=== PATIENT | male | born 1950 | race Caucasian/White ===

== ENCOUNTER 2017-08-04 09:00 | Outpatient (RCR) | payer MEDICARE, SELFPAY ==
--- NOTE | 2017-08-09 10:22 | HP.OTEVAL_ITS ---
Patient's Visit Information ANJEL LOPEZ is a 66 year old M, referred to Occupational Therapy by Bob Serna MD,, with a diagnosis of BLE lymphedema. Date of Evaluation: 08/04/17 Occupational Therapist: Carmen Pablo, DAISHAR/Morgan, CHT - Subjective Subjective: pt states he has had swelling for several years- pt states he just got a lift recliner and that sitting in the recliner has helped decrease his swelling. pt states he has aides that assist him with wraps to his LE. - Objective Objective/Observation: Pt states he has aids to assist with bathing and dressing in the AM and PM-. pt states staff does his laundry and cleaning- pt states meals are provided 3x a day- pt states he does use his lift recliner for sleeping. - Lymphedema (Circumferential Measure) Mid-foot: Right 23cm left 25cm Ankle: Right 30cm left 32cm Lower calf: Right 32cm left 35cm Largest calf: Right 48cm left 48cm Below knee: Right 45cm left 46cm - Lower Limb Functional Index Lower Extremity Functional Score: 7 - Goals Demonstrate adequate knowledge skin care/prec by 2nd week: Yes Demonstrate adequate knowledge therapeutic exercises by d/c: Yes Select approp compression garment w/donning/care/wear by d/c: Yes Voice need to replace compression garment every 4-6mo by dc: Yes - Rehabilitation General Assessment: pt demo. need for skilled lymphedema tx. and ed.. for pt to ind. mtg his lymphedema. Tx will focus on ed. pt on lymphedema mtg and compression devices to assist with mtg BLE swelling- pt was ed on compression device as medi, farrow wraps and lymphapress to assist pt in mtg. of his lymphedema- pt states the use of the pump would make it difficult for him to go to the bathroom and he is not interested in the use of this device at this time due to this reason. Rehabilitation Potential: Questionable - Anticipated Interventions Anticipated Interventions: Education re Diagnosis, Manual Lymph Drainage, Education re Life-long lymphedema Management, Education re Skin Care and Precautions, Education re Correct Donning Tech,Care&Wearing Sched Comp Garments , Caregiver Training, Home Program - Visit Plan Frequency: 1x/Week Duration: 3 Weeks General Plan: Tx will focus on ed. pt on lymphedema mtg and compression devices to assist with mtg BLE swelling- pt was ed on compression device as medi, farrow wraps and lympha-press vaso pump to assist pt in mtg. of his lymphedema- pt states the use of the pump would make it difficult for him to go to the bathroom and he is not interested in the use of this device at this time due to this reason. TEXT: Thank you for the opportunity to evaluate your patient. For Medicare and Medicare HMO plans, please review the plan of care and approve it. It will need to be FAXED BACK to us at [phone] for Medicare purposes. Please let me know if there are questions or concerns regarding this plan of care. Physician Signature: Date:
== END 2017-08-11 09:00 | disposition home or self-care (01) ==
LOC: OT 09:16
PROVIDERS: Visit Provider Surgery Vascular Surgery
DX: I89.0 Lymphedema, not elsewhere classified (principal)
CPT/HCPCS: 97166; 97530 ×2; G8978; G8979

== ENCOUNTER 2017-12-01 14:00 | Outpatient (RCR) | payer MEDICARE, SELFPAY ==
--- NOTE | 2017-10-15 13:08 | HP.OTEVAL_ITS ---
Patient's Visit Information ANJEL LOPEZ is a 66 year old M, referred to Occupational Therapy by Becka Hines, ZACKERY,BACILIO, with a diagnosis of Generalized weakness. Date of Evaluation: 10/15/17 Occupational Therapist: Ginger Leon - Subjective Subjective: Pt., Anjel, arrived noted he has been feeling weak and shaky. He is poor report of what may be causing weakness and PMHx but as session progressed he opened up more. Notes that thing caused weakness. He notes that he sometimes falls because he gets light headed and deals with depression. He explained he has gotten weaker over the last few months. He has had epilepsy since which is controlled by medications. Heexplained he has L hand pain from arthritis and has been diagosned with gout. He is R hand dominant. - Pain Left Hand 0 Pain Intensity Range: 10 - Objective Objective/Observation: Kyphotic, increased SOB with speaking,a nd increased tremors with intended movements. - ROM Shoulder: WFL Elbow: WFL Forearm: WFL Wrist: Flex R 0-66, L 0-63; ext R 0-36, L 0-59; increased L wrist pain all mvmts MP: WFL PIP: WFL DIP: WFL - Strength Shoulder: R 4-/5 L 3+/5 Elbow: R 4/5, L 4/5 Forearm: WFL Linoleum Layer Apprentice: R 54, L 60 Lateral Pinch: R 14, L 11 Tripod Pinch: R 8 , L 7 Tip-to-Tip Pinch: R 8, L 9 - Sensation Thumb: R 3.22 L 3.84 Index: R 3.22 L 2.83 Middle: R 3.22 L 2.83 Ring: R 3.22 L 2.83 Little: R 3.22 L 3.84 - Movement Movement Comments: Increased shakiness. FInger to nose intact. Appears to potentially be realted to weakness at this time. Shakiness to be monitored. - DASH-Disabilities of Arm, Shoulder& Hand DASH Sum: 90 - Goals Goal:: Anjel to increase B client account assistant strength between 15-20 lbs through FMC and UE strengthening 2/3 trials 75% of the time to promote increase strength and endurance for ADL/IADls by time of d/c. Goal:: Anjel to related 1/10 pain in L hand with functional movement to promote increased ROM and strength 4/5 trials 80% of the time by d/c. Goal:: Anjel to be mod I to practice energy conservation and joint protection techniques 4/5 trials to promote increased participation in ADL/IADLs by time of d/c. Goal:: Anjel to be mod I to complete HEP for B UE and hands to promote increased FMC, strength, adn endurance to promote participation in fx activities 2/3 trials 75% time by d/c. Goal:: Anjel to be (i) to complete correct use and placement of w/w during ADL/ IADLs with 1-2x cues to promote balance, safety, and participation in fx acitvities 4/5 trials 80% of the time by d/c. - Rehabilitation General Assessment: Anjel arrived for OT evaluation on this date. He has PT evaulation next week. He presents with decreased endurance and increased fatigue with fx activities. He needed w/c transport to OT area after walking 50 feet and becoming increasingly SOB and fatigued. His ROM and strength are WFL but strength is decreased as exhibited through shakiness. Needed assistance completing DASH secondary to shakiness. He notes handwriting is very difficult at this time. [place] [facility] [facility] staff help with medication management, ADLs , and IADls as needed. He no longer cooks, or drives. He notes he has fallen a few times the past few months and uses w/w for ambulation. OT to work on increasing functional activity tolerance to promote increased ROM and strength for ADL/IADls. Rehabilitation Potential: Good - Anticipated Interventions Anticipated Interventions: A/AAROM/PROM, Strengthening, Edema Control, Modalities, Orthoses, Joint Protection/Energy Conservation, Fine Motor Coord/ Braden, ADL Training, Education re assistive Equipment, Home Program - Visit Plan Frequency: 1-2x /Week Duration: 4 Weeks General Plan: Anjel to recieve OT services to promote increased (I) for ADl/ IADls. Ot to work on increasing UE strengthening to promote endurance and functional activities tolerated. Modalities to be used as needed to help decrease L hand pain. TEXT: Thank you for the opportunity to evaluate your patient. For Medicare and Medicare HMO plans, please review the plan of care and approve it. It will need to be FAXED BACK to us at [phone] for Medicare purposes. Please let me know if there are questions or concerns regarding this plan of care. Physician Signature: Date:
--- NOTE | 2017-10-19 15:47 | HP.PTEVAL ---
Patient's Visit Information ANJEL LOPEZ is a 66 year old M referred to Physical Therapy by ZACKERY De Luna NP.THOWAR with a diagnosis of weakness. Date of Evaluation: 10/19/17 Physical Therapist: Lesley Dockery - Visit Plan Frequency: 2x /Week Duration: 4 Weeks Plan: Focus on LE strength, balance and functional mobility - Subjective Subjective: Patient reports that he has had home therapy but not outpatient physical therapy. Feels like he has a hard time getting around. He is tired and winded but has no pain. Lives in [facility]- lives on the 3rd floor and takes the elevator. Lives alone with his cat. Uses the cafeteria and has people that come in and help- do laundry and cleaning. Plans to use the van or his sister can take him to/from apt but he is not driving. Reports using the walker for a long time- over 10 years. Uses it in his apt as well as when he goes into the community. Does not have problems negotiating his apartment but gets winded when he goes to far. Goals for therapy is to be able to walk on his own. Fell 4-5 x in 2017. Has not fallen in 2018. Reports falling backwards mostly. Has a shower seat and has an aide who helps him shower. Had some images taken last year- had ultrasounds on bilateral LE yesterday. PMHx/Meds: in the chart - Objective Posture: POOR- FH, RS- can not correct with verbal or tactile cueing. Gait: severly antalgic- FWW very far in front of him shuffling pattern. ROM: WFL. Strength: Ankle: 4/5, Knee: 5/5, Hip: 4/5 throughout Core: poor. Balance: poor- standing and dynamic - Goals Goal 1:: Patient will be I with HEP and progression Goal Time Frame: 4-6 Weeks Goal 2:: Patient will ambulate >300 feet with FWW safely without SOB Goal Time Frame: 4-6 Weeks Goal 3:: Patient will demo 5/5 strength in LE Goal Time Frame: 4-6 Weeks Goal 4:: Patient will demo fair standing balance Goal Time Frame: 4-6 Weeks - Rehabilitation Potential Physical Therapy Diagnosis: Patient presents with hypomobility- he has decreased strength and muscular endurance leading to abnormal gait, poor balance and functional mobility deficits - Anticipated Interventions Patient/Client Instruction: Educate patient on: Benefits of Fitness Program For the Purpose of:: To improve performance and independence with ADL's Therapeutic Exercise to Include: Strength training, Endurance training, Balance training, Coordination, Postural training, Flexibilty training, Gait and locomotor training, Dynamic Lumbar Stabilization For the Purpose of:: To improve muscle performance and motor function Thank you for the opportunity to evaluate your patient. For Medicare and Medicare HMO plans, please review the plan of care and approve it. It will need to be FAXED BACK to us at [phone] for Medicare purposes. Please let me know if there are questions or concerns regarding this plan of care. Physician Signature: Date:
--- NOTE | 2017-11-17 14:46 | OTREVAL_ITS ---
Becka Hines, STUDENT FINANCE SPECIALISTVinayC, BACILIO It has been my pleasure to treat ANJEL LOPEZ over the last 8 visits for Generalized weakness. Please see the progress note below for an update on the occupational therapy plan of care! Subjective: Pt. arrived and noted he was voted Jensen[employer] Edward!. Noted he just had OT today. 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 is able to complete 150 Ft. He is progressing with strengthening tasks at this time. Plan Frequency: 1-2x /Week Duration: 4 Weeks Plan: continue POC or 2x next week, 1x folllowing week. Work on increasing compliance with theraband exercises. He will continue to promote increased ROM and strength. Goals - Goals Goal:: Anjel to increase B dry paste supervisor strength between 15-20 lbs through FMC and UE strengthening 2/3 trials 75% of the time to promote increase strength and endurance for ADL/IADls by time of d/c. Goal:: Anjel to related 1/10 pain in L hand with functional movement to promote increased ROM and strength 4/5 trials 80% of the time by d/c. Goal:: Anjel to be mod I to practice energy conservation and joint protection techniques 4/5 trials to promote increased participation in ADL/IADLs by time of d/c. Goal:: Anjel to increase B UE strength to 4+/5 to promote increased B UE strength and endurance for ADl/IADLs by time of d/c. Goal:: Anjel to be mod I to complete HEP for B UE and hands to promote increased FMC, strength, adn endurance to promote participation in fx activities 2/3 trials 75% time by d/c. Goal:: Anjel to be (i) to complete correct use and placement of w/w during ADL/ IADLs with 1-2x cues to promote balance, safety, and participation in fx acitvities 4/5 trials 80% of the time by d/c. Anticipated Interventions Anticipated Interventions: A/AAROM/PROM, Strengthening, Edema Control, Modalities, Orthoses, Joint Protection/Energy Conservation, Fine Motor Coord/ Braden, ADL Training, Education re assistive Equipment, Home Program Please do not hesitate to contact me at [phone] by phone or Fax: if you have questions or concerns regarding this new plan of care! Sincerely, Ginger Leon
--- NOTE | 2017-11-24 10:24 | HP.PTDCSUM ---
HP - PT D/C Summary It has been my pleasure to treat ANJEL LOPEZ under orders from Becka Hines, ZACKERY, BACILIO for the diagnosis of weakness for a total of 7 visit(s). Discharge Date: Please see the following information for a summary of their discharge status. - Subjective Subjective: patient reports no falls lately and he feels stronger. Is still working with OT but feels he can do PT indpendently at home. no pain today. - Objective Objective/Function: Posture: FH, RS, Increased kyphosis. Gait: antalgic- shuffling gate- wide ALEX. HR/TR: able. balance: weight shifting. Strength: Ankle: 5/5, knee: 5/5, hip: 4+/5 - Goals Goal 1:: Patient will be I with HEP and progression Goal Progress: Goal Met Goal 2:: Patient will ambulate >300 feet with FWW safely without SOB Goal Progress: Progressing Goal 3:: Patient will demo 5/5 strength in LE Goal Progress: Progressing Goal 4:: Patient will demo fair standing balance Goal Progress: Progressing - Plan Plan: Discharge to I HEP - D/C Information If there are questions or concerns regarding this patient's physical therapy, please feel free to call me at [phone]. Thank you for the referral of this patient. Sincerely, Lesley Dockery
--- NOTE | 2017-12-01 14:37 | HP.OTDCSUM ---
HP - OT D/C Summary It has been my pleasure to treat ANJEL LOPEZ under orders from Becka Hines, ZACKERY, BACILIO for the diagnosis of Generalized weakness for a total of 11 visit(s). Please see the following information for a summary of their discharge status. - Objective Objective/Function: Reassessment completed today. He has progressed with therapy from time of evaluation and meant some goals.Strength measurements are as follows: shoulder R 4/5, L 4-/5, ; biceps R 3+/5, L 3+/5; Triceps R 4+/5, L 4+/5. Strength assessment for hands as follows: boiler blower R 70, L 54; lateral R 10, L 10; three jaw R 7, L 6; tip pinch R 6, L 6. ROM is WFL. He appears to present with some CMC arthitis of L thumb and presents with decreased strength as results when it is aggrevating him. Pain is minimal at this time and consisently over past few sessions. Pt. reported feeling the following with monofilament test: R 2nd 2.83, 3rd 2.83, 4th 2.83, 5th 2.83, thumb 3.22; L 2nd 2.83, 3rd 2.83, 4th 2.83, 5th 3.22, thumb 2.83. - Goals Patient Goals: Regain Mobility, Regain Strength, Decrease Pain, Improve Fine Motor Skills, Use Hand/Wrist/Arm Normally Again, Increase ROM, Be More Independent in ADLS, Resume Former Household Responsibilities (Cooking,Cleaning,Yard, etc.), Resume Hobbies Goal:: Anjel to increase B boiler blower strength between 15-20 lbs through FMC and UE strengthening 2/3 trials 75% of the time to promote increase strength and endurance for ADL/IADls by time of d/c. Goal:: Anjel to related 1/10 pain in L hand with functional movement to promote increased ROM and strength 4/5 trials 80% of the time by d/c. Goal:: Anjel to be mod I to practice energy conservation and joint protection techniques 4/5 trials to promote increased participation in ADL/IADLs by time of d/c. Goal:: Anjel to increase B UE strength to 4+/5 to promote increased B UE strength and endurance for ADl/IADLs by time of d/c. Goal:: Anjel to be mod I to complete HEP for B UE and hands to promote increased FMC, strength, adn endurance to promote participation in fx activities 2/3 trials 75% time by d/c. Goal:: Anjel to be (i) to complete correct use and placement of w/w during ADL/IADLs with 1-2x cues to promote balance, safety, and participation in fx acitvities 4/5 trials 80% of the time by d/c. - Plan Plan: Pt. to be d/c'd today. He is to call with questions/concerns. He is to continue HEP to promote and maintain strength and endurance. He continues to have increased SOB and is to monitor and talk to doctor if he feels it is getting sereve enough. He is to continue HEP and walking to promote decreased SOB and promote increased endurance. - D/C Information If there are questions or concerns regarding this patient's occupational therapy, please fell free to call me at [phone]. Thank you for the referral of this patient. Sincerely, Ginger Leon
== END 2017-12-01 19:00 | disposition home or self-care (01) ==
LOC: OT 14:00
PROVIDERS: Visit Provider Nurse Practitioner Adult Health
DX: R41.89 Other symptoms and signs involving cognitive functions and awareness (principal); M62.81 Muscle weakness (generalized); M40.209 Unspecified kyphosis, site unspecified; R06.09 Other forms of dyspnea
CPT/HCPCS: 97110; 97162; 97166; 97530; G8978; G8979

== ENCOUNTER → 2018-03-31 10:50 | Outpatient (CLI) | payer MEDICARE, MEDICAID, SELFPAY ==
[2018-03-31 11:00] VITALS: PULSE 100; PULSE 119; PULSE 123; PULSE 140; PULSE 143; PULSE 147; PULSE 153; O2SAT 91; O2SAT 95; O2SAT 96; O2SAT 97
--- NOTE | 2018-03-31 13:50 | WT_ITS ---
PSN 6 Minute Walk Test - 6 Minute Walk Test 6 Minute Walk Test: 6 Minute Walk Test PSN:6-Minute Walk Test Start: 03/31/18 11: 19 Freq: Status: Active Protocol: RESP.6MINW Document 03/31/18 11:00 AMARIS (Rec: 03/31/18 11:23 JLA [id number]) 6 Minute Walk Test Date Performed 03/31/18 Time Performed 11:00 Height 5 ft 3 in Weight: 117.934 kg Weight in Pounds 260.[address]: Guy Harris Assistive device used: Walker Pre-test Oxygen Delivery Method Room Air Pulse Ox (%) 96 Pulse Rate (60-100 beats/min) 100 Dyspnea Spencer Scale (0-10) 3 Exertion Spencer Scale (6-20) 6 1st minute Oxygen Delivery Method Room Air Pulse Ox (%) 91 Pulse Rate (60-100 beats/min) 123 H 2nd minute Oxygen Delivery Method Room Air Pulse Ox (%) 95 Pulse Rate (60-100 beats/min) 140 H Number of Rests Taken 1 Reported Symptoms Increased Work of Breathing 3rd minute Oxygen Delivery Method Room Air Pulse Ox (%) 96 Pulse Rate (60-100 beats/min) 143 H Number of Rests Taken 1 4th minute Oxygen Delivery Method Room Air Pulse Ox (%) 96 Pulse Rate (60-100 beats/min) 147 H Number of Rests Taken 1 5th minute Oxygen Delivery Method Room Air Pulse Ox (%) 97 Pulse Rate (60-100 beats/min) 143 H 6th minute Oxygen Delivery Method Room Air Pulse Ox (%) 95 Pulse Rate (60-100 beats/min) 153 H Dyspnea Spencer Scale (0-10) 3 Exertion Spencer Scale (6-20) 15 Post-test Oxygen Delivery Method Room Air Pulse Ox (%) 96 Pulse Rate (60-100 beats/min) 119 H Full Laps Walked 4 Partial Lap, Number of Tiles Walked 0 Total Distance Walked (ft) 236 - Interpretation Interpretation: The patient was able to ambulate only 236 feet over the course of 6 minutes on room air with the assistance of a walker and for breaks. The patient experienced significant desaturation as low as 91% with persistent tachycardia throughout testing. Patient's peak heart rate was noted at 153 bpm. These findings are consistent with a cardiovascular limitation to exercise tolerance. - Recommendations Recommendations: No supplemental oxygen is indicated at this time. Patient would benefit from cardiovascular evaluation.
== END ==
PROVIDERS: Visit Provider Internal Medicine Critical Care Medicine
DX: E66.9 Obesity, unspecified (principal); R06.09 Other forms of dyspnea
CPT/HCPCS: 94618

== ENCOUNTER → 2018-08-15 12:22 | Outpatient (CLI) | payer MEDICARE, SELFPAY | PROVIDERS: Family Provider Nurse Practitioner Adult Health; PCP Nurse Practitioner Adult Health; Visit Provider Internal Medicine Critical Care Medicine | DX: G47.19 Other hypersomnia (principal) | CPT/HCPCS: 94762 ==

== ENCOUNTER → 2018-10-06 14:56 | Outpatient (CLI) | payer MEDICARE, MEDICAID, SELFPAY ==
--- NOTE | 2018-10-06 14:58 | ECHOCS_ITS ---
Reason For Study: DYSPNEA/SOB Procedure This was a 2D Doppler, Color Flow transthoracic echocardiogram. The study was technically difficult. Exam performed with patient in supine position. Contrast injection was performed. Exam performed in department. Left Ventricle Normal LV size. Left ventricular systolic function is normal. The estimated ejection fraction is 65 %. No evidence for diastolic dysfunction. No regional wall motion abnormalities noted. Right Ventricle Mildly dilated right ventricle. Normal systolic function. Atria Normal left atrium. Normal right atrium. No doppler evidence for ASD. Mitral Valve There is no mitral annular calcification. Normal mitral valve. Tricuspid Valve Normal tricuspid valve. Trivial tricuspid valve insufficiency. Unable to estimate RV systolic pressure/pulmonary artery pressure due to technically difficult study. Aortic Valve The aortic valve is not well visualized. Pulmonic Valve The pulmonic valve is not well visualized. Great Vessels Normal sized aortic root. Pericardium/Pleural No pericardial effusion. Medication 22 gauge I.V. with prn adaptor inserted into right arm. Diluted definity 4.5ml given slow IV push to enhance endocardial definition. MMode/2D Measurements & Calculations LVIDd: 4.1 cm IVSd: 0.97 cm Ao root diam: 3.2 cm LVIDs: 2.8 cm LVPWd: 0.92 cm RVDd: 4.5 cm FS: 31.2 % LAV(MOD-bp): 32.8 ml LVAd ap4: 22.6 cm2 SV(MOD-sp4): 31.9 ml LAV(MOD-bp) Indexed: 16.3 ml/m2 EDV(MOD-sp4): 58.3 ml LAV(MOD-sp2): 25.8 ml EDV(sp4-el): 59.8 ml LAV(MOD-sp4): 35.4 ml LVAs ap4: 14.1 cm2 ESV(MOD-sp4): 26.4 ml ESV(sp4-el): 27.8 ml EF(MOD-sp4): 54.7 % EF(sp4-el): 53.5 % SV(sp4-el): 32.0 ml LA A4 area: 16.3 cm2 LA dimension(2D): 3.5 cm RA A4 area: 15.4 cm2 Time Measurements MV dec time: 0.17 sec Doppler Measurements & Calculations MV E max abiel: 58.4 cm/sec Lat Peak E' Abiel: 11.6 cm/sec Med Peak E' Abiel: 8.3 cm/sec MV A max abiel: 73.0 cm/sec E/E' lat: 5.0 E/E' med: 7.1 MV E/A: 0.80 Ao V2 max: 121.2 cm/sec LV V1 max: 101.3 cm/sec PA V2 max: 112.2 cm/sec Ao max P.9 mmHg LV V1 max P.1 mmHg Interpretation Summary The study was technically difficult. Contrast injection was performed. Left ventricular systolic function is normal. The estimated ejection fraction is 65 %. Mildly dilated right ventricle. Trivial tricuspid valve insufficiency. Unable to estimate RV systolic pressure/pulmonary artery pressure due to technically difficult study. No evidence for diastolic dysfunction. Ordering Physician: Marian Tomas Referring Physician: Marian Tomas Performed By: Kristy Bloom RDCS
== END ==
PROVIDERS: Family Provider Nurse Practitioner Adult Health; PCP Nurse Practitioner Adult Health; Referring Provider Nurse Practitioner Acute Care; Visit Provider Nurse Practitioner Acute Care
DX: R06.02 Shortness of breath (principal)
CPT/HCPCS: 93306; Q9957; A4216; C8929

== ENCOUNTER 2018-11-10 12:04 | Emergency (ER) | payer MEDICARE, SELFPAY ==
[2018-11-09 12:49] VITALS: BMI 42.7
[2018-11-10 12:05] VITALS: BP 141/85; PULSE 102; RESP 16; TEMP 36.9; O2SAT 91; BMI 44.2
--- NOTE | 2018-11-10 13:00 | CT_ITS ---
STUDY: CT BRAIN WITHOUT CONTRAST REASON FOR EXAM: Male, 68 years old. Increased weakness and fatigue. Near syncopal episode. History of epilepsy. History of colon carcinoma. RADIATION DOSAGE (If Supplied By Facility): CTDIvol = ( 44.99 ) mGy, DLP = ( 829.85 ) mGycm TECHNIQUE: Transaxial CT imaging of the brain was performed without administration of intravenous contrast material. Individualized dose optimization techniques were used for this CT. COMPARISON: Comparison is made with prior study dated November 05, 2016. FINDINGS: Normal soft tissue structures. Normal calvarium. There is disproportionate enlargement of the lateral and third ventricles, as compared to the extra-axial spaces. The findings suggest normal pressure hydrocephalus (NPH). There are areas of decreased attenuation within the white matter tracts of the supratentorial brain, consistent with microvascular disease changes. Normal basal ganglia and thalami. Normal brainstem. There is mild cerebellar atrophy. There is no intracranial hemorrhage. There are no findings of an acute ischemic infarction. Normal visualized paranasal sinuses. CT/Brain/Head without Contrast IMPRESSION: Findings suggestive of normal pressure hydrocephalus. There has been essentially no change. Electronically Signed: Pieter Lynn MD at 14:18 EST , Service support ,
--- NOTE | 2018-11-10 13:00 | EKG12_ITS ---
Test Reason : GENERAL ILLNESS Blood Pressure : / mmHG Vent. Rate : 090 BPM Atrial Rate : 090 BPM P-R Int : 136 ms QRS Dur : 090 ms QT Int : 344 ms P-R-T Axes : 046 -36 027 degrees QTc Int : 420 ms Normal sinus rhythm Left axis deviation Minimal voltage criteria for LVH, may be normal variant Abnormal ECG Confirmed by CAROLINE MUNOZ, ANJU ([id number]), editorial specialist ALEXUS CANTOR ([id number]) on 11/14/2018 10:37:22 AM Referred By: PAMELLA Confirmed By:ANJU VELAZQUEZ MD
--- NOTE | 2018-11-10 13:00 | RAD_ITS ---
STUDY: X-RAY CHEST REASON FOR EXAM: Male, 68 years old. Hypoxia. TECHNIQUE: Single AP portable view of the chest. COMPARISON: Comparison is made with prior study dated April 08, 2017. FINDINGS: The lungs are clear and expanded. Scattered calcified granulomas. There is no demonstrated pleural abnormality. There is mild cardiac enlargement. Normal mediastinum and crissy. Normal visualized pulmonary arteries. There is atherosclerotic tortuosity of the aortic arch and descending thoracic aorta. There are diffuse degenerative changes of the visualized thoracic spine. Normal visualized ribs, clavicles, and shoulders. There is no demonstrated abnormality of the visualized soft tissue structures of the upper abdomen. RAD/Chest 1 View (Portable) IMPRESSION: Mild cardiomegaly. The lungs are clear. Electronically Signed: Pieter Lynn MD at 13:40 EST , Service support ,
[2018-11-10 13:28] LABS: Absolute Lymphocyte Count 2.17 X10^3/ul (0.83-4.51); Absolute Neutrophil Count 2.8 X10^3/uL (2.0-7.7); Basophil# 0.02 X10^3/uL; Basophil% 0.3 % (0-1); Eosinophil# 0.06 X10^3/uL; Hematocrit 41.4 % (40-54); Hemoglobin 13.5 g/dl (13.0-16.5); Lymphocyte # 2.17 X10^3/ul (4.0); Lymphocyte % 35.7 % (19-41); Mean Corp Hgb Conc 32.6 g/gl (32-36); Mean Corpuscular Hgb 31.4 pg (27.0-32.0); Mean Corpuscular Volume 96.3 fL (80-94); Mean Platelet Vol. 8.3 fl (6.2-12.0); Monocyte% 16.4 % (0-10); Neutrophil # 2.78 X10^3/uL (2.7-7.7); Neutrophil % 45.8 % (47-70); Platelet Count 132 K/mm3 (150-450); RBC Distribution Width CV 13.6 % (11.6-14.6); RBC Distribution Width SD 47.3 fl (35.1-43.9); White Blood Count 6.1 K/mm3 (4.4-11.0)
[2018-11-10 13:29] LABS: POSITIVE COUNT NO; POSITIVE DIFFERENTIAL NO; POSITIVE MORPHOLOGY NO
[2018-11-10 13:50] LABS: Anion Gap 9 (5-15); BUN 16 mg/dL (7-18); BUN/Creat Ratio 19.7 RATIO (10-20); Calcium,Total 9.3 mg/dL (8.5-10.1); Chloride 107 mmol/L (98-107); Creatinine, Serum 0.81 mg/dL (0.70-1.30); EST Glomerular Filtration Rate 100 mL/min (>60); Est Glom Filt Rate - Afr Amer 121 mL/min (>60); Estimated Creatinine Clearance 69.27 ml/min; Glucose 108 mg/dL (74-106); Sodium Level 147 mmol/L (136-145)
[2018-11-10 14:37] VITALS: BP 117/76; PULSE 69; RESP 15; O2SAT 96
[2018-11-10 14:39] LABS: Bacteria 0 SEEN /hpf (None Seen); Mucous, Urine 0 SEEN /hpf (<or=2+); Red Blood Cells-Urine 0 SEEN /hpf (0-5); Squamous Epithelial Cells - UA 0 SEEN /hpf (0-5); White Blood Cells 0 SEEN /hpf (0-5)
[2018-11-10 14:41] LABS: Color, Urine Yellow (Yellow); Glucose, Dipstick Normal (Normal); Ketone-Dipstick Negative (Negative); Leukocyte Esterase-Dipstick Negative /ul (Negative); Nitrite-Dipstick Negative (Negative); Occult Blood-Urine Negative /ul (Negative); Protein-Dipstick Negative (Negative); Urine Bilirubin Dipstick Negative (Negative); Urine Clarity Clear (Clear); Urine Urobilinogen Normal (Normal)
--- NOTE | 2018-11-10 15:16 | ED.VISSUMM ---
- ER Visit Summary Date of Service: 11/10/18 Chief Complaint: Weakness History of Present Illness: The patient is a 68 M who presents from [facility]. He planes of generalized weakness. He was also found to be tachycardic and he had some near syncope and nausea. His pulse ox was 90% on room air. The patient is full code. On arrival here, he has no complaints. Denies any pain. Denies cough or sputum. Denies fevers. Denies any GI or urinary symptoms. Denies any recent seizures. Denies any injuries. Physical Examination: Afebrile and vital signs unremarkable. 96% on room air. Alert and oriented. No acute distress. Head and neck atraumatic. Heart regular rate and rhythm. Lungs clear. Abdomen soft and nontender. Moves all extremities. Test Results: KG showed sinus rhythm rate of 90. Chest x-ray showed cardiomegaly but no other acute findings. CT brain showed NPH, similar to previous CT in 2017. Platelets 132 otherwise CBC normal. Sodium 147 and glucose 108. Urinalysis normal. Troponin normal. Emergency Department Course and Treatment: Patient treated with fluid bolus while awaiting results. He was monitored. No hypoxia noted. Vitals stable. Patient had no further symptoms or changes on reevaluation. He is requesting discharge. His workup here was unremarkable. Vitals are normal and stable. No new or different symptoms. No other concerning findings. I believe the safest course of action is discharge back to his facility. Monitor for new or worsening issues. Return if any issues arise. Treatment Plan: As above Disposition: Discharge Impression: 1. Generalized weakness This note was generated with [employer] dictation software. It may contain incorrect words, spelling, and punctuation that were not noted in review of the chart prior to signing ED Disposition - Plan for ED Patient: Referrals: Becka Hines, MERARY-C [Primary Care Provider] -
--- NOTE | 2018-11-10 15:20 | ED.DCSUM_ITS ---
- ER Visit Summary Date of Service: 11/10/18 Chief Complaint: Weakness History of Present Illness: The patient is a 68 M who presents from [facility]. He planes of generalized weakness. He was also found to be tachycardic and he had some near syncope and nausea. His pulse ox was 90% on room air. The patient is full code. On arrival here, he has no complaints. Denies any pain. Denies cough or sputum. Denies fevers. Denies any GI or urinary symptoms. Denies any recent seizures. Denies any injuries. Physical Examination: Afebrile and vital signs unremarkable. 96% on room air. Alert and oriented. No acute distress. Head and neck atraumatic. Heart regular rate and rhythm. Lungs clear. Abdomen soft and nontender. Moves all extremities. Test Results: KG showed sinus rhythm rate of 90. Chest x-ray showed cardiomegaly but no other acute findings. CT brain showed NPH, similar to previous CT in 2017. Platelets 132 otherwise CBC normal. Sodium 147 and glucose 108. Urinalysis normal. Troponin normal. Emergency Department Course and Treatment: Patient treated with fluid bolus while awaiting results. He was monitored. No hypoxia noted. Vitals stable. Patient had no further symptoms or changes on reevaluation. He is requesting discharge. His workup here was unremarkable. Vitals are normal and stable. No new or different symptoms. No other concerning findings. I believe the safest course of action is discharge back to his facility. Monitor for new or worsening issues. Return if any issues arise. Treatment Plan: As above Disposition: Discharge Impression: 1. Generalized weakness This note was generated with [employer] dictation software. It may contain incorrect words, spelling, and punctuation that were not noted in review of the chart prior to signing ED Disposition - Plan for ED Patient: Referrals: Becka Hines, MERARY-C [Primary Care Provider] -
--- NOTE | 2018-11-10 15:20 | ED.DEP ---
ED Disposition - Plan for ED Patient: Instructions: ED Weakness [facility] Referrals: Becka Hines, AGRICULTURAL AND FORESTRY SUPERVISOR-C [Primary Care Provider] -
--- NOTE | 2018-11-10 15:21 | DCINST.ED_ITS ---
ED Disposition - Plan for ED Patient: Instructions: ED Weakness [facility] Referrals: Becka Hines, BEFORE SCHOOL-C [Primary Care Provider] -
[2018-11-10 16:14] VITALS: RESP 18
== END 2018-11-10 16:15 | disposition home or self-care (01) ==
LOC: ED 13:42
PROVIDERS: Emergency Provider Emergency Medicine; Family Provider Nurse Practitioner Adult Health; PCP Nurse Practitioner Adult Health
DX: R53.1 Weakness (principal); R53.83 Other fatigue; R06.00 Dyspnea, unspecified; N40.0 Benign prostatic hyperplasia without lower urinary tract symptoms; E03.9 Hypothyroidism, unspecified; K21.9 Gastro-esophageal reflux disease without esophagitis; I50.9 Heart failure, unspecified; I51.7 Cardiomegaly
CPT/HCPCS: 70450; 71045; 80048; 81001; 84484; 85025; 93005; 99285; J7040; A4216

== ENCOUNTER → 2019-03-17 14:07 | Outpatient (CLI) | payer MEDICARE, SELFPAY ==
[2019-03-17 13:02] VITALS: BMI 43.0
[2019-03-17 15:03] LABS: Valproic Acid (Depakene) Level 66 ug/mL (50-100)
[2019-03-23 15:35] LABS: KEPPRA (LEVETIRACETAM) 30.4 ug/mL (10.0-40.0)
== END ==
PROVIDERS: Family Provider Nurse Practitioner Adult Health; PCP Nurse Practitioner Adult Health; Referring Provider Psychiatry & Neurology Neurology; Visit Provider Psychiatry & Neurology Neurology
DX: G40.019 Localization-related (focal) (partial) idiopathic epilepsy and epileptic syndromes with seizures of localized onset, intractable, without status epilepticus (principal)
CPT/HCPCS: 36415; 80164; 80177

== ENCOUNTER → 2019-04-12 06:35 | Outpatient (CLI) | payer MEDICARE, MEDICAID, SELFPAY ==
[2019-03-17 13:02] VITALS: BMI 43.0
--- NOTE | 2019-04-12 06:43 | ECHOCS_ITS ---
Reason For Study: Dyspnea/SOB Procedure This was a 2D Doppler, Color Flow transthoracic echocardiogram. Technically difficult due to patients body habitus. Patient had a hard time staying in position for testing. Contrast injection was used. The study was technically difficult. Contrast injection was performed. Exam performed in department. Left Ventricle Normal LV size. Left ventricular systolic function is normal. The estimated ejection fraction is 65 %. Diastolic function is indeterminate. No regional wall motion abnormalities noted. Right Ventricle Mildly dilated right ventricle. Normal systolic function. Atria Normal left atrium. Normal right atrium. No doppler evidence for ASD. Mitral Valve There is no mitral annular calcification. Normal mitral valve. Tricuspid Valve Normal tricuspid valve. Aortic Valve The aortic valve is not well visualized. Pulmonic Valve The pulmonic valve is not well visualized. Great Vessels The aortic root is not well visualized. Pericardium/Pleural No pericardial effusion. Medication Diluted definity 3ml given slow IV push to enhance endocardial definition. MMode/2D Measurements & Calculations LVIDd: 3.6 cm IVSd: 1.1 cm LAV(MOD-sp4): 37.9 ml LVIDs: 2.6 cm LVPWd: 0.98 cm FS: 29.5 % LA A4 area: 16.2 cm2 Time Measurements MV dec time: 0.24 sec Doppler Measurements & Calculations MV E max abiel: 64.0 cm/sec Lat Peak E' Abiel: 10.5 cm/sec Med Peak E' Abiel: 9.2 cm/sec MV A max abiel: 91.9 cm/sec E/E' lat: 6.1 E/E' med: 6.9 MV E/A: 0.70 MV V2 max: 101.1 cm/sec MV P1/2t max abiel: 72.2 cm/sec Ao V2 max: 123.5 cm/sec MV max P.1 mmHg MV P1/2t: 76.3 msec Ao max P.1 mmHg MV V2 mean: 52.4 cm/sec MV dec slope: 277.4 cm/sec2 MV mean P.3 mmHg MV V2 VTI: 22.0 cm MVA(P1/2t): 2.9 cm2 LV V1 max: 116.3 cm/sec PA V2 max: 94.4 cm/sec LV V1 max P.4 mmHg Interpretation Summary The study was technically difficult. Contrast injection was performed. Left ventricular systolic function is normal. The estimated ejection fraction is 65 %. Mildly dilated right ventricle. Diastolic function is indeterminate. Ordering Physician: Tate Perez Referring Physician: Tate Perez Performed By: Alfonso Cade RCS
--- NOTE | 2019-04-12 09:53 | STRESSREP_ITS ---
Stress Test Report Date: 04-12-19 Procedure: Pharmacologic stress nuclear imaging study Indications: Shortness of breath/dyspnea on exertion Consent: Per the patient Procedure: The patient underwent pharmacologic (Regadenoson) evaluation with a peak heart rate of 115 beats per minute (76 %predicted maximal heart rate) and a peak blood pressure of 138/72 mmHg. The baseline ECG demonstrated normal sinus rhythm. The peak pharmacologic ECG demonstrated with no obvious ECG changes. There were no cardiac dysrhythmias pretest, during pharmacologic infusion, or recovery. There was no complaint of chest discomfort during pharmacologic infusion or recovery. The examination was discontinued secondary to completion of protocol. Impression: 1. Pharmacologic (Regadenoson) evaluation 2. Peak pharmacologic ECG with no obvious ECG changes. 3. There were no cardiac dysrhythmias pretest, during pharmacologic infusion, or recovery. 4. Nuclear images pending Myocardial perfusion imaging study: Technique: The patient was injected with 14.7 millicuries of technetium 99m Cardiolite and subsequently rest SPECT Cardiolite nuclear imaging was obtained in the horizontal long, vertical long, and short axis views. The patient underwent pharmacologic (Regadenoson) evaluation with a peak heart rate of 115 beats per minute (76 % percent predicted maximal heart rate) and a peak blood pressure of 138/72 mmHg. The patient was injected with 44.6 millicuries of technetium 99m Cardiolite and subsequently stress SPECT Cardiolite nuclear imaging was obtained in the horizontal long, vertical long, and short axis views. A gated Cardiolite study at peak stress was obtained. Interpretation: Rest and stress SPECT Cardiolite nuclear imaging status post realignment, normalization, and attenuation correction demonstrate relative uniform tracer uptake and myocardial perfusion appearing within normal limits. There is end systolic thickening and brightening. The gated Cardiolite study demonstrates myocardial thickening and inward wall motion. The reported LVEF is 73 %. Impression: 1. Rest and stress SPECT Cardiolite nuclear imaging demonstrate relative uniform tracer uptake and myocardial perfusion appearing within normal limits. 2. The gated Cardiolite study reports an LVEF of 73 %. This note was generated with [employer] software. It may contain incorrect words, spelling, and punctuation that were not noted in checking the note before signing.
== END ==
PROVIDERS: Family Provider Nurse Practitioner Adult Health; PCP Nurse Practitioner Adult Health; Referring Provider Internal Medicine Cardiovascular Disease; Visit Provider Internal Medicine Cardiovascular Disease
DX: R07.9 Chest pain, unspecified (principal); R06.02 Shortness of breath; E78.00 Pure hypercholesterolemia, unspecified; I10 Essential (primary) hypertension
CPT/HCPCS: 78452; 93017; 93306; A9500; Q9957; A4216; C8929; J2785

== ENCOUNTER 2019-05-10 12:28 | Emergency (ER) | payer MEDICARE, MEDICAID, SELFPAY ==
[2019-03-17 13:02] VITALS: BMI 43.0
[2019-05-10 12:33] VITALS: BP 135/71; PULSE 98; RESP 16; TEMP 37; O2SAT 93; BMI 43.2
--- NOTE | 2019-05-10 12:53 | ED.DCSUM_ITS ---
- ER Visit Summary Date of Service: 05/10/19 Chief Complaint: Routine falls at the long-term and they were concerned because his ammonia level was elevated. History of Present Illness: The patient is a 68 M with normal pressure hydrocephalus and seizures. Reportedly patient with increased falls at the [facility]. He has been seen multiple times and has had multiple CAT scans in the past. He himself denies any complaints. I did speak to the nursing facility after I initially evaluated patient. Physical Examination: Older male no acute distress. Vital signs are stable and afebrile. No signs of trauma to his head. C-spine nontender. Lungs clear to auscultation. Heart regular rhythm no murmur. Abdomen is soft and nontender. Normal bowel sounds no peritoneal signs. Pelvic girdle intact. Extremities are nontender. He can move all 4 extremities. There is no deformity. The hips are not shortened or rotated. Patient has prosthetic lower extremities bilaterally. Neurologically is awake and alert and answering questions. Test Results: CBC shows a normal white count of 6. Hemoglobin 13. Electrolytes are unremarkable normal creatinine and gap. Liver enzymes are normal. Ammonia level is only 50. Emergency Department Course and Treatment: Repeat exam at 34 is unchanged and unremarkable. He will be discharged back to the nursing facility. Treatment Plan: Fall precautions at the long-term. Disposition: Discharge Impression: Acute falls This note was generated with [employer] dictation software. It may contain incorrect words, spelling, and punctuation that were not noted in review of the chart prior to signing ED Disposition - Plan for ED Patient: Referrals: Becka Hines, MERARY-C [Primary Care Provider] -
[2019-05-10 13:12] LABS: Absolute Lymphocyte Count 1.55 X10^3/uL (0.83-4.51); Absolute Neutrophil Count 3.6 X10^3/uL (2.0-7.7); Basophil# 0.05 X10^3/uL; Basophil% 0.8 % (0-1); Eosinophil# 0.09 X10^3/uL; Eosinophils% 1.4 % (0-5); Hemoglobin 13.2 g/dL (13.0-16.5); Lymphocyte # 1.55 X10^3/ul (4.0); Lymphocyte % 24.8 % (19-41); Mean Corp Hgb Conc 33.8 g/dL (32-36); Mean Corpuscular Hgb 33.2 pg (27.0-32.0); Mean Corpuscular Volume 98.2 fL (80-94); Mean Platelet Vol. 8.8 fl (6.2-12.0); Monocyte# 0.92 X10^3/uL; Monocyte% 14.7 % (0-10); NRBC Flagged by Analyzer 0 % (0-5); Neutrophil # 3.56 X10^3/uL (2.7-7.7); Neutrophil % 56.9 % (47-70); Platelet Count 151 K/mm3 (150-450); RBC Distribution Width SD 46.6 fl (35.1-43.9); Red Blood Count 3.97 M/mm3 (4.6-6.2); White Blood Count 6.3 K/mm3 (4.4-11.0)
[2019-05-10 13:30] LABS: AST(SGOT) 26 U/L (15-37); Alanine Aminotransfer ALT/SGPT 29 U/L (16-61); Albumin, Serum 3.1 g/dL (3.2-5.0); Alkaline Phosphatase 44 U/L (45-117); Anion Gap 4 (5-15); BUN 8 mg/dL (7-18); BUN/Creat Ratio 9.2 RATIO (10-20); Bilirubin, Direct 0.15 mg/dL (0.00-0.30); Calcium,Total 8.8 mg/dL (8.5-10.1); Chloride 111 mmol/L (98-107); Creatinine, Serum 0.87 mg/dL (0.70-1.30); EST Glomerular Filtration Rate 92 mL/min (>60); Est Glom Filt Rate - Afr Amer 111 mL/min (>60); Estimated Creatinine Clearance 64.49 ml/min; Globulin 3.2 g/dL (2.2-4.2); Glucose 131 mg/dL (74-106); Potassium 4.1 mmol/L (3.5-5.1); Protein, Total 6.3 g/dL (6.4-8.2); Sodium Level 145 mmol/L (136-145)
--- NOTE | 2019-05-10 15:35 | ED.DEP ---
ED Disposition - Plan for ED Patient: Disposition: Home or Assisted Living Instructions: FALL, Uncertain Cause Referrals: Becka Hines, RODENT EXTERMINATOR-C [Primary Care Provider] - As Needed Additional Instructions: Patient needs to have fall precautions. His blood count and chemistries were unremarkable. His liver enzymes were normal. His ammonia level was slightly elevated at 50 but that is not the reason why he is falling.
[2019-05-10 16:00] VITALS: BP 120/69; PULSE 88; RESP 16; O2SAT 97
[2019-05-10 16:01] VITALS: RESP 18
--- NOTE | 2019-05-10 16:14 | ED.RN ---
REPORT CALLED TO JUDE KAYE
== END 2019-05-10 16:14 | disposition home or self-care (01) ==
PROVIDERS: Emergency Provider Emergency Medicine; Family Provider Nurse Practitioner Adult Health; PCP Nurse Practitioner Adult Health
DX: R56.9 Unspecified convulsions (principal); G91.2 (Idiopathic) normal pressure hydrocephalus; Z91.81 History of falling
CPT/HCPCS: 80048; 80076; 82140; 85025; 99285; A4216

== ENCOUNTER → 2019-05-18 14:14 | Outpatient (CLI) | payer MEDICARE, MEDICAID, SELFPAY ==
[2019-05-10 12:33] VITALS: BMI 43.2
[2019-05-23 08:38] LABS: KEPPRA (LEVETIRACETAM) 30.3 ug/mL (10.0-40.0)
== END ==
PROVIDERS: Family Provider Nurse Practitioner Adult Health; PCP Nurse Practitioner Adult Health; Referring Provider Psychiatry & Neurology Neurology; Visit Provider Psychiatry & Neurology Neurology
DX: R56.9 Unspecified convulsions (principal)
CPT/HCPCS: 36415; 80177

== ENCOUNTER 2019-06-01 12:30 | Outpatient (RCR) | payer MEDICARE, SELFPAY ==
--- NOTE | 2019-02-02 10:00 | PN_ITS ---
REASON FOR REFERRAL: The Patient is a 68 year old male referred for a clinical assessment of the Patient?s cognitive communication abilities at [facility] on 02/02/2019 due to concerns for the Patients cognitive functioning (namely memory). The Patent reports a baseline poor memory, which may have deteriorated since his prior assessment (his report was less than clear as to concerns precipitating recommendations for assessment). The Patient demonstrated rather limited interactions throughout the assessment, with little emotional output; flat effect apparent. The Patient is ambulatory, though demonstrates difficulty with use of his front wheeled walker, frequently dragging his feet and becoming quickly short of breath; unable to see upcoming objects due to the significance of his kyphotic posture. 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 He currently resides at [facility]. MEDICAL HISTORY: Seizure disorder, colon cancer, depression, hyperlipidemia, benign essential hypertension, benign prostate hyperplasia, status post hip replacement. ADDITIONAL OBJECTIVE ASSESSMENT RESULTS: 11/10/2018 CT revealed findings suggestive of normal pressure hydrocephalus; essentially no change. COGNITIVE COMMUNICATION ASSESSMENT RESULTS: Abbreviated Mental Test ? 4 (AMT-4): 4 (normal) Assessment Test for Delirium & Cognitive Impairment (4AT): 0 (normal) Cognitive Log (Cog-Log): Hunt Index of [place] in Activities of Daily Livin/6 (low functioning) Bathin Dressin Toiletin Transferrin Continence: 0 Feedin Tricia ? Mariano Instrumental Activities of Daily Living Scale (IADL): 1/8 (low functioning) A. Ability to Use Telephone: 1 B. Shoppin C. Food Preparation: 0 D. Housekeepin E. Laundry: 0 F. Mode of Transportation: 0 G. Responsibility for Own Medications: 0 H. Ability to Handle Finances: 0 Cognitive-Linguistic Quick Test (CLQT): Attention: (Cognitive Domain Score: 155, Severity Rating: mild) Memory: (Cognitive Domain Score: 117, Severity Rating: moderate) Executive Functioning: (Cognitive Domain Score: 16, Severity Rating: moderate) Language: (Cognitive Domain Score: 24, Severity Rating: mild) Visuospatial Skills: (Cognitive Domain Score: 63, Severity Rating: mild) Clock Drawing: (Score: 10, Severity Rating: mild) Composite Severity Ratin.6 (mild) RESULTS OF THE EVALUATION: Cognitive communication assessment completed this date, with the Patient presenting with Cognitive communication deficit (R41.841) presumably attributed to baseline seizure disorders vs. undiagnosed progressive etiological factors that would likely require further medical workup. RECOMMENDATIONS: Will recommend continued skilled speech-language intervention targeting improved information encoding and retrieval through establishment of external compensatory strategy training; continual formal and informal assessment of the cognitive communication profile, with goal adjustment as clinically indicated. The Patient would likely benefit from further physical therapy intervention, as the Patients suboptimal use of his assistive device (his front wheeled walker would OFTEN stretch further and further in front of the Patient while ambulating), and would quickly fatigue. Complicating factors for intervention success include the lack of functional cognitive goals (the Patient was tasked to identify functional cognitive based domains to improve upon), as the Patient appears to have limited independence, and it is unclear as to if he desires a return to independent functioning (his responses were quite brief and lacked detail), though time constraints may have further complicated this lack of clarity. FUNCTIONAL OUTCOMES: OUTCOME 1: the Patient will utilize external memory devices to facilitate improved accurate independent memory encoding and retrieval during both structured and unstructured therapeutic tasks in 2 out of 3 therapeutic sessions. OUTCOME 2: the Patient will participate in further cognitive communication assessment to determine further need and appropriateness of therapeutic intervention targeting expressive / receptive communication and higher level cognitive functioning abilities. OUTCOME 3: goal adjustment as needed. Luigi Gregory M.A., CCC-KEYLINER MBSImP Certified, LSVT Certified [facility] Speech-Language Pathology Department [email or web address]
== END 2019-06-01 19:00 | disposition home or self-care (01) ==
LOC: SP 12:30
PROVIDERS: Family Provider Nurse Practitioner Adult Health; PCP Nurse Practitioner Adult Health; Referring Provider Nurse Practitioner Adult Health; Visit Provider Nurse Practitioner Adult Health
DX: R41.841 Cognitive communication deficit (principal)
CPT/HCPCS: 92507; 92523

== ENCOUNTER 2019-06-26 15:14 | Emergency (ER) | payer MEDICARE, MEDICAID, SELFPAY ==
[2019-06-26 15:16] VITALS: BP 136/78; PULSE 85; PULSE 87; RESP 15; TEMP 36.6; O2SAT 96; O2SAT 97; BMI 41.8
[2019-06-26 16:00] VITALS: BMI 41.8
--- NOTE | 2019-06-26 16:24 | CT_ITS ---
STUDY: CT BRAIN WITHOUT CONTRAST REASON FOR EXAM: Male, 68 years old. Increased tremors. RADIATION DOSAGE (If Supplied By Facility): CTDIvol = ( 20.80 ) mGy, DLP = ( 392.06 ) mGycm TECHNIQUE: Transaxial CT imaging of the brain was performed without administration of intravenous contrast material. Individualized dose optimization techniques were used for this CT. COMPARISON: Noncontrast CT brain November 10, 2018. FINDINGS: Normal soft tissue structures. Normal calvarium. There is stable moderate cerebral atrophy with widening of the extra-axial spaces and ventricular dilatation. There may be a cavum et vergae, an anatomic variant. Normal white matter tracts of the cerebral hemispheres. Normal basal ganglia and thalami. Normal brainstem. There is stable borderline to mild cerebellar atrophy. There is no intracranial hemorrhage. There are no findings of an acute ischemic infarction. Normal visualized paranasal sinuses. CT/Brain/Head without Contrast IMPRESSION: Stable chronic involutional changes of the brain. Normal pressure hydrocephalus not excluded. No acute intracranial pathology. Electronically Signed: Angel Raygoza MD at 17:25 EDT , Service support ,
[2019-06-26 17:04] LABS: Absolute Lymphocyte Count 2.23 X10^3/uL (0.83-4.51); Absolute Neutrophil Count 3.8 X10^3/uL (2.0-7.7); Basophil# 0.03 X10^3/uL; Basophil% 0.4 % (0-1); Eosinophil# 0.05 X10^3/uL; Eosinophils% 0.7 % (0-5); Hematocrit 44.7 % (40-54); Hemoglobin 14.9 g/dL (13.0-16.5); Lymphocyte # 2.23 X10^3/ul (4.0); Lymphocyte % 32.4 % (19-41); Mean Corp Hgb Conc 33.3 g/dL (32-36); Mean Corpuscular Hgb 31.8 pg (27.0-32.0); Mean Corpuscular Volume 95.5 fL (80-94); Mean Platelet Vol. 8.3 fl (6.2-12.0); Monocyte# 0.81 X10^3/uL; Monocyte% 11.8 % (0-10); NRBC Flagged by Analyzer 0 % (0-5); Neutrophil # 3.75 X10^3/uL (2.7-7.7); Neutrophil % 54.4 % (47-70); Platelet Count 186 K/mm3 (150-450); RBC Distribution Width CV 12.6 % (11.6-14.6); RBC Distribution Width SD 44.2 fl (35.1-43.9); Red Blood Count 4.68 M/mm3 (4.6-6.2); White Blood Count 6.9 K/mm3 (4.4-11.0)
[2019-06-26 17:15] LABS: Anion Gap 6 (5-15); BUN 11 mg/dL (7-18); BUN/Creat Ratio 13.3 RATIO (10-20); Calcium,Total 9.2 mg/dL (8.5-10.1); Chloride 103 mmol/L (98-107); Creatinine, Serum 0.83 mg/dL (0.70-1.30); EST Glomerular Filtration Rate 98 mL/min (>60); Est Glom Filt Rate - Afr Amer 118 mL/min (>60); Glucose 86 mg/dL (74-106); Potassium 3.9 mmol/L (3.5-5.1); Sodium Level 141 mmol/L (136-145)
[2019-06-26 17:44] VITALS: RESP 18
[2019-06-26 17:44] LABS: Bacteria 0 SEEN /hpf (None Seen); Mucous, Urine 0 SEEN /hpf (<or=2+); Red Blood Cells-Urine 0 SEEN /hpf (0-5); Squamous Epithelial Cells - UA 0 SEEN /hpf (0-5); White Blood Cells 0 SEEN /hpf (0-5)
[2019-06-26 18:07] LABS: Color, Urine Yellow (Yellow); Glucose, Dipstick Normal (Normal); Ketone-Dipstick 50 mg/dl (Negative); Leukocyte Esterase-Dipstick 25 /ul (Negative); Nitrite-Dipstick Negative (Negative); Occult Blood-Urine Negative /ul (Negative); Protein-Dipstick Negative (Negative); Specific Gravity, Urine 1.015 (1.002-1.030); Urine Bilirubin Dipstick Negative (Negative); Urine Clarity Clear (Clear); Urine Urobilinogen Normal (Normal)
--- NOTE | 2019-06-26 18:45 | ED.VISSUMM ---
- ER Visit Summary Date of Service: 06/26/19 Chief Complaint: Tremors History of Present Illness: The patient is a 68 M who presents with tremors that have been getting worse over the past several days. Patient states the tremors are mostly in his head. Patient states that he has had is been shaking more frequently. Patient was referred to the emergency department for further evaluation of this from his extended care facility. Patient denies any paresthesias or weakness. Patient denies any chest pain or shortness of breath. Patient denies any fevers or chills. Patient denies any nausea or vomiting. Physical Examination: Vital signs are stable. Patient is afebrile. Patient is in no acute distress. Oral mucosa is pink and moist. Neck is supple. Trachea is midline. There is no JVD noted. Heart was regular rate and rhythm. Lungs are clear and equal bilateral. Abdomen is soft. Bowel sounds are normal. There is no tenderness. There is no guarding noted. Skin is warm dry. Cranial nerves II through XII are intact. There are no focal motor or sensory deficits noted. There are minimal tremors noted of the head that resolve after a few seconds. Test Results: CT scan of the brain does not show any acute intracranial abnormality. There are chronic changes noted. CBC, basic metabolic profile, urinalysis were obtained and were all normal. Emergency Department Course and Treatment: Patient was advised of his CT results and his lab results. Patient was instructed to follow-up with his primary care physician and neurologist in 1 to 2 weeks. Patient understood and was agreeable with the plan. All questions were answered. Disposition: Discharge to extended care facility Impression: Tremors This note was generated with [employer] dictation software. It may contain incorrect words, spelling, and punctuation that were not noted in review of the chart prior to signing ED Disposition - Plan for ED Patient: Disposition: Non-Skill CT/Intermediate Care Diagnosis: Tremor Instructions: Essential Tremor Disorder Referrals: Becka Hines NP-C [Primary Care Provider] - 3-5 Days
[2019-06-26 19:03] VITALS: RESP 18
== END 2019-06-26 19:27 | disposition intermediate care facility (04) ==
PROVIDERS: Emergency Provider Emergency Medicine; Family Provider Nurse Practitioner Adult Health; PCP Nurse Practitioner Adult Health
DX: R25.1 Tremor, unspecified (principal); R51 Headache; R20.2 Paresthesia of skin; M10.9 Gout, unspecified
CPT/HCPCS: 70450; 80048; 81001; 85025; 99285; A4216

== ENCOUNTER 2019-06-29 07:49 | Emergency (ER) | payer MEDICARE, MEDICAID, SELFPAY ==
[2019-06-29 07:51] VITALS: BP 134/59; PULSE 72; RESP 16; TEMP 36.4; O2SAT 94; BMI 41.8
--- NOTE | 2019-06-29 08:08 | ED.VISSUMM ---
- ER Visit Summary Date of Service: 06/29/19 Chief Complaint: Dizzy History of Present Illness: The patient is a 68 M who presents from assisted living. He complains of some dizziness today but otherwise has no symptoms. He said he would not have come in to the ED, except the nurses there called EMS. They noticed a tremor today and called EMS because they were concerned for seizure. Patient has a history of grand mal seizures. Patient is denying seizure or loss of consciousness. He has been compliant with his medications. He was seen in this emergency department 3 days ago. He had a CT of his brain as well as basic labs and a urinalysis. Results were all unremarkable except for some possible NPH. He had a Keppra level done just over a month ago which was therapeutic. Patient denies any other new symptoms or complaints. Physical Examination: Afebrile and vital signs unremarkable. Patient is alert and oriented to month, place, and person. GCS 15. Cranial nerves grossly intact. Good strength and sensation, symmetric. He has an intention tremor in his bilateral upper extremities. Heart regular. Lungs clear. Abdomen soft and nontender. Skin is unremarkable. Test Results: None performed Emergency Department Course and Treatment: Patient has some mild dizziness. He said that is the only complaint he has. It does not bother him, and he would not have come to the ED for it. He was referred to the ED by nursing for possible seizure. He has a tremor. This is not a seizure. He has no generalized or focal seizure symptoms. No loss of consciousness. No tongue biting or incontinence. No injuries or trauma. He is compliant with his medications. He is therapeutic on his Keppra based on his recent labs. Furthermore, his recent laboratory studies, urinalysis, and CT showed nothing acute three days ago. I do not have any further diagnostic testing or therapies I can offer emergently. I believe he is appropriate for outpatient follow-up. Prior to discharge, we will check a PO challenge and have the patient ambulate. Pending no further complaints, issues, or concerns by him, myself, or nursing, he will be transferred back to his assisted living facility for outpatient follow-up. Treatment Plan: As above Disposition: Discharge Impression: 1. Tremor This note was generated with [employer] dictation software. It may contain incorrect words, spelling, and punctuation that were not noted in review of the chart prior to signing ED Disposition - Plan for ED Patient: Referrals: Becka Hines, COLD STORAGE WORKER-C [Primary Care Provider] -
--- NOTE | 2019-06-29 08:12 | ED.DEP ---
ED Disposition - Plan for ED Patient: Instructions: Essential Tremor Disorder Additional Instructions: Follow up with your primary care doctor for outpatient care.
== END 2019-06-29 09:02 | disposition home or self-care (01) ==
LOC: ED 08:10
PROVIDERS: Emergency Provider Emergency Medicine; Family Provider Nurse Practitioner Adult Health; PCP Nurse Practitioner Adult Health
DX: R25.1 Tremor, unspecified (principal); I10 Essential (primary) hypertension; E78.00 Pure hypercholesterolemia, unspecified; G47.33 Obstructive sleep apnea (adult) (pediatric); N40.0 Benign prostatic hyperplasia without lower urinary tract symptoms; G40.909 Epilepsy, unspecified, not intractable, without status epilepticus
CPT/HCPCS: 99284

== ENCOUNTER 2019-07-11 10:09 | Observation (INO) | payer MEDICARE, MEDICAID, SELFPAY ==
[2019-07-11] VITALS (10 sets, daily range): BP systolic 108–131; BP diastolic 53–74; PULSE 99–111; RESP 15–21; TEMP 37.1–38.3; O2SAT 92–98; BMI 43.7; BMI 43.8; BMI 41.4
--- NOTE | 2019-07-11 10:26 | ED.RN ---
PT ASKED ME TO CALL HIS SISTER LAURENT [phone]. CALL MADE TO LAURENT, SHE IS AWARE HE IS HERE.
--- NOTE | 2019-07-11 10:27 | ED.VIS.GEN ---
History of Present Illness Chief Complaint: Weakness Detail of Chief Complaint: Diarrhea, weakness, fall Informant: Patient Onset: Days Current Severity: Mild Maximum Severity: Mild Narrative: Patient presents from assisted living with generalized weakness and diarrhea for the past 3 days. He states staff reported that he had vomited once but he does not remember. He has had low-grade fevers. He states that today he stood up and his legs were very weak and he fell to the floor. He has an abrasion across the right buttock that was previously bleeding. He does complain of some mild right hip pain. - Past Medical History (1) Benign essential HTN Status: Chronic (2) Depression Status: Chronic (3) Pure hypercholesterolemia Status: Chronic (4) Sleep apnea Status: Chronic Past Medical History - Allergies and Home Meds Allergies/Adverse Reactions: Allergies aspirin Allergy (Verified 07/11/19 10:10) cant remember rxn nickel Allergy (Verified 07/11/19 10:10) Other oxcarbazepine [From Trileptal] Allergy (Verified 07/11/19 10:10) cant remember rxn Primary Care Physician: Becka Hines, HEAD OPERATOR-C [Primary Care Provider] - Prior records reviewed: Yes Past Medical History: - - Reviewed Surgical History: noncontributory Lives: - - Assisted living Smoking Status: Never smoker - Family History Maternal Family History: Family History (Last Reviewed 03/17/19 @ 13:18 by Carmen Mohan) Mother COPD (chronic obstructive pulmonary disease) CAD (coronary artery disease) Father Cancer Heart disease Myocardial infarction CAD (coronary artery disease) Aunt CAD (coronary artery disease) Myocardial infarction Family History: Reports: No pertinent history Review of Systems General: Reports: Fever. Denies: Chills Eyes: Denies: Visual changes - bilaterally ENT: Denies: Bilateral ear pain Cardiovascular: Denies: Chest pain Respiratory: Denies: Dyspnea, Cough Gastrointestinal: Reports: Diarrhea. Denies: Abdominal pain, Nausea, Vomiting Genitourinary: Denies: Dysuria Musculoskeletal: Reports: Extremity Pain Skin: Reports: Wounds Neurological: Denies: Headache Hematologic: Denies: Easy bruising Allergy: Denies: Uticaria Physical Exam Vital Signs/Narrative: Vital Signs Temp Pulse Resp BP Pulse Ox 07/11/19 10:13 99.3 F H 111 H 20 H 108/60 93 Inital Vital Signs reviewed: Yes General: Well nourished, Well developed Head: Normocephalic ENT: Moist mucous membranes Neck: Supple Cardiovascular: Regular rhythm, Tachycardia Respiratory: No distress, CTA bilaterally Abdomen: Soft, Nontender, Normal bowel sounds Back: - - Patient has a 20 cm long superficial abrasion across the right buttock. Extremities: Tenderness - Mild tenderness of the right hip, greater trochanter. Skin: - - Abrasion as above Neurological: Alert, Oriented x3 Psychological: Normal affect Diagnostic/Tx/Re-eval Impressions Hip/Pelvis X-Ray 07/11/19 10:40 IMPRESSION: Normal x-ray examination of the pelvis and hip after hemiarthroplasty. Electronically Signed: Kuldeep Louie MD at 11:06 EDT Tel , Service support , 07/11/19 10:40 HIP, UNI W/ Pelvis 2-3 Views [RAD] Stat Laboratory Results 07/11/19 07/11/19 07/11/19 10:40 10:40 10:40 WBC 6.6 RBC 4.47 L Hgb 14.3 Hct 43.7 MCV 97.8 H MCH 32.0 MCHC 32.7 RDW Std Deviation 45.6 H RDW Coeff of Ronna 12.7 Plt Count 140 L MPV 8.7 Immature Gran % (Auto) 0.300 Neut % (Auto) 67.3 Lymph % (Auto) 15.0 L [place] % (Auto) 16.2 H Eos % (Auto) 0.9 Baso % (Auto) 0.3 Absolute Neuts (auto) 4.5 Absolute Lymphs (auto) 0.99 Nucleated RBC % 0 Sodium 143 Potassium 4.0 Chloride 110 H Carbon Dioxide 29.0 Anion Gap 4 L BUN 11 Creatinine 0.81 Estim Creat Clear Calc 66.47 Est GFR (MDRD) Af Amer 121 Est GFR (MDRD) Non-Af 100 BUN/Creatinine Ratio 13.6 Glucose 115 H Calcium 8.6 Total Bilirubin 0.50 Direct Bilirubin 0.12 AST 32 ALT 27 Alkaline Phosphatase 45 Total Protein 6.7 Albumin 3.0 L Globulin 3.7 Urine Color Urine Clarity Urine pH Ur Specific [place] Urine Protein Urine Glucose (UA) Urine Ketones Urine Occult Blood Urine Nitrite Urine Bilirubin Urine Urobilinogen Ur Leukocyte Esterase Valproic Acid 44 L 07/11/19 13:06 WBC RBC Hgb Hct MCV MCH MCHC RDW Std Deviation RDW Coeff of Ronna Plt Count MPV Immature Gran % (Auto) Neut % (Auto) Lymph % (Auto) [place] % (Auto) Eos % (Auto) Baso % (Auto) Absolute Neuts (auto) Absolute Lymphs (auto) Nucleated RBC % Sodium Potassium Chloride Carbon Dioxide Anion Gap BUN Creatinine Estim Creat Clear Calc Est GFR (MDRD) Af Amer Est GFR (MDRD) Non-Af BUN/Creatinine Ratio Glucose Calcium Total Bilirubin Direct Bilirubin AST ALT Alkaline Phosphatase Total Protein Albumin Globulin Urine Color Yellow Urine Clarity Clear Urine pH 8.0 Ur Specific [place] 1.010 Urine Protein Negative Urine Glucose (UA) Normal Urine Ketones Negative Urine Occult Blood Negative Urine Nitrite Negative Urine Bilirubin Negative Urine Urobilinogen Normal Ur Leukocyte Esterase Negative Valproic Acid - Medical Decision Making Patient was given IV fluids here. Wound on the right buttock was cleansed and dressed. At this time we do not see definitive source of infection. He has had no further diarrhea here. I am concerned about his degree of weakness after 3 days of diarrhea. He is unable to support his weight today and fell. Patient remains slightly tachycardic with a heart rate of 108. I will speak with hospitalist regarding observation overnight for hydration and evaluation by physical therapy. I discussed with the patient that he may require higher level of care if he is not able to get up and ambulate to the level where he would be safe at assisted living. He voices understanding and agreement. ED Disposition - Plan for ED Patient: Disposition: Acute Care Hospital [facility] Diagnosis: Weakness, Fall, Diarrhea Referrals: Becka Hines, HEAD OPERATOR-C [Primary Care Provider] -
--- NOTE | 2019-07-11 10:40 | RAD_ITS ---
STUDY: X-RAY - PELVIS AND RIGHT HIP REASON FOR EXAM: Male, 68 years old. Fall, hip pain. TECHNIQUE: 3 views of the pelvis and hip. COMPARISON: None. FINDINGS: There is a non-specific bowel gas pattern. Normal visualized soft tissue structures. Normal bilateral iliac wings, sacroiliac joints and visualized sacrum. Normal bilateral superior and inferior pubic rami. Normal pubic symphysis. Normal bilateral ischial tuberosities. Status post right hip hemiarthroplasty. The prosthesis appears located. No ostial lysis to suggest loosening. Normal acetabulum. Normal hip joint. RAD/HIP, UNI W/ Pelvis 2-3 Views IMPRESSION: Normal x-ray examination of the pelvis and hip after hemiarthroplasty. Electronically Signed: Kuldeep Louie MD at 11:06 EDT Tel , Service support ,
[2019-07-11 10:52] LABS: Absolute Lymphocyte Count 0.99 X10^3/uL (0.83-4.51); Absolute Neutrophil Count 4.5 X10^3/uL (2.0-7.7); Basophil# 0.02 X10^3/uL; Basophil% 0.3 % (0-1); Eosinophil# 0.06 X10^3/uL; Eosinophils% 0.9 % (0-5); Hematocrit 43.7 % (40-54); Hemoglobin 14.3 g/dL (13.0-16.5); Lymphocyte # 0.99 X10^3/ul (4.0); Mean Corp Hgb Conc 32.7 g/dL (32-36); Mean Corpuscular Volume 97.8 fL (80-94); Mean Platelet Vol. 8.7 fl (6.2-12.0); Monocyte# 1.07 X10^3/uL; Monocyte% 16.2 % (0-10); NRBC Flagged by Analyzer 0 % (0-5); Neutrophil # 4.46 X10^3/uL (2.7-7.7); Neutrophil % 67.3 % (47-70); Platelet Count 140 K/mm3 (150-450); RBC Distribution Width CV 12.7 % (11.6-14.6); RBC Distribution Width SD 45.6 fl (35.1-43.9); Red Blood Count 4.47 M/mm3 (4.6-6.2); White Blood Count 6.6 K/mm3 (4.4-11.0)
[2019-07-11] MEDS: 0.9% Normal Saline 1,000 ML 150 ML IV (11:08)
[2019-07-11 11:28] LABS: AST(SGOT) 32 U/L (15-37); Alanine Aminotransfer ALT/SGPT 27 U/L (16-61); Alkaline Phosphatase 45 U/L (45-117); Anion Gap 4 (5-15); BUN 11 mg/dL (7-18); BUN/Creat Ratio 13.6 RATIO (10-20); Bilirubin, Direct 0.12 mg/dL (0.00-0.30); Calcium,Total 8.6 mg/dL (8.5-10.1); Chloride 110 mmol/L (98-107); Creatinine, Serum 0.81 mg/dL (0.70-1.30); EST Glomerular Filtration Rate 100 mL/min (>60); Est Glom Filt Rate - Afr Amer 121 mL/min (>60); Estimated Creatinine Clearance 66.47 ml/min; Globulin 3.7 g/dL (2.2-4.2); Glucose 115 mg/dL (74-106); Protein, Total 6.7 g/dL (6.4-8.2); Sodium Level 143 mmol/L (136-145)
[2019-07-11 11:38] LABS: Valproic Acid (Depakene) Level 44 ug/mL (50-100)
[2019-07-11 13:11] LABS: Mucous, Urine 0 SEEN /hpf (<or=2+); Red Blood Cells-Urine 0 SEEN /hpf (0-5); Squamous Epithelial Cells - UA 0 SEEN /hpf (0-5)
[2019-07-11 13:17] LABS: Color, Urine Yellow (Yellow); Glucose, Dipstick Normal (Normal); Ketone-Dipstick Negative (Negative); Leukocyte Esterase-Dipstick Negative /ul (Negative); Nitrite-Dipstick Negative (Negative); Occult Blood-Urine Negative /ul (Negative); Protein-Dipstick Negative (Negative); Urine Bilirubin Dipstick Negative (Negative); Urine Clarity Clear (Clear); Urine Urobilinogen Normal (Normal)
[2019-07-11 13:27] LABS: Bacteria RARE /hpf (None Seen); White Blood Cells 0-5 SEEN /hpf (0-5)
--- NOTE | 2019-07-11 13:29 | PCM.HP.STD ---
Problem List (1) Gastroenteritis Status: Acute (2) Anxiety and depression Status: Chronic (3) Seizure disorder Status: Chronic (4) Morbid obesity Status: Chronic (5) KYA (obstructive sleep apnea) Status: Chronic (6) Pure hypercholesterolemia Status: Chronic (7) Benign essential HTN Status: Chronic History of Present Illness Date of Admission: 07/11/19 Chief Complaint: Fatigue, malaise, diarrhea, fevers, fall. The patient is a 68 y/o M w/ PMHx: Seizure disorder, Anxiety and Depression, Morbid Obesity, KYA, Hx Colon CA, BPH, HTN, HLD, Hypothyroidism, GERD, RLS, Fe Deficiency Anemia who presents to the [facility] ED on 07/11/19 with history of fatigue, weakness, malaise, low grade fevers with concurrent ongoing diarrhea with 2-6 bowel movements daily with no associated nausea, emesis or anorexia x 3 days with fall out of chair at Assisted Living on day of presentation with abrasion to the R buttock, falling on the R hip without trauma otherwise prompting ED evaluation. On evaluation patient now admits to starting the day prior he had onset of mild cough, minimally productive but no specific dyspnea. He denies any recent ill contacts at the assisted living. Work-up in the ED included T 99.8, heart rate 111, BP 108/60, respiratory rate 20, 93% on room air, CBC with WBC 6.7, hemoglobin 14.3, platelet 140 with no left shift demonstrated with increased monocytes, CMP with chloride 110, BUN/creatinine 11/0.1, glucose 115, urinalysis with no evidence of dehydration and no evidence of acute UTI, plain film of the hip and pelvis status post hemiarthroplasty, no acute findings. In the ED patient ministered normal saline. Past Medical History Past Medical History (Chronic Problems): Chronic Problems (Last Reviewed 03/17/19 @ 13:18 by Carmen Mohan) Anxiety and depression (Chronic) Seizure disorder (Chronic) Morbid obesity (Chronic) KYA (obstructive sleep apnea) (Chronic) Sleep apnea (Chronic) Pure hypercholesterolemia (Chronic) Nocturnal hypoxia (Chronic) Shortness of breath (Chronic) Depression (Chronic) Benign essential HTN (Chronic) Medical History: Medical History (Last Reviewed 03/17/19 @ 13:18 by Carmen Mohan) Sleep apnea (Chronic) G47.30 Pure hypercholesterolemia (Chronic) E78.00 Depression (Chronic) F32.9 Benign essential HTN (Chronic) I10 BPH (benign prostatic hyperplasia) N40.0 History of seizure Z87.898 History of colon cancer Z85.038 BPH (benign prostatic hyperplasia) (Inactive) Hyperlipemia (Inactive) E78.5 Seizure disorder (Inactive) G40.909 Allergies aspirin Allergy (Verified 07/11/19 10:10) cant remember rxn nickel Allergy (Verified 07/11/19 10:10) Other oxcarbazepine [From Trileptal] Allergy (Verified 07/11/19 10:10) cant remember rxn Home Medications: Ambulatory Orders Medication Instructions Recorded Alendronate Sodium [Fosamax] 70 mg PO Q7D@0700 12/07/16 Allopurinol [Zyloprim] 100 mg PO DAILYCM 12/07/16 Atorvastatin Calcium [Lipitor] 40 mg PO QHS 12/07/16 Bismuth Subsalicylate [Kaopectate] 30 ml PO DAILY PRN 12/07/16 Cholecalciferol (Vitamin D3) 2,000 unit PO DAILY 12/07/16 [Vitamin D3] Clonazepam [Klonopin] 0.5 mg PO QHS 12/07/16 Clopidogrel Bisulfate [Plavix] 75 mg PO DAILY 12/07/16 Divalproex Sodium [Depakote ER] 1,000 mg PO TID 12/07/16 Finasteride [Proscar] 5 mg PO DAILY 12/07/16 Gabapentin [Neurontin] 600 mg PO 4X/DAY 12/07/16 Levothyroxine [Synthroid] 50 mcg PO DAILY 12/07/16 Multivit-Min/FA/Lycopen/Lutein 1 ea PO DAILY 12/07/16 [Men 50 Plus Multivitamin Tab] Olanzapine [Zyprexa Zydis] 5 mg PO QHS 12/07/16 [place]-3/Dha/Epa/Fish Oil [Fish Oil 1,000 mg PO BID 12/07/16 1,000 mg Softgel] Potassium Chloride 20 meq PO BID 12/07/16 Ropinirole HCl [Ropinirole ER] 1 mg PO TID 12/07/16 Spironolactone [Aldactone] 25 mg PO DAILY 12/07/16 Tiagabine HCl [Gabitril] 12 mg PO BID 12/07/16 Venlafaxine HCl [Effexor Xr] 150 mg PO DAILY 12/07/16 Acetaminophen [Tylenol Arthritis] 1,300 mg PO BID 03/23/17 Alfuzosin HCl [Alfuzosin HCl ER] 10 mg PO QHS 03/23/17 Bumetanide [Bumex] 2 mg PO DAILY 03/23/17 Docusate Sodium [Dok] 100 mg PO QHS 03/23/17 Guaifenesin [Mucinex] 600 mg PO BID PRN 03/23/17 Polyethylene Glycol 3350 [Miralax] 119 gm PO PRN PRN 03/23/17 albuterol sulfate HFA 90 2 puff INHALATION Q4H #1 inh 05/02/18 mcg/actuation aerosol inhaler albuterol sulfate 2.5 mg/3 mL 2.5 mg INHALATION Q4H PRN #180 ml 05/03/18 (0.083 %) solution for nebulization ascorbic acid (vitamin C) 500 mg 500 mg PO DAILY cap 03/17/19 capsule benzocaine-menthol 15 mg-3.6 mg 1 nam MUCOUS MEMBRANE Q2H PRN 03/17/19 lozenges bethanechol chloride 25 mg tablet 25 mg PO TID 03/17/19 calcium-vitamin D3-vitamin K 500 1 tab PO DAILY 03/17/19 mg-100 unit-40 mcg chewable tablet ferrous gluconate 240 mg (27 mg 240 mg PO DAILY tab 03/17/19 iron) tablet ibuprofen 600 mg tablet 600 mg PO Q6H PRN 03/17/19 lactase 3,000 unit chewable tablet 9,000 unit PO DAILY PRN tab 03/17/19 levetiracetam 750 mg tablet 1,500 mg PO DAILY tab 03/17/19 loperamide 2 mg capsule 2 mg PO Q1-4H PRN 03/17/19 lysine 500 mg tablet 500 mg PO DAILY PRN 03/17/19 magnesium 250 mg (as magnesium 400 mg PO QHS 03/17/19 oxide) tablet montelukast 10 mg tablet 10 mg PO QPM 03/17/19 pantoprazole 40 mg tablet,delayed 40 mg PO DAILY 03/17/19 release ranitidine 150 mg tablet 150 mg PO DAILY 03/17/19 sucralfate 1 gram tablet 1 g PO TID tab 03/17/19 vitamin A palmitate 10,000 unit 10,000 unit PO DAILY 03/17/19 tablet vitamin B complex and vit C no.3 1 cap PO DAILY 03/17/19 15 mg-10 mg-50 mg-5 mg-300 mg capsule vitamin E 200 unit capsule 200 unit PO DAILY 03/17/19 Surgical History: Surgical History (Last Reviewed 03/17/19 @ 13:18 by Carmen Mohan) History of cholecystectomy Z90.49 History of right hip replacement Z96.641 Surgical History: - - Cholecystectomy, right total hip replacement. Psychiatric History: Anxiety, Depression Lives: - - Assisted living Smoking Status: Never smoker Tobacco Use: Non-smoker Alcohol: None Drugs: None - *Family History Maternal Family History: Family History (Last Reviewed 03/17/19 @ 13:18 by Carmen Mohan) Mother COPD (chronic obstructive pulmonary disease) CAD (coronary artery disease) Father Cancer Heart disease Myocardial infarction CAD (coronary artery disease) Aunt CAD (coronary artery disease) Myocardial infarction History Items: Heart Disease, Hypertension, Pulmonary Disease Paternal Family History: Family History (Last Reviewed 03/17/19 @ 13:18 by Carmen Mohan) Mother COPD (chronic obstructive pulmonary disease) CAD (coronary artery disease) Father Cancer Heart disease Myocardial infarction CAD (coronary artery disease) Aunt CAD (coronary artery disease) Myocardial infarction History Items: Cancer, High Cholesterol, Heart Disease, Hypertension Review of Systems Constitutional: Reports: Malaise, Weakness, Fatigue. Denies: Chills, Fever, Weight Change HEENT: Denies: Head Aches, Sinus Congestion, Sinus Drainage Cardiovascular: Denies: Chest Pain, Chest Pressure, Chest Tightness, Light Headedness, Orthopnea, Palpitations, Syncope Respiratory: Reports: Cough, Sputum production. Denies: Shortness of Breath, Shortness of breath at rest Gastrointestinal: Reports: Diarrhea. Denies: Abdominal Pain, Nausea, Vomiting Genitourinary: Denies: Dysuria Musculoskeletal: Reports: Joint Pain. Denies: Joint Tenderness Skin: Reports: Skin Changes. Denies: Rash, Wounds Neurological: Denies: Numbness, Tingling, Focal weakness Psychiatric: Reports: Anxiety, Depression. Denies: Homicidal Ideations, Suicidal Ideations Hematologic/ Lymphatic: Reports: Anemia, Easy Bruising, Easy Bleeding VTE Information - Inpt Only VTE Present on Admission: No VTE Mechan Device Prophylaxis: SCD's VTE Pharm Prophylaxis ordered?: Yes Patient Problems: Active and Suspected Problems (Last Reviewed 03/17/19 @ 13:18 by Carmen Mohan) Weakness (Acute) Fall (Acute) Diarrhea (Acute) Gastroenteritis (Acute) Subjective: Seated upright in the ED bed, mild fatigued, occasional coughing during examination. Objective: Physical Examination: General: awake, alert, oriented x 3 and cooperative, seated upright in the ED bed in no apparent distress, fatigued appearance, occasional coughing. Skin: normal color, turgor, no icterus, cyanosis except recent fall w/ posterior buttock abrasion, dressed. HEENT: AT/NC, EOMI, PERRLA, mildly dry MM, no carotid bruits or JVD noted. Lungs: Diminished breath sounds bilaterally, greater bases, moderate effort, coughing elicited, no market sputum production, no rales, ronchi or wheezing. Heart: Proved, remains mildly tachycardic with regular rhythm; no gallop, rub audible. Abdomen: soft, obese, NTTP, ND, normal BS, no HSM; ever, habitus makes examination difficult. Extremities: no cyanosis, clubbing, mild bilateral ankle edema, 1+ pitting. Neurological: patient awake, alert, oriented x 3; cognitive function intact; pupils equally reactive to light and accomodation; cranial nerves II-XII grossly normal, moving all 4 extremities, no focal deficits, strength oddly to severely global decrease secondary to acute presentation. Psychiatric: affect appears fatigued, mildly flat affect, no acute evidence of depressive or anxiety feelings. - Physical Exam Vital Signs Temp Pulse Resp BP Pulse Ox 99.8 F H 107 H 15 112/60 95 07/11/19 13:10 07/11/19 13:10 07/11/19 13:10 07/11/19 13:10 07/11/19 13:10 Oxygen Delivery Method Room Air Weight: 239 lb 6.752 oz Body Mass Index (BMI) 43.7 Laboratory Tests Past 24 Hrs 07/11/19 07/11/19 07/11/19 10:40 10:40 10:40 WBC 6.6 RBC 4.47 L Hgb 14.3 Hct 43.7 MCV 97.8 H MCH 32.0 MCHC 32.7 RDW Std Deviation 45.6 H RDW Coeff of Ronna 12.7 Plt Count 140 L MPV 8.7 Immature Gran % (Auto) 0.300 Neut % (Auto) 67.3 Lymph % (Auto) 15.0 L [place] % (Auto) 16.2 H Eos % (Auto) 0.9 Baso % (Auto) 0.3 Absolute Neuts (auto) 4.5 Absolute Lymphs (auto) 0.99 Nucleated RBC % 0 Sodium 143 Potassium 4.0 Chloride 110 H Carbon Dioxide 29.0 Anion Gap 4 L BUN 11 Creatinine 0.81 Estim Creat Clear Calc 66.47 Est GFR (MDRD) Af Amer 121 Est GFR (MDRD) Non-Af 100 BUN/Creatinine Ratio 13.6 Glucose 115 H Calcium 8.6 Total Bilirubin 0.50 Direct Bilirubin 0.12 AST 32 ALT 27 Alkaline Phosphatase 45 Total Protein 6.7 Albumin 3.0 L Globulin 3.7 Urine Color Urine Clarity Urine pH Ur Specific [place] Urine Protein Urine Glucose (UA) Urine Ketones Urine Occult Blood Urine Nitrite Urine Bilirubin Urine Urobilinogen Ur Leukocyte Esterase Urine RBC Urine WBC Ur Squamous Epith Cells Urine Bacteria Urine Mucus Valproic Acid 44 L 07/11/19 13:06 WBC RBC Hgb Hct MCV MCH MCHC RDW Std Deviation RDW Coeff of Ronna Plt Count MPV Immature Gran % (Auto) Neut % (Auto) Lymph % (Auto) [place] % (Auto) Eos % (Auto) Baso % (Auto) Absolute Neuts (auto) Absolute Lymphs (auto) Nucleated RBC % Sodium Potassium Chloride Carbon Dioxide Anion Gap BUN Creatinine Estim Creat Clear Calc Est GFR (MDRD) Af Amer Est GFR (MDRD) Non-Af BUN/Creatinine Ratio Glucose Calcium Total Bilirubin Direct Bilirubin AST ALT Alkaline Phosphatase Total Protein Albumin Globulin Urine Color Yellow Urine Clarity Clear Urine pH 8.0 Ur Specific [place] 1.010 Urine Protein Negative Urine Glucose (UA) Normal Urine Ketones Negative Urine Occult Blood Negative Urine Nitrite Negative Urine Bilirubin Negative Urine Urobilinogen Normal Ur Leukocyte Esterase Negative Urine RBC 0 SEEN Urine WBC 0-5 SEEN Ur Squamous Epith Cells 0 SEEN Urine Bacteria RARE Urine Mucus 0 SEEN Valproic Acid Assessment/Plan All Active Problems (Last Reviewed 03/17/19 @ 13:18 by Carmen Mohan) Weakness (Acute) Fall (Acute) Diarrhea (Acute) Gastroenteritis (Acute) Daytime hypersomnia (Acute) The patient is a 68 y/o M w/ PMHx: Seizure disorder, Anxiety and Depression, Morbid Obesity, KYA, Hx Colon CA, BPH, HTN, HLD, Hypothyroidism, GERD, RLS, Fe Deficiency Anemia who presents to the [facility] ED on 07/11/19 with history of fatigue, weakness, malaise, low grade fevers with concurrent ongoing diarrhea with 2-6 bowel movements daily with no associated nausea, emesis or anorexia x 3 days with fall out of chair at Assisted Living on day of presentation with abrasion to the R buttock, falling on the R hip without trauma otherwise prompting ED evaluation with recent onset mild cough, nonproductive also. (1) Fever, Diarrhea, ? Acute Gastroenteritis w/ Debility, Weakness, Fall with right posterior buttock abrasion: Work-up in the ED included T 99.8, heart rate 111, BP 108/60, respiratory rate 20, 93% on room air, CBC with WBC 6.7, hemoglobin 14.3, platelet 140 with no left shift demonstrated with increased monocytes, CMP with chloride 110, BUN/creatinine 11/0.1, glucose 115, urinalysis with no evidence of dehydration and no evidence of acute UTI, plain film of the hip and pelvis status post hemiarthroplasty, no acute findings. Will admit to MS, will continue hydration, will obtain c diff, stool cx with repeat AM CBC, will obtain respiratory viral panel. Will not start antibiotics at this time given unclear source pending stool studies as may be viral gastroenteritis. Anti-emetics, pain regimen PRN. PT, OT, CM consultations for discharge planning. Given now new onset mild cough, nonproductive we will additionally obtain chest x-ray prior to transition to floor and as noted obtain respiratory viral panel. Dressing changes to posterior abrasion. (2) Hypertension: Continue home regimen including Bumex, PRN hydralazine. (3) Hyperlipidemia: Continue home statin regimen. (4) Anxiety and depression: Continue home Klonopin, Zyprexa and venlafaxine regimen. (5) Seizure disorder: We will continue home Depakote, Gabitril and Keppra regimen. (6) Hypothyroidism: Continue home synthroid regimen. (7) BPH: Continue home alfuzosin, Proscar regimen. (8) Iron deficiency anemia: We will continue iron gluconate supplementation. (9) Morbid Obesity: Weight loss and lifestyle changes encouraged, nutrition consulted. (10) RLS: We will continue home Requip regimen. (11) GERD: Continue on PPI. (12) KYA: Noted history, does not use a CPAP or BiPAP, 3 L NC q HS. (13) Gout: Continue home allopurinol regimen. (14) DVT prophylaxis: SCDs, lovenox. (15) CODE status: Patient's youngest niece is his healthcare power of assistant prosecuting attorney, living will is in place. Discussed CODE status at length including difference between FULL code, DNR-CCA and DNR-CC status. Following discussions about the differences in these status, requested DNR-CCA, no intubation status. DNR-CCA, no intubation form signed and placed on the chart. Advanced Care Planning Face to Face Time: 20 minutes. Code Visit OBSV E&M: 42018 Initial observation care L3 Procedures: 06242 Advncd Care Plan 30 Min
--- NOTE | 2019-07-11 13:43 | ED.RN ---
SISTER LAURENT CALLED PER PT REQUEST, RELAYED MESSAGE THAT PT WAS GETTING ADMITTED, NEEDS HIS CAT FED.
--- NOTE | 2019-07-11 14:00 | RAD_ITS ---
STUDY: X-RAY CHEST REASON FOR EXAM: Male, 68 years old. Shortness of breath, weakness, fever TECHNIQUE: PA and lateral views of the chest. COMPARISON: FINDINGS: The lungs are clear and expanded. There is no demonstrated pleural abnormality. There is moderate cardiac enlargement. Normal mediastinum and crissy. Normal visualized pulmonary arteries. Normal visualized aortic arch and descending thoracic aorta. There is a levoscoliosis of the thoracic spine. Normal visualized ribs, clavicles, and shoulders. There is no demonstrated abnormality of the visualized soft tissue structures of the upper abdomen. RAD/Chest PA and Lateral IMPRESSION: No active disease. Electronically Signed: Kuldeep Louie MD at 14:55 EDT Tel , Service support ,
[2019-07-11 16:03] LABS: Magnesium 1.8 mg/dL (1.6-2.6); Phosphorus 1.6 mg/dL (2.5-4.9)
[2019-07-11] MEDS: 0.9% Normal Saline 1,000 ML 125 ML IV (16:05)
[2019-07-11] MEDS: Sucralfate 1 GM Tablet PO (17:17)
[2019-07-11] MEDS: Divalproex (ER) 500 MG Tablet 1000 MG PO ×2 (17:17→22:09)
[2019-07-11] MEDS: Pramipexole Di-HCl 0.5 MG Tablet PO ×2 (17:17→22:09)
[2019-07-11] MEDS: Menthol/Lanolin/Calamine/Znox 113 GM Tube 1 APPLIC TOPICAL ×2 (18:28→22:10)
--- NOTE | 2019-07-11 20:22 | NURSING ---
pt c/o lower abd pressure and trouble urinating. Voided 100cc, Bladder scanned post void @ >999. Notified jaki Demarco to straight cath
[2019-07-11] MEDS: OLANZapine 5 MG/TAB TAB.RAPDIS PO (22:08)
[2019-07-11] MEDS: Pregabalin 50 MG Capsule 200 MG PO (22:08)
[2019-07-11] MEDS: Atorvastatin Calcium 40 MG Tablet PO (22:09)
[2019-07-11] MEDS: Enoxaparin 40 MG/0.4 ML Syringe SC (22:09)
[2019-07-11] MEDS: clonazePAM 0.5 MG Tablet PO (22:09)
[2019-07-11] MEDS: Tamsulosin HCl 0.4 MG Capsule PO (22:09)
[2019-07-11] MEDS: Montelukast 10 MG Tablet PO (22:09)
[2019-07-11] MEDS: levETIRAcetam 1,000 MG Tablet 2000 MG PO (22:10)
[2019-07-11] MEDS: Magnesium Oxide 400 MG Tablet PO (22:10)
[2019-07-11] MEDS: Nystatin Powder 15gm Bottle 1 APPLIC TOPICAL (22:19)
[2019-07-12] MEDS: 0.9% Normal Saline 1,000 ML 125 ML IV ×2 (00:11→08:01)
[2019-07-12 02:12] VITALS: BP 106/59; PULSE 87; RESP 18; TEMP 37.1; O2SAT 96
[2019-07-12] MEDS: Levothyroxine 50 MCG Tablet PO (05:58)
[2019-07-12] MEDS: Divalproex (ER) 500 MG Tablet 1000 MG PO ×3 (05:58→20:54)
[2019-07-12] MEDS: Pregabalin 50 MG Capsule 200 MG PO ×3 (05:58→20:53)
[2019-07-12] MEDS: Pramipexole Di-HCl 0.5 MG Tablet PO ×3 (05:59→20:55)
[2019-07-12] MEDS: Nystatin Powder 15gm Bottle 1 APPLIC TOPICAL ×3 (05:59→20:57)
[2019-07-12] MEDS: Sucralfate 1 GM Tablet PO ×3 (06:00→17:09)
[2019-07-12 06:05] LABS: Absolute Lymphocyte Count 2.54 X10^3/uL (0.83-4.51); Absolute Neutrophil Count 3.5 X10^3/uL (2.0-7.7); Basophil# 0.01 X10^3/uL; Basophil% 0.1 % (0-1); Eosinophil# 0.15 X10^3/uL; Eosinophils% 2.1 % (0-5); Hematocrit 38.5 % (40-54); Hemoglobin 12.1 g/dL (13.0-16.5); Lymphocyte # 2.54 X10^3/ul (4.0); Lymphocyte % 35.4 % (19-41); Mean Corp Hgb Conc 31.4 g/dL (32-36); Mean Corpuscular Hgb 31.2 pg (27.0-32.0); Mean Corpuscular Volume 99.2 fL (80-94); Mean Platelet Vol. 8.8 fl (6.2-12.0); Monocyte% 13.9 % (0-10); NRBC Flagged by Analyzer 0 % (0-5); Neutrophil # 3.45 X10^3/uL (2.7-7.7); Neutrophil % 48.1 % (47-70); Platelet Count 147 K/mm3 (150-450); RBC Distribution Width SD 46.7 fl (35.1-43.9); Red Blood Count 3.88 M/mm3 (4.6-6.2); White Blood Count 7.2 K/mm3 (4.4-11.0)
[2019-07-12 06:27] LABS: ALB/GLOB Ratio 0.7 RATIO (0.9-2.4); AST(SGOT) 25 U/L (15-37); Alanine Aminotransfer ALT/SGPT 22 U/L (16-61); Albumin, Serum 2.4 g/dL (3.2-5.0); Alkaline Phosphatase 37 U/L (45-117); Anion Gap 6 (5-15); BUN 8 mg/dL (7-18); BUN/Creat Ratio 11.6 RATIO (10-20); Calcium,Total 8.1 mg/dL (8.5-10.1); Chloride 112 mmol/L (98-107); Creatinine, Serum 0.69 mg/dL (0.70-1.30); EST Glomerular Filtration Rate 121 mL/min (>60); Est Glom Filt Rate - Afr Amer 147 mL/min (>60); Estimated Creatinine Clearance 56.11 ml/min; Globulin 3.3 g/dL (2.2-4.2); Glucose 82 mg/dL (74-106); Potassium 3.8 mmol/L (3.5-5.1); Protein, Total 5.7 g/dL (6.4-8.2); Sodium Level 146 mmol/L (136-145)
[2019-07-12 07:57] VITALS: BP 109/49; PULSE 73; RESP 18; TEMP 37.3; O2SAT 95
[2019-07-12] MEDS: Allopurinol 100 MG Tablet PO (08:00)
[2019-07-12] MEDS: HYDROcodone Bitartrate/Apap 5/325 Tablet PO ×2 (08:01→20:54)
[2019-07-12] MEDS: Ferrous Gluconate 324 MG Tablet PO (08:06)
--- NOTE | 2019-07-12 09:20 | PN_ITS ---
Patient Problems: Active and Suspected Problems (Last Reviewed 03/17/19 @ 13:18 by Carmen Mohan) Weakness (Acute) Fall (Acute) Diarrhea (Acute) Gastroenteritis (Acute) Subjective: Patient seen and examined. he was admitted with a complaint of diarrhea, fever and mechanical fall. He sustained an abrasion to the right buttock. Xray of the hip and pelvis showed no fractures. He is being managed for acute gastroenteritis and debility due to mechanical fall. Patient seen and examined. HE was comfortably eating breakfast and had no complaints. He denied any fever, chills, palpitations, dizziness, chest pain, abdominal pain or vomiting. Diarrhea has improved. Review of systems otherwise negative. labs and vitals reviewed. Vitals/I&O's: Vital Signs Temp Pulse Resp BP Pulse Ox 99.1 F 73 18 109/49 L 95 07/12/19 07:57 07/12/19 07:57 07/12/19 07:57 07/12/19 07:57 07/12/19 07:57 Oxygen Flow Rate (L/min) 2 Oxygen Delivery Method Nasal Cannula Weight: 233 lb 12.8 oz Body Mass Index (BMI) 41.4 Intake and Output for Last 24 Hours 07/10/19 07/11/19 07/12/19 23:59 23:59 23:59 Intake Total 1518.33 / 2518.33 3329.17 / 3329.17 Output Total 1200 / 1200 Balance 1518.33 / 1318.33 2129.17 / 2129.17 General: Alert, Oriented x3, Cooperative, No apparent distress HEENT: Atraumatic, PERRLA, EOMI, Normocephalic Oral: Moist Mucosa Neck: Supple, No JVD, Negative Carotid Bruits Lungs: Clear to auscultation, Normal air movement, No rhonchi, No wheeze, No rales, - - on 2L of oxygen Cardiovascular: Regular rate, Regular Rhythm, Normal S1, Normal S2, No murmurs Abdomen: Bowel Sounds Present, Soft, Non Tender, Non-Distended, No Hepato- splenomegaly Extremities: No clubbing, No cyanosis, No edema, Capillary Refill Less than 3 Seconds Skin: No rashes, No breakdown Musculoskeletal: No Tenderness to Palpation of Joints or Extremities Lymphatic: No Cervical, Supraclavicular, or Inguinal Adenopathy Neurological: Cranial nerves II-XII grossly intact, Neuro grossly intact, Motor Exam 5/5 strength throughout Psych/Mental Status: Normal Affect, Appropriate, Alert and oriented to time, place, person, mood and affect Microbiology Past 72 Hours 07/11/19 20:00 Mucosa - Nasopharyngeal Respiratory Panel (PCR) - Final Rhinovirus 07/11/19 18:40 Stool C. difficile DNA Amplification - Final Laboratory Results 07/11/19 10:40: WBC 6.6, RBC 4.47 L, Hgb 14.3, Hct 43.7, MCV 97.8 H, MCH 32.0, M CHC 32.7, RDW Std Deviation 45.6 H, RDW Coeff of Ronna 12.7, Plt Count 140 L, MPV 8.7, Immature Gran % (Auto) 0.300, Neut % (Auto) 67.3, Lymph % (Auto) 15.0 L, Ray % (Auto) 16.2 H, Eos % (Auto) 0.9, Baso % (Auto) 0.3, Absolute Neuts (auto) 4.5, Absolute Lymphs (auto) 0.99, Nucleated RBC % 0 07/11/19 10:40: Sodium 143, Potassium 4.0, Chloride 110 H, Carbon Dioxide 29.0, Anion Gap 4 L, BUN 11, Creatinine 0.81, Estim Creat Clear Calc 66.47, Est GFR (MDRD) Af Amer 121, Est GFR (MDRD) Non-Af 100, BUN/Creatinine Ratio 13.6, Glucose 115 H, Calcium 8.6, Total Bilirubin 0.50, Direct Bilirubin 0.12, AST 32, ALT 27, Alkaline Phosphatase 45, Total Protein 6.7, Albumin 3.0 L, Globulin 3.7 07/11/19 10:40: Valproic Acid 44 L 07/11/19 10:40: Phosphorus 1.6 L, Magnesium 1.8 07/11/19 13:06: Urine Color Yellow, Urine Clarity Clear, Urine pH 8.0, Ur Specific [place] 1.010, Urine Protein Negative, Urine Glucose (UA) Normal, Urine Ketones Negative, Urine Occult Blood Negative, Urine Nitrite Negative, Urine Bilirubin Negative, Urine Urobilinogen Normal, Ur Leukocyte Esterase Negative, Urine RBC 0 SEEN, Urine WBC 0-5 SEEN, Ur Squamous Epith Cells 0 SEEN, Urine Bacteria RARE, Urine Mucus 0 SEEN 07/12/19 05:20: WBC 7.2, RBC 3.88 L, Hgb 12.1 L, Hct 38.5 L, MCV 99.2 H, MCH 31.2, MCHC 31.4 L, RDW Std Deviation 46.7 H, RDW Coeff of Ronan 13.0, Plt Count 147 L, MPV 8.8, Immature Gran % (Auto) 0.400, Neut % (Auto) 48.1, Lymph % (Auto) 35.4, Ray % (Auto) 13.9 H, Eos % (Auto) 2.1, Baso % (Auto) 0.1, Absolute Neuts (auto) 3.5, Absolute Lymphs (auto) 2.54, Nucleated RBC % 0 07/12/19 05:20: Sodium 146 H, Potassium 3.8, Chloride 112 H, Carbon Dioxide 28.0, Anion Gap 6, BUN 8, Creatinine 0.69 L, Estim Creat Clear Calc 56.11, Est GFR (MDRD) Af Amer 147, Est GFR (MDRD) Non-Af 121, BUN/Creatinine Ratio 11.6, Glucose 82, Calcium 8.1 L, Total Bilirubin 0.40, AST 25, ALT 22, Alkaline Phosphatase 37 L, Total Protein 5.7 L, Albumin 2.4 L, Globulin 3.3, Albumin/Globulin Ratio 0.7 L Diagnostic Data Hip/Pelvis X-Ray 07/11/19 10:40 IMPRESSION: Normal x-ray examination of the pelvis and hip after hemiarthroplasty. Electronically Signed: Kuldeep Louie MD at 11:06 EDT Tel , Service support , Chest X-Ray 07/11/19 14:00 IMPRESSION: No active disease. Electronically Signed: Kuldeep Louie MD at 14:55 EDT Tel , Service support , Current Medications Acetaminophen (Tylenol) 650 mg PO Q6H PRN PRN PRN Reason: Non-cardiac pain (mod-severe) Hydrocodone Bitart/Acetaminophen ([place] 5mg-325mg) 1 - 2 tablet PO Q6H PRN PRN PRN Reason: Pain Score 4-10/10 Last Admin: 07/12/19 08:01 Dose: 1 tablet Documented by: Albuterol Sulfate (Ventolin Aerosols) 2.5 mg INHALATION Q2H PRN PRN PRN Reason: dyspnea, wheezing [facility] Last Admin: 07/12/19 08:00 Dose: 100 mg Documented by: Atorvastatin Calcium (Lipitor) 40 mg PO QHS [facility] Last Admin: 07/11/19 22:09 Dose: 40 mg Documented by: Bumetanide (Bumex) 2 mg PO DAILY [facility] Calamine/Phenol (Calmoseptine Ointment) 1 applic TOPICAL 4X/DAY [facility]; Protocol Last Admin: 07/11/19 22:10 Dose: 1 applicatio Documented by: Clonazepam (Klonopin) 0.5 mg PO QHS [facility] Last Admin: 07/11/19 22:09 Dose: 0.5 mg Documented by: Clopidogrel Bisulfate (Plavix) 75 mg PO DAILY [facility] Dextrose (D50w Syringe) 0 gm IV X1 PRN; Protocol PRN Reason: Hypoglycemia Divalproex Sodium (Depakote Er) 1,000 mg PO TID [facility] Last Admin: 07/12/19 05:58 Dose: 1,000 mg Documented by: Enoxaparin Sodium (Lovenox) 40 mg SC BID [facility] Last Admin: 07/11/19 22:09 Dose: 40 mg Documented by: Famotidine (Pepcid) 20 mg PO DAILY [facility] Ferrous Gluconate (Ferrous Gluconate) [facility] Last Admin: 07/12/19 08:06 Dose: 324 mg Documented by: Finasteride (Proscar) 5 mg PO DAILY [facility] Glucagon () 1 mg IM .X1 PRN PRN Reason: Hypoglycemia Hydralazine HCl (Apresoline Iv) 10 mg IV Q4H PRN PRN PRN Reason: SBP > 160 Sodium Chloride () 1,000 mls @ 125 mls/hr IV .Q8H [facility] Last Admin: 07/12/19 08:01 Dose: 125 mls/hr Documented by: Levetiracetam (Keppra Tablet) 1,500 mg PO DAILY [facility] Levetiracetam (Keppra Tablet) 2,000 mg PO QHS [facility] Last Admin: 07/11/19 22:10 Dose: 2,000 mg Documented by: Levothyroxine Sodium (Synthroid) 50 mcg PO DAILY@0600 [facility] Last Admin: 07/12/19 05:58 Dose: 50 mcg Documented by: Magnesium Oxide (Mag-Ox 400) 400 mg PO QHS [facility] Last Admin: 07/11/19 22:10 Dose: 400 mg Documented by: Melatonin (Melatonin) 3 mg PO QHS PRN PRN PRN Reason: INSOMNIA Montelukast Sodium (Singulair) 10 mg PO QPM [facility] Last Admin: 07/11/19 22:09 Dose: 10 mg Documented by: Morphine Sulfate () 1 - 2 mg IV Q4H PRN PRN PRN Reason: Pain Score 1-10/10 Nitroglycerin (Nitrostat) 0.4 mg SUBLINGUAL Q5M PRN PRN Reason: CARDIAC/CHEST PAIN Nystatin (Mycostatin Powder) 1 applic TOPICAL TID [facility]; Protocol Last Admin: 07/12/19 05:59 Dose: 1 applicatio Documented by: Olanzapine (Zyprexa Zydis) 5 mg PO QHS [facility] Last Admin: 07/11/19 22:08 Dose: 5 mg Documented by: Ondansetron HCl (Zofran) 4 mg IV Q8H PRN PRN PRN Reason: NAUSEA/VOMITING Pantoprazole Sodium (Protonix) 40 mg PO DAILY [facility] Potassium Chloride (K-Dur) 20 meq PO BIDCM [facility] Last Admin: 07/12/19 08:00 Dose: 20 meq Documented by: Pramipexole Dihydrochloride (Mirapex) 0.5 mg PO TID [facility] Last Admin: 07/12/19 05:59 Dose: 0.5 mg Documented by: Pregabalin (Lyrica) 200 mg PO TID [facility] Last Admin: 07/12/19 05:58 Dose: 200 mg Documented by: Sodium Chloride () 5 - 15 ml IV UD PRN PRN Reason: SALINE FLUSH Spironolactone (Aldactone) 37.5 mg PO DAILY [facility] Sucralfate (Carafate) 1 gm PO TID@0700,1100,1600 [facility] Last Admin: 07/12/19 06:00 Dose: 1 gm Documented by: Tamsulosin HCl (Flomax) 0.4 mg PO QHS [facility] Last Admin: 07/11/19 22:09 Dose: 0.4 mg Documented by: Tiagabine HCl (Gabitril) 12 mg PO BID [facility] Last Admin: 07/11/19 22:21 Dose: 12 mg Documented by: Venlafaxine HCl (Effexor Xr) 150 mg PO DAILY [facility] Medical Necessity - Tobacco Use Smoking Status: Never smoker Tobacco Use: Non-smoker Assessment/Plan All Active Problems (Last Reviewed 03/17/19 @ 13:18 by Carmen Mohan) Weakness (Acute) Fall (Acute) Diarrhea (Acute) Gastroenteritis (Acute) Daytime hypersomnia (Acute) 1. Acute gastroenteritis * resolving. feels much better * no leucocytosis * continue gentle hydration * C Diff was negative, and stool enteric pathogen pending * 2. Debility due to mechanical fall * fall precautions. * PT/OT consult * 3. URTI due to rhinovirus infection * feels better;' lungs are clear to auscultation * CXR showed * breathing treatments; titrate oxygen to maintain sats>90% * Mucinex 1200mg bid * 4. Hypophosphatemia: serum phosphorous was only 1.6 on admission. Will recheck and replace. Check magnesium levels too 5. Hypertension: controlled. Will monitor. 6. Hyperlipidemia: on statin 7.Seizure disorder: on depakote, Keppra and gabitril 8. Anxiety and depression; on Klonopin, Zyprexa and venlafaxine. 9. Obstructive sleep apnea: On 2 to 3 L of nasal cannula as needed at night. No t on CPAP or BIPAP. Other medical problems: -Gout: on allopurinol -Restless leg syndrome: on requip -iron deficiency anemia: on iron gluconate DVT prophylaxis: lovenox Code Visit OBSV E&M: 12737 Subsequent observation care L3
--- NOTE | 2019-07-12 09:28 | CASEMGMT ---
LW scanned into summary tab of e-chart. POA form scanned into the e-chart. SW printed the medical POA form from the on license of [facility] so it can be scanned into the summary tab. The forms in the summary tab now are general POA forms and documents regarding the pt's Trust, and the documents appear to be incomplete. Pt has Drea Block listed as his Medical POA. GASPER Green
[2019-07-12 09:54] LABS: Phosphorus 2.3 mg/dL (2.5-4.9)
[2019-07-12] MEDS: Venlafaxine XR 150 MG Capsule PO (10:07)
[2019-07-12] MEDS: Pantoprazole Sodium 40 MG Tablet PO (10:07)
[2019-07-12] MEDS: Famotidine 20 MG Tablet PO (10:07)
[2019-07-12] MEDS: levETIRAcetam 750 MG Tablet 1500 MG PO (10:07)
[2019-07-12] MEDS: Bumetanide 2 MG Tablet PO (10:07)
[2019-07-12] MEDS: Enoxaparin 40 MG/0.4 ML Syringe SC ×2 (10:07→20:58)
[2019-07-12] MEDS: Finasteride 5 MG Tablet PO (10:07)
[2019-07-12] MEDS: Clopidogrel Bisulfate 75 MG Tablet PO (10:07)
[2019-07-12] MEDS: Menthol/Lanolin/Calamine/Znox 113 GM Tube 1 APPLIC TOPICAL ×4 (10:08→21:08)
[2019-07-12] MEDS: Spironolactone 25 MG Tablet 37.5 MG PO (10:08)
--- NOTE | 2019-07-12 10:32 | NURSING ---
Neva, from [facility] called for update on patient, update provided.
--- NOTE | 2019-07-12 11:34 | CASEMGMT ---
Addendum entered by Micheline Inman 07/12/19 15:18: SW faxed updated clinicals to [facility] Addendum entered by Micheline Inman 07/12/19 12:16: SW spoke with PT/OT who state they feel pt is able to return to [facility]. Plan: Return to [facility] once medically cleared Original Note: Social Work Note Pt is listed as being from [facility]. SW met with pt and introduced self and role at [facility]. Pt is alert and orientated x3. Pt confirms that he came from [facility] and he wishes to return there at discharge. SW informed pt that PT/OT are going to work with pt and will recommend if pt is able to return to [facility] or if pt will need SNF at discharge. Pt states understanding. SW provided pt with list of area SNF that accept pt's insurance in the event SNF is needed. Plan: Return to [facility] vs SNF Micheline Inman HOUSING INSTALLER, PRODUCTION UTILITY WORKER
[2019-07-12 14:30] VITALS: BP 99/48; PULSE 68; RESP 18; TEMP 36.9; O2SAT 96
[2019-07-12] MEDS: Na Biphos/Potassium Phosphate PACKET 1 PACKET PO ×2 (14:33→20:56)
--- NOTE | 2019-07-12 14:38 | CHAPLAIN ---
Type of Pastoral Visit _x__ Initial Visit ___ Follow-up Visit ___ On-call Visit ___ General Patient Visit ___ Spiritual Assessment ___ Family Conference ___ Bereavement ___ Rapid Response ___ Code Blue ___ Other (describe below) Pastoral Care Referral From _x__ Patient ___ Family ___ Nurse ___ Physician ___ Transformation Consultant ___ Flight Attendant Ramp ___ Other (describe below) Sacrament/Intervention _x__ Active listening ___ Anointing ___ Religious ___ Bereavement ___ Communion ___ Kim exploration ___ _x__ Life review _x__ Prayer ___ Reconciliation ___ Sacrament of Sick _x__ Supportive presence ___ Wedding ___ Other (describe below) Pastoral Comments patient says he welcomes more visits from the kiln door repairer
--- NOTE | 2019-07-12 15:48 | CASEMGMT ---
BYRON MCRAE NOTE: Reviewed GARZA form with pt. He denies having any questions. Form signed by pt, copy made and placed on chart, and original given to pt. Cally MARSHALL RN CM
[2019-07-12 20:30] VITALS: BP 156/70; PULSE 68; RESP 18; TEMP 36.6; O2SAT 95
[2019-07-12] MEDS: clonazePAM 0.5 MG Tablet PO (20:53)
[2019-07-12] MEDS: Montelukast 10 MG Tablet PO (20:54)
[2019-07-12] MEDS: Tamsulosin HCl 0.4 MG Capsule PO (20:54)
[2019-07-12] MEDS: levETIRAcetam 1,000 MG Tablet 2000 MG PO (20:54)
[2019-07-12] MEDS: Magnesium Oxide 400 MG Tablet PO (20:55)
[2019-07-12] MEDS: OLANZapine 5 MG/TAB TAB.RAPDIS PO (20:55)
[2019-07-12] MEDS: Atorvastatin Calcium 40 MG Tablet PO (20:55)
[2019-07-13 02:30] VITALS: BP 122/73; PULSE 70; RESP 16; TEMP 36.8; O2SAT 95
[2019-07-13] MEDS: Pregabalin 50 MG Capsule 200 MG PO ×2 (05:59→13:00)
[2019-07-13] MEDS: Sucralfate 1 GM Tablet PO ×2 (05:59→11:36)
[2019-07-13] MEDS: Pramipexole Di-HCl 0.5 MG Tablet PO ×2 (05:59→13:00)
[2019-07-13] MEDS: Divalproex (ER) 500 MG Tablet 1000 MG PO ×2 (05:59→13:00)
[2019-07-13] MEDS: Levothyroxine 50 MCG Tablet PO (06:00)
[2019-07-13] MEDS: Nystatin Powder 15gm Bottle 1 APPLIC TOPICAL ×2 (06:00→13:00)
[2019-07-13 07:35] LABS: Absolute Lymphocyte Count 2.83 X10^3/uL (0.83-4.51); Absolute Neutrophil Count 2.6 X10^3/uL (2.0-7.7); Basophil# 0.01 X10^3/uL; Basophil% 0.2 % (0-1); Eosinophil# 0.23 X10^3/uL; Eosinophils% 3.6 % (0-5); Hematocrit 39.2 % (40-54); Hemoglobin 12.7 g/dL (13.0-16.5); Lymphocyte # 2.83 X10^3/ul (4.0); Lymphocyte % 44.1 % (19-41); Mean Corp Hgb Conc 32.4 g/dL (32-36); Mean Corpuscular Hgb 31.6 pg (27.0-32.0); Mean Corpuscular Volume 97.5 fL (80-94); Mean Platelet Vol. 8.8 fl (6.2-12.0); Monocyte# 0.68 X10^3/uL; Monocyte% 10.6 % (0-10); NRBC Flagged by Analyzer 0 % (0-5); Neutrophil # 2.62 X10^3/uL (2.7-7.7); Neutrophil % 40.9 % (47-70); Platelet Count 152 K/mm3 (150-450); RBC Distribution Width CV 12.5 % (11.6-14.6); RBC Distribution Width SD 45.1 fl (35.1-43.9); Red Blood Count 4.02 M/mm3 (4.6-6.2); White Blood Count 6.4 K/mm3 (4.4-11.0)
[2019-07-13 07:42] LABS: Anion Gap 8 (5-15); BUN 8 mg/dL (7-18); BUN/Creat Ratio 13.1 RATIO (10-20); Calcium,Total 8.6 mg/dL (8.5-10.1); Chloride 111 mmol/L (98-107); Creatinine, Serum 0.61 mg/dL (0.70-1.30); EST Glomerular Filtration Rate 139 mL/min (>60); Est Glom Filt Rate - Afr Amer 168 mL/min (>60); Estimated Creatinine Clearance 56.11 ml/min; Glucose 83 mg/dL (74-106); Potassium 3.8 mmol/L (3.5-5.1); Sodium Level 146 mmol/L (136-145)
[2019-07-13 08:13] VITALS: O2SAT 95
[2019-07-13 08:30] VITALS: BP 116/59; PULSE 82; RESP 14; TEMP 36.5; O2SAT 97
[2019-07-13] MEDS: levETIRAcetam 750 MG Tablet 1500 MG PO (08:31)
[2019-07-13] MEDS: Ferrous Gluconate 324 MG Tablet PO (08:31)
[2019-07-13] MEDS: Pantoprazole Sodium 40 MG Tablet PO (08:31)
[2019-07-13] MEDS: Na Biphos/Potassium Phosphate PACKET 1 PACKET PO (08:32)
[2019-07-13] MEDS: Finasteride 5 MG Tablet PO (08:32)
[2019-07-13] MEDS: Spironolactone 25 MG Tablet 37.5 MG PO (08:32)
[2019-07-13] MEDS: Allopurinol 100 MG Tablet PO (08:32)
[2019-07-13] MEDS: Famotidine 20 MG Tablet PO (08:32)
[2019-07-13] MEDS: Clopidogrel Bisulfate 75 MG Tablet PO (08:32)
[2019-07-13] MEDS: Bumetanide 2 MG Tablet PO (08:32)
[2019-07-13] MEDS: Venlafaxine XR 150 MG Capsule PO (08:32)
[2019-07-13] MEDS: Enoxaparin 40 MG/0.4 ML Syringe SC (08:33)
[2019-07-13] MEDS: HYDROcodone Bitartrate/Apap 5/325 Tablet PO (08:46)
[2019-07-13] MEDS: Menthol/Lanolin/Calamine/Znox 113 GM Tube 1 APPLIC TOPICAL ×2 (08:49→13:00)
--- NOTE | 2019-07-13 09:24 | PCM.DC ---
- Discharge Diagnoses Current Active Problems: Current Active and Chronic Problems (Last Reviewed 03/17/19 @ 13:18 by Carmen Mohan) Weakness (Acute) Fall (Acute) Diarrhea (Acute) Gastroenteritis (Acute) Anxiety and depression (Chronic) Seizure disorder (Chronic) Morbid obesity (Chronic) KYA (obstructive sleep apnea) (Chronic) You will use the following diet at home:: Cardiac Your food should be the consistency of: Regular Your liquids should be the consistency of: Regular/Thin Discharge Activity: Return to Normal Activity Weight Bearing Status: Weight bearing as tolerated Call your doctor if you observe: Fever of 101 or Higher, Shortness of breath, Fainting spells, Swelling in the ankles Instructions: When a Patient Falls, Preventing Falls: Are You At Risk of Falling?, Preventing Falls: Staying Active Allergies/Adverse Reactions: Allergies aspirin Allergy (Verified 07/11/19 10:10) cant remember rxn nickel Allergy (Verified 07/11/19 10:10) Other oxcarbazepine [From Trileptal] Allergy (Verified 07/11/19 10:10) cant remember rxn Medications to take at Discharge Alendronate Sodium [Fosamax] 70 mg PO LEON 12/07/16 Allopurinol [Zyloprim] 100 mg PO QHS 12/07/16 Atorvastatin Calcium [Lipitor] 40 mg PO QHS 12/07/16 Clonazepam [Klonopin] 0.5 mg PO QHS 12/07/16 Clopidogrel Bisulfate [Plavix] 75 mg PO DAILY 12/07/16 Finasteride [Proscar] 5 mg PO DAILY 12/07/16 Levothyroxine [Synthroid] 50 mcg PO DAILY 12/07/16 Olanzapine [Zyprexa Zydis] 5 mg PO QHS 12/07/16 Spironolactone [Aldactone] 37.5 mg PO DAILY 12/07/16 Tiagabine HCl [Gabitril] 12 mg PO BID 12/07/16 Acetaminophen [Tylenol Arthritis] 1,300 mg PO BID 03/23/17 Alfuzosin HCl [Alfuzosin HCl ER] 10 mg PO QHS 03/23/17 Bumetanide [Bumex] 2 mg PO DAILY 03/23/17 ascorbic acid (vitamin C) 500 mg capsule 500 mg PO DAILY@1200 cap 03/17/19 bethanechol chloride 25 mg tablet 25 mg PO TID 03/17/19 calcium-vitamin D3-vitamin K 500 mg-100 unit-40 mcg chewable tablet 1 tab PO DAILY 03/17/19 ferrous gluconate 240 mg (27 mg iron) tablet 240 mg PO DAILY@1200 tab 03/17/19 loperamide 2 mg capsule 4 mg PO Q1-4H PRN 03/17/19 montelukast 10 mg tablet 10 mg PO QHS 03/17/19 pantoprazole 40 mg tablet,delayed release 40 mg PO DAILY 03/17/19 ranitidine 150 mg tablet 150 mg PO DAILY@1700 03/17/19 sucralfate 1 gram tablet 1 g PO TIDCM tab 03/17/19 vitamin B complex and vit C no.3 15 mg-10 mg-50 mg-5 mg-300 mg capsule 1 cap PO DAILY@1200 03/17/19 vitamin E 200 unit capsule 200 unit PO DAILY@1200 03/17/19 Cholecalciferol (Vitamin D3) [D3-2000] 2,000 unit PO QHS 07/11/19 Divalproex Sodium [Depakote ER] 1,000 mg PO TID 07/11/19 Levetiracetam [Keppra] 2,000 mg PO QHS 07/11/19 Magnesium Oxide [Mag-Ox 400] 400 mg PO QHS 07/11/19 [place]-3 Fatty Acids/Fish Oil [[place] 3 1,000 mg Softgel] 2 cap PO BID 07/11/19 Potassium Chloride [Klor-Con M20] 20 meq PO BID 07/11/19 Pregabalin [Lyrica] 200 mg PO TID 07/11/19 Prosight 1 tab PO DAILY@1200 07/11/19 Ropinirole HCl [Requip] 1 mg PO TID 07/11/19 Venlafaxine HCl [Venlafaxine HCl ER] 150 mg PO DAILY 07/11/19 levETIRAcetam tablet [Keppra tablet] 1,500 mg PO DAILY 07/11/19 Primary Care Physician: Becka Hines NP-C [Primary Care Provider] - Please follow up with your Primary Care Physician in: one week Test Results: Test results from this visit will be discussed in further detail at your follow-up appointment, if applicable. Proposed Discharge Date: 07/13/19
--- NOTE | 2019-07-13 09:25 | DS.PCM_ITS ---
Discharge Date and Diagnosis Date of Admission: 07/11/19 Date of Discharge: 07/13/19 - Primary Discharge Diagnosis Active and Suspected Problems (Last Reviewed 03/17/19 @ 13:18 by Carmen Mohan) Weakness (Acute) Fall (Acute) Diarrhea (Acute) Gastroenteritis (Acute) - Secondary Discharge Diagnosis Chronic Problems (Last Reviewed 03/17/19 @ 13:18 by Carmen Mohan) Anxiety and depression (Chronic) Seizure disorder (Chronic) Morbid obesity (Chronic) KYA (obstructive sleep apnea) (Chronic) Sleep apnea (Chronic) Pure hypercholesterolemia (Chronic) Nocturnal hypoxia (Chronic) Shortness of breath (Chronic) Depression (Chronic) Benign essential HTN (Chronic) Hospital Course and Treatment Imaging Results: Diagnostic Data Hip/Pelvis X-Ray 07/11/19 10:40 IMPRESSION: Normal x-ray examination of the pelvis and hip after hemiarthroplasty. Electronically Signed: Kuldeep Louie MD at 11:06 EDT Tel , Service support , Chest X-Ray 07/11/19 14:00 IMPRESSION: No active disease. Electronically Signed: Kuldeep Louie MD at 14:55 EDT Tel , Service support , Procedures: None Summary of Care Provided: The patient is a 68 year old M with an extensive past medical history as listed. He was admitted through the ED on 07/11/2019 with a complaint of low-grade fevers, weakness and fatigue as well as malaise and ongoing diarrhea. He had also sustained a fall from his stay at his assisted living facility resulting in abrasion to the right buttock. On admission, vitals were stable. CBC and BMP were essentially unremarkable. UA showed no evidence of UTI and x-ray of the hip and pelvis showed no acute findings and was only post hemiarthroplasty. He was admitted and managed for debility due to mechanical fall, acute gastroenteritis. He had also complained of upper respiratory symptoms and was found to have an upper respiratory tract infection due to rhinovirus infection. Patient was hydrated with normal saline and CT of chest was negative. Stool enteric pathogen was also negative. His symptoms improved markedly and was evaluated by PT OT and deemed ready to go back to his assisted living facility. Diarrhea resolved and patient remained stable. He was discharged back to assisted living facility on 07/13/2019. He is follow-up with his primary care doctor within 1 week. Patient seen and examined prior to discharge. He had no complaints and felt well. Review of systems is otherwise negative. Labs and vitals reviewed. Home medications reviewed and reconciled. He was ready to go back to his assisted living facility. o/e: Vital Signs Height 5 ft 3 in Weight: 233 lb 12.803 oz Weight in Pounds 233.8 lbs Pulse Ox 92 Temperature 98.0 F Pulse Rate 77 Respiratory Rate 18 Blood Pressure 116/57 Blood Pressure Position Sitting [] General: Alert, Oriented x3, Cooperative, No apparent distress HEENT: Atraumatic, PERRLA, EOMI, Normocephalic Oral: Moist Mucosa Neck: Supple, No JVD, Negative Carotid Bruits Lungs: Clear to auscultation, Normal air movement, No rhonchi, No wheeze, No rales, - - on 2L of oxygen (is his baseline) Cardiovascular: Regular rate, Regular Rhythm, Normal S1, Normal S2, No murmurs Abdomen: Bowel Sounds Present, Soft, Non Tender, Non-Distended, No Hepato- splenomegaly Extremities: No clubbing, No cyanosis, No edema, Capillary Refill Less than 3 Seconds Skin: No rashes, No breakdown Musculoskeletal: No Tenderness to Palpation of Joints or Extremities Lymphatic: No Cervical, Supraclavicular, or Inguinal Adenopathy Neurological: Cranial nerves II-XII grossly intact, Neuro grossly intact, Motor Exam 5/5 strength throughout Psych/Mental Status: Normal Affect, Appropriate, Alert and oriented to time, place, person, mood and affect Plan as above. - Physical Exam Vital Signs Temp Pulse Resp BP Pulse Ox 98.3 F 70 16 122/73 H 95 07/13/19 02:30 07/13/19 02:30 07/13/19 02:30 07/13/19 02:30 07/13/19 08:13 Oxygen Flow Rate (L/min) 2 Oxygen Delivery Method Room Air Weight: 233 lb 12.803 oz Body Mass Index (BMI) 41.4 Intake and Output for Last 24 Hours 07/11/19 07/12/19 07/13/19 23:59 23:59 23:59 Intake Total 1518.33 / 2518.33 5387.50 / 5627.50 480 / 480 Output Total 2400 / 2550 350 / 350 Balance 1518.33 / 1318.33 2987.50 / 3077.50 130 / 130 Microbiology Past 72 Hours 07/11/19 18:40 Enteric Bacteriology - Final Stool 07/11/19 20:00 Respiratory Panel (PCR) - Final Mucosa - Nasopharyngeal Rhinovirus 07/11/19 18:40 C. difficile DNA Amplification - Final Stool Laboratory Tests Past 24 Hrs 07/12/19 07/13/19 07/13/19 05:20 06:55 06:55 WBC 6.4 RBC 4.02 L Hgb 12.7 L Hct 39.2 L MCV 97.5 H MCH 31.6 MCHC 32.4 RDW Std Deviation 45.1 H RDW Coeff of Ronna 12.5 Plt Count 152 MPV 8.8 Immature Gran % (Auto) 0.600 Neut % (Auto) 40.9 L Lymph % (Auto) 44.1 H Petroleum % (Auto) 10.6 H Eos % (Auto) 3.6 Baso % (Auto) 0.2 Absolute Neuts (auto) 2.6 Absolute Lymphs (auto) 2.83 Nucleated RBC % 0 Sodium 146 H Potassium 3.8 Chloride 111 H Carbon Dioxide 27.0 Anion Gap 8 BUN 8 Creatinine 0.61 L Estim Creat Clear Calc 56.11 Est GFR (MDRD) Af Amer 168 Est GFR (MDRD) Non-Af 139 BUN/Creatinine Ratio 13.1 Glucose 83 Calcium 8.6 Phosphorus 2.3 L Magnesium 2.0 Discharge Diet: Low fat/ Low Cholesterol Discharge Activity: Return to Normal Activity Weight Bearing Status: Weight bearing as tolerated Call your doctor if you observe: Fever of 101 or Higher, Shortness of breath, Fainting spells, Swelling in the ankles Home Medications: Medications to take at Discharge Alendronate Sodium [Fosamax] 70 mg PO LEON 12/07/16 Allopurinol [Zyloprim] 100 mg PO QHS 12/07/16 Atorvastatin Calcium [Lipitor] 40 mg PO QHS 12/07/16 Clonazepam [Klonopin] 0.5 mg PO QHS 12/07/16 Clopidogrel Bisulfate [Plavix] 75 mg PO DAILY 12/07/16 Finasteride [Proscar] 5 mg PO DAILY 12/07/16 Levothyroxine [Synthroid] 50 mcg PO DAILY 12/07/16 Olanzapine [Zyprexa Zydis] 5 mg PO QHS 12/07/16 Spironolactone [Aldactone] 37.5 mg PO DAILY 12/07/16 Tiagabine HCl [Gabitril] 12 mg PO BID 12/07/16 Acetaminophen [Tylenol Arthritis] 1,300 mg PO BID 03/23/17 Alfuzosin HCl [Alfuzosin HCl ER] 10 mg PO QHS 03/23/17 Bumetanide [Bumex] 2 mg PO DAILY 03/23/17 ascorbic acid (vitamin C) 500 mg capsule 500 mg PO DAILY@1200 cap 03/17/19 bethanechol chloride 25 mg tablet 25 mg PO TID 03/17/19 calcium-vitamin D3-vitamin K 500 mg-100 unit-40 mcg chewable tablet 1 tab PO DAILY 03/17/19 ferrous gluconate 240 mg (27 mg iron) tablet 240 mg PO DAILY@1200 tab 03/17/19 loperamide 2 mg capsule 4 mg PO Q1-4H PRN 03/17/19 montelukast 10 mg tablet 10 mg PO QHS 03/17/19 pantoprazole 40 mg tablet,delayed release 40 mg PO DAILY 03/17/19 ranitidine 150 mg tablet 150 mg PO DAILY@1700 03/17/19 sucralfate 1 gram tablet 1 g PO TIDCM tab 03/17/19 vitamin B complex and vit C no.3 15 mg-10 mg-50 mg-5 mg-300 mg capsule 1 cap PO DAILY@1200 03/17/19 vitamin E 200 unit capsule 200 unit PO DAILY@1200 03/17/19 Cholecalciferol (Vitamin D3) [D3-2000] 2,000 unit PO QHS 07/11/19 Divalproex Sodium [Depakote ER] 1,000 mg PO TID 07/11/19 Levetiracetam [Keppra] 2,000 mg PO QHS 07/11/19 Magnesium Oxide [Mag-Ox 400] 400 mg PO QHS 07/11/19 Washington-3 Fatty Acids/Fish Oil [[place] 3 1,000 mg Softgel] 2 cap PO BID 07/11/19 Potassium Chloride [Klor-Con M20] 20 meq PO BID 07/11/19 Pregabalin [Lyrica] 200 mg PO TID 07/11/19 Prosight 1 tab PO DAILY@1200 07/11/19 Ropinirole HCl [Requip] 1 mg PO TID 07/11/19 Venlafaxine HCl [Venlafaxine HCl ER] 150 mg PO DAILY 07/11/19 levETIRAcetam tablet [Keppra tablet] 1,500 mg PO DAILY 07/11/19 Primary Care Physician: Becka Hines, MERARY-C [Primary Care Provider] - Please follow up with your Primary Care Physician in: one week Patient Instructions: When a Patient Falls, Preventing Falls: Are You At Risk of Falling?, Preventing Falls: Staying Active Disposition: Asstd Living/Non-Skill NH Minutes spent on discharge:: 40 Patient Condition:: Stable Medical Necessity - Tobacco Use Smoking Status: Never smoker Tobacco Use: Non-smoker Meaningful Use Info Meaningful Use Diagnoses (Choose all that apply): None applicable Code Visit OBSV E&M: 81427 Observation care discharge
--- NOTE | 2019-07-13 10:57 | CASEMGMT ---
Social Work Note Pt is discharging back to [facility] today. SW spoke with pt regarding discharge and transportation. Pt states that he will need transportation to be arranged. SW placed a call to [facility] and arranged transportation via wheelchair van for 1:00pm. Transportation form completed and given to audio visual secretary and copy placed on pt's chart. SW faxed completed discharge instructions to [facility] and wrote on fax coversheet transportation time. RN and pt updated on transportation time. Plan: Discharge back to [facility] today with [facility] transporting via wheelchair van at 1:00pm ALYSSA Nathan
[2019-07-13 13:00] VITALS: BP 116/57; PULSE 77; RESP 18; TEMP 36.7; O2SAT 92
== END 2019-07-13 13:06 | disposition home or self-care (01) ==
LOC: ED 13:25 → MS3 13:49
PROVIDERS: Admitting Provider Family Medicine; Emergency Provider Emergency Medicine; Family Provider Nurse Practitioner Adult Health; PCP Nurse Practitioner Adult Health; Referring Provider Family Medicine; Visit Provider Student in an Organized Health Care Education/Training Program
DX: K52.9 Noninfective gastroenteritis and colitis, unspecified (principal); S30.810A Abrasion of lower back and pelvis, initial encounter; I10 Essential (primary) hypertension; F32.9 Major depressive disorder, single episode, unspecified; F41.9 Anxiety disorder, unspecified; G40.909 Epilepsy, unspecified, not intractable, without status epilepticus; G47.33 Obstructive sleep apnea (adult) (pediatric); E66.01 Morbid (severe) obesity due to excess calories; N40.0 Benign prostatic hyperplasia without lower urinary tract symptoms; G25.81 Restless legs syndrome; K21.9 Gastro-esophageal reflux disease without esophagitis; E03.9 Hypothyroidism, unspecified; M10.9 Gout, unspecified; B97.89 Other viral agents as the cause of diseases classified elsewhere; J06.9 Acute upper respiratory infection, unspecified; D50.9 Iron deficiency anemia, unspecified; W07.XXXA Fall from chair, initial encounter; Y92.099 Unspecified place in other non-institutional residence as the place of occurrence of the external cause; E78.5 Hyperlipidemia, unspecified; Z68.41 Body mass index [BMI] 40.0-44.9, adult; Z71.3 Dietary counseling and surveillance; Z79.899 Other long term (current) drug therapy; Z79.02 Long term (current) use of antithrombotics/antiplatelets; Z85.038 Personal history of other malignant neoplasm of large intestine
CPT/HCPCS: 36415; 71046; 73502; 80048; 80053; 80076; 80164; 81001; 83735; 84100; 85025; 87493; 87506; 87633; 96360; 96361; 96372; 97163; 97166; 97530; 97802; 99218; 99285; J7030; P9612; A4216; G0378

== ENCOUNTER → 2019-07-31 | Outpatient (CLI) | payer MEDICARE, SELFPAY ==
[2019-07-11 15:39] VITALS: BMI 41.4
--- NOTE | 2019-07-31 13:00 | SP.MBSS_ITS ---
PRIMARY / SECONDARY DIAGNOSIS: dysphagia (R13.10) REFERRING PHYSICIAN: ZACKERY Aldrich CURRENT DIET: regular textures, thin liquids. DENTITION: WFL MENTAL STATUS: sufficient to participate RESPIRATORY STATUS: O2 via room air REASON FOR REFERRAL: The Patient is a 68 year old male referred for a modified barium swallow (MBS) study to objectively assess the Patients oropharyngeal swallow function under fluoroscopy secondary to concerns with ingestion particularly during intake of medications. MEDICAL HISTORY: Seizure disorder, colon cancer, depression, hyperlipidemia, benign essential hypertension, benign prostate hyperplasia, status post hip replacement. PREVIOUS MODIFIED BARIUM SWALLOW STUDY: None. ADDITIONAL OBJECTIVE ASSESSMENT RESULTS: 07/11/2019 chest x-ray revealed no active disease. 11/10/2018 CT revealed findings suggestive of normal pressure hydrocephalus; essentially no change. ASSESSMENT PARAMETERS: The Patient participated in a Modified Barium Swallow (MBS) study on 07/31/2019. Dr. Lynn was the radiologist present for this evaluation. This study was recorded in the lateral view and images were sent to PACs for storage. Scoring was completed through each trial using the 8-point Penetration-Aspiration Scale (PAS) and summarized via the Modified Barium Swallow Impairment Profile (MBSImP) and the Bolus Residue Scale (BRS), with severity scoring through the Dysphagia Severity Rating Scale (DSRS) and the Swallowing Performance Scale (PSP), and recommended diet textures through the International Dysphagia Diet Standardisation Initiative (IDDSI). RESULTS OF THE EVALUATION: The Patient presents with mild oropharyngeal dysphagia (DSRS: 2; SPS: 3) without penetration or aspiration. OBJECTIVE ASSESSMENT OF SWALLOW FUNCTION (QUANTITATIVE ? PER TRIAL): PENETRATION / ASPIRATION SCALE (SKINNER): 1 = does not enter airway 2 = enters airway/above vocal folds/ejected 3 = enters airway/above vocal folds/not ejected 4 = enters airway/contacts vocal folds/ejected 5 = enters airway/contacts vocal folds/not ejected 6 = enters airway/below vocal folds/ejected 7 = enters airway/below vocal folds/not ejected despite effort 8 = enters airway/below vocal folds/no effort PENETRATION / ASPIRATION SCALE (SCORE): Thin liquid - 5 mL tsp.: 1 Thin liquids via cup (single sip): 1 Thin liquids via cup (single sip): 1 Thin liquids via straw (single sip): 1 Thin liquids via straw (sequential swallows): 1 Pudding via spoon: 1 Regular textured cookie: 1 Thin liquids via straw (single sip): 1 OBJECTIVE ASSESSMENT OF SWALLOW FUNCTION (QUANTITATIVE ? AGGREGATE): MODIFIED BARIUM SWALLOW IMPAIRMENT PROFILE (MBSImP) LABIAL SEAL: 2 (of 4) escape beyond interlabial space; no extension TONGUE CONTROL: 3 (of 3) posterior escape > 50% BOLUS PREPARATION / MASTICATION: 1 (of 3) slow prolonged; complete recollection BOLUS TRANSPORT / LINGUAL MOTION: 3 (of 4) repetitive / disorganized motion ORAL RESIDUE: 1 (of 4) trace residue lining oral structures INITIATION OF PHARYNGEAL SWALLOW: 1 (of 4) valleculae SOFT PALATE ELEVATION: 0 (of 4) no bolus between soft palate & pharyngeal wall LARYNGEAL ELEVATION: 2 (of 3) minimal superior movement / approximation ANTERIOR HYOID EXCURSION: 1 (of 2) partial movement EPIGLOTTIC MOVEMENT: 1 (of 2) partial inversion LARYNGEAL VESTIBULE CLOSURE: 0 (of 2) complete closure PHARYNGEAL STRIPPING WAVE: 0 (of 2) present / complete PE SEGMENT OPENIN (of 3) complete distension / duration; no obstruction TONGUE BASE RETRACTION: 1 (of 4) trace column of contrast PHARYNGEAL RESIDUE: 1 (of 4) trace residue ESOPHAGEAL BOLUS CLEARANCE: could not view BOLUS RESIDUE SCALE (BRS): 2 (of 6) residue in valleculae DYSPHAGIA SEVERITY RATING SCALE (DSRS): 2 (mild) SWALLOWING PERFORMANCE SCALE (SPS): 3 (mild) OBJECTIVE ASSESSMENT OF SWALLOW FUNCTION (QUALITATIVE): ORAL PREPARATORY PHASE: prolonged mastication with initial anterior munching quality; impaired anterior bolus containment during oral presentation / oral manipulation with thin liquids. ORAL TRANSITIONAL PHASE: overall sufficient bolus transportation with intermittent lingual discoordination (mild undulations); sufficient oral clearance; premature posterior bolus loss particularly with thin liquids without penetration / aspiration identified during the study, though would place the Patient at higher risk for occurrence. PHARYNGEAL PHASE: no clear signs of pharyngeal dyssynchrony; what appears to be a reduction in hyolaryngeal excursion and duration though in isolation this may lack clinically significance, and is by no means clear; no signs of pharyngeal dysmotility; no clear signs of velopharyngeal impairments. ESOPHAGEAL PHASE: no clear esophageal phase abnormalities observed, though highly likely complicated by the Patients significant kyphotic posture. 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 DYSPHAGIA ASSOCIATED MEDICAL CONSIDERATIONS / INTERVENTION CONSIDERATIONS: The Patient may require intervention to reduce the risk of malnutrition, with considerations for food enrichment, oral nutritional supplementation, and possible considerations for alternative means of nutrition. Would strongly consider a referral to a registered clinical dietitian. INTERVENTION RECOMMENDATIONS AND CONSIDERATIONS: The Patient may benefit from additional skilled speech-language intervention targeting diet texture management and training / implementation of recommended compensatory strategies. Would consider training and implementation of oropharyngeal strengthening exercises to facilitate improved oropharyngeal strength and coordination, though significant improvements are unlikely due to the attributed etiology and duration of the Patients swallow complications, and primary complaint (pills getting stuck, most likely attributed to esophageal dysmotility when considering these findings). POST ASSESSMENT EDUCATION: Results and recommendations were discussed with the Patient and Patients family immediately following MBS completion, with the Patient and Patients family verbalizing understanding and agreement with all recommendations and education provided. I provided brief overview of signs and symptoms of aspiration, with recommendations for the Patient to further discuss symptoms with the Patients primary care provider. DIET TEXTURE RECOMMENDATIONS: Will recommend a regular ? soft textured (IDDSI: 6), thin liquid diet (IDDSI: 0) diet RECOMMENDED COMPENSATORY STRATEGIES: Consider cutting tougher textures into bite sized pieces, reduced bolus volume / rate of ingestion, seated upright at 90 degrees during PO intake, remain upright for 30-60 minutes post meal (GERD precaution), would consider medications one at a time with purees at the Patients discretion. IMAGE COUNT: [id number] Luigi Gregory M.A., RAGHU-DRAFTING LAYOUT WORKER, CBIS MBSImP Certified, LSVT Certified [facility] Speech-Language Pathology Department [email or web address]
--- NOTE | 2019-07-31 13:05 | RAD_ITS ---
STUDY: SWALLOWING STUDY REASON FOR EXAM: Male, 68 years old. Dysphagia. TECHNIQUE: The examination was performed with Speech Pathology in attendance. Under fluoroscopic observation, the patient ingested thin barium, thick barium, barium pudding, and barium coated cracker. FLUOROSCOPY TIME: 2:42 minutes/seconds. 2178 fluoroscopic images were obtained. RADIOLOGIST INVOLVEMENT: Radiologist was present and providing direct supervision. COMPARISON: None. FINDINGS: The following was observed during swallowing of the various mixtures of barium: Thin Barium: There was no evidence of aspiration or laryngeal penetration. Barium Pudding: There was no evidence of aspiration or laryngeal penetration. Barium Coated Cracker: There was no evidence of aspiration or laryngeal penetration. RAD/Swallowing Function w/Video IMPRESSION: Normal tailored barium swallow study. No evidence of increased risk for aspiration. The swallow study findings were discussed with the patient by the speech pathologist at the conclusion of the examination. Please see speech pathology report for more information and recommendations. Electronically Signed: Pieter Lynn, at 14:04 EDT , Service support ,
== END | disposition home or self-care (01) ==
LOC: RAD 13:03
PROVIDERS: Family Provider Nurse Practitioner Adult Health; PCP Nurse Practitioner Adult Health; Referring Provider Nurse Practitioner Adult Health; Visit Provider Nurse Practitioner Adult Health
DX: R13.10 Dysphagia, unspecified (principal)
CPT/HCPCS: 74230; 92611

== ENCOUNTER 2019-08-30 05:42 | Inpatient (IN) | payer MEDICARE, MEDICAID, SELFPAY ==
[2019-07-11 15:39] VITALS: BMI 41.4
[2019-08-30] VITALS (8 sets, daily range): BP systolic 109–155; BP diastolic 52–74; PULSE 78–105; RESP 16–18; TEMP 36.6–37.2; O2SAT 93–97; BMI 40.9
[2019-08-30 06:11] LABS: Bedside Glucose 111 mg/dL (70-110)
--- NOTE | 2019-08-30 06:37 | CT_ITS ---
STUDY: CT BRAIN WITHOUT CONTRAST REASON FOR EXAM: Male, 68 years old. Seizure RADIATION DOSAGE (If Supplied By Facility): CTDIvol = ( 44.99 ) mGy, DLP = ( 796.11 ) mGycm TECHNIQUE: Transaxial CT imaging of the brain was performed without administration of intravenous contrast material. Individualized dose optimization techniques were used for this CT. COMPARISON: No relevant priors. FINDINGS: Normal soft tissue structures. Normal calvarium. There is mild cerebral atrophy with widening of the extra-axial spaces and ventricular dilatation. There are areas of decreased attenuation within the white matter tracts of the supratentorial brain, consistent with microvascular disease changes. Normal basal ganglia and thalami. Normal brainstem. Normal cerebellum. There is no intracranial hemorrhage. There are no findings of an acute ischemic infarction. Normal visualized paranasal sinuses. CT/Brain/Head without Contrast IMPRESSION: Chronic involutional changes of the brain. Electronically Signed: Terrie Hollis, at 7:55 EST Tel , Service support ,
--- NOTE | 2019-08-30 06:38 | CT_ITS ---
STUDY: CT CERVICAL SPINE WITHOUT CONTRAST REASON FOR EXAM: Male, 68 years old. Seizure, fall RADIATION DOSAGE (If Supplied By Facility): CTDIvol = ( 25.61 ) mGy, DLP = ( 516.37 ) mGycm TECHNIQUE: High resolution transaxial imaging was performed without contrast material. Sagittal and coronal images were reconstructed. Individualized dose optimization techniques were used for this CT. COMPARISON: November 05, 2016 FINDINGS: Craniocervical junction is intact. Degenerative changes are present involving the atlantodental articulation. Normal odontoid process. Alignment is within normal limits. Multilevel degenerative disease is present. No acute fractures or dislocations are seen. CT/Spine Cervical without Contras IMPRESSION: No acute osseous injury is evident. Comment: MRI is more sensitive than CT in detecting cord injury, ligament injury, and epidural hematoma. If there is continued clinical concern for any of these entities, MRI correlation should be considered if possible. Electronically Signed: Héctor Hugo MD at 7:41 EST Tel , Service support ,
--- NOTE | 2019-08-30 06:38 | EKG12_ITS ---
Test Reason : WEAKNESS Blood Pressure : / mmHG Vent. Rate : 088 BPM Atrial Rate : 088 BPM P-R Int : 152 ms QRS Dur : 090 ms QT Int : 360 ms P-R-T Axes : 047 -42 006 degrees QTc Int : 435 ms Normal sinus rhythm Left axis deviation /LAHB Abnormal ECG When compared with ECG of 10-NOV-2018 13:11, No significant change was found Confirmed by BRYAN MUÑIZ ([id number]), associate editor ALEXUS CANTOR ([id number]) on 09/10/2019 10:52:30 AM Referred By: [place] Confirmed By:BRYAN MUÑIZ
--- NOTE | 2019-08-30 06:39 | ED.DCSUM_ITS ---
History of Present Illness Chief Complaint: Weakness Narrative: Patient is a 68-year-old male who presents with a seizure. He does have a known history of a seizure disorder. He has been compliant with his antiepileptics. He reports he had a grand mal seizure last night and slid out of his chair. He was on the floor and was unable to get up. He does note that he has weakness at baseline. He normally ambulates with a walker. It is not unusual that he was unable to get up off the floor after falling. He complains of pain where he hit his head along the right side of his head. He does not really have an associated headache. He believes he takes a blood thinner but is uncertain what. He otherwise denies complaints. He denies recent illness such as chest pain shortness of breath cough vomiting diarrhea or rashes. No extremity injuries from the fall. Past Medical History - Allergies and Home Meds Allergies/Adverse Reactions: Allergies aspirin Allergy (Verified 07/11/19 10:10) cant remember rxn nickel Allergy (Verified 07/11/19 10:10) Other oxcarbazepine [From Trileptal] Allergy (Verified 07/11/19 10:10) cant remember rxn Primary Care Physician: Becka Hines, EQUIPMENT DETAILER-C [Primary Care Provider] - Past Medical History: - - Epilepsy hypothyroidism, hyperlipidemia Surgical History: - - Cholecystectomy, right total hip replacement. Smoking Status: Never smoker - Family History Paternal Family History: Family History (Last Reviewed 03/17/19 @ 13:18 by Carmen Mohan) Mother COPD (chronic obstructive pulmonary disease) CAD (coronary artery disease) Father Cancer Heart disease Myocardial infarction CAD (coronary artery disease) Aunt CAD (coronary artery disease) Myocardial infarction Family History: Reports: Cancer, High Cholesterol, Heart Disease, Hypertension Maternal Family History: Family History (Last Reviewed 03/17/19 @ 13:18 by Carmen Mohan) Mother COPD (chronic obstructive pulmonary disease) CAD (coronary artery disease) Father Cancer Heart disease Myocardial infarction CAD (coronary artery disease) Aunt CAD (coronary artery disease) Myocardial infarction Family History: Reports: Heart Disease, Hypertension, Pulmonary Disease Review of Systems All systems negative except as indicated General: Denies: Fever Eyes: Denies: Visual changes - bilaterally ENT: Denies: Bilateral ear pain Cardiovascular: Denies: Chest pain Respiratory: Denies: Dyspnea Gastrointestinal: Denies: Abdominal pain, Nausea, Vomiting, Diarrhea Genitourinary: Denies: Dysuria Musculoskeletal: Denies: Myalgias, Arthralgias Skin: Denies: Rash Neurological: Denies: Headache Physical Exam Vital Signs/Narrative: Vital Signs Temp Pulse Resp BP Pulse Ox 08/30/19 05:43 99.0 F 90 16 126/68 H 95 Inital Vital Signs reviewed: Yes General: Well nourished Head: Normocephalic, - - Ecchymosis to the right parietal scalp, no scalp laceration Eyes: EOMI ENT: Moist mucous membranes Neck: Supple Cardiovascular: Regular rate, Regular rhythm Respiratory: No distress, CTA bilaterally Abdomen: Soft, Nontender Extremities: Nontender, - - Active full range of motion x4 without pain Skin: Normal color Neurological: Alert, Oriented x3, - - No focal or lateralizing neurological deficits Psychological: Normal affect Diagnostic/Tx/Re-eval 08/30/19 06:37 Brain/Head without Contrast [CT] Stat 08/30/19 06:38 Spine Cervical without Contras [CT] Stat 08/30/19 07:04 Chest 1 View (Portable) [RAD] Stat Laboratory Results 08/30/19 08/30/19 08/30/19 06:05 06:48 06:48 WBC 7.4 RBC 4.49 L Hgb 14.1 Hct 41.0 MCV 91.3 MCH 31.4 MCHC 34.4 RDW Std Deviation 41.6 RDW Coeff of Ronna 12.5 Plt Count 115 L MPV 8.9 Immature Gran % (Auto) 1.100 H Neut % (Auto) 69.8 Lymph % (Auto) 12.7 L [place] % (Auto) 16.0 H Eos % (Auto) 0.0 Baso % (Auto) 0.4 Absolute Neuts (auto) 5.2 Absolute Lymphs (auto) 0.94 Nucleated RBC % 0 Sodium 138 Potassium 4.2 Chloride 105 Carbon Dioxide 25.0 Anion Gap 8 BUN 13 Creatinine 0.75 Estim Creat Clear Calc 56.11 Est GFR (MDRD) Af Amer 132 Est GFR (MDRD) Non-Af 109 BUN/Creatinine Ratio 17.3 Glucose 97 Calcium 8.7 Total Bilirubin 0.50 AST 75 H ALT 36 Alkaline Phosphatase 45 Total Creatine Kinase Total Protein 6.4 Albumin 3.0 L Globulin 3.4 Albumin/Globulin Ratio 0.9 POC Glucose 111 H 08/30/19 06:48 WBC RBC Hgb Hct MCV MCH MCHC RDW Std Deviation RDW Coeff of Ronna Plt Count MPV Immature Gran % (Auto) Neut % (Auto) Lymph % (Auto) [place] % (Auto) Eos % (Auto) Baso % (Auto) Absolute Neuts (auto) Absolute Lymphs (auto) Nucleated RBC % Sodium Potassium Chloride Carbon Dioxide Anion Gap BUN Creatinine Estim Creat Clear Calc Est GFR (MDRD) Af Amer Est GFR (MDRD) Non-Af BUN/Creatinine Ratio Glucose Calcium Total Bilirubin AST ALT Alkaline Phosphatase Total Creatine Kinase 1585 H Total Protein Albumin Globulin Albumin/Globulin Ratio POC Glucose - Medical Decision Making Laboratory studies as above notable for CPK of 1585. Patient reports that he was on the floor for between 8 and 12 hours. With attempts at ambulation here he was very weak and unsteady. Although his CPK elevation is mild I do believe this needs trended. He will be treated with IV fluids. Chest x-ray, CT head, CT cervical spine ordered and on my review show no obvious acute abnormalities. I spoke to the hospitalist who agrees to admit but did want to wait on the official radiology report for imaging prior to transfer to the floor. ED Disposition - Plan for ED Patient: Disposition: Acute Care Hospital [facility] Diagnosis: Weakness, Elevated CPK Referrals: Becka Hines, EQUIPMENT DETAILER-C [Primary Care Provider] -
--- NOTE | 2019-08-30 07:04 | RAD_ITS ---
STUDY: X-RAY CHEST REASON FOR EXAM: Male, 68 years old. Seizure TECHNIQUE: Single AP portable view of the chest. COMPARISON: None. FINDINGS: The lungs are clear and expanded. There is no demonstrated pleural abnormality. Normal size heart. Normal mediastinum and crissy. Normal visualized pulmonary arteries. There is atherosclerotic calcification of the aortic arch with tortuosity. There is a levoscoliosis of the thoracic spine. There is degenerative osteoarthritis of the bilateral shoulders. There is no demonstrated abnormality of the visualized soft tissue structures of the upper abdomen. RAD/Chest 1 View (Portable) IMPRESSION: Degenerative changes, as described above. No demonstrated acute cardiopulmonary process. Electronically Signed: Terrie Hollis, at 7:40 EST Tel , Service support ,
[2019-08-30 07:07] LABS: Absolute Lymphocyte Count 0.94 X10^3/uL (0.83-4.51); Absolute Neutrophil Count 5.2 X10^3/uL (2.0-7.7); Basophil# 0.03 X10^3/uL; Basophil% 0.4 % (0-1); Hemoglobin 14.1 g/dL (13.0-16.5); Lymphocyte # 0.94 X10^3/ul (4.0); Lymphocyte % 12.7 % (19-41); Mean Corp Hgb Conc 34.4 g/dL (32-36); Mean Corpuscular Hgb 31.4 pg (27.0-32.0); Mean Corpuscular Volume 91.3 fL (80-94); Mean Platelet Vol. 8.9 fl (6.2-12.0); Monocyte# 1.18 X10^3/uL; NRBC Flagged by Analyzer 0 % (0-5); Neutrophil # 5.15 X10^3/uL (2.7-7.7); Neutrophil % 69.8 % (47-70); Platelet Count 115 K/mm3 (150-450); RBC Distribution Width CV 12.5 % (11.6-14.6); RBC Distribution Width SD 41.6 fl (35.1-43.9); Red Blood Count 4.49 M/mm3 (4.6-6.2); White Blood Count 7.4 K/mm3 (4.4-11.0)
[2019-08-30 07:15] LABS: ALB/GLOB Ratio 0.9 RATIO (0.9-2.4); AST(SGOT) 75 U/L (15-37); Alanine Aminotransfer ALT/SGPT 36 U/L (16-61); Alkaline Phosphatase 45 U/L (45-117); Anion Gap 8 (5-15); BUN 13 mg/dL (7-18); BUN/Creat Ratio 17.3 RATIO (10-20); Calcium,Total 8.7 mg/dL (8.5-10.1); Chloride 105 mmol/L (98-107); Creatinine, Serum 0.75 mg/dL (0.70-1.30); EST Glomerular Filtration Rate 109 mL/min (>60); Est Glom Filt Rate - Afr Amer 132 mL/min (>60); Estimated Creatinine Clearance 56.11 ml/min; Globulin 3.4 g/dL (2.2-4.2); Glucose 97 mg/dL (74-106); Potassium 4.2 mmol/L (3.5-5.1); Protein, Total 6.4 g/dL (6.4-8.2); Sodium Level 138 mmol/L (136-145)
[2019-08-30 07:28] LABS: CPK Total, Creatine Kinase 1585 U/L (39-308)
[2019-08-30] MEDS: 0.9% Normal Saline 1,000 ML 999 ML IV (07:44)
--- NOTE | 2019-08-30 07:44 | HP.PCM_ITS ---
Problem List (1) Weakness Status: Acute (2) Anxiety and depression Status: Chronic (3) Seizure disorder Status: Chronic (4) Morbid obesity Status: Chronic (5) KYA (obstructive sleep apnea) Status: Chronic (6) Elevated CPK Status: Acute History of Present Illness Date of Admission: 08/30/19 Chief Complaint: Seizure The patient is a 68 year old M with past medical history of hypertension, upper lipidemia, seizure disorder, schizophrenia, morbid obesity resident in an sister living facility who was admitted with breakthrough seizure which was described as generalized tonic-clonic that happened yesterday. Patient was said to be on the floor and could not get up. He has been compliant with medications as he is in assisted living facility and he gets his medications from nurses. Patient is a poor historian. Vitals in ED showed temperature of 90 7.9F, heart rate was 90, blood pressure 117/60, his rate was 18, SPO2 was 97% on room air. WBC count 7.4, hemoglobin 14.1, platelet count is 115, CMP is unremarkable except for AST of 75. CT scan of the brain as well as cervical spine CT and chest x-ray were unremarkable Past Medical History Past Medical History (Chronic Problems): Chronic Problems (Last Reviewed 03/17/19 @ 13:18 by Carmen Mohan) Anxiety and depression (Chronic) Seizure disorder (Chronic) Morbid obesity (Chronic) KYA (obstructive sleep apnea) (Chronic) Sleep apnea (Chronic) Pure hypercholesterolemia (Chronic) Nocturnal hypoxia (Chronic) Shortness of breath (Chronic) Depression (Chronic) Benign essential HTN (Chronic) Medical History: Medical History (Last Reviewed 03/17/19 @ 13:18 by Carmen Mohan) Sleep apnea (Chronic) G47.30 Pure hypercholesterolemia (Chronic) E78.00 Depression (Chronic) F32.9 Benign essential HTN (Chronic) I10 BPH (benign prostatic hyperplasia) N40.0 History of seizure Z87.898 History of colon cancer Z85.038 BPH (benign prostatic hyperplasia) (Inactive) Hyperlipemia (Inactive) E78.5 Seizure disorder (Inactive) G40.909 Allergies aspirin Allergy (Verified 07/11/19 10:10) cant remember rxn nickel Allergy (Verified 07/11/19 10:10) Other oxcarbazepine [From Trileptal] Allergy (Verified 07/11/19 10:10) cant remember rxn Home Medications: Ambulatory Orders Medication Instructions Recorded Alendronate Sodium [Fosamax] 70 mg PO LEON 12/07/16 Allopurinol [Zyloprim] 100 mg PO QHS 12/07/16 Atorvastatin Calcium [Lipitor] 40 mg PO QHS 12/07/16 Clonazepam [Klonopin] 0.5 mg PO QHS 12/07/16 Clopidogrel Bisulfate [Plavix] 75 mg PO DAILY 12/07/16 Finasteride [Proscar] 5 mg PO DAILY 12/07/16 Levothyroxine [Synthroid] 50 mcg PO DAILY 12/07/16 Olanzapine [Zyprexa Zydis] 5 mg PO QHS 12/07/16 Spironolactone [Aldactone] 37.5 mg PO DAILY 12/07/16 Tiagabine HCl [Gabitril] 12 mg PO BID 12/07/16 Acetaminophen [Tylenol Arthritis] 1,300 mg PO BID 03/23/17 Alfuzosin HCl [Alfuzosin HCl ER] 10 mg PO QHS 03/23/17 Bumetanide [Bumex] 2 mg PO DAILY 03/23/17 ascorbic acid (vitamin C) 500 mg 500 mg PO DAILY@1200 cap 03/17/19 capsule bethanechol chloride 25 mg tablet 25 mg PO TID 03/17/19 calcium-vitamin D3-vitamin K 500 1 tab PO DAILY 03/17/19 mg-100 unit-40 mcg chewable tablet ferrous gluconate 240 mg (27 mg 240 mg PO DAILY@1200 tab 03/17/19 iron) tablet loperamide 2 mg capsule 4 mg PO Q1-4H PRN 03/17/19 montelukast 10 mg tablet 10 mg PO QHS 03/17/19 pantoprazole 40 mg tablet,delayed 40 mg PO DAILY 03/17/19 release ranitidine 150 mg tablet 150 mg PO DAILY@1700 03/17/19 sucralfate 1 gram tablet 1 g PO TIDCM tab 03/17/19 vitamin B complex and vit C no.3 1 cap PO DAILY@1200 03/17/19 15 mg-10 mg-50 mg-5 mg-300 mg capsule vitamin E 200 unit capsule 200 unit PO DAILY@1200 03/17/19 Cholecalciferol (Vitamin D3) 2,000 unit PO QHS 10/08/19 [D3-2000] Divalproex Sodium [Depakote ER] 1,000 mg PO TID 07/11/19 Levetiracetam [Keppra] 2,000 mg PO QHS 07/11/19 Magnesium Oxide [Mag-Ox 400] 400 mg PO QHS 07/11/19 [place]-3 Fatty Acids/Fish Oil 2 cap PO BID 07/11/19 [[place] 3 1,000 mg Softgel] Potassium Chloride [Klor-Con M20] 20 meq PO BID 07/11/19 Pregabalin [Lyrica] 200 mg PO TID 07/11/19 Prosight 1 tab PO DAILY@1200 07/11/19 Ropinirole HCl [Requip] 1 mg PO TID 07/11/19 Venlafaxine HCl [Venlafaxine HCl 150 mg PO DAILY 07/11/19 ER] levETIRAcetam tablet [Keppra 1,500 mg PO DAILY 07/11/19 tablet] Surgical History: Surgical History (Last Reviewed 03/17/19 @ 13:18 by Carmen Mohan) History of cholecystectomy Z90.49 History of right hip replacement Z96.641 Surgical History: - - Cholecystectomy, right total hip replacement. Psychiatric History: Anxiety, Depression Smoking Status: Never smoker Tobacco Use: Non-smoker Alcohol: None Drugs: None - *Family History Paternal Family History: Family History (Last Reviewed 03/17/19 @ 13:18 by Carmen Mohan) Mother COPD (chronic obstructive pulmonary disease) CAD (coronary artery disease) Father Cancer Heart disease Myocardial infarction CAD (coronary artery disease) Aunt CAD (coronary artery disease) Myocardial infarction History Items: Cancer, High Cholesterol, Heart Disease, Hypertension Maternal Family History: Family History (Last Reviewed 03/17/19 @ 13:18 by Carmen Mohan) Mother COPD (chronic obstructive pulmonary disease) CAD (coronary artery disease) Father Cancer Heart disease Myocardial infarction CAD (coronary artery disease) Aunt CAD (coronary artery disease) Myocardial infarction History Items: Heart Disease, Hypertension, Pulmonary Disease Review of Systems Constitutional: Reports: Malaise, Weakness, Fatigue. Denies: Anorexia, Chills, Fever, Weight Change Eyes: Denies: Blurred vision, Cataracts, Conjunctivae Inflammation, Double vision, Pain, Redness, Vision Change HEENT: Denies: Difficulty Hearing, Difficulty Swallowing, Head Aches, Hearing Changes, Sinus Congestion, Sinus Drainage Cardiovascular: Denies: Chest Pain, Chest Pressure, Palpitations, Paroxysmal Noc. Dyspnea Respiratory: Denies: Cough, Hemoptysis, Shortness of breath at rest, Shortness of breath upon exertion, Sputum production Gastrointestinal: Denies: Abdominal Pain, Constipation, Hematemesis, Hematochezia, Nausea, Vomiting Genitourinary: Denies: Dysuria, Incontinence, Nocturia Musculoskeletal: Denies: Joint Pain, Joint stiffness, Joint swelling, Joint Tenderness Skin: Denies: Pruritis, Rash, Wounds Neurological: Denies: Difficulty swallowing, Focal weakness, Numbness, Tingling Psychiatric: Denies: Anxiety, Depression, Homicidal Ideations, Suicidal Ideations Hematologic/ Lymphatic: Denies: Easy Bruising, Easy Bleeding VTE Information - Inpt Only VTE Present on Admission: No VTE Pharm Prophylaxis ordered?: Yes Patient Problems: Active and Suspected Problems (Last Reviewed 03/17/19 @ 13:18 by Carmen Mohan) Weakness (Acute) Elevated CPK (Acute) Seizure (Acute) - Physical Exam Vitals/I&O's: Vital Signs Temp Pulse Resp BP Pulse Ox 99.0 F 90 16 126/68 H 95 08/30/19 05:43 08/30/19 05:43 08/30/19 05:43 08/30/19 05:43 08/30/19 05:43 Oxygen Delivery Method Room Air Weight: 104.8 kg Body Mass Index (BMI) 40.9 General: Alert, Oriented x3, Cooperative, No apparent distress HEENT: Atraumatic, PERRLA, EOMI, Normocephalic Oral: Moist Mucosa Neck: Supple, No JVD Lungs: Clear to auscultation, Normal air movement Cardiovascular: Regular rate, Regular Rhythm, Normal S1, Normal S2, No murmurs Abdomen: Bowel Sounds Present, Soft, Non Tender, Non-Distended, No Hepato- splenomegaly, Obese Extremities: Edema - Bilateral pedal edema+1 Skin: No rashes Musculoskeletal: No Tenderness to Palpation of Joints or Extremities Lymphatic: No Cervical, Supraclavicular, or Inguinal Adenopathy Neurological: Cranial nerves II-XII grossly intact, Neuro grossly intact Psych/Mental Status: Normal Affect, Appropriate Laboratory Results 08/30/19 06:05: POC Glucose 111 H 08/30/19 06:48: Sodium 138, Potassium 4.2, Chloride 105, Carbon Dioxide 25.0, Anion Gap 8, BUN 13, Creatinine 0.75, Estim Creat Clear Calc 56.11, Est GFR (MDRD) Af Amer 132, Est GFR (MDRD) Non-Af 109, BUN/Creatinine Ratio 17.3, Glucose 97, Calcium 8.7, Total Bilirubin 0.50, AST 75 H, ALT 36, Alkaline Phosphatase 45, Total Protein 6.4, Albumin 3.0 L, Globulin 3.4, Albumin/Globulin Ratio 0.9 08/30/19 06:48: WBC 7.4, RBC 4.49 L, Hgb 14.1, Hct 41.0, MCV 91.3, MCH 31.4, MCHC 34.4, RDW Std Deviation 41.6, RDW Coeff of Ronna 12.5, Plt Count 115 L, MPV 8.9, Immature Gran % (Auto) 1.100 H, Neut % (Auto) 69.8, Lymph % (Auto) 12.7 L, [place] % (Auto) 16.0 H, Eos % (Auto) 0.0, Baso % (Auto) 0.4, Absolute Neuts (auto) 5.2, Absolute Lymphs (auto) 0.94, Nucleated RBC % 0 08/30/19 06:48: Total Creatine Kinase 1585 H Current Medications Sodium Chloride () 1,000 mls @ 999 mls/hr IV .Q1H1M ONE Stop: 08/30/19 08:30 Assessment/Plan All Active Problems (Last Reviewed 03/17/19 @ 13:18 by Carmen Mohan) Weakness (Acute) Fall (Acute) Diarrhea (Acute) Gastroenteritis (Acute) Elevated CPK (Acute) Seizure (Acute) Daytime hypersomnia (Acute) 1. Breakthrough seizure, patient with known seizure disorder Neurology consulted, recommended increasing Keppra to 175 0 mg p.o. in the morning and 2000 mg every afternoon We will continue with Depakote 1000 p.o. 3 times daily as well as take Ambien 12 mg twice daily and Klonopin 0.5 mg p.o. nightly Continue to monitor on seizure precautions 2. Polypharmacy, patient is on multiple medications and needs to be weaned off Follow-up with primary care doctor 3. Hypertension, continue on home medications -spironolactone 4. CAD, EKG shows no acute ST-T changes, continue on statins, Plavix, 5. Hypothyroidism, continue on levothyroxine 6. DVT prophylaxis - Heparin SC Code Visit Inpatient E&M: 75284 Init Hosp L2
[2019-08-30] MEDS: 0.9% Normal Saline 1,000 ML 100 ML IV (09:03)
--- NOTE | 2019-08-30 10:58 | CASEMGMT ---
Noted patient is from [facility] [place]. DARLENE spoke with patient and confirmed that his plan is to return to [facility] at d/c. He said he will need transportation back. DARLENE asked if he has family available to transport and he said he does not. DARLENE also called [facility] and spoke with Alba. She said all d/c orders would need to be faxed ahead of time so his meds can be verified before he returns. DARLENE asked if he would need to fill the scripts before returning. She said, no they would be able to get their pharmacy to drop them off. Green sheet on chart. Plan: d/c back to [facility] [place]. Nikki TILLMAN MSW
--- NOTE | 2019-08-30 11:11 | PCM.CONS.GEN ---
Problem List (1) Seizure Status: Acute Reason for Consult Date of Consultation: 08/30/19 Reason for Consultation: Breakthrough seizure History of Present Illness: The patient is a 68 year old M with PMH HTN, HLD, Epilepsy, CAD, schizophrenia, hypothyroidism, BPH, depression, H/O colon cancer, RLS, KYA, morbid obesity admitted with likely breakthrough seizure. Patient is a poor historian. History obtained from patient, medical records and documentation. Per patient he had an episode of GTCs yesterday 08/29/19, denies any tongue bite, urinary incontinence, but could not get up from the floor, patient does not remember his seizure medications but per patient he lives in an assisted living and the nurse gives him his seizure medications and he is compliant with the same. Per patient he ambulates with a walker, has flexed and stooped posture, denies any frequent falls, does not drive and does need assistance for his ADLs. Per documentation patient is on Depakote ER 1000 mg p.o. TID, Keppra 1500 mg q AM and 2000 mg q HS, tiagabine 12 mg twice daily and on Klonopin 0.5 mg PO q hs. Per patient his seizures started as a child, has been on AEDs since childhood, he gets infrequent seizures, last GTCS was in May 2019 and prior to that it was 10 years ago per patient. At present patient is back to his baseline, denies any headache, dizziness, focal motor weakness, sensory loss, facial weakness, visual disturbances or speech disturbances. CT head reported nothing acute, CT C spine reported no fracture. [] Past Medical History Past Medical History (Chronic Problems): Chronic Problems (Last Reviewed 03/17/19 @ 13:18 by Carmen Mohan) Anxiety and depression (Chronic) Seizure disorder (Chronic) Morbid obesity (Chronic) KYA (obstructive sleep apnea) (Chronic) Sleep apnea (Chronic) Pure hypercholesterolemia (Chronic) Nocturnal hypoxia (Chronic) Shortness of breath (Chronic) Depression (Chronic) Benign essential HTN (Chronic) Medical History: Medical History (Last Reviewed 03/17/19 @ 13:18 by Carmen Mohan) Sleep apnea (Chronic) G47.30 Pure hypercholesterolemia (Chronic) E78.00 Depression (Chronic) F32.9 Benign essential HTN (Chronic) I10 BPH (benign prostatic hyperplasia) N40.0 History of seizure Z87.898 History of colon cancer Z85.038 BPH (benign prostatic hyperplasia) (Inactive) Hyperlipemia (Inactive) E78.5 Seizure disorder (Inactive) G40.909 Allergies aspirin Allergy (Verified 07/11/19 10:10) cant remember rxn nickel Allergy (Verified 07/11/19 10:10) Other oxcarbazepine [From Trileptal] Allergy (Verified 07/11/19 10:10) cant remember rxn Home Medications: Ambulatory Orders Medication Instructions Recorded Alendronate Sodium [Fosamax] 70 mg PO LEON 12/07/16 Allopurinol [Zyloprim] 100 mg PO QHS 12/07/16 Atorvastatin Calcium [Lipitor] 40 mg PO QHS 12/07/16 Clonazepam [Klonopin] 0.5 mg PO QHS 12/07/16 Clopidogrel Bisulfate [Plavix] 75 mg PO DAILY 12/07/16 Finasteride [Proscar] 5 mg PO DAILY 12/07/16 Levothyroxine [Synthroid] 50 mcg PO DAILY 12/07/16 Olanzapine [Zyprexa Zydis] 5 mg PO QHS 12/07/16 Spironolactone [Aldactone] 37.5 mg PO DAILY 12/07/16 Tiagabine HCl [Gabitril] 12 mg PO BID 12/07/16 Acetaminophen [Tylenol Arthritis] 1,300 mg PO BID 03/23/17 Alfuzosin HCl [Alfuzosin HCl ER] 10 mg PO QHS 03/23/17 Bumetanide [Bumex] 2 mg PO DAILY 03/23/17 ascorbic acid (vitamin C) 500 mg 500 mg PO DAILY@1200 cap 03/17/19 capsule bethanechol chloride 25 mg tablet 25 mg PO TID 03/17/19 calcium-vitamin D3-vitamin K 500 1 tab PO DAILY 03/17/19 mg-100 unit-40 mcg chewable tablet ferrous gluconate 240 mg (27 mg 240 mg PO DAILY@1200 tab 03/17/19 iron) tablet loperamide 2 mg capsule 4 mg PO Q1-4H PRN 03/17/19 montelukast 10 mg tablet 10 mg PO QHS 03/17/19 pantoprazole 40 mg tablet,delayed 40 mg PO DAILY 03/17/19 release ranitidine 150 mg tablet 150 mg PO DAILY@1700 03/17/19 sucralfate 1 gram tablet 1 g PO TIDCM tab 03/17/19 vitamin B complex and vit C no.3 1 cap PO DAILY@1200 03/17/19 15 mg-10 mg-50 mg-5 mg-300 mg capsule vitamin E 200 unit capsule 200 unit PO DAILY@1200 03/17/19 Cholecalciferol (Vitamin D3) 2,000 unit PO QHS 07/11/19 [D3-2000] Divalproex Sodium [Depakote ER] 1,000 mg PO TID 07/11/19 Levetiracetam [Keppra] 2,000 mg PO QHS 07/11/19 Magnesium Oxide [Mag-Ox 400] 400 mg PO QHS 07/11/19 [place]-3 Fatty Acids/Fish Oil 2 cap PO BID 07/11/19 [[place] 3 1,000 mg Softgel] Potassium Chloride [Klor-Con M20] 20 meq PO BID 07/11/19 Pregabalin [Lyrica] 200 mg PO TID 07/11/19 Prosight 1 tab PO DAILY@1200 07/11/19 Ropinirole HCl [Requip] 1 mg PO TID 07/11/19 Venlafaxine HCl [Venlafaxine HCl 150 mg PO DAILY 07/11/19 ER] levETIRAcetam tablet [Keppra 1,500 mg PO DAILY 07/11/19 tablet] Surgical History: Surgical History (Last Reviewed 03/17/19 @ 13:18 by Carmen Mohan) History of cholecystectomy Z90.49 History of right hip replacement Z96.641 Surgical History: - - Cholecystectomy, right total hip replacement. Psychiatric History: Anxiety, Depression Smoking Status: Never smoker - *Family History Paternal Family History: Family History (Last Reviewed 03/17/19 @ 13:18 by Carmen Mohan) Mother COPD (chronic obstructive pulmonary disease) CAD (coronary artery disease) Father Cancer Heart disease Myocardial infarction CAD (coronary artery disease) Aunt CAD (coronary artery disease) Myocardial infarction History Items: Cancer, High Cholesterol, Heart Disease, Hypertension Maternal Family History: Family History (Last Reviewed 03/17/19 @ 13:18 by Carmen Mohan) Mother COPD (chronic obstructive pulmonary disease) CAD (coronary artery disease) Father Cancer Heart disease Myocardial infarction CAD (coronary artery disease) Aunt CAD (coronary artery disease) Myocardial infarction History Items: Heart Disease, Hypertension, Pulmonary Disease Review of Systems Constitutional: Reports: - - Complete ROS negative except as documented in HPI Patient Problems: Active and Suspected Problems (Last Reviewed 03/17/19 @ 13:18 by Carmen Mohan) Weakness (Acute) Elevated CPK (Acute) Seizure (Acute) - Physical Exam Vitals/I&O's: Vital Signs Temp Pulse Resp BP Pulse Ox 97.9 F 79 18 117/60 97 08/30/19 09:01 08/30/19 09:01 08/30/19 09:01 08/30/19 09:01 08/30/19 09:01 Oxygen Delivery Method Room Air Weight: 104.78 kg Body Mass Index (BMI) 40.9 Intake and Output for Last 24 Hours 08/28/19 08/29/19 08/30/19 23:59 23:59 23:59 Intake Total 1000 / 1000 Balance 1000 / 1000 General: Alert HEENT: Normocephalic Lungs: Normal air movement Cardiovascular: Normal S1, Normal S2 Abdomen: Bowel Sounds Present Extremities: No cyanosis Neurological: - - Conscious, alert, AOA x3, CN II to XII grossly intact, moves all 4 extremities, has flexed posture of the neck, plantars B/L flexor, no pronator drift, no sensory loss, no cerebellar signs, gait deferred, reflexes + B/L B/S/T/K/A, No NR, fundus not visualized Psych/Mental Status: Normal Affect Laboratory Results 08/30/19 06:05: POC Glucose 111 H 08/30/19 06:48: Sodium 138, Potassium 4.2, Chloride 105, Carbon Dioxide 25.0, Anion Gap 8, BUN 13, Creatinine 0.75, Estim Creat Clear Calc 56.11, Est GFR (MDRD) Af Amer 132, Est GFR (MDRD) Non-Af 109, BUN/Creatinine Ratio 17.3, Glucose 97, Calcium 8.7, Total Bilirubin 0.50, AST 75 H, ALT 36, Alkaline Phosphatase 45, Total Protein 6.4, Albumin 3.0 L, Globulin 3.4, Albumin/Globulin Ratio 0.9 08/30/19 06:48: WBC 7.4, RBC 4.49 L, Hgb 14.1, Hct 41.0, MCV 91.3, MCH 31.4, MCHC 34.4, RDW Std Deviation 41.6, RDW Coeff of Ronna 12.5, Plt Count 115 L, MPV 8.9, Immature Gran % (Auto) 1.100 H, Neut % (Auto) 69.8, Lymph % (Auto) 12.7 L, Clark % (Auto) 16.0 H, Eos % (Auto) 0.0, Baso % (Auto) 0.4, Absolute Neuts (auto) 5.2, Absolute Lymphs (auto) 0.94, Nucleated RBC % 0 08/30/19 06:48: Total Creatine Kinase 1585 H Current Medications Acetaminophen (Tylenol) 650 mg PO Q6H PRN PRN PRN Reason: Pain Score 1-3/Temp > 100.7 F Heparin Sodium (Porcine) (Heparin Na) 5,000 unit SC Q8 ANDREEA Sodium Chloride () 1,000 mls @ 100 mls/hr IV .Q10H [facility] Last Admin: 08/30/19 09:03 Dose: 100 mls/hr Documented by: Nitroglycerin (Nitrostat) 0.4 mg SUBLINGUAL Q5M PRN PRN Reason: CARDIAC/CHEST PAIN Ondansetron HCl (Zofran) 4 mg IV Q8H PRN PRN PRN Reason: NAUSEA/VOMITING Sodium Chloride () 10 - 40 ml IV UD PRN PRN Reason: SALINE FLUSH Assessment/Plan All Active Problems (Last Reviewed 03/17/19 @ 13:18 by Carmen Mohan) Weakness (Acute) Fall (Acute) Diarrhea (Acute) Gastroenteritis (Acute) Elevated CPK (Acute) Seizure (Acute) Daytime hypersomnia (Acute) The patient is a 68 year old M with PMH HTN, HLD, Epilepsy, CAD, schizophrenia, hypothyroidism, BPH, depression, H/O colon cancer, RLS, KYA, morbid obesity admitted with likely breakthrough seizure. Patient is a poor historian. History obtained from patient, medical records and documentation. Per patient he had an episode of GTCs yesterday 08/29/19, denies any tongue bite, urinary incontinence, but could not get up from the floor, patient does not remember his seizure medications but per patient he lives in an assisted living and the nurse gives him his seizure medications and he is compliant with the same. Per patient he ambulates with a walker, has flexed and stooped posture, denies any frequent falls, does not drive and does need assistance for his ADLs. Per documentation patient is on Depakote ER 1000 mg p.o. TID, Keppra 1500 mg q AM and 2000 mg q HS, tiagabine 12 mg twice daily and on Klonopin 0.5 mg PO q hs. Per patient his seizures started as a child, has been on AEDs since childhood, he gets infrequent seizures, last GTCS was in May 2019 and prior to that it was 10 years ago per patient. At present patient is back to his baseline, denies any headache, dizziness, focal motor weakness, sensory loss, facial weakness, visual disturbances or speech disturbances. CT head reported nothing acute, CT C spine reported no fracture. Impression Possible breakthrough seizure Polypharmacy Plan -Increase Keppra to 1750 mg p.o. every morning and 2000 mg p.o. every afternoon. -On Depakote ER 1000 mg p.o. TID, tiagabine 12 mg twice daily and on Klonopin 0.5 mg PO q hs -Labs reviewed. AST/ALT 75/36, mildly elevated AST, monitor LFTs, will defer management to hospitalist team. Check UA -CT Head done on admission reported nothing acute -Patient is on multiple medications and has polypharmacy, will defer further evaluation and changes to his medications to hospitalist/PCP. -Patient might benefit from further changing and decreasing his AEDs but will defer to his outpatient neurologist. -Patient counseled to be compliant with AEDs -Seizure precautions discussed in detail. Patient counseled not to climb on ladders, heights, roofs, patient counseled not to swim alone, patient counseled not to work with sharp objects at least for 6 months. -Patient counseled not to drive for 6 months after the last seizure. Patient does not drive at baseline -PT/OT -GI/DVT prophylaxis -Fall precautions -Further medical management per hospitalist team -Please call with questions if any -Follow-up with his neurologist in 6 weeks -Thank you for allowing us to participate in patient's care and management This note has been generated using [employer] dictation software. It may contain incorrect words, spellings and punctuation that were not noted in the review of the note prior to signing Code Visit Inpatient E&M: 67651 Init Hosp L3
--- NOTE | 2019-08-30 12:19 | CASEMGMT ---
LW/POA forms in summary tab of Drea saunders is listed as healthcare POA. GASPER Green
[2019-08-30] MEDS: BETHANECHOL CHLORIDE 25 MG TABLET PO ×2 (14:13→21:03)
[2019-08-30] MEDS: Vitamin B Comp W-C Capsule 1 CAP PO (14:14)
[2019-08-30] MEDS: Multivitamin (Healthy Eyes) Capsule 1 CAP PO (14:14)
[2019-08-30] MEDS: Ascorbic Acid 500 MG Tablet PO (14:14)
[2019-08-30] MEDS: Divalproex (ER) 500 MG Tablet 1000 MG PO ×2 (14:15→21:03)
[2019-08-30] MEDS: Pregabalin 50 MG Capsule 200 MG PO ×3 (14:46→21:23)
[2019-08-30] MEDS: Heparin Injection (Vial) 5,000 UNIT/ML VIAL 5000 UNIT SC ×2 (14:46→21:04)
[2019-08-30 14:50] LABS: Valproic Acid (Depakene) Level 75 ug/mL (50-100)
--- NOTE | 2019-08-30 15:50 | CASEMGMT ---
DARLENE faxed information including PT/OT evaluations to [facility]. DARLENE attempted to call [facility], but no one answered. Green sheet on chart for patient to return to [facility]. However, if patient is still here on Wednesday SW will re-evaluate his d/c plan. Plan: d/c back to [facility] [place]. Nikki TILLMAN MSW
[2019-08-30] MEDS: Sucralfate 1 GM Tablet PO (18:06)
[2019-08-30] MEDS: Atorvastatin Calcium 40 MG Tablet PO (21:02)
[2019-08-30] MEDS: Tamsulosin HCl 0.4 MG Capsule PO (21:02)
[2019-08-30] MEDS: Allopurinol 100 MG Tablet PO (21:03)
[2019-08-30] MEDS: Montelukast 10 MG Tablet PO (21:03)
[2019-08-30] MEDS: levETIRAcetam 1,000 MG Tablet 2000 MG PO (21:03)
[2019-08-30] MEDS: clonazePAM 0.5 MG Tablet PO (21:10)
[2019-08-30] MEDS: Pramipexole Di-HCl 0.5 MG Tablet PO (21:11)
[2019-08-30] MEDS: Nystatin Powder 15gm Bottle 1 APPLIC TOPICAL (21:12)
[2019-08-31 01:03] LABS: Bacteria 0 SEEN /hpf (None Seen); Mucous, Urine 0 SEEN /hpf (<or=2+); Red Blood Cells-Urine 0 SEEN /hpf (0-5)
[2019-08-31 01:09] LABS: Color, Urine Yellow (Yellow); Glucose, Dipstick Normal (Normal); Ketone-Dipstick 15 mg/dl (Negative); Leukocyte Esterase-Dipstick 25 /ul (Negative); Nitrite-Dipstick Negative (Negative); Occult Blood-Urine Negative /ul (Negative); Protein-Dipstick 15 mg/dl (Negative); Specific Gravity, Urine 1.015 (1.002-1.030); Urine Bilirubin Dipstick Negative (Negative); Urine Clarity Clear (Clear); Urine Urobilinogen Normal (Normal)
[2019-08-31 01:17] LABS: Squamous Epithelial Cells - UA 0-5 SEEN /hpf (0-5); White Blood Cells 0-5 SEEN /hpf (0-5)
[2019-08-31 03:00] VITALS: PULSE 90
[2019-08-31 03:10] VITALS: BP 118/69; PULSE 92; RESP 16; TEMP 37.1; O2SAT 93
[2019-08-31] MEDS: Levothyroxine 50 MCG Tablet PO (06:08)
[2019-08-31] MEDS: Sucralfate 1 GM Tablet PO ×2 (06:08→11:16)
[2019-08-31] MEDS: BETHANECHOL CHLORIDE 25 MG TABLET PO (06:08)
[2019-08-31] MEDS: Nystatin Powder 15gm Bottle 1 APPLIC TOPICAL (06:08)
[2019-08-31] MEDS: Pregabalin 50 MG Capsule 200 MG PO (06:08)
[2019-08-31] MEDS: Heparin Injection (Vial) 5,000 UNIT/ML VIAL 5000 UNIT SC (06:08)
[2019-08-31] MEDS: Divalproex (ER) 500 MG Tablet 1000 MG PO (06:08)
[2019-08-31 06:19] LABS: Absolute Neutrophil Count 2.6 X10^3/uL (2.0-7.7); Basophil# 0.02 X10^3/uL; Basophil% 0.3 % (0-1); Eosinophil# 0.04 X10^3/uL; Eosinophils% 0.7 % (0-5); Hematocrit 39.1 % (40-54); Hemoglobin 13.2 g/dL (13.0-16.5); Lymphocyte % 34.4 % (19-41); Mean Corp Hgb Conc 33.8 g/dL (32-36); Mean Corpuscular Hgb 31.5 pg (27.0-32.0); Mean Corpuscular Volume 93.3 fL (80-94); Mean Platelet Vol. 9.2 fl (6.2-12.0); Monocyte# 1.11 X10^3/uL; Monocyte% 19.1 % (0-10); NRBC Flagged by Analyzer 0 % (0-5); Neutrophil # 2.59 X10^3/uL (2.7-7.7); Neutrophil % 44.6 % (47-70); Platelet Count 118 K/mm3 (150-450); RBC Distribution Width CV 13.1 % (11.6-14.6); RBC Distribution Width SD 44.6 fl (35.1-43.9); Red Blood Count 4.19 M/mm3 (4.6-6.2); White Blood Count 5.8 K/mm3 (4.4-11.0)
[2019-08-31 06:46] LABS: ALB/GLOB Ratio 0.8 RATIO (0.9-2.4); AST(SGOT) 131 U/L (15-37); Alanine Aminotransfer ALT/SGPT 51 U/L (16-61); Albumin, Serum 2.7 g/dL (3.2-5.0); Alkaline Phosphatase 43 U/L (45-117); Anion Gap 8 (5-15); BUN 9 mg/dL (7-18); BUN/Creat Ratio 12.4 RATIO (10-20); Calcium,Total 8.5 mg/dL (8.5-10.1); Chloride 106 mmol/L (98-107); Creatinine, Serum 0.73 mg/dL (0.70-1.30); EST Glomerular Filtration Rate 113 mL/min (>60); Est Glom Filt Rate - Afr Amer 137 mL/min (>60); Estimated Creatinine Clearance 56.11 ml/min; Globulin 3.2 g/dL (2.2-4.2); Glucose 96 mg/dL (74-106); Potassium 3.8 mmol/L (3.5-5.1); Protein, Total 5.9 g/dL (6.4-8.2); Sodium Level 141 mmol/L (136-145)
[2019-08-31 07:04] VITALS: PULSE 86
[2019-08-31] MEDS: Calcium Carb/Vitamin D 1 TABLET Tablet PO (08:41)
[2019-08-31 09:10] VITALS: BP 99/59; PULSE 87; RESP 16; TEMP 37.2; O2SAT 94
[2019-08-31] MEDS: Venlafaxine XR 150 MG Capsule PO (09:34)
[2019-08-31] MEDS: Clopidogrel Bisulfate 75 MG Tablet PO (09:35)
[2019-08-31] MEDS: Finasteride 5 MG Tablet PO (09:36)
--- NOTE | 2019-08-31 09:57 | DCINST_ITS ---
- Discharge Diagnoses Current Active Problems: Current Active and Chronic Problems (Last Reviewed 03/17/19 @ 13:18 by Carmen Mohan) Weakness (Acute) Elevated CPK (Acute) Seizure (Acute) You will use the following diet at home:: No restrictions Discharge Activity: May Not Drive Allergies/Adverse Reactions: Allergies aspirin Allergy (Verified 07/11/19 10:10) cant remember rxn nickel Allergy (Verified 07/11/19 10:10) Other oxcarbazepine [From Trileptal] Allergy (Verified 07/11/19 10:10) cant remember rxn Medications to take at Discharge Alendronate Sodium [Fosamax] 70 mg PO LEON 12/07/16 Allopurinol [Zyloprim] 100 mg PO QHS 12/07/16 Atorvastatin Calcium [Lipitor] 40 mg PO QHS 12/07/16 Clonazepam [Klonopin] 0.5 mg PO QHS 12/07/16 Clopidogrel Bisulfate [Plavix] 75 mg PO DAILY 12/07/16 Finasteride [Proscar] 5 mg PO DAILY 12/07/16 Levothyroxine [Synthroid] 50 mcg PO DAILY 12/07/16 Olanzapine [Zyprexa Zydis] 5 mg PO QHS 12/07/16 Spironolactone [Aldactone] 37.5 mg PO DAILY 12/07/16 Tiagabine HCl [Gabitril] 12 mg PO BID 12/07/16 Acetaminophen [Tylenol Arthritis] 1,300 mg PO BID 03/23/17 Alfuzosin HCl [Alfuzosin HCl ER] 10 mg PO QHS 03/23/17 Bumetanide [Bumex] 2 mg PO DAILY 03/23/17 ascorbic acid (vitamin C) 500 mg capsule 500 mg PO DAILY@1200 cap 03/17/19 bethanechol chloride 25 mg tablet 25 mg PO TID 03/17/19 calcium-vitamin D3-vitamin K 500 mg-100 unit-40 mcg chewable tablet 1 tab PO DAILY 03/17/19 ferrous gluconate 240 mg (27 mg iron) tablet 240 mg PO DAILY@1200 tab 03/17/19 loperamide 2 mg capsule 4 mg PO Q1-4H PRN 03/17/19 montelukast 10 mg tablet 10 mg PO QHS 03/17/19 pantoprazole 40 mg tablet,delayed release 40 mg PO DAILY 03/17/19 ranitidine 150 mg tablet 150 mg PO DAILY@1700 03/17/19 sucralfate 1 gram tablet 1 g PO TIDCM tab 03/17/19 vitamin B complex and vit C no.3 15 mg-10 mg-50 mg-5 mg-300 mg capsule 1 cap PO DAILY@1200 03/17/19 vitamin E 200 unit capsule 200 unit PO DAILY@1200 03/17/19 Cholecalciferol (Vitamin D3) [D3-2000] 2,000 unit PO QHS 07/11/19 Divalproex Sodium [Depakote ER] 1,000 mg PO TID 07/11/19 Levetiracetam [Keppra] 2,000 mg PO QHS 07/11/19 Magnesium Oxide [Mag-Ox 400] 400 mg PO QHS 07/11/19 [place]-3 Fatty Acids/Fish Oil [[place] 3 1,000 mg Softgel] 2 cap PO BID 07/11/19 Potassium Chloride [Klor-Con M20] 20 meq PO BID 07/11/19 Pregabalin [Lyrica] 200 mg PO TID 07/11/19 Prosight 1 tab PO DAILY@1200 07/11/19 Ropinirole HCl [Requip] 1 mg PO TID 07/11/19 Venlafaxine HCl [Venlafaxine HCl ER] 150 mg PO DAILY 07/11/19 levETIRAcetam tablet [Keppra tablet] 1,500 mg PO DAILY 07/11/19 levETIRAcetam tablet [Keppra tablet] 250 mg PO DAILY #90 tab 08/31/19 The following prescriptions were given: levETIRAcetam tablet [Keppra tablet] 250 mg PO DAILY #90 tab Transmission Status: Pending to [facility] Primary Care Physician: Becka Hines, MERARY-C [Primary Care Provider] - Please follow up with your Primary Care Physician in: in 5-7 days Test Results: Test results from this visit will be discussed in further detail at your follow- up appointment, if applicable. Please Follow Up With: PRIMARY NEUROLOGIST When: IN 1 WEEK Proposed Discharge Date: 08/31/19
--- NOTE | 2019-08-31 10:00 | NURSING ---
Report given to Jeanna at [facility]
--- NOTE | 2019-08-31 10:00 | PCM.DC.SUM ---
Discharge Date and Diagnosis - Problem List Patient Problems: Active and Suspected Problems (Last Reviewed 03/17/19 @ 13:18 by Carmen Mohan) Elevated CPK (Acute) Seizure (Acute) Date of Admission: 08/30/19 Date of Discharge: 08/31/19 - Primary Discharge Diagnosis Active and Suspected Problems (Last Reviewed 03/17/19 @ 13:18 by Carmen Mohan) Elevated CPK (Acute) Seizure (Acute) - Secondary Discharge Diagnosis Chronic Problems (Last Reviewed 03/17/19 @ 13:18 by Carmen Mohan) Anxiety and depression (Chronic) Seizure disorder (Chronic) Morbid obesity (Chronic) KYA (obstructive sleep apnea) (Chronic) Sleep apnea (Chronic) Pure hypercholesterolemia (Chronic) Nocturnal hypoxia (Chronic) Shortness of breath (Chronic) Depression (Chronic) Benign essential HTN (Chronic) Hospital Course and Treatment Imaging Results: Clinical Impression(s) from Imaging Studies Brain CT 08/30/19 06:37 IMPRESSION: Chronic involutional changes of the brain. Electronically Signed: Terrie Hollis, at 7:55 EST Tel , Service support , Cervical Spine CT 08/30/19 06:38 IMPRESSION: No acute osseous injury is evident. Comment: MRI is more sensitive than CT in detecting cord injury, ligament injury, and epidural hematoma. If there is continued clinical concern for any of these entities, MRI correlation should be considered if possible. Electronically Signed: Héctor Hugo MD at 7:41 EST Tel , Service support , Chest X-Ray 08/30/19 07:04 IMPRESSION: Degenerative changes, as described above. No demonstrated acute cardiopulmonary process. Electronically Signed: Terrie Hollis, at 7:40 EST Tel , Service support , Operations: [email or web address] - Laparoscopic cholecystectomy and right hemicolectomy, colectomy Summary of Care Provided: The patient is a 68 year old M with history of seizure disorder admitted with breakthrough seizures 1. Breakthrough seizure ?Patient admitted to monitored bed placed under seizure precautions consult was placed to neurology patient was seen by Dr. Wellington recommended adjustment of patient medications. Patient was on Keppra 2009 did continue he was also on Keppra thousand 500 mg during the day this was increased to 1750. Prescription was written for additional 250 mg to be added to the 1500 daily. Plan is for patient to follow-up with primary neurology for subsequent adjustment of medications if needed 2. Polypharmacy plan is for patient to follow-up with PCP to be weaned off 3. Hypertension ~ blood pressure controlled, home medications continued with dose adjustment as needed 4. Hypothyroidism ~patient is on levothyroxine home dose continued 5. DVT prophylaxis ~ Heparin SC Patient Problems: Active and Suspected Problems (Last Reviewed 03/17/19 @ 13:18 by Carmen Mohan) Elevated CPK (Acute) Seizure (Acute) - Physical Exam Vitals/I&O's: Vital Signs Temp Pulse Resp BP Pulse Ox 99 F 87 16 99/59 L 94 08/31/19 09:10 08/31/19 09:10 08/31/19 09:10 08/31/19 09:10 08/31/19 09:10 Oxygen Delivery Method Room Air Weight: 103.8 kg Body Mass Index (BMI) 40.9 Intake and Output for Last 24 Hours 08/29/19 08/30/19 08/31/19 23:59 23:59 23:59 Intake Total 2515 / 3315 1100 / 1100 Output Total 800 / 800 Balance 2515 / 3315 300 / 300 General: No apparent distress HEENT: Atraumatic Oral: Moist Mucosa Lungs: Diminished Psych/Mental Status: Flat Affect Laboratory Results 08/30/19 11:16: Valproic Acid 75 08/30/19 11:16: Levetiracetam Pending 08/31/19 00:40: Urine Color Yellow, Urine Clarity Clear, Urine pH 6.0, Ur Specific [place] 1.015, Urine Protein 15 H, Urine Glucose (UA) Normal, Urine Ketones 15 H, Urine Occult Blood Negative, Urine Nitrite Negative, Urine Bilirubin Negative, Urine Urobilinogen Normal, Ur Leukocyte Esterase 25 H, Urine RBC 0 SEEN, Urine WBC 0-5 SEEN, Ur Squamous Epith Cells 0-5 SEEN, Urine Bacteria 0 SEEN, Urine Mucus 0 SEEN 08/31/19 06:00: WBC 5.8, RBC 4.19 L, Hgb 13.2, Hct 39.1 L, MCV 93.3, MCH 31.5, MCHC 33.8, RDW Std Deviation 44.6 H, RDW Coeff of Ronna 13.1, Plt Count 118 L, MPV 9.2, Immature Gran % (Auto) 0.900, Neut % (Auto) 44.6 L, Lymph % (Auto) 34.4, [place] % (Auto) 19.1 H, Eos % (Auto) 0.7, Baso % (Auto) 0.3, Absolute Neuts (auto) 2.6, Absolute Lymphs (auto) 2.00, Nucleated RBC % 0 08/31/19 06:00: Sodium 141, Potassium 3.8, Chloride 106, Carbon Dioxide 27.0, Anion Gap 8, BUN 9, Creatinine 0.73, Estim Creat Clear Calc 56.11, Est GFR (MDRD) Af Amer 137, Est GFR (MDRD) Non-Af 113, BUN/Creatinine Ratio 12.4, Glucose 96, Calcium 8.5, Total Bilirubin 0.50, AST 131 H, ALT 51, Alkaline Phosphatase 43 L, Total Protein 5.9 L, Albumin 2.7 L, Globulin 3.2, Albumin/Globulin Ratio 0.8 L Current Medications Acetaminophen (Tylenol) 650 mg PO Q6H PRN PRN PRN Reason: Pain Score 1-3/Temp > 100.7 F Allopurinol (Zyloprim) 100 mg PO QHS [facility] Last Admin: 08/30/19 21:03 Dose: 100 mg Documented by: Ascorbic Acid (Vitamin C) 500 mg PO DAILY@1200 [facility] Last Admin: 08/30/19 14:14 Dose: 500 mg Documented by: Atorvastatin Calcium (Lipitor) 40 mg PO QHS [facility] Last Admin: 08/30/19 21:02 Dose: 40 mg Documented by: Bethanechol Chloride (Bethanechol Chloride) 25 mg PO TID [facility] Last Admin: 08/31/19 06:08 Dose: 25 mg Documented by: Calcium/Vitamin D (Os-Santosh 500mg + D) 1 tablet PO DAILYCM [facility] Last Admin: 08/31/19 08:41 Dose: 1 tablet Documented by: Cholecalciferol (Vitamin D) 2,000 unit PO QHS [facility] Last Admin: 08/30/19 21:04 Dose: 2,000 unit Documented by: Clonazepam (Klonopin) 0.5 mg PO QHS [facility] Last Admin: 08/30/19 21:10 Dose: 0.5 mg Documented by: Clopidogrel Bisulfate (Plavix) 75 mg PO DAILY [facility] Last Admin: 08/31/19 09:35 Dose: 75 mg Documented by: Divalproex Sodium (Depakote Er) 1,000 mg PO TID [facility] Last Admin: 08/31/19 06:08 Dose: 1,000 mg Documented by: Ferrous Gluconate (Ferrous Gluconate) 324 mg PO DAILY@1200 [facility] Finasteride (Proscar) 5 mg PO DAILY [facility] Last Admin: 08/31/19 09:36 Dose: 5 mg Documented by: Heparin Sodium (Porcine) (Heparin Na) 5,000 unit SC Q8 [facility] Last Admin: 08/31/19 06:08 Dose: 5,000 unit Documented by: Levetiracetam (Keppra Tablet) 2,000 mg PO QHS [facility] Last Admin: 08/30/19 21:03 Dose: 2,000 mg Documented by: Levetiracetam 1,000 mg/ (Levetiracetam 750 mg) 1,750 mg PO DAILY [facility] Last Admin: 08/31/19 09:34 Dose: 1,750 mg Documented by: Levothyroxine Sodium (Synthroid) 50 mcg PO DAILY@0600 [facility] Last Admin: 08/31/19 06:08 Dose: 50 mcg Documented by: Lorazepam (Ativan) 2 mg IM X1 PRN PRN Reason: seizure Montelukast Sodium (Singulair) 10 mg PO QHS [facility] Last Admin: 08/30/19 21:03 Dose: 10 mg Documented by: Multivitamins (Allbee W/C Caplet, Thera B Comp/C) 1 capsule PO DAILY@1200 [facility] Last Admin: 08/30/19 14:14 Dose: 1 capsule Documented by: Multivitamins/Minerals (Healthy Eyes) 1 capsule PO DAILY@1200 [facility] Last Admin: 08/30/19 14:14 Dose: 1 capsule Documented by: Nitroglycerin (Nitrostat) 0.4 mg SUBLINGUAL Q5M PRN PRN Reason: CARDIAC/CHEST PAIN Nystatin (Mycostatin Powder) 1 applic TOPICAL TID [facility]; Protocol Last Admin: 08/31/19 06:08 Dose: 1 applicatio Documented by: Ondansetron HCl (Zofran) 4 mg IV Q8H PRN PRN PRN Reason: NAUSEA/VOMITING Pramipexole Dihydrochloride (Mirapex) 0.5 mg PO QHS [facility] Last Admin: 08/30/19 21:11 Dose: 0.5 mg Documented by: Pregabalin (Lyrica) 200 mg PO TID [facility] Last Admin: 08/31/19 06:08 Dose: 200 mg Documented by: Sodium Chloride () 10 - 40 ml IV UD PRN PRN Reason: SALINE FLUSH Spironolactone (Aldactone) 37.5 mg PO DAILY [facility] Last Admin: 08/31/19 09:32 Dose: Not Given Documented by: Sucralfate (Carafate) 1 gm PO TIDAC [facility] Last Admin: 08/31/19 06:08 Dose: 1 gm Documented by: Tamsulosin HCl (Flomax) 0.4 mg PO QHS [facility] Last Admin: 08/30/19 21:02 Dose: 0.4 mg Documented by: Tiagabine HCl (Gabitril) 12 mg PO BID [facility] Last Admin: 08/31/19 09:35 Dose: 12 mg Documented by: Venlafaxine HCl (Effexor Xr) 150 mg PO DAILY [facility] Last Admin: 08/31/19 09:34 Dose: 150 mg Documented by: Discharge Diet: No Restrictions Discharge Activity: May Not Drive Home Medications: Medications to take at Discharge Alendronate Sodium [Fosamax] 70 mg PO 12/07/16 Allopurinol [Zyloprim] 100 mg PO QHS 12/07/16 Atorvastatin Calcium [Lipitor] 40 mg PO QHS 12/07/16 Clonazepam [Klonopin] 0.5 mg PO QHS 12/07/16 Clopidogrel Bisulfate [Plavix] 75 mg PO DAILY 12/07/16 Finasteride [Proscar] 5 mg PO DAILY 12/07/16 Levothyroxine [Synthroid] 50 mcg PO DAILY 12/07/16 Olanzapine [Zyprexa Zydis] 5 mg PO QHS 12/07/16 Spironolactone [Aldactone] 37.5 mg PO DAILY 12/07/16 Tiagabine HCl [Gabitril] 12 mg PO BID 12/07/16 Acetaminophen [Tylenol Arthritis] 1,300 mg PO BID 03/23/17 Alfuzosin HCl [Alfuzosin HCl ER] 10 mg PO QHS 03/23/17 Bumetanide [Bumex] 2 mg PO DAILY 03/23/17 ascorbic acid (vitamin C) 500 mg capsule 500 mg PO DAILY@1200 cap 03/17/19 bethanechol chloride 25 mg tablet 25 mg PO TID 03/17/19 calcium-vitamin D3-vitamin K 500 mg-100 unit-40 mcg chewable tablet 1 tab PO DAILY 03/17/19 ferrous gluconate 240 mg (27 mg iron) tablet 240 mg PO DAILY@1200 tab 03/17/19 loperamide 2 mg capsule 4 mg PO Q1-4H PRN 03/17/19 montelukast 10 mg tablet 10 mg PO QHS 03/17/19 pantoprazole 40 mg tablet,delayed release 40 mg PO DAILY 03/17/19 ranitidine 150 mg tablet 150 mg PO DAILY@1700 03/17/19 sucralfate 1 gram tablet 1 g PO TIDCM tab 03/17/19 vitamin B complex and vit C no.3 15 mg-10 mg-50 mg-5 mg-300 mg capsule 1 cap PO DAILY@1200 03/17/19 vitamin E 200 unit capsule 200 unit PO DAILY@1200 03/17/19 Cholecalciferol (Vitamin D3) [D3-2000] 2,000 unit PO QHS 07/11/19 Divalproex Sodium [Depakote ER] 1,000 mg PO TID 07/11/19 Levetiracetam [Keppra] 2,000 mg PO QHS 07/11/19 Magnesium Oxide [Mag-Ox 400] 400 mg PO QHS 07/11/19 [place]-3 Fatty Acids/Fish Oil [[place] 3 1,000 mg Softgel] 2 cap PO BID 07/11/19 Potassium Chloride [Klor-Con M20] 20 meq PO BID 07/11/19 Pregabalin [Lyrica] 200 mg PO TID 07/11/19 Prosight 1 tab PO DAILY@1200 07/11/19 Ropinirole HCl [Requip] 1 mg PO TID 07/11/19 Venlafaxine HCl [Venlafaxine HCl ER] 150 mg PO DAILY 07/11/19 levETIRAcetam tablet [Keppra tablet] 1,500 mg PO DAILY 07/11/19 levETIRAcetam tablet [Keppra tablet] 250 mg PO DAILY #90 tab 08/31/19 Following Prescrptions Were Given to Patient: levETIRAcetam tablet [Keppra tablet] 250 mg PO DAILY #90 tab Transmission Status: Received by [facility] Primary Care Physician: Becka Hines, CHELC [Primary Care Provider] - Please follow up with your Primary Care Physician in: in 5-7 days Please Follow Up With: PRIMARY NEUROLOGIST When: IN 1 WEEK Disposition: Asstd Living/Non-Skill [facility] Minutes spent on discharge:: 35 Patient Condition:: Stable Medical Necessity - Tobacco Use Smoking Status: Never smoker Tobacco Use: Non-smoker Meaningful Use Info Meaningful Use Diagnoses (Choose all that apply): None applicable Code Visit Inpatient E&M: 70749 Disch Hosp
--- NOTE | 2019-08-31 10:48 | PCA ---
D/C papers faxed to [facility]. Attempted to set up transport with [facility] but they where closed due to the holiday. Set up transport than with [facility].
[2019-08-31] MEDS: Vitamin B Comp W-C Capsule 1 CAP PO (11:16)
[2019-08-31] MEDS: Ascorbic Acid 500 MG Tablet PO (11:16)
[2019-08-31] MEDS: Ferrous Gluconate 324 MG Tablet PO (11:17)
[2019-08-31] MEDS: Multivitamin (Healthy Eyes) Capsule 1 CAP PO (11:17)
== END 2019-08-31 12:17 | disposition intermediate care facility (04) | DRG 101 ==
LOC: ED 07:43 → PCU 07:54
PROVIDERS: Admitting Provider Internal Medicine; Emergency Provider Emergency Medicine; Family Provider Nurse Practitioner Adult Health; PCP Nurse Practitioner Adult Health; Visit Provider Internal Medicine
DX: G40.409 Other generalized epilepsy and epileptic syndromes, not intractable, without status epilepticus (principal); Z68.41 Body mass index [BMI] 40.0-44.9, adult; R74.8 Abnormal levels of other serum enzymes; F32.9 Major depressive disorder, single episode, unspecified; F41.9 Anxiety disorder, unspecified; E66.01 Morbid (severe) obesity due to excess calories; G47.33 Obstructive sleep apnea (adult) (pediatric); E78.00 Pure hypercholesterolemia, unspecified; I10 Essential (primary) hypertension; E03.9 Hypothyroidism, unspecified; Z85.038 Personal history of other malignant neoplasm of large intestine; Z79.02 Long term (current) use of antithrombotics/antiplatelets; Z79.83 Long term (current) use of bisphosphonates; Z82.49 Family history of ischemic heart disease and other diseases of the circulatory system; Z82.5 Family history of asthma and other chronic lower respiratory diseases; Z96.641 Presence of right artificial hip joint; I25.10 Atherosclerotic heart disease of native coronary artery without angina pectoris
CPT/HCPCS: 36415; 70450; 71045; 72125; 80053; 80164; 80177; 81001; 82550; 82962; 85025; 93005; 97163; 97166; 97530; 97535; 99251; 99285; J7030; A4216; G0463

== ENCOUNTER 2020-03-16 15:28 | Emergency (ER) | payer MEDICARE, MEDICAID, SELFPAY ==
[2019-08-30 08:40] VITALS: BMI 40.9
[2020-03-16 15:30] VITALS: BP 138/79; PULSE 84; RESP 18; TEMP 37.1; O2SAT 98; BMI 40.6
--- NOTE | 2020-03-16 16:00 | RAD_ITS ---
STUDY: X-RAY - PELVIS AND RIGHT HIP REASON FOR EXAM: Male, 69 years old. FALL TECHNIQUE: 3 views of the pelvis and hip. COMPARISON: 11 July 2019 FINDINGS: There is a right hip arthroplasty in expected position with normal bone interface. Proximal femur contains therapeutic cement. The bones of the pelvis are intact and located. There is gas and stool in the distal colon. BMI is severely elevated. Appearance is similar to prior. RAD/HIP, UNI W/ Pelvis 2-3 Views IMPRESSION: 1. Expected appearance of right hip arthroplasty. 2. No acute findings or change since prior. 3. No pelvic fracture. Electronically Signed: Rachael Nicolas, at 16:20 EDT Tel , Service support ,
--- NOTE | 2020-03-16 16:01 | ED.VIS.GEN ---
History of Present Illness Chief Complaint: Fall Informant: Patient Onset: Today Current Severity: Mild Maximum Severity: Mild Narrative: Patient lives in assisted living he uses a walker and a wheelchair, somehow he got tangled up with the walker in the wheelchair as he was trying to reposition himself and he fell on his right hip he hit his call light aids came, he was brought to the emergency department. He did not hit his head he has no head neck chest or abdominal pain just pain to the right hip he indicates he simply stumbled trying to position himself with these 2 walking devices he has no other complaints Past Medical History - Allergies and Home Meds Allergies/Adverse Reactions: Allergies aspirin Allergy (Verified 03/16/20 15:35) cant remember rxn nickel Allergy (Verified 03/16/20 15:35) Other oxcarbazepine [From Trileptal] Allergy (Verified 03/16/20 15:35) cant remember rxn Primary Care Physician: Becka Hines, FARM EQUIPMENT ENGINE MECHANIC-C [Primary Care Provider] - Past Medical History: - Surgical History: - - Cholecystectomy, right total hip replacement. Smoking Status: Never smoker - Family History Paternal Family History: Family History (Last Reviewed 03/17/19 @ 13:18 by Carmen Mohan) Mother COPD (chronic obstructive pulmonary disease) CAD (coronary artery disease) Father Cancer Heart disease Myocardial infarction CAD (coronary artery disease) Aunt CAD (coronary artery disease) Myocardial infarction Family History: Reports: Cancer, High Cholesterol, Heart Disease, Hypertension Maternal Family History: Family History (Last Reviewed 03/17/19 @ 13:18 by Carmen Mohan) Mother COPD (chronic obstructive pulmonary disease) CAD (coronary artery disease) Father Cancer Heart disease Myocardial infarction CAD (coronary artery disease) Aunt CAD (coronary artery disease) Myocardial infarction Family History: Reports: Heart Disease, Hypertension, Pulmonary Disease Review of Systems ROS: - Clues as above General: Denies: Chills, Fever, Sweats Eyes: Denies: Visual changes - bilaterally, Diplopia ENT: Denies: Rhinorrhea, Sore throat Cardiovascular: Denies: Chest pain, Palpitations Respiratory: Denies: Dyspnea, Cough, Dyspnea on exertion Gastrointestinal: Denies: Abdominal pain, Nausea, Vomiting, Diarrhea, Melena, Hematochezia Genitourinary: Denies: Dysuria, Hematuria, Frequency Musculoskeletal: Reports: Extremity Pain. Denies: Back pain Skin: Denies: Rash, Wounds Neurological: Denies: Headache, Weakness, Numbness Physical Exam Vital Signs/Narrative: Vital Signs Temp Pulse Resp BP Pulse Ox 03/16/20 15:30 98.7 F 84 18 138/79 H 98 General: Well nourished, Well developed, No Acute Distress Head: Normocephalic, Atraumatic Eyes: Perrl, EOMI ENT: Moist mucous membranes, No rhinorrhea Neck: Supple, Nontender Cardiovascular: Regular rate, Regular rhythm, No murmurs Respiratory: No distress, CTA bilaterally, Chest nontender Abdomen: Soft, Nontender, Nondistended, Normal bowel sounds Back: Nontender, Normal Inspection Extremities: No edema, - - Very mild pain to the right hip no instability or shortening his range of motion is very good he has no back pain palpation of the hip thigh knee tib-fib ankle or foot unremarkable left lower extremity markable he has an element of kyphosis that is not new or different from what he tells us nothing else is bothering him Skin: Normal color, No rash Neurological: Alert, Oriented x3, Cranial nerves II-XII grossly intact, Normal Strength, Normal Sensation Psychological: Normal affect, Normal Mood Diagnostic/Tx/Re-eval - Medical Decision Making Given all the above x-rays were obtained Right hip x-ray per radiology shows nothing acute please see that report patient is in no distress he is comfort discharge home he has walking aids he can use walker wheelchair aids at his center that can assist him with his daily activities he is comfortable with discharge home to follow-up with outpatient providers Home stable Final impression fall with right hip injury ED Disposition - Plan for ED Patient: Diagnosis: Injury of hip Instructions: ED Mechanical Fall, ED CONTUSION Hip Referrals: Becka Hines NP-C [Primary Care Provider] -
[2020-03-16 16:51] VITALS: BP 115/85; PULSE 84; RESP 18; O2SAT 98
== END 2020-03-16 17:37 | disposition home or self-care (01) ==
PROVIDERS: Emergency Provider Emergency Medicine; PCP Nurse Practitioner Adult Health
DX: S79.911A Unspecified injury of right hip, initial encounter (principal); W18.30XA Fall on same level, unspecified, initial encounter; Y93.89 Activity, other specified; Y92.129 Unspecified place in nursing home as the place of occurrence of the external cause; Y99.8 Other external cause status
CPT/HCPCS: 73502; 99284

== ENCOUNTER → 2020-07-29 | Outpatient (CLI) | payer MEDICARE, MEDICAID, SELFPAY ==
[2020-07-15 14:52] VITALS: BMI 40.6
--- NOTE | 2020-07-29 12:24 | MRI_ITS ---
ACR Level 3 findings have been noted. An addendum which confirms receipt of the report will follow. STUDY: MRI LUMBAR SPINE WITHOUT CONTRAST REASON FOR EXAM: Male, 69 years old. back injury, back pain, pt extremely kyphotic TECHNIQUE: Standardized fat and water weighted pulse sequences were obtained in the sagittal and axial planes. COMPARISON: X-ray dated 07/15/2020 FINDINGS: Lumbar lordosis exaggerated. Dextroscoliosis. Incompletely characterized T12 vertebral body bone lesion extending into the posterior elements measuring approximately 2.1 cm x 2.2 cm. Lesion demonstrates high T2/STIR signal end low T1 signal. L1 vertebral body lesion most compatible with hemangioma and chronic L1 vertebral body fracture. 3 mm bone retropulsion at the L1 level. No acute fracture line. No acute dislocation. No acute cortical destruction. Conus medullaris terminates normally at the T12 level. Paraspinal muscle atrophy. Sacrum intact. Normal aorta. Normal retroperitoneum. T12-L1: Endplate spondylosis. Disc bulge/retropulsed bone with minimal central canal narrowing. Facet joint arthrosis. Normal bilateral lateral recesses. Normal bilateral intervertebral neural foramina. L1-2: Endplate spondylosis. Disc bulge with mild central canal narrowing. Facet joint arthrosis. Left lateral recess narrowing without impingement. Neural foramina narrowing without impingement. L2-3: Normal endplates. Shallow disc bulge. Facet joint arthrosis. Normal central canal and bilateral lateral recesses. Normal bilateral intervertebral neural foramina. L3-4: Endplate spondylosis. Disc bulge with mild/moderate central canal narrowing. Facet joint arthrosis. Bilateral lateral recess narrowing without impingement. Neural foraminal narrowing without impingement. L4-5: Endplate spondylosis with degenerative/reactive edema. Disc bulge with moderate central canal narrowing. Facet joint arthrosis. Lateral recess narrowing without impingement. Neural foraminal narrowing without impingement. Epidural lipomatosis contributes to central canal narrowing. L5-S1: Endplate spondylosis. Disc bulge with moderate central canal narrowing. Facet joint arthrosis. Lateral recess narrowing with contact of the descending nerve roots. Right neural foraminal narrowing with impingement. Epidural lipomatosis contributes to central canal narrowing. MRI/Spine Lumbar (Routine) IMPRESSION: Multilevel intervertebral disc disease with central canal narrowing predominating at the L3-4 through L5-S1 levels Multilevel lateral recess narrowing with contact of the descending S1 nerve roots Multilevel neural foraminal narrowing with impingement of the right exiting L5 nerve root Exaggerated lordosis, dextroscoliosis and moderate osteoarthritis Chronic L1 compression fracture with 3 mm retropulsion Incompletely characterized T12 vertebral body lesion (postcontrast evaluation recommended) Electronically Signed: Eris Norton DO at 10:31 EDT Tel , Service support ,
== END | disposition home or self-care (01) ==
PROVIDERS: PCP Nurse Practitioner Adult Health; Referring Provider Orthopaedic Surgery; Visit Provider Orthopaedic Surgery
DX: S32.000A Wedge compression fracture of unspecified lumbar vertebra, initial encounter for closed fracture (principal)
CPT/HCPCS: 72148

== ENCOUNTER 2022-07-06 10:52 | Day surgery (SDC) | payer MEDICARE, MEDICAID, SELFPAY ==
[2022-07-06] VITALS (7 sets, daily range): BP systolic 118–144; BP diastolic 69–84; PULSE 71–84; RESP 16–18; TEMP 36.4–36.8; O2SAT 94–98; BMI 35.9
--- NOTE | 2022-07-06 | COLBX_PTH ---
PATIENT: ANJEL LOPEZ LOC: EN U#:[id number] AGE/SX: 71/M ROOM: RE07/06/[address]: Dr. Mateo Jaramillo MD : 1950 BED: DIS: 07/06/2022 SPEC #: [id number] RECD: 07/06/22 16:46 STATUS: ANNA BRIGID #: [id number] HERMELINDO: 07/06/22 00:[address]: Mateo Jaramillo DEPT: SURGICAL PATHOLOGY RECD BY: Jhonatan Perry ENTERED: 07/07/22 08:36 SP TYPE: COLON BX OTHR DR: Becka Hines, MARKETING CONTENT MANAGER-C Tissues: Sigmoid colon biopsy Procedures: Surgery Specimen Level IV HEADER OPERATION: Colonoscopy (MAC) PRE-OP DIAGNOSIS: Screening, history of colon cancer TISSUE SUBMITTED: Sigmoid colon polyp MICROSCOPIC DIAGNOSIS Sigmoid colon polyp, biopsy: Tubular adenoma. AM:ady 07/08/2022 MICROSCOPIC DESCRIPTION Slides are reviewed. GROSS DESCRIPTION Received in fixative is one container labeled with the patient's name and designated sigmoid colon polyp. The specimen consists of multiple irregular fragments of light vickers soft tissue that in aggregate measure 1.5 x 0.5 x 0.3 cm. The specimen is totally submitted in one cassette. / SJ:ady 07/07/2022 TC:5 CPT: 97230
[2022-07-06] MEDS: Lactated Ringers 1,000 ML 15 ML IV (11:57)
--- NOTE | 2022-07-06 16:15 | PCM.HP.BLA ---
History and Physical Date of Admission: 07/06/22 HISTORY AND PHYSICAL ? Dash Ross 1950 ? REFERRING PHYSICIAN: Maddie Bran, DO ? CHIEF COMPLAINT: Consult (colonoscopy consult) ? HPI: The patient is a 71 year old male referred for endoscopy. Dash notes a personal history of colon cancer diagnosed in 2014. He is s/p right hemicolectomy 01/21/15 which showed invasive adenocarcinoma. Most recent colonoscopy 03/26/[address] Dash Nagy at [facility]. Patient was noted to have a diminutive rectal polyp and patent ileocolonic anastomosis. Three year follow-up colonoscopy was recommended. ? Patient denies any change in bowel habits, weight changes, blood in stools, black tarry stools or abdominal pain. The patient notes no upper GI complaints. ? Patient's past medical history significant for colon cancer as noted above, coronary artery disease, hypertension, seizures. Patient follows with Dr. Maddie Bran in primary care for his chronic medical conditions. ? ? ? PAST MEDICAL HISTORY PAST MEDICAL HISTORY Diagnosis Date ? Anemia ? ? Black stools ? ? started 03/11/15 ? Coronary artery disease ? ? Hypertrophy of prostate ? ? Hypothyroid ? ? Organic brain syndrome ? ? Osteoarthritis ? ? Osteopenia ? ? Other and unspecified hyperlipidemia ? ? Personal history of colon cancer ? ? Seizures (HCC) ? ? Unspecified essential hypertension 11/06/2005 ? ? PAST SURGICAL HISTORY PAST SURGICAL HISTORY Procedure Laterality Date ? CIRCUMCISION AGE >28 DAYS ? AGE 6 ? COLONOSCOPY FLX DX W/COLLJ SPEC WHEN PFRMD ? 09/11/2005 ? Colonoscopy ? COLONOSCOPY FLX DX W/COLLJ SPEC WHEN PFRMD ? 12/06/14 ? Colonoscopy ? COLONOSCOPY FLX DX W/COLLJ SPEC WHEN PFRMD ? 03/25/16 ? Colonoscopy outpt [facility] ? COLSC FLX W/REMOVAL LESION BY HOT BX FORCEPS ? 03/26/2017 ? ESOPHAGOGASTRODUODENOSCOPY TRANSORAL DIAGNOSTIC ? 11/22/14 ? EGD ? ESOPHAGOGASTRODUODENOSCOPY TRANSORAL DIAGNOSTIC ? 12/06/14 ? EGD ? HEMIARTHROPLASTY HIP PARTIAL ? 90s ? Hip replacement, partial Rt ? LAPAROSCOPY SURG CHOLECYSTECTOMY ? 01-21-15 ? WITH COLON ? LAPS COLECTOMY PRTL W/RMVL TERMINAL ILEUM ? 01-21-15 ? PAST SURGICAL HISTORY OF ? ? ? ORTHOPEDIC ON KNEES ? ? ? CURRENT MEDICATIONS Current Outpatient Medications Medication Sig ? valproic acid (DEPAKENE) 250 mg/5 mL syrup Take 20 mL by mouth three times daily. ? levETIRAcetam (KEPPRA) 750 mg tablet 2 TABLETS (1,500MG) BY MOUTH 2 TIMES A DAY DX: / NURSE TO REORDER ? divalproex ER (DEPAKOTE ER) 500 mg 24 hr tablet Take 2 tablets by mouth three times daily. ? spironolactone (ALDACTONE) 25 mg tablet Take 1 tablet by mouth every other day. ? spironolactone (ALDACTONE) 50 mg tablet Take 50 mg by mouth every 48 hours. alternating with 25 mg tablets ? alendronate (FOSAMAX) 70 mg tablet Take 70 mg by mouth one time a week. ? magnesium oxide (MAG-OX) 400 mg (241.3 mg magnesium) tablet Take 400 mg by mouth daily at bedtime. ? sucralfate (CARAFATE) 1 gram tablet Take 1 tablet by mouth three times daily with meals. ? OLANZapine (ZYPREXA) 7.5 mg tablet Take 1 tablet by mouth daily at bedtime. ? venlafaxine ER (EFFEXOR XR) 150 mg 24 hr capsule Take 1 capsule by mouth once daily. Take Effexor XR 150 mg with Effexor XR 37.5 mg daily ? ascorbic acid, vitamin C, (VITAMIN C) 500 mg tablet Take 500 mg by mouth daily with lunch. ? Vitamin E, dl, acetate, (VITAMIN E) 400 unit capsule Take 400 Units by mouth every other day. Once capsule by mouth every other day with lunch ? montelukast (SINGULAIR) 10 mg tablet Take 10 mg by mouth daily at bedtime. ? loratadine (CLARITIN) 10 mg tablet Take 10 mg by mouth daily at bedtime. ? ferrous gluconate 270 mg (27 mg iron) tab Take 1 tablet by mouth daily with food. ? Pregabalin (LYRICA) 200 mg capsule Take 200 mg by mouth three times daily. ? pantoprazole DR (PROTONIX) 40 mg tablet Take 40 mg by mouth once daily. ? bethanechol (URECHOLINE) 25 mg tablet Take 25 mg by mouth three times daily. ? acetaminophen (TYLENOL ARTHRITIS PAIN) 650 mg CR tablet Take 1,300 mg by mouth twice daily. ? cholecalciferol (VITAMIN D-3) 2,000 unit tablet Take 2,000 Units by mouth once daily. ? alfuzosin SR (UROXATRAL) 10 mg 24 hr tablet Take 10 mg by mouth daily at bedtime. ? Vgibk-6-QQO-EPA-Fish Oil (FISH OIL) 1,000 mg (120 mg-180 mg) cap Take one capsule by mouth twice daily. ? bumetanide (BUMEX) 2 mg tablet Take 1 tablet by mouth once daily. ? finasteride (PROSCAR) 5 mg tablet Take 1 tablet by mouth once daily. ? COMPOUNDED PRESCRIPTION Home PT for upper back and neck pain. Dx:M54.2. ? Diaper,Brief, Adult,Disposable (ADULT BRIEFS - LARGE) misc 1 Box four times daily as needed. Use 3-4 times daily as needed Dx bowel incontinence due to Cancer-R32, Resection of bowel-Z92.89 ? clopidogrel (PLAVIX) 75 mg tablet Take 1 tablet by mouth once daily. ? atorvastatin (LIPITOR) 40 mg tablet Take 1 tablet by mouth once daily. ? potassium chloride (KLOR-CON) 20 mEq packet Take 20 mEq by mouth twice daily. ? COMPOUNDED PRESCRIPTION Large manual wheelchair. Dx 345.10; 277.7; 153.9 ? allopurinol (ZYLOPRIM) 100 mg tablet Take 1 tablet by mouth once daily. For gout. (Patient taking differently: Take 100 mg by mouth daily at bedtime. For gout. ) ? rOPINIRole (REQUIP) 1 mg tablet Take 1 tablet by mouth three times daily. ? COMPOUNDED PRESCRIPTION Use daily lower extremity wraps for edema. May use rita wraps in place of compression stockings. ? COMPOUNDED PRESCRIPTION KNEE HIGH COMPRESSION STOCKINGS, 20-30 MM, I DX: EDEMA ? levothyroxine (SYNTHROID) 50 mcg tablet Take 1 tablet by mouth once daily. Take on empty stomach. For Thyroid. ? THERAPEUTIC MULTIVITAMIN TAB Take one (1) tablet daily - without iron ? No current facility-administered medications for this visit. ? ? ALLERGIES: Asa [Salicylates], Nickel, and Trileptal [Oxcarbazepine] ? PERSONAL HISTORY: SOCIAL HISTORY Social History ? Tobacco Use ? Smoking status: Never Smoker ? Smokeless tobacco: Never Used Substance Use Topics ? Alcohol use: No ? Drug use: No ? FAMILY HISTORY: FAMILY HISTORY FAMILY HISTORY Problem Relation Age of Onset ? Heart Mother ? ? SJORGENS, ANGIOPLASTY, ASHD ? Cancer Father ? ? LUNG ? Heart Father ? ? MO X 3 ? Heart Maternal Aunt ? ? MO ? Diabetes Maternal Aunt ? ? other (EPILEPSY) Paternal Grandfather ? ? ? REVIEW OF SYMPTOMS: The review of systems data was entered by the nurse and reviewed by me ? Nursing Notes: Cheryl Sarah RN 04/14/2022 8:57 AM Signed REVIEW OF SYSTEMS: General: The patient denies fatigue, denies weight loss, denies weight gain, denies feeling hot, and denies feelings of cold. Eyes: The patient denies glaucoma, denies eye injury/surgery, wears glasses or contacts. Ear/Nose/Throat: The patient NOTES allergies, denies hayfever, denies ear infections, and denies bloody noses. Cardiovascular: The patient denies chest pain, NOTES heart disease, NOTES high blood pressure,denies cardiac stent, denies prior heart attack, denies irregular heart beat, NOTES high cholesterol, denies poor circulation, denies heart failure, other cardiac issues, denies claudication, denies cold feet, denies peripheral arterial stent. Respiratory: The patient denies tuberculosis, denies pneumonia, denies frequent cough, denies pulmonary embolism, denies shortness of breath, and denies coughing up blood. Gastrointestinal: The patient denies difficulty swallowing, NOTES acid reflux, denies ulcers, denies vomiting, denies jaundice/hepatitis, denies gallbladder problems, NOTES black or tarry stools, denies hemorrhoids, denies bleeding from rectum, denies diverticulitis, denies constipation, denies diarrhea, denies loss of stool control, and denies hernias. Kidney/Bladder: The patient denies kidney stones, denies urine infections, and denies bloody urine. Skin: The patient denies a history of skin cancer, denies bleeding/changing moles, and denies a history of skin rash. Neurologic: The patient NOTES a history of epilepsy/convulsions, denies headaches, denies head/spinal injuries, and denies stroke/TIA. Psychiatric: The patient NOTES psychiatric medications, denies depression, and denies voices, denies substance abuse. Endocrine: The patient NOTES thyroid disorders, denies diabetes, and denies hormonal problems. Hematologic: The patient denies a history of bruising, denies bleeding, and NOTES anemia, denies blood clots. Infections: The patient denies a history of measles and mumps, denies rheumatic fever, and denies sexually transmitted diseases. Musculoskeletal: The patient NOTES back pain/injury, NOTES back problems, denies sciatica, NOTES knee/foot trouble, NOTES arthritis, or denies gout. ? ? When was patient's last Mammogram screening? N/A ? Last Colonoscopy: 2014 ? Cheryl Sarah RN Correct to above ROS-last colonoscopy was in 2016. I have confirmed and edited as necessary, the PFSH and ROS obtained by others. Madelin Gamble PA-C ? PHYSICAL EXAMINATION: ? General: The patient is 71 year old male, well nourished, well hydrated in no acute distress. The patient is oriented to time, place, and person. ? VITALS: Blood pressure 126/76, pulse 102, temperature 36.7 ?C (98.1 ?F), height 157.5 cm (5' 2), weight 97.3 kg (214 lb 9.6 oz), SpO2 97 %. Body mass index is 39.25 kg/m?. ? HEENT: Normal cephalic, ataumatic, pupils are equally round, sclera are anicteric, mucous membranes are moist, oropharynx is clear. Neck has no masses, asymmetry or lymphadenopathy. ? Respiratory: Clear to auscultation and percussion. Normal respiratory excursion and pattern. ? Cardiac: Examination is regular rate and rhythm. Normal S1/S2 ? Abdominal exam: Soft, nontender, with no palpable masses. No hepatosplenomegaly. No palpable hernias. ? Extremities: no clubbing, cyanosis or edema. No adenopathy. ? LABORATORY VALUES: As Noted ? RADIOLOGIC STUDIES: As Noted ? ? ? Assessment IMPRESSION: history of colon cancer, encounter for surveillance colonoscopy ? PLAN: I have reviewed my findings with the surgeon. Will plan for lower endoscopy. We discussed the risks and benefits of the planned endoscopy. I have informed the patient that complications can occur including failure to complete the endoscopy and perforation. The patient had the opportunity to ask questions concerning the planned endoscopy. My staff has also explained the procedure to the patient in understandable terms and has given the patient printed material concerning the procedure. The patient freely consents to surgery. ? The patient was offered a surgery/procedure at a [facility]. I have counseled the patient regarding the risk of exposure to and/or potential harm posed by the COVID-19 virus with having a surgery/procedure at this time versus the risk of? delaying the surgery/procedure. It is not possible to know either the risk of delaying the surgery or procedure or chance of getting an infection with perfect accuracy, but a joint decision was made between the patient and myself?to proceed at this time with endoscopy. ? ? I plan to use Golytely bowel preparation ? The patient has medical comorbidities for which we will plan for the procedure to be performed under Monitored Anesthetic Care. ? ? ? Diagnoses: (Z12.11) Encounter for screening for malignant neoplasm of colon (primary encounter diagnosis) (Z85.038) Personal history of colon cancer ? Consultation requested by Dr. Bran for an opinion regarding surveillance colonoscopy. My final recommendations will be communicated back to the requesting physician by way of shared Medical record or letter to requesting physician via US mail. ? Madelin Gamble PA-C I have re-examined the patient. There are no clinical changes since date of exam.
--- NOTE | 2022-07-06 16:41 | OP.COLON_ITS ---
Patient Name: Dash Ross Procedure Date: 07/06/2022 2:51 PM Date of : 1950 Age: 71 Procedure: Colonoscopy Indications: High risk colon cancer surveillance: Personal history of colon cancer Providers: Mateo Jaramillo MD Medicines: See the Anesthesia note for documentation of the administered medications Patient Profile: This is a 71 year old male. Refer to note in patient chart for documentation of history and physical. Last Colonoscopy: 2016. Complications: No immediate complications. Estimated blood loss: None. Procedure: Pre-Anesthesia Assessment: - Prior to the procedure, a History and Physical was performed, and patient medications and allergies were reviewed. The patient's tolerance of previous anesthesia was also reviewed. The risks and benefits of the procedure and the sedation options and risks were discussed with the patient. All questions were answered, and informed consent was obtained. Prior Anticoagulants: The patient has taken Plavix (clopidogrel), last dose was 5 days prior to procedure. ASA Grade Assessment: III - A patient with severe systemic disease. After reviewing the risks and benefits, the patient was deemed in satisfactory condition to undergo the procedure. After I obtained informed consent, the scope was passed under direct vision. Throughout the procedure, the patient's blood pressure, pulse, and oxygen saturations were monitored continuously. The colonoscope was introduced through the anus and advanced to the ileocolonic anastomosis. The colonoscope was introduced through the and advanced to. The colonoscopy was performed without difficulty. The patient tolerated the procedure well. The quality of the bowel preparation was good. Scope In: 4:22:01 PM Scope Withdrawal Time 0 hours 7 minutes 24 seconds Scope Out: 4:36:22 PM Total Procedure Duration Time 0 hours 14 minutes 21 seconds Findings: The perianal and digital rectal examinations were normal. A small polyp was found in the sigmoid colon. The polyp was sessile. The polyp was removed with a hot snare. Resection and retrieval were complete. The exam was otherwise without abnormality on direct and retroflexion views. Impression: - One small polyp in the sigmoid colon, removed with a hot snare. Resected and retrieved. - The examination was otherwise normal on direct and retroflexion views. Recommendation: - Patient has a contact number available for emergencies. The signs and symptoms of potential delayed complications were discussed with the patient. Return to normal activities tomorrow. Written discharge instructions were provided to the patient. - Resume previous diet. - Continue present medications. - Await pathology results. - Repeat colonoscopy in 5 years for surveillance. - Return to physician assistant director of plant operations in 1 week. Procedure Code(s): --- Professional --- 54566, Colonoscopy, flexible; with removal of tumor(s), polyp(s), or other lesion(s) by snare technique Diagnosis Code(s): --- Professional --- Z85.038, Personal history of other malignant neoplasm of large intestine D12.5, Benign neoplasm of sigmoid colon CPT copyright 2017 [employer]. All rights reserved. The codes documented in this report are preliminary and upon pigeon fancier review may be revised to meet current compliance requirements. MD Mateo Landrum MD 07/06/2022 4:40:57 PM This report has been signed electronically. Number of Addenda: 0 Note Initiated On: 07/06/2022 2:51 PM
--- NOTE | 2022-07-06 16:41 | OP.CCLET_ITS ---
07/06/2022 Becka Hines Re : Colonoscopy procedure for Dash Ross Dear Donny This procedure was performed on Wednesday, July 06, 2022. My impressions and recommendations are as follows: Impressions : - One small polyp in the sigmoid colon, removed with a hot snare. Resected and retrieved. - The examination was otherwise normal on direct and retroflexion views. Recommendations : - Patient has a contact number available for emergencies. The signs and symptoms of potential delayed complications were discussed with the patient. Return to normal activities tomorrow. Written discharge instructions were provided to the patient. - Resume previous diet. - Continue present medications. - Await pathology results. - Repeat colonoscopy in 5 years for surveillance. - Return to physician buyer assistant in 1 week. My findings are described in the full procedure note, which is enclosed. If I can be of further assistance, please feel free to contact me at Doctor phone number(s): , Work: . Sincerely, MD Mateo Landrum MD 07/06/2022 4:40:57 PM This report has been signed electronically.
== END 2022-07-06 18:08 | disposition home or self-care (01) ==
LOC: EN 10:59 → AC 11:26
PROVIDERS: PCP Nurse Practitioner Adult Health; Referring Provider Nurse Practitioner Adult Health; Visit Provider Surgery
PROC: 0DJD8ZZ Inspection of Lower Intestinal Tract, Via Natural or Artificial Opening Endoscopic (ICD-10-PCS; CPT 45378; principal; 2022-07-06 12:25)
DX: Z12.11 Encounter for screening for malignant neoplasm of colon (principal); G40.909 Epilepsy, unspecified, not intractable, without status epilepticus; D12.5 Benign neoplasm of sigmoid colon; I25.10 Atherosclerotic heart disease of native coronary artery without angina pectoris; I10 Essential (primary) hypertension; E03.9 Hypothyroidism, unspecified; E78.5 Hyperlipidemia, unspecified; F09 Unspecified mental disorder due to known physiological condition; N40.0 Benign prostatic hyperplasia without lower urinary tract symptoms; M81.0 Age-related osteoporosis without current pathological fracture; M19.90 Unspecified osteoarthritis, unspecified site; Z79.02 Long term (current) use of antithrombotics/antiplatelets; Z79.83 Long term (current) use of bisphosphonates; Z79.899 Other long term (current) drug therapy; Z85.038 Personal history of other malignant neoplasm of large intestine; Z86.010 Personal history of colon polyps
CPT/HCPCS: 45385; 88305; J7120

== ENCOUNTER 2022-08-11 14:36 | Emergency (ER) | payer MEDICARE, MEDICAID, SELFPAY ==
[2022-08-11] VITALS (7 sets, daily range): BP systolic 140–155; BP diastolic 78–134; PULSE 107–116; RESP 16–18; TEMP 36.4; O2SAT 95–98; BMI 37.2
--- NOTE | 2022-08-11 14:43 | CM.ED ---
SW Note DARLENE received call from Marian at [facility]. She assessed patient today. He voices SI with plan and intent. Plan is to cut his wrists. Marian reports that she did a safety plan 3 weeks ago and the patient is deteriorating thus patient needs inpatient psych. Plan: Inpatient psych Sol TILLMAN
--- NOTE | 2022-08-11 15:00 | EKG12_ITS ---
Test Reason : SI Blood Pressure : / mmHG Vent. Rate : 106 BPM Atrial Rate : 106 BPM P-R Int : 130 ms QRS Dur : 086 ms QT Int : 326 ms P-R-T Axes : 042 -35 027 degrees QTc Int : 433 ms Sinus tachycardia Left axis deviation Abnormal ECG Confirmed by CAROLYN MUNOZ, GISSELL ([id number]), advertising editor ALTHEA DOUGLAS ([id number]) on 08/18/2022 9:25:50 A M Referred By: Confirmed By:RENEE LEON MD
--- NOTE | 2022-08-11 15:01 | EDS_ITS ---
HPI HPI - Psych History of Present Illness Chief Complaint: Suicidal Detail of Chief Complaint: Depressed, suicidal thoughts and intent Informant: patient, police/balance sheet analyst and mental health staff Onset/Context/Timing Onset: Weeks (Onset 6 weeks) Context: Sudden Onset Conflict: Family (His cat was taken from him by his sister) Timing: Continuous Current Severity: Unable to determine Maximum Severity: Unable to determine Worsened by: Situational factors and Alcohol intoxication Associated Symptoms Associated Symptoms - Psych: Positive for Depressed, Change in Eating, Change in sleeping, Decreased Interest, Suicidal Thoughts and Angry; Negative for Guilt, Hopelessness, Easily distracted, Grandiosity, Flight of Ideas, Increased activity, Pressured Speech, Agitated, Hostile, Threatening, Confusion, Paranoia, Visual Hallucinations or Auditory Hallucinations Specific plan (suicidal thought): Cut his wrist Narrative Narrative: Patient is a 71-year-old male who presents from [facility] by ambulance. He was pink slipped by the [employer] [facility] [employer] [facility] [employer] social worker from crisis. Patient admits he is depressed. Patient states he is depressed because his cat was taken from him. He believes he is able to care for the cat. His sister apparently believes he is not. Patient has had thoughts of harming himself for the past 6 weeks. He has not acted on these thoughts. Patient states he has never been hospitalized for psychiatric reasons. Patient states he is never attempted to harm himself. I was informed by our [employer] social worker that he could not be contract for safety. Patient denies headache, visual, ocular auditory symptoms. Patient denies respiratory or cardiac symptoms. Patient denies GI or symptoms. Prior similar symptoms: No Recent Illness/Hospitalization: No PFSH [facility] Medical History Anxiety Benign essential HTN BPH (benign prostatic hyperplasia) BPH (benign prostatic hyperplasia) Cancer Cardiology follow-up encounter Depression Easy bruising Epilepsy Gastric reflux Gout History of colon cancer History of echocardiogram History of edema History of seizure History of stress test Hyperlipemia Hypothyroid Leg cramps Loose, teeth Non-smoker Pure hypercholesterolemia Restless legs Schizophrenia Seizure disorder Shortness of breath on exertion Sleep apnea Walker as ambulation aid Wears glasses Home Medications alendronate 70 mg tablet 70 mg PO LEON OSTEOPOROSIS 12/07/16 [History Last Taken 07/09/19] allopurinol 100 mg tablet 100 mg PO QHS GOUT 12/07/16 [History Last Taken 07/10/19] atorvastatin 40 mg tablet 40 mg PO QHS CHOLESTEROL 12/07/16 [History Last Taken 07/09/19] clopidogrel 75 mg tablet 75 mg PO DAILY ANTIPLATELET 12/07/16 [History Last Taken 07/09/19] finasteride 5 mg tablet 5 mg PO DAILY PROSTATE 12/07/16 [History Last Taken 07/09/19] levothyroxine 50 mcg tablet 75 mcg PO DAILY THYROID 12/07/16 [History Last Taken 07/06/22] acetaminophen 650 mg tablet,extended release 1,300 mg PO BID PAIN 03/23/17 [History Last Taken 07/10/19] alfuzosin 10 mg tablet,extended release 24 hr 10 mg PO QHS URINARY URGENCY 03/23/17 [History Last Taken 07/10/19] bumetanide 2 mg tablet 2 mg PO DAILY DIURETIC 03/23/17 [History Last Taken 07/09/19] ascorbic acid (vitamin C) 500 mg capsule 500 mg PO DAILY@1200 SUPPLEMENT 03/17/19 [History Last Taken 07/08/19] bethanechol chloride 25 mg tablet 25 mg PO TID BLADDER 03/17/19 [History Last Taken 07/09/19] ferrous gluconate 240 mg (27 mg iron) tablet (Ferate) 27 mg PO DAILY@1200 SUPPLEMENT 03/17/19 [History Last Taken 07/08/19] montelukast 10 mg tablet 10 mg PO QHS ALLERGIES 03/17/19 [History Last Taken 07/10/19] pantoprazole 40 mg tablet,delayed release 40 mg PO DAILY ACID REFLUX 03/17/19 [History Last Taken 07/06/22] sucralfate 1 gram tablet 1 g PO TIDCM REFLUX 03/17/19 [History Last Taken 07/09/19] vitamin E 200 unit capsule 400 unit PO QODAY SUPPLEMENT 03/17/19 [History Last Taken 07/10/19] cholecalciferol (vitamin D3) 50 mcg (2,000 unit) capsule 2,000 unit PO QHS SUPPLEMENT 07/11/19 [History Last Taken 07/10/19] magnesium oxide 400 mg (241.3 mg magnesium) tablet 400 mg PO QHS SUPPLEMENT 07/11/19 [History Last Taken 07/10/19] potassium chloride 20 mEq tablet,extended release(part/cryst) 20 meq PO BID SUPPLEMENT 07/11/19 [History Last Taken 07/10/19] ropinirole 1 mg tablet 1 mg PO TID SEIZURES 07/11/19 [History Last Taken 07/09/19] bismuth subsalicylate 262 mg/15 mL oral suspension ([place] Bismuth) 524 mg PO Q30- 60M PRN N/V 07/15/20 [History Last Taken Unknown] lactase 3,000 unit tablet 3,000 unit PO ONCE 07/15/20 [History Last Taken Unknown] levetiracetam 250 mg tablet 1,500 mg PO BID 07/15/20 [History Last Taken 07/06/22] loperamide 2 mg tablet 2 mg PO Q6H PRN Diarrhea 07/15/20 [History Last Taken Unknown] loratadine 10 mg capsule 10 mg PO QHS 07/15/20 [History Last Taken Unknown] olanzapine 5 mg disintegrating tablet 10 mg PO QHS DEPRESSION 07/15/20 [History Last Taken Unknown] polyethylene glycol 3350 17 gram/dose oral powder (Miralax) 17 g PO DAILY PRN Constipation 07/15/20 [History Last Taken Unknown] sennosides 8.6 mg capsule (senna) 8.6 mg PO DAILY PRN Constipation 07/15/20 [H istory Last Taken Unknown] spironolactone 25 mg tablet 25 mg PO .25 MG QOD, 50MG QOD DIURETIC 07/15/20 [History Last Taken Unknown] venlafaxine 150 mg capsule,extended release 24 hr 150 mg PO DAILY DEPRESSION 07/15/20 [History Last Taken Unknown] albuterol sulfate 0.63 mg/3 mL solution for nebulization 0.63 mg inhalation Q4H PRN SOB 07/01/22 [History Last Taken Unknown] guaifenesin 600 mg tablet, extended release 12 hr (Mucinex) 600 mg PO BID PRN Congestion 07/01/22 [History Last Taken Unknown] ibuprofen 600 mg tablet 600 mg PO Q6H PRN Pain 07/01/22 [History Last Taken Unknown] lysine 500 mg capsule 500 mg PO DAILY PRN Cold Sores 07/01/22 [History Last Taken Unknown] valproic acid (as sodium salt) 250 mg/5 mL oral solution 1,000 mg PO TID 07/01/22 [History Last Taken 07/06/22] Allergy/AdvReac Type Severity Reaction Status Date / Time aspirin Allergy cant Verified 08/11/22 14:37 remember rxn nickel Allergy Other Verified 08/11/22 14:37 oxcarbazepine Allergy cant Verified 08/11/22 14:37 [From Trileptal] remember rxn Family History Mother COPD (chronic obstructive pulmonary disease) CAD (coronary artery disease) Father Cancer lung Heart disease Myocardial infarction CAD (coronary artery disease) Aunt CAD (coronary artery disease) Myocardial infarction Surgical History History of cataract extraction History of cholecystectomy History of right hip replacement Social History (Updated 08/11/22 @ 15:[address] Donovan Skaggs MD) household members: none housing: assisted living facility Smoking Status: Never smoker alcohol intake: never substance use type: does not use caffeine: Yes Type: carbonated beverages Number of servings: 3 ROS ROS ED Constitutional Constitutional ED: Denies chills, fever(s), subjective, sweats or weight loss Eyes Eyes: Denies blurry vision, change in vision or diplopia ENT ENT ED: Denies ear pain, rhinorrhea or sore throat Cardiovascular Cardiovascular: Denies chest pain, orthopnea, palpitations, paroxysmal nocturnal dyspnea or racing heartbeat Respiratory/Chest Respiratory/Chest: Denies cough, dyspnea, dyspnea on exertion, orthopnea or paroxysmal nocturnal dyspnea Gastrointestinal Gastrointestinal: Denies abdominal pain, constipation, diarrhea, melena, nausea or vomiting Genitourinary Genitourinary ED: Denies dysuria, hematuria or urinary frequency Musculoskeletal Musculoskeletal: Denies arthralgias, back pain, myalgias or neck pain Integumentary Denies abscess, Abrasions or rash Neurologic Neurologic: Denies headache(s), paresthesias or weakness Psychiatric Psychiatric: Reports depression and suicidal thoughts; Denies anxiety Endocrine Endocrinology: Denies polydipsia, polyphagia or polyuria Hematologic/Lymphatic Hematologic/Lymphatic: Reports easy bruising; Denies easy bleeding EXAM Physical Exam Const Vital Signs: 08/11/22 14:37 08/11/22 17:07 08/11/22 18:00 Temperature 97.6 F L Temperature Source Temporal Pulse Rate 116 H 107 H Respiratory Rate 18 16 16 Blood Pressure 149/134 H 155/78 H Blood Pressure Mean 139 103 Pulse Ox 95 95 Oxygen Delivery Method Room Air Room Air 08/11/22 19:00 08/11/22 20:00 Temperature Temperature Source Pulse Rate Respiratory Rate 16 16 Blood Pressure Blood Pressure Mean Pulse Ox 97 97 Oxygen Delivery Method Room Air Positive well nourished, well developed, obese and unkempt General Appearance ED: unkempt and well developed Nutritional Appearance: obese HEENT Reports TM's clear HEENT Narrative: Nares patent. Uvula midline. No deviation however trusion. No erythema or exudate the posterior pharynx. normocephalic Tympanic Membrane ED: Yes TM's clear Eyes PERRL and EOMs intact bilaterally General Eye ED: Negative for pale conjunctiva or scleral icterus Neck no lymphadenopathy, supple and no JVD Resp normal respiratory effort and clear to auscultation bilaterally Cardio S1 normal heart sound, S2 normal heart sound and no murmurs Rate: regular rate Rhythm: regular rhythm GI non-tender, non-distended and no masses Auscultation: hypoactive bowel sounds Back/Spine no CVA tenderness Extremity Negative for normal to inspection Extremity Narrative: Patient has lymphedema bilaterally, which is chronic. He has compressive hoses. Neuro oriented x3, CN's II-XII intact bilaterally and no sensory deficits noted Eleva Coma Scale: document GCS findings Spontaneous Obeys Commands Oriented 15 Sensorium / Orientation: Negative for alert Psych cooperative Appearance: unkempt and disheveled Attitude: calm Activity / Motor Behavior: psychomotor slowing and avoids eye contact Speech: minimal and slow Mood & Affect: depressed Thought Process: normal thought process Thought Content: suicidality Attention / Concentration: attention grossly intact Memory / Cognition: memory grossly intact Insight: questionable Judgement: fair Skin General Skin Exam: Negative for jaundice Lesions: no lesions Rashes: no rashes MDM MDM MDM Narrative Medical decision making narrative: Patient is depressed with suicidal thoughts for the past 6 weeks. Patient has been pink slipped. Will obtain appropriate work-up to evaluate for metabolic infectious causes and to rule out causes other than his depression for his present state. market garden worker has been working on. Plan is to admit to psychiatric facility since the facility will not accept him back. The night physician will not need to be involved unless patient acts out. Plan is transfer to psychiatric facility. Lab Data Attestation: I reviewed the patient's lab results. Lab results narrative: White count is elevated nonspecific. Basic metabolic panel is unremarkable. Tox and alcohol level are negative. Labs: Laboratory Results - last 24 hr 08/11/22 08/11/22 08/11/22 15:25 15:25 15:25 WBC 14.3 H RBC 4.87 Hgb 15.6 Hct 46.0 MCV 94.5 H MCH 32.0 MCHC 33.9 RDW Std Deviation 43.3 RDW Coeff of Ronna 12.5 Plt Count 205 MPV 8.8 Immature Gran % (Auto) 0.500 Neut % (Auto) 80.3 H Lymph % (Auto) 8.9 L Bonner % (Auto) 9.8 Eos % (Auto) 0.2 Baso % (Auto) 0.3 Absolute Neuts (auto) 11.5 H Absolute Lymphs (auto) 1.27 Nucleated RBC % 0 Sodium 141 Potassium 3.6 Chloride 106 Carbon Dioxide 24.0 Anion Gap 11 BUN 12 Creatinine 1.01 Estim Creat Clear Calc 53.21 Est GFR (MDRD) Af Amer 93 Est GFR (MDRD) Non-Af 77 BUN/Creatinine Ratio 11.9 Glucose 131 H Calcium 9.3 Urine Opiates Screen Urine Methadone Screen Ur Barbiturates Screen Ur Phencyclidine Scrn Ur Amphetamines Screen MDMA (Ecstasy) Screen U Benzodiazepines Scrn Urine Cocaine Screen U Cannabinoids Screen Ur Drug Screen Comment Ethyl Alcohol < 3.0 08/11/22 15:50 WBC RBC Hgb Hct MCV MCH MCHC RDW Std Deviation RDW Coeff of Ronna Plt Count MPV Immature Gran % (Auto) Neut % (Auto) Lymph % (Auto) Bonner % (Auto) Eos % (Auto) Baso % (Auto) Absolute Neuts (auto) Absolute Lymphs (auto) Nucleated RBC % Sodium Potassium Chloride Carbon Dioxide Anion Gap BUN Creatinine Estim Creat Clear Calc Est GFR (MDRD) Af Amer Est GFR (MDRD) Non-Af BUN/Creatinine Ratio Glucose Calcium Urine Opiates Screen NEGATIVE Urine Methadone Screen NEGATIVE Ur Barbiturates Screen NEGATIVE Ur Phencyclidine Scrn NEGATIVE Ur Amphetamines Screen NEGATIVE MDMA (Ecstasy) Screen NEGATIVE U Benzodiazepines Scrn NEGATIVE Urine Cocaine Screen NEGATIVE U Cannabinoids Screen NEGATIVE Ur Drug Screen Comment Ethyl Alcohol EKG Initial EKG: Attestation: I personally reviewed and interpreted this EKG as follows: Interpretation: Sinus Tachycardia (Ventricular rate is 106. [place] to left. GA interval is 130 ms. QS duration 86 ms. QT duration 326 ms) Discharge Plan Triage Chief Complaint: Suicidal ED Provider: Donovan Skaggs Dx/Rx/DC Orders Clinical Impression: Depression, major, Benign essential HTN, Pure hypercholesterolemia, Morbid obesity, KYA (obstructive sleep apnea), Suicidal thoughts Prescriptions: No Action ascorbic acid (vitamin C) 500 mg capsule 500 mg PO DAILY@1200 pantoprazole 40 mg tablet,delayed release (DR/EC) 40 mg PO DAILY vitamin E 200 unit capsule 400 unit PO QODAY ferrous gluconate [Ferate] 240 mg (27 mg iron) tablet 27 mg PO DAILY@1200 sucralfate 1 gram tablet 1 g PO TIDCM bethanechol chloride 25 mg tablet 25 mg PO TID montelukast 10 mg tablet 10 mg PO QHS levetiracetam 250 mg tablet 1,500 mg PO BID loratadine 10 mg capsule 10 mg PO QHS bismuth subsalicylate [[place] Bismuth] 262 mg/15 mL suspension 524 mg PO Q30-60M PRN (Reason: N/V) Rx Instructions: do not exceed 8 doses in a 24 hour period loperamide 2 mg tablet 2 mg PO Q6H PRN (Reason: Diarrhea) polyethylene glycol 3350 [Miralax] 17 gram/dose powder 17 g PO DAILY PRN (Reason: Constipation) lactase 3,000 unit tablet 3,000 unit PO ONCE Rx Instructions: administer with meals and/or snacks senna 8.6 mg capsule 8.6 mg PO DAILY PRN (Reason: Constipation) atorvastatin 40 MG tablet 40 mg PO QHS alendronate 70 MG tablet 70 mg PO LEON clopidogrel 75 MG tablet 75 mg PO DAILY allopurinol 100 MG tablet 100 mg PO QHS levothyroxine 50 MCG tablet 75 mcg PO DAILY finasteride 5 MG tablet 5 mg PO DAILY spironolactone 25 mg tablet 25 mg PO .25 MG QOD, 50MG QOD Rx Instructions: 25mg qod, 50mg qod olanzapine 5 mg tablet,disintegrating 10 mg PO QHS bumetanide 2 MG tablet 2 mg PO DAILY acetaminophen 650 MG tablet extended release 1,300 mg PO BID alfuzosin 10 MG tablet extended release 24 hr 10 mg PO QHS ropinirole 1 MG tablet 1 mg PO TID potassium chloride 20 MEQ tablet,ER particles/crystals 20 meq PO BID magnesium oxide 400 MG tablet 400 mg PO QHS cholecalciferol (vitamin D3) 2,000 UNIT capsule 2,000 unit PO QHS venlafaxine 150 mg capsule,extended release 24hr 150 mg PO DAILY valproic acid (as sodium salt) 250 mg/5 mL Solution 1,000 mg PO TID L-Lysine 500 mg Capsule 500 mg PO DAILY PRN (Reason: Cold Sores) albuterol sulfate 0.63 mg/3 mL Solution For Nebulization 0.63 mg INHALATION Q4H PRN (Reason: SOB) ibuprofen 600 mg Tablet 600 mg PO Q6H PRN (Reason: Pain) guaifenesin [Mucinex] 600 mg Tablet Extended Release 12hr 600 mg PO BID PRN (Reason: Congestion) Primary Care Provider: Becka Hines CUSTOMER PRICING MANAGER Referrals: Becka Hines CUSTOMER PRICING MANAGER, CUSTOMER PRICING MANAGER-C [Primary Care Provider] - Disposition Disposition: Psychiatric Hospital or Unit
[2022-08-11 15:37] LABS: Absolute Lymphocyte Count 1.27 X10^3/uL (0.83-4.51); Absolute Neutrophil Count 11.5 X10^3/uL (2.0-7.7); Basophil# 0.05 X10^3/uL; Basophil% 0.3 % (0-1); Eosinophil# 0.03 X10^3/uL; Eosinophils% 0.2 % (0-5); Hemoglobin 15.6 g/dL (13.0-16.5); Lymphocyte # 1.27 X10^3/ul (0.83-4.51); Lymphocyte % 8.9 % (19-41); Mean Corp Hgb Conc 33.9 g/dL (32-36); Mean Corpuscular Volume 94.5 fL (80-94); Mean Platelet Vol. 8.8 fl (6.2-12.0); Monocyte% 9.8 % (0-10); NRBC Flagged by Analyzer 0 % (0-5); Neutrophil # 11.49 X10^3/uL (2.7-7.7); Neutrophil % 80.3 % (47-70); Platelet Count 205 K/mm3 (150-450); RBC Distribution Width CV 12.5 % (11.6-14.6); RBC Distribution Width SD 43.3 fl (35.1-43.9); Red Blood Count 4.87 M/mm3 (4.6-6.2); White Blood Count 14.3 K/mm3 (4.4-11.0)
--- NOTE | 2022-08-11 15:59 | ED.RN ---
per dr. de oliveira, pt does NOT need a sitter.
[2022-08-11 16:05] LABS: Anion Gap 11 (5-15); BUN 12 mg/dL (7-18); BUN/Creat Ratio 11.9 RATIO (10-20); Calcium,Total 9.3 mg/dL (8.5-10.1); Chloride 106 mmol/L (98-107); Creatinine, Serum 1.01 mg/dL (0.70-1.30); EST Glomerular Filtration Rate 77 mL/min (>60); Est Glom Filt Rate - Afr Amer 93 mL/min (>60); Estimated Creatinine Clearance 53.21 ml/min; Glucose 131 mg/dL (74-106); Potassium 3.6 mmol/L (3.5-5.1); Sodium Level 141 mmol/L (136-145)
[2022-08-11 16:16] LABS: Amphetamine Urine VISTA NEGATIVE (<1000 ng/mL); Barbiturate Urine VISTA NEGATIVE (< 200 ng/mL); Benzodiazepine Urine VISTA NEGATIVE (< 200 ng/mL); Cocaine Urine VISTA NEGATIVE (< 300 ng/mL); Ecstacy Urine VISTA NEGATIVE (< 500 ng/mL); Methadone Urine VISTA NEGATIVE (< 300 ng/mL); PCP Urine VISTA NEGATIVE (< 25 ng/mL); THC Urine VISTA NEGATIVE (< 50 ng/mL); Vista UDS pH Range 4
[2022-08-11 16:19] LABS: Alcohol, Blood (Medical)-Serum < 3.0 mg/dL
--- NOTE | 2022-08-11 16:29 | CM.ED ---
Addendum entered by Sol Gomez 08/11/22 18:33: MD Skaggs and this radio script writer believe that patient does not NEED a sitter while in the hospital. Sol MAZARIEGOS Original Note: SW met with patient briefly and patient voiced that he is not suicidal and does feel safe in the hospital. He voiced if he felt suicidal he would notify staff. Sol MAZARIEGOS
--- NOTE | 2022-08-11 16:30 | CM.ED ---
DARLENE called Carmen at Crisis to see if patient could return to [facility]. Carmen stated that she will call staff at [facility]. DARLENE received call from Carmen and she had contacted [facility] and spoke to BE Gallagher who spoke to [facility]. Carmen stated that patient had expressed plan and thus they were unable to accept the return of patient due to staffing as they did not have 24/7 staffing available. Per Carmen, [facility] is recommending inpatient psych. Sol MAZARIEGOS
--- NOTE | 2022-08-11 17:11 | NURSING ---
FAXED CHART TO [facility] [phone]
--- NOTE | 2022-08-11 18:34 | CM.ED ---
Cha Shant called this real estate underwriter and inquired as to why her brother, Dash, is in the Ed and why this is the first time she has heard about it. DARLENE advised Cha, who she reports is the POA, to call crisis. DARLENE provided her with crisis phone number. Sol MAZARIEGOS
--- NOTE | 2022-08-11 20:37 | ED.RN ---
pt inc of a huge amt of liquid stool, ania care given
[2022-08-12] VITALS (12 sets, daily range): BP systolic 131–135; BP diastolic 69–85; PULSE 69–75; RESP 12–22; O2SAT 96–100
[2022-08-12] MEDS: levETIRAcetam Oral Solution 500 MG/5 ML 1500 MG PO ×2 (00:29→11:49)
[2022-08-12] MEDS: Valproic Acid 250 MG/5 ML UDC 1000 MG PO ×2 (00:30→11:49)
[2022-08-12] MEDS: Montelukast 10 MG Tablet PO (00:32)
[2022-08-12] MEDS: Pramipexole Di-HCl 0.5 MG Tablet PO ×2 (00:36→11:50)
[2022-08-12] MEDS: Loratadine 10 MG Tablet PO (00:36)
[2022-08-12] MEDS: Atorvastatin Calcium 40 MG Tablet PO (00:37)
[2022-08-12] MEDS: Tamsulosin HCl 0.4 MG Capsule PO (00:38)
[2022-08-12] MEDS: BETHANECHOL CHLORIDE 25 MG TABLET PO ×2 (00:40→11:48)
[2022-08-12] MEDS: Magnesium Chloride 64 MG Delay Rel.Tablet 128 MG PO (00:40)
[2022-08-12] MEDS: Allopurinol 100 MG Tablet PO (00:40)
[2022-08-12] MEDS: Potassium Chloride Oral Tablet 20 MEQ PO ×2 (00:43→11:50)
--- NOTE | 2022-08-12 09:42 | NURSING ---
FAXED PINK SLIP AND MEDICAL CLEARANCE TO [facility]
--- NOTE | 2022-08-12 10:37 | CM.ED ---
Social Work Voicemail obtained from Marian diaz that patient is pending as [facility] [place] [facility]. Voicemail sent at 8:12 this morning. Doroteo CUNNINGHAM, GASPER
--- NOTE | 2022-08-12 11:35 | CM.ED ---
Social Work Telephone call from Lori diaz. Lori inquired about if patient has been accepted at [facility]. This director of social media marketing confirmed with medical team to not be aware of any acceptance for patient. Lori reports plan to reach out to [facility] to check on status of case. Doroteo CUNNINGHAM, GASPER
[2022-08-12] MEDS: Bumetanide 2 MG Tablet PO (11:45)
[2022-08-12] MEDS: Levothyroxine 75 MCG Tablet PO (11:47)
[2022-08-12] MEDS: Venlafaxine XR 150 MG Capsule PO (11:47)
[2022-08-12] MEDS: Ferrous Gluconate 324 MG Tablet PO (11:47)
[2022-08-12] MEDS: Sucralfate 1 GM Tablet PO (11:48)
[2022-08-12] MEDS: Clopidogrel Bisulfate 75 MG Tablet PO (11:48)
[2022-08-12] MEDS: Finasteride 5 MG Tablet PO (11:49)
[2022-08-12] MEDS: Pantoprazole Sodium 40 MG Tablet PO (11:50)
--- NOTE | 2022-08-12 11:51 | CM.ED ---
Social Work Telephone call from Lori Davis. Patient accepted by [facility] by Dr. Maguire. Nurse to call report to [phone]. This drug abuse social worker updated medical team on above. Caro to set up transportation. Doroteo Lawrence MSW, GASPER
--- NOTE | 2022-08-12 12:01 | NURSING ---
CALLED [facility], ETA IS 60 TO 90 MIN
== END 2022-08-12 13:44 ==
PROVIDERS: Emergency Provider Emergency Medicine; PCP Nurse Practitioner Adult Health; Visit Provider Emergency Medicine
DX: R45.851 Suicidal ideations (principal); E66.01 Morbid (severe) obesity due to excess calories; F32.9 Major depressive disorder, single episode, unspecified; I10 Essential (primary) hypertension; G47.33 Obstructive sleep apnea (adult) (pediatric)
CPT/HCPCS: 80048; 80307; 82077; 85025; 87811; 93005; 99284

== ENCOUNTER 2022-11-16 18:08 | Emergency (ER) | payer MEDICARE, MEDICAID, SELFPAY ==
[2022-11-16 18:12] VITALS: BP 107/78; PULSE 91; RESP 18; TEMP 36.7; O2SAT 97; BMI 27.6
--- NOTE | 2022-11-16 18:36 | EDS_ITS ---
HPI History of Present Illness Chief Complaint: Male Pain/Injury Narrative Narrative: Patient presents with scrotal bleeding from the ECF. Patient has no complaints. Seems the bleeding had subsided upon ED presentation. [facility] Medical History Anxiety Benign essential HTN BPH (benign prostatic hyperplasia) BPH (benign prostatic hyperplasia) Cancer Cardiology follow-up encounter Depression Easy bruising Epilepsy Gastric reflux Gout History of colon cancer History of echocardiogram History of edema History of seizure History of stress test Hyperlipemia Hypothyroid Leg cramps Loose, teeth Non-smoker Pure hypercholesterolemia Restless legs Schizophrenia Seizure disorder Shortness of breath on exertion Sleep apnea Walker as ambulation aid Wears glasses Home Medications alendronate 70 mg tablet 70 mg PO LEON OSTEOPOROSIS 12/07/16 [History Last Taken 07/09/19] allopurinol 100 mg tablet 100 mg PO QHS GOUT 12/07/16 [History Last Taken 07/10/19] atorvastatin 40 mg tablet 40 mg PO QHS CHOLESTEROL 12/07/16 [History Last Taken 07/09/19] clopidogrel 75 mg tablet 75 mg PO DAILY ANTIPLATELET 12/07/16 [History Last Taken 07/09/19] finasteride 5 mg tablet 5 mg PO DAILY PROSTATE 12/07/16 [History Last Taken 07/09/19] levothyroxine 50 mcg tablet 75 mcg PO DAILY THYROID 12/07/16 [History Last Taken 07/06/22] acetaminophen 650 mg tablet,extended release 1,300 mg PO BID PAIN 03/23/17 [History Last Taken 07/10/19] alfuzosin 10 mg tablet,extended release 24 hr 10 mg PO QHS URINARY URGENCY 03/23/17 [History Last Taken 07/10/19] bumetanide 2 mg tablet 2 mg PO DAILY DIURETIC 03/23/17 [History Last Taken 07/09/19] ascorbic acid (vitamin C) 500 mg capsule 500 mg PO DAILY@1200 SUPPLEMENT 03/17/19 [History Last Taken 07/08/19] bethanechol chloride 25 mg tablet 25 mg PO TID BLADDER 03/17/19 [History Last Taken 07/09/19] ferrous gluconate 240 mg (27 mg iron) tablet (Ferate) 27 mg PO DAILY@1200 SUPPLEMENT 03/17/19 [History Last Taken 07/08/19] montelukast 10 mg tablet 10 mg PO QHS ALLERGIES 03/17/19 [History Last Taken 07/10/19] pantoprazole 40 mg tablet,delayed release 40 mg PO DAILY ACID REFLUX 03/17/19 [History Last Taken 07/06/22] sucralfate 1 gram tablet 1 g PO TIDCM REFLUX 03/17/19 [History Last Taken 07/09/19] vitamin E 200 unit capsule 400 unit PO QODAY SUPPLEMENT 03/17/19 [History Last Taken 07/10/19] cholecalciferol (vitamin D3) 50 mcg (2,000 unit) capsule 2,000 unit PO QHS SUPPLEMENT 07/11/19 [History Last Taken 07/10/19] magnesium oxide 400 mg (241.3 mg magnesium) tablet 400 mg PO QHS SUPPLEMENT 07/11/19 [History Last Taken 07/10/19] potassium chloride 20 mEq tablet,extended release(part/cryst) 20 meq PO BID SUPPLEMENT 07/11/19 [History Last Taken 07/10/19] ropinirole 1 mg tablet 1 mg PO TID SEIZURES 07/11/19 [History Last Taken 07/09/19] bismuth subsalicylate 262 mg/15 mL oral suspension ([place] Bismuth) 524 mg PO Q30- 60M PRN N/V 07/15/20 [History Last Taken Unknown] lactase 3,000 unit tablet 3,000 unit PO ONCE 07/15/20 [History Last Taken Unknown] levetiracetam 250 mg tablet 1,500 mg PO BID 07/15/20 [History Last Taken 07/06/22] loperamide 2 mg tablet 2 mg PO Q6H PRN Diarrhea 07/15/20 [History Last Taken Unknown] loratadine 10 mg capsule 10 mg PO QHS 07/15/20 [History Last Taken Unknown] olanzapine 5 mg disintegrating tablet 10 mg PO QHS DEPRESSION 07/15/20 [History Last Taken Unknown] polyethylene glycol 3350 17 gram/dose oral powder (Miralax) 17 g PO DAILY PRN Constipation 07/15/20 [History Last Taken Unknown] sennosides 8.6 mg capsule (senna) 8.6 mg PO DAILY PRN Constipation 07/15/20 [History Last Taken Unknown] spironolactone 25 mg tablet 25 mg PO .25 MG QOD, 50MG QOD DIURETIC 07/15/20 [History Last Taken Unknown] venlafaxine 150 mg capsule,extended release 24 hr 150 mg PO DAILY DEPRESSION 07/15/20 [History Last Taken Unknown] albuterol sulfate 0.63 mg/3 mL solution for nebulization 0.63 mg inhalation Q4H PRN SOB 07/01/22 [History Last Taken Unknown] guaifenesin 600 mg tablet, extended release 12 hr (Mucinex) 600 mg PO BID PRN Congestion 07/01/22 [History Last Taken Unknown] ibuprofen 600 mg tablet 600 mg PO Q6H PRN Pain 07/01/22 [History Last Taken Unknown] lysine 500 mg capsule 500 mg PO DAILY PRN Cold Sores 07/01/22 [History Last Taken Unknown] valproic acid (as sodium salt) 250 mg/5 mL oral solution 1,000 mg PO TID 07/01/22 [History Last Taken 07/06/22] Allergy/AdvReac Type Severity Reaction Status Date / Time aspirin Allergy cant Verified 11/16/22 18:08 remember rxn nickel Allergy Other Verified 11/16/22 18:08 oxcarbazepine Allergy cant Verified 11/16/22 18:08 [From Trileptal] remember rxn Family History Mother COPD (chronic obstructive pulmonary disease) CAD (coronary artery disease) Father Cancer lung Heart disease Myocardial infarction CAD (coronary artery disease) Aunt CAD (coronary artery disease) Myocardial infarction Surgical History History of cataract extraction History of cholecystectomy History of right hip replacement Social History household members: none housing: assisted living facility Smoking Status: Never smoker alcohol intake: never substance use type: does not use caffeine: Yes Type: carbonated beverages Number of servings: 3 ROS ROS ED ROS Narrative Past medical history: Reviewed Medications: Reviewed Social history: Noncontributory Review of systems: GI: No abdominal pain Genitourinary: Scrotal bleeding as in HPI Musculoskeletal: Denies myalgias no difficulty with ambulation Skin: No other rash Neurological: No memory loss, confusion or any focal weakness Hematologic: No easy bleeding or easy bruising EXAM Physical Exam Narrative Exam Narrative: Physical exam General: Patient appears chronically ill. He does not appear in any distress. Head: Normocephalic, Atraumatic Eyes: Conjunctiva not pale ENT: Moist mucous membranes, no signs of dehydration Cardiovascular: Regular rate, Regular rhythm Respiratory: No distress, CTA bilaterally Abdomen: Soft, Nontender, Nondistended :. Normal external genitalia, there is old blood over the scrotum when I cleaned it off there is a punctate area that started bleeding again. No er ythema or calor or signs of infection. Back: Nontender, Normal Inspection. Negative for: CVA tenderness Extremities: Nontender, No edema Skin normal color Const Vital Signs: 11/16/22 18:12 Temperature 98.1 F Temperature Source Oral Pulse Rate 91 Respiratory Rate 18 Blood Pressure 107/78 Blood Pressure Mean 87 Pulse Ox 97 Oxygen Delivery Method Room Air MDM MDM MDM Narrative Medical decision making narrative: ECF records were reviewed, patient has seems to have no other complaints, after cauterization the bleeding stopped patient is now back to normal. He can be discharged back to the ECF Procedures Other Procedures Procedure(s): Hemostasis of scrotal bleeding I used silver nitrate and cauterized that 1 punctate bleeding area. Patient tolerated procedure well. Bleeding stopped Discharge Plan Triage Chief Complaint: Male Pain/Injury ED Provider: Tate Sherman Dx/Rx/DC Orders Clinical Impression: Scrotal bleeding, History of hypertension Prescriptions: No Action ascorbic acid (vitamin C) 500 mg capsule 500 mg PO DAILY@1200 pantoprazole 40 mg tablet,delayed release (DR/EC) 40 mg PO DAILY vitamin E 200 unit capsule 400 unit PO QODAY ferrous gluconate [Ferate] 240 mg (27 mg iron) tablet 27 mg PO DAILY@1200 sucralfate 1 gram tablet 1 g PO TIDCM bethanechol chloride 25 mg tablet 25 mg PO TID montelukast 10 mg tablet 10 mg PO QHS levetiracetam 250 mg tablet 1,500 mg PO BID loratadine 10 mg capsule 10 mg PO QHS bismuth subsalicylate [[place] Bismuth] 262 mg/15 mL suspension 524 mg PO Q30-60M PRN (Reason: N/V) Rx Instructions: do not exceed 8 doses in a 24 hour period loperamide 2 mg tablet 2 mg PO Q6H PRN (Reason: Diarrhea) polyethylene glycol 3350 [Miralax] 17 gram/dose powder 17 g PO DAILY PRN (Reason: Constipation) lactase 3,000 unit tablet 3,000 unit PO ONCE Rx Instructions: administer with meals and/or snacks senna 8.6 mg capsule 8.6 mg PO DAILY PRN (Reason: Constipation) atorvastatin 40 MG tablet 40 mg PO QHS alendronate 70 MG tablet 70 mg PO LEON clopidogrel 75 MG tablet 75 mg PO DAILY allopurinol 100 MG tablet 100 mg PO QHS levothyroxine 50 MCG tablet 75 mcg PO DAILY finasteride 5 MG tablet 5 mg PO DAILY spironolactone 25 mg tablet 25 mg PO .25 MG QOD, 50MG QOD Rx Instructions: 25mg qod, 50mg qod olanzapine 5 mg tablet,disintegrating 10 mg PO QHS bumetanide 2 MG tablet 2 mg PO DAILY acetaminophen 650 MG tablet extended release 1,300 mg PO BID alfuzosin 10 MG tablet extended release 24 hr 10 mg PO QHS ropinirole 1 MG tablet 1 mg PO TID potassium chloride 20 MEQ tablet,ER particles/crystals 20 meq PO BID magnesium oxide 400 MG tablet 400 mg PO QHS cholecalciferol (vitamin D3) 2,000 UNIT capsule 2,000 unit PO QHS venlafaxine 150 mg capsule,extended release 24hr 150 mg PO DAILY valproic acid (as sodium salt) 250 mg/5 mL Solution 1,000 mg PO TID L-Lysine 500 mg Capsule 500 mg PO DAILY PRN (Reason: Cold Sores) albuterol sulfate 0.63 mg/3 mL Solution For Nebulization 0.63 mg INHALATION Q4H PRN (Reason: SOB) ibuprofen 600 mg Tablet 600 mg PO Q6H PRN (Reason: Pain) guaifenesin [Mucinex] 600 mg Tablet Extended Release 12hr 600 mg PO BID PRN (Reason: Congestion) Primary Care Provider: Becka Hines PARLIAMENTARY ARCHIVIST Referrals: Becka Hines PARLIAMENTARY ARCHIVIST, PARLIAMENTARY ARCHIVIST-C [Primary Care Provider] - Activity Restrictions/Additional Instructions: You have a very small area of scrotal bleeding if this happens again put pressure on the scrotum for 15 minutes. Disposition Disposition: Home, Self Care
[2022-11-16 19:04] VITALS: BP 143/69; PULSE 88; RESP 16; O2SAT 97
== END 2022-11-16 21:13 | disposition home or self-care (01) ==
PROVIDERS: Emergency Provider Emergency Medicine; Visit Provider Emergency Medicine
DX: N50.1 Vascular disorders of male genital organs (principal); I10 Essential (primary) hypertension; E78.5 Hyperlipidemia, unspecified
CPT/HCPCS: 99284

== ENCOUNTER 2022-12-31 06:01 | Emergency (ER) | payer MEDICARE, MEDICAID, SELFPAY ==
[2022-12-31 06:02] VITALS: BP 109/64; PULSE 71; RESP 15; TEMP 36.2; O2SAT 98; BMI 34.2
--- NOTE | 2022-12-31 06:05 | RAD_ITS ---
INDICATION: Fall, lower back pain EXAMINATION/TECHNIQUE: X-RAY - XR Spine Lumbar 2 or 3 Views: AP, lateral and spot views COMPARISON: Lumbar spine radiographs from 07/15/2020 FINDINGS: Chronic L1 vertebral body compression fracture again noted. No acute fracture or traumatic subluxation. Stable dextroscoliotic curvature of thoracolumbar spine. Lower lumbar degenerative facet arthropathy. Degenerative disc space narrowing and vacuum disc changes at L3-S1. Status post right hip arthroplasty. Symmetric sacroiliac joints. Nonobstructive bowel gas pattern. Vascular calcifications noted. RAD/Lumbar Spine 2 or 3 Views IMPRESSION: Lumbar spondylosis and stable scoliosis with chronic L1 vertebral compression fracture. Electronically Signed: Eddie Nam MD at 7:03 EDT ,
--- NOTE | 2022-12-31 06:05 | CT_ITS ---
INDICATION: fall/trauma, patient very kyphotic please look at all series EXAMINATION: CT Head or Brain W/O Contrast Injection TECHNIQUE: Multiple axial images were obtained of the head without intravenous contrast. A radiation dose optimization technique was used for this scan. IV Contrast dosage and agent: None. COMPARISON: Head CT from 08/30/2019 FINDINGS: Evaluation somewhat limited secondary to patient positioning and beam hardening artifact. BRAIN PARENCHYMA: No intra- or extra-axial hemorrhage. No evidence of acute major territorial infarct. No intracranial mass or mass effect. Chronic bilateral deep cerebral white matter lucencies are present. Chronic cerebral involutional changes. CSF SPACES: Prominent cerebral sulci and extraaxial spaces secondary to involutional changes. Stable mild ventriculomegaly, likely secondary to involutional changes. Basal cisterns are patent. Intracranial atherosclerotic calcifications. CALVARIUM, SKULL BASE, PARANASAL SINUSES AND MASTOID AIR CELLS: Calvarium is intact. No acute findings within imaged paranasal sinuses. Mastoid air cells are well-pneumatized. ORBITS: No acute findings, as visualized. CT/Brain/Head without Contrast IMPRESSION: Chronic involutional and white matter changes. No evidence of acute intracranial abnormality. Electronically Signed: Eddie Nam MD at 7:14 EDT ,
--- NOTE | 2022-12-31 06:06 | ED.VIS.FALL ---
HPI HPI - Fall History of Present Illness Chief Complaint: Fall Informant: patient and EMS Narrative Narrative: Patient is at assisted living and apparently slipped and fell on a tile floor, falling to the floor patient states he thinks on his stomach, at about 4 AM, presents here by EMS at around 6 AM for evaluation. States he thinks he hit his head and it hurts a little bit and he has some pain in his low back. Denies pain or injury elsewhere. Denies any weakness or numbness in any of his extremities. Denies any nausea, vision changes, other symptoms. He provides limited history of basically gives one-word answers to all questions. He is on clopidogrel. No anticoagulants. [facility] Medical History Anxiety Benign essential HTN BPH (benign prostatic hyperplasia) BPH (benign prostatic hyperplasia) Cancer Cardiology follow-up encounter Depression Easy bruising Epilepsy Gastric reflux Gout History of colon cancer History of echocardiogram History of edema History of seizure History of stress test Hyperlipemia Hypothyroid Leg cramps Loose, teeth Non-smoker Pure hypercholesterolemia Restless legs Schizophrenia Seizure disorder Shortness of breath on exertion Sleep apnea Walker as ambulation aid Wears glasses Home Medications alendronate 70 mg tablet 70 mg PO LEON OSTEOPOROSIS 12/07/16 [History Last Taken 07/09/19] allopurinol 100 mg tablet 100 mg PO QHS GOUT 12/07/16 [History Last Taken 07/10/19] atorvastatin 40 mg tablet 40 mg PO QHS CHOLESTEROL 12/07/16 [History Last Taken 07/09/19] clopidogrel 75 mg tablet 75 mg PO DAILY ANTIPLATELET 12/07/16 [History Last Taken 07/09/19] finasteride 5 mg tablet 5 mg PO DAILY PROSTATE 12/07/16 [History Last Taken 07/09/19] levothyroxine 50 mcg tablet 75 mcg PO DAILY THYROID 12/07/16 [History Last Taken 07/06/22] acetaminophen 650 mg tablet,extended release 1,300 mg PO BID PAIN 03/23/17 [History Last Taken 07/10/19] alfuzosin 10 mg tablet,extended release 24 hr 10 mg PO QHS URINARY URGENCY 03/23/17 [History Last Taken 07/10/19] bumetanide 2 mg tablet 2 mg PO DAILY DIURETIC 03/23/17 [History Last Taken 07/09/19] ascorbic acid (vitamin C) 500 mg capsule 500 mg PO DAILY@1200 SUPPLEMENT 03/17/19 [History Last Taken 07/08/19] bethanechol chloride 25 mg tablet 25 mg PO TID BLADDER 03/17/19 [History Last Taken 07/09/19] ferrous gluconate 240 mg (27 mg iron) tablet (Ferate) 27 mg PO DAILY@1200 SUPPLEMENT 03/17/19 [History Last Taken 07/08/19] montelukast 10 mg tablet 10 mg PO QHS ALLERGIES 03/17/19 [History Last Taken 07/10/19] pantoprazole 40 mg tablet,delayed release 40 mg PO DAILY ACID REFLUX 03/17/19 [History Last Taken 07/06/22] sucralfate 1 gram tablet 1 g PO TIDCM REFLUX 03/17/19 [History Last Taken 07/09/19] vitamin E 200 unit capsule 400 unit PO QODAY SUPPLEMENT 03/17/19 [History Last Taken 07/10/19] cholecalciferol (vitamin D3) 50 mcg (2,000 unit) capsule 2,000 unit PO QHS SUPPLEMENT 07/11/19 [History Last Taken 07/10/19] magnesium oxide 400 mg (241.3 mg magnesium) tablet 400 mg PO QHS SUPPLEMENT 07/11/19 [History Last Taken 07/10/19] potassium chloride 20 mEq tablet,extended release(part/cryst) 20 meq PO BID SUPPLEMENT 07/11/19 [History Last Taken 07/10/19] ropinirole 1 mg tablet 1 mg PO TID SEIZURES 07/11/19 [History Last Taken 07/09/19] bismuth subsalicylate 262 mg/15 mL oral suspension ([place] Bismuth) 524 mg PO Q30-60M PRN N/V 07/15/20 [History Last Taken Unknown] lactase 3,000 unit tablet 3,000 unit PO ONCE 07/15/20 [History Last Taken Unknown] levetiracetam 250 mg tablet 1,500 mg PO BID 07/15/20 [History Last Taken 07/06/22] loperamide 2 mg tablet 2 mg PO Q6H PRN Diarrhea 07/15/20 [History Last Taken Unknown] loratadine 10 mg capsule 10 mg PO QHS 07/15/20 [History Last Taken Unknown] olanzapine 5 mg disintegrating tablet 10 mg PO QHS DEPRESSION 07/15/20 [History Last Taken Unknown] polyethylene glycol 3350 17 gram/dose oral powder (Miralax) 17 g PO DAILY PRN Constipation 07/15/20 [History Last Taken Unknown] sennosides 8.6 mg capsule (senna) 8.6 mg PO DAILY PRN Constipation 07/15/20 [History Last Taken Unknown] spironolactone 25 mg tablet 25 mg PO .25 MG QOD, 50MG QOD DIURETIC 07/15/20 [History Last Taken Unknown] venlafaxine 150 mg capsule,extended release 24 hr 150 mg PO DAILY DEPRESSION 07/15/20 [History Last Taken Unknown] albuterol sulfate 0.63 mg/3 mL solution for nebulization 0.63 mg inhalation Q4H PRN SOB 07/01/22 [History Last Taken Unknown] guaifenesin 600 mg tablet, extended release 12 hr (Mucinex) 600 mg PO BID PRN Congestion 07/01/22 [History Last Taken Unknown] ibuprofen 600 mg tablet 600 mg PO Q6H PRN Pain 07/01/22 [History Last Taken Unknown] lysine 500 mg capsule 500 mg PO DAILY PRN Cold Sores 07/01/22 [History Last Taken Unknown] valproic acid (as sodium salt) 250 mg/5 mL oral solution 1,000 mg PO TID 07/01/22 [History Last Taken 07/06/22] Allergy/AdvReac Type Severity Reaction Status Date / Time aspirin Allergy cant Verified 12/31/22 06:17 remember rxn nickel Allergy Other Verified 12/31/22 06:17 oxcarbazepine Allergy cant Verified 12/31/22 06:17 [From Trileptal] remember rxn Family History Mother COPD (chronic obstructive pulmonary disease) CAD (coronary artery disease) Father Cancer lung Heart disease Myocardial infarction CAD (coronary artery disease) Aunt CAD (coronary artery disease) Myocardial infarction Surgical History History of cataract extraction History of cholecystectomy History of right hip replacement Social History household members: none housing: assisted living facility Smoking Status: Never smoker alcohol intake: never substance use type: does not use caffeine: Yes Type: carbonated beverages Number of servings: 3 ROS ROS ED Review of Systems ROS Unobtainable: other Details: ROS limited due to mental condition Eyes Eyes: Denies blurry vision or change in vision ENT ENT ED: Denies facial pain Cardiovascular Cardiovascular: Denies chest pain Respiratory/Chest Respiratory/Chest: Denies dyspnea Gastrointestinal Gastrointestinal: Denies abdominal pain or nausea Musculoskeletal Musculoskeletal: Reports back pain; Denies neck pain Neurologic Neurologic: Reports headache(s); Denies paresthesias or weakness EXAM Physical Exam Const Vital Signs: 12/31/22 06:02 12/31/22 06:02 Temperature 97.2 F L Temperature Source Temporal Pulse Rate 71 Respiratory Rate 15 Respiratory Effort Normal Respiratory Depth Normal Respiratory Pattern Normal Blood Pressure 109/64 Blood Pressure Mean 79 Pulse Ox 98 Oxygen Delivery Method Room Air Room Air Positive well nourished and well developed General Appearance ED: well developed and NAD HEENT Reports normocephalic and TM's normal bilaterally HEENT Narrative: No signs of HEENT trauma atraumatic Eyes PERRL and EOMs intact bilaterally Neck Neck Narrative: Very kyphotic. Nontender. No evidence of trauma or step-off. Chest Wall inspection of chest normal and palpation of chest normal Resp normal respiratory effort, no retractions and clear to auscultation bilaterally Cardio regular rate and regular rhythm Rate: Negative for tachycardic GI non-tender and non-distended Inspection: Negative for abdominal distention Auscultation: normoactive bowel sounds Back/Spine no CVA tenderness Thoracic Spine / Upper Back: Negative for ROM limited or pain with ROM Lumbar Spine / Lower Back: lumbar spinal tenderness L4 and L5 Extremity Extremity Narrative: Full passive range of motion throughout all joints without any apparent discomfort or deformity. No bony extremity tenderness. Edematous both lower extremities with compression stockings in place and symmetric. Neuro CN's II-XII intact bilaterally, moves all extremities, no focal motor deficits and no sensory deficits noted Skin Skin Narrative: No signs of trauma. MDM MDM MDM Narrative Medical decision making narrative: Head CT was obtained, the images appear unremarkable on my interpretation, the radiologist agrees that it is negative for any acute traumatic intracranial injury, and I agree with their interpretation. Three-view x-ray series of the lumbosacral spine are negative on my interpretation and radiology is in agreement that there are no acute fractures or dislocations. Radiography Diagnostic Testing: Clinical Impression(s) from Imaging Studies Lumbar Spine X-Ray 12/31/22 06:05 IMPRESSION: Lumbar spondylosis and stable scoliosis with chronic L1 vertebral compression fracture. Electronically Signed: Eddie Nam MD at 7:03 EDT , Discharge Plan Triage Chief Complaint: Fall ED Provider: Hilario Plummer Dx/Rx/DC Orders Clinical Impression: Closed head injury without loss of consciousness, Acute lumbosacral myofascial strain, Fall from slipping Instructions: ED Head Injury (Adult) Prescriptions: No Action ascorbic acid (vitamin C) 500 mg capsule 500 mg PO DAILY@1200 pantoprazole 40 mg tablet,delayed release (DR/EC) 40 mg PO DAILY vitamin E 200 unit capsule 400 unit PO QODAY ferrous gluconate [Ferate] 240 mg (27 mg iron) tablet 27 mg PO DAILY@1200 sucralfate 1 gram tablet 1 g PO TIDCM bethanechol chloride 25 mg tablet 25 mg PO TID montelukast 10 mg tablet 10 mg PO QHS levetiracetam 250 mg tablet 1,500 mg PO BID loratadine 10 mg capsule 10 mg PO QHS bismuth subsalicylate [[place] Bismuth] 262 mg/15 mL suspension 524 mg PO Q30-60M PRN (Reason: N/V) Rx Instructions: do not exceed 8 doses in a 24 hour period loperamide 2 mg tablet 2 mg PO Q6H PRN (Reason: Diarrhea) polyethylene glycol 3350 [Miralax] 17 gram/dose powder 17 g PO DAILY PRN (Reason: Constipation) lactase 3,000 unit tablet 3,000 unit PO ONCE Rx Instructions: administer with meals and/or snacks senna 8.6 mg capsule 8.6 mg PO DAILY PRN (Reason: Constipation) atorvastatin 40 MG tablet 40 mg PO QHS alendronate 70 MG tablet 70 mg PO LEON clopidogrel 75 MG tablet 75 mg PO DAILY allopurinol 100 MG tablet 100 mg PO QHS levothyroxine 50 MCG tablet 75 mcg PO DAILY finasteride 5 MG tablet 5 mg PO DAILY spironolactone 25 mg tablet 25 mg PO .25 MG QOD, 50MG QOD Rx Instructions: 25mg qod, 50mg qod olanzapine 5 mg tablet,disintegrating 10 mg PO QHS bumetanide 2 MG tablet 2 mg PO DAILY acetaminophen 650 MG tablet extended release 1,300 mg PO BID alfuzosin 10 MG tablet extended release 24 hr 10 mg PO QHS ropinirole 1 MG tablet 1 mg PO TID potassium chloride 20 MEQ tablet,ER particles/crystals 20 meq PO BID magnesium oxide 400 MG tablet 400 mg PO QHS cholecalciferol (vitamin D3) 2,000 UNIT capsule 2,000 unit PO QHS venlafaxine 150 mg capsule,extended release 24hr 150 mg PO DAILY valproic acid (as sodium salt) 250 mg/5 mL Solution 1,000 mg PO TID L-Lysine 500 mg Capsule 500 mg PO DAILY PRN (Reason: Cold Sores) albuterol sulfate 0.63 mg/3 mL Solution For Nebulization 0.63 mg INHALATION Q4H PRN (Reason: SOB) ibuprofen 600 mg Tablet 600 mg PO Q6H PRN (Reason: Pain) guaifenesin [Mucinex] 600 mg Tablet Extended Release 12hr 600 mg PO BID PRN (Reason: Congestion) Primary Care Provider: Maddie Bran Referrals: Maddie Bran, DO [Primary Care Provider] - As Needed Activity Restrictions/Additional Instructions: Imaging of brain/head and low back and negative for nothing acute, old L1 compression fracture noted and stable. Disposition Disposition: Assisted Living
[2022-12-31 07:42] VITALS: BP 139/72; PULSE 69; RESP 15; O2SAT 98
== END 2022-12-31 07:50 | disposition home or self-care (01) ==
PROVIDERS: Emergency Provider Emergency Medicine; PCP Internal Medicine; Visit Provider Emergency Medicine
DX: S09.90XA Unspecified injury of head, initial encounter (principal); E78.00 Pure hypercholesterolemia, unspecified; I10 Essential (primary) hypertension; S39.012A Strain of muscle, fascia and tendon of lower back, initial encounter; Y92.099 Unspecified place in other non-institutional residence as the place of occurrence of the external cause; W01.0XXA Fall on same level from slipping, tripping and stumbling without subsequent striking against object, initial encounter
CPT/HCPCS: 70450; 72100; 99282

== ENCOUNTER 2023-01-04 09:01 | Inpatient (IN) | payer MEDICARE, MEDICAID, SELFPAY ==
[2023-01-04] VITALS (10 sets, daily range): BP systolic 90–112; BP diastolic 54–78; PULSE 60–93; RESP 12–18; TEMP 36.3–36.7; O2SAT 95–97; BMI 34.2; BMI 37.7
--- NOTE | 2023-01-04 09:24 | CT_ITS ---
STUDY: CT HEAD STROKE PROTOCOL W/O CONTRAST INJECTION REASON FOR EXAM: Male, 72 years old. Vertigo RADIATION DOSAGE (If Supplied By Facility): CTDIvol = ( 29.71 ) mGy, DLP = ( 638.07 ) mGycm TECHNIQUE: Transaxial CT imaging of the brain was performed without administration of intravenous contrast material. Individualized dose optimization techniques were used for this CT. COMPARISON: Comparison is made with prior study dated December 31, 2022. FINDINGS: Normal soft tissue structures. Normal calvarium. There is disproportionate enlargement of the lateral and third ventricles, as compared to the extra-axial spaces. The findings suggest normal pressure hydrocephalus (NPH). There are areas of decreased attenuation within the white matter tracts of the supratentorial brain, consistent with microvascular disease changes. Normal basal ganglia and thalami. Normal brainstem. Normal cerebellum. There is no intracranial hemorrhage. There are no findings of an acute ischemic infarction. Normal visualized paranasal sinuses. 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 N.B. : The above Results were Read Back by Pieter Lynn MD to Dr Kavitha MD, and understanding confirmed on 01/04/2023 10:29:37 (ET). Electronically Signed: Pieter Lynn MD at 10:31 EDT ,
--- NOTE | 2023-01-04 09:24 | EKG12_ITS ---
Test Reason : WEAKNESS Blood Pressure : / mmHG Vent. Rate : 093 BPM Atrial Rate : 093 BPM P-R Int : 128 ms QRS Dur : 078 ms QT Int : 364 ms P-R-T Axes : 036 -42 028 degrees QTc Int : 452 ms Sinus rhythm with Premature atrial complexes with Aberrant conduction Left axis deviation Cannot rule out Anterior infarct , age undetermined Abnormal ECG Confirmed by CAROLYN MUNOZ, GISSELL ([id number]), senior technical editor ALTHEA DOUGLAS ([id number]) on 01/06/2023 9:46:18 AM Referred By: Confirmed By:RENEE LEON MD
--- NOTE | 2023-01-04 09:24 | RAD_ITS ---
STUDY: X-RAY CHEST REASON FOR EXAM: Male, 72 years old. Weakness. Unsteady gait. TECHNIQUE: Single AP portable view of the chest. COMPARISON: Comparison is made with prior chest radiograph dated August 30, 2019. FINDINGS: EKG electrodes are seen. The lungs are clear and expanded. There is no demonstrated pleural abnormality. There is mild cardiac enlargement. Normal mediastinum and crissy. Normal visualized pulmonary arteries. There is atherosclerotic calcification of the aortic arch with tortuosity. There are diffuse degenerative changes of the visualized thoracic spine. Mild levoconvex scoliosis. Normal visualized ribs, clavicles, and shoulders. There is no demonstrated abnormality of the visualized soft tissue structures of the upper abdomen. RAD/Chest 1 View IMPRESSION: No acute abnormality is seen. Electronically Signed: Pieter Lynn MD at 10:36 EDT ,
--- NOTE | 2023-01-04 09:26 | EX.ED.DYSGE1 ---
HPI History of Present Illness Chief Complaint: Weakness Informant: patient and SNF (Assisted living) Narrative Narrative: Patient sent from [facility], staff said that he has had at least several days of generalized weakness, unsteady on his feet, since he was seen here 5 days ago due to a fall. He has had no other falls since then. Patient has no complaints other than feeling a little dizzy. He denies any nausea, vomiting, headache, earache or tinnitus. He denies any lateralizing neurologic symptoms right now. He is a poor historian but he can answer ROS questions. He says his head is not hurting and his back is not hurting anymore from his prior fall. [facility] Medical History Anxiety Benign essential HTN BPH (benign prostatic hyperplasia) BPH (benign prostatic hyperplasia) Cancer Cardiology follow-up encounter Depression Easy bruising Epilepsy Gastric reflux Gout History of colon cancer History of echocardiogram History of edema History of seizure History of stress test Hyperlipemia Hypothyroid Leg cramps Loose, teeth Non-smoker Pure hypercholesterolemia Restless legs Schizophrenia Seizure disorder Shortness of breath on exertion Sleep apnea Walker as ambulation aid Wears glasses Home Medications alendronate 70 mg tablet 70 mg PO LEON OSTEOPOROSIS 12/07/16 [History Last Taken 01/03/23] allopurinol 100 mg tablet 100 mg PO QHS GOUT 12/07/16 [History Last Taken 01/03/23] atorvastatin 40 mg tablet 40 mg PO QHS CHOLESTEROL 12/07/16 [History Last Taken 01/03/23] clopidogrel 75 mg tablet 75 mg PO DAILY ANTIPLATELET 12/07/16 [History Last Taken 01/04/23] finasteride 5 mg tablet 5 mg PO DAILY PROSTATE 12/07/16 [History Last Taken 01/04/23] levothyroxine 50 mcg tablet 75 mcg PO DAILY THYROID 12/07/16 [History Last Taken 01/04/23] ascorbic acid (vitamin C) 500 mg capsule 500 mg PO DAILY@1200 SUPPLEMENT 03/17/19 [History Last Taken 01/04/23] bethanechol chloride 25 mg tablet 25 mg PO TID BLADDER 03/17/19 [History Last Taken 01/04/23] montelukast 10 mg tablet 10 mg PO QHS ALLERGIES 03/17/19 [History Last Taken 01/03/23] pantoprazole 40 mg tablet,delayed release 40 mg PO DAILY ACID REFLUX 03/17/19 [History Last Taken 01/04/23] cholecalciferol (vitamin D3) 50 mcg (2,000 unit) capsule 2,000 unit PO QHS SUPPLEMENT 07/11/19 [History Last Taken 01/03/23] magnesium oxide 400 mg (241.3 mg magnesium) tablet 400 mg PO QHS SUPPLEMENT 07/11/19 [History Last Taken 01/03/23] potassium chloride 20 mEq tablet,extended release(part/cryst) 20 meq PO BID SUPPLEMENT 07/11/19 [History Last Taken 01/04/23] ropinirole 1 mg tablet 1 mg PO TID SEIZURES 07/11/19 [History Last Taken 01/04/23] bismuth subsalicylate 262 mg/15 mL oral suspension (Donahue Bismuth) 524 mg PO Q30-60M PRN N/V 07/15/20 [History Last Taken Unknown] loratadine 10 mg capsule 10 mg PO QHS 07/15/20 [History Last Taken 01/03/23] olanzapine 5 mg disintegrating tablet 10 mg PO QHS DEPRESSION 07/15/20 [History Last Taken 01/03/23] polyethylene glycol 3350 17 gram/dose oral powder (Miralax) 17 g PO DAILY PRN Constipation 07/15/20 [History Last Taken Unknown] sennosides 8.6 mg capsule (senna) 8.6 mg PO DAILY PRN Constipation 07/15/20 [History Last Taken Unknown] spironolactone 25 mg tablet 25 mg PO .25 MG QOD, 50MG QOD DIURETIC 07/15/20 [History Last Taken 01/04/23] venlafaxine 150 mg capsule,extended release 24 hr 150 mg PO DAILY DEPRESSION 07/15/20 [History Last Taken 01/04/23] albuterol sulfate 0.63 mg/3 mL solution for nebulization 0.63 mg inhalation Q4H PRN SOB 07/01/22 [History Last Taken Unknown] guaifenesin 600 mg tablet, extended release 12 hr (Mucinex) 600 mg PO BID PRN Congestion 07/01/22 [History Last Taken Unknown] ibuprofen 600 mg tablet 600 mg PO Q6H PRN Pain 07/01/22 [History Last Taken Unknown] valproic acid (as sodium salt) 250 mg/5 mL oral solution 1,000 mg PO TID 07/01/22 [History Last Taken 01/04/23] bumetanide 1 mg tablet 2.5 mg PO DAILY DIURETIC 01/04/23 [History Last Taken 01/04/23] cephalexin 500 mg tablet 500 mg PO BID . 01/04/23 [History Last Taken 01/04/23] famotidine 20 mg tablet 20 mg PO BID GERD 01/04/23 [History Last Taken 01/04/23] ferrous sulfate 325 mg (65 mg iron) tablet 325 mg PO DAILY SUPPLEMENT 01/04/23 [History Last Taken 01/04/23] levetiracetam 750 mg tablet 1,500 mg PO BID . 01/04/23 [History Last Taken 01/04/23] tamsulosin 0.4 mg capsule 0.4 mg PO DAILY PROSTATE 01/04/23 [History Last Taken 01/04/23] vitamins A,C,O-sizh-huszfe 2,148 mcg-113 mg-45 mg-17.4 mg tablet (Eye Multivitamin) 1 tab PO DAILY SUPPLEMENT 01/04/23 [History Last Taken 01/04/23] Allergy/AdvReac Type Severity Reaction Status Date / Time aspirin Allergy cant Verified 12/31/22 06:17 remember rxn nickel Allergy Other Verified 12/31/22 06:17 oxcarbazepine Allergy cant Verified 12/31/22 06:17 [From Trileptal] remember rxn Family History Mother COPD (chronic obstructive pulmonary disease) CAD (coronary artery disease) Father Cancer lung Heart disease Myocardial infarction CAD (coronary artery disease) Aunt CAD (coronary artery disease) Myocardial infarction Surgical History History of cataract extraction History of cholecystectomy History of right hip replacement Social History household members: none housing: assisted living facility Smoking Status: Never smoker alcohol intake: never substance use type: does not use caffeine: Yes Type: carbonated beverages Number of servings: 3 ROS ROS ED Constitutional Constitutional ED: Denies chills or fever(s) Eyes Eyes: Denies change in vision or diplopia ENT ENT ED: Reports dizziness; Denies ear pain, hearing loss, rhinorrhea, sore throat or tinnitus Cardiovascular Cardiovascular: Denies chest pain or palpitations Respiratory/Chest Respiratory/Chest: Denies cough or dyspnea Gastrointestinal Gastrointestinal: Denies abdominal pain, diarrhea, nausea or vomiting Genitourinary Genitourinary ED: Denies dysuria or hematuria Musculoskeletal Musculoskeletal: Denies back pain or neck pain Integumentary Denies abscess or rash Neurologic Neurologic: Denies headache(s), paresthesias or weakness Psychiatric Psychiatric: Denies anxiety or suicidal thoughts EXAM Physical Exam Const Vital Signs: 01/04/23 09:03 01/04/23 09:07 01/04/23 09:43 Temperature 97.8 F Temperature Source Temporal Pulse Rate 93 Respiratory Rate 14 Respiratory Effort Normal Non-Labored Blood Pressure 112/66 Blood Pressure Mean 81 Pulse Ox 97 96 Oxygen Delivery Method Room Air Room Air 01/04/23 09:23 01/04/23 12:23 01/04/23 14:00 Temperature Temperature Source Pulse Rate 86 85 79 Respiratory Rate 16 17 12 Respiratory Effort Blood Pressure 106/71 111/74 90/67 Blood Pressure Mean 82 86 74 Pulse Ox 96 96 96 Oxygen Delivery Method Room Air Room Air Room Air 01/04/23 17:35 01/04/23 17:48 Temperature 97.8 F Temperature Source Temporal Pulse Rate 89 Respiratory Rate 14 Respiratory Effort Blood Pressure 108/54 L 108/54 L Blood Pressure Mean 72 72 Pulse Ox 96 Oxygen Delivery Method Room Air Positive well nourished and well developed General Appearance ED: well developed and NAD HEENT Reports TM's clear and moist mucous membranes normocephalic and atraumatic Tympanic Membrane ED: Yes TM's clear Eyes PERRL and EOMs intact bilaterally Neck full ROM, no lymphadenopathy and supple Neck Narrative: very kyphotic Chest Wall inspection of chest normal and palpation of chest normal Resp normal respiratory effort and clear to auscultation bilaterally Cardio regular rate, regular rhythm and no murmurs GI non-tender and non-distended Auscultation: normoactive bowel sounds Palpation: soft Back/Spine no CVA tenderness General Back: other FROM Extremity normal to inspection General Extremety ED: Yes edema; Negative for pulses abnormal or tenderness General Extremity: edema bilateral lower extremity Details: moderate; Negative for pulses abnormal Neuro CN's II-XII intact bilaterally and no sensory deficits noted Neuro Narrative: Initially gets the month wrong but redirectable, he was 1 month off and this is January 04, he said it was December. Otherwise oriented. Normal speech. Normal [id number] bilaterally, but limited ability to perform [id number] due to bilateral lower extremity edema and symmetric weakness. Sensorium / Orientation: awake and alert Motor Exam: general weakness Psych mental status grossly normal Skin no rashes or lesions noted and no wounds NIHSS NIHSS Initial: 1a Level of Consciousness: 0 1b LOC Questions (Score 2 if aphasic/stupor): 1 1c LOC Commands (Only score 1st attempt): 0 2 Best Gaze (If aphasic, use reflexive mvmts.): 0 3 Visual: 0 4 Facial Palsy: 0 5 Motor Arm Right (UN = amputation/fusion): 0 5 Motor Arm Left: 0 6 Motor Leg Right: 1 6 Motor Leg Left: 1 7 Limb ataxia (Only + if out of proportion): 0 8 Sensory (Aphasia/stupor=0 or 1, coma=2): 0 9 Best Language: 0 10 Dysarthria (mute, coma=2, intubated=UN): 0 11 Extinction and Inattention (only scored if +): 0 Total Score: 3 MDM MDM MDM Narrative Medical decision making narrative: I did an NIH but it is 3, for nonspecific reasons. He is not hypertensive, and he is not lateralizing, posterior circulation processes were considered, his [id number] and [id number] are normal and symmetric. I did a repeat CT scan, we did 1 5 days ago when he fell, it was read as some atrophy but nothing acute, radiologist called me, I discussed with him, he says the CT is consistent with NPH, but he does not think it looks any different than the prior CT. If the patient is truly ataxic, and this is new, is the NPH could be new, and therefore I am consulting teleneurology for recommendations regarding this. In the meantime, the only abnormality I find otherwise is hypokalemia and I will start replacing that with an IV potassium chloride rider. Neurology states that it is possible that he has developed normal pressure hydrocephalus, however he would need an in-person neurologic evaluation if further work-up is desired, possibly including a large-volume LP. He states he has chronic issues ambulating and walks with a walker, making it more complicated. He advised adding other labs on which I have done, in addition to getting an MRI which does not have to be done emergently. Since we do not have in-person neurology at this hospital, I think he will require transfer. I discussed this with the patient, and he is amenable to this. He is not in senior care, so I do think transferring him is appropriate, since he would be discharged back to assisted living where he does not have as good of supervision. Patient seems to be of sound mind right now and have the capacity to make this decision. The patient does confirm that he has been having trouble walking due to being off balance as a new issue compared to usual, and denies having any headaches with it. Adding the additional labs that neurology recommended, they are normal except his valproic acid level is 126 which is high, this may be related to his symptoms. I spoke with both of the patient's sisters that are in his list of contacts, and discussed the plan that I discussed with the patient. Both are comfortable with this and in agreement. Everyone including the patient and his family want him to try to stay closer to home. Therefore, they were in agreement with trying [facility]. I was able to get the patient on a waiting list at [place], and Dr. Rosenthal excepts the patient to [facility], however they do not have any beds today and will not have any today at [facility]. Therefore, asking the hospitalist to admit the patient temporarily until he is excepted at another facility. History & Record Review Discussion w/independent historian: Patient Additional record(s) reviewed:: Other (Assisted living paperwork and medications that were sent) Lab Data Attestation: I reviewed the patient's lab results. Labs: Laboratory Results - last 24 hr 01/04/23 01/04/23 01/04/23 09:43 09:43 09:43 WBC Cancelled Corrected WBC Cancelled RBC Cancelled Hgb Cancelled Hct Cancelled MCV Cancelled MCH Cancelled MCHC Cancelled RDW Std Deviation Cancelled RDW Coeff of Ronna Cancelled Plt Count Cancelled MPV Cancelled Immature Gran % (Auto) Cancelled Neut % (Auto) Cancelled Lymph % (Auto) Cancelled Sherman % (Auto) Cancelled Eos % (Auto) Cancelled Baso % (Auto) Cancelled Absolute Neuts (auto) Cancelled Absolute Lymphs (auto) Cancelled Total Counted Cancelled Neutrophils % (Manual) Cancelled Band Neutrophils % Cancelled Lymphocytes % (Manual) Cancelled Monocytes % (Manual) Cancelled Eosinophils % (Manual) Cancelled Basophils % (Manual) Cancelled Metamyelocytes % Cancelled Myelocytes % Cancelled Promyelocytes % Cancelled Blast Cells % Cancelled Plasma Cell % (Manual) Cancelled Other Cells % Cancelled Nucleated RBC % Cancelled Nucleated RBCs/100 WBC Cancelled Differential Comment Cancelled Diff Path Review Cancelled Hypersegmented Neuts Cancelled Atypical Lymphocytes Cancelled Reactive Lymphocytes Cancelled Smudge Cells Cancelled Toxic Granulation Cancelled Toxic Vacuolation Cancelled Dohle Bodies Cancelled Ginger Rods Cancelled Platelet Estimate Cancelled Plt Morphology Comment Cancelled RBC Morphology Cancelled Polychromasia Cancelled Hypochromasia Cancelled Poikilocytosis Cancelled Basophilic Stippling Cancelled Anisocytosis Cancelled Microcytosis Cancelled Macrocytosis Cancelled Spherocytes Cancelled Sickle Cells Cancelled Target Cells Cancelled Tear Drop Cells Cancelled Ovalocytes Cancelled Stomatocytes Cancelled [place] Bodies Cancelled [place] Cells Cancelled Bite Cells Cancelled Crenated Cell Cancelled Acanthocytes (Spur) Cancelled Rouleaux Cancelled Schistocytes Cancelled PT Cancelled INR Cancelled APTT Cancelled Sodium Cancelled Potassium Cancelled Chloride Cancelled Carbon Dioxide Cancelled Anion Gap Cancelled BUN Cancelled Creatinine Cancelled Estim Creat Clear Calc Cancelled Est GFR (MDRD) Af Amer Cancelled Est GFR (MDRD) Non-Af Cancelled BUN/Creatinine Ratio Cancelled Glucose Cancelled Calcium Cancelled Total Creatine Kinase Troponin I High Sens Cancelled Vitamin B12 Folate TSH Urine Color Urine Clarity Urine pH Ur Specific [employer] Urine Protein Urine Glucose (UA) Urine Ketones Urine Occult Blood Urine Nitrite Urine Bilirubin Urine Urobilinogen Ur Leukocyte Esterase Urine RBC Urine WBC Ur Squamous Epith Cells Urine Bacteria Urine Mucus Valproic Acid 01/04/23 01/04/23 01/04/23 10:40 10:40 10:40 WBC 5.8 Corrected WBC RBC 3.93 L Hgb 13.0 Hct 39.7 L MCV 101.0 H MCH 33.1 H MCHC 32.7 RDW Std Deviation 48.0 H RDW Coeff of Ronna 12.8 Plt Count 106 L MPV 9.2 Immature Gran % (Auto) 0.700 Neut % (Auto) 59.3 Lymph % (Auto) 24.7 Sherman % (Auto) 13.9 H Eos % (Auto) 0.7 Baso % (Auto) 0.7 Absolute Neuts (auto) 3.4 Absolute Lymphs (auto) 1.42 Total Counted Neutrophils % (Manual) Band Neutrophils % Lymphocytes % (Manual) Monocytes % (Manual) Eosinophils % (Manual) Basophils % (Manual) Metamyelocytes % Myelocytes % Promyelocytes % Blast Cells % Plasma Cell % (Manual) Other Cells % Nucleated RBC % 0 Nucleated RBCs/100 WBC Differential Comment Diff Path Review Hypersegmented Neuts Atypical Lymphocytes Reactive Lymphocytes Smudge Cells Toxic Granulation Toxic Vacuolation Dohle Bodies Ginger Rods Platelet Estimate Plt Morphology Comment RBC Morphology Polychromasia Hypochromasia Poikilocytosis Basophilic Stippling Anisocytosis Microcytosis Macrocytosis Spherocytes Sickle Cells Target Cells Tear Drop Cells Ovalocytes Stomatocytes [place] Bodies [place] Cells Bite Cells Crenated Cell Acanthocytes (Spur) Rouleaux Schistocytes PT 12.9 INR 1.0 APTT 24.4 Sodium 141 Potassium 3.3 L Chloride 104 Carbon Dioxide 30.0 Anion Gap 7 BUN 12 Creatinine 0.92 Estim Creat Clear Calc 57.55 Est GFR (MDRD) Af Amer 103 Est GFR (MDRD) Non-Af 85 BUN/Creatinine Ratio 13.0 Glucose 86 Calcium 9.2 Total Creatine Kinase Troponin I High Sens 6 Vitamin B12 Folate TSH Urine Color Urine Clarity Urine pH Ur Specific [employer] Urine Protein Urine Glucose (UA) Urine Ketones Urine Occult Blood Urine Nitrite Urine Bilirubin Urine Urobilinogen Ur Leukocyte Esterase Urine RBC Urine WBC Ur Squamous Epith Cells Urine Bacteria Urine Mucus Valproic Acid 01/04/23 01/04/23 01/04/23 10:45 12:13 13:15 WBC Corrected WBC RBC Hgb Hct MCV MCH MCHC RDW Std Deviation RDW Coeff of Ronna Plt Count MPV Immature Gran % (Auto) Neut % (Auto) Lymph % (Auto) Sherman % (Auto) Eos % (Auto) Baso % (Auto) Absolute Neuts (auto) Absolute Lymphs (auto) Total Counted Neutrophils % (Manual) Band Neutrophils % Lymphocytes % (Manual) Monocytes % (Manual) Eosinophils % (Manual) Basophils % (Manual) Metamyelocytes % Myelocytes % Promyelocytes % Blast Cells % Plasma Cell % (Manual) Other Cells % Nucleated RBC % Nucleated RBCs/100 WBC Differential Comment Diff Path Review Hypersegmented Neuts Atypical Lymphocytes Reactive Lymphocytes Smudge Cells Toxic Granulation Toxic Vacuolation Dohle Bodies Ginger Rods Platelet Estimate Plt Morphology Comment RBC Morphology Polychromasia Hypochromasia Poikilocytosis Basophilic Stippling Anisocytosis Microcytosis Macrocytosis Spherocytes Sickle Cells Target Cells Tear Drop Cells Ovalocytes Stomatocytes [employer] Bodies [place] Cells Bite Cells Crenated Cell Acanthocytes (Spur) Rouleaux Schistocytes PT INR APTT Sodium Potassium Chloride Carbon Dioxide Anion Gap BUN Creatinine Estim Creat Clear Calc Est GFR (MDRD) Af Amer Est GFR (MDRD) Non-Af BUN/Creatinine Ratio Glucose Calcium Total Creatine Kinase 50 Troponin I High Sens Vitamin B12 Folate TSH 3.10 Urine Color Yellow Urine Clarity Clear Urine pH 8.0 Ur Specific [employer] 1.010 Urine Protein Negative Urine Glucose (UA) Normal Urine Ketones 5 H Urine Occult Blood Negative Urine Nitrite Negative Urine Bilirubin Negative Urine Urobilinogen Normal Ur Leukocyte Esterase Negative Urine RBC 0 SEEN Urine WBC 0 SEEN Ur Squamous Epith Cells 0 SEEN Urine Bacteria 0 SEEN Urine Mucus 0 SEEN Valproic Acid 01/04/23 01/04/23 01/04/23 13:15 13:15 13:15 WBC Corrected WBC RBC Hgb Hct MCV MCH MCHC RDW Std Deviation RDW Coeff of Ronna Plt Count MPV Immature Gran % (Auto) Neut % (Auto) Lymph % (Auto) Sherman % (Auto) Eos % (Auto) Baso % (Auto) Absolute Neuts (auto) Absolute Lymphs (auto) Total Counted Neutrophils % (Manual) Band Neutrophils % Lymphocytes % (Manual) Monocytes % (Manual) Eosinophils % (Manual) Basophils % (Manual) Metamyelocytes % Myelocytes % Promyelocytes % Blast Cells % Plasma Cell % (Manual) Other Cells % Nucleated RBC % Nucleated RBCs/100 WBC Differential Comment Diff Path Review Hypersegmented Neuts Atypical Lymphocytes Reactive Lymphocytes Smudge Cells Toxic Granulation Toxic Vacuolation Dohle Bodies Ginger Rods Platelet Estimate Plt Morphology Comment RBC Morphology Polychromasia Hypochromasia Poikilocytosis Basophilic Stippling Anisocytosis Microcytosis Macrocytosis Spherocytes Sickle Cells Target Cells Tear Drop Cells Ovalocytes Stomatocytes [employer] Bodies Mo Cells Bite Cells Crenated Cell Acanthocytes (Spur) Rouleaux Schistocytes PT INR APTT Sodium Potassium Chloride Carbon Dioxide Anion Gap BUN Creatinine Estim Creat Clear Calc Est GFR (MDRD) Af Amer Est GFR (MDRD) Non-Af BUN/Creatinine Ratio Glucose Calcium Total Creatine Kinase Troponin I High Sens Vitamin B12 504 Folate 9.80 TSH Urine Color Urine Clarity Urine pH Ur Specific [employer] Urine Protein Urine Glucose (UA) Urine Ketones Urine Occult Blood Urine Nitrite Urine Bilirubin Urine Urobilinogen Ur Leukocyte Esterase Urine RBC Urine WBC Ur Squamous Epith Cells Urine Bacteria Urine Mucus Valproic Acid 126 H Radiography Chest X-Ray - ED: 1 View, Read by ED Physician, No Acute Disease, Chronic Changes and No Infiltrates Diagnostic Testing: Clinical Impression(s) from Imaging Studies Brain CT 01/04/23 09:24 IMPRESSION: Findings suggestive of a normal pressure hydrocephalus. N.B. : The above Results were Read Back by Pieter Lynn MD to Dr Kavitha MD, and understanding confirmed on 01/04/2023 10:29:37 (ET). Electronically Signed: Pieter Lynn MD at 10:31 EDT , ADDENDUM: 01/04/23 1038 IMPRESSION: Findings suggestive of a normal pressure hydrocephalus. N.B. : The above Results were Read Back by Pieter Lynn MD to Dr Kavitha MD, and understanding confirmed on 01/04/2023 10:29:37 (ET). Electronically Signed: Pieter Lynn MD at 10:31 EDT , Chest X-Ray 01/04/23 09:24 IMPRESSION: No acute abnormality is seen. Electronically Signed: Pieter Lynn MD at 10:36 EDT , Rhythm Strip Rhythm Strip: Sinus Rhythm Rate: 90 Ectopy: PAC(s) EKG Initial EKG: Attestation: I personally reviewed and interpreted this EKG as follows: Interpretation: Sinus Rhythm, No Acute Injury Pattern and LAFB Comments: PAC Prior EKG tracings: available for review Prior: Unchanged Management Discussion w/another healthcare provider: Hospitalist, Driving School Instructor (Teleneurologist; transfer centers at [facility]) and Radiologist Discharge Plan Dx/Rx/DC Orders Clinical Impression: Ataxia, Hypokalemia, Serum sodium valproate above therapeutic range Disposition Disposition: Acute Care Hospital [facility]
[2023-01-04 10:46] LABS: Absolute Lymphocyte Count 1.42 X10^3/uL (0.83-4.51); Absolute Neutrophil Count 3.4 X10^3/uL (2.0-7.7); Basophil# 0.04 X10^3/uL; Basophil% 0.7 % (0-1); Eosinophil# 0.04 X10^3/uL; Eosinophils% 0.7 % (0-5); Hematocrit 39.7 % (40-54); Lymphocyte # 1.42 X10^3/ul (0.83-4.51); Lymphocyte % 24.7 % (19-41); Mean Corp Hgb Conc 32.7 g/dL (32-36); Mean Corpuscular Hgb 33.1 pg (27.0-32.0); Mean Platelet Vol. 9.2 fl (6.2-12.0); Monocyte% 13.9 % (0-10); NRBC Flagged by Analyzer 0 % (0-5); Neutrophil # 3.42 X10^3/uL (2.7-7.7); Neutrophil % 59.3 % (47-70); Platelet Count 106 K/mm3 (150-450); RBC Distribution Width CV 12.8 % (11.6-14.6); Red Blood Count 3.93 M/mm3 (4.6-6.2); White Blood Count 5.8 K/mm3 (4.4-11.0)
[2023-01-04 10:54] LABS: Partial Thromboplast Time 24.4 Seconds (24.1-36.2); Prothrombin Time (Protime)PT. 12.9 SECONDS (11.7-14.9)
--- NOTE | 2023-01-04 11:07 | TELEMED_ITS ---
[facility] has confirmed receipt of a request for visit. This document confirms receipt of the order initiating the consult. To find the results of the consultation, please view the patient's reports for the scanned Telemed Consult.
[2023-01-04 11:09] LABS: Anion Gap 7 (5-15); BUN 12 mg/dL (7-18); Calcium,Total 9.2 mg/dL (8.5-10.1); Chloride 104 mmol/L (98-107); Creatinine, Serum 0.92 mg/dL (0.70-1.30); EST Glomerular Filtration Rate 85 mL/min (>60); Est Glom Filt Rate - Afr Amer 103 mL/min (>60); Estimated Creatinine Clearance 57.55 ml/min; Glucose 86 mg/dL (74-106); Potassium 3.3 mmol/L (3.5-5.1); Sodium Level 141 mmol/L (136-145); Troponin-I HS 6 pg/mL (3.0-78.0)
[2023-01-04] MEDS: Potassium Chloride 10mEq/100mL 10 MEQ/100 ML IV.SOLN. 100 MEQ IV BOLUS (11:58)
[2023-01-04 12:17] LABS: Bacteria 0 SEEN /hpf (None Seen); Mucous, Urine 0 SEEN /hpf (<or=2+); Red Blood Cells-Urine 0 SEEN /hpf (0-5); Squamous Epithelial Cells - UA 0 SEEN /hpf (0-5); White Blood Cells 0 SEEN /hpf (0-5)
[2023-01-04 12:23] LABS: Color, Urine Yellow (Yellow); Glucose, Dipstick Normal (Normal); Ketone-Dipstick 5 mg/dl (Negative); Leukocyte Esterase-Dipstick Negative /ul (Negative); Nitrite-Dipstick Negative (Negative); Occult Blood-Urine Negative /ul (Negative); Protein-Dipstick Negative (Negative); Urine Bilirubin Dipstick Negative (Negative); Urine Clarity Clear (Clear); Urine Urobilinogen Normal (Normal)
--- NOTE | 2023-01-04 13:49 | NURSING ---
CALLED [facility], TALKED TO JUNIE. NO BEDS AT THIS TIME
--- NOTE | 2023-01-04 14:04 | ED.RN ---
Concha from [facility] called. Update given. She stated that she would reach out to his family and director of casework services.
[2023-01-04 14:15] LABS: Valproic Acid (Depakene) Level 126 ug/mL (50-100)
[2023-01-04 14:19] LABS: Vitamin B12 504 pg/mL (211-911)
[2023-01-04 14:24] LABS: CPK Total, Creatine Kinase 50 U/L (39-308)
--- NOTE | 2023-01-04 17:46 | HP.PCM_ITS ---
HPI - General General Date of Admission: 01/04/23 Date of Service: 01/04/23 Chief Complaint: Worsening Gait debility, falls. HPI Narrative CareThe patient is a 72 y/o M w/ PMHx: HTN, HLD, Obesity, Anxiety and Depression/Schizophrenia, BPH, Gout, GERD, Hx Colon CA, KYA, Hypothyroidism, RLS, Chronic BL LE Lymphedema, Chronic gait imbalance/debility residing at SNF x 9 years who presents to the [facility] ED on 01/04/23 with chronic gait debility as noted with usage of a walker for prolonged period of time however over the last week patient has felt more weak and unstable with several falls with also concurrently noted chronic urinary incontinence and memory issues unchanged however given ongoing issues prompted skilled facility to transition the patient to the ED for evaluation. Work-up in the ED included T97.8, heart rate 79, BP 108/54, respiratory rate 12, 96% on room air, CBC with WC 5.8, hemoglobin 13, MCV 101, platelet 106 without marked shift, unremarkable coags, BMP with potassium 3.3, total creatinine kinase 50, troponin 6, vitamin B12 504, folate 9.80, TSH 3.10, urinalysis unremarkable, valproic acid level mildly elevated 126 with upper level 100, chest x-ray with no acute cardiopulmonary finding, CT brain with findings notable for normal pressure hydrocephalus, EKG with SR without acute evidence of ischemia. [facility] teleneurology consultation was performed with recommendation for transfer to tertiary facility for neurological assessment with recommendation of MRI brain with and without contrast, MRI cervical spine with and without contrast, medical management of bilateral lower extremity lymphedema as well as therapy assessments. ED physician has had patient accepted at tertiary facility but reports there are currently no beds with requested admission to [facility] pending bed availability. Patient was formally accepted at [facility] by Dr. Stanley. Patient also of note is on [facility] waiting list with no accepting doctor per discussion with ED physician in case bed becomes available for quickly but will have to review case with physician at that time. [facility], LAT[facility] Medical History Anxiety Benign essential HTN BPH (benign prostatic hyperplasia) BPH (benign prostatic hyperplasia) Cancer Cardiology follow-up encounter Depression Easy bruising Epilepsy Gastric reflux Gout History of colon cancer History of echocardiogram History of edema History of seizure History of stress test Hyperlipemia Hypothyroid Leg cramps Loose, teeth Non-smoker Pure hypercholesterolemia Restless legs Schizophrenia Seizure disorder Shortness of breath on exertion Sleep apnea Walker as ambulation aid Wears glasses Home Medications alendronate 70 mg tablet 70 mg PO LEON OSTEOPOROSIS 12/07/16 [History Last Taken 01/03/23] allopurinol 100 mg tablet 100 mg PO QHS GOUT 12/07/16 [History Last Taken 01/03/23] atorvastatin 40 mg tablet 40 mg PO QHS CHOLESTEROL 12/07/16 [History Last Taken 01/03/23] clopidogrel 75 mg tablet 75 mg PO DAILY ANTIPLATELET 12/07/16 [History Last Taken 01/04/23] finasteride 5 mg tablet 5 mg PO DAILY PROSTATE 12/07/16 [History Last Taken 12/24] levothyroxine 50 mcg tablet 75 mcg PO DAILY THYROID 12/07/16 [History Last Taken 01/04/23] ascorbic acid (vitamin C) 500 mg capsule 500 mg PO DAILY@1200 SUPPLEMENT 03/17/19 [History Last Taken 01/04/23] bethanechol chloride 25 mg tablet 25 mg PO TID BLADDER 03/17/19 [History Last Taken 01/04/23] montelukast 10 mg tablet 10 mg PO QHS ALLERGIES 03/17/19 [History Last Taken 01/03/23] pantoprazole 40 mg tablet,delayed release 40 mg PO DAILY ACID REFLUX 03/17/19 [History Last Taken 01/04/23] cholecalciferol (vitamin D3) 50 mcg (2,000 unit) capsule 2,000 unit PO QHS SUPPLEMENT 07/11/19 [History Last Taken 01/03/23] magnesium oxide 400 mg (241.3 mg magnesium) tablet 400 mg PO QHS SUPPLEMENT 07/11/19 [History Last Taken 01/03/23] potassium chloride 20 mEq tablet,extended release(part/cryst) 20 meq PO BID SUPPLEMENT 07/11/19 [History Last Taken 01/04/23] ropinirole 1 mg tablet 1 mg PO TID SEIZURES 07/11/19 [History Last Taken 01/04/23] bismuth subsalicylate 262 mg/15 mL oral suspension ([place] Bismuth) 524 mg PO Q30- 60M PRN N/V 07/15/20 [History Last Taken Unknown] loratadine 10 mg capsule 10 mg PO QHS 07/15/20 [History Last Taken 01/03/23] olanzapine 5 mg disintegrating tablet 10 mg PO QHS DEPRESSION 07/15/20 [History Last Taken 01/03/23] polyethylene glycol 3350 17 gram/dose oral powder (Miralax) 17 g PO DAILY PRN Constipation 07/15/20 [History Last Taken Unknown] sennosides 8.6 mg capsule (senna) 8.6 mg PO DAILY PRN Constipation 07/15/20 [History Last Taken Unknown] spironolactone 25 mg tablet 25 mg PO .25 MG QOD, 50MG QOD DIURETIC 07/15/20 [History Last Taken 01/04/23] venlafaxine 150 mg capsule,extended release 24 hr 150 mg PO DAILY DEPRESSION 07/15/20 [History Last Taken 01/04/23] albuterol sulfate 0.63 mg/3 mL solution for nebulization 0.63 mg inhalation Q4H PRN SOB 07/01/22 [History Last Taken Unknown] guaifenesin 600 mg tablet, extended release 12 hr (Mucinex) 600 mg PO BID PRN Congestion 07/01/22 [History Last Taken Unknown] ibuprofen 600 mg tablet 600 mg PO Q6H PRN Pain 07/01/22 [History Last Taken Unknown] valproic acid (as sodium salt) 250 mg/5 mL oral solution 1,000 mg PO TID 07/01/22 [History Last Taken 01/04/23] bumetanide 1 mg tablet 2.5 mg PO DAILY DIURETIC 01/04/23 [History Last Taken 01/04/23] cephalexin 500 mg tablet 500 mg PO BID . 01/04/23 [History Last Taken 01/04/23] famotidine 20 mg tablet 20 mg PO BID GERD 01/04/23 [History Last Taken 01/04/23] ferrous sulfate 325 mg (65 mg iron) tablet 325 mg PO DAILY SUPPLEMENT 01/04/23 [History Last Taken 01/04/23] levetiracetam 750 mg tablet 1,500 mg PO BID . 01/04/23 [History Last Taken 01/04/23] tamsulosin 0.4 mg capsule 0.4 mg PO DAILY PROSTATE 01/04/23 [History Last Taken 01/04/23] vitamins A,C,B-ymqv-kneqwc 2,148 mcg-113 mg-45 mg-17.4 mg tablet (Eye Multivitamin) 1 tab PO DAILY SUPPLEMENT 01/04/23 [History Last Taken 01/04/23] Allergy/AdvReac Type Severity Reaction Status Date / Time aspirin Allergy cant Verified 12/31/22 06:17 remember rxn nickel Allergy Other Verified 12/31/22 06:17 oxcarbazepine Allergy cant Verified 12/31/22 06:17 [From Trileptal] remember rxn Family History Mother COPD (chronic obstructive pulmonary disease) CAD (coronary artery disease) Father Cancer lung Heart disease Myocardial infarction CAD (coronary artery disease) Aunt CAD (coronary artery disease) Myocardial infarction Surgical History History of cataract extraction History of cholecystectomy History of right hip replacement Social History household members: none housing: assisted living facility Smoking Status: Never smoker alcohol intake: never substance use type: does not use caffeine: Yes Type: carbonated beverages Number of servings: 3 ROS ROS Narrative Admission Review of Systems: CONSTITUTIONAL: No weight loss, fever, chills, + weakness or fatigue. HEENT: Eyes: No visual loss, blurred vision, double vision or yellow sclerae. Ears, Nose, Throat: No hearing loss, sneezing, congestion, runny nose or sore throat. SKIN: No rash or itching, lesions, wounds. CARDIOVASCULAR: No chest pain, chest pressure or chest discomfort, palpitations, edema, orthopnea, syncopal events. RESPIRATORY: No shortness of breath, cough or sputum, wheezing, hemoptysis. GASTROINTESTINAL: No anorexia, nausea, vomiting or diarrhea, abdominal pain, melena, BRBPR. GENITOURINARY: No dysuria, frequency, urgency or retention. NEUROLOGICAL: + Worsening gait debility, imbalance, frequent falls, seizure disorder, No headache, dizziness, syncope, paralysis, numbness or tingling in the extremities, focal weakness, change in bowel or bladder control. MUSCULOSKELETAL: + muscle, back pain, joint pain or stiffness. HEMATOLOGIC: + anemia, bleeding or bruising. LYMPHATICS: No enlarged nodes. No history of splenectomy. PSYCHIATRIC: + history of depression or anxiety. ENDOCRINOLOGIC: No reports of sweating, cold or heat intolerance. No polyuria or polydipsia. ALLERGIES: + history of rhinitis. Vital Signs Vital Signs Vital Signs: 01/04/23 09:03 01/04/23 09:07 01/04/23 09:43 Temperature 97.8 F Temperature Source Temporal Pulse Rate 93 Respiratory Rate 14 Respiratory Effort Normal Non-Labored Blood Pressure 112/66 Blood Pressure Mean 81 Pulse Ox 97 96 Oxygen Delivery Method Room Air Room Air 01/04/23 09:23 01/04/23 12:23 01/04/23 14:00 Temperature Temperature Source Pulse Rate 86 85 79 Respiratory Rate 16 17 12 Respiratory Effort Blood Pressure 106/71 111/74 90/67 Blood Pressure Mean 82 86 74 Pulse Ox 96 96 96 Oxygen Delivery Method Room Air Room Air Room Air 01/04/23 17:35 Temperature Temperature Source Pulse Rate Respiratory Rate Respiratory Effort Blood Pressure 108/54 L Blood Pressure Mean 72 Pulse Ox Oxygen Delivery Method Weight Weight: 193 lb 5.526 oz Body Mass Index (BMI) 34.2 Physical Exam Narrative Physical Examination: General: Awake, alert, oriented to self, place, month and year, remains cooperative, seated upright in the ED bed in no apparent distress. Skin: Normal color, normal turgor, no icterus, no cyanosis except occasional staged ecchymoses as well as a small healing laceration to the left anterior ankle. HEENT: AT/NC, EOMI, PERRLA, MMM, no carotid bruits or JVD noted; however thickened neck makes evaluation difficult. Lungs: Mildly diminished, greater bases, appropriate effort, no rales, ronchi or wheezing. Heart: Currently regular rate and rhythm; no gallop, rub audible. Abdomen: Soft, obese, NTTP, ND, normal BS, no HSM. Extremities: No cyanosis, no clubbing, significant pedal to knee lymphedema, not severely pitting, see skin. Neurological: Patient awake, alert, oriented as noted, cognitive function appears likely baseline intact; pupils equally reactive to light and accommodation, cranial nerves II-XII grossly normal, moving all 4 extremities, no specific focal deficits, strength moderately to severely global decreased. Psychiatric: Affect appears mildly fatigued, soft-spoken otherwise mildly flat affect, no acute evidence of depressive or anxiety feelings but does have underlying history as well as schizophrenia. Results Lab / Micro Data Result Diagrams: 01/04/23 10:40 01/04/23 10:40 Labs: Laboratory Results - last 24 hr 01/04/23 09:43: WBC Cancelled, Corrected WBC Cancelled, RBC Cancelled, Hgb Cancelled, Hct Cancelled, MCV Cancelled, MCH Cancelled, MCHC Cancelled, RDW Std Deviation Cancelled, RDW Coeff of Ronna Cancelled, Plt Count Cancelled, MPV Cancelled, Immature Gran % (Auto) Cancelled, Neut % (Auto) Cancelled, Lymph % (Auto) Cancelled, [place] % (Auto) Cancelled, Eos % (Auto) Cancelled, Baso % (Auto) Cancelled, Absolute Neuts (auto) Cancelled, Absolute Lymphs (auto) Cancelled, Total Counted Cancelled, Neutrophils % (Manual) Cancelled, Band Neutrophils % Cancelled, Lymphocytes % (Manual) Cancelled, Monocytes % (Manual) Cancelled, Eosinophils % (Manual) Cancelled, Basophils % (Manual) Cancelled, Metamyelocytes % Cancelled, Myelocytes % Cancelled, Promyelocytes % Cancelled, Blast Cells % Cancelled, Plasma Cell % (Manual) Cancelled, Other Cells % Cancelled, Nucleated RBC % Cancelled, Nucleated RBCs/100 WBC Cancelled, Differential Comment Cancelled, Diff Path Review Cancelled, Hypersegmented Neuts Cancelled, Atypical Lymphocytes Cancelled, Reactive Lymphocytes Cancelled, Smudge Cells Cancelled, Toxic Granulation Cancelled, Toxic Vacuolation Cancelled, Dohle Bodies Cancelled, Ginger Rods Cancelled, Platelet Estimate Cancelled, Plt Morphology Comment Cancelled, RBC Morphology Cancelled, Polychromasia Cancelled, Hypochromasia Cancelled, Poikilocytosis Cancelled, Basophilic Stippling Cancelled, Anisocytosis Cancelled, Microcytosis Cancelled, Macrocytosis Cancelled, Spherocytes Cancelled, Sickle Cells Cancelled, Target Cells Cancelled, Tear Drop Cells Cancelled, Ovalocytes Cancelled, Stomatocytes Canc elled, [place] Bodies Cancelled, Mo Cells Cancelled, Bite Cells Cancelled, Crenated Cell Cancelled, Acanthocytes (Spur) Cancelled, Rouleaux Cancelled, Schistocytes Cancelled 01/04/23 09:43: PT Cancelled, INR Cancelled, APTT Cancelled 01/04/23 09:43: Sodium Cancelled, Potassium Cancelled, Chloride Cancelled, Carbon Dioxide Cancelled, Anion Gap Cancelled, BUN Cancelled, Creatinine Cancelled, Estim Creat Clear Calc Cancelled, Est GFR (MDRD) Af Amer Cancelled, Est GFR (MDRD) Non-Af Cancelled, BUN/Creatinine Ratio Cancelled, Glucose Cancelled, Calcium Cancelled, Troponin I High Sens Cancelled 01/04/23 10:40: WBC 5.8, RBC 3.93 L, Hgb 13.0, Hct 39.7 L, MCV 101.0 H, MCH 33.1 H, MCHC 32.7, RDW Std Deviation 48.0 H, RDW Coeff of Ronna 12.8, Plt Count 106 L, MPV 9.2, Immature Gran % (Auto) 0.700, Neut % (Auto) 59.3, Lymph % (Auto) 24.7, [place] % (Auto) 13.9 H, Eos % (Auto) 0.7, Baso % (Auto) 0.7, Absolute Neuts (auto) 3.4, Absolute Lymphs (auto) 1.42, Nucleated RBC % 0 01/04/23 10:40: PT 12.9, INR 1.0, APTT 24.4 01/04/23 10:40: Sodium 141, Potassium 3.3 L, Chloride 104, Carbon Dioxide 30.0, Anion Gap 7, BUN 12, Creatinine 0.92, Estim Creat Clear Calc 57.55, Est GFR (MDRD) Af Amer 103, Est GFR (MDRD) Non-Af 85, BUN/Creatinine Ratio 13.0, Glucose 86, Calcium 9.2, Troponin I High Sens 6 01/04/23 10:45: Total Creatine Kinase 50 01/04/23 12:13: Urine Color Yellow, Urine Clarity Clear, Urine pH 8.0, Ur Specific [place] 1.010, Urine Protein Negative, Urine Glucose (UA) Normal, Urine Ketones 5 H, Urine Occult Blood Negative, Urine Nitrite Negative, Urine Bilirubin Negative, Urine Urobilinogen Normal, Ur Leukocyte Esterase Negative, Urine RBC 0 SEEN, Urine WBC 0 SEEN, Ur Squamous Epith Cells 0 SEEN, Urine Bacteria 0 SEEN, Urine Mucus 0 SEEN 01/04/23 13:15: TSH 3.10 01/04/23 13:15: Valproic Acid 126 H 04/03/23 13:15: Vitamin B12 504 01/04/23 13:15: Folate 9.80 Rhythm Strip Rhythm Strip: Sinus Rhythm Rate: 90 Ectopy: PAC(s) Radiology Impression Brain CT 01/04/23 09:24 IMPRESSION: Findings suggestive of a normal pressure hydrocephalus. N.B. : The above Results were Read Back by Pieter Lynn MD to Dr Kavitha MD, and understanding confirmed on 01/04/2023 10:29:37 (ET). Electronically Signed: Pieter Lynn MD at 10:31 EDT , ADDENDUM: 01/04/23 1038 IMPRESSION: Findings suggestive of a normal pressure hydrocephalus. N.B. : The above Results were Read Back by Pieter Lynn MD to Dr Kavitha MD, and understanding confirmed on 01/04/2023 10:29:37 (ET). Electronically Signed: Pieter Lynn MD at 10:31 EDT , Chest X-Ray 01/04/23 09:24 IMPRESSION: No acute abnormality is seen. Electronically Signed: Pieter Lynn MD at 10:36 EDT , Assessment & Plan Assessment/Plan (1) NPH (normal pressure hydrocephalus): PLAN: Plan CareThe patient is a 72 y/o M w/ PMHx: HTN, HLD, Obesity, Anxiety and Depres que/Schizophrenia, BPH, Gout, GERD, Hx Colon CA, KYA, Hypothyroidism, RLS, Chronic BL LE Lymphedema, Chronic gait imbalance/debility residing at [facility] x 9 years who presents to the [facility] ED on 01/04/23 with chronic gait debility as noted with usage of a walker for prolonged period of time however over the last week patient has felt more weak and unstable with several falls with also concurrently noted chronic urinary incontinence and memory issues unchanged however given ongoing issues prompted skilled facility to transition the patient to the ED for evaluation. #1. Increased Ataxia, Falls with CT evidence NPH: We will admit to PCU, maintain on fall precautions, will hold Depakote and repeat level in a.m. as noted, neurology requested work-up initiated per ED physician with normal total creatinine kinase, normal vitamin B12, normal folate level, normal TSH, will request MRI with and without of the brain as well as cervical spine per neurology recommendation with judicious hydration ongoing, will obtain every 4 hours neurochecks to be cautious although patient with primary issues with a mbulation attempts given instability, awaiting tertiary facility bed accepted as noted at [facility] but prolonged ED stay with likely no bed 01/04/2023. PT/OT/case management consulted. Temporarily holding patient Plavix which she is on because of an ASA unclear allergy in case of any surgical intervention needs at transition given NPH finding. #2. Mildly supratherapeutic valproic acid level: Admission valproic acid level mildly elevated 126, upper level 100, will hold Depakote and repeat level in a.m. as certainly could be contributing to his presentation but still cannot rule out the fact that NPH is primary etiology. We will continue patient other antiepileptic medications. #3. Hypokalemia: Admission K+ 3.3, magnesium level requested, supplementation given, repeat level in AM. #4. Hypertension: Continue home regimen including bumetanide, PRN hydralazine. #5. Seizure disorder: As noted holding Depakote level given mildly supratherapeutic level is could be related with acute presentation #1, we will continue patient other seizure medications including Keppra and Requip regimen. #6. Hypothyroidism: We will continue patient home levothyroxine regimen, TSH level is noted normal. #7. Anxiety and depression/schizophrenia: We will continue patient home venlafaxine as well as olanzapine regimen.. #8. BPH: We will continue patient home Flomax regimen. #9. Obesity: Weight loss and lifestyle changes encouraged. #10. Chronic anemia/iron deficiency anemia: Admission hemoglobin 13, has ranged from 12-15, last noted 08/11/2020 215.6, will continue iron supplementation and CBC trending. #11. History colon cancer: Unclear specific interventions, staging or treatments, considered in remission per his report. #12. Gout: We will continue patient home allopurinol regimen. #13. Chronic bilateral lower extremity lymphedema: We will continue bumetanide with snug Aamir wraps with lower extremity elevation. #14. GERD: We will continue patient on PPI. #15. KYA: CPAP nightly. #16. SCDs with avoidance of chemoprophylaxis given NPH findings until sure no intervention necessary. #17. CODE status: Patient JEFFREY is his sister and living will is currently in place. Discussed CODE status at length including difference between FULL code, DNR-CCA and DNR-CC status. Following discussions about the differences in these status, requested DNR-CCA, no intubation status. Advanced Care Planning Face to Face Time: 16 minutes. Admission Evaluation Time spent evaluating chart, patient history, patient evaluation, care planning and discussion with specialists: 75 minutes. Charges/Coding Visit Charges Inpatient E&M: 67193 Init Hosp L3 Procedures Hospitalists Procedures: 70440 Advncd Care Plan 30 Min
--- NOTE | 2023-01-04 17:59 | NURSING ---
PCU [facility], NPH
[2023-01-04 19:35] LABS: Magnesium 2.1 mg/dL (1.6-2.6)
[2023-01-04] MEDS: 0.9% Normal Saline 1,000 ML 100 ML IV (23:22)
[2023-01-04] MEDS: Menthol/Lanolin/Calamine/Znox 113 GM Tube 1 APPLIC TOPICAL (23:22)
[2023-01-04] MEDS: levETIRAcetam 750 MG Tablet 1500 MG PO (23:23)
[2023-01-04] MEDS: Atorvastatin Calcium 40 MG Tablet PO (23:23)
[2023-01-04] MEDS: Famotidine 20 MG Tablet PO (23:23)
[2023-01-04] MEDS: Montelukast 10 MG Tablet PO (23:23)
[2023-01-04] MEDS: OLANZapine 10 MG Tablet PO (23:23)
[2023-01-04] MEDS: Magnesium Chloride 64 MG Delay Rel.Tablet 128 MG PO (23:23)
[2023-01-04] MEDS: Pramipexole Di-HCl 0.5 MG Tablet PO (23:23)
[2023-01-04] MEDS: 0.9% Saline Lock 10 ML Syringe IV (23:24)
[2023-01-04] MEDS: Allopurinol 100 MG Tablet PO (23:24)
[2023-01-05 04:12] VITALS: BP 101/70; PULSE 70; RESP 15; TEMP 37; O2SAT 94
[2023-01-05 04:48] VITALS: BMI 37.7
--- NOTE | 2023-01-05 05:15 | NURSING ---
Pt refused meds this AM for this RN.
[2023-01-05 06:18] LABS: Absolute Lymphocyte Count 2.08 X10^3/uL (0.83-4.51); Absolute Neutrophil Count 2.6 X10^3/uL (2.0-7.7); Basophil# 0.03 X10^3/uL; Basophil% 0.5 % (0-1); Eosinophil# 0.09 X10^3/uL; Eosinophils% 1.6 % (0-5); Hematocrit 38.9 % (40-54); Hemoglobin 12.7 g/dL (13.0-16.5); Lymphocyte # 2.08 X10^3/ul (0.83-4.51); Lymphocyte % 35.9 % (19-41); Mean Corp Hgb Conc 32.6 g/dL (32-36); Mean Corpuscular Hgb 32.9 pg (27.0-32.0); Mean Corpuscular Volume 100.8 fL (80-94); Mean Platelet Vol. 9.1 fl (6.2-12.0); Monocyte# 0.99 X10^3/uL; Monocyte% 17.1 % (0-10); NRBC Flagged by Analyzer 0 % (0-5); Neutrophil # 2.58 X10^3/uL (2.7-7.7); Neutrophil % 44.4 % (47-70); Platelet Count 116 K/mm3 (150-450); RBC Distribution Width CV 13.2 % (11.6-14.6); RBC Distribution Width SD 48.8 fl (35.1-43.9); Red Blood Count 3.86 M/mm3 (4.6-6.2); White Blood Count 5.8 K/mm3 (4.4-11.0)
[2023-01-05 07:12] LABS: ALB/GLOB Ratio 0.8 RATIO (0.9-2.4); AST(SGOT) 15 U/L (15-37); Alanine Aminotransfer ALT/SGPT 8 U/L (16-61); Albumin, Serum 2.5 g/dL (3.2-5.0); Alkaline Phosphatase 48 U/L (45-117); Anion Gap 6 (5-15); BUN 13 mg/dL (7-18); BUN/Creat Ratio 18.8 RATIO (10-20); Calcium,Total 8.6 mg/dL (8.5-10.1); Chloride 106 mmol/L (98-107); Creatinine, Serum 0.69 mg/dL (0.70-1.30); EST Glomerular Filtration Rate 119 mL/min (>60); Est Glom Filt Rate - Afr Amer 144 mL/min (>60); Estimated Creatinine Clearance 52.95 ml/min; Glucose 101 mg/dL (74-106); Potassium 3.2 mmol/L (3.5-5.1); Protein, Total 5.5 g/dL (6.4-8.2); Sodium Level 142 mmol/L (136-145); Valproic Acid (Depakene) Level 57 ug/mL (50-100)
--- NOTE | 2023-01-05 07:42 | NURSING ---
Pt meds to be crushed last night, pt not able to swallow medications whole. First attempt whole meds with yogurt, second attempt meds had to crushed with yogurt.
--- NOTE | 2023-01-05 07:50 | PCM.PN.HOSP ---
Reason for Visit Reason for Visit: Diagnoses (Idiopathic) normal pressure hydrocephalus (01/04/23) Subjective Subjective Patient is a 72-year-old male with multiple comorbidities resident at an extended care facility brought in with increasing ataxia and falls. Admitted to a monitored bed for subsequent e Objective Data Objective Data Vital Signs: Vital Signs Temp Pulse Resp BP Pulse Ox O2 Del Method 98.6 F 70 15 101/70 94 Room Air 01/05/23 04:12 01/05/23 04:12 01/05/23 04:12 01/05/23 04:12 01/05/23 04:12 01/05/23 07:05 Oxygen Delivery Method Room Air Weight: 96.5 kg Body Mass Index (BMI) 37.7 Intake & Output: Intake and Output for Last 24 Hours 01/03/23 01/04/23 01/05/23 23:59 23:59 23:59 Intake Total 100 / 100 Output Total 350 / 350 100 / 100 Balance -250 / -250 -100 / -100 Lab / Micro Data Result Diagrams: 01/05/23 05:07 01/05/23 05:07 Labs: Laboratory Results - last 24 hr 01/04/23 09:43: WBC Cancelled, Corrected WBC Cancelled, RBC Cancelled, Hgb Cancelled, Hct Cancelled, MCV Cancelled, MCH Cancelled, MCHC Cancelled, RDW Std Deviation Cancelled, RDW Coeff of Ronna Cancelled, Plt Count Cancelled, MPV Cancelled, Immature Gran % (Auto) Cancelled, Neut % (Auto) Cancelled, Lymph % (Auto) Cancelled, Edwards % (Auto) Cancelled, Eos % (Auto) Cancelled, Baso % (Auto) Cancelled, Absolute Neuts (auto) Cancelled, Absolute Lymphs (auto) Cancelled, Total Counted Cancelled, Neutrophils % (Manual) Cancelled, Band Neutrophils % Cancelled, Lymphocytes % (Manual) Cancelled, Monocytes % (Manual) Cancelled, Eosinophils % (Manual) Cancelled, Basophils % (Manual) Cancelled, Metamyelocytes % Cancelled, Myelocytes % Cancelled, Promyelocytes % Cancelled, Blast Cells % Cancelled, Plasma Cell % (Manual) Cancelled, Other Cells % Cancelled, Nucleated RBC % Cancelled, Nucleated RBCs/100 WBC Cancelled, Differential Comment Cancelled, Diff Path Review Cancelled, Hypersegmented Neuts Cancelled, Atypical Lymphocytes Cancelled, Reactive Lymphocytes Cancelled, Smudge Cells Cancelled, Toxic Granulation Cancelled, Toxic Vacuolation Cancelled, Dohle Bodies Cancelled, Ginger Rods Cancelled, Platelet Estimate Cancelled, Plt Morphology Comment Cancelled, RBC Morphology Cancelled, Polychromasia Cancelled, Hypochromasia Cancelled, Poikilocytosis Cancelled, Basophilic Stippling Cancelled, Anisocytosis Cancelled, Microcytosis Cancelled, Macrocytosis Cancelled, Spherocytes Cancelled, Sickle Cells Cancelled, Target Cells Cancelled, Tear Drop Cells Cancelled, Ovalocytes Cancelled, Stomatocytes Cancelled, [place] Bodies Cancelled, Mo Cells Cancelled, Bite Cells Cancelled, Crenated Cell Cancelled, Acanthocytes (Spur) Cancelled, Rouleaux Cancelled, Schistocytes Cancelled 01/04/23 09:43: PT Cancelled, INR Cancelled, APTT Cancelled 01/04/23 09:43: Sodium Cancelled, Potassium Cancelled, Chloride Cancelled, Carbon Dioxide Cancelled, Anion Gap Cancelled, BUN Cancelled, Creatinine Cancelled, Estim Creat Clear Calc Cancelled, Est GFR (MDRD) Af Amer Cancelled, Est GFR (MDRD) Non-Af Cancelled, BUN/Creatinine Ratio Cancelled, Glucose Cancelled, Calcium Cancelled, Troponin I High Sens Cancelled 01/04/23 10:40: WBC 5.8, RBC 3.93 L, Hgb 13.0, Hct 39.7 L, MCV 101.0 H, MCH 33.1 H, MCHC 32.7, RDW Std Deviation 48.0 H, RDW Coeff of Ronna 12.8, Plt Count 106 L, MPV 9.2, Immature Gran % (Auto) 0.700, Neut % (Auto) 59.3, Lymph % (Auto) 24.7, Edwards % (Auto) 13.9 H, Eos % (Auto) 0.7, Baso % (Auto) 0.7, Absolute Neuts (auto) 3.4, Absolute Lymphs (auto) 1.42, Nucleated RBC % 0 01/04/23 10:40: PT 12.9, INR 1.0, APTT 24.4 01/04/23 10:40: Sodium 141, Potassium 3.3 L, Chloride 104, Carbon Dioxide 30.0, Anion Gap 7, BUN 12, Creatinine 0.92, Estim Creat Clear Calc 57.55, Est GFR (MDRD) Af Amer 103, Est GFR (MDRD) Non-Af 85, BUN/Creatinine Ratio 13.0, Glucose 86, Calcium 9.2, Troponin I High Sens 6 01/04/23 10:45: Total Creatine Kinase 50 01/04/23 12:13: Urine Color Yellow, Urine Clarity Clear, Urine pH 8.0, Ur Specific [place] 1.010, Urine Protein Negative, Urine Glucose (UA) Normal, Urine Ketones 5 H, Urine Occult Blood Negative, Urine Nitrite Negative, Urine Bilirubin Negative, Urine Urobilinogen Normal, Ur Leukocyte Esterase Negative, Urine RBC 0 SEEN, Urine WBC 0 SEEN, Ur Squamous Epith Cells 0 SEEN, Urine Bacteria 0 SEEN, Urine Mucus 0 SEEN 01/04/23 13:15: TSH 3.10 01/04/23 13:15: Valproic Acid 126 H 01/04/23 13:15: Vitamin B12 504 01/04/23 13:15: Folate 9.80 01/04/23 13:15: Magnesium 2.1 01/05/23 05:07: WBC 5.8, RBC 3.86 L, Hgb 12.7 L, Hct 38.9 L, MCV 100.8 H, MCH 32.9 H, MCHC 32.6, RDW Std Deviation 48.8 H, RDW Coeff of Ronna 13.2, Plt Count 116 L, MPV 9.1, Immature Gran % (Auto) 0.500, Neut % (Auto) 44.4 L, Lymph % (Auto) 35.9, Edwards % (Auto) 17.1 H, Eos % (Auto) 1.6, Baso % (Auto) 0.5, Absolute Neuts (auto) 2.6, Absolute Lymphs (auto) 2.08, Nucleated RBC % 0 01/05/23 05:07: Sodium 142, Potassium 3.2 L, Chloride 106, Carbon Dioxide 30.0, Anion Gap 6, BUN 13, Creatinine 0.69 L, Estim Creat Clear Calc 52.95, Est GFR (MDRD) Af Amer 144, Est GFR (MDRD) Non-Af 119, BUN/Creatinine Ratio 18.8, Glucose 101, Calcium 8.6, Total Bilirubin 0.30, AST 15, ALT 8 L, Alkaline Phosphatase 48, Total Protein 5.5 L, Albumin 2.5 L, Globulin 3.0, Albumin/Globulin Ratio 0.8 L 01/05/23 05:07: Valproic Acid 57 Radiography Diagnostic Testing: Radiology Impression Brain CT 01/04/23 09:24 IMPRESSION: Findings suggestive of a normal pressure hydrocephalus. N.B. : The above Results were Read Back by Pieter Lynn MD to Dr Kavitha MD, and understanding confirmed on 01/04/2023 10:29:37 (ET). Electronically Signed: Pieter Lynn MD at 10:31 EDT , ADDENDUM: 01/04/23 1038 IMPRESSION: Findings suggestive of a normal pressure hydrocephalus. N.B. : The above Results were Read Back by Pieter Lynn MD to Dr Kavitha MD, and understanding confirmed on 01/04/2023 10:29:37 (ET). Electronically Signed: Pieter Lnyn MD at 10:31 EDT , Chest X-Ray 01/04/23 09:24 IMPRESSION: No acute abnormality is seen. Electronically Signed: Pieter Lynn MD at 10:36 EDT , Rhythm Strip Rhythm Strip: Sinus Rhythm Rate: 90 Ectopy: PAC(s) Physical Exam Narrative GENERAL: cooperative HEENT: Atraumatic; normocephalic EYES; Anicteric, Normal Conjunctiva NECK; supple, normal thyroid, RESPIRATORY: Diminished to auscultation CARDIOVASCULAR: Regular S1 S2, GI: soft, normoactive bowel sounds, : No Renal angle tenderness; EXTREMITIES: No edema, no clubbing, MUSCULOSKELETAL: no muscle wasting NEURO: Awake; no lateralizing signs. SKIN: No Rash PSYCH; Flat affect Assessment & Plan Assessment/Plan (1) NPH (normal pressure hydrocephalus): PLAN: Plan Patient is a 72-year-old male with multiple comorbidities resident at an extended care facility brought in with increasing ataxia and falls. Admitted to a monitored bed for subsequent eval 1. Ataxia with multiple falls ? CT did show evidence of NPH this may be the reason. As part of patient's management call was placed for patient to be transferred to [facility] for evaluation however due to likely prolonged stay decision was made to admit patient to the progressive care unit. Patient has undergone subsequent evaluation including MRI of the brain which was negative for CVA. MRI of the cervical spine ordered results pending 2. History of seizure disorder ? Did continue patient antiseizure medications 3. Hypokalemia ? Corrected per protocol repeat BMP ordered for follow-up 4. Hypothyroidism - Patient is on levothyroxine home dose continued 5. Dyslipidemia -Patient is on statin therapy, continued at home dose 6. GERD ? On PPI 7. Restless leg syndrome ? Patient is on ropinirole did continue 8. BPH ? Patient is on tamsulosin did continue 9. Class II obesity with BMI of 37.7 ? Weight loss advised 10.12 colonic polyps ? With previous polypectomies 11. Gout ? Patient is on allopurinol 12. Obstructive sleep apnea ? Patient is on CPAP at night 13. DVT prophylaxis ? Bilateral SCDs Time spent in the patient's overall evaluation,decision-making process, review of diagnostic data, adjustment of management, discussion with other providers, nursing nursing and ancillary staff involved in patient's care documentation, 55 Minutes Charges/Coding Visit Charges Inpatient E&M: 83691 [facility] [[email or web address]] Hosp L3
[2023-01-05 08:28] VITALS: O2SAT 96
--- NOTE | 2023-01-05 08:30 | MRI_ITS ---
EXAM: MR HEAD WITHOUT INTRAVENOUS CONTRAST CLINICAL INDICATION: NPH. TECHNIQUE: Multiplanar and multisequence MR images of the brain were obtained without intravenous contrast. This report was created using [employer] report generation technology. COMPARISON: CT head without contrast 01/04/2023. FINDINGS: BRAIN AND EXTRA-AXIAL SPACES: Mild posterior periventricular white matter T2 FLAIR hyperintensity foci are chronic white matter ischemic changes. Mild dilatation of the entire ventricular system is at least 2 to cerebral atrophy and cerebellar atrophy. Diminished central white matter volume/cerebral mantle of the cerebral hemispheres due to central atrophy more than cortical atrophy. No intra- or extra-axial hemorrhage. No hydrocephalus. Basal cisterns are patent. No midline shift and no mass effects. SELLA: Unremarkable. Normal sella turcica, pituitary gland, infundibular stalk, optic chiasm and hypothalamus. AUDITORY SYSTEM: Unremarkable. The internal auditory canals are patent. BONES/JOINTS: Unremarkable. No discrete lytic or blastic abnormalities. SINUSES: Unremarkable as visualized. Clear. MASTOID AIR CELLS: Unremarkable as visualized. Clear. ORBITS: Unremarkable as visualized. Both globes, extraocular muscles, optic nerves and retrobulbar fat appear unremarkable. VASCULATURE: Unremarkable as visualized. Normal flow voids in the major intracranial circulation. MRI/Brain without Contrast IMPRESSION: 1. No MRI evidence of acute or subacute ischemic infarct or remote ischemic infarcts. 2. Moderate cerebral atrophy, more central and cortical and cerebellar atrophy. These may explain dilatation of the entire ventricular system rather than NPH. If patient has clinical NPH, radionuclide cisternogram will be more helpful for further evaluation. 3. No significant interval change when compared to the CT head scan of 01/04/2023. Electronically Signed: Toni Hart MD at 9:59 EDT ,
--- NOTE | 2023-01-05 08:30 | MRI_ITS ---
STUDY: MRI CERVICAL SPINE WITHOUT CONTRAST REASON FOR EXAM: Male, 72 years old. NPH -- Pt refused contrast, VERY KYPHOTIC, best images possible TECHNIQUE: Standardized fat and water weighted pulse sequences were obtained in the sagittal and axial planes. COMPARISON: CT cervical spine without contrast 08/30/2019. FINDINGS: Normal foramen magnum and brainstem-cervical cord junction. Normal craniovertebral junction. Normal anterior atlantoaxial articulation. Normal odontoid process. Straightening of the C-spine curvature but there is pronounced thoracic kyphosis. Normal vertebral bodies and posterior osseous elements. C2-3: Normal endplates. Mild disc space height narrowing. Normal central canal and intervertebral neural foramina. C3-4: Normal endplates. Moderate disc space height narrowing with minimal intradiscal calcification, more obvious on CT. Normal central canal and intervertebral neural foramina. Partial ankylosis of the C3-C4 facet joints are unchanged. C4-5: Minimal Modic type II degenerative vertebral marrow fat infiltration underneath the C4 inferior endplate. Normal C5 superior endplate. Pronounced disc space height narrowing. Mild degenerative anterolisthesis of C4 on C5 is unchanged. Normal central canal and intervertebral neural foramina. Partial ankylosis of the right C4-C5 facet joint is more obvious on CT. C5-6: Normal endplates. Pronounced disc space height narrowing. Normal central canal and intervertebral neural foramina. C6-7: Modic type II degenerative vertebral marrow fat infiltration underneath the vertebral endplates. Pronounced disc space height narrowing. Normal central canal. Mild stenosis of the right intervertebral neural foramen due to osteophyte arising from the right uncovertebral joint. Normal central canal and left intervertebral neural foramen. C7-T1: Normal endplates. Normal disc height, signal and morphology. Normal central canal and intervertebral neural foramina. T1-T2, T2-T3, T3-T4, T4-T5 and T5-T6: (Sagittal only). Normal endplates. Normal disc height and morphology. Normal central canal and intervertebral neural foramina. Normal cervical cord. Normal included upper thoracic spinal cord. Normal brainstem. Atrophy of the superior and inferior vermis more than the cerebellar hemispheres. Normal visualized soft tissue structures. MRI/Spine Cervical (Routine) IMPRESSION: 1. Mild stenosis of the right C6-C7 intervertebral neural foramen due to osteophyte arising from the right uncovertebral joint. This is unchanged. 2. Mild degenerative anterolisthesis of C4 on C5, pronounced C4-C5 disc space height narrowing and partial ankylosis of the right C4-C5 facet joint. This level is unchanged when compared to CT cervical spine of 08/30/2019. 3. Partial ankylosis of the C3-C4 facet joints are unchanged. 4. No MRI evidence of cervical extruded disc fragment, disc protrusion or nerve root displacement. 5. No MRI evidence of recent or remote fractures of the cervical spine and included upper thoracic spine. 6. Normal cervical spinal cord and the included upper thoracic spinal cord. 7. Moderate atrophy of the superior vermis and inferior vermis more than the cerebellar hemispheres. This explains the dilatation of the fourth ventricle. If clinical NPH is a strong clinical consideration, radionuclide cisternogram will be more helpful. Electronically Signed: Toni Hart MD at 10:16 EDT ,
--- NOTE | 2023-01-05 08:49 | NURSING ---
I spoke to Ward at [facility] transfer line and she stated there are no beds as of now.
[2023-01-05 10:12] VITALS: BP 114/70; PULSE 90; RESP 16; TEMP 36.3; O2SAT 97
[2023-01-05] MEDS: Bumetanide 0.5 MG Tablet PO (10:27)
[2023-01-05] MEDS: Bumetanide 2 MG Tablet PO (10:28)
[2023-01-05] MEDS: Venlafaxine XR 150 MG Capsule PO (10:30)
[2023-01-05] MEDS: levETIRAcetam 750 MG Tablet 1500 MG PO ×2 (10:30→22:41)
[2023-01-05] MEDS: Potassium Chloride Oral Tablet 20 MEQ PO ×2 (10:30→16:48)
[2023-01-05] MEDS: Tamsulosin HCl 0.4 MG Capsule PO (10:31)
[2023-01-05] MEDS: Famotidine 20 MG Tablet PO ×2 (10:31→22:42)
[2023-01-05] MEDS: Menthol/Lanolin/Calamine/Znox 113 GM Tube 1 APPLIC TOPICAL ×4 (10:32→22:41)
[2023-01-05] MEDS: Finasteride 5 MG Tablet PO (10:32)
[2023-01-05] MEDS: Pantoprazole Sodium 40 MG Tablet PO (10:32)
[2023-01-05] MEDS: Spironolactone 25 MG Tablet 50 MG PO (10:40)
[2023-01-05] MEDS: 0.9% Normal Saline 1,000 ML 100 ML IV ×2 (11:57→22:16)
[2023-01-05] MEDS: Ferrous Sulfate 325 MG Tablet PO (11:58)
[2023-01-05] MEDS: Ascorbic Acid 500 MG Tablet PO (11:58)
[2023-01-05 12:53] VITALS: BMI 37.7
[2023-01-05] MEDS: Pramipexole Di-HCl 0.5 MG Tablet PO ×2 (13:51→22:42)
--- NOTE | 2023-01-05 13:51 | CHAPLAIN ---
Type of Pastoral Visit _x__ Initial Visit ___ Follow-up Visit ___ On-call Visit ___ General Patient Visit ___ Spiritual Assessment ___ Family Conference ___ Bereavement ___ Rapid Response ___ Code Blue ___ Other (describe below) Pastoral Care Referral From _x__ Patient ___ Family ___ Nurse ___ Physician ___ Merchandise Flow Manager ___ Shift Supervisor Melting ___ Other (describe below) Sacrament/Intervention _x__ Active listening ___ Anointing ___ Roman Catholic ___ Bereavement ___ Communion ___ Kim exploration ___ ___ Life review _x__ Prayer ___ Reconciliation ___ Sacrament of Sick _x__ Supportive presence ___ Wedding ___ Other (describe below) Pastoral Comments time given for patient to describe his concerns and to give supportive prsence; pt says he is fine but also acknowledges need for getting well and going back to his apartment; pt speaks of a brother and two sisters as his family/support; pt welcomes prayer and visits for supportive care
[2023-01-05 13:59] VITALS: BP 101/59; PULSE 82; RESP 15; TEMP 36.3; O2SAT 97
--- NOTE | 2023-01-05 14:46 | NURSING ---
[facility] transfer line phoned. No beds available.
[2023-01-05 18:39] VITALS: BP 114/71; PULSE 71; RESP 17; TEMP 36.2; O2SAT 98
[2023-01-05] MEDS: Magnesium Chloride 64 MG Delay Rel.Tablet 128 MG PO (22:41)
[2023-01-05] MEDS: OLANZapine 10 MG Tablet PO (22:43)
[2023-01-05] MEDS: Montelukast 10 MG Tablet PO (22:43)
[2023-01-05] MEDS: Allopurinol 100 MG Tablet PO (22:44)
[2023-01-05] MEDS: Atorvastatin Calcium 40 MG Tablet PO (22:44)
[2023-01-06] VITALS (7 sets, daily range): BP systolic 103–116; BP diastolic 54–70; PULSE 69–82; RESP 16; TEMP 36.3–36.9; O2SAT 94–98; BMI 37.8
[2023-01-06 05:17] LABS: Absolute Neutrophil Count 4.3 X10^3/uL (2.0-7.7); Basophil# 0.03 X10^3/uL; Basophil% 0.4 % (0-1); Eosinophil# 0.11 X10^3/uL; Eosinophils% 1.4 % (0-5); Hemoglobin 12.3 g/dL (13.0-16.5); Lymphocyte % 27.6 % (19-41); Mean Corp Hgb Conc 33.2 g/dL (32-36); Mean Corpuscular Volume 102.2 fL (80-94); Monocyte# 1.31 X10^3/uL; Monocyte% 16.4 % (0-10); NRBC Flagged by Analyzer 0 % (0-5); Neutrophil # 4.27 X10^3/uL (2.7-7.7); Neutrophil % 53.6 % (47-70); Platelet Count 111 K/mm3 (150-450); RBC Distribution Width SD 48.7 fl (35.1-43.9); Red Blood Count 3.62 M/mm3 (4.6-6.2)
[2023-01-06] MEDS: Pramipexole Di-HCl 0.5 MG Tablet PO ×3 (05:24→21:31)
[2023-01-06] MEDS: Levothyroxine 75 MCG Tablet PO (05:24)
[2023-01-06 05:46] LABS: Anion Gap 5 (5-15); BUN 14 mg/dL (7-18); BUN/Creat Ratio 23.8 RATIO (10-20); Calcium,Total 8.4 mg/dL (8.5-10.1); Chloride 107 mmol/L (98-107); Creatinine, Serum 0.59 mg/dL (0.70-1.30); EST Glomerular Filtration Rate 144 mL/min (>60); Est Glom Filt Rate - Afr Amer 174 mL/min (>60); Estimated Creatinine Clearance 52.95 ml/min; Glucose 103 mg/dL (74-106); Phosphorus 2.2 mg/dL (2.5-4.9); Potassium 3.7 mmol/L (3.5-5.1); Sodium Level 138 mmol/L (136-145)
--- NOTE | 2023-01-06 07:35 | PCM.PN.HOSP ---
Reason for Visit Reason for Visit: Diagnoses (Idiopathic) normal pressure hydrocephalus (01/04/23) Subjective Subjective Patient seen has no new complaints this AM. MRI obtained the day prior demonstrated 1.? Mild stenosis of the right C6-C7 intervertebral neural foramen due to osteophyte arising from the right uncovertebral joint. This is unchanged. Mild degenerative anterolisthesis of C4 on C5, pronounced C4-C5 disc space height narrowing and partial ankylosis of the right C4-C5 facet joint. This level is unchanged when compared to CT cervical spine of 08/30/2019. Partial ankylosis of the C3-C4 facet joints are unchanged.? Awaiting transfer to a tertiary care center for evaluation of his NPH Objective Data Objective Data Vital Signs: Vital Signs Temp Pulse Resp BP Pulse Ox O2 Del Method 97.6 F L 78 16 109/69 94 Room Air 01/06/23 06:00 01/06/23 06:00 01/06/23 06:00 01/06/23 06:00 01/06/23 06:00 01/06/23 06:00 Oxygen Delivery Method Room Air Weight: 96.7 kg Body Mass Index (BMI) 37.8 Intake & Output: Intake and Output for Last 24 Hours 01/04/23 01/05/23 01/06/23 23:59 23:59 23:59 Intake Total 100 / 100 1873.33 / 2073.33 400 / 400 Output Total 350 / 350 950 / 950 500 / 500 Balance -250 / -250 923.33 / 1123.33 -100 / -100 Lab / Micro Data Result Diagrams: 01/06/23 04:37 01/06/23 04:37 Labs: Laboratory Results - last 24 hr 01/06/23 04:37: WBC 8.0, RBC 3.62 L, Hgb 12.3 L, Hct 37.0 L, MCV 102.2 H, MCH 34.0 H, MCHC 33.2, RDW Std Deviation 48.7 H, RDW Coeff of Ronna 13.0, Plt Count 111 L, MPV 9.0, Immature Gran % (Auto) 0.600, Neut % (Auto) 53.6, Lymph % (Auto) 27.6, [place] % (Auto) 16.4 H, Eos % (Auto) 1.4, Baso % (Auto) 0.4, Absolute Neuts (auto) 4.3, Absolute Lymphs (auto) 2.20, Nucleated RBC % 0 01/06/23 04:37: Sodium 138, Potassium 3.7, Chloride 107, Carbon Dioxide 26.0, Anion Gap 5, BUN 14, Creatinine 0.59 L, Estim Creat Clear Calc 52.95, Est GFR (MDRD) Af Amer 174, Est GFR (MDRD) Non-Af 144, BUN/Creatinine Ratio 23.8 H, Glucose 103, Calcium 8.4 L, Phosphorus 2.2 L, Magnesium 2.0 Radiography Diagnostic Testing: Radiology Impression Brain MRI 01/05/23 08:30 IMPRESSION: 1. No MRI evidence of acute or subacute ischemic infarct or remote ischemic infarcts. 2. Moderate cerebral atrophy, more central and cortical and cerebellar atrophy. These may explain dilatation of the entire ventricular system rather than NPH. If patient has clinical NPH, radionuclide cisternogram will be more helpful for further evaluation. 3. No significant interval change when compared to the CT head scan of 01/04/2023. Electronically Signed: Toni Hart MD at 9:59 EDT , Cervical Spine MRI 01/05/23 08:30 IMPRESSION: 1. Mild stenosis of the right C6-C7 intervertebral neural foramen due to osteophyte arising from the right uncovertebral joint. This is unchanged. 2. Mild degenerative anterolisthesis of C4 on C5, pronounced C4-C5 disc space height narrowing and partial ankylosis of the right C4-C5 facet joint. This level is unchanged when compared to CT cervical spine of 08/30/2019. 3. Partial ankylosis of the C3-C4 facet joints are unchanged. 4. No MRI evidence of cervical extruded disc fragment, disc protrusion or nerve root displacement. 5. No MRI evidence of recent or remote fractures of the cervical spine and included upper thoracic spine. 6. Normal cervical spinal cord and the included upper thoracic spinal cord. 7. Moderate atrophy of the superior vermis and inferior vermis more than the cerebellar hemispheres. This explains the dilatation of the fourth ventricle. If clinical NPH is a strong clinical consideration, radionuclide cisternogram will be more helpful. Electronically Signed: Toni Hart MD at 10:16 EDT , Rhythm Strip Rhythm Strip: Sinus Rhythm Rate: 90 Ectopy: PAC(s) Physical Exam Narrative GENERAL: cooperative HEENT: Atraumatic; normocephalic EYES; Anicteric, Normal Conjunctiva NECK; supple, normal thyroid, RESPIRATORY: Diminished to auscultation CARDIOVASCULAR: Regular S1 S2, GI: soft, normoactive bowel sounds, : No Renal angle tenderness; EXTREMITIES: No edema, no clubbing, MUSCULOSKELETAL: no muscle wasting NEURO: Awake; no lateralizing signs. SKIN: No Rash PSYCH; Flat affect Assessment & Plan Assessment/Plan (1) NPH (normal pressure hydrocephalus): PLAN: Plan Patient is a 72-year-old male with multiple comorbidities resident at an extended care facility brought in with increasing ataxia and falls. Admitted to a monitored bed for subsequent eval 1. Ataxia with multiple falls ? CT did show evidence of NPH this may be the reason. As part of patient's management call was placed for patient to be transferred to [facility] for evaluation however due to likely prolonged stay decision was made to admit patient to the progressive care unit. Patient has undergone subsequent evaluation including MRI of the brain which was negative for CVA. MRI of the cervical spine ordered results pending -01/07/2020 2370 MRI obtained the day prior demonstrated 1.? Mild stenosis of the right C6-C7 intervertebral neural foramen due to osteophyte arising from the right uncovertebral joint. This is unchanged. Mild degenerative anterolisthesis of C4 on C5, pronounced C4-C5 disc space height narrowing and partial ankylosis of the right C4-C5 facet joint. This level is unchanged when compared to CT cervical spine of 08/30/2019. Partial ankylosis of the C3-C4 facet joints are unchanged.? Awaiting transfer to a tertiary care center for evaluation of his NPH 2. History of seizure disorder ? Did continue patient antiseizure medications 3. Hypokalemia ? Corrected per protocol repeat BMP ordered for follow-up 4. Hypothyroidism - Patient is on levothyroxine home dose continued 5. Dyslipidemia -Patient is on statin therapy, continued at home dose 6. GERD ? On PPI 7. Restless leg syndrome ? Patient is on ropinirole did continue 8. BPH ? Patient is on tamsulosin did continue 9. Class II obesity with BMI of 37.7 ? Weight loss advised 10.12 colonic polyps ? With previous polypectomies 11. Gout ? Patient is on allopurinol 12. Obstructive sleep apnea ? Patient is on CPAP at night 13. DVT prophylaxis ? Bilateral SCDs Time spent in the patient's overall evaluation,decision-making process, review of diagnostic data, adjustment of management, discussion with other providers, nursing nursing and ancillary staff involved in patient's care documentation, 35 Minutes Charges/Coding Visit Charges Inpatient E&M: 73319 Subs Hosp L2
[2023-01-06] MEDS: 0.9% Normal Saline 1,000 ML 100 ML IV ×2 (08:25→16:52)
[2023-01-06] MEDS: Potassium Chloride Oral Tablet 20 MEQ PO ×2 (10:53→16:50)
[2023-01-06] MEDS: Spironolactone 25 MG Tablet PO (10:53)
[2023-01-06] MEDS: Bumetanide 0.5 MG Tablet PO (10:54)
[2023-01-06] MEDS: Menthol/Lanolin/Calamine/Znox 113 GM Tube 1 APPLIC TOPICAL ×4 (10:54→21:32)
[2023-01-06] MEDS: Bumetanide 2 MG Tablet PO (10:54)
[2023-01-06] MEDS: Finasteride 5 MG Tablet PO (10:55)
[2023-01-06] MEDS: Tamsulosin HCl 0.4 MG Capsule PO (10:55)
[2023-01-06] MEDS: Pantoprazole Sodium 40 MG Tablet PO (10:55)
[2023-01-06] MEDS: Famotidine 20 MG Tablet PO ×2 (10:55→21:31)
[2023-01-06] MEDS: levETIRAcetam 750 MG Tablet 1500 MG PO ×2 (10:55→21:32)
[2023-01-06] MEDS: Venlafaxine XR 150 MG Capsule PO (10:55)
--- NOTE | 2023-01-06 10:59 | CASEMGMT ---
Faxed patient updates to [facility], . Kecia Lopez CORE FEEDER, [employer]ACH[employer]
[2023-01-06] MEDS: Acetaminophen 325 MG Tablet 650 MG PO (14:05)
[2023-01-06] MEDS: Ferrous Sulfate 325 MG Tablet PO (14:05)
[2023-01-06] MEDS: Ascorbic Acid 500 MG Tablet PO (14:05)
--- NOTE | 2023-01-06 18:00 | NURSING ---
Transfer line called and said they would have a bed for patient tomorrow morning most likely. RN updated
[2023-01-06] MEDS: Magnesium Chloride 64 MG Delay Rel.Tablet 128 MG PO (21:31)
[2023-01-06] MEDS: OLANZapine 10 MG Tablet PO (21:32)
[2023-01-06] MEDS: Montelukast 10 MG Tablet PO (21:32)
[2023-01-06] MEDS: Allopurinol 100 MG Tablet PO (21:32)
[2023-01-06] MEDS: Atorvastatin Calcium 40 MG Tablet PO (21:32)
[2023-01-07] MEDS: 0.9% Normal Saline 1,000 ML 100 ML IV ×2 (02:52→12:46)
[2023-01-07 05:00] VITALS: BP 131/71; PULSE 77; RESP 16; TEMP 36.6; O2SAT 94
[2023-01-07 05:53] LABS: Basophil# 0.04 X10^3/uL; Basophil% 0.6 % (0-1); Eosinophil# 0.17 X10^3/uL; Eosinophils% 2.6 % (0-5); Hemoglobin 12.1 g/dL (13.0-16.5); Lymphocyte % 33.8 % (19-41); Mean Corp Hgb Conc 32.7 g/dL (32-36); Mean Corpuscular Hgb 33.5 pg (27.0-32.0); Mean Corpuscular Volume 102.5 fL (80-94); Mean Platelet Vol. 8.9 fl (6.2-12.0); Monocyte# 0.99 X10^3/uL; Monocyte% 15.2 % (0-10); NRBC Flagged by Analyzer 0 % (0-5); Neutrophil # 3.03 X10^3/uL (2.7-7.7); Neutrophil % 46.7 % (47-70); Platelet Count 132 K/mm3 (150-450); RBC Distribution Width CV 12.8 % (11.6-14.6); RBC Distribution Width SD 47.9 fl (35.1-43.9); Red Blood Count 3.61 M/mm3 (4.6-6.2); White Blood Count 6.5 K/mm3 (4.4-11.0)
[2023-01-07 06:33] LABS: Anion Gap 6 (5-15); BUN 12 mg/dL (7-18); BUN/Creat Ratio 27.1 RATIO (10-20); Calcium,Total 8.8 mg/dL (8.5-10.1); Chloride 110 mmol/L (98-107); Creatinine, Serum 0.44 mg/dL (0.70-1.30); EST Glomerular Filtration Rate 200 mL/min (>60); Est Glom Filt Rate - Afr Amer 242 mL/min (>60); Estimated Creatinine Clearance 52.95 ml/min; Glucose 115 mg/dL (74-106); Potassium 3.9 mmol/L (3.5-5.1); Sodium Level 140 mmol/L (136-145)
[2023-01-07] MEDS: Pramipexole Di-HCl 0.5 MG Tablet PO ×2 (06:49→14:36)
[2023-01-07] MEDS: Levothyroxine 75 MCG Tablet PO (06:49)
[2023-01-07 07:56] VITALS: O2SAT 96
--- NOTE | 2023-01-07 07:58 | NURSING ---
I spoke with Alycia at [facility] transfer line she stated they still do not have a bed available but she is hopeful they may have one today.
--- NOTE | 2023-01-07 09:13 | PN.HOSP_ITS ---
Reason for Visit Reason for Visit: Diagnoses (Idiopathic) normal pressure hydrocephalus (01/04/23) Subjective Subjective Patient seen had a relatively uneventful night. Awaiting transfer to [facility] Objective Data Objective Data Vital Signs: Vital Signs Temp Pulse Resp BP Pulse Ox O2 Del Method 97.8 F 77 16 131/71 H 94 Room Air 01/07/23 05:00 01/07/23 05:00 01/07/23 05:00 01/07/23 05:00 01/07/23 05:00 01/07/23 05:00 Oxygen Delivery Method Room Air Weight: 96.7 kg Body Mass Index (BMI) 37.8 Intake & Output: Intake and Output for Last 24 Hours 01/05/23 01/06/23 01/07/23 23:59 23:59 23:59 Intake Total 1873.33 / 2073.33 2645 / 2845 1200 / 1200 Output Total 950 / 950 1600 / 1600 0 / 0 Balance 923.33 / 1123.33 1045 / 1245 1200 / 1200 Lab / Micro Data Result Diagrams: 01/07/23 04:52 01/07/23 04:52 Labs: Laboratory Results - last 24 hr 01/07/23 04:52: WBC 6.5, RBC 3.61 L, Hgb 12.1 L, Hct 37.0 L, MCV 102.5 H, MCH 33.5 H, MCHC 32.7, RDW Std Deviation 47.9 H, RDW Coeff of Ronna 12.8, Plt Count 132 L, MPV 8.9, Immature Gran % (Auto) 1.100 H, Neut % (Auto) 46.7 L, Lymph % (Auto) 33.8, [place] % (Auto) 15.2 H, Eos % (Auto) 2.6, Baso % (Auto) 0.6, Absolute Neuts (auto) 3.0, Absolute Lymphs (auto) 2.20, Nucleated RBC % 0 01/07/23 04:52: Sodium 140, Potassium 3.9, Chloride 110 H, Carbon Dioxide 24.0, Anion Gap 6, BUN 12, Creatinine 0.44 L, Estim Creat Clear Calc 52.95, Est GFR (MDRD) Af Amer 242, Est GFR (MDRD) Non-Af 200, BUN/Creatinine Ratio 27.1 H, Glucose 115 H, Calcium 8.8 Micro: Microbiology 01/05/23 14:52 Urine, Random Urine Culture - Final Culture exhibits no growth. Rhythm Strip Rhythm Strip: Sinus Rhythm Rate: 90 Ectopy: PAC(s) Physical Exam Narrative GENERAL: cooperative HEENT: Atraumatic; normocephalic EYES; Anicteric, Normal Conjunctiva NECK; supple, normal thyroid, RESPIRATORY: Diminished to auscultation CARDIOVASCULAR: Regular S1 S2, GI: soft, normoactive bowel sounds, : No Renal angle tenderness; EXTREMITIES: No edema, no clubbing, MUSCULOSKELETAL: no muscle wasting NEURO: Awake; no lateralizing signs. SKIN: No Rash PSYCH; Flat affect Assessment & Plan Assessment/Plan (1) NPH (normal pressure hydrocephalus): PLAN: Plan Patient is a 72-year-old male with multiple comorbidities resident at an extended care facility brought in with increasing ataxia and falls. Admitted to a monitored bed for subsequent eval 1. Ataxia with multiple falls ? CT did show evidence of NPH this may be the reason. As part of patient's management call was placed for patient to be transferred to [facility] for evaluation however due to likely prolonged stay decision was made to admit patient to the progressive care unit. Patient has undergone subsequent evaluation including MRI of the brain which was negative for CVA. MRI of the cervical spine ordered results pending -01/07/2020 237 MRI obtained the day prior demonstrated 1.? Mild stenosis of the right C6-C7 intervertebral neural foramen due to osteophyte arising from the right uncovertebral joint. This is unchanged. Mild degenerative anterolisthesis of C4 on C5, pronounced C4-C5 disc space height narrowing and partial ankylosis of the right C4-C5 facet joint. This level is unchanged when compared to CT cervical spine of 08/30/2019. Partial ankylosis of the C3-C4 facet joints are unchanged.? Awaiting transfer to a tertiary care center for evaluation of his NPH 2. History of seizure disorder ? Did continue patient antiseizure medications 3. Hypokalemia ? Corrected per protocol repeat BMP ordered for follow-up 4. Hypothyroidism - Patient is on levothyroxine home dose continued 5. Dyslipidemia -Patient is on statin therapy, continued at home dose 6. GERD ? On PPI 7. Restless leg syndrome ? Patient is on ropinirole did continue 8. BPH ? Patient is on tamsulosin did continue 9. Class II obesity with BMI of 37.7 ? Weight loss advised 10.12 colonic polyps ? With previous polypectomies 11. Gout ? Patient is on allopurinol 12. Obstructive sleep apnea ? Patient is on CPAP at night 13. DVT prophylaxis ? Bilateral SCDs Time spent in the patient's overall evaluation,decision-making process, review of diagnostic data, adjustment of management, discussion with other providers, nursing nursing and ancillary staff involved in patient's care documentation, 35 Minutes Charges/Coding Visit Charges Inpatient E&M: 11578 Subs Hosp L2
[2023-01-07 09:50] VITALS: BP 120/68; PULSE 89; RESP 17; TEMP 36.6; O2SAT 97
[2023-01-07] MEDS: levETIRAcetam 750 MG Tablet 1500 MG PO (09:51)
[2023-01-07] MEDS: Bumetanide 0.5 MG Tablet PO (09:51)
[2023-01-07] MEDS: Pantoprazole Sodium 40 MG Tablet PO (09:51)
[2023-01-07] MEDS: Tamsulosin HCl 0.4 MG Capsule PO (09:52)
[2023-01-07] MEDS: Venlafaxine XR 150 MG Capsule PO (09:52)
[2023-01-07] MEDS: Finasteride 5 MG Tablet PO (09:52)
[2023-01-07] MEDS: Bumetanide 2 MG Tablet PO (09:52)
[2023-01-07] MEDS: Famotidine 20 MG Tablet PO (09:52)
[2023-01-07] MEDS: Potassium Chloride Oral Tablet 20 MEQ PO ×2 (09:53→17:50)
[2023-01-07] MEDS: Spironolactone 25 MG Tablet 50 MG PO (09:53)
[2023-01-07] MEDS: Menthol/Lanolin/Calamine/Znox 113 GM Tube 1 APPLIC TOPICAL ×3 (09:54→17:50)
[2023-01-07 10:37] VITALS: O2SAT 96
--- NOTE | 2023-01-07 11:34 | NURSING ---
Teleneurology called to follow up with patient. If they are needed any further, please give them a call at [phone] option 1.
[2023-01-07] MEDS: Ferrous Sulfate 325 MG Tablet PO (12:46)
[2023-01-07] MEDS: Ascorbic Acid 500 MG Tablet PO (12:46)
[2023-01-07 12:51] VITALS: BMI 37.8
[2023-01-07 16:25] VITALS: BP 114/79; PULSE 89; RESP 16; TEMP 37.2; O2SAT 98
--- NOTE | 2023-01-07 18:30 | NURSING ---
Report called to [facility] to BYRON Green.
--- NOTE | 2023-01-07 20:30 | DS.PCM_ITS ---
Providers Date of Admission: 01/04/23 Date of Discharge: 01/07/23 Reason For Visit: GAIT DEBILITY, NPH Diagnosis Discharge Diagnosis (1) NPH (normal pressure hydrocephalus): Status: Acute Code(s): G91.2 - (Idiopathic) normal pressure hydrocephalus Plan Patient is a 72-year-old male with multiple comorbidities resident at an extended care facility brought in with increasing ataxia and falls. Admitted to a monitored bed for subsequent eval 1. Ataxia with multiple falls ? CT did show evidence of NPH this may be the reason. As part of patient's ma nagement call was placed for patient to be transferred to [facility] for evaluation however due to likely prolonged stay decision was made to admit patient to the progressive care unit. Patient has undergone subsequent evaluation including MRI of the brain which was negative for CVA. MRI of the cervical spine ordered results pending -01/07/2020 2370 MRI obtained the day prior demonstrated 1.? Mild stenosis of the right C6-C7 intervertebral neural foramen due to osteophyte arising from the right uncovertebral joint. This is unchanged. Mild degenerative anterolisthesis of C4 on C5, pronounced C4-C5 disc space height narrowing and partial ankylosis of the right C4-C5 facet joint. This level is unchanged when compared to CT cervical spine of 08/30/2019. Partial ankylosis of the C3-C4 facet joints are unchanged.? Awaiting transfer to a tertiary care center for evaluation of his NPH 2. History of seizure disorder ? Did continue patient antiseizure medications 3. Hypokalemia ? Corrected per protocol repeat BMP ordered for follow-up 4. Hypothyroidism - Patient is on levothyroxine home dose continued 5. Dyslipidemia -Patient is on statin therapy, continued at home dose 6. GERD ? On PPI 7. Restless leg syndrome ? Patient is on ropinirole did continue 8. BPH ? Patient is on tamsulosin did continue 9. Class II obesity with BMI of 37.7 ? Weight loss advised 10.12 colonic polyps ? With previous polypectomies 11. Gout ? Patient is on allopurinol 12. Obstructive sleep apnea ? Patient is on CPAP at night 13. DVT prophylaxis ? Bilateral SCDs Time spent in the patient's overall evaluation,decision-making process, review of diagnostic data, adjustment of management, discussion with other providers, nursing nursing and ancillary staff involved in patient's care documentation, 35 Minutes Medications at Discharge Home Medications alendronate 70 mg tablet 70 mg PO LEON OSTEOPOROSIS 12/07/16 allopurinol 100 mg tablet 100 mg PO QHS GOUT 12/07/16 atorvastatin 40 mg tablet 40 mg PO QHS CHOLESTEROL 12/07/16 clopidogrel 75 mg tablet 75 mg PO DAILY ANTIPLATELET 12/07/16 finasteride 5 mg tablet 5 mg PO DAILY PROSTATE 12/07/16 levothyroxine 50 mcg tablet 75 mcg PO DAILY THYROID 12/07/16 ascorbic acid (vitamin C) 500 mg capsule 500 mg PO DAILY@1200 SUPPLEMENT 03/17/19 bethanechol chloride 25 mg tablet 25 mg PO TID BLADDER 03/17/19 montelukast 10 mg tablet 10 mg PO QHS ALLERGIES 03/17/19 pantoprazole 40 mg tablet,delayed release 40 mg PO DAILY ACID REFLUX 03/17/19 cholecalciferol (vitamin D3) 50 mcg (2,000 unit) capsule 2,000 unit PO QHS SUPPLEMENT 07/11/19 magnesium oxide 400 mg (241.3 mg magnesium) tablet 400 mg PO QHS SUPPLEMENT 07/11/19 potassium chloride 20 mEq tablet,extended release(part/cryst) 20 meq PO BID SUPPLEMENT 07/11/19 ropinirole 1 mg tablet 1 mg PO TID SEIZURES 07/11/19 bismuth subsalicylate 262 mg/15 mL oral suspension ([place] Bismuth) 524 mg PO Q30-60M PRN N/V 07/15/20 loratadine 10 mg capsule 10 mg PO QHS 07/15/20 olanzapine 5 mg disintegrating tablet 10 mg PO QHS DEPRESSION 07/15/20 polyethylene glycol 3350 17 gram/dose oral powder (Miralax) 17 g PO DAILY PRN Constipation 07/15/20 sennosides 8.6 mg capsule (senna) 8.6 mg PO DAILY PRN Constipation 07/15/20 spironolactone 25 mg tablet 25 mg PO .25 MG QOD, 50MG QOD DIURETIC 07/15/20 venlafaxine 150 mg capsule,extended release 24 hr 150 mg PO DAILY DEPRESSION 07/15/20 albuterol sulfate 0.63 mg/3 mL solution for nebulization 0.63 mg inhalation Q4H PRN SOB 07/01/22 guaifenesin 600 mg tablet, extended release 12 hr (Mucinex) 600 mg PO BID PRN Congestion 07/01/22 ibuprofen 600 mg tablet 600 mg PO Q6H PRN Pain 07/01/22 valproic acid (as sodium salt) 250 mg/5 mL oral solution 1,000 mg PO TID 07/01/22 bumetanide 1 mg tablet 2.5 mg PO DAILY DIURETIC 01/04/23 cephalexin 500 mg tablet 500 mg PO BID . 01/04/23 famotidine 20 mg tablet 20 mg PO BID GERD 01/04/23 ferrous sulfate 325 mg (65 mg iron) tablet 325 mg PO DAILY SUPPLEMENT 01/04/23 levetiracetam 750 mg tablet 1,500 mg PO BID . 01/04/23 tamsulosin 0.4 mg capsule 0.4 mg PO DAILY PROSTATE 01/04/23 vitamins A,C,W-gltr-aacbei 2,148 mcg-113 mg-45 mg-17.4 mg tablet (Eye Multivitamin) 1 tab PO DAILY SUPPLEMENT 01/04/23 Hospital Course Summary of Care Provided Minutes Spent on Discharge: 35 Physical Exam Narrative GENERAL: cooperative HEENT: Atraumatic; normocephalic EYES; Anicteric, Normal Conjunctiva NECK; supple, normal thyroid, RESPIRATORY: Diminished to auscultation CARDIOVASCULAR: Regular S1 S2, GI: soft, normoactive bowel sounds, : No Renal angle tenderness; EXTREMITIES: No edema, no clubbing, MUSCULOSKELETAL: no muscle wasting NEURO: Awake; no lateralizing signs. SKIN: No Rash PSYCH; Flat affect Weight / BMI Weight Weight: 96.7 kg Body Mass Index (BMI) 37.8 ABG / Lab / Microbiology Data Result Diagrams: 01/07/23 04:52 01/07/23 04:52 Laboratory: Laboratory Results - last 24 hr 01/07/23 04:52: WBC 6.5, RBC 3.61 L, Hgb 12.1 L, Hct 37.0 L, MCV 102.5 H, MCH 33.5 H, MCHC 32.7, RDW Std Deviation 47.9 H, RDW Coeff of Ronna 12.8, Plt Count 132 L, MPV 8.9, Immature Gran % (Auto) 1.100 H, Neut % (Auto) 46.7 L, Lymph % (Auto) 33.8, [place] % (Auto) 15.2 H, Eos % (Auto) 2.6, Baso % (Auto) 0.6, Absolute Neuts (auto) 3.0, Absolute Lymphs (auto) 2.20, Nucleated RBC % 0 01/07/23 04:52: Sodium 140, Potassium 3.9, Chloride 110 H, Carbon Dioxide 24.0, Anion Gap 6, BUN 12, Creatinine 0.44 L, Estim Creat Clear Calc 52.95, Est GFR (MDRD) Af Amer 242, Est GFR (MDRD) Non-Af 200, BUN/Creatinine Ratio 27.1 H, Glucose 115 H, Calcium 8.8 Microbiology: Microbiology 01/05/23 14:52 Urine, Random Urine Culture - Final Culture exhibits no growth. D/C Instructions Discharge Diet: No restrictions Discharge Activity: Return to Normal Activity Call your doctor if you observe: Fever of 101 or Higher, Shortness of breath, Fainting spells and Chest pain Meaningful Use Info Meaningful Use Diagnoses (Choose all that apply): None applicable Discharge Plan Admission Admit Date/Time: 01/04/23 17:49 Attending Provider: Chino Cannon [employer] Providers: Carrie Hooper Discharge Orders/Prescriptions Prescriptions: No Action ascorbic acid (vitamin C) 500 mg capsule 500 mg PO DAILY@1200 pantoprazole 40 mg tablet,delayed release (DR/EC) 40 mg PO DAILY bethanechol chloride 25 mg tablet 25 mg PO TID montelukast 10 mg tablet 10 mg PO QHS loratadine 10 mg capsule 10 mg PO QHS bismuth subsalicylate [[place] Bismuth] 262 mg/15 mL suspension 524 mg PO Q30-60M PRN (Reason: N/V) Rx Instructions: do not exceed 8 doses in a 24 hour period polyethylene glycol 3350 [Miralax] 17 gram/dose powder 17 g PO DAILY PRN (Reason: Constipation) senna 8.6 mg capsule 8.6 mg PO DAILY PRN (Reason: Constipation) atorvastatin 40 MG tablet 40 mg PO QHS alendronate 70 MG tablet 70 mg PO LEON clopidogrel 75 MG tablet 75 mg PO DAILY allopurinol 100 MG tablet 100 mg PO QHS levothyroxine 50 MCG tablet 75 mcg PO DAILY finasteride 5 MG tablet 5 mg PO DAILY spironolactone 25 mg tablet 25 mg PO .25 MG QOD, 50MG QOD Rx Instructions: 25mg qod, 50mg qod olanzapine 5 mg tablet,disintegrating 10 mg PO QHS ropinirole 1 MG tablet 1 mg PO TID potassium chloride 20 MEQ tablet,ER particles/crystals 20 meq PO BID magnesium oxide 400 MG tablet 400 mg PO QHS cholecalciferol (vitamin D3) 2,000 UNIT capsule 2,000 unit PO QHS venlafaxine 150 mg capsule,extended release 24hr 150 mg PO DAILY valproic acid (as sodium salt) 250 mg/5 mL Solution 1,000 mg PO TID albuterol sulfate 0.63 mg/3 mL Solution For Nebulization 0.63 mg INHALATION Q4H PRN (Reason: SOB) ibuprofen 600 mg Tablet 600 mg PO Q6H PRN (Reason: Pain) guaifenesin [Mucinex] 600 mg Tablet Extended Release 12hr 600 mg PO BID PRN (Reason: Congestion) famotidine 20 mg Tablet 20 mg PO BID tamsulosin 0.4 mg Capsule 0.4 mg PO DAILY ferrous sulfate 325 mg (65 mg iron) Tablet 325 mg PO DAILY cephalexin 500 mg Tablet 500 mg PO BID bumetanide 1 mg Tablet 2.5 mg PO DAILY levetiracetam 750 mg Tablet 1,500 mg PO BID Eye Multivitamin 2,148 mcg-113 mg-45 mg-17.4mg Tablet 1 tab PO DAILY Rx Instructions: administer with LUNCH Referrals / Follow Up: Maddie Bran, [[facility]] - Disposition Disposition (needs filled in before D/C Order can be placed): Acute Care Hospital Charges/Coding Visit Charges Inpatient E&M: 37275 Disch Hosp >30min
--- NOTE | 2023-01-08 12:48 | CASEMGMT ---
[facility]. DARLENE let Concha know that patient was transferred to [facility] yesterday. Concha thanked DARLENE for letting them know. Nikki TILLMAN
== END 2023-01-07 20:44 | disposition short-term general hospital (02) | DRG 57 ==
LOC: ED 17:16 → PCU 18:38
PROVIDERS: Admitting Provider Family Medicine; Emergency Provider Emergency Medicine; Visit Provider Internal Medicine
DX: G91.2 (Idiopathic) normal pressure hydrocephalus (principal); D50.9 Iron deficiency anemia, unspecified; F20.9 Schizophrenia, unspecified; G40.909 Epilepsy, unspecified, not intractable, without status epilepticus; E87.6 Hypokalemia; I10 Essential (primary) hypertension; M10.9 Gout, unspecified; K21.9 Gastro-esophageal reflux disease without esophagitis; E03.9 Hypothyroidism, unspecified; E78.00 Pure hypercholesterolemia, unspecified; G47.33 Obstructive sleep apnea (adult) (pediatric); G25.81 Restless legs syndrome; M43.12 Spondylolisthesis, cervical region; F41.9 Anxiety disorder, unspecified; I89.0 Lymphedema, not elsewhere classified; M43.22 Fusion of spine, cervical region; R29.6 Repeated falls; Z68.37 Body mass index [BMI] 37.0-37.9, adult; N40.0 Benign prostatic hyperplasia without lower urinary tract symptoms; F32.A Depression, unspecified; R27.0 Ataxia, unspecified; R53.81 Other malaise; E66.9 Obesity, unspecified; Z79.02 Long term (current) use of antithrombotics/antiplatelets; Z79.890 Hormone replacement therapy; Z79.899 Other long term (current) drug therapy; Z66 Do not resuscitate
CPT/HCPCS: 36415; 70450; 70551; 71045; 72141; 80048; 80053; 80164; 81001; 82550; 82607; 82746; 83735; 84100; 84443; 84484; 85025; 85610; 85730; 87086; 92526; 92610; 93005; 97110; 97162; 97166; 97530; 97535; 99285; J7030; A4216

== ENCOUNTER 2023-01-10 01:38 | Observation (INO) | payer MEDICARE, MEDICAID, SELFPAY ==
[2023-01-10 01:40] VITALS: BP 120/75; PULSE 111; RESP 14; TEMP 36.6; O2SAT 93; BMI 35.3
--- NOTE | 2023-01-10 03:10 | ED.RN ---
attempted to contact [facility] for report on this pt with no answer.
[2023-01-10 03:14] LABS: Hematocrit 37.6 % (40-54); Hemoglobin 12.3 g/dL (13.0-16.5); Lymphocyte % 25.6 % (19-41); Mean Corp Hgb Conc 32.7 g/dL (32-36); Mean Corpuscular Hgb 33.4 pg (27.0-32.0); Mean Corpuscular Volume 102.2 fL (80-94); Mean Platelet Vol. 8.4 fl (6.2-12.0); Neutrophil % 53.9 % (47-70); POSITIVE DIFFERENTIAL YES; Platelet Count 168 K/mm3 (150-450); RBC Distribution Width CV 13.1 % (11.6-14.6); Red Blood Count 3.68 M/mm3 (4.6-6.2); White Blood Count 10.4 K/mm3 (4.4-11.0)
[2023-01-10 03:15] LABS: Absolute Lymphocyte Count 2.65 X10^3/uL (0.83-4.51); Absolute Neutrophil Count 5.6 X10^3/uL (2.0-7.7); Basophil# 0.08 X10^3/uL; Basophil% 0.8 % (0-1); Eosinophil# 0.18 X10^3/uL; Eosinophils% 1.7 % (0-5); Lymphocyte # 2.65 X10^3/ul (0.83-4.51); Monocyte# 1.72 X10^3/uL; Monocyte% 16.6 % (0-10); NRBC Flagged by Analyzer 0 % (0-5); Neutrophil # 5.58 X10^3/uL (2.7-7.7)
--- NOTE | 2023-01-10 03:23 | EX.ED.DYSGE1 ---
HPI History of Present Illness Chief Complaint: Weakness Informant: patient and EMS Narrative Narrative: Patient sent here from assisted living for weakness around 2-3 AM. No one from assisted living facility called report, EMS states they tried to get him up and were having trouble, for unknown reasoning if he had to go to the bathroom or what the deal was, limited information is available the patient does not know why he is here, but EMS said that he was too weak and so he was sent here for evaluation. He was seen here recently, there was a head CT that was concerning for possible NPH, he had a high valproic acid level, neurology recommended he be transferred to a facility that had in person neurology, he was sent to [facility] they excepted him, they did not think he had NPH but rather that his ataxia was related to his high valproate levels. They recommended he be on valproic acid 1000 mg 3 times daily, and Keppra 1500 mg twice daily for his epilepsy. Apparently [facility] this past day. There is no other information available at this time. The patient denies having any focal complaints. He initially thought he was at [facility], but he was redirectable and [facility] was his second guess. [facility] Medical History Anxiety Benign essential HTN BPH (benign prostatic hyperplasia) BPH (benign prostatic hyperplasia) Cancer Cardiology follow-up encounter Depression Easy bruising Epilepsy Gastric reflux Gout History of colon cancer History of echocardiogram History of edema History of seizure History of stress test Hyperlipemia Hypothyroid Leg cramps Loose, teeth Non-smoker Pure hypercholesterolemia Restless legs Schizophrenia Seizure disorder Shortness of breath on exertion Sleep apnea Walker as ambulation aid Wears glasses Home Medications alendronate 70 mg tablet 70 mg PO LEON OSTEOPOROSIS 12/07/16 [History Last Taken 01/03/23] allopurinol 100 mg tablet 100 mg PO QHS GOUT 12/07/16 [History Last Taken 01/03/23] atorvastatin 40 mg tablet 40 mg PO QHS CHOLESTEROL 12/07/16 [History Last Taken 01/03/23] clopidogrel 75 mg tablet 75 mg PO DAILY ANTIPLATELET 12/07/16 [History Last Taken 01/04/23] finasteride 5 mg tablet 5 mg PO DAILY PROSTATE 12/07/16 [History Last Taken 01/04/23] levothyroxine 50 mcg tablet 75 mcg PO DAILY THYROID 12/07/16 [History Last Taken 01/04/23] ascorbic acid (vitamin C) 500 mg capsule 500 mg PO DAILY@1200 SUPPLEMENT 03/17/19 [History Last Taken 01/04/23] bethanechol chloride 25 mg tablet 25 mg PO TID BLADDER 03/17/19 [History Last Taken 01/04/23] montelukast 10 mg tablet 10 mg PO QHS ALLERGIES 03/17/19 [History Last Taken 01/03/23] pantoprazole 40 mg tablet,delayed release 40 mg PO DAILY ACID REFLUX 03/17/19 [History Last Taken 01/04/23] cholecalciferol (vitamin D3) 50 mcg (2,000 unit) capsule 2,000 unit PO QHS SUPPLEMENT 07/11/19 [History Last Taken 01/03/23] magnesium oxide 400 mg (241.3 mg magnesium) tablet 400 mg PO QHS SUPPLEMENT 07/11/19 [History Last Taken 01/03/23] potassium chloride 20 mEq tablet,extended release(part/cryst) 20 meq PO BID SUPPLEMENT 07/11/19 [History Last Taken 01/04/23] ropinirole 1 mg tablet 1 mg PO TID SEIZURES 07/11/19 [History Last Taken 01/04/23] bismuth subsalicylate 262 mg/15 mL oral suspension ([place] Bismuth) 524 mg PO Q30-60M PRN N/V 07/15/20 [History Last Taken Unknown] loratadine 10 mg capsule 10 mg PO QHS 07/15/20 [History Last Taken 01/03/23] olanzapine 5 mg disintegrating tablet 10 mg PO QHS DEPRESSION 07/15/20 [History Last Taken 01/03/23] polyethylene glycol 3350 17 gram/dose oral powder (Miralax) 17 g PO DAILY PRN Constipation 07/15/20 [History Last Taken Unknown] sennosides 8.6 mg capsule (senna) 8.6 mg PO DAILY PRN Constipation 07/15/20 [History Last Taken Unknown] spironolactone 25 mg tablet 25 mg PO .25 MG QOD, 50MG QOD DIURETIC 07/15/20 [History Last Taken 01/04/23] venlafaxine 150 mg capsule,extended release 24 hr 150 mg PO DAILY DEPRESSION 07/15/20 [History Last Taken 01/04/23] albuterol sulfate 0.63 mg/3 mL solution for nebulization 0.63 mg inhalation Q4H PRN SOB 07/01/22 [History Last Taken Unknown] guaifenesin 600 mg tablet, extended release 12 hr (Mucinex) 600 mg PO BID PRN Congestion 07/01/22 [History Last Taken Unknown] ibuprofen 600 mg tablet 600 mg PO Q6H PRN Pain 07/01/22 [History Last Taken Unknown] valproic acid (as sodium salt) 250 mg/5 mL oral solution 1,000 mg PO TID 07/01/22 [History Last Taken 01/04/23] bumetanide 1 mg tablet 2 mg PO DAILY DIURETIC 01/04/23 [History Last Taken 01/04/23] cephalexin 500 mg tablet 500 mg PO BID . 01/04/23 [History Last Taken 01/04/23] famotidine 20 mg tablet 20 mg PO BID GERD 01/04/23 [History Last Taken 01/04/23] ferrous sulfate 325 mg (65 mg iron) tablet 325 mg PO DAILY SUPPLEMENT 01/04/23 [History Last Taken 01/04/23] levetiracetam 750 mg tablet 1,500 mg PO BID . 01/04/23 [History Last Taken 01/04/23] tamsulosin 0.4 mg capsule 0.4 mg PO DAILY PROSTATE 01/04/23 [History Last Taken 01/04/23] vitamins A,C,E-wqcr-dnduwx 2,148 mcg-113 mg-45 mg-17.4 mg tablet (Eye Multivitamin) 1 tab PO DAILY SUPPLEMENT 01/04/23 [History Last Taken 01/04/23] Allergy/AdvReac Type Severity Reaction Status Date / Time aspirin Allergy cant Verified 01/10/23 01:40 remember rxn nickel Allergy Other Verified 01/10/23 01:40 oxcarbazepine Allergy cant Verified 01/10/23 01:40 [From Trileptal] remember rxn Family History Mother COPD (chronic obstructive pulmonary disease) CAD (coronary artery disease) Father Cancer lung Heart disease Myocardial infarction CAD (coronary artery disease) Aunt CAD (coronary artery disease) Myocardial infarction Surgical History History of cataract extraction History of cholecystectomy History of right hip replacement Social History household members: none housing: assisted living facility Smoking Status: Never smoker alcohol intake: never substance use type: does not use caffeine: Yes Type: carbonated beverages Number of servings: 3 ROS ROS ED Constitutional Constitutional ED: Denies chills or fever(s) Eyes Eyes: Denies change in vision or diplopia ENT ENT ED: Denies rhinorrhea or sore throat Cardiovascular Cardiovascular: Denies chest pain or palpitations Respiratory/Chest Respiratory/Chest: Denies cough or dyspnea Gastrointestinal Gastrointestinal: Denies abdominal pain, diarrhea, nausea or vomiting Genitourinary Genitourinary ED: Denies dysuria or hematuria Musculoskeletal Musculoskeletal: Denies back pain or neck pain Integumentary Denies abscess or rash Neurologic Neurologic: Denies headache(s), paresthesias or weakness Psychiatric Psychiatric: Denies anxiety or suicidal thoughts EXAM Physical Exam Const Vital Signs: 01/10/23 01:40 01/10/23 01:41 01/10/23 06:59 Temperature 98 F Temperature Source Temporal Pulse Rate 111 H 64 Respiratory Rate 14 17 Respiratory Effort Normal Non-Labored Blood Pressure 120/75 133/83 H Blood Pressure Mean 90 99 Pulse Ox 93 96 Oxygen Delivery Method Room Air Room Air Positive well nourished and well developed General Appearance ED: well developed and NAD HEENT Reports moist mucous membranes normocephalic and atraumatic Eyes PERRL and EOMs intact bilaterally Neck full ROM and supple Neck Narrative: Very kyphotic, similar to previous evaluation Resp normal respiratory effort and clear to auscultation bilaterally Cardio regular rate, regular rhythm and no murmurs GI non-tender and non-distended Auscultation: normoactive bowel sounds Palpation: soft Back/Spine no CVA tenderness General Back: other FROM Extremity normal to inspection General Extremety ED: Yes edema; Negative for pulses abnormal or tenderness General Extremity: edema bilateral lower extremity Details: mild; Negative for pulses abnormal Neuro oriented x3, CN's II-XII intact bilaterally and no sensory deficits noted Sensorium / Orientation: awake and alert Motor Exam: general weakness Skin no rashes or lesions noted and no wounds MDM MDM MDM Narrative Medical decision making narrative: While performing a work-up, patient was given some gentle IV fluids while resting here overnight during overnight cashier. His urinalysis is negative for infection and the one that we did 6 days ago was negative. He has had 2 head CTs in the last week or 2 that were similar and unchanged from each other, he has had no recent fall or findings of a head injury so I feel a repeat CT is not indicated at this time. I did repeat his chest x-ray, 1 view on my interpretation shows no pneumonia. His valproic acid level right now is within normal limits. The rest of his basic labs are within normal limits except for mild chronic anemia. At this time the patient is resting comfortably and other than a very mild tachycardia his exam is unremarkable. He has no lateralizing neurologic deficits, he is able to move everything although he is generally weak, although it is 3-4 AM. I had staff call the assisted living facility, no one is answering. We did not get a report. EMS said the patient was weak but they tried to get him up in the middle of the night, and I do not know what his baseline is because the patient is a very poor historian. We observed him overnight and I reevaluated him in the morning, I had staff get him up to walk with his walker which is how he ambulates at baseline. This was around 6:30 AM. He did okay, short shuffling gait but was able to do so without any other assistance, and he said that is how he ambulates at baseline. I asked him again about the morning at assisted living prior to getting here, he states he needed to pee and he had trouble getting up with assistance because he was tired. I asked him if he feels like he is doing okay in assisted living and he states yes. He states he wants to go back there. I asked him if he wanted to be admitted to look into placement to a higher level of care like a long-term facility and he states no that he does not need that. Therefore at this time I feel it is appropriate to discharge him back to assisted living. Lab Data Attestation: I reviewed the patient's lab results. Labs: Laboratory Results - last 24 hr 01/10/23 01/10/23 01/10/23 03:05 03:05 03:21 WBC 10.4 RBC 3.68 L Hgb 12.3 L Hct 37.6 L MCV 102.2 H MCH 33.4 H MCHC 32.7 RDW Std Deviation 49.0 H RDW Coeff of Ronna 13.1 Plt Count 168 MPV 8.4 Immature Gran % (Auto) 1.400 H Neut % (Auto) 53.9 Lymph % (Auto) 25.6 Woods % (Auto) 16.6 H Eos % (Auto) 1.7 Baso % (Auto) 0.8 Absolute Neuts (auto) 5.6 Absolute Lymphs (auto) 2.65 Nucleated RBC % 0 Macrocytosis 2+ Sodium 139 Potassium 4.3 Chloride 105 Carbon Dioxide 29.0 Anion Gap 5 BUN 12 Creatinine 0.80 Estim Creat Clear Calc 66.19 Est GFR (MDRD) Af Amer 122 Est GFR (MDRD) Non-Af 101 BUN/Creatinine Ratio 15.0 Glucose 83 Calcium 9.0 Troponin I High Sens 6 Urine Color Urine Clarity Urine pH Ur Specific Stevens Urine Protein Urine Glucose (UA) Urine Ketones Urine Occult Blood Urine Nitrite Urine Bilirubin Urine Urobilinogen Ur Leukocyte Esterase Urine RBC Urine WBC Ur Squamous Epith Cells Urine Bacteria Hyaline Casts Urine Mucus Valproic Acid 80 01/10/23 03:22 WBC RBC Hgb Hct MCV MCH MCHC RDW Std Deviation RDW Coeff of Ronna Plt Count MPV Immature Gran % (Auto) Neut % (Auto) Lymph % (Auto) Woods % (Auto) Eos % (Auto) Baso % (Auto) Absolute Neuts (auto) Absolute Lymphs (auto) Nucleated RBC % Macrocytosis Sodium Potassium Chloride Carbon Dioxide Anion Gap BUN Creatinine Estim Creat Clear Calc Est GFR (MDRD) Af Amer Est GFR (MDRD) Non-Af BUN/Creatinine Ratio Glucose Calcium Troponin I High Sens Urine Color Yellow Urine Clarity Clear Urine pH 6.0 Ur Specific Stevens 1.015 Urine Protein 15 H Urine Glucose (UA) Normal Urine Ketones 5 H Urine Occult Blood 25 H Urine Nitrite Negative Urine Bilirubin Negative Urine Urobilinogen Normal Ur Leukocyte Esterase Negative Urine RBC 0 SEEN Urine WBC 0 SEEN Ur Squamous Epith Cells 0 SEEN Urine Bacteria 0 SEEN Hyaline Casts 0-5 SEEN Urine Mucus 0 SEEN Valproic Acid Radiography Chest X-Ray - ED: 1 View, Read by ED Physician and No Infiltrates Diagnostic Testing: Clinical Impression(s) from Imaging Studies Chest X-Ray 01/10/23 03:31 IMPRESSION: No acute findings in the chest. Electronically Signed: Alban Marin MD at 4:01 EDT , Rhythm Strip Rhythm Strip: Sinus Tach Rate: 105 Ectopy: None EKG Initial EKG: Attestation: I personally reviewed and interpreted this EKG as follows: Interpretation: No Acute Injury Pattern, Sinus Tachycardia and LAFB Prior EKG tracings: available for review Prior: Unchanged Discharge Plan Triage Chief Complaint: Weakness ED Provider: Hilario Plummer Dx/Rx/DC Orders Clinical Impression: Encounter for medical screening examination Instructions: ED Weakness (Uncertain Cause) Prescriptions: No Action ascorbic acid (vitamin C) 500 mg capsule 500 mg PO DAILY@1200 pantoprazole 40 mg tablet,delayed release (DR/EC) 40 mg PO DAILY bethanechol chloride 25 mg tablet 25 mg PO TID montelukast 10 mg tablet 10 mg PO QHS loratadine 10 mg capsule 10 mg PO QHS bismuth subsalicylate [[place] Bismuth] 262 mg/15 mL suspension 524 mg PO Q30-60M PRN (Reason: N/V) Rx Instructions: do not exceed 8 doses in a 24 hour period polyethylene glycol 3350 [Miralax] 17 gram/dose powder 17 g PO DAILY PRN (Reason: Constipation) senna 8.6 mg capsule 8.6 mg PO DAILY PRN (Reason: Constipation) atorvastatin 40 MG tablet 40 mg PO QHS alendronate 70 MG tablet 70 mg PO LEON clopidogrel 75 MG tablet 75 mg PO DAILY allopurinol 100 MG tablet 100 mg PO QHS levothyroxine 50 MCG tablet 75 mcg PO DAILY finasteride 5 MG tablet 5 mg PO DAILY spironolactone 25 mg tablet 25 mg PO .25 MG QOD, 50MG QOD Rx Instructions: 25mg qod, 50mg qod olanzapine 5 mg tablet,disintegrating 10 mg PO QHS ropinirole 1 MG tablet 1 mg PO TID potassium chloride 20 MEQ tablet,ER particles/crystals 20 meq PO BID magnesium oxide 400 MG tablet 400 mg PO QHS cholecalciferol (vitamin D3) 2,000 UNIT capsule 2,000 unit PO QHS venlafaxine 150 mg capsule,extended release 24hr 150 mg PO DAILY valproic acid (as sodium salt) 250 mg/5 mL Solution 1,000 mg PO TID albuterol sulfate 0.63 mg/3 mL Solution For Nebulization 0.63 mg INHALATION Q4H PRN (Reason: SOB) ibuprofen 600 mg Tablet 600 mg PO Q6H PRN (Reason: Pain) guaifenesin [Mucinex] 600 mg Tablet Extended Release 12hr 600 mg PO BID PRN (Reason: Congestion) famotidine 20 mg Tablet 20 mg PO BID tamsulosin 0.4 mg Capsule 0.4 mg PO DAILY ferrous sulfate 325 mg (65 mg iron) Tablet 325 mg PO DAILY cephalexin 500 mg Tablet 500 mg PO BID bumetanide 1 mg Tablet 2 mg PO DAILY levetiracetam 750 mg Tablet 1,500 mg PO BID Eye Multivitamin 2,148 mcg-113 mg-45 mg-17.4mg Tablet 1 tab PO DAILY Rx Instructions: administer with LUNCH Primary Care Provider: NILS CANTOR Referrals: NILS CANTOR [Other] Doctor,Your [Non-Staff] - 1 Day for another exam Activity Restrictions/Additional Instructions: Patient again has a normal work-up including a normal valproic acid level. He was offered higher level of care such as long-term, and he declined/refuses. Ambulatory in ED with a walker at baseline. Disposition Disposition: Home, Self Care
[2023-01-10 03:27] LABS: Differential Indicated SCAN CRITERIA MET
--- NOTE | 2023-01-10 03:31 | RAD_ITS ---
EXAM: XR CHEST, 1 VIEW CLINICAL INDICATION: weakness weakness TECHNIQUE: Frontal view of the chest. This report was created using [employer] report generation technology. COMPARISON: 01/04/2023. 08/30/2019. FINDINGS: LUNGS AND PLEURAL SPACES: There are minimal fibrotic changes in the right upper lung field and bilateral lung bases.. No pneumothorax. No effusion. HEART: Unremarkable. Cardiac silhouette not enlarged. MEDIASTINUM: Central airways and mediastinal contour are unremarkable. BONES/JOINTS: There is extensive scoliosis deon the thoracolumbar junction. SOFT TISSUES: Unremarkable. RAD/Chest 1 View (Portable) IMPRESSION: No acute findings in the chest. Electronically Signed: Alban Marin MD at 4:01 EDT Reading Location ID and State: [facility] / [place] , Service support ,
[2023-01-10 03:50] LABS: Bacteria 0 SEEN /hpf (None Seen); Mucous, Urine 0 SEEN /hpf (<or=2+); Red Blood Cells-Urine 0 SEEN /hpf (0-5); Squamous Epithelial Cells - UA 0 SEEN /hpf (0-5); White Blood Cells 0 SEEN /hpf (0-5)
[2023-01-10 03:50] LABS: Anion Gap 5 (5-15); BUN 12 mg/dL (7-18); Chloride 105 mmol/L (98-107); EST Glomerular Filtration Rate 101 mL/min (>60); Est Glom Filt Rate - Afr Amer 122 mL/min (>60); Estimated Creatinine Clearance 66.19 ml/min; Glucose 83 mg/dL (74-106); Potassium 4.3 mmol/L (3.5-5.1); Sodium Level 139 mmol/L (136-145); Troponin-I HS 6 pg/mL (3.0-78.0)
[2023-01-10 04:05] LABS: Color, Urine Yellow (Yellow); Glucose, Dipstick Normal (Normal); Ketone-Dipstick 5 mg/dl (Negative); Leukocyte Esterase-Dipstick Negative /ul (Negative); Nitrite-Dipstick Negative (Negative); Occult Blood-Urine 25 /ul (Negative); Protein-Dipstick 15 mg/dl (Negative); Specific Gravity, Urine 1.015 (1.002-1.030); Urine Bilirubin Dipstick Negative (Negative); Urine Clarity Clear (Clear); Urine Urobilinogen Normal (Normal)
[2023-01-10 04:11] LABS: Valproic Acid (Depakene) Level 80 ug/mL (50-100)
[2023-01-10 04:47] LABS: Hyaline Cast 0-5 SEEN /lpf (0-5)
[2023-01-10 05:02] LABS: Macrocytosis 2+
[2023-01-10 06:59] VITALS: BP 133/83; PULSE 64; RESP 17; O2SAT 96
--- NOTE | 2023-01-10 07:05 | NURSING ---
CALLED [facility], ETA IS 60 MIN
--- NOTE | 2023-01-10 08:34 | NURSING ---
CALLED [facility], ETA IS ANOTHER 15 MIN
--- NOTE | 2023-01-10 09:11 | HP.PCM.HOS_ITS ---
HPI - General General Date of Admission: 01/10/23 Date of Service: 01/10/23 Chief Complaint: weakness HPI Narrative ANJEL LOPEZ, is a 72 M with a PMH as outlined who presents via the ED on 01/10/2023 with a complaint of weakness. He was brought in from his assisted living facility for generalised weakness and debility. He had recently been seen in our ED for weakness and lethargy and imaging was concerning for NPH and found to have elevated valproic acid levels. He was transferred to [facility] where his symptoms were thought to be due to his elevated valproic acid level, and not NPH. His dose of valproic acid levels were adjusted and he was discharged back to his Assisted Living Facility, from where he presented to the ED this time. He denied any headache, blurred vision, chest pain, palpitations, dizziness, nausea or vomiting or diarrhea or any other symptoms. Review of systems was otherwise negative. He was hemodynamically stable. Vitals in the ED were blood pressure 133/83, pulse rate of 64 respiratory rate of 17 with oxygen saturation of 96% on room air. CBC showed hemoglobin of 12.3 with WBC of 10.4 and platelets of 168. Chemistry was unremarkable and urinalysis showed no evidence of UTI. Chest x-ray showed no acute cardiopulmonary process. Patient was with physical therapy in the ED and plan was to discharge him back to his facility. However the assisted living facility staff refused to take him back because they were concerned he wouldnt be safe in the facility. He is therefore been admitted to be managed for debility and generalized weakness and is for placement. [facility] Medical History Anxiety Benign essential HTN BPH (benign prostatic hyperplasia) BPH (benign prostatic hyperplasia) Cancer Cardiology follow-up encounter Depression Easy bruising Epilepsy Gastric reflux Gout History of colon cancer History of echocardiogram History of edema History of seizure History of stress test Hyperlipemia Hypothyroid Leg cramps Loose, teeth Non-smoker Pure hypercholesterolemia Restless legs Schizophrenia Seizure disorder Shortness of breath on exertion Sleep apnea Walker as ambulation aid Wears glasses Home Medications alendronate 70 mg tablet 70 mg PO LEON OSTEOPOROSIS 12/07/16 [History Last Taken 01/03/23] allopurinol 100 mg tablet 100 mg PO QHS GOUT 12/07/16 [History Last Taken 01/03/23] atorvastatin 40 mg tablet 40 mg PO QHS CHOLESTEROL 12/07/16 [History Last Taken 01/03/23] clopidogrel 75 mg tablet 75 mg PO DAILY ANTIPLATELET 12/07/16 [History Last Taken 01/04/23] finasteride 5 mg tablet 5 mg PO DAILY PROSTATE 12/07/16 [History Last Taken 01/04/23] levothyroxine 50 mcg tablet 50 mcg PO DAILY THYROID 12/07/16 [History Last Taken 01/04/23] ascorbic acid (vitamin C) 500 mg capsule 500 mg PO DAILY@1200 SUPPLEMENT 03/17/19 [History Last Taken 01/04/23] montelukast 10 mg tablet 10 mg PO QHS ALLERGIES 03/17/19 [History Last Taken 01/03/23] pantoprazole 40 mg tablet,delayed release 40 mg PO DAILY ACID REFLUX 03/17/19 [History Last Taken 01/04/23] cholecalciferol (vitamin D3) 50 mcg (2,000 unit) capsule 2,000 unit PO DAILY SUPPLEMENT 07/11/19 [History Last Taken 01/03/23] magnesium oxide 400 mg (241.3 mg magnesium) tablet 400 mg PO QHS SUPPLEMENT 07/11/19 [History Last Taken 01/03/23] potassium chloride 20 mEq tablet,extended release(part/cryst) 20 meq PO BID SUPPLEMENT 07/11/19 [History Last Taken 01/04/23] ropinirole 1 mg tablet 1 mg PO TID SEIZURES 07/11/19 [History Last Taken 01/04/23] loratadine 10 mg capsule 10 mg PO QHS 07/15/20 [History Last Taken 01/03/23] olanzapine 5 mg disintegrating tablet 10 mg PO QHS DEPRESSION 07/15/20 [History Last Taken 01/03/23] spironolactone 25 mg tablet 25 mg PO QODAY DIURETIC 07/15/20 [History Last Taken 01/09/23 09:31] venlafaxine 150 mg capsule,extended release 24 hr 150 mg PO DAILY DEPRESSION 07/15/20 [History Last Taken 01/04/23] valproic acid (as sodium salt) 250 mg/5 mL oral solution 1,000 mg PO TID 07/01/22 [History Last Taken 01/04/23] bumetanide 1 mg tablet 2 mg PO DAILY DIURETIC 01/04/23 [History Last Taken 01/04/23] levetiracetam 750 mg tablet 1,500 mg PO BID seizures 01/04/23 [History Last Taken 01/04/23] acetaminophen 325 mg tablet 1,300 mg PO BID 01/10/23 [History Last Taken Unknown] alfuzosin 10 mg tablet,extended release 24 hr 10 mg PO QHS urinary urgency 01/10/23 [History Last Taken Unknown] ferrous gluconate 270 mg (27 mg iron) tablet 270 mg PO DAILY supplement 01/10/23 [History Last Taken Unknown] omega 5-mum-vvf-fish oil 1,000 mg (120 mg-180 mg) capsule 1 cap PO BID 01/10/23 [History Last Taken Unknown] pregabalin 200 mg capsule 200 mg PO TID 01/10/23 [History Last Taken Unknown] sucralfate 1 gram tablet 1 g PO TIDCM 01/10/23 [History Last Taken Unknown] Allergy/AdvReac Type Severity Reaction Status Date / Time aspirin Allergy cant Verified 01/10/23 01:40 remember rxn nickel Allergy Other Verified 01/10/23 01:40 oxcarbazepine Allergy cant Verified 01/10/23 01:40 [From Trileptal] remember rxn Family History Mother COPD (chronic obstructive pulmonary disease) CAD (coronary artery disease) Father Cancer lung Heart disease Myocardial infarction CAD (coronary artery disease) Aunt CAD (coronary artery disease) Myocardial infarction Surgical History History of cataract extraction History of cholecystectomy History of right hip replacement Social History household members: none housing: assisted living facility Smoking Status: Never smoker alcohol intake: never substance use type: does not use caffeine: Yes Type: carbonated beverages Number of servings: 3 ROS Constitutional Constitutional: Reports fatigue, malaise and weakness; Denies anorexia, chills or fever(s) Eyes Eyes: Denies change in vision ENT HEENT: Denies dysphagia, headache(s) or sore throat Cardiovascular Cardiovascular: Denies dyspnea on exertion, edema, lightheadedness, orthopnea, palpitations, paroxysmal nocturnal dyspnea or rapid heart rate Respiratory/Chest Respiratory/Chest: Denies cough, dyspnea, shortness of breath at rest, shortness of breath with exertion or wheezing Gastrointestinal Gastrointestinal: Denies abdominal pain, constipation, diarrhea, melena, nausea or vomiting Genitourinary Genitourinary: Denies dysuria, nocturia or urinary frequency Musculoskeletal Musculoskeletal: Denies arthralgias, back pain, joint swelling, myalgias or neck pain Neurologic Neurologic: Denies confusion, dizziness, focal weakness, headache(s), numbness, seizures or syncope Psychiatric Psychiatric: Denies anxiety Endocrine Endocrinology: Denies change in body appearance Hematologic/Lymphatic Hematologic/Lymphatic: Denies anemia Vital Signs Vital Signs Vital Signs: 01/10/23 01:40 01/10/23 01:41 01/10/23 06:59 Temperature 98 F Temperature Source Temporal Pulse Rate 111 H 64 Respiratory Rate 14 17 Respiratory Effort Normal Non-Labored Blood Pressure 120/75 133/83 H Blood Pressure Mean 90 99 Pulse Ox 93 96 Oxygen Delivery Method Room Air Room Air Weight Weight: 199 lb 8.293 oz Body Mass Index (BMI) 35.3 Physical Exam Const alert, oriented x3 and no apparent distress Constitutional Narrative: frail, stooped over General Appearance: cooperative HEENT normocephalic, head/scalp atraumatic, hearing grossly normal bilaterally and moist oral mucous membranes Mouth: oral and palatal mucosa normal Eyes PERRL, EOMs intact bilaterally and conjunctivae normal Neck no lymphadenopathy and supple Resp normal respiratory effort, no retractions, no use of accessory muscles and clear to auscultation bilaterally Cardio regular rate, regular rhythm, S1 normal heart sound, S2 normal heart sound and no murmurs GI normal to inspection, nondistended, normoactive bowel sounds, soft to palpation, non-tender and non-distended Extremity normal to inspection and full ROM Neuro oriented x3, CN's II-XII intact bilaterally, moves all extremities and no focal motor deficits Sensorium / Orientation: awake and alert Motor Exam: strength 5/5 throughout Psych affect normal Results Lab / Micro Data Result Diagrams: 01/10/23 03:05 01/10/23 03:05 Labs: Laboratory Results - last 24 hr 01/10/23 03:05: WBC 10.4, RBC 3.68 L, Hgb 12.3 L, Hct 37.6 L, MCV 102.2 H, MCH 33.4 H, MCHC 32.7, RDW Std Deviation 49.0 H, RDW Coeff of Ronna 13.1, Plt Count 168, MPV 8.4, Immature Gran % (Auto) 1.400 H, Neut % (Auto) 53.9, Lymph % (Auto) 25.6, [place] % (Auto) 16.6 H, Eos % (Auto) 1.7, Baso % (Auto) 0.8, Absolute Neuts (auto) 5.6, Absolute Lymphs (auto) 2.65, Nucleated RBC % 0, Macrocytosis 2+ 01/10/23 03:05: Sodium 139, Potassium 4.3, Chloride 105, Carbon Dioxide 29.0, Anion Gap 5, BUN 12, Creatinine 0.80, Estim Creat Clear Calc 66.19, Est GFR (MDRD) Af Amer 122, Est GFR (MDRD) Non-Af 101, BUN/Creatinine Ratio 15.0, Glucose 83, Calcium 9.0, Troponin I High Sens 6 01/10/23 03:21: Valproic Acid 80 01/10/23 03:22: Urine Color Yellow, Urine Clarity Clear, Urine pH 6.0, Ur Specific [place] 1.015, Urine Protein 15 H, Urine Glucose (UA) Normal, Urine Ketones 5 H, Urine Occult Blood 25 H, Urine Nitrite Negative, Urine Bilirubin Negative, Urine Urobilinogen Normal, Ur Leukocyte Esterase Negative, Urine RBC 0 SEEN, Urine WBC 0 SEEN, Ur Squamous Epith Cells 0 SEEN, Urine Bacteria 0 SEEN, Hyaline Casts 0-5 SEEN, Urine Mucus 0 SEEN Rhythm Strip Rhythm Strip: Sinus Tach Rate: 105 Ectopy: None Radiology Impression Chest X-Ray 01/10/23 03:31 IMPRESSION: No acute findings in the chest. Electronically Signed: Alban Marin MD at 4:01 EDT Reading Location ID and State: [facility] / [place] , Service support , Assessment & Plan Assessment/Plan (1) Weakness: PLAN: Plan #Debility and weakness * admit to med surg * CBC and BMP are unremarkable * consult PT/OT * fall precautions * Assisted Living Facility refusing to take him back. * will need placement * #History of seizures: On valproic acid and Keppra #Hyperlipidemia: On statin #History of gout: On allopurinol #Hypothyroidism: On Synthroid. Check TSH #Depression: On olanzapine and venlafaxine #History of ataxia: * There was concern that he had NPH and so was transferred [facility] recently. * He was reviewed there and the symptoms were not thought to be due to NPH but rather due to elevated lipoic acid levels. * PT OT on board. For precautions. #Hypertension: On spironolactone and Bumex DVT prophylaxis: Lovenox CODE STATUS:DNRCCA no intubation * Patient counseled extensively about different types of CODE STATUS including full code, DNR CCA and DNR CCA. Patient elects to be DNRCCA . This was confirmed from documentation he brought from [facility]. * Total [id number] time 17 minutes. Total time spent on evaluation and management of patient, reviewing chart, discussing plan with patient, discussion with nursing and ancillary staff as well as documentation: 60 mins Charges/Coding Visit Charges Inpatient E&M: 47931 Init Hosp L2 Procedures Hospitalists Procedures: 71033 Advncd Care Plan 30 Min
--- NOTE | 2023-01-10 09:20 | NURSING ---
MED SURG OBS FLAVIA BOWEN, FAILURE TO THRIVE
[2023-01-10 09:36] VITALS: BP 107/54; PULSE 76; RESP 16; TEMP 36.7; O2SAT 97
[2023-01-10 10:23] VITALS: BMI 35.3
[2023-01-10 10:50] VITALS: BP 109/67; PULSE 92; RESP 18; TEMP 36.4; O2SAT 98
[2023-01-10] MEDS: 0.9% Normal Saline 1,000 ML 75 ML IV (13:31)
[2023-01-10] MEDS: Pramipexole Di-HCl 0.5 MG Tablet PO ×3 (13:40→20:01)
[2023-01-10] MEDS: Pregabalin 50 MG Capsule 200 MG PO ×2 (13:40→20:05)
[2023-01-10] MEDS: Potassium Chloride Oral Tablet 20 MEQ PO (16:10)
[2023-01-10] MEDS: Sucralfate 1 GM Tablet PO (16:11)
[2023-01-10 16:43] VITALS: BP 132/47; PULSE 92; RESP 18; TEMP 36.5; O2SAT 100
[2023-01-10] MEDS: Alendronate Sodium 70 MG Tablet PO (17:05)
[2023-01-10] MEDS: Montelukast 10 MG Tablet PO (20:01)
[2023-01-10] MEDS: levETIRAcetam 750 MG Tablet 1500 MG PO (20:01)
[2023-01-10] MEDS: Loratadine 10 MG Tablet PO (20:01)
[2023-01-10] MEDS: OLANZapine 10 MG Tablet PO (20:02)
[2023-01-10] MEDS: Valproic Acid 250 MG/5 ML UDC 1000 MG PO (20:02)
[2023-01-10] MEDS: Magnesium Chloride 64 MG Delay Rel.Tablet 128 MG PO (20:02)
[2023-01-10] MEDS: Atorvastatin Calcium 40 MG Tablet PO (20:02)
[2023-01-10] MEDS: Allopurinol 100 MG Tablet PO (20:02)
[2023-01-10] MEDS: Tamsulosin HCl 0.4 MG Capsule PO (20:02)
[2023-01-10 20:48] VITALS: BP 144/73; PULSE 96; RESP 18; TEMP 36.9; O2SAT 96
[2023-01-11] MEDS: Menthol/Lanolin/Calamine/Znox 113 GM Tube 1 APPLIC TOPICAL (02:17)
[2023-01-11 02:35] VITALS: BP 113/88; PULSE 96; RESP 18; TEMP 36.8; O2SAT 96
[2023-01-11 05:13] LABS: Absolute Lymphocyte Count 2.28 X10^3/uL (0.83-4.51); Absolute Neutrophil Count 2.9 X10^3/uL (2.0-7.7); Basophil# 0.04 X10^3/uL; Basophil% 0.6 % (0-1); Eosinophil# 0.16 X10^3/uL; Eosinophils% 2.5 % (0-5); Hematocrit 33.8 % (40-54); Hemoglobin 10.7 g/dL (13.0-16.5); Lymphocyte # 2.28 X10^3/ul (0.83-4.51); Lymphocyte % 35.5 % (19-41); Mean Corp Hgb Conc 31.7 g/dL (32-36); Mean Corpuscular Hgb 33.1 pg (27.0-32.0); Mean Corpuscular Volume 104.6 fL (80-94); Mean Platelet Vol. 8.6 fl (6.2-12.0); Monocyte# 1.03 X10^3/uL; NRBC Flagged by Analyzer 0 % (0-5); Neutrophil # 2.88 X10^3/uL (2.7-7.7); Neutrophil % 44.8 % (47-70); Platelet Count 191 K/mm3 (150-450); RBC Distribution Width CV 13.1 % (11.6-14.6); RBC Distribution Width SD 50.3 fl (35.1-43.9); Red Blood Count 3.23 M/mm3 (4.6-6.2); White Blood Count 6.4 K/mm3 (4.4-11.0)
[2023-01-11 05:32] LABS: Anion Gap 2 (5-15); BUN 18 mg/dL (7-18); BUN/Creat Ratio 35.8 RATIO (10-20); Calcium,Total 9.1 mg/dL (8.5-10.1); Chloride 108 mmol/L (98-107); EST Glomerular Filtration Rate 172 mL/min (>60); Est Glom Filt Rate - Afr Amer 208 mL/min (>60); Estimated Creatinine Clearance 52.95 ml/min; Glucose 119 mg/dL (74-106); Potassium 3.9 mmol/L (3.5-5.1); Sodium Level 141 mmol/L (136-145)
[2023-01-11] MEDS: Levothyroxine 50 MCG Tablet PO (05:48)
[2023-01-11] MEDS: Valproic Acid 250 MG/5 ML UDC 1000 MG PO ×3 (05:49→22:55)
[2023-01-11] MEDS: Sucralfate 1 GM Tablet PO ×3 (05:50→15:10)
[2023-01-11] MEDS: Pregabalin 50 MG Capsule 200 MG PO ×3 (05:51→22:52)
--- NOTE | 2023-01-11 07:21 | PCM.PN.HOSP ---
Reason for Visit Reason for Visit: Diagnoses Weakness (01/10/23) Subjective Subjective Laying in bed, no acute distress. Reports he has some chronic lower extremity pain and swelling and shakiness. Denies increased shortness of breath. Denied any acute complaints Objective Data Objective Data Vital Signs: Vital Signs Temp Pulse Resp BP Pulse Ox O2 Del Method 98.3 F 96 18 113/88 H 96 Room Air 01/11/23 02:35 01/11/23 02:35 01/11/23 02:35 01/11/23 02:35 01/11/23 02:35 01/11/23 02:35 Oxygen Delivery Method Room Air Weight: 90.5 kg Body Mass Index (BMI) 35.3 Intake & Output: Intake and Output for Last 24 Hours 01/09/23 01/10/23 01/11/23 23:59 23:59 23:59 Intake Total 1300 / 1300 Balance 1300 / 1300 Lab / Micro Data Result Diagrams: 01/11/23 04:50 01/11/23 04:50 Labs: Laboratory Results - last 24 hr 01/11/23 04:50: WBC 6.4, RBC 3.23 L, Hgb 10.7 L, Hct 33.8 L, MCV 104.6 H, MCH 33.1 H, MCHC 31.7 L, RDW Std Deviation 50.3 H, RDW Coeff of Ronna 13.1, Plt Count 191, MPV 8.6, Immature Gran % (Auto) 0.600, Neut % (Auto) 44.8 L, Lymph % (Auto) 35.5, Elliott % (Auto) 16.0 H, Eos % (Auto) 2.5, Baso % (Auto) 0.6, Absolute Neuts (auto) 2.9, Absolute Lymphs (auto) 2.28, Nucleated RBC % 0 01/11/23 04:50: Sodium 141, Potassium 3.9, Chloride 108 H, Carbon Dioxide 31.0, Anion Gap 2 L, BUN 18, Creatinine 0.50 L, Estim Creat Clear Calc 52.95, Est GFR (MDRD) Af Amer 208, Est GFR (MDRD) Non-Af 172, BUN/Creatinine Ratio 35.8 H, Glucose 119 H, Calcium 9.1 Rhythm Strip Rhythm Strip: Sinus Tach Rate: 105 Ectopy: None Physical Exam Narrative General: Alert HEENT: Atraumatic Eyes: Anicteric, normal conjunctiva, extraocular movements grossly intact Neck: Supple Respiratory: Clear to auscultation bilaterally, normal respiratory effort Cardiovascular: Regular rate and rhythm GI: Soft, nontender, nondistended Extremities: Trace to 1+ lower extremity edema Musculoskeletal: Moving all extremities Neuro: Has what appeared to be some chronic tremors Skin: No rashes appreciated Psych: Cooperative Assessment & Plan Assessment/Plan (1) Weakness: PLAN: Plan #Debility and weakness -Pt very weak and assisted living did not feel he was safe for their facility after his d/c from [facility] -PT recommends rehab/snf/tcu -Given mental health history will have to be evaluated prior to transfer to facility #History of seizures: On valproic acid and Keppra. Check Depakote level in the a.m. #Hyperlipidemia: On statin #History of gout: On allopurinol #Hypothyroidism: On Synthroid. #Hx schizophrenia: On olanzapine and venlafaxine #hx KYA per documentation -CPAP qhs ordered #History of ataxia: -there was concern that he had NPH and so was transferred [facility] recently. -He was reviewed there and the symptoms were not thought to be due to NPH but rather due to elevated VPA acid levels. -PT OT on board. Fall precautions. #Hypertension: On spironolactone and Bumex DVT prophylaxis: Lovenox sub q Total time spent on evaluation and management of patient, reviewing chart, discussing plan with patient, discussion with nursing and ancillary staff as well as documentation: 30 mins Charges/Coding Visit Charges Inpatient E&M: 19627 Subs Hosp L2
[2023-01-11] MEDS: Spironolactone 25 MG Tablet PO (08:22)
[2023-01-11] MEDS: Potassium Chloride Oral Tablet 20 MEQ PO ×2 (08:22→15:10)
[2023-01-11] MEDS: Clopidogrel Bisulfate 75 MG Tablet PO (08:22)
[2023-01-11] MEDS: Bumetanide 2 MG Tablet PO (08:23)
[2023-01-11] MEDS: Venlafaxine XR 150 MG Capsule PO (08:23)
[2023-01-11] MEDS: Enoxaparin 40 MG/0.4 ML Syringe SC (08:23)
[2023-01-11] MEDS: levETIRAcetam 750 MG Tablet 1500 MG PO ×2 (08:23→22:53)
[2023-01-11] MEDS: Pantoprazole Sodium 40 MG Tablet PO (08:23)
[2023-01-11] MEDS: Finasteride 5 MG Tablet PO (08:24)
[2023-01-11] MEDS: Cholecalciferol (VIT D3) 25 MCG TABLET (1,000 UNITS) 50 MCG PO (08:24)
[2023-01-11 08:35] VITALS: BP 100/66; PULSE 89; RESP 16; TEMP 36.8; O2SAT 98
--- NOTE | 2023-01-11 10:40 | CASEMGMT ---
Addendum entered by Luz Gilmore 01/11/23 12:02: Pt requesting sister Cha be notified of discharge plan. Phone call to Cha and update provided. Cha agreeable to discharge to [facility] when precert is obtained. Plan: [facility], pending precert ALYSSA Ivan Addendum entered by Luz Gilmore 01/11/23 10:59: [facility] is able to accept pt. SW requested precert to be started at this time. Pt updated. ALYSSA Ivan Original Note: Social Work SW received referral for SNF. Pt currently lives at [facility] who states they cannot accomodate him at current level of care. Pt admitted for placement at SNF. SW met [facility] pt and introduced self and role of SW. Pt agreeable to SNF placement. A list of SNF providers including quality and resource use data and consistent with the patient?s preferred geographic region, medical needs, and insurance network were provided from the CarePort Guide. Pt preferred provider is [facility]. Referral sent to [facility] via careport. SW will await determination of acceptance. ALYSSA Ivan
[2023-01-11] MEDS: Ferrous Sulfate 325 MG Tablet PO (11:10)
[2023-01-11] MEDS: Ascorbic Acid 500 MG Tablet PO (11:10)
--- NOTE | 2023-01-11 11:20 | CASEMGMT ---
BYRON CM in to discuss GARZA form with patient. RN CM explained GARZA form, patient voiced understanding. Pt signed form and filed in chart. Pt provided with a copy of signed GARZA form. Patient had no further questions or concerns at this time.
[2023-01-11] MEDS: Pramipexole Di-HCl 0.5 MG Tablet PO ×2 (15:10→22:53)
[2023-01-11 15:37] VITALS: BP 112/72; PULSE 88; RESP 17; TEMP 36.8; O2SAT 98
--- NOTE | 2023-01-11 16:32 | CASEMGMT ---
Addendum entered by uLz Gilmore 01/11/23 16:48: Pt, Pt's dgt and [facility] updated that pt will need evaluated by Board of DD and prior to discharge to [facility]. ALYSSA Page Original Note: Social Work Pt has been accepted to [facility]. SW completed PASRR in [facility] and noted that pt has a diagnosis of schizophrenia, depression and anxiety. DARLENE reviewed pt medical record which indicates pt was brought to the emergency department in August 2022 due to suicidal ideation. Pt was assessed by crisis team at that time and it was deemed pt would benefit from Inpatient psychiatric placement. DARLENE spoke with pt sister Cha who assisted in answering the remaining questions on PASRR in regard to mental health treatment. Pt does have a diagnosis of Seizure Disorder that will be indefinite. Pt will need evaluated by the Board of DD and the Mental Health Board prior to admission to a nursing facility based on the above information. PASRR submitted as well as supporting documentation. Pt will remain in the hospital until evaluations are complete. [facility] updated. ALYSSA Ivan
[2023-01-11 19:52] VITALS: BP 100/61; PULSE 88; RESP 16; TEMP 37.1; O2SAT 98
[2023-01-11] MEDS: Allopurinol 100 MG Tablet PO (22:53)
[2023-01-11] MEDS: Montelukast 10 MG Tablet PO (22:53)
[2023-01-11] MEDS: Atorvastatin Calcium 40 MG Tablet PO (22:53)
[2023-01-11] MEDS: Loratadine 10 MG Tablet PO (22:53)
[2023-01-11] MEDS: Tamsulosin HCl 0.4 MG Capsule PO (22:53)
[2023-01-11] MEDS: Magnesium Chloride 64 MG Delay Rel.Tablet 128 MG PO (22:53)
[2023-01-11] MEDS: OLANZapine 10 MG Tablet PO (22:57)
[2023-01-12 04:00] VITALS: BP 132/67; PULSE 108; RESP 18; TEMP 36.8; O2SAT 95
[2023-01-12] MEDS: Menthol/Lanolin/Calamine/Znox 113 GM Tube 1 APPLIC TOPICAL (04:32)
[2023-01-12] MEDS: Pregabalin 50 MG Capsule 200 MG PO ×3 (05:45→21:22)
[2023-01-12] MEDS: Pramipexole Di-HCl 0.5 MG Tablet PO ×3 (05:46→21:23)
[2023-01-12] MEDS: Levothyroxine 50 MCG Tablet PO (05:46)
[2023-01-12] MEDS: Sucralfate 1 GM Tablet PO ×3 (05:46→15:03)
[2023-01-12] MEDS: Valproic Acid 250 MG/5 ML UDC 1000 MG PO ×3 (05:46→21:22)
[2023-01-12 05:48] LABS: Absolute Lymphocyte Count 2.38 X10^3/uL (0.83-4.51); Absolute Neutrophil Count 2.2 X10^3/uL (2.0-7.7); Basophil# 0.05 X10^3/uL; Basophil% 0.9 % (0-1); Eosinophil# 0.15 X10^3/uL; Eosinophils% 2.6 % (0-5); Hematocrit 36.1 % (40-54); Hemoglobin 11.5 g/dL (13.0-16.5); Lymphocyte # 2.38 X10^3/ul (0.83-4.51); Lymphocyte % 40.6 % (19-41); Mean Corp Hgb Conc 31.9 g/dL (32-36); Mean Corpuscular Volume 103.7 fL (80-94); Mean Platelet Vol. 8.5 fl (6.2-12.0); Monocyte# 1.05 X10^3/uL; Monocyte% 17.9 % (0-10); NRBC Flagged by Analyzer 0 % (0-5); Neutrophil # 2.19 X10^3/uL (2.7-7.7); Neutrophil % 37.3 % (47-70); Platelet Count 236 K/mm3 (150-450); RBC Distribution Width CV 13.4 % (11.6-14.6); RBC Distribution Width SD 50.9 fl (35.1-43.9); Red Blood Count 3.48 M/mm3 (4.6-6.2); White Blood Count 5.9 K/mm3 (4.4-11.0)
[2023-01-12 06:37] LABS: Valproic Acid (Depakene) Level 84 ug/mL (50-100)
[2023-01-12 06:42] LABS: Anion Gap 1 (5-15); BUN 16 mg/dL (7-18); Calcium,Total 9.3 mg/dL (8.5-10.1); Chloride 107 mmol/L (98-107); Creatinine, Serum 0.53 mg/dL (0.70-1.30); EST Glomerular Filtration Rate 161 mL/min (>60); Est Glom Filt Rate - Afr Amer 194 mL/min (>60); Estimated Creatinine Clearance 52.95 ml/min; Glucose 97 mg/dL (74-106); Sodium Level 140 mmol/L (136-145)
[2023-01-12] MEDS: Potassium Chloride Oral Tablet 20 MEQ PO ×2 (08:32→15:03)
[2023-01-12] MEDS: Enoxaparin 40 MG/0.4 ML Syringe SC (08:32)
[2023-01-12] MEDS: Finasteride 5 MG Tablet PO (08:32)
[2023-01-12] MEDS: Venlafaxine XR 150 MG Capsule PO (08:33)
[2023-01-12] MEDS: levETIRAcetam 750 MG Tablet 1500 MG PO ×2 (08:33→21:23)
[2023-01-12] MEDS: Clopidogrel Bisulfate 75 MG Tablet PO (08:33)
[2023-01-12] MEDS: Bumetanide 2 MG Tablet PO (08:34)
[2023-01-12] MEDS: Pantoprazole Sodium 40 MG Tablet PO (08:34)
[2023-01-12] MEDS: Cholecalciferol (VIT D3) 25 MCG TABLET (1,000 UNITS) 50 MCG PO (08:34)
[2023-01-12 08:35] VITALS: BP 108/65; PULSE 82; RESP 16; TEMP 36.8; O2SAT 98
--- NOTE | 2023-01-12 08:53 | PCM.PN.HOSP ---
Reason for Visit Reason for Visit: Diagnoses Weakness (01/10/23) Subjective Subjective Sitting up in chair in no acute distress, did not voice any complaints today Objective Data Objective Data Vital Signs: Vital Signs Temp Pulse Resp BP Pulse Ox O2 Del Method 98.3 F 108 H 18 132/67 H 95 Room Air 01/12/23 04:00 01/12/23 04:00 01/12/23 04:00 01/12/23 04:00 01/12/23 04:00 01/12/23 04:00 Oxygen Delivery Method Room Air Weight: 90.5 kg Body Mass Index (BMI) 35.3 Intake & Output: Intake and Output for Last 24 Hours 01/10/23 01/11/23 01/12/23 23:59 23:59 23:59 Intake Total 1900 / 1900 Output Total 600 / 600 Balance 1300 / 1300 Lab / Micro Data Result Diagrams: 01/12/23 05:35 01/12/23 05:35 Labs: Laboratory Results - last 24 hr 01/12/23 05:35: WBC 5.9, RBC 3.48 L, Hgb 11.5 L, Hct 36.1 L, MCV 103.7 H, MCH 33.0 H, MCHC 31.9 L, RDW Std Deviation 50.9 H, RDW Coeff of Ronna 13.4, Plt Count 236, MPV 8.5, Immature Gran % (Auto) 0.700, Neut % (Auto) 37.3 L, Lymph % (Auto) 40.6, [place] % (Auto) 17.9 H, Eos % (Auto) 2.6, Baso % (Auto) 0.9, Absolute Neuts (auto) 2.2, Absolute Lymphs (auto) 2.38, Nucleated RBC % 0 01/12/23 05:35: Sodium 140, Potassium 4.0, Chloride 107, Carbon Dioxide 32.0, Anion Gap 1 L, BUN 16, Creatinine 0.53 L, Estim Creat Clear Calc 52.95, Est GFR (MDRD) Af Amer 194, Est GFR (MDRD) Non-Af 161, BUN/Creatinine Ratio 30.0 H, Glucose 97, Calcium 9.3 01/12/23 05:35: Valproic Acid 84 01/12/23 05:35: Ammonia 35.0 H Rhythm Strip Rhythm Strip: Sinus Tach Rate: 105 Ectopy: None Physical Exam Narrative General: Alert HEENT: Atraumatic Eyes: Anicteric, normal conjunctiva, extraocular movements grossly intact Neck: Supple Respiratory: Clear to auscultation bilaterally, normal respiratory effort Cardiovascular: Regular rate and rhythm GI: Soft, nontender, nondistended Extremities: Trace to 1+ lower extremity edema Musculoskeletal: Moving all extremities Neuro: Has what appeared to be some chronic tremors Skin: No rashes appreciated Psych: Cooperative Assessment & Plan Assessment/Plan (1) Weakness: PLAN: Plan #Debility and weakness -Pt very weak and assisted living did not feel he was safe for their facility after his d/c from [facility] -PT recommends rehab/snf/tcu -Given mental health history will have to be evaluated prior to transfer to facility -01/12: Awaiting placement #History of seizures -On valproic acid and Keppra. -01/12: Depakote level 84, would recommend checking again in 1 to 2 weeks to verify no significant abnormalities. Additionally ammonia 34, lower than it had been in the past but with his tremors will give dose of lactulose #Hyperlipidemia -On statin #History of gout -On allopurinol #Hypothyroidism -On Synthroid. #Hx schizophrenia -On olanzapine and venlafaxine #hx KYA per documentation -CPAP qhs ordered #History of ataxia: -there was concern that he had NPH and so was transferred [facility] recently. -He was reviewed there and the symptoms were not thought to be due to NPH but rather due to elevated VPA acid levels. -PT OT on board. Fall precautions. #Hypertension -On spironolactone and Bumex DVT prophylaxis: Lovenox sub q Total time spent on evaluation and management of patient, reviewing chart, discussing plan with patient, discussion with nursing and ancillary staff as well as documentation: 30 mins Charges/Coding Visit Charges Inpatient E&M: 10294 Subs Hosp L2
[2023-01-12] MEDS: Lactulose 20 GM/30 ML UDC PO (09:46)
[2023-01-12] MEDS: Ascorbic Acid 500 MG Tablet PO (11:21)
[2023-01-12] MEDS: Ferrous Sulfate 325 MG Tablet PO (11:21)
--- NOTE | 2023-01-12 13:52 | CHAPLAIN ---
Type of Pastoral Visit _x__ Initial Visit ___ Follow-up Visit ___ On-call Visit ___ General Patient Visit ___ Spiritual Assessment ___ Family Conference ___ Bereavement ___ Rapid Response ___ Code Blue ___ Other (describe below) Pastoral Care Referral From _x__ Patient ___ Family ___ Nurse ___ Physician ___ Camera Machinist ___ Environmental Planner ___ Other (describe below) Sacrament/Intervention _x__ Active listening ___ Anointing ___ Orthodoxy ___ Bereavement ___ Communion ___ Kim exploration ___ ___ Life review _x__ Prayer ___ Reconciliation ___ Sacrament of Sick _x__ Supportive presence ___ Wedding ___ Other (describe below) Pastoral Comments patient was seen recently during previous admission in this hospital; pt acknowledges this weblogic developer as he is finishing his lunch; offer of support received; pt answers questions but does not engage in a conversation; pt welcomes presence and prayer but dialog does not happen
[2023-01-12 15:18] VITALS: BP 109/71; PULSE 101; RESP 18; TEMP 36.8; O2SAT 94
[2023-01-12 21:09] VITALS: BP 105/48; PULSE 107; RESP 16; TEMP 36.8; O2SAT 95
[2023-01-12] MEDS: Atorvastatin Calcium 40 MG Tablet PO (21:23)
[2023-01-12] MEDS: Tamsulosin HCl 0.4 MG Capsule PO (21:23)
[2023-01-12] MEDS: Allopurinol 100 MG Tablet PO (21:23)
[2023-01-12] MEDS: Loratadine 10 MG Tablet PO (21:23)
[2023-01-12] MEDS: OLANZapine 10 MG Tablet PO (21:23)
[2023-01-12] MEDS: Magnesium Chloride 64 MG Delay Rel.Tablet 128 MG PO (21:23)
[2023-01-12] MEDS: Montelukast 10 MG Tablet PO (21:23)
[2023-01-13 03:09] VITALS: BP 114/61; PULSE 105; RESP 16; TEMP 36.6; O2SAT 94
[2023-01-13] MEDS: Valproic Acid 250 MG/5 ML UDC 1000 MG PO ×3 (06:50→22:08)
[2023-01-13] MEDS: Pramipexole Di-HCl 0.5 MG Tablet PO ×3 (06:50→22:09)
[2023-01-13] MEDS: Sucralfate 1 GM Tablet PO ×3 (06:50→15:03)
[2023-01-13] MEDS: Levothyroxine 50 MCG Tablet PO (06:50)
[2023-01-13] MEDS: Pregabalin 50 MG Capsule 200 MG PO ×3 (06:50→22:07)
[2023-01-13 07:49] VITALS: BP 92/46; PULSE 89; RESP 14; TEMP 36.8; O2SAT 96
[2023-01-13] MEDS: Enoxaparin 40 MG/0.4 ML Syringe SC (08:58)
[2023-01-13] MEDS: Venlafaxine XR 150 MG Capsule PO (08:58)
[2023-01-13] MEDS: Bumetanide 2 MG Tablet PO (08:58)
[2023-01-13] MEDS: levETIRAcetam 750 MG Tablet 1500 MG PO ×2 (08:58→22:08)
[2023-01-13] MEDS: Potassium Chloride Oral Tablet 20 MEQ PO ×2 (08:58→17:16)
[2023-01-13] MEDS: Pantoprazole Sodium 40 MG Tablet PO (08:59)
[2023-01-13] MEDS: Clopidogrel Bisulfate 75 MG Tablet PO (08:59)
[2023-01-13] MEDS: Finasteride 5 MG Tablet PO (08:59)
[2023-01-13] MEDS: Cholecalciferol (VIT D3) 25 MCG TABLET (1,000 UNITS) 50 MCG PO (09:02)
[2023-01-13] MEDS: Spironolactone 25 MG Tablet PO (09:02)
[2023-01-13 09:23] LABS: Valproic Acid (Depakene) Level 97 ug/mL (50-100)
--- NOTE | 2023-01-13 09:56 | PN.HOSP_ITS ---
Reason for Visit Reason for Visit: Diagnoses Weakness (01/10/23) Subjective Subjective Laying in bed, was having some back pain but after repositioning, he reported it was better Objective Data Objective Data Vital Signs: Vital Signs Temp Pulse Resp BP Pulse Ox O2 Del Method 98.2 F 89 14 92/46 L 96 Room Air 01/13/23 07:49 01/13/23 07:49 01/13/23 07:49 01/13/23 07:49 01/13/23 07:49 01/13/23 08:18 Oxygen Delivery Method Room Air Weight: 90.5 kg Body Mass Index (BMI) 35.3 Intake & Output: Intake and Output for Last 24 Hours 01/11/23 01/12/23 01/13/23 23:59 23:59 23:59 Intake Total 1900 / 1900 350 / 350 600 / 600 Output Total 600 / 600 Balance 1300 / 1300 350 / 350 600 / 600 Lab / Micro Data Result Diagrams: 01/12/23 05:35 01/12/23 05:35 Labs: Laboratory Results - last 24 hr 01/13/23 08:33: Valproic Acid 97 01/13/23 08:33: Ammonia 35.0 H Rhythm Strip Rhythm Strip: Sinus Tach Rate: 105 Ectopy: None Physical Exam Narrative General: Alert HEENT: Atraumatic Eyes: Anicteric, normal conjunctiva, extraocular movements grossly intact Neck: Supple Respiratory: Clear to auscultation bilaterally, normal respiratory effort Cardiovascular: Regular rate and rhythm GI: Soft, nontender, nondistended Extremities: Trace to 1+ lower extremity edema Musculoskeletal: Moving all extremities Neuro: Has what appeared to be some chronic tremors Skin: No rashes appreciated Psych: Cooperative Assessment & Plan Assessment/Plan (1) Weakness: PLAN: Plan #Debility and weakness -Pt very weak and assisted living did not feel he was safe for their facility after his d/c from [employer] [facility] -PT recommends rehab/snf/tcu -Given mental health history will have to be evaluated prior to transfer to facility -01/12: Awaiting placement #History of seizures -On valproic acid and Keppra. -01/12: Depakote level 84, would recommend checking again in 1 to 2 weeks to verify no significant abnormalities. Additionally ammonia 34, lower than it had been in the past but with his tremors will give dose of lactulose -01/13: Depakote level today 97, high end of therapeutic but not to toxic level, continue to monitor, may need dose adjustments. Additionally given 20 g of lactulose with ammonia 35 #Hyperlipidemia -On statin #History of gout -On allopurinol #Hypothyroidism -On Synthroid. #Hx schizophrenia -On olanzapine and venlafaxine #hx KYA per documentation -CPAP qhs ordered #History of ataxia: -there was concern that he had NPH and so was transferred [facility] recently. -He was reviewed there and the symptoms were not thought to be due to NPH but rather due to elevated VPA acid levels. -PT OT on board. Fall precautions. #Hypertension -On spironolactone and Bumex DVT prophylaxis: Lovenox sub q Total time spent on evaluation and management of patient, reviewing chart, discussing plan with patient, discussion with nursing and ancillary staff as well as documentation: 30 mins Charges/Coding Visit Charges Inpatient E&M: 54477 Subs Hosp L2
[2023-01-13 11:15] VITALS: BP 121/99; PULSE 89; RESP 16; TEMP 37.1; O2SAT 95
[2023-01-13] MEDS: Ascorbic Acid 500 MG Tablet PO (11:15)
[2023-01-13] MEDS: Ferrous Sulfate 325 MG Tablet PO (11:16)
[2023-01-13] MEDS: Lactulose 20 GM/30 ML UDC PO (11:40)
[2023-01-13 20:00] VITALS: BP 100/58; PULSE 92; RESP 18; TEMP 36.6; O2SAT 97
[2023-01-13] MEDS: OLANZapine 10 MG Tablet PO (22:08)
[2023-01-13] MEDS: Tamsulosin HCl 0.4 MG Capsule PO (22:08)
[2023-01-13] MEDS: Atorvastatin Calcium 40 MG Tablet PO (22:08)
[2023-01-13] MEDS: Allopurinol 100 MG Tablet PO (22:09)
[2023-01-13] MEDS: Montelukast 10 MG Tablet PO (22:09)
[2023-01-13] MEDS: Magnesium Chloride 64 MG Delay Rel.Tablet 128 MG PO (22:09)
[2023-01-13] MEDS: Loratadine 10 MG Tablet PO (22:09)
[2023-01-14 02:32] VITALS: BP 105/53; PULSE 76; RESP 18; TEMP 36.6; O2SAT 93
[2023-01-14] MEDS: Pramipexole Di-HCl 0.5 MG Tablet PO ×3 (06:37→21:09)
[2023-01-14] MEDS: Sucralfate 1 GM Tablet PO ×3 (06:37→16:58)
[2023-01-14] MEDS: Pregabalin 50 MG Capsule 200 MG PO ×3 (06:37→21:09)
[2023-01-14] MEDS: Valproic Acid 250 MG/5 ML UDC 1000 MG PO ×3 (06:37→21:09)
[2023-01-14] MEDS: Levothyroxine 50 MCG Tablet PO (06:37)
[2023-01-14] MEDS: Enoxaparin 40 MG/0.4 ML Syringe SC (07:48)
[2023-01-14] MEDS: levETIRAcetam 750 MG Tablet 1500 MG PO ×2 (07:49→21:09)
[2023-01-14] MEDS: Bumetanide 2 MG Tablet PO (07:49)
[2023-01-14] MEDS: Potassium Chloride Oral Tablet 20 MEQ PO ×2 (07:49→16:58)
[2023-01-14] MEDS: Clopidogrel Bisulfate 75 MG Tablet PO (07:49)
[2023-01-14] MEDS: Cholecalciferol (VIT D3) 25 MCG TABLET (1,000 UNITS) 50 MCG PO (07:49)
[2023-01-14] MEDS: Venlafaxine XR 150 MG Capsule PO (07:49)
[2023-01-14] MEDS: Finasteride 5 MG Tablet PO (07:50)
[2023-01-14] MEDS: Pantoprazole Sodium 40 MG Tablet PO (07:50)
[2023-01-14 08:01] VITALS: BP 89/52; PULSE 80; RESP 18; TEMP 36.6; O2SAT 98
--- NOTE | 2023-01-14 08:38 | PN.HOSP_ITS ---
Reason for Visit Reason for Visit: Diagnoses Weakness (01/10/23) Subjective Subjective Sitting up in the chair, doing well today Objective Data Objective Data Vital Signs: Vital Signs Temp Pulse Resp BP Pulse Ox O2 Del Method 97.9 F 80 18 89/52 L 98 Room Air 01/14/23 08:01 01/14/23 08:01 01/14/23 08:01 01/14/23 08:01 01/14/23 08:01 01/14/23 08:01 Oxygen Delivery Method Room Air Weight: 90.5 kg Body Mass Index (BMI) 35.3 Intake & Output: Intake and Output for Last 24 Hours 01/12/23 01/13/23 01/14/23 23:59 23:59 23:59 Intake Total 350 / 350 1380 / 1880 600 / 600 Balance 350 / 350 1380 / 1880 600 / 600 Lab / Micro Data Result Diagrams: 01/14/23 09:13 01/14/23 09:13 Labs: Laboratory Results - last 24 hr 01/13/23 08:33: Valproic Acid 97 01/13/23 08:33: Ammonia 35.0 H Rhythm Strip Rhythm Strip: Sinus Tach Rate: 105 Ectopy: None Physical Exam Narrative General: Alert HEENT: Atraumatic Eyes: Anicteric, normal conjunctiva, extraocular movements grossly intact Neck: Supple Respiratory: Clear to auscultation bilaterally, normal respiratory effort Cardiovascular: Regular rate and rhythm GI: Soft, nontender, nondistended Extremities: Trace to 1+ lower extremity edema Musculoskeletal: Moving all extremities Neuro: Has what appeared to be some chronic tremors Skin: No rashes appreciated Psych: Cooperative Assessment & Plan Assessment/Plan (1) Weakness: PLAN: Plan #Debility and weakness -Pt very weak and assisted living did not feel he was safe for their facility after his d/c from [employer] [facility] -PT recommends rehab/snf/tcu -Given mental health history will have to be evaluated prior to transfer to facility -01/12: Awaiting placement #History of seizures -On valproic acid and Keppra. -01/12: Depakote level 84, would recommend checking again in 1 to 2 weeks to verify no significant abnormalities. Additionally ammonia 34, lower than it had been in the past but with his tremors will give dose of lactulose -01/13: Depakote level today 97, high end of therapeutic but not to toxic level, continue to monitor, may need dose adjustments. Additionally given 20 g of lactulose with ammonia 35 #Hyperlipidemia -On statin #History of gout -On allopurinol #Hypothyroidism -On Synthroid. #Hx schizophrenia -On olanzapine and venlafaxine #hx KYA per documentation -CPAP qhs ordered #History of ataxia: -there was concern that he had NPH and so was transferred [facility] recently. -He was reviewed there and the symptoms were not thought to be due to NPH but rather due to elevated VPA acid levels. -PT OT on board. Fall precautions. #Hypertension -On spironolactone and Bumex -01/14: BP on the low end today so labs checked, white count within normal limits, kidney function roughly unchanged. Held home diuretics, suspect it may make him slightly volume down. We will check labs again in the a.m. and continue to monitor BP DVT prophylaxis: Lovenox sub q Total time spent on evaluation and management of patient, reviewing chart, discussing plan with patient, discussion with nursing and ancillary staff as well as documentation: 20 mins Charges/Coding Visit Charges Inpatient E&M: 97822 Subs Hosp L1
[2023-01-14 09:28] LABS: Absolute Lymphocyte Count 2.45 X10^3/uL (0.83-4.51); Absolute Neutrophil Count 3.8 X10^3/uL (2.0-7.7); Basophil# 0.05 X10^3/uL; Basophil% 0.7 % (0-1); Eosinophil# 0.13 X10^3/uL; Eosinophils% 1.7 % (0-5); Hematocrit 38.5 % (40-54); Hemoglobin 12.2 g/dL (13.0-16.5); Lymphocyte # 2.45 X10^3/ul (0.83-4.51); Lymphocyte % 32.8 % (19-41); Mean Corp Hgb Conc 31.7 g/dL (32-36); Mean Corpuscular Hgb 33.2 pg (27.0-32.0); Mean Corpuscular Volume 104.9 fL (80-94); Mean Platelet Vol. 8.5 fl (6.2-12.0); Monocyte% 13.4 % (0-10); NRBC Flagged by Analyzer 0 % (0-5); Neutrophil # 3.77 X10^3/uL (2.7-7.7); Neutrophil % 50.3 % (47-70); Platelet Count 229 K/mm3 (150-450); RBC Distribution Width CV 13.2 % (11.6-14.6); Red Blood Count 3.67 M/mm3 (4.6-6.2); White Blood Count 7.5 K/mm3 (4.4-11.0)
[2023-01-14 09:49] LABS: ALB/GLOB Ratio 0.8 RATIO (0.9-2.4); AST(SGOT) 13 U/L (15-37); Alanine Aminotransfer ALT/SGPT 14 U/L (16-61); Albumin, Serum 2.4 g/dL (3.2-5.0); Alkaline Phosphatase 47 U/L (45-117); Anion Gap 6 (5-15); BUN 12 mg/dL (7-18); BUN/Creat Ratio 17.9 RATIO (10-20); Calcium,Total 8.7 mg/dL (8.5-10.1); Chloride 105 mmol/L (98-107); Creatinine, Serum 0.67 mg/dL (0.70-1.30); EST Glomerular Filtration Rate 124 mL/min (>60); Est Glom Filt Rate - Afr Amer 150 mL/min (>60); Estimated Creatinine Clearance 52.95 ml/min; Globulin 3.2 g/dL (2.2-4.2); Glucose 125 mg/dL (74-106); Potassium 3.6 mmol/L (3.5-5.1); Protein, Total 5.6 g/dL (6.4-8.2); Sodium Level 141 mmol/L (136-145)
[2023-01-14] MEDS: Ascorbic Acid 500 MG Tablet PO (11:18)
[2023-01-14] MEDS: Ferrous Sulfate 325 MG Tablet PO (11:18)
[2023-01-14 14:00] VITALS: BP 155/81; PULSE 110; RESP 18; TEMP 36.7; O2SAT 95
[2023-01-14 19:56] VITALS: BP 128/70; PULSE 107; RESP 18; TEMP 36.3; O2SAT 98
[2023-01-14] MEDS: Magnesium Chloride 64 MG Delay Rel.Tablet 128 MG PO (21:09)
[2023-01-14] MEDS: Montelukast 10 MG Tablet PO (21:09)
[2023-01-14] MEDS: Atorvastatin Calcium 40 MG Tablet PO (21:09)
[2023-01-14] MEDS: OLANZapine 10 MG Tablet PO (21:09)
[2023-01-14] MEDS: Tamsulosin HCl 0.4 MG Capsule PO (21:09)
[2023-01-14] MEDS: Loratadine 10 MG Tablet PO (21:09)
[2023-01-14] MEDS: Allopurinol 100 MG Tablet PO (21:09)
[2023-01-15 02:35] VITALS: BP 99/48; PULSE 91; RESP 18; TEMP 36.5; O2SAT 97
[2023-01-15 05:01] VITALS: BMI 35.3
[2023-01-15] MEDS: Pramipexole Di-HCl 0.5 MG Tablet PO ×3 (06:32→21:02)
[2023-01-15] MEDS: Levothyroxine 50 MCG Tablet PO (06:32)
[2023-01-15] MEDS: Sucralfate 1 GM Tablet PO ×3 (06:32→16:26)
[2023-01-15] MEDS: Pregabalin 50 MG Capsule 200 MG PO ×3 (06:32→21:13)
[2023-01-15] MEDS: Valproic Acid 250 MG/5 ML UDC 1000 MG PO ×3 (06:32→21:02)
[2023-01-15 07:40] LABS: Absolute Lymphocyte Count 2.15 X10^3/uL (0.83-4.51); Absolute Neutrophil Count 3.1 X10^3/uL (2.0-7.7); Basophil# 0.03 X10^3/uL; Basophil% 0.5 % (0-1); Eosinophil# 0.09 X10^3/uL; Eosinophils% 1.4 % (0-5); Hematocrit 35.6 % (40-54); Hemoglobin 11.9 g/dL (13.0-16.5); Lymphocyte # 2.15 X10^3/ul (0.83-4.51); Lymphocyte % 34.4 % (19-41); Mean Corp Hgb Conc 33.4 g/dL (32-36); Mean Corpuscular Hgb 33.8 pg (27.0-32.0); Mean Corpuscular Volume 101.1 fL (80-94); Mean Platelet Vol. 8.4 fl (6.2-12.0); Monocyte% 12.8 % (0-10); NRBC Flagged by Analyzer 0 % (0-5); Neutrophil # 3.08 X10^3/uL (2.7-7.7); Neutrophil % 49.3 % (47-70); Platelet Count 206 K/mm3 (150-450); RBC Distribution Width CV 13.2 % (11.6-14.6); RBC Distribution Width SD 48.6 fl (35.1-43.9); Red Blood Count 3.52 M/mm3 (4.6-6.2); White Blood Count 6.3 K/mm3 (4.4-11.0)
[2023-01-15 08:06] LABS: Anion Gap 3 (5-15); BUN 14 mg/dL (7-18); BUN/Creat Ratio 23.9 RATIO (10-20); Calcium,Total 8.6 mg/dL (8.5-10.1); Chloride 104 mmol/L (98-107); Creatinine, Serum 0.59 mg/dL (0.70-1.30); EST Glomerular Filtration Rate 144 mL/min (>60); Est Glom Filt Rate - Afr Amer 174 mL/min (>60); Estimated Creatinine Clearance 52.95 ml/min; Glucose 118 mg/dL (74-106); Potassium 3.6 mmol/L (3.5-5.1); Sodium Level 140 mmol/L (136-145)
[2023-01-15 08:11] VITALS: BP 106/59; PULSE 86; RESP 16; TEMP 36.6; O2SAT 96
[2023-01-15 08:15] VITALS: PULSE 80
[2023-01-15] MEDS: Potassium Chloride Oral Tablet 20 MEQ PO ×2 (09:22→16:26)
[2023-01-15] MEDS: Cholecalciferol (VIT D3) 25 MCG TABLET (1,000 UNITS) 50 MCG PO (09:22)
[2023-01-15] MEDS: levETIRAcetam 750 MG Tablet 1500 MG PO ×2 (09:23→21:01)
[2023-01-15] MEDS: Clopidogrel Bisulfate 75 MG Tablet PO (09:23)
[2023-01-15] MEDS: Pantoprazole Sodium 40 MG Tablet PO (09:23)
[2023-01-15] MEDS: Finasteride 5 MG Tablet PO (09:24)
[2023-01-15] MEDS: Venlafaxine XR 150 MG Capsule PO (09:24)
[2023-01-15] MEDS: Enoxaparin 40 MG/0.4 ML Syringe SC (09:24)
--- NOTE | 2023-01-15 09:41 | PCM.PN.HOSP ---
Reason for Visit Reason for Visit: Diagnoses Weakness (01/10/23) Subjective Subjective Feeling roughly the same, no new complaints today Objective Data Objective Data Vital Signs: Vital Signs Temp Pulse Resp BP Pulse Ox O2 Del Method 97.9 F 80 16 106/59 L 96 Room Air 01/15/23 08:11 01/15/23 08:15 01/15/23 08:11 01/15/23 08:11 01/15/23 08:11 01/15/23 08:15 Oxygen Delivery Method Room Air Weight: 90.5 kg Body Mass Index (BMI) 35.3 Intake & Output: Intake and Output for Last 24 Hours 01/13/23 01/14/23 01/15/23 23:59 23:59 23:59 Intake Total 1380 / 1880 1200 / 1200 800 / 800 Balance 1380 / 1880 1200 / 1200 800 / 800 Lab / Micro Data Result Diagrams: 01/15/23 07:26 01/15/23 07:26 Labs: Laboratory Results - last 24 hr 01/14/23 09:13: Sodium 141, Potassium 3.6, Chloride 105, Carbon Dioxide 30.0, Anion Gap 6, BUN 12, Creatinine 0.67 L, Estim Creat Clear Calc 52.95, Est GFR (MDRD) Af Amer 150, Est GFR (MDRD) Non-Af 124, BUN/Creatinine Ratio 17.9, Glucose 125 H, Calcium 8.7, Total Bilirubin 0.20, AST 13 L, ALT 14 L, Alkaline Phosphatase 47, Total Protein 5.6 L, Albumin 2.4 L, Globulin 3.2, Albumin/Globulin Ratio 0.8 L 01/15/23 07:26: WBC 6.3, RBC 3.52 L, Hgb 11.9 L, Hct 35.6 L, MCV 101.1 H, MCH 33.8 H, MCHC 33.4 D, RDW Std Deviation 48.6 H, RDW Coeff of Ronna 13.2, Plt Count 206, MPV 8.4, Immature Gran % (Auto) 1.600 H, Neut % (Auto) 49.3, Lymph % (Auto) 34.4, [place] % (Auto) 12.8 H, Eos % (Auto) 1.4, Baso % (Auto) 0.5, Absolute Neuts (auto) 3.1, Absolute Lymphs (auto) 2.15, Nucleated RBC % 0 01/15/23 07:26: Sodium 140, Potassium 3.6, Chloride 104, Carbon Dioxide 33.0 H, Anion Gap 3 L, BUN 14, Creatinine 0.59 L, Estim Creat Clear Calc 52.95, Est GFR (MDRD) Af Amer 174, Est GFR (MDRD) Non-Af 144, BUN/Creatinine Ratio 23.9 H, Glucose 118 H, Calcium 8.6 Rhythm Strip Rhythm Strip: Sinus Tach Rate: 105 Ectopy: None Physical Exam Narrative General: Alert HEENT: Atraumatic Eyes: Anicteric, normal conjunctiva, extraocular movements grossly intact Neck: Supple Respiratory: Clear to auscultation bilaterally, normal respiratory effort Cardiovascular: Regular rate and rhythm GI: Soft, nontender, nondistended Extremities: Trace to 1+ lower extremity edema Musculoskeletal: Moving all extremities Neuro: Has what appeared to be some chronic tremors Skin: No rashes appreciated Psych: Cooperative Assessment & Plan Assessment/Plan (1) Weakness: PLAN: Plan #Debility and weakness -Pt very weak and assisted living did not feel he was safe for their facility after his d/c from [facility] -PT recommends rehab/snf/tcu -Given mental health history will have to be evaluated prior to transfer to facility -01/12: Awaiting placement -01/15: Awaiting level 2 eval for placement #History of seizures -On valproic acid and Keppra. -01/12: Depakote level 84, would recommend checking again in 1 to 2 weeks to verify no significant abnormalities. Additionally ammonia 34, lower than it had been in the past but with his tremors will give dose of lactulose -01/13: Depakote level today 97, high end of therapeutic but not to toxic level, continue to monitor, may need dose adjustments. Additionally given 20 g of lactulose with ammonia 35 #Hyperlipidemia -On statin #History of gout -On allopurinol #Hypothyroidism -On Synthroid. #Hx schizophrenia -On olanzapine and venlafaxine #hx KYA per documentation -CPAP qhs ordered #History of ataxia: -there was concern that he had NPH and so was transferred [facility] recently. -He was reviewed there and the symptoms were not thought to be due to NPH but rather due to elevated VPA acid levels. -PT OT on board. Fall precautions. #Hypertension -On spironolactone and Bumex -01/14: BP on the low end today so labs checked, white count within normal limits, kidney function roughly unchanged. Held home diuretics, suspect it may make him slightly volume down. We will check labs again in the a.m. and continue to monitor BP -01/15: Improved with holding of diuretics, will continue monitoring labs and daily weights while admitted DVT prophylaxis: Lovenox sub q Total time spent on evaluation and management of patient, reviewing chart, discussing plan with patient, discussion with nursing and ancillary staff as well as documentation: 20 mins Charges/Coding Visit Charges Inpatient E&M: 57278 Subs Hosp L1
--- NOTE | 2023-01-15 09:53 | CASEMGMT ---
Addendum entered by Luz Gilmore 01/15/23 12:10: SW spoke with Kadi at [facility] who states she has reached out to board of DD and has not yet heard back. SW updated pt that MH board would be calling and pt states they have not called yet. Pt made aware discharge is pending evaluations by MH and DD boards and agreeable to continue to wait. SW to continue to follow for SNF placement. Plan: [facility], once level II determinations completed ALYSSA Ivan Original Note: Social Work SW received call from Brittany kilpatrick [facility] who states she has started Mental Health referral and will be doing a phone call assessment. Per [employer] website, DD assessment has been started. Updates sent to [facility]. ALYSSA Ivan
[2023-01-15] MEDS: Ascorbic Acid 500 MG Tablet PO (11:00)
[2023-01-15] MEDS: Ferrous Sulfate 325 MG Tablet PO (11:00)
[2023-01-15] MEDS: Menthol/Lanolin/Calamine/Znox 113 GM Tube 1 APPLIC TOPICAL (12:35)
[2023-01-15 14:47] VITALS: BP 115/72; PULSE 93; RESP 18; TEMP 36.7; O2SAT 96
[2023-01-15 14:58] VITALS: PULSE 90
[2023-01-15 21:00] VITALS: BP 98/55; PULSE 85; RESP 16; TEMP 36.8; O2SAT 94
[2023-01-15] MEDS: Loratadine 10 MG Tablet PO (21:01)
[2023-01-15] MEDS: Allopurinol 100 MG Tablet PO (21:02)
[2023-01-15] MEDS: Atorvastatin Calcium 40 MG Tablet PO (21:02)
[2023-01-15] MEDS: Magnesium Chloride 64 MG Delay Rel.Tablet 128 MG PO (21:02)
[2023-01-15] MEDS: Nystatin Powder 15gm Bottle 1 APPLIC TOPICAL (21:02)
[2023-01-15] MEDS: OLANZapine 10 MG Tablet PO (21:02)
[2023-01-15] MEDS: Tamsulosin HCl 0.4 MG Capsule PO (21:02)
[2023-01-15] MEDS: Montelukast 10 MG Tablet PO (21:02)
[2023-01-16] VITALS (7 sets, daily range): BP systolic 104–129; BP diastolic 58–68; PULSE 66–110; RESP 18; TEMP 36.7–37.1; O2SAT 93–96; BMI 35.3
[2023-01-16] MEDS: Valproic Acid 250 MG/5 ML UDC 1000 MG PO ×3 (06:23→23:22)
[2023-01-16] MEDS: Pregabalin 50 MG Capsule 200 MG PO ×2 (06:23→23:42)
[2023-01-16] MEDS: Levothyroxine 50 MCG Tablet PO (06:23)
[2023-01-16] MEDS: Sucralfate 1 GM Tablet PO ×2 (06:24→14:22)
[2023-01-16] MEDS: Pramipexole Di-HCl 0.5 MG Tablet PO ×3 (06:24→23:20)
[2023-01-16 07:20] LABS: Absolute Lymphocyte Count 2.65 X10^3/uL (0.83-4.51); Absolute Neutrophil Count 3.5 X10^3/uL (2.0-7.7); Basophil# 0.06 X10^3/uL; Basophil% 0.8 % (0-1); Eosinophils% 1.4 % (0-5); Hematocrit 34.2 % (40-54); Hemoglobin 11.3 g/dL (13.0-16.5); Lymphocyte # 2.65 X10^3/ul (0.83-4.51); Lymphocyte % 36.4 % (19-41); Mean Corpuscular Hgb 33.8 pg (27.0-32.0); Mean Corpuscular Volume 102.4 fL (80-94); Mean Platelet Vol. 8.7 fl (6.2-12.0); Monocyte# 0.88 X10^3/uL; Monocyte% 12.1 % (0-10); NRBC Flagged by Analyzer 0 % (0-5); Neutrophil # 3.46 X10^3/uL (2.7-7.7); Neutrophil % 47.5 % (47-70); Platelet Count 203 K/mm3 (150-450); RBC Distribution Width CV 13.4 % (11.6-14.6); RBC Distribution Width SD 49.8 fl (35.1-43.9); Red Blood Count 3.34 M/mm3 (4.6-6.2); White Blood Count 7.3 K/mm3 (4.4-11.0)
[2023-01-16 08:08] LABS: ALB/GLOB Ratio 0.8 RATIO (0.9-2.4); AST(SGOT) 30 U/L (15-37); Alanine Aminotransfer ALT/SGPT 12 U/L (16-61); Albumin, Serum 2.4 g/dL (3.2-5.0); Alkaline Phosphatase 40 U/L (45-117); Anion Gap 4 (5-15); BUN 18 mg/dL (7-18); Chloride 108 mmol/L (98-107); Creatinine, Serum 0.64 mg/dL (0.70-1.30); EST Glomerular Filtration Rate 130 mL/min (>60); Est Glom Filt Rate - Afr Amer 157 mL/min (>60); Estimated Creatinine Clearance 52.95 ml/min; Globulin 3.2 g/dL (2.2-4.2); Glucose 93 mg/dL (74-106); Potassium 4.6 mmol/L (3.5-5.1); Protein, Total 5.6 g/dL (6.4-8.2); Sodium Level 140 mmol/L (136-145)
[2023-01-16] MEDS: Venlafaxine XR 150 MG Capsule PO (08:37)
[2023-01-16] MEDS: Potassium Chloride Oral Tablet 20 MEQ PO ×2 (08:37→17:57)
[2023-01-16] MEDS: Pantoprazole Sodium 40 MG Tablet PO (08:38)
[2023-01-16] MEDS: Clopidogrel Bisulfate 75 MG Tablet PO (08:38)
[2023-01-16] MEDS: Cholecalciferol (VIT D3) 25 MCG TABLET (1,000 UNITS) 50 MCG PO (08:38)
[2023-01-16] MEDS: Finasteride 5 MG Tablet PO (08:38)
[2023-01-16] MEDS: Enoxaparin 40 MG/0.4 ML Syringe SC (08:39)
[2023-01-16] MEDS: Nystatin Powder 15gm Bottle 1 APPLIC TOPICAL ×2 (08:39→23:23)
--- NOTE | 2023-01-16 10:26 | PN.HOSP_ITS ---
Reason for Visit Reason for Visit: Diagnoses Weakness (01/10/23) Subjective Subjective Originally this a.m. patient sitting up and doing well in no acute distress. Was called later in the a.m. due to patient being tired and weak. Went to bedside, patient semirecumbent with neck flexed, though it always remains flexed was slightly more so than previous, would wake up and answer questions. Was assisted back into bed. ABG, labs, chest x-ray ordered however patient already seemed to be doing better once he was laid back in bed with head and slightly more neutral position. We will monitor closely and follow-up on labs this a.m. Objective Data Objective Data Vital Signs: Vital Signs Temp Pulse Resp BP Pulse Ox O2 Del Method 98.0 F 66 18 106/58 L 96 Room Air 01/16/23 08:00 01/16/23 08:00 01/16/23 08:00 01/16/23 08:00 01/16/23 08:00 01/16/23 08:00 Oxygen Delivery Method Room Air Weight: 90.5 kg Body Mass Index (BMI) 35.3 Intake & Output: Intake and Output for Last 24 Hours 01/14/23 01/15/23 01/16/23 23:59 23:59 23:59 Intake Total 1200 / 1200 800 / 1100 420 / 420 Balance 1200 / 1200 800 / 1100 420 / 420 Lab / Micro Data Result Diagrams: 01/16/23 07:04 01/16/23 07:04 Labs: Laboratory Results - last 24 hr 01/16/23 07:04: WBC 7.3, RBC 3.34 L, Hgb 11.3 L, Hct 34.2 L, MCV 102.4 H, MCH 33.8 H, MCHC 33.0, RDW Std Deviation 49.8 H, RDW Coeff of Ronna 13.4, Plt Count 203, MPV 8.7, Immature Gran % (Auto) 1.800 H, Neut % (Auto) 47.5, Lymph % (Auto) 36.4, [place] % (Auto) 12.1 H, Eos % (Auto) 1.4, Baso % (Auto) 0.8, Absolute Neuts (auto) 3.5, Absolute Lymphs (auto) 2.65, Nucleated RBC % 0 01/16/23 07:04: Sodium 140, Potassium 4.6, Chloride 108 H, Carbon Dioxide 28.0, Anion Gap 4 L, BUN 18, Creatinine 0.64 L, Estim Creat Clear Calc 52.95, Est GFR (MDRD) Af Amer 157, Est GFR (MDRD) Non-Af 130, BUN/Creatinine Ratio 28.0 H, Glucose 93, Calcium 9.0, Total Bilirubin 0.30, AST 30, ALT 12 L, Alkaline Phosp hatase 40 L, Total Protein 5.6 L, Albumin 2.4 L, Globulin 3.2, Albumin/Globulin Ratio 0.8 L Rhythm Strip Rhythm Strip: Sinus Tach Rate: 105 Ectopy: None Physical Exam Narrative Exam when originally evaluated this a.m. general: Alert HEENT: Atraumatic Eyes: Anicteric, normal conjunctiva, extraocular movements grossly intact Neck: Supple Respiratory: Clear to auscultation bilaterally, normal respiratory effort Cardiovascular: Regular rate and rhythm GI: Soft, nontender, nondistended Extremities: Trace to 1+ lower extremity edema Musculoskeletal: Moving all extremities Neuro: Has what appeared to be some chronic tremors Skin: No rashes appreciated Psych: Cooperative Assessment & Plan Assessment/Plan (1) Weakness: PLAN: Plan #Debility and weakness -Pt very weak and assisted living did not feel he was safe for their facility after his d/c from [facility] -PT recommends rehab/snf/tcu -Given mental health history will have to be evaluated prior to transfer to facility -01/12: Awaiting placement -01/15: Awaiting level 2 eval for placement -01/16: Patient awake alert and doing well this a.m. however received message that he was more tired and weak later in the morning. Patient was laying back further than he had been earlier and neck was flexed more so than usual, may have had slight CO2 retention. ABG did show PCO2 49.8. Patient seemed to improve once laid back with neck in a more neutral position. Awaiting ammonia and Depakote level as well as chest x-ray. Though less suspicion that he aspirated he does have neck flexed forward at baseline and eats, will consult speech speech therapy for evaluation #History of seizures -On valproic acid and Keppra. -01/12: Depakote level 84, would recommend checking again in 1 to 2 weeks to verify no significant abnormalities. Additionally ammonia 34, lower than it had been in the past but with his tremors will give dose of lactulose -01/13: Depakote level today 97, high end of therapeutic but not to toxic level, continue to monitor, may need dose adjustments. Additionally given 20 g of lactulose with ammonia 35 -01/16: Repeating ammonia and Depakote level #Hyperlipidemia -On statin #History of gout -On allopurinol #Hypothyroidism -On Synthroid. #Hx schizophrenia -On olanzapine and venlafaxine #hx KYA per documentation -CPAP qhs ordered #History of ataxia: -there was concern that he had NPH and so was transferred [facility] recently. -He was reviewed there and the symptoms were not thought to be due to NPH but rather due to elevated VPA acid levels. -PT OT on board. Fall precautions. #Hypertension -On spironolactone and Bumex -01/14: BP on the low end today so labs checked, white count within normal limits, kidney function roughly unchanged. Held home diuretics, suspect it may make him slightly volume down. We will check labs again in the a.m. and continue to monitor BP -01/15: Improved with holding of diuretics, will continue monitoring labs and daily weights while admitted DVT prophylaxis: Lovenox sub q Total time spent on evaluation and management of patient, reviewing chart, discussing plan with patient, discussion with nursing and ancillary staff as well as documentation: 30 mins Charges/Coding Visit Charges Inpatient E&M: 57576 Subs Hosp L2
[2023-01-16 11:40] LABS: Allen Test Positive; Base Excess 7 mmol/L (-2 to +2); Bicarbonate 31.9 mmol/L (22-26); Blood Gas Specimen Type ART; FI02 21; O2 Delivery Device Room Air; PO2 70 mmHG (75-100); SITE R Radial; SO2 94 % (95-99); Total Carbon Dioxide 33 mmol/L; pCO2 49.8 mmHg (35-45); pH 7.42 (7.35-7.45)
[2023-01-16 12:23] LABS: Valproic Acid (Depakene) Level 91 ug/mL (50-100)
[2023-01-16 12:28] LABS: BNP,B-Type NATRIURETIC PEPTIDE 15.2 pg/mL (0-100)
--- NOTE | 2023-01-16 12:40 | RAD_ITS ---
STUDY: X-RAY CHEST REASON FOR EXAM: Male, 72 years old. LOC change TECHNIQUE: Single AP portable view of the chest. COMPARISON: January 10, 2023 FINDINGS: There are scattered and chronic appearing interstitial fibrotic changes of the lungs. No new focus of consolidation is seen. There is no demonstrated pleural abnormality. Normal size heart. Normal mediastinum and crissy. Normal visualized pulmonary arteries. There is atherosclerotic calcification of the aortic arch with tortuosity. There are diffuse degenerative changes of the visualized thoracic spine. Normal visualized ribs, clavicles, and shoulders. There is no demonstrated abnormality of the visualized soft tissue structures of the upper abdomen. RAD/Chest 1 View (Portable) IMPRESSION: Degenerative changes, as described above. No demonstrated acute cardiopulmonary process. Electronically Signed: Ben Fraire MD at 14:28 EDT ,
--- NOTE | 2023-01-16 12:40 | NURSING ---
dr waller saw pt at bedside, abg's done, labs drawn and cxr now being done pt remains in bed , on room air and bed exit is on
--- NOTE | 2023-01-16 13:53 | NURSING ---
chronulac has not arrived from Rx, not in accudose
[2023-01-16] MEDS: Lactulose 20 GM/30 ML UDC PO ×2 (14:22→23:22)
[2023-01-16] MEDS: Magnesium Chloride 64 MG Delay Rel.Tablet 128 MG PO (23:20)
[2023-01-16] MEDS: Montelukast 10 MG Tablet PO (23:20)
[2023-01-16] MEDS: OLANZapine 10 MG Tablet PO (23:20)
[2023-01-16] MEDS: Allopurinol 100 MG Tablet PO (23:20)
[2023-01-16] MEDS: Loratadine 10 MG Tablet PO (23:21)
[2023-01-16] MEDS: levETIRAcetam 750 MG Tablet 1500 MG PO (23:21)
[2023-01-16] MEDS: Atorvastatin Calcium 40 MG Tablet PO (23:21)
[2023-01-16] MEDS: Tamsulosin HCl 0.4 MG Capsule PO (23:22)
[2023-01-17 04:42] VITALS: BP 110/56; PULSE 77; RESP 16; TEMP 36.8; O2SAT 94
[2023-01-17] MEDS: Valproic Acid 250 MG/5 ML UDC 1000 MG PO (04:55)
[2023-01-17] MEDS: Alendronate Sodium 70 MG Tablet PO (04:56)
[2023-01-17] MEDS: Levothyroxine 50 MCG Tablet PO (04:56)
[2023-01-17] MEDS: Lactulose 20 GM/30 ML UDC PO ×4 (04:56→22:49)
[2023-01-17] MEDS: Sucralfate 1 GM Tablet PO ×3 (04:56→17:17)
[2023-01-17] MEDS: Pramipexole Di-HCl 0.5 MG Tablet PO ×3 (04:56→22:26)
[2023-01-17] MEDS: Pregabalin 50 MG Capsule 200 MG PO ×2 (05:05→22:24)
[2023-01-17 05:11] LABS: Absolute Lymphocyte Count 2.51 X10^3/uL (0.83-4.51); Absolute Neutrophil Count 2.5 X10^3/uL (2.0-7.7); Basophil# 0.05 X10^3/uL; Basophil% 0.8 % (0-1); Eosinophil# 0.11 X10^3/uL; Eosinophils% 1.8 % (0-5); Hematocrit 33.7 % (40-54); Hemoglobin 10.9 g/dL (13.0-16.5); Lymphocyte # 2.51 X10^3/ul (0.83-4.51); Lymphocyte % 41.7 % (19-41); Mean Corp Hgb Conc 32.3 g/dL (32-36); Mean Corpuscular Hgb 33.4 pg (27.0-32.0); Mean Corpuscular Volume 103.4 fL (80-94); Mean Platelet Vol. 8.9 fl (6.2-12.0); Monocyte# 0.78 X10^3/uL; NRBC Flagged by Analyzer 0 % (0-5); Neutrophil # 2.48 X10^3/uL (2.7-7.7); Neutrophil % 41.2 % (47-70); Platelet Count 183 K/mm3 (150-450); RBC Distribution Width CV 13.6 % (11.6-14.6); RBC Distribution Width SD 52.3 fl (35.1-43.9); Red Blood Count 3.26 M/mm3 (4.6-6.2)
[2023-01-17 05:29] LABS: Anion Gap 2 (5-15); BUN 16 mg/dL (7-18); BUN/Creat Ratio 31.7 RATIO (10-20); Calcium,Total 8.6 mg/dL (8.5-10.1); Chloride 108 mmol/L (98-107); EST Glomerular Filtration Rate 172 mL/min (>60); Est Glom Filt Rate - Afr Amer 208 mL/min (>60); Estimated Creatinine Clearance 52.95 ml/min; Glucose 86 mg/dL (74-106); Potassium 3.9 mmol/L (3.5-5.1); Sodium Level 142 mmol/L (136-145)
[2023-01-17 05:57] VITALS: BMI 35.9
--- NOTE | 2023-01-17 07:46 | PN.HOSP_ITS ---
Reason for Visit Reason for Visit: Diagnoses Weakness (01/10/23) Subjective Subjective Somewhat sleepy this morning, ammonia still elevated Objective Data Objective Data Vital Signs: Vital Signs Temp Pulse Resp BP Pulse Ox O2 Del Method 98.2 F 77 16 110/56 L 94 Room Air 01/17/23 04:42 01/17/23 04:42 01/17/23 04:42 01/17/23 04:42 01/17/23 04:42 01/17/23 04:42 Oxygen Delivery Method Room Air Weight: 92 kg Body Mass Index (BMI) 35.9 Intake & Output: Intake and Output for Last 24 Hours 01/15/23 01/16/23 01/17/23 23:59 23:59 23:59 Intake Total 800 / 1100 670 / 670 Balance 800 / 1100 670 / 670 Lab / Micro Data Result Diagrams: 01/17/23 04:28 01/17/23 04:28 Labs: Laboratory Results - last 24 hr 01/16/23 07:04: Sodium 140, Potassium 4.6, Chloride 108 H, Carbon Dioxide 28.0, Anion Gap 4 L, BUN 18, Creatinine 0.64 L, Estim Creat Clear Calc 52.95, Est GFR (MDRD) Af Amer 157, Est GFR (MDRD) Non-Af 130, BUN/Creatinine Ratio 28.0 H, Glucose 93, Calcium 9.0, Total Bilirubin 0.30, AST 30, ALT 12 L, Alkaline Phosph atase 40 L, Total Protein 5.6 L, Albumin 2.4 L, Globulin 3.2, Albumin/Globulin Ratio 0.8 L 01/16/23 11:50: Ammonia 84.0 H 01/16/23 11:50: Valproic Acid 91 01/16/23 11:50: B-Natriuretic Peptide 15.2 01/17/23 04:28: WBC 6.0, RBC 3.26 L, Hgb 10.9 L, Hct 33.7 L, MCV 103.4 H, MCH 33.4 H, MCHC 32.3, RDW Std Deviation 52.3 H, RDW Coeff of Ronna 13.6, Plt Count 183, MPV 8.9, Immature Gran % (Auto) 1.500 H, Neut % (Auto) 41.2 L, Lymph % (Auto) 41.7 H, [place] % (Auto) 13.0 H, Eos % (Auto) 1.8, Baso % (Auto) 0.8, Absolute Neuts (auto) 2.5, Absolute Lymphs (auto) 2.51, Nucleated RBC % 0 01/17/23 04:28: Sodium 142, Potassium 3.9, Chloride 108 H, Carbon Dioxide 32.0, Anion Gap 2 L, BUN 16, Creatinine 0.50 L, Estim Creat Clear Calc 52.95, Est GFR (MDRD) Af Amer 208, Est GFR (MDRD) Non-Af 172, BUN/Creatinine Ratio 31.7 H, Glucose 86, Calcium 8.6 01/17/23 04:28: Ammonia 88.0 H ABG Data ABG results: ABG 01/16/23 11:37 Specimen Type ART Sample Site R Radial pH 7.42 Bicarbonate Actual 31.9 H Total CO2 33 Base Excess 7 H O2 Saturation 94 L O2 % 21 ABG pCO2 49.8 H ABG pO2 70 L Her[place]lio Test Positive O2 Delivery Device Room Air Radiography Diagnostic Testing: Radiology Impression Chest X-Ray 01/16/23 12:40 IMPRESSION: Degenerative changes, as described above. No demonstrated acute cardiopulmonary process. Electronically Signed: Ben Fraire MD at 14:28 EDT Reading Location ID and State: [facility] / [place] , Service support , Rhythm Strip Rhythm Strip: Sinus Tach Rate: 105 Ectopy: None Physical Exam Narrative general: Sleeping in chair, does wake up and interact but falls back asleep HEENT: Atraumatic Eyes: Eyes resting comfortably Neck: Supple Respiratory: Clear to auscultation bilaterally, normal respiratory effort Cardiovascular: Regular rate and rhythm GI: Soft, nontender, nondistended Extremities: Trace to 1+ lower extremity edema Musculoskeletal: Moving all extremities Neuro: Has what appeared to be some chronic tremors Skin: No rashes appreciated Psych: Attempts to be cooperative and more sleepy today Assessment & Plan Assessment/Plan (1) Weakness: PLAN: Plan #Debility and weakness -Pt very weak and assisted living did not feel he was safe for their facility after his d/c from [facility] -PT recommends rehab/snf/tcu -Given mental health history will have to be evaluated prior to transfer to facility -01/12: Awaiting placement -01/15: Awaiting level 2 eval for placement -01/16: Patient awake alert and doing well this a.m. however received message that he was more tired and weak later in the morning. Patient was laying back further than he had been earlier and neck was flexed more so than usual, may have had slight CO2 retention. ABG did show PCO2 49.8. Patient seemed to improve once laid back with neck in a more neutral position. Awaiting ammonia and Depakote level as well as chest x-ray. Though less suspicion that he aspirated he does have neck flexed forward at baseline and eats, will consult speech speech therapy for evaluation -01/17: Awaiting level 2 evaluation for placement #Hyperammonemia -Noted 01/16 and started on lactulose, remains elevated 01/17 and lactulose increased, Depakote decreased We will need to repeat Depakote level #Hypertension -On spironolactone and Bumex -01/14: BP on the low end today so labs checked, white count within normal limits, kidney function roughly unchanged. Held home diuretics, suspect it may make him slightly volume down. We will check labs again in the a.m. and continue to monitor BP -01/15: Improved with holding of diuretics, will continue monitoring labs and daily weights while admitted -01/17: Weight is increasing given holding of diuretics, will resume Bumex but at 1 mg. Monitor potassium, may need to resume supplementation with resumption of Bumex #History of seizures -On valproic acid and Keppra. -01/12: Depakote level 84, would recommend checking again in 1 to 2 weeks to verify no significant abnormalities. Additionally ammonia 34, lower than it had been in the past but with his tremors will give dose of lactulose -01/13: Depakote level today 97, high end of therapeutic but not to toxic level, continue to monitor, may need dose adjustments. Additionally given 20 g of lactulose with ammonia 35 -01/16: Repeating ammonia and Depakote level -01/17: Hyperammonemia Noted 01/16 and started on lactulose, remains elevated 01/17 and lactulose increased, Depakote decreased We will need to repeat Depakote level in next several days #Hyperlipidemia -On statin #History of gout -On allopurinol #Hypothyroidism -On Synthroid. #Hx schizophrenia -On olanzapine and venlafaxine #hx KYA per documentation -CPAP qhs ordered #History of ataxia: -there was concern that he had NPH and so was transferred [facility] recently. -He was reviewed there and the symptoms were not thought to be due to NPH but rather due to elevated VPA acid levels. -PT OT on board. Fall precautions. DVT prophylaxis: Lovenox sub q Total time spent on evaluation and management of patient, reviewing chart, discussing plan with patient, discussion with nursing and ancillary staff as well as documentation: 30 mins Charges/Coding Visit Charges Inpatient E&M: 15623 Subs Hosp L2
[2023-01-17] MEDS: Venlafaxine XR 150 MG Capsule PO (09:55)
[2023-01-17] MEDS: Clopidogrel Bisulfate 75 MG Tablet PO (09:56)
[2023-01-17] MEDS: Finasteride 5 MG Tablet PO (09:56)
[2023-01-17] MEDS: Cholecalciferol (VIT D3) 25 MCG TABLET (1,000 UNITS) 50 MCG PO (09:56)
[2023-01-17] MEDS: levETIRAcetam 750 MG Tablet 1500 MG PO ×2 (09:57→22:24)
[2023-01-17] MEDS: Enoxaparin 40 MG/0.4 ML Syringe SC (10:02)
[2023-01-17] MEDS: Nystatin Powder 15gm Bottle 1 APPLIC TOPICAL ×2 (10:02→22:51)
[2023-01-17] MEDS: Menthol/Lanolin/Calamine/Znox 113 GM Tube 1 APPLIC TOPICAL (10:02)
[2023-01-17 10:35] VITALS: BP 121/60; PULSE 77; RESP 18; TEMP 36.7; O2SAT 95
[2023-01-17 10:39] VITALS: PULSE 70; O2SAT 95
--- NOTE | 2023-01-17 10:56 | NURSING ---
1000 dose of lansoprazole missing Rx informed
[2023-01-17] MEDS: Ferrous Sulfate 325 MG Tablet PO (13:23)
[2023-01-17] MEDS: Ascorbic Acid 500 MG Tablet PO (13:23)
[2023-01-17] MEDS: Valproic Acid 250 MG/5 ML UDC 750 MG PO ×2 (13:24→22:22)
[2023-01-17 17:00] VITALS: BP 112/58; PULSE 80; PULSE 87; RESP 18; TEMP 5391.1; TEMP 9736; O2SAT 98
[2023-01-17] MEDS: Potassium Chloride Oral Soln 20 MEQ/15 ML UDC GT (17:16)
[2023-01-17 22:17] VITALS: BP 111/51; PULSE 90; RESP 20; TEMP 37.1; O2SAT 93
[2023-01-17] MEDS: Loratadine 10 MG Tablet PO (22:22)
[2023-01-17] MEDS: Tamsulosin HCl 0.4 MG Capsule PO (22:23)
[2023-01-17] MEDS: Atorvastatin Calcium 40 MG Tablet PO (22:24)
[2023-01-17] MEDS: Allopurinol 100 MG Tablet PO (22:26)
[2023-01-17] MEDS: Montelukast 10 MG Tablet PO (22:26)
[2023-01-17] MEDS: Magnesium Chloride 64 MG Delay Rel.Tablet 128 MG PO (22:26)
[2023-01-17] MEDS: OLANZapine 10 MG Tablet PO (22:27)
[2023-01-18 02:19] VITALS: BMI 35.9
[2023-01-18 05:54] LABS: Absolute Lymphocyte Count 2.09 X10^3/uL (0.83-4.51); Absolute Neutrophil Count 2.4 X10^3/uL (2.0-7.7); Basophil# 0.04 X10^3/uL; Basophil% 0.7 % (0-1); Eosinophil# 0.09 X10^3/uL; Eosinophils% 1.7 % (0-5); Hematocrit 31.1 % (40-54); Hemoglobin 9.9 g/dL (13.0-16.5); Lymphocyte # 2.09 X10^3/ul (0.83-4.51); Lymphocyte % 38.8 % (19-41); Mean Corp Hgb Conc 31.8 g/dL (32-36); Mean Corpuscular Hgb 33.3 pg (27.0-32.0); Mean Corpuscular Volume 104.7 fL (80-94); Mean Platelet Vol. 8.7 fl (6.2-12.0); Monocyte# 0.74 X10^3/uL; Monocyte% 13.7 % (0-10); NRBC Flagged by Analyzer 0 % (0-5); Neutrophil # 2.37 X10^3/uL (2.7-7.7); Platelet Count 137 K/mm3 (150-450); RBC Distribution Width CV 13.4 % (11.6-14.6); RBC Distribution Width SD 52.2 fl (35.1-43.9); Red Blood Count 2.97 M/mm3 (4.6-6.2); White Blood Count 5.4 K/mm3 (4.4-11.0)
[2023-01-18 06:30] VITALS: BP 92/52; PULSE 71; RESP 16; TEMP 36.9; O2SAT 95
[2023-01-18 06:46] LABS: ALB/GLOB Ratio 0.9 RATIO (0.9-2.4); AST(SGOT) 14 U/L (15-37); Alanine Aminotransfer ALT/SGPT 10 U/L (16-61); Albumin, Serum 2.1 g/dL (3.2-5.0); Alkaline Phosphatase 38 U/L (45-117); Anion Gap 3 (5-15); BUN 15 mg/dL (7-18); BUN/Creat Ratio 30.9 RATIO (10-20); Calcium,Total 8.5 mg/dL (8.5-10.1); Chloride 110 mmol/L (98-107); Creatinine, Serum 0.48 mg/dL (0.70-1.30); EST Glomerular Filtration Rate 179 mL/min (>60); Est Glom Filt Rate - Afr Amer 217 mL/min (>60); Estimated Creatinine Clearance 52.95 ml/min; Globulin 2.4 g/dL (2.2-4.2); Glucose 102 mg/dL (74-106); Protein, Total 4.5 g/dL (6.4-8.2); Sodium Level 142 mmol/L (136-145)
[2023-01-18] MEDS: Levothyroxine 50 MCG Tablet PO (06:57)
[2023-01-18] MEDS: Valproic Acid 250 MG/5 ML UDC 750 MG PO ×2 (06:57→14:26)
[2023-01-18] MEDS: Sucralfate 1 GM Tablet PO ×3 (06:57→17:49)
[2023-01-18] MEDS: Lactulose 20 GM/30 ML UDC PO ×2 (06:57→11:23)
[2023-01-18] MEDS: Pramipexole Di-HCl 0.5 MG Tablet PO ×2 (06:57→14:27)
[2023-01-18] MEDS: Clopidogrel Bisulfate 75 MG Tablet PO (10:11)
[2023-01-18] MEDS: Venlafaxine XR 150 MG Capsule PO (10:11)
[2023-01-18] MEDS: Ferrous Sulfate 325 MG Tablet PO (10:11)
[2023-01-18] MEDS: levETIRAcetam 750 MG Tablet 1500 MG PO (10:11)
[2023-01-18] MEDS: Finasteride 5 MG Tablet PO (10:11)
[2023-01-18] MEDS: Ascorbic Acid 500 MG Tablet PO (10:11)
[2023-01-18] MEDS: Enoxaparin 40 MG/0.4 ML Syringe SC (10:12)
[2023-01-18] MEDS: Cholecalciferol (VIT D3) 25 MCG TABLET (1,000 UNITS) 50 MCG PO (10:12)
[2023-01-18] MEDS: Nystatin Powder 15gm Bottle 1 APPLIC TOPICAL (10:13)
[2023-01-18 10:22] VITALS: BP 103/57; PULSE 90; RESP 18; TEMP 37.1; O2SAT 97
--- NOTE | 2023-01-18 10:30 | CASEMGMT ---
Addendum entered by Cindy Shannon 01/18/23 15:05: DARLENE notified pt and pt sister, Cha, of discharge to [facility] today. DARLENE called [facility] to set up pt transportation. Spoke to Emilie who gave trip ID number: [id number]. DARLENE then called [facility] and provided trip ID number and set up wheelchair transportation for 5:00pm. DARLENE faxed all discharge orders to [facility] via [employer] and notified of discharge time. DARLENE notified pt nurse of transport time. DARLENE made copies of discharge orders and placed on pt chart. Sent original orders in envelope with pt upon discharge.?? Disposition: [facility], skilled, convalescent, level of care? ALYSSA Lemon Addendum entered by Cindy Shannon 01/18/23 14:36: DARLENE not able to reach MD Verde via Back[employer]. DARLENE called Library were MD Recio often sits. MD Recio was there and answered. Discussed pt discharging today and pt ammonia level being the deciding factor. MD Recio stated pt is on meds to reduce the level and if [facility] is alright with pt coming to them with the level high then MD will discharge. DARLENE called Desiree at [facility] and Desiree confirmed pt can come with the current ammonia level and the meds to reduce it. DARLENE updated MD Recio. Intent to discharge today. Addendum entered by Cindy Shannon 01/18/23 13:14: DARLENE sent copy of level II to [facility] via [employer]. Addendum entered by Cindy Shannon 01/18/23 13:13: DARLENE received fax from [facility] with determination on Level II review. Pt has been approved to go to SNF. DARLENE updated MD Recio via backline. Original Note: Social Work SW in to pt room to discuss discharge plans. DARLENE introduced self and role at the hospital. Pt agreeable to talking, although pt put head down and closed eyes after SW entered the room. DARLENE asked pt if the phone call for the level two evaluation had been received. Pt confirmed had received a pc a couple days ago. SW checked [facility] website and it still states started. No determination has been entered or received by DARLENE at this time. DARLENE reached out to [facility] to see if they had received an update from [facility] or [employer]. DARLENE will continue to follow. PLAN: [facility], pending level two evaluation. Pt precert is good until 01/20/23 ALYSSA Lemon
[2023-01-18] MEDS: Lansoprazole 15 MG Capsule.DR 30 MG GT (11:23)
[2023-01-18] MEDS: Potassium Chloride Oral Soln 20 MEQ/15 ML UDC GT (11:24)
[2023-01-18 13:07] VITALS: O2SAT 95
[2023-01-18] MEDS: Pregabalin 50 MG Capsule 200 MG PO (14:27)
[2023-01-18 14:37] VITALS: BP 114/65; PULSE 93; RESP 18; TEMP 36.8; O2SAT 94
--- NOTE | 2023-01-18 14:38 | TREXTCAR_ITS ---
Diet Diet Order/Speech Therapy: 01/10/23 12:23 Diet: Cardiac - Heart Healthy Food consistency:: Regular Liquid Consistency:: Regular/Thin Is pt able to select menu?: Yes Routine Orders/Code Status Enema Type: Fleetz Suppository Type: Dulcolax 10mg Suppository Frequency: Daily PRN O2 Frequency: PRN Wound(s) L ankle: Wound Type: Laceration Therapies Weight Bearing: Weight bearing as tolerated Physical Therapy: Eval and Treat Occupational Therapy: Eval and Treat Problem/Diagnosis (1) Weakness: Status: Acute Code(s): R53.1 - Weakness Plan #Debility and weakness * admit to med surg * CBC and BMP are unremarkable * consult PT/OT * fall precautions * Assisted Living Facility refusing to take him back. * will need placement * #History of seizures: On valproic acid and Keppra #Hyperlipidemia: On statin #History of gout: On allopurinol #Hypothyroidism: On Synthroid. Check TSH #Depression: On olanzapine and venlafaxine #History of ataxia: * There was concern that he had NPH and so was transferred [facility] recently. * He was reviewed there and the symptoms were not thought to be due to NPH but rather due to elevated lipoic acid levels. * PT OT on board. For precautions. #Hypertension: On spironolactone and Bumex DVT prophylaxis: Lovenox CODE STATUS:DNRCCA no intubation * Patient counseled extensively about different types of CODE STATUS including full code, DNR CCA and DNR CCA. Patient elects to be DNRCCA . This was confirmed from documentation he brought from [facility]. * Total [id number] time 17 minutes. Total time spent on evaluation and management of patient, reviewing chart, discussing plan with patient, discussion with nursing and ancillary staff as well as documentation: 60 mins Allergies/Procedures Done in Hospital Allergies aspirin Allergy (Verified 01/10/23 01:40) cant remember rxn nickel Allergy (Verified 01/10/23 01:40) Other oxcarbazepine [From Trileptal] Allergy (Verified 01/10/23 01:40) cant remember rxn Procedures: None Type of Care/Length of Stay Estimated LOS: Convalescent Care Less Than 30 days Type of Care Needed: Skilled Rehab Potential: Fair Prognosis: Fair Additional Orders/Day of Discharge Day of Discharge: 01/18/23 Dietary and Speech Recommendations Dietitian Recommendations/Changes: continue cardiac diet as tolerated; consider liberalizing to regular and/or adding Ensure w/ medpass if PO intake is poor at meals. Discharge Plan Admission Admit Date/Time: 01/10/23 09:22 Primary Reason for Your Visit: altered mental status, weakness, lethargy Attending Provider: Kary Recio Primary Care Provider: NILS CANTOR Consulting Providers: Kary Recio ; Nina Wilder Instructions Patient Instructions: ED Weakness (Uncertain Cause) Additional Instructions / Restrictions: DISCHARGE INSTRUCTIONS PLEASE READ -Continue your home medications -Your valproic acid level is on the high end of the therapeutic range, would recommend repeating level in 3 to 5 days to verify no further adjustments need to be made -Please call your primary care provider's office upon discharge to schedule a hospital follow up within 1 week. -For any concerning signs or symptoms please call 911 or proceed to the nearest emergency department Discharge Orders/Prescriptions Prescriptions: New lactulose 20 gram/30 mL solution 20 g PO TID Qty: 3000 2RF Rx Instructions: titrate until patient is having 2-3 loose stools daily Continued ascorbic acid (vitamin C) 500 mg capsule 500 mg PO DAILY@1200 pantoprazole 40 mg tablet,delayed release (DR/EC) 40 mg PO DAILY montelukast 10 mg tablet 10 mg PO QHS loratadine 10 mg capsule 10 mg PO QHS atorvastatin 40 MG tablet 40 mg PO QHS alendronate 70 MG tablet 70 mg PO LEON clopidogrel 75 MG tablet 75 mg PO DAILY allopurinol 100 MG tablet 100 mg PO QHS levothyroxine 50 MCG tablet 50 mcg PO DAILY finasteride 5 MG tablet 5 mg PO DAILY spironolactone 25 mg tablet 25 mg PO QODAY olanzapine 5 mg tablet,disintegrating 10 mg PO QHS ropinirole 1 MG tablet 1 mg PO TID potassium chloride 20 MEQ tablet,ER particles/crystals 20 meq PO BID magnesium oxide 400 MG tablet 400 mg PO QHS cholecalciferol (vitamin D3) 2,000 UNIT capsule 2,000 unit PO DAILY venlafaxine 150 mg capsule,extended release 24hr 150 mg PO DAILY valproic acid (as sodium salt) 250 mg/5 mL Solution 1,000 mg PO TID bumetanide 1 mg Tablet 2 mg PO DAILY levetiracetam 750 mg Tablet 1,500 mg PO BID sucralfate 1 gram Tablet 1 g PO TIDCM alfuzosin 10 mg tablet extended release 24 hr 10 mg PO QHS Label Comments: 1 TABLET BY MOUTH ATABEDTIME DX: URINARY URGENCYSR pregabalin 200 mg Capsule 200 mg PO TID omega [id number]-fish oil 1,000 mg (120 mg-180 mg) Capsule 1 cap PO BID ferrous gluconate 270 mg (27 mg iron) Tablet 270 mg PO DAILY Discontinued acetaminophen 325 mg tablet 1,300 mg PO BID Label Comments: 4 [facility]00[facility] / DX:E Referrals / Follow Up: NILS CANTOR [Other] NILS CANTOR [Other] Doctor,Your [Non-Staff] - 1 Day for another exam Disposition Disposition (needs filled in before D/C Order can be placed): [facility] Facility
--- NOTE | 2023-01-18 14:38 | PCM.DC.SUM ---
Providers Date of Admission: 01/10/23 Date of Discharge: 01/18/23 Primary Care Physician: NILS CANTOR Reason For Visit: WEAKNESS AND DEBILITY Diagnosis Discharge Diagnosis (1) Weakness: Status: Acute Code(s): R53.1 - Weakness Plan #Debility and weakness admit to med surg CBC and BMP are unremarkable consult PT/OT fall precautions Assisted Living Facility refusing to take him back. will need placement #History of seizures: On valproic acid and Keppra #Hyperlipidemia: On statin #History of gout: On allopurinol #Hypothyroidism: On Synthroid. Check TSH #Depression: On olanzapine and venlafaxine #History of ataxia: There was concern that he had NPH and so was transferred [facility] recently. He was reviewed there and the symptoms were not thought to be due to NPH but rather due to elevated lipoic acid levels. PT OT on board. For precautions. #Hypertension: On spironolactone and Bumex DVT prophylaxis: Lovenox CODE STATUS:DNRCCA no intubation Patient counseled extensively about different types of CODE STATUS including full code, DNR CCA and DNR CCA. Patient elects to be DNRCCA . This was confirmed from documentation he brought from [facility]. Total [id number] time 17 minutes. Total time spent on evaluation and management of patient, reviewing chart, discussing plan with patient, discussion with nursing and ancillary staff as well as documentation: 60 mins Medications at Discharge Home Medications alendronate 70 mg tablet 70 mg PO LEON OSTEOPOROSIS 12/07/16 allopurinol 100 mg tablet 100 mg PO QHS GOUT 12/07/16 atorvastatin 40 mg tablet 40 mg PO QHS CHOLESTEROL 12/07/16 clopidogrel 75 mg tablet 75 mg PO DAILY ANTIPLATELET 12/07/16 finasteride 5 mg tablet 5 mg PO DAILY PROSTATE 12/07/16 levothyroxine 50 mcg tablet 50 mcg PO DAILY THYROID 12/07/16 ascorbic acid (vitamin C) 500 mg capsule 500 mg PO DAILY@1200 SUPPLEMENT 03/17/19 montelukast 10 mg tablet 10 mg PO QHS ALLERGIES 03/17/19 pantoprazole 40 mg tablet,delayed release 40 mg PO DAILY ACID REFLUX 03/17/19 cholecalciferol (vitamin D3) 50 mcg (2,000 unit) capsule 2,000 unit PO DAILY SUPPLEMENT 07/11/19 magnesium oxide 400 mg (241.3 mg magnesium) tablet 400 mg PO QHS SUPPLEMENT 07/11/19 potassium chloride 20 mEq tablet,extended release(part/cryst) 20 meq PO BID SUPPLEMENT 07/11/19 ropinirole 1 mg tablet 1 mg PO TID SEIZURES 07/11/19 loratadine 10 mg capsule 10 mg PO QHS 07/15/20 olanzapine 5 mg disintegrating tablet 10 mg PO QHS DEPRESSION 07/15/20 spironolactone 25 mg tablet 25 mg PO QODAY DIURETIC 07/15/20 venlafaxine 150 mg capsule,extended release 24 hr 150 mg PO DAILY DEPRESSION 07/15/20 valproic acid (as sodium salt) 250 mg/5 mL oral solution 1,000 mg PO TID 07/01/22 bumetanide 1 mg tablet 2 mg PO DAILY DIURETIC 01/04/23 levetiracetam 750 mg tablet 1,500 mg PO BID seizures 01/04/23 alfuzosin 10 mg tablet,extended release 24 hr 10 mg PO QHS urinary urgency 01/10/23 ferrous gluconate 270 mg (27 mg iron) tablet 270 mg PO DAILY supplement 01/10/23 omega 9-oan-lsd-fish oil 1,000 mg (120 mg-180 mg) capsule 1 cap PO BID 01/10/23 pregabalin 200 mg capsule 200 mg PO TID 01/10/23 sucralfate 1 gram tablet 1 g PO TIDCM 01/10/23 lactulose 20 gram/30 mL oral solution 20 g (30 mL) PO TID #3,000 mL 01/18/23 Hospital Course Operations None Procedures None Summary of Care Provided Minutes Spent on Discharge: 45 Hospital Course: ANJEL LOPEZ, is a 72 M with a PMH as outlined who presents via the ED on 01/10/2023 with a complaint of weakness. He was brought in from his assisted living facility for generalised weakness and debility. He had recently been seen in our ED for weakness and lethargy and imaging was concerning for NPH and found to have elevated valproic acid levels. He was transferred to [facility] where his symptoms were thought to be due to his elevated valproic acid level, and not NPH. His dose of valproic acid levels were adjusted and he was discharged back to his Assisted Living Facility, from where he presented to the ED this time.? He denied any headache, blurred vision, chest pain, palpitations, dizziness, nausea or vomiting or diarrhea or any other symptoms.? Review of systems was otherwise negative.? He was hemodynamically stable. Vitals in the ED were blood pressure 133/83, pulse rate of 64 respiratory rate of 17 with oxygen saturation of 96% on room air.? CBC showed hemoglobin of 12.3 with WBC of 10.4 and platelets of 168.? Chemistry was unremarkable and urinalysis showed no evidence of UTI.? Chest x-ray showed no acute cardiopulmonary process.? Patient was with physical therapy in the ED and plan was to discharge him back to his facility.? However the assisted living facility staff refused to take him back because they were concerned he wouldnt be safe in the facility.? He was admitted to be managed for debility and generalized weakness and is for placement. Case management was consulted. Hospital course was complicated by elevated ammonia for which she was started on lactulose. His confusion did improve. His Depakote level was not elevated. He also did have some CO2 retention during hospital but this improved. Patient was called for [facility] and was discharged to the alf facility on 01/18/2023. He was discharged on p.o. lactulose. He is to follow-up with his primary care doctor and is to have monitoring of his ammonia level in the ch[facility]. Was referred to gastroenterology on outpatient basis on account of elevated ammonia. Patient seen and examined prior to discharge. He had no complaints and had an uneventful night. Review of systems otherwise negative. Labs and vitals reviewed. Home medication reviewed and reconciled. Physical Exam Const alert, oriented x3 and no apparent distress Constitutional Narrative: frail, stooped over General Appearance: cooperative and comfortable HEENT normocephalic, head/scalp atraumatic, hearing grossly normal bilaterally and moist oral mucous membranes Eyes PERRL, EOMs intact bilaterally and conjunctivae normal Neck no lymphadenopathy and supple Resp normal respiratory effort, no retractions, no use of accessory muscles and clear to auscultation bilaterally Cardio regular rate, regular rhythm, S1 normal heart sound, S2 normal heart sound and no murmurs GI normal to inspection, nondistended, normoactive bowel sounds, soft to palpation, non-tender and non-distended Extremity normal to inspection and full ROM Neuro oriented x3, CN's II-XII intact bilaterally, moves all extremities and no focal motor deficits Sensorium / Orientation: awake and alert Motor Exam: strength 5/5 throughout Psych affect normal Weight / BMI Weight Weight: 202 lb 9.677 oz Body Mass Index (BMI) 35.9 ABG / Lab / Microbiology Data Result Diagrams: 01/18/23 05:29 01/18/23 05:29 Laboratory: Laboratory Results - last 24 hr 01/18/23 05:29: WBC 5.4, RBC 2.97 L, Hgb 9.9 L, Hct 31.1 L, MCV 104.7 H, MCH 33.3 H, MCHC 31.8 L, RDW Std Deviation 52.2 H, RDW Coeff of Ronna 13.4, Plt Count 137 L, MPV 8.7, Immature Gran % (Auto) 1.100 H, Neut % (Auto) 44.0 L, Lymph % (Auto) 38.8, Randall % (Auto) 13.7 H, Eos % (Auto) 1.7, Baso % (Auto) 0.7, Absolute Neuts (auto) 2.4, Absolute Lymphs (auto) 2.09, Nucleated RBC % 0 01/18/23 05:29: Sodium 142, Potassium 4.0, Chloride 110 H, Carbon Dioxide 29.0, Anion Gap 3 L, BUN 15, Creatinine 0.48 L, Estim Creat Clear Calc 52.95, Est GFR (MDRD) Af Amer 217, Est GFR (MDRD) Non-Af 179, BUN/Creatinine Ratio 30.9 H, Glucose 102, Calcium 8.5, Total Bilirubin 0.20, AST 14 L, ALT 10 L, Alkaline Phosphatase 38 L, Total Protein 4.5 L, Albumin 2.1 L, Globulin 2.4, Albumin/Globulin Ratio 0.9 01/18/23 05:29: Ammonia 73.0 H D/C Instructions Discharge Diet: Low fat / Low cholesterol Discharge Activity: Return to Normal Activity Weight Bearing Status: Weight bearing as tolerated Call your doctor if you observe: Fever of 101 or Higher, Shortness of breath, Dizziness, Swelling in the ankles, Chest pain and Increased palpitations (irregular heartbeat) Meaningful Use Info Meaningful Use Diagnoses (Choose all that apply): None applicable Discharge Plan Admission Admit Date/Time: 01/10/23 09:22 Primary Reason for Your Visit: altered mental status, weakness, lethargy Attending Provider: Kary Recio Primary Care Provider: NILS CANTOR Consulting Providers: Kary Recio ; Nina Wilder Instructions Patient Instructions: ED Weakness (Uncertain Cause) Additional Instructions / Restrictions: DISCHARGE INSTRUCTIONS PLEASE READ -Continue your home medications -Your valproic acid level is on the high end of the therapeutic range, would recommend repeating level in 3 to 5 days to verify no further adjustments need to be made -Please call your primary care provider's office upon discharge to schedule a hospital follow up within 1 week. -For any concerning signs or symptoms please call 911 or proceed to the nearest emergency department Discharge Orders/Prescriptions Prescriptions: New lactulose 20 gram/30 mL solution 20 g PO TID Qty: 3000 2RF Rx Instructions: titrate until patient is having 2-3 loose stools daily Continued ascorbic acid (vitamin C) 500 mg capsule 500 mg PO DAILY@1200 pantoprazole 40 mg tablet,delayed release (DR/EC) 40 mg PO DAILY montelukast 10 mg tablet 10 mg PO QHS loratadine 10 mg capsule 10 mg PO QHS atorvastatin 40 MG tablet 40 mg PO QHS alendronate 70 MG tablet 70 mg PO LEON clopidogrel 75 MG tablet 75 mg PO DAILY allopurinol 100 MG tablet 100 mg PO QHS levothyroxine 50 MCG tablet 50 mcg PO DAILY finasteride 5 MG tablet 5 mg PO DAILY spironolactone 25 mg tablet 25 mg PO QODAY olanzapine 5 mg tablet,disintegrating 10 mg PO QHS ropinirole 1 MG tablet 1 mg PO TID potassium chloride 20 MEQ tablet,ER particles/crystals 20 meq PO BID magnesium oxide 400 MG tablet 400 mg PO QHS cholecalciferol (vitamin D3) 2,000 UNIT capsule 2,000 unit PO DAILY venlafaxine 150 mg capsule,extended release 24hr 150 mg PO DAILY valproic acid (as sodium salt) 250 mg/5 mL Solution 1,000 mg PO TID bumetanide 1 mg Tablet 2 mg PO DAILY levetiracetam 750 mg Tablet 1,500 mg PO BID sucralfate 1 gram Tablet 1 g PO TIDCM alfuzosin 10 mg tablet extended release 24 hr 10 mg PO QHS Label Comments: 1 TABLET BY MOUTH ATABEDTIME DX: URINARY URGENCYSR pregabalin 200 mg Capsule 200 mg PO TID omega 1-ljq-mxl-fish oil 1,000 mg (120 mg-180 mg) Capsule 1 cap PO BID ferrous gluconate 270 mg (27 mg iron) Tablet 270 mg PO DAILY Discontinued acetaminophen 325 mg tablet 1,300 mg PO BID Label Comments: 4 TABLETS (1300MG) [facility] TWICE DAILY / DX:E Referrals / Follow Up: NILS CANTOR [Other] NILS CANTOR [Other] Doctor,Your [Non-Staff] - 1 Day for another exam Disposition Disposition (needs filled in before D/C Order can be placed): [facility] Facility Charges/Coding Visit Charges Inpatient E&M: 95634 Disch Hosp >30min
--- NOTE | 2023-01-18 15:12 | PHA.DC.MR ---
Pharmacy Service has performed discharge medication reconciliation for this patient upon transfer to [facility]. Home Medications alendronate 70 mg tablet 70 mg PO LEON OSTEOPOROSIS 12/07/16 allopurinol 100 mg tablet 100 mg PO QHS GOUT 12/07/16 atorvastatin 40 mg tablet 40 mg PO QHS CHOLESTEROL 12/07/16 clopidogrel 75 mg tablet 75 mg PO DAILY ANTIPLATELET 12/07/16 finasteride 5 mg tablet 5 mg PO DAILY PROSTATE 12/07/16 levothyroxine 50 mcg tablet 50 mcg PO DAILY THYROID 12/07/16 ascorbic acid (vitamin C) 500 mg capsule 500 mg PO DAILY@1200 SUPPLEMENT 03/17/19 montelukast 10 mg tablet 10 mg PO QHS ALLERGIES 03/17/19 pantoprazole 40 mg tablet,delayed release 40 mg PO DAILY ACID REFLUX 03/17/19 cholecalciferol (vitamin D3) 50 mcg (2,000 unit) capsule 2,000 unit PO DAILY SUPPLEMENT 07/11/19 magnesium oxide 400 mg (241.3 mg magnesium) tablet 400 mg PO QHS SUPPLEMENT 07/11/19 potassium chloride 20 mEq tablet,extended release(part/cryst) 20 meq PO BID SUPPLEMENT 07/11/19 ropinirole 1 mg tablet 1 mg PO TID SEIZURES 07/11/19 loratadine 10 mg capsule 10 mg PO QHS 07/15/20 olanzapine 5 mg disintegrating tablet 10 mg PO QHS DEPRESSION 07/15/20 spironolactone 25 mg tablet 25 mg PO QODAY DIURETIC 07/15/20 venlafaxine 150 mg capsule,extended release 24 hr 150 mg PO DAILY DEPRESSION 07/15/20 valproic acid (as sodium salt) 250 mg/5 mL oral solution 1,000 mg PO TID 07/01/22 bumetanide 1 mg tablet 2 mg PO DAILY DIURETIC 01/04/23 levetiracetam 750 mg tablet 1,500 mg PO BID seizures 01/04/23 alfuzosin 10 mg tablet,extended release 24 hr 10 mg PO QHS urinary urgency 01/10/23 ferrous gluconate 270 mg (27 mg iron) tablet 270 mg PO DAILY supplement 01/10/23 omega 8-jcl-wlt-fish oil 1,000 mg (120 mg-180 mg) capsule 1 cap PO BID 01/10/23 pregabalin 200 mg capsule 200 mg PO TID 01/10/23 sucralfate 1 gram tablet 1 g PO TIDCM 01/10/23 lactulose 20 gram/30 mL oral solution 20 g (30 mL) PO TID #3,000 mL 01/18/23 The patient's discharge medication list was reviewed for discrepancies and discrepancies were resolved.
== END 2023-01-18 18:15 | disposition skilled nursing facility (03) ==
LOC: ED 09:32 → MS3 09:39
PROVIDERS: Internal Medicine; Admitting Provider Student in an Organized Health Care Education/Training Program; Emergency Provider Emergency Medicine; Visit Provider Student in an Organized Health Care Education/Training Program
DX: R53.1 Weakness (principal); G40.909 Epilepsy, unspecified, not intractable, without status epilepticus; E78.00 Pure hypercholesterolemia, unspecified; I10 Essential (primary) hypertension; R53.81 Other malaise; D64.9 Anemia, unspecified; Z79.899 Other long term (current) drug therapy; K21.9 Gastro-esophageal reflux disease without esophagitis; M10.9 Gout, unspecified; Z79.02 Long term (current) use of antithrombotics/antiplatelets; E03.9 Hypothyroidism, unspecified; Z79.890 Hormone replacement therapy; F32.A Depression, unspecified; R27.0 Ataxia, unspecified; G47.33 Obstructive sleep apnea (adult) (pediatric); R06.02 Shortness of breath
CPT/HCPCS: 36415; 36600; 71045; 80048; 80053; 80164; 81001; 82140; 82803; 83880; 84484; 85025; 92610; 93005; 96360; 96361; 96372; 97110; 97116; 97162; 97166; 97530; 97535; 97802; 97803; 99221; 99285; J7030; A4216; G0378

== ENCOUNTER → 2023-02-05 | Outpatient (REF) | payer MEDICARE, MEDICAID, SELFPAY ==
[2023-02-05 08:42] LABS: Valproic Acid (Depakene) Level 81 ug/mL (50-100)
[2023-02-08 20:07] LABS: KEPPRA (LEVETIRACETAM) 33.4 ug/mL (10.0-40.0)
== END ==
LOC: OLS.SW 05:00
DX: G40.219 Localization-related (focal) (partial) symptomatic epilepsy and epileptic syndromes with complex partial seizures, intractable, without status epilepticus (principal); I10 Essential (primary) hypertension; R27.8 Other lack of coordination; Z79.899 Other long term (current) drug therapy
CPT/HCPCS: 36415; 80164; 80177; 82140

== ENCOUNTER → 2023-02-09 | Outpatient (REF) | payer MEDICARE, MEDICAID, SELFPAY ==
[2023-02-09 08:28] LABS: Hemoglobin 13.1 g/dL (13.0-16.5); Mean Corpuscular Hgb 32.9 pg (27.0-32.0); Mean Platelet Vol. 9.3 fl (6.2-12.0); Platelet Count 185 K/mm3 (150-450); RBC Distribution Width CV 12.2 % (11.6-14.6); RBC Distribution Width SD 46.2 fl (35.1-43.9); Red Blood Count 3.98 M/mm3 (4.6-6.2); White Blood Count 7.2 K/mm3 (4.4-11.0)
[2023-02-09 08:35] LABS: Anion Gap 6 (5-15); BUN 14 mg/dL (7-18); BUN/Creat Ratio 21.5 RATIO (10-20); Calcium,Total 9.2 mg/dL (8.5-10.1); Chloride 106 mmol/L (98-107); Creatinine, Serum 0.65 mg/dL (0.70-1.30); EST Glomerular Filtration Rate 128 mL/min (>60); Est Glom Filt Rate - Afr Amer 155 mL/min (>60); Glucose 95 mg/dL (74-106); Magnesium 2.7 mg/dL (1.6-2.6); Potassium 3.9 mmol/L (3.5-5.1); Sodium Level 143 mmol/L (136-145)
== END ==
LOC: OLS.SW 05:00
PROVIDERS: Visit Provider Internal Medicine
DX: K21.9 Gastro-esophageal reflux disease without esophagitis (principal); I10 Essential (primary) hypertension; E78.5 Hyperlipidemia, unspecified
CPT/HCPCS: 36415; 80048; 83735; 85027

== ENCOUNTER → 2023-05-24 | Outpatient (REF) | payer MEDICARE, MEDICAID, SELFPAY ==
[2023-05-24 08:40] LABS: Cholesterol 143 mg/dL (200); High Density Lipoprotein 54 mg/dL; Triglycerides 102 mg/dL; Very Low Density Lipoprotein 20 mg/dL (5-40)
== END ==
LOC: OLS.SW 06:03
PROVIDERS: Referring Provider Internal Medicine; Visit Provider Internal Medicine
DX: N40.0 Benign prostatic hyperplasia without lower urinary tract symptoms (principal); Z79.899 Other long term (current) drug therapy
CPT/HCPCS: 36415; 80061

== ENCOUNTER → 2023-08-23 | Outpatient (REF) | payer MEDICARE, MEDICAID, SELFPAY ==
[2023-08-23 08:17] LABS: Absolute Neutrophil Count 2.5 X10^3/uL (2.0-7.7); Basophil# 0.04 X10^3/uL; Basophil% 0.7 % (0-1); Eosinophil# 0.12 X10^3/uL; Eosinophils% 2.2 % (0-5); Hematocrit 38.6 % (40-54); Hemoglobin 12.3 g/dL (13.0-16.5); Lymphocyte % 34.2 % (19-41); Mean Corp Hgb Conc 31.9 g/dL (32-36); Mean Corpuscular Hgb 29.9 pg (27.0-32.0); Mean Corpuscular Volume 93.7 fL (80-94); Mean Platelet Vol. 9.3 fl (6.2-12.0); Monocyte# 0.89 X10^3/uL; NRBC Flagged by Analyzer 0 % (0-5); Neutrophil # 2.54 X10^3/uL (2.7-7.7); Neutrophil % 45.6 % (47-70); Platelet Count 174 K/mm3 (150-450); RBC Distribution Width CV 13.4 % (11.6-14.6); RBC Distribution Width SD 46.4 fl (35.1-43.9); Red Blood Count 4.12 M/mm3 (4.6-6.2); White Blood Count 5.6 K/mm3 (4.4-11.0)
[2023-08-23 08:30] LABS: Valproic Acid (Depakene) Level 60 ug/mL (50-100)
[2023-08-23 08:47] LABS: Anion Gap 7 (5-15); BUN 18 mg/dL (7-18); Calcium,Total 8.5 mg/dL (8.5-10.1); Chloride 104 mmol/L (98-107); Creatinine, Serum 0.69 mg/dL (0.70-1.30); EST Glomerular Filtration Rate 119 mL/min (>60); Est Glom Filt Rate - Afr Amer 144 mL/min (>60); Glucose 122 mg/dL (74-106); Magnesium 2.6 mg/dL (1.6-2.6); Potassium 3.7 mmol/L (3.5-5.1); Sodium Level 142 mmol/L (136-145); Uric Acid 5.6 mg/dL (3.5-7.2)
[2023-08-25 12:09] LABS: KEPPRA (LEVETIRACETAM) 51.4 ug/mL (10.0-40.0)
== END ==
LOC: OLS.SW 04:00
PROVIDERS: Visit Provider Internal Medicine
DX: I10 Essential (primary) hypertension (principal); Z79.899 Other long term (current) drug therapy
CPT/HCPCS: 36415; 80048; 80164; 80177; 83735; 84550; 85025

== ENCOUNTER → 2023-08-30 | Outpatient (REF) | payer MEDICARE, MEDICAID, SELFPAY | LOC: OLS.SW 05:00 | PROVIDERS: Visit Provider Internal Medicine | DX: G40.909 Epilepsy, unspecified, not intractable, without status epilepticus (principal) | CPT/HCPCS: 36415; 80177 ==

== ENCOUNTER → 2023-09-13 | Outpatient (REF) | payer MEDICARE, MEDICAID, SELFPAY ==
[2023-09-13 09:22] LABS: Anion Gap 6 (5-15); BUN 14 mg/dL (7-18); BUN/Creat Ratio 21.8 RATIO (10-20); Calcium,Total 8.4 mg/dL (8.5-10.1); Chloride 105 mmol/L (98-107); Creatinine, Serum 0.64 mg/dL (0.70-1.30); EST Glomerular Filtration Rate 130 mL/min (>60); Est Glom Filt Rate - Afr Amer 157 mL/min (>60); Glucose 100 mg/dL (74-106); Potassium 4.3 mmol/L (3.5-5.1); Sodium Level 139 mmol/L (136-145)
== END ==
LOC: OLS.SW 06:55
PROVIDERS: Visit Provider Internal Medicine
DX: R53.83 Other fatigue (principal)
CPT/HCPCS: 36415; 80048

== ENCOUNTER → 2023-09-22 | Outpatient (REF) | payer MEDICARE, MEDICAID, SELFPAY ==
--- OUTSIDE RECORDS SUMMARY | 2023-09-22 04:12 | XMS RPT_ITS | CCD ---
Author Name Unknown Address [address] [place] [address] Organization [facility] Care Team Providers Care [employer] Winding Operator Name Role Phone MEG JOE Unavailable Unavailable MEG JOE Unavailable Unavailable IMCA Unavailable Unavailable Fred Cantor Primary Care Provider [phone] Fred Cantor Primary Care Provider [phone] ELIZABETH CURRAN Attending Unavailable FRED CANTOR Primary Care Unavailable ALTHEA GAMBLE Attending Unavailable FRED CANTOR Referring Unavailable FRED CANTOR Primary Care Unavailable MATEO JARAMILLO Attending Unavailable MATEO JARAMILLO Referring Unavailable FRED CANTOR Primary Care Unavailable Fred Cantor Primary Care Provider FRED CANTOR Primary Care Unavailable LORENE ORTIZ Attending Unavailable MARY KATE MALIK Referring Unavailab KERON Christensen Admitting Unavailable MARIELLA HILARIO Unavailable STANTON ANDREWS Attending Unavailable Allergies Allergy Classification Reported Allergen(s) Allergy Type Date of Onset Reaction(s) Facility (10 sources) nickel; Translations: [NICKEL] Drug Allergy 01-16-2013 Rash [facility] Repository (10 sources) OXcarbazepine; Translations: [OXCARBAZEPINE] Drug Allergy 06-13-2005 [facility] Repository (10 sources) salicylic acid; Translations: [SALICYLATES] Drug Allergy 06-13-2005 [facility] Repository Medications Current Medications Medication Drug Class(es) Dates Sig (Normalized) Sig (Original) valproic acid 50 mg/ml oral solution (13 sources) Mood Stabilizer, Anti-epileptic Agent Start: 03-13-2022 End: 03-28-2023 take 20 mL by mouth three times daily valproic acid (DEPAKENE) 250 mg/5 mL syrup Take 20 mL by mouth three times daily. 1800 mL 5 09/29/2022 03/28/2023 Active Completed/Discontinued Medications Medication Drug Class(es) Dates Sig (Normalized) Sig (Original) 8 hr acetaminophen 650 mg extended release oral tablet (7 sources) take 2 tablets by mouth twice daily acetaminophen 650 mg CR tablet Take 1,300 mg by mouth twice daily. 0 Active Problems Active Problems Problem Classification Problem Date Documented Date Episodic/Chronic Anxiety disorders (7 sources) Anxiety neurosis ; Translations: [Generalized anxiety disorder] Onset: 01-19-2014 01-19-2014 Chronic Disorders of lipid metabolism (7 sources) Mixed hyperlipidemia; Translations: [Mixed hyperlipidemia] Onset: 10-29-2005 03-22-2020 Chronic E Codes: Fall (1 source) Unspecified fall, initial encounter; Translations: [Fall, initial encounter] Onset: 01-08-2023 Episodic Epilepsy; convulsions (9 sources) Generalized convulsive epilepsy; Translations: [Generalized idiopathic epilepsy and epileptic syndromes, not intractable, without status epilepticus] Onset: 11-13-2005 03-22-2020 Chronic Essential hypertension (7 sources) Essential hypertension; Translations: [Essential (primary) hypertension] Onset: 11-06-2005 03-22-2020 Chronic Gout and other crystal arthropathies (7 sources) Articular gout; Translations: [Gout, unspecified] Onset: 08-24-2015 03-22-2020 Chronic Mood disorders (7 sources) Depressive disorder; Translations: [Depression] Onset: 01-19-2014 03-22-2020 Chronic Nutritional deficiencies (7 sources) Vitamin D deficiency; Translations: [Vitamin D deficiency, unspecified] Onset: 08-10-2014 03-22-2020 Chronic Other and unspecified benign neoplasm (1 source) History of polyp of colon; Translations: [Personal history of colonic polyps] Episodic Other nervous system disorders (1 source) Unsteadiness on feet; Translations: [Unsteady gait] Onset: 01-08-2023 Episodic Other nutritional; endocrine; and metabolic disorders (7 sources) Metabolic syndrome X; Translations: [Metabolic syndrome] Onset: 01-19-2014 01-19-2014 Chronic Other nutritional; endocrine; and metabolic disorders (7 sources) Body mass index 40+ - severely obese; Translations: [Morbid (severe) obesity due to excess calories] Onset: 02-04-2017 03-22-2020 Chronic Other nutritional; endocrine; and metabolic disorders (1 source) Obesity, unspecified; Translations: [Obesity (BMI 30.0-34.9)] Onset: 01-08-2023 Chronic Other screening for suspected conditions (not mental disorders or infectious disease) (1 source) Finding of other specified substances, not normally found in blood; Translations: [Elevated anticonvulsant drug level] Onset: 01-08-2023 Episodic Schizophrenia and other psychotic disorders (7 sources) Chronic schizoaffective schizophrenia; Translations: [Schizoaffective disorder, unspecified] Onset: 07-14-2013 03-22-2020 Chronic Thyroid disorders (7 sources) Hypothyroidism; Translations: [Hypothyroidism, unspecified] Onset: 01-19-2014 03-22-2020 Chronic Past or Other Problems Problem Classification Problem Date Documented Da te Episodic/Chronic Cancer of colon (8 sources) History of malignant neoplasm of colon; Translations: [Personal history of other malignant neoplasm of large intestine] Onset: 02-07-2015 02-07-2015 Episodic Diabetes mellitus without complication (7 sources) Hyperglycemia; Translations: [Hyperglycemia, unspecified] Onset: 01-19-2014 01-19-2014 Episodic Fluid and electrolyte disorders (7 sources) Hypervolemia; Translations: [Fluid overload, unspecified] Onset: 02-04-2017 02-04-2017 Episodic Nonspecific chest pain (7 sources) Atypical chest pain; Translations: [Other chest pain] Onset: 04-15-2017 04-15-2017 Episodic Other connective tissue disease (7 sources) Cramp in lower limb; Translations: [Cramp and spasm] Onset: 01-19-2014 01-19-2014 Episodic Other connective tissue disease (7 sources) Musculoskeletal finding; Translations: [Other symptoms and signs involving the musculoskeletal system] Onset: 03-19-2015 03-19-2015 Episodic Other diseases of veins and lymphatics (7 sources) Peripheral venous insufficiency; Translations: [Venous insufficiency (chronic) (peripheral)] Onset: 01-28-2016 01-28-2016 Episodic Other lower respiratory disease (7 sources) Dyspnea; Translations: [Shortness of breath] Onset: 02-04-2017 03-22-2020 Episodic Other nervous system disorders (7 sources) Impairment of balance; Translations: [Other abnormalities of gait and mobility] Onset: 03-19-2015 03-19-2015 Episodic Phlebitis; thrombophlebitis and thromboembolism (7 sources) H/O: Deep vein thrombosis; Translations: [Personal history of other venous thrombosis and embolism] Onset: 02-24-2011 10-02-2020 Episodic Residual codes; unclassified (7 sources) Localized edema; Translations: [Localized edema] Onset: 02-04-2017 03-22-2020 Episodic Results Test Name Value Interpretation Reference Range Facil ity Encounters Encounter Date Encounter Type Care Provider Facility Start: 09-16-2023 End: 09-16-2023 ambulatory STANTON ANDREWS Not Available Start: 01-08-2023 End: 01-09-2023 Evaluation and management of inpatient FRED PITTMAN CANTOR Facility:[facility] Start: 09-29-2022 Refill Perri telles MD Work Phone: Neurology Procedures Date Procedure Procedure Detail Performing Clinician Start: 03-26-2017 Colonoscopy Tabatha ruano [employer] Work Phone: Plan of Treatment Date Care Activity Detail Author Start: 04-14-2023 BP CONTROLLED (<130/80) BP CONTROLLED (<130/80) [facility] Start: 03-18-2023 DIABETES SCREEN DIABETES SCREEN [facility] Start: 10-04-2022 ADVANCE DIRECTIVE DISCUSSION ADVANCE DIRECTIVE DISCUSSION [facility] Start: 06-27-2022 COVID-19 VACCINE (4 - Booster for Moderna series) COVID-19 VACCINE (4 - Booster for Moderna series) [facility] Start: 06-04-2022 Influenza vaccination [facility] Start: 04-21-2022 COVID-19 VACCINE (4 - Booster for Moderna series) COVID-19 VACCINE (4 - Booster for Moderna series) [facility] Start: 03-10-2022 End: 05-10-2022 Comprehensive metabolic 2000 panel - Serum or Plasma COMP METABOLIC PANEL Lab Routine 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) Expected: 03/10/2022, Expires: 05/10/2022 [facility] Work Phone: Immunizations Immunization Date Immunization Notes Care Provider Fa alexa 07-26-2015 influenza, high dose seasonal, preservative-free Tabatha Obregon [employer] Work Phone: [facility] 06-04-2015 zoster vaccine, live Tabatha guthrie [employer] Work Phone: [facility] 11-02-2014 pneumococcal conjuga te vaccine, 13 valent Tabatha Obregon [employer] Work Phone: [facility] 08-02-2014 influenza, seasonal, injectable Tabatha Obregon [employer] Work Phone: [facility] 07-14-2013 influenza virus vacc ine, unspecified formulation Tabatha Obregon [employer] Work Phone: [facility] 06-05-2006 tetanus and diphther ia toxoids, adsorbed, preservative free, for adult use (2 Lf of tetanus toxoid and 2 Lf of diphtheria toxoid) Tabatha Obregon [employer] Work Phone: [facility] 07-30-2005 influenza virus vacc ine, unspecified formulation Tabatha Obregon [employer] Work Phone: [facility] Work Phone: 06-13-2005 tetanus and diphther ia toxoids, adsorbed, preservative free, for adult use (2 Lf of tetanus toxoid and 2 Lf of diphtheria toxoid) Tabatha Obregon [employer] Work Phone: [facility] Work Phone: 09-11-1997 pneumococcal polysaccharide vaccine, 23 valent Tabatha Obregon [employer] Work Phone: [facility] Work Phone: Payers Date Payer Category Payer Unknown [id number] 2017 Medicaid UHC MEDICAID [facility] MEDICAID [id number] 2017-Present [phone] [address] [place] [address] Medicaid [id number] 2017 Medicaid UHC MEDICAID [facility] MEDICAID [id number] 2017-Present [phone] [address] [place] [address] Medicaid [id number] 2017 Medicare [id number] 1950 Unknown [id number] Social History Date Type Detail Facility Start: 07-31-2015 Tobacco smoking stat us [facility] Never smoked tobacco [facility] Start: 11-11-2020 End: 07-31-2022 Alcohol intake Current non-drinker of alcohol (finding) [facility] Start: 1950 Sex Assigned At Not on file [facility] Start: 01-17-2022 End: 07-31-2022 Exposure to SARS-CoV-2 (event) Not sure [facility] Start: 07-31-2015 Tobacco use and exposure Smoke less tobacco non-user [facility] Clinical Notes 01-28-2016 to 01-09-2023 Telephone Encounter - Yury Gerber PA-C - 09/29/2022 3:00 PM ESTTelephone Encounter - Silvialorraine Trent - 09/29/2022 8:51 AM Emmanuel Jaramillo MD - 07/31/2022 9:23 AM EDT Note Date & Type Note Facility 01-09-2023 Note HNO ID: [id number] Author: Anitha Burnette RN Service: Nursing Author Type: Registered Nurse Type: Nursing Progress Note Filed: 01/09/2023 2:00 PM Note Text: Updated patient's sister, Cha, on status and discharge tonight. [facility] 01-08-2023 Note HNO ID: [id number] Author: Adán De MD Service: Neurology General Author Type: Physician Type: Plan of Care Filed: 01/08/2023 2:40 PM Note Text: Staff Addendum: I have seen the patient, performed a neurological examination and reviewed the records personally with the resident/midlevel above and agree with the documentation. Please see their note for details. 72 year old male with chronic gait difficulties who is presenting to [facility] as a transfer from [facility] d/t concerns of NPH. Patient had a fall 5 days ago where he reportedly slipped and fell. He had subsequent gait difficulty and reports accompanying back pain. On exam, he has severe camptocormia and has limited upgaze when ambulating. He also demonstrates bilateral tremors which are present at rest and with action. His gait is walker dependent and appears to be impaired due to multifactorial reasons. On outside lab review, he had a toxic VPA level on presentation at 126. At this time, I do not suspect his acute gait disturbance is related to NPH given 1. Gait difficulty started after his provoked fall, 2. Confounding factor of VPA toxicity also potentially contributing 3. Ventriculomegaly has been demonstrated on prior images from 2018 as well. Additionally, even if determined to be NPH, he is unlikely to be a surgical candidate. At this time, plan XR L/T spine to ensure no acute fx in setting of fall and subsequent gait worsening Recheck VPA levels, add on ammonia levels Home regimen in epic is incorrect, should not be on redundant therapy with both liquid and tab Depakote (likely 2 separate orders placed at different time frames), per epilepsy notes, he is to be on 1000 mg TID Outpatient follow up with epilepsy service post discharge Adán De MD Staff Neurologist [facility] 01-08-2023 Note HNO ID: [id number] Author: Lorene Ortiz MD Service: Hospital Medicine Author Type: Physician Type: Progress Notes Filed: 01/08/2023 12:17 PM Note Text: INPATIENT HOSPITAL MEDICINE PROGRESS NOTE Subjective Patient had a fall yesterday he said he tripped. Lives in assisted living. Alert and oriented x3. He feels back to his normal self Patient denies sob, fever, headache, N/V, diarrhea, or dysuria. Objective PHYSICAL EXAM: BP 106/64 Pulse 84 Temp (Src) 98.8 (Oral) Resp 18 Ht 5' 3 (1.60m) Wt 196 lb 10.4 oz (89.2kg) SpO2 98% BMI 34.84 kg/(m2). O2 Therapy: Room Air General: No acute distress Eyes: Sclera anicteric Pulm: CTAB CV: RRR Abd: Soft, non-tender, non-distended. BS+ Ext: +1 edema. Atraumatic Neuro: AANDO x 3. 4/5 in all limbs and has tremors. DATA: LABORATORY TESTS: CBC: Recent Labs 01/08/23315 WBC 8.90 HB 13.1 PLT 160 MCV 100.2* NEUTP 52.8 ABSNEUT 4.70 LYMPHP 31.6 CHEM: Recent Labs 01/08/23315 NA 142 K 3.8 CA 9.4 MG 1.7 ANION 10 CHLOR 104 CO2 28 GLUC 90 BUN 11 CREAT 0.65* HEPATIC: Recent Labs 01/08/23315 ALT 7* AST 15 TBILI 0.3 ALKPHOS 58 ALB 3.2* TPROT 5.6* Imaging: CT-STROKE Brain/Head without Cont IMPORT Result Date: 01/04/2023 Images were obtained outside of [facility] OT-Chest 1 View IMPORT Result Date: 01/04/2023 Images were obtained outside of [facility] Most recent EKG normal sinus rhythm Blood and Urine Culture: Positive Micro-30 Days No results found for the last 720 hours. Problem list Unsteady gait POA: Yes Mixed hyperlipidemia POA: Yes Essential hypertension POA: Yes Generalized convulsive epilepsy (HCC) POA: Yes Schizoaffective disorder, chronic condition (HCC) POA: Yes Hypothyroid POA: Yes Obesity (BMI 30.0-34.9) POA: Yes Elevated anticonvulsant drug level POA: Yes Assessment and plan: Anjel Ross is a 72 year old with PMH of CAD, hypothyroidism, HLD, H/L colon cancer stage II s/p resection, seizures on Depakote, HTN, and KYA He was admitted to [facility] 5 days prior due to weakness and unsteady gait. He had a fall on the day of admission. No focal neurologic deficits. CT indicated possible NPH. Teleneurologist advised transfer for neurology consult +/- LP. Neurology at evaluated. Found to have supratherapeutic levels of Depakote and that could explain the unsteady gait and weakness. Low concern for NPH. PT/OT evaluated patient okay to go home. Depakote dose was adjusted and level monitored. # Unsteady gait presumed secondary to supratherapeutic Depakote #Seizures -Appreciate neurology recs - Depakote level ordered by neurology dose as per neurology. Level need to return to normal nontoxic level before discharge - PT/OT. Okay for discharge to assisted living #Low back pain -X-ray lumbar spine #Hypothyroidism. Continue levothyroxine 50 mg daily #Hyperlipidemia. Continue lovastatin 40 mg daily #HTN. Continue bumetanide 2 mg p.o. OD, and doxazosin 1 mg at bedtime #BPH continue finasteride 5 mg daily Plan of care discussed with: Provider, RN, Patient. QUALITY METRICS: VTE Prophylaxis: Pneumatic Compression Device Disposition: Home Functional Status Prior to Admit: Independent Code status: Full code Disclaimer This dictation was created using voice recognition software. Phonetic and/or minor grammatical errors may exist. SIGNATURE: Lorene Ortiz MD PATIENT NAME: Anjel Ross DATE: 01/08/2023 TIME: 12:14 PM [facility] 09-29-2022 Miscellaneous Notes The following approved medication requests have been transmitted electronically. Requested Prescriptions Signed Prescriptions Disp Refills valproic acid (DEPAKENE) 250 mg/5 mL syrup 1800 mL 5 Sig: Take 20 mL by mouth three times daily. Authorizing Provider: YURY GREBER PA-C Prescription Refill: Requested by: pharmacy Please Fax Caller Contact Number: Pharmacy Name: [facility] Pharmacy Number: [phone] Generic/ brand: 30 or 90 day supply requested: 90 Last appointment: 03/06/22 Next Appointment: none Patient of Dr. Chung documented in this encounter [facility] 07-31-2022 Note HNO ID: [id number] Author: Mateo Jaramillo MD Service: ? Author Type: Physician Type: Progress Notes Filed: 07/31/2022 9:27 AM Note Text: Subjective: Patient is status post a colonoscopy completed at [facility] on 07/06/2022. Patient was noted to have a tubular adenoma of the sigmoid colon otherwise it was within normal limits. He is moving his bowels without difficulty. He is not complaining of any abdominal. Objective: There were no vitals taken for this visit. Abdomen is soft and nontender Assessment:Personal history of colon cancer (primary encounter diagnosis) History of colonic polyps Plan: Patient will need to have another colonoscopy in 5 years. [facility] 07-31-2022 History of Present illness Narrative Subjective: Patient is status post a colonoscopy completed at [facility] on 07/06/2022. Patient was noted to have a tubular adenoma of the sigmoid colon otherwise it was within normal limits. He is moving his bowels without difficulty. He is not complaining of any abdominal. Objective: There were no vitals taken for this visit. Abdomen is soft and nontender Assessment:Personal history of colon cancer (primary encounter diagnosis) History of colonic polyps Plan: Patient will need to have another colonoscopy in 5 years. documented in this encounter [facility] 07-14-2022 Miscellaneous Notes They will call back to schedule.Georgie Alatorre Pss Please call patient to schedule a virtual or office visit to view colonoscopy results. Thank you. Anjel# [phone] Patient called requesting results from colonoscopy. documented in this encounter [facility] 04-14-2022 Note HNO ID: [id number] Author: Althea Gamble PA-C Service: ? Author Type: Physician Wrist Hemmer Type: Progress Notes Filed: 04/27/2022 9:34 AM Note Text: HISTORY AND PHYSICAL Anjel Ross 1950 REFERRING PHYSICIAN: Fred Cantor DO CHIEF COMPLAINT: Consult (colonoscopy consult) HPI: The patient is a 71 year old male referred for endoscopy. Anjel notes a personal history of colon cancer diagnosed in 2014. He is s/p right hemicolectomy 01/21/15 which showed invasive adenocarcinoma. Most recent colonoscopy 03/26/[address] Anjel Nagy at [facility]. Patient was noted to have a diminutive rectal polyp and patent ileocolonic anastomosis. Three year follow-up colonoscopy was recommended. Patient denies any change in bowel habits, weight changes, blood in stools, black tarry stools or abdominal pain. The patient notes no upper GI complaints. Patient's past medical history significant for colon cancer as noted above, coronary artery disease, hypertension, seizures. Patient follows with Dr. Fred Cantor in primary care for his chronic medical conditions. PAST MEDICAL HISTORY Diagnosis Date - Anemia - Black stools started 03/11/15 - Coronary artery disease - Hypertrophy of prostate - Hypothyroid - Organic brain syndrome - Osteoarthritis - Osteopenia - Other and unspecified hyperlipidemia - Personal history of colon cancer - Seizures (HCC) - Unspecified essential hypertension 11/06/2005 PAST SURGICAL HISTORY Procedure Laterality Date - CIRCUMCISION AGE >28 DAYS AGE 6 - COLONOSCOPY FLX DX W/COLLJ SPEC WHEN PFRMD 09/11/2005 Colonoscopy - COLONOSCOPY FLX DX W/COLLJ SPEC WHEN PFRMD 12/06/14 Colonoscopy - COLONOSCOPY FLX DX W/COLLJ SPEC WHEN PFRMD 03/25/16 Colonoscopy outpt [facility] - COLSC FLX W/REMOVAL LESION BY HOT BX FORCEPS 03/26/2017 - ESOPHAGOGASTRODUODENOSCOPY TRANSORAL DIAGNOSTIC 11/22/14 EGD - ESOPHAGOGASTRODUODENOSCOPY TRANSORAL DIAGNOSTIC 12/06/14 EGD - HEMIARTHROPLASTY HIP PARTIAL 90s Hip replacement, partial Rt - LAPAROSCOPY SURG CHOLECYSTECTOMY 01-21-15 WITH COLON - LAPS COLECTOMY PRTL W/RMVL TERMINAL ILEUM 01-21-15 - PAST SURGICAL HISTORY OF ORTHOPEDIC ON KNEES Current Outpatient Medications Medication Sig - valproic acid (DEPAKENE) 250 mg/5 mL syrup Take 20 mL by mouth three times daily. - levETIRAcetam (KEPPRA) 750 mg tablet 2 TABLETS (1,500MG) BY MOUTH 2 TIMES A DAY DX: / NURSE TO REORDER - divalproex ER (DEPAKOTE ER) 500 mg 24 hr tablet Take 2 tablets by mouth three times daily. - spironolactone (ALDACTONE) 25 mg tablet Take 1 tablet by mouth every other day. - spironolactone (ALDACTONE) 50 mg tablet Take 50 mg by mouth every 48 hours. alternating with 25 mg tablets - alendronate (FOSAMAX) 70 mg tablet Take 70 mg by mouth one time a week. - magnesium oxide (MAG-OX) 400 mg (241.3 mg magnesium) tablet Take 400 mg by mouth daily at bedtime. - sucralfate (CARAFATE) 1 gram tablet Take 1 tablet by mouth three times daily with meals. - OLANZapine (ZYPREXA) 7.5 mg tablet Take 1 tablet by mouth daily at bedtime. - venlafaxine ER (EFFEXOR XR) 150 mg 24 hr capsule Take 1 capsule by mouth once daily. Take Effexor XR 150 mg with Effexor XR 37.5 mg daily - ascorbic acid, vitamin C, (VITAMIN C) 500 mg tablet Take 500 mg by mouth daily with lunch. - Vitamin E, dl, acetate, (VITAMIN E) 400 unit capsule Take 400 Units by mouth every other day. Once capsule by mouth every other day with lunch - montelukast (SINGULAIR) 10 mg tablet Take 10 mg by mouth daily at bedtime. - loratadine (CLARITIN) 10 mg tablet Take 10 mg by mouth daily at bedtime. - ferrous gluconate 270 mg (27 mg iron) tab Take 1 tablet by mouth daily with food. - Pregabalin (LYRICA) 200 mg capsule Take 200 mg by mouth three times daily. - pantoprazole DR (PROTONIX) 40 mg tablet Take 40 mg by mouth once daily. - bethanechol (URECHOLINE) 25 mg tablet Take 25 mg by mouth three times daily. - acetaminophen (TYLENOL ARTHRITIS PAIN) 650 mg CR tablet Take 1,300 mg by mouth twice daily. - cholecalciferol (VITAMIN D-3) 2,000 unit tablet Take 2,000 Units by mouth once daily. - alfuzosin SR (UROXATRAL) 10 mg 24 hr tablet Take 10 mg by mouth daily at bedtime. - Wdyxk-4-IDO-EPA-Fish Oil (FISH OIL) 1,000 mg (120 mg-180 mg) cap Take one capsule by mouth twice daily. - bumetanide (BUMEX) 2 mg tablet Take 1 tablet by mouth once daily. - finasteride (PROSCAR) 5 mg tablet Take 1 tablet by mouth once daily. - COMPOUNDED PRESCRIPTION Home PT for upper back and neck pain. Dx:M54.2. - Diaper,Brief, Adult,Disposable (ADULT BRIEFS - LARGE) misc 1 Box four times daily as needed. 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 - atorvastatin (LIPITOR) 40 mg tablet Take 1 tablet by mouth once daily. - potassium chloride (KLOR-CON) 20 mEq (more content not included)... [facility] 03-13-2022 Miscellaneous Notes Notified Silvia rx has been sent and a PA will be completed if needed. Dorothy Talley RN The following approved medication requests have been transmitted electronically. Signed Prescriptions Disp Refills valproic acid (DEPAKENE) 250 mg/5 mL syrup 1800 mL 5 Sig: Take 20 mL by mouth three times daily. Authorizing Provider: TABATHA OBREGON APRN.CNP Recent visit 03/06/22 with Elizabeth Curran CNP: ASSESSMENT: Anjel Ross is a 71 year old male with history of seizures. No seizures that patient or stff can report. Remains on current medications. Health is stable and requires assistance with all ADL's. Staff helps him with his medications. Will continue with plan. PLAN: - LABS: cmp,LEV,VPA - Medications: -continue with VPA 1000mg TID -continue with LEV 1500mg BID -continue with Lyrica 200mg TID -continue with all regular daily medications -Follow all seizure precautions and safety measures. - Consults: none - Follow up: 6-12 months Update forwarded for review. Dorothy Talley RN Medication Concern Person Calling Silvia Rehman from [facility] Name of medication Depakote XR. Concern with medication Nurse advised pt is having difficulty swallowing pill and since XR she can't crush. Nurse is asking if can get non XR or liquid so it's not difficult for pt? Patient of Dr. Chung documented in this encounter [facility] 03-06-2022 Note HNO ID: [id number] Author: Elizabeth Curran APRN.BAKER [employer]INT Service: ? Author Type: Nurse Practitioner Type: Progress Notes Filed: 03/10/2022 9:06 AM Note Text: [facility] 03-06-2022 Note HNO ID: [id number] Author: Elizabeth Curran APRN.BAKER [employer]INT Service: ? Author Type: Nurse Practitioner Type: Progress Notes Filed: 03/10/2022 9:01 AM Note Text: [facility] VIRTUAL VISIT HISTORY OF PRESENT ILLNESS: Anjel Ross is a 71 year old male who is diagnosed with seizures, and presents today for virtual visit. They are an established patient of Dr. Chung's and was last seen on 11/11/2020. Seizures: None that he can remember Last reported GTC around 08/2020. AED's: LEV 1500mg BID VPA 1000mg TID Pregabalin 200mg TID In other health,stable for what he can tell me and staff around him. Occupation: Retired. Lives in assisted living place in [place], [place] Driving: no Mood: ok Memory: poor CURRENT OUTPATIENT MEDICATIONS: Current Outpatient Medications Medication Sig - levETIRAcetam (KEPPRA) 750 mg tablet 2 TABLETS (1,500MG) BY MOUTH 2 TIMES A DAY DX: / NURSE TO REORDER - divalproex ER (DEPAKOTE ER) 500 mg 24 hr tablet Take 2 tablets by mouth three times daily. - spironolactone (ALDACTONE) 25 mg tablet Take 1 tablet by mouth every other day. - spironolactone (ALDACTONE) 50 mg tablet Take 50 mg by mouth every 48 hours. alternating with 25 mg tablets - alendronate (FOSAMAX) 70 mg tablet Take 70 mg by mouth one time a week. - magnesium oxide (MAG-OX) 400 mg (241.3 mg magnesium) tablet Take 400 mg by mouth daily at bedtime. - sucralfate (CARAFATE) 1 gram tablet Take 1 tablet by mouth three times daily with meals. - OLANZapine (ZYPREXA) 7.5 mg tablet Take 1 tablet by mouth daily at bedtime. - venlafaxine ER (EFFEXOR XR) 150 mg 24 hr capsule Take 1 capsule by mouth once daily. Take Effexor XR 150 mg with Effexor XR 37.5 mg daily - ascorbic acid, vitamin C, (VITAMIN C) 500 mg tablet Take 500 mg by mouth daily with lunch. - Vitamin E, dl, acetate, (VITAMIN E) 400 unit capsule Take 400 Units by mouth every other day. Once capsule by mouth every other day with lunch - montelukast (SINGULAIR) 10 mg tablet Take 10 mg by mouth daily at bedtime. - loratadine (CLARITIN) 10 mg tablet Take 10 mg by mouth daily at bedtime. - ferrous gluconate 270 mg (27 mg iron) tab Take 1 tablet by mouth daily with food. - Pregabalin (LYRICA) 200 mg capsule Take 200 mg by mouth three times daily. - pantoprazole DR (PROTONIX) 40 mg tablet Take 40 mg by mouth once daily. - bethanechol (URECHOLINE) 25 mg tablet Take 25 mg by mouth three times daily. - acetaminophen (TYLENOL ARTHRITIS PAIN) 650 mg CR tablet Take 1,300 mg by mouth twice daily. - cholecalciferol (VITAMIN D-3) 2,000 unit tablet Take 2,000 Units by mouth once daily. - alfuzosin SR (UROXATRAL) 10 mg 24 hr tablet Take 10 mg by mouth daily at bedtime. - Vjrlq-2-VHG-EPA-Fish Oil (FISH OIL) 1,000 mg (120 mg-180 mg) cap Take one capsule by mouth twice daily. - bumetanide (BUMEX) 2 mg tablet Take 1 tablet by mouth once daily. - finasteride (PROSCAR) 5 mg tablet Take 1 tablet by mouth once daily. - COMPOUNDED PRESCRIPTION Home PT for upper back and neck pain. Dx:M54.2. - Diaper,Brief, Adult,Disposable (ADULT BRIEFS - LARGE) misc 1 Box four times daily as needed. 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 - atorvastatin (LIPITOR) 40 mg tablet Take 1 tablet by mouth once daily. - potassium chloride (KLOR-CON) 20 mEq packet Take 20 mEq by mouth twice daily. - COMPOUNDED PRESCRIPTION Large manual wheelchair. Dx 345.10; 277.7; 153.9 - allopurinol (ZYLOPRIM) 100 mg tablet Take 1 tablet by mouth once daily. For gout. (Patient taking differently: Take 100 mg by mouth daily at bedtime. For gout. ) - rOPINIRole (REQUIP) 1 mg tablet Take 1 tablet by mouth three times daily. - COMPOUNDED PRESCRIPTION Use daily lower extremity wraps for edema. May use rita wraps in place of compression stockings. - COMPOUNDED PRESCRIPTION KNEE HIGH COMPRESSION STOCKINGS, 20-30 MM, I DX: EDEMA - levothyroxine (SYNTHROID) 50 mcg tablet Take 1 tablet by mouth once daily. Take on empty stomach. For Thyroid. - THERAPEUTIC MULTIVITAMIN TAB Take one (1) tablet daily - without iron No current facility-administered medications for this visit. PAST MEDICAL HISTORY Diagnosis Date - Anemia - Black stools started 03/11/15 - Coronary artery disease - Hypertrophy of prostate - Hypothyroid - Organic brain syndrome - Osteoarthritis - Osteopenia - Other and unspecified hyperlipidemia - Personal history of colon cancer - Seizures (HCC) - Unspecified essential hypertension 11/06/2005 PAST SURGICAL HISTORY Procedure Laterality Date - CIRCUMCISION,OTHR AGE 6 - COLONOSCOP W/ OR W/O BRSH SPEC 09/11/2005 Colonoscopy - COLONOSCOP W/ OR W/O BRS SPEC 12/06/14 Colonoscopy - COLONOSCOP W/ OR W/O BRS SPEC 03/25/16 Colonoscopy outpt [facility] - COLONS W/REM POLYP HT BX 03/26/2017 - EG (more content not included)... [facility] 03-06-2022 History of Present illness Narrative [facility] VIRTUAL VISIT HISTORY OF PRESENT ILLNESS: Anjel Ross is a 71 year old male who is diagnosed with seizures, and presents today for virtual visit. They are an established patient of Dr. Cobian and was last seen on 11/11/2020. Seizures: None that he can remember Last reported GTC around Thanksgiving 08/2020. AED's: LEV 1500mg BID VPA 1000mg TID Pregabalin 200mg TID In other health,stable for what he can tell me and staff around him. Occupation: Retired. Lives in assisted living place in [place], [place] Driving: no Mood: ok Memory: poor CURRENT OUTPATIENT MEDICATIONS: Current Outpatient Medications Medication Sig levETIRAcetam (KEPPRA) 750 mg tablet 2 TABLETS (1,500MG) BY MOUTH 2 TIMES A DAY DX: / NURSE TO REORDER divalproex ER (DEPAKOTE ER) 500 mg 24 hr tablet Take 2 tablets by mouth three times daily. spironolactone (ALDACTONE) 25 mg tablet Take 1 tablet by mouth every other day. spironolactone (ALDACTONE) 50 mg tablet Take 50 mg by mouth every 48 hours. alternating with 25 mg tablets alendronate (FOSAMAX) 70 mg tablet Take 70 mg by mouth one time a week. magnesium oxide (MAG-OX) 400 mg (241.3 mg magnesium) tablet Take 400 mg by mouth daily at bedtime. sucralfate (CARAFATE) 1 gram tablet Take 1 tablet by mouth three times daily with meals. OLANZapine (ZYPREXA) 7.5 mg tablet Take 1 tablet by mouth daily at bedtime. venlafaxine ER (EFFEXOR XR) 150 mg 24 hr capsule Take 1 capsule by mouth once daily. Take Effexor XR 150 mg with Effexor XR 37.5 mg daily ascorbic acid, vitamin C, (VITAMIN C) 500 mg tablet Take 500 mg by mouth daily with lunch. Vitamin E, dl, acetate, (VITAMIN E) 400 unit capsule Take 400 Units by mouth every other day. Once capsule by mouth every other day with lunch montelukast (SINGULAIR) 10 mg tablet Take 10 mg by mouth daily at bedtime. loratadine (CLARITIN) 10 mg tablet Take 10 mg by mouth daily at bedtime. ferrous gluconate 270 mg (27 mg iron) tab Take 1 tablet by mouth daily with food. Pregabalin (LYRICA) 200 mg capsule Take 200 mg by mouth three times daily. pantoprazole DR (PROTONIX) 40 mg tablet Take 40 mg by mouth once daily. bethanechol (URECHOLINE) 25 mg tablet Take 25 mg by mouth three times daily. acetaminophen (TYLENOL ARTHRITIS PAIN) 650 mg CR tablet Take 1,300 mg by mouth twice daily. cholecalciferol (VITAMIN D-3) 2,000 unit tablet Take 2,000 Units by mouth once daily. alfuzosin SR (UROXATRAL) 10 mg 24 hr tablet Take 10 mg by mouth daily at bedtime. Yzpcf-0-VYR-EPA-Fish Oil (FISH OIL) 1,000 mg (120 mg-180 mg) cap Take one capsule by mouth twice daily. bumetanide (BUMEX) 2 mg tablet Take 1 tablet by mouth once daily. finasteride (PROSCAR) 5 mg tablet Take 1 tablet by mouth once daily. COMPOUNDED PRESCRIPTION Home PT for upper back and neck pain. Dx:M54.2. Diaper,Brief, Adult,Disposable (ADULT BRIEFS - LARGE) misc 1 Box four times daily as needed. 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 atorvastatin (LIPITOR) 40 mg tablet Take 1 tablet by mouth once daily. potassium chloride (KLOR-CON) 20 mEq packet Take 20 mEq by mouth twice daily. COMPOUNDED PRESCRIPTION Large manual wheelchair. Dx 345.10; 277.7; 153.9 allopurinol (ZYLOPRIM) 100 mg tablet Take 1 tablet by mouth once daily. For gout. (Patient taking differently: Take 100 mg by mouth daily at bedtime. For gout. ) rOPINIRole (REQUIP) 1 mg tablet Take 1 tablet by mouth three times daily. COMPOUNDED PRESCRIPTION Use daily lower extremity wraps for edema. May use rita wraps in place of compression stockings. COMPOUNDED PRESCRIPTION KNEE HIGH COMPRESSION STOCKINGS, 20-30 MM, I DX: EDEMA levothyroxine (SYNTHROID) 50 mcg tablet Take 1 tablet by mouth once daily. Take on empty stomach. For Thyroid. THERAPEUTIC MULTIVITAMIN TAB Take one (1) tablet daily - without iron No current facility-administered medications for this visit. PAST MEDICAL HISTORY Diagnosis Date Anemia Black stools started 03/11/15 Coronary artery disease Hypertrophy of prostate Hypothyroid Organic brain syndrome Osteoarthritis Osteopenia Other and unspecified hyperlipidemia Personal history of colon cancer Seizures (HCC) Unspecified essential hypertension 11/06/2005 PAST SURGICAL HISTORY Procedure Laterality Date CIRCUMCISION,OTHR AGE 6 COLONOSCOP W/ OR W/O BRS SPEC 09/11/2005 Colonoscopy COLONOSCOP W/ OR W/O BRSH SPEC 12/06/14 Colonoscopy COLONOSCOP W/ OR W/O [facility] SPEC 03/25/16 Colonoscopy outpt [facility] COLONS W/REM POLYP HT BX 03/26/2017 EGD W/O OR W/BRUSH/WASH 11/22/14 EGD EGD W/O OR W/BRUSH/WASH 12/06/14 EGD LAP COLECTMY W/ILEUM/ILEOCOL 01-21-15 LAPAROSCOPIC CHOLEYCYSTECTOMY 01-21-15 WITH COLON PARTIAL HIP REPLACEMENT 90s Hip replacement, partial Rt PAST SURGICAL HISTORY OF ORTHOPEDIC ON KNEES FAMILY HISTORY Problem Relation Age of Onset Heart Mother SJORGENS, ANGIOPLASTY, ASHD Cancer Father LUNG Heart Father DC X 3 Heart Maternal Aunt DC Diabetes Maternal Aunt other (EPILEPSY) Paternal Grandfather ASSESSMENT: Anjel Ross is a 71 year old male with history of seizures. No seizures that patient or stff can report. Remains on current medications. Health is stable and requires assistance with all ADL's. Staff helps him with his medications. Will continue with plan. PLAN: - LABS: cmp,LEV,VPA - Medications: -continue with VPA 1000mg TID -continue with LEV 1500mg BID -continue with Lyrica 200mg TID -continue with all regular daily medications -Follow all seizure precautions and safety measures. - Consults: none - Follow up: 6-12 months I spent 10 minutes during this encounter counseling on seizures and medications. Elizabeth Curran APRN.CNP March 09, 2022 documented in this encounter [facility] 02-26-2022 Miscellaneous Notes The following approved medication requests have been transmitted electronically. Signed Prescriptions Disp Refills levETIRAcetam (KEPPRA) 750 mg tablet 120 tablet 0 Si TABLETS (1,500MG) BY MOUTH 2 TIMES A DAY DX: / NURSE TO REORDER CHERIE: No Authorizing Provider: TABATHA OBREGON APRN.CNP documented in this encounter [facility] 02-06-2022 Miscellaneous Notes The following approved medication requests have been transmitted electronically. Signed Prescriptions Disp Refills divalproex ER (DEPAKOTE ER) 500 mg 24 hr tablet 180 tablet 0 Sig: Take 2 tablets by mouth three times daily. CHERIE: No Authorizing Provider: TABATHA OBREGON documented in this encounter [facility] documented as of this encounter (statuses as of 02/06/2022) [facility] History of Past illness Narrative* Problem Noted Date Resolved Date Obesity due to excess calories 01/28/2016 0 02/04/2017 Family history of ischemic heart disease 016 10/02/2020 Colon cancer 12/31/2014 02/07/2015 Overview: Laparoscopic cholecystectomy, laparoscopic right hemicolectomy. Dr. Anjel Nagy [facility] 01/21/15 Special screening for malignant neoplasms, colon 12/06/2014 12/06/2014 Occult blood in stools 11/22/2014 5 Gout 08/10/2014 08/24/2015 Medicare annual wellness visit, initial 11/09/19 14 11/20/2019 Convulsions 11/06/2005 10/02/2020 documented as of this encounter (statuses as of 03/10/2022) [facility] History of Past illness Narrative* Problem Noted Date Resolved Date Obesity due to excess calories 01/28/2016 0 02/04/2017 Family history of ischemic heart disease 016 10/02/2020 Colon cancer 12/31/2014 02/07/2015 Overview: Laparoscopic cholecystectomy, laparoscopic right hemicolectomy. Dr. Anjel Nagy [facility] 01/21/15 Special screening for malignant neoplasms, colon 12/06/2014 12/06/2014 Occult blood in stools 11/22/2014 5 Gout 08/10/2014 08/24/2015 Medicare annual wellness visit, initial 11/09/19 14 11/20/2019 Convulsions 11/06/2005 10/02/2020 documented as of this encounter (statuses as of 03/13/2022) [facility] History of Past illness Narrative* Problem Noted Date Resolved Date Obesity due to excess calories 01/28/2016 0 02/04/2017 Family history of ischemic heart disease 016 10/02/2020 Colon cancer 12/31/2014 02/07/2015 Overview: Laparoscopic cholecystectomy, laparoscopic right hemicolectomy. Dr. Anjel Nagy [facility] 01/21/15 Special screening for malignant neoplasms, colon 12/06/2014 12/06/2014 Occult blood in stools 11/22/2014 5 Gout 08/10/2014 08/24/2015 Medicare annual wellness visit, initial 11/09/19 14 11/20/2019 Convulsions 11/06/2005 10/02/2020 documented as of this encounter (statuses as of 07/14/2022) [facility] History of Past illness Narrative* Problem Noted Date Resolved Date Obesity due to excess calories 01/28/2016 0 02/04/2017 Family history of ischemic heart disease 016 10/02/2020 Colon cancer 12/31/2014 02/07/2015 Overview: Laparoscopic cholecystectomy, laparoscopic right hemicolectomy. Dr. Anjel Nagy [facility] 01/21/15 Special screening for malignant neoplasms, colon 12/06/2014 12/06/2014 Occult blood in stools 11/22/2014 5 Gout 08/10/2014 08/24/2015 Medicare annual wellness visit, initial 11/09/19 14 11/20/2019 Convulsions 11/06/2005 10/02/2020 documented as of this encounter (statuses as of 07/31/2022) [place] [id number] History of Past illness Narrative* Problem Noted Date Resolved Date Obesity due to excess calories 01/28/2016 0 02/04/2017 Family history of ischemic heart disease 016 10/02/2020 Colon cancer 12/31/2014 02/07/2015 Overview: Laparoscopic cholecystectomy, laparoscopic right hemicolectomy. Dr. 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)- Primary [facility] [place] [facility] Diagnosis Personal history of colon cancer- Primary Personal history of malignant neoplasm of large intestine History of colonic polyps Personal history of colonic polyps documented in this encounter [facility] Summary Purpose Family History No Family History Records FoundNo Family History Records FoundNo Family History Records FoundNo Family History Records Found Advance Directives No Advanced Directives Records FoundDocuments on File Type Date Recorded Patient Director Of Career Services Expl anation Advance Directive(s) 03/18/2020 12:37 PM Advance Directive(s) 02/21/2020 1:12 PM Advance Directive(s) 12/08/2019 4:35 PM Advance Directive(s) 05/05/2016 10:27 AM Advance Directive(s) 12/27/2015 9:39 AM Advance Directive(s) 12/13/2015 10:23 AM Documents on File Type Date Recorded Patient Director Of Career Services Expl anation Advance Directive(s) 05/05/2016 10:27 AM Additional Source Comments (unrecognized sect ion and content) No Status Records FoundNo Status Records FoundNo Status Records FoundNo Status Records Found INFORMATION SOURCE (unrecogn ized section and content) DATE CREATED AUTHOR AUTHOR'S ORGANIZ ATION 08/01/2022 [facility] DATE CREATED AUTHOR AUTHOR'S ORGANIZ ATION 01/16/2023 [facility] DATE CREATED AUTHOR AUTHOR'S KATHY CROSS 09/18/[address] [facility] EPIC Source Comments (unrecognize d section and content) In the event this informatio n is protected by the Federal Confidentiality of Alcohol and Drug Abuse Patient Records regulations: The Federal rules restrict any use of the information to criminally investigate or prosecute any alcohol or drug abuse patient.[facility] the event this information is protected by the Federal Confidentiality of Alcohol and Drug Abuse Patient Records regulations: The Federal rules restrict any use of the information to criminally investigate or prosecute any alcohol or drug abuse patient.[facility] the event this information is protected by the Federal Confidentiality of Alcohol and Drug Abuse Patient Records regulations: The Federal rules restrict any use of the information to criminally investigate or prosecute any alcohol or drug abuse patient.[facility] the event this information is protected by the Federal Confidentiality of Alcohol and Drug Abuse Patient Records regulations: The Federal rules restrict any use of the information to criminally investigate or prosecute any alcohol or drug abuse patient.[facility] the event this information is protected by the Federal Confidentiality of Alcohol and Drug Abuse Patient Records regulations: The Federal rules restrict any use of the information to criminally investigate or prosecute any alcohol or drug abuse patient.[facility] the event this information is protected by the Federal Confidentiality of Alcohol and Drug Abuse Patient Records regulations: The Federal rules restrict any use of the information to criminally investigate or prosecute any alcohol or drug abuse patient.[facility] the event this information is protected by the Federal Confidentiality of Alcohol and Drug Abuse Patient Records regulations: The Federal rules restrict any use of the information to criminally investigate or prosecute any alcohol or drug abuse patient.[facility] Reason for Visit (unrecogniz ed section and content) Reason Comments Follow Up Refill Request Seizures Reason Comments Medication Question Depakote XR Reason Comments Results Reason Comments Follow Up Review colonoscopy r esults Reason Onset Date Comments Refill Request 09/29/2022 Care Teams (unrecognized sec tion and content) [employer] Relationship Specialty Start Date End Date Fred Cantor [address] [place] [address] PCP - General Internal Medicine 02/21/20 [employer] W[employer] Operator Relationship Specialty Start Date End Date Fred Cantor [address] [place] [address] PCP - General Internal Medicine 02/21/20 [employer] W[employer] Operator Relationship Specialty Start Date End Date Fred Cantor [address] [place] [address] PCP - General Internal Medicine 02/21/20 FOR RECORDS PERTAINING TO PATIENTS WHO ARE OR HAVE BEEN ENROLLED IN A CHEMICAL DEPENDENCY/SUBSTANCEABUSE PROGRAM, SOME INFORMATION MAY BE OMITTED. This clinical summary was aggregated from multiple sources. Caution should be exercised in using it in the provision of clinical care. This summary normalizes information from multiple sources, and as a consequence, information in this document may materially change the coding, format and clinical context of patient data. In addition, data may be omitted in some cases. CLINICAL DECISIONS SHOULD BE BASED ON THE PRIMARY CLINICAL RECORDS. [employer] [facility]. provides no warranty or guarantee of the accuracy or completeness of information in this document.
[2023-09-22 06:51] LABS: Absolute Lymphocyte Count 2.51 X10^3/uL (0.83-4.51); Absolute Neutrophil Count 2.3 X10^3/uL (2.0-7.7); Basophil# 0.03 X10^3/uL; Basophil% 0.5 % (0-1); Eosinophils% 1.7 % (0-5); Hematocrit 38.2 % (40-54); Hemoglobin 12.6 g/dL (13.0-16.5); Lymphocyte # 2.51 X10^3/ul (0.83-4.51); Lymphocyte % 43.1 % (19-41); Mean Corpuscular Hgb 30.9 pg (27.0-32.0); Mean Corpuscular Volume 93.6 fL (80-94); Mean Platelet Vol. 8.8 fl (6.2-12.0); Monocyte# 0.86 X10^3/uL; Monocyte% 14.8 % (0-10); NRBC Flagged by Analyzer 0 % (0-5); Neutrophil # 2.26 X10^3/uL (2.7-7.7); Neutrophil % 38.7 % (47-70); Platelet Count 170 K/mm3 (150-450); RBC Distribution Width CV 13.3 % (11.6-14.6); RBC Distribution Width SD 45.8 fl (35.1-43.9); Red Blood Count 4.08 M/mm3 (4.6-6.2); White Blood Count 5.8 K/mm3 (4.4-11.0)
[2023-09-22 07:08] LABS: Anion Gap 2 (5-15); BUN 17 mg/dL (7-18); BUN/Creat Ratio 24.9 RATIO (10-20); Calcium,Total 8.8 mg/dL (8.5-10.1); Chloride 107 mmol/L (98-107); Creatinine, Serum 0.68 mg/dL (0.70-1.30); EST Glomerular Filtration Rate 121 mL/min (>60); Est Glom Filt Rate - Afr Amer 146 mL/min (>60); Glucose 123 mg/dL (74-106); Potassium 3.7 mmol/L (3.5-5.1); Sodium Level 143 mmol/L (136-145)
[2023-09-22 08:28] LABS: BNP,B-Type NATRIURETIC PEPTIDE 7.4 pg/mL (0-100)
== END ==
LOC: OLS.SW 05:00
PROVIDERS: Visit Provider Internal Medicine
DX: G40.909 Epilepsy, unspecified, not intractable, without status epilepticus (principal); I10 Essential (primary) hypertension; R06.02 Shortness of breath
CPT/HCPCS: 36415; 80048; 83880; 85025

== ENCOUNTER → 2023-10-05 | Outpatient (REF) | payer MEDICARE, MEDICAID, SELFPAY ==
--- OUTSIDE RECORDS SUMMARY | 2023-10-05 04:30 | XMS RPT_ITS | CCD ---
Author Name Unknown Address [address] [place] [address] Organization [facility] Care Team Providers Care Database Management Specialist Name Role Phone MEG JOE Unavailable Unavailable MEG JOE Unavailable Unavailable IMCA Unavailable Unavailable Fred Cantor Primary Care Provider Fred Cantor Primary Care Provider ELIZABETH CURRAN Attending Unavailable FRED CANTOR Primary Care Unavailable ALTHEA GAMBLE Attending Unavailable FRED CANTOR Referring Unavailable FRED CANTOR Primary Care Unavailable MATEO JARAMILLO Attending Unavailable MATEO JARAMILLO Referring Unavailable FRED CANTOR Primary Care Unavailable Fred Cantor Primary Care Provider [phone] FRED CANTOR Primary Care Unavailable LORENE ORTIZ Attending Unavailable MARY KATE MALIK Referring Unavailab KERON Christensen Admitting Unavailable MARIELLA HILARIO Unavailable STANTON ANDREWS Attending Unavailable Allergies Allergy Classification Reported Allergen(s) Allergy Type Date of Onset Reaction(s) Facility (10 sources) nickel; Translations: [NICKEL] Drug Allergy 01-16-2013 Rash [facility] Repository (10 sources) OXcarbazepine; Translations: [OXCARBAZEPINE] Drug Allergy 06-13-2005 [facility] Repository (10 sources) salicylic acid; Translations: [SALICYLATES] Drug Allergy 06-13-2005 [facility] Repository Medications Current Medications Medication Drug Class(es) [...] and management of inpatient FRED PITTMAN CANTOR Facility:[facility] Start: 09-29-2022 Refill Perri telles MD Work Phone: Neurology Procedures Date Procedure Procedure Detail Performing Clinician Start: 03-26-2017 Colonoscopy Tabatha ruano CAPITAL PROJECT ENGINEER.CLINICAL DIETITIAN Work Phone: Plan of Treatment Date Care Activity Detail Author Start: 04-14-2023 BP CONTROLLED (<130/80) BP CONTROLLED (<130/80) [facility] inic Start: 03-18-2023 DIABETES SCREEN DIABETES SCREEN [facility] Start: 10-04-2022 ADVANCE DIRECTIVE DISCUSSION ADVANCE DIRECTIVE DISCUSSION [facility] Start: 06-27-2022 COVID-19 VACCINE (4 - Booster for Moderna series) COVID-19 VACCINE (4 - Booster for Moderna series) [facility] Start: 06-04-2022 Influenza vaccination [facility] Start: 04-21-2022 COVID-19 VACCINE (4 - Booster for Moderna series) COVID-19 VACCINE (4 - Booster for Moderna series) [facility] Start: 03-10-2022 End: 05-10-2022 Comprehensive metabolic 2000 panel - Serum or Plasma COMP METABOLIC PANEL Lab Routine 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) Expected: 03/10/2022, Expires: 05/10/2022 [facility] Work Phone: Immunizations Immunization Date Immunization Notes Care Provider Fa alexa 07-26-2015 influenza, high dose seasonal, preservative-free Tabatha Obregon CAPITAL PROJECT ENGINEER.CLINICAL DIETITIAN Work Phone: [facility] 06-04-2015 zoster vaccine, live Tabatha guthrie CAPITAL PROJECT ENGINEER.CLINICAL DIETITIAN Work Phone: [facility] 11-02-2014 pneumococcal conjuga te vaccine, 13 valent Tabatha Obregon CAPITAL PROJECT ENGINEER.CLINICAL DIETITIAN Work Phone: [facility] 08-02-2014 influenza, seasonal, injectable Tabatha Obregon CAPITAL PROJECT ENGINEER.CLINICAL DIETITIAN Work Phone: [facility] 07-14-2013 influenza virus vacc ine, unspecified formulation Tabatha Obregon CAPITAL PROJECT ENGINEER.CLINICAL DIETITIAN Work Phone: [facility] 06-05-2006 tetanus and diphther ia toxoids, adsorbed, preservative free, for adult use (2 Lf of tetanus toxoid and 2 Lf of diphtheria toxoid) Tabatha Obregon CAPITAL PROJECT ENGINEER.CLINICAL DIETITIAN Work Phone: [facility] 07-30-2005 influenza virus vacc ine, unspecified formulation Tabatha Obregon CAPITAL PROJECT ENGINEER.CLINICAL DIETITIAN Work Phone: [facility] Work Phone: 06-13-2005 tetanus and diphther ia toxoids, adsorbed, preservative free, for adult use (2 Lf of tetanus toxoid and 2 Lf of diphtheria toxoid) Tabatha Obregon CAPITAL PROJECT ENGINEER.CLINICAL DIETITIAN Work Phone: [facility] Work Phone: 09-11-1997 pneumococcal polysaccharide vaccine, 23 valent Tabatha Obregon CAPITAL PROJECT ENGINEER.CLINICAL DIETITIAN Work Phone: [facility] Work Phone: Payers Date Payer Category Payer Unknown [id number] 2017 Medicaid UHC MEDICAID [facility] MEDICAID [id number] 2017-Present [phone] [address] [place] [address] Medicaid [id number] 2017 Medicaid UHC MEDICAID MYC ARE [facility] MEDICAID [id number] 2017-Present [phone] [address] [place] [address] Medicaid [id number] 2017 Medicare [id number] 1950 Unknown [id number] Social History Date Type Detail Facility Start: 07-31-2015 Tobacco smoking stat us [facility] Never smoked tobacco [facility] Start: 11-11-2020 End: 07-31-2022 Alcohol intake Current non-drinker of alcohol (finding) [facility] Start: 1950 Sex Assigned At Not on file C [facility] Start: 01-17-2022 End: 07-31-2022 Exposure to SARS-CoV-2 (event) Not sure [facility] Start: 07-31-2015 Tobacco use and exposure Smoke less tobacco non-user [facility] Clinical Notes 01-28-2016 to 01-09-2023 Telephone Encounter - Yury Gerber PA-C - 09/29/2022 3:00 PM ESTTelephone Encounter - Silvialorraine Trent - 09/29/2022 8:51 AM Emmanuel Jaramillo MD - 07/31/2022 9:23 AM EDT Note Date & Type Note Facility 01-09-2023 Note HNO ID: [id number] Author: Anitha Burnette RN Service: Nursing Author Type: Registered Nurse Type: Nursing Progress Note Filed: 01/09/2023 2:00 PM Note Text: Updated patient's sister, Cha, on status and discharge tonight. [facility] 01-08-2023 Note HNO ID: [id number] Author: Adán De MD Service: Neurology General Author Type: Physician Type: Plan of Care Filed: 01/08/2023 2:40 PM Note Text: Staff Addendum: I have seen the patient, performed a neurological examination and reviewed the records personally with the resident/midlevel above and agree with the documentation. Please see their note for details. 72 year old male with chronic gait difficulties who is presenting to [facility] a transfer [facility] d/t concerns of NPH. Patient had [...] post discharge Adán De MD Staff Neurologist [facility] 01-08-2023 Note HNO ID: [id number] Author: Lorene Ortiz MD Service: Hospital Medicine [...] Date: 01/04/2023 Images were obtained outside of [facility] OT-Chest 1 View IMPORT Result Date: 01/04/2023 Images were obtained outside of [facility] Most recent EKG normal sinus rhythm [...] HTN, and KYA He was admitted to [facility] 5 days prior due to weakness and [...] Anjel Ross DATE: 01/08/2023 TIME: 12:14 PM [facility] 09-29-2022 Miscellaneous Notes The following approved medication requests have been transmitted electronically. Requested Prescriptions Signed Prescriptions Disp Refills valproic acid (DEPAKENE) 250 mg/5 mL syrup 1800 mL 5 Sig: Take 20 mL by mouth three times daily. Authorizing Provider: YURY GERBER PA-C Prescription Refill: Requested by: pharmacy Please Fax Caller Contact Number: [facility] Name: [facility] Pharmacy Number: [phone] Generic/ brand: 30 or 90 day supply requested: 90 Last appointment: 03/06/22 Next Appointment: none Patient of Dr. Chung documented in this encounter [facility] 07-31-2022 Note HNO ID: [id number] Author: Mateo Jaramillo MD Service: ? Author Type: Physician Type: Progress Notes Filed: 07/31/2022 9:27 AM Note Text: Subjective: Patient is status post a colonoscopy completed at [facility] on 07/06/2022. Patient was noted to have [...] to have another colonoscopy in 5 years. [facility] 07-31-2022 History of Present illness Narrative Subjective: Patient is status post a colonoscopy completed at [facility] on 07/06/2022. Patient was noted to have [...] in 5 years. documented in this encounter [facility] 07-14-2022 Miscellaneous Notes They will call back to schedule.Georgie Alatorre Pss Please call patient to schedule a virtual or office visit to view colonoscopy results. Thank you. Anjel# [phone] Patient called requesting results from colonoscopy. documented in this encounter [facility] 04-14-2022 Note HNO ID: [id number] Author: Althea Gamble PA-C Service: ? Author Type: Physician Magnetic Tape Typewriter Operator Type: Progress Notes Filed: 04/27/2022 9:34 AM [...] colonoscopy 03/26/[address] Anjel Nagy at [facility]. Patient was noted to have a diminutive [...] W/COLLJ SPEC WHEN PFRMD 03/25/16 Colonoscopy outpt [facility] - COLSC FLX W/REMOVAL LESION BY HOT [...] mg by mouth daily at bedtime. - Tryqc-4-QVI-EPA-Fish Oil (FISH OIL) 1,000 mg (120 mg-180 [...] (KLOR-CON) 20 mEq (more content not included)... [facility] 03-13-2022 Miscellaneous Notes Notified Silvia rx has [...] Medication Concern Person Calling Silvia Rehman from [facility] Name of medication Depakote XR. Concern with medication Nurse advised pt is having difficulty swallowing pill and since XR she can't crush. Nurse is asking if can get non XR or liquid so it's not difficult for pt? Patient of Dr. Chung documented in this encounter [facility] 03-06-2022 Note HNO ID: [id number] Author: Elizabeth Curran APRN.CLINICAL DIETITIAN Service: ? Author Type: Nurse Practitioner Type: Progress Notes Filed: 03/10/2022 9:06 AM Note Text: [facility] 03-06-2022 Note HNO ID: [id number] Author: Elizabeth Curran APRN.CLINICAL DIETITIAN Service: ? Author Type: Nurse Practitioner Type: Progress Notes Filed: 03/10/2022 9:01 AM Note Text: [facility] VIRTUAL VISIT HISTORY OF PRESENT [...] Retired. Lives in assisted living place in [place], [place] Driving: no Mood: ok Memory: poor [...] mg by mouth daily at bedtime. - Vtxrp-7-KVG-EPA-Fish Oil (FISH OIL) 1,000 mg (120 mg-180 [...] OR W/O BRS SPEC 03/25/16 Colonoscopy outpt [facility] - COLONS W/REM POLYP HT BX 03/26/2017 - EG (more content not included)... [facility] 03-06-2022 History of Present illness Narrative [facility] VIRTUAL VISIT HISTORY OF PRESENT [...] Retired. Lives in assisted living place in [place], [place] Driving: no Mood: ok Memory: poor [...] 10 mg by mouth daily at bedtime. Vjlwc-3-RFV-EPA-Fish Oil (FISH OIL) 1,000 mg (120 mg-180 [...] SPEC 12/06/14 Colonoscopy COLONOSCOP W/ OR W/O [facility] SPEC 03/25/16 Colonoscopy outpt [facility] COLONS W/REM POLYP HT BX 03/26/2017 EGD W/O OR W/BRUSH/WASH 11/22/14 EGD EGD W/O OR W/BRUSH/WASH 12/06/14 EGD LAP COLECTMY W/ILEUM/ILEOCOL 01-21-15 LAPAROSCOPIC CHOLEYCYSTECTOMY 01-21-15 WITH COLON PARTIAL HIP REPLACEMENT 90s Hip replacement, partial Rt PAST SURGICAL HISTORY OF ORTHOPEDIC ON KNEES FAMILY HISTORY Problem Relation Age of Onset Heart Mother SJORGENS, ANGIOPLASTY, ASHD Cancer Father LUNG Heart Father [place] X 3 Heart Maternal Aunt [place] Diabetes Maternal Aunt other (EPILEPSY) Paternal Grandfather [...] March 09, 2022 documented in this encounter [facility] 02-26-2022 Miscellaneous Notes The following approved medication requests have been transmitted electronically. Signed Prescriptions Disp Refills levETIRAcetam (KEPPRA) 750 mg tablet 120 tablet 0 Si TABLETS (1,500MG) BY MOUTH 2 TIMES A DAY DX: / NURSE TO REORDER CHERIE: No Authorizing Provider: TABATHA OBREGON APRN.CNP documented in this encounter [facility] 02-06-2022 Miscellaneous Notes The following approved medication requests have been transmitted electronically. Signed Prescriptions Disp Refills divalproex ER (DEPAKOTE ER) 500 mg 24 hr tablet 180 tablet 0 Sig: Take 2 tablets by mouth three times daily. CHERIE: No Authorizing Provider: TABATHA OBREGON documented in this encounter [facility] documented as of this encounter (statuses as of 02/06/2022) [facility]-26-2016 History of Past illness Narrative* Problem Noted Date Resolved Date Obesity due to excess calories 01/28/2016 0 02/04/2017 Family history of ischemic heart disease 016 10/02/2020 Colon cancer 12/31/2014 02/07/2015 Overview: Laparoscopic cholecystectomy, laparoscopic right hemicolectomy. Dr. Anjel Nagy [facility] 01/21/15 Special screening for malignant neoplasms, colon 12/06/2014 12/06/2014 Occult blood in stools 11/22/2014 5 Gout 08/10/2014 08/24/2015 Medicare annual wellness visit, initial 11/09/19 14 11/20/2019 Convulsions 11/06/2005 10/02/2020 documented as of this encounter (statuses as of 03/10/2022) [facility] History of Past illness Narrative* Problem Noted Date Resolved Date Obesity due to excess calories 01/28/2016 0 02/04/2017 Family history of ischemic heart disease 016 10/02/2020 Colon cancer 12/31/2014 02/07/2015 Overview: Laparoscopic cholecystectomy, laparoscopic right hemicolectomy. Dr. Ajnel Nagy [facility] 01/21/15 Special screening for malignant neoplasms, colon 12/06/2014 12/06/2014 Occult blood in stools 11/22/2014 5 Gout 08/10/2014 08/24/2015 Medicare annual wellness visit, initial 11/09/19 14 11/20/2019 Convulsions 11/06/2005 10/02/2020 documented as of this encounter (statuses as of 03/13/2022) [facility] History of Past illness Narrative* Problem Noted Date Resolved Date Obesity due to excess calories 01/28/2016 0 02/04/2017 Family history of ischemic heart disease 016 10/02/2020 Colon cancer 12/31/2014 02/07/2015 Overview: Laparoscopic cholecystectomy, laparoscopic right hemicolectomy. Dr. Anjel Nagy [facility] 01/21/15 Special screening for malignant neoplasms, colon 12/06/2014 12/06/2014 Occult blood in stools 11/22/2014 5 Gout 08/10/2014 08/24/2015 Medicare annual wellness visit, initial 11/09/19 14 11/20/2019 Convulsions 11/06/2005 10/02/2020 documented as of this encounter (statuses as of 07/14/2022) [facility] History of Past illness Narrative* Problem Noted Date Resolved Date Obesity due to excess calories 01/28/2016 0 02/04/2017 Family history of ischemic heart disease 016 10/02/2020 Colon cancer 12/31/2014 02/07/2015 Overview: Laparoscopic cholecystectomy, laparoscopic right hemicolectomy. Dr. Anjel Nagy [facility] 01/21/15 Special screening for malignant neoplasms, colon 12/06/2014 12/06/2014 Occult blood in stools 11/22/2014 5 Gout 08/10/2014 08/24/2015 Medicare annual wellness visit, initial 11/09/19 14 11/20/2019 Convulsions 11/06/2005 10/02/2020 documented as of this encounter (statuses as of 07/31/2022) [place] [id number] History of Past illness Narrative* Problem Noted Date Resolved Date Obesity due to excess calories 01/28/2016 0 02/04/2017 Family history of ischemic heart disease 016 10/02/2020 Colon cancer 12/31/2014 02/07/2015 Overview: Laparoscopic cholecystectomy, laparoscopic right hemicolectomy. Dr. 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)- Primary [facility]* Diagnosis Personal history of colon cancer- Primary Personal history of malignant neoplasm of large intestine History of colonic polyps Personal history of colonic polyps documented in this encounter [facility] Summary Purpose Family History No Family History Records FoundNo Family History Records FoundNo Family History Records FoundNo Family History Records Found Advance Directives No Advanced Directives Records FoundDocuments on File Type Date Recorded Patient Manager Retirement Expl anation Advance Directive(s) 03/18/2020 12:37 PM Advance Directive(s) 02/21/2020 1:12 PM Advance Directive(s) 12/08/2019 4:35 PM Advance Directive(s) 05/05/2016 10:27 AM Advance Directive(s) 12/27/2015 9:39 AM Advance Directive(s) 12/13/2015 10:23 AM Documents on File Type Date Recorded Patient Manager Retirement Expl anation Advance Directive(s) 05/05/2016 10:27 AM Additional Source Comments (unrecognized sect ion and content) No Status Records FoundNo Status Records FoundNo Status Records FoundNo Status Records Found INFORMATION SOURCE (unrecogn ized section and content) DATE CREATED AUTHOR AUTHOR'S ORGANIZ ATION 08/01/2022 [facility] DATE CREATED AUTHOR AUTHOR'S ORGANIZ ATION 01/16/2023 [facility] DATE CREATED AUTHOR AUTHOR'S KAHTY CROSS 09/18/[address] [facility] dical Specialists EPIC Source Comments (unrecognize d section and content) In the event this informatio n is protected by the Federal Confidentiality of Alcohol and Drug Abuse Patient Records regulations: The Federal rules restrict any use of the information to criminally investigate or prosecute any alcohol or drug abuse patient.[facility] the event this information is protected by the Federal Confidentiality of Alcohol and Drug Abuse Patient Records regulations: The Federal rules restrict any use of the information to criminally investigate or prosecute any alcohol or drug abuse patient.[facility] the event this information is protected by the Federal Confidentiality of Alcohol and Drug Abuse Patient Records regulations: The Federal rules restrict any use of the information to criminally investigate or prosecute any alcohol or drug abuse patient.[facility] the event this information is protected by the Federal Confidentiality of Alcohol and Drug Abuse Patient Records regulations: The Federal rules restrict any use of the information to criminally investigate or prosecute any alcohol or drug abuse patient.[facility] the event this information is protected by the Federal Confidentiality of Alcohol and Drug Abuse Patient Records regulations: The Federal rules restrict any use of the information to criminally investigate or prosecute any alcohol or drug abuse patient.[facility] the event this information is protected by the Federal Confidentiality of Alcohol and Drug Abuse Patient Records regulations: The Federal rules restrict any use of the information to criminally investigate or prosecute any alcohol or drug abuse patient.[facility] the event this information is protected by the Federal Confidentiality of Alcohol and Drug Abuse Patient Records regulations: The Federal rules restrict any use of the information to criminally investigate or prosecute any alcohol or drug abuse patient.[facility] Reason for Visit (unrecogniz ed section and content) Reason Comments Follow Up Refill Request Seizures Reason Comments Medication Question Depakote XR Reason Comments Results Reason Comments Follow Up Review colonoscopy r esults Reason Onset Date Comments Refill Request 09/29/2022 Care Teams (unrecognized sec tion and content) Database Management Specialist Relationship Specialty Start Date End Date Fred Cantor [address] [place] [address] PCP - General Internal Medicine 02/21/20 Database Management Specialist Relationship Specialty Start Date End Date Fred Cantor [address] [place] [address] PCP - General Internal Medicine 02/21/20 Database Management Specialist Relationship Specialty Start Date End Date Fred Cantor [address] [place] [address] PCP - General Internal Medicine [...] BE BASED ON THE PRIMARY CLINICAL RECORDS. [employer] [facility]. provides no warranty or guarantee of the accuracy or completeness of information in this document.
[2023-10-05 08:20] LABS: Anion Gap 4 (5-15); BUN 12 mg/dL (7-18); BUN/Creat Ratio 16.3 RATIO (10-20); Chloride 105 mmol/L (98-107); Creatinine, Serum 0.74 mg/dL (0.70-1.30); EST Glomerular Filtration Rate 111 mL/min (>60); Est Glom Filt Rate - Afr Amer 134 mL/min (>60); Glucose 95 mg/dL (74-106); Magnesium 2.5 mg/dL (1.6-2.6); Potassium 3.7 mmol/L (3.5-5.1); Sodium Level 139 mmol/L (136-145)
== END ==
LOC: OLS.SW 05:00
PROVIDERS: Visit Provider Internal Medicine
DX: I10 Essential (primary) hypertension (principal); G40.909 Epilepsy, unspecified, not intractable, without status epilepticus
CPT/HCPCS: 36415; 80048; 83735

== ENCOUNTER → 2023-10-11 | Outpatient (REF) | payer MEDICARE, MEDICAID, SELFPAY ==
[2023-10-11 10:17] LABS: T4 Total, Thyroxin 10.8 ug/dL (4.5-12.1); Thyroid Stim Hormone (TSH) 5.65 uIU/mL (0.358-3.74)
== END | disposition home or self-care (01) ==
LOC: OLS.SW 07:00
PROVIDERS: Referring Provider Internal Medicine; Visit Provider Internal Medicine
DX: R60.9 Edema, unspecified (principal)
CPT/HCPCS: 36415; 84436; 84443

== ENCOUNTER → 2023-10-20 | Outpatient (REF) | payer MEDICARE, MEDICAID, SELFPAY ==
--- OUTSIDE RECORDS SUMMARY | 2023-10-20 04:08 | XMS RPT_ITS | CCD ---
Author Name Unknown Address [address] [place] [address] Organization [facility] Care Team Providers Care Lead Application Architect Name Role Phone MEG JOE Unavailable Unavailable MEG JOE Unavailable Unavailable [facility] Unavailable Unavailable Fred Cantor Primary Care Provider [phone] Fred Cantor Primary Care Provider ELIZABETH CURRAN Attending Unavailable FRED CANTOR Primary Care Unavailable ALTHEA GAMBLE Attending Unavailable FRED CANTOR Referring Unavailable FRED CANTOR Primary Care Unavailable MATEO JARAMILLO Attending Unavailable MATEO JARAMILLO Referring Unavailable FRED CANTOR Primary Care Unavailable Fred Cantor Primary Care Provider [phone] FRED CANTOR Primary Care Unavailable LORENE ORTIZ Attending Unavailable MARY KATE MALIK Referring Unavailab KERON Christensen Admitting Unavailable MARIELLA HILARIO Unavailable STANTON ANDREWS Attending Unavailable Allergies Allergy Classification Reported Allergen(s) Allergy Type Date of Onset Reaction(s) Facility (10 sources) nickel; Translations: [NICKEL] Drug Allergy 01-16-2013 Rash [facility] Repository (10 sources) OXcarbazepine; Translations: [OXCARBAZEPINE] Drug Allergy 06-13-2005 [facility] Repository (10 sources) salicylic acid; Translations: [SALICYLATES] Drug Allergy 06-13-2005 [facility] Repository Medications Current Medications Medication Drug Class(es) [...] and management of inpatient FRED PITTMAN CANTOR Facility:[facility] Start: 09-29-2022 Refill Perri telles MD Work Phone: Neurology Procedures Date Procedure Procedure Detail Performing Clinician Start: 03-26-2017 Colonoscopy Tabatha ruano SUPERVISOR [employer].EMBEDDED SYSTEMS DESIGNER Work Phone: Plan of Treatment Date Care Activity Detail Author Start: 04-14-2023 BP CONTROLLED (<130/80) BP CONTROLLED (<130/80) [facility] Start: 03-18-2023 DIABETES SCREEN DIABETES SCREEN [facility] Start: 10-04-2022 ADVANCE DIRECTIVE DISCUSSION ADVANCE DIRECTIVE DISCUSSION [facility] Start: 06-27-2022 COVID-19 VACCINE (4 - Booster for Moderna series) COVID-19 VACCINE (4 - Booster for Moderna series) [facility] Start: 06-04-2022 Influenza vaccination [facility] Start: 04-21-2022 COVID-19 VACCINE (4 - Booster for Moderna series) COVID-19 VACCINE (4 - Booster for Moderna series) [facility] Start: 03-10-2022 End: 05-10-2022 Comprehensive metabolic 2000 panel - Serum or Plasma COMP METABOLIC PANEL Lab Routine 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) Expected: 03/10/2022, Expires: 05/10/2022 [facility] Work Phone: Immunizations Immunization Date Immunization Notes Care Provider Fa alexa 07-26-2015 influenza, high dose seasonal, preservative-free Tabatha Obregon SUPERVISOR [employer].EMBEDDED SYSTEMS DESIGNER Work Phone: [facility] 06-04-2015 zoster vaccine, live Tabatha guthrie SUPERVISOR [employer].EMBEDDED SYSTEMS DESIGNER Work Phone: [facility] 11-02-2014 pneumococcal conjuga te vaccine, 13 valent Tabatha Obregon SUPERVISOR [employer].EMBEDDED SYSTEMS DESIGNER Work Phone: [facility] 08-02-2014 influenza, seasonal, injectable Tabatha Obregon SUPERVISOR [employer].EMBEDDED SYSTEMS DESIGNER Work Phone: [facility] 07-14-2013 influenza virus vacc ine, unspecified formulation Tabatha Obregon SUPERVISOR [employer] YE[employer].EMBEDDED SYSTEMS DESIGNER Work Phone: [facility] 06-05-2006 tetanus and diphther ia toxoids, adsorbed, preservative free, for adult use (2 Lf of tetanus toxoid and 2 Lf of diphtheria toxoid) Tabatha Obregon SUPERVISOR [employer] YE[employer].EMBEDDED SYSTEMS DESIGNER Work Phone: [facility] 07-30-2005 influenza virus vacc ine, unspecified formulation Tabatha Obregon SUPERVISOR [employer]QU[employer] YE[employer].EMBEDDED SYSTEMS DESIGNER Work Phone: [facility] Work Phone: 06-13-2005 tetanus and diphther ia toxoids, adsorbed, preservative free, for adult use (2 Lf of tetanus toxoid and 2 Lf of diphtheria toxoid) Tabatha Obregon SUPERVISOR [employer] YE[employer].EMBEDDED SYSTEMS DESIGNER Work Phone: [facility] Work Phone: 09-11-1997 pneumococcal polysaccharide vaccine, 23 valent Tabatha Obregon SUPERVISOR [employer] YE[employer].EMBEDDED SYSTEMS DESIGNER Work Phone: [facility] Work Phone: Payers Date Payer Category Payer Unknown [id number] 2017 Medicaid UHC MEDICAID [facility] MEDICAID [id number] 2017-Present [phone] [address] [place] [address] Medicaid [id number] 2017 Medicaid UHC MEDICAID [facility] MEDICAID [id number] 2017-Present [phone] [address] [place] [address] Medicaid [id number] 2017 Medicare [id number] 1950 Unknown [id number] Social History Date Type Detail Facility Start: 07-31-2015 Tobacco smoking stat us [facility] Never smoked tobacco [facility] Start: 11-11-2020 End: 07-31-2022 Alcohol intake Current non-drinker of alcohol (finding) [facility] Start: 1950 Sex Assigned At Not on file [facility] Start: 01-17-2022 End: 07-31-2022 Exposure to SARS-CoV-2 (event) Not sure [facility] Start: 07-31-2015 Tobacco use and exposure Smoke less tobacco non-user [facility] Clinical Notes 01-28-2016 to 01-09-2023 Telephone Encounter - Yury Gerber PA-C - 09/29/2022 3:00 PM ESTTelephone Encounter - Silvialorraine Trent - 09/29/2022 8:51 AM Emmanuel Jaramillo MD - 07/31/2022 9:23 AM EDT Note Date & Type Note Facility 01-09-2023 Note HNO ID: [id number] Author: Anitha Burnette RN Service: Nursing Author Type: Registered Nurse Type: Nursing Progress Note Filed: 01/09/2023 2:00 PM Note Text: Updated patient's sister, Cha, on status and discharge tonight. [facility] 01-08-2023 Note HNO ID: [id number] Author: Adán De MD Service: Neurology General Author Type: Physician Type: Plan of Care Filed: 01/08/2023 2:40 PM Note Text: Staff Addendum: I have seen the patient, performed a neurological examination and reviewed the records personally with the resident/midlevel above and agree with the documentation. Please see their note for details. 72 year old male with chronic gait difficulties who is presenting to [facility] [...] post discharge Adán De MD Staff Neurologist [facility] 01-08-2023 Note HNO ID: [id number] Author: Lorene Ortiz MD Service: Hospital Medicine [...] Date: 01/04/2023 Images were obtained outside of [facility] OT-Chest 1 View IMPORT Result Date: 01/04/2023 Images were obtained outside of [facility] Most recent EKG normal sinus rhythm Blood [...] HTN, and KYA He was admitted to [facility] 5 days prior due to weakness [...] Anjel Ross DATE: 01/08/2023 TIME: 12:14 PM [facility] 09-29-2022 Miscellaneous Notes The following approved medication requests have been transmitted electronically. Requested Prescriptions Signed Prescriptions Disp Refills valproic acid (DEPAKENE) 250 mg/5 mL syrup 1800 mL 5 Sig: Take 20 mL by mouth three times daily. Authorizing Provider: YURY GERBER PA-C Prescription Refill: Requested by: pharmacy Please Fax Caller Contact Number: [facility]acy Name: [facility] Pharmacy Number: [phone] Generic/ brand: 30 or 90 day supply requested: 90 Last appointment: 03/06/22 Next Appointment: none Patient of Dr. Chung documented in this encounter [facility] 07-31-2022 Note HNO ID: [id number] Author: Mateo Jaramillo MD Service: ? Author Type: Physician Type: Progress Notes Filed: 07/31/2022 9:27 AM Note Text: Subjective: Patient is status post a colonoscopy completed at [facility] on 07/06/2022. Patient was noted to [...] to have another colonoscopy in 5 years. [facility] 07-31-2022 History of Present illness Narrative Subjective: Patient is status post a colonoscopy completed at [facility] on 07/06/2022. Patient was noted to [...] in 5 years. documented in this encounter [facility] 07-14-2022 Miscellaneous Notes They will call back to schedule.Georgie Alatorre Pss Please call patient to schedule a virtual or office visit to view colonoscopy results. Thank you. Anjel# [phone] Patient called requesting results from colonoscopy. documented in this encounter [facility] 04-14-2022 Note HNO ID: [id number] Author: Althea Gamble PA-C Service: ? Author Type: Physician Cat Hooker Type: Progress Notes Filed: 04/27/2022 9:34 AM [...] colonoscopy 03/26/[address] Anjel Nagy at [facility]. Patient was noted to have a [...] WHEN PFRMD 03/25/16 Colonoscopy outpt [facility] - COLSC FLX W/REMOVAL LESION BY HOT [...] mg by mouth daily at bedtime. - Zzeqf-9-FMR-EPA-Fish Oil (FISH OIL) 1,000 mg (120 mg-180 [...] (KLOR-CON) 20 mEq (more content not included)... [facility] 03-13-2022 Miscellaneous Notes Notified Silvia rx has [...] Medication Concern Person Calling Silvia Rehman from [facility] Name of medication Depakote XR. Concern with medication Nurse advised pt is having difficulty swallowing pill and since XR she can't crush. Nurse is asking if can get non XR or liquid so it's not difficult for pt? Patient of Dr. Chung documented in this encounter [facility] 03-06-2022 Note HNO ID: [id number] Author: Elizabeth Curran APRN.EMBEDDED SYSTEMS DESIGNER Service: ? Author Type: Nurse Practitioner Type: Progress Notes Filed: 03/10/2022 9:06 AM Note Text: [facility] 03-06-2022 Note HNO ID: [id number] Author: Elizabeth Curran APRN.EMBEDDED SYSTEMS DESIGNER Service: ? Author Type: Nurse Practitioner Type: Progress Notes Filed: 03/10/2022 9:01 AM Note Text: [facility] VIRTUAL VISIT HISTORY OF PRESENT [...] Retired. Lives in assisted living place in [place], [place] Driving: no Mood: ok Memory: poor [...] mg by mouth daily at bedtime. - Wvaoj-2-UUT-EPA-Fish Oil (FISH OIL) 1,000 mg (120 mg-180 [...] BRS SPEC 03/25/16 Colonoscopy outpt [facility] - COLONS W/REM POLYP HT BX 03/26/2017 - EG (more content not included)... [facility] 03-06-2022 History of Present illness Narrative [facility] VIRTUAL VISIT HISTORY OF PRESENT [...] Retired. Lives in assisted living place in [place], [place] Driving: no Mood: ok Memory: poor [...] 10 mg by mouth daily at bedtime. Qiamv-0-QKQ-EPA-Fish Oil (FISH OIL) 1,000 mg (120 mg-180 [...] 12/06/14 Colonoscopy COLONOSCOP W/ OR W/O [facility] SPEC 03/25/16 Colonoscopy outpt [facility] COLONS W/REM POLYP HT BX 03/26/2017 EGD W/O OR W/BRUSH/WASH 11/22/14 EGD EGD W/O OR W/BRUSH/WASH 12/06/14 EGD LAP COLECTMY W/ILEUM/ILEOCOL 01-21-15 LAPAROSCOPIC CHOLEYCYSTECTOMY 01-21-15 WITH COLON PARTIAL HIP REPLACEMENT 90s Hip replacement, partial Rt PAST SURGICAL HISTORY OF ORTHOPEDIC ON KNEES FAMILY HISTORY Problem Relation Age of Onset Heart Mother SJORGENS, ANGIOPLASTY, ASHD Cancer Father LUNG Heart Father PR X 3 Heart Maternal Aunt PR Diabetes Maternal Aunt other (EPILEPSY) Paternal Grandfather [...] March 09, 2022 documented in this encounter [facility] 02-26-2022 Miscellaneous Notes The following approved medication requests have been transmitted electronically. Signed Prescriptions Disp Refills levETIRAcetam (KEPPRA) 750 mg tablet 120 tablet 0 Si TABLETS (1,500MG) BY MOUTH 2 TIMES A DAY DX: / NURSE TO REORDER CHERIE: No Authorizing Provider: TABATHA OBREGON APRN.CNP documented in this encounter [facility] 02-06-2022 Miscellaneous Notes The following approved medication requests have been transmitted electronically. Signed Prescriptions Disp Refills divalproex ER (DEPAKOTE ER) 500 mg 24 hr tablet 180 tablet 0 Sig: Take 2 tablets by mouth three times daily. CHERIE: No Authorizing Provider: TABATHA OBREGON documented in this encounter [facility] documented as of this encounter (statuses as of 02/06/2022) [facility] History of Past illness Narrative* Problem Noted Date Resolved Date Obesity due to excess calories 01/28/2016 0 02/04/2017 Family history of ischemic heart disease 016 10/02/2020 Colon cancer 12/31/2014 02/07/2015 Overview: Laparoscopic cholecystectomy, laparoscopic right hemicolectomy. Dr. Anjel Nagy [facility] 01/21/15 Special screening for malignant neoplasms, colon 12/06/2014 12/06/2014 Occult blood in stools 11/22/2014 5 Gout 08/10/2014 08/24/2015 Medicare annual wellness visit, initial 11/09/19 14 11/20/2019 Convulsions 11/06/2005 10/02/2020 documented as of this encounter (statuses as of 03/10/2022) [facility] History of Past illness Narrative* Problem Noted Date Resolved Date Obesity due to excess calories 01/28/2016 0 02/04/2017 Family history of ischemic heart disease 016 10/02/2020 Colon cancer 12/31/2014 02/07/2015 Overview: Laparoscopic cholecystectomy, laparoscopic right hemicolectomy. Dr. Anjel Nagy [facility] 01/21/15 Special screening for malignant neoplasms, colon 12/06/2014 12/06/2014 Occult blood in stools 11/22/2014 5 Gout 08/10/2014 08/24/2015 Medicare annual wellness visit, initial 11/09/19 14 11/20/2019 Convulsions 11/06/2005 10/02/2020 documented as of this encounter (statuses as of 03/13/2022) [facility] History of Past illness Narrative* Problem Noted Date Resolved Date Obesity due to excess calories 01/28/2016 0 02/04/2017 Family history of ischemic heart disease 016 10/02/2020 Colon cancer 12/31/2014 02/07/2015 Overview: Laparoscopic cholecystectomy, laparoscopic right hemicolectomy. Dr. Anjel Nagy [facility] 01/21/15 Special screening for malignant neoplasms, colon 12/06/2014 12/06/2014 Occult blood in stools 11/22/2014 5 Gout 08/10/2014 08/24/2015 Medicare annual wellness visit, initial 11/09/19 14 11/20/2019 Convulsions 11/06/2005 10/02/2020 documented as of this encounter (statuses as of 07/14/2022) [facility] History of Past illness Narrative* Problem Noted Date Resolved Date Obesity due to excess calories 01/28/2016 0 02/04/2017 Family history of ischemic heart disease 016 10/02/2020 Colon cancer 12/31/2014 02/07/2015 Overview: Laparoscopic cholecystectomy, laparoscopic right hemicolectomy. Dr. Anjel Nagy [facility] 01/21/15 Special screening for malignant neoplasms, colon 12/06/2014 12/06/2014 Occult blood in stools 11/22/2014 5 Gout 08/10/2014 08/24/2015 Medicare annual wellness visit, initial 11/09/19 14 11/20/2019 Convulsions 11/06/2005 10/02/2020 documented as of this encounter (statuses as of 07/31/2022) [place] [address]-2016 History of Past illness Narrative* Problem Noted Date Resolved Date Obesity due to excess calories 01/28/2016 0 02/04/2017 Family history of ischemic heart disease 016 10/02/2020 Colon cancer 12/31/2014 02/07/2015 Overview: Laparoscopic cholecystectomy, laparoscopic right hemicolectomy. Dr. 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)- Primary [facility] Diagnosis Personal history of colon cancer- Primary Personal history of malignant neoplasm of large intestine History of colonic polyps Personal history of colonic polyps documented in this encounter [facility] Summary Purpose Family History No Family History Records FoundNo Family History Records FoundNo Family History Records FoundNo Family History Records Found Advance Directives No Advanced Directives Records FoundDocuments on File Type Date Recorded Patient Cabinet Professional Expl anation Advance Directive(s) 03/18/2020 12:37 PM Advance Directive(s) 02/21/2020 1:12 PM Advance Directive(s) 12/08/2019 4:35 PM Advance Directive(s) 05/05/2016 10:27 AM Advance Directive(s) 12/27/2015 9:39 AM Advance Directive(s) 12/13/2015 10:23 AM Documents on File Type Date Recorded Patient Cabinet Professional Expl anation Advance Directive(s) 05/05/2016 10:27 AM Additional Source Comments (unrecognized sect ion and content) No Status Records FoundNo Status Records FoundNo Status Records FoundNo Status Records Found INFORMATION SOURCE (unrecogn ized section and content) DATE CREATED AUTHOR AUTHOR'S ORGANIZ ATION 08/01/2022 [facility] DATE CREATED AUTHOR AUTHOR'S ORGANIZ ATION 01/16/2023 [facility] DATE CREATED AUTHOR AUTHOR'S KATHY CROSS 09/18/2023 [facility] EPIC Source Comments (unrecognize d section and content) In the event this informatio n is protected by the Federal Confidentiality of Alcohol and Drug Abuse Patient Records regulations: The Federal rules restrict any use of the information to criminally investigate or prosecute any alcohol or drug abuse patient.[facility] the event this information is protected by the Federal Confidentiality of Alcohol and Drug Abuse Patient Records regulations: The Federal rules restrict any use of the information to criminally investigate or prosecute any alcohol or drug abuse patient.[facility] the event this information is protected by the Federal Confidentiality of Alcohol and Drug Abuse Patient Records regulations: The Federal rules restrict any use of the information to criminally investigate or prosecute any alcohol or drug abuse patient.[facility] the event this information is protected by the Federal Confidentiality of Alcohol and Drug Abuse Patient Records regulations: The Federal rules restrict any use of the information to criminally investigate or prosecute any alcohol or drug abuse patient.[facility] the event this information is protected by the Federal Confidentiality of Alcohol and Drug Abuse Patient Records regulations: The Federal rules restrict any use of the information to criminally investigate or prosecute any alcohol or drug abuse patient.[facility] the event this information is protected by the Federal Confidentiality of Alcohol and Drug Abuse Patient Records regulations: The Federal rules restrict any use of the information to criminally investigate or prosecute any alcohol or drug abuse patient.[facility] the event this information is protected by the Federal Confidentiality of Alcohol and Drug Abuse Patient Records regulations: The Federal rules restrict any use of the information to criminally investigate or prosecute any alcohol or drug abuse patient.[facility] Reason for Visit (unrecogniz ed section and content) Reason Comments Follow Up Refill Request Seizures Reason Comments Medication Question Depakote XR Reason Comments Results Reason Comments Follow Up Review colonoscopy r esults Reason Onset Date Comments Refill Request 09/29/2022 Care Teams (unrecognized sec tion and content) Lead Application Architect Relationship Specialty Start Date End Date Fred Cantor [address] [place] [address] PCP - General Internal Medicine 02/21/20 Lead Application Architect Relationship Specialty Start Date End Date Fred Cantor [address] [place] [address] PCP - General Internal Medicine 02/21/20 Lead Application Architect Relationship Specialty Start Date End Date Fred Cantor [address] [place] [address] PCP - General Internal Medicine [...] BE BASED ON THE PRIMARY CLINICAL RECORDS. [employer] [facility]. provides no warranty or guarantee of the accuracy or completeness of information in this document.
[2023-10-20 09:38] LABS: Absolute Lymphocyte Count 2.41 X10^3/uL (0.83-4.51); Absolute Neutrophil Count 3.5 X10^3/uL (2.0-7.7); Basophil# 0.04 X10^3/uL; Basophil% 0.6 % (0-1); Eosinophil# 0.14 X10^3/uL; Hemoglobin 14.2 g/dL (13.0-16.5); Lymphocyte # 2.41 X10^3/ul (0.83-4.51); Lymphocyte % 34.2 % (19-41); Mean Corpuscular Hgb 30.3 pg (27.0-32.0); Mean Corpuscular Volume 91.9 fL (80-94); Mean Platelet Vol. 8.6 fl (6.2-12.0); Monocyte% 12.8 % (0-10); NRBC Flagged by Analyzer 0 % (0-5); Neutrophil # 3.49 X10^3/uL (2.7-7.7); Neutrophil % 49.5 % (47-70); Platelet Count 197 K/mm3 (150-450); RBC Distribution Width CV 13.2 % (11.6-14.6); RBC Distribution Width SD 44.6 fl (35.1-43.9); Red Blood Count 4.68 M/mm3 (4.6-6.2)
[2023-10-20 10:07] LABS: Anion Gap 5 (5-15); BUN 14 mg/dL (7-18); BUN/Creat Ratio 16.5 RATIO (10-20); Calcium,Total 9.4 mg/dL (8.5-10.1); Chloride 101 mmol/L (98-107); Creatinine, Serum 0.85 mg/dL (0.70-1.30); EST Glomerular Filtration Rate 94 mL/min (>60); Est Glom Filt Rate - Afr Amer 114 mL/min (>60); Glucose 142 mg/dL (74-106); Potassium 3.6 mmol/L (3.5-5.1); Sodium Level 139 mmol/L (136-145)
== END ==
LOC: OLS.SW 05:00
PROVIDERS: Visit Provider Internal Medicine
DX: K21.9 Gastro-esophageal reflux disease without esophagitis (principal); G40.909 Epilepsy, unspecified, not intractable, without status epilepticus; F41.9 Anxiety disorder, unspecified; I10 Essential (primary) hypertension; E78.5 Hyperlipidemia, unspecified; E03.9 Hypothyroidism, unspecified
CPT/HCPCS: 36415; 80048; 85025

== ENCOUNTER → 2023-11-04 | Outpatient (REF) | payer MEDICARE, MEDICAID, SELFPAY ==
--- OUTSIDE RECORDS SUMMARY | 2023-11-04 04:54 | XMS RPT_ITS | CCD ---
Author Name Unknown Address [address] [place] [address] Organization [facility] Care Team Providers Care Plant Technical Specialist Name Role Phone MEG JOE Unavailable [...] Care Unavailable Fred Cantor Primary Care Provider [phone] FRED CANTOR Primary Care Unavailable LORENE ORTIZ Attending Unavailable MARY KATE MALIK Referring Unavailab KERON Christensen Admitting Unavailable MARIELLA HILARIO Unavailable STANTON ANDREWS Attending Unavailable Allergies Allergy Classification Reported Allergen(s) Allergy Type Date of Onset Reaction(s) Facility (10 sources) nickel; Translations: [NICKEL] Drug Allergy 01-16-2013 Rash [facility] Repository (10 sources) OXcarbazepine; Translations: [OXCARBAZEPINE] Drug Allergy 06-13-2005 [facility] Repository (10 sources) salicylic acid; Translations: [SALICYLATES] Drug Allergy 06-13-2005 [facility] Repository Medications Current Medications Medication Drug [...] and management of inpatient FRED PITTMAN CANTOR Facility:[facility] Start: 09-29-2022 Refill Perri telles MD Work Phone: Neurology Procedures Date Procedure Procedure Detail Performing Clinician Start: 03-26-2017 Colonoscopy Tabatha ruano DYNAMIC ETCHING PROCESSOR.COST MANAGER Work Phone: Plan of Treatment Date Care Activity Detail Author Start: 04-14-2023 BP CONTROLLED (<130/80) BP CONTROLLED (<130/80) [facility]ic Start: 03-18-2023 DIABETES SCREEN DIABETES SCREEN [facility] Start: 10-04-2022 ADVANCE DIRECTIVE DISCUSSION ADVANCE DIRECTIVE DISCUSSION [facility] Start: 06-27-2022 COVID-19 VACCINE (4 - Booster for Moderna series) COVID-19 VACCINE (4 - Booster for Moderna series) [facility] Start: 06-04-2022 Influenza vaccination [facility] Start: 04-21-2022 COVID-19 VACCINE (4 - Booster for Moderna series) COVID-19 VACCINE (4 - Booster for Moderna series) [facility] Start: 03-10-2022 End: 05-10-2022 Comprehensive metabolic 2000 panel - Serum or Plasma COMP METABOLIC PANEL Lab Routine 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) Expected: 03/10/2022, Expires: 05/10/2022 [facility] Work Phone: Immunizations Immunization Date Immunization Notes Care Provider Fa alexa 07-26-2015 influenza, high dose seasonal, preservative-free Tabatha Obregon DYNAMIC ETCHING PROCESSOR.COST MANAGER Work Phone: [facility] 06-04-2015 zoster vaccine, live Tabatha guthrie DYNAMIC ETCHING PROCESSOR.COST MANAGER Work Phone: [facility] 11-02-2014 pneumococcal conjuga te vaccine, 13 valent Tabatha Obregon DYNAMIC ETCHING PROCESSOR.COST MANAGER Work Phone: [facility] 08-02-2014 influenza, seasonal, injectable Tabatha Obregon DYNAMIC ETCHING PROCESSOR.COST MANAGER Work Phone: [facility] 07-14-2013 influenza virus vacc ine, unspecified formulation Tabatha Obregon DYNAMIC ETCHING PROCESSOR.COST MANAGER Work Phone: [facility] 06-05-2006 tetanus and diphther ia toxoids, adsorbed, preservative free, for adult use (2 Lf of tetanus toxoid and 2 Lf of diphtheria toxoid) Tabatha Obregon DYNAMIC ETCHING PROCESSOR.COST MANAGER Work Phone: [facility] 07-30-2005 influenza virus vacc ine, unspecified formulation Tabatha Obregon DYNAMIC ETCHING PROCESSOR.COST MANAGER Work Phone: [facility] Work Phone: 06-13-2005 tetanus and diphther ia toxoids, adsorbed, preservative free, for adult use (2 Lf of tetanus toxoid and 2 Lf of diphtheria toxoid) Tabatha Obregon DYNAMIC ETCHING PROCESSOR.COST MANAGER Work Phone: [facility] Work Phone: 09-11-1997 pneumococcal polysaccharide vaccine, 23 valent Tabatha Obregon DYNAMIC ETCHING PROCESSOR.COST MANAGER Work Phone: [facility] Work Phone: Payers Date Payer Category Payer Unknown [id number] 2017 Medicaid UHC MEDICAID [facility] MEDICAID [id number] 2017-Present [phone] [address] [place] [address] Medicaid [id number] 2017 Medicaid UHC MEDICAID [facility] MEDICAID [id number] 2017-Present [phone] [address] [place] [address] Medicaid [id number] 2017 Medicare [id number] 1950 Unknown [id number] Social History Date Type Detail Facility Start: 07-31-2015 Tobacco smoking stat us [facility] Never smoked tobacco [facility] Start: 11-11-2020 End: 07-31-2022 Alcohol intake Current non-drinker of alcohol (finding) [facility] Start: 1950 Sex Assigned At Not on file [facility] Start: 01-17-2022 End: 07-31-2022 Exposure to SARS-CoV-2 (event) Not sure [facility] Start: 07-31-2015 Tobacco use and exposure Smoke less tobacco non-user [facility] Clinical Notes 01-28-2016 to 01-09-2023 Telephone Encounter - Yury Gerber PA-C - 09/29/2022 3:00 PM ESTTelephone Encounter - Silvialorraine Trent - 09/29/2022 8:51 AM Emmanuel Jaramillo MD - 07/31/2022 9:23 AM EDT Note Date & Type Note Facility 01-09-2023 Note HNO ID: [id number] Author: Anitha Burnette RN Service: Nursing Author Type: Registered Nurse Type: Nursing Progress Note Filed: 01/09/2023 2:00 PM Note Text: Updated patient's sister, Cha, on status and discharge tonight. [facility] 01-08-2023 Note HNO ID: [id number] Author: Adán De MD Service: Neurology General Author Type: Physician Type: Plan of Care Filed: 01/08/2023 2:40 PM Note Text: Staff Addendum: I have seen the patient, performed a neurological examination and reviewed the records personally with the resident/midlevel above and agree with the documentation. Please see their note for details. 72 year old male with chronic gait difficulties who is presenting to [facility] as a transfer from [facility] d/t concerns of NPH. Patient had a [...] post discharge Adán De MD Staff Neurologist [facility] 01-08-2023 Note HNO ID: [id number] Author: Lorene Ortiz MD Service: Hospital Medicine [...] Date: 01/04/2023 Images were obtained outside of [facility] OT-Chest 1 View IMPORT Result Date: 01/04/2023 Images were obtained outside of [facility] Most recent EKG normal sinus rhythm [...] HTN, and KYA He was admitted to [facility] 5 days prior due to weakness and [...] minor grammatical errors may exist. SIGNATURE: Lorene Otriz MD PATIENT NAME: Anjel Ross DATE: 01/08/2023 TIME: 12:14 PM [facility] 09-29-2022 Miscellaneous Notes The following approved medication requests have been transmitted electronically. Requested Prescriptions Signed Prescriptions Disp Refills valproic acid (DEPAKENE) 250 mg/5 mL syrup 1800 mL 5 Sig: Take 20 mL by mouth three times daily. Authorizing Provider: YURY GERBER PA-C Prescription Refill: Requested by: pharmacy Please Fax Caller Contact Number: Pharmacy Name: [facility] Pharmacy Number: [phone] Generic/ brand: 30 or 90 day supply requested: 90 Last appointment: 03/06/22 Next Appointment: none Patient of Dr. Chung documented in this encounter [facility] 07-31-2022 Note HNO ID: [id number] Author: Mateo Jaramillo MD Service: ? Author Type: Physician Type: Progress Notes Filed: 07/31/2022 9:27 AM Note Text: Subjective: Patient is status post a colonoscopy completed at [facility] on 07/06/2022. Patient was noted to have [...] to have another colonoscopy in 5 years. [facility] 07-31-2022 History of Present illness Narrative Subjective: Patient is status post a colonoscopy completed at [facility] on 07/06/2022. Patient was noted to have [...] in 5 years. documented in this encounter [facility] 07-14-2022 Miscellaneous Notes They will call back to schedule.Georgie Alatorre Pss Please call patient to schedule a virtual or office visit to view colonoscopy results. Thank you. Anjel# [phone] Patient called requesting results from colonoscopy. documented in this encounter [facility] 04-14-2022 Note HNO ID: [id number] Author: Althea Gamble PA-C Service: ? Author Type: Physician C Java Developer Type: Progress Notes Filed: 04/27/2022 9:34 AM [...] colonoscopy 03/26/[address] Anjel Nagy at [facility]. Patient was noted to have a diminutive [...] W/COLLJ SPEC WHEN PFRMD 03/25/16 Colonoscopy outpt [facility] - COLSC FLX W/REMOVAL LESION BY [...] mg by mouth daily at bedtime. - Qkyja-0-UWL-EPA-Fish Oil (FISH OIL) 1,000 mg (120 mg-180 [...] (KLOR-CON) 20 mEq (more content not included)... [facility] 03-13-2022 Miscellaneous Notes Notified Silvia rx has [...] Medication Concern Person Calling Silvia Rehman from [facility] Name of medication Depakote XR. Concern with medication Nurse advised pt is having difficulty swallowing pill and since XR she can't crush. Nurse is asking if can get non XR or liquid so it's not difficult for pt? Patient of Dr. Chung documented in this encounter [facility] 03-06-2022 Note HNO ID: [id number] Author: Elizabeth Curran APRN.COST MANAGER Service: ? Author Type: Nurse Practitioner Type: Progress Notes Filed: 03/10/2022 9:06 AM Note Text: [facility] 03-06-2022 Note HNO ID: [id number] Author: Elizabeth Curran APRN.COST MANAGER Service: ? Author Type: Nurse Practitioner Type: Progress Notes Filed: 03/10/2022 9:01 AM Note Text: [facility] VIRTUAL VISIT HISTORY OF [...] Retired. Lives in assisted living place in [place], [place] Driving: no Mood: ok Memory: poor [...] mg by mouth daily at bedtime. - Kgpit-9-QJZ-EPA-Fish Oil (FISH OIL) 1,000 mg (120 mg-180 [...] OR W/O BRS SPEC 03/25/16 Colonoscopy outpt [facility] - COLONS W/REM POLYP HT BX 03/26/2017 - EG (more content not included)... [facility] 03-06-2022 History of Present illness Narrative [facility] VIRTUAL VISIT HISTORY OF [...] Retired. Lives in assisted living place in [place], [place] Driving: no Mood: ok Memory: poor [...] 10 mg by mouth daily at bedtime. Gdfxi-1-FQG-EPA-Fish Oil (FISH OIL) 1,000 mg (120 mg-180 [...] SPEC 12/06/14 Colonoscopy COLONOSCOP W/ OR W/O [facility] SPEC 03/25/16 Colonoscopy outpt [facility] COLONS W/REM POLYP HT BX 03/26/2017 EGD W/O OR W/BRUSH/WASH 11/22/14 EGD EGD W/O OR W/BRUSH/WASH 12/06/14 EGD LAP COLECTMY W/ILEUM/ILEOCOL 01-21-15 LAPAROSCOPIC CHOLEYCYSTECTOMY 01-21-15 WITH COLON PARTIAL HIP REPLACEMENT 90s Hip replacement, partial Rt PAST SURGICAL HISTORY OF ORTHOPEDIC ON KNEES FAMILY HISTORY Problem Relation Age of Onset Heart Mother SJORGENS, ANGIOPLASTY, ASHD Cancer Father LUNG Heart Father [place] X 3 Heart Maternal Aunt [place] Diabetes Maternal Aunt other (EPILEPSY) Paternal Grandfather [...] March 09, 2022 documented in this encounter [facility] 02-26-2022 Miscellaneous Notes The following approved medication requests have been transmitted electronically. Signed Prescriptions Disp Refills levETIRAcetam (KEPPRA) 750 mg tablet 120 tablet 0 Si TABLETS (1,500MG) BY MOUTH 2 TIMES A DAY DX: / NURSE TO REORDER CHERIE: No Authorizing Provider: TABATHA OBREGON APRN.CNP documented in this encounter [facility] 02-06-2022 Miscellaneous Notes The following approved medication requests have been transmitted electronically. Signed Prescriptions Disp Refills divalproex ER (DEPAKOTE ER) 500 mg 24 hr tablet 180 tablet 0 Sig: Take 2 tablets by mouth three times daily. CHERIE: No Authorizing Provider: TABATHA OBREGON documented in this encounter [facility] documented as of this encounter (statuses as of 02/06/2022) [facility] History of Past illness Narrative* Problem Noted Date Resolved Date Obesity due to excess calories 01/28/2016 0 02/04/2017 Family history of ischemic heart disease 016 10/02/2020 Colon cancer 12/31/2014 02/07/2015 Overview: Laparoscopic cholecystectomy, laparoscopic right hemicolectomy. Dr. Anjel Nagy [facility] 01/21/15 Special screening for malignant neoplasms, colon 12/06/2014 12/06/2014 Occult blood in stools 11/22/2014 5 Gout 08/10/2014 08/24/2015 Medicare annual wellness visit, initial 11/09/19 14 11/20/2019 Convulsions 11/06/2005 10/02/2020 documented as of this encounter (statuses as of 03/10/2022) [facility] History of Past illness Narrative* Problem Noted Date Resolved Date Obesity due to excess calories 01/28/2016 0 02/04/2017 Family history of ischemic heart disease 016 10/02/2020 Colon cancer 12/31/2014 02/07/2015 Overview: Laparoscopic cholecystectomy, laparoscopic right hemicolectomy. Dr. Anjel Nagy [facility] 01/21/15 Special screening for malignant neoplasms, colon 12/06/2014 12/06/2014 Occult blood in stools 11/22/2014 5 Gout 08/10/2014 08/24/2015 Medicare annual wellness visit, initial 11/09/19 14 11/20/2019 Convulsions 11/06/2005 10/02/2020 documented as of this encounter (statuses as of 03/13/2022) [facility] History of Past illness Narrative* Problem Noted Date Resolved Date Obesity due to excess calories 01/28/2016 0 02/04/2017 Family history of ischemic heart disease 016 10/02/2020 Colon cancer 12/31/2014 02/07/2015 Overview: Laparoscopic cholecystectomy, laparoscopic right hemicolectomy. Dr. Anjel Nagy [facility] 01/21/15 Special screening for malignant neoplasms, colon 12/06/2014 12/06/2014 Occult blood in stools 11/22/2014 5 Gout 08/10/2014 08/24/2015 Medicare annual wellness visit, initial 11/09/19 14 11/20/2019 Convulsions 11/06/2005 10/02/2020 documented as of this encounter (statuses as of 07/14/2022) [facility] History of Past illness Narrative* Problem Noted Date Resolved Date Obesity due to excess calories 01/28/2016 0 02/04/2017 Family history of ischemic heart disease 016 10/02/2020 Colon cancer 12/31/2014 02/07/2015 Overview: Laparoscopic cholecystectomy, laparoscopic right hemicolectomy. Dr. Anjel Nagy [facility] 01/21/15 Special screening for malignant neoplasms, colon 12/06/2014 12/06/2014 Occult blood in stools 11/22/2014 5 Gout 08/10/2014 08/24/2015 Medicare annual wellness visit, initial 11/09/19 14 11/20/2019 Convulsions 11/06/2005 10/02/2020 documented as of this encounter (statuses as of 07/31/2022) [place] [id number] History of Past illness Narrative* Problem Noted Date Resolved Date Obesity due to excess calories 01/28/2016 0 02/04/2017 Family history of ischemic heart disease 016 10/02/2020 Colon cancer 12/31/2014 02/07/2015 Overview: Laparoscopic cholecystectomy, laparoscopic right hemicolectomy. Dr. 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)- Primary [facility] Diagnosis Personal history of colon cancer- Primary Personal history of malignant neoplasm of large intestine History of colonic polyps Personal history of colonic polyps documented in this encounter [facility] Summary Purpose Family History No Family History Records FoundNo Family History Records FoundNo Family History Records FoundNo Family History Records Found Advance Directives No Advanced Directives Records FoundDocuments on File Type Date Recorded Patient Pesticide Use Medical Coordinator Expl anation Advance Directive(s) 03/18/2020 12:37 PM Advance Directive(s) 02/21/2020 1:12 PM Advance Directive(s) 12/08/2019 4:35 PM Advance Directive(s) 05/05/2016 10:27 AM Advance Directive(s) 12/27/2015 9:39 AM Advance Directive(s) 12/13/2015 10:23 AM Documents on File Type Date Recorded Patient Pesticide Use Medical Coordinator Expl anation Advance Directive(s) 05/05/2016 10:27 AM Additional Source Comments (unrecognized sect ion and content) No Status Records FoundNo Status Records FoundNo Status Records FoundNo Status Records Found INFORMATION SOURCE (unrecogn ized section and content) DATE CREATED AUTHOR AUTHOR'S ORGANIZ ATION 08/01/2022 [facility] DATE CREATED AUTHOR AUTHOR'S ORGANIZ ATION 01/16/2023 [facility] DATE CREATED AUTHOR AUTHOR'S KATHY CROSS 09/18/2023 [facility] EPIC Source Comments (unrecognize d section and content) In the event this informatio n is protected by the Federal Confidentiality of Alcohol and Drug Abuse Patient Records regulations: The Federal rules restrict any use of the information to criminally investigate or prosecute any alcohol or drug abuse patient.[facility] the event this information is protected by the Federal Confidentiality of Alcohol and Drug Abuse Patient Records regulations: The Federal rules restrict any use of the information to criminally investigate or prosecute any alcohol or drug abuse patient.[facility] the event this information is protected by the Federal Confidentiality of Alcohol and Drug Abuse Patient Records regulations: The Federal rules restrict any use of the information to criminally investigate or prosecute any alcohol or drug abuse patient.[facility] the event this information is protected by the Federal Confidentiality of Alcohol and Drug Abuse Patient Records regulations: The Federal rules restrict any use of the information to criminally investigate or prosecute any alcohol or drug abuse patient.[facility] the event this information is protected by the Federal Confidentiality of Alcohol and Drug Abuse Patient Records regulations: The Federal rules restrict any use of the information to criminally investigate or prosecute any alcohol or drug abuse patient.[facility] the event this information is protected by the Federal Confidentiality of Alcohol and Drug Abuse Patient Records regulations: The Federal rules restrict any use of the information to criminally investigate or prosecute any alcohol or drug abuse patient.[facility] the event this information is protected by the Federal Confidentiality of Alcohol and Drug Abuse Patient Records regulations: The Federal rules restrict any use of the information to criminally investigate or prosecute any alcohol or drug abuse patient.[facility] Reason for Visit (unrecogniz ed section and content) Reason Comments Follow Up Refill Request Seizures Reason Comments Medication Question Depakote XR Reason Comments Results Reason Comments Follow Up Review colonoscopy r esults Reason Onset Date Comments Refill Request 09/29/2022 Care Teams (unrecognized sec tion and content) Plant Technical Specialist Relationship Specialty Start Date End Date Fred Cantor [address] [place] [address] PCP - General Internal Medicine 02/21/20 Plant Technical Specialist Relationship Specialty Start Date End Date Fred Cantor [address] [place] [address] PCP - General Internal Medicine 02/21/20 Plant Technical Specialist Relationship Specialty Start Date End Date Fred Cantor [address] [place] [address] PCP - General Internal Medicine [...] BE BASED ON THE PRIMARY CLINICAL RECORDS. [employer] [facility]. provides no warranty or guarantee of the accuracy or completeness of information in this document.
[2023-11-04 09:56] LABS: AST(SGOT) 22 U/L (15-37); Alanine Aminotransfer ALT/SGPT 28 U/L (16-61); Albumin, Serum 2.9 g/dL (3.2-5.0); Alkaline Phosphatase 66 U/L (45-117); Bilirubin, Direct 0.13 mg/dL (0.00-0.30); Protein, Total 6.9 g/dL (6.4-8.2)
== END ==
LOC: OLS.SW 05:00
PROVIDERS: Visit Provider Internal Medicine
DX: E78.5 Hyperlipidemia, unspecified (principal); E03.9 Hypothyroidism, unspecified; M10.9 Gout, unspecified; M40.00 Postural kyphosis, site unspecified
CPT/HCPCS: 36415; 80076

== ENCOUNTER → 2023-12-15 | Outpatient (REF) | payer MEDICARE, MEDICAID, SELFPAY ==
[2023-12-15 09:08] LABS: Thyroid Stim Hormone (TSH) 8.74 uIU/mL (0.358-3.74)
== END ==
LOC: OLS.SW 04:50
PROVIDERS: Referring Provider Internal Medicine; Visit Provider Internal Medicine
DX: I10 Essential (primary) hypertension (principal); E03.9 Hypothyroidism, unspecified
CPT/HCPCS: 36415; 84443

== ENCOUNTER → 2024-01-03 | Outpatient (REF) | payer MEDICARE, MEDICAID, SELFPAY ==
[2024-01-03 08:45] LABS: Hematocrit 35.8 % (40-54); Hemoglobin 12.1 g/dL (13.0-16.5); Mean Corp Hgb Conc 33.8 g/dL (32-36); Mean Corpuscular Hgb 31.1 pg (27.0-32.0); Mean Platelet Vol. 9.3 fl (6.2-12.0); Platelet Count 140 K/mm3 (150-450); RBC Distribution Width CV 13.2 % (11.6-14.6); Red Blood Count 3.89 M/mm3 (4.6-6.2); White Blood Count 5.4 K/mm3 (4.4-11.0)
[2024-01-03 09:15] LABS: ALB/GLOB Ratio 0.8 RATIO (0.9-2.4); AST(SGOT) 22 U/L (15-37); Alanine Aminotransfer ALT/SGPT 18 U/L (16-61); Albumin, Serum 2.5 g/dL (3.2-5.0); Alkaline Phosphatase 52 U/L (45-117); Anion Gap 5 (5-15); BUN 13 mg/dL (7-18); BUN/Creat Ratio 20.9 RATIO (10-20); Calcium,Total 8.7 mg/dL (8.5-10.1); Chloride 103 mmol/L (98-107); Creatinine, Serum 0.62 mg/dL (0.70-1.30); EST Glomerular Filtration Rate 134 mL/min (>60); Est Glom Filt Rate - Afr Amer 162 mL/min (>60); Globulin 3.3 g/dL (2.2-4.2); Glucose 131 mg/dL (74-106); Magnesium 2.2 mg/dL (1.6-2.6); Potassium 3.2 mmol/L (3.5-5.1); Protein, Total 5.8 g/dL (6.4-8.2); Sodium Level 139 mmol/L (136-145)
== END ==
LOC: OLS.SW 04:00
PROVIDERS: Referring Provider Internal Medicine; Visit Provider Internal Medicine
DX: I10 Essential (primary) hypertension (principal)
CPT/HCPCS: 36415; 80053; 83735; 85027

== ENCOUNTER → 2024-01-10 | Outpatient (REF) | payer MEDICARE, MEDICAID, SELFPAY ==
[2024-01-10 09:06] LABS: Hematocrit 37.7 % (40-54); Hemoglobin 12.4 g/dL (13.0-16.5); Mean Corp Hgb Conc 32.9 g/dL (32-36); Mean Corpuscular Hgb 30.3 pg (27.0-32.0); Mean Corpuscular Volume 92.2 fL (80-94); Mean Platelet Vol. 8.9 fl (6.2-12.0); Platelet Count 175 K/mm3 (150-450); RBC Distribution Width CV 13.1 % (11.6-14.6); RBC Distribution Width SD 44.1 fl (35.1-43.9); Red Blood Count 4.09 M/mm3 (4.6-6.2); White Blood Count 5.9 K/mm3 (4.4-11.0)
[2024-01-10 09:22] LABS: ALB/GLOB Ratio 0.8 RATIO (0.9-2.4); AST(SGOT) 26 U/L (15-37); Alanine Aminotransfer ALT/SGPT 20 U/L (16-61); Albumin, Serum 2.6 g/dL (3.2-5.0); Alkaline Phosphatase 55 U/L (45-117); Anion Gap 6 (5-15); BUN 13 mg/dL (7-18); BUN/Creat Ratio 20.2 RATIO (10-20); Calcium,Total 8.6 mg/dL (8.5-10.1); Chloride 101 mmol/L (98-107); Creatinine, Serum 0.64 mg/dL (0.70-1.30); EST Glomerular Filtration Rate 129 mL/min (>60); Est Glom Filt Rate - Afr Amer 156 mL/min (>60); Globulin 3.4 g/dL (2.2-4.2); Glucose 110 mg/dL (74-106); Magnesium 2.4 mg/dL (1.6-2.6); Potassium 3.1 mmol/L (3.5-5.1); Sodium Level 139 mmol/L (136-145)
== END ==
LOC: OLS.SW 05:00
PROVIDERS: Visit Provider Internal Medicine
DX: I10 Essential (primary) hypertension (principal)
CPT/HCPCS: 36415; 80053; 83735; 85027

== ENCOUNTER → 2024-01-24 | Outpatient (REF) | payer MEDICARE, MEDICAID, SELFPAY ==
[2024-01-24 10:11] LABS: Anion Gap 8 (5-15); BUN 15 mg/dL (7-18); BUN/Creat Ratio 21.4 RATIO (10-20); Calcium,Total 8.8 mg/dL (8.5-10.1); Chloride 102 mmol/L (98-107); EST Glomerular Filtration Rate 117 mL/min (>60); Est Glom Filt Rate - Afr Amer 141 mL/min (>60); Glucose 124 mg/dL (74-106); Potassium 3.3 mmol/L (3.5-5.1); Sodium Level 142 mmol/L (136-145)
== END ==
LOC: OLS.SW 05:00
PROVIDERS: Visit Provider Internal Medicine
DX: N40.0 Benign prostatic hyperplasia without lower urinary tract symptoms (principal); I10 Essential (primary) hypertension
CPT/HCPCS: 36415; 80048

== ENCOUNTER → 2024-02-18 | Outpatient (REF) | payer MEDICARE, MEDICAID, SELFPAY ==
[2024-02-18 09:13] LABS: Thyroid Stim Hormone (TSH) 5.27 uIU/mL (0.358-3.74)
== END ==
LOC: OLS.SW 05:00
PROVIDERS: Visit Provider Internal Medicine
DX: E03.9 Hypothyroidism, unspecified (principal)
CPT/HCPCS: 36415; 84443

== ENCOUNTER → 2024-02-24 05:55 | Outpatient (REF) | payer MEDICARE, MEDICAID, SELFPAY ==
[2024-02-24 08:40] LABS: Anion Gap 7 (5-15); BUN 17 mg/dL (7-18); BUN/Creat Ratio 20.9 RATIO (10-20); Calcium,Total 9.2 mg/dL (8.5-10.1); Chloride 99 mmol/L (98-107); Creatinine, Serum 0.81 mg/dL (0.70-1.30); EST Glomerular Filtration Rate 98 mL/min (>60); Est Glom Filt Rate - Afr Amer 119 mL/min (>60); Glucose 157 mg/dL (74-106); Magnesium 2.4 mg/dL (1.6-2.6); Potassium 3.5 mmol/L (3.5-5.1); Sodium Level 137 mmol/L (136-145)
== END ==
LOC: OLS.SW 05:55
PROVIDERS: Visit Provider Internal Medicine
DX: R60.9 Edema, unspecified (principal)
CPT/HCPCS: 36415; 80048; 83735

== ENCOUNTER → 2024-03-31 05:00 | Outpatient (REF) | payer MEDICARE, MEDICAID, SELFPAY ==
[2024-03-31 07:50] LABS: Hematocrit 42.5 % (40-54); Hemoglobin 14.2 g/dL (13.0-16.5); Mean Corp Hgb Conc 33.4 g/dL (32-36); Mean Corpuscular Hgb 30.5 pg (27.0-32.0); Mean Corpuscular Volume 91.2 fL (80-94); Mean Platelet Vol. 9.7 fl (6.2-12.0); Platelet Count 157 K/mm3 (150-450); RBC Distribution Width CV 12.8 % (11.6-14.6); RBC Distribution Width SD 42.2 fl (35.1-43.9); Red Blood Count 4.66 M/mm3 (4.6-6.2); White Blood Count 9.3 K/mm3 (4.4-11.0)
[2024-03-31 08:10] LABS: ALB/GLOB Ratio 0.8 RATIO (0.9-2.4); AST(SGOT) 14 U/L (15-37); Alanine Aminotransfer ALT/SGPT 23 U/L (16-61); Albumin, Serum 2.9 g/dL (3.2-5.0); Alkaline Phosphatase 76 U/L (45-117); Anion Gap 5 (5-15); BUN 23 mg/dL (7-18); BUN/Creat Ratio 20.2 RATIO (10-20); Calcium,Total 9.5 mg/dL (8.5-10.1); Chloride 103 mmol/L (98-107); Creatinine, Serum 1.14 mg/dL (0.70-1.30); EST Glomerular Filtration Rate 67 mL/min (>60); Est Glom Filt Rate - Afr Amer 81 mL/min (>60); Globulin 3.5 g/dL (2.2-4.2); Glucose 183 mg/dL (74-106); Potassium 3.2 mmol/L (3.5-5.1); Protein, Total 6.4 g/dL (6.4-8.2); Sodium Level 144 mmol/L (136-145)
[2024-03-31 09:57] LABS: Hemoglobin A1c 10.8 % (3.8-5.6)
== END ==
LOC: OLS.SW 05:00
PROVIDERS: Referring Provider Internal Medicine; Visit Provider Internal Medicine
DX: E11.9 Type 2 diabetes mellitus without complications (principal)
CPT/HCPCS: 36415; 80053; 83036; 85027

== ENCOUNTER → 2024-04-04 05:00 | Outpatient (REF) | payer MEDICARE, MEDICAID, SELFPAY ==
[2024-04-04 08:41] LABS: Absolute Lymphocyte Count 3.57 X10^3/uL (0.83-4.51); Absolute Neutrophil Count 4.6 X10^3/uL (2.0-7.7); Basophil# 0.07 X10^3/uL; Basophil% 0.7 % (0-1); Eosinophil# 0.17 X10^3/uL; Eosinophils% 1.8 % (0-5); Hemoglobin 14.7 g/dL (13.0-16.5); Lymphocyte # 3.57 X10^3/ul (0.83-4.51); Lymphocyte % 37.1 % (19-41); Mean Corp Hgb Conc 33.4 g/dL (32-36); Mean Corpuscular Hgb 30.4 pg (27.0-32.0); Mean Corpuscular Volume 91.1 fL (80-94); Mean Platelet Vol. 10.5 fl (6.2-12.0); Monocyte# 1.15 X10^3/uL; Monocyte% 11.9 % (0-10); NRBC Flagged by Analyzer 0 % (0-5); Neutrophil # 4.57 X10^3/uL (2.7-7.7); Neutrophil % 47.5 % (47-70); POSITIVE COUNT YES; RBC Distribution Width CV 12.9 % (11.6-14.6); RBC Distribution Width SD 42.8 fl (35.1-43.9); Red Blood Count 4.83 M/mm3 (4.6-6.2); White Blood Count 9.6 K/mm3 (4.4-11.0)
[2024-04-04 08:45] LABS: Anion Gap 7 (5-15); BUN 20 mg/dL (7-18); BUN/Creat Ratio 18.3 RATIO (10-20); Calcium,Total 9.3 mg/dL (8.5-10.1); Chloride 95 mmol/L (98-107); Creatinine, Serum 1.09 mg/dL (0.70-1.30); EST Glomerular Filtration Rate 70 mL/min (>60); Est Glom Filt Rate - Afr Amer 85 mL/min (>60); Glucose 197 mg/dL (74-106); Potassium 3.7 mmol/L (3.5-5.1); Sodium Level 136 mmol/L (136-145)
[2024-04-04 09:23] LABS: Differential Indicated SCAN CRITERIA MET
[2024-04-04 09:25] LABS: Platelet Estimate ADEQUATE (ADEQ)
== END ==
LOC: OLS.SW 05:00
PROVIDERS: Referring Provider Internal Medicine; Visit Provider Internal Medicine
DX: E11.9 Type 2 diabetes mellitus without complications (principal)
CPT/HCPCS: 36415; 80048; 85025

== ENCOUNTER → 2024-04-21 05:14 | Outpatient (REF) | payer MEDICARE, MEDICAID, SELFPAY ==
[2024-04-21 06:38] LABS: Thyroid Stim Hormone (TSH) 3.46 uIU/mL (0.358-3.74)
== END ==
LOC: OLS.SW 05:14
PROVIDERS: Visit Provider Internal Medicine
DX: E03.9 Hypothyroidism, unspecified (principal)
CPT/HCPCS: 36415; 82140; 84443

== ENCOUNTER → 2024-05-01 | Outpatient (REF) | payer MEDICARE, MEDICAID, SELFPAY ==
[2024-05-01 08:52] LABS: Hemoglobin A1c 10.3 % (3.8-5.6)
== END ==
LOC: OLS.SW 05:00
PROVIDERS: Visit Provider Internal Medicine
DX: E11.9 Type 2 diabetes mellitus without complications (principal)
CPT/HCPCS: 36415; 83036

== ENCOUNTER → 2024-05-02 | Outpatient (REF) | payer MEDICARE, MEDICAID, SELFPAY ==
[2024-05-02 08:28] LABS: Hemoglobin A1c 10.4 % (3.8-5.6)
== END ==
LOC: OLS.SW 05:00
PROVIDERS: Visit Provider Internal Medicine
DX: E11.9 Type 2 diabetes mellitus without complications (principal)
CPT/HCPCS: 36415; 83036

== ENCOUNTER → 2024-05-03 | Outpatient (REF) | payer MEDICARE, MEDICAID, SELFPAY ==
[2024-05-03 08:16] LABS: Color, Urine Yellow (Yellow); Glucose, Dipstick 250 mg/dl (Normal); Ketone-Dipstick 5 mg/dl (Negative); Leukocyte Esterase-Dipstick 500 /ul (Negative); Nitrite-Dipstick Negative (Negative); Occult Blood-Urine 25 /ul (Negative); Protein-Dipstick 15 mg/dl (Negative); Specific Gravity, Urine 1.015 (1.002-1.030); Urine Bilirubin Dipstick Negative (Negative); Urine Clarity Sl. Cloudy (Clear); Urine Urobilinogen Normal (Normal)
[2024-05-03 10:08] LABS: Microalbumin,Random Urine 18.5 mg/L (NO RANGE EST.)
== END ==
LOC: OLS.SW 03:00
PROVIDERS: Visit Provider Internal Medicine
DX: E11.9 Type 2 diabetes mellitus without complications (principal); R39.9 Unspecified symptoms and signs involving the genitourinary system
CPT/HCPCS: 81002; 82043

== ENCOUNTER → 2024-06-12 05:00 | Outpatient (REF) | payer MEDICARE, MEDICAID, SELFPAY ==
[2024-06-12 10:14] LABS: Valproic Acid (Depakene) Level 38 ug/mL (50-100)
== END ==
LOC: OLS.SW 05:00
PROVIDERS: Visit Provider Internal Medicine
DX: Z79.899 Other long term (current) drug therapy (principal)
CPT/HCPCS: 36415; 80164

== ENCOUNTER → 2024-06-28 | Outpatient (REF) | payer MEDICARE, MEDICAID, SELFPAY ==
[2024-06-28 09:42] LABS: Hemoglobin A1c 7.6 % (3.8-5.6)
== END ==
LOC: OLS.SW 06:40
PROVIDERS: Visit Provider Internal Medicine
DX: E11.9 Type 2 diabetes mellitus without complications (principal)
CPT/HCPCS: 36415; 83036

== ENCOUNTER → 2024-08-01 | Outpatient (REF) | payer MEDICARE, MEDICAID, SELFPAY | LOC: OLS.SW 05:00 | PROVIDERS: Visit Provider Internal Medicine | DX: Z79.899 Other long term (current) drug therapy (principal) | CPT/HCPCS: 36415; 84443 ==

== ENCOUNTER → 2024-09-29 | Outpatient (REF) | payer MEDICARE, MEDICAID, SELFPAY ==
[2024-09-29 07:53] LABS: Absolute Lymphocyte Count 2.76 X10^3/uL (0.83-4.51); Absolute Neutrophil Count 3.1 X10^3/uL (2.0-7.7); Basophil# 0.06 X10^3/uL; Basophil% 0.8 % (0-1); Eosinophil# 0.17 X10^3/uL; Eosinophils% 2.4 % (0-5); Hematocrit 39.4 % (40-54); Hemoglobin 13.1 g/dL (13.0-16.5); Lymphocyte # 2.76 X10^3/ul (0.83-4.51); Lymphocyte % 38.9 % (19-41); Mean Corp Hgb Conc 33.2 g/dL (32-36); Mean Corpuscular Volume 93.1 fL (80-94); Mean Platelet Vol. 9.4 fl (6.2-12.0); Monocyte% 14.1 % (0-10); NRBC Flagged by Analyzer 0 % (0-5); Neutrophil # 3.06 X10^3/uL (2.7-7.7); Neutrophil % 43.2 % (47-70); Platelet Count 203 K/mm3 (150-450); RBC Distribution Width CV 13.4 % (11.6-14.6); RBC Distribution Width SD 45.4 fl (35.1-43.9); Red Blood Count 4.23 M/mm3 (4.6-6.2); White Blood Count 7.1 K/mm3 (4.4-11.0)
[2024-09-29 09:50] LABS: CRP 3.29 mg/L (0.0-3.0)
== END ==
LOC: OLS.SW 05:00
PROVIDERS: Visit Provider Internal Medicine
DX: R60.9 Edema, unspecified (principal)
CPT/HCPCS: 36415; 85025; 86140

== ENCOUNTER → 2024-10-05 | Outpatient (REF) | payer MEDICARE, MEDICAID, SELFPAY ==
[2024-10-05 09:41] LABS: Anion Gap 6 (5-15); BUN 11 mg/dL (7-18); Calcium,Total 8.6 mg/dL (8.5-10.1); Chloride 102 mmol/L (98-107); Creatinine, Serum 0.61 mg/dL (0.70-1.30); EST Glomerular Filtration Rate 137 mL/min (>60); Est Glom Filt Rate - Afr Amer 166 mL/min (>60); Glucose 176 mg/dL (74-106); Magnesium 2.3 mg/dL (1.6-2.6); Potassium 3.4 mmol/L (3.5-5.1); Sodium Level 140 mmol/L (136-145)
== END ==
LOC: OLS.SW 05:00
PROVIDERS: PCP Internal Medicine; Visit Provider Internal Medicine
DX: R60.9 Edema, unspecified (principal); E03.9 Hypothyroidism, unspecified
CPT/HCPCS: 36415; 80048; 83735; 84443

== ENCOUNTER → 2024-12-06 | Outpatient (REF) | payer MEDICARE, MEDICAID, SELFPAY ==
[2024-12-06 08:18] LABS: Cholesterol 141 mg/dL (<=200); High Density Lipoprotein 32 mg/dL; Low Density Lipoprotein Calc. 61 mg/dL; Triglycerides 244 mg/dL; Very Low Density Lipoprotein 49 mg/dL (5-40); cholesterol:hdl ratio screen 4.46
== END ==
LOC: OLS.SW 05:00
PROVIDERS: PCP Internal Medicine; Visit Provider Internal Medicine
DX: E78.5 Hyperlipidemia, unspecified (principal)
CPT/HCPCS: 36415; 80061

== ENCOUNTER → 2025-01-03 | Outpatient (REF) | payer MEDICARE, MEDICAID, SELFPAY ==
[2025-01-03 13:07] LABS: Valproic Acid (Depakene) Level 56 ug/mL (50-100)
== END ==
LOC: OLS.SW 05:00
PROVIDERS: PCP Internal Medicine; Visit Provider Internal Medicine
DX: Z79.899 Other long term (current) drug therapy (principal)
CPT/HCPCS: 36415; 80164

== ENCOUNTER → 2025-01-05 | Outpatient (REF) | payer MEDICARE, MEDICAID, SELFPAY ==
[2025-01-05 08:38] LABS: Hemoglobin A1c 8.1 % (<=5.6)
== END ==
LOC: OLS.SW 06:34
PROVIDERS: PCP Internal Medicine; Visit Provider Internal Medicine
DX: E11.9 Type 2 diabetes mellitus without complications (principal); I10 Essential (primary) hypertension
CPT/HCPCS: 36415; 83036

== ENCOUNTER → 2025-02-01 | Outpatient (REF) | payer MEDICARE, MEDICAID, SELFPAY ==
[2025-02-01 08:41] LABS: Hemoglobin 12.7 g/dL (13.0-16.5); Mean Corp Hgb Conc 35.3 g/dL (32-36); Mean Corpuscular Hgb 32.6 pg (27.0-32.0); Mean Corpuscular Volume 92.3 fL (80-94); Mean Platelet Vol. 8.9 fl (6.2-12.0); Platelet Count 158 K/mm3 (150-450); RBC Distribution Width CV 13.2 % (11.6-14.6); RBC Distribution Width SD 44.3 fl (35.1-43.9); White Blood Count 6.1 K/mm3 (4.4-11.0)
[2025-02-01 09:05] LABS: Anion Gap 13 (5-15); BUN 10 mg/dL (4-19); BUN/Creat Ratio 16.2 RATIO (10-20); Calcium,Total 8.4 mg/dL (7.6-11.0); Carbon Dioxide 25.5 mmol/L (21.0-32.0); Chloride 98 mmol/L (98-108); Creatinine, Serum 0.64 mg/dL (0.70-1.20); EST Glomerular Filtration Rate 99 (>60); Glucose 203 mg/dL (70-99); Magnesium 2.2 mg/dL (1.5-2.2); Potassium 3.5 mmol/L (3.3-5.1); Sodium Level 136 mmol/L (133-145)
== END ==
LOC: OLS.SW 05:00
PROVIDERS: PCP Internal Medicine; Visit Provider Internal Medicine
DX: F20.9 Schizophrenia, unspecified (principal); E11.9 Type 2 diabetes mellitus without complications
CPT/HCPCS: 36415; 80048; 83735; 85027

== ENCOUNTER → 2025-02-13 | Outpatient (CLI) | payer MEDICARE, MEDICAID, SELFPAY ==
--- NOTE | 2025-02-13 09:10 | ART_ITS ---
Reason For Study Reason For Study: PVD Procedure A bilateral lower extremity continuous wave Doppler with analog waveform analysis,segmental pressures,and ankle brachial indexes without exercise. Performed with patient in wheelchair, unable to move to bed due to arriving with needing gaurav lift. Left Segmental Pressures Left brachial= 136mmHg. Left posterior tibial artery = 136mmHg. Left dorsalis pedis artery = 133mmHg. Left digit = 96 mmHg. The left dorsalis pedis waveforms are triphasic. The left posterior tibial artery waveforms are triphasic. Right Segmental Pressures Right brachial= 125mmHg. Right posterior tibial artery = 135mmHg. Right dorsalis pedis artery = 178mmHg. Right digit = 95 mmHg. The right dorsalis pedis waveforms are triphasic. The right posterior tibial artery waveforms are triphasic. Indices The right ankle brachial index by the dorsalis pedis is 1.31. The right ankle brachial index by the posterior tibial artery is 0.99. The right digital-brachial index is 0.70. The left ankle brachial index by the dorsalis pedis is 0.98. The left ankle brachial index by the posterior tibial artery is 1.00. The left digital-brachial index is 0.71. VL/Lower Ext Art Exam w/o Exercis Interpretation Summary Right ASHLEY 1.31, normal. Doppler/PVR waveforms of the right leg normal at rest. 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 Left ASHLEY 1.0, normal. Doppler/PVR waveforms of the left leg normal at rest. 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 Ordering Physician: Kourtney Farrar Referring Physician: Avani Eduardo Performed By: Micheline Busby RVT
== END | disposition home or self-care (01) ==
LOC: CVS 09:10
PROVIDERS: PCP Internal Medicine; Referring Provider Physician Assistant; Visit Provider Physician Assistant
DX: I73.9 Peripheral vascular disease, unspecified (principal)
CPT/HCPCS: 93923

== ENCOUNTER → 2025-02-28 05:00 | Outpatient (REF) | payer MEDICARE, MEDICAID, SELFPAY | LOC: OLS.SW 05:00 | PROVIDERS: PCP Internal Medicine; Visit Provider Internal Medicine | DX: E03.9 Hypothyroidism, unspecified (principal) | CPT/HCPCS: 36415; 84443 ==

== ENCOUNTER → 2025-04-03 | Outpatient (REF) | payer MEDICARE, MEDICAID, SELFPAY ==
[2025-04-03 11:08] LABS: Anion Gap 17 (5-15); BUN 12 mg/dL (4-19); BUN/Creat Ratio 14.2 RATIO (10-20); Calcium,Total 9.8 mg/dL (7.6-11.0); Carbon Dioxide 24.9 mmol/L (21.0-32.0); Chloride 96 mmol/L (98-108); Glucose 229 mg/dL (70-99); Magnesium 2.3 mg/dL (1.5-2.2); Potassium 4.2 mmol/L (3.3-5.1)
[2025-04-03 11:17] LABS: Hematocrit 44.7 % (40-54); Hemoglobin 15.1 g/dL (13.0-16.5); Mean Corp Hgb Conc 33.8 g/dL (32-36); Mean Corpuscular Volume 95.9 fL (80-94); Mean Platelet Vol. 9.5 fl (6.2-12.0); Platelet Count 252 K/mm3 (150-450); RBC Distribution Width CV 13.8 % (11.6-14.6); RBC Distribution Width SD 49.1 fl (35.1-43.9); Red Blood Count 4.66 M/mm3 (4.6-6.2); White Blood Count 7.2 K/mm3 (4.4-11.0)
== END ==
LOC: OLS.SW 05:00
PROVIDERS: PCP Internal Medicine; Visit Provider Internal Medicine
DX: I10 Essential (primary) hypertension (principal); E11.9 Type 2 diabetes mellitus without complications
CPT/HCPCS: 36415; 80048; 83735; 85027

== ENCOUNTER → 2025-04-24 | Outpatient (REF) | payer MEDICARE, MEDICAID, SELFPAY ==
[2025-04-24 08:08] LABS: Anion Gap 12 (5-15); BUN 15 mg/dL (4-19); BUN/Creat Ratio 20.2 RATIO (10-20); Calcium,Total 9.1 mg/dL (7.6-11.0); Carbon Dioxide 29.3 mmol/L (21.0-32.0); Chloride 96 mmol/L (98-108); Glucose 147 mg/dL (70-99); Magnesium 2.3 mg/dL (1.5-2.2); Potassium 3.8 mmol/L (3.3-5.1)
== END ==
LOC: OLS.SW 04:00
PROVIDERS: PCP Internal Medicine; Referring Provider Internal Medicine; Visit Provider Internal Medicine
DX: I10 Essential (primary) hypertension (principal); E11.9 Type 2 diabetes mellitus without complications; Z79.899 Other long term (current) drug therapy
CPT/HCPCS: 36415; 80048; 83735

== ENCOUNTER → 2025-05-01 06:05 | Outpatient (REF) | payer MEDICARE, MEDICAID, SELFPAY ==
--- OUTSIDE RECORDS SUMMARY | 2025-05-01 07:29 | XMS RPT_ITS | CCD ---
Author Organization [facility] Care Team Providers Care 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 Name Role Phone MEG JOE Unavailable Unavailable MEG JOE Unavailable Unavailable IMCA Unavailable Unavailable Maddie Cantor Primary Care Provider [phone] Maddie Cantor Primary Care Provider [phone] NILS MARIE Attending Unavailable MADDIE CANTOR Primary Care Unavailable MADELIN FERGUSON Attending Unavailable MADDIE CANTOR Referring Unavailable MADDIE CANTOR Primary Care Unavailable MATEO BENTON Attending Unavailable MATEO BENTON Referring Unavailable MADDIE CANTOR Primary Care Unavailable Maddie Cantor Primary Care Provider Dr. Maddie Scott Primary Care Provider U Dr. Hilario Conrad Emergency Provider Dr. Carrie Hooper Admit Provider Dr. Carrie Hooper Attending Provider Dr. Carrie Hooper Other Provider [phone] Chino Cannon Attending Provider Unavailable Dr. Chino Cannon Other Provider Unavailable MADDIE CANTOR Primary Care Unavailable LORENE ORTIZ Attending Unavailable HILARIO MALIK Referring Unavailab KERON Christensen Admitting Unavailable MICHELINE HUBER Consulting Unavailable NILS CANTOR Primary Care Provider Dr. Kary Recio Admit Provider Dr. Kary Recio Other Provider Dr. Nina Wilder Attending Provider Wilder, Dr. Nina Other Provider Dr. Kary Recio Attending Provider [phone] STANTON ANDREWS Attending Unavailable STANTON ANDREWS Attending Unavailable STANTON ANDREWS Attending Unavailable STNATON ANDREWS Attending Unavailable Town Doctor, Out of Primary Care Provider Papa Eduardo MD, Dr. Varma Attending Provider Unavailsherie Eduardo MD, Dr. Varma Primary Care Provider UnaKourtney Rob Attending Provider [phone] Jayce MUNOZ, Dr. Varma Referring Provider Unavailsherie Eduardo MD, Dr. Varma Primary Care Provider Surjit Eduardo MD, Dr. Varma Attending Provider UnavailKourtney Antonio Referring Provider Génesis MUNOZ, Dr. Schulte Attending Provider [phone] Gudla, Avani Primary Care Unavailable Gudla OLS Avani Attending Unavailable Gudla, Avani Primary Care Unavailable Gudla OLS, Avani Attending Unavailable Town Doctor, Out of Primary Care Unavailable Gudla OLS, Avani Attending Unavailable Town Doctor, Out of Primary Care Unavailable Gudla OLS, Avani Attending Unavailable Gudla, Avani Primary Care Unavailable Gudla OLS, Avani Attending Unavailable Town Doctor, Out of Primary Care Unavailable Gudla OLS, Avani Attending Unavailable Town Doctor, Out of Primary Care Unavailable Gudla OLS, Avani Attending Unavailable Town Doctor, Out of Primary Care Unavailable Gudla OLS, Avani Attending Unavailable Gudla, Avani Primary Care Unavailable Kourtney Farrar Referring Unavailable Kourtney Farrar Attending Unavailable Town Doctor, Out of Primary Care Unavailable Gudla OLS, Avani Attending Unavailable Town Doctor, Out of Primary Care Unavailable Gudla OLS, Avani Attending Unavailable Gudla, Avani Primary Care Unavailable Gudla, Avani Referring Unavailable Kourtney Farrar Attending Unavailable Gudla, Avani Primary Care Unavailable Gudla OLS, Avani Attending Unavailable Gudla, Avani Primary Care Unavailable Gudla OLS, Avani Attending Unavailable Gudla, Avani Primary Care Unavailable Gudla OLS, Avani Attending Unavailable Gudla, Avani Primary Care Unavailable Gudla OLS, Avani Attending Unavailable Liama, Avani Primary Care Unavailable Liama, Avani Referring Unavailable Kourtney Farrar Attending Unavailable Gudla, Avani Primary Care Unavailable Eris Capps Attending Unavailable Kourtney Farrar Referring Unavailable Gudla, Avani Primary Care Unavailable Avani Subramanian Attending Unavailable Gudla, Avani Primary Care Unavailable Avani Subramanian Attending Unavailable Allergies Allergy Classification Reported Allergen(s) Allergy Type Date of Onset Reaction(s) Facility (20 sources) nickel; Translations: [NICKEL] Drug Allergy 3 Rash [facility] Repository (20 sources) OXcarbazepine; Translations: [[facility]CARBAZEPINE] [facility] salicylic acid; Translations: [SALICYLATES] Drug Allergy 5 [facility] Repository (20 sources) [facility] Drug Allergy 5 [facility] Rep[facility] Medications Current Medications Medication Drug Class(es) Dates Sig (Normalized) Sig (Original) albuterol 0.21 mg/ml inhalation solution (20 sources) beta2-Adrenergic Agonist Start: 07-01-2022 take 0.63 mg by inhalation every four hours Albuterol Sulfate Active 0.63 MG INHALATION Q4H July 01, 2022 12:00am Start: 05-03-2018 End: 05-03-2018 take 2.5 mg by inhalation every four hours as needed for wheezing Albuterol Sulfate 2.5 mg /3 mL (0.083 %) solution for nebulization Discontinued 2.5 mg INHALATION Q4H as needed for shortness of breath or wheezing 180 May 03, 2018 12:00am May 03, 2018 11:09am alendronic acid 70 mg oral tablet (20 sources) Bisphosphonate Start: 12-07-2016 Alendronate 70 MG tablet Active 70 mg PO LEON December 07, 2016 1:00am Comment on above: Take 70 mg by mouth one time a week. allopurinol 100 mg oral tablet (20 sources) Xanthine Oxidase Inhibitor Start: 08-10-2014 take 1 tablet by mouth at bedtime Allopurinol 100 MG tablet Active 100 mg PO AT BEDTIME December 07, 2016 1:00am Comment on above: Take 1 tablet by heather once daily. For gout. ascorbic acid 113 mg / beta carotene 7160 mg / cuprous oxide 0.4 mg / dl-alpha tocopheryl acetate 100 unt / zinc oxide 17.4 mg oral tablet (1 source) Vitamin C Start: 01-04-2023 take 1 tablet by mouth once daily at lunch Vitamins A,C,A-Ampg-Jzjgni (Eye Multivitamin) 2,148 mcg-113 mg-45 mg-17.4mg Tablet Active 1 TABLET PO DAILY January 04, 2023 12:00am administer with LUNCH atorvastatin 40 mg oral tablet (20 sources) HMG-CoA Reductase Inhibitor Start: 10-29-2015 take 1 tablet by mouth at bedtime Atorvastatin 40 MG tablet Active 40 mg PO AT BEDTIME December 07, 2016 1:00am Comment on above: Take 1 tablet by [facility] once daily. bethanechol chloride 25 mg oral tablet (12 sources) Cholinergic Muscarinic Agonist Start: 03-17-2019 take 25 mg by mouth three times daily Bethanechol Chloride Active 25 MG PO THREE TIMES A DAY March 17, 2019 12:00am Comment on above: Take 25 mg by mouth three times daily. bismuth subsalicylate 17.5 mg/ml oral suspension (5 sources) Bismuth Start: 07-15-2020 Bismuth Subsalicylate ([place] Bismuth) 262 mg/15 mL suspension Active 524 MG PO every 30 to 60 minutes July 15, 2020 12:00am do not exceed 8 doses in a 24 hour period bumetanide 1 mg oral tablet (20 sources) Loop Diuretic Start: 01-04-2023 take 1 tablet by mouth once daily Bumetanide 1 mg Tablet Active 2 mg PO DAILY January 04, 2023 12:00am Start: 01-04-2023 take 2 mg by mouth once daily Bumetanide Active 2 MG PO DAILY January 04, 2023 12:00am Start: 02-04-2017 take 2 mg by mouth once daily Bumetanide Active 2 MG PO DAILY March 23, 2017 12:00am Comment on above: Take 1 tablet by heather once daily. cephalexin 500 mg oral tablet (1 source) Cephalosporin Antibacterial Start: 023 take 500 mg by mouth twice daily Cephalexin Active 500 MG PO TWICE A DAY January 04, 2023 12:00am cholecalciferol 0.05 mg oral capsule (20 sources) Vitamin D Start: 019 take 1 capsule by mouth once daily Cholecalciferol (Vitamin D3) 2,000 UNIT capsule Active 2000 U PO DAILY July 11, 2019 12:00am Start: 07-11-2019 take 2000 [IU] by mo [facility] at bedtime Cholecalciferol (Vitamin D3) Active 2000 UNIT PO AT BEDTIME July 11, 2019 12:00am take 1 tablet by heather once daily cholecalciferol (VITAMIN D3) 50 mcg (2,000 unit) tablet Take 2,000 Units by mouth once daily. 0 Active Comment on above: Take 2,000 Units by mouth once daily. clopidogrel 75 mg oral tablet (20 sources) P2Y12 Platelet Inhibitor Start: 6 take 1 tablet by mouth once daily Clopidogrel 75 MG tablet Active 75 mg PO DAILY December 07, 2016 1:00am Comment on above: Take 1 tablet by heather once daily. docusate sodium 100 mg oral capsule (2 sources) Start: 5 take 1 capsule by mouth twice daily Docusate Sodium (Colace) 100 mg capsule Active 100 mg PO TWICE A DAY November 01, 2024 1:00am Dulaglutide (2 sources) GLP-1 Receptor Agonist Start: 5 Dulaglutide (Trulicity) 3 mg/0.5 mL pen injector Active 3 mg SC EVERY WEEK November 01, 2024 1:00am Start: 11-01-2024 Dulaglutide (T rulicity) 3 mg/0.5 mL pen injector Discontinued 3 mg SC EVERY WEEK November 01, 2024 1:00am famotidine 20 mg oral tablet (20 sources) Histamine-2 Receptor Antagonist Start: 01-04-2023 take 20 mg by mouth twice daily Famotidine Active 20 MG PO TWICE A DAY January 04, 2023 12:00am Start: 12-07-2016 End: 03-17-2019 take 1 tablet by mouth at bedtime Famotidine 20 MG tablet Discontinued 20 mg PO AT BEDTIME December 07, 2016 1:00am March 17, 2019 1:16pm ferrous sulfate 325 mg oral tablet (1 source) Start: 01-04-2023 take 325 mg by mouth once daily Ferrous Sulfate Active 325 MG PO DAILY January 04, 2023 12:00am finasteride 5 mg oral tablet (20 sources) 5-alpha Reductase Inhibitor Start: 06-12-2016 take 1 tablet by mouth once daily Finasteride 5 MG tablet Active 5 mg PO DAILY December 07, 2016 1:00am Comment on above: Take 1 tablet by heather th once daily. 12 hr guaiFENesin 600 mg extended release oral tablet (5 sources) Start: 07-01-2022 take 1 tablet by mouth twice daily, then take 1 tablet by mouth every twelve hours Guaifenesin (Mucinex) 600 mg Tablet Extended Release 12hr Active 600 MG PO TWICE A DAY July 01, 2022 12:00am ibuprofen 600 mg oral tablet (5 sources) Nonsteroidal Anti-inflammatory Drug Start: 07-01-2022 take 600 mg by mouth every six hours Ibuprofen Active 600 MG PO EVERY 6 HOURS July 01, 2022 12:00am lactase 3000 unt oral tablet (4 sources) Start: 07-15-2020 take 3000 [IU] by mouth once at mealtime Lactase Active 3000 UNIT PO ONCE July 15, 2020 12:00am administer with meals and/or snacks lactulose 667 mg/ml oral solution (15 sources) Osmotic Laxative Start: 01-18-2023 Lactulose 20 gram/30 mL solution Active 20 g PO THREE TIMES A DAY 2999January 18, 2023 12:00am titrate until patient is having 2-3 loose stools daily levETIRAcetam 750 mg oral tablet (20 sources) Start: 01-04-2023 End: 11-01-2024 take 2 tablets by mouth twice daily Levetiracetam 750 mg tablet Active 1500 mg PO TWICE A DAY November 01, 2024 11:31am Start: 01-04-2023 take 1500 mg by mout h twice daily Levetiracetam Active 1500 MG PO TWICE A DAY January 04, 2023 12:00am Start: 12-01-2021 End: 03-10-2022 take 2 tablets by mouth twice daily levETIRAcetam (KEPPRA) 750 mg tablet 2 TABLETS (1,500MG) BY MOUTH 2 TIMES A DAY DX: / NURSE TO REORDER 120 tablet 5 03/10/2022 Active Start: 07-15-2020 take 1500 mg by mout h twice daily Levetiracetam Active 1500 MG PO TWICE A DAY July 15, 2020 1:54pm Start: 08-31-2019 End: 07-15-2020 Levetiracetam 250 MG tablet Discontinued 250 mg PO DAILY August 31, 2019 1:00am July 15, 2020 2:11pm Take in addition to the thousand 500 mg scheduled every day making a total of 1750 mg daily; 2000 mg at night Start: 08-31-2019 End: 07-15-2020 take 500 mg by mouth once daily, then take 1750 mg by mouth once daily Levetiracetam Discontinued 250 MG PO DAILY August 31, 2019 1:00am July 15, 2020 2:11pm Take in addition to the thousand 500 mg scheduled every day making a total of 1750 mg daily; 2000 mg at night Start: 07-11-2019 End: 07-15-2020 Levetiracetam 1,000 MG table t Discontinued 1500 mg PO DAILY July 11, 2019 12:00am July 15, 2020 1:55pm Start: 07-11-2019 End: 07-15-2020 take 2 tablets by mouth at bedtime Levetiracetam 1,000 MG tablet Discontinued 2000 mg PO AT BEDTIME July 11, 2019 12:00am July 15, 2020 1:56pm Start: 07-11-2019 End: 07-15-2020 take 1500 mg by mouth once daily Levetiracetam Discontinued 1500 MG PO DAILY July 11, 2019 12:00am July 15, 2020 1:55pm Start: 07-11-2019 End: 07-15-2020 take 2000 mg by mouth at bedtime Levetiracetam Discontinued 2000 MG PO AT BEDTIME July 11, 2019 12:00am July 15, 2020 1:56pm Start: 12-07-2016 End: 03-17-2019 take 2 tablets by mouth twice daily Levetiracetam 750 MG tablet Discontinued 1500 mg PO TWICE A DAY December 07, 2016 1:00am March 17, 2019 1:16pm Start: 12-07-2016 End: 03-17-2019 take 1500 mg by mouth twice daily Levetiracetam Discontinued 1500 MG PO TWICE A DAY December 07, 2016 1:00am March 17, 2019 1:16pm Comment on above: Take 2 tablets by mo [facility] twice daily. 2 TABLETS (1,500MG) BY MOUTH 2 TIMES A DAY DX: / NURSE TO REORDER levothyroxine sodium 0.05 mg oral tablet (20 sources) l-Thyroxine Start: take 2 tablets by mouth once daily Levothyroxine 50 mcg tablet Active 100 ug PO DAILY November 01, 2024 11:32am Start: 12-07-2016 take 75 ug by mouth once daily Levothyroxine Active 75 MCG PO DAILY December 07, 2016 1:00am Start: 12-30-2012 End: 11-01-2024 take 1 tablet by mouth once daily Levothyroxine 50 MCG tablet Discontinued 50 ug PO DAILY December 07, 2016 1:00am November 01, 2024 11:38am take 1 tablet by heather once daily before breakfast levothyroxine (SYNTHROID) 75 mcg tablet Take 75 mcg by mouth daily before breakfast. 0 Active Comment on above: Take 1 tablet by heather th once daily. Take on empty stomach. For Thyroid. Take 75 mcg by mouth daily before breakfast. Take 50 mcg by mouth once daily. Take on empty stomach. For Thyroid. loperamide hydrochloride 2 mg oral tablet (20 sources) Opioid Agonist Start: 07-15-2020 take 2 mg by mouth every six hours Loperamide Active 2 MG PO EVERY 6 HOURS July 15, 2020 12:00am Start: 03-17-2019 End: 07-15-2020 Loperamide 2 mg capsule Disc ontinued 4 mg PO every 1 to 4 hours as needed for Diarrhea March 17, 2019 12:00am July 15, 2020 2:10pm Start: 03-17-2019 End: 07-15-2020 Loperamide Discontinued 4 MG PO every 1 to 4 hours March 17, 2019 12:00am July 15, 2020 2:10pm loratadine 10 mg oral capsule (20 sources) Start: 07-15-2020 take 1 capsule by mouth at bedtime Loratadine 10 mg capsule Active 10 mg PO AT BEDTIME July 15, 2020 12:00am take 1 tablet by heather th once daily at bedtime loratadine (CLARITIN) 10 mg tablet Take 10 mg by mouth daily at bedtime. 0 Active Comment on above: Take 10 mg by mouth daily at bedtime. lysine 500 mg oral tablet (4 sources) Start: 07-01-2022 take 1 capsule by mouth once daily Lysine (L-Lysine) 500 mg Capsule Active 500 MG PO DAILY July 01, 2022 12:00am magnesium oxide 400 mg oral tablet (20 sources) Start: 07-11-2019 take 1 tablet by mouth at bedtime Magnesium Oxide 400 MG tablet Active 400 mg PO AT BEDTIME July 11, 2019 12:00am Start: 12-07-2016 End: 03-17-2019 take 1 tablet by mouth at bedtime Magnesium Oxide 250 MG tablet Discontinued 250 mg PO AT BEDTIME December 07, 2016 1:00am March 17, 2019 1:16pm Comment on above: Take 400 mg by mouth daily at bedtime. melatonin 5 mg oral capsule (2 sources) Start: 11-01-19 Melatonin 5 mg capsule Active mg PO November 01, 2024 1:00am montelukast 10 mg oral tablet (20 sources) Leukotriene Receptor Antagonist Start: 03-17-20 take 1 tablet by mouth at bedtime Montelukast 10 mg tablet Active 10 mg PO AT BEDTIME March 17, 2019 12:00am Comment on above: Take 10 mg by mouth daily at bedtime. OLANZapine 5 mg disintegrating oral tablet (20 sources) Atypical Antipsychotic Start: 11-01-19 take 7.5 mg by mouth at bedtime Olanzapine 5 mg tablet,disintegrati ng Active 7.5 mg PO AT BEDTIME November 01, 2024 11:34am Start: 10-02-2020 take 1 tablet by heather th once daily at bedtime OLANZapine (ZYPREXA) 7.5 mg tablet Take 1 tablet by mouth daily at bedtime. 90 tablet 0 10/02/2020 Active Start: 07-15-2020 End: 11-01-2024 take 2 tablets by mouth at bedtime Olanzapine 5 mg tablet,disintegrating Discontinued 10 mg PO AT BEDTIME July 15, 2020 2:01pm November 01, 2024 11:38am Start: 07-15-2020 take 10 mg by mouth at bedtime Olanzapine Active 10 MG PO AT BEDTIME July 15, 2020 2:01pm Start: 12-07-2016 End: 07-15-2020 take 1 tablet by mouth at bedtime Olanzapine 5 MG tablet,disintegrating Discontinued 5 mg PO AT BEDTIME December 07, 2016 1:00am July 15, 2020 2:11pm take 1 tablet by heather th once daily at bedtime OLANZapine (ZYPREXA) 10 mg tablet Take 10 mg by mouth daily at bedtime. 0 Active Comment on above: Take 1 tablet by heather daily at bedtime. Take 10 mg by mouth daily at bedtime. pantoprazole 40 mg delayed release oral tablet (20 sources) Proton Pump Inhibitor Start: 03-17-20 19 take 1 tablet by mouth once daily Pantoprazole 40 mg tablet,delayed release (DR/EC) Active 40 mg PO DAILY March 17, 2019 12:00am Comment on above: Take 40 mg by mouth once daily. polyethylene glycol 3350 74335 mg powder for oral solution (5 sources) Osmotic Laxative Start: 07-15-20 Polyethylene Glycol 3350 (Miralax) 17 gram/dose powder Active 17 GM PO DAILY July 15, 2020 12:00am microencapsulated potassium chloride 20 meq extended release oral tablet (20 sources) Start: 07-11-20 19 take 1 tablet by mouth twice daily Potassium Chloride 20 MEQ tablet,ER particles/crystals Active 20 meq PO TWICE A DAY July 11, 2019 12:00am Start: 10-25-2015 take 20 mEq by mouth twice daily potassium chloride (KLOR-CON) 20 mEq packet Take 20 mEq by mouth twice daily. 0 10/25/2015 Active Comment on above: Take 20 mEq by mouth twice daily. pregabalin 200 mg oral capsule (20 sources) Start: 01-10-2023 End: 01-18-2023 take 1 capsule by mouth three times daily Pregabalin 200 mg Capsule Active 200 mg PO THREE TIMES A DAY January 18, 2023 5:12pm take 1 capsule by mo [facility] three times daily Pregabalin (LYRICA) 200 mg capsule Take 200 mg by mouth three times daily. 0 Active Comment on above: Take 200 mg by mouth three times daily. rOPINIRole 1 mg oral tablet (20 sources) Nonergot Dopamine Agonist Start: 05-10-20 13 take 1 tablet by mouth three times daily Ropinirole 1 MG tablet Active 1 mg PO THREE TIMES A DAY July 11, 2019 12:00am Comment on above: Take 1 tablet by heather three times daily. sennosides, longterm 8.6 mg oral capsule (5 sources) Start: 07-15-20 20 take 1 capsule by mouth once daily Sennosides (Senna) 8.6 mg capsule Active 8.6 MG PO DAILY July 15, 2020 12:00am spironolactone 25 mg oral tablet (20 sources) Aldosterone Antagonist Start: 07-15-20 20 take 1 tablet by mouth every other day Spironolactone 25 mg tablet Active 25 mg PO EVERY OTHER DAY July 15, 2020 1:57pm Start: 07-15-2020 take 0.25 mg by mout h every other day Spironolactone Active 25 MG PO .25 MG QOD, 50MG QOD July 15, 2020 1:57pm 25mg qod, 50mg qod Start: 12-07-2016 End: 07-15-2020 Spironolactone 25 MG tablet Discontinued 37.5 mg PO DAILY December 07, 2016 1:00am July 15, 2020 2:11pm Start: 12-07-2016 End: 07-15-2020 take 37.5 mg by mouth once daily Spironolactone Discontinued 37.5 MG PO DAILY December 07, 2016 1:00am July 15, 2020 2:11pm spironolactone ( ALDACTONE) 50 mg tablet Take 50 mg by mouth every 48 hours. alternating with 25 mg tablets 0 Active Comment on above: Take 1 tablet by heather th every other day. Take 50 mg by mouth every 48 hours. alternating with 25 mg tablets tamsulosin hydrochloride 0.4 mg oral capsule (3 sources) alpha-Adrenergic Ramon Start: take 1 capsule by mouth once daily Tamsulosin 0.4 mg capsule Active 0.4 mg PO daily November 01, 2024 1:00am Start: 01-04-2023 take 0.4 mg by mouth once baltazar y Tamsulosin Active 0.4 MG PO DAILY January 04, 2023 12:00am valproic acid 50 mg/ml oral solution (20 sources) Mood Stabilizer, Anti-epileptic Agent Start: 03-13-2022 End: 03-28-2023 take 1000 mg by mouth three times daily Valproic Acid (As Sodium Salt) 250 mg/5 mL Solution Active 1000 mg PO THREE TIMES A DAY July 01, 2022 12:00am Start: 12-01-2021 End: 02-06-2022 take 2 tablets by mouth three times daily divalproex ER (DEPAKOTE ER) 500 mg 24 hr tablet Take 2 tablets by mouth three times daily. 180 tablet 0 02/06/2022 Active Comment on above: Take 2 tablets by mo [facility] three times daily. Take 20 mL by mouth three times daily. 24 hr venlafaxine 150 mg extended release oral capsule (20 sources) Serotonin and Norepinephrine Reuptake Inhibitor Start: 07-11-20 End: 07-15-20 take 1 capsule by mouth once daily Venlafaxine 150 mg capsule,extended release 24hr Active 150 mg PO DAILY July 15, 2020 2:04pm Comment on above: Take 1 capsule by mo [facility] once daily. Take Effexor XR 150 mg with Effexor XR 37.5 mg daily vitamin e 90 mg oral capsule (11 sources) Start: 03-17-20 take 400 [IU] by mouth every other day Vitamin E Active 400 UNIT PO EVERY OTHER DAY March 17, 2019 12:00am Vitamin E, dl, a cetate, (VITAMIN E) 400 unit capsule Take 400 Units by mouth every other day. Once capsule by mouth every other day with lunch 0 Active Vitamin E, dl, a cetate, (VITAMIN E) 400 unit capsule Take 400 Units by mouth every other day. Once capsule by mouth every other day with lunch 0 Active Comment on above: Take 400 Units by mo [facility] every other day. Once capsule by mouth every other day with lunch Completed/Discontinued Medications Medication Drug Class(es) Dates Sig (Normalized) Sig (Original) acetaminophen 325 mg oral tablet (20 sources) Start: 01-10-2023 End: 01-13-2023 take 4 tablets by mouth twice daily Acetaminophen 325 mg tablet Discontinued 1300 mg PO TWICE A DAY January 10, 2023 12:00am January 13, 2023 3:55pm Start: 01-10-2023 End: 01-13-2023 take 1300 mg by mouth twice daily Acetaminophen Discontinued 1300 MG PO TWICE A DAY January 10, 2023 12:00am January 13, 2023 3:55pm Start: 03-23-2017 take 1300 mg by mout twice daily Acetaminophen Active 1300 MG PO TWICE A DAY March 23, 2017 12:00am take 2 tablets by mo [facility] twice daily acetaminophen 650 mg CR tablet Take 1,300 mg by mouth twice daily. 0 Active Comment on above: [facility] acet[facility] 325 mg / HYDROcodone bitartrate 5 mg oral tablet (20 sources) Opioid Agonist Start: 12-07-2016 End: 03-17-2019 Hydrocodone-Acetaminophe n 1 EACH tablet Discontinued 1 NMA PO EVERY 6 HOURS NEEDED as needed for Pain December 07, 2016 1:00am March 17, 2019 1:16pm Start: 12-07-2016 End: 03-17-2019 Hydrocodone-Acetaminophen Di scontinued 1 EACH PO EVERY 6 HOURS NEEDED December 07, 2016 1:00am March 17, 2019 1:16pm 24 hr alfuzosin hydrochloride 10 mg extended release oral tablet (20 sources) alpha-Adrenergic Ramon Start: 01-10-2023 End: 11-01-2024 take 1 tablet by mouth every twenty-four hours at bedtime Alfuzosin 10 mg tablet extended release 24 hr Discontinued 10 mg PO AT BEDTIME January 10, 2023 12:00am November 01, 2024 11:38am Start: 03-23-2017 take 10 mg by mouth at bedtime Alfuzosin Active 10 MG PO AT BEDTIME March 23, 2017 12:00am Comment on above: Take 10 mg by mouth daily at bedtime. ascorbic acid 500 mg oral capsule (20 sources) Vitamin C Start: 03-17-2019 End: 11-01-2024 take 1 capsule by mouth once daily Ascorbic Acid (Vitamin C) 500 mg capsule Discontinued 500 mg PO DAILY@1200 March 17, 2019 12:00am November 01, 2024 11:28am take 1 tablet by heather th once daily at lunch ascorbic acid, vitamin C, (VITAMIN C) 50 0 mg tablet Take 500 mg by mouth daily with lunch. 0 Active Comment on above: Take 500 mg by mouth daily with lunch. COMPOUNDED PRESCRIPTION (20 sources) Start: 01-27-2016 COMPOUNDED PRESCRIPTION Indications: Neck pain Home PT for upper back and neck pain. Dx:M54.2. 1 Each 0 01/27/2016 Active Start: 02-05-2015 COMPOUNDED PRE SCRIPTION Large manual wheelchair. Dx 345.10; 277.7; 153.9 1 Each 0 02/05/2015 Active Start: 01-18-2013 COMPOUNDED PRE SCRIPTION Use daily lower extremity wraps for edema. May use rita wraps in place of compression stockings. 1 Each 0 01/18/2013 Active Start: 01-16-2013 COMPOUNDED PRE SCRIPTION Indications: Bilateral leg edema KNEE HIGH COMPRESSION STOCKINGS, 20-30 MM, I DX: EDEMA 1 Each 0 01/16/2013 Active Comment on above: KNEE HIGH COMPRESSIO N STOCKINGS, 20-30 MM, I DX: EDEMA Use daily lower extr emity wraps for edema. May use rita wraps in place of compression stockings. Large manual wheelch air. Dx 345.10; 277.7; 153.9 Home PT for upper ba ck and neck pain. Dx:M54.2. Diaper,Brief, Adult,Disposable (ADULT BRIEFS - LARGE) misc (7 sources) Start: 6 Diaper,Brief, Adult,Disposable (ADULT BRIEFS - LARGE) misc 1 Box four times daily as needed. Use 3-4 times daily as needed Dx bowel incontinence due to Cancer-R32, Resection of bowel-Z92.89 200 Each 12 12/23/2015 Active Comment on above: 1 Box four times mary ly as needed. Use 3-4 times daily as needed Dx bowel incontinence due to Cancer-R32, Resection of bowel-Z92.89 ferrous gluconate 240 mg oral tablet (20 sources) Start: 3 End: 5 take 1 tablet by mouth once daily Ferrous Gluconate 270 mg (27 mg iron) Tablet Discontinued 270 mg PO DAILY January 10, 2023 12:00am November 01, 2024 11:30am Start: 03-17-2019 Ferrous Glucon ate (Ferate) 240 mg (27 mg iron) tablet Active 27 MG PO DAILY@1200 March 17, 2019 12:00am Comment on above: Take 1 tablet by heather th daily with food. furosemide 80 mg oral tablet (20 sources) Loop Diuretic Start: 4 End: 4 take 1 tablet by mouth twice daily Furosemide 80 MG tablet Discontinued 80 mg PO TWICE DAILY August 21, 2014 1:00am September 20, 2014 2:19pm 12 hr guaiFENesin 1200 mg / pseudoephedrine hydrochloride 120 mg extended release oral tablet (20 sources) alpha-Adrenergic Agonist Start: 7 End: 9 Pseudoephedrine-Guai fenesin 1 EACH tablet extended release 12 hr Discontinued 0.5 NMA PO TWICE A DAY as needed for Congestion December 07, 2016 1:00am March 17, 2019 1:16pm Start: 12-07-2016 End: 03-17-2019 Pseudoephedrine-Guaifenesin Discontinued 0.5 EACH PO TWICE A DAY December 07, 2016 1:00am March 17, 2019 1:16pm omega-3 acid ethyl esters (longterm) 1000 mg oral capsule (15 sources) Start: 01-10-2023 End: 11-01-2024 Bland 5-Rsy-Ktx-Fish Oil 1,0 00 mg (120 mg-180 mg) Capsule Discontinued 1 NMA PO TWICE A DAY January 10, 2023 12:00am November 01, 2024 11:35am Start: 01-10-2023 take 1 capsule by [facility] twice daily Bland 6-Djr-Xwm-Fish Oil Active 1 CAP PO TWICE A DAY January 10, 2023 12:00am Bland-3 Fatty Acids-Fish Oil (18 sources) Start: 07-11-2019 End: 07-15-2020 take 2 capsules by mouth twice daily Bland-3 Fatty Acids-Fish Oil Discontinued 2 CAP PO TWICE A DAY July 10, 2019 11:00pm July 15, 2020 1:09pm Start: 07-11-2019 End: 07-15-2020 take 2 capsules by mouth twice daily Bland-3 Fatty Acids-Fish Oil Discontinued 2 CAP PO TWICE A DAY July 11, 2019 12:00am July 15, 2020 2:09pm Bland-3 Fatty Acids-Fish Oil 1 EACH capsule (2 sources) Start: 07-11-2019 End: 07-15-2020 Bland-3 Fatty Acids-Fish Oil 1 EACH capsule Discontinued 2 NMA PO TWICE A DAY July 11, 2019 12:00am July 15, 2020 2:09pm Fbxto-1-DHI-EPA-F yahaira Oil (FISH OIL) 1,000 mg (120 mg-180 mg) cap (5 sources) take 1 capsule by mouth twice daily Qnriw-7-WEJ-EPA-Fis h Oil (FISH OIL) 1,000 mg (120 mg-180 mg) cap Take one capsule by mouth twice daily. 0 Active Comment on above: Take one capsule by mouth twice daily. Hivca-5-JUX-EPA-F yahaira Oil 1,000 mg (120 mg-180 mg) cap (2 sources) take 1 capsule by mouth twice daily Jyqms-0-TCW-EPA-Fis h Oil 1,000 mg (120 mg-180 mg) cap Take one capsule by mouth twice daily. 0 Active Comment on above: Take one capsule by mouth twice daily. omeprazole 20 mg delayed release oral capsule (20 sources) Proton Pump Inhibitor Start: 03-23-2017 End: 03-17-2019 take 1 capsule by mouth twice daily Omeprazole 20 MG capsule Discontinued 20 mg PO TWICE A DAY March 23, 2017 12:00am March 17, 2019 1:16pm oxybutynin chloride 5 mg oral tablet (20 sources) Cholinergic Muscarinic Antagonist Start: 12-07-2016 End: 03-17-2019 take 2 tablets by mouth once daily Oxybutynin Chloride 5 MG tablet Discontinued 10 mg PO DAILY December 07, 2016 1:00am March 17, 2019 1:16pm Start: 12-07-2016 End: 03-17-2019 take 10 mg by mouth once daily Oxybutynin Chloride Dis continued 10 MG PO DAILY December 07, 2016 1:00am March 17, 2019 1:16pm Prosight (20 sources) Start: 07-11-2019 End: 07-15-2020 Prosight Discontinued 1 {tbl } PO DAILY@1200 July 11, 2019 12:00am July 15, 2020 2:06pm Start: 07-11-2019 End: 07-15-2020 take 1 tablet by mouth once daily Prosight Discontinued 1 TABLET PO DAILY@1200 July 10, 2019 11:00pm July 15, 2020 1:06pm Start: 07-11-2019 End: 07-15-2020 take 1 tablet by mouth once daily Prosight Discontinued 1 TABLET PO DAILY@1200 July 11, 2019 12:00am July 15, 2020 2:06pm raNITIdine 150 mg oral tablet (20 sources) Histamine-2 Receptor Antagonist Start: 03-17-2019 End: 07-15-2020 take 1 tablet by mouth once daily Ranitidine Hcl 150 mg tablet Discontinued 150 mg PO DAILY@1700 March 17, 2019 12:00am July 15, 2020 2:06pm sucralfate 1000 mg oral tablet (20 sources) Aluminum Complex Start: 01-10-2023 End: 11-01-2024 take 1 tablet by mouth three times daily at mealtime Sucralfate 1 gram Tablet Discontinued 1 g PO 3 TIMES DAILY WITH MEALS January 10, 2023 12:00am November 01, 2024 11:36am Start: 03-17-2019 take 1 g by mouth th ree times daily at mealtime Sucralfate Active 1 GM PO 3 TIMES DAILY WITH MEALS March 17, 2019 12:00am Comment on above: Take 1 tablet by heather th three times daily with meals. THERAPEUTIC MULTIVITAMIN TAB (7 sources) Start: 6 THERAPEUTIC MULTIVITAMIN TAB Take one (1) tablet daily - without iron 30 11 03/17/2006 Active Comment on above: Take one (1) tablet daily - without iron tiaGABine hydrochloride 12 mg oral tablet (20 sources) Anti-epileptic Agent Start: 7 End: 0 take 1 tablet by mouth twice daily Tiagabine 12 MG tablet Discontinued 12 mg PO TWICE A DAY December 07, 2016 1:00am July 15, 2020 2:09pm Problems Active Problems Problem Classification Problem Date Documented Da te Episodic/Chronic Anxiety disorders (20 sources) Anxiety neurosis ; Translations: [Generalized anxiety disorder] Onset: 01-19-2014 01-19-2014 Chronic Diabetes mellitus without complication (2 sources) Type 2 diabetes mellitus without complications; Translations: [Type 2 diabetes mellitus without complications] Onset: 01-30-2025 Chronic Disorders of lipid metabolism (20 sources) Mixed hyperlipidemia; Translations: [Mixed hyperlipidemia] Onset: 10-29-2005 03-22-2020 Chronic E Codes: Fall (20 sources) Fall; Translations: [Unspecified fall, initial encounter] Onset: 01-08-2023 08-31-2019 Episodic Epilepsy; convulsions (20 sources) Generalized convulsive epilepsy; Translations: [Generalized idiopathic epilepsy and epileptic syndromes, not intractable, without status epilepticus] Onset: 11-13-2005 03-22-2020 Chronic Epilepsy; convulsions (20 sources) Seizure; Translations: [Unspecified convulsions] 03-16-2020 Episodic Essential hypertension (20 sources) Essential hypertension; Translations: [Essential (primary) hypertension] Onset: 11-06-2005 03-22-2020 Chronic Comment on above: PER PT, CONTROLLED O N MEDS Fluid and electrolyte disorders (20 sources) Hypervolemia; Translations: [Fluid overload, unspecified] Onset: 02-04-2017 02-04-2017 Episodic Gout and other crystal arthropathies (7 sources) Articular gout; Translations: [Gout, unspecified] Onset: 08-24-2015 03-22-2020 Chronic Hyperplasia of prostate (20 sources) Benign prostatic hyperplasia; Translations: [Benign prostatic hyperplasia without lower urinary tract symptoms] 03-16-2019 Chronic Malaise and fatigue (20 sources) Asthenia; Translations: [Weakness] 08-31-2019 Episodic Mood disorders (20 sources) Depressive disorder; Translations: [Depression] Onset: 01-19-2014 03-22-2020 Chronic Noninfectious gastroenteritis (20 sources) Gastroenteritis; Translations: [Noninfective gastroenteritis and colitis, unspecified] 08-31-2019 Episodic Nutritional deficiencies (7 sources) Vitamin D deficiency; Translations: [Vitamin D deficiency, unspecified] Onset: 08-10-2014 03-22-2020 Chronic Other aftercare (2 sources) Other senior care (current) drug therapy; Translations: [Other director long term care (current) drug therapy] Onset: 07-01-2024 Episodic Other and unspecified benign neoplasm (1 source) History of polyp of colon; Translations: [Personal history of colonic polyps] Episodic Other circulatory disease (18 sources) H/O: hypertension; Translations: [Personal history of other diseases of the circulatory system] 11-16-2022 Episodic Other fractures (20 sources) Compression fracture of thoracic spine; Translations: [Wedge compression fracture of unspecified thoracic vertebra, initial encounter for closed fracture] 11-06-2016 Episodic Other gastrointestinal disorders (20 sources) Diarrhea; Translations: [Diarrhea, unspecified] 08-31-2019 Episodic Other injuries and conditions due to external causes (20 sources) Injury of hip region; Translations: [Unspecified injury of unspecified hip, initial encounter] 03-17-2020 Episodic Other injuries and conditions due to external causes (17 sources) Closed injury of head; Translations: [Unspecified injury of head, initial encounter] 12-31-2022 Episodic Other liver diseases (20 sources) Increased creatine kinase level; Translations: [Abnormal levels of other serum enzymes] 08-30-2019 Episodic Other lower respiratory disease (20 sources) Dyspnea; Translations: [Shortness of breath] Onset: 02-04-2017 03-22-2020 Episodic Other male genital disorders (18 sources) Hemorrhage of scrotum; Translations: [Vascular disorders of male genital organs] 11-16-2022 Chronic Other nervous system disorders (20 sources) Normal pressure hydrocephalus; Translations: [(Idiopathic) normal pressure hydrocephalus] 11-06-2016 Chronic Other nervous system disorders (20 sources) Tremor; Translations: [Tremor, unspecified] 06-27-2019 Episodic Other nervous system disorders (16 sources) Ataxia; Translations: [Ataxia, unspecified] 01-04-2023 Episodic Other nervous system disorders (2 sources) Ataxia, unspecified; Translations: [Lack of coordination] 01-07-2023 Episodic Other nervous system disorders (1 source) [...] Chronic Other nutritional; endocrine; and metabolic disorders (20 sources) Morbid obesity; Translations: [Morbid (severe) obesity due to excess calories] 08-11-2022 Chronic Other nutritional; endocrine; and metabolic disorders (1 source) Obesity, unspecified; Translations: [Obesity (BMI 30.0-34.9)] Onset: 01-08-2023 Chronic Other screening for suspected conditions (not mental disorders or infectious disease) (20 sources) Finding of other specified substances, not normally found in blood; Translations: [Serum sodium valproate above therapeutic range] Onset: 01-08-2023 01-04-2023 Episodic Peripheral and visceral atherosclerosis (6 sources) Peripheral vascular disease; Translations: [Peripheral vascular disease, unspecified] Onset: 02-21-2025 11-01-2024 Chronic Residual codes; unclassified (20 sources) Obstructive sleep apnea syndrome; Translations: [Obstructive sleep apnea (adult) (pediatric)] 08-11-2022 Chronic Residual codes; unclassified (20 sources) Sleep apnea; Translations: [Sleep apnea, unspecified] 07-11-2019 Chronic Residual codes; unclassified (20 sources) Daytime hypersomnia; Translations: [Hypersomnia, unspecified] 05-02-2018 Chronic Residual codes; unclassified (20 sources) Hypoxia; Translations: [Idiopathic sleep related nonobstructive alveolar hypoventilation] 09-14-2018 Chronic Residual codes; unclassified (5 sources) Bilateral lower limb edema; Translations: [Localized edema] 11-01-2024 Episodic Schizophrenia and other psychotic disorders (8 sources) Chronic schizoaffective schizophrenia; Translations: [Schizoaffective disorder, unspecified] Onset: 07-14-2013 03-22-2020 Chronic Sprains and strains (20 sources) Sprain of foot; Translations: [Unspecified sprain of left foot, initial encounter] 04-23-2014 Episodic Suicide and intentional self-inflicted injury (19 sources) Suicidal thoughts; Translations: [Suicidal ideations] 08-20-2022 Episodic Thyroid disorders (9 sources) Hypothyroidism; Translations: [Hypothyroidism, unspecified] Onset: 01-19-2014 03-22-2020 Chronic Past or Other Problems Problem Classification Problem Date Documented Da te Episodic/Chronic Cancer of colon (8 sources) History of malignant neoplasm of colon; Translations: [Personal history of other malignant neoplasm of large intestine] Onset: 02-07-2015 02-07-2015 Episodic Diabetes mellitus without complication (7 sources) Hyperglycemia; Translations: [Hyperglycemia, unspecified] Onset: 01-19-2014 01-19-2014 Episodic Nonspecific chest pain (7 sources) Atypical [...] (chronic) (peripheral)] Onset: 01-28-2016 01-28-2016 Episodic Other inflammatory condition of skin (1 source) Erythematous condition, unspecified; Translations: [Erythematous condition, unspecified] Onset: 11-03-2024 Episodic Other nervous system disorders (7 sources) Impairment of balance; Translations: [Other abnormalities of gait and mobility] Onset: 03-19-2015 03-19-2015 Episodic Phlebitis; thrombophlebitis and thromboembolism (7 sources) H/O: Deep vein thrombosis; Translations: [Personal history of other venous thrombosis and embolism] Onset: 02-24-2011 10-02-2020 Episodic Residual codes; unclassified (7 sources) Localized edema; Translations: [Localized edema] Onset: 02-04-2017 03-22-2020 Episodic Residual codes; unclassified (1 source) Edema, unspecified; Translations: [Edema, unspecified] Onset: 11-03-2024 Episodic Results Test Name Value Interpretation Reference Range Facility Basic Metabolic Profile (BMP )on 04-24-2025 BUN/CRE 20.2 RATIO High 10-20 [facility] Comment on above: Order Comment: 304.2 Performed By: #### L 501.5200, L500.2500 #### [facility] [address] [place], [address] Calcium [Mass/Vol] 9.1 mg/dL Normal 7.6-11.0 [facility] Comment on above: Order Comment: 304.2 Performed By: #### L 501.5200, L500.2500 #### [facility] [address] [place], [address] Chloride [Moles/Vol] 96 mmol/L Low 98-108 [facility] Comment on above: Order Comment: 304.2 Performed By: #### L 501.5200, L500.2500 #### [facility] [address] [place], [address] CO2 [Moles/Vol] 29.3 mmol/L Normal 21.0-32.0 [facility] Comment on above: Order Comment: 304.2 Performed By: #### L 501.5200, L500.2500 #### [facility] [address] [place], [address] Creatinine [Mass/Vol] 0.76 mg/dL Normal 0.70-1.20 [facility] Comment on above: Order Comment: 304.2 Performed By: #### L 501.5200, L500.2500 #### [facility] [address] [place], [address] GAP 12 Normal 5-15 [facility] Comment on above: Order Comment: 304.2 Performed By: #### L 501.5200, L500.2500 #### [facility] [address] [place], [address] GFR/1.73 sq M.predicted among non-blacks MDRD (S/P/Bld) [Vol rate/Area] 94 mL/min/{1.73_m2} Normal >60 [facility] Comment on above: Order Comment: 304.2 Result Comment: mL/m in/1.73m2 CKD-EPI Creatinine Equation (2020) Performed By: #### L 501.5200, L500.2500 #### [facility] [address] [place], [address] Glucose [Mass/Vol] 147 mg/dL High 70-99 [facility] Comment on above: Order Comment: 304.2 Performed By: #### L 501.5200, L500.2500 #### [facility] [address] [place], [address] Potassium [Moles/Vol] 3.8 mmol/L Normal 3.3-5.1 [facility] Comment on above: Order Comment: 304.2 Performed By: #### L 501.5200, L500.2500 #### [facility] [address] [place], [address] Sodium [Moles/Vol] 138 mmol/L Normal 133-145 [facility] Comment on above: Order Comment: 304.2 Performed By: #### L 501.5200, L500.2500 #### [facility] [address] [place], [address] Urea nitrogen [Mass/Vol] 15 mg/dL Normal 4-19 [facility] Comment on above: Order Comment: 304.2 Performed By: #### L 501.5200, L500.2500 #### [facility] [address] [place], [address] Magnesiumon 04-24-2025 Magnesium [Mass/Vol] 2.3 mg/dL High 1.5-2.2 [facility] Comment on above: Order Comment: 304.2 Performed By: #### L 501.5200, L500.2500 #### [facility] [address] [place], [address] Basic Metabolic Profile (BMP )on 04-03-2025 BUN/CRE 14.2 RATIO Normal 10-20 [facility] Comment on above: Order Comment: 304-2 Performed By: #### L 500.2500, L501.5200, L501.9520 #### [facility] [address] [place], [address] Calcium [Mass/Vol] 9.8 mg/dL Normal 7.6-11.0 [facility] Comment on above: Order Comment: 304-2 Performed By: #### L 500.2500, L501.5200, L501.9520 #### [facility] [address] [place], [address] Chloride [Moles/Vol] 96 mmol/L Low 98-108 [facility] Comment on above: Order Comment: 304-2 Performed By: #### L 500.2500, L501.5200, L501.9520 #### [facility] [address] [place], [address] CO2 [Moles/Vol] 24.9 mmol/L Normal 21.0-32.0 [facility] Comment on above: Order Comment: 304-2 Performed By: #### L 500.2500, L501.5200, L501.9520 #### [facility] [address] [place], [address] Creatinine [Mass/Vol] 0.84 mg/dL Normal 0.70-1.20 [facility] Comment on above: Order Comment: 304-2 Performed By: #### L 500.2500, L501.5200, L501.9520 #### [facility] [address] [place], [address] GAP 17 High 5-15 [facility] Comment on above: Order Comment: 304-2 Performed By: #### L 500.2500, L501.5200, L501.9520 #### [facility] [address] [place], [address] GFR/1.73 sq M.predicted among non-blacks MDRD (S/P/Bld) [Vol rate/Area] 91 mL/min/{1.73_m2} Normal >60 [facility] Comment on above: Order Comment: 304-2 Result Comment: mL/m in/1.73m2 CKD-EPI Creatinine Equation (2020) Performed By: #### L 500.2500, L501.5200, L501.9520 #### [facility] [address] [place], [address] Glucose [Mass/Vol] 229 mg/dL High 70-99 [facility] Comment on above: Order Comment: 304-2 Performed By: #### L 500.2500, L501.5200, L501.9520 #### [facility] [address] [place], [address] Potassium [Moles/Vol] 4.2 mmol/L Normal 3.3-5.1 [facility] Comment on above: Order Comment: 304-2 Result Comment: Hemo lysis present, Results??could be affected. ?? Performed By: #### L 500.2500, L501.5200, L501.9520 #### [facility] [address] [place], [address] Sodium [Moles/Vol] 137 mmol/L Normal 133-145 [facility] Comment on above: Order Comment: 304-2 Performed By: #### L 500.2500, L501.5200, L501.9520 #### [facility] [address] [place], [address] Urea nitrogen [Mass/Vol] 12 mg/dL Normal 4-19 [facility] Comment on above: Order Comment: 304-2 Performed By: #### L 500.2500, L501.5200, L501.9520 #### [facility] [address] [place], [address] CBC-Complete Blood Cnt No Di ffon 04-03-2025 Erythrocyte distribution width (RBC) [Ratio] 13.8 % Normal 11.6-14.6 [facility] Comment on above: Order Comment: 304-2 Performed By: #### L 500.2500, L501.5200, L501.9520 #### [facility] [address] [place], [address] Hematocrit (Bld) [Volume fraction] 44.7 % Normal 40-54 [facility] Comment on above: Order Comment: 304-2 Performed By: #### L 500.2500, L501.5200, L501.9520 #### [facility] [address] [place], [address] Hemoglobin (Bld) [Mass/Vol] 15.1 g/dL Normal 13.0-16.5 [facility] Comment on above: Order Comment: 304-2 Performed By: #### L 500.2500, L501.5200, L501.9520 #### [facility] [address] [place], [address] MCH (RBC) [Entitic mass] 32.4 pg High 27.0-32.0 [facility] Comment on above: Order Comment: 304-2 Performed By: #### L 500.2500, L501.5200, L501.9520 #### [facility] [address] [place], [address] MCHC (RBC) [Mass/Vol] 33.8 g/dL Normal 32-36 [facility] Comment on above: Order Comment: 304-2 Performed By: #### L 500.2500, L501.5200, L501.9520 #### [facility] [address] [place], [address] MCV (RBC) [Entitic vol] 95.9 fL High 80-94 [facility] Comment on above: Order Comment: 304-2 Performed By: #### L 500.2500, L501.5200, L501.9520 #### [facility] [address] [place], [address] Platelet mean volume (Bld) [Entitic vol] 9.5 fL Normal 6.2-12.0 [facility] Comment on above: Order Comment: 304-2 Performed By: #### L 500.2500, L501.5200, L501.9520 #### [facility] [address] [place], [address] Platelets (Bld) [#/Vol] 252 10*3/uL Normal 150-450 [facility] Comment on above: Order Comment: 304-2 Performed By: #### L 500.2500, L501.5200, L501.9520 #### [facility] [address] [place], [address] RBC (Bld) [#/Vol] 4.66 10*6/uL Normal 4.6-6.2 [facility] Comment on above: Order Comment: 304-2 Performed By: #### L 500.2500, L501.5200, L501.9520 #### [facility] [address] [place], [address] RDW SD 49.1 fl High 35.1-43.9 [facility] Comment on above: Order Comment: 304-2 Performed By: #### L 500.2500, L501.5200, L501.9520 #### [facility] [address] [place], [address] WBC (Bld) [#/Vol] 7.2 10*3/uL Normal 4.4-11.0 [facility] Comment on above: Order Comment: 304-2 Performed By: #### L 500.2500, L501.5200, L501.9520 #### [facility] [address] [place], [address] Magnesiumon 04-03-2025 Magnesium [Mass/Vol] 2.3 mg/dL High 1.5-2.2 [facility] Comment on above: Order Comment: 304-2 Performed By: #### L 500.2500, L501.5200, [id number] #### [facility] [address] [place], [address] Thyroid Stim Hormone (TSH)on 02-28-2025 TSH 4.330 uIU/mL High 0.300-4.20 0 [facility] Comment on above: Order Comment: 304-2 Performed By: #### L 500.2500, L501.5200, L501.9520 #### [facility] [address] [place], [address] Arterial study reportOrdered By: Eris Capps on 02-13-2025 Noninvasive arteriosclerosis study report [facility] [address] [place] [address] Lower Ext Art Exam w/o Exercis 02/13/25 0911 MR#: [id number] Acct: [id number] Name: ANJEL ROSS Rep #:[id number] : 1950 74 From: Eris Zepeda Attending Dr: PIO House Stat us: REG CLI Ordering Dr: Kourtney Farrar Date: Location: [facility] Sex: M C Admitted: Reason For Study Reason For Study: PVD Procedure A bilateral lower extremity continuous wave Doppler with analog waveform analysis,segmental pressures,and ankle brachial indexes without exercise. Performed with patient in wheelchair, unable to move to bed due to arriving with needing gaurav lift. Left Segmental Pressures Left brachial= 136mmHg. Left posterior tibial artery = 136mmHg. Left dorsalis pedis artery = 133mmHg. Left digit = 96 mmHg. The left dorsalis pedis waveforms are triphasic. The left posterior tibialartery waveforms are triphasic. Right Segmental Pressures Right brachial= 125mmHg. Right posterior tibial artery = 135mmHg. Right dorsalispedis artery = 178mmHg. Right digit = 95 mmHg. The right dorsalis pedis waveforms are triphasic. The right posterior tibial artery waveforms are triphasic. Indices The right ankle brachial index by the dorsalis pedis is 1.31. The right ankle brachial index by the posterior tibial artery is 0.99. The right digital-brachial index is 0.70. The left ankle brachial index by the dorsalis pedis is 0.98. The left ankle brachial index by the posterior tibial artery is 1.00. The left digital-brachial index is 0.71. VL/Lower Ext Art Exam w/o Exercis Interpretation Summary Right ASHLEY 1.31, normal. Doppler/PVR waveforms of the right leg normal at rest. 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 Left ASHLEY 1.0, normal. Doppler/PVR waveforms of the left leg normal at rest. 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 Ordering Physician: Kourtney Farrar Referring Physician: Avani Eduardo Performed By: Micheline Busby RVT 02/13/25 1057 Date _ Eris Capps MD CC: [facility]; Avani Eduardo MD ~ Date Dictated: 02/13/25910 Date Transcribed: 02/13/25 1057 [employer] Agent: Signed [facility] Work Phone: Lower Ext Art Exam w/o Exerc jerry 02-13-2025 Lower Ext Art Exam w/o Exercis [facility] [place] [address] Lower Ext Art Exam w/o Exercis 02/13/25910 MR#: [id number] Acct: [id number] Name: ANJEL ROSS Rep #: [id number] : 1950 74 From: Eris Capps MD Attending Dr: [facility] Status: REG CLI Ordering Dr: Kourtney Farrar Date: 02/13/25 Location: [facility] Sex: M C Admitted: Reason For Study Reason For Study: PVD Procedure A bilateral lower extremity continuous wave Doppler with analog waveform analysis,segmental pressures,and ankle brachial indexes without exercise. Performed with patient in wheelchair, unable to move to bed due to arriving with needing gaurav lift. Left Segmental Pressures Left brachial= 136mmHg. Left posterior tibial artery = 136mmHg. Left dorsalis pedis artery = 133mmHg. Left digit = 96 mmHg. The left dorsalis pedis waveforms are triphasic. The left posterior tibial artery waveforms are triphasic. Right Segmental Pressures Right brachial= 125mmHg. Right posterior tibial artery = 135mmHg. Right dorsalis pedis artery = 178mmHg. Right digit = 95 mmHg. The right dorsalis pedis waveforms are triphasic. The right posterior tibial artery waveforms are triphasic. Indices The right ankle brachial index by the dorsalis pedis is 1.31. The right ankle brachial index by the posterior tibial artery is 0.99. The right digital-brachial index is 0.70. The left ankle brachial index by the dorsalis pedis is 0.98. The left ankle brachial index by the posterior tibial artery is 1.00. The left digital-brachial index is 0.71. VL/Lower Ext Art Exam w/o Exercis Interpretation Summary Right ASHLEY 1.31, normal. Doppler/PVR waveforms of the right leg normal at rest. 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 Left ASHLEY 1.0, normal. Doppler/PVR waveforms of the left leg normal at rest. 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 Ordering Physician: Kourtney Farrar Referring Physician: Avani Eduardo Performed By: Micheline Busby RVT 02/13/25 105 Date Eris Capps MD CC: [facility]; Avani Eduardo MD Date Dictated: 02/13/25910 Date Transcribed: 02/13/251056 [employer] Agent: Signed Normal [facility] Anion gap in Serum or Plasma Ordered By: Avani Eduardo on 02-01-2025 Anion gap [Moles/Vol] 13 mmol/L - [facility] BUN/creatinine ratioOrdered By: Avani Eduardo on 02-01-2025 Urea nitrogen/Creatinine [Mass ratio] 16.2 mg/mg 07-23 [facility] Basic Metabolic Profile (BMP )on 02-01-2025 BUN/CRE 16.2 RATIO Normal 07-23 [facility] Comment on above: Order Comment: 304-2 Performed By: #### L 500.2500, L501.5200, L501.9520 #### [facility] [address] [place], [place], [address] Calcium [Mass/Vol] 8.4 mg/dL Normal 7.6-11.0 [facility] Comment on above: Order Comment: 304-2 Performed By: #### L 500.2500, L501.5200, L501.9520 #### [facility] [address] [place], [address] Chloride [Moles/Vol] 98 mmol/L Normal 98-108 [facility] Comment on above: Order Comment: 304-2 Performed By: #### L 500.2500, L501.5200, L501.9520 #### [facility] [address] [place], [address] CO2 [Moles/Vol] 25.5 mmol/L Normal 21.0-32.0 [facility] Comment on above: Order Comment: 304-2 Performed By: #### L 500.2500, L501.5200, L501.9520 #### [facility] [address] [place], [address] Creatinine [Mass/Vol] 0.64 mg/dL Low 0.70-1.20 [facility] Comment on above: Order Comment: 304-2 Performed By: #### L 500.2500, L501.5200, L501.9520 #### [facility] [address] [place], [address] GAP 13 Normal 5-15 [facility] Comment on above: Order Comment: 304-2 Performed By: #### L 500.2500, L501.5200, L501.9520 #### [facility] [address] [place], [address] GFR/1.73 sq M.predicted among non-blacks MDRD (S/P/Bld) [Vol rate/Area] 99 mL/min/{1.73_m2} Normal >60 [facility] Comment on above: Order Comment: 304-2 Result Comment: mL/m in/1.73m2 CKD-EPI Creatinine Equation (2020) Performed By: #### L 500.2500, L501.5200, L501.9520 #### [facility] [address] [place], [address] Glucose [Mass/Vol] 203 mg/dL High 70-99 [facility] Comment on above: Order Comment: 304-2 Performed By: #### L 500.2500, L501.5200, L501.9520 #### [facility] [address] [place], [address] Potassium [Moles/Vol] 3.5 mmol/L Normal 3.3-5.1 [facility] Comment on above: Order Comment: 304-2 Performed By: #### L 500.2500, L501.5200, L501.9520 #### [facility] [address] [place], [address] Sodium [Moles/Vol] 136 mmol/L Normal 133-145 [facility] Comment on above: Order Comment: 304-2 Performed By: #### L 500.2500, L501.5200, L501.9520 #### [facility] [address] [place], [address] Urea nitrogen [Mass/Vol] 10 mg/dL Normal 4-19 [facility] Comment on above: Order Comment: 304-2 Performed By: #### L 500.2500, L501.5200, L501.9520 #### [facility] [address] [place], [address] CBC-Complete Blood Cnt No Di ffon 02-01-2025 Erythrocyte distribution width (RBC) [Ratio] 13.2 % Normal 11.6-14.6 [facility] Comment on above: Order Comment: 304-2 Performed By: #### L 500.2500, L501.5200, L501.9520 #### [facility] [address] [place], [address] Hematocrit (Bld) [Volume fraction] 36.0 % Low 40-54 [facility] Comment on above: Order Comment: 304-2 Performed By: #### L 500.2500, L501.5200, L501.9520 #### [facility] [address] [place], [address] Hemoglobin (Bld) [Mass/Vol] 12.7 g/dL Low 13.0-16.5 [facility] Comment on above: Order Comment: 304-2 Performed By: #### L 500.2500, L501.5200, L501.9520 #### [facility] [address] [place], [address] MCH (RBC) [Entitic mass] 32.6 pg High 27.0-32.0 [facility] Comment on above: Order Comment: 304-2 Performed By: #### L 500.2500, L501.5200, L501.9520 #### [facility] [address] [place], [address] MCHC (RBC) [Mass/Vol] 35.3 g/dL Normal 32-36 [facility] Comment on above: Order Comment: 304-2 Performed By: #### L 500.2500, L501.5200, L501.9520 #### [facility] [address] [place], [address] MCV (RBC) [Entitic vol] 92.3 fL Normal 80-94 [facility] Comment on above: Order Comment: 304-2 Performed By: #### L 500.2500, L501.5200, L501.9520 #### [facility] [address] [place], [address] Platelet mean volume (Bld) [Entitic vol] 8.9 fL Normal 6.2-12.0 [facility] Comment on above: Order Comment: 304-2 Performed By: #### L 500.2500, L501.5200, L501.9520 #### [facility] [address] [place], [address] Platelets (Bld) [#/Vol] 158 10*3/uL Normal 150-450 [facility] Comment on above: Order Comment: 304-2 Performed By: #### L 500.2500, L501.5200, L501.9520 #### [facility] [address] [place], [address] RBC (Bld) [#/Vol] 3.90 10*6/uL Low 4.6-6.2 [facility] Comment on above: Order Comment: 304-2 Performed By: #### L 500.2500, L501.5200, L501.9520 #### [facility] [address] [place], [address] RDW SD 44.3 fl High 35.1-43.9 [facility] Comment on above: Order Comment: 304-2 Performed By: #### L 500.2500, L501.5200, L501.9520 #### [facility] [address] [place], [address] WBC (Bld) [#/Vol] 6.1 10*3/uL Normal 4.4-11.0 [facility] Comment on above: Order Comment: 304-2 Performed By: #### L 500.2500, L501.5200, L501.9520 #### [facility] [address] [place], [address] Carbon dioxide, total [Moles /volume] in Central venous bloodOrdered By: Avani Eduardo on 02-01-2025 CO2 [Moles/Vol] 25.5 mmol/L 21.0-32.0 [facility] Chloride assayOrdered By: Adreil Eduardo on 02-01-2025 Chloride [Moles/Vol] 98 mmol/L 98-108 [facility] Erythrocyte distribution wid th ratioOrdered By: Avani Eduardo on 02-01-2025 Erythrocyte distribution width (RBC) [Ratio] 13.2 % 11.6-14.6 [facility] Erythrocyte distribution wid th standard deviationOrdered By: Avani Eduardo on 02-01-2025 Erythrocyte distribution width (RBC) [Ratio] 44.3 fl High 35.1-43.9 [facility] Glomerular filtration rate ( GFR) estimation/1.73 sq m using serum, plasma, or whole bOrdered By: Avani Eduardo on 02-01-2025 GFR/1.73 sq M.predicted among non-blacks MDRD (S/P/Bld) [Vol rate/Area] 99 mL/min/{1.73_m2} >60 [facility] Comment on above: mL/min/1.73m2 CKD-EP I Creatinine Equation (2020) Hematocrit Auto (Bld) [Volum e fraction]Ordered By: Avani Eduardo on 02-01-2025 Hematocrit (Bld) [Volume fraction] 36.0 % Low 40-54 [facility] Hemoglobin measurementOrdere d By: Avani Eduardo on 02-01-2025 Hemoglobin (Bld) [Mass/Vol] 12.7 g/dL Low 13.0-16.5 [facility] MCV (mean corpuscular volume ) determinationOrdered By: Avani Eduardo on 02-01-2025 MCV (RBC) [Entitic vol] 92.3 fL 80-94 [facility] Magnesiumon 02-01-2025 Magnesium [Mass/Vol] 2.2 mg/dL Normal 1.5-2.2 [facility] Comment on above: Order Comment: 304-2 Performed By: #### L 500.2500, L501.5200, L501.9520 #### [facility] [address] [place] [address]. [place], [address] Magnesium measurement (mass/ volume)Ordered By: Avani Eduardo on 02-01-2025 Magnesium (Unsp spec) [Mass/Vol] 2.2 mg/dL 1.5-2.2 [facility] Mean corpuscular hemoglobin (MCH) determinationOrdered By: Avani Eduardo on 02-01-2025 MCH (RBC) [Entitic mass] 32.6 pg High 27.0-32.0 [facility] Mean corpuscular hemoglobin concentration (MCHC) determinationOrdered By: Avani Eduardo on 02-01-2025 MCHC (RBC) [Mass/Vol] 35.3 g/dL 32-36 [facility] Mean platelet volume determi nationOrdered By: Avani Eduardo on 02-01-2025 Platelet mean volume (Bld) [Entitic vol] 8.9 fL 6.2-12.0 [facility] Platelet countOrdered By: Adriel Eduardo on 02-01-2025 Platelets (Bld) [#/Vol] 158 10*3/uL 150-450 [facility] Potassium measurement (mass/ volume)Ordered By: Avani Eduardo on 02-01-2025 Potassium (Unsp spec) [Mass/Vol] 3.5 mmol/L 3.3-5.1 [facility] RBC Auto (Bld) [#/Vol]Ordere d By: Avani Eduardo on 02-01-2025 RBC (Bld) [#/Vol] 3.90 10*6/uL Low 4.6-6.2 [facility] Serum creatinine measurement (mass/volume)Ordered By: Avani Eduardo on 02-01-2025 Creatinine [Mass/Vol] 0.64 mg/dL Low 0.70-1.20 [facility] Serum glucose measurement (m ass/volume)Ordered By: Avani Eduardo on 02-01-2025 Glucose [Mass/Vol] 203 mg/dL High 70-99 [facility] Serum or plasma calcium minda urement (mass/volume)Ordered By: Avani Eduardo on 02-01-2025 Calcium [Mass/Vol] 8.4 mg/dL 7.6-11.0 [facility] Serum or plasma urea nitroge n measurement (mass/volume)Ordered By: Avani Eduardo on 02-01-2025 Urea nitrogen [Mass/Vol] 10 mg/dL 4-19 [facility] Sodium levelOrdered By: Emmanuel Eduardo on 02-01-2025 Sodium [Moles/Vol] 136 mmol/L 133-145 [facility] White blood cell (WBC) count Ordered By: Avani Eduardo on 02-01-2025 WBC (Bld) [#/Vol] 6.1 10*3/uL 4.4-11.0 [facility] MR/BMS.BVSon 01-31-2025 MR/BMS.BVS [facility] Surgery [address] [place] [address] OFFICE VISIT Date of Service: 01/31/25 MR#: [id number] Acct: [id number] Name: ANJEL ROSS Rep #: [id number] : 1950 Provider: [facility] Age/Sex: 74/M Location: [facility].BV[facility] Status: Signed Intake Vital Signs 01/15/23 11:23 01/31/25 11:23 Height 5 ft 3 in Respiration 16 Pulse 87 Pulse Source Monitor Temp 97.8 F Temp Source Temporal Pulse Oximetry (%) 96 Oxygen Delivery Method room air Intake Visit Reasons: 3-4 M FU Is patient in pain?: No Allergies aspirin Allergy (Verified 01/31/25 11:20) cant remember rxn nickel Allergy (Verified 01/31/25 11:20) Other oxcarbazepine (From Trileptal) Allergy (Verified 01/31/25 11:20) cant remember rxn Medications ???Medication ???Instructions ???Recorded ???Confirmed ???Type alendronate 70 mg tablet 70 mg PO LEON OSTEOPOROSIS 12/07/16 01/31/25 History allopurinol 100 mg tablet 100 mg PO QHS GOUT 12/07/16 History atorvastatin 40 mg tablet 40 mg PO QHS CHOLESTEROL 12/07/16 01/31/25 History clopidogrel 75 mg tablet 75 mg PO DAILY ANTIPLATELET 01/31/25 History finasteride 5 mg tablet 5 mg PO DAILY PROSTATE 12/07/16 History montelukast 10 mg tablet 10 mg PO QHS ALLERGIES 03/17/19 History pantoprazole 40 mg tablet,delayed 40 mg PO DAILY ACID REFLUX 01/31/25 History release cholecalciferol (vitamin D3) 50 2,000 unit PO DAILY SUPPLEMENT 05/2201/31/25 History mcg (2,000 unit) capsule magnesium oxide 400 mg (241.3 mg 400 mg PO QHS SUPPLEMENT 07/11/19 01/31/25 History magnesium) tablet potassium chloride 20 mEq 20 meq PO BID SUPPLEMENT 07/11/19 01/31/25 History tablet,extended release(part/cryst) ropinirole 1 mg tablet 1 mg PO TID SEIZURES 07/11/1901/04 History loratadine 10 mg capsule 10 mg PO QHS 07/15/20 01/31/25 His tory spironolactone 25 mg tablet 25 mg PO QODAY DIURETIC 07/15/20 0 01/31/25 History venlafaxine 150 mg 150 mg PO DAILY DEPRESSION 0 01/31/25 History capsule,extended release 24 hr valproic acid (as sodium salt) 250 1,000 mg PO TID 07/01/22 5 History mg/5 mL oral solution bumetanide 1 mg tablet 2 mg PO DAILY DIURETIC 01/04/23 History lactulose 20 gram/30 mL oral 20 g (30 mL) PO TID #3,000 mL 01/0201/31/25 Rx solution pregabalin 200 mg capsule 200 mg PO TID #9 caps 01/18/23 Rx docusate sodium 100 mg capsule 100 mg PO BID 11/01/24 01/31/25 Hi story (Colace) dulaglutide 3 mg/0.5 mL 3 mg subcut QWEEK 11/01/24 5 History subcutaneous pen injector (Trulicity) levetiracetam 750 mg tablet 1,500 mg PO BID seizures 11/01/24 01/31/25 History levothyroxine 50 mcg tablet 100 mcg PO DAILY THYROID 11/01/24 01/31/25 History melatonin 5 mg capsule mg PO 11/01/24 01/31/25 History olanzapine 5 mg disintegrating 7.5 mg PO QHS DEPRESSION 11/01/24 01/31/25 History tablet tamsulosin 0.4 mg capsule 0.4 mg PO QDAY 11/01/24 01/31/25 H istory Have you fallen in the past year?: No PFSH Medical History Weakness Hypothyroid Schizophrenia Wears glasses Loose, teeth Cancer Anxiety Gout Walker as ambulation aid Easy bruising Restless legs Epilepsy Gastric reflux Non-smoker Shortness of breath on exertion Leg cramps History of edema Cardiology follow-up encounter History of stress test History of echocardiogram Sleep apnea Pure hypercholesterolemia BPH (benign prostatic hyperplasia) History of seizure History of colon cancer Depression Hyperlipemia Seizure disorder BPH (benign prostatic hyperplasia) Benign essential HTN Surgical History History of cataract extraction History of right hip replacement History of cholecystectomy Family History Mother COPD (chronic obstructive pulmonary disease) CAD (coronary artery disease) Father Cancer lung Heart disease Myocardial infarction CAD (coronary artery disease) Aunt CAD (coronary artery disease) Myocardial infarction Social History household members: none housing: assisted living facility Smoking Status: Never smoker alcohol intake: never substance use type: does not use caffeine: Yes Type: carbonated beverages Number of servings: 3 HPI HPI HPI: ANJEL ROSS, is a 74 M who presents to the office today for follow-up of abnormal arterial duplex and BLE edema. Recall that in 10/2024 he'd had a bilateral lower extremity arterial duplex performed at [facility] reporting atherosclerotic (more content not included)... Normal [facility] Hemoglobin A1con 01-05-2025 HbA1c (Bld) [Mass fraction] 8.1 % Normal <=5.6 [facility] Comment on above: Order Comment: 304-2 Performed By: #### L 500.2500, L501.5200, L501.9520 #### [facility] [address] [place], [place], [id number] Hemoglobin A1c percentageOrd ered By: Avani Eduardo on 01-05-2025 HbA1c (Bld) [Mass fraction] 8.1 % >5.7 [facility] Serum or plasma valproate me asurement (mass/volume)Ordered By: Avani Eduardo on 01-03-2025 Valproate [Mass/Vol] 56 ug/mL 50-100 [facility] Comment on above: Valproic Acid concen trations >100 ug/mL are potentially toxic. Valproic Acid (Depakene) Lev chandu 01-03-2025 VALPROIC ACID 56 ug/mL Normal 50-100 [facility] Comment on above: Order Comment: 304.2 Result Comment: Valp roic Acid concentrations >100 ug/mL are potentially toxic. Performed By: #### L 501.8100 #### [facility] [address] [place], [address] Anion gap in Serum or Plasma Ordered By: Avani Eduardo on 01-02-2025 Anion gap [Moles/Vol] 17 mmol/L High 5-15 [facility] Automated blood erythrocyte countOrdered By: Avani Eduardo on 01-02-2025 RBC (Bld) [#/Vol] 4.61 10*6/uL Normal 4.6-6.2 [facility] Comment on above: Order Comment: 304-2 Performed By: #### L 500.2500, L501.5200, L501.9520 #### [facility] [address] [place], [address] Automated blood hematocrit ( percentage)Ordered By: Avani Eduardo on 01-02-2025 Hematocrit (Bld) [Volume fraction] 42.7 % Normal 40-54 [facility] Comment on above: Order Comment: 304-2 Performed By: #### L 500.2500, L501.5200, L501.9520 #### [facility] [address] [place], [address] BUN/creatinine ratioOrdered By: Avani Eduardo on 01-02-2025 Urea nitrogen/Creatinine [Mass ratio] 15.2 mg/mg 10-20 [facility] Basic Metabolic Profile (BMP )on 01-02-2025 BUN/CRE 15.2 RATIO Normal - [facility] Comment on above: Order Comment: 304-2 Performed By: #### L 500.2500, L501.5200, L501.9520 #### [facility] [address] [place], [address] GAP 17 High 5-15 [facility] Comment on above: Order Comment: 304-2 Performed By: #### L 500.2500, L501.5200, L501.9520 #### [facility] [address] [place], [address] CBC-Complete Blood Cnt No Di ffon 01-02-2025 RDW SD 46.2 fl High 35.1-43.9 [facility] Comment on above: Order Comment: 304-2 Performed By: #### L 500.2500, L501.5200, L501.9520 #### [facility] [address] [place], [address] Carbon dioxide, total [Moles /volume] in Central venous bloodOrdered By: Avani Eduardo on 01-02-2025 CO2 [Moles/Vol] 23.4 mmol/L Normal 21.0-32.0 [facility] Comment on above: Order Comment: 304-2 Performed By: #### L 500.2500, L501.5200, L501.9520 #### [facility] [address] [place], [address] Chloride assayOrdered By: Adriel Eduardo on 01-02-2025 Chloride [Moles/Vol] 97 mmol/L Low 98-108 [facility] Comment on above: Order Comment: 304-2 Performed By: #### L 500.2500, L501.5200, L501.9520 #### [facility] [address] [place], [address] Erythrocyte distribution wid th ratioOrdered By: Avani Eduardo on 01-02-2025 Erythrocyte distribution width (RBC) [Ratio] 13.6 % Normal 11.6-14.6 [facility] Comment on above: Order Comment: 304-2 Performed By: #### L 500.2500, L501.5200, L501.9520 #### [facility] [address] [place], [address] Erythrocyte distribution wid th standard deviationOrdered By: Avani Eduardo on 01-02-2025 Erythrocyte distribution width (RBC) [Entitic vol] 46.2 fL High 35.1-43.9 [facility] Erythrocyte distribution width (RBC) [Ratio] 46.2 fl High 35.1-43.9 [facility] GFR/1.73 sq M.predicted maria elena g non-blacks MDRD (S/P/Bld) [Vol rate/Area]Ordered By: Avani Eduardo on 01-02-2025 Estimated GFR (MDRD) Non-Af Amer 90 >60 [facility] Comment on above: mL/min/1.73m2 CKD-EP I Creatinine Equation (2020) Glomerular filtration rate ( GFR) estimation/1.73 sq m using serum, plasma, or whole bOrdered By: Avani Eduardo on 01-02-2025 GFR/1.73 sq M.predicted among non-blacks MDRD (S/P/Bld) [Vol rate/Area] 90 mL/min/{1.73_m2} Normal >60 [facility] Comment on above: mL/min/1.73m2 CKD-EP I Creatinine Equation (2020) Order Comment: 304-2 Result Comment: mL/m in/1.73m2 CKD-EPI Creatinine Equation (2020) Performed By: #### L 500.2500, L501.5200, L501.9520 #### [facility] [address] [place], [place], [id number] Hemoglobin measurementOrdere d By: Avani Eduardo on 01-02-2025 Hemoglobin (Bld) [Mass/Vol] 14.8 g/dL Normal 13.0-16.5 [facility] Comment on above: Order Comment: 304-2 Performed By: #### L 500.2500, L501.5200, L501.9520 #### [facility] [address] [place], [place], [id number] MCV (mean corpuscular volume ) determinationOrdered By: Avani Eduardo on 01-02-2025 MCV (RBC) [Entitic vol] 92.6 fL Normal 80-94 [facility] Comment on above: Order Comment: 304-2 Performed By: #### L 500.2500, L501.5200, L501.9520 #### [facility] [address] [place], [address] Magnesium measurement (mass/ volume)Ordered By: Avani Eduardo on 01-02-2025 Magnesium [Mass/Vol] 2.3 mg/dL High 1.5-2.2 [facility] Comment on above: Order Comment: 304-2 Performed By: #### L 500.2500, L501.5200, L501.9520 #### [facility] [address] [place], [address] Magnesium (Unsp spec) [Mass/Vol] 2.3 mg/dL High 1.5-2.2 [facility] Mean corpuscular hemoglobin (MCH) determinationOrdered By: Avani Eduardo on 01-02-2025 MCH (RBC) [Entitic mass] 32.1 pg High 27.0-32.0 [facility] Comment on above: Order Comment: 304-2 Performed By: #### L 500.2500, L501.5200, L501.9520 #### [facility] [address] [place], [address] Mean corpuscular hemoglobin concentration (MCHC) determinationOrdered By: Avani Eduardo on 01-02-2025 MCHC (RBC) [Mass/Vol] 34.7 g/dL Normal 32-36 [facility] Comment on above: Order Comment: 304-2 Performed By: #### L 500.2500, L501.5200, L501.9520 #### [facility] [address] [place], [address] Mean platelet volume determi nationOrdered By: Avani Eduardo on 01-02-2025 Platelet mean volume (Bld) [Entitic vol] 9.1 fL Normal 6.2-12.0 [facility] Comment on above: Order Comment: 304-2 Performed By: #### L 500.2500, L501.5200, L501.9520 #### [facility] [address] [place], [address] Platelet countOrdered By: Adriel Eduardo on 01-02-2025 Platelets (Bld) [#/Vol] 193 10*3/uL Normal 150-450 [facility] Comment on above: Order Comment: 304-2 Performed By: #### L 500.2500, L501.5200, L501.9520 #### [facility] [address] [place], [address] Potassium measurement (mass/ volume)Ordered By: Avani Eduardo on 01-02-2025 Potassium [Moles/Vol] 4.1 mmol/L Normal 3.3-5.1 [facility] Comment on above: Hemolysis present, R esults could be affected. Order Comment: 304-2 Result Comment: Hemo lysis present, Results??could be affected. ?? Performed By: #### L 500.2500, L501.5200, L501.9520 #### [facility] [address] [place], [address] Potassium (Unsp spec) [Mass/Vol] 4.1 mmol/L 3.3-5.1 [facility] Comment on above: Hemolysis present, R esults could be affected. Serum creatinine measurement (mass/volume)Ordered By: Avani Eduardo on 01-02-2025 Creatinine [Mass/Vol] 0.87 mg/dL Normal 0.70-1.20 [facility] Comment on above: Order Comment: 304-2 Performed By: #### L 500.2500, L501.5200, L501.9520 #### [facility] [address] [place], [address] Serum glucose measurement (m ass/volume)Ordered By: Avani Eduardo on 01-02-2025 Glucose [Mass/Vol] 223 mg/dL High 70-99 [facility] Comment on above: Order Comment: 304-2 Performed By: #### L 500.2500, L501.5200, L501.9520 #### [facility] [address] [place], [address] Serum or plasma calcium minda urement (mass/volume)Ordered By: Avani Eduardo on 01-02-2025 Calcium [Mass/Vol] 9.7 mg/dL Normal 7.6-11.0 [facility] Comment on above: Order Comment: 304-2 Performed By: #### L 500.2500, L501.5200, L501.9520 #### [facility] [address] [place], [address] Serum or plasma urea nitroge n measurement (mass/volume)Ordered By: Avani Eduardo on 01-02-2025 Urea nitrogen [Mass/Vol] 13 mg/dL Normal 4-19 [facility] Comment on above: Order Comment: 304-2 Performed By: #### L 500.2500, L501.5200, L501.9520 #### [facility] [address] [place], [address] Sodium levelOrdered By: Emmanuel Eduardo on 01-02-2025 Sodium [Moles/Vol] 138 mmol/L Normal 133-145 [facility] Comment on above: Order Comment: 304-2 Performed By: #### L 500.2500, L501.5200, L501.9520 #### [facility] [address] [place], [address] White blood cell (WBC) count Ordered By: Avani Eduardo on 01-02-2025 WBC (Bld) [#/Vol] 9.9 10*3/uL Normal 4.4-11.0 [facility] Comment on above: Order Comment: 304-2 Performed By: #### L 500.2500, L501.5200, L501.9520 #### [facility] [address] [place], [place], [address] Calculated very low density lipoprotein (VLDL) cholesterol measurementOrdered By: Avani Eduardo on 12-06-2024 Calculated very low density lipoprotein (VLDL) cholesterol measurement 49 mg/dL High 5-40 [facility] VLDL Cholesterol 49 mg/dL High 5-40 [facility] LDL calc ser/plasOrdered By: Avani Eduardo on 12-06-2024 Cholesterol in LDL [Mass/Vol] 61 mg/dL [facility] Comment on above: Kxsyteykkp=821-104 m g/dL & Higher Dpol=910 mg/dL or greater LDL Cholesterol, Calculated 61 mg/dL [facility] Comment on above: Kymvirjbbb=732-089 m g/dL & Higher Hanf=028 mg/dL or greater Lipid Profileon 12-06-2024 CHOL:HDL 4.46 Normal [facility] Comment on above: Order Comment: 304-2 Performed By: #### L 500.2500, L501.5200, L501.9520 #### [facility] [address] [place], [place], [id number] Cholesterol [Mass/Vol] 141 mg/dL Normal <=200 [facility] Comment on above: Order Comment: 304-2 Result Comment: Chol esterol level, Desirable <200 mg/dL Borderline high cholesterol 200-239 mg/dL High cholesterol >=240 mg/dL Recommendations of the NCEP Adult Treatment Panel for the following risk-cutoff thresholds for the [place] population. Performed By: #### L 500.2500, L501.5200, L501.9520 #### [facility] [address] [place], [place], [id number] Cholesterol in HDL [Mass/Vol] 32 mg/dL Low [facility] Comment on above: Order Comment: 304-2 Result Comment: Luzmaria onal Cholesterol Education Program (NCEP) guidelines: <40 mg/dL: Low HDL-cholesterol (major risk factor for CHD) >= 60 mg/dL: High HDL-cholesterol (negative risk factor for CHD) HDL-cholesterol is affected by a number of factors, e.g. smoking, exercise, hormones, sex and age. Performed By: #### L 500.2500, L501.5200, L501.9520 #### [facility] [address] [place], [address] Cholesterol in LDL [Mass/Vol] 61 mg/dL Normal [facility] Comment on above: Order Comment: 304-2 Result Comment: Bord uaqrhd=632-159 mg/dL Higher Qafa=580 mg/dL or greater Performed By: #### L 500.2500, L501.5200, L501.9520 #### [facility] [address] [place], [address] Cholesterol in VLDL [Mass/Vol] 49 mg/dL High 5-40 [facility] Comment on above: Order Comment: 304-2 Performed By: #### L 500.2500, L501.5200, L501.9520 #### [facility] [address] [place], [address] Triglyceride [Mass/Vol] 244 mg/dL High [facility] Comment on above: Order Comment: 304-2 Result Comment: The drugs N-Acetylcysteine and Metamizole may falsely depress this assay. Normal range: <150 mg/dL Borderline High: 150-199 mg/dL High: 200-499 mg/dL Very High: >500 mg/dL Performed By: #### L 500.2500, L501.5200, L501.9520 #### [facility] [address] [place], [address] Screening total cholesterol/ high density lipoprotein (HDL) cholesterol ratioOrdered By: Avani Eduardo on 12-06-2024 Cholesterol.total/Chol esterol in HDL [Mass ratio] 4.46 {ratio} [facility] Serum or plasma cholesterol in HDL measurement (mass/volume)Ordered By: Avani Eduardo on 12-06-2024 Cholesterol in HDL [Mass/Vol] 32 mg/dL Low >40 [facility] Comment on above: National Cholesterol Education Program (NCEP) guidelines:<40 mg/dL: Low HDL-cholesterol (major risk factor for CHD)>= 60 mg/dL: High HDL-cholesterol (negative risk factor for CHD)HDL-cholesterol is affected by a number of factors, e.g. smoking, exercise, hormones, sex and age. Serum or plasma cholesterol measurement (mass/volume)Ordered By: Avani Eduardo on 12-06-2024 Cholesterol [Mass/Vol] 141 mg/dL <201 [facility] Comment on above: Cholesterol level, D esirable <200 mg/dLBorderline high cholesterol 200-239 mg/dLHigh cholesterol >=240 mg/dLRecommendations of the NCEP Adult Treatment Panel for the following risk-cutoff thresholds for the [place] population. Triglycerides measurementOrd ered By: Avani Eduardo on 12-06-2024 Triglyceride [Mass/Vol] 244 mg/dL High <199 [facility] Comment on above: The drugs N-Acetylcy steine and Metamizole may falsely depress this assay. Normal range: <150 mg/dLBorderline High: 150-199 mg/dLHigh: 200-499 mg/dLVery High: >500 mg/dL MR/BMSDontae 11-01-2024 MR/BMS.DENIA [facility] [address] [place] [address] OFFICE VISIT Date of Service: 11/01/24 MR#: [id number] Acct: [id number] Name: ANJEL ROSS Rep #: [id number] 2 : 1950 Provider: [facility] Age/Sex: 74/M Location: [facility] Status: Signed Intake Vital Signs 01/15/23 11:23 11/01/24 10:46 Height 5 ft 3 in BP 134/73 H Blood Pressure Location Rt brachial Position Sitting Respiration 16 Pulse 74 Pulse Source Monitor Temp 97.7 F L Temp Source Temporal Pulse Oximetry (%) 95 Oxygen Delivery Method room air Intake Visit Reasons: Doppler results Is patient in pain?: No Allergies aspirin Allergy (Verified 11/01/24 10:47) cant remember rxn nickel Allergy (Verified 11/01/24 10:47) Other oxcarbazepine (From Trileptal) Allergy (Verified 11/01/24 10:47) cant remember rxn Medications ???Medication ???Instructions ???Recorded ???Confirmed ???Type alendronate 70 mg tablet 70 mg PO LEON OSTEOPOROSIS 12/07/16 11/01/24 History allopurinol 100 mg tablet 100 mg PO QHS GOUT 12/07/16 11/01/24 History atorvastatin 40 mg tablet 40 mg PO QHS CHOLESTEROL 12/07/16 11/01/24 History clopidogrel 75 mg tablet 75 mg PO DAILY ANTIPLATELET 12/07/16 11/01/24 History finasteride 5 mg tablet 5 mg PO DAILY PROSTATE 12/07/16 11/01/24 History montelukast 10 mg tablet 10 mg PO QHS ALLERGIES 03/17/19 11/01/24 History pantoprazole 40 mg tablet,delayed 40 mg PO DAILY ACID REFLUX 03/17/19 11/01/24 History release cholecalciferol (vitamin D3) 50 2,000 unit PO DAILY SUPPLEMENT 07/11/19 11/01/24 History mcg (2,000 unit) capsule magnesium oxide 400 mg (241.3 mg 400 mg PO QHS SUPPLEMENT 07/11/19 11/01/24 History magnesium) tablet potassium chloride 20 mEq 20 meq PO BID SUPPLEMENT 07/11/19 11/01/24 History tablet,extended release(part/cryst) ropinirole 1 mg tablet 1 mg PO TID SEIZURES 07/11/19 11/01/24 History loratadine 10 mg capsule 10 mg PO QHS 07/15/20 11/01/24 History spironolactone 25 mg tablet 25 mg PO QODAY DIURETIC 07/15/20 11/01/24 History venlafaxine 150 mg 150 mg PO DAILY DEPRESSION 07/15/20 11/01/24 History capsule,extended release 24 hr valproic acid (as sodium salt) 250 1,000 mg PO TID 07/01/22 11/01/24 History mg/5 mL oral solution bumetanide 1 mg tablet 2 mg PO DAILY DIURETIC 01/04/23 11/01/24 History lactulose 20 gram/30 mL oral 20 g (30 mL) PO TID #3,000 mL 01/18/23 11/01/24 Rx solution pregabalin 200 mg capsule 200 mg PO TID #9 caps 01/18/23 11/01/24 Rx docusate sodium 100 mg capsule 100 mg PO BID 11/01/24 11/01/24 History (Colace) dulaglutide 3 mg/0.5 mL 3 mg subcut QWEEK 11/01/24 11/01/24 History subcutaneous pen injector (Trulicity) levetiracetam 750 mg tablet 1,500 mg PO BID seizures 11/01/24 11/01/24 History levothyroxine 50 mcg tablet 100 mcg PO DAILY THYROID 11/01/24 11/01/24 History melatonin 5 mg capsule mg PO 11/01/24 11/01/24 History olanzapine 5 mg disintegrating 7.5 mg PO QHS DEPRESSION 11/01/24 11/01/24 History tablet tamsulosin 0.4 mg capsule 0.4 mg PO QDAY 11/01/24 11/01/24 History Have you fallen in the past year?: Yes [facility] Medical History Weakness Hypothyroid Schizophrenia Wears glasses Loose, teeth Cancer Anxiety Gout Walker as ambulation aid Easy bruising Restless legs Epilepsy Gastric reflux Non-smoker Shortness of breath on exertion Leg cramps History of edema Cardiology follow-up encounter History of stress test History of echocardiogram Sleep apnea Pure hypercholesterolemia BPH (benign prostatic hyperplasia) History of seizure History of colon cancer Depression Hyperlipemia Seizure disorder BPH (benign prostatic hyperplasia) Benign essential HTN Surgical History History of cataract extraction History of right hip replacement History of cholecystectomy Family History Mother COPD (chronic obstructive pulmonary disease) CAD (coronary artery disease) Father Cancer lung Heart disease Myocardial infarction CAD (coronary artery disease) Aunt CAD (coronary artery disease) Myocardial infarction Social History household members: none housing: assisted living facility Smoking Status: Never smoker alcohol intake: never substance use type: does not use caffeine: Yes Type: carbonated beverages Number of servings: 3 HPI HPI HPI: ANJEL ROSS, is a 74 M who presents to the office today as referred from [facility]. The only records received from [facility] were a bilateral lower extremity arterial duplex performed [facility] (more content not included)... Normal [facility] Basic Metabolic Profile (BMP )on 10-05-2024 BUN/CRE 18.0 RATIO Normal 10-20 [facility] Comment on above: Order Comment: 304-2 Performed By: #### L 500.2500, L501.5200, L501.9520 #### [facility] [address] [place], [address] CA,Total 8.6 mg/dL Normal 8.5-10.1 [facility] Comment on above: Order Comment: 304-2 Performed By: #### L 500.2500, L501.5200, L501.9520 #### [facility] [address] [place], [address] Chloride [Moles/Vol] 102 mmol/L Normal 98-107 [facility] Comment on above: Order Comment: 304-2 Performed By: #### L 500.2500, L501.5200, L501.9520 #### [facility] [address] [place], [address] CO2 [Moles/Vol] 32.0 mmol/L Normal 21.0-32.0 [facility] Comment on above: Order Comment: 304-2 Performed By: #### L 500.2500, L501.5200, L501.9520 #### [facility] [address] [place], [address] Creatinine [Mass/Vol] 0.61 mg/dL Low 0.70-1.30 [facility] Comment on above: Order Comment: 304-2 Result Comment: The validity of the calculated GFR GFRAA in patients over 70 years has not been determined. Clinical correlation is essential. Performed By: #### L 500.2500, L501.5200, L501.9520 #### [facility] [address] [place], [address] EST GFR - AA 166 mL/min Normal >60 [facility] Comment on above: Order Comment: 304-2 Result Comment: Afri can Mongolian GFR Calc Performed By: #### L 500.2500, L501.5200, L501.9520 #### [facility] [address] [place], [address] GAP 6 Normal 5-15 [facility] Comment on above: Order Comment: 304-2 Performed By: #### L 500.2500, L501.5200, L501.9520 #### [facility] [address] [place], [address] GFR/1.73 sq M.predicted among non-blacks MDRD (S/P/Bld) [Vol rate/Area] 137 mL/min/{1.73_m2} Normal >60 [facility] Comment on above: Order Comment: 304-2 Result Comment: Non- GFR Calc Performed By: #### L 500.2500, L501.5200, L501.9520 #### [facility] [address] [place], [address] Glucose [Mass/Vol] 176 mg/dL High 74-106 [facility] Comment on above: Order Comment: 304-2 Result Comment: Fast ing Glucose result greater than or equal to 126 mg/dL suggests DIABETES MELLITUS per A.D.A. criteria. Performed By: #### L 500.2500, L501.5200, L501.9520 #### [facility] [address] [place], [address] Potassium [Moles/Vol] 3.4 mmol/L Low 3.5-5.1 [facility] Comment on above: Order Comment: 304-2 Performed By: #### L 500.2500, L501.5200, L501.9520 #### [facility] [address] [place], [address] Sodium [Moles/Vol] 140 mmol/L Normal 136-145 [facility] Comment on above: Order Comment: 304-2 Performed By: #### L 500.2500, L501.5200, L501.9520 #### [facility] [address] [place], [place], [address] Urea nitrogen [Mass/Vol] 11 mg/dL Normal 7-18 [facility] Comment on above: Order Comment: 304-2 Performed By: #### L 500.2500, L501.5200, L501.9520 #### [facility] [address] [place], [address] Blood urea nitrogen (BUN)/cr eatinine ratioOrdered By: Avani Eduardo on 10-05-2024 Urea nitrogen/Creatinine [Mass ratio] 18.0 mg/mg 10-20 [facility] Carbon dioxide measurementOr dered By: Avani Eduardo on 10-05-2024 CO2 [Moles/Vol] 32.0 mmol/L 21.0-32.0 [facility] Chloride measurementOrdered By: Avani Eduardo on 10-05-2024 Chloride [Moles/Vol] 102 mmol/L 98-107 [facility] Estimated glomerular filtrat ion rate (GFR) AmericanOrdered By: Avani Eduardo on 10-05-2024 Estimated GFR (MDRD) Amer 166 mL/min >60 [facility] Comment on above: GFR Calc Glomerular filtration rate ( GFR) estimationOrdered By: Avani Eduardo on 10-05-2024 Estimated GFR (MDRD) Non-Af Amer 137 mL/min >60 [facility] Comment on above: Non- GFR Calc Glucose measurementOrdered B y: Avani Eduardo on 10-05-2024 Glucose [Mass/Vol] 176 mg/dL High 74-106 [facility] Comment on above: Fasting Glucose resu lt greater than or equal to 126 mg/dL suggests DIABETES MELLITUS per A.D.A. criteria. Magnesiumon 10-05-2024 Magnesium [Mass/Vol] 2.3 mg/dL Normal 1.6-2.6 [facility] Comment on above: Order Comment: 304-2 Performed By: #### L 500.2500, L501.5200, L501.9520 #### [facility] [address] [place], [address] Magnesium measurementOrdered By: Avani Eduardo on 10-05-2024 Magnesium [Mass/Vol] 2.3 mg/dL 1.6-2.6 [facility] Potassium measurementOrdered By: Avani Eduardo on 10-05-2024 Potassium [Moles/Vol] 3.4 mmol/L Low 3.5-5.1 [facility] Serum anion gap measurementO rdered By: Avani Eduardo on 10-05-2024 Anion gap [Moles/Vol] 6 mmol/L 5-15 [facility] Serum or plasma calcium minda urement (mass/volume)Ordered By: Avani Eduardo on 10-05-2024 Calcium [Mass/Vol] 8.6 mg/dL 8.5-10.1 [facility] Serum or plasma creatinine m easurement (mass/volume)Ordered By: Avani Eduardo on 10-05-2024 Creatinine [Mass/Vol] 0.61 mg/dL Low 0.70-1.30 [facility] Comment on above: The validity of the calculated GFR & GFRAA in patients over 70 years has not been determined. Clinical correlation is essential. Serum or plasma urea nitroge n measurement (mass/volume)Ordered By: Avani Eduardo on 10-05-2024 Urea nitrogen [Mass/Vol] 11 mg/dL 7-18 [facility] Sodium levelOrdered By: Emmanuel Eduardo on 10-05-2024 Sodium [Moles/Vol] 140 mmol/L 136-145 [facility] TSH QnOrdered By: Avani smith on 10-05-2024 Thyroid Stimulating Hormone (TSH) 1.740 uIU/mL 0.358-3.74 0 [facility] Thyroid Stim Hormone (TSH)on 10-05-2024 TSH 1.740 uIU/mL Normal 0.358-3.74 0 [facility] Comment on above: Order Comment: 304-2 Performed By: #### L 500.2500, L501.5200, L501.9568 #### [facility] [address] [place], [address] Absolute neutrophil countOrd ered By: Avani Eduardo on 09-29-2024 Neutrophils (Bld) [#/Vol] 3.1 10*3/uL 2.0-7.7 [facility] Automated blood erythrocyte countOrdered By: Avani Eduardo on 09-29-2024 RBC (Bld) [#/Vol] 4.23 10*6/uL Low 4.6-6.2 [facility] Comment on above: Performed By: #### L 100.0100, L501.6710 #### [facility] [address] [place], [address] Automated blood hematocrit ( percentage)Ordered By: Avani Eduardo on 09-29-2024 Hematocrit (Bld) [Volume fraction] 39.4 % Low 40-54 [facility] Comment on above: Performed By: #### L 100.0100, L501.6710 #### [facility] [address] [place], [address] Automated lymphocyte count a s percentage of total leukocytesOrdered By: Avani Eduardo on 09-29-2024 Lymphocytes/100 WBC (Bld) 38.9 % Normal 19-41 [facility] Comment on above: Performed By: #### L 100.0100, L501.6710 #### [facility] [address] [place], [address] Basophil percentageOrdered B y: Avani Eduardo on 09-29-2024 Basophils/100 WBC (Bld) 0.8 % Normal 0-1 [facility] Comment on above: Performed By: #### L 100.0100, L501.6710 #### [facility] [address] [place], [address] C-reactive protein measureme nt by high sensitivity methodOrdered By: Avani Eduardo on 09-29-2024 C-Reactive Protein Extended Range 3.29 mg/L High 0.0-3.0 [facility] Comment on above: C-Reactive Protein ( CRP) provides useful information for thediagnosis, therapy and monitoring of inflammatory processesand associated diseases. For the evaluation of Relative Riskfor Cardiovascular Disease, a High Sensitivity CRP (HSCRP)should be ordered. CBC W/Diff, Automatedon 12- Absolute Lymph 2.76 X10 3/uL Normal 0.83-4.51 [facility] Comment on above: Performed By: #### L 100.0100, L501.6710 #### [facility] [address] [place], [address] Absolute Neut 3.1 X10 3/uL Normal 2.0-7.7 [facility] Comment on above: Performed By: #### L 100.0100, L501.6710 #### [facility] [address] [place], [address] IG% 0.600 Normal 0.0-0.9 [facility] Comment on above: Result Comment: IG% - Immature Granulocytes (promyelocytes, myelocytes and metamyelocytes) > 1% indicates that a LEFT SHIFT is Present. Performed By: #### L 100.0100, L501.6710 #### [facility] [address] [place], [address] Nucleated RBC (Bld) [#/Vol] 0 10*3/uL Normal 0-5 [facility] Comment on above: Performed By: #### L 100.0100, L501.6710 #### [facility] [address] [place], [address] RDW SD 45.4 fl High 35.1-43.9 [facility] Comment on above: Performed By: #### L 100.0100, L501.6710 #### [facility] [address] [place], [address] CRPon 09-29-2024 C-REACTIVE PROT 3.29 mg/L High 0.0-3.0 [facility] Comment on above: Result Comment: C-Re active Protein (CRP) provides useful information for the diagnosis, therapy and monitoring of inflammatory processes and associated diseases. For the evaluation of Relative Risk for Cardiovascular Disease, a High Sensitivity CRP (HSCRP) should be ordered. Performed By: #### L 100.0100, L501.6710 #### [facility] [address] [place], [address] Eosinophil percentageOrdered By: Avani Eduardo on 09-29-2024 Eosinophils/100 WBC (Bld) 2.4 % Normal 0-5 [facility] Comment on above: Performed By: #### L 100.0100, L501.6710 #### [facility] [address] [place], [address] Erythrocyte distribution wid th ratioOrdered By: Avani Eduardo on 09-29-2024 Erythrocyte distribution width (RBC) [Ratio] 13.4 % Normal 11.6-14.6 [facility] Comment on above: Performed By: #### L 100.0100, L501.6710 #### [facility] [address] [place], [address] Erythrocyte distribution wid th standard deviationOrdered By: Avani Eduardo on 09-29-2024 Erythrocyte distribution width (RBC) [Entitic vol] 45.4 fL High 35.1-43.9 [facility] Hemoglobin measurementOrdere d By: Avani Eduardo on 09-29-2024 Hemoglobin (Bld) [Mass/Vol] 13.1 g/dL Normal 13.0-16.5 [facility] Comment on above: Performed By: #### L 100.0100, L501.6710 #### [facility] [address] [place], [address] Immature granulocytes/100 WB C Auto (Bld)Ordered By: Avani Eduardo on 09-29-2024 Immature granulocytes/100 WBC (Bld) 0.600 % 0.0-0.9 [facility] Comment on above: IG% - Immature Granu locytes (promyelocytes, myelocytes and metamyelocytes) > 1% indicates that a LEFT SHIFT is Present. Lymphocytes Auto (Unsp spec) [#/Vol]Ordered By: Avani Eduardo on 09-29-2024 Lymphocytes (Bld) [#/Vol] 2.76 10*3/uL 0.83-4.51 [facility] MCV (mean corpuscular volume ) determinationOrdered By: Avani Eduardo on 09-29-2024 MCV (RBC) [Entitic vol] 93.1 fL Normal 80-94 [facility] Comment on above: Performed By: #### L 100.0100, L501.6710 #### [facility] [address] [place], [address] Mean corpuscular hemoglobin (MCH) determinationOrdered By: Avani Eduardo on 09-29-2024 MCH (RBC) [Entitic mass] 31.0 pg Normal 27.0-32.0 [facility] Comment on above: Performed By: #### L 100.0100, L501.6710 #### [facility] [address] [place], [address] Mean corpuscular hemoglobin concentration (MCHC) determinationOrdered By: Avani Eduardo on 09-29-2024 MCHC (RBC) [Mass/Vol] 33.2 g/dL Normal 32-36 [facility] Comment on above: Performed By: #### L 100.0100, L501.6710 #### [facility] [address] [place], [address] Mean platelet volume determi nationOrdered By: Avani Eduardo on 09-29-2024 Platelet mean volume (Bld) [Entitic vol] 9.4 fL Normal 6.2-12.0 [facility] Comment on above: Performed By: #### L 100.0100, L501.6710 #### [facility] [address] [place], [address] Monocyte percentageOrdered B y: Avani Eduardo on 09-29-2024 Monocytes/100 WBC (Bld) 14.1 % High 0-10 [facility] Comment on above: Performed By: #### L 100.0100, L501.6710 #### [facility] [address] [place], [address] Neutrophil percentageOrdered By: Avani Eduardo on 09-29-2024 Neutrophils/100 WBC (Bld) 43.2 % Low 47-70 [facility] Comment on above: Performed By: #### L 100.0100, L501.6710 #### [facility] [facility] [address] [place], [address] Nucleated red blood cell per centageOrdered By: Avani Eduardo on 09-29-2024 Nucleated RBC/100 WBC (Bld) [Ratio] 0 % 0-5 [facility] Platelet countOrdered By: Adriel Eduardo on 09-29-2024 Platelets (Bld) [#/Vol] 203 10*3/uL Normal 150-450 [facility] Comment on above: Performed By: #### L 100.0100, L501.6710 #### [facility] [address] [place], [address] White blood cell (WBC) count Ordered By: Avani Eduardo on 09-29-2024 WBC (Bld) [#/Vol] 7.1 10*3/uL Normal 4.4-11.0 [facility] Comment on above: Performed By: #### L 100.0100, [id number] #### [facility] [address] [place], [address] Thyroid Stim Hormone (TSH)on 08-01-2024 TSH 6.050 uIU/mL High 0.358-3.74 0 [facility] Comment on above: Order Comment: 304-2 Performed By: #### L 500.2500, L501.5200, [id number] #### [facility] [address] [place], [address] Hemoglobin A1con 06-28-2024 HbA1c (Bld) [Mass fraction] 7.6 % High 3.8-5.6 [facility] Comment on above: Order Comment: 304-2 Result Comment: Norm al < 5.7 % Prediabetic 5.7 - 6.4 % Diabetic >or= 6.5 % Please note range changes. Performed By: #### L 500.2500, L501.5200, [id number] #### [facility] [address] [place], [address] Valproic Acid (Depakene) Lev chandu 06-12-2024 VALPROIC ACID 38 ug/mL Low 50-100 [facility] Comment on above: Order Comment: 304-2 Performed By: #### L 500.2500, L501.5200, [id number] #### [facility] [address] [place], [address] Microalbumin,Random Urineon 05-03-2024 MICROALBUMIN,UR 18.5 mg/L Normal NO RANGE EST. [facility] Comment on above: Performed By: #### L 500.2500, L501.5200, [id number] #### [facility] [address] [place], [address] Urinalysis, Routine (Dipstic k)on 05-03-2024 BILIRUBIN URINE Negative Normal Negative [facility] Comment on above: Order Comment: 304-2 Performed By: #### L 500.2500, L501.5200, [id number] #### [facility] [address] [place], [address] Clarity (U) Sl. Cloudy Normal Clear [facility] Comment on above: Order Comment: 304-2 Performed By: #### L 500.2500, L501.5200, [id number] #### [facility] [address] [place], [address] Color (U) Yellow Normal Yellow [facility] Comment on above: Order Comment: 304-2 Performed By: #### L 500.2500, L501.5200, [id number] #### [facility] [address] [place], [address] GLUCOSE, UR 250 mg/dl Abnormal Normal [facility] Comment on above: Order Comment: 304-2 Performed By: #### L 500.2500, L501.5200, [id number] #### [facility] [address] [place], [address] KETONE UR 5 mg/dl Abnormal Negative [facility] Comment on above: Order Comment: 304-2 Performed By: #### L 500.2500, [id number], [id number] #### [facility] [address] [place], [address] LEUK ESTERASE 500 /ul Abnormal Negative [facility] Comment on above: Order Comment: 304-2 Performed By: #### L 500.2500, L501.5200, [id number] #### [facility] [address] [place], [address] Nitrite Ql (U) Negative Normal Negative [facility] Comment on above: Order Comment: 304-2 Performed By: #### L 500.2500, L501.5200, [id number] #### [facility] [address] [place], [address] OCCULT BLOOD-UR 25 /ul Abnormal Negative [facility] Comment on above: Order Comment: 304-2 Performed By: #### L 500.2500, L501.5200, [id number] #### [facility] [address] [place], [address] pH UR 8.0 Normal 5.0 - 8.0 [facility] Comment on above: Order Comment: 304-2 Performed By: #### L 500.2500, [id number], [id number] #### [facility] [address] [place], [address] PROT DIPSTX 15 mg/dl Abnormal Negative [facility] Comment on above: Order Comment: 304-2 Performed By: #### L 500.2500, [id number], [id number] #### [facility] [address] [place], [address] SP.GR. DIPSTX 1.015 Normal 1.002-1.03 0 [facility] Comment on above: Order Comment: 304-2 Performed By: #### L 500.2500, [id number], [id number] #### [facility] [address] [place], [address] UROBILI Normal Normal Normal [facility] Comment on above: Order Comment: 304-2 Performed By: #### L 500.2500, [id number], [id number] #### [facility] [address] [place], [address] Hemoglobin A1con 05-02-2024 HbA1c (Bld) [Mass fraction] 10.4 % High 3.8-5.6 [facility] Comment on above: Result Comment: Norm al < 5.7 % Prediabetic 5.7 - 6.4 % Diabetic >or= 6.5 % Please note range changes. Performed By: #### L 501.9985 #### [facility] [address] [place], [address] Hemoglobin A1con 05-01-2024 HbA1c (Bld) [Mass fraction] 10.3 % High 3.8-5.6 [facility] Comment on above: Order Comment: 304-2 Result Comment: Norm al < 5.7 % Prediabetic 5.7 - 6.4 % Diabetic >or= 6.5 % Please note range changes. Performed By: #### L 501.9985 #### [facility] [address] [place], [place], [address] Basophil percentageOrdered B y: Avani Eduardo on 01-10-2024 Bilirubin [Mass/Vol] 0.50 mg/dL 0.20-1.00 [facility] Comment on above: For patients on eltr ombopag therapy, use of Dimension Lytle TBIL is not recommended. Chloride [Moles/Vol] 101 mmol/L 98-107 [facility] Glucose [Mass/Vol] 110 mg/dL 74-106 [facility] Comment on above: Fasting Glucose resu lt from 100 to 125 mg/dL suggests IMPAIRED HOMEOSTASIS per A.D.A. criteria. Hemoglobin (Bld) [Mass/Vol] 12.4 g/dL 13.0-16.5 [facility] Potassium [Moles/Vol] 3.1 mmol/L 3.5-5.1 [facility] Protein [Mass/Vol] 6.0 g/dL 6.4-8.2 [facility] Sodium [Moles/Vol] 139 mmol/L 136-145 [facility] WBC (Bld) [#/Vol] 5.9 10*3/uL 4.4-11.0 [facility] Determination of erythrocyte mean corpuscular volume (MCV)Ordered By: Avani Eduardo on 01-10-2024 MCV (RBC) [Entitic vol] 92.2 fL 80-94 [facility] Erythrocyte distribution wid th ratioOrdered By: Avani Eduardo on 01-10-2024 Erythrocyte distribution width (RBC) [Ratio] 13.1 % 11.6-14.6 [facility] Erythrocyte distribution wid th standard deviationOrdered By: Avani Jayce on 01-10-2024 Erythrocyte distribution width (RBC) [Entitic vol] 44.1 fL 35.1-43.9 [facility] Hematocrit Auto (Bld) [Volum e fraction]Ordered By: Avanigómez Eduardo on 01-10-2024 Hematocrit (Bld) [Volume fraction] 37.7 % 40-54 [facility] - Chemistry and C hemistry - challengeOrdered By: Avani Eduardo on 01-10-2024 Albumin/Globulin [Mass ratio] 0.8 {ratio} 0.9-2.4 [facility] ALP [Catalytic activity/Vol] 55 U/L 45-117 [facility] ALT [Catalytic activity/Vol] 20 U/L 16-61 [facility] CO2 [Moles/Vol] 32.0 mmol/L 21.0-32.0 [facility] Globulin (S) [Mass/Vol] 3.4 g/dL 2.2-4.2 [facility] Magnesium [Mass/Vol] 2.4 mg/dL 1.6-2.6 [facility] Urea nitrogen/Creatinine [Mass ratio] 20.2 mg/mg 10-20 [facility] - Hematology and Cell countsOrdered By: Avani Eduardo on 01-10-2024 MCH (RBC) [Entitic mass] 30.3 pg 27.0-32.0 [facility] MCHC (RBC) [Mass/Vol] 32.9 g/dL 32-36 [facility] Platelet mean volume (Bld) [Entitic vol] 8.9 fL 6.2-12.0 [facility] Platelets (Bld) [#/Vol] 175 10*3/uL 150-450 [facility] No Panel InformationOrdered By: Avani Eduardo on 01-10-2024 Estimated GFR (MDRD) Amer 156 mL/min >60 [facility] Comment on above: GFR Calc Estimated GFR (MDRD) Non-Af Amer 129 mL/min >60 [facility] Comment on above: Non- GFR Calc RBC Auto (Bld) [#/Vol]Ordere d By: Avani Eduardo on 01-10-2024 RBC (Bld) [#/Vol] 4.09 10*6/uL 4.6-6.2 [facility] Serum or plasma calcium minda urement (mass/volume)Ordered By: Avani Eduardo on 01-10-2024 Calcium [Mass/Vol] 8.6 mg/dL 8.5-10.1 [facility] Serum or plasma creatinine m easurement (mass/volume)Ordered By: Avani Eduardo on 01-10-2024 Creatinine [Mass/Vol] 0.64 mg/dL 0.70-1.30 [facility] Comment on above: The validity of the calculated GFR & GFRAA in patients over 70 years has not been determined. Clinical correlation is essential. Serum or plasma urea nitroge n measurement (mass/volume)Ordered By: Avani Eduardo on 01-10-2024 Urea nitrogen [Mass/Vol] 13 mg/dL 7-18 [facility] Thin prep Papanicolaou smear with manual screeningOrdered By: Avani Eduardo on 01-10-2024 Thin prep Papanicolaou smear with manual screening 2.6 g/dL 3.2-5.0 [facility] Thin prep Papanicolaou smear with manual screening 26 U/L 15-37 [facility] Thin prep Papanicolaou smear with manual screening 6 5-15 [facility] Basophil percentageOrdered B y: Avani Eduardo on 01-03-2024 Bilirubin [Mass/Vol] 0.50 mg/dL 0.20-1.00 [facility] Comment on above: For patients on eltr ombopag therapy, use of Dimension Lytle TBIL is not recommended. Chloride [Moles/Vol] 103 mmol/L 98-107 [facility] Glucose [Mass/Vol] 131 mg/dL 74-106 [facility] Comment on above: Fasting Glucose resu lt greater than or equal to 126 mg/dL suggests DIABETES MELLITUS per A.D.A. criteria. Hemoglobin (Bld) [Mass/Vol] 12.1 g/dL 13.0-16.5 [facility] Potassium [Moles/Vol] 3.2 mmol/L 3.5-5.1 [facility] Protein [Mass/Vol] 5.8 g/dL 6.4-8.2 [facility] Sodium [Moles/Vol] 139 mmol/L 136-145 [facility] WBC (Bld) [#/Vol] 5.4 10*3/uL 4.4-11.0 [facility] Determination of erythrocyte mean corpuscular volume (MCV)Ordered By: Avani Eduardo on 01-03-2024 MCV (RBC) [Entitic vol] 92.0 fL 80-94 [facility] Erythrocyte distribution wid th ratioOrdered By: Avani Eduardo on 01-03-2024 Erythrocyte distribution width (RBC) [Ratio] 13.2 % 11.6-14.6 [facility] Erythrocyte distribution wid th standard deviationOrdered By: Avani Eduardo on 01-03-2024 Erythrocyte distribution width (RBC) [Entitic vol] 45.0 fL 35.1-43.9 [facility] Hematocrit Auto (Bld) [Volum e fraction]Ordered By: Avani Eduardo on 01-03-2024 Hematocrit (Bld) [Volume fraction] 35.8 % 40-54 [facility] - Chemistry and C hemistry - challengeOrdered By: Avanigómez Eduardo on 01-03-2024 Albumin/Globulin [Mass ratio] 0.8 {ratio} 0.9-2.4 [facility] ALP [Catalytic activity/Vol] 52 U/L 45-117 [facility] ALT [Catalytic activity/Vol] 18 U/L 16-61 [facility] CO2 [Moles/Vol] 31.0 mmol/L 21.0-32.0 [facility] Globulin (S) [Mass/Vol] 3.3 g/dL 2.2-4.2 [facility] Magnesium [Mass/Vol] 2.2 mg/dL 1.6-2.6 [facility] Urea nitrogen/Creatinine [Mass ratio] 20.9 mg/mg 10-20 [facility] - Hematology and Cell countsOrdered By: Avani Eduardo on 01-03-2024 MCH (RBC) [Entitic mass] 31.1 pg 27.0-32.0 [facility] MCHC (RBC) [Mass/Vol] 33.8 g/dL 32-36 [facility] Platelet mean volume (Bld) [Entitic vol] 9.3 fL 6.2-12.0 [facility] Platelets (Bld) [#/Vol] 140 10*3/uL 150-450 [facility] No Panel InformationOrdered By: Avani Eduardo on 01-03-2024 Estimated GFR (MDRD) Amer 162 mL/min >60 [facility] Comment on above: GFR Calc Estimated GFR (MDRD) Non-Af Amer 134 mL/min >60 [facility] Comment on above: Non- GFR Calc RBC Auto (Bld) [#/Vol]Ordere d By: Avani Eduardo on 01-03-2024 RBC (Bld) [#/Vol] 3.89 10*6/uL 4.6-6.2 [facility] Serum or plasma calcium minda urement (mass/volume)Ordered By: Avani Eduardo on 01-03-2024 Calcium [Mass/Vol] 8.7 mg/dL 8.5-10.1 [facility] Serum or plasma creatinine m easurement (mass/volume)Ordered By: Avani Eduardo on 01-03-2024 Creatinine [Mass/Vol] 0.62 mg/dL 0.70-1.30 [facility] Comment on above: The validity of the calculated GFR & GFRAA in patients over 70 years has not been determined. Clinical correlation is essential. Serum or plasma urea nitroge n measurement (mass/volume)Ordered By: Avani Eduardo on 01-03-2024 Urea nitrogen [Mass/Vol] 13 mg/dL 7-18 [facility] Thin prep Papanicolaou smear with manual screeningOrdered By: Avani Eduardo on 01-03-2024 Thin prep Papanicolaou smear with manual screening 2.5 g/dL 3.2-5.0 [facility] Thin prep Papanicolaou smear with manual screening 22 U/L 15-37 [facility] Thin prep Papanicolaou smear with manual screening 5 5-15 [facility] Serum or plasma thyroid stim ulating hormone (TSH) measurement (units/volume)Ordered By: Avani Eduardo on 12-15-2023 TSH Qn 8.74 uIU/mL 0.358-3.74 [facility] Basophil percentageOrdered B y: Avani Eduardo on 11-04-2023 Bilirubin [Mass/Vol] 0.40 mg/dL 0.20-1.00 [facility] Comment on above: For patients on eltr ombopag therapy, use of Dimension Lytle TBIL is not recommended. Protein [Mass/Vol] 6.9 g/dL 6.4-8.2 [facility] Direct bilirubinOrdered By: Avani Eduardo on 11-04-2023 Bilirubin.direct [Mass/Vol] 0.13 mg/dL 0.00-0.30 [facility] - Chemistry and C hemistry - challengeOrdered By: Avani Eduardo on 11-04-2023 ALP [Catalytic activity/Vol] 66 U/L 45-117 [facility] ALT [Catalytic activity/Vol] 28 U/L 16-61 [facility] Globulin (S) [Mass/Vol] 4.0 g/dL 2.2-4.2 [facility] Thin prep Papanicolaou smear with manual screeningOrdered By: Avani Eduardo on 11-04-2023 Thin prep Papanicolaou smear with manual screening 2.9 g/dL 3.2-5.0 [facility] Thin prep Papanicolaou smear with manual screening 22 U/L 15-37 [facility] Absolute lymphocyte countOrd ered By: Avani Eduardo on 10-20-2023 Lymphocytes Auto (Unsp spec) [#/Vol] 2.41 10*3/uL 0.83-4.51 [facility] Automated lymphocyte count a s percentage of total leukocytesOrdered By: Avani Eduardo on 10-20-2023 Lymphocytes/100 WBC Auto (Unsp spec) 34.2 % 19-41 [facility] Basophil percentageOrdered B y: Avani Eduardo on 10-20-2023 Basophils/100 WBC (Bld) 0.6 % 0-1 [facility] Chloride [Moles/Vol] 101 mmol/L 98-107 [facility] Eosinophils/100 WBC (Bld) 2.0 % 0-5 [facility] Glucose [Mass/Vol] 142 mg/dL 74-106 [facility] Comment on above: Fasting Glucose resu lt greater than or equal to 126 mg/dL suggests DIABETES MELLITUS per A.D.A. criteria. Hemoglobin (Bld) [Mass/Vol] 14.2 g/dL 13.0-16.5 [facility] Monocytes/100 WBC (Bld) 12.8 % 0-10 [facility] Neutrophils (Bld) [#/Vol] 3.5 10*3/uL 2.0-7.7 [facility] Neutrophils/100 WBC (Bld) 49.5 % 47-70 [facility] Potassium [Moles/Vol] 3.6 mmol/L 3.5-5.1 [facility] Sodium [Moles/Vol] 139 mmol/L 136-145 [facility] WBC (Bld) [#/Vol] 7.0 10*3/uL 4.4-11.0 [facility] Determination of erythrocyte mean corpuscular volume (MCV)Ordered By: Avani Eduardo on 10-20-2023 MCV (RBC) [Entitic vol] 91.9 fL 80-94 [facility] Erythrocyte distribution wid th ratioOrdered By: Avani Eduardo on 10-20-2023 Erythrocyte distribution width (RBC) [Ratio] 13.2 % 11.6-14.6 [facility] Erythrocyte distribution wid th standard deviationOrdered By: Avani Eduardo on 10-20-2023 Erythrocyte distribution width (RBC) [Entitic vol] 44.6 fL 35.1-43.9 [facility] Hematocrit Auto (Bld) [Volum e fraction]Ordered By: Avani Eduardo on 10-20-2023 Hematocrit (Bld) [Volume fraction] 43.0 % 40-54 [facility] Immature granulocytes/100 WB C Auto (Bld)Ordered By: Avani Eduardo on 10-20-2023 Immature granulocytes/100 WBC (Bld) 0.900 % 0.0-0.9 [facility] Comment on above: IG% - Immature Granu locytes (promyelocytes, myelocytes and metamyelocytes) > 1% indicates that a LEFT SHIFT is Present. Laboratory - Chemistry and C hemistry - challengeOrdered By: Avani Eduardo on 10-20-2023 CO2 [Moles/Vol] 33.0 mmol/L 21.0-32.0 [facility] Urea nitrogen/Creatinine [Mass ratio] 16.5 mg/mg 10-20 [facility] - Hematology and Cell countsOrdered By: Avani Eduardo on 10-20-2023 MCH (RBC) [Entitic mass] 30.3 pg 27.0-32.0 [facility] MCHC (RBC) [Mass/Vol] 33.0 g/dL 32-36 [facility] Nucleated RBC/100 WBC (Bld) [Ratio] 0 % 0-5 [facility] Platelets (Bld) [#/Vol] 197 10*3/uL 150-450 [facility] No Panel InformationOrdered By: Avani Eduardo on 10-20-2023 Estimated GFR (MDRD) Amer 114 mL/min >60 [facility] Comment on above: GFR Calc Estimated GFR (MDRD) Non-Af Amer 94 mL/min >60 [facility] Comment on above: Non- GFR Calc Platelet mean volume Riaz-Ec ker (Bld) [Entitic vol]Ordered By: Avani Eduardo on 10-20-2023 Platelet mean volume (Bld) [Entitic vol] 8.6 fL 6.2-12.0 [facility] RBC Auto (Bld) [#/Vol]Ordere d By: Avani Eduardo on 10-20-2023 RBC (Bld) [#/Vol] 4.68 10*6/uL 4.6-6.2 [facility] Serum or plasma calcium minda urement (mass/volume)Ordered By: Avani Eudardo on 10-20-2023 Calcium [Mass/Vol] 9.4 mg/dL 8.5-10.1 [facility] Serum or plasma creatinine m easurement (mass/volume)Ordered By: Avani Eduardo on 10-20-2023 Creatinine [Mass/Vol] 0.85 mg/dL 0.70-1.30 [facility] Comment on above: The validity of the calculated GFR & GFRAA in patients over 70 years has not been determined. Clinical correlation is essential. Serum or plasma urea nitroge n measurement (mass/volume)Ordered By: Avani Eduardo on 10-20-2023 Urea nitrogen [Mass/Vol] 14 mg/dL 7-18 [facility] Thin prep Papanicolaou smear with manual screeningOrdered By: Avani Eduardo on 10-20-2023 Thin prep Papanicolaou smear with manual screening 5 5-15 [facility] - Chemistry and C hemistry - challengeOrdered By: Avani Eduardo on 10-11-2023 T4 [Mass/Vol] 10.8 ug/dL 4.5-12.1 [facility] No Panel InformationOrdered By: Avani Eduardo on 10-11-2023 Thyroid Stimulating Hormone (TSH) 5.65 uIU/mL 0.358-3.74 [facility] Basophil percentageOrdered B y: Avani Eduardo on 10-05-2023 Chloride [Moles/Vol] 105 mmol/L 98-107 [facility] Glucose [Mass/Vol] 95 mg/dL 74-106 [facility] Potassium [Moles/Vol] 3.7 mmol/L 3.5-5.1 [facility] Comment on above: Slight Hemolysis, Re sult may be falsely increased. Sodium [Moles/Vol] 139 mmol/L 136-145 [facility] - Chemistry and C hemistry - challengeOrdered By: Avani Eduardo on 10-05-2023 CO2 [Moles/Vol] 30.0 mmol/L 21.0-32.0 [facility] Magnesium [Mass/Vol] 2.5 mg/dL 1.6-2.6 [facility] Comment on above: Slight Hemolysis, Re sult may be falsely increased. Urea nitrogen/Creatinine [Mass ratio] 16.3 mg/mg 10-20 [facility] No Panel InformationOrdered By: Avani Eduardo on 10-05-2023 Estimated GFR (MDRD) Amer 134 mL/min >60 [facility] Comment on above: GFR Calc Estimated GFR (MDRD) Non-Af Amer 111 mL/min >60 [facility] Comment on above: Non- GFR Calc Serum or plasma calcium minda urement (mass/volume)Ordered By: Avani Eduardo on 10-05-2023 Calcium [Mass/Vol] 8.0 mg/dL 8.5-10.1 [facility] Serum or plasma creatinine m easurement (mass/volume)Ordered By: Avani Eduardo on 10-05-2023 Creatinine [Mass/Vol] 0.74 mg/dL 0.70-1.30 [facility] Comment on above: The validity of the calculated GFR & GFRAA in patients over 70 years has not been determined. Clinical correlation is essential. Serum or plasma urea nitroge n measurement (mass/volume)Ordered By: Avani Eduardo on 10-05-2023 Urea nitrogen [Mass/Vol] 12 mg/dL 7-18 [facility] Thin prep Papanicolaou smear with manual screeningOrdered By: Avani Eduardo on 10-05-2023 Thin prep Papanicolaou smear with manual screening 4 5-15 [facility] Absolute lymphocyte countOrd ered By: Avani Eduardo on 09-22-2023 Lymphocytes Auto (Unsp spec) [#/Vol] 2.51 10*3/uL 0.83-4.51 [facility] Basophil percentageOrdered B y: Avani Eduardo on 09-22-2023 Basophils/100 WBC (Bld) 0.5 % 0-1 [facility] Chloride [Moles/Vol] 107 mmol/L 98-107 [facility] Eosinophils/100 WBC (Bld) 1.7 % 0-5 [facility] Glucose [Mass/Vol] 123 mg/dL 74-106 [facility] Comment on above: Fasting Glucose resu lt from 100 to 125 mg/dL suggests IMPAIRED HOMEOSTASIS per A.D.A. criteria. Neutrophils (Bld) [#/Vol] 2.3 10*3/uL 2.0-7.7 [facility] Neutrophils/100 WBC (Bld) 38.7 % 47-70 [facility] Potassium [Moles/Vol] 3.7 mmol/L 3.5-5.1 [facility] Sodium [Moles/Vol] 143 mmol/L 136-145 [facility] WBC (Bld) [#/Vol] 5.8 10*3/uL 4.4-11.0 [facility] Blood erythrocytes count (nu mber/volume)Ordered By: Avani Eduardo on 09-22-2023 RBC (Bld) [#/Vol] 4.08 10*6/uL 4.6-6.2 [facility] Blood hemoglobin measurement (mass/volume)Ordered By: Avani Eduardo on 09-22-2023 Hemoglobin (Bld) [Mass/Vol] 12.6 g/dL 13.0-16.5 [facility] Blood lymphocytes/100 leukoc ytesOrdered By: Avani Eduardo on 09-22-2023 Lymphocytes/100 WBC (Bld) 43.1 % 19-41 [facility] Blood monocytes/100 leukocyt esOrdered By: Avani Eduardo on 09-22-2023 Monocytes/100 WBC (Bld) 14.8 % 0-10 [facility] Blood platelet mean volumeOr dered By: Avani Eduardo on 09-22-2023 Platelet mean volume (Bld) [Entitic vol] 8.8 fL 6.2-12.0 [facility] Determination of erythrocyte mean corpuscular volume (MCV)Ordered By: Avani Eduardo on 09-22-2023 MCV (RBC) [Entitic vol] 93.6 fL 80-94 [facility] Hematocrit Auto (Bld) [Volum e fraction]Ordered By: Avani Eduardo on 09-22-2023 Hematocrit (Bld) [Volume fraction] 38.2 % 40-54 [facility] - Chemistry and C hemistry - challengeOrdered By: Avani Eduardo on 09-22-2023 CO2 [Moles/Vol] 34.0 mmol/L 21.0-32.0 [facility] Natriuretic peptide B (Bld) [Mass/Vol] 7.4 pg/mL 0-100 [facility] Urea nitrogen/Creatinine [Mass ratio] 24.9 mg/mg 10-20 [facility] - Hematology and Cell countsOrdered By: Avani Eduardo on 09-22-2023 Erythrocyte distribution width (RBC) [Entitic vol] 45.8 fL 35.1-43.9 [facility] Erythrocyte distribution width (RBC) [Ratio] 13.3 % 11.6-14.6 [facility] Immature granulocytes/100 WBC (Bld) 1.200 % 0.0-0.9 [facility] Comment on above: IG% - Immature Granu locytes (promyelocytes, myelocytes and metamyelocytes) > 1% indicates that a LEFT SHIFT is Present. MCH (RBC) [Entitic mass] 30.9 pg 27.0-32.0 [facility] Nucleated RBC/100 [facility]Bld) [[facility] [Mass/Vol]Or dered By: Avani Eduardo on 09-22-2023 MCHC (RBC) [Mass/Vol] 33.0 g/dL 32-36 [facility] No Panel InformationOrdered By: Avani Eduardo on 09-22-2023 Estimated GFR (MDRD) Amer 146 mL/min >60 [facility] Comment on above: GFR Calc Estimated GFR (MDRD) Non-Af Amer 121 mL/min >60 [facility] Comment on above: Non- GFR Calc Platelets bldOrdered By: Ethan Eduardo on 09-22-2023 Platelets (Bld) [#/Vol] 170 10*3/uL 150-450 [facility] Serum or plasma calcium minda urement (mass/volume)Ordered By: Avani Eduardo on 09-22-2023 Calcium [Mass/Vol] 8.8 mg/dL 8.5-10.1 [facility] Serum or plasma creatinine m easurement (mass/volume)Ordered By: Avani Eduardo on 09-22-2023 Creatinine [Mass/Vol] 0.68 mg/dL 0.70-1.30 [facility] Comment on above: The validity of the calculated GFR & GFRAA in patients over 70 years has not been determined. Clinical correlation is essential. Serum or plasma urea nitroge n measurement (mass/volume)Ordered By: Avani Eduardo on 09-22-2023 Urea nitrogen [Mass/Vol] 17 mg/dL 7-18 [facility] Thin prep Papanicolaou smear with manual screeningOrdered By: Avani Eduardo on 09-22-2023 Thin prep Papanicolaou smear with manual screening 2 5-15 [facility] Basophil percentageOrdered B y: Avani Eduardo on 09-13-2023 Chloride [Moles/Vol] 105 mmol/L 98-107 [facility] Glucose [Mass/Vol] 100 mg/dL 74-106 [facility] Comment on above: Fasting Glucose resu lt from 100 to 125 mg/dL suggests IMPAIRED HOMEOSTASIS per A.D.A. criteria. Potassium [Moles/Vol] 4.3 mmol/L 3.5-5.1 [facility] Sodium [Moles/Vol] 139 mmol/L 136-145 [facility] Laboratory - Chemistry and C hemistry - challengeOrdered By: Avani Eduardo on 09-13-2023 CO2 [Moles/Vol] 28.0 mmol/L 21.0-32.0 [facility] Urea nitrogen/Creatinine [Mass ratio] 21.8 mg/mg 10-20 [facility] No Panel InformationOrdered By: Avani Eduardo on 09-13-2023 Estimated GFR (MDRD) Amer 157 mL/min >60 [facility] Comment on above: GFR Calc Estimated GFR (MDRD) Non-Af Amer 130 mL/min >60 [facility] Comment on above: Non- GFR Calc Serum or plasma calcium minda urement (mass/volume)Ordered By: Avani Eduardo on 09-13-2023 Calcium [Mass/Vol] 8.4 mg/dL 8.5-10.1 [facility] Serum or plasma creatinine m easurement (mass/volume)Ordered By: Avani Eduardo on 09-13-2023 Creatinine [Mass/Vol] 0.64 mg/dL 0.70-1.30 [facility] Comment on above: The validity of the calculated GFR & GFRAA in patients over 70 years has not been determined. Clinical correlation is essential. Serum or plasma urea nitroge n measurement (mass/volume)Ordered By: Avani Eduardo on 09-13-2023 Urea nitrogen [Mass/Vol] 14 mg/dL 7-18 [facility] Thin prep Papanicolaou smear with manual screeningOrdered By: Avani Eduardo on 09-13-2023 Thin prep Papanicolaou smear with manual screening 6 5-15 [facility] No Panel InformationOrdered By: Avani Eduardo on 08-30-2023 Levetiracetam (Keppra) Level 25.0 ug/mL 10.0-40.0 [facility] Comment on above: Performed at: [address], [place], [place] [id number] Director: Jess Bess MD, Phone: [phone] Absolute lymphocyte countOrd ered By: Avani Eduardo on 08-23-2023 Lymphocytes Auto (Unsp spec) [#/Vol] 1.90 10*3/uL 0.83-4.51 [facility] Basophil percentageOrdered B y: Avani Eduardo on 08-23-2023 Basophils/100 WBC (Bld) 0.7 % 0-1 [facility] Chloride [Moles/Vol] 104 mmol/L 98-107 [facility] Eosinophils/100 WBC (Bld) 2.2 % 0-5 [facility] Glucose [Mass/Vol] 122 mg/dL 74-106 [facility] Comment on above: Fasting Glucose resu lt from 100 to 125 mg/dL suggests IMPAIRED HOMEOSTASIS per A.D.A. criteria. Neutrophils (Bld) [#/Vol] 2.5 10*3/uL 2.0-7.7 [facility] Neutrophils/100 WBC (Bld) 45.6 % 47-70 [facility] Potassium [Moles/Vol] 3.7 mmol/L 3.5-5.1 [facility] Sodium [Moles/Vol] 142 mmol/L 136-145 [facility] WBC (Bld) [#/Vol] 5.6 10*3/uL 4.4-11.0 [facility] Blood erythrocytes count (nu mber/volume)Ordered By: Avani Eduardo on 08-23-2023 RBC (Bld) [#/Vol] 4.12 10*6/uL 4.6-6.2 [facility] Blood hemoglobin measurement (mass/volume)Ordered By: Avani Eduardo on 08-23-2023 Hemoglobin (Bld) [Mass/Vol] 12.3 g/dL 13.0-16.5 [facility] Blood lymphocytes/100 leukoc ytesOrdered By: Avani Eduardo on 08-23-2023 Lymphocytes/100 WBC (Bld) 34.2 % 19-41 [facility] Blood monocytes/100 leukocyt esOrdered By: Avani Eduardo on 08-23-2023 Monocytes/100 WBC (Bld) 16.0 % 0-10 [facility] Blood platelet mean volumeOr dered By: Avani Eduardo on 08-23-2023 Platelet mean volume (Bld) [Entitic vol] 9.3 fL 6.2-12.0 [facility] Determination of erythrocyte mean corpuscular volume (MCV)Ordered By: Avani Eduardo on 08-23-2023 MCV (RBC) [Entitic vol] 93.7 fL 80-94 [facility] Hematocrit Auto (Bld) [Volum e fraction]Ordered By: Avani Eduardo on 08-23-2023 Hematocrit (Bld) [Volume fraction] 38.6 % 40-54 [facility] Laboratory - Chemistry and C hemistry - challengeOrdered By: Avani Eduardo on 08-23-2023 CO2 [Moles/Vol] 31.0 mmol/L 21.0-32.0 [facility] Magnesium [Mass/Vol] 2.6 mg/dL 1.6-2.6 [facility] Urea nitrogen/Creatinine [Mass ratio] 26.0 mg/mg 10-20 [facility] Laboratory - Hematology and Cell countsOrdered By: Avani Eduardo on 08-23-2023 Erythrocyte distribution width (RBC) [Entitic vol] 46.4 fL 35.1-43.9 [facility] Erythrocyte distribution width (RBC) [Ratio] 13.4 % 11.6-14.6 [facility] Immature granulocytes/100 WBC (Bld) 1.300 % 0.0-0.9 [facility] Comment on above: IG% - Immature Granu locytes (promyelocytes, myelocytes and metamyelocytes) > 1% indicates that a LEFT SHIFT is Present. MCH (RBC) [Entitic mass] 29.9 pg 27.0-32.0 [facility] Nucleated RBC/100 WBC (Bld) [Ratio] 0 % 0-5 [facility] MCHC Auto (RBC) [Mass/Vol]Or dered By: Avani Eduardo on 08-23-2023 MCHC (RBC) [Mass/Vol] 31.9 g/dL 32-36 [facility] No Panel InformationOrdered By: Avani Eduardo on 08-23-2023 Estimated GFR (MDRD) Amer 144 mL/min >60 [facility] Comment on above: GFR Calc Estimated GFR (MDRD) Non-Af Amer 119 mL/min >60 [facility] Comment on above: Non- GFR Calc Levetiracetam (Keppra) Level 51.4 ug/mL 10.0-40.0 [facility] Comment on above: Performed at: - [address] [id number] Director: Jess Bess MD, Phone: [phone] Valproic Acid (Depakene) Level 60 ug/mL 50-100 [facility] Platelets bldOrdered By: Ethan Eduardo on 08-23-2023 Platelets (Bld) [#/Vol] 174 10*3/uL 150-450 [facility] Serum or plasma calcium minda urement (mass/volume)Ordered By: Avani Eduardo on 08-23-2023 Calcium [Mass/Vol] 8.5 mg/dL 8.5-10.1 [facility] Serum or plasma creatinine m easurement (mass/volume)Ordered By: Avani Eduardo on 08-23-2023 Creatinine [Mass/Vol] 0.69 mg/dL 0.70-1.30 [facility] Comment on above: The validity of the calculated GFR & GFRAA in patients over 70 years has not been determined. Clinical correlation is essential. Serum or plasma urea nitroge n measurement (mass/volume)Ordered By: Avani Eduardo on 08-23-2023 Urea nitrogen [Mass/Vol] 18 mg/dL 7-18 [facility] Serum or plasma uric acid me asurement (mass/volume)Ordered By: Avani Eduardo on 08-23-2023 Urate [Mass/Vol] 5.6 mg/dL 3.5-7.2 [facility] Comment on above: The drugs N-Acetylcy steine and Metamizole may falsely depress this assay. Thin prep Papanicolaou smear with manual screeningOrdered By: Avani Eduardo on 08-23-2023 Thin prep Papanicolaou smear with manual screening 7 5-15 [facility] Basophil percentageOrdered B y: Avani Eduardo on 05-24-2023 Cholesterol [Mass/Vol] 143 mg/dL <200 [facility] Comment on above: <200 mg/dL Desirable 200-240 mg/dL Borderline >240 mg/dL High Risk Triglyceride [Mass/Vol] 102 mg/dL <199 [facility] Comment on above: The drugs N-Acetylcy steine and Metamizole may falsely depress this assay.Serum Triglycerides Reference Interval Normal <150 mg/dL Borderline high 150 - 199 mg/dL High 200 - 499 mg/dL Very High > or = 500 mg/dL Serum or plasma cholesterol in HDL measurement (mass/volume)Ordered By: Avani Eduardo on 05-24-2023 Cholesterol in HDL [Mass/Vol] 54 mg/dL >40 [facility] Comment on above: The drugs N-Acetylcy steine and Metamizole may falsely depress this assay. Reference Range HDL <40 mg/dL Low HDL Cholesterol HDL >or= 60 mg/dL High HDL Cholesterol Serum or plasma cholesterol in VLDL measurement (mass/volume)Ordered By: Avani Eduardo on 05-24-2023 Cholesterol in VLDL [Mass/Vol] 20 mg/dL 5-40 [facility] Serum or plasma low density lipoprotein (LDL) cholesterol measurement (mass/volume)Ordered By: Avani Eduardo on 05-24-2023 Cholesterol in LDL [Mass/Vol] 69 mg/dL 0-130 [facility] Basophil percentageOrdered B y: Avani Eduardo on 02-16-2023 Chloride [Moles/Vol] 106 mmol/L 98-107 [facility] Glucose [Mass/Vol] 61 mg/dL 74-106 [facility] Potassium [Moles/Vol] 4.1 mmol/L 3.5-5.1 [facility] Sodium [Moles/Vol] 142 mmol/L 136-145 [facility] WBC (Bld) [#/Vol] 5.5 10*3/uL 4.4-11.0 [facility] Blood erythrocytes count (nu mber/volume)Ordered By: Avani Eduardo on 02-16-2023 RBC (Bld) [#/Vol] 3.87 10*6/uL 4.6-6.2 [facility] Blood hemoglobin measurement (mass/volume)Ordered By: Avani Eduardo on 02-16-2023 Hemoglobin (Bld) [Mass/Vol] 12.7 g/dL 13.0-16.5 [facility] Blood platelet mean volumeOr dered By: Avani Eduardo on 02-16-2023 Platelet mean volume (Bld) [Entitic vol] 9.0 fL 6.2-12.0 [facility] Determination of erythrocyte mean corpuscular volume (MCV)Ordered By: Avani Eduardo on 02-16-2023 MCV (RBC) [Entitic vol] 104.4 fL 80-94 [facility] Hematocrit Auto (Bld) [Volum e fraction]Ordered By: Avani Eduardo on 02-16-2023 Hematocrit (Bld) [Volume fraction] 40.4 % 40-54 [facility] Laboratory - Chemistry and C hemistry - challengeOrdered By: Avani Eduardo on 02-16-2023 CO2 [Moles/Vol] 27.0 mmol/L 21.0-32.0 [facility] Magnesium [Mass/Vol] 2.6 mg/dL 1.6-2.6 [facility] Urea nitrogen/Creatinine [Mass ratio] 26.0 mg/mg 10-20 [facility] - Hematology and Cell countsOrdered By: Avanigómez Eduardo on 02-16-2023 Erythrocyte distribution width (RBC) [Entitic vol] 46.1 fL 35.1-43.9 [facility] Erythrocyte distribution width (RBC) [Ratio] 11.9 % 11.6-14.6 [facility] MCH (RBC) [Entitic mass] 32.8 pg 27.0-32.0 [facility] MCHC Auto (RBC) [Mass/Vol]Or dered By: Avani Eduardo on 02-16-2023 MCHC (RBC) [Mass/Vol] 31.4 g/dL 32-36 [facility] No Panel InformationOrdered By: Avani Eduardo on 02-16-2023 Estimated GFR (MDRD) Amer 178 mL/min >60 [facility] Comment on above: GFR Calc Estimated GFR (MDRD) Non-Af Amer 147 mL/min >60 [facility] Comment on above: Non- GFR Calc Platelets bldOrdered By: Ethan Eduardo on 02-16-2023 Platelets (Bld) [#/Vol] 141 10*3/uL 150-450 [facility] Serum or plasma calcium minda urement (mass/volume)Ordered By: Avani Eduardo on 02-16-2023 Calcium [Mass/Vol] 8.7 mg/dL 8.5-10.1 [facility] Serum or plasma creatinine m easurement (mass/volume)Ordered By: Avani Eduardo on 02-16-2023 Creatinine [Mass/Vol] 0.58 mg/dL 0.70-1.30 [facility] Comment on above: The validity of the calculated GFR & GFRAA in patients over 70 years has not been determined. Clinical correlation is essential. Serum or plasma urea nitroge n measurement (mass/volume)Ordered By: Avani Eduardo on 02-16-2023 Urea nitrogen [Mass/Vol] 15 mg/dL 7-18 [facility] Thin prep Papanicolaou smear with manual screeningOrdered By: Avani Eduardo on 02-16-2023 Thin prep Papanicolaou smear with manual screening 9 5-15 [facility] Basophil percentageOrdered B y: Avani Eduardo on 02-09-2023 Chloride [Moles/Vol] 106 mmol/L 98-107 [facility] Glucose [Mass/Vol] 95 mg/dL 74-106 [facility] Potassium [Moles/Vol] 3.9 mmol/L 3.5-5.1 [facility] Sodium [Moles/Vol] 143 mmol/L 136-145 [facility] WBC (Bld) [#/Vol] 7.2 10*3/uL 4.4-11.0 [facility] Blood erythrocytes count (nu mber/volume)Ordered By: Avani Eduardo on 02-09-2023 RBC (Bld) [#/Vol] 3.98 10*6/uL 4.6-6.2 [facility] Blood hemoglobin measurement (mass/volume)Ordered By: Avani Eduardo on 02-09-2023 Hemoglobin (Bld) [Mass/Vol] 13.1 g/dL 13.0-16.5 [facility] Blood platelet mean volumeOr dered By: Avani Eduardo on 02-09-2023 Platelet mean volume (Bld) [Entitic vol] 9.3 fL 6.2-12.0 [facility] Determination of erythrocyte mean corpuscular volume (MCV)Ordered By: Avani Eduardo on 02-09-2023 MCV (RBC) [Entitic vol] 103.0 fL 80-94 [facility] Hematocrit Auto (Bld) [Volum e fraction]Ordered By: Avani Eduardo on 02-09-2023 Hematocrit (Bld) [Volume fraction] 41.0 % 40-54 [facility] Laboratory - Chemistry and C hemistry - challengeOrdered By: Avanigómez Eduardo on 02-09-2023 CO2 [Moles/Vol] 31.0 mmol/L 21.0-32.0 [facility] Magnesium [Mass/Vol] 2.7 mg/dL 1.6-2.6 [facility] Urea nitrogen/Creatinine [Mass ratio] 21.5 mg/mg 10-20 [facility] Laboratory - Hematology and Cell countsOrdered By: Avani Eduardo on 02-09-2023 Erythrocyte distribution width (RBC) [Entitic vol] 46.2 fL 35.1-43.9 [facility] Erythrocyte distribution width (RBC) [Ratio] 12.2 % 11.6-14.6 [facility] MCH (RBC) [Entitic mass] 32.9 pg 27.0-32.0 [facility] MCHC Auto (RBC) [Mass/Vol]Or dered By: Avani Eduardo on 02-09-2023 MCHC (RBC) [Mass/Vol] 32.0 g/dL 32-36 [facility] No Panel InformationOrdered By: Avani Eduardo on 02-09-2023 Estimated GFR (MDRD) Amer 155 mL/min >60 [facility] Comment on above: GFR Calc Estimated GFR (MDRD) Non-Af Amer 128 mL/min >60 [facility] Comment on above: Non- GFR Calc Platelets bldOrdered By: Ethan Eduardo on 02-09-2023 Platelets (Bld) [#/Vol] 185 10*3/uL 150-450 [facility] Serum or plasma calcium minda urement (mass/volume)Ordered By: Avani Eduardo on 02-09-2023 Calcium [Mass/Vol] 9.2 mg/dL 8.5-10.1 [facility] Serum or plasma creatinine m easurement (mass/volume)Ordered By: Avani Eduardo on 02-09-2023 Creatinine [Mass/Vol] 0.65 mg/dL 0.70-1.30 [facility] Comment on above: The validity of the calculated GFR & GFRAA in patients over 70 years has not been determined. Clinical correlation is essential. Serum or plasma urea nitroge n measurement (mass/volume)Ordered By: Avani Eduardo on 02-09-2023 Urea nitrogen [Mass/Vol] 14 mg/dL 7-18 [facility] Thin prep Papanicolaou smear with manual screeningOrdered By: Avanigómez Eduardo on 02-09-2023 Thin prep Papanicolaou smear with manual screening 6 5-15 [facility] Basophil percentageOrdered B y: [facility] on 02-05-2023 Ammonia (P) [Moles/Vol] 31.0 umol/L -32 [facility] No Panel InformationOrdered By: [facility] on 02-05-2023 Levetiracetam (Keppra) Level 33.4 ug/mL 10.0-40.0 [facility] Comment on above: Performed at: - [address] [id number] Director: Jess Bess MD, Phone: [phone] Valproic Acid (Depakene) Level 81 ug/mL 50-100 [facility] Absolute lymphocyte countOrd ered By: Dr. Wilder on 01-18-2023 Lymphocytes Auto (Unsp spec) [#/Vol] 2.09 10*3/uL 0.83-4.51 [facility] Basophil percentageOrdered B y: Dr. Wilder on 01-18-2023 Ammonia (P) [Moles/Vol] 73.0 umol/L 11-32 [facility] Basophils/100 WBC (Bld) 0.7 % 0-1 [facility] Bilirubin [Mass/Vol] 0.20 mg/dL 0.20-1.00 [facility] Comment on above: For patients on eltr ombopag therapy, use of Dimension Lytle TBIL is not recommended. Chloride [Moles/Vol] 110 mmol/L 98-107 [facility] Eosinophils/100 WBC (Bld) 1.7 % 0-5 [facility] Glucose [Mass/Vol] 102 mg/dL 74-106 [facility] Comment on above: Fasting Glucose resu lt from 100 to 125 mg/dL suggests IMPAIRED HOMEOSTASIS per A.D.A. criteria. Neutrophils (Bld) [#/Vol] 2.4 10*3/uL 2.0-7.7 [facility] Neutrophils/100 WBC (Bld) 44.0 % 47-70 [facility] Potassium [Moles/Vol] 4.0 mmol/L 3.5-5.1 [facility] Protein [Mass/Vol] 4.5 g/dL 6.4-8.2 [facility] Sodium [Moles/Vol] 142 mmol/L 136-145 [facility] WBC (Bld) [#/Vol] 5.4 10*3/uL 4.4-11.0 [facility] Blood erythrocytes count (nu mber/volume)Ordered By: Dr. Wilder on 01-18-2023 RBC (Bld) [#/Vol] 2.97 10*6/uL 4.6-6.2 [facility] Blood hemoglobin measurement (mass/volume)Ordered By: Dr. Wilder on 01-18-2023 Hemoglobin (Bld) [Mass/Vol] 9.9 g/dL 13.0-16.5 [facility] Blood lymphocytes/100 leukoc ytesOrdered By: Dr. iWlder on 01-18-2023 Lymphocytes/100 WBC (Bld) 38.8 % 19-41 [facility] Blood monocytes/100 leukocyt esOrdered By: Dr. Wilder on 01-18-2023 Monocytes/100 WBC (Bld) 13.7 % 0-10 [facility] Blood platelet mean volumeOr dered By: Dr. Wilder on 01-18-2023 Platelet mean volume (Bld) [Entitic vol] 8.7 fL 6.2-12.0 [facility] Determination of erythrocyte mean corpuscular volume (MCV)Ordered By: Dr. Wilder on 01-18-2023 MCV (RBC) [Entitic vol] 104.7 fL 80-94 [facility] Hematocrit Auto (Bld) [Volum e fraction]Ordered By: Dr. Wilder on 01-18-2023 Hematocrit (Bld) [Volume fraction] 31.1 % 40-54 [facility] Laboratory - Chemistry and C hemistry - challengeOrdered By: Dr. Wilder on 01-18-2023 ALP [Catalytic activity/Vol] 38 U/L 45-117 [facility] ALT [Catalytic activity/Vol] 10 U/L 16-61 [facility] CO2 [Moles/Vol] 29.0 mmol/L 21.0-32.0 [facility] Globulin (S) [Mass/Vol] 2.4 g/dL 2.2-4.2 [facility] Urea nitrogen/Creatinine [Mass ratio] 30.9 mg/mg 10-20 [facility] Laboratory - Hematology and Cell countsOrdered By: Dr. Wilder on 01-18-2023 Erythrocyte distribution width (RBC) [Entitic vol] 52.2 fL 35.1-43.9 [facility] Erythrocyte distribution width (RBC) [Ratio] 13.4 % 11.6-14.6 [facility] Immature granulocytes/100 WBC (Bld) 1.100 % 0.0-0.9 [facility] Comment on above: IG% - Immature Granu locytes (promyelocytes, myelocytes and metamyelocytes) > 1% indicates that a LEFT SHIFT is Present. MCH (RBC) [Entitic mass] 33.3 pg 27.0-32.0 [facility] Nucleated RBC/100 WBC (Bld) [Ratio] 0 % 0-5 [facility] MCHC Auto (RBC) [Mass/Vol]Or dered By: Dr. Wilder on 01-18-2023 MCHC (RBC) [Mass/Vol] 31.8 g/dL 32-36 [facility] No Panel InformationOrdered By: Dr. Wilder on 01-18-2023 Estimated Creatinine Clearance Calc 52.95 ml/min [facility] Estimated GFR (MDRD) Amer 217 mL/min >60 [facility] Comment on above: GFR Calc Estimated GFR (MDRD) Non-Af Amer 179 mL/min >60 [facility] Comment on above: Non- GFR Calc Platelets bldOrdered By: Dr. Wilder on 01-18-2023 Platelets (Bld) [#/Vol] 137 10*3/uL 150-450 [facility] Serum or plasma albumin minda urement (mass/volume)Ordered By: Dr. Wilder on 01-18-2023 Albumin [Mass/Vol] 2.1 g/dL 3.2-5.0 [facility] Serum or plasma albumin/glob ulin mass ratioOrdered By: Dr. Wilder on 01-18-2023 Albumin/Globulin [Mass ratio] 0.9 {ratio} 0.9-2.4 [facility] Serum or plasma calcium minda urement (mass/volume)Ordered By: Dr. Wilder on 01-18-2023 Calcium [Mass/Vol] 8.5 mg/dL 8.5-10.1 [facility] Serum or plasma creatinine m easurement (mass/volume)Ordered By: Dr. Wilder on 01-18-2023 Creatinine [Mass/Vol] 0.48 mg/dL 0.70-1.30 [facility] Comment on above: The validity of the calculated GFR & GFRAA in patients over 70 years has not been determined. Clinical correlation is essential. Serum or plasma urea nitroge n measurement (mass/volume)Ordered By: Dr. Wilder on 01-18-2023 Urea nitrogen [Mass/Vol] 15 mg/dL 7-18 [facility] Thin prep Papanicolaou smear with manual screeningOrdered By: Dr. Wilder on 01-18-2023 Thin prep Papanicolaou smear with manual screening 14 U/L 15-37 [facility] Thin prep Papanicolaou smear with manual screening 3 5-15 [facility] Assessment of wrist artery p atency prior to arterial punctureOrdered By: Dr. Wilder on 01-16-2023 Arterial patency Wrist artery --pre arterial puncture Positive [facility] Base excessOrdered By: Dr. Brodie arce on 01-16-2023 Base excess Calc (BldV) [Moles/Vol] 7 mmol/L -2-2 [facility] Basophil percentageOrdered B y: Dr. Wilder on 01-16-2023 Basophil percentage 31.9 mmol/L 22-26 [facility] Basophils/100 WBC (Bld) 94 % 95-99 [facility] CO2 (BldA) [Partial pressure ]Ordered By: Dr. Wilder on 01-16-2023 CO2 (Bld) [Partial pressure] 49.8 mm[Hg] 35-45 [facility] Laboratory - Chemistry and C hemistry - challengeOrdered By: Dr. Wilder on 01-16-2023 Natriuretic peptide B (Bld) [Mass/Vol] 15.2 pg/mL 0-100 [facility] No Panel InformationOrdered By: Dr. Wilder on 01-16-2023 Valproic Acid (Depakene) Level 91 ug/mL 50-100 [facility] Blood Gas Oxygen Percent 21 [facility] Blood Gas Sample Site R Radial [facility] Blood Gas Specimen Type ART [facility] Blood Gas Total CO2 33 mmol/L [facility] Oxygen Delivery Device Room Air [facility] Oxygen (BldA) [Partial press ure]Ordered By: Dr. Wilder on 01-16-2023 Oxygen (Bld) [Partial pressure] 70 mmHG 75-100 [facility] pH measurementOrdered By: Dr Shanthi Wilder on 01-16-2023 pH (Unsp spec) 7.42 [pH] 7.35-7.45 [facility] Absolute lymphocyte countOrd ered By: Dr. Malik on 01-10-2023 Lymphocytes Auto (Unsp spec) [#/Vol] 2.65 10*3/uL 0.83-4.51 [facility] Basophil percentageOrdered B y: Dr. Malik on 01-10-2023 Basophil percentage 0 SEEN /hpf 0-5 [facility] Basophils/100 WBC (Bld) 0.8 % 0-1 [facility] Chloride [Moles/Vol] 105 mmol/L 98-107 [facility] Eosinophils/100 WBC (Bld) 1.7 % 0-5 [facility] Glucose [Mass/Vol] 83 mg/dL 74-106 [facility] Neutrophils (Bld) [#/Vol] 5.6 10*3/uL 2.0-7.7 [facility] Neutrophils/100 WBC (Bld) 53.9 % 47-70 [facility] Potassium [Moles/Vol] 4.3 mmol/L 3.5-5.1 [facility] Sodium [Moles/Vol] 139 mmol/L 136-145 [facility] WBC (Bld) [#/Vol] 10.4 10*3/uL 4.4-11.0 [facility] Bilirubin Test strip Ql (U)O rdered By: Dr. Malik on 01-10-2023 Bilirubin Ql (U) Negative Negative [facility] Blood erythrocytes count (nu mber/volume)Ordered By: Dr. Malik on 01-10-2023 RBC (Bld) [#/Vol] 3.68 10*6/uL 4.6-6.2 [facility] Blood hemoglobin measurement (mass/volume)Ordered By: Dr. Malik on 01-10-2023 Hemoglobin (Bld) [Mass/Vol] 12.3 g/dL 13.0-16.5 [facility] Blood lymphocytes/100 leukoc ytesOrdered By: Dr. Malik on 01-10-2023 Lymphocytes/100 WBC (Bld) 25.6 % 19-41 [facility] Blood monocytes/100 leukocyt esOrdered By: Dr. Malik on 01-10-2023 Monocytes/100 WBC (Bld) 16.6 % 0-10 [facility] Blood platelet mean volumeOr dered By: Dr. Malik on 01-10-2023 Platelet mean volume (Bld) [Entitic vol] 8.4 fL 6.2-12.0 [facility] Determination of erythrocyte mean corpuscular volume (MCV)Ordered By: Dr. Malik on 01-10-2023 MCV (RBC) [Entitic vol] 102.2 fL 80-94 [facility] Hematocrit Auto (Bld) [Volum e fraction]Ordered By: Dr. Malik on 01-10-2023 Hematocrit (Bld) [Volume fraction] 37.6 % 40-54 [facility] Hyaline casts LM.LPF (Urine sed) [#/Area]Ordered By: Dr. Malik on 01-10-2023 Hyaline casts (Urine sed) [#/Area] 0 /[LPF] 0-5 [facility] Ketones Test strip Ql (U)Ord ered By: Dr. Malik on 01-10-2023 Ketones Ql (U) 5 mg/dl Negative [facility] Laboratory - Chemistry and C hemistry - challengeOrdered By: Dr. Malik on 01-10-2023 CO2 [Moles/Vol] 29.0 mmol/L 21.0-32.0 [facility] Urea nitrogen/Creatinine [Mass ratio] 15.0 mg/mg 10-20 [facility] Laboratory - Hematology and Cell countsOrdered By: Dr. Malik on 01-10-2023 Erythrocyte distribution width (RBC) [Entitic vol] 49.0 fL 35.1-43.9 [facility] Erythrocyte distribution width (RBC) [Ratio] 13.1 % 11.6-14.6 [facility] Immature granulocytes/100 WBC (Bld) 1.400 % 0.0-0.9 [facility] Comment on above: IG% - Immature Granu locytes (promyelocytes, myelocytes and metamyelocytes) > 1% indicates that a LEFT SHIFT is Present. MCH (RBC) [Entitic mass] 33.4 pg 27.0-32.0 [facility] Nucleated RBC/100 WBC (Bld) [Ratio] 0 % 0-5 [facility] MCHC Auto (RBC) [Mass/Vol]Or dered By: Dr. Malik on 01-10-2023 MCHC (RBC) [Mass/Vol] 32.7 g/dL 32-36 [facility] Macrocytes detectionOrdered By: Dr. Malik on 01-10-2023 Macrocytes Ql (Bld) 2+ [facility] Mucus LM Ql (Urine sed)Order ed By: Dr. Malik on 01-10-2023 Mucus Ql (Urine sed) 0 SEEN /hpf [facility] Nitrite Test strip Ql (U)Ord ered By: Dr. Malik on 01-10-2023 Nitrite Ql (U) Negative Negative [facility] No Panel InformationOrdered By: Dr. Malik on 01-10-2023 Valproic Acid (Depakene) Level 80 ug/mL 50-100 [facility] Estimated Creatinine Clearance Calc 66.19 ml/min [facility] Estimated GFR (MDRD) Amer 122 mL/min >60 [facility] Comment on above: GFR Calc Estimated GFR (MDRD) Non-Af Amer 101 mL/min >60 [facility] Comment on above: Non- GFR Calc Troponin I High Sensitivity 6 pg/mL 3.0-78.0 [facility] Comment on above: Please Note: New Janice t Units and Gender Specific Reference Ranges. For more information see Policy Stat Procedure [place] High Sensitivity Troponin (TNIH) and attachments. Platelets bldOrdered By: Dr. Malik on 01-10-2023 Platelets (Bld) [#/Vol] 168 10*3/uL 150-450 [facility] Protein Test strip Ql (U)Ord ered By: Dr. Malik on 01-10-2023 Protein Ql (U) 15 mg/dl Negative [facility] Serum or plasma calcium minda urement (mass/volume)Ordered By: Dr. Malik on 01-10-2023 Calcium [Mass/Vol] 9.0 mg/dL 8.5-10.1 [facility] Serum or plasma creatinine m easurement (mass/volume)Ordered By: Dr. Malik on 01-10-2023 Creatinine [Mass/Vol] 0.80 mg/dL 0.70-1.30 [facility] Comment on above: The validity of the calculated GFR & GFRAA in patients over 70 years has not been determined. Clinical correlation is essential. Serum or plasma urea nitroge n measurement (mass/volume)Ordered By: Dr. Malik on 01-10-2023 Urea nitrogen [Mass/Vol] 12 mg/dL 7-18 [facility] Squamous epithelial cells de tection in urine sediment by light microscopyOrdered By: Dr. Malik on 01-10-2023 Epithelial cells.squamous LM Ql (Urine sed) 0 SEEN /hpf 0-5 [facility] Thin prep Papanicolaou smear with manual screeningOrdered By: Dr. Malik on 01-10-2023 Thin prep Papanicolaou smear with manual screening 5 5-15 [facility] Urine blood detectionOrdered By: Dr. Malik on 01-10-2023 RBC Ql (U) 25 /ul Negative [facility] RBC Ql (U) 0 SEEN /hpf 0-5 [facility] Urine clarityOrdered By: Dr. Malik on 01-10-2023 Clarity (U) Clear Clear [facility] Urine color determinationOrd ered By: Dr. Malik on 01-10-2023 Color (U) Yellow Yellow [facility] Urine glucose detectionOrder ed By: Dr. Malik on 01-10-2023 Glucose Ql (U) Normal mg/dl Normal [facility] Urine leukocyte esterase det ection by dipstickOrdered By: Dr. Malik on 01-10-2023 Leukocyte esterase Test strip Ql (U) Negative Negative [facility] Urine pHOrdered By: Dr. Binta smith on 01-10-2023 pH (U) 6.0 [pH] 5.0 - 8.0 [facility] Urine sediment bacteria coun t by microscopy (number/high power field)Ordered By: Dr. Malik on 01-10-2023 Bacteria LM.HPF (Urine sed) [#/Area] 0 /[HPF] None Seen [facility] Urine specific gravity measu rementOrdered By: Dr. Malik on 01-10-2023 Specific gravity (U) [Rel density] 1.015 1.002-1.03 0 [facility] Urobilinogen Auto test strip Ql (U)Ordered By: Dr. Malik on 01-10-2023 Urobilinogen Ql (U) Normal mg/dl Normal [facility] Ammonia Plas-sCncon 01-10-20 Ammonia (P) [Moles/Vol] 35 umol/L Normal 16-60 [facility] Comment on above: Order Comment: Speci men Type: BLOOD SPECIMEN Ordering Facility: [facility] Address: [address] [place] [id number] Performed By: #### 1 6362-6 #### [facility] CLIA [id number] [address] [place] [id number] [facility] CASE MANAGEMon 01-09-2023 CASE MANAGEM HNO ID: [id number] Author: ALYSSA Humphreys Service: ? Author Type: Ui Developer Designer Type: Care Mgt Progress Note Filed: 01/09/2023 2:41 PM Note Text: CARE MANAGEMENT DISCHARGE NOTE SERVICE DATE: 01/09/2023 SERVICE TIME: 2:31 PM LOS: 1 day Patient discharging back to [facility] in [place]. Patient to be picked up at 9pm. Packet completed and updated nurse. Faxed information to facility. Sw left message for family. Sw made phone call to home care [facility] and they will continue services with patient. Requested a home care order to physician. Will fax discharge orders and f2f once received. . Summary of care completed. SIGNATURE: ALYSSA Humphreys PATIENT NAME: Anjel Ross DATE: January 09, 2023 TIME: 2:31 PM PAGER/CONTACT #: [phone] [facility] 01-09-2023 [facility] HNO ID: [id number] Author: Lorene Ortiz MD Service: Hospital Medicine Author Type: Physician Type: Discharge Summary Filed: 01/09/2023 11:55 AM Note Text: DISCHARGE SUMMARY PATIENT NAME: Anjel Ross ADMISSION DATE: 01/07/2023 DISCHARGE DATE: 01/09/2023 ATTENDING PHYSICIAN: Lorene Ortiz MD Code Status: Not on file Highest Readmission Risk Score: 20 The 30 day readmissions risk score is derived from an internally validated risk model which evaluates patient level characteristics, utilization history, medication orders and lab results up until the day of discharge. Patients with a score of 40 or above are considered highest risk for readmission. Specific patient level drivers will be listed at the bottom of the summary. CONSULTING TEAMS DURING HOSPITALIZATION: Neurology: Neurosurgery Treatment Team: Attending Provider: Lorene Ortiz MD Primary Service: [facility] Attending: Keron Dewey MD Consulting: Micheline Huber I, MD REASON FOR HOSPITALIZATION: Fall DIAGNOSIS: Principal Problem: Unsteady gait POA: Yes Active Problems: Mixed hyperlipidemia POA: Yes Essential hypertension POA: Yes Generalized convulsive epilepsy (HCC) POA: Yes Schizoaffective disorder, chronic condition (HCC) POA: Yes Hypothyroid POA: Yes Obesity (BMI 30.0-34.9) POA: Yes Elevated anticonvulsant drug level POA: Yes Resolved Problems: * No resolved hospital problems. * OPERATIONS DURING HOSPITALIZATION: None PROCEDURES DURING HOSPITALIZATION: EKG and CT lumbar HOSPITAL COURSE: Anjel Ross is a 72 year old with PMH of CAD, hypothyroidism, HLD, H/L colon cancer stage II s/p resection, seizures on Depakote, HTN, and KYA He was admitted to [facility] 5 days prior due to weakness and unsteady gait. He had a fall on the day of admission. No focal neurologic deficits. CT indicated possible NPH. Teleneurologist advised transfer for neurology consult +/- LP. Neurology at evaluated. Found to have supratherapeutic levels of Depakote and that could explain the unsteady gait and weakness. No concern for NPH. Patient should be on Keppra 1500 mg twice daily and valproic acid 1000 mg 3 times daily. Patient had low back pain and lumbar x-ray, showed an compression L1 fracture that was evaluated and CT lumbar confirmed it was a remote L1 fracture with minimal retropulsion. Pain was tolerable Tylenol. PT/OT evaluated patient okay to go home with home PT/OT. To follow-up with PCP and epilepsy clinic. No changes to home medications were made at this admission. Transitions of Care Critical Issues: Follow-up with PCP for management of osteoporosis and neurology for management of epilepsy LABS AND PROCEDURES PENDING AT DISCHARGE: No pending results. PATIENT CONDITION AT DISCHARGE: Stable DISCHARGE DISPOSITION: Home with Home Health Discharge Physical Exam: VITAL SIGNS: BP 127/62 Pulse 97 Temp 36.5 ?C (97.7 ?F) (Oral) Resp 18 Ht 160 cm (5' 3") Wt 89.2 kg (196 lb 10.4 oz) SpO2 97% BMI 34.84 kg/m? GENERAL: Alert, no distress, cooperative DIET: Resume pre-hospital diet ACTIVITY: Resume pre-hospital activity ALLERGIES Allergen Reactions Asa [Salicylates] Nickel Rash Trileptal [Oxcarbaz* DISCHARGE MEDICATION: Current Discharge Medication List CONTINUE these medications which have NOT CHANGED valproic acid (DEPAKENE) 1,000 mg Take 1,000 mg by mouth three times daily. Qty: 1800 mL Refills: 5 OLANZapine (ZYPREXA) 10 mg Take 10 mg by mouth daily at bedtime. levETIRAcetam (KEPPRA) 750 mg tablet 2 TABLETS (1,500MG) BY MOUTH 2 TIMES A DAY DX: / NURSE TO REORDER Qty: 120 tablet Refills: 5 spironolactone (ALDACTONE) 25 mg Take 25 mg by mouth every other day. alendronate (FOSAMAX) 70 mg Take 70 mg by mouth one time a week. magnesium oxide (MAG-OX) 400 mg Take 400 mg by mouth daily at bedtime. venlafaxine ER (EFFEXOR XR) 150 mg Take 150 mg by mouth once daily. Take Effexor XR 150 mg with Effexor XR 37.5 mg daily Qty: 90 capsule Refills: 0 ascorbic acid (vitamin C) (VITAMIN C) 500 mg Take 500 mg by mouth daily with lunch. montelukast (SINGULAIR) 10 mg Take 10 mg by mouth daily at bedtime. loratadine (CLARITIN) 10 mg Take 10 mg by mouth daily at bedtime. pantoprazole DR (PROTONIX) 40 mg Take 40 mg by mouth once daily. cholecalciferol (VITAMIN D3) 2,000 Units Take 2,000 Units by mouth once daily. bumetanide (BUMEX) 2 mg Take 2 mg by mouth once daily. Qty: 30 tablet Refills: 6 finasteride (PROSCAR) 5 mg Take 5 mg by mouth once daily. Refills: 0 clopidogrel (PLAVIX) 75 mg Take 75 mg by mouth once daily. Qty: 90 tablet Refills: 3 atorvastatin (LIPITOR) 40 mg Take 40 mg by mouth once daily. Qty: 90 tablet Refills: 3 potassium chloride (KLOR-CON) 20 mEq Take 20 mEq by mouth twice daily. allopurinol (ZYLOPRIM) 100 mg Take 100 mg by mouth once daily. For gout. Qty: 30 tablet (more content not included)... Normal [facility] NURSING PROGon 01-09-2023 NURSING PROG HNO ID: [id number] Author: Anitha Burnette RN Service: Nursing Author Type: Registered Nurse Type: Nursing Progress Note Filed: 01/09/2023 12:24 PM Note Text: Patient being discharged back to [facility]. Patient agreeable. Updated and informed facility of patient's return. Normal [facility] Valproate SerPl-mCncon 01-09 Valproate [Mass/Vol] 80.8 ug/mL Normal 50.0-100.0 [facility] Comment on above: Order Comment: Speci men Type: BLOOD SPECIMEN Ordering Facility: [facility] Address: [place] [address] Result Comment: Refe rence ranges and high/low indicator flags are provided as general guidelines only. The treating physician must determine appropriate target levels/dosing based on the specific clinical situation. Performed By: #### 4 086-5 #### [facility] CLIA [id number] [address] ALLIED HEALTHon 01-08-2023 ALLIED HEALTH HNO ID: [id number] Author: RT Vivian(R) Service: Radiology Author Type: Technologist Type: Allied Health Filed: 01/08/2023 1:17 PM Note Text: Radiology Service Progress Note PATIENT NAME: Anjel Ross DATE OF SERVICE: January 08, 2023 TIME: 1:16 PM PATIENT IDENTITY VERIFICATION COMPLETED USING TWO (2) IDENTIFIERS: Name and Date of confirmed by patient verbally and Name and Date of confirmed by identification band. FALL SCREENING: Has the patient had 2 falls in the last year or 1 fall with injury or currently using an Ambulatory Assistive Device (Walker, Cane, Wheelchair, Crutches, etc.)? Inpatient: Screened on floor PATIENT GENDER DATA: Male PATIENT RELEVANT IMPLANT DATA REVIEWED: Not Applicable RADIOLOGY DEPARTMENT: General X-ray: Exam(s) Completed: Spine X-Ray(s): Thoracic and Lumbar AP / LAT / L5-S1 PERIPHERAL IV DATA: Not applicable SIGNED BY: RT Vivian(R) January 08, 2023 1:16 PM Normal [facility] CASE MGT INIT ASSESon 2022 CASE MGT INIT ASS HNO ID: [id number] Author: LAYNE Lozano Service: Social Work Author Type: Ui Developer Designer Type: Care Mgt Initial Assessment Filed: 01/08/2023 4:14 PM Note Text: CARE MANAGEMENT: ASSESSMENT AND DISCHARGE PLAN SERVICE DATE: January 08, 2023 SERVICE TIME: 3:39 PM PCP: Maddie Cantor DO Primary Contact: Extended Emergency Contact Information Primary Emergency Contact: Cha Cantor Mobile Relation: Sister Secondary Emergency Contact: Pj conti Mobile Relation: Relative Admission Status: Inpatient Insurance Provider: [facility] DUAL COMPLETE HMO POS SNP Discharge Planning requested by: Per Department Practice Potential Transition Plans Advance Directives Current Advance Directive: Health Care Power of Finishing Pan Operator In Chart: Yes Up To Date and Valid: Yes Current Living Arrangements and Support Lives with: ([facility] Type of Residence: Assisted Living Facility Does the patient have to climb stairs at home?: No Support: Other: See Comment COLLETTE jay, Drea Conti How do you manage to accomplish the following: Needs Assistance: Ambulation;Bathe/Shower;Dres s;Meals/Meal Prep;Going to the bathroom;Medication Management;Transportation to appointments/community Current Services/Equipment Current Post-Acute Service(s): Skilled Home Care Discharge Planning Patient Goal(s): Other: See Comment Patient's Other Post-Acute Care Goal(s): to return to Assisted living [place] [facility] Explained: [place] [facility] Given: Yes Level of Care Discussed: Home Care Are you interested in bedside delivery of your medications? No Discharge Planning Participant(s): Patient Patient/Family Comments: Caregiver Assessment: Caregiver is ready, willing and able to meet the patient's needs as recommended by the inter-professional team: Yes Name of Caregiver: in from [facility] Transport at Discharge: Transportation Arrangements: Ambulette Type of Service: BLS Non-emergency Is Patient Medicaid Pending?: No Was transportation financial coverage discussed with family?: No Hand Cultivator Location: [facility] Care Management Responsibility: None Needs Prior to Discharge: Needs Prior to Discharge: Discharge Transportation;Home Care Order Post-Acute Discharge Plan: Met with pt who presents as lethargic. Is in from [facility] in [place]. Plan is to return. HORSES OR MULES TEAMSTER ambulated with walker. PT and OT recommend home PT. Pt with no preference for home health agency. With pt's consent, contacted [facility] for agency they use. Referral sent to [facility]. Will need transport back to [facility] w/c ambulette. Per , pt now with lumbar fx. Await return call from pt's [facility] - niDrea roberto [phone] to update. SIGNATURE: LAYNE Lozano PATIENT NAME: Anjel Ross DATE: January 08, 2023 TIME: 3:39 PM CONTACT #: [phone] Normal [facility] CBC W Auto Differential pane l (Bld)on 01-08-2023 Basophils (Bld) [#/Vol] 0.05 10*3/uL Normal <0.11 [facility] Comment on above: Order Comment: Speci men Type: BLOOD SPECIMEN Ordering Facility: [facility] Address: [address] [place] [address] Performed By: #### 5 7021-8 #### [facility] CLIA [id number] 1 [place] [address] [place] Basophils/100 WBC (Bld) 0.6 % Normal [facility] Comment on above: Order Comment: Speci men Type: BLOOD SPECIMEN Ordering Facility: [facility] Address: [address] [address] Performed By: #### 5 7021-8 #### [facility] CLIA [id number] 1 [place] [address] [place] Differential cell count method Nom (Bld) Auto Normal [facility] Comment on above: Order Comment: Speci men Type: BLOOD SPECIMEN Ordering Facility: [facility] Address: [address] [address] Performed By: #### 5 7021-8 #### [facility] CLIA [id number] [address] [place] [address] [place] Eosinophils (Bld) [#/Vol] 0.18 10*3/uL Normal <0.46 [facility] Comment on above: Order Comment: Speci men Type: BLOOD SPECIMEN Ordering Facility: [facility] Address: [address] [address] Performed By: #### 5 7021-8 #### [facility] CLIA [id number] [address] Eosinophils/100 WBC (Bld) 2.0 % Normal [facility] Comment on above: Order Comment: Speci men Type: BLOOD SPECIMEN Ordering Facility: [facility] Address: [address] [place] [address] Performed By: #### 5 7021-8 #### [facility] CLIA [id number] [address] [place] Erythrocyte distribution width (RBC) [Ratio] 12.9 % Normal 11.5-15.0 [facility] Comment on above: Order Comment: Speci men Type: BLOOD SPECIMEN Ordering Facility: [facility] Address: [address] [place] [address] Performed By: #### 5 7021-8 #### [facility] CLIA [id number] [address] Hematocrit (Bld) [Volume fraction] 40.2 % Normal 39.0-51.0 [facility] Comment on above: Order Comment: Speci men Type: BLOOD SPECIMEN Ordering Facility: [facility] Address: [address] [place] [address] Performed By: #### 5 7021-8 #### [facility] CLIA [id number] [address] [place] Hemoglobin (Bld) [Mass/Vol] 13.1 g/dL Normal 13.0-17.0 [facility] Comment on above: Order Comment: Speci men Type: BLOOD SPECIMEN Ordering Facility: [facility] Address: [address] [place] [address] Performed By: #### 5 7021-8 #### [facility] CLIA [id number] [address] [place] Immature granulocytes (Bld) [#/Vol] 0.10 10*3/uL High <0.10 [facility] Comment on above: Order Comment: Speci men Type: BLOOD SPECIMEN Ordering Facility: [facility] Address: [address] [place] [address] Performed By: #### 5 7021-8 #### [facility] CLIA [id number] [address] Immature granulocytes/100 WBC (Bld) 1.1 % Normal [facility] Comment on above: Order Comment: Speci men Type: BLOOD SPECIMEN Ordering Facility: [facility] Address: [address] [place] [address] Performed By: #### 5 7021-8 #### [facility] CLIA [id number] [address] Lymphocytes (Bld) [#/Vol] 2.81 10*3/uL Normal 1.00-4.00 [facility] Comment on above: Order Comment: Speci men Type: BLOOD SPECIMEN Ordering Facility: [facility] Address: [address] [place] [address] Performed By: #### 5 7021-8 #### [facility] CLIA [id number] [address] Lymphocytes/100 WBC (Bld) 31.6 % Normal [facility] Comment on above: Order Comment: Speci men Type: BLOOD SPECIMEN Ordering Facility: [facility] Address: [address] [place] [address] Performed By: #### 5 7021-8 #### [facility] CLIA [id number] [address] MCH (RBC) [Entitic mass] 32.7 pg Normal 26.0-34.0 [facility] Comment on above: Order Comment: Speci men Type: BLOOD SPECIMEN Ordering Facility: [facility] Address: [address] [place] [address] Performed By: #### 5 7021-8 #### [facility] CLIA [id number] [address] MCHC (RBC) [Mass/Vol] 32.6 g/dL Normal 30.5-36.0 [facility] Comment on above: Order Comment: Speci men Type: BLOOD SPECIMEN Ordering Facility: [facility] Address: [address] [address] Performed By: #### 5 7021-8 #### [facility] CLIA [id number] [address] MCV (RBC) [Entitic vol] 100.2 fL High 80.0-100.0 [facility] Comment on above: Order Comment: Speci men Type: BLOOD SPECIMEN Ordering Facility: [facility] Address: [address] [place] [address] Performed By: #### 5 7021-8 #### [facility] CLIA [id number] [address] [place] Monocytes (Bld) [#/Vol] 1.06 10*3/uL High <0.87 [facility] Comment on above: Order Comment: Speci men Type: BLOOD SPECIMEN Ordering Facility: [facility] Address: [address] [place] [address] Performed By: #### 5 7021-8 #### [facility] CLIA [id number] [address] Monocytes/100 WBC (Bld) 11.9 % Normal [facility] Comment on above: Order Comment: Speci men Type: BLOOD SPECIMEN Ordering Facility: [facility] Address: [address] [place] [address] Performed By: #### 5 7021-8 #### [facility] CLIA [id number] [address] [place] Neutrophils (Bld) [#/Vol] 4.70 10*3/uL Normal 1.45-7.50 [facility] Comment on above: Order Comment: Speci men Type: BLOOD SPECIMEN Ordering Facility: [facility] Address: [address] [place] [address] Performed By: #### 5 7021-8 #### [facility] CLIA [id number] [address] [place] Neutrophils/100 WBC (Bld) 52.8 % Normal [facility] Comment on above: Order Comment: Speci men Type: BLOOD SPECIMEN Ordering Facility: [facility] Address: [address] [address] Performed By: #### 5 7021-8 #### [facility] CLIA [id number] [address] Nucleated RBC (Bld) [#/Vol] 10*3/uL Normal <0.01 [facility] Comment on above: Order Comment: Speci men Type: BLOOD SPECIMEN Ordering Facility: [facility] Address: [address] [address] Performed By: #### 5 7021-8 #### [facility] CLIA [id number] [address] Nucleated RBC/100 WBC (Bld) [Ratio] 0.0 /100 WBC Normal [facility] Comment on above: Order Comment: Speci men Type: BLOOD SPECIMEN Ordering Facility: [facility] Address: [address] [address] Performed By: #### 5 7021-8 #### [facility] CLIA [id number] [address] Platelet mean volume (Bld) [Entitic vol] 8.5 fL Low 9.0-12.7 [facility] Comment on above: Order Comment: Speci men Type: BLOOD SPECIMEN Ordering Facility: [facility] Address: [address] [address] Performed By: #### 5 7021-8 #### [facility] CLIA [id number] [address] [place] Platelets (Bld) [#/Vol] 160 10*3/uL Normal 150-400 [facility] Comment on above: Order Comment: Speci men Type: BLOOD SPECIMEN Ordering Facility: [facility] Address: [address] [address] Performed By: #### 5 7021-8 #### [facility] CLIA [id number] [address] [place] [address] RBC (Bld) [#/Vol] 4.01 10*6/uL Low 4.20-6.00 [facility] Comment on above: Order Comment: Devendra krishnamurthy Type: BLOOD SPECIMEN Ordering Facility: [facility] Address: [address] [place] [address] Performed By: #### 5 7021-8 #### [facility] CLIA [id number] [address] WBC (Bld) [#/Vol] 8.90 10*3/uL Normal 3.70-11.00 [facility] Comment on above: Order Comment: Devendra krishnamurthy Type: BLOOD SPECIMEN Ordering Facility: [facility] Address: [address] [place] [address] Performed By: #### 5 7021-8 #### [facility] CLIA [id number] [address] CONSULTon 01-08-2023 CONSULT HNO ID: [id number] Author: Mann Waggoner APRN.COSMETIC CONSULTANT Service: Neurosurgery Author Type: Nurse Practitioner Type: Consults Filed: 01/08/2023 5:45 PM Note Text: Attestation signed by Lourdes Quiroz MD, PhD at 01/09/2023 12:48 PM Attending Note I have personally performed a face to face assessment of the patient on 01/09/23 and have reviewed the ABIGAIL note. I performed a substantive portion of the visit including all aspects of the following. The patient denies any back pain. He has mild right hip pain. He moves all extremities with symmetric strength. CT L-spine demonstrated a chronic compression fracture of L1. No neurosurgical intervention necessary. No brace necessary. No follow up necessary. Signature: Lourdes Quiroz MD, PhD Date: 01/09/2023 Time: 12:47 PM CONSULT: NEUROSURGERY SERVICE Patient Name: Anjel Ross Date of : 1950 SERVICE DATE: 01/08/2023 SERVICE TIME: 4:05 PM REASON FOR CONSULT: L1 compression fracture REQUESTING PHYSICIAN: Diana PRIMARY CARE PHYSICIAN: Maddie Cantor, DO Consultation requested by Dr. Ortiz for an opinion regarding L1 compression fracture. My final recommendations will be communicated back to the requesting physician by way of shared Medical record or letter to requesting physician via US mail. CHIEF COMPLAINT: progressive weakness HISTORY OF PRESENT ILLNESS : The patient is a 72 year old male transferred from [facility] with concerns for NPH.The patient currently lives in an assisted living facility with a PMH of CAD, hypothyroidism, HLD, H/L colon cancer stage II, seizures HTN and KYA. He reports that he has had difficulty with his gait and recently had a fall. After his fall he reports some back pain but nothing worse than his normal chronic back pain. He denies any significant urinary incontinence or new numbness or tingling. He has a significant history of seizures and takes VPA and had abnormal levels on admission. Currently denies chest pain, shortness of breath or dizziness. PAST MEDICAL HISTORY Diagnosis Date Anemia Black stools started 03/11/15 Coronary artery disease Hypertrophy of prostate Hypothyroid Organic brain syndrome Osteoarthritis Osteopenia Other and unspecified hyperlipidemia Personal history of colon cancer Seizures (HCC) Unspecified essential hypertension 11/06/2005 PAST SURGICAL HISTORY Procedure Laterality Date CIRCUMCISION AGE >28 DAYS AGE 6 COLONOSCOPY 07/06/2022 COLONOSCOPY FLX DX W/COLLJ SPEC WHEN PFRMD 09/11/2005 Colonoscopy COLONOSCOPY FLX DX W/COLLJ SPEC WHEN PFRMD 12/06/2014 Colonoscopy COLONOSCOPY FLX DX W/COLLJ SPEC WHEN PFRMD 03/25/2016 Colonoscopy outpt [facility] COLSC FLX W/REMOVAL LESION BY HOT BX FORCEPS 03/26/2017 ESOPHAGOGASTRODUODENOSCOPY TRANSORAL DIAGNOSTIC 11/22/2014 EGD ESOPHAGOGASTRODUODENOSCOPY TRANSORAL DIAGNOSTIC 12/06/2014 EGD HEMIARTHROPLASTY HIP PARTIAL 90s Hip replacement, partial Rt LAPAROSCOPY SURG CHOLECYSTECTOMY 01/21/2015 WITH COLON LAPS COLECTOMY PRTL W/RMVL TERMINAL ILEUM 01/21/2015 PAST SURGICAL HISTORY OF ORTHOPEDIC ON KNEES FAMILY HISTORY Problem Relation Age of Onset Heart Mother SJORGENS, ANGIOPLASTY, ASHD Cancer Father LUNG Heart Father OR X 3 Heart Maternal Aunt OR Diabetes Maternal Aunt other (EPILEPSY) Paternal Grandfather ALLERGIES Allergen Reactions Asa [Salicylates] Nickel Rash Trileptal [Oxcarbaz* Current Facility-Administered Medications Medication Dose Route Frequency Provider Last Rate Last Admin sucralfate 1 g tab(s) (CARAFATE) 1 g ORAL TID w MEALS Keron Dewey MD 1 g at 01/08/23 1247 levETIRAcetam (KEPPRA) tab(s) 1,500 mg 1,500 mg ORAL BID Keron Dewey MD 1,500 mg at 01/08/23 0857 pregabalin 200 mg cap(s) (LYRICA) 200 mg ORAL TID Keron Dewey MD 200 mg at 01/08/23 1247 valproic acid 1,000 mg CUP (DEPAKENE) 1,000 mg ORAL TID Keron Dewey MD 1,000 mg at 01/08/23 1247 atorvastatin 40 mg tab(s) (LIPITOR) 40 mg ORAL DAILY Keron Dewey MD 40 mg at 01/08/23 0857 OLANZapine 7.5 mg tab(s) (ZYPREXA) 7.5 mg ORAL AT BEDTIME Keron Dewey MD finasteride 5 mg tab(s) (PROSCAR) 5 mg ORAL DAILY Keron Dewey MD 5 mg at 01/08/23 0858 allopurinol 100 mg tab(s) (ZYLOPRIM) 100 mg ORAL AT BEDTIME Keron Dewey MD montelukast 10 mg tab(s) (SINGULAIR) 10 mg ORAL AT BEDTIME Keron Dewey MD bumetanide 2 mg tab(s) (BUMEX) 2 mg ORAL DAILY Keron Dewey MD 2 mg at 01/08/23 0858 bethanechol 25 mg tab(s) (URECHOLINE) 25 mg ORAL TID Keron Dewey MD 25 mg at 01/08/23 1247 spironolactone 25 mg tab(s) (ALDACTONE) 25 mg ORAL DAILY Keron Dewey MD 25 mg at 01/08/[address] 40 mg tab(s) (PROTONIX) 40 mg ORAL DAILY Keron Dewey MD 40 mg (more content not included)... Normal [facility] CONSULT HNO ID: [id number] Author: Chino Gerber DO Service: Neurology General Author Type: Resident Type: Consults Filed: 01/08/2023 3:17 PM Note Text: Attestation signed by Adán De MD at 01/11/2023 11:39 AM Staff Addendum: I have seen the patient, performed a neurological examination and reviewed the records personally with the resident/midlevel above and agree with the documentation. Please see my separate note under 'plan of care'. Adán De MD Staff Neurologist Neurology INITIAL CONSULT NOTE SERVICE DATE: 01/08/2023 SERVICE TIME: 8:59 AM REASON FOR CONSULT: Ataxia (concerning for NPH) REQUESTING PHYSICIAN: Dr. Dewey PRIMARY CARE PHYSICIAN: Maddie Cantor DO Subjective Mr. oRss is a 72 year old male with a past medical history significant for anemia, CAD, hypothyroidism, HLD, colon cancer, seizures, hypertension, KYA, who was initially admitted to [facility] 5 days ago with generalized weakness, unsteady gait and fall without focal deficits. During that hospital stay CT brain was concerning for possible NPH. Subsequently, telemetry neurologist recommended patient to be transferred for neurology consult and LP and MRI brain/spine with and without contrast. Patient admitted to [facility] on 01/08 with differential diagnosis of unsteady gait secondary to NPH, and chronic diagnosis of seizures, hypothyroidism hyperlipidemia. Home medications continued including antiepileptic, spironolactone, venlafaxine, and Bumex. On further review of documents patient appears to be on additional amount on Valproic acid from previously documented by neurology. On my evaluation, the patient is resting in the recliner in no apparent distress. He verifies the history above and in addition, states that he fell forward and since then has had difficulty ambulating. PAST MEDICAL HISTORY Diagnosis Date Anemia Black stools started 03/11/15 Coronary artery disease Hypertrophy of prostate Hypothyroid Organic brain syndrome Osteoarthritis Osteopenia Other and unspecified hyperlipidemia Personal history of colon cancer Seizures (HCC) Unspecified essential hypertension 11/06/2005 PAST SURGICAL HISTORY Procedure Laterality Date CIRCUMCISION AGE >28 DAYS AGE 6 COLONOSCOPY 07/06/2022 COLONOSCOPY FLX DX W/COLLJ SPEC WHEN PFRMD 09/11/2005 Colonoscopy COLONOSCOPY FLX DX W/COLLJ SPEC WHEN PFRMD 12/06/2014 Colonoscopy COLONOSCOPY FLX DX W/COLLJ SPEC WHEN PFRMD 03/25/2016 Colonoscopy outpt [facility] COLSC FLX W/REMOVAL LESION BY HOT BX FORCEPS 03/26/2017 ESOPHAGOGASTRODUODENOSCOPY TRANSORAL DIAGNOSTIC 11/22/2014 EGD ESOPHAGOGASTRODUODENOSCOPY TRANSORAL DIAGNOSTIC 12/06/2014 EGD HEMIARTHROPLASTY HIP PARTIAL 90s Hip replacement, partial Rt LAPAROSCOPY SURG CHOLECYSTECTOMY 01/21/2015 WITH COLON LAPS COLECTOMY PRTL W/RMVL TERMINAL ILEUM 01/21/2015 PAST SURGICAL HISTORY OF ORTHOPEDIC ON KNEES FAMILY HISTORY Problem Relation Age of Onset Heart Mother SJORGENS, ANGIOPLASTY, ASHD Cancer Father LUNG Heart Father OR X 3 Heart Maternal Aunt OR Diabetes Maternal Aunt other (EPILEPSY) Paternal Grandfather Social History Tobacco Use Smoking status: Never Smokeless tobacco: Never Vaping Use Vaping Use: Never used Substance Use Topics Alcohol use: No Drug use: No valproic acid (DEPAKENE) 250 mg/5 mL syrup, Take 20 mL by mouth three times daily., Disp: 1800 mL, Rfl: 5 levothyroxine (SYNTHROID) 75 mcg tablet, Take 75 mcg by mouth daily before breakfast., Disp: , Rfl: OLANZapine (ZYPREXA) 10 mg tablet, Take 10 mg by mouth daily at bedtime., Disp: , Rfl: levETIRAcetam (KEPPRA) 750 mg tablet, 2 TABLETS (1,500MG) BY MOUTH 2 TIMES A DAY DX: / NURSE TO REORDER, Disp: 120 tablet, Rfl: 5 spironolactone (ALDACTONE) 25 mg tablet, Take 1 tablet by mouth every other day., Disp: , Rfl: spironolactone (ALDACTONE) 50 mg tablet, Take 50 mg by mouth every 48 hours. alternating with 25 mg tablets, Disp: , Rfl: alendronate (FOSAMAX) 70 mg tablet, Take 70 mg by mouth one time a week., Disp: , Rfl: magnesium oxide (MAG-OX) 400 mg (241.3 mg magnesium) tablet, Take 400 mg by mouth daily at bedtime., Disp: , Rfl: venlafaxine ER (EFFEXOR XR) 150 mg 24 hr capsule, Take 1 capsule by mouth once daily. Take Effexor XR 150 mg with Effexor XR 37.5 mg daily, Disp: 90 capsule, Rfl: 0 ascorbic acid, vitamin C, (VITAMIN C) 500 mg tablet, Take 500 mg by mouth daily with lunch., Disp: , Rfl: montelukast (SINGULAIR) 10 mg tablet, Take 10 mg by mouth daily at bedtime., Disp: , Rfl: loratadine (CLARITIN) 10 mg tablet, Take 10 mg by mouth daily at bedtime., Disp: , Rfl: pantoprazole DR (PROTONIX) 40 mg tablet, Take 40 mg by mouth once daily., Disp: , Rfl: bethanechol (URECHOLINE) 25 mg tablet (more content not included)... Normal [facility] CT LUMBAR SPINE WO IVCONon 0 01-08-2023 CT LUMBAR SPINE WO IVCON * * *Final Report* * * DATE OF EXAM: Jan 08 2023 4:50PM [facility] 0508 - CT LUMBAR SPINE WO IVCON / PROCEDURE REASON: Spine fracture, lumbar, traumatic * * * * Physician Interpretation * * * * EXAMINATION: CT LUMBAR SPINE WO IVCON CLINICAL HISTORY: Spine fracture, lumbar, traumatic TECHNIQUE: Spiral, high resolution axial unenhanced images were obtained from the thoracolumbar junction to the sacrum with sagittal and coronal planar reconstructions. MQ: [id number] CT Radiation dose: Integrated Dose-Length Product (DLP) for this visit = 877 mGy*cm. CT Dose Reduction Employed: Automated exposure control (AEC) COMPARISON: Lumbar radiographs 01/08/2023 RESULT: Counting reference: Lumbosacral junction. For the purposes of this report, L4-5 is considered the level of the iliac crest and assume there are 5 lumbar-type vertebrae. Anatomic variant: None. Bull Wheel Worker (topogram) images: Right hip arthroplasty. Alignment: S-shaped scoliosis with apex dextrocurvature at L1 and compensatory levocurvature at L5. Bone marrow /fracture: No evidence of a lytic or blastic process in the visualized spine. Remote appearing severe L1 compression fracture with 70% central height loss. Minimal retropulsion. Multilevel endplate degenerative changes with severe disc space narrowing at L5-S1 and moderate at L4-L5. Multilevel disc vacuum phenomenon. Paraspinal soft tissues: Mild right psoas atrophy secondary to scoliosis. Mild fatty atrophy of the lower posterior paraspinal musculature. Lower thoracic spine: The visualized lower thoracic bony canal and foramina are patent. L1-L2: Mild spinal canal stenosis secondary to minimal retropulsion and dorsal endplate osteophytic spurring. Mild degenerative facet arthrosis. Moderate left and no significant right foraminal stenosis. L2-L3: Spinal canal is patent. Shallow left eccentric annular disc bulging. Mild degenerative facet arthrosis. Mild left subarticular zone effacement. Mild left and no significant right foraminal stenosis. L3-L4: Moderate spinal canal stenosis secondary to disc bulging and hypertrophic degenerative facet arthrosis and rotatory changes. Moderate effacement of the subarticular zones. Moderate right and no significant left foraminal stenosis. L4-L5: Mild to moderate spinal canal stenosis secondary to disc bulging and suggestive of a superimposed left central extrusion. Mild degenerative facet arthrosis. Moderate right and no significant left foraminal stenosis. L5-S1: Spinal canal is patent. Shallow annular disc bulging. Moderate degenerative facet arthrosis. Severe right and mild to moderate left foraminal stenosis. Sacrum and iliac wings: The visualized sacrum and iliac wings are within normal limits. Mild degenerative changes of the sacroiliac joints with joint vacuum phenomenon. IMPRESSION: Remote severe L1 compression fracture with only minimal retropulsion and no significant spinal canal stenosis at this level. Lumbar spondylosis and scoliosis with up to moderate spinal canal stenosis at L3-L4 and L4-L5. Foraminal stenosis is most notable on the right at L5-S1 where it is severe in degree. Anatomic Lumbar Variant: None. L4-5 is considered the level of the iliac crest and assume there are 5 lumbar-type vertebrae. Lotteries Agent: PSCB Transcribe Date/Time: Jan 09 2023 9:56A Dictated by : NGUYỄN GILBERT DO This examination was interpreted and the report reviewed and electronically signed by: NGUYỄN GILBERT DO on Jan 09 2023 10:03AM EST [id number] Normal [facility] Comprehensive metabolic 2000 panelon 01-08-2023 Albumin [Mass/Vol] 3.2 g/dL Low 3.9-4.9 [facility] Comment on above: Order Comment: Devendra krishnamurthy Type: BLOOD SPECIMEN Ordering Facility: [facility] Address: [address] [place] [address] Performed By: #### 2 4323-8, , 3015-3 #### [facility] CLIA [id number] 1 [place] [address] [place] ALP [Catalytic activity/Vol] 58 U/L Normal 38-113 [facility] Comment on above: Order Comment: Devendra krishnamurthy Type: BLOOD SPECIMEN Ordering Facility: [facility] Address: [address] [place] [address] Performed By: #### 2 4323-8, , 3015-3 #### [facility] CLIA [id number] 1 [place] [address] [place] ALT With P-5'-P [Catalytic activity/Vol] 7 U/L Low 10-54 [facility] Comment on above: Order Comment: Devendra krishnamurthy Type: BLOOD SPECIMEN Ordering Facility: [facility] Address: [address] [address] Performed By: #### 2 4323-8, , 3015-3 #### [facility] CLIA [id number] [address] [place] Anion gap [Moles/Vol] 10 mmol/L Normal 9-18 [facility] Comment on above: Order Comment: Speci men Type: BLOOD SPECIMEN Ordering Facility: [facility] Address: [address] [place] [address] Performed By: #### 2 4323-8, 44015-9, 6-3 #### [facility] CLIA [id number] [address] [place] With P-5'-P [Catalytic activity/Vol] 15 U/L Normal 14-40 [facility] Comment on above: Order Comment: Speci men Type: BLOOD SPECIMEN Ordering Facility: [facility] Address: [address] [place] [address] Performed By: #### 2 4323-8, , 3015-3 #### [facility] CLIA [id number] [address] STATES OF [facility] Bilirubin [Mass/Vol] 0.3 mg/dL Normal 0.2-1.3 [facility] Comment on above: Order Comment: Speci men Type: BLOOD SPECIMEN Ordering Facility: [facility] Address: [address] [place] [address] Performed By: #### 2 4323-8, , 6-3 #### [facility] CLIA [id number] [address] [place] Calcium [Mass/Vol] 9.4 mg/dL Normal 8.5-10.2 [facility] Comment on above: Order Comment: Speci men Type: BLOOD SPECIMEN Ordering Facility: [facility] Address: [address] [place] [address] Performed By: #### 2 4323-8, , 6-3 #### [facility] CLIA [id number] [address] [place] Chloride [Moles/Vol] 104 mmol/L Normal 97-105 [facility] Comment on above: Order Comment: Speci men Type: BLOOD SPECIMEN Ordering Facility: [facility] Address: [address] [address] Performed By: #### 2 4323-8, , 3 #### [facility] CLIA [id number] [address] OF [facility] CO2 [Moles/Vol] 28 mmol/L Normal 22-30 [facility] Comment on above: Order Comment: Speci men Type: BLOOD SPECIMEN Ordering Facility: [facility] Address: [address] [address] Performed By: #### 2 4323-8, , 3015-12 #### [facility] CLIA [id number] [address] Creatinine [Mass/Vol] 0.65 mg/dL Low 0.73-1.22 [facility] Comment on above: Order Comment: Speci men Type: BLOOD SPECIMEN Ordering Facility: [facility] Address: [address] [place] [address] Performed By: #### 2 4323-8, , 3015-12 #### [facility] CLIA [id number] [address] [place] [address] ESTIMATED GLOMERULAR FILTRATION RATE 99 mL/min/1.73m??? Normal >=60 [facility] Comment on above: Order Comment: Speci men Type: BLOOD SPECIMEN Ordering Facility: [facility] Address: [address] [place] [address] Result Comment: Narda mated Glomerular Filtration Rate (eGFR) is calculated using the 2020 CKD-EPI creatinine equation. This equation utilizes serum creatinine, sex, and age as parameters. The creatinine assay has traceable calibration to isotope dilution-mass spectrometry. Refer to KDIGO guidelines for clinical interpretation. In patients with unstable renal function, e.g. those with acute kidney injury, the eGFR may not accurately reflect actual GFR. Performed By: #### 2 4323-8, , 3015-12 #### [facility] CLIA [id number] 1 [place] [address] [place] Glucose [Mass/Vol] 90 mg/dL Normal 74-99 [facility] Comment on above: Order Comment: Devendra krishnamurthy Type: BLOOD SPECIMEN Ordering Facility: [facility] Address: [address] [place] [address] Result Comment: The [place] Diabetes Association (ADA) provides guidance for cutoff values for fasting glucose and random glucose. The ADA defines fasting as no caloric intake for at least 8 hours. Fasting plasma glucose results between 100 to 125 mg/dL indicate increased risk for diabetes (prediabetes). Fasting plasma glucose results greater than or equal to 126 mg/dL meet the criteria for diagnosis of diabetes. In the absence of unequivocal hyperglycemia, results should be confirmed by repeat testing. In a patient with classic symptoms of hyperglycemia or hyperglycemic crisis, random plasma glucose results greater than or equal to 200 mg/dL meet the criteria for diagnosis of diabetes. Reference: Standards of Medical Care in Diabetes 2016, [place] [employer]. Diabetes Care. 2016.39(Suppl 1). Performed By: #### 2 4323-8, , 3015-3 #### [facility] CLIA [id number] 1 [place] [address] [place] Potassium [Moles/Vol] 3.8 mmol/L Normal 3.7-5.1 [facility] Comment on above: Order Comment: Devendra krishnamurthy Type: BLOOD SPECIMEN Ordering Facility: [facility] Address: [address] [place], [place] [id number] Performed By: #### 2 4323-8, , 3015-3 #### [facility] CLIA [id number] 1 [place] [address] [place] Protein [Mass/Vol] 5.6 g/dL Low 6.3-8.0 [facility] Comment on above: Order Comment: Devendra krishnamurthy Type: BLOOD SPECIMEN Ordering Facility: [facility] Address: [address] [place], [place] [id number] Performed By: #### 2 4323-8, , 6-3 #### [facility] CLIA [id number] [address] STATES OF [facility] Sodium [Moles/Vol] 142 mmol/L Normal 136-144 [facility] Comment on above: Order Comment: Speci men Type: BLOOD SPECIMEN Ordering Facility: [facility] Address: [address] [id number] Performed By: #### 2 4323-8, 29392-7, 3016-3 #### [facility] CLIA [id number] [address] [place] Urea nitrogen [Mass/Vol] 11 mg/dL Normal 9-24 [facility] Comment on above: Order Comment: Speci men Type: BLOOD SPECIMEN Ordering Facility: [facility] Address: [address] [address] Performed By: #### 2 4323-8, 15344-4, 6-3 #### [facility] CLIA [id number] [address] OF [facility] ECG COMPLETEon 01-08-2023 ECG COMPLETE Ventricular Rate : 8 7 BPM Atrial Rate : 87 BPM P-R Interval : 144 ms QRS Duration : 84 ms Q-T Interval : 352 ms QTC Calculation(Bazett) : 423 ms Calculated P [place] : 58 degrees Calculated R [place] : -45 degrees Calculated T [place] : 17 degrees NORMAL SINUS RHYTHM LEFT ANTERIOR FASCICULAR BLOCK MINIMAL VOLTAGE CRITERIA FOR LVH, MAY BE NORMAL VARIANT ( R in aVL ) POSSIBLE ANTEROLATERAL INFARCT , AGE UNDETERMINED ABNORMAL ECG WHEN COMPARED WITH ECG OF 08-SEP-2006 21:29, BORDERLINE CRITERIA FOR ANTEROLATERAL INFARCT ARE NOW PRESENT NONSPECIFIC T WAVE ABNORMALITY HAS REPLACED INVERTED T WAVES IN INFERIOR LEADS Confirmed by MD EMANI, ADRIAN ([id number]) on 01/08/2023 3:41:29 PM NAME : ANJEL ROSS PID : [id number] : 1950 Gender : Male Race : ORD : [id number] Procedure Date : Jan 08 2023 03:21:39 Edit Date : Jan 08 2023 15:41:32 Diagnosis: NORMAL SINUS RHYTHM LEFT ANTERIOR FASCICULAR BLOCK MINIMAL VOLTAGE CRITERIA FOR LVH, MAY BE NORMAL VARIANT ( R in aVL ) POSSIBLE ANTEROLATERAL INFARCT , AGE UNDETERMINED ABNORMAL ECG WHEN COMPARED WITH ECG OF 08-SEP-2006 21:29, BORDERLINE CRITERIA FOR ANTEROLATERAL INFARCT ARE NOW PRESENT NONSPECIFIC T WAVE ABNORMALITY HAS REPLACED INVERTED T WAVES IN INFERIOR LEADS Confirmed by MD JOAQUIN VINAY ([id number]) on 01/08/2023 3:41:29 PM Test Reason : Arrhythmia Location : 91 : 9100 9101 Overread By : MD JOAQUIN VINAY Edited By : MD JOAQUIN VINAY Referred By : HILARIO MALIK Acquired by : LAKSHMI MOREAU [facility] HISTORY PHYSICALon HISTORY PHYSICAL HNO ID: [id number] Author: Keron Dewey MD Service: General Internal Medicine Author Type: Physician Type: HANDP Filed: 01/08/2023 6:34 AM Note Text: DEPARTMENT OF HOSPITAL MEDICINE HISTORY AND PHYSICAL EXAM SERVICE DATE: 01/08/2023 SERVICE TIME: 1:26 AM Primary Care Physician: Maddie Cantor, DO NIGHT AND WEEKEND COVERAGE: From 7am - 7pm, please call Sound After 7pm, please call cross cover pager #[phone] Subjective CHIEF COMPLAINT: Unsteady gait HPI: This is a 72 year old male [facility] resident with hx of anemia, CAD, hypothyroidism, HL, colon cancer, seizures, HTN, and KYA, who was admitted to [facility] 5 days ago with generalized weakness and an unsteady gait. He had a fall the day of admission. He had no focal neurological deficits. CT brain indicated possible NPH. Tele neurologist advised that pt needed transfer for Neurology consult and may need an LP. Pt denies headache, fever, chills, vision changes, swallowing problems, neck pain, chest pain, shortness of breath, cough, abdominal pain, flank pain, nausea, vomiting, diarrhea, constipation, bleeding, urinary problems, muscle pain, numbness, tingling, or joint pain/swelling. No other associated symptoms. No other known aggravating or relieving factors. He is afebrile and HD stable, 95% on RA. Admission labs are pending. PAST MEDICAL HISTORY Diagnosis Date Anemia Black stools started 03/11/15 Coronary artery disease Hypertrophy of prostate Hypothyroid Organic brain syndrome Osteoarthritis Osteopenia Other and unspecified hyperlipidemia Personal history of colon cancer Seizures (HCC) Unspecified essential hypertension 11/06/2005 PAST SURGICAL HISTORY Procedure Laterality Date CIRCUMCISION AGE >28 DAYS AGE 6 COLONOSCOPY 07/06/2022 COLONOSCOPY FLX DX W/COLLJ SPEC WHEN PFRMD 09/11/2005 Colonoscopy COLONOSCOPY FLX DX W/COLLJ SPEC WHEN PFRMD 12/06/2014 Colonoscopy COLONOSCOPY FLX DX W/COLLJ SPEC WHEN PFRMD 03/25/2016 Colonoscopy outpt [facility] COLSC FLX W/REMOVAL LESION BY HOT BX FORCEPS 03/26/2017 ESOPHAGOGASTRODUODENOSCOPY TRANSORAL DIAGNOSTIC 11/22/2014 EGD ESOPHAGOGASTRODUODENOSCOPY TRANSORAL DIAGNOSTIC 12/06/2014 EGD HEMIARTHROPLASTY HIP PARTIAL 90s Hip replacement, partial Rt LAPAROSCOPY SURG CHOLECYSTECTOMY 01/21/2015 WITH COLON LAPS COLECTOMY PRTL W/RMVL TERMINAL ILEUM 01/21/2015 PAST SURGICAL HISTORY OF ORTHOPEDIC ON KNEES FAMILY HISTORY Problem Relation Age of Onset Heart Mother SJORGENS, ANGIOPLASTY, ASHD Cancer Father LUNG Heart Father OR X 3 Heart Maternal Aunt OR Diabetes Maternal Aunt other (EPILEPSY) Paternal Grandfather Social History Tobacco Use Smoking status: Never Smokeless tobacco: Never Vaping Use Vaping Use: Never used Substance Use Topics Alcohol use: No Drug use: No HOME MEDICATIONS: Prior to Admission Medications Prescriptions Last Dose Informant Patient Reported? Taking? COMPOUNDED PRESCRIPTION No No Sig: KNEE HIGH COMPRESSION STOCKINGS, 20-30 MM, I DX: EDEMA COMPOUNDED PRESCRIPTION No No Sig: Use daily lower extremity wraps for edema. May use rita wraps in place of compression stockings. COMPOUNDED PRESCRIPTION No No Sig: Large manual wheelchair. Dx 345.10; 277.7; 153.9 COMPOUNDED PRESCRIPTION No No Sig: Home PT for upper back and neck pain. Dx:M54.2. Diaper,Brief, Adult,Disposable (ADULT BRIEFS - LARGE) misc No No Si Box four times daily as needed. Use 3-4 times daily as needed Dx bowel incontinence due to Cancer-R32, Resection of bowel-Z92.89 OLANZapine (ZYPREXA) 10 mg tablet Yes Yes Sig: Take 10 mg by mouth daily at bedtime. OLANZapine (ZYPREXA) 7.5 mg tablet No No Sig: Take 1 tablet by mouth daily at bedtime. Enbsk-8-SND-EPA-Fish Oil 1,000 mg (120 mg-180 mg) cap Yes No Sig: Take one capsule by mouth twice daily. Pregabalin (LYRICA) 200 mg capsule Yes No Sig: Take 200 mg by mouth three times daily. THERAPEUTIC MULTIVITAMIN TAB No No Sig: Take one (1) tablet daily - without iron Vitamin E, dl, acetate, (VITAMIN E) 400 unit capsule Yes No Sig: Take 400 Units by mouth every other day. Once capsule by mouth every other day with lunch acetaminophen 650 mg CR tablet Yes No Sig: Take 1,300 mg by mouth twice daily. alendronate (FOSAMAX) 70 mg tablet Yes Yes Sig: Take 70 mg by mouth one time a week. alfuzosin SR (UROXATRAL) 10 mg 24 hr tablet Yes No Sig: Take 10 mg by mouth daily at bedtime. allopurinol (ZYLOPRIM) 100 mg tablet No Yes Sig: Take 1 tablet by mouth once daily. For gout. Patient taking differently: Take 100 mg by mouth daily at bedtime. For gout. ascorbic acid, vitamin C, (VITAMIN C) 500 mg tablet Yes Yes Sig: Take 500 mg by mouth daily with lunch. atorvastatin (LIPITOR) 40 mg tablet No Yes Sig: Take 1 tablet by mouth once daily. bethanechol (URECHOLINE) 25 mg tablet Yes Yes Sig: Take 25 mg by mouth three times daily. bumetanide (BUMEX) 2 mg tablet No Y (more content not included)... Normal [facility] Magnesium SerPl-mCncon 01-08 Magnesium [Mass/Vol] 1.7 mg/dL Normal 1.7-2.3 [facility] Comment on above: Order Comment: Speci men Type: BLOOD SPECIMEN Ordering Facility: [facility] Address: [address] [place], [place] [id number] Performed By: #### 2 4323-8, 12202-8, 3016-3 #### [facility] CLIA [id number] [address] [place] [address] [place] NURSING PROGon 01-08-2023 NURSING PROG HNO ID: [id number] Author: Doug Suárez RN Service: Nursing Author Type: Registered Nurse Type: Nursing Progress Note Filed: 01/08/2023 5:29 PM Note Text: 01/08/2023 Nursing note: Notified Neurology AND attending of multiple attempts of obtaining blood (ammonia level) Multiple RN attempted This note was completed by: Doug Suárez RN Normal [facility] THERAPY NTon 01-08-2023 THERAPY NT HNO ID: [id number] Author: Almaz Falcon PT Service: Physical Therapy Author Type: Physical Therapist Type: Therapy (PT/OT/Speech/Resp) Filed: 01/08/2023 4:10 PM Note Text: Physical Therapy Evaluation SERVICE DATE: 01/08/2023 SERVICE TIME: 1445 to 1502 ROOM: [place] [id number] Recommended Discharge Disposition: Home PT Recommended Discharge Disposition Comments: Pt is functioning at near baseline as of this encounter. Did not require increased physical assist with mobility, but did ambulate with a decreased gait speed and narrow base of support that increases his risk for falls at community level distances. Home PT would be beneficial to improve his activity tolerance for longer distances. Anticipated Discharge Needs: Physical Assist at Home Physical Assist at Home for: Cleaning, Laundry, Meals, Safety, Self Care, Shopping, Transportation Recommended Discharge Equipment: No equipment needs anticipated, Other: See Comment (Pt already has appropriate ambulation equipment and the assisted living facility has proper accomodations made) PT 6 Clicks Score: 16 Pt functioning near baseline with all mobility as of this encounter. However, requires increased cueing for being close to AD with ambulation and demonstrates a diminished tolerance to community level ambulation. Home PT would be beneficial to improve his activity tolerance and ability to navigate his setting with increased safety given his recent falls. Precautions/Activity Restrictions: Bed/Chair Alarm, Fall Risk Current Hospital Course: Originally admitted at [facility] with general weakness and unsteady gait after a fall at his assisted living facility; Currently being monitored and followed on RNF Reason for Hospital Admission: Unsteady gait Relevant Past Medical History: CAD, anemia, colon cancer, seizures, HTN, KYA Response to Therapy Interventions: Good Participation in Activities, Requires Additional Time to Complete Activities, Slow Progression with Functional Activities/Skills Continued Skilled Needs Due to: Functional Mobility/Skill Impairments, Safety Concerns Physical Therapy Problem List: Safety Deficits, Decreased Activity Tolerance, Impaired Self Care, Decreased Strength, Functional Mobility Impairment Treatment Interventions: Education, Functional Mobility Training Home Environment Patient Lives With: Facility Care Assistance Available: 24-Hour Tub/Shower Type: walk in shower Laundry: staff completes the laundry Equipment Owned: Walker- Wheeled, Shower Chair Prior Functional Level: Required Assistance Assistance Required With: Transportation, Shopping, Self Care, Medication Management, Ambulation, Cleaning, Laundry, Meals Prior Functional Level Comments: Per patient he receives assist with all ADLs and functional mobility. Staff also completes IADLS Baseline Cognition: Oriented to self, Oriented to place, Oriented to time, Oriented to situation Patient Report: Pleasant and agreeable to treatment CURRENT FUNCTIONAL STATUS: Most recent performance Current Functional Mobility Assist Level Additional Information Rolling Supine to Sit Sit to Supine Scooting Sit to Stand Contact Guard Assistance, Additional Information VCs provided for hand placement -- pt preferred to push off with both hands on chair arm rests, and then place one at a time on walker handles Stand to Sit Contact Guard Assistance, Additional Information Good eccentric control Bed to Chair Toilet/Commode Gait Contact Guard Assistance, Additional Information Gait Device: Wheeled Walker Gait Distance (feet): 20'x2 Pt demonstrated good mobility -- VCs provided to remain within FWW base when walking Stairs Curb Step Car Transfer Range of Motion: WFL Strength: WFL General Deviations/Observations: Pily decreased, Flexed trunk posture, Narrow Base of Support, Step length decreased -M: 7: Walk 25 feet or more Learning/Educational Needs: Discharge Plan, Functional Activities/Mobility, Plan of Care, Rehabilitation Techniques and Procedures, Safety Goals for Plan of Care: Patient/Caregiver Goals: Go Home Transfer Supine to/from Sit with: Stand By Assistance Transfer Sit to/from Stand with: Stand By Assistance Ambulate with: Stand By Assistance Distance: 50'x2 Device: Wheeled Walker Goal: Pt will complete x5 repeated [id number] transfers with SBA Rehab Potential: Good Patient will be discontinued from Physical Therapy when no further skilled needs are identified in this setting. PLAN: PT Frequency: 4 times per week (1-4) Plan of Care developed with: Patient TREATMENT INTERVENTIONS: Therapy Diagnosis: Reduced mobility-other, Decreased activities of daily living (ADL), Unsteadiness on feet, General symptoms and signs-other Interventions Provided: Evaluation Educated on safety, benefits of mobility, and d/c plan as of this encounter Tolerance to activity as (more content not included)... Normal [facility] THERAPY NT HNO ID: [id number] Author: Miquel Ellis OTR/L Service: Occupational Therapy Author Type: Occupational Therapist Type: Therapy (PT/OT/Speech/Resp) Filed: 01/08/2023 11:27 AM Note Text: Occupational Therapy Evaluation SERVICE DATE: 01/08/2023 SERVICE TIME: 839 to 907 ROOM: [id number] Recommended Discharge Disposition: Home OT Recommended Discharge Disposition Comments: Return to Assisted Living Patient appears to be near his baseline with ADLs/functional transfers. OT 6 Clicks Score: 15 Precautions/Activity Restrictions: Bed/Chair Alarm, Fall Risk Current Hospital Course: workup in progress Reason for Hospital Admission: Unsteady gait Relevant Past Medical History: CAD, anemia, colon cancer, seizures, HTN, KYA Response to Therapy Interventions: Good Participation in Activities Continued Skilled Needs Due to: Functional Impairment Occupational Therapy Problem List: Impaired Self Care Cognition/Communication Deficits Responsiveness: Awake Follows Commands: 2-step Commands, Cueing Needed Cueing to Follow Commands: Minimum Executive Function Deficits: Judgement, Safety Awareness Judgement Deficit: Minimal impairment Safety Awareness Deficit: Minimal impairment Treatment Interventions: Self Care/Home Management Plan for Next Visit: Bathing Training, Bed Mobility, Dressing Training, Fall Prevention, Grooming Training, Standing Tolerance Home Environment Patient Lives With: Facility Care Assistance Available: 24-Hour Tub/Shower Type: walk in shower Laundry: staff completes the laundry Equipment Owned: Walker- Wheeled, Shower Chair Prior Functional Level: Required Assistance Assistance Required With: Transportation, Shopping, Self Care, Medication Management, Ambulation, Cleaning, Laundry, Meals Prior Functional Level Comments: Per patient he receives assist with all ADLs and functional mobility. Staff also completes IADLS Baseline Cognition: Oriented to self, Oriented to place, Oriented to time, Oriented to situation Occupational Factors Life Roles: Family Member, Friend Identified Strengths: Good Support System, Effective Communication Skills, Access to Healthcare, Follows Multi-Step Commands Identified Barriers: Difficulty with ADLs/IADLs Patient Report: Pt seen bedside, agreeable to OT, no complaints this a.m. CURRENT FUNCTIONAL STATUS: Most recent performance Current Activities of Daily Living Assist Level Additional Information Feeding Set Up Grooming Set Up, Additional Information Provided patient with opportunity to complete grooming task while seated in chair Bathing Upper Body Moderate Assistance Bathing Lower Body Maximal Assistance Dressing Upper Body Minimal Assistance Dressing Lower Body Moderate Assistance, Additional Information Provided patient with cues for proper sequencing to complete LB dressing task Toileting Maximal Assistance Instrumental Activities of Daily Living Assist Level Additional Information Meal/Beverage Prep Cleaning Laundry Medication Management with Strategies Functional Mobility Assist Level Additional Information Rolling Supine to Sit Contact Guard Assistance, Additional Information Provided patient with cues for proper hand placement to complete supine to sit at edge of the bed Sit to Supine Scooting Contact Guard Assistance Sit to Stand Minimal Assistance, Additional Information Provided patient with cues for proper hand placement to complete sit to stand from edge of the bed Stand to Sit Contact Guard Assistance Bed to Chair Toilet/Commode Shower Functional Mobility Minimal Assistance, Additional Information Wheeled Walker Provided patient with cues for walker safety during functional mobility from bed to bedside chair Blank morales indicate activity not attempted Range of Motion: WFL Strength: Upper Extremity Comments Right Upper Extremity Strength Comments: 4/5 Left Upper Extremity Strength Comments: 4/5 Activity Tolerance: Sitting Activity, Standing Activity Sitting Activity: static sitting at edge of the bed Sitting Activity Tolerance (in minutes): 6 Standing Activity: functional mobility from bed to chair Standing Activity Tolerance (in minutes): 3 Learning/Educational Needs: Discharge Plan, Self Care, Safety Goals for Plan of Care: Patient/Caregiver Goals: Reduce ADL/IADL barriers Grooming with: Independent Upper Body Bathing with: Set Up Upper Body Dressing with: Set Up Lower Body Bathing with: Minimal Assistance Lower Body Dressing with: Minimal Assistance Toilet Hygiene with: Minimal Assistance Toilet Transfer with: Contact Guard Assistance Tolerate (minutes of functional activity): 25 Functional Activity with: Minimal Assistance Rehab Potential: Good Patient will be discontinued from Occupational Therapy when no further skilled needs are identified in this setting. PLAN: OT Frequency: 1 time per week Plan of Care developed with: Patient (more content not included)... Normal [facility] TSH SerPl-aCncon 01-08-2023 TSH Qn 9.720 m[IU]/L High 0.270-4.20 0 [facility] Comment on above: Order Comment: Speci men Type: BLOOD SPECIMEN Ordering Facility: [facility] Address: [address] [place] [id number] Performed By: #### 2 4323-8, 14921-5, 3016-3 #### [facility] CLIA [id number] [address] [place] [address] [place] Valproate SerPl-mCncon 01-08 Valproate [Mass/Vol] 72.9 ug/mL Normal 50.0-100.0 [facility] Comment on above: Order Comment: Speci men Type: BLOOD SPECIMEN Ordering Facility: [facility] Address: [facility], [place] [address] Result Comment: Refe rence ranges and high/low indicator flags are provided as general guidelines only. The treating physician must determine appropriate target levels/dosing based on the specific clinical situation. Performed By: #### 4 086-5 #### [facility] CLIA [id number] [address] [place] [address] [place] XR LUMBAR 3V AP/LAT/L5-S1on 01-08-2023 XR LUMBAR 3V AP/LAT/L5-S1 * * *Final Report* * * DATE OF EXAM: Jan 08 2023 1:27PM [id number] - XR LUMBAR 3V AP/LAT/L5-S1 / PROCEDURE REASON: Low back pain, increased fracture risk * * * * Physician Interpretation * * * * EXAM TITLE: XR LUMBAR 3V AP/LAT/L5-S1 DATE: 01/08/2023 INDICATION: Recent fall. Back pain. COMPARISON: No recent studies. AP, lateral, cone-down L5-S1 lateral view of the lumbar spine show severe compression deformity of L1. It is lost approximately 60% of its vertebral body height anteriorly. There is question of slight posterior displacement of superior cortex. There is mild kyphoscoliosis centered at T12-L1. Convexity is noted to the right. Remainder vertebral body heights are maintained. Degenerative disc space narrowing noted at L3-4, L4-5, and L5-S1. Facet arthropathy noted at similar levels. Counting lumbar levels on this exam is based on L4-5 disc level as a reference level located at the top of the iliac crests. Assume 5 lumbar type vertebral bodies. Patient has had right hip prosthesis placed IMPRESSION: Compression deformity of L1 which is lost approximately 60% of its vertebral body height and may demonstrate slight posterior displacement of superior cortex. Further evaluation with CT scan or MRI may be helpful to further demonstrate details. Multilevel degenerative disc disease and facet arthropathy. [employer] Agent: ELVIS Transcribe Date/Time: Jan 08 2023 2:00P Dictated by : REJI ARENTT MD This examination was interpreted and the report reviewed and electronically signed by: REJI ARNETT MD on Jan 08 2023 2:05PM EST [id number] Normal [facility] XR THORACIC 2V AP/LATon 04- XR THORACIC 2V AP/LAT * * *Final Report* * * DATE OF EXAM: Jan 08 2023 1:27PM [id number] - XR THORACIC 2V AP/LAT / PROCEDURE REASON: Spine fracture, thoracic, traumatic * * * * Physician Interpretation * * * * EXAM TITLE: XR THORACIC 2V AP/LAT DATE: 01/08/2023 INDICATION: Fall with back pain. COMPARISON: None. AP and lateral views of the thoracic spine show compression deformity of L1 as noted On accompanying films of lumbar spine. It has lost approximately 60% of vertebral body height. Remaining vertebral bodies within the thoracic spine are preserved. Intervertebral disc spaces within the thoracic spine are fairly well-preserved. IMPRESSION: Compression deformity of L1 as described in the report of the accompanying lumbar spine films. [employer] Agent: ELVIS Transcribe Date/Time: Jan 08 2023 2:05P Dictated by : REJI ARNETT MD This examination was interpreted and the report reviewed and electronically signed by: REJI ARNETT MD on Jan 08 2023 2:07PM EST [id number] Normal [facility] Absolute lymphocyte countOrd ered By: Dr. Cannon on 01-07-2023 Lymphocytes Auto (Unsp spec) [#/Vol] 2.20 10*3/uL 0.83-4.51 [facility] Basophil percentageOrdered B y: Dr. Cannon on 01-07-2023 Basophils/100 WBC (Bld) 0.6 % 0-1 [facility] Chloride [Moles/Vol] 110 mmol/L 98-107 [facility] Eosinophils/100 WBC (Bld) 2.6 % 0-5 [facility] Glucose [Mass/Vol] 115 mg/dL 74-106 [facility] Comment on above: Fasting Glucose resu lt from 100 to 125 mg/dL suggests IMPAIRED HOMEOSTASIS per A.D.A. criteria. Neutrophils (Bld) [#/Vol] 3.0 10*3/uL 2.0-7.7 [facility] Neutrophils/100 WBC (Bld) 46.7 % 47-70 [facility] Potassium [Moles/Vol] 3.9 mmol/L 3.5-5.1 [facility] Sodium [Moles/Vol] 140 mmol/L 136-145 [facility] WBC (Bld) [#/Vol] 6.5 10*3/uL 4.4-11.0 [facility] Blood erythrocytes count (nu mber/volume)Ordered By: Dr. Cannon on 01-07-2023 RBC (Bld) [#/Vol] 3.61 10*6/uL 4.6-6.2 [facility] Blood hemoglobin measurement (mass/volume)Ordered By: Dr. Cannon on 01-07-2023 Hemoglobin (Bld) [Mass/Vol] 12.1 g/dL 13.0-16.5 [facility] Blood lymphocytes/100 leukoc ytesOrdered By: Dr. Cannon on 01-07-2023 Lymphocytes/100 WBC (Bld) 33.8 % 19-41 [facility] Blood monocytes/100 leukocyt esOrdered By: Dr. Cannon on 01-07-2023 Monocytes/100 WBC (Bld) 15.2 % 0-10 [facility] Blood platelet mean volumeOr dered By: Dr. Cannon on 01-07-2023 Platelet mean volume (Bld) [Entitic vol] 8.9 fL 6.2-12.0 [facility] Culture, urineOrdered By: Dr Shanthi Malik on 01-07-2023 Bacteria identified Cx Nom (U) Culture exhibits no growth. [facility] Determination of erythrocyte mean corpuscular volume (MCV)Ordered By: Dr. Cannon on 01-07-2023 MCV (RBC) [Entitic vol] 102.5 fL 80-94 [facility] Hematocrit Auto (Bld) [Volum e fraction]Ordered By: Dr. Cannon on 01-07-2023 Hematocrit (Bld) [Volume fraction] 37.0 % 40-54 [facility] Laboratory - Chemistry and C hemistry - challengeOrdered By: Dr. Cannon on 01-07-2023 CO2 [Moles/Vol] 24.0 mmol/L 21.0-32.0 [facility] Urea nitrogen/Creatinine [Mass ratio] 27.1 mg/mg 10-20 [facility] - Hematology and Cell countsOrdered By: Dr. Cannon on 01-07-2023 Erythrocyte distribution width (RBC) [Entitic vol] 47.9 fL 35.1-43.9 [facility] Erythrocyte distribution width (RBC) [Ratio] 12.8 % 11.6-14.6 [facility] Immature granulocytes/100 WBC (Bld) 1.100 % 0.0-0.9 [facility] Comment on above: IG% - Immature Granu locytes (promyelocytes, myelocytes and metamyelocytes) > 1% indicates that a LEFT SHIFT is Present. MCH (RBC) [Entitic mass] 33.5 pg 27.0-32.0 [facility] Nucleated RBC/100 WBC (Bld) [Ratio] 0 % 0-5 [facility] MCHC Auto (RBC) [Mass/Vol]Or dered By: Dr. Cannon on 01-07-2023 MCHC (RBC) [Mass/Vol] 32.7 g/dL 32-36 [facility] No Panel InformationOrdered By: Dr. Cannon on 01-07-2023 Estimated Creatinine Clearance Calc 52.95 ml/min [facility] Estimated GFR (MDRD) Amer 242 mL/min >60 [facility] Comment on above: GFR Calc Estimated GFR (MDRD) Non-Af Amer 200 mL/min >60 [facility] Comment on above: Non- GFR Calc Platelets bldOrdered By: Dr. Cannon on 01-07-2023 Platelets (Bld) [#/Vol] 132 10*3/uL 150-450 [facility] Serum or plasma calcium minda urement (mass/volume)Ordered By: Dr. Cannon on 01-07-2023 Calcium [Mass/Vol] 8.8 mg/dL 8.5-10.1 [facility] Serum or plasma creatinine m easurement (mass/volume)Ordered By: Dr. Cannon on 01-07-2023 Creatinine [Mass/Vol] 0.44 mg/dL 0.70-1.30 [facility] Comment on above: The validity of the calculated GFR & GFRAA in patients over 70 years has not been determined. Clinical correlation is essential. Serum or plasma urea nitroge n measurement (mass/volume)Ordered By: Dr. Cannon on 01-07-2023 Urea nitrogen [Mass/Vol] 12 mg/dL 7-18 [facility] Thin prep Papanicolaou smear with manual screeningOrdered By: Dr. Cannon on 01-07-2023 Thin prep Papanicolaou smear with manual screening 6 5-15 [facility] Basophil percentageOrdered B y: Dr. Cannon on 01-06-2023 Basophil percentage 2.2 mg/dL 2.5-4.9 [facility] Laboratory - Chemistry and C hemistry - challengeOrdered By: Dr. Cannon on 01-06-2023 Magnesium [Mass/Vol] 2.0 mg/dL 1.6-2.6 [facility] Basophil percentageOrdered B y: Dr. Hooper on 01-05-2023 Bilirubin [Mass/Vol] 0.30 mg/dL 0.20-1.00 [facility] Comment on above: For patients on eltr ombopag therapy, use of Dimension [place] TBIL is not recommended. Protein [Mass/Vol] 5.5 g/dL 6.4-8.2 [facility] Laboratory - Chemistry and C hemistry - challengeOrdered By: Dr. Hooper on 01-05-2023 ALP [Catalytic activity/Vol] 48 U/L 45-117 [facility] ALT [Catalytic activity/Vol] 8 U/L 16-61 [facility] Globulin (S) [Mass/Vol] 3.0 g/dL 2.2-4.2 [facility] No Panel InformationOrdered By: Dr. Hooper on 01-05-2023 Valproic Acid (Depakene) Level 57 ug/mL 50-100 [facility] Serum or plasma albumin minda urement (mass/volume)Ordered By: Dr. Hooper on 01-05-2023 Albumin [Mass/Vol] 2.5 g/dL 3.2-5.0 [facility] Serum or plasma albumin/glob ulin mass ratioOrdered By: Dr. Hooper on 01-05-2023 Albumin/Globulin [Mass ratio] 0.8 {ratio} 0.9-2.4 [facility] Thin prep Papanicolaou smear with manual screeningOrdered By: Dr. Hooper on 01-05-2023 Thin prep Papanicolaou smear with manual screening 15 U/L 15-37 [facility] Basophil percentageOrdered B y: Dr. Malik on 01-04-2023 Basophil percentage 0 SEEN /hpf 0-5 [facility] Bilirubin Test strip Ql (U)O rdered By: Dr. Malik on 01-04-2023 Bilirubin Ql (U) Negative Negative [facility] INR in Blood by Coagulation assayOrdered By: Dr. Malik on 01-04-2023 INR Coag (Bld) [Relative time] 1.0 {INR} [facility] Ketones Test strip Ql (U)Ord ered By: Dr. Malik on 01-04-2023 Ketones Ql (U) 5 mg/dl Negative [facility] Laboratory - Chemistry and C hemistry - challengeOrdered By: Dr. Malik on 01-04-2023 Cobalamin (Vitamin B12) [Mass/Vol] 504 pg/mL 211-911 [facility] CK [Catalytic activity/Vol] 50 U/L 39-308 [facility] Laboratory - CoagulationOrde red By: Dr. Malik on 01-04-2023 aPTT Coag (Bld) [Time] 24.4 s 24.1-36.2 [facility] PT Coag (PPP) [Time] 12.9 s 11.7-14.9 [facility] Mucus LM Ql (Urine sed)Order ed By: Dr. Malik on 01-04-2023 Mucus Ql (Urine sed) 0 SEEN /hpf [facility] Nitrite Test strip Ql (U)Ord ered By: Dr. Malik on 01-04-2023 Nitrite Ql (U) Negative Negative [facility] No Panel InformationOrdered By: Dr. Malik on 01-04-2023 Thyroid Stimulating Hormone (TSH) 3.10 uIU/mL 0.358-3.74 [facility] Troponin I High Sensitivity 6 pg/mL 3.0-78.0 [facility] Comment on above: Please Note: New Janice t Units and Gender Specific Reference Ranges. For more information see Policy Stat Procedure [place] High Sensitivity Troponin (TNIH) and attachments. Protein Test strip Ql (U)Ord ered By: Dr. Malik on 01-04-2023 Protein Ql (U) Negative Negative [facility] Serum or plasma folate measu rement (mass/volume)Ordered By: Dr. Malik on 01-04-2023 Folate [Mass/Vol] 9.80 ng/mL 3.1-55.4 [facility] Squamous epithelial cells de tection in urine sediment by light microscopyOrdered By: Dr. Malik on 01-04-2023 Epithelial cells.squamous LM Ql (Urine sed) 0 SEEN /hpf 0-5 [facility] Urine blood detectionOrdered By: Dr. Malik on 01-04-2023 RBC Ql (U) Negative Negative [facility] RBC Ql (U) 0 SEEN /hpf 0-5 [facility] Urine clarityOrdered By: Dr. Malik on 01-04-2023 Clarity (U) Clear Clear [facility] Urine color determinationOrd ered By: Dr. Malik on 01-04-2023 Color (U) Yellow Yellow [facility] Urine glucose detectionOrder ed By: Dr. Malik on 01-04-2023 Glucose Ql (U) Normal mg/dl Normal [facility] Urine leukocyte esterase det ection by dipstickOrdered By: Dr. Malik on 01-04-2023 Leukocyte esterase Test strip Ql (U) Negative Negative [facility] Urine pHOrdered By: Dr. Binta smith on 01-04-2023 pH (U) 8.0 [pH] 5.0 - 8.0 [facility] Urine sediment bacteria coun t by microscopy (number/high power field)Ordered By: Dr. Malik on 01-04-2023 Bacteria LM.HPF (Urine sed) [#/Area] 0 /[HPF] None Seen [facility] Urine specific gravity measu rementOrdered By: Dr. Malik on 01-04-2023 Specific gravity (U) [Rel density] 1.010 1.002-1.03 0 [facility] Urobilinogen Auto test strip Ql (U)Ordered By: Dr. Malik on 01-04-2023 Urobilinogen Ql (U) Normal mg/dl Normal [facility] Absolute lymphocyte countOrd ered By: Dr. Skaggs on 08-11-2022 Lymphocytes Auto (Unsp spec) [#/Vol] 1.27 10*3/uL 0.83-4.51 [facility] Basophil percentageOrdered B y: Dr. Skaggs on 08-11-2022 Basophils/100 WBC (Bld) 0.3 % 0-1 [facility] Chloride [Moles/Vol] 106 mmol/L 98-107 [facility] Eosinophils/100 WBC (Bld) 0.2 % 0-5 [facility] Glucose [Mass/Vol] 131 mg/dL 74-106 [facility] Comment on above: Fasting Glucose resu lt greater than or equal to 126 mg/dL suggests DIABETES MELLITUS per A.D.A. criteria. Neutrophils (Bld) [#/Vol] 11.5 10*3/uL 2.0-7.7 [facility] Neutrophils/100 WBC (Bld) 80.3 % 47-70 [facility] Potassium [Moles/Vol] 3.6 mmol/L 3.5-5.1 [facility] Sodium [Moles/Vol] 141 mmol/L 136-145 [facility] WBC (Bld) [#/Vol] 14.3 10*3/uL 4.4-11.0 [facility] Blood erythrocytes count (nu mber/volume)Ordered By: Dr. Skaggs on 08-11-2022 RBC (Bld) [#/Vol] 4.87 10*6/uL 4.6-6.2 [facility] Blood hemoglobin measurement (mass/volume)Ordered By: Dr. Skaggs on 08-11-2022 Hemoglobin (Bld) [Mass/Vol] 15.6 g/dL 13.0-16.5 [facility] Blood lymphocytes/100 leukoc ytesOrdered By: Dr. Skaggs on 08-11-2022 Lymphocytes/100 WBC (Bld) 8.9 % 19-41 [facility] Blood monocytes/100 leukocyt esOrdered By: Dr. Skaggs on 08-11-2022 Monocytes/100 WBC (Bld) 9.8 % 0-10 [facility] Blood platelet mean volumeOr dered By: Dr. Skaggs on 08-11-2022 Platelet mean volume (Bld) [Entitic vol] 8.8 fL 6.2-12.0 [facility] COVID-19 virus antigen assay Ordered By: Dr. Skaggs on 08-11-2022 SARS-CoV-2 (COVID-19) Ag IA.rapid Ql (Resp) [facility] Determination of erythrocyte mean corpuscular volume (MCV)Ordered By: Dr. Skaggs on 08-11-2022 MCV (RBC) [Entitic vol] 94.5 fL 80-94 [facility] Hematocrit Auto (Bld) [Volum e fraction]Ordered By: Dr. Skaggs on 08-11-2022 Hematocrit (Bld) [Volume fraction] 46.0 % 40-54 [facility] Laboratory - Chemistry and C hemistry - challengeOrdered By: Dr. Skaggs on 08-11-2022 CO2 [Moles/Vol] 24.0 mmol/L 21.0-32.0 [facility] Urea nitrogen/Creatinine [Mass ratio] 11.9 mg/mg 10-20 [facility] Laboratory - Drug toxicology Ordered By: Dr. Skaggs on 08-11-2022 Amphetamines Ql (U) Negative <1000 ng/mL [facility] Benzodiazepines Ql (U) Negative < 200 ng/mL [facility] Cannabinoids Screen Ql (U) Negative < 50 ng/mL [facility] Cocaine Ql (U) Negative < 300 ng/mL [facility] Opiates Ql (U) Negative < 300 ng/mL [facility] Laboratory - Hematology and Cell countsOrdered By: Dr. Skaggs on 08-11-2022 Erythrocyte distribution width (RBC) [Entitic vol] 43.3 fL 35.1-43.9 [facility] Erythrocyte distribution width (RBC) [Ratio] 12.5 % 11.6-14.6 [facility] Immature granulocytes/100 WBC (Bld) 0.500 % 0.0-0.9 [facility] Comment on above: IG% - Immature Granu locytes (promyelocytes, myelocytes and metamyelocytes) > 1% indicates that a LEFT SHIFT is Present. MCH (RBC) [Entitic mass] 32.0 pg 27.0-32.0 [facility] Nucleated RBC/100 WBC (Bld) [Ratio] 0 % 0-5 [facility] MCHC Auto (RBC) [Mass/Vol]Or dered By: Dr. Skaggs on 08-11-2022 MCHC (RBC) [Mass/Vol] 33.9 g/dL 32-36 [facility] No Panel InformationOrdered By: Dr. Skaggs on 08-11-2022 MDMA (Ecstasy) Screen Negative < 500 ng/mL [facility] Urine Barbiturates Screen Negative < 200 ng/mL [facility] Urine Drug Screen Comment [facility] Comment on above: CONFIRMATORY TESTING FOR ALL POSITIVE URINE DRUG SCREENRESULTS WILL ONLY BE SENT OUT UPON PHYSICIAN ORDER. VISTA Urine Drug Screen methods provide only preliminaryanalytical test results. A more specific alternate chemicalmethod must be used in order to obtain a confirmedanalytical result. Gas chromatography/mass spectrometery(GC/MS) is the preferred confirmatory method. Clinicalconsideration and professional judgement should be appliedto any drug of abuse test result, particularly whenpreliminary positive results are used. URINE TCA TESTING MUST BE ORDERED SEPARATELY. USE TESTMNEMONIC: [facility] Urine Methadone Screen Negative < 300 ng/mL [facility] Estimated Creatinine Clearance Calc 53.21 ml/min [facility] Estimated GFR (MDRD) Amer 93 mL/min >60 [facility] Comment on above: GFR Calc Estimated GFR (MDRD) Non-Af Amer 77 mL/min >60 [facility] Comment on above: Non- GFR Calc Ethyl Alcohol Level < 3.0 mg/dL [facility] Comment on above: The serum:whole bloo d ethanol ratio is approximately 1.14and varies slightly with hematocrit. Medical Alcohol reference interval and critical value innon-tolerant individuals; 50 - 100 Impairment 100 Intoxication 100 - 250 Severe Poisoning 250 - 400 Deep/possible fatal coma Platelets bldOrdered By: Dr. Skaggs on 08-11-2022 Platelets (Bld) [#/Vol] 205 10*3/uL 150-450 [facility] Serum or plasma calcium minda urement (mass/volume)Ordered By: Dr. Skaggs on 08-11-2022 Calcium [Mass/Vol] 9.3 mg/dL 8.5-10.1 [facility] Serum or plasma creatinine m easurement (mass/volume)Ordered By: Dr. Skaggs on 08-11-2022 Creatinine [Mass/Vol] 1.01 mg/dL 0.70-1.30 [facility] Comment on above: The validity of the calculated GFR & GFRAA in patients over 70 years has not been determined. Clinical correlation is essential. Serum or plasma urea nitroge n measurement (mass/volume)Ordered By: Dr. Skaggs on 08-11-2022 Urea nitrogen [Mass/Vol] 12 mg/dL 7-18 [facility] Thin prep Papanicolaou smear with manual screeningOrdered By: Dr. Skaggs on 08-11-2022 Thin prep Papanicolaou smear with manual screening 11 5-15 [facility] Urine phencyclidine (PCP) de tectionOrdered By: Dr. Skaggs on 08-11-2022 Phencyclidine Ql (U) Negative < 25 ng/mL [facility] CNOVon 07-31-2022 CNOV Office Visit (GENSWS ) ANJEL ROSS ([id number]) 1950 M NFR Date Time Provider Department 07/31/22 9:15 AM MATEO BENTON During your visit today, we recorded the following information about you: Mateo Benton III, MD 07/31/2022 9:27 AM Signed Subjective: Patient is status post a colonoscopy completed at [facility] on 07/06/2022. Patient was noted to [...] to have another colonoscopy in 5 years. Referring Provider: MATEO BENTON [[id number]] Allergies As of Date: 07/31/2022 Noted Allergy Reaction ASA (SALICYLATES) 06/13/2005 NICKEL 01/16/2013 2 - Rash TRILEPTAL (OXCARBAZEPINE) 06/13/2005 Date Reviewed: 07/31/2022 Reviewed by: Cheryl Sarah RN - Fully Assessed Reason for Visit: Follow Up [171] Cmt: Review colonoscopy results Primary Visit Diagnosis:Personal history of colon cancer [Z85.038] Other Visit Diagnosis:History of colonic polyps [Z86.010] Prescriptions as of 07/31/2022 - levothyroxine (SYNTHROID) 75 mcg tablet Take 75 mcg by mouth daily before breakfast. - OLANZapine (ZYPREXA) 10 mg tablet Take 10 mg by mouth daily at bedtime. - valproic acid (DEPAKENE) 250 mg/5 mL [...] by mouth three times daily. - acetaminophen 650 mg CR tablet Take 1,300 mg by mouth twice daily. - cholecalciferol (VITAMIN D3) 50 mcg (2,000 unit) tablet Take 2,000 Units by mouth once daily. - alfuzosin SR (UROXATRAL) 10 mg 24 hr tablet Take 10 mg by mouth daily at bedtime. - Mpsih-1-EGU-EPA-Fish Oil 1,000 mg (120 mg-180 mg) cap Take [...] tablet by mouth once daily. For gout. - rOPINIRole (REQUIP) 1 mg tablet Take 1 tablet by mouth three times daily. - COMPOUNDED PRESCRIPTION Use daily lower extremity wraps for edema. May use rita wraps in place of compression stockings. - COMPOUNDED PRESCRIPTION KNEE HIGH COMPRESSION STOCKINGS, 20-30 MM, I DX: EDEMA - levothyroxine (SYNTHROID) 50 mcg tablet Take 50 mcg by mouth once daily. Take on empty stomach. For Thyroid. - THERAPEUTIC MULTIVITAMIN TAB Take one (1) tablet daily - wit (more content not included)... Normal [facility] JESSICAANJEL ([id number]) 1950 M NFR Date Time Provider Department 07/14/22 MATEO BENTON During your visit today, we recorded the following information about you: Silvia Bustamante [facility] 07/14/2022 1:06 PM Signed Patient called requesting results from colonoscopy. Elizabeth Ruth LPN 07/14/2022 1:27 PM Signed Please call patient to schedule a virtual or office visit to view colonoscopy results. Thank you. Anjel# [phone] [facility] 07/14/2022 2:36 PM Addendum They will call back to schedule.Georgie Alatorre [facility] Allergies As of Date: 07/14/2022 Noted Allergy Reaction ASA (SALICYLATES) 06/13/2005 NICKEL 01/16/2013 2 - Rash TRILEPTAL (OXCARBAZEPINE) 06/13/2005 Date Reviewed: 04/27/2022 Reviewed by: Madelin Ferguson PA-C - Fully Assessed Reason for Visit: Results [95] Prescriptions as of 07/14/2022 - levothyroxine (SYNTHROID) 75 mcg tablet Take 75 mcg by mouth daily before breakfast. - OLANZapine (ZYPREXA) 10 mg tablet Take 10 mg by mouth daily at bedtime. - valproic acid (DEPAKENE) 250 mg/5 mL [...] mg by mouth daily at bedtime. - Pkpcr-2-LSO-EPA-Fish Oil (FISH OIL) 1,000 mg (120 mg-180 [...] tablet by mouth once daily. For gout. - rOPINIRole (REQUIP) 1 mg tablet Take [...] one (1) tablet daily - without iron Problem List As Of Date 07/14/2022 Noted Resolved Mixed hyperlipidemia [E78.2] 10/29/2005 Convulsions (HCC) [R56.9] 11/06/2005 10/02/2020 Essential hypertension [I10] 11/06/2005 Generalized convulsive epilepsy (HCC) [G40.309] 11/13/2005 History of DVT (deep vein thrombosis) [Z86.718] 02/24/2011 Schizoaffective disorder, chronic condition (HC*07/14/2013 Medicare annual wellness visit, initial [Z00.0 (more content not included)... Normal [facility] JARRODOVon 04-14-2022 CNOV Office Visit (GENSWS ) JESSICAANJEL CHAVEZ ([id number]) 1950 M NFR Date Time Provider Department 04/14/22 8:30 AM MADELIN FERGUSON During your visit today, we recorded the following information about you: Temperature Pulse Blood pressure Weight 98.1 degrees 102/minute 126/76 97.3 kg Height 1.575 m Madelin Ferguson PA-C 04/27/2022 9:34 AM Signed HISTORY AND PHYSICAL Anjel Ross 1950 REFERRING PHYSICIAN: Maddie Cantor DO CHIEF COMPLAINT: Consult (colonoscopy consult) HPI: The patient is a 71 year old male referred for endoscopy. Anjel notes a personal history of colon cancer diagnosed in 2014. He is s/p right hemicolectomy 01/21/15 which showed invasive adenocarcinoma. Most recent colonoscopy 03/26/[address] Anjel Nagy at [facility]. Patient was noted to have a [...] disease, hypertension, seizures. Patient follows with Dr. Maddie Cantor in primary care for his chronic [...] W/COLLJ SPEC WHEN PFRMD 03/25/16 Colonoscopy outpt [facility] - COLSC FLX W/REMOVAL LESION BY [...] mg by mouth daily at bedtime. - Godds-9-ZBU-EPA-Fish Oil (FISH OIL) 1,000 mg (120 mg-180 [...] four times daily as needed. Use 3-4 ti (more content not included)... Normal [facility] 03-13-2022 [facility] Telephone (NE50MN) ANJEL ROSS ([id number]) 1950 M NFR Date Time Provider Department 03/13/22 ANNIA CHUNG NE50MN During your visit today, we recorded the following information about you: Imani Mejia 03/13/2022 11:11 AM Signed Medication Concern Person Calling Silvia Sherie from [facility] Name of medication Depakote XR. Concern with medication Nurse advised pt is having difficulty swallowing pill and since XR she can't crush. Nurse is asking if can get non XR or liquid so it's not difficult for pt? Patient of Dr. Sheldon Talley, [place] 03/13/2022 11:20 AM Signed Recent visit 03/06/22 with Nils Marie CNP: ASSESSMENT: Anjel Ross is a 71 year old male with history of seizures. No seizures that patient or stff can report. Remains on current medications. Health is stable and requires assistance with all ADL's. Staff helps him with his medications. Will continue with plan. ? PLAN: - LABS: cmp,LEV,VPA - Medications: -continue with VPA 1000mg TID -continue with LEV 1500mg BID -continue with Lyrica 200mg TID -continue with all regular daily medications -Follow all seizure precautions and safety measures. - Consults: none - Follow up: 6-12 months Update forwarded for review. BYRON Saunders APRN.KRISTEN 03/13/2022 1:37 PM Signed The following approved medication requests have been transmitted electronically. Signed Prescriptions Disp Refills valproic acid (DEPAKENE) 250 mg/5 mL syrup 1800 mL 5 Sig: Take 20 mL by mouth three times daily. Authorizing Provider: MIQUEL OBREGON APRN.CNP Soroka Joyce, RN 03/13/2022 1:59 PM Signed Notified Silvia rx has been sent and a PA will be completed if needed. Dorothy Talley RN Allergies As of Date: 03/13/2022 Noted Allergy Reaction ASA (SALICYLATES) 06/13/2005 NICKEL 01/16/2013 2 - Rash TRILEPTAL (OXCARBAZEPINE) 06/13/2005 Date Reviewed: 11/11/2020 Reviewed by: Nancy Cervantes Ma - Fully Assessed Reason for Visit: Medication Question [6358] Cmt: Depakote XR Order(s):valproic acid (DEPAKENE) 250 mg/5 mL syrupTake 20 mL by mouth three times daily.Disp: 1800 mLRfl: 5 Prescriptions as of 03/13/2022 - valproic acid (DEPAKENE) 250 mg/5 mL [...] mg by mouth daily at bedtime. - Btwwv-7-VLZ-EPA-Fish Oil (FISH OIL) 1,000 mg (120 mg-180 [...] (PLAVIX) 75 mg tablet Take 1 tablet (more content not included)... Normal [facility] 02-26-2022 DASHA Telephone (NE50MN) ANJEL ROSS ([id number]) 1950 M NFR Date Time Provider Department 02/26/22 MIQUEL OBREGON NE50MN During your visit today, we recorded the following information about you: Miquel Obregon APRN.CNP 02/26/2022 1:33 PM Signed The following approved medication requests have been transmitted electronically. Signed Prescriptions Disp Refills levETIRAcetam (KEPPRA) 750 mg tablet 120 tablet 0 Si TABLETS (1,500MG) BY MOUTH 2 TIMES A DAY DX: / NURSE TO REORDER CHERIE: No Authorizing Provider: MIQUEL OBREGON APRN.CNP Allergies As of Date: 02/26/2022 Noted Allergy Reaction ASA (SALICYLATES) 06/13/2005 NICKEL 01/16/2013 2 - Rash TRILEPTAL (OXCARBAZEPINE) 06/13/2005 Date Reviewed: 11/11/2020 Reviewed by: Nancy Cervantes Ma - Fully Assessed Reason for Visit: Refill Request [94] Prescriptions as of 03/13/2022 - valproic acid (DEPAKENE) 250 mg/5 mL [...] mg by mouth daily at bedtime. - Btmzg-0-TUG-EPA-Fish Oil (FISH OIL) 1,000 mg (120 mg-180 [...] tablet by mouth once daily. For gout. - rOPINIRole (REQUIP) 1 mg tablet Take [...] one (1) tablet daily - without iron Problem List As Of Date 02/26/2022 Noted Resolved Mixed hyperlipidemia [E78.2] 10/29/2005 Convulsions (HCC) [R56.9] 11/06/2005 10/02/2020 Essential hypertension [I10] 11/06/2005 Generalized convulsive epilepsy (HCC) [G40.309] 11/13/2005 History of DVT (deep vein thrombosis) [Z86.718] 02/24/2011 Schizoaffective disorder, chronic condition (HC*07/14/2013 Medicare annual wellness visit, initial [Z00.00]11/09/2013 11/20/2019 Hypothyroid [E03.9] 01/19/2014 Leg cramps [R25.2] 01/19/2014 Hyperglycemia [R73.9] 01/19/2014 Metabolic syndrome [E88.81] 01/19/2014 (more content not included)... Normal [facility] Vital Signs Date Time Vital Sign Value Performing Clinician Faci lity 01-31-2025 11:23-0400 Body temperature 97.8 [degF] Dr. Avani Eduardo MD [facility] 01-31-2025 11:23-0400 Heart rate 87 /min Dr. Avani Eduardo MD [facility] 01-31-2025 11:23-0400 Respiratory rate 16 /min Dr. Avani Eduardo MD [facility] 01-31-2025 11:23-0400 SaO2% (BldA) [Mass fraction] 96 % Dr. Avani Eduardo MD [facility] 11-01-2024 10:46-0500 Body temperature 97.7 [degF] Out [facility] 11-01-2024 10:46-0500 Diastolic blood pressure 73 mm[Hg] Out [facility] 11-01-2024 10:46-0500 Heart rate 74 /min Out [facility] 11-01-2024 10:46-0500 Respiratory rate 16 /min Out [facility] 11-01-2024 10:46-0500 SaO2% (BldA) [Mass fraction] 95 % Out [facility] 11-01-2024 10:46-0500 Systolic blood pressure 134 mm[Hg] Out [facility] 01-18-2023 14:37-0400 Body temperature 98.2 [degF] Dr. Maddie Cantor [facility] 01-18-2023 14:37-0400 Diastolic blood pressure 65 mm[Hg] Dr. Maddie Cantor [facility] 01-18-2023 14:37-0400 Heart rate 93 /min Dr. Maddie Cantor [facility] 01-18-2023 14:37-0400 Respiratory rate 18 /min Dr. Maddie Cantor [facility] 01-18-2023 14:37-0400 SaO2% (BldA) [Mass fraction] 94 % Dr. Maddie Cantor [facility] 01-18-2023 14:37-0400 Systolic blood pressure 114 mm[Hg] Dr. Maddie Cantor [facility] 01-18-2023 02:19-0400 Body mass index (BMI) [Ratio] 35.9 kg/m2 Dr. Maddie Cantor [facility] 01-18-2023 02:19-0400 Body weight 91.[address] Maddie Cantor [facility] 01-15-2023 11:23-0400 Body height 160.[address] Maddie Cantor [facility] 01-10-2023 09:36-0400 Body temperature 98 [degF] Dr. Maddie Cantor [facility] 01-10-2023 09:36-0400 Diastolic blood pressure 54 mm[Hg] Dr. Maddie Cantor [facility] 01-10-2023 09:36-0400 Heart rate 76 /min Dr. Maddie Cantor [facility] 01-10-2023 09:36-0400 Respiratory rate 16 /min Dr. Maddie Cantor [facility] 01-10-2023 09:36-0400 SaO2% (BldA) [Mass fraction] 97 % Dr. Maddie Cantor [facility] 01-10-2023 09:36-0400 Systolic blood pressure 107 mm[Hg] Dr. Maddie Cantor [facility] 01-10-2023 01:40-0400 Body height 160.[address] Maddie Cantor [facility] 01-10-2023 01:40-0400 Body mass index (BMI) [Ratio] 35.3 kg/m2 Dr. Maddie Cantor [facility] 01-10-2023 01:40-0400 Body weight 90.[address] Maddie Cantor [facility] 01-07-2023 16:25-0400 Body temperature 99 [degF] Dr. Maddie MACIEL [facility] 01-07-2023 16:25-0400 Diastolic blood pressure 79 mm[Hg] Dr. Maddie Cantor [facility] 01-07-2023 16:25-0400 Heart rate 89 /min Dr. Maddie MACIEL [facility] 01-07-2023 16:25-0400 Respiratory rate 16 /min Dr. Maddie Cantor [facility] 01-07-2023 16:25-0400 SaO2% (BldA) [Mass fraction] 98 % Dr. Maddie Cantor [facility] 01-07-2023 16:25-0400 Systolic blood pressure 114 mm[Hg] Dr. Maddie Cantor [facility] 01-07-2023 12:51-0400 Body mass index (BMI) [Ratio] 37.8 kg/m2 Dr. Maddie Cantor [facility] 01-06-2023 06:00-0400 Body weight 96.[address] Maddie Cantor [facility] 12-31-2022 07:42-0400 Diastolic blood pressure 72 mm[Hg] [facility] 12-31-2022 07:42-0400 Heart rate 69 /min [facility] 12-31-2022 07:42-0400 Respiratory rate 15 /min [facility] 12-31-2022 07:42-0400 SaO2% (BldA) [Mass fraction] 98 % [facility] 12-31-2022 07:42-0400 Systolic blood pressure 139 mm[Hg] [facility] 12-31-2022 06:02-0400 Body height 160.02 cm [facility] 12-31-2022 06:02-0400 Body mass index (BMI) [Ratio] 34.2 kg/m2 [facility] 12-31-2022 06:02-0400 Body temperature 97.2 [degF] [facility] 12-31-2022 06:02-0400 Body weight 87.7 kg [facility] 11-16-2022 19:04-0500 Diastolic blood pressure 69 mm[Hg] [facility] 11-16-2022 19:04-0500 Heart rate 88 /min [facility] 11-16-2022 19:04-0500 Respiratory rate 16 /min [facility] 11-16-2022 19:04-0500 SaO2% (BldA) [Mass fraction] 97 % [facility] 11-16-2022 19:04-0500 Systolic blood pressure 143 mm[Hg] [facility] 11-16-2022 18:12-0500 Body height 175.26 cm [facility] 11-16-2022 18:12-0500 Body mass index (BMI) [Ratio] 27.6 kg/m2 [facility] 11-16-2022 18:12-0500 Body temperature 98.1 [degF] [facility] 11-16-2022 18:12-0500 Body weight 84.9 kg [facility] 08-12-2022 13:43-0500 Diastolic blood pressure 85 mm[Hg] [facility] 08-12-2022 13:43-0500 Heart rate 75 /min [facility] 08-12-2022 13:43-0500 Respiratory rate 15 /min [facility] 08-12-2022 13:43-0500 SaO2% (BldA) [Mass fraction] 98 % [facility] 08-12-2022 13:43-0500 Systolic blood pressure 132 mm[Hg] [facility] 08-11-2022 14:37-0500 Body height 160.02 cm [facility] Work Phone: 08-11-2022 14:37-0500 Body mass index (BMI) [Ratio] 37.2 kg/m2 [facility] 08-11-2022 14:37-0500 Body temperature 97.6 [degF] [facility] 08-11-2022 14:37-0500 Body weight 95.25 kg [facility] 07-06-2022 17:01-0400 Body temperature 97.6 [degF] [facility] Work Phone: 07-06-2022 17:01-0400 Diastolic blood pressure 69 mm[Hg] [facility] Work Phone: 07-06-2022 17:01-0400 Heart rate 71 /min [facility] Work Phone: 07-06-2022 17:01-0400 Respiratory rate 18 /min [facility] Work Phone: 07-06-2022 17:01-0400 SaO2% (BldA) [Mass fraction] 97 % [facility] Work Phone: 07-06-2022 17:01-0400 Systolic blood pressure 126 mm[Hg] [facility] Work Phone: 07-06-2022 11:41-0400 Body height 160.02 cm [facility] Work Phone: 07-06-2022 11:41-0400 Body mass index (BMI) [Ratio] 35.9 kg/m2 [facility] Work Phone: 07-06-2022 11:41-0400 Body weight 92.07 kg [facility] Work Phone: Encounters Encounter Date Encounter Type Care Provider Facility Start: 04-24-2025 ambulatory [facility] Facility:[facility] Start: 04-03-2025 ambulatory [facility] Facility:[facility] Start: 02-28-2025 ambulatory [facility] Facility:[facility] Start: 02-13-2025 Non-patient / Non-visit Dr. Eris gracia MD -[facility] Start: 02-13-2025 End: 02-13-[address] Avani Eduardo MD [facility] Work Phone: Start: 02-13-2025 End: 02-13-2025 Patient encounter procedure Kourtney SUERO -[facility] Work Phone: Start: 02-13-2025 End: 02-13-2025 ambulatory [facility] Facility:[facility] Start: 02-01-[address] Avani Eduardo MD -[facility] Start: 01-31-2025 End: 01-31-2025 Patient encounter procedure Kourtney SUERO -[facility] Work Phone: Start: 01-31-2025 End: 02-01-2025 ambulatory Avani Eduardo Facility:[facility] Start: 01-05-2025 End: 01-05-[address] Avani Eduardo MD [facility] Start: 01-05-2025 End: 01-05-2025 ambulatory Avani Eduardo Facility:[facility] Start: 01-03-2025 End: 01-03-[address] Avani Eduardo MD [facility] Start: 01-02-2025 End: 01-03-2025 ambulatory Avani Eduardo Facility:[facility] Start: 01-02-[address] Avani Eduardo MD [facility] Start: 12-06-2024 End: 12-06-2024 ambulatory Out of Town Doctor [facility] Work Phone: Start: 12-06-2024 End: 12-06-[address] Avani Eduardo MD [facility] Start: 12-06-2024 End: 12-06-2024 ambulatory Avanigómez Eduardo Facility:[facility] Start: 11-01-2024 End: 11-01-2024 Patient encounter procedure Kourtney SUERO -[facility] Work Phone: Start: 11-01-2024 End: 11-01-2024 ambulatory Avani Eduardo Facility:[facility] Start: 10-05-2024 End: 10-05-[address] Avani Eduardo MD [facility] Start: 10-05-2024 End: 10-05-2024 ambulatory Avanigómez Eduardo Facility:[facility] Start: 09-29-2024 End: 09-29-[address] Avani Eduardo MD [facility] Start: 09-29-2024 End: 09-29-2024 ambulatory Out of Town Doctor Facility:[facility] Start: 08-01-2024 End: 08-01-2024 ambulatory Out of Town Doctor Facility:[facility] Start: 06-28-2024 End: 06-28-2024 ambulatory Out of Town Doctor Facility:[facility] Start: 06-12-2024 ambulatory Out of Town Doctor Faci lity:[facility] Start: 05-03-2024 End: 05-03-2024 ambulatory Out of Town Doctor Facility:[facility] Start: 05-02-2024 End: 05-02-2024 ambulatory Out of Town Doctor Facility:[facility] Start: 05-01-2024 End: 05-01-2024 ambulatory Out of Town Doctor Facility:[facility] Start: 04-24-2024 End: 04-24-2024 ambulatory STANTON ANDREWS Not Available Start: 03-27-2024 End: 03-27-2024 ambulatory STANTON ANDREWS Not Available Start: 03-14-2024 End: 03-14-2024 ambulatory STANTON ANDREWS Not Available Start: 01-10-2024 End: 01-10-2024 ambulatory [facility] Work Phone: Start: 01-10-2024 End: 01-10-2024 Departed Referred [facility] Start: 01-10-2024 Registered Referred [facility] Start: 01-03-2024 End: 01-03-2024 ambulatory [facility] Work Phone: Start: 01-03-2024 End: 01-03-2024 Departed Referred [facility] Start: 12-15-2023 End: 12-15-2023 ambulatory [facility] Work Phone: Start: 12-15-2023 End: 12-15-2023 Departed Referred [facility] Start: 11-04-2023 End: 11-04-2023 ambulatory [facility] Work Phone: Start: 11-04-2023 End: 11-04-2023 Departed Referred [facility] Start: 11-04-2023 Registered Referred [facility] Start: 10-20-2023 End: 10-20-2023 ambulatory [facility] Work Phone: Start: 10-20-2023 End: 10-20-2023 Departed Referred [facility] Start: 10-11-2023 End: 10-11-2023 ambulatory [facility] Work Phone: Start: 10-11-2023 End: 10-11-2023 Departed Referred [facility] Start: 10-11-2023 Registered Referred [facility] Start: 10-05-2023 End: 10-05-2023 ambulatory [facility] Work Phone: Start: 10-05-2023 End: 10-05-2023 Departed Referred [facility] Start: 10-05-2023 Registered Referred [facility] Start: 09-22-2023 End: 09-22-2023 ambulatory [facility] Work Phone: Start: 09-22-2023 End: 09-22-2023 Departed Referred [facility] Start: 09-22-2023 Registered Referred [facility] Start: 09-16-2023 End: 09-16-2023 ambulatory STANTON ANDREWS Not Available Start: 09-13-2023 End: 09-13-2023 ambulatory [facility] Work Phone: Start: 09-13-2023 End: 09-13-2023 Departed Referred [facility] Start: 08-30-2023 End: 08-30-2023 ambulatory [facility] Work Phone: Start: 08-30-2023 End: 08-30-2023 Departed Referred [facility] Start: 08-23-2023 End: 08-23-2023 ambulatory [facility] Work Phone: Start: 08-23-2023 End: 08-23-2023 Departed Referred [facility] Start: 08-23-2023 Registered Referred [facility] Start: 05-24-2023 End: 05-24-2023 ambulatory [facility] Work Phone: Start: 05-24-2023 End: 05-24-2023 Departed Referred [facility] Start: 02-16-2023 Registered Referred [facility] Start: 02-09-2023 End: 02-09-2023 Departed Referred [facility] Start: 02-05-2023 End: 02-05-2023 Departed Referred [facility] Start: 01-18-2023 Non-patient / Non-visit Dr. Nelson MACIEL [facility] Start: 01-17-2023 Non-patient / Non-visit Dr. Nelson Cantor [facility] Start: 01-16-2023 Non-patient / Non-visit Dr. Nelson Cantor [facility] Start: 01-15-2023 Non-patient / Non-visit Dr. Nelson Cantor [facility] Start: 01-14-2023 Non-patient / Non-visit Dr. Nelson Cantor [facility] Start: 01-13-2023 Non-patient / Non-visit Dr. Nelson Cantor [facility] Start: 01-12-2023 Non-patient / Non-visit Dr. Nelson Cantor [facility] Start: 01-11-2023 Non-patient / Non-visit Dr. Nelson Cantor [facility] Start: 01-10-2023 End: 01-18-2023 Evaluation and management of inpatient Dr. Maddie MACIEL [facility]-Medical Surgical 3 Start: 01-10-2023 End: 01-18-[address] Mdadie Cantor [facility] Work Phone: Start: 01-08-2023 End: 01-09-2023 Evaluation and management of inpatient MADDIE CANTOR Facility:[facility] Start: 01-07-2023 Non-patient / Non-visit Dr. Nelson MACIEL [facility] Start: 01-06-2023 Non-patient / Non-visit Dr. Nelson MACIEL [facility] Start: 01-05-2023 Non-patient / Non-visit Dr. Nelson Cantor [facility] Start: 01-04-2023 Non-patient / Non-visit Dr. Nelson Cantor [facility] Start: 01-04-2023 End: 01-07-2023 Evaluation and management of inpatient Dr. Maddie Cantor [facility] Start: 12-31-2022 End: 12-31-2022 Emergency department patient visit [facility] Start: 11-16-2022 End: 11-16-2022 Emergency department patient visit [facility] Start: 09-29-2022 Refill Annia telles MD Work Phone: Neurology Comment on above: Refill Request Start: 08-11-2022 End: 08-12-2022 Emergency department patient visit [facility] Start: 07-31-2022 End: 07-31-2022 ambulatory MATEO BENTON Facility:[facility] Start: 07-31-2022 End: 07-31-2022 Patient encounter procedure Mateo Benton MD Work Phone: General Surgery Comment on above: Personal history of colon cancer (Primary Dx); History of colonic polyps Start: 07-14-2022 Telephone encounter Mateo crowder MD Work Phone: General Surgery Comment on above: Results Start: 07-06-2022 End: 07-06-2022 Admission to same day surgery center [facility]End[facility] Start: 07-06-2022 End: 07-06-2022 ambulatory [facility] Work Phone: Start: 04-14-2022 End: 04-14-2022 ambulatory MADELIN FERGUSON Facility:[facility] Start: 03-13-2022 Telephone encounter Annia joe MD Work Phone: Neurology Comment on above: Medication Question (Depakote XR) Start: 03-06-2022 End: 03-10-2022 Telemedicine consultation with patient Nils Marie RESIDENT CARE AIDE.COSMETIC CONSULTANT Work Phone: [facility] Start: 03-06-2022 End: 03-10-2022 ambulatory Nils Roy Maddykang RESIDENT CARE AIDE.COSMETIC CONSULTANT Work Phone: Neurology Comment on above: 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 Ruiz MACIEL Start: 01-10-2023 Plain chest X-ray Dr. Ruiz MACIEL Start: 01-05-2023 MRI of brain without contrast Dr. Maddie Cantor OLS Start: 01-05-2023 MRI of cervical spine Duane MACIEL Start: 01-04-2023 CT of head without contrast Dr. Maddie Cantor OLS Start: 01-04-2023 Plain chest X-ray Dr. Ruiz Cantor O[facility] Start: 12-31-2022 CT of head without contrast Start: 12-31-2022 X-ray of lumbar spin e, two or three views Start: 07-06-2022 Colonoscopy Start: 03-26-2017 Colonoscopy Miquel ruano RESIDENT CARE AIDE.COSMETIC CONSULTANT Work Phone: Bacteria identified in Urine by Culture Dr. Maddie Cantor OLS Urine culture Dr. Maddie MACIEL Viral antigen assay Viral antigen assay Plan of Treatment Date Care Activity Detail Author Start: 04-14-2023 BP CONTROLLED (<130/80) BP CONTROLLE D (<130/80) [facility] Start: 03-18-2023 DIABETES SCREEN DIABETES SCREEN [facility] Start: 01-18-2023 Patient discharge [facility] Start: 01-17-2023 [facility] Start: 01-16-2023 Speech therapy assessment [facility] Start: 01-15-2023 [facility] Start: 01-12-2023 Following clinical pathway protocol [facility] Start: 01-10-2023 Fall prevention [facility] Start: 01-10-2023 Provision of activit y privileges [facility] Start: 01-10-2023 Assessment of risk o f venous thromboembolism [facility] Start: 01-10-2023 Insertion of cathete r into peripheral vein [facility] Start: 01-10-2023 Providing care accor ding to standard [facility] Start: 01-10-2023 Referral to service [facility] Start: 01-10-2023 [facility] Start: 01-10-2023 Following clinical pathway protocol [facility] Start: 01-10-2023 Referral to occupati onal therapist [facility] Start: 01-10-2023 Referral to service [facility] Start: 01-10-2023 Admission procedure [facility] Start: 01-10-2023 Patient referral to dietitian [facility] Start: 01-07-2023 Patient discharge [facility] Start: 01-05-2023 Speech therapy assessment [facility] Start: 01-04-2023 Following clinical pathway protocol [facility] Start: 01-04-2023 Provision of activit y privileges [facility] Start: 01-04-2023 Aspiration precautions [facility] Start: 01-04-2023 Assessment of risk o f venous thromboembolism [facility] Start: 01-04-2023 Fall prevention [facility] Start: 01-04-2023 Insertion of cathete r into peripheral vein [facility] Start: 01-04-2023 Introduction of urin dinora catheter [facility] Start: 01-04-2023 Measuring intake and output [facility] Start: 01-04-2023 Providing care accor ding to standard [facility] Start: 01-04-2023 Referral to occupati onal therapist [facility] Start: 01-04-2023 Referral to service [facility] Start: 01-04-2023 Application of elast ic bandage [facility] Start: 01-04-2023 Continuous positive airway pressure ventilation treatment [facility] Start: 01-04-2023 Elevation of affecte d extremity [facility] Start: 01-04-2023 Neurological assessment [facility] Start: 01-04-2023 Wound care [facility] Start: 01-04-2023 End: 01-04-2023 [facility] Start: 01-04-2023 Admission procedure [facility] Start: 10-04-2022 ADVANCE DIRECTIVE DISCUSSION ADVANCE DIRECTIVE DISCUSSION [facility] Start: 08-11-2022 Referral to service [facility] Start: 08-11-2022 End: 08-11-2022 Suicide precautions [facility] Start: 07-06-2022 Colsc flx w/rmvl of tumor polyp lesion snare tq COLONOSCOPY W/LESION REMOVAL [facility] Work Phone: Start: 07-06-2022 Patient discharge [facility] Work Phone: Start: 06-27-2022 COVID-19 VACCINE (4 - Booster for Moderna series) COVID-19 VACCINE (4 - Booster for Moderna series) [facility] Start: 06-04-2022 Influenza vaccination [facility] Start: 04-21-2022 COVID-19 VACCINE (4 - Booster for Moderna series) COVID-19 VACCINE (4 - Booster for Moderna series) [facility] Start: 03-10-2022 End: 05-10-2022 Comprehensive metabolic 2000 panel - Serum or Plasma COMP METABOLIC PANEL Lab Routine 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) Expected: 03/10/2022, Expires: 05/10/2022 [facility] Work Phone: Comment on above: Expected: 03/10/2022 , Expires: 05/10/2022 Start: 03-10-2022 End: 05-10-2022 levETIRAcetam [Mass/volume] in Serum or Plasma LEVETIRACETAM Lab Routine 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) Expected: 03/10/2022, Expires: 05/10/2022 [facility] Work Phone: Comment on above: Expected: 03/10/2022 , Expires: 05/10/2022 Start: 03-10-2022 End: 05-10-2022 VALPROIC A/DEPAKENE VALPROIC A/DEPAKENE Lab Routine 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) Expected: 03/10/2022, Expires: 05/10/2022 [facility] Work Phone: Comment on above: Expected: 03/10/2022 , Expires: 05/10/2022 Start: 10-04-2021 ADVANCE DIRECTIVE DISCUSSION ADVANCE DIRECTIVE DISCUSSION [facility] Start: 11-20-2020 COVID-19 VACCINE (2 - Moderna 3-dose series) COVID-19 VACCINE (2 - Moderna 3-dose series) [facility] Start: 10-22-2020 LIPID SCREEN LIPID SCREEN [facility] Start: 03-26-2018 Colonoscopy COLONOSCOPY [facility] Start: 03-26-2018 COLORECTAL CANCER SCREENING COLORECTAL CANCER SCREENING [facility] Start: 09-19-2016 FECAL OCCULT BLOOD FECAL OCCULT BLOO D [facility] Start: 11-02-2015 PNEUMOCOCCAL: 65+ (#3) PNEUMOCOCCAL: 65+ (#3) [facility] Start: 11-02-2015 PNEUMOCOCCAL: 65+ (2 - PPSV23 or PCV20) PNEUMOCOCCAL: 65+ (2 - PPSV23 or PCV20) [facility] Start: 07-30-2015 SHINGRIX VACCINE (2 of 3) PALMA GRIX VACCINE (2 of 3) [facility] Start: 2014 PNEUMOVAX AGE 65 AND OVER WITH 5YR LOOKBACK (#1) PNEUMOVAX AGE 65 AND OVER WITH 5YR LOOKBACK (#1) [facility] Start: 06-06-2006 Urine microalbumin profile DTAP,TDAP,TD (1 - Tdap) [facility] Start: 1994 COLOGUARD (FIT-DNA) COLOGUARD (FIT-D NA) [facility] Start: [address] [facility] Start: 1994 SIGMOIDOSCOPY SIGMOIDOSCOPY Rachel zepeda [facility] Start: 1967 ANNUAL PCP TEAM CHANGE ROOM ATTENDANT RODNEY DISEASE VISIT ANNUAL PCP TEAM CHRONIC DISEASE VISIT [facility] Start: 1967 BP CONTROLLED (<130/80) BP CONTROLLE D (<130/80) [facility] Start: 1967 HEPATITIS C SCREENING HEPATITIS C SC BARRETT [facility] Patient Education [facility] Work Phone: Patient referral [facility] Work Phone: [facility] Immunizations Immunization Date Immunization Notes Care Provider Fa cility 07-21-2022 influenza, injectabl e, quadrivalent, preservative free [facility] 07-21-2022 influenza, seasonal, injectable Dr. Maddie Cantor [facility] 02-24-2022 Covid (Moderna) Dr. Maddie Cantor [facility] 11-18-2020 Covid (Moderna) Dr. Maddie Cantor [facility] 10-23-2020 Covid (Moderna) Dr. Maddie Cantor [facility] 07-26-2015 influenza, high dose seasonal, preservative-free Miquel Obregon RESIDENT CARE AIDE.COSMETIC CONSULTANT Work Phone: [facility] 06-04-2015 zoster vaccine, live Miquel guthrie RESIDENT CARE AIDE.COSMETIC CONSULTANT Work Phone: [facility] 11-02-2014 pneumococcal conjuga te vaccine, 13 valent Miquel Obregon RESIDENT CARE AIDE.COSMETIC CONSULTANT Work Phone: [facility] 08-04-2014 Influenza virus vaccine [facility] 08-02-2014 influenza, seasonal, injectable Miquel Obregon RESIDENT CARE AIDE.COSMETIC CONSULTANT Work Phone: [facility] 07-14-2013 influenza virus vacc ine, unspecified formulation Miquel Obregon RESIDENT CARE AIDE.COSMETIC CONSULTANT Work Phone: [facility] 06-05-2006 tetanus and diphther ia toxoids, adsorbed, preservative free, for adult use (2 Lf of tetanus toxoid and 2 Lf of diphtheria toxoid) Miquel Obregon RESIDENT CARE AIDE.COSMETIC CONSULTANT Work Phone: [facility] 07-30-2005 influenza virus vacc ine, unspecified formulation Miquel Obregon RESIDENT CARE AIDE.COSMETIC CONSULTANT Work Phone: [facility] Work Phone: 06-13-2005 tetanus and diphther ia toxoids, adsorbed, preservative free, for adult use (2 Lf of tetanus toxoid and 2 Lf of diphtheria toxoid) Miquel Obregon RESIDENT CARE AIDE.COSMETIC CONSULTANT Work Phone: [facility] Work Phone: 09-11-1997 pneumococcal polysaccharide vaccine, 23 valent Miquel Obregon RESIDENT CARE AIDE.COSMETIC CONSULTANT Work Phone: [facility] Work Phone: Payers Date Payer Category Payer Unknown [id number] 2024 Self-pay [id number] 2024 Unknown [id number] 2023 Medicare [id number] 2017 Medicaid UHC MEDICAID [facility] MEDICAID [id number] 2017-Present [phone] [address] [place] [address] Medicaid [id number] 2017 Medicaid [facility] MEDICAID [facility] MEDICAID [id number] 2017-Present [phone] [address] [place] [address] Medicaid [id number] 2017 Medicare [id number] 2017 Unknown [id number] 1950 Unknown [id number] 1949 Unknown [id number] 2.16.840.1.263950.3.579.2.1259 1949 Unknown [id number] 2.16.840.1.483628.3.579.2.1259 1949 Unknown [id number] 2.16.840.1.858965.3.579.2.1259 Medicare [id number] Medicare MEDICARE PART A B [id number] Unknown [id number] [id number] Unknown [id number] 2.16.840.1.931862.3.579.2.462 Unknown [id number] 2.16.840.1.156131.3.579.2.462 Unknown [id number] 2.16.840.1.223776.3.579.2.462 Unknown [id number] 2.16.840.1.681646.3.579.2.462 Unknown [id number] 2.16.840.1.475344.3.579.2.462 Unknown [id number] 2.16.840.1.422108.3.579.2.462 Unknown [id number] 2.16.840.1.096676.3.579.2.462 Unknown [id number] 2.16.840.1.702259.3.579.2.462 Unknown [id number] 2.16.840.1.083641.3.579.2.462 Unknown [id number] 2.16.840.1.814100.3.579.2.462 Unknown [id number] 2.16840.1.953564.3.579.2.462 Unknown [id number] 2.16840.1.659763.3.579.2.462 Unknown [id number] 2.16840.1.885053.3.579.2.462 Unknown [id number] 2.16.840.1.312933.3.579.2.462 Unknown [id number] 2.16840.1.184332.3.579.2.462 Unknown [id number] 2.16840.1.615419.3.579.2.462 Unknown [id number] 2.16840.1.074406.3.579.2.462 Unknown [id number] 2.16840.1.863549.3.579.2.462 Unknown [id number] [id number] Social History Date Type Detail Facility Start: 07-31-2015 End: 01-10-2023 Tobacco smoking status NHIS Never smoked tobacco [facility] Start: 11-11-2020 End: 07-31-2022 Alcohol intake Current non-drinker of alcohol (finding) [facility] Start: 1950 Sex Assigned At Not on file [facility] Start: 01-17-2022 End: 07-31-2022 Exposure to SARS-CoV-2 (event) Not sure [facility] Start: 07-01-2022 End: 01-10-2023 Tobacco smoking status NJIS Unknown if ever smoked [facility] Start: 04-14-2022 None [facility] Start: 07-11-2019 - [facility] Start: 04-14-2022 Non-smoker [facility] Start: 1950 Sex Assigned At Male [facility] Start: 07-31-2015 Tobacco use and exposure Smokeless tobacco non-user [facility] Start: 01-02-2025 Sex Male (finding) [facility] Goals Date Patient Goal Desired Activity /State Functional Status Date Assessment Result Facility 01-18-2023 Functional status Chair [facility] Work Phone: 01-07-2023 Functional status Activity Abili ty With Assist of 1 [facility] Work Phone: 01-06-2023 Functional status Ambulates [facility] Work Phone: Mental Status Date Assessment Result Facility 01-18-2023 Cognitive function Voice/Name [facility] [facility] Work Phone: 01-10-2023 Cognitive function Level Of Cons ciousness Awake;Alert;Appropriate;Follow s Commands [facility] Work Phone: 01-07-2023 Cognitive function Voice/Name [facility] Work Phone: 07-06-2022 Cognitive function Drowsy [facility] Work Phone: 07-06-2022 Cognitive function Arousable To Voice/Nam e [facility] Work Phone: Clinical Notes 01-28-2016 to 11-01-2024 Note Date & Type Note Facility 11-01-2024 Evaluation note Diagnosis Onset Date Resolution Bilateral lower extremity edema acute November 01 10:09am PVD (peripheral vascular disease) acute November 01, 2024 10:09am [facility] Work Phone: 1(112) 891-543001-29-2025 Evaluation note* Diagnosis Onset Date Resolution Status Admit Date Bilateral lower extremity edema acute November 01 10:09am PVD (peripheral vascular disease) acute November 01 10:09am Bilateral lower extremity edema acute January 31, 2025 11:04am PVD (peripheral vascular disease) acute January 31, 2025 11:04am [facility] Work Phone: 1(433) 147-115204-17-[address] Recio [facility] January 18, 2023 2:44pm Note Date/Time January 18, 2023 2:4 4pm [facility] Medical Records Department [facility] [place] [address] Discharge Summary 01/18/23 1438 MR#: [id number] Acct: [id number] Name: ANJEL ROSS Rep #:[id number] : 1950 72 From: Kary Recio MD PCP: NILS CANTOR Status:ADM PAIGE Location: [place] [id number] Providers Date of Admission: 01/10/23 Date of Discharge: 01/18/23 Primary Care Physician: NILS CANTOR Reason For Visit: WEAKNESS AND DEBILITY Diagnosis Discharge Diagnosis (1) Weakness: Status: Acute Code(s): R53.1 - Weakness Plan #Debility and weakness * admit to med surg * CBC and BMP are unremarkable * consult PT/OT * fall precautions * Assisted Living Facility refusing to take him back. * will need placement * #History of seizures: On valproic acid and Keppra #Hyperlipidemia: On statin #History of gout: On allopurinol #Hypothyroidism: On Synthroid. Check TSH #Depression: On olanzapine and venlafaxine #History of ataxia: * There was concern that he had NPH and so was transferred [facility] recently. * He was reviewed there and the symptoms were not thought to be due to NPH but rather due to elevated lipoic acid levels. * PT OT on board. For precautions. #Hypertension: On spironolactone and Bumex DVT prophylaxis: Lovenox CODE STATUS:DNRCCA no intubation * Patient counseled extensively about different types of CODE STATUS including full code, DNR CCA and DNR CCA. Patient elects to be DNRCCA . This was confirmed from documentation he brought from [facility]. * Total qruw-ds-voqw time 17 minutes. Total time spent on evaluation and management of patient, reviewing chart, discussing plan with patient, discussion with nursing and ancillary staff as well as documentation: 60 mins Medications at Discharge Home Medications alendronate 70 mg tablet 70 mg PO LEON OSTEOPOROSIS 12/07/16 allopurinol 100 mg tablet 100 mg PO QHS GOUT 12/07/16 atorvastatin 40 mg tablet 40 mg PO QHS CHOLESTEROL 12/07/16 clopidogrel 75 mg tablet 75 mg PO DAILY ANTIPLATELET 12/07/16 finasteride 5 mg tablet 5 mg PO DAILY PROSTATE 12/07/16 levothyroxine 50 mcg tablet 50 mcg PO DAILY THYROID 12/07/16 ascorbic acid (vitamin C) 500 mg capsule 500 mg PO DAILY@1200 SUPPLEMENT 03/17/19 montelukast 10 mg tablet 10 mg PO QHS ALLERGIES 03/17/19 pantoprazole 40 mg tablet,delayed release 40 mg PO DAILY ACID REFLUX 03/17/19 cholecalciferol (vitamin D3) 50 mcg (2,000 unit) capsule 2,000 unit PO DAILY SUPPLEMENT 07/11/19 magnesium oxide 400 mg (241.3 mg magnesium) tablet 400 mg PO QHS SUPPLEMENT 07/11/19 potassium chloride 20 mEq tablet,extended release(part/cryst) 20 meq PO BID SUPPLEMENT 07/11/19 ropinirole 1 mg tablet 1 mg PO TID SEIZURES 07/11/19 loratadine 10 mg capsule 10 mg PO QHS 07/15/20 olanzapine 5 mg disintegrating tablet 10 mg PO QHS DEPRESSION 07/15/20 spironolactone 25 mg tablet 25 mg PO QODAY DIURETIC 07/15/20 venlafaxine 150 mg capsule,extended release 24 hr 150 mg PO DAILY DEPRESSION 07/15/20 valproic acid (as sodium salt) 250 mg/5 mL oral solution 1,000 mg PO TID 07/01/22 bumetanide 1 mg tablet 2 mg PO DAILY DIURETIC 01/04/23 levetiracetam 750 mg tablet 1,500 mg PO BID seizures 01/04/23 alfuzosin 10 mg tablet,extended release 24 hr 10 mg PO QHS urinary urgency 01/10/23 ferrous gluconate 270 mg (27 mg iron) tablet 270 mg PO DAILY supplement 01/10/23 omega 3-yhq-vad-fish oil 1,000 mg (120 mg-180 mg) capsule 1 cap PO BID 01/10/23 pregabalin 200 mg capsule 200 mg PO TID 01/10/23 sucralfate 1 gram tablet 1 g PO TIDCM 01/10/23 lactulose 20 gram/30 mL oral solution 20 g (30 mL) PO TID #3,000 mL 01/18/23 Hospital Course Operations None Procedures None Summary of Care Provided Minutes Spent on Discharge: 45 Hospital Course: ANJEL ROSS, is a 72 M with a PMH as outlined who presents via the ED on 01/10/2023 with a complaint of weakness. He was brought in from his assisted living facility for generalised weakness and debility. He had recently been seenin our ED for weakness and lethargy and imaging was concerning for NPH and foundto have elevated valproic acid levels. He was transferred to [facility] where his symptoms were thought to be due to his elevated valproic acidlevel, and not NPH. His dose of valproic acid levels were adjusted and he was discharged back to his Assisted Living Facility, from where he presented to the ED this time.? He denied any headache, blurred vision, chest pain, palpitations,dizziness, nausea or vomiting or diarrhea or any other symptoms.? Review of systems was otherwise negative.? He was hemodynamically stable. Vitals in the ED were blood pressure 133/83, pulse rate of 64 respiratory rate of 17 with oxygen saturation of 96% on room air.? CBC showed hemoglobin of 12.3 with WBC of 10.4 and platelets of 168.? Chemistry was unremarkable and urinalysis showed no evidence of UTI.? Chest x-ray showed no acute cardiopulmonary process.? Patient was with physical therapy in the ED and plan was to discharge him back to his facility.? However the assisted living facility staff refused totake him back because they were concerned he wouldnt be safe in the facility.? He was admitted to be managed for debility and generalized weakness and is for placement. Case management was consulted. Hospital course was complicated by elevated ammonia for which she was started on lactulose. His confusion did improve. His Depakote level was not elevated. He also did have some CO2 retention during hospital but this improved. Patient was called for alf and was discharged to the residential facility on 01/18/2023. He was discharged on p.o. lactulose. He is to follow-up with his primary care doctor and is to have monitoring of his ammonia level in the alf. Was referred to gastroenterology on outpatient basis on account of elevated ammonia. Patient seen and examined prior to discharge. He had no complaints and had an uneventful night. Review of systems otherwise negative. Labs and vitals reviewed. Home medication reviewed and reconciled. Physical Exam Const alert, oriented x3 and no apparent distress Constitutional Narrative: frail, stooped over General Appearance: cooperative and comfortable HEENT normocephalic, head/scalp atraumatic, hearing grossly normal bilaterally and moist oral mucous membranes Eyes PERRL, EOMs intact bilaterally and conjunctivae normal Neck no lymphadenopathy and supple Resp normal respiratory effort, no retractions, no use of accessory muscles and clearto auscultation bilaterally Cardio regular rate, regular rhythm, S1 normal heart sound, S2 normal heart sound and no murmurs GI normal to inspection, nondistended, normoactive bowel sounds, soft to palpation,non-tender and non-distended Extremity normal to inspection and full ROM Neuro oriented x3, CN's II-XII intact bilaterally, moves all extremities and no focal motor deficits Sensorium / Orientation: awake and alert Motor Exam: strength 5/5 throughout Psych affect normal Weight / BMI Weight Weight: 202 lb 9.677 oz Body Mass Index (BMI) 35.9 ABG / Lab / Microbiology Data Result Diagrams: 01/18/23 05:29 01/18/23 05:29 Laboratory: Laboratory Results - last 24 hr 01/18/23 05:29: WBC 5.4, RBC 2.97 L, Hgb 9.9 L, Hct 31.1 L, MCV 104.7 H, MCH 33.3 H, MCHC 31.8 L, RDW Std Deviation 52.2 H, RDW Coeff of Ronna 13.4, Plt Count 137 L, MPV 8.7, Immature Gran % (Auto) 1.100 H, Neut % (Auto) 44.0 L, Lymph % (Auto) 38.8, [place] % (Auto) 13.7 H, Eos % (Auto) 1.7, Baso % (Auto) 0.7, AbsoluteNeuts (auto) 2.4, Absolute Lymphs (auto) 2.09, Nucleated RBC % 0 01/18/23 05:29: Sodium 142, Potassium 4.0, Chloride 110 H, Carbon Dioxide 29.0, Anion Gap 3 L, BUN 15, Creatinine 0.48 L, Estim Creat Clear Calc 52.95, Est GFR (MDRD) Af Amer 217, Est GFR (MDRD) Non-Af 179, BUN/Creatinine Ratio 30.9 H, Glucose 102, Calcium 8.5, Total Bilirubin 0.20, AST 14 L, ALT 10 L, Alkaline Phosphatase 38 L, Total Protein 4.5 L, Albumin 2.1 L, Globulin 2.4, Albumin/Globulin Ratio 0.9 01/18/23 05:29: Ammonia 73.0 H D/C Instructions Discharge Diet: Low fat / Low cholesterol Discharge Activity: Return to Normal Activity Weight Bearing Status: Weight bearing as tolerated Call your doctor if you observe: Fever of 101 or Higher, Shortness of breath, Dizziness, Swelling in the ankles, Chest pain and Increased palpitations (irregular heartbeat) Meaningful Use Info Meaningful Use Diagnoses (Choose all that apply): None applicable Discharge Plan Admission Admit Date/Time: 01/10/23 09:22 Primary Reason for Your Visit: altered mental status, weakness, lethargy Attending Provider: Kary Recio Primary Care Provider: NILS CANTOR Consulting Providers: Kary Recio ; Nina Wilder Instructions Patient Instructions: ED Weakness (Uncertain Cause) Additional Instructions / Restrictions: DISCHARGE INSTRUCTIONS PLEASE READ -Continue your home medications -Your valproic acid level is on the high end of the therapeutic range, would recommend repeating level in 3 to 5 days to verify no further adjustments need to be made -Please call your primary care provider's office upon discharge to schedule a hospital follow up within 1 week. -For any concerning signs or symptoms please call 911 or proceed to the nearest emergency department Discharge Orders/Prescriptions Prescriptions: New lactulose 20 gram/30 mL solution 20 g PO TID Qty: 3000 2RF Rx Instructions: titrate until patient is having 2-3 loose stools daily Continued ascorbic acid (vitamin C) 500 mg capsule 500 mg PO DAILY@1200 pantoprazole 40 mg tablet,delayed release (DR/EC) 40 mg PO DAILY montelukast 10 mg tablet 10 mg PO QHS loratadine 10 mg capsule 10 mg PO QHS atorvastatin 40 MG tablet 40 mg PO QHS alendronate 70 MG tablet 70 mg PO LEON clopidogrel 75 MG tablet 75 mg PO DAILY allopurinol 100 MG tablet 100 mg PO QHS levothyroxine 50 MCG tablet 50 mcg PO DAILY finasteride 5 MG tablet 5 mg PO DAILY spironolactone 25 mg tablet 25 mg PO QODAY olanzapine 5 mg tablet,disintegrating 10 mg PO QHS ropinirole 1 MG tablet 1 mg PO TID potassium chloride 20 MEQ tablet,ER particles/crystals 20 meq PO BID magnesium oxide 400 MG tablet 400 mg PO QHS cholecalciferol (vitamin D3) 2,000 UNIT capsule 2,000 unit PO DAILY venlafaxine 150 mg capsule,extended release 24hr 150 mg PO DAILY valproic acid (as sodium salt) 250 mg/5 mL Solution 1,000 mg PO TID bumetanide 1 mg Tablet 2 mg PO DAILY levetiracetam 750 mg Tablet 1,500 mg PO BID sucralfate 1 gram Tablet 1 g PO TIDCM alfuzosin 10 mg tablet extended release 24 hr 10 mg PO QHS Label Comments: 1 TABLET BY MOUTH ATABEDTIME DX: URINARY URGENCYSR pregabalin 200 mg Capsule 200 mg PO TID omega 6-fng-yvc-fish oil 1,000 mg (120 mg-180 mg) Capsule 1 cap PO BID ferrous gluconate 270 mg (27 mg iron) Tablet 270 mg PO DAILY Discontinued acetaminophen 325 mg tablet 1,300 mg PO BID Label Comments: [facility]1300[facility] / DX:E Referrals / Follow Up: NILS CANTOR [Other] NILS CANTOR [Other] Doctor,Your [Non-Staff] - 1 Day for another exam Disposition Disposition (needs filled in before D/C Order can be placed): [facility] Facility Charges/Coding Visit Charges Inpatient E&M: 10553 Disch Hosp >30min 01/18/23 1444 <Electronically signed by Kary Recio MD> Cosigner Signature (if applicable): CC: Dr. Kary Recio MD; NILS CANTOR~ Signed [facility] Work Phone: 1(276) 273-899504-17-[address] Recio [facility] January 18, 2023 2:38pm Note Date/Time January 18, 2023 2:3 8pm [facility] Medical Records Department [address] [place] [address] Transfer to [facility] MR#: [id number] Acct: [id number] Name: ANJEL ROSS Rep #:[id number] : 1950 72 From: Kary Recio MD PCP: NILS CANTOR Status:ADM PAIGE Certification of patient admission REQUIRED AT TIME OF ADMISSION. I CERTIFY THAT POST-HOSPITAL ECF SERVICES ARE REQUIRED TO BE GIVEN ON AN IN-PATIENT BASIS BECAUSE OF THE ABOVE NAMED PATIENT'S NEED FOR USP CARE ON A CONTINUING BASIS FOR THE CONDITION(S) FOR WHICH HE/SHE WAS RECEIVING IN-PATIENT HOSPITAL SERVICES PRIOR TO HIS/HER TRANSFER TO THE F. 01/18/23 1438<Electronically signed by Kary Recio MD> Diet Diet Order/Speech Therapy: 01/10/23 12:23 Diet: Cardiac - Heart Healthy Food consistency:: Regular Liquid Consistency:: Regular/Thin Is pt able to select menu?: Yes Routine Orders/Code Status Enema Type: Fleetz Suppository Type: Dulcolax 10mg Suppository Frequency: Daily PRN O2 Frequency: PRN Wound(s) L ankle: Wound Type: Laceration Therapies Weight Bearing: Weight bearing as tolerated Physical Therapy: Eval and Treat Occupational Therapy: Eval and Treat Problem/Diagnosis (1) Weakness: Status: Acute Code(s): R53.1 - Weakness Plan #Debility and weakness * admit to med surg * CBC and BMP are unremarkable * consult PT/OT * fall precautions * Assisted Living Facility refusing to take him back. * will need placement * #History of seizures: On valproic acid and Keppra #Hyperlipidemia: On statin #History of gout: On allopurinol #Hypothyroidism: On Synthroid. Check TSH #Depression: On olanzapine and venlafaxine #History of ataxia: * There was concern that he had NPH and so was transferred [facility] recently. * He was reviewed there and the symptoms were not thought to be due to NPH but rather due to elevated lipoic acid levels. * PT OT on board. For precautions. #Hypertension: On spironolactone and Bumex DVT prophylaxis: Lovenox CODE STATUS:DNRCCA no intubation * Patient counseled extensively about different types of CODE STATUS including full code, DNR CCA and DNR CCA. Patient elects to be DNRCCA . This was confirmed from documentation he brought from [facility]. * Total eryv-at-rzrh time 17 minutes. Total time spent on evaluation and management of patient, reviewing chart, discussing plan with patient, discussion with nursing and ancillary staff as well as documentation: 60 mins Allergies/Procedures Done in Hospital Allergies aspirin Allergy (Verified 01/10/23 01:40) cant remember rxn nickel Allergy (Verified 01/10/23 01:40) Other oxcarbazepine [From Trileptal] Allergy (Verified 01/10/23 01:40) cant remember rxn Procedures: None Type of Care/Length of Stay Estimated LOS: Convalescent Care Less Than 30 days Type of Care Needed: Skilled Rehab Potential: Fair Prognosis: Fair Additional Orders/Day of Discharge Day of Discharge: 01/18/23 Dietary and Speech Recommendations Dietitian Recommendations/Changes: continue cardiac diet as tolerated; consider liberalizing to regular and/or adding Ensure w/ medpass if PO intake is poor at meals. Discharge Plan Admission Admit Date/Time: 01/10/23 09:22 Primary Reason for Your Visit: altered mental status, weakness, lethargy Attending Provider: Kary Recio Primary Care Provider: NILS CANTOR Consulting Providers: Kary Recio ; Nina Wilder Instructions Patient Instructions: ED Weakness (Uncertain Cause) Additional Instructions / Restrictions: DISCHARGE INSTRUCTIONS PLEASE READ -Continue your home medications -Your valproic acid level is on the high end of the therapeutic range, would recommend repeating level in 3 to 5 days to verify no further adjustments need to be made -Please call your primary care provider's office upon discharge to schedule a hospital follow up within 1 week. -For any concerning signs or symptoms please call 911 or proceed to the nearest emergency department Discharge Orders/Prescriptions Prescriptions: New lactulose 20 gram/30 mL solution 20 g PO TID Qty: 3000 2RF Rx Instructions: titrate until patient is having 2-3 loose stools daily Continued ascorbic acid (vitamin C) 500 mg capsule 500 mg PO DAILY@1200 pantoprazole 40 mg tablet,delayed release (DR/EC) 40 mg PO DAILY montelukast 10 mg tablet 10 mg PO QHS loratadine 10 mg capsule 10 mg PO QHS atorvastatin 40 MG tablet 40 mg PO QHS alendronate 70 MG tablet 70 mg PO LEON clopidogrel 75 MG tablet 75 mg PO DAILY allopurinol 100 MG tablet 100 mg PO QHS levothyroxine 50 MCG tablet 50 mcg PO DAILY finasteride 5 MG tablet 5 mg PO DAILY spironolactone 25 mg tablet 25 mg PO QODAY olanzapine 5 mg tablet,disintegrating 10 mg PO QHS ropinirole 1 MG tablet 1 mg PO TID potassium chloride 20 MEQ tablet,ER particles/crystals 20 meq PO BID magnesium oxide 400 MG tablet 400 mg PO QHS cholecalciferol (vitamin D3) 2,000 UNIT capsule 2,000 unit PO DAILY venlafaxine 150 mg capsule,extended release 24hr 150 mg PO DAILY valproic acid (as sodium salt) 250 mg/5 mL Solution 1,000 mg PO TID bumetanide 1 mg Tablet 2 mg PO DAILY levetiracetam 750 mg Tablet 1,500 mg PO BID sucralfate 1 gram Tablet 1 g PO TIDCM alfuzosin 10 mg tablet extended release 24 hr 10 mg PO QHS Label Comments: 1 TABLET BY MOUTH ATABEDTIME DX: URINARY URGENCYSR pregabalin 200 mg Capsule 200 mg PO TID omega 0-uny-gdm-fish oil 1,000 mg (120 mg-180 mg) Capsule 1 cap PO BID ferrous gluconate 270 mg (27 mg iron) Tablet 270 mg PO DAILY Discontinued acetaminophen 325 mg tablet 1,300 mg PO BID Label Comments: 4 TABLETS (1300MG) [facility] DA[facility] / DX:E Referrals / Follow Up: NILS CANTOR [Other] NILS CANTOR [Other] Doctor,Your [Non-Staff] - 1 Day for another exam Disposition Disposition (needs filled in before D/C Order can be placed): [facility] Facility 01/18/23 1438 <Electronically signed by Kary Recio MD> Cosigner Signature (if applicable): CC: Dr. Kary Recio MD; Dr. Nina Wilder MD; NILS CANTOR ~ [facility] Work Phone: 1(708) 820-179204-16-[address] Wilder [facility] January 17, 2023 3:08pm Note Date/Time January 17, 2023 7:4 6am [facility] Medical Records Department [address] [place] [id number] Progress Note - Hospitalist 01/17/23 0746 MR#: [id number] Acct: [id number] Name: ANJEL ROSS Rep #:[id number] : 1950 72 From: Nina Wilder MD PCP: NILS CANTOR Status:ADM PAIGE [id number] Reason for Visit Reason for Visit: Diagnoses Weakness (01/10/23) Subjective Subjective Somewhat sleepy this morning, ammonia still elevated Objective Data Objective Data Vital Signs: Vital Signs Temp Pulse Resp BP Pulse Ox O2 Del Method 98.2 F 77 16 110/56 L 94 Room Air 01/17/23 04:42 01/17/23 04:42 01/17/23 04:42 01/17/23 04:42 01/17/23 04:42 01/17/23 04:42 Oxygen Delivery Method Room Air Weight: 92 kg Body Mass Index (BMI) 35.9 Intake & Output: Intake and Output for Last 24 Hours 01/15/23 01/16/23 01/17/23 23:59 23:59 23:59 Intake Total 800 / 1100 670 / 670 Balance 800 / 1100 670 / 670 Lab / Micro Data Result Diagrams: 01/17/23 04:28 01/17/23 04:28 Labs: Laboratory Results - last 24 hr 01/16/23 07:04: Sodium 140, Potassium 4.6, Chloride 108 H, Carbon Dioxide 28.0, Anion Gap 4 L, BUN 18, Creatinine 0.64 L, Estim Creat Clear Calc 52.95, Est GFR (MDRD) Af Amer 157, Est GFR (MDRD) Non-Af 130, BUN/Creatinine Ratio 28.0 H, Glucose 93, Calcium 9.0, Total Bilirubin 0.30, AST 30, ALT 12 L, Alkaline Phosphatase 40 L, Total Protein 5.6 L, Albumin 2.4 L, Globulin 3.2, Albumin/Globulin Ratio 0.8 L 01/16/23 11:50: Ammonia 84.0 H 01/16/23 11:50: Valproic Acid 91 01/16/23 11:50: B-Natriuretic Peptide 15.2 01/17/23 04:28: WBC 6.0, RBC 3.26 L, Hgb 10.9 L, Hct 33.7 L, MCV 103.4 H, MCH 33.4 H, MCHC 32.3, RDW Std Deviation 52.3 H, RDW Coeff of Ronna 13.6, Plt Count 183, MPV 8.9, Immature Gran % (Auto) 1.500 H, Neut % (Auto) 41.2 L, Lymph % (Auto) 41.7 H, [place] % (Auto) 13.0 H, Eos % (Auto) 1.8, Baso % (Auto) 0.8, Absolute Neuts (auto) 2.5, Absolute Lymphs (auto) 2.51, Nucleated RBC % 0 01/17/23 04:28: Sodium 142, Potassium 3.9, Chloride 108 H, Carbon Dioxide 32.0, Anion Gap 2 L, BUN 16, Creatinine 0.50 L, Estim Creat Clear Calc 52.95, Est GFR (MDRD) Af Amer 208, Est GFR (MDRD) Non-Af 172, BUN/Creatinine Ratio 31.7 H, Glucose 86, Calcium 8.6 01/17/23 04:28: Ammonia 88.0 H ABG Data ABG results: ABG 01/16/23 11:37 Specimen Type ART Sample Site R Radial pH 7.42 Bicarbonate Actual 31.9 H Total CO2 33 Base Excess 7 H O2 Saturation 94 L O2 % 21 ABG pCO2 49.8 H ABG pO2 70 L Heraclio Test Positive O2 Delivery Device Room Air Radiography Diagnostic Testing: Radiology Impression Chest X-Ray 01/16/23 12:40 IMPRESSION: Degenerative changes, as described above. No demonstrated acute cardiopulmonary process. Electronically Signed: Ben Fraire MD at 14:28 EDT , Rhythm Strip Rhythm Strip: Sinus Tach Rate: 105 Ectopy: None Physical Exam Narrative general: Sleeping in chair, does wake up and interact but falls back asleep HEENT: Atraumatic Eyes: Eyes resting comfortably Neck: Supple Respiratory: Clear to auscultation bilaterally, normal respiratory effort Cardiovascular: Regular rate and rhythm GI: Soft, nontender, nondistended Extremities: Trace to 1+ lower extremity edema Musculoskeletal: Moving all extremities Neuro: Has what appeared to be some chronic tremors Skin: No rashes appreciated Psych: Attempts to be cooperative and more sleepy today Assessment & Plan Assessment/Plan (1) Weakness: PLAN: Plan #Debility and weakness -Pt very weak and assisted living did not feel he was safe for their facility after his d/c from [facility] -PT recommends rehab/snf/tcu -Given mental health history will have to be evaluated prior to transfer to facility -01/12: Awaiting placement -01/15: Awaiting level 2 eval for placement -01/16: Patient awake alert and doing well this a.m. however received message that he was more tired and weak later in the morning. Patient was laying back further than he had been earlier and neck was flexed more so than usual, may have had slight CO2 retention. ABG did show PCO2 49.8. Patient seemed to improve once laid back with neck in a more neutral position. Awaiting ammonia and Depakote level as well as chest x-ray. Though less suspicion that he aspirated he does have neck flexed forward at baseline and eats, will consult speech speech therapy for evaluation -01/17: Awaiting level 2 evaluation for placement #Hyperammonemia -Noted 01/16 and started on lactulose, remains elevated 01/17 and lactulose increased, Depakote decreased We will need to repeat Depakote level #Hypertension -On spironolactone and Bumex -01/14: BP on the low end today so labs checked, white count within normal limits, kidney function roughly unchanged. Held home diuretics, suspect it may make him slightly volume down. We will check labs again in the a.m. and continue to monitor BP -01/15: Improved with holding of diuretics, will continue monitoring labs and daily weights while admitted -01/17: Weight is increasing given holding of diuretics, will resume Bumex but at1 mg. Monitor potassium, may need to resume supplementation with resumption of Bumex #History of seizures -On valproic acid and Keppra. -01/12: Depakote level 84, would recommend checking again in 1 to 2 weeks to verify no significant abnormalities. Additionally ammonia 34, lower than it hadbeen in the past but with his tremors will give dose of lactulose -01/13: Depakote level today 97, high end of therapeutic but not to toxic level, continue to monitor, may need dose adjustments. Additionally given 20 g of lactulose with ammonia 35 -01/16: Repeating ammonia and Depakote level -01/17: Hyperammonemia Noted 01/16 and started on lactulose, remains elevated 01/17and lactulose increased, Depakote decreased We will need to repeat Depakote level in next several days #Hyperlipidemia -On statin #History of gout -On allopurinol #Hypothyroidism -On Synthroid. #Hx schizophrenia -On olanzapine and venlafaxine #hx KYA per documentation -CPAP qhs ordered #History of ataxia: -[facility] that [facility]He was reviewed there and the symptoms were not thought to be due to NPH but rather due to elevated VPA acid levels. -PT OT on board. Fall precautions. DVT prophylaxis: Lovenox sub q Total time spent on evaluation and management of patient, reviewing chart, discussing plan with patient, discussion with nursing and ancillary staff as well as documentation: 30 mins Charges/Coding Visit Charges Inpatient E&M: 63574 Subs Hosp L2 01/17/23 1508 <Electronically signed by Nina Wilder MD> Cosigner Signature (if applicable): CC: ~ Signed [facility] Work Phone: [phone]) 859-653804-15-[address] Wilder [facility] January 16, 2023 11:52am Note Date/Time January 16, 2023 10: 27am [facility] Medical Records Department [address] [place] [address] Progress Note - Hospitalist 01/16/23 1026 MR#: [id number] Acct: [id number] Name: ANJEL ROSS Rep #:[id number] : 1950 72 From: Nina Wilder MD PCP: NILS CANTOR Status:ADM PAIGE Location: [place] [address] Reason for Visit Reason for Visit: Diagnoses Weakness (01/10/23) Subjective Subjective Originally this a.m. patient sitting up and doing well in no acute distress. Was called later in the a.m. due to patient being tired and weak. Went to bedside, patient semirecumbent with neck flexed, though it always remains flexedwas slightly more so than previous, would wake up and answer questions. Was assisted back into bed. ABG, labs, chest x-ray ordered however patient already seemed to be doing better once he was laid back in bed with head and slightly more neutral position. We will monitor closely and follow-up on labs this a.m. Objective Data Objective Data Vital Signs: Vital Signs Temp Pulse Resp BP Pulse Ox O2 Del Method 98.0 F 66 18 106/58 L 96 Room Air 01/16/23 08:00 01/16/23 08:00 01/16/23 08:00 01/16/23 08:00 01/16/23 08:00 01/16/23 08:00 Oxygen Delivery Method Room Air Weight: 90.5 kg Body Mass Index (BMI) 35.3 Intake & Output: Intake and Output for Last 24 Hours 01/14/23 01/15/23 01/16/23 23:59 23:59 23:59 Intake Total 1200 / 1200 800 / 1100 420 / 420 Balance 1200 / 1200 800 / 1100 420 / 420 Lab / Micro Data Result Diagrams: 01/16/23 07:04 01/16/23 07:04 Labs: Laboratory Results - last 24 hr 01/16/23 07:04: WBC 7.3, RBC 3.34 L, Hgb 11.3 L, Hct 34.2 L, MCV 102.4 H, MCH 33.8 H, MCHC 33.0, RDW Std Deviation 49.8 H, RDW Coeff of Ronna 13.4, Plt Count 203, MPV 8.7, Immature Gran % (Auto) 1.800 H, Neut % (Auto) 47.5, Lymph % (Auto)36.4, [place] % (Auto) 12.1 H, Eos % (Auto) 1.4, Baso % (Auto) 0.8, Absolute Neuts (auto) 3.5, Absolute Lymphs (auto) 2.65, Nucleated RBC % 0 01/16/23 07:04: Sodium 140, Potassium 4.6, Chloride 108 H, Carbon Dioxide 28.0, Anion Gap 4 L, BUN 18, Creatinine 0.64 L, Estim Creat Clear Calc 52.95, Est GFR (MDRD) Af Amer 157, Est GFR (MDRD) Non-Af 130, BUN/Creatinine Ratio 28.0 H, Glucose 93, Calcium 9.0, Total Bilirubin 0.30, AST 30, ALT 12 L, Alkaline Phosphatase 40 L, Total Protein 5.6 L, Albumin 2.4 L, Globulin 3.2, Albumin/Globulin Ratio 0.8 L Rhythm Strip Rhythm Strip: Sinus Tach Rate: 105 Ectopy: None Physical Exam Narrative Exam when originally evaluated this a.m. general: Alert HEENT: Atraumatic Eyes: Anicteric, normal conjunctiva, extraocular movements grossly intact Neck: Supple Respiratory: Clear to auscultation bilaterally, normal respiratory effort Cardiovascular: Regular rate and rhythm GI: Soft, nontender, nondistended Extremities: Trace to 1+ lower extremity edema Musculoskeletal: Moving all extremities Neuro: Has what appeared to be some chronic tremors Skin: No rashes appreciated Psych: Cooperative Assessment & Plan Assessment/Plan (1) Weakness: PLAN: Plan #Debility and weakness -Pt very weak and assisted living did not feel he was safe for their facility after his d/c from [facility] -PT recommends rehab/snf/tcu -Given mental health history will have to be evaluated prior to transfer to facility -01/12: Awaiting placement -01/15: Awaiting level 2 eval for placement -01/16: Patient awake alert and doing well this a.m. however received message that he was more tired and weak later in the morning. Patient was laying back further than he had been earlier and neck was flexed more so than usual, may have had slight CO2 retention. ABG did show PCO2 49.8. Patient seemed to improve once laid back with neck in a more neutral position. Awaiting ammonia and Depakote level as well as chest x-ray. Though less suspicion that he aspirated he does have neck flexed forward at baseline and eats, will consult speech speech therapy for evaluation #History of seizures -On valproic acid and Keppra. -01/12: Depakote level 84, would recommend checking again in 1 to 2 weeks to verify no significant abnormalities. Additionally ammonia 34, lower than it had been in the past but with his tremors will give dose of lactulose -01/13: Depakote level today 97, high end of therapeutic but not to toxic level, continue to monitor, may need dose adjustments. Additionally given 20 g of lactulose with ammonia 35 -01/16: Repeating ammonia and Depakote level #Hyperlipidemia -On statin #History of gout -On allopurinol #Hypothyroidism -On Synthroid. #Hx schizophrenia -On olanzapine and venlafaxine #hx KYA per documentation -CPAP qhs ordered #History of ataxia: -there was [facility] that [facility] had [facility] -He was reviewed there and the symptoms were not thought to be due to NPH but rather due to elevated VPA acid levels. -PT OT on board. Fall precautions. #Hypertension -On spironolactone and Bumex -01/14: BP on the low end today so labs checked, white count within normal limits, kidney function roughly unchanged. Held home diuretics, suspect it may make him slightly volume down. We will check labs again in the a.m. and continue to monitor BP -01/15: Improved with holding of diuretics, will continue monitoring labs and daily weights while admitted DVT prophylaxis: Lovenox sub q Total time spent on evaluation and management of patient, reviewing chart, discussing plan with patient, discussion with nursing and ancillary staff as well as documentation: 30 mins Charges/Coding Visit Charges Inpatient E&M: 98651 Subs Hosp L2 01/16/23 1152 <Electronically signed by Nina Wilder MD> Cosigner Signature (if applicable): CC: ~ Signed [facility] Work Phone: [phone]) 133-791204-14-[address] Wilder [facility] January 15, 2023 9:43am Note Date/Time January 15, 2023 9:4 3am [facility] Medical Records Department [address] [place] [address] Progress Note - Hospitalist 01/15/23 0941 MR#: [id number] Acct: [id number] Name: ANJEL ROSS Rep #:[id number] : 1950 72 From: Nina Wilder MD PCP: NILS CANTOR Status:ADM PAIGE Location: [place] [address] Reason for Visit Reason for Visit: Diagnoses Weakness (01/10/23) Subjective Subjective Feeling roughly the same, no new complaints today Objective Data Objective Data Vital Signs: Vital Signs Temp Pulse Resp BP Pulse Ox O2 Del Method 97.9 F 80 16 106/59 L 96 Room Air 01/15/23 08:11 01/15/23 08:15 01/15/23 08:11 01/15/23 08:11 01/15/23 08:11 01/15/23 08:15 Oxygen Delivery Method Room Air Weight: 90.5 kg Body Mass Index (BMI) 35.3 Intake & Output: Intake and Output for Last 24 Hours 01/13/23 01/14/23 01/15/23 23:59 23:59 23:59 Intake Total 1380 / 1880 1200 / 1200 800 / 800 Balance 1380 / 1880 1200 / 1200 800 / 800 Lab / Micro Data Result Diagrams: 01/15/23 07:26 01/15/23 07:26 Labs: Laboratory Results - last 24 hr 01/14/23 09:13: Sodium 141, Potassium 3.6, Chloride 105, Carbon Dioxide 30.0, Anion Gap 6, BUN 12, Creatinine 0.67 L, Estim Creat Clear Calc 52.95, Est GFR (MDRD) Af Amer 150, Est GFR (MDRD) Non-Af 124, BUN/Creatinine Ratio 17.9, Glucose 125 H, Calcium 8.7, Total Bilirubin 0.20, AST 13 L, ALT 14 L, Alkaline Phosphatase 47, Total Protein 5.6 L, Albumin 2.4 L, Globulin 3.2, Albumin/Globulin Ratio 0.8 L 01/15/23 07:26: WBC 6.3, RBC 3.52 L, Hgb 11.9 L, Hct 35.6 L, MCV 101.1 H, MCH 33.8 H, MCHC 33.4 D, RDW Std Deviation 48.6 H, RDW Coeff of Ronna 13.2, Plt [id number], MPV 8.4, Immature Gran % (Auto) 1.600 H, Neut % (Auto) 49.3, Lymph % (Auto)34.4, [place] % (Auto) 12.8 H, Eos % (Auto) 1.4, Baso % (Auto) 0.5, Absolute Neuts (auto) 3.1, Absolute Lymphs (auto) 2.15, Nucleated RBC % 0 01/15/23 07:26: Sodium 140, Potassium 3.6, Chloride 104, Carbon Dioxide 33.0 H, Anion Gap 3 L, BUN 14, Creatinine 0.59 L, Estim Creat Clear Calc 52.95, Est GFR (MDRD) Af Amer 174, Est GFR (MDRD) Non-Af 144, BUN/Creatinine Ratio 23.9 H, Glucose 118 H, Calcium 8.6 Rhythm Strip Rhythm Strip: Sinus Tach Rate: 105 Ectopy: None Physical Exam Narrative General: Alert HEENT: Atraumatic Eyes: Anicteric, normal conjunctiva, extraocular movements grossly intact Neck: Supple Respiratory: Clear to auscultation bilaterally, normal respiratory effort Cardiovascular: Regular rate and rhythm GI: Soft, nontender, nondistended Extremities: Trace to 1+ lower extremity edema Musculoskeletal: Moving all extremities Neuro: Has what appeared to be some chronic tremors Skin: No rashes appreciated Psych: Cooperative Assessment & Plan Assessment/Plan (1) Weakness: PLAN: Plan #Debility and weakness -Pt very weak and assisted living did not feel he was safe for their facility after his d/c from [facility] -PT recommends rehab/snf/tcu -Given mental health history will have to be evaluated prior to transfer to facility -01/12: Awaiting placement -01/15: Awaiting level 2 eval for placement #History of seizures -On valproic acid and Keppra. -01/12: Depakote level 84, would recommend checking again in 1 to 2 weeks to verify no significant abnormalities. Additionally ammonia 34, lower than it hadbeen in the past but with his tremors will give dose of lactulose -01/13: Depakote level today 97, high end of therapeutic but not to toxic level, continue to monitor, may need dose adjustments. Additionally given 20 g of lactulose with ammonia 35 #Hyperlipidemia -On statin #History of gout -On allopurinol #Hypothyroidism -On Synthroid. #Hx schizophrenia -On olanzapine and venlafaxine #hx KYA per documentation -CPAP qhs ordered #History of ataxia: -there was [facility] that [facility] had [facility] -He was reviewed there and the symptoms were not thought to be due to NPH but rather due to elevated VPA acid levels. -PT OT on board. Fall precautions. #Hypertension -On spironolactone and Bumex -01/14: BP on the low end today so labs checked, white count within normal limits, kidney function roughly unchanged. Held home diuretics, suspect it may make him slightly volume down. We will check labs again in the a.m. and continue to monitor BP -01/15: Improved with holding of diuretics, will continue monitoring labs and daily weights while admitted DVT prophylaxis: Lovenox sub q Total time spent on evaluation and management of patient, reviewing chart, discussing plan with patient, discussion with nursing and ancillary staff as well as documentation: 20 mins Charges/Coding Visit Charges Inpatient E&M: 14063 Subs Hosp L1 01/15/23 0943 <Electronically signed by Nina Wilder MD> Cosigner Signature (if applicable): CC: ~ Signed [facility] Work Phone: 1(665) 920-425704-13-[address] Wilder [facility] January 14, 2023 1:37pm Note Date/Time January 14, 2023 8:3 9am [facility] Medical Records Department [address] [place] [address] Progress Note - Hospitalist 01/14/23 0838 MR#: [id number] Acct: [id number] Name: ANJEL ROSS Rep #:[id number] : 1950 72 From: Nina Wilder MD PCP: NILS CANTOR Status:ADM PAIGE Location: [facility] [id number] Reason for Visit Reason for Visit: Diagnoses Weakness (01/10/23) Subjective Subjective Sitting up in the chair, doing well today Objective Data Objective Data Vital Signs: Vital Signs Temp Pulse Resp BP Pulse Ox O2 Del Method 97.9 F 80 18 89/52 L 98 Room Air 01/14/23 08:01 01/14/23 08:01 01/14/23 08:01 01/14/23 08:01 01/14/23 08:01 01/14/23 08:01 Oxygen Delivery Method Room Air Weight: 90.5 kg Body Mass Index (BMI) 35.3 Intake & Output: Intake and Output for Last 24 Hours 01/12/23 01/13/23 01/14/23 23:59 23:59 23:59 Intake Total 350 / 350 1380 / 1880 600 / 600 Balance 350 / 350 1380 / 1880 600 / 600 Lab / Micro Data Result Diagrams: 01/14/23 09:13 01/14/23 09:13 Labs: Laboratory Results - last 24 hr 01/13/23 08:33: Valproic Acid 97 01/13/23 08:33: Ammonia 35.0 H Rhythm Strip Rhythm Strip: Sinus Tach Rate: 105 Ectopy: None Physical Exam Narrative General: Alert HEENT: Atraumatic Eyes: Anicteric, normal conjunctiva, extraocular movements grossly intact Neck: Supple Respiratory: Clear to auscultation bilaterally, normal respiratory effort Cardiovascular: Regular rate and rhythm GI: Soft, nontender, nondistended Extremities: Trace to 1+ lower extremity edema Musculoskeletal: Moving all extremities Neuro: Has what appeared to be some chronic tremors Skin: No rashes appreciated Psych: Cooperative Assessment & Plan Assessment/Plan (1) Weakness: PLAN: Plan #Debility and weakness -Pt very weak and assisted living did not feel he was safe for their facility after his d/c from [facility] -PT recommends rehab/snf/tcu -Given mental health history will have to be evaluated prior to transfer to facility -01/12: Awaiting placement #History of seizures -On valproic acid and Keppra. -01/12: Depakote level 84, would recommend checking again in 1 to 2 weeks to verify no significant abnormalities. Additionally ammonia 34, lower than it hadbeen in the past but with his tremors will give dose of lactulose -01/13: Depakote level today 97, high end of therapeutic but not to toxic level, continue to monitor, may need dose adjustments. Additionally given 20 g of lactulose with ammonia 35 #Hyperlipidemia -On statin #History of gout -On allopurinol #Hypothyroidism -On Synthroid. #Hx schizophrenia -On olanzapine and venlafaxine #hx KYA per documentation -CPAP qhs ordered #History of ataxia: -there was [facility] that [facility] had [facility] -He was reviewed there and the symptoms were not thought to be due to NPH but rather due to elevated VPA acid levels. -PT OT on board. Fall precautions. #Hypertension -On spironolactone and Bumex -01/14: BP on the low end today so labs checked, white count within normal limits, kidney function roughly unchanged. Held home diuretics, suspect it may make him slightly volume down. We will check labs again in the a.m. and continue to monitor BP DVT prophylaxis: Lovenox sub q Total time spent on evaluation and management of patient, reviewing chart, discussing plan with patient, discussion with nursing and ancillary staff as well as documentation: 20 mins Charges/Coding Visit Charges Inpatient E&M: 18093 Subs Hosp L1 01/14/23 1337 <Electronically signed by Nina Wilder MD> Cosigner Signature (if applicable): CC: ~ Signed [facility] Work Phone: 1([phone]) 176-366004-12-[address] Wilder [facility] January 13, 2023 9:59am Note Date/Time January 13, 2023 9:5 9am [facility] Medical Records Department [address] [place] [address] Progress Note - Hospitalist 01/13/23 0956 MR#: [id number] Acct: [id number] Name: ANJEL ROSS Rep #:[id number] : 1950 72 From: Nina Wilder MD PCP: NILS CANTOR Status:ADM PAIGE Location: [place] US435-9 Reason for Visit Reason for Visit: Diagnoses Weakness (01/10/23) Subjective Subjective Laying in bed, was having some back pain but after repositioning, he reported itwas better Objective Data Objective Data Vital Signs: Vital Signs Temp Pulse Resp BP Pulse Ox O2 Del Method 98.2 F 89 14 92/46 L 96 Room Air 01/13/23 07:49 01/13/23 07:49 01/13/23 07:49 01/13/23 07:49 01/13/23 07:49 01/13/23 08:18 Oxygen Delivery Method Room Air Weight: 90.5 kg Body Mass Index (BMI) 35.3 Intake & Output: Intake and Output for Last 24 Hours 01/11/23 01/12/23 01/13/23 23:59 23:59 23:59 Intake Total 1900 / 1900 350 / 350 600 / 600 Output Total 600 / 600 Balance 1300 / 1300 350 / 350 600 / 600 Lab / Micro Data Result Diagrams: 01/12/23 05:35 01/12/23 05:35 Labs: Laboratory Results - last 24 hr 01/13/23 08:33: Valproic Acid 97 01/13/23 08:33: Ammonia 35.0 H Rhythm Strip Rhythm Strip: Sinus Tach Rate: 105 Ectopy: None Physical Exam Narrative General: Alert HEENT: Atraumatic Eyes: Anicteric, normal conjunctiva, extraocular movements grossly intact Neck: Supple Respiratory: Clear to auscultation bilaterally, normal respiratory effort Cardiovascular: Regular rate and rhythm GI: Soft, nontender, nondistended Extremities: Trace to 1+ lower extremity edema Musculoskeletal: Moving all extremities Neuro: Has what appeared to be some chronic tremors Skin: No rashes appreciated Psych: Cooperative Assessment & Plan Assessment/Plan (1) Weakness: PLAN: Plan #Debility and weakness -Pt very weak and assisted living did not feel he was safe for their facility after his d/c from [facility] -PT recommends rehab/snf/tcu -Given mental health history will have to be evaluated prior to transfer to facility -01/12: Awaiting placement #History of seizures -On valproic acid and Keppra. -01/12: Depakote level 84, would recommend checking again in 1 to 2 weeks to verify no significant abnormalities. Additionally ammonia 34, lower than it hadbeen in the past but with his tremors will give dose of lactulose -01/13: Depakote level today 97, high end of therapeutic but not to toxic level, continue to monitor, may need dose adjustments. Additionally given 20 g of lactulose with ammonia 35 #Hyperlipidemia -On statin #History of gout -On allopurinol #Hypothyroidism -On Synthroid. #Hx schizophrenia -On olanzapine and venlafaxine #hx KYA per documentation -CPAP qhs ordered #History of ataxia: -there was [facility] that [facility] had [facility] -He was reviewed there and the symptoms were not thought to be due to NPH but rather due to elevated VPA acid levels. -PT OT on board. Fall precautions. #Hypertension -On spironolactone and Bumex DVT prophylaxis: Lovenox sub q Total time spent on evaluation and management of patient, reviewing chart, discussing plan with patient, discussion with nursing and ancillary staff as well as documentation: 30 mins Charges/Coding Visit Charges Inpatient E&M: 41095 [facility] Hosp L2 01/13/23 0959 <Electronically signed by Nina Wilder MD> Cosigner Signature (if applicable): CC: ~ Signed [facility] Work Phone: [phone]) 726-164704-11-[address] Wilder [facility] January 12, 2023 8:57am Note Date/Time January 12, 2023 8:5 7am [facility] Medical Records Department [address] [place] [id number] Progress Note - Hospitalist 01/12/23 0853 MR#: [id number] Acct: [id number] Name: ANJEL ROSS Rep #:[id number] : 1950 72 From: Nina Wilder MD PCP: NILS CANTOR Status:ADM PAIGE [id number] Reason [facility] Visit Reason for Visit: Diagnoses Weakness (01/10/23) Subjective Subjective Sitting up in chair in no acute distress, did not voice any complaints today Objective Data Objective Data Vital Signs: Vital Signs Temp Pulse Resp BP Pulse Ox O2 Del Method 98.3 F 108 H 18 132/67 H 95 Room Air 01/12/23 04:00 01/12/23 04:00 01/12/23 04:00 01/12/23 04:00 01/12/23 04:00 01/12/23 04:00 Oxygen Delivery Method Room Air Weight: 90.5 kg Body Mass Index (BMI) 35.3 Intake & Output: Intake and Output for Last 24 Hours 01/10/23 01/11/23 01/12/23 23:59 23:59 23:59 Intake Total 1900 / 1900 Output Total 600 / 600 Balance 1300 / 1300 Lab / Micro Data Result Diagrams: 01/12/23 05:35 01/12/23 05:35 Labs: Laboratory Results - last 24 hr 01/12/23 05:35: WBC 5.9, RBC 3.48 L, Hgb 11.5 L, Hct 36.1 L, MCV 103.7 H, MCH 33.0 H, MCHC 31.9 L, RDW Std Deviation 50.9 H, RDW Coeff of Ronna 13.4, Plt Count 236, MPV 8.5, Immature Gran % (Auto) 0.700, Neut % (Auto) 37.3 L, Lymph % (Auto)40.6, [place] % (Auto) 17.9 H, Eos % (Auto) 2.6, Baso % (Auto) 0.9, Absolute Neuts (auto) 2.2, Absolute Lymphs (auto) 2.38, Nucleated RBC % 0 01/12/23 05:35: Sodium 140, Potassium 4.0, Chloride 107, Carbon Dioxide 32.0, Anion Gap 1 L, BUN 16, Creatinine 0.53 L, Estim Creat Clear Calc 52.95, Est GFR (MDRD) Af Amer 194, Est GFR (MDRD) Non-Af 161, BUN/Creatinine Ratio 30.0 H, Glucose 97, Calcium 9.3 01/12/23 05:35: Valproic Acid 84 01/12/23 05:35: Ammonia 35.0 H Rhythm Strip Rhythm Strip: Sinus Tach Rate: 105 Ectopy: None Physical Exam Narrative General: Alert HEENT: Atraumatic Eyes: Anicteric, normal conjunctiva, extraocular movements grossly intact Neck: Supple Respiratory: Clear to auscultation bilaterally, normal respiratory effort Cardiovascular: Regular rate and rhythm GI: Soft, nontender, nondistended Extremities: Trace to 1+ lower extremity edema Musculoskeletal: Moving all extremities Neuro: Has what appeared to be some chronic tremors Skin: No rashes appreciated Psych: Cooperative Assessment & Plan Assessment/Plan (1) Weakness: PLAN: Plan #Debility and weakness -Pt very weak and assisted living did not feel he was safe for their facility after his d/c from [facility] -PT recommends rehab/snf/tcu -Given mental health history will have to be evaluated prior to transfer to facility -01/12: Awaiting placement #History of seizures -On valproic acid and Keppra. -01/12: Depakote level 84, would recommend checking again in 1 to 2 weeks to verify no significant abnormalities. Additionally ammonia 34, lower than it hadbeen in the past but with his tremors will give dose of lactulose #Hyperlipidemia -On statin #History of gout -On allopurinol #Hypothyroidism -On Synthroid. #Hx schizophrenia -On olanzapine and venlafaxine #hx KYA per documentation -CPAP qhs ordered #History of ataxia: -there was concern that [facility] had [facility] -He was reviewed there and the symptoms were not thought to be due to NPH but rather due to elevated VPA acid levels. -PT OT on board. Fall precautions. #Hypertension -On spironolactone and Bumex DVT prophylaxis: Lovenox sub q Total time spent on evaluation and management of patient, reviewing chart, discussing plan with patient, discussion with nursing and ancillary staff as well as documentation: 30 mins Charges/Coding Visit Charges Inpatient E&M: 10886 Subs Hosp L2 01/12/23 0857 <Electronically signed by Nina Wilder MD> Cosigner Signature (if applicable): CC: ~ Signed [facility] Work Phone: 1(391) 930-628304-10-[address] Wilder [facility] January 11, 2023 5:37pm Note Date/Time January 11, 2023 7:2 1am [facility] Medical Records Department [address] [place] [address] Progress Note - Hospitalist 01/11/23 0721 MR#: [id number] Acct: [id number] Name: ANJEL ROSS Rep #:[id number] : 1950 72 From: Nina Wilder MD PCP: NILS CANTOR Status:ADM PAIGE Location: [place] [address] Reason for Visit Reason for Visit: Diagnoses Weakness (01/10/23) Subjective Subjective Laying in bed, no acute distress. Reports he has some chronic lower extremity pain and swelling and shakiness. Denies increased shortness of breath. Denied any acute complaints Objective Data Objective Data Vital Signs: Vital Signs Temp Pulse Resp BP Pulse Ox O2 Del Method 98.3 F 96 18 113/88 H 96 Room Air 01/11/23 02:35 01/11/23 02:35 01/11/23 02:35 01/11/23 02:35 01/11/23 02:35 01/11/23 02:35 Oxygen Delivery Method Room Air Weight: 90.5 kg Body Mass Index (BMI) 35.3 Intake & Output: Intake and Output for Last 24 Hours 01/09/23 01/10/23 01/11/23 23:59 23:59 23:59 Intake Total 1300 / 1300 Balance 1300 / 1300 Lab / Micro Data Result Diagrams: 01/11/23 04:50 01/11/23 04:50 Labs: Laboratory Results - last 24 hr 01/11/23 04:50: WBC 6.4, RBC 3.23 L, Hgb 10.7 L, Hct 33.8 L, MCV 104.6 H, MCH 33.1 H, MCHC 31.7 L, RDW Std Deviation 50.3 H, RDW Coeff of Ronna 13.1, Plt Count 191, MPV 8.6, Immature Gran % (Auto) 0.600, Neut % (Auto) 44.8 L, Lymph % (Auto)35.5, [place] % (Auto) 16.0 H, Eos % (Auto) 2.5, Baso % (Auto) 0.6, Absolute Neuts (auto) 2.9, Absolute Lymphs (auto) 2.28, Nucleated RBC % 0 01/11/23 04:50: Sodium 141, Potassium 3.9, Chloride 108 H, Carbon Dioxide 31.0, Anion Gap 2 L, BUN 18, Creatinine 0.50 L, Estim Creat Clear Calc 52.95, Est GFR (MDRD) Af Amer 208, Est GFR (MDRD) Non-Af 172, BUN/Creatinine Ratio 35.8 H, Glucose 119 H, Calcium 9.1 Rhythm Strip Rhythm Strip: Sinus Tach Rate: 105 Ectopy: None Physical Exam Narrative General: Alert HEENT: Atraumatic Eyes: Anicteric, normal conjunctiva, extraocular movements grossly intact Neck: Supple Respiratory: Clear to auscultation bilaterally, normal respiratory effort Cardiovascular: Regular rate and rhythm GI: Soft, nontender, nondistended Extremities: Trace to 1+ lower extremity edema Musculoskeletal: Moving all extremities Neuro: Has what appeared to be some chronic tremors Skin: No rashes appreciated Psych: Cooperative Assessment & Plan Assessment/Plan (1) Weakness: PLAN: Plan #Debility and weakness -Pt very weak and assisted living did not feel he was safe for their facility after his d/c from [facility] -PT recommends rehab/snf/tcu -Given mental health history will have to be evaluated prior to transfer to facility #History of seizures: On valproic acid and Keppra. Check Depakote level in the a.m. #Hyperlipidemia: On statin #History of gout: On allopurinol #Hypothyroidism: On Synthroid. #Hx schizophrenia: On olanzapine and venlafaxine #hx KYA per documentation -CPAP qhs ordered #History of ataxia: -there was [facility] that [facility] had [facility] there and the symptoms were not thought to be due to NPH but rather due to elevated VPA acid levels. -PT OT on board. Fall precautions. #Hypertension: On spironolactone and Bumex DVT prophylaxis: Lovenox sub q Total time spent on evaluation and management of patient, reviewing chart, discussing plan with patient, discussion with nursing and ancillary staff as well as documentation: 30 mins Charges/Coding Visit Charges Inpatient E&M: 34987 Subs Hosp L2 01/11/23 1737 <Electronically signed by Nina Wilder MD> Cosigner Signature (if applicable): CC: ~ Signed [facility] Work Phone: [phone]) 803-274304-09-2023 History and physical note Author Dr. Recio [facility] January 10, 2023 3:34pm Note Date/Time January 10, 2023 9:22 am [facility] Medical Records Department [address] [place] [address] [place] [address] H&P Exam - Hospitalist 01/10/23 0911 MR#: [id number] Acct: [id number] Name: ANJEL ROSS Rep #:[id number] : 1950 72 From: Kary Recio MD PCP: NILS CANTOR Status:ADM PAIGE Location: PR3 [id number] HPI - General General Date of Admission: 01/10/23 Date of Service: 01/10/23 Chief Complaint: weakness HPI Narrative ANJEL ROSS, is a 72 M with a PMH as outlined who presents via the ED on 01/10/2023 with a complaint of weakness. He was brought in from his assisted living facility for generalised weakness and debility. He had recently been seenin our ED for weakness and lethargy and imaging was concerning for NPH and foundto have elevated valproic acid levels. He was transferred to [facility] where his symptoms were thought to be due to his elevated valproic acidlevel, and not NPH. His dose of valproic acid levels were adjusted and he was discharged back to his Assisted Living Facility, from where he presented to the ED this time. He denied any headache, blurred vision, chest pain, palpitations,dizziness, nausea or vomiting or diarrhea or any other symptoms. Review of systems was otherwise negative. He was hemodynamically stable. Vitals in the ED were blood pressure 133/83, pulse rate of 64 respiratory rate of 17 with oxygen saturation of 96% on room air. CBC showed hemoglobin of 12.3 with WBC of 10.4 and platelets of 168. Chemistry was unremarkable and urinalysis showed no evidence of UTI. Chest x-ray showed no acute cardiopulmonary process. Patient was with physical therapy in the ED and plan was to discharge him back to his facility. However the assisted living facilitystaff refused to take him back because they were concerned he wouldnt be safe inthe facility. He is therefore been admitted to be managed for debility and generalized weakness and is for placement. [facility] Medical History Anxiety Benign essential HTN BPH (benign prostatic hyperplasia) BPH (benign prostatic hyperplasia) Cancer Cardiology follow-up encounter Depression Easy bruising Epilepsy Gastric reflux Gout History of colon cancer History of echocardiogram History of edema History of seizure History of stress test Hyperlipemia Hypothyroid Leg cramps Loose, teeth Non-smoker Pure hypercholesterolemia Restless legs Schizophrenia Seizure disorder Shortness of breath on exertion Sleep apnea Walker as ambulation aid Wears glasses Home Medications alendronate 70 mg tablet 70 mg PO LEON OSTEOPOROSIS 12/07/16 [History Last Taken 01/03/23] allopurinol 100 mg tablet 100 mg PO QHS GOUT 12/07/16 [History Last Taken 01/03/23] atorvastatin 40 mg tablet 40 mg PO QHS CHOLESTEROL 12/07/16 [History Last Taken 01/03/23] clopidogrel 75 mg tablet 75 mg PO DAILY ANTIPLATELET 12/07/16 [History Last Taken 01/04/23] finasteride 5 mg tablet 5 mg PO DAILY PROSTATE 12/07/16 [History Last Taken 01/04/23] levothyroxine 50 mcg tablet 50 mcg PO DAILY THYROID 12/07/16 [History Last Taken 01/04/23] ascorbic acid (vitamin C) 500 mg capsule 500 mg PO DAILY@1200 SUPPLEMENT 03/17/19 [History Last Taken 01/04/23] montelukast 10 mg tablet 10 mg PO QHS ALLERGIES 03/17/19 [History Last Taken 01/03/23] pantoprazole 40 mg tablet,delayed release 40 mg PO DAILY ACID REFLUX 03/17/19 [History Last Taken 01/04/23] cholecalciferol (vitamin D3) 50 mcg (2,000 unit) capsule 2,000 unit PO DAILY SUPPLEMENT 07/11/19 [History Last Taken 01/03/23] magnesium oxide 400 mg (241.3 mg magnesium) tablet 400 mg PO QHS SUPPLEMENT 07/11/19 [History Last Taken 01/03/23] potassium chloride 20 mEq tablet,extended release(part/cryst) 20 meq PO BID SUPPLEMENT 07/11/19 [History Last Taken 01/04/23] ropinirole 1 mg tablet 1 mg PO TID SEIZURES 07/11/19 [History Last Taken 01/04/23] loratadine 10 mg capsule 10 mg PO QHS 07/15/20 [History Last Taken 01/03/23] olanzapine 5 mg disintegrating tablet 10 mg PO QHS DEPRESSION 07/15/20 [History Last Taken 01/03/23] spironolactone 25 mg tablet 25 mg PO QODAY DIURETIC 07/15/20 [History Last Taken 01/09/23 09:31] venlafaxine 150 mg capsule,extended release 24 hr 150 mg PO DAILY DEPRESSION 07/15/20 [History Last Taken 01/04/23] valproic acid (as sodium salt) 250 mg/5 mL oral solution 1,000 mg PO TID 07/01/22 [History Last Taken 01/04/23] bumetanide 1 mg tablet 2 mg PO DAILY DIURETIC 01/04/23 [History Last Taken 01/04/23] levetiracetam 750 mg tablet 1,500 mg PO BID seizures 01/04/23 [History Last Taken 01/04/23] acetaminophen 325 mg tablet 1,300 mg PO BID 01/10/23 [History Last Taken Unknown] alfuzosin 10 mg tablet,extended release 24 hr 10 mg PO QHS urinary urgency 01/10/23 [History Last Taken Unknown] ferrous gluconate 270 mg (27 mg iron) tablet 270 mg PO DAILY supplement 01/10/23[History Last Taken Unknown] omega 9-ksu-xvs-fish oil 1,000 mg (120 mg-180 mg) capsule 1 cap PO BID 01/10/23 [History Last Taken Unknown] pregabalin 200 mg capsule 200 mg PO TID 01/10/23 [History Last Taken Unknown] sucralfate 1 gram tablet 1 g PO TIDCM 01/10/23 [History Last Taken Unknown] Allergy/AdvReac Type Severity Reaction Status Date / Time aspirin Allergy cant Verified 01/10/23 01:40 remember rxn nickel Allergy Other Verified 01/10/23 01:40 oxcarbazepine Allergy cant Verified 01/10/23 01:40 [From Trileptal] remember rxn Family History Mother COPD (chronic obstructive pulmonary disease) CAD (coronary artery disease) Father Cancer lung Heart disease Myocardial infarction CAD (coronary artery disease) Aunt CAD (coronary artery disease) Myocardial infarction Surgical History History of cataract extraction History of cholecystectomy History of right hip replacement Social History household members: none housing: assisted living facility Smoking Status: Never smoker alcohol intake: never substance use type: does not use caffeine: Yes Type: carbonated beverages Number of servings: 3 ROS Constitutional Constitutional: Reports fatigue, malaise and weakness; Denies anorexia, chills or fever(s) Eyes Eyes: Denies change in vision ENT HEENT: Denies dysphagia, headache(s) or sore throat Cardiovascular Cardiovascular: Denies dyspnea on exertion, edema, lightheadedness, orthopnea, palpitations, paroxysmal nocturnal dyspnea or rapid heart rate Respiratory/Chest Respiratory/Chest: Denies cough, dyspnea, shortness of breath at rest, shortnessof breath with exertion or wheezing Gastrointestinal Gastrointestinal: Denies abdominal pain, constipation, diarrhea, melena, nausea or vomiting Genitourinary Genitourinary: Denies dysuria, nocturia or urinary frequency Musculoskeletal Musculoskeletal: Denies arthralgias, back pain, joint swelling, myalgias or neckpain Neurologic Neurologic: Denies confusion, dizziness, focal weakness, headache(s), numbness, seizures or syncope Psychiatric Psychiatric: Denies anxiety Endocrine Endocrinology: Denies change in body appearance Hematologic/Lymphatic Hematologic/Lymphatic: Denies anemia Vital Signs Vital Signs Vital Signs: 01/10/23 01:40 01/10/23 01:41 01/10/23 06:59 Temperature 98 F Temperature Source Temporal Pulse Rate 111 H 64 Respiratory Rate 14 17 Respiratory Effort Normal Non-Labored Blood Pressure 120/75 133/83 H Blood Pressure Mean 90 99 Pulse Ox 93 96 Oxygen Delivery Method Room Air Room Air Weight Weight: 199 lb 8.293 oz Body Mass Index (BMI) 35.3 Physical Exam Const alert, oriented x3 and no apparent distress Constitutional Narrative: frail, stooped over General Appearance: cooperative HEENT normocephalic, head/scalp atraumatic, hearing grossly normal bilaterally and moist oral mucous membranes Mouth: oral and palatal mucosa normal Eyes PERRL, EOMs intact bilaterally and conjunctivae normal Neck no lymphadenopathy and supple Resp normal respiratory effort, no retractions, no use of accessory muscles and clearto auscultation bilaterally Cardio regular rate, regular rhythm, S1 normal heart sound, S2 normal heart sound and no murmurs GI normal to inspection, nondistended, normoactive bowel sounds, soft to palpation,non-tender and non-distended Extremity normal to inspection and full ROM Neuro oriented x3, CN's II-XII intact bilaterally, moves all extremities and no focal motor deficits Sensorium / Orientation: awake and alert Motor Exam: strength 5/5 throughout Psych affect normal Results Lab / Micro Data Result Diagrams: 01/10/23 03:05 01/10/23 03:05 Labs: Laboratory Results - last 24 hr 01/10/23 03:05: WBC 10.4, RBC 3.68 L, Hgb 12.3 L, Hct 37.6 L, MCV 102.2 H, MCH 33.4 H, MCHC 32.7, RDW Std Deviation 49.0 H, RDW Coeff of Ronna 13.1, Plt Count 168, MPV 8.4, Immature Gran % (Auto) 1.400 H, Neut % (Auto) 53.9, Lymph % (Auto)25.6, [place] % (Auto) 16.6 H, Eos % (Auto) 1.7, Baso % (Auto) 0.8, Absolute Neuts (auto) 5.6, Absolute Lymphs (auto) 2.65, Nucleated RBC % 0, Macrocytosis 2+ 01/10/23 03:05: Sodium 139, Potassium 4.3, Chloride 105, Carbon Dioxide 29.0, Anion Gap 5, BUN 12, Creatinine 0.80, Estim Creat Clear Calc 66.19, Est GFR (MDRD)Af Amer 122, Est GFR (MDRD) Non-Af 101, BUN/Creatinine Ratio 15.0, Glucose 83, Calcium 9.0, Troponin I High Sens 6 01/10/23 03:21: Valproic Acid 80 01/10/23 03:22: Urine Color Yellow, Urine Clarity Clear, Urine pH 6.0, Ur Specific Jeannette 1.015, Urine Protein 15 H, Urine Glucose (UA) Normal, Urine Ketones 5 H, Urine Occult Blood 25 H, Urine Nitrite Negative, Urine Bilirubin Negative, Urine Urobilinogen Normal, Ur Leukocyte Esterase Negative, Urine RBC 0SEEN, Urine WBC 0 SEEN, Ur Squamous Epith Cells 0 SEEN, Urine Bacteria 0 SEEN, Hyaline Casts 0-5 SEEN, Urine Mucus 0 SEEN Rhythm Strip Rhythm Strip: Sinus Tach Rate: 105 Ectopy: None Radiology Impression Chest X-Ray 01/10/23 03:31 IMPRESSION: No acute findings in the chest. Electronically Signed: Alban Marin MD at 4:01 EDT Reading Location ID and State: [facility] / [place] , Service support , Assessment & Plan Assessment/Plan (1) Weakness: PLAN: Plan #Debility and weakness * admit to med surg * CBC and BMP are unremarkable * consult PT/OT * fall precautions * Assisted Living Facility refusing to take him back. * will need placement * #History of seizures: On valproic acid and Keppra #Hyperlipidemia: On statin #History of gout: On allopurinol #Hypothyroidism: On Synthroid. Check TSH #Depression: On olanzapine and venlafaxine #History of ataxia: * There was concern that he had NPH and so was transferred [facility] recently. * He was reviewed there and the symptoms were not thought to be due to NPH but rather due to elevated lipoic acid levels. * PT OT on board. For precautions. #Hypertension: On spironolactone and Bumex DVT prophylaxis: Lovenox CODE STATUS:DNRCCA no intubation * Patient counseled extensively about different types of CODE STATUS including full code, DNR CCA and DNR CCA. Patient elects to be DNRCCA . This was confirmed from documentation he brought from [facility]. * Total yyex-rp-mrpx time 17 minutes. Total time spent on evaluation and management of patient, reviewing chart, discussing plan with patient, discussion with nursing and ancillary staff as well as documentation: 60 mins Charges/Coding Visit Charges Inpatient E&M: 50880 Init Hosp L2 Procedures Hospitalists Procedures: 08852 Advncd Care Plan 30 Min 01/10/23 1534 <Electronically signed by Kary Recio MD> Cosigner Signature (if applicable): CC: Dr. Kary Recio MD; NILS CANTOR~ Signed [facility] Work Phone: [phone]) [phone] Discharge summary Author Breana Avila [facility] January 10, 2023 9:31am Note Date/Time January 10, 2023 3:30 am [facility] Medical Records Department [address] [place] [address] Emergency Department Summary 01/10/23 MR#: [id number] Acct: [id number] Name: ANJEL ROSS Rep #:[id number] : 1950 72 From: Hilario Malik MD PCP: NILS CANTOR Status:REG ER Location: ED ADDENDUM by Dr. Breana Avila DO on 01/10/23 at 0931 [facility] staff called into the ER to say that they cannot accept patient back to their facility as he is high risk for falls and too weak to go back to their facility it was felt he needed admitted and evaluated for residential facility placement. Case discussed with hospitalist to evaluate patientfor admission. 01/10/23 0931<Electronically signed by Breana Avila DO> Cosigner Signature (if applicable): cc: NILS CANTOR ~* Signed HPI History of Present Illness Chief Complaint: Weakness Informant: patient and EMS Narrative Narrative: Patient sent here from assisted living for weakness around 2-3 AM. No one from assisted living facility called report, EMS states they tried to get him up and were having trouble, for unknown reasoning if he had to go to the bathroom or what the deal was, limited information is available the patient does not know why he is here, but EMS said that he was too weak and so he was sent here for evaluation. He was seen here recently, there was a head CT that was concerning for possible NPH, he had a high valproic acid level, neurology recommended he betransferred to a facility that had in person neurology, he was sent to [facility] they excepted him, they did not think he had NPH but rather that his ataxia was related to his high valproate levels. They recommended he be on valproic acid 1000 mg 3 times daily, and Keppra 1500 mg twice daily for his epilepsy. Apparently he just arrived back to assisted [facility] from [facility] past day. There is no other information available at this time. The patient denies having any focal complaints. He initially thought he was at [facility], but he was redirectable and [facility] was his second guess. [facility] Medical History Anxiety Benign essential HTN BPH (benign prostatic hyperplasia) BPH (benign prostatic hyperplasia) Cancer Cardiology follow-up encounter Depression Easy bruising Epilepsy Gastric reflux Gout History of colon cancer History of echocardiogram History of edema History of seizure History of stress test Hyperlipemia Hypothyroid Leg cramps Loose, teeth Non-smoker Pure hypercholesterolemia Restless legs Schizophrenia Seizure disorder Shortness of breath on exertion Sleep apnea Walker as ambulation aid Wears glasses Home Medications alendronate 70 mg tablet 70 mg PO LEON OSTEOPOROSIS 12/07/16 [History Last Taken 01/03/23] allopurinol 100 mg tablet 100 mg PO QHS GOUT 12/07/16 [History Last Taken 01/03/23] atorvastatin 40 mg tablet 40 mg PO QHS CHOLESTEROL 12/07/16 [History Last Taken 01/03/23] clopidogrel 75 mg tablet 75 mg PO DAILY ANTIPLATELET 12/07/16 [History Last Taken 01/04/23] finasteride 5 mg tablet 5 mg PO DAILY PROSTATE 12/07/16 [History Last Taken 01/04/23] levothyroxine 50 mcg tablet 75 mcg PO DAILY THYROID 12/07/16 [History Last Taken 01/04/23] ascorbic acid (vitamin C) 500 mg capsule 500 mg PO DAILY@1200 SUPPLEMENT 03/17/19 [History Last Taken 01/04/23] bethanechol chloride 25 mg tablet 25 mg PO TID BLADDER 03/17/19 [History Last Taken 01/04/23] montelukast 10 mg tablet 10 mg PO QHS ALLERGIES 03/17/19 [History Last Taken 01/03/23] pantoprazole 40 mg tablet,delayed release 40 mg PO DAILY ACID REFLUX 03/17/19 [History Last Taken 01/04/23] cholecalciferol (vitamin D3) 50 mcg (2,000 unit) capsule 2,000 unit PO QHS SUPPLEMENT 07/11/19 [History Last Taken 01/03/23] magnesium oxide 400 mg (241.3 mg magnesium) tablet 400 mg PO QHS SUPPLEMENT 07/11/19 [History Last Taken 01/03/23] potassium chloride 20 mEq tablet,extended release(part/cryst) 20 meq PO BID SUPPLEMENT 07/11/19 [History Last Taken 01/04/23] ropinirole 1 mg tablet 1 mg PO TID SEIZURES 07/11/19 [History Last Taken 01/04/23] bismuth subsalicylate 262 mg/15 mL oral suspension ([place] Bismuth) 524 mg PO Q30- 60M PRN N/V 07/15/20 [History Last Taken Unknown] loratadine 10 mg capsule 10 mg PO QHS 07/15/20 [History Last Taken 01/03/23] olanzapine 5 mg disintegrating tablet 10 mg PO QHS DEPRESSION 07/15/20 [History Last Taken 01/03/23] polyethylene glycol 3350 17 gram/dose oral powder (Miralax) 17 g PO DAILY PRN Constipation 07/15/20 [History Last Taken Unknown] sennosides 8.6 mg capsule (senna) 8.6 mg PO DAILY PRN Constipation 07/15/20 [History Last Taken Unknown] spironolactone 25 mg tablet 25 mg PO .25 MG QOD, 50MG QOD DIURETIC 07/15/20 [History Last Taken 01/04/23] venlafaxine 150 mg capsule,extended release 24 hr 150 mg PO DAILY DEPRESSION 07/15/20 [History Last Taken 01/04/23] albuterol sulfate 0.63 mg/3 mL solution for nebulization 0.63 mg inhalation Q4H PRN SOB 07/01/22 [History Last Taken Unknown] guaifenesin 600 mg tablet, extended release 12 hr (Mucinex) 600 mg PO BID PRN Congestion 07/01/22 [History Last Taken Unknown] ibuprofen 600 mg tablet 600 mg PO Q6H PRN Pain 07/01/22 [History Last Taken Unknown] valproic acid (as sodium salt) 250 mg/5 mL oral solution 1,000 mg PO TID 07/01/22 [History Last Taken 01/04/23] bumetanide 1 mg tablet 2 mg PO DAILY DIURETIC 01/04/23 [History Last Taken 01/04/23] cephalexin 500 mg tablet 500 mg PO BID . 01/04/23 [History Last Taken 01/04/23] famotidine 20 mg tablet 20 mg PO BID GERD 01/04/23 [History Last Taken 01/04/23] ferrous sulfate 325 mg (65 mg iron) tablet 325 mg PO DAILY SUPPLEMENT 01/04/23 [History Last Taken 01/04/23] levetiracetam 750 mg tablet 1,500 mg PO BID . 01/04/23 [History Last Taken 01/04/23] tamsulosin 0.4 mg capsule 0.4 mg PO DAILY PROSTATE 01/04/23 [History Last Taken 01/04/23] vitamins A,C,L-yvby-menwun 2,148 mcg-113 mg-45 mg-17.4 mg tablet (Eye Multivitamin) 1 tab PO DAILY SUPPLEMENT 01/04/23 [History Last Taken 01/04/23] Allergy/AdvReac Type Severity Reaction Status Date / Time aspirin Allergy cant Verified 01/10/23 01:40 remember rxn nickel Allergy Other Verified 01/10/23 01:40 oxcarbazepine Allergy cant Verified 01/10/23 01:40 [From Trileptal] remember rxn Family History Mother COPD (chronic obstructive pulmonary disease) CAD (coronary artery disease) Father Cancer lung Heart disease Myocardial infarction CAD (coronary artery disease) Aunt CAD (coronary artery disease) Myocardial infarction Surgical History History of cataract extraction History of cholecystectomy History of right hip replacement Social History household members: none housing: assisted living facility Smoking Status: Never smoker alcohol intake: never substance use type: does not use caffeine: Yes Type: carbonated beverages Number of servings: 3 ROS ROS ED Constitutional Constitutional ED: Denies chills or fever(s) Eyes Eyes: Denies change in vision or diplopia ENT ENT ED: Denies rhinorrhea or sore throat Cardiovascular Cardiovascular: Denies chest pain or palpitations Respiratory/Chest Respiratory/Chest: Denies cough or dyspnea Gastrointestinal Gastrointestinal: Denies abdominal pain, diarrhea, nausea or vomiting Genitourinary Genitourinary ED: Denies dysuria or hematuria Musculoskeletal Musculoskeletal: Denies back pain or neck pain Integumentary Denies abscess or rash Neurologic Neurologic: Denies headache(s), paresthesias or weakness Psychiatric Psychiatric: Denies anxiety or suicidal thoughts EXAM Physical Exam Const Vital Signs: 01/10/23 01:40 01/10/23 01:41 01/10/23 06:59 Temperature 98 F Temperature Source Temporal Pulse Rate 111 H 64 Respiratory Rate 14 17 Respiratory Effort Normal Non-Labored Blood Pressure 120/75 133/83 H Blood Pressure Mean 90 99 Pulse Ox 93 96 Oxygen Delivery Method Room Air Room Air Positive well nourished and well developed General Appearance ED: well developed and NAD HEENT Reports moist mucous membranes normocephalic and atraumatic Eyes PERRL and EOMs intact bilaterally Neck full ROM and supple Neck Narrative: Very kyphotic, similar to previous evaluation Resp normal respiratory effort and clear to auscultation bilaterally Cardio regular rate, regular rhythm and no murmurs GI non-tender and non-distended Auscultation: normoactive bowel sounds Palpation: soft Back/Spine no CVA tenderness General Back: other FROM Extremity normal to inspection General Extremety ED: Yes edema; Negative for pulses abnormal or tenderness General Extremity: edema bilateral lower extremity Details: mild; Negative for pulses abnormal Neuro oriented x3, CN's II-XII intact bilaterally and no sensory deficits noted Sensorium / Orientation: awake and alert Motor Exam: general weakness Skin no rashes or lesions noted and no wounds MDM MDM MDM Narrative Medical decision making narrative: While performing a work-up, patient was given some gentle IV fluids while resting here overnight during development spec. His urinalysis is negative for infection and the one that we did 6 days ago was negative. He has had 2 head CTs in the last week or 2 that were similar and unchanged from each other, he has had no recent fall or findings of a head injury so I feel a repeat CT is notindicated at this time. I did repeat his chest x-ray, 1 view on my interpretation shows no pneumonia. His valproic acid level right now is within normal limits. The rest of his basic labs are within normal limits except for mild chronic anemia. At this time the patient is resting comfortably and other than a very mild tachycardia his exam is unremarkable. He has no lateralizing neurologic deficits, he is able to move everything although he is generally weak, although it is 3-4 AM. I had staff call the assisted living facility, no one is answering. We did not get a report. EMS said the patient was weak but they tried to get him up in the middle of the night, and I do not know what his baseline is because the patient is a very poor historian. We observed him overnight and I reevaluated him in the morning, I had staff get him up to walk with his walker which is how he ambulates at baseline. This was around 6:30 AM. He did okay, short shuffling gait but was able to do so withoutany other assistance, and he said that is how he ambulates at baseline. I askedhim again about the morning at assisted living prior to getting here, he states he needed to pee and he had trouble getting up with assistance because he was tired. I asked him if he feels like he is doing okay in assisted living and he states yes. He states he wants to go back there. I asked him if he wanted to be admitted to look into placement to a higher level of care like a residential facility and he states no that he does not need that. Therefore at thistime I feel it is appropriate to discharge him back to assisted living. Lab Data Attestation: I reviewed the patient's lab results. Labs: Laboratory Results - last 24 hr 01/10/23 01/10/23 01/10/23 03:05 03:05 03:21 WBC 10.4 RBC 3.68 L Hgb 12.3 L Hct 37.6 L MCV 102.2 H MCH 33.4 H MCHC 32.7 RDW Std Deviation 49.0 H RDW Coeff of Ronna 13.1 Plt Count 168 MPV 8.4 Immature Gran % (Auto) 1.400 H Neut % (Auto) 53.9 Lymph % (Auto) 25.6 [place] % (Auto) 16.6 H Eos % (Auto) 1.7 Baso % (Auto) 0.8 Absolute Neuts (auto) 5.6 Absolute Lymphs (auto) 2.65 Nucleated RBC % 0 Macrocytosis 2+ Sodium 139 Potassium 4.3 Chloride 105 Carbon Dioxide 29.0 Anion Gap 5 BUN 12 Creatinine 0.80 Estim Creat Clear Calc 66.19 Est GFR (MDRD) Af Amer 122 Est GFR (MDRD) Non-Af 101 BUN/Creatinine Ratio 15.0 Glucose 83 Calcium 9.0 Troponin I High Sens 6 Urine Color Urine Clarity Urine pH Ur Specific Jeannette Urine Protein Urine Glucose (UA) Urine Ketones Urine Occult Blood Urine Nitrite Urine Bilirubin Urine Urobilinogen Ur Leukocyte Esterase Urine RBC Urine WBC Ur Squamous Epith Cells Urine Bacteria Hyaline Casts Urine Mucus Valproic Acid 80 01/10/23 03:22 WBC RBC Hgb Hct MCV MCH MCHC RDW Std Deviation RDW Coeff of Ronna Plt Count MPV Immature Gran % (Auto) Neut % (Auto) Lymph % (Auto) [place] % (Auto) Eos % (Auto) Baso % (Auto) Absolute Neuts (auto) Absolute Lymphs (auto) Nucleated RBC % Macrocytosis Sodium Potassium Chloride Carbon Dioxide Anion Gap BUN Creatinine Estim Creat Clear Calc Est GFR (MDRD) Af Amer Est GFR (MDRD) Non-Af BUN/Creatinine Ratio Glucose Calcium Troponin I High Sens Urine Color Yellow Urine Clarity Clear Urine pH 6.0 Ur Specific Jeannette 1.015 Urine Protein 15 H Urine Glucose (UA) Normal Urine Ketones 5 H Urine Occult Blood 25 H Urine Nitrite Negative Urine Bilirubin Negative Urine Urobilinogen Normal Ur Leukocyte Esterase Negative Urine RBC 0 SEEN Urine WBC 0 SEEN Ur Squamous Epith Cells 0 SEEN Urine Bacteria 0 SEEN Hyaline Casts 0-5 SEEN Urine Mucus 0 SEEN Valproic Acid Radiography Chest X-Ray - ED: 1 View, Read by ED Physician and No Infiltrates Diagnostic Testing: Clinical Impression(s) from Imaging Studies Chest X-Ray 01/10/23 03:31 IMPRESSION: No acute findings in the chest. Electronically Signed: Alban Marin MD at 4:01 EDT Reading Location ID and State: [facility] / [place] , Service support , Rhythm Strip Rhythm Strip: Sinus Tach Rate: 105 Ectopy: None EKG Initial EKG: Attestation: I personally reviewed and interpreted this EKG as follows: Interpretation: No Acute Injury Pattern, Sinus Tachycardia and LAFB Prior EKG tracings: available for review Prior: Unchanged Discharge Plan Triage Chief Complaint: Weakness ED Provider: Hilario Malik Dx/Rx/DC Orders Clinical Impression: Encounter for medical screening examination Instructions: ED Weakness (Uncertain Cause) Prescriptions: No Action ascorbic acid (vitamin C) 500 mg capsule 500 mg PO DAILY@1200 pantoprazole 40 mg tablet,delayed release (DR/EC) 40 mg PO DAILY bethanechol chloride 25 mg tablet 25 mg PO TID montelukast 10 mg tablet 10 mg PO QHS loratadine 10 mg capsule 10 mg PO QHS bismuth subsalicylate [[place] Bismuth] 262 mg/15 mL suspension 524 mg PO Q30-60M PRN (Reason: N/V) Rx Instructions: do not exceed 8 doses in a 24 hour period polyethylene glycol 3350 [Miralax] 17 gram/dose powder 17 g PO DAILY PRN (Reason: Constipation) senna 8.6 mg capsule 8.6 mg PO DAILY PRN (Reason: Constipation) atorvastatin 40 MG tablet 40 mg PO QHS alendronate 70 MG tablet 70 mg PO LEON clopidogrel 75 MG tablet 75 mg PO DAILY allopurinol 100 MG tablet 100 mg PO QHS levothyroxine 50 MCG tablet 75 mcg PO DAILY finasteride 5 MG tablet 5 mg PO DAILY spironolactone 25 mg tablet 25 mg PO .25 MG QOD, 50MG QOD Rx Instructions: 25mg qod, 50mg qod olanzapine 5 mg tablet,disintegrating 10 mg PO QHS ropinirole 1 MG tablet 1 mg PO TID potassium chloride 20 MEQ tablet,ER particles/crystals 20 meq PO BID magnesium oxide 400 MG tablet 400 mg PO QHS cholecalciferol (vitamin D3) 2,000 UNIT capsule 2,000 unit PO QHS venlafaxine 150 mg capsule,extended release 24hr 150 mg PO DAILY valproic acid (as sodium salt) 250 mg/5 mL Solution 1,000 mg PO TID albuterol sulfate 0.63 mg/3 mL Solution For Nebulization 0.63 mg INHALATION Q4H PRN (Reason: SOB) ibuprofen 600 mg Tablet 600 mg PO Q6H PRN (Reason: Pain) guaifenesin [Mucinex] 600 mg Tablet Extended Release 12hr 600 mg PO BID PRN (Reason: Congestion) famotidine 20 mg Tablet 20 mg PO BID tamsulosin 0.4 mg Capsule 0.4 mg PO DAILY ferrous sulfate 325 mg (65 mg iron) Tablet 325 mg PO DAILY cephalexin 500 mg Tablet 500 mg PO BID bumetanide 1 mg Tablet 2 mg PO DAILY levetiracetam 750 mg Tablet 1,500 mg PO BID Eye Multivitamin 2,148 mcg-113 mg-45 mg-17.4mg Tablet 1 tab PO DAILY Rx Instructions: administer with LUNCH Primary Care Provider: NILS CANTOR Referrals: NILS CANTOR [Other] Doctor,Your [Non-Staff] - 1 Day for another exam Activity Restrictions/Additional Instructions: Patient again has a normal work-up including a normal valproic acid level. He was offered higher level of care such as residential, and he declined/refuses. Ambulatory in ED with a walker at baseline. Disposition Disposition: Home, Self Care What to do if you have Problems For any increased pain, shortness of breath, bleeding, nausea or vomiting, chestpain, or any unexpected problems, contact your Primary Care Provider. Call [facility] ([phone]) or report to the closest Emergency Room. Call 911 if necessary. 01/10/23 0711 <Electronically signed by Hilario Malik MD> Cosigner Signature (if applicable): CC: NILS CANTOR ~ Signed [facility] Work Phone: [phone] Discharge summary Author Breana Avila [facility] January 10, 2023 9:31am Note Date/Time January 10, 2023 3:30 am [facility] Medical Records Department [address] [place] [address] Emergency Department Summary 01/10/23 MR#: [id number] Acct: [id number] Name: ANJEL ROSS Rep #:[id number] : 1950 72 From: Hilario Malik MD PCP: NILS CANTOR Status:REG ER Location: ED ADDENDUM by Dr. Breana Avila DO on 01/10/23 at 0931 [facility] staff called into the ER to say that they cannot accept patient back to their facility as he is high risk for falls and too weak to go back to their facility it was felt he needed admitted and evaluated for residential facility placement. Case discussed with hospitalist to evaluate patientfor admission. 01/10/23930<Electronically signed by Breana Avila DO> Cosigner Signature (if applicable): cc: NILS CANTOR ~* Signed HPI History of Present Illness Chief Complaint: Weakness Informant: patient and EMS Narrative Narrative: Patient sent here from assisted living for weakness around 2-3 AM. No one from assisted living facility called report, EMS states they tried to get him up and were having trouble, for unknown reasoning if he had to go to the bathroom or what the deal was, limited information is available the patient does not know why he is here, but EMS said that he was too weak and so he was sent here for evaluation. He was seen here recently, there was a head CT that was concerning for possible NPH, he had a high valproic acid level, neurology recommended he betransferred to a facility that had in person neurology, he was sent to [facility] they excepted him, they did not think he had NPH but rather that his ataxia was related to his high valproate levels. They recommended he be on valproic acid 1000 mg 3 times daily, and Keppra 1500 mg twice daily for his epilepsy. Apparently [facility] There is no other information available at this time. The patient denies having any focal complaints. He initially thought he was at [facility], but he was redirectable and [facility] was his second guess. [facility] Medical History Anxiety Benign essential HTN BPH (benign prostatic hyperplasia) BPH (benign prostatic hyperplasia) Cancer Cardiology follow-up encounter Depression Easy bruising Epilepsy Gastric reflux Gout History of colon cancer History of echocardiogram History of edema History of seizure History of stress test Hyperlipemia Hypothyroid Leg cramps Loose, teeth Non-smoker Pure hypercholesterolemia Restless legs Schizophrenia Seizure disorder Shortness of breath on exertion Sleep apnea Walker as ambulation aid Wears glasses Home Medications alendronate 70 mg tablet 70 mg PO LEON OSTEOPOROSIS 12/07/16 [History Last Taken 01/03/23] allopurinol 100 mg tablet 100 mg PO QHS GOUT 12/07/16 [History Last Taken 01/03/23] atorvastatin 40 mg tablet 40 mg PO QHS CHOLESTEROL 12/07/16 [History Last Taken 01/03/23] clopidogrel 75 mg tablet 75 mg PO DAILY ANTIPLATELET 12/07/16 [History Last Taken 01/04/23] finasteride 5 mg tablet 5 mg PO DAILY PROSTATE 12/07/16 [History Last Taken 01/04/23] levothyroxine 50 mcg tablet 75 mcg PO DAILY THYROID 12/07/16 [History Last Taken 01/04/23] ascorbic acid (vitamin C) 500 mg capsule 500 mg PO DAILY@1200 SUPPLEMENT 03/17/19 [History Last Taken 01/04/23] bethanechol chloride 25 mg tablet 25 mg PO TID BLADDER 03/17/19 [History Last Taken 01/04/23] montelukast 10 mg tablet 10 mg PO QHS ALLERGIES 03/17/19 [History Last Taken 01/03/23] pantoprazole 40 mg tablet,delayed release 40 mg PO DAILY ACID REFLUX 03/17/19 [History Last Taken 01/04/23] cholecalciferol (vitamin D3) 50 mcg (2,000 unit) capsule 2,000 unit PO QHS SUPPLEMENT 07/11/19 [History Last Taken 01/03/23] magnesium oxide 400 mg (241.3 mg magnesium) tablet 400 mg PO QHS SUPPLEMENT 07/11/19 [History Last Taken 01/03/23] potassium chloride 20 mEq tablet,extended release(part/cryst) 20 meq PO BID SUPPLEMENT 07/11/19 [History Last Taken 01/04/23] ropinirole 1 mg tablet 1 mg PO TID SEIZURES 10/08/19 [History Last Taken 01/04/23] bismuth subsalicylate 262 mg/15 mL oral suspension ([place] Bismuth) 524 mg PO Q30- 60M PRN N/V 07/15/20 [History Last Taken Unknown] loratadine 10 mg capsule 10 mg PO QHS 07/15/20 [History Last Taken 01/03/23] olanzapine 5 mg disintegrating tablet 10 mg PO QHS DEPRESSION 07/15/20 [History Last Taken 01/03/23] polyethylene glycol 3350 17 gram/dose oral powder (Miralax) 17 g PO DAILY PRN Constipation 07/15/20 [History Last Taken Unknown] sennosides 8.6 mg capsule (senna) 8.6 mg PO DAILY PRN Constipation 07/15/20 [History Last Taken Unknown] spironolactone 25 mg tablet 25 mg PO .25 MG QOD, 50MG QOD DIURETIC 07/15/20 [History Last Taken 01/04/23] venlafaxine 150 mg capsule,extended release 24 hr 150 mg PO DAILY DEPRESSION 07/15/20 [History Last Taken 01/04/23] albuterol sulfate 0.63 mg/3 mL solution for nebulization 0.63 mg inhalation Q4H PRN SOB 07/01/22 [History Last Taken Unknown] guaifenesin 600 mg tablet, extended release 12 hr (Mucinex) 600 mg PO BID PRN Congestion 07/01/22 [History Last Taken Unknown] ibuprofen 600 mg tablet 600 mg PO Q6H PRN Pain 07/01/22 [History Last Taken Unknown] valproic acid (as sodium salt) 250 mg/5 mL oral solution 1,000 mg PO TID 07/01/22 [History Last Taken 01/04/23] bumetanide 1 mg tablet 2 mg PO DAILY DIURETIC 01/04/23 [History Last Taken 01/04/23] cephalexin 500 mg tablet 500 mg PO BID . 01/04/23 [History Last Taken 01/04/23] famotidine 20 mg tablet 20 mg PO BID GERD 01/04/23 [History Last Taken 01/04/23] ferrous sulfate 325 mg (65 mg iron) tablet 325 mg PO DAILY SUPPLEMENT 01/04/23 [History Last Taken 01/04/23] levetiracetam 750 mg tablet 1,500 mg PO BID . 01/04/23 [History Last Taken 01/04/23] tamsulosin 0.4 mg capsule 0.4 mg PO DAILY PROSTATE 01/04/23 [History Last Taken 01/04/23] vitamins A,C,F-dasy-gvjfpb 2,148 mcg-113 mg-45 mg-17.4 mg tablet (Eye Multivitamin) 1 tab PO DAILY SUPPLEMENT 01/04/23 [History Last Taken 01/04/23] Allergy/AdvReac Type Severity Reaction Status Date / Time aspirin Allergy cant Verified 01/10/23 01:40 remember rxn nickel Allergy Other Verified 01/10/23 01:40 oxcarbazepine Allergy cant Verified 01/10/23 01:40 [From Trileptal] remember rxn Family History Mother COPD (chronic obstructive pulmonary disease) CAD (coronary artery disease) Father Cancer lung Heart disease Myocardial infarction CAD (coronary artery disease) Aunt CAD (coronary artery disease) Myocardial infarction Surgical History History of cataract extraction History of cholecystectomy History of right hip replacement Social History household members: none housing: assisted living facility Smoking Status: Never smoker alcohol intake: never substance use type: does not use caffeine: Yes Type: carbonated beverages Number of servings: 3 ROS ROS ED Constitutional Constitutional ED: Denies chills or fever(s) Eyes Eyes: Denies change in vision or diplopia ENT ENT ED: Denies rhinorrhea or sore throat Cardiovascular Cardiovascular: Denies chest pain or palpitations Respiratory/Chest Respiratory/Chest: Denies cough or dyspnea Gastrointestinal Gastrointestinal: Denies abdominal pain, diarrhea, nausea or vomiting Genitourinary Genitourinary ED: Denies dysuria or hematuria Musculoskeletal Musculoskeletal: Denies back pain or neck pain Integumentary Denies abscess or rash Neurologic Neurologic: Denies headache(s), paresthesias or weakness Psychiatric Psychiatric: Denies anxiety or suicidal thoughts EXAM Physical Exam Const Vital Signs: 01/10/23 01:40 01/10/23 01:41 01/10/23 06:59 Temperature 98 F Temperature Source Temporal Pulse Rate 111 H 64 Respiratory Rate 14 17 Respiratory Effort Normal Non-Labored Blood Pressure 120/75 133/83 H Blood Pressure Mean 90 99 Pulse Ox 93 96 Oxygen Delivery Method Room Air Room Air Positive well nourished and well developed General Appearance ED: well developed and NAD HEENT Reports moist mucous membranes normocephalic and atraumatic Eyes PERRL and EOMs intact bilaterally Neck full ROM and supple Neck Narrative: Very kyphotic, similar to previous evaluation Resp normal respiratory effort and clear to auscultation bilaterally Cardio regular rate, regular rhythm and no murmurs GI non-tender and non-distended Auscultation: normoactive bowel sounds Palpation: soft Back/Spine no CVA tenderness General Back: other FROM Extremity normal to inspection General Extremety ED: Yes edema; Negative for pulses abnormal or tenderness General Extremity: edema bilateral lower extremity Details: mild; Negative for pulses abnormal Neuro oriented x3, CN's II-XII intact bilaterally and no sensory deficits noted Sensorium / Orientation: awake and alert Motor Exam: general weakness Skin no rashes or lesions noted and no wounds MDM MDM MDM Narrative Medical decision making narrative: While performing a work-up, patient was given some gentle IV fluids while resting here overnight during development spec. His urinalysis is negative for infection and the one that we did 6 days ago was negative. He has had 2 head CTs in the last week or 2 that were similar and unchanged from each other, he has had no recent fall or findings of a head injury so I feel a repeat CT is notindicated at this time. I did repeat his chest x-ray, 1 view on my interpretation shows no pneumonia. His valproic acid level right now is within normal limits. The rest of his basic labs are within normal limits except for mild chronic anemia. At this time the patient is resting comfortably and other than a very mild tachycardia his exam is unremarkable. He has no lateralizing neurologic deficits, he is able to move everything although he is generally weak, although it is 3-4 AM. I had staff call the assisted living facility, no one is answering. We did not get a report. EMS said the patient was weak but they tried to get him up in the middle of the night, and I do not know what his baseline is because the patient is a very poor historian. We observed him overnight and I reevaluated him in the morning, I had staff get him up to walk with his walker which is how he ambulates at baseline. This was around 6:30 AM. He did okay, short shuffling gait but was able to do so withoutany other assistance, and he said that is how he ambulates at baseline. I askedhim again about the morning at assisted living prior to getting here, he states he needed to pee and he had trouble getting up with assistance because he was tired. I asked him if he feels like he is doing okay in assisted living and he states yes. He states he wants to go back there. I asked him if he wanted to be admitted to look into placement to a higher level of care like a residential facility and he states no that he does not need that. Therefore at thistime I feel it is appropriate to discharge him back to assisted living. Lab Data Attestation: I reviewed the patient's lab results. Labs: Laboratory Results - last 24 hr 01/10/23 01/10/23 01/10/23 03:05 03:05 03:21 WBC 10.4 RBC 3.68 L Hgb 12.3 L Hct 37.6 L MCV 102.2 H MCH 33.4 H MCHC 32.7 RDW Std Deviation 49.0 H RDW Coeff of Ronna 13.1 Plt Count 168 MPV 8.4 Immature Gran % (Auto) 1.400 H Neut % (Auto) 53.9 Lymph % (Auto) 25.6 [place] % (Auto) 16.6 H Eos % (Auto) 1.7 Baso % (Auto) 0.8 Absolute Neuts (auto) 5.6 Absolute Lymphs (auto) 2.65 Nucleated RBC % 0 Macrocytosis 2+ Sodium 139 Potassium 4.3 Chloride 105 Carbon Dioxide 29.0 Anion Gap 5 BUN 12 Creatinine 0.80 Estim Creat Clear Calc 66.19 Est GFR (MDRD) Af Amer 122 Est GFR (MDRD) Non-Af 101 BUN/Creatinine Ratio 15.0 Glucose 83 Calcium 9.0 Troponin I High Sens 6 Urine Color Urine Clarity Urine pH Ur Specific Jeannette Urine Protein Urine Glucose (UA) Urine Ketones Urine Occult Blood Urine Nitrite Urine Bilirubin Urine Urobilinogen Ur Leukocyte Esterase Urine RBC Urine WBC Ur Squamous Epith Cells Urine Bacteria Hyaline Casts Urine Mucus Valproic Acid 80 01/10/23 03:22 WBC RBC Hgb Hct MCV MCH MCHC RDW Std Deviation RDW Coeff of Ronna Plt Count MPV Immature Gran % (Auto) Neut % (Auto) Lymph % (Auto) [place] % (Auto) Eos % (Auto) Baso % (Auto) Absolute Neuts (auto) Absolute Lymphs (auto) Nucleated RBC % Macrocytosis Sodium Potassium Chloride Carbon Dioxide Anion Gap BUN Creatinine Estim Creat Clear Calc Est GFR (MDRD) Af Amer Est GFR (MDRD) Non-Af BUN/Creatinine Ratio Glucose Calcium Troponin I High Sens Urine Color Yellow Urine Clarity Clear Urine pH 6.0 Ur Specific Jeannette 1.015 Urine Protein 15 H Urine Glucose (UA) Normal Urine Ketones 5 H Urine Occult Blood 25 H Urine Nitrite Negative Urine Bilirubin Negative Urine Urobilinogen Normal Ur Leukocyte Esterase Negative Urine RBC 0 SEEN Urine WBC 0 SEEN Ur Squamous Epith Cells 0 SEEN Urine Bacteria 0 SEEN Hyaline Casts 0-5 SEEN Urine Mucus 0 SEEN Valproic Acid Radiography Chest X-Ray - ED: 1 View, Read by ED Physician and No Infiltrates Diagnostic Testing: Clinical Impression(s) from Imaging Studies Chest X-Ray 01/10/23 03:31 IMPRESSION: No acute findings in the chest. Electronically Signed: Alban Marin MD at 4:01 EDT Reading Location ID and State: [facility] / [place] , Service support , Rhythm Strip Rhythm Strip: Sinus Tach Rate: 105 Ectopy: None EKG Initial EKG: Attestation: I personally reviewed and interpreted this EKG as follows: Interpretation: No Acute Injury Pattern, Sinus Tachycardia and LAFB Prior EKG tracings: available for review Prior: Unchanged Discharge Plan Triage Chief Complaint: Weakness ED Provider: Hilario Malik Dx/Rx/DC Orders Clinical Impression: Encounter for medical screening examination Instructions: ED Weakness (Uncertain Cause) Prescriptions: No Action ascorbic acid (vitamin C) 500 mg capsule 500 mg PO DAILY@1200 pantoprazole 40 mg tablet,delayed release (DR/EC) 40 mg PO DAILY bethanechol chloride 25 mg tablet 25 mg PO TID montelukast 10 mg tablet 10 mg PO QHS loratadine 10 mg capsule 10 mg PO QHS bismuth subsalicylate [[place] Bismuth] 262 mg/15 mL suspension 524 mg PO Q30-60M PRN (Reason: N/V) Rx Instructions: do not exceed 8 doses in a 24 hour period polyethylene glycol 3350 [Miralax] 17 gram/dose powder 17 g PO DAILY PRN (Reason: Constipation) senna 8.6 mg capsule 8.6 mg PO DAILY PRN (Reason: Constipation) atorvastatin 40 MG tablet 40 mg PO QHS alendronate 70 MG tablet 70 mg PO LEON clopidogrel 75 MG tablet 75 mg PO DAILY allopurinol 100 MG tablet 100 mg PO QHS levothyroxine 50 MCG tablet 75 mcg PO DAILY finasteride 5 MG tablet 5 mg PO DAILY spironolactone 25 mg tablet 25 mg PO .25 MG QOD, 50MG QOD Rx Instructions: 25mg qod, 50mg qod olanzapine 5 mg tablet,disintegrating 10 mg PO QHS ropinirole 1 MG tablet 1 mg PO TID potassium chloride 20 MEQ tablet,ER particles/crystals 20 meq PO BID magnesium oxide 400 MG tablet 400 mg PO QHS cholecalciferol (vitamin D3) 2,000 UNIT capsule 2,000 unit PO QHS venlafaxine 150 mg capsule,extended release 24hr 150 mg PO DAILY valproic acid (as sodium salt) 250 mg/5 mL Solution 1,000 mg PO TID albuterol sulfate 0.63 mg/3 mL Solution For Nebulization 0.63 mg INHALATION Q4H PRN (Reason: SOB) ibuprofen 600 mg Tablet 600 mg PO Q6H PRN (Reason: Pain) guaifenesin [Mucinex] 600 mg Tablet Extended Release 12hr 600 mg PO BID PRN (Reason: Congestion) famotidine 20 mg Tablet 20 mg PO BID tamsulosin 0.4 mg Capsule 0.4 mg PO DAILY ferrous sulfate 325 mg (65 mg iron) Tablet 325 mg PO DAILY cephalexin 500 mg Tablet 500 mg PO BID bumetanide 1 mg Tablet 2 mg PO DAILY levetiracetam 750 mg Tablet 1,500 mg PO BID Eye Multivitamin 2,148 mcg-113 mg-45 mg-17.4mg Tablet 1 tab PO DAILY Rx Instructions: administer with LUNCH Primary Care Provider: NILS CANTOR Referrals: NILS CANTOR [Other] Doctor,Your [Non-Staff] - 1 Day for another exam Activity Restrictions/Additional Instructions: Patient again has a normal work-up including a normal valproic acid level. He was offered higher level of care such as residential, and he declined/refuses. Ambulatory in ED with a walker at baseline. Disposition Disposition: Home, Self Care What to do if you have Problems For any increased pain, shortness of breath, bleeding, nausea or vomiting, chestpain, or any unexpected problems, contact your Primary Care Provider. Call [facility] ([phone]) or report to the closest Emergency Room. Call 911 if necessary. 01/10/23 0711 <Electronically signed by Hilario Malik MD> Cosigner Signature (if applicable): CC: NILS CANTOR ~ Signed [facility] Work Phone: [phone] 896-214604-08-2023 NoteHNO ID: [id number] Author: Anitha Burnette RN Service: Nursing Author Type: Registered Nurse Type: Nursing Progress Note Filed: 01/09/2023 2:00 PM Note Text: Updated patient's sister, Cha, on status and discharge tonight.[facility]04-07-2023 NoteHNO ID: [id number] Author: Adán De MD Service: Neurology General Author Type: Physician Type: Plan of Care Filed: 01/08/2023 2:40 PM Note Text: Staff Addendum: I have seen the patient, performed a neurological examination and reviewed the records personally with the resident/midlevel above and agree with the documentation. Please see their note for details. 72 year old male with chronic gait difficulties who is presenting to [facility] as a transfer from [facility] d/t concerns of NPH. Patient [...] service post discharge Adán De MD [facility]23 NoteHNO ID: [id number] Author: Lorene Ortiz MD Service: Hospital Medicine [...] (Src) 98.8 (Oral) Resp 18 Ht 5' 3" (1.60m) Wt 196 lb 10.4 oz (89.2kg) [...] Date: 01/04/2023 Images were obtained outside of [facility] OT-Chest 1 View IMPORT Result Date: 01/04/2023 Images were obtained outside of [facility] Most recent EKG normal sinus rhythm Blood [...] HTN, and KYA He was admitted to [facility] 5 days prior due to weakness [...] NAME: Anjel Ross DATE: 01/08/2023 TIME: 12:14 [place] [id number] Sherman [facility] November 16, 2022 6:41pm Note Date/Time November 16, 2022 6:41pm [facility] Medical Records Department [address] [place] [address] Emergency Department Summary 11/16/22 MR#: [id number] Acct: [id number] Name: ANJEL ROSS Rep #:[id number] : 1950 72 From: Tate Sherman MD PCP: ZACKERY De Luna Status: PRE ER Location: ED HPI History of Present Illness Chief Complaint: Male Pain/Injury Narrative Narrative: Patient presents with scrotal bleeding from the ECF. Patient has no complaints. Seems the bleeding had subsided upon ED presentation. [facility] Medical History Anxiety Benign essential HTN BPH (benign prostatic hyperplasia) BPH (benign prostatic hyperplasia) Cancer Cardiology follow-up encounter Depression Easy bruising Epilepsy Gastric reflux Gout History of colon cancer History of echocardiogram History of edema History of seizure History of stress test Hyperlipemia Hypothyroid Leg cramps Loose, teeth Non-smoker Pure hypercholesterolemia Restless legs Schizophrenia Seizure disorder Shortness of breath on exertion Sleep apnea Walker as ambulation aid Wears glasses Home Medications alendronate 70 mg tablet 70 mg PO LEON OSTEOPOROSIS 12/07/16 [History Last Taken 07/09/19] allopurinol 100 mg tablet 100 mg PO QHS GOUT 12/07/16 [History Last Taken 07/10/19] atorvastatin 40 mg tablet 40 mg PO QHS CHOLESTEROL 12/07/16 [History Last Taken 07/09/19] clopidogrel 75 mg tablet 75 mg PO DAILY ANTIPLATELET 12/07/16 [History Last Taken 07/09/19] finasteride 5 mg tablet 5 mg PO DAILY PROSTATE 12/07/16 [History Last Taken 07/09/19] levothyroxine 50 mcg tablet 75 mcg PO DAILY THYROID 12/07/16 [History Last Taken 07/06/22] acetaminophen 650 mg tablet,extended release 1,300 mg PO BID PAIN 03/23/17 [History Last Taken 07/10/19] alfuzosin 10 mg tablet,extended release 24 hr 10 mg PO QHS URINARY URGENCY 03/23/17 [History Last Taken 07/10/19] bumetanide 2 mg tablet 2 mg PO DAILY DIURETIC 03/23/17 [History Last Taken 07/09/19] ascorbic acid (vitamin C) 500 mg capsule 500 mg PO DAILY@1200 SUPPLEMENT 03/17/19 [History Last Taken 07/08/19] bethanechol chloride 25 mg tablet 25 mg PO TID BLADDER 03/17/19 [History Last Taken 07/09/19] ferrous gluconate 240 mg (27 mg iron) tablet (Ferate) 27 mg PO DAILY@1200 SUPPLEMENT 03/17/19 [History Last Taken 07/08/19] montelukast 10 mg tablet 10 mg PO QHS ALLERGIES 03/17/19 [History Last Taken 07/10/19] pantoprazole 40 mg tablet,delayed release 40 mg PO DAILY ACID REFLUX 03/17/19 [History Last Taken 07/06/22] sucralfate 1 gram tablet 1 g PO TIDCM REFLUX 03/17/19 [History Last Taken 07/09/19] vitamin E 200 unit capsule 400 unit PO QODAY SUPPLEMENT 03/17/19 [History Last Taken 07/10/19] cholecalciferol (vitamin D3) 50 mcg (2,000 unit) capsule 2,000 unit PO QHS SUPPLEMENT 07/11/19 [History Last Taken 07/10/19] magnesium oxide 400 mg (241.3 mg magnesium) tablet 400 mg PO QHS SUPPLEMENT 07/11/19 [History Last Taken 07/10/19] potassium chloride 20 mEq tablet,extended release(part/cryst) 20 meq PO BID SUPPLEMENT 07/11/19 [History Last Taken 07/10/19] ropinirole 1 mg tablet 1 mg PO TID SEIZURES 07/11/19 [History Last Taken 07/09/19] bismuth subsalicylate 262 mg/15 mL oral suspension ([place] Bismuth) 524 mg PO Q30- 60M PRN N/V 07/15/20 [History Last Taken Unknown] lactase 3,000 unit tablet 3,000 unit PO ONCE 07/15/20 [History Last Taken Unknown] levetiracetam 250 mg tablet 1,500 mg PO BID 07/15/20 [History Last Taken 07/06/22] loperamide 2 mg tablet 2 mg PO Q6H PRN Diarrhea 07/15/20 [History Last Taken Unknown] loratadine 10 mg capsule 10 mg PO QHS 07/15/20 [History Last Taken Unknown] olanzapine 5 mg disintegrating tablet 10 mg PO QHS DEPRESSION 07/15/20 [History Last Taken Unknown] polyethylene glycol 3350 17 gram/dose oral powder (Miralax) 17 g PO DAILY PRN Constipation 07/15/20 [History Last Taken Unknown] sennosides 8.6 mg capsule (senna) 8.6 mg PO DAILY PRN Constipation 07/15/20 [History Last Taken Unknown] spironolactone 25 mg tablet 25 mg PO .25 MG QOD, 50MG QOD DIURETIC 07/15/20 [History Last Taken Unknown] venlafaxine 150 mg capsule,extended release 24 hr 150 mg PO DAILY DEPRESSION 07/15/20 [History Last Taken Unknown] albuterol sulfate 0.63 mg/3 mL solution for nebulization 0.63 mg inhalation Q4H PRN SOB 07/01/22 [History Last Taken Unknown] guaifenesin 600 mg tablet, extended release 12 hr (Mucinex) 600 mg PO BID PRN Congestion 07/01/22 [History Last Taken Unknown] ibuprofen 600 mg tablet 600 mg PO Q6H PRN Pain 07/01/22 [History Last Taken Unknown] lysine 500 mg capsule 500 mg PO DAILY PRN Cold Sores 07/01/22 [History Last Taken Unknown] valproic acid (as sodium salt) 250 mg/5 mL oral solution 1,000 mg PO TID 07/01/22 [History Last Taken 07/06/22] Allergy/AdvReac Type Severity Reaction Status Date / Time aspirin Allergy cant Verified 11/16/22 18:08 remember rxn nickel Allergy Other Verified 11/16/22 18:08 oxcarbazepine Allergy cant Verified 11/16/22 18:08 [From Trileptal] remember rxn Family History Mother COPD (chronic obstructive pulmonary disease) CAD (coronary artery disease) Father Cancer lung Heart disease Myocardial infarction CAD (coronary artery disease) Aunt CAD (coronary artery disease) Myocardial infarction Surgical History History of cataract extraction History of cholecystectomy History of right hip replacement Social History household members: none housing: assisted living facility Smoking Status: Never smoker alcohol intake: never substance use type: does not use caffeine: Yes Type: carbonated beverages Number of servings: 3 ROS ROS ED ROS Narrative Past medical history: Reviewed Medications: Reviewed Social history: Noncontributory Review of systems: GI: No abdominal pain Genitourinary: Scrotal bleeding as in HPI Musculoskeletal: Denies myalgias no difficulty with ambulation Skin: No other rash Neurological: No memory loss, confusion or any focal weakness Hematologic: No easy bleeding or easy bruising EXAM Physical Exam Narrative Exam Narrative: Physical exam General: Patient appears chronically ill. He does not appear in any distress. Head: Normocephalic, Atraumatic Eyes: Conjunctiva not pale ENT: Moist mucous membranes, no signs of dehydration Cardiovascular: Regular rate, Regular rhythm Respiratory: No distress, CTA bilaterally Abdomen: Soft, Nontender, Nondistended :. Normal external genitalia, there is old blood over the scrotum when I cleaned it off there is a punctate area that started bleeding again. No erythema or calor or signs of infection. Back: Nontender, Normal Inspection. Negative for: CVA tenderness Extremities: Nontender, No edema Skin normal color Const Vital Signs: 11/16/22 18:12 Temperature 98.1 F Temperature Source Oral Pulse Rate 91 Respiratory Rate 18 Blood Pressure 107/78 Blood Pressure Mean 87 Pulse Ox 97 Oxygen Delivery Method Room Air MDM MDM MDM Narrative Medical decision making narrative: ECF records were reviewed, patient has seems to have no other complaints, after cauterization the bleeding stopped patient is now back to normal. He can be discharged back to the ECF Procedures Other Procedures Procedure(s): Hemostasis of scrotal bleeding I used silver nitrate and cauterized that 1 punctate bleeding area. Patient tolerated procedure well. Bleeding stopped Discharge Plan Triage Chief Complaint: Male Pain/Injury ED Provider: Tate Sherman Dx/Rx/DC Orders Clinical Impression: Scrotal bleeding, History of hypertension Prescriptions: No Action ascorbic acid (vitamin C) 500 mg capsule 500 mg PO DAILY@1200 pantoprazole 40 mg tablet,delayed release (DR/EC) 40 mg PO DAILY vitamin E 200 unit capsule 400 unit PO QODAY ferrous gluconate [Ferate] 240 mg (27 mg iron) tablet 27 mg PO DAILY@1200 sucralfate 1 gram tablet 1 g PO TIDCM bethanechol chloride 25 mg tablet 25 mg PO TID montelukast 10 mg tablet 10 mg PO QHS levetiracetam 250 mg tablet 1,500 mg PO BID loratadine 10 mg capsule 10 mg PO QHS bismuth subsalicylate [[place] Bismuth] 262 mg/15 mL suspension 524 mg PO Q30-60M PRN (Reason: N/V) Rx Instructions: do not exceed 8 doses in a 24 hour period loperamide 2 mg tablet 2 mg PO Q6H PRN (Reason: Diarrhea) polyethylene glycol 3350 [Miralax] 17 gram/dose powder 17 g PO DAILY PRN (Reason: Constipation) lactase 3,000 unit tablet 3,000 unit PO ONCE Rx Instructions: administer with meals and/or snacks senna 8.6 mg capsule 8.6 mg PO DAILY PRN (Reason: Constipation) atorvastatin 40 MG tablet 40 mg PO QHS alendronate 70 MG tablet 70 mg PO LEON clopidogrel 75 MG tablet 75 mg PO DAILY allopurinol 100 MG tablet 100 mg PO QHS levothyroxine 50 MCG tablet 75 mcg PO DAILY finasteride 5 MG tablet 5 mg PO DAILY spironolactone 25 mg tablet 25 mg PO .25 MG QOD, 50MG QOD Rx Instructions: 25mg qod, 50mg qod olanzapine 5 mg tablet,disintegrating 10 mg PO QHS bumetanide 2 MG tablet 2 mg PO DAILY acetaminophen 650 MG tablet extended release 1,300 mg PO BID alfuzosin 10 MG tablet extended release 24 hr 10 mg PO QHS ropinirole 1 MG tablet 1 mg PO TID potassium chloride 20 MEQ tablet,ER particles/crystals 20 meq PO BID magnesium oxide 400 MG tablet 400 mg PO QHS cholecalciferol (vitamin D3) 2,000 UNIT capsule 2,000 unit PO QHS venlafaxine 150 mg capsule,extended release 24hr 150 mg PO DAILY valproic acid (as sodium salt) 250 mg/5 mL Solution 1,000 mg PO TID L-Lysine 500 mg Capsule 500 mg PO DAILY PRN (Reason: Cold Sores) albuterol sulfate 0.63 mg/3 mL Solution For Nebulization 0.63 mg INHALATION Q4H PRN (Reason: SOB) ibuprofen 600 mg Tablet 600 mg PO Q6H PRN (Reason: Pain) guaifenesin [Mucinex] 600 mg Tablet Extended Release 12hr 600 mg PO BID PRN (Reason: Congestion) Primary Care Provider: Becka Hines EPIC PRELUDE ANALYST Referrals: Becka Hines EPIC PRELUDE ANALYST, EPIC PRELUDE ANALYST-C [Primary Care Provider] - Activity Restrictions/Additional Instructions: You have a very small area of scrotal bleeding if this happens again put pressure on the scrotum for 15 minutes. Disposition Disposition: Home, Self Care What to do if you have Problems For any increased pain, shortness of breath, bleeding, nausea or vomiting, chestpain, or any unexpected problems, contact your Primary Care Provider. Call [facility] ([phone]) or report to the closest Emergency Room. Call 911 if necessary. 11/16/221840 <Electronically signed by Tate Sherman MD> Cosigner Signature (if applicable): CC: EPIC PRELUDE ANALYSTWojciech Hines ~ Signed [facility] Work Phone: [phone] 597-246412-27-2022 Miscellaneous Notes* Telephone Encounter - Yury Gerber PA-C - 09/29/2022 3:00 PM EST The following approved medication requests have been transmitted electronically. Requested Prescriptions Signed Prescriptions Disp Refills valproic acid (DEPAKENE) 250 mg/5 mL syrup 1800 mL 5 Sig: Take 20 mL by mouth three times daily. Authorizing Provider: YURY GERBER PA-C * Telephone Encounter - Silvia Trent - 09/29/2022 8:51 AM EST Prescription Refill: Requested by: pharmacy Please Fax Caller Contact Number: [facility] Name: [facility] Pharmacy Number: [id number] Generic/ brand: 30 or 90 day supply requested: 90 Last appointment: 03/06/22 Next Appointment: none Patient of Dr. Chung documented in this encounterUniversity [facility]als [facility]10-28-2022 NoteHNO ID: [id number] Author: Mateo Benton MD Service: ? Author Type: Physician Type: Progress Notes Filed: 07/31/2022 9:27 AM Note Text: Subjective: Patient is status post a colonoscopy completed at [facility] on 07/06/2022. Patient was noted to [...] need to have another colonoscopy in 5 years.[facility]10-28-2022 History of Present illness Narrative* Mateo Benton MD - 07/31/2022 9:23 AM EDT Subjective: Patient is status post a colonoscopy completed at [facility] on 07/06/2022. Patient was noted to [...] colonoscopy in 5 years. documented in this encounterUniversity Hospitals [facility]10-11-2022 Miscellaneous Notes* Telephone Encounter - Georgie Huitron - 07/14/2022 2:35 PM EDT They will call back to schedule.Georgie Huitron * Telephone Encounter - Elizabeth Ruth LPN - 07/14/2022 1:26 PM EDT Please call patient to schedule a virtual or office visit to view colonoscopy results. Thank you. Anjel# [phone] * Telephone Encounter - Silvia Huitron - 07/14/2022 1:05 PM EDT Patient called requesting results from colonoscopy. documented in this encounterUniversity Hospitals [facility]07-12-2022 NoteHNO ID: [id number] Author: Madelin Ferguson PA-C Service: ? Author Type: Physician Advanced Practice Rn Type: Progress Notes Filed: 04/27/2022 9:34 AM Note Text: HISTORY AND PHYSICAL Anjel Ross 1950 REFERRING PHYSICIAN: Maddie Cantor DO CHIEF COMPLAINT: Consult (colonoscopy consult) HPI: The patient is a 71 year old male referred for endoscopy. Anjel notes a personal history of colon cancer diagnosed in 2014. He is s/p right hemicolectomy 01/21/15 which showed invasive adenocarcinoma. Most recent colonoscopy 03/26/[address] Anjel Nagy at [facility]. Patient was noted to have a [...] disease, hypertension, seizures. Patient follows with Dr. Maddie Cantor in primary care for his chronic [...] W/COLLJ SPEC WHEN PFRMD 03/25/16 Colonoscopy outpt [facility] - COLSC FLX W/REMOVAL LESION BY [...] mg by mouth daily at bedtime. - Wdfgr-1-RLC-EPA-Fish Oil (FISH OIL) 1,000 mg (120 mg-180 [...] chloride (KLOR-CON) 20 mEq (more content not included)...[facility]06-10-2022 Miscellaneous Notes* Telephone Encounter - Gerri De La Cruz RN - 03/13/2022 1:58 PM EDT Notified Silvia rx has been sent and a PA will be completed if needed. Dorothy Talley RN * Telephone Encounter - Miquel Obregon APRN.CNP - 03/13/2022 1:36 PM EDT The following approved medication requests have been transmitted electronically. Signed Prescriptions Disp Refills valproic acid (DEPAKENE) 250 mg/5 mL syrup 1800 mL 5 Sig: Take 20 mL by mouth three times daily. Authorizing Provider: MIQUEL OBREGON APRN.CNP * Telephone Encounter - Gerri De La Cruz RN - 03/13/2022 11:18 AM EDT Recent visit 03/06/22 with Nils Marie CNP: ASSESSMENT: Anjel Ross is a 71 year old male with history of seizures. No seizures that patient or stffcan report. Remains on current medications. Health is [...] Update forwarded for review. Dorothy Talley RN * Telephone Encounter - Imani Mejia - 03/13/2022 11:09 AM EDT Medication Concern Person Calling Silvia Rehman from [facility] Name of medication Depakote XR. Concern with medication Nurse advised pt is having difficulty swallowing pill and since XR she can't crush. Nurse is asking if can get non XR or liquid so it's not difficult for pt? Patient of Dr. Chung documented in this encounterUniversity Hospitals [facility]06-03-2022 NoteHNO ID: [id number] Author: Nils Marie APRN.KRISTEN Service: ? Author Type: Nurse Practitioner Type: Progress Notes Filed: 03/10/2022 9:06 AM Note Text:[facility]06-03-2022 NoteHNO ID: [id number] Author: Nils Marie APRN.COSMETIC CONSULTANT Service: ? Author Type: Nurse Practitioner Type: Progress Notes Filed: 03/10/2022 9:01 AM Note Text: [facility] VIRTUAL VISIT HISTORY OF PRESENT ILLNESS: Anjel Ross is a 71 year old male who is diagnosed with seizures, and presents today for virtual visit. They are an established patient of Dr. Cobian and was last seen on 11/11/2020. Seizures: None that he can remember Last reported GTC around Thanksgi08/2020. AED's: LEV 1500mg BID VPA 1000mg TID Pregabalin 200mg TID In other health,stable for what he can tell me and staff around him. Occupation: Retired. Lives in assisted living place in [place], [place] Driving: no Mood: ok Memory: poor [...] mg by mouth daily at bedtime. - Bbdpq-3-OHF-EPA-Fish Oil (FISH OIL) 1,000 mg (120 mg-180 [...] 09/11/2005 Colonoscopy - COLONOSCOP W/ OR W/O BRSH SPEC 12/06/14 Colonoscopy - COLONOSCOP W/ OR W/O BRSH SPEC 03/25/16 Colonoscopy outpt [facility] - COLONS W/REM POLYP HT BX 03/26/2017 - EG (more content not included)...[facility]06-03-2022 History of Present illness Narrative* Nils Marie, RESIDENT CARE AIDE.COSMETIC CONSULTANT - 03/06/2022 2:10 PM EDT [facility] VIRTUAL VISIT HISTORY OF PRESENT ILLNESS: Anjel Ross is a 71 year old male who is diagnosed with seizures, and presents today for virtual visit. They are an established patient of Dr. Chung'kristine and was last seen on 11/11/2020. Seizures: None that he can remember Last reported GTC around 08/2020. AED's: LEV 1500mg BID VPA 1000mg TID Pregabalin 200mg TID In other health,stable for what he can tell me and staff around him. Occupation: Retired. Lives in assisted living place in [place], [place] Driving: no Mood: ok Memory: poor [...] 10 mg by mouth daily at bedtime. Xqnpt-7-VDY-EPA-Fish Oil (FISH OIL) 1,000 mg (120 mg-180 [...] CIRCUMCISION,OTHR AGE 6 COLONOSCOP W/ OR W/O [facility] SPEC 09/11/2005 Colonoscopy COLONOSCOP W/ OR W/O [facility] SPEC 12/06/14 Colonoscopy COLONOSCOP W/ OR W/O [facility] SPEC 03/25/16 Colonoscopy outpt [facility] COLONS W/REM POLYP HT BX 03/26/2017 EGD W/O OR W/BRUSH/WASH 11/22/14 EGD EGD W/O OR W/BRUSH/WASH 12/06/14 EGD LAP COLECTMY W/ILEUM/ILEOCOL 01-21-15 LAPAROSCOPIC CHOLEYCYSTECTOMY 01-21-15 WITH COLON PARTIAL HIP REPLACEMENT 90s Hip replacement, partial Rt PAST SURGICAL HISTORY OF ORTHOPEDIC ON KNEES FAMILY HISTORY Problem Relation Age of Onset Heart Mother SJORGENS, ANGIOPLASTY, ASHD Cancer Father LUNG Heart Father OR X 3 Heart Maternal Aunt OR Diabetes Maternal Aunt other (EPILEPSY) Paternal Grandfather ASSESSMENT: Anjel Ross is a 71 year old male with history of seizures. No seizures that patient or stffcan report. Remains on current medications. Health is [...] this encounter counseling on seizures and medications. Nils Marie APRN.CNP March 09, 2022 * Nils Marie APRN.CNP - 03/06/2022 2:10 PM EDT documented in this encounterUniversity Hospitals [facility]05-26-2022 Miscellaneous Notes* Telephone Encounter - Miquel Obregon APRN.CNP - 02/26/2022 1:33 PM EDT The following approved medication requests have been transmitted electronically. Signed Prescriptions Disp Refills levETIRAcetam (KEPPRA) 750 mg tablet 120 tablet 0 Si TABLETS (1,500MG) BY MOUTH 2 TIMES A DAY DX: / NURSE TO REORDER CHERIE: No Authorizing Provider: MIQUEL OBREGON APRN.CNP documented in this encounterUniversity Hospitals [facility] Center05-06-2022 Miscellaneous Notes* Telephone Encounter - Miquel Obregon APRN.CNP - 02/06/2022 10:12 AM EDT The following approved medication requests have been transmitted electronically. Signed Prescriptions Disp Refills divalproex ER (DEPAKOTE ER) 500 mg 24 hr tablet 180 tablet 0 Sig: Take 2 tablets by mouth three times daily. CHERIE: No Authorizing Provider: MIQUEL OBREGON documented in this encounterUniversity Hospitals [facility] Center04-26-2016 History of Past illness Narrative* Problem Noted Date Resolved Date Obesity due to excess calories 01/28/2016 0 02/04/2017 Family history of ischemic heart disease 016 10/02/2020 Colon cancer 12/31/2014 02/07/2015 Overview: Laparoscopic cholecystectomy, laparoscopic right hemicolectomy. Dr. Anjel Nagy [facility] 01/21/15 Special screening for malignant neoplasms, colon 12/06/2014 12/06/2014 Occult blood in stools 11/22/2014 5 Gout 08/10/2014 08/24/2015 Medicare annual wellness visit, initial 11/09/19 14 11/20/2019 Convulsions 11/06/2005 10/02/2020 documented as of this encounter (statuses as of 02/06/2022) [facility]04-26-2016 History of Past illness Narrative* Problem Noted Date Resolved Date Obesity due to excess calories 01/28/2016 0 02/04/2017 Family history of ischemic heart disease 016 10/02/2020 Colon cancer 12/31/2014 02/07/2015 Overview: Laparoscopic cholecystectomy, laparoscopic right hemicolectomy. Dr. Anjel Nagy [facility] 01/21/15 Special screening for malignant neoplasms, colon 12/06/2014 12/06/2014 Occult blood in stools 11/22/2014 5 Gout 08/10/2014 08/24/2015 Medicare annual wellness visit, initial 11/09/19 14 11/20/2019 Convulsions 11/06/2005 10/02/2020 documented as of this encounter (statuses as of 03/10/2022) [facility] History of Past illness Narrative* Problem Noted Date Resolved Date Obesity due to excess calories 01/28/2016 0 02/04/2017 Family history of ischemic heart disease 016 10/02/2020 Colon cancer 12/31/2014 02/07/2015 Overview: Laparoscopic cholecystectomy, laparoscopic right hemicolectomy. Dr. Anjel Nagy [facility] 01/21/15 Special screening for malignant neoplasms, colon 12/06/2014 12/06/2014 Occult blood in stools 11/22/2014 5 Gout 08/10/2014 08/24/2015 Medicare annual wellness visit, initial 11/09/19 14 11/20/2019 Convulsions 11/06/2005 10/02/2020 documented as of this encounter (statuses as of 03/13/2022) [facility] History of Past illness Narrative* Problem Noted Date Resolved Date Obesity due to excess calories 01/28/2016 0 02/04/2017 Family history of ischemic heart disease 016 10/02/2020 Colon cancer 12/31/2014 02/07/2015 Overview: Laparoscopic cholecystectomy, laparoscopic right hemicolectomy. Dr. Anjel Nagy [facility] 01/21/15 Special screening for malignant neoplasms, colon 12/06/2014 12/06/2014 Occult blood in stools 11/22/2014 5 Gout 08/10/2014 08/24/2015 Medicare annual wellness visit, initial 11/09/19 14 11/20/2019 Convulsions 11/06/2005 10/02/2020 documented as of this encounter (statuses as of 07/14/2022) [facility] History of Past illness Narrative* Problem Noted Date Resolved Date Obesity due to excess calories 01/28/2016 0 02/04/2017 Family history of ischemic heart disease 016 10/02/2020 Colon cancer 12/31/2014 02/07/2015 Overview: Laparoscopic cholecystectomy, laparoscopic right hemicolectomy. Dr. Anjel Nagy [facility] 01/21/15 Special screening for malignant neoplasms, colon 12/06/2014 12/06/2014 Occult blood in stools 11/22/2014 5 Gout 08/10/2014 08/24/2015 Medicare annual wellness visit, initial 11/09/19 14 11/20/2019 Convulsions 11/06/2005 10/02/2020 documented as of this encounter (statuses as of 07/31/2022) [facility] History of Past illness Narrative* Problem Noted Date Resolved Date Obesity due to excess calories 01/28/2016 0 02/04/2017 Family history of ischemic heart disease 016 10/02/2020 Colon cancer 12/31/2014 02/07/2015 Overview: Laparoscopic cholecystectomy, laparoscopic right hemicolectomy. Dr. 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)- Primary [facility]No assessment information availableWooNorwalk [facility] Work Phone: Evaluation note* Diagnosis Personal history of colon cancer- Primary Personal history of malignant neoplasm of large intestine History of colonic polyps Personal history of colonic polyps documented in this encounter [facility] Diagnosis Onset Date Resolution Status Ataxia acute Hypokalemia acute Serum sodium valproate above therapeutic range acute Encounter for medical screening examination acute Weakness acute [facility] Work Phone: Evaluation note* Diagnosis Onset Date Resolution Status Ataxia acute Hypokalemia resolved Serum sodium valproate above therapeutic range resolved Encounter for medical screening examination acute Weakness acute [facility] Work Phone: Hospital Discharge instructions Additional Instructions You have a very small area of scrotal bleeding if this happens again put pressure on the scrotum for 15 minutes.[facility] Work Phone: Hospital Discharge instructions Additional Instructions Imaging of brain/head and low back and negative for nothing acute, old L1 compression fracture noted and stable.[facility] Work Phone: Hospital Discharge instructions Additional Instructions Patient again has a normal work-up including a normal valproic acid level. He was offered higher level of care such as residential, and he declined/refuses. Ambulatory in ED with a walker at baseline.[facility] Work Phone: Reason for referral (narrative)No reason for referral information availableWMagruder Hospital Work Phone: Summary Purpose Family History No Family History Records Found Relationship Condition Age at Onset Recorded Date/T anh mother Chronic obstructive pulmonary disease Unk nown Coronary artery disease Unknown father Malignant neoplasm Unknown Cardiac disease Unknown Myocardial infarction Unknown aunt Coronary artery disease Unknown Advance Directives No Advanced Directives Records FoundDocuments on File Type Date Recorded 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 Advance Directive(s) 03/18/2020 12:37 PM Advance Directive(s) 02/21/2020 1:12 PM Advance Directive(s) 12/08/2019 4:35 PM Advance Directive(s) 05/05/2016 10:27 AM Advance Directive(s) 12/27/2015 9:39 AM Advance Directive(s) 12/13/2015 10:23 AM Advance Directive Response Recorded Date/ Time Advance Directives Yes May 27, 2018 9:42am Living Will Yes July 01, 2022 1:39pm Power of Finishing Pan Operator Yes June 1:39pm Name of Medical Power of Finishing Pan Operator MARLY CONTI July 01, 2022 1:39pm Documents on File Type Date Recorded 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 Advance Directive(s) 05/05/2016 10:27 AM Advance Directive Response Recorded Date/ Time Name of Medical Power of Finishing Pan Operator MARLY CONTI July 01, 2022 12:39pm Advance Directives Yes May 27, 2018 8:42am Living Will No August 11 3:00pm Power of Finishing Pan Operator No August 11, 2022 3:00pm Advance Directive Response Recorded Date/ Time Name of Medical Power of Finishing Pan Operator SUSHMA MORALES November 16, 2022 6:13pm Advance Directives Yes May 27, 2018 8:42am Living Will Yes November 16 6:13pm Power of Finishing Pan Operator Yes November 16, 2022 6:13pm Advance Directive Response Recorded Date/ Time Name of Medical Power of Finishing Pan Operator SUSHMA MORALES November 16, 2022 7:13pm Name of Medical Power of Finishing Pan Operator unknown December 31, 2022 6:02am Advance Directives Yes May 27, 2018 9:42am Living Will Yes December 31, 2022 6:02am Power of Finishing Pan Operator Yes December 31 6:02am Advance Directive Response Recorded Date/ Time Name of Medical Power of Finishing Pan Operator SUSHMA MORALES November 16, 2022 7:13pm Name of Medical Power of Finishing Pan Operator unknown December 31, 2022 6:02am Name of Medical Power of Finishing Pan Operator DREA CONTI January 04, 2023 8:30pm Name of Medical Power of Finishing Pan Operator ? January 10, 2023 1:42am Advance Directives Yes May 27, 2018 9:42am Living Will Yes January 10, 2023 1:42am Power of Finishing Pan Operator Yes January 10 1:42am Advance Directive Response Recorded Date/ Time Name of Medical Power of Finishing Pan Operator SUSHMA MORALES November 16, 2022 7:13pm Name of Medical Power of Finishing Pan Operator unknown December 31, 2022 6:02am Name of Medical Power of Finishing Pan Operator DREA CONTI January 04, 2023 8:30pm Name of Medical Power of Finishing Pan Operator Drea Conti (sushma) January 10, 2023 10:23am Advance Directives Yes May 27, 2018 9:42am Living Will Yes January 10, 2023 10:23am Power of Finishing Pan Operator Yes January 10 10:23am Advance Directive Response Recorded Date/ Time Advance Directives Yes July 12, 2020 10:01am Living Will Yes January 10, 2023 10:23am Power of Finishing Pan Operator Yes January 10 10:23am Advance Directive Response Recorded Date/ Time Advance Directives Yes July 12, 2020 9:01am Living Will Yes January 10, 2023 9:23am Power of Finishing Pan Operator Yes January 10 9:23am Advance Directive Response Recorded Date/ Time Advance Directives Yes July 12, 2020 10:01am Chief Complaint and Reason for Visit Chief Complaint si Chief Complaint si Chief Complaint Fall Chief Complaint Fall GAIT DEBILITY, NPH GAIT DEBILITY, NPH GAIT DEBILITY, NPH GAIT DEBILITY, NPH GAIT DEBILITY, NPH WEAKNESS AND DEBILITY Reason for Visit Ataxia Hypokalemia Serum sodium valproate above therapeutic range Encounter for medical screening examination Weakness Chief Complaint Fall GAIT DEBILITY, NPH GAIT DEBILITY, NPH GAIT DEBILITY, NPH GAIT DEBILITY, NPH GAIT DEBILITY, NPH WEAKNESS AND DEBILITY WEAKNESS AND DEBILITY WEAKNESS AND DEBILITY WEAKNESS AND DEBILITY WEAKNESS AND DEBILITY WEAKNESS AND DEBILITY WEAKNESS AND DEBILITY WEAKNESS AND DEBILITY WEAKNESS AND DEBILITY Reason for Visit Ataxia Hypokalemia Serum sodium valproate above therapeutic range Encounter for medical screening examination Weakness Chief Complaint USP LABWORK USP LABWORK LAB WORK USP LAB WORK Chief Complaint USP LAB WOR K LABWORK Chief Complaint USP LAB WOR K USP LAB WORK LABWORK Chief Complaint USP LAB WOR K LABWORK USP LAB WORK Chief Complaint USP LAB WOR K LABWORK USP LAB WORK LABWORK Chief Complaint USP LAB WOR K LABWORK USP LAB WORK LABWORK USP LAB WORK Chief Complaint USP LAB WOR K LABWORK USP LAB WORK LABWORK USP LAB WORK LABWORK Chief Complaint USP LAB WOR K LABWORK USP LAB WORK LABWORK USP LAB WORK USP LAB WORK LABWORK Chief Complaint USP LAB WOR K LABWORK USP LAB WORK LABWORK USP LAB WORK USP LAB WORK LABWORK USP LAB WORK Chief Complaint USP LAB WOR K LABWORK USP LAB WORK USP LAB WORK LABWORK USP LAB WORK USP LAB WORK Chief Complaint LABWORK USP LAB WORK USP LAB WORK LABWORK USP LAB WORK USP LAB WORK USP LAB WORK LABWORK Chief Complaint Admit Date LABWORK September 29, 2024 5:00am LABWORK October 05, 2024 5: 00am Doppler results November 01, 2024 1 0:09am LABWORK December 06, 2024 5:00 am Reason for Visit Admit Date Bilateral lower extremity edema November 01, 2024 10:09am PVD (peripheral vascular disease) [place] 2024 10:09am Chief Complaint Admit Date Doppler results November 01, 2024 1 0:09am LABWORK December 06, 2024 5:00 am LAB WORK January 02, 2025 5:00 am USP LAB WORK January 03, 2025 5: 00am LABWORK January 05, 2025 6:34 am 3-4 M FU January 31, 2025 11: 04am LABWORK February 01, 2025 5:00am PVD February 13, 2025 9:06a m Reason for Visit Admit Date Bilateral lower extremity edema November 01, 2024 10:09am PVD (peripheral vascular disease) [place] 2024 10:09am Bilateral lower extremity edema January 312024 11:04am PVD (peripheral vascular disease) January 31, 2025 11:04am Additional Source Comments (unrecognized sect ion and content) No Status Records FoundNo Status Records FoundNo Status Records FoundNo Status Records FoundNo Status Records Found INFORMATION SOURCE (unrecogn ized section and content) DATE CREATED AUTHOR 03/23/2018 [facility] DATE CREATED AUTHOR AUTHOR'S ORGANIZ ATION 08/01/2022 [facility] DATE CREATED AUTHOR AUTHOR'S ORGANIZ ATION 01/16/2023 [facility] DATE CREATED AUTHOR AUTHOR'S ORGANIZ ATION 04/27/2024 [facility] EPIC DATE CREATED AUTHOR AUTHOR'S ORGANIZ ATION 04/25/2025 [facility] Source Comments (unrecognize d section and content) In the event this informatio n is protected by the Federal Confidentiality of Alcohol and Drug Abuse Patient Records regulations: The Federal rules restrict any use of the information to criminally investigate or prosecute any alcohol or drug abuse patient.[facility] the event this information is protected by the Federal Confidentiality of Alcohol and Drug Abuse Patient Records regulations: The Federal rules restrict any use of the information to criminally investigate or prosecute any alcohol or drug abuse patient.[facility] Center[facility] the event this information is protected by the Federal Confidentiality of Alcohol and Drug Abuse Patient Records regulations: The Federal rules restrict any use of the information to criminally investigate or prosecute any alcohol or drug abuse patient.[facility] Center[facility] the event this information is protected by the Federal Confidentiality of Alcohol and Drug Abuse Patient Records regulations: The Federal rules restrict any use of the information to criminally investigate or prosecute any alcohol or drug abuse patient.[facility] CenterIn the event this information is protected by the Federal Confidentiality of Alcohol and Drug Abuse Patient Records regulations: The Federal rules restrict any use of the information to criminally investigate or prosecute any alcohol or drug abuse patient.[facility] CenterIn the event this information is protected by the Federal Confidentiality of Alcohol and Drug Abuse Patient Records regulations: The Federal rules restrict any use of the information to criminally investigate or prosecute any alcohol or drug abuse patient.[facility] CenterIn the event this information is protected by the Federal Confidentiality of Alcohol and Drug Abuse Patient Records regulations: The Federal rules restrict any use of the information to criminally investigate or prosecute any alcohol or drug abuse patient.[facility] Reason for Visit (unrecogniz ed section and content) Reason Comments Refill Request Reason Comments Follow Up Refill Request Seizures Reason Comments Medication Question Depakote XR Reason Comments Results Reason Comments Follow Up Review colonoscopy r esults Reason Onset Date Comments Refill Request 09/29/2022 Care Teams (unrecognized sec tion and content) 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 Relationship Specialty Start Date End Date Maddie Cantor [address] [place] [address] PCP - General Internal Medicine 02/21/20 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 Relationship Specialty Start Date End Date Maddie Cantor [address] [place] [address] PCP - General Internal Medicine 02/21/20 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 Relationship Specialty Start Date End Date Maddie Cantor [address] [place] [address] PCP - General Internal Medicine 02/21/20 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 Relationship Specialty Start Date End Date Maddie Cantor [address] [place] [address] PCP - General Internal Medicine 02/21/20 Team Status: Active Member Role Status Dates Becka Hines EPIC PRELUDE ANALYST, EPIC PRELUDE ANALYST-C Family Provider Active No Primary Care Physician Primary Care Provider Active Team Status: Inactive Member Role Status Dates Becka Hines EPIC PRELUDE ANALYST, EPIC PRELUDE ANALYST-C Primary Care Provider Act ashish Dr. Donovan Skaggs MD Attending Provider, Emergency Provi tsering Active Team Status: Inactive Member Role Status Dates Dr. Tate Sherman MD Emergency Provider Active No Primary Care Physician Primary Care Provider Active Team Status: Active Member Role Status Dates Becka Hines EPIC PRELUDE ANALYST, EPIC PRELUDE ANALYST-C Family Provider Active Dr. Maddie MACIEL, DO Primary Care Provider Acti ve Team Status: Inactive Member Role Status Dates Dr. Tate Sherman MD Attending Provider, Emergency Pr ovider Active No Primary Care Physician Primary Care Provider Active Team Status: Inactive Member Role Status Dates Dr. Maddie MACIEL, DO Primary Care Provider Acti ve Dr. Hilario Malik MD Emergency Provider Active Team Status: Active Member Role Status Dates Becka Hines EPIC PRELUDE ANALYST, EPIC PRELUDE ANALYST-C Family Provider Active NILS CANTOR Primary Care Provider Active Team Status: Active Member Role Status Dates Dr. Maddie MACIEL, DO Primary Care Provider Acti ve Dr. Hilario Malik MD Emergency Provider Active Dr. Carrie Hooper MD Admit Provider, Attending Provider, Other Provider Active Team Status: Active Member Role Status Dates Dr. Maddie MACIEL, DO Primary Care Provider Acti ve Dr. Hilario Malik MD Emergency Provider Active Dr. Carrie Hooper MD Admit Provider, Other Provider Active Dr. Chino Cannon MD Attending Provider, Other Provid er Active Team Status: Active Member Role Status Dates Dr. Hilario Malik MD Emergency Provider Active Dr. Carrie Hooper MD Admit Provider, Other Provider Active Dr. Chino Cannon MD Attending Provider, Other Provid er Active Team Status: Inactive Member Role Status Dates Dr. Maddie MACIEL, DO Primary Care Provider Acti ve Dr. Hilario Malik MD Attending Provider, Emergency Provider Active Team Status: Inactive Member Role Status Dates Dr. Hilario Malik MD Emergency Provider Active Dr. Carrie Hooper MD Admit Provider, Other Provider Active Dr. Chino Cannon MD Attending Provider Active Team Status: Active Member Role Status Dates Dr. Hilario Malik MD Emergency Provider Active SAKSHI WRAY Primary Care Provider Active Dr. Kary Recio MD Admit Provider, Attending Prov ider Active Team Status: Active Member Role Status Dates Dr. Hilario Malik MD Emergency Provider Active SAKSHI WRAY Primary Care Provider Active Dr. Kary Recio MD Admit Provider, Other Provider Active Dr. Nina Wilder MD Attending Provider, Other Provid er Active Team Status: Active Member Role Status Dates Dr. Hilario Malik MD Emergency Provider Active SAKSHI WRAY Primary Care Provider Active Dr. Kary Recio MD Admit Provider, Attending Provider, Other Provider Active Dr. Nina Wilder MD Other Provider Active Team Status: Inactive Member Role Status Dates Dr. Hilario Malik MD Emergency Provider Active SAKSHI WRAY Primary Care Provider Active Dr. Kary Recio MD Admit Provider, Attending Provider, Other Provider Active Dr. Nina Wilder MD Other Provider Active Team Status: Active Member Role Status Dates Becka Hines EPIC PRELUDE ANALYST, EPIC PRELUDE ANALYST-C Family Provider Active [facility] Doctor Primary Care Provider Active Team Status: Inactive Member Role Status Dates [facility] Doctor Primary Care Provider Active [facility] Attending Provider Acti ve Team Status: Inactive Member Role Status Dates [facility] Doctor Primary Care Provider Active Dr. Avani MACIEL MD Attending Provider Active Team Status: Active Member Role Status Dates [facility] Doctor Primary Care Provider Active Dr. Avani MACIEL MD Attending Provider Active Team Status: Inactive Member Role Status Dates [facility] Doctor Primary Care Provider Active Dr. Avani MACIEL MD Attending Provider, Referring Provider Active Team Status: Active Member Role Status Dates Becka Hines EPIC PRELUDE ANALYST, EPIC PRELUDE ANALYST-C Family Provider Active Dr. Avani Eduardo MD Primary Care Provider Active Team Status: Inactive Member Role Status Dates [facility] Doctor Primary Care Provider Active Start: September 29, 2024 End: September 29, 2024 Dr. Avani MACIEL MD Attending Provider Active Start: September 29, 2024 End: September 29, 2024 Team Status: Inactive Member Role Status Dates Dr. Avani Eduardo MD Primary Care Provider Active Start: October 05, 2024 End: October 05, 2024 Dr. Avani MACIEL MD Attending Provider Active Start: October 05, 2024 End: October 05, 2024 Team Status: Inactive Member Role Status Dates [facility] Attending Provider Active Star t: November 01, 2024 End: November 01, 2024 Dr. Avani Eduardo MD Primary Care Provider Active Start: November 01, 2024 End: November 01, 2024 Dr. Avani Eduardo MD Referring Provider Active Start: November 01, 2024 End: November 01, 2024 Team Status: Inactive Member Role Status Dates Dr. Avani Eduardo MD Primary Care Provider Active Start: December 06, 2024 End: December 06, 2024 Dr. Avani MACIEL MD Attending Provider Active Start: December 06, 2024 End: December 06, 2024 Team Status: Active Member Role Status Dates Dr. Avani Eduardo MD Primary Care Provider Active Start: January 02, 2025 Dr. Avani MACIEL MD Attending Provider Active Start: January 02, 2025 Team Status: Active Member Role Status Dates Dr. Avani Eduardo MD Primary Care Provider Active Team Status: Inactive Member Role Status Dates Dr. Avani Eduardo MD Primary Care Provider Active Start: January 03, 2025 End: January 03, 2025 Dr. Avani MACIEL MD Attending Provider Active Start: January 03, 2025 End: January 03, 2025 Team Status: Inactive Member Role Status Dates Dr. Avani Eduardo MD Primary Care Provider Active Start: January 05, 2025 End: January 05, 2025 Dr. Avani MACIEL MD Attending Provider Active Start: January 05, 2025 End: January 05, 2025 Team Status: Inactive Member Role Status Dates Dr. Avani Eduardo MD Primary Care Provider Active Start: January 31, 2025 End: January 31, 2025 Dr. Avani Eduardo MD Referring Provider Active Start: January 31, 2025 End: January 31, 2025 [facility] Attending Provider Active Star t: January 31, 2025 End: January 31, 2025 Team Status: Active Member Role Status Dates Dr. Avani Eduardo MD Primary Care Provider Active Start: February 01, 2025 Dr. Avani MACIEL MD Attending Provider Active Start: February 01, 2025 Team Status: Inactive Member Role Status Dates Dr. Avani Eduardo MD Primary Care Provider Active Start: February 13, 2025 End: February 13, 2025 [facility] Attending Provider Active Star t: February 13, 2025 End: February 13, 2025 [facility] Referring Provider Active Star t: February 13, 2025 End: February 13, 2025 Team Status: Active Member Role Status Dates Dr. Avani Eduardo MD Primary Care Provider Active Start: February 13, 2025 Dr. Eris Capps MD Attending Provider Active S tart: February 13, 2025 Goals (unrecognized section and content) Goals may be documented in a n alternate sectionGoals may be documented in an alternate sectionGoals may be documented in an alternate sectionGoals may be documented in an alternate sectionGoals may be documented in an alternate sectionGoals may be documented in an alternate sectionGoals may be documented in an alternate sectionGoals may be documented in an alternate sectionGoals may be documented in an alternate sectionGoals may be documented in an alternate sectionGoals may be documented in an alternate sectionGoals may be documented in an alternate sectionGoals may be documented in an alternate sectionGoals may be documented in an alternate sectionGoals may be documented in an alternate sectionGoals may be documented in an alternate section FOR RECORDS PERTAINING TO PATIENTS WHO ARE [...] BE BASED ON THE PRIMARY CLINICAL RECORDS. [employer] [facility]. provides no warranty or guarantee of the accuracy or completeness of information in this document.
== END ==
LOC: OLS.SW 06:05
PROVIDERS: PCP Internal Medicine; Visit Provider Internal Medicine
DX: E03.9 Hypothyroidism, unspecified (principal); Z79.899 Other long term (current) drug therapy
CPT/HCPCS: 36415; 84443

== ENCOUNTER → 2025-05-08 | Outpatient (REF) | payer MEDICARE, MEDICAID, SELFPAY ==
--- OUTSIDE RECORDS SUMMARY | 2025-05-08 03:36 | XMS RPT_ITS | CCD ---
Author Organization [facility] Care Team Providers Care Manager Plan Name Role Phone MEG JOE Unavailable Unavailable MEG JOE Unavailable Unavailable [facility] Unavailable Unavailable Maddie Cantor Primary Care Provider Maddie Cantor Primary Care Provider NILS MARIE Attending Unavailable MADDIE CANTOR Primary Care Unavailable MADELIN FERGUSON Attending Unavailable MADDIE CANTOR Referring Unavailable MADDIE CANTOR Primary Care Unavailable MATEO BENTON Attending Unavailable MATEO BENTON Referring Unavailable MADDIE CANTOR Primary Care Unavailable Maddie Cantor Primary Care Provider Dr. Maddie Scott Primary Care Provider U Dr. Hilario Conrad Emergency Provider Dr. Carrie Hooper Admit Provider Dr. Carrie Hooper Attending Provider [phone] Dr. Carrie Hooper Other Provider Dr. Chino Cannon Attending Provider Unavailable Dr. Chino Cannon Other Provider Unavailable MADDIE CANTOR Primary Care Unavailable LORENE ORTIZ Attending Unavailable HILARIO MALIK Referring Unavailab KERON Christensen Admitting Unavailable MICHELINE HUBER Consulting Unavailable NILS CANTOR Primary Care Provider [phone] Dr. Kary Recio Admit Provider Dr. Kary Recio Other Provider Dr. Nina Wilder Attending Provider [phone] Wilder, Dr. Nina Other Provider Dr. Kary Recio Attending Provider STANTON ANDREWS Attending Unavailable STANTON ANDREWS Attending Unavailable STANTON ANDREWS Attending Unavailable STANTON ANDREWS Attending Unavailable Town Doctor, Out of Primary Care Provider Papa Eduardo MD, Dr. Varma Attending Provider Unavailsherie Eduardo MD, Dr. Varma Primary Care Provider Unava Kourtney Kang Attending Provider Jayce MUNOZ, Dr. Varma Referring Provider Unavailsherie Eduardo MD, Dr. Varma Primary Care Provider Surjit Eduardo MD, Dr. Varma Attending Provider UnavailKourtney Antonio Referring Provider Génesis MUNOZ, Dr. Schulte Attending Provider Gudla, Avani Referring Unavailable Gudla, Avani Primary Care Unavailable Kourtney Farrar Attending Unavailable Gudla, Avani Primary Care Unavailable Gudla, Avani Referring Unavailable FarrarKourtney calvo Attending Unavailable Gudla, Avani Primary Care Unavailable Eris Capps Attending Unavailable Farrar, Kourtney Referring Unavailable Gudla, Avani Primary Care Unavailable Gudla Noemi MACIELyothi Attending Unavailable Town Doctor, Out of Primary Care Unavailable Gudla OLSNoemiAvani Attending Unavailable Gudla, Avani Primary Care Unavailable Gudla Noemi MACIELyothi Attending Unavailable Gudla, Avani Primary Care Unavailable Gudla Noemi MACIELyothi Attending Unavailable Gudla, Avani Primary Care Unavailable Gudla OLS Avani Attending Unavailable Gudla, Avani Primary Care Unavailable Gudla OLS Avani Attending Unavailable Gudla, Avani Primary Care Unavailable Gudla OLS Avani Attending Unavailable Gudla, Avani Primary Care Unavailable Gudla OLS, Avani Attending Unavailable Gudla, Avani Primary Care Unavailable Gudla OLS, Avani Attending Unavailable Town Doctor, Out of Primary Care Unavailable Gudla OLSNoemiAvani Attending Unavailable Gudla, Avani Primary Care Unavailable Gudla Noemi MACIELyothi Attending Unavailable Gudla OLS Avani Attending Unavailable Gudla, Avani Primary Care Unavailable Avani Eduardo Primary Care Unavailable Kourtney Farrar Referring Unavailable Kourtney Farrar Attending Unavailable [facility] Doctor, Out of Primary Care Unavailable Avani Subramanian Attending Unavailable [facility] Doctor, Out of Primary Care Unavailable Avani Subramanian Attending Unavailable [facility] Doctor, Out of Primary Care Unavailable Avani Subramanian Attending Unavailable Allergies Allergy Classification Reported Allergen(s) Allergy Type Date of Onset Reaction(s) Facility (20 sources) nickel; Translations: [NICKEL] Drug Allergy 3 Rash [facility] Repository (20 sources) OXcarbazepine; Translations: [OXCARBAZEPINE] Drug Allergy 5 cant remember rxn [facility] Repository (10 sources) salicylic acid; Translations: [SALICYLATES] Drug Allergy 5 [facility] (20 sources) Aspirin Drug Allergy 2 cant remember rx[facility] (1 source) Aspirin Drug Allergy 5 [facility] Medications Current Medications Medication Drug [...] by mouth once daily at lunch Vitamins A,C,V-Vsvg-Tenysl (Eye Multivitamin) 2,148 mcg-113 mg-45 mg-17.4mg Tablet Active 1 TABLET PO DAILY January 04, 2023 12:00am administer with LUNCH atorvastatin 40 mg oral tablet (20 sources) HMG-CoA Reductase Inhibitor Start: 10-29-2015 take 1 tablet by mouth at bedtime Atorvastatin 40 MG tablet Active 40 mg PO AT BEDTIME December 07, 2016 1:00am Comment on above: Take 1 tablet by [facility] once daily. bethanechol chloride 25 mg oral tablet (12 sources) Cholinergic Muscarinic Agonist Start: 03-17-2019 take 25 mg by mouth three times daily Bethanechol Chloride Active 25 MG PO THREE TIMES A DAY March 17, 2019 12:00am Comment on above: Take 25 mg by mouth three times daily. bismuth subsalicylate 17.5 mg/ml oral suspension (5 sources) Bismuth Start: 07-15-2020 Bismuth Subsalicylate (Cushman Bismuth) 262 mg/15 mL suspension Active 524 [...] Comment on above: Take 1 tablet by [facility] once daily. cephalexin 500 mg oral tablet (1 source) Cephalosporin Antibacterial Start: take 500 mg by mouth twice daily Cephalexin Active 500 MG PO TWICE A DAY January 04, 2023 12:00am cholecalciferol 0.05 mg oral capsule (20 sources) Vitamin D Start: 019 take 1 capsule by mouth once daily Cholecalciferol (Vitamin D3) 2,000 UNIT capsule Active 2000 U PO DAILY July 11, 2019 12:00am Start: 07-11-2019 take 2000 [IU] by mo uth at bedtime Cholecalciferol (Vitamin D3) Active 2000 [...] 20 g PO THREE TIMES A DAY 3000 January 18, 2023 12:00am titrate until patient is [...] on above: Take 2 tablets by mo [facility] twice daily. 2 TABLETS (1,500MG) BY MOUTH [...] 2024 11:38am take 1 tablet by heather th once daily before breakfast levothyroxine (SYNTHROID) 75 [...] by mouth once daily. polyethylene glycol 3350 17334 mg powder for oral solution (5 sources) [...] 2023 5:12pm take 1 capsule by mo [facility] three times daily Pregabalin (LYRICA) 200 mg [...] tablet by heather three times daily. sennosides, long term 8.6 mg oral capsule (5 sources) Start: 07-15-20 take 1 capsule by mouth once daily Sennosides (Senna) 8.6 mg capsule Active 8.6 MG PO DAILY July 15, 2020 12:00am spironolactone 25 mg oral tablet (20 sources) Aldosterone Antagonist Start: 07-15-20 take 1 tablet by mouth every other [...] on above: Take 2 tablets by mo [facility] three times daily. Take 20 mL by mouth three times daily. 24 hr venlafaxine 150 mg extended release oral capsule (20 sources) Serotonin and Norepinephrine Reuptake Inhibitor Start: 07-11-20 End: 07-15-20 take 1 capsule by mouth once daily Venlafaxine 150 mg capsule,extended release 24hr Active 150 mg PO DAILY July 15, 2020 2:04pm Comment on above: Take 1 capsule by mo [facility] once daily. Take Effexor XR 150 mg [...] on above: Take 400 Units by mo [facility] every other day. Once capsule by mouth [...] 2017 12:00am take 2 tablets by mo [facility] twice daily acetaminophen 650 mg CR tablet Take 1,300 mg by mouth twice daily. 0 Active Comment on above: Take 1,300 mg by [facility] twice daily. acetaminophen 325 mg / HYDROcodone [...] 17, 2019 1:16pm omega-3 acid ethyl esters (long term) 1000 mg oral capsule (15 sources) Start: 01-10-2023 End: 11-01-2024 Brandon 8-Bqw-Zrj-Fish Oil 1,0 00 mg (120 mg-180 mg) Capsule Discontinued 1 NMA PO TWICE A DAY January 10, 2023 12:00am November 01, 2024 11:35am Start: 01-10-2023 take 1 capsule by [facility] twice daily Brandon 8-Ioh-Vkz-Fish Oil Active 1 CAP PO TWICE A DAY January 10, 2023 12:00am Brandon-3 Fatty Acids-Fish Oil (18 sources) Start: 07-11-2019 End: 07-15-2020 take 2 capsules by mouth twice daily Brandon-3 Fatty Acids-Fish Oil Discontinued 2 CAP PO TWICE A DAY July 10, 2019 11:00pm July 15, 2020 1:09pm Start: 07-11-2019 End: 07-15-2020 take 2 capsules by mouth twice daily Brandon-3 Fatty Acids-Fish Oil Discontinued 2 CAP PO TWICE A DAY July 11, 2019 12:00am July 15, 2020 2:09pm Brandon-3 Fatty Acids-Fish Oil 1 EACH capsule (2 sources) Start: 07-11-2019 End: 07-15-2020 Brandon-3 Fatty Acids-Fish Oil 1 EACH capsule Discontinued 2 NMA PO TWICE A DAY July 11, 2019 12:00am July 15, 2020 2:09pm Vapre-1-MYQ-EPA-F yahaira Oil (FISH OIL) 1,000 mg (120 mg-180 mg) cap (5 sources) take 1 capsule by mouth twice daily Rfacl-3-JZU-EPA-Fis h Oil (FISH OIL) 1,000 mg (120 mg-180 mg) cap Take one capsule by mouth twice daily. 0 Active Comment on above: Take one capsule by mouth twice daily. 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, [address] Basic Metabolic Profile (BMP )on 04-24-2025 BUN/CRE 20.2 RATIO High 10-20 [facility] Comment on above: Order Comment: 304.2 Performed By: #### L 501.5200, L500.2500 #### [facility] [address] [place], [address] Calcium [Mass/Vol] 9.1 mg/dL Normal 7.6-11.0 [facility] Comment on above: Order Comment: 304.2 Performed By: #### L 501.5200, L500.2500 #### [facility] [address] [place], [address] Chloride [Moles/Vol] 96 mmol/L Low 98-108 [facility] Comment on above: Order Comment: 304.2 Performed By: #### L 501.5200, L500.2500 #### [facility] [address] [place], [address] CO2 [Moles/Vol] 29.3 mmol/L Normal 21.0-32.0 [facility] Comment on above: Order Comment: 304.2 Performed By: #### L 501.5200, L500.2500 #### [facility] [address] [place], [address] Creatinine [Mass/Vol] 0.76 mg/dL Normal 0.70-1.20 [facility] Comment on above: Order Comment: 304.2 Performed By: #### L 501.5200, L500.2500 #### [facility] [address] [place], [address] GAP 12 Normal 5-15 [facility] Comment on above: Order Comment: 304.2 Performed By: #### L 501.5200, L500.2500 #### [facility] [address] [place], [address] GFR/1.73 sq M.predicted among non-blacks MDRD (S/P/Bld) [Vol rate/Area] 94 mL/min/{1.73_m2} Normal >60 [facility] Comment on above: Order Comment: 304.2 Result Comment: mL/m in/1.73m2 CKD-EPI Creatinine Equation (2020) Performed By: #### L 501.5200, L500.2500 #### [facility] [address] [place], [address] Glucose [Mass/Vol] 147 mg/dL High 70-99 [facility] Comment on above: Order Comment: 304.2 Performed By: #### L 501.5200, L500.2500 #### [facility] [address] [place], [address] Potassium [Moles/Vol] 3.8 mmol/L Normal 3.3-5.1 [facility] Comment on above: Order Comment: 304.2 Performed By: #### L 501.5200, L500.2500 #### [facility] [address] [place], [address] Sodium [Moles/Vol] 138 mmol/L Normal 133-145 [facility] Comment on above: Order Comment: 304.2 Performed By: #### L 501.5200, L500.2500 #### [facility] [address] [place], [address] Urea nitrogen [Mass/Vol] 15 mg/dL Normal 4-19 [facility] Comment on above: Order Comment: 304.2 Performed By: #### L 501.5200, L500.2500 #### [facility] [address] [place], [address] Magnesiumon 04-24-2025 Magnesium [Mass/Vol] 2.3 mg/dL High 1.5-2.2 [facility] Comment on above: Order Comment: 304.2 Performed By: #### L 501.5200, L500.2500 #### [facility] [address] [place], [address] Basic Metabolic Profile (BMP )on 04-03-2025 BUN/CRE 14.2 RATIO Normal 10-20 [facility] Comment on above: Order Comment: 304.2 Performed By: #### L 501.8100 #### [facility] [address] [place], [address] Calcium [Mass/Vol] 9.8 mg/dL Normal 7.6-11.0 [facility] Comment on above: Order Comment: 304.2 Performed By: #### L 501.8100 #### [facility] [address] [place], [address] Chloride [Moles/Vol] 96 mmol/L Low 98-108 [facility] Comment on above: Order Comment: 304.2 Performed By: #### L 501.8100 #### [facility] [address] [place], [address] CO2 [Moles/Vol] 24.9 mmol/L Normal 21.0-32.0 [facility] Comment on above: Order Comment: 304.2 Performed By: #### L 501.8100 #### [facility] [address] [place], [address] Creatinine [Mass/Vol] 0.84 mg/dL Normal 0.70-1.20 [facility] Comment on above: Order Comment: 304.2 Performed By: #### L 501.8100 #### [facility] [address] [place], [address] GAP 17 High 5-15 [facility] Comment on above: Order Comment: 304.2 Performed By: #### L 501.8100 #### [facility] [address] [place], [address] GFR/1.73 sq M.predicted among non-blacks MDRD (S/P/Bld) [Vol rate/Area] 91 mL/min/{1.73_m2} Normal >60 [facility] Comment on above: Order Comment: 304.2 Result Comment: mL/m in/1.73m2 CKD-EPI Creatinine Equation (2020) Performed By: #### L 501.8100 #### [facility] [address] [place], [address] Glucose [Mass/Vol] 229 mg/dL High 70-99 [facility] Comment on above: Order Comment: 304.2 Performed By: #### L 501.8100 #### [facility] [address] [place], [address] Potassium [Moles/Vol] 4.2 mmol/L Normal 3.3-5.1 [facility] Comment on above: Order Comment: 304.2 Result Comment: Hemo lysis present, Results??could be affected. ?? Performed By: #### L 501.8100 #### [facility] [address] [place], [address] Sodium [Moles/Vol] 137 mmol/L Normal 133-145 [facility] Comment on above: Order Comment: 304.2 Performed By: #### L 501.8100 #### [facility] [address] [place], [address] Urea nitrogen [Mass/Vol] 12 mg/dL Normal 4-19 [facility] Comment on above: Order Comment: 304.2 Performed By: #### L 501.8100 #### [facility] [address] [place], [address] CBC-Complete Blood Cnt No Lynnette ffon 04-03-2025 Erythrocyte distribution width (RBC) [Ratio] 13.8 % Normal 11.6-14.6 [facility] Comment on above: Order Comment: 304.2 Performed By: #### L 501.8100 #### [facility] [address] [place], [address] Hematocrit (Bld) [Volume fraction] 44.7 % Normal 40-54 [facility] Comment on above: Order Comment: 304.2 Performed By: #### L 501.8100 #### [facility] [address] [place], [address] Hemoglobin (Bld) [Mass/Vol] 15.1 g/dL Normal 13.0-16.5 [facility] Comment on above: Order Comment: 304.2 Performed By: #### L 501.8100 #### [facility] [address] [place], [address] MCH (RBC) [Entitic mass] 32.4 pg High 27.0-32.0 [facility] Comment on above: Order Comment: 304.2 Performed By: #### L 501.8100 #### [facility] [address] [place], [address] MCHC (RBC) [Mass/Vol] 33.8 g/dL Normal 32-36 [facility] Comment on above: Order Comment: 304.2 Performed By: #### L 501.8100 #### [facility] [address] [place], [address] MCV (RBC) [Entitic vol] 95.9 fL High 80-94 [facility] Comment on above: Order Comment: 304.2 Performed By: #### L 501.8100 #### [facility] [address] [place], [address] Platelet mean volume (Bld) [Entitic vol] 9.5 fL Normal 6.2-12.0 [facility] Comment on above: Order Comment: 304.2 Performed By: #### L 501.8100 #### [facility] [address] [place], [address] Platelets (Bld) [#/Vol] 252 10*3/uL Normal 150-450 [facility] Comment on above: Order Comment: 304.2 Performed By: #### L 501.8100 #### [facility] [address] [place], [address] RBC (Bld) [#/Vol] 4.66 10*6/uL Normal 4.6-6.2 [facility] Comment on above: Order Comment: 304.2 Performed By: #### L 501.8100 #### [facility] [address] [place], [address] RDW SD 49.1 fl High 35.1-43.9 [facility] Comment on above: Order Comment: 304.2 Performed By: #### L 501.8100 #### [facility] [address] [place], [address] WBC (Bld) [#/Vol] 7.2 10*3/uL Normal 4.4-11.0 [facility] Comment on above: Order Comment: 304.2 Performed By: #### L 501.8100 #### [facility] [address] [place], [address] Magnesiumon 04-03-2025 Magnesium [Mass/Vol] 2.3 mg/dL High 1.5-2.2 [facility] Comment on above: Order Comment: 304.2 Performed By: #### L 501.8100 #### [facility] [address] [place], [address] Thyroid Stim Hormone (TSH)on 02-28-2025 TSH 4.330 uIU/mL High 0.300-4.20 0 [facility] Comment on above: Order Comment: 304.2 Performed By: #### L 501.8100 #### [facility] [address] [place], [address] Arterial study reportOrdered By: Eris Capps on 02-13-2025 Noninvasive arteriosclerosis study report [facility] [address] [place] [address] Lower Ext Art Exam w/o Exercis 02/13/25 0911 MR#: [id number] Acct: [id number] Name: ANJEL ROSS Rep #:[id number] : 1950 74 From: Eris Zepeda Attending Dr: PIO House Stat us: REG CLI Ordering Dr: Kourtney Farrar Date: Location: [facility] Sex: M C Admitted: Reason For Study [...] Physician: Avani Eduardo Performed By: Micheline Busby Sonja 02/13/251056 Date _ Eris Capps MD CC: PIO House; Avani Eduardo MD ~ Date Dictated: 02/13/25910 Date Transcribed: 02/13/251056 Transitional Nurse: Signed [facility] Work Phone: Lower Ext Art Exam w/o Exerc jerry 02-13-2025 Lower Ext Art Exam w/o Exercis [facility] [address] [place] [address] Lower Ext Art Exam w/o Exercis 02/13/25910 MR#: [id number] Acct: [id number] Name: ANJEL ROSS Rep #: [id number] : 1950 74 From: Eris Capps MD Attending Dr: PIO House Status: REG CLI Ordering Dr: Kourtney Farrar Date: 02/13/25 Location: [facility] Sex: M C Admitted: Reason For Study [...] By: Micheline Busby RVT 02/13/25 1057 Date Eris Capps MD CC: [facility]; Avani Eduardo MD Date Dictated: 02/13/25910 Date Transcribed: 02/13/251056 Transitional Nurse: Signed Normal [facility] Anion gap in Serum or Plasma Ordered By: Avani Eduardo on 02-01-2025 Anion gap [Moles/Vol] 13 mmol/L - [facility] BUN/creatinine ratioOrdered By: Avani Eduardo on 02-01-2025 Urea nitrogen/Creatinine [Mass ratio] 16.2 mg/mg - [facility] Basic Metabolic Profile (BMP )on 02-01-2025 BUN/CRE 16.2 RATIO Normal 07-23 [facility] Comment on above: Order Comment: 304-2 Performed By: #### L 500.2500, L501.5200, L501.9520 #### [facility] [address] [place], [address] Calcium [Mass/Vol] 8.4 mg/dL Normal 7.6-11.0 [facility] Comment on above: Order Comment: 304-2 Performed By: #### L 500.2500, L501.5200, L501.9520 #### [facility] [address] [place], [address] Chloride [Moles/Vol] 98 mmol/L Normal 98-108 [facility] Comment on above: Order Comment: 304-2 Performed By: #### L 500.2500, L501.5200, L501.9520 #### [facility] [address] [place], [address] CO2 [Moles/Vol] 25.5 mmol/L Normal 21.0-32.0 [facility] Comment on above: Order Comment: 304-2 Performed By: #### L 500.2500, L501.5200, L501.9520 #### [facility] [address] [place], [address] Creatinine [Mass/Vol] 0.64 mg/dL Low 0.70-1.20 [facility] Comment on above: Order Comment: 304-2 Performed By: #### L 500.2500, L501.5200, L501.9520 #### [facility] [address] [place], [address] GAP 13 Normal 5-15 [facility] Comment on above: Order Comment: 304-2 Performed By: #### L 500.2500, L501.5200, L501.9520 #### [facility] [address] [place], [address] GFR/1.73 sq M.predicted among non-blacks MDRD (S/P/Bld) [Vol rate/Area] 99 mL/min/{1.73_m2} Normal >60 [facility] Comment on above: Order Comment: 304-2 Result Comment: mL/m in/1.73m2 CKD-EPI Creatinine Equation (2020) Performed By: #### L 500.2500, L501.5200, L501.9520 #### [facility] [address] [place], [address] Glucose [Mass/Vol] 203 mg/dL High 70-99 [facility] Comment on above: Order Comment: 304-2 Performed By: #### L 500.2500, L501.5200, L501.9520 #### [facility] [address] [place], [address] Potassium [Moles/Vol] 3.5 mmol/L Normal 3.3-5.1 [facility] Comment on above: Order Comment: 304-2 Performed By: #### L 500.2500, L501.5200, L501.9520 #### [facility] [address] [place], [address] Sodium [Moles/Vol] 136 mmol/L Normal 133-145 [facility] Comment on above: Order Comment: 304-2 Performed By: #### L 500.2500, L501.5200, L501.9520 #### [facility] [address] [place], [address] Urea nitrogen [Mass/Vol] 10 mg/dL Normal 4-19 [facility] Comment on above: Order Comment: 304-2 Performed By: #### L 500.2500, L501.5200, L501.9520 #### [facility] [address] [place], [address] CBC-Complete Blood Cnt No Di ffon 02-01-2025 Erythrocyte distribution width (RBC) [Ratio] 13.2 % Normal 11.6-14.6 [facility] Comment on above: Order Comment: 304-2 Performed By: #### L 500.2500, L501.5200, L501.9520 #### [facility] [address] [place], [address] Hematocrit (Bld) [Volume fraction] 36.0 % Low 40-54 [facility] Comment on above: Order Comment: 304-2 Performed By: #### L 500.2500, L501.5200, L501.9520 #### [facility] [address] [place], [address] Hemoglobin (Bld) [Mass/Vol] 12.7 g/dL Low 13.0-16.5 [facility] Comment on above: Order Comment: 304-2 Performed By: #### L 500.2500, L501.5200, L501.9520 #### [facility] [address] [place], [address] MCH (RBC) [Entitic mass] 32.6 pg High 27.0-32.0 [facility] Comment on above: Order Comment: 304-2 Performed By: #### L 500.2500, L501.5200, L501.9520 #### [facility] [address] [place], [address] MCHC (RBC) [Mass/Vol] 35.3 g/dL Normal 32-36 [facility] Comment on above: Order Comment: 304-2 Performed By: #### L 500.2500, L501.5200, L501.9520 #### [facility] [address] [place], [address] MCV (RBC) [Entitic vol] 92.3 fL Normal 80-94 [facility] Comment on above: Order Comment: 304-2 Performed By: #### L 500.2500, L501.5200, L501.9520 #### [facility] [address] [place], [address] Platelet mean volume (Bld) [Entitic vol] 8.9 fL Normal 6.2-12.0 [facility] Comment on above: Order Comment: 304-2 Performed By: #### L 500.2500, L501.5200, L501.9520 #### [facility] [address] [place], [address] Platelets (Bld) [#/Vol] 158 10*3/uL Normal 150-450 [facility] Comment on above: Order Comment: 304-2 Performed By: #### L 500.2500, L501.5200, L501.9520 #### [facility] [address] [place], [address] RBC (Bld) [#/Vol] 3.90 10*6/uL Low 4.6-6.2 [facility] Comment on above: Order Comment: 304-2 Performed By: #### L 500.2500, L501.5200, L501.9520 #### [facility] Laboratory [address] [place], [address] RDW SD 44.3 fl High 35.1-43.9 [facility] Comment on above: Order Comment: 304-2 Performed By: #### L 500.2500, L501.5200, L501.9520 #### [facility] [address] [place], [address] WBC (Bld) [#/Vol] 6.1 10*3/uL Normal 4.4-11.0 [facility] Comment on above: Order Comment: 304-2 Performed By: #### L 500.2500, L501.5200, L501.9520 #### [facility] [address] [place], [address] Carbon dioxide, total [Moles /volume] in Central venous bloodOrdered By: Avani Eduardo on 02-01-2025 CO2 [Moles/Vol] 25.5 mmol/L 21.0-32.0 [facility] Chloride assayOrdered By: Adriel Eduardo on 02-01-2025 Chloride [Moles/Vol] 98 mmol/L 98-108 [facility] Erythrocyte distribution wid th ratioOrdered By: Avani Eduardo on 02-01-2025 Erythrocyte distribution width (RBC) [Ratio] 13.2 % 11.6-14.6 [facility] Erythrocyte distribution wid th standard deviationOrdered By: Avani Eduardo on 02-01-2025 Erythrocyte distribution width (RBC) [Ratio] 44.3 fl High 35.1-43.9 [facility] Glomerular filtration rate ( GFR) estimation/1.73 sq m using serum, plasma, or whole bOrdered By: Avani Eduardo on 02-01-2025 GFR/1.73 sq M.predicted among non-blacks MDRD (S/P/Bld) [Vol rate/Area] 99 mL/min/{1.73_m2} >60 [facility] Comment on above: mL/min/1.73m2 CKD-EP I Creatinine Equation (2020) Hematocrit Auto (Bld) [Volum e fraction]Ordered By: Avani Eduardo on 02-01-2025 Hematocrit (Bld) [Volume fraction] 36.0 % Low 40-54 [facility] Hemoglobin measurementOrdere d By: Avani Eduardo on 02-01-2025 Hemoglobin (Bld) [Mass/Vol] 12.7 g/dL Low 13.0-16.5 [facility] MCV (mean corpuscular volume ) determinationOrdered By: Avani Eduardo on 02-01-2025 MCV (RBC) [Entitic vol] 92.3 fL 80-94 [facility] Magnesiumon 02-01-2025 Magnesium [Mass/Vol] 2.2 mg/dL Normal 1.5-2.2 [facility] Comment on above: Order Comment: 304-2 Performed By: #### L 500.2500, L501.5200, L501.9520 #### [facility] [address] [place], [address] Magnesium measurement (mass/ volume)Ordered By: Avani Eduardo on 02-01-2025 Magnesium (Unsp spec) [Mass/Vol] 2.2 mg/dL 1.5-2.2 [facility] Mean corpuscular hemoglobin (MCH) determinationOrdered By: Avani Eduardo on 02-01-2025 MCH (RBC) [Entitic mass] 32.6 pg High 27.0-32.0 [facility] Mean corpuscular hemoglobin concentration (MCHC) determinationOrdered By: Avani Eduardo on 02-01-2025 MCHC (RBC) [Mass/Vol] 35.3 g/dL 32-36 [facility] Mean platelet volume determi nationOrdered By: Avani Eduardo on 02-01-2025 Platelet mean volume (Bld) [Entitic vol] 8.9 fL 6.2-12.0 [facility] Platelet countOrdered By: Adriel Eduardo on 02-01-2025 Platelets (Bld) [#/Vol] 158 10*3/uL 150-450 [facility] Potassium measurement (mass/ volume)Ordered By: Avani Eduardo on 02-01-2025 Potassium (Unsp spec) [Mass/Vol] 3.5 mmol/L 3.3-5.1 [facility] RBC Auto (Bld) [#/Vol]Ordere d By: Avani Eduardo on 02-01-2025 RBC (Bld) [#/Vol] 3.90 10*6/uL Low 4.6-6.2 [facility] Serum creatinine measurement (mass/volume)Ordered By: Avani Eduardo on 02-01-2025 Creatinine [Mass/Vol] 0.64 mg/dL Low 0.70-1.20 [facility] Serum glucose measurement (m ass/volume)Ordered By: Avani Eduardo on 02-01-2025 Glucose [Mass/Vol] 203 mg/dL High 70-99 [facility] Serum or plasma calcium minda urement (mass/volume)Ordered By: Avani Eduardo on 02-01-2025 Calcium [Mass/Vol] 8.4 mg/dL 7.6-11.0 [facility] Serum or plasma urea nitroge n measurement (mass/volume)Ordered By: Avani Eduardo on 02-01-2025 Urea nitrogen [Mass/Vol] 10 mg/dL 4-19 [facility] Sodium levelOrdered By: Emmanuel Eduardo on 02-01-2025 Sodium [Moles/Vol] 136 mmol/L 133-145 [facility] White blood cell (WBC) count Ordered By: Avani Eduardo on 02-01-2025 WBC (Bld) [#/Vol] 6.1 10*3/uL 4.4-11.0 [facility] MR/BMSDontae 01-31-2025 MR/BMS.DENIA [facility] Vascular Surgery [address] [place] [address] OFFICE VISIT Date of Service: 01/31/25 MR#: [id number] Acct: [id number] Name: JESSICAANJEL Rae Rep #: [id number] 2 : 1950 Provider: [facility] Age/Sex: 74/M Location: [facility] Status: Signed Intake Vital Signs 01/15/23 11:23 [...] bilateral lower extremity arterial duplex performed at [facility] reporting atherosclerotic (more content not included)... Normal [facility] Hemoglobin A1con 01-05-2025 HbA1c (Bld) [Mass fraction] 8.1 % Normal <=5.6 [facility] Comment on above: Order Comment: 304-2 Performed By: #### L 501.9985 #### [facility] [address] [place], [place], [id number] Hemoglobin A1c percentageOrd ered By: Avani Eduardo on 01-05-2025 HbA1c (Bld) [Mass fraction] 8.1 % >5.7 [facility] Serum or plasma valproate me asurement (mass/volume)Ordered By: Avani Eduardo on 01-03-2025 Valproate [Mass/Vol] 56 ug/mL 50-100 [facility] Comment on above: Valproic Acid concen trations >100 ug/mL are potentially toxic. Valproic Acid (Depakene) Lev chandu 01-03-2025 VALPROIC ACID 56 ug/mL Normal 50-100 [facility] Comment on above: Order Comment: 304.2 Result Comment: Valp roic Acid concentrations >100 ug/mL are potentially toxic. Performed By: #### L 501.8100 #### [facility] [address] [place], [place], [address] Anion gap in Serum or Plasma Ordered By: Avani Eduardo on 01-02-2025 Anion gap [Moles/Vol] 17 mmol/L High 5-15 [facility] Automated blood erythrocyte countOrdered By: Avani Eduardo on 01-02-2025 RBC (Bld) [#/Vol] 4.61 10*6/uL Normal 4.6-6.2 [facility] Comment on above: Order Comment: 304.2 Performed By: #### L 501.8100 #### [facility] [address] [place], [address] Automated blood hematocrit ( percentage)Ordered By: Avani Eduardo on 01-02-2025 Hematocrit (Bld) [Volume fraction] 42.7 % Normal 40-54 [facility] Comment on above: Order Comment: 304.2 Performed By: #### L 501.8100 #### [facility] [address] [place], [address] BUN/creatinine ratioOrdered By: Avani Eduardo on 01-02-2025 Urea nitrogen/Creatinine [Mass ratio] 15.2 mg/mg 10-20 [facility] Basic Metabolic Profile (BMP )on 01-02-2025 BUN/CRE 15.2 RATIO Normal 10-20 [facility] Comment on above: Order Comment: 304-2 Performed By: #### L 500.2500, L501.5200, L501.9520 #### [facility] [address] [place], [address] GAP 17 High 5-15 [facility] Comment on above: Order Comment: 304-2 Performed By: #### L 500.2500, L501.5200, L501.9520 #### [facility] [address] [place], [address] CBC-Complete Blood Cnt No Di ffon 01-02-2025 RDW SD 46.2 fl High 35.1-43.9 [facility] Comment on above: Order Comment: 304.2 Performed By: #### L 501.8100 #### [facility] [address] [place], [address] Carbon dioxide, total [Moles /volume] in Central venous bloodOrdered By: Avani Eduardo on 01-02-2025 CO2 [Moles/Vol] 23.4 mmol/L Normal 21.0-32.0 [facility] Comment on above: Order Comment: 304-2 Performed By: #### L 500.2500, L501.5200, L501.9520 #### [facility] [address] [place], [address] Chloride assayOrdered By: Adriel Eduardo on 01-02-2025 Chloride [Moles/Vol] 97 mmol/L Low 98-108 [facility] Comment on above: Order Comment: 304-2 Performed By: #### L 500.2500, L501.5200, L501.9520 #### [facility] [address] [place], [address] Erythrocyte distribution wid th ratioOrdered By: Avani Eduardo on 01-02-2025 Erythrocyte distribution width (RBC) [Ratio] 13.6 % Normal 11.6-14.6 [facility] Comment on above: Order Comment: 304.2 Performed By: #### L 501.8100 #### [facility] [address] [place], [address] Erythrocyte distribution wid th standard deviationOrdered By: Avani Eduardo on 01-02-2025 Erythrocyte distribution width (RBC) [Entitic vol] 46.2 fL High 35.1-43.9 [facility] Erythrocyte distribution width (RBC) [Ratio] 46.2 fl High 35.1-43.9 [facility] GFR/1.73 sq M.predicted maria elena g non-blacks MDRD (S/P/Bld) [Vol rate/Area]Ordered By: Avani Eduardo on 01-02-2025 Estimated GFR (MDRD) Non-Af Amer 90 >60 [facility] Comment on above: mL/min/1.73m2 CKD-EP I Creatinine Equation (2020) Glomerular filtration rate ( GFR) estimation/1.73 sq m using serum, plasma, or whole bOrdered By: Avani Eduardo on 01-02-2025 GFR/1.73 sq M.predicted among non-blacks MDRD (S/P/Bld) [Vol rate/Area] 90 mL/min/{1.73_m2} Normal >60 [facility] Comment on above: mL/min/1.73m2 CKD-EP I Creatinine Equation (2020) Order Comment: 304-2 Result Comment: mL/m in/1.73m2 CKD-EPI Creatinine Equation (2020) Performed By: #### L 500.2500, L501.5200, L501.9520 #### [facility] [address] [place], [address] Hemoglobin measurementOrdere d By: Avani Eduardo on 01-02-2025 Hemoglobin (Bld) [Mass/Vol] 14.8 g/dL Normal 13.0-16.5 [facility] Comment on above: Order Comment: 304.2 Performed By: #### L 501.8100 #### [facility] [address] [place], [address] MCV (mean corpuscular volume ) determinationOrdered By: Avani Eduardo on 01-02-2025 MCV (RBC) [Entitic vol] 92.6 fL Normal 80-94 [facility] Comment on above: Order Comment: 304.2 Performed By: #### L 501.8100 #### [facility] [address] [place], [address] Magnesium measurement (mass/ volume)Ordered By: Avani Eduardo on 01-02-2025 Magnesium [Mass/Vol] 2.3 mg/dL High 1.5-2.2 [facility] Comment on above: Order Comment: 304.2 Performed By: #### L 501.8100 #### [facility] [address] [place], [address] Magnesium (Unsp spec) [Mass/Vol] 2.3 mg/dL High 1.5-2.2 [facility] Mean corpuscular hemoglobin (MCH) determinationOrdered By: Avani Eduardo on 01-02-2025 MCH (RBC) [Entitic mass] 32.1 pg High 27.0-32.0 [facility] Comment on above: Order Comment: 304.2 Performed By: #### L 501.8100 #### [facility] [address] [place], [address] Mean corpuscular hemoglobin concentration (MCHC) determinationOrdered By: Avani Eduardo on 01-02-2025 MCHC (RBC) [Mass/Vol] 34.7 g/dL Normal 32-36 [facility] Comment on above: Order Comment: 304.2 Performed By: #### L 501.8100 #### [facility] [address] [place], [address] Mean platelet volume determi nationOrdered By: Avani Eduardo on 01-02-2025 Platelet mean volume (Bld) [Entitic vol] 9.1 fL Normal 6.2-12.0 [facility] Comment on above: Order Comment: 304.2 Performed By: #### L 501.8100 #### [facility] [address] [place], [address] Platelet countOrdered By: Adriel Eduardo on 01-02-2025 Platelets (Bld) [#/Vol] 193 10*3/uL Normal 150-450 [facility] Comment on above: Order Comment: 304.2 Performed By: #### L 501.8100 #### [facility] [address] [place], [address] Potassium measurement (mass/ volume)Ordered By: Avani Eduardo on 01-02-2025 Potassium [Moles/Vol] 4.1 mmol/L Normal 3.3-5.1 [facility] Comment on above: Hemolysis present, R esults could be affected. Order Comment: 304-2 Result Comment: Hemo lysis present, Results??could be affected. ?? Performed By: #### L 500.2500, L501.5200, L501.9520 #### [facility] [address] [place], [address] Potassium (Unsp spec) [Mass/Vol] 4.1 mmol/L 3.3-5.1 [facility] Comment on above: Hemolysis present, R esults could be affected. Serum creatinine measurement (mass/volume)Ordered By: Avani Eduardo on 01-02-2025 Creatinine [Mass/Vol] 0.87 mg/dL Normal 0.70-1.20 [facility] Comment on above: Order Comment: 304-2 Performed By: #### L 500.2500, L501.5200, L501.9520 #### [facility] [address] [place], [address] Serum glucose measurement (m ass/volume)Ordered By: Avani Eduardo on 01-02-2025 Glucose [Mass/Vol] 223 mg/dL High 70-99 [facility] Comment on above: Order Comment: 304-2 Performed By: #### L 500.2500, L501.5200, L501.9520 #### [facility] [address] [place], [address] Serum or plasma calcium minda urement (mass/volume)Ordered By: Avani Eduardo on 01-02-2025 Calcium [Mass/Vol] 9.7 mg/dL Normal 7.6-11.0 [facility] Comment on above: Order Comment: 304-2 Performed By: #### L 500.2500, L501.5200, L501.9520 #### [facility] [address] [place], [address] Serum or plasma urea nitroge n measurement (mass/volume)Ordered By: Avani Eduardo on 01-02-2025 Urea nitrogen [Mass/Vol] 13 mg/dL Normal 4-19 [facility] Comment on above: Order Comment: 304-2 Performed By: #### L 500.2500, L501.5200, L501.9520 #### [facility] [address] [place], [address] Sodium levelOrdered By: Emmanuel Eduardo on 04-01-2025 Sodium [Moles/Vol] 138 mmol/L Normal 133-145 [facility] Comment on above: Order Comment: 304-2 Performed By: #### L 500.2500, L501.5200, L501.9520 #### [facility] [address] [place], [place], [id number] White blood cell (WBC) count Ordered By: Avani Eduardo on 01-02-2025 WBC (Bld) [#/Vol] 9.9 10*3/uL Normal 4.4-11.0 [facility] Comment on above: Order Comment: 304.2 Performed By: #### L 501.8100 #### [facility] [address] [place], [place], [address] Calculated very low density lipoprotein (VLDL) cholesterol measurementOrdered By: Avani Eduardo on 12-06-2024 Calculated very low density lipoprotein (VLDL) cholesterol measurement 49 mg/dL High 5-40 [facility] VLDL Cholesterol 49 mg/dL High 5-40 [facility] LDL calc ser/plasOrdered By: Avani Eduardo on 12-06-2024 Cholesterol in LDL [Mass/Vol] 61 mg/dL [facility] Comment on above: Xkzubmjths=460-705 m g/dL & Higher Kddk=286 mg/dL or greater LDL Cholesterol, Calculated 61 mg/dL [facility] Comment on above: Pabqslnlpb=731-573 m g/dL & Higher Gftk=315 mg/dL or greater Lipid Profileon 12-06-2024 CHOL:HDL 4.46 Normal [facility] Comment on above: Order Comment: 304.2 Performed By: #### L 501.8100 #### [facility] [address] [place], [place], [id number] Cholesterol [Mass/Vol] 141 mg/dL Normal <=200 [facility] Comment on above: Order Comment: 304.2 Result Comment: Chol esterol level, Desirable <200 mg/dL Borderline high cholesterol 200-239 mg/dL High cholesterol >=240 mg/dL Recommendations of the NCEP Adult Treatment Panel for the following risk-cutoff thresholds for the [place] population. Performed By: #### L 501.8100 #### [facility] [address] [place], [address] Cholesterol in HDL [Mass/Vol] 32 mg/dL Low [facility] Comment on above: Order Comment: 304.2 Result Comment: Luzmaria onal Cholesterol Education Program (NCEP) guidelines: <40 mg/dL: Low HDL-cholesterol (major risk factor for CHD) >= 60 mg/dL: High HDL-cholesterol (negative risk factor for CHD) HDL-cholesterol is affected by a number of factors, e.g. smoking, exercise, hormones, sex and age. Performed By: #### L 501.8100 #### [facility] [address] [place], [address] Cholesterol in LDL [Mass/Vol] 61 mg/dL Normal [facility] Comment on above: Order Comment: 304.2 Result Comment: Bord cfknpa=230-250 mg/dL Higher Fycr=836 mg/dL or greater Performed By: #### L 501.8100 #### [facility] [address] [place], [address] Cholesterol in VLDL [Mass/Vol] 49 mg/dL High 5-40 [facility] Comment on above: Order Comment: 304.2 Performed By: #### L 501.8100 #### [facility] [address] [place], [address] Triglyceride [Mass/Vol] 244 mg/dL High [facility] Comment on above: Order Comment: 304.2 Result Comment: The drugs N-Acetylcysteine and Metamizole may falsely depress this assay. Normal range: <150 mg/dL Borderline High: 150-199 mg/dL High: 200-499 mg/dL Very High: >500 mg/dL Performed By: #### L 501.8100 #### [facility] [address] [place], [address] Screening total cholesterol/ high density lipoprotein (HDL) cholesterol ratioOrdered By: Avani Eduardo on 12-06-2024 Cholesterol.total/Chol esterol in HDL [Mass ratio] 4.46 {ratio} [facility] Serum or plasma cholesterol in HDL measurement (mass/volume)Ordered By: Avani Eduardo on 12-06-2024 Cholesterol in HDL [Mass/Vol] 32 mg/dL Low >40 [facility] Comment on above: National Cholesterol Education Program (NCEP) guidelines:<40 mg/dL: Low HDL-cholesterol (major risk factor for CHD)>= 60 mg/dL: High HDL-cholesterol (negative risk factor for CHD)HDL-cholesterol is affected by a number of factors, e.g. smoking, exercise, hormones, sex and age. Serum or plasma cholesterol measurement (mass/volume)Ordered By: Avani Eduardo on 12-06-2024 Cholesterol [Mass/Vol] 141 mg/dL <201 [facility] Comment on above: Cholesterol level, D esirable <200 mg/dLBorderline high cholesterol 200-239 mg/dLHigh cholesterol >=240 mg/dLRecommendations of the NCEP Adult Treatment Panel for the following risk-cutoff thresholds for the [place] population. Triglycerides measurementOrd ered By: Avani Eduardo on 12-06-2024 Triglyceride [Mass/Vol] 244 mg/dL High <199 [facility] Comment on above: The drugs N-Acetylcy steine and Metamizole may falsely depress this assay. Normal range: <150 mg/dLBorderline High: 150-199 mg/dLHigh: 200-499 mg/dLVery High: >500 mg/dL MR/Bety 11-01-2024 MR/BMSELMER [facility] Vascular Surgery [address] [place] [address] OFFICE VISIT Date of Service: 11/01/24 MR#: [id number] Acct: [id number] Name: ANJEL ROSS Rep #: [id number] 2 : 1950 Provider: [facility] Age/Sex: 74/M Location: [facility] Status: Signed Intake Vital Signs 01/15/23 11:23 [...] you fallen in the past year?: Yes PFSH Medical History Weakness Hypothyroid Schizophrenia Wears [...] to the office today as referred from [facility]. The only records received from [facility] were a bilateral lower extremity arterial duplex performed at the [facility] (more content not included)... Normal [facility] Basic Metabolic Profile (BMP )on 10-05-2024 BUN/CRE 18.0 RATIO Normal 10-20 [facility] Comment on above: Order Comment: 304-2 Performed By: #### L 500.2500, L501.5200, L501.9520 #### [facility] [address] [place], [address] CA,Total 8.6 mg/dL Normal 8.5-10.1 [facility] Comment on above: Order Comment: 304-2 Performed By: #### L 500.2500, L501.5200, L501.9520 #### [facility] [address] [place], [address] Chloride [Moles/Vol] 102 mmol/L Normal 98-107 [facility] Comment on above: Order Comment: 304-2 Performed By: #### L 500.2500, L501.5200, L501.9520 #### [facility] [address] [place], [address] CO2 [Moles/Vol] 32.0 mmol/L Normal 21.0-32.0 [facility] Comment on above: Order Comment: 304-2 Performed By: #### L 500.2500, L501.5200, L501.9520 #### [facility] [address] [place], [address] Creatinine [Mass/Vol] 0.61 mg/dL Low 0.70-1.30 [facility] Comment on above: Order Comment: 304-2 Result Comment: The validity of the calculated GFR GFRAA in patients over 70 years has not been determined. Clinical correlation is essential. Performed By: #### L 500.2500, L501.5200, L501.9520 #### [facility] [address] [place], [address] EST GFR - AA 166 mL/min Normal >60 [facility] Comment on above: Order Comment: 304-2 Result Comment: Afri can [place]ian GFR Calc Performed By: #### L 500.2500, L501.5200, L501.9520 #### [facility] [address] [place], [address] GAP 6 Normal 5-15 [facility] Comment on above: Order Comment: 304-2 Performed By: #### L 500.2500, L501.5200, L501.9520 #### [facility] [address] [place], [address] GFR/1.73 sq M.predicted among non-blacks MDRD (S/P/Bld) [Vol rate/Area] 137 mL/min/{1.73_m2} Normal >60 [facility] Comment on above: Order Comment: 304-2 Result Comment: Non- GFR Calc Performed By: #### L 500.2500, L501.5200, L501.9520 #### [facility] [address] [place], [address] Glucose [Mass/Vol] 176 mg/dL High 74-106 [facility] Comment on above: Order Comment: 304-2 Result Comment: Fast ing Glucose result greater than or equal to 126 mg/dL suggests DIABETES MELLITUS per A.D.A. criteria. Performed By: #### L 500.2500, L501.5200, L501.9520 #### [facility] [address] [place], [address] Potassium [Moles/Vol] 3.4 mmol/L Low 3.5-5.1 [facility] Comment on above: Order Comment: 304-2 Performed By: #### L 500.2500, L501.5200, L501.9520 #### [facility] [address] [place], [address] Sodium [Moles/Vol] 140 mmol/L Normal 136-145 [facility] Comment on above: Order Comment: 304-2 Performed By: #### L 500.2500, L501.5200, L501.9520 #### [facility] [address] [place], [address] Urea nitrogen [Mass/Vol] 11 mg/dL Normal 7-18 [facility] Comment on above: Order Comment: 304-2 Performed By: #### L 500.2500, L501.5200, L501.9520 #### [facility] [address] [place], [address] Blood urea nitrogen (BUN)/cr eatinine ratioOrdered By: Avani Eduardo on 10-05-2024 Urea nitrogen/Creatinine [Mass ratio] 18.0 mg/mg 10-20 [facility] Carbon dioxide measurementOr dered By: Avani Eduardo on 10-05-2024 CO2 [Moles/Vol] 32.0 mmol/L 21.0-32.0 [facility] Chloride measurementOrdered By: Avani Eduardo on 10-05-2024 Chloride [Moles/Vol] 102 mmol/L 98-107 [facility] Estimated glomerular filtrat ion rate (GFR) AmericanOrdered By: Avani Eduardo on 10-05-2024 Estimated GFR (MDRD) Amer 166 mL/min >60 [facility] Comment on above: GFR Calc Glomerular filtration rate ( GFR) estimationOrdered By: Avani Eduardo on 10-05-2024 Estimated GFR (MDRD) Non-Af Amer 137 mL/min >60 [facility] Comment on above: Non- GFR Calc Glucose measurementOrdered B y: Avani Eduardo on 10-05-2024 Glucose [Mass/Vol] 176 mg/dL High 74-106 [facility] Comment on above: Fasting Glucose resu lt greater than or equal to 126 mg/dL suggests DIABETES MELLITUS per A.D.A. criteria. Magnesiumon 10-05-2024 Magnesium [Mass/Vol] 2.3 mg/dL Normal 1.6-2.6 [facility] Comment on above: Order Comment: 304-2 Performed By: #### L 500.2500, L501.5200, L501.9520 #### [facility] [address] [place], [address] Magnesium measurementOrdered By: Avani Eduardo on 10-05-2024 Magnesium [Mass/Vol] 2.3 mg/dL 1.6-2.6 [facility] Potassium measurementOrdered By: Avani Eduardo on 10-05-2024 Potassium [Moles/Vol] 3.4 mmol/L Low 3.5-5.1 [facility] Serum anion gap measurementO rdered By: Avani Eduardo on 10-05-2024 Anion gap [Moles/Vol] 6 mmol/L 5-15 [facility] Serum or plasma calcium minda urement (mass/volume)Ordered By: Avani Eduardo on 10-05-2024 Calcium [Mass/Vol] 8.6 mg/dL 8.5-10.1 [facility] Serum or plasma creatinine m easurement (mass/volume)Ordered By: Avani Eduardo on 10-05-2024 Creatinine [Mass/Vol] 0.61 mg/dL Low 0.70-1.30 [facility] Comment on above: The validity of the calculated GFR & GFRAA in patients over 70 years has not been determined. Clinical correlation is essential. Serum or plasma urea nitroge n measurement (mass/volume)Ordered By: Avani Eduardo on 10-05-2024 Urea nitrogen [Mass/Vol] 11 mg/dL 7-18 [facility] Sodium levelOrdered By: Emmanuel Eduardo on 10-05-2024 Sodium [Moles/Vol] 140 mmol/L 136-145 [facility] TSH QnOrdered By: Avani smith on 10-05-2024 Thyroid Stimulating Hormone (TSH) 1.740 uIU/mL 0.358-3.74 0 [facility] Thyroid Stim Hormone (TSH)on 10-05-2024 TSH 1.740 uIU/mL Normal 0.358-3.74 0 [facility] Comment on above: Order Comment: 304-2 Performed By: #### L 500.2500, L501.5200, L501.9520 #### [facility] [address] [place], [address] Absolute neutrophil countOrd ered By: Avani Eduardo on 09-29-2024 Neutrophils (Bld) [#/Vol] 3.1 10*3/uL 2.0-7.7 [facility] Automated blood erythrocyte countOrdered By: Avani Eduardo on 09-29-2024 RBC (Bld) [#/Vol] 4.23 10*6/uL Low 4.6-6.2 [facility] Comment on above: Performed By: #### L 100.0100, L501.6710 #### [facility] [address] [place], [address] Automated blood hematocrit ( percentage)Ordered By: Avani Eduardo on 09-29-2024 Hematocrit (Bld) [Volume fraction] 39.4 % Low 40-54 [facility] Comment on above: Performed By: #### L 100.0100, L501.6710 #### [facility] [address] [place], [address] Automated lymphocyte count a s percentage of total leukocytesOrdered By: Avani Eduardo on 09-29-2024 Lymphocytes/100 WBC (Bld) 38.9 % Normal 19-41 [facility] Comment on above: Performed By: #### L 100.0100, L501.6710 #### [facility] [address] [place], [address] Basophil percentageOrdered B y: Avani Eduardo on 12-27-2024 Basophils/100 WBC (Bld) 0.8 % Normal 0-1 [facility] Comment on above: Performed By: #### L 100.0100, L501.6710 #### [facility] [address] [place], [address] C-reactive protein measureme nt by high sensitivity methodOrdered By: Avani Eduardo on 09-29-2024 C-Reactive Protein Extended Range 3.29 mg/L High 0.0-3.0 [facility] Comment on above: C-Reactive Protein ( CRP) provides useful information for thediagnosis, therapy and monitoring of inflammatory processesand associated diseases. For the evaluation of Relative Riskfor Cardiovascular Disease, a High Sensitivity CRP (HSCRP)should be ordered. CBC W/Diff, Automatedon 09-04 Absolute Lymph 2.76 X10 3/uL Normal 0.83-4.51 [facility] Comment on above: Performed By: #### L 100.0100, L5.6710 #### [facility] [address] [place], [address] Absolute Neut 3.1 X10 3/uL Normal 2.0-7.7 [facility] Comment on above: Performed By: #### L 100.0100, L501.6710 #### [facility] [address] [place], [address] IG% 0.600 Normal 0.0-0.9 [facility] Comment on above: Result Comment: IG% - Immature Granulocytes (promyelocytes, myelocytes and metamyelocytes) > 1% indicates that a LEFT SHIFT is Present. Performed By: #### L 100.0100, L501.6710 #### [facility] [address] [place], [address] Nucleated RBC (Bld) [#/Vol] 0 10*3/uL Normal 0-5 [facility] Comment on above: Performed By: #### L 100.0100, L501.6710 #### [facility] [address] [place], [address] RDW SD 45.4 fl High 35.1-43.9 [facility] Comment on above: Performed By: #### L 100.0100, L501.6710 #### [facility] [address] [place], [address] CRPon 09-29-2024 C-REACTIVE PROT 3.29 mg/L High 0.0-3.0 [facility] Comment on above: Result Comment: C-Re active Protein (CRP) provides useful information for the diagnosis, therapy and monitoring of inflammatory processes and associated diseases. For the evaluation of Relative Risk for Cardiovascular Disease, a High Sensitivity CRP (HSCRP) should be ordered. Performed By: #### L 100.0100, L501.6710 #### [facility] [address] [place], [address] Eosinophil percentageOrdered By: Avani Eduardo on 09-29-2024 Eosinophils/100 WBC (Bld) 2.4 % Normal 0-5 [facility] Comment on above: Performed By: #### L 100.0100, L501.6710 #### [facility] [address] [place], [address] Erythrocyte distribution wid th ratioOrdered By: Avani Eduardo on 09-29-2024 Erythrocyte distribution width (RBC) [Ratio] 13.4 % Normal 11.6-14.6 [facility] Comment on above: Performed By: #### L 100.0100, L501.6710 #### [facility] [address] [place], [address] Erythrocyte distribution wid th standard deviationOrdered By: Avani Eduardo on 09-29-2024 Erythrocyte distribution width (RBC) [Entitic vol] 45.4 fL High 35.1-43.9 [facility] Hemoglobin measurementOrdere d By: Avani Eduardo on 09-29-2024 Hemoglobin (Bld) [Mass/Vol] 13.1 g/dL Normal 13.0-16.5 [facility] Comment on above: Performed By: #### L 100.0100, L501.6710 #### [facility] [address] [place], [address] Immature granulocytes/100 WB C Auto (Bld)Ordered By: Avani Eduardo on 09-29-2024 Immature granulocytes/100 WBC (Bld) 0.600 % 0.0-0.9 [facility] Comment on above: IG% - Immature Granu locytes (promyelocytes, myelocytes and metamyelocytes) > 1% indicates that a LEFT SHIFT is Present. Lymphocytes Auto (Unsp spec) [#/Vol]Ordered By: Avani Eduardo on 09-29-2024 Lymphocytes (Bld) [#/Vol] 2.76 10*3/uL 0.83-4.51 [facility] MCV (mean corpuscular volume ) determinationOrdered By: Avani Eduardo on 09-29-2024 MCV (RBC) [Entitic vol] 93.1 fL Normal 80-94 [facility] Comment on above: Performed By: #### L 100.0100, L501.6710 #### [facility] [address] [place], [address] Mean corpuscular hemoglobin (MCH) determinationOrdered By: Avani Eduardo on 09-29-2024 MCH (RBC) [Entitic mass] 31.0 pg Normal 27.0-32.0 [facility] Comment on above: Performed By: #### L 100.0100, L501.6710 #### [facility] [address] [place], [address] Mean corpuscular hemoglobin concentration (MCHC) determinationOrdered By: Avani Eduardo on 09-29-2024 MCHC (RBC) [Mass/Vol] 33.2 g/dL Normal 32-36 [facility] Comment on above: Performed By: #### L 100.0100, L501.6710 #### [facility] [address] [place], [address] Mean platelet volume determi nationOrdered By: Avani Eduardo on 09-29-2024 Platelet mean volume (Bld) [Entitic vol] 9.4 fL Normal 6.2-12.0 [facility] Comment on above: Performed By: #### L 100.0100, L501.6710 #### [facility] [address] [place], [address] Monocyte percentageOrdered B y: Avani Eduardo on 09-29-2024 Monocytes/100 WBC (Bld) 14.1 % High 0-10 [facility] Comment on above: Performed By: #### L 100.0100, L501.6710 #### [facility] [address] [place], [address] Neutrophil percentageOrdered By: Avani Eduardo on 09-29-2024 Neutrophils/100 WBC (Bld) 43.2 % Low 47-70 [facility] Comment on above: Performed By: #### L 100.0100, L501.6710 #### [facility] [address] [place], [address] Nucleated red blood cell per centageOrdered By: Avani Eduardo on 09-29-2024 Nucleated RBC/100 WBC (Bld) [Ratio] 0 % 0-5 [facility] Platelet countOrdered By: Adriel Eduardo on 09-29-2024 Platelets (Bld) [#/Vol] 203 10*3/uL Normal 150-450 [facility] Comment on above: Performed By: #### L 100.0100, L501.6710 #### [facility] [address] [place], [address] White blood cell (WBC) count Ordered By: Avani Eduardo on 09-29-2024 WBC (Bld) [#/Vol] 7.1 10*3/uL Normal 4.4-11.0 [facility] Comment on above: Performed By: #### L 100.0100, L501.6710 #### [facility] [address] [place], [address] Thyroid Stim Hormone (TSH)on 08-01-2024 TSH 6.050 uIU/mL High 0.358-3.74 0 [facility] Comment on above: Order Comment: 304.2 Performed By: #### L 501.9520 #### [facility] [address] [place], [address] Hemoglobin A1con 06-28-2024 HbA1c (Bld) [Mass fraction] 7.6 % High 3.8-5.6 [facility] Comment on above: Order Comment: 304-2 Result Comment: Norm al < 5.7 % Prediabetic 5.7 - 6.4 % Diabetic >or= 6.5 % Please note range changes. Performed By: #### L 500.2500, L501.5200, L501.9520 #### [facility] [address] [place], [address] Valproic Acid (Depakene) Lev chandu 06-12-2024 VALPROIC ACID 38 ug/mL Low 50-100 [facility] Comment on above: Order Comment: 304.2 Performed By: #### L 501.8100 #### [facility] [address] [place], [address] Microalbumin,Random Urineon 05-03-2024 MICROALBUMIN,UR 18.5 mg/L Normal NO RANGE EST. [facility] Comment on above: Performed By: #### L 501.8100 #### [facility] [address] [place], [address] Urinalysis, Routine (Dipstic k)on 05-03-2024 BILIRUBIN URINE Negative Normal Negative [facility] Comment on above: Order Comment: 304.2 Performed By: #### L 501.8100 #### [facility] [address] [place], [address] Clarity (U) Sl. Cloudy Normal Clear [facility] Comment on above: Order Comment: 304.2 Performed By: #### L 501.8100 #### [facility] [address] [place], [address] Color (U) Yellow Normal Yellow [facility] Comment on above: Order Comment: 304.2 Performed By: #### L [id number] #### [facility] [address] [place], [address] GLUCOSE, UR 250 mg/dl Abnormal Normal [facility] Comment on above: Order Comment: 304.2 Performed By: #### L 501.8100 #### [facility] [address] [place], [address] KETONE UR 5 mg/dl Abnormal Negative [facility] Comment on above: Order Comment: 304.2 Performed By: #### L 501.8100 #### [facility] [address] [place], [address] LEUK ESTERASE 500 /ul Abnormal Negative [facility] Comment on above: Order Comment: 304.2 Performed By: #### L 501.8100 #### [facility] [address] [place], [address] Nitrite Ql (U) Negative Normal Negative [facility] Comment on above: Order Comment: 304.2 Performed By: #### L 501.8100 #### [facility] [address] [place], [address] OCCULT BLOOD-UR 25 /ul Abnormal Negative [facility] Comment on above: Order Comment: 304.2 Performed By: #### L 501.8100 #### [facility] [address] [place], [address] pH UR 8.0 Normal 5.0 - 8.0 [facility] Comment on above: Order Comment: 304.2 Performed By: #### L [id number] #### [facility] [address] [place], [address] PROT DIPSTX 15 mg/dl Abnormal Negative [facility] Comment on above: Order Comment: 304.2 Performed By: #### L 501.8100 #### [facility] [address] [place], [address] SP.GR. DIPSTX 1.015 Normal 1.002-1.03 0 [facility] Comment on above: Order Comment: 304.2 Performed By: #### L 501.8100 #### [facility] [address] [place], [address] UROBILI Normal Normal Normal [facility] Comment on above: Order Comment: 304.2 Performed By: #### L [id number] #### [facility] [address] [place], [address] Basophil percentageOrdered B y: Avani Eduardo on 01-10-2024 Bilirubin [Mass/Vol] 0.50 mg/dL 0.20-1.00 [facility] Comment on above: For patients on eltr ombopag therapy, use of Dimension [place] TBIL is not recommended. Chloride [Moles/Vol] 101 mmol/L 98-107 [facility] Glucose [Mass/Vol] 110 mg/dL 74-106 [facility] Comment on above: Fasting Glucose resu lt from 100 to 125 mg/dL suggests IMPAIRED HOMEOSTASIS per A.D.A. criteria. Hemoglobin (Bld) [Mass/Vol] 12.4 g/dL 13.0-16.5 [facility] Potassium [Moles/Vol] 3.1 mmol/L 3.5-5.1 [facility] Protein [Mass/Vol] 6.0 g/dL 6.4-8.2 [facility] Sodium [Moles/Vol] 139 mmol/L 136-145 [facility] WBC (Bld) [#/Vol] 5.9 10*3/uL 4.4-11.0 [facility] Determination of erythrocyte mean corpuscular volume (MCV)Ordered By: Avani Eduardo on 01-10-2024 MCV (RBC) [Entitic vol] 92.2 fL 80-94 [facility] Erythrocyte distribution wid th ratioOrdered By: [facility] Jayce on 01-10-2024 Erythrocyte distribution width (RBC) [Ratio] 13.1 % 11.6-14.6 [facility] Erythrocyte distribution wid th standard deviationOrdered By: [facility] Jayce on 01-10-2024 Erythrocyte distribution width (RBC) [Entitic vol] 44.1 fL 35.1-43.9 [facility] Hematocrit Auto (Bld) [Volum e fraction]Ordered By: Avani Jayce on 01-10-2024 Hematocrit (Bld) [Volume fraction] 37.7 % 40-54 [facility] - Chemistry and C hemistry - [facility]Or[facility] Albumin/Globulin [Mass ratio] 0.8 {ratio} 0.9-2.4 [facility] ALP [Catalytic activity/Vol] 55 U/L 45-117 [facility] ALT [Catalytic activity/Vol] 20 U/L 16-61 [facility] CO2 [Moles/Vol] 32.0 mmol/L 21.0-32.0 [facility] Globulin (S) [Mass/Vol] 3.4 g/dL 2.2-4.2 [facility] Magnesium [Mass/Vol] 2.4 mg/dL 1.6-2.6 [facility] Urea nitrogen/Creatinine [Mass ratio] 20.2 mg/mg 10-20 [facility] - Hematology and Cell countsOrdered By: Avanigómez Eduardo on 01-10-2024 MCH (RBC) [Entitic mass] 30.3 pg 27.0-32.0 [facility] MCHC (RBC) [Mass/Vol] 32.9 g/dL 32-36 [facility] Platelet mean volume (Bld) [Entitic vol] 8.9 fL 6.2-12.0 [facility] Platelets (Bld) [#/Vol] 175 10*3/uL 150-450 [facility] No Panel InformationOrdered By: Avani Eduardo on 01-10-2024 Estimated GFR (MDRD) Amer 156 mL/min >60 [facility] Comment on above: GFR Calc Estimated GFR (MDRD) Non-Af Amer 129 mL/min >60 [facility] Comment on above: Non- GFR Calc RBC Auto (Bld) [#/Vol]Ordere d By: Avani Eduardo on 01-10-2024 RBC (Bld) [#/Vol] 4.09 10*6/uL 4.6-6.2 [facility] Serum or plasma calcium minda urement (mass/volume)Ordered By: Avani Eduardo on 01-10-2024 Calcium [Mass/Vol] 8.6 mg/dL 8.5-10.1 [facility] Serum or plasma creatinine m easurement (mass/volume)Ordered By: Avani Eduardo on 01-10-2024 Creatinine [Mass/Vol] 0.64 mg/dL 0.70-1.30 [facility] Comment on above: The validity of the calculated GFR & GFRAA in patients over 70 years has not been determined. Clinical correlation is essential. Serum or plasma urea nitroge n measurement (mass/volume)Ordered By: Avani Eduardo on 01-10-2024 Urea nitrogen [Mass/Vol] 13 mg/dL 7-18 [facility] Thin prep Papanicolaou smear with manual screeningOrdered By: Avani Eduardo on 01-10-2024 Thin prep Papanicolaou smear with manual screening 2.6 g/dL 3.2-5.0 [facility] Thin prep Papanicolaou smear with manual screening 26 U/L 15-37 [facility] Thin prep Papanicolaou smear with manual screening 6 5-15 [facility] Basophil percentageOrdered B y: Avani Eduardo on 01-03-2024 Bilirubin [Mass/Vol] 0.50 mg/dL 0.20-1.00 [facility] Comment on above: For patients on eltr ombopag therapy, use of Dimension [place] TBIL is not recommended. Chloride [Moles/Vol] 103 mmol/L 98-107 [facility] Glucose [Mass/Vol] 131 mg/dL 74-106 [facility] Comment on above: Fasting Glucose resu lt greater than or equal to 126 mg/dL suggests DIABETES MELLITUS per A.D.A. criteria. Hemoglobin (Bld) [Mass/Vol] 12.1 g/dL 13.0-16.5 [facility] Potassium [Moles/Vol] 3.2 mmol/L 3.5-5.1 [facility] Protein [Mass/Vol] 5.8 g/dL 6.4-8.2 [facility] Sodium [Moles/Vol] 139 mmol/L 136-145 [facility] WBC (Bld) [#/Vol] 5.4 10*3/uL 4.4-11.0 [facility] Determination of erythrocyte mean corpuscular volume (MCV)Ordered By: Avani Eduardo on 01-03-2024 MCV (RBC) [Entitic vol] 92.0 fL 80-94 [facility] Erythrocyte distribution wid th ratioOrdered By: Avanigómez Eduardo on 01-03-2024 Erythrocyte distribution width (RBC) [Ratio] 13.2 % 11.6-14.6 [facility] Erythrocyte distribution wid th standard deviationOrdered By: Avanigómez Eduardo on 01-03-2024 Erythrocyte distribution width (RBC) [Entitic vol] 45.0 fL 35.1-43.9 [facility] Hematocrit Auto (Bld) [Volum e fraction]Ordered By: Avani Eduardo on 01-03-2024 Hematocrit (Bld) [Volume fraction] 35.8 % 40-54 [facility] - Chemistry and C hemistry - challengeOrdered By: Avanigómez Eduardo on 01-03-2024 Albumin/Globulin [Mass ratio] 0.8 {ratio} 0.9-2.4 [facility] ALP [Catalytic activity/Vol] 52 U/L 45-117 [facility] ALT [Catalytic activity/Vol] 18 U/L 16-61 [facility] CO2 [Moles/Vol] 31.0 mmol/L 21.0-32.0 [facility] Globulin (S) [Mass/Vol] 3.3 g/dL 2.2-4.2 [facility] Magnesium [Mass/Vol] 2.2 mg/dL 1.6-2.6 [facility] Urea nitrogen/Creatinine [Mass ratio] 20.9 mg/mg 10-20 [facility] - Hematology and Cell countsOrdered By: Avani Eduardo on 01-03-2024 MCH (RBC) [Entitic mass] 31.1 pg 27.0-32.0 [facility] MCHC (RBC) [Mass/Vol] 33.8 g/dL 32-36 [facility] Platelet mean volume (Bld) [Entitic vol] 9.3 fL 6.2-12.0 [facility] Platelets (Bld) [#/Vol] 140 10*3/uL 150-450 [facility] No Panel InformationOrdered By: Avani Eduardo on 01-03-2024 Estimated GFR (MDRD) Amer 162 mL/min >60 [facility] Comment on above: GFR Calc Estimated GFR (MDRD) Non-Af Amer 134 mL/min >60 [facility] Comment on above: Non- GFR Calc RBC Auto (Bld) [#/Vol]Ordere d By: Avani Eduardo on 01-03-2024 RBC (Bld) [#/Vol] 3.89 10*6/uL 4.6-6.2 [facility] Serum or plasma calcium minda urement (mass/volume)Ordered By: Avani Eduardo on 01-03-2024 Calcium [Mass/Vol] 8.7 mg/dL 8.5-10.1 [facility] Serum or plasma creatinine m easurement (mass/volume)Ordered By: Avani Eduardo on 01-03-2024 Creatinine [Mass/Vol] 0.62 mg/dL 0.70-1.30 [facility] Comment on above: The validity of the calculated GFR & GFRAA in patients over 70 years has not been determined. Clinical correlation is essential. Serum or plasma urea nitroge n measurement (mass/volume)Ordered By: Avani Eduardo on 01-03-2024 Urea nitrogen [Mass/Vol] 13 mg/dL 7-18 [facility] Thin prep Papanicolaou smear with manual screeningOrdered By: Avani Eduardo on 01-03-2024 Thin prep Papanicolaou smear with manual screening 2.5 g/dL 3.2-5.0 [facility] Thin prep Papanicolaou smear with manual screening 22 U/L 15-37 [facility] Thin prep Papanicolaou smear with manual screening 5 5-15 [facility] Serum or plasma thyroid stim ulating hormone (TSH) measurement (units/volume)Ordered By: Avani Eduardo on 12-15-2023 TSH Qn 8.74 uIU/mL 0.358-3.74 [facility] Basophil percentageOrdered B y: Avani Eduardo on 11-04-2023 Bilirubin [Mass/Vol] 0.40 mg/dL 0.20-1.00 [facility] Comment on above: For patients on eltr ombopag therapy, use of Dimension [place] TBIL is not recommended. Protein [Mass/Vol] 6.9 g/dL 6.4-8.2 [facility] Direct bilirubinOrdered By: Avani Eduardo on 11-04-2023 Bilirubin.direct [Mass/Vol] 0.13 mg/dL 0.00-0.30 [facility] - Chemistry and C hemistry - challengeOrdered By: Avani Eduardo on 11-04-2023 ALP [Catalytic activity/Vol] 66 U/L 45-117 [facility] ALT [Catalytic activity/Vol] 28 U/L 16-61 [facility] Globulin (S) [Mass/Vol] 4.0 g/dL 2.2-4.2 [facility] Thin prep Papanicolaou smear with manual screeningOrdered By: Avani Eduardo on 11-04-2023 Thin prep Papanicolaou smear with manual screening 2.9 g/dL 3.2-5.0 [facility] Thin prep Papanicolaou smear with manual screening 22 U/L 15-37 [facility] Absolute lymphocyte countOrd ered By: Avani Eduardo on 10-20-2023 Lymphocytes Auto (Unsp spec) [#/Vol] 2.41 10*3/uL 0.83-4.51 [facility] Automated lymphocyte count a s percentage of total leukocytesOrdered By: Avani Eduardo on 10-20-2023 Lymphocytes/100 WBC Auto (Unsp spec) 34.2 % 19-41 [facility] Basophil percentageOrdered B y: Avani Eduardo on 10-20-2023 Basophils/100 WBC (Bld) 0.6 % 0-1 [facility] Chloride [Moles/Vol] 101 mmol/L 98-107 [facility] Eosinophils/100 WBC (Bld) 2.0 % 0-5 [facility] Glucose [Mass/Vol] 142 mg/dL 74-106 [facility] Comment on above: Fasting Glucose resu lt greater than or equal to 126 mg/dL suggests DIABETES MELLITUS per A.D.A. criteria. Hemoglobin (Bld) [Mass/Vol] 14.2 g/dL 13.0-16.5 [facility] Monocytes/100 WBC (Bld) 12.8 % 0-10 [facility] Neutrophils (Bld) [#/Vol] 3.5 10*3/uL 2.0-7.7 [facility] Neutrophils/100 WBC (Bld) 49.5 % 47-70 [facility] Potassium [Moles/Vol] 3.6 mmol/L 3.5-5.1 [facility] Sodium [Moles/Vol] 139 mmol/L 136-145 [facility] WBC (Bld) [#/Vol] 7.0 10*3/uL 4.4-11.0 [facility] Determination of erythrocyte mean corpuscular volume (MCV)Ordered By: Avani Eduardo on 10-20-2023 MCV (RBC) [Entitic vol] 91.9 fL 80-94 [facility] Erythrocyte distribution wid th ratioOrdered By: Avanigómez Eduardo on 10-20-2023 Erythrocyte distribution width (RBC) [Ratio] 13.2 % 11.6-14.6 [facility] Erythrocyte distribution wid th standard deviationOrdered By: Avani Eduardo on 10-20-2023 Erythrocyte distribution width (RBC) [Entitic vol] 44.6 fL 35.1-43.9 [facility] Hematocrit Auto (Bld) [Volum e fraction]Ordered By: Avani Eduardo on 10-20-2023 Hematocrit (Bld) [Volume fraction] 43.0 % 40-54 [facility] Immature granulocytes/100 WB C Auto (Bld)Ordered By: Avani Eduardo on 10-20-2023 Immature granulocytes/100 WBC (Bld) 0.900 % 0.0-0.9 [facility] Comment on above: IG% - Immature Granu locytes (promyelocytes, myelocytes and metamyelocytes) > 1% indicates that a LEFT SHIFT is Present. Laboratory - Chemistry and C hemistry - challengeOrdered By: Avani Eduardo on 10-20-2023 CO2 [Moles/Vol] 33.0 mmol/L 21.0-32.0 [facility] Urea nitrogen/Creatinine [Mass ratio] 16.5 mg/mg 10-20 [facility] - Hematology and Cell countsOrdered By: Avani Eduardo on 10-20-2023 MCH (RBC) [Entitic mass] 30.3 pg 27.0-32.0 [facility] MCHC (RBC) [Mass/Vol] 33.0 g/dL 32-36 [facility] Nucleated RBC/100 WBC (Bld) [Ratio] 0 % 0-5 [facility] Platelets (Bld) [#/Vol] 197 10*3/uL 150-450 [facility] No Panel InformationOrdered By: Avani Eduardo on 10-20-2023 Estimated GFR (MDRD) Amer 114 mL/min >60 [facility] Comment on above: GFR Calc Estimated GFR (MDRD) Non-Af Amer 94 mL/min >60 [facility] Comment on above: Non- GFR Calc Platelet mean volume Riaz-Ec ker (Bld) [Entitic vol]Ordered By: Avani Eduardo on 10-20-2023 Platelet mean volume (Bld) [Entitic vol] 8.6 fL 6.2-12.0 [facility] RBC Auto (Bld) [#/Vol]Ordere d By: Avani Eduardo on 10-20-2023 RBC (Bld) [#/Vol] 4.68 10*6/uL 4.6-6.2 [facility] Serum or plasma calcium minda urement (mass/volume)Ordered By: Avani Eduardo on 10-20-2023 Calcium [Mass/Vol] 9.4 mg/dL 8.5-10.1 [facility] Serum or plasma creatinine m easurement (mass/volume)Ordered By: Avani Eduardo on 10-20-2023 Creatinine [Mass/Vol] 0.85 mg/dL 0.70-1.30 [facility] Comment on above: The validity of the calculated GFR & GFRAA in patients over 70 years has not been determined. Clinical correlation is essential. Serum or plasma urea nitroge n measurement (mass/volume)Ordered By: Avani Eduardo on 10-20-2023 Urea nitrogen [Mass/Vol] 14 mg/dL 7-18 [facility] Thin prep Papanicolaou smear with manual screeningOrdered By: Avani Eduardo on 10-20-2023 Thin prep Papanicolaou smear with manual screening 5 5-15 [facility] - Chemistry and C hemistry - challengeOrdered By: Avani Eduardo on 10-11-2023 T4 [Mass/Vol] 10.8 ug/dL 4.5-12.1 [facility] No Panel InformationOrdered By: Avani Eduardo on 10-11-2023 Thyroid Stimulating Hormone (TSH) 5.65 uIU/mL 0.358-3.74 [facility] Basophil percentageOrdered B y: Avani Eduardo on 10-05-2023 Chloride [Moles/Vol] 105 mmol/L 98-107 [facility] Glucose [Mass/Vol] 95 mg/dL 74-106 [facility] Potassium [Moles/Vol] 3.7 mmol/L 3.5-5.1 [facility] Comment on above: Slight Hemolysis, Re sult may be falsely increased. Sodium [Moles/Vol] 139 mmol/L 136-145 [facility] - Chemistry and C hemistry - challengeOrdered By: Avani Eduardo on 10-05-2023 CO2 [Moles/Vol] 30.0 mmol/L 21.0-32.0 [facility] Magnesium [Mass/Vol] 2.5 mg/dL 1.6-2.6 [facility] Comment on above: Slight Hemolysis, Re sult may be falsely increased. Urea nitrogen/Creatinine [Mass ratio] 16.3 mg/mg 10-20 [facility] No Panel InformationOrdered By: Avani Eduardo on 10-05-2023 Estimated GFR (MDRD) Amer 134 mL/min >60 [facility] Comment on above: GFR Calc Estimated GFR (MDRD) Non-Af Amer 111 mL/min >60 [facility] Comment on above: Non- GFR Calc Serum or plasma calcium minda urement (mass/volume)Ordered By: Avani Eduardo on 10-05-2023 Calcium [Mass/Vol] 8.0 mg/dL 8.5-10.1 [facility] Serum or plasma creatinine m easurement (mass/volume)Ordered By: Avani Eduardo on 10-05-2023 Creatinine [Mass/Vol] 0.74 mg/dL 0.70-1.30 [facility] Comment on above: The validity of the calculated GFR & GFRAA in patients over 70 years has not been determined. Clinical correlation is essential. Serum or plasma urea nitroge n measurement (mass/volume)Ordered By: Avani Eduardo on 10-05-2023 Urea nitrogen [Mass/Vol] 12 mg/dL 7-18 [facility] Thin prep Papanicolaou smear with manual screeningOrdered By: Avani Eduardo on 10-05-2023 Thin prep Papanicolaou smear with manual screening 4 5-15 [facility] Absolute lymphocyte countOrd ered By: Avani Eduardo on 09-22-2023 Lymphocytes Auto (Unsp spec) [#/Vol] 2.51 10*3/uL 0.83-4.51 [facility] Basophil percentageOrdered B y: Avani Eduardo on 09-22-2023 Basophils/100 WBC (Bld) 0.5 % 0-1 [facility] Chloride [Moles/Vol] 107 mmol/L 98-107 [facility] Eosinophils/100 WBC (Bld) 1.7 % 0-5 [facility] Glucose [Mass/Vol] 123 mg/dL 74-106 [facility] Comment on above: Fasting Glucose resu lt from 100 to 125 mg/dL suggests IMPAIRED HOMEOSTASIS per A.D.A. criteria. Neutrophils (Bld) [#/Vol] 2.3 10*3/uL 2.0-7.7 [facility] Neutrophils/100 WBC (Bld) 38.7 % 47-70 [facility] Potassium [Moles/Vol] 3.7 mmol/L 3.5-5.1 [facility] Sodium [Moles/Vol] 143 mmol/L 136-145 [facility] WBC (Bld) [#/Vol] 5.8 10*3/uL 4.4-11.0 [facility] Blood erythrocytes count (nu mber/volume)Ordered By: Avani Eduardo on 09-22-2023 RBC (Bld) [#/Vol] 4.08 10*6/uL 4.6-6.2 [facility] Blood hemoglobin measurement (mass/volume)Ordered By: Avani Eduardo on 09-22-2023 Hemoglobin (Bld) [Mass/Vol] 12.6 g/dL 13.0-16.5 [facility] Blood lymphocytes/100 leukoc ytesOrdered By: Avani Eduardo on 09-22-2023 Lymphocytes/100 WBC (Bld) 43.1 % 19-41 [facility] Blood monocytes/100 leukocyt esOrdered By: Avani Eduardo on 09-22-2023 Monocytes/100 WBC (Bld) 14.8 % 0-10 [facility] Blood platelet mean volumeOr dered By: Avani Eduardo on 09-22-2023 Platelet mean volume (Bld) [Entitic vol] 8.8 fL 6.2-12.0 [facility] Determination of erythrocyte mean corpuscular volume (MCV)Ordered By: Avani Eduardo on 09-22-2023 MCV (RBC) [Entitic vol] 93.6 fL 80-94 [facility] Hematocrit Auto (Bld) [Volum e fraction]Ordered By: Avani Eduardo on 09-22-2023 Hematocrit (Bld) [Volume fraction] 38.2 % 40-54 [facility] Laboratory - Chemistry and C hemistry - challengeOrdered By: Avani Eduardo on 09-22-2023 CO2 [Moles/Vol] 34.0 mmol/L 21.0-32.0 [facility] Natriuretic peptide B (Bld) [Mass/Vol] 7.4 pg/mL 0-100 [facility] Urea nitrogen/Creatinine [Mass ratio] 24.9 mg/mg 10-20 [facility] Laboratory - Hematology and Cell countsOrdered By: Avani Eduardo on 09-22-2023 Erythrocyte distribution width (RBC) [Entitic vol] 45.8 fL 35.1-43.9 [facility] Erythrocyte distribution width (RBC) [Ratio] 13.3 % 11.6-14.6 [facility] Immature granulocytes/100 WBC (Bld) 1.200 % 0.0-0.9 [facility] Comment on above: IG% - Immature Granu locytes (promyelocytes, myelocytes and metamyelocytes) > 1% indicates that a LEFT SHIFT is Present. MCH (RBC) [Entitic mass] 30.9 pg 27.0-32.0 [facility] Nucleated RBC/100 WBC (Bld) [Ratio] 0 % 0-5 [facility] MCHC Auto (RBC) [Mass/Vol]Or dered By: Avani Eduardo on 09-22-2023 MCHC (RBC) [Mass/Vol] 33.0 g/dL 32-36 [facility] No Panel InformationOrdered By: Avani Eduardo on 09-22-2023 Estimated GFR (MDRD) Amer 146 mL/min >60 [facility] Comment on above: GFR Calc Estimated GFR (MDRD) Non-Af Amer 121 mL/min >60 [facility] Comment on above: Non- GFR Calc Platelets bldOrdered By: Ethan Eduardo on 09-22-2023 Platelets (Bld) [#/Vol] 170 10*3/uL 150-450 [facility] Serum or plasma calcium minda urement (mass/volume)Ordered By: Avani Eduardo on 09-22-2023 Calcium [Mass/Vol] 8.8 mg/dL 8.5-10.1 [facility] Serum or plasma creatinine m easurement (mass/volume)Ordered By: Avani Eduardo on 09-22-2023 Creatinine [Mass/Vol] 0.68 mg/dL 0.70-1.30 [facility] Comment on above: The validity of the calculated GFR & GFRAA in patients over 70 years has not been determined. Clinical correlation is essential. Serum or plasma urea nitroge n measurement (mass/volume)Ordered By: Avani Eduardo on 09-22-2023 Urea nitrogen [Mass/Vol] 17 mg/dL 7-18 [facility] Thin prep Papanicolaou smear with manual screeningOrdered By: Avani Eduardo on 09-22-2023 Thin prep Papanicolaou smear with manual screening 2 5-15 [facility] Basophil percentageOrdered B y: Avani Eduardo on 09-13-2023 Chloride [Moles/Vol] 105 mmol/L 98-107 [facility] Glucose [Mass/Vol] 100 mg/dL 74-106 [facility] Comment on above: Fasting Glucose resu lt from 100 to 125 mg/dL suggests IMPAIRED HOMEOSTASIS per A.D.A. criteria. Potassium [Moles/Vol] 4.3 mmol/L 3.5-5.1 [facility] Sodium [Moles/Vol] 139 mmol/L 136-145 [facility] Laboratory - Chemistry and C hemistry - challengeOrdered By: Avani Eduardo on 09-13-2023 CO2 [Moles/Vol] 28.0 mmol/L 21.0-32.0 [facility] Urea nitrogen/Creatinine [Mass ratio] 21.8 mg/mg 10-20 [facility] No Panel InformationOrdered By: Avani Eduardo on 09-13-2023 Estimated GFR (MDRD) Amer 157 mL/min >60 [facility] Comment on above: GFR Calc Estimated GFR (MDRD) Non-Af Amer 130 mL/min >60 [facility] Comment on above: Non- GFR Calc Serum or plasma calcium minda urement (mass/volume)Ordered By: Avani Eduardo on 09-13-2023 Calcium [Mass/Vol] 8.4 mg/dL 8.5-10.1 [facility] Serum or plasma creatinine m easurement (mass/volume)Ordered By: Avani Eduardo on 09-13-2023 Creatinine [Mass/Vol] 0.64 mg/dL 0.70-1.30 [facility] Comment on above: The validity of the calculated GFR & GFRAA in patients over 70 years has not been determined. Clinical correlation is essential. Serum or plasma urea nitroge n measurement (mass/volume)Ordered By: Avani Eduardo on 09-13-2023 Urea nitrogen [Mass/Vol] 14 mg/dL 7-18 [facility] Thin prep Papanicolaou smear with manual screeningOrdered By: Avani Eduardo on 09-13-2023 Thin prep Papanicolaou smear with manual screening 6 5-15 [facility] No Panel InformationOrdered By: Avani Eduardo on 08-30-2023 Levetiracetam (Keppra) Level 25.0 ug/mL 10.0-40.0 [facility] Comment on above: Performed at: [facility] [address] [id number] Director: Jess Bess MD, Phone: [phone] Absolute lymphocyte countOrd ered By: Avani Eduardo on 08-23-2023 Lymphocytes Auto (Unsp spec) [#/Vol] 1.90 10*3/uL 0.83-4.51 [facility] Basophil percentageOrdered B y: Avani Eduardo on 08-23-2023 Basophils/100 WBC (Bld) 0.7 % 0-1 [facility] Chloride [Moles/Vol] 104 mmol/L 98-107 [facility] Eosinophils/100 WBC (Bld) 2.2 % 0-5 [facility] Glucose [Mass/Vol] 122 mg/dL 74-106 [facility] Comment on above: Fasting Glucose resu lt from 100 to 125 mg/dL suggests IMPAIRED HOMEOSTASIS per A.D.A. criteria. Neutrophils (Bld) [#/Vol] 2.5 10*3/uL 2.0-7.7 [facility] Neutrophils/100 WBC (Bld) 45.6 % 47-70 [facility] Potassium [Moles/Vol] 3.7 mmol/L 3.5-5.1 [facility] Sodium [Moles/Vol] 142 mmol/L 136-145 [facility] WBC (Bld) [#/Vol] 5.6 10*3/uL 4.4-11.0 [facility] Blood erythrocytes count (nu mber/volume)Ordered By: Avani Eduardo on 08-23-2023 RBC (Bld) [#/Vol] 4.12 10*6/uL 4.6-6.2 [facility] Blood hemoglobin measurement (mass/volume)Ordered By: Avani Eduardo on 08-23-2023 Hemoglobin (Bld) [Mass/Vol] 12.3 g/dL 13.0-16.5 [facility] Blood lymphocytes/100 leukoc ytesOrdered By: Avani Eduardo on 08-23-2023 Lymphocytes/100 WBC (Bld) 34.2 % 19-41 [facility] Blood monocytes/100 leukocyt esOrdered By: Avani Eduardo on 08-23-2023 Monocytes/100 WBC (Bld) 16.0 % 0-10 [facility] Blood platelet mean volumeOr dered By: Avani Eduardo on 08-23-2023 Platelet mean volume (Bld) [Entitic vol] 9.3 fL 6.2-12.0 [facility] Determination of erythrocyte mean corpuscular volume (MCV)Ordered By: Avani Eduardo on 08-23-2023 MCV (RBC) [Entitic vol] 93.7 fL 80-94 [facility] Hematocrit Auto (Bld) [Volum e fraction]Ordered By: Avani Eduardo on 08-23-2023 Hematocrit (Bld) [Volume fraction] 38.6 % 40-54 [facility] Laboratory - Chemistry and C hemistry - challengeOrdered By: Avani Eduardo on 08-23-2023 CO2 [Moles/Vol] 31.0 mmol/L 21.0-32.0 [facility] Magnesium [Mass/Vol] 2.6 mg/dL 1.6-2.6 [facility] Urea nitrogen/Creatinine [Mass ratio] 26.0 mg/mg 10-20 [facility] - Hematology and Cell countsOrdered By: Avani Eduardo on 08-23-2023 Erythrocyte distribution width (RBC) [Entitic vol] 46.4 fL 35.1-43.9 [facility] Erythrocyte distribution width (RBC) [Ratio] 13.4 % 11.6-14.6 [facility] Immature granulocytes/100 WBC (Bld) 1.300 % 0.0-0.9 [facility] Comment on above: IG% - Immature Granu locytes (promyelocytes, myelocytes and metamyelocytes) > 1% indicates that a LEFT SHIFT is Present. MCH (RBC) [Entitic mass] 29.9 pg 27.0-32.0 [facility] Nucleated RBC/100 WBC (Bld) [Ratio] 0 % 0-5 [facility] MCHC Auto (RBC) [Mass/Vol]Or dered By: Avani Eduardo on 08-23-2023 MCHC (RBC) [Mass/Vol] 31.9 g/dL 32-36 [facility] No Panel InformationOrdered By: Avani Eduardo on 08-23-2023 Estimated GFR (MDRD) Amer 144 mL/min >60 [facility] Comment on above: GFR Calc Estimated GFR (MDRD) Non-Af Amer 119 mL/min >60 [facility] Comment on above: Non- GFR Calc Levetiracetam (Keppra) Level 51.4 ug/mL 10.0-40.0 [facility] Comment on above: Performed at: - [address] [id number] Director: Jess Bess MD, Phone: [phone] Valproic Acid (Depakene) Level 60 ug/mL 50-100 [facility] Platelets bldOrdered By: Ethan Eduardo on 08-23-2023 Platelets (Bld) [#/Vol] 174 10*3/uL 150-450 [facility] Serum or plasma calcium minda urement (mass/volume)Ordered By: Avani Eduardo on 08-23-2023 Calcium [Mass/Vol] 8.5 mg/dL 8.5-10.1 [facility] Serum or plasma creatinine m easurement (mass/volume)Ordered By: Avani Eduardo on 08-23-2023 Creatinine [Mass/Vol] 0.69 mg/dL 0.70-1.30 [facility] Comment on above: The validity of the calculated GFR & GFRAA in patients over 70 years has not been determined. Clinical correlation is essential. Serum or plasma urea nitroge n measurement (mass/volume)Ordered By: Avani Eduardo on 08-23-2023 Urea nitrogen [Mass/Vol] 18 mg/dL 7-18 [facility] Serum or plasma uric acid me asurement (mass/volume)Ordered By: Avani Eduardo on 08-23-2023 Urate [Mass/Vol] 5.6 mg/dL 3.5-7.2 [facility] Comment on above: The drugs N-Acetylcy steine and Metamizole may falsely depress this assay. Thin prep Papanicolaou smear with manual screeningOrdered By: Avani Eduardo on 08-23-2023 Thin prep Papanicolaou smear with manual screening 7 5-15 [facility] Basophil percentageOrdered B y: Avani Eduardo on 05-24-2023 Cholesterol [Mass/Vol] 143 mg/dL <200 [facility] Comment on above: <200 mg/dL Desirable 200-240 mg/dL Borderline >240 mg/dL High Risk Triglyceride [Mass/Vol] 102 mg/dL <199 [facility] Comment on above: The drugs N-Acetylcy steine and Metamizole may falsely depress this assay.Serum Triglycerides Reference Interval Normal <150 mg/dL Borderline high 150 - 199 mg/dL High 200 - 499 mg/dL Very High > or = 500 mg/dL Serum or plasma cholesterol in HDL measurement (mass/volume)Ordered By: Avani Eduardo on 05-24-2023 Cholesterol in HDL [Mass/Vol] 54 mg/dL >40 [facility] Comment on above: The drugs N-Acetylcy steine and Metamizole may falsely depress this assay. Reference Range HDL <40 mg/dL Low HDL Cholesterol HDL >or= 60 mg/dL High HDL Cholesterol Serum or plasma cholesterol in VLDL measurement (mass/volume)Ordered By: Avani Eduardo on 05-24-2023 Cholesterol in VLDL [Mass/Vol] 20 mg/dL 5-40 [facility] Serum or plasma low density lipoprotein (LDL) cholesterol measurement (mass/volume)Ordered By: Avani Eduardo on 05-24-2023 Cholesterol in LDL [Mass/Vol] 69 mg/dL 0-130 [facility] Basophil percentageOrdered B y: Avani Eduardo on 02-16-2023 Chloride [Moles/Vol] 106 mmol/L 98-107 [facility] Glucose [Mass/Vol] 61 mg/dL 74-106 [facility] Potassium [Moles/Vol] 4.1 mmol/L 3.5-5.1 [facility] Sodium [Moles/Vol] 142 mmol/L 136-145 [facility] WBC (Bld) [#/Vol] 5.5 10*3/uL 4.4-11.0 [facility] Blood erythrocytes count (nu mber/volume)Ordered By: Avani Eduardo on 02-16-2023 RBC (Bld) [#/Vol] 3.87 10*6/uL 4.6-6.2 [facility] Blood hemoglobin measurement (mass/volume)Ordered By: Avani Eduardo on 02-16-2023 Hemoglobin (Bld) [Mass/Vol] 12.7 g/dL 13.0-16.5 [facility] Blood platelet mean volumeOr dered By: Avani Eduardo on 02-16-2023 Platelet mean volume (Bld) [Entitic vol] 9.0 fL 6.2-12.0 [facility] Determination of erythrocyte mean corpuscular volume (MCV)Ordered By: Avani Eduardo on 02-16-2023 MCV (RBC) [Entitic vol] 104.4 fL 80-94 [facility] Hematocrit Auto (Bld) [Volum e fraction]Ordered By: Avani Eduardo on 02-16-2023 Hematocrit (Bld) [Volume fraction] 40.4 % 40-54 [facility] - Chemistry and C hemistry - challengeOrdered By: Avani Eduardo on 02-16-2023 CO2 [Moles/Vol] 27.0 mmol/L 21.0-32.0 [facility] Magnesium [Mass/Vol] 2.6 mg/dL 1.6-2.6 [facility] Urea nitrogen/Creatinine [Mass ratio] 26.0 mg/mg 10-20 [facility] - Hematology and Cell countsOrdered By: Avani Eduardo on 02-16-2023 Erythrocyte distribution width (RBC) [Entitic vol] 46.1 fL 35.1-43.9 [facility] Erythrocyte distribution width (RBC) [Ratio] 11.9 % 11.6-14.6 [facility] MCH (RBC) [Entitic mass] 32.8 pg 27.0-32.0 [facility] MCHC Auto (RBC) [Mass/Vol]Or dered By: Avani Eduardo on 02-16-2023 MCHC (RBC) [Mass/Vol] 31.4 g/dL 32-36 [facility] No Panel InformationOrdered By: Avani Eduardo on 02-16-2023 Estimated GFR (MDRD) Amer 178 mL/min >60 [facility] Comment on above: GFR Calc Estimated GFR (MDRD) Non-Af Amer 147 mL/min >60 [facility] Comment on above: Non- GFR Calc Platelets bldOrdered By: Ethan Eduardo on 02-16-2023 Platelets (Bld) [#/Vol] 141 10*3/uL 150-450 [facility] Serum or plasma calcium minda urement (mass/volume)Ordered By: Avani Eduardo on 02-16-2023 Calcium [Mass/Vol] 8.7 mg/dL 8.5-10.1 [facility] Serum or plasma creatinine m easurement (mass/volume)Ordered By: Avani Eduardo on 02-16-2023 Creatinine [Mass/Vol] 0.58 mg/dL 0.70-1.30 [facility] Comment on above: The validity of the calculated GFR & GFRAA in patients over 70 years has not been determined. Clinical correlation is essential. Serum or plasma urea nitroge n measurement (mass/volume)Ordered By: Avani Eduardo on 02-16-2023 Urea nitrogen [Mass/Vol] 15 mg/dL 7-18 [facility] Thin prep Papanicolaou smear with manual screeningOrdered By: Avani Eduardo on 02-16-2023 Thin prep Papanicolaou smear with manual screening 9 5-15 [facility] Basophil percentageOrdered B y: Avani Eduardo on 02-09-2023 Chloride [Moles/Vol] 106 mmol/L 98-107 [facility] Glucose [Mass/Vol] 95 mg/dL 74-106 [facility] Potassium [Moles/Vol] 3.9 mmol/L 3.5-5.1 [facility] Sodium [Moles/Vol] 143 mmol/L 136-145 [facility] WBC (Bld) [#/Vol] 7.2 10*3/uL 4.4-11.0 [facility] Blood erythrocytes count (nu mber/volume)Ordered By: Avani Eduardo on 02-09-2023 RBC (Bld) [#/Vol] 3.98 10*6/uL 4.6-6.2 [facility] Blood hemoglobin measurement (mass/volume)Ordered By: Avani Eduardo on 02-09-2023 Hemoglobin (Bld) [Mass/Vol] 13.1 g/dL 13.0-16.5 [facility] Blood platelet mean volumeOr dered By: Avani Eduardo on 02-09-2023 Platelet mean volume (Bld) [Entitic vol] 9.3 fL 6.2-12.0 [facility] Determination of erythrocyte mean corpuscular volume (MCV)Ordered By: Avani Eduardo on 02-09-2023 MCV (RBC) [Entitic vol] 103.0 fL 80-94 [facility] Hematocrit Auto (Bld) [Volum e fraction]Ordered By: Avani Eduardo on 02-09-2023 Hematocrit (Bld) [Volume fraction] 41.0 % 40-54 [facility] - Chemistry and C hemistry - challengeOrdered By: Avani Eduardo on 02-09-2023 CO2 [Moles/Vol] 31.0 mmol/L 21.0-32.0 [facility] Magnesium [Mass/Vol] 2.7 mg/dL 1.6-2.6 [facility] Urea nitrogen/Creatinine [Mass ratio] 21.5 mg/mg 10-20 [facility] - Hematology and Cell countsOrdered By: Avani Eduardo on 02-09-2023 Erythrocyte distribution width (RBC) [Entitic vol] 46.2 fL 35.1-43.9 [facility] Erythrocyte distribution width (RBC) [Ratio] 12.2 % 11.6-14.6 [facility] MCH (RBC) [Entitic mass] 32.9 pg 27.0-32.0 [facility] MCHC Auto (RBC) [Mass/Vol]Or dered By: Avani Eduardo on 02-09-2023 MCHC (RBC) [Mass/Vol] 32.0 g/dL 32-36 [facility] No Panel InformationOrdered By: Avani Eduardo on 02-09-2023 Estimated GFR (MDRD) Amer 155 mL/min >60 [facility] Comment on above: GFR Calc Estimated GFR (MDRD) Non-Af Amer 128 mL/min >60 [facility] Comment on above: Non- GFR Calc Platelets bldOrdered By: Ethan Eduardo on 02-09-2023 Platelets (Bld) [#/Vol] 185 10*3/uL 150-450 [facility] Serum or plasma calcium minda urement (mass/volume)Ordered By: Avani Eduardo on 02-09-2023 Calcium [Mass/Vol] 9.2 mg/dL 8.5-10.1 [facility] Serum or plasma creatinine m easurement (mass/volume)Ordered By: Avani Eduardo on 02-09-2023 Creatinine [Mass/Vol] 0.65 mg/dL 0.70-1.30 [facility] Comment on above: The validity of the calculated GFR & GFRAA in patients over 70 years has not been determined. Clinical correlation is essential. Serum or plasma urea nitroge n measurement (mass/volume)Ordered By: Avani Eduardo on 02-09-2023 Urea nitrogen [Mass/Vol] 14 mg/dL 7-18 [facility] Thin prep Papanicolaou smear with manual screeningOrdered By: Avani Eduardo on 02-09-2023 Thin prep Papanicolaou smear with manual screening 6 5-15 [facility] Basophil percentageOrdered B y: [facility] on 05-05-2023 Ammonia (P) [Moles/Vol] 31.0 umol/L - [facility] No Panel InformationOrdered By: [facility] on 02-05-2023 Levetiracetam (Keppra) Level 33.4 ug/mL 10.0-40.0 [facility] Comment on above: Performed at: [address] [id number] Director: Jess Bess MD, Phone: [phone] Valproic Acid (Depakene) Level 81 ug/mL 50-100 [facility] Absolute lymphocyte countOrd ered By: Dr. Wilder on 01-18-2023 Lymphocytes Auto (Unsp spec) [#/Vol] 2.09 10*3/uL 0.83-4.51 [facility] Basophil percentageOrdered B y: Dr. Wilder on 01-18-2023 Ammonia (P) [Moles/Vol] 73.0 umol/L [facility] Basophils/100 WBC (Bld) 0.7 % 0-1 [facility] Bilirubin [Mass/Vol] 0.20 mg/dL 0.20-1.00 [facility] Comment on above: For patients on eltr ombopag therapy, use of Dimension [place] TBIL is not recommended. Chloride [Moles/Vol] 110 mmol/L 98-107 [facility] Eosinophils/100 WBC (Bld) 1.7 % 0-5 [facility] Glucose [Mass/Vol] 102 mg/dL 74-106 [facility] Comment on above: Fasting Glucose resu lt from 100 to 125 mg/dL suggests IMPAIRED HOMEOSTASIS per A.D.A. criteria. Neutrophils (Bld) [#/Vol] 2.4 10*3/uL 2.0-7.7 [facility] Neutrophils/100 WBC (Bld) 44.0 % 47-70 [facility] Potassium [Moles/Vol] 4.0 mmol/L 3.5-5.1 [facility] Protein [Mass/Vol] 4.5 g/dL 6.4-8.2 [facility] Sodium [Moles/Vol] 142 mmol/L 136-145 [facility] WBC (Bld) [#/Vol] 5.4 10*3/uL 4.4-11.0 [facility] Blood erythrocytes count (nu mber/volume)Ordered By: Dr. Wilder on 01-18-2023 RBC (Bld) [#/Vol] 2.97 10*6/uL 4.6-6.2 [facility] Blood hemoglobin measurement (mass/volume)Ordered By: Dr. Wilder on 01-18-2023 Hemoglobin (Bld) [Mass/Vol] 9.9 g/dL 13.0-16.5 [facility] Blood lymphocytes/100 leukoc ytesOrdered By: Dr. Wilder on 01-18-2023 Lymphocytes/100 WBC (Bld) 38.8 % 19-41 [facility] Blood monocytes/100 leukocyt esOrdered By: Dr. Wilder on 01-18-2023 Monocytes/100 WBC (Bld) 13.7 % 0-10 [facility] Blood platelet mean volumeOr dered By: Dr. Wilder on 01-18-2023 Platelet mean volume (Bld) [Entitic vol] 8.7 fL 6.2-12.0 [facility] Determination of erythrocyte mean corpuscular volume (MCV)Ordered By: Dr. Wilder on 01-18-2023 MCV (RBC) [Entitic vol] 104.7 fL 80-94 [facility] Hematocrit Auto (Bld) [Volum e fraction]Ordered By: Dr. Wilder on 01-18-2023 Hematocrit (Bld) [Volume fraction] 31.1 % 40-54 [facility] - Chemistry and C hemistry - challengeOrdered By: Dr. Wilder on 01-18-2023 ALP [Catalytic activity/Vol] 38 U/L 45-117 [facility] ALT [Catalytic activity/Vol] 10 U/L 16-61 [facility] CO2 [Moles/Vol] 29.0 mmol/L 21.0-32.0 [facility] Globulin (S) [Mass/Vol] 2.4 g/dL 2.2-4.2 [facility] Urea nitrogen/Creatinine [Mass ratio] 30.9 mg/mg 10-20 [facility] - Hematology and Cell countsOrdered By: Dr. Wilder on 01-18-2023 Erythrocyte distribution width (RBC) [Entitic vol] 52.2 fL 35.1-43.9 [facility] Erythrocyte distribution width (RBC) [Ratio] 13.4 % 11.6-14.6 [facility] Immature granulocytes/100 WBC (Bld) 1.100 % 0.0-0.9 [facility] Comment on above: IG% - Immature Granu locytes (promyelocytes, myelocytes and metamyelocytes) > 1% indicates that a LEFT SHIFT is Present. MCH (RBC) [Entitic mass] 33.3 pg 27.0-32.0 [facility] Nucleated RBC/100 WBC (Bld) [Ratio] 0 % 0-5 [facility] MCHC Auto (RBC) [Mass/Vol]Or dered By: Dr. Wilder on 01-18-2023 MCHC (RBC) [Mass/Vol] 31.8 g/dL 32-36 [facility] No Panel InformationOrdered By: Dr. Wilder on 01-18-2023 Estimated Creatinine Clearance Calc 52.95 ml/min [facility] Estimated GFR (MDRD) Amer 217 mL/min >60 [facility] Comment on above: GFR Calc Estimated GFR (MDRD) Non-Af Amer 179 mL/min >60 [facility] Comment on above: Non- GFR Calc Platelets bldOrdered By: Dr. Wilder on 01-18-2023 Platelets (Bld) [#/Vol] 137 10*3/uL 150-450 [facility] Serum or plasma albumin minda urement (mass/volume)Ordered By: Dr. Wilder on 01-18-2023 Albumin [Mass/Vol] 2.1 g/dL 3.2-5.0 [facility] Serum or plasma albumin/glob ulin mass ratioOrdered By: Dr. Wilder on 01-18-2023 Albumin/Globulin [Mass ratio] 0.9 {ratio} 0.9-2.4 [facility] Serum or plasma calcium minda urement (mass/volume)Ordered By: Dr. Wilder on 01-18-2023 Calcium [Mass/Vol] 8.5 mg/dL 8.5-10.1 [facility] Serum or plasma creatinine m easurement (mass/volume)Ordered By: Dr. Wilder on 01-18-2023 Creatinine [Mass/Vol] 0.48 mg/dL 0.70-1.30 [facility] Comment on above: The validity of the calculated GFR & GFRAA in patients over 70 years has not been determined. Clinical correlation is essential. Serum or plasma urea nitroge n measurement (mass/volume)Ordered By: Dr. Wilder on 01-18-2023 Urea nitrogen [Mass/Vol] 15 mg/dL 7-18 [facility] Thin prep Papanicolaou smear with manual screeningOrdered By: Dr. Wilder on 01-18-2023 Thin prep Papanicolaou smear with manual screening 14 U/L 15-37 [facility] Thin prep Papanicolaou smear with manual screening 3 5-15 [facility] Assessment of wrist artery p atency prior to arterial punctureOrdered By: Dr. Wilder on 01-16-2023 Arterial patency Wrist artery --pre arterial puncture Positive [facility] Base excessOrdered By: Dr. Brodie arce on 01-16-2023 Base excess Calc (BldV) [Moles/Vol] 7 mmol/L -2-2 [facility] Basophil percentageOrdered B y: Dr. Wilder on 01-16-2023 Basophil percentage 31.9 mmol/L 22-26 [facility] Basophils/100 WBC (Bld) 94 % 95-99 [facility] CO2 (BldA) [Partial pressure ]Ordered By: Dr. Wilder on 01-16-2023 CO2 (Bld) [Partial pressure] 49.8 mm[Hg] 35-45 [facility] Laboratory - Chemistry and C hemistry - challengeOrdered By: Dr. Wilder on 01-16-2023 Natriuretic peptide B (Bld) [Mass/Vol] 15.2 pg/mL 0-100 [facility] No Panel InformationOrdered By: Dr. Wilder on 01-16-2023 Valproic Acid (Depakene) Level 91 ug/mL 50-100 [facility] Blood Gas Oxygen Percent 21 [facility] Blood Gas Sample Site R Radial [facility] Blood Gas Specimen Type ART [facility] Blood Gas Total CO2 33 mmol/L [facility] Oxygen Delivery Device Room Air [facility] Oxygen (BldA) [Partial press ure]Ordered By: Dr. Wilder on 01-16-2023 Oxygen (Bld) [Partial pressure] 70 mmHG 75-100 [facility] pH measurementOrdered By: Dr Shanthi Wilder on 01-16-2023 pH (Unsp spec) 7.42 [pH] 7.35-7.45 [facility] Absolute lymphocyte countOrd ered By: Dr. Malik on 01-10-2023 Lymphocytes Auto (Unsp spec) [#/Vol] 2.65 10*3/uL 0.83-4.51 [facility] Basophil percentageOrdered B y: Dr. Malik on 01-10-2023 Basophil percentage 0 SEEN /hpf 0-5 [facility] Basophils/100 WBC (Bld) 0.8 % 0-1 [facility] Chloride [Moles/Vol] 105 mmol/L 98-107 [facility] Eosinophils/100 WBC (Bld) 1.7 % 0-5 [facility] Glucose [Mass/Vol] 83 mg/dL 74-106 [facility] Neutrophils (Bld) [#/Vol] 5.6 10*3/uL 2.0-7.7 [facility] Neutrophils/100 WBC (Bld) 53.9 % 47-70 [facility] Potassium [Moles/Vol] 4.3 mmol/L 3.5-5.1 [facility] Sodium [Moles/Vol] 139 mmol/L 136-145 [facility] WBC (Bld) [#/Vol] 10.4 10*3/uL 4.4-11.0 [facility] Bilirubin Test strip Ql (U)O rdered By: Dr. Malik on 01-10-2023 Bilirubin Ql (U) Negative Negative [facility] Blood erythrocytes count (nu mber/volume)Ordered By: Dr. Malik on 01-10-2023 RBC (Bld) [#/Vol] 3.68 10*6/uL 4.6-6.2 [facility] Blood hemoglobin measurement (mass/volume)Ordered By: Dr. Malik on 01-10-2023 Hemoglobin (Bld) [Mass/Vol] 12.3 g/dL 13.0-16.5 [facility] Blood lymphocytes/100 leukoc ytesOrdered By: Dr. Malik on 01-10-2023 Lymphocytes/100 WBC (Bld) 25.6 % 19-41 [facility] Blood monocytes/100 leukocyt esOrdered By: Dr. Malik on 01-10-2023 Monocytes/100 WBC (Bld) 16.6 % 0-10 [facility] Blood platelet mean volumeOr dered By: Dr. Malik on 01-10-2023 Platelet mean volume (Bld) [Entitic vol] 8.4 fL 6.2-12.0 [facility] Determination of erythrocyte mean corpuscular volume (MCV)Ordered By: Dr. Malik on 01-10-2023 MCV (RBC) [Entitic vol] 102.2 fL 80-94 [facility] Hematocrit Auto (Bld) [Volum e fraction]Ordered By: Dr. Malik on 01-10-2023 Hematocrit (Bld) [Volume fraction] 37.6 % 40-54 [facility] Hyaline casts LM.LPF (Urine sed) [#/Area]Ordered By: Dr. Malik on 01-10-2023 Hyaline casts (Urine sed) [#/Area] 0 /[LPF] 0-5 [facility] Ketones Test strip Ql (U)Ord ered By: Dr. Malik on 01-10-2023 Ketones Ql (U) 5 mg/dl Negative [facility] Laboratory - Chemistry and C hemistry - challengeOrdered By: Dr. Malik on 01-10-2023 CO2 [Moles/Vol] 29.0 mmol/L 21.0-32.0 [facility] Urea nitrogen/Creatinine [Mass ratio] 15.0 mg/mg 10-20 [facility] Laboratory - Hematology and Cell countsOrdered By: Dr. Malik on 01-10-2023 Erythrocyte distribution width (RBC) [Entitic vol] 49.0 fL 35.1-43.9 [facility] Erythrocyte distribution width (RBC) [Ratio] 13.1 % 11.6-14.6 [facility] Immature granulocytes/100 WBC (Bld) 1.400 % 0.0-0.9 [facility] Comment on above: IG% - Immature Granu locytes (promyelocytes, myelocytes and metamyelocytes) > 1% indicates that a LEFT SHIFT is Present. MCH (RBC) [Entitic mass] 33.4 pg 27.0-32.0 [facility] Nucleated RBC/100 WBC (Bld) [Ratio] 0 % 0-5 [facility] MCHC Auto (RBC) [Mass/Vol]Or dered By: Dr. Malik on 01-10-2023 MCHC (RBC) [Mass/Vol] 32.7 g/dL 32-36 [facility] Macrocytes detectionOrdered By: Dr. Malik on 01-10-2023 Macrocytes Ql (Bld) 2+ [facility] Mucus LM Ql (Urine sed)Order ed By: Dr. Malik on 01-10-2023 Mucus Ql (Urine sed) 0 SEEN /hpf [facility] Nitrite Test strip Ql (U)Ord ered By: Dr. Malik on 01-10-2023 Nitrite Ql (U) Negative Negative [facility] No Panel InformationOrdered By: Dr. Malik on 01-10-2023 Valproic Acid (Depakene) Level 80 ug/mL 50-100 [facility] Estimated Creatinine Clearance Calc 66.19 ml/min [facility] Estimated GFR (MDRD) Amer 122 mL/min >60 [facility] Comment on above: GFR Calc Estimated GFR (MDRD) Non-Af Amer 101 mL/min >60 [facility] Comment on above: Non- GFR Calc Troponin I High Sensitivity 6 pg/mL 3.0-78.0 [facility] Comment on above: Please Note: New Janice t Units and Gender Specific Reference Ranges. For more information see Policy Stat Procedure [place] High Sensitivity Troponin (TNIH) and attachments. Platelets bldOrdered By: Dr. Malik on 01-10-2023 Platelets (Bld) [#/Vol] 168 10*3/uL 150-450 [facility] Protein Test strip Ql (U)Ord ered By: Dr. Malik on 01-10-2023 Protein Ql (U) 15 mg/dl Negative [facility] Serum or plasma calcium minda urement (mass/volume)Ordered By: Dr. Malik on 01-10-2023 Calcium [Mass/Vol] 9.0 mg/dL 8.5-10.1 [facility] Serum or plasma creatinine m easurement (mass/volume)Ordered By: Dr. Malik on 01-10-2023 Creatinine [Mass/Vol] 0.80 mg/dL 0.70-1.30 [facility] Comment on above: The validity of the calculated GFR & GFRAA in patients over 70 years has not been determined. Clinical correlation is essential. Serum or plasma urea nitroge n measurement (mass/volume)Ordered By: Dr. Malik on 01-10-2023 Urea nitrogen [Mass/Vol] 12 mg/dL 7-18 [facility] Squamous epithelial cells de tection in urine sediment by light microscopyOrdered By: Dr. Malik on 01-10-2023 Epithelial cells.squamous LM Ql (Urine sed) 0 SEEN /hpf 0-5 [facility] Thin prep Papanicolaou smear with manual screeningOrdered By: Dr. Malik on 01-10-2023 Thin prep Papanicolaou smear with manual screening 5 5-15 [facility] Urine blood detectionOrdered By: Dr. Malik on 01-10-2023 RBC Ql (U) 25 /ul Negative [facility] RBC Ql (U) 0 SEEN /hpf 0-5 [facility] Urine clarityOrdered By: Dr. Malik on 01-10-2023 Clarity (U) Clear Clear [facility] Urine color determinationOrd ered By: Dr. Malik on 01-10-2023 Color (U) Yellow Yellow [facility] Urine glucose detectionOrder ed By: Dr. Malik on 01-10-2023 Glucose Ql (U) Normal mg/dl Normal [facility] Urine leukocyte esterase det ection by dipstickOrdered By: Dr. Malik on 01-10-2023 Leukocyte esterase Test strip Ql (U) Negative Negative [facility] Urine pHOrdered By: Dr. Binta smith on 01-10-2023 pH (U) 6.0 [pH] 5.0 - 8.0 [facility] Urine sediment bacteria coun t by microscopy (number/high power field)Ordered By: Dr. Malik on 01-10-2023 Bacteria LM.HPF (Urine sed) [#/Area] 0 /[HPF] None Seen [facility] Urine specific gravity measu rementOrdered By: Dr. Malik on 01-10-2023 Specific gravity (U) [Rel density] 1.015 1.002-1.03 0 [facility] Urobilinogen Auto test strip Ql (U)Ordered By: Dr. Malik on 01-10-2023 Urobilinogen Ql (U) Normal mg/dl Normal [facility] Ammonia Plas-sCncon 01-10-20 23 Ammonia (P) [Moles/Vol] 35 umol/L Normal 16-60 [facility] Comment on above: Order Comment: Speci men Type: BLOOD SPECIMEN Ordering Facility: [facility] Address: [address] [place], [place] [id number] Performed By: #### 1 6362-6 #### [facility] CLIA [id number] [address] CASE MANAGEMon 01-09-2023 CASE MANAGEM HNO ID: [id number] Author: ALYSSA Humphreys Service: ? Author Type: Director Of Environmental Services Type: Care Mgt Progress Note Filed: 01/09/2023 2:41 PM Note Text: CARE MANAGEMENT DISCHARGE NOTE SERVICE DATE: 01/09/2023 SERVICE TIME: 2:31 PM LOS: 1 day Patient discharging back to [facility] in [place]. Patient to be picked up at 9pm. [...] 09, 2023 TIME: 2:31 PM PAGER/CONTACT #: [phone] [facility] CNDSon 01-09-2023 CNDS HNO ID: [id number] Author: Lorene Ortiz MD Service: Hospital Medicine [...] Attending Provider: Lorene Ortiz MD Primary Service: DAVID LINDSAY Attending: Keron Dewey MD Consulting: Micheline Huber [...] HTN, and KYA He was admitted to [facility] 5 days prior due to weakness [...] 30 tablet (more content not included)... Normal [facility] NURSING PROGon 01-09-2023 NURSING PROG HNO ID: [id number] Author: Anitha Burnette RN Service: Nursing Author Type: Registered Nurse Type: Nursing Progress Note Filed: 01/09/2023 12:24 PM Note Text: Patient being discharged back to [facility]. Patient agreeable. Updated and informed facility of patient's return. Normal [facility] Valproate SerPl-mCncon 01-09 Valproate [Mass/Vol] 80.8 ug/mL Normal 50.0-100.0 [facility] Comment on above: Order Comment: Speci men Type: BLOOD SPECIMEN Ordering Facility: [facility] Address: [address] [place], [place] [id number] Result Comment: Refe rence ranges and high/low indicator flags are provided as general guidelines only. The treating physician must determine appropriate target levels/dosing based on the specific clinical situation. Performed By: #### 4 086-5 #### [facility] CLIA [id number] [address] ALLIED HEALTHon 01-08-2023 ALLIED HEALTH HNO ID: [id number] Author: RT Vivian(R) Service: Radiology Author Type: [...] Vivian(R) January 08, 2023 1:[address] [facility] CASE MGT INIT Kelsi 2022 CASE MGT INIT BUZZ HNO ID: [id number] Author: LAYNE Lozano Service: Social Work Author Type: Director Of Environmental Services Type: Care Mgt Initial Assessment Filed: 01/08/2023 4:14 PM Note Text: CARE MANAGEMENT: ASSESSMENT AND DISCHARGE PLAN SERVICE DATE: January 08, 2023 SERVICE TIME: 3:39 PM PCP: Maddie Cantor DO Primary Contact: Extended Emergency Contact Information Primary Emergency Contact: Cha Cantor Mobile Relation: Sister Secondary Emergency Contact: Pj conti Mobile Relation: Relative Admission Status: Inpatient Insurance Provider[facility] DUAL COMPLETE H[facility] POS SNP Discharge Planning requested by: Per Department Practice Potential Transition Plans Advance Directives Current Advance Directive: Health Care Power of Paddle Dyeing Machine Operator In Chart: Yes Up To Date and Valid: Yes Current Living Arrangements and Support Lives with: ([facility] Type of Residence: Assisted Living Facility Does [...] Care Goal(s): to return to Assisted living Jerome of Choice Explained: Jerome of Choice Given: Yes Level of Care Discussed: Home Care Are you interested in bedside delivery of your medications? No Discharge Planning Participant(s): Patient Patient/Family Comments: Caregiver Assessment: Caregiver is ready, willing and able to meet the patient's needs as recommended by the inter-professional team: Yes Name of Caregiver: in from Asssited Living Transport at Discharge: Transportation Arrangements: Ambulette Type of Service: BLS Non-emergency Is Patient Medicaid Pending?: No Was transportation financial coverage discussed with family?: No Gas Transfer Operator Location: [facility] Management Responsibility: None Needs Prior to Discharge: Needs Prior to Discharge: Discharge Transportation;Home Care Order Post-Acute Discharge Plan: Met with pt who presents as lethargic. Is in from [facility] living in [place]. Plan is to return. 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 PT and OT recommend home PT. Pt with no preference for home health agency. With pt's consent, contacted [facility] for agency they use. Referral sent to [facility]. Will need transport back to [facility] w/c ambulette. Per MD, pt now with lumbar fx. Await return call from pt's [facility] - Drea jay [phone] to update. SIGNATURE: LAYNE Lozano PATIENT NAME: Anjel Ross DATE: January 08, 2023 TIME: 3:39 PM CONTACT #: [phone] [facility] CBC W Auto Differential pane l (Bld)on 01-08-2023 Basophils (Bld) [#/Vol] 0.05 10*3/uL Normal <0.11 [facility] Comment on above: Order Comment: Devendra krishnamurthy Type: BLOOD SPECIMEN Ordering Facility: [facility] Address: [address] [place] [address] Performed By: #### 5 7021-8 #### [facility] CLIA [id number] 1 [place] [address] [place] Basophils/100 WBC (Bld) 0.6 % Normal [facility] Comment on above: Order Comment: Devendra krishnamurthy Type: BLOOD SPECIMEN Ordering Facility: [facility] Address: [address] [place] [address] Performed By: #### 5 7021-8 #### [facility] CLIA [id number] [address] Differential cell count method Nom (Bld) Auto Normal [facility] Comment on above: Order Comment: Speci men Type: BLOOD SPECIMEN Ordering Facility: [facility] Address: [address] [address] Performed By: #### 5 7021-8 #### [facility] CLIA [id number] [address] Eosinophils (Bld) [#/Vol] 0.18 10*3/uL Normal <0.46 [facility] Comment on above: Order Comment: Speci men Type: BLOOD SPECIMEN Ordering Facility: [facility] Address: [address] [address] Performed By: #### 5 7021-8 #### [facility] CLIA [id number] [address] Eosinophils/100 WBC (Bld) 2.0 % Normal [facility] Comment on above: Order Comment: Speci men Type: BLOOD SPECIMEN Ordering Facility: [facility] Address: [address] [address] Performed By: #### 5 7021-8 #### [facility] CLIA [id number] [address] Erythrocyte distribution width (RBC) [Ratio] 12.9 % Normal 11.5-15.0 [facility] Comment on above: Order Comment: Speci men Type: BLOOD SPECIMEN Ordering Facility: [facility] Address: [address] [address] Performed By: #### 5 7021-8 #### [facility] CLIA [id number] [address] Hematocrit (Bld) [Volume fraction] 40.2 % Normal 39.0-51.0 [facility] Comment on above: Order Comment: Speci men Type: BLOOD SPECIMEN Ordering Facility: [facility] Address: [address] [address] Performed By: #### 5 7021-8 #### [facility] CLIA [id number] [address] [place] Hemoglobin (Bld) [Mass/Vol] 13.1 g/dL Normal 13.0-17.0 [facility] Comment on above: Order Comment: Speci men Type: BLOOD SPECIMEN Ordering Facility: [facility] Address: [address] [place] [address] Performed By: #### 5 7021-8 #### [facility] CLIA [id number] [address] [place] Immature granulocytes (Bld) [#/Vol] 0.10 10*3/uL High <0.10 [facility] Comment on above: Order Comment: Speci men Type: BLOOD SPECIMEN Ordering Facility: [facility] Address: [address] [place] [address] Performed By: #### 5 7021-8 #### [facility] CLIA [id number] [address] [place] Immature granulocytes/100 WBC (Bld) 1.1 % Normal [facility] Comment on above: Order Comment: Speci men Type: BLOOD SPECIMEN Ordering Facility: [facility] Address: [address] [place] [address] Performed By: #### 5 7021-8 #### [facility] CLIA [id number] [address] [place] Lymphocytes (Bld) [#/Vol] 2.81 10*3/uL Normal 1.00-4.00 [facility] Comment on above: Order Comment: Speci men Type: BLOOD SPECIMEN Ordering Facility: [facility] Address: [address] [place] [address] Performed By: #### 5 7021-8 #### [facility] CLIA [id number] [address] [place] Lymphocytes/100 WBC (Bld) 31.6 % Normal [facility] Comment on above: Order Comment: Speci men Type: BLOOD SPECIMEN Ordering Facility: [facility] Address: [address] [place], [place] [phone] Performed By: #### 5 7021-8 #### [facility] CLIA [id number] [address] MCH (RBC) [Entitic mass] 32.7 pg Normal 26.0-34.0 [facility] Comment on above: Order Comment: Speci men Type: BLOOD SPECIMEN Ordering Facility: [facility] Address: [address] [place] [address] Performed By: #### 5 7021-8 #### [facility] CLIA [id number] [address] MCHC (RBC) [Mass/Vol] 32.6 g/dL Normal 30.5-36.0 [facility] Comment on above: Order Comment: Speci men Type: BLOOD SPECIMEN Ordering Facility: [facility] Address: [address] [place] [address] Performed By: #### 5 7021-8 #### [facility] CLIA [id number] [address] MCV (RBC) [Entitic vol] 100.2 fL High 80.0-100.0 [facility] Comment on above: Order Comment: Speci men Type: BLOOD SPECIMEN Ordering Facility: [facility] Address: [address] [place] [address] Performed By: #### 5 7021-8 #### [facility] CLIA [id number] [address] Monocytes (Bld) [#/Vol] 1.06 10*3/uL High <0.87 [facility] Comment on above: Order Comment: Speci men Type: BLOOD SPECIMEN Ordering Facility: [facility] Address: [address] [place] [address] Performed By: #### 5 7021-8 #### [facility] CLIA [id number] [address] Monocytes/100 WBC (Bld) 11.9 % Normal [facility] Comment on above: Order Comment: Speci men Type: BLOOD SPECIMEN Ordering Facility: [facility] Address: [address] [address] Performed By: #### 5 7021-8 #### [facility] CLIA [id number] [address] [place] Neutrophils (Bld) [#/Vol] 4.70 10*3/uL Normal 1.45-7.50 [facility] Comment on above: Order Comment: Speci men Type: BLOOD SPECIMEN Ordering Facility: [facility] Address: [address] [address] Performed By: #### 5 7021-8 #### [facility] CLIA [id number] [address] Neutrophils/100 WBC (Bld) 52.8 % Normal [facility] Comment on above: Order Comment: Speci men Type: BLOOD SPECIMEN Ordering Facility: [facility] Address: [address] [address] Performed By: #### 5 7021-8 #### [facility] CLIA [id number] [address] Nucleated RBC (Bld) [#/Vol] 10*3/uL Normal <0.01 [facility] Comment on above: Order Comment: Speci men Type: BLOOD SPECIMEN Ordering Facility: [facility] Address: [address] [address] Performed By: #### 5 7021-8 #### [facility] CLIA [id number] [address] Nucleated RBC/100 WBC (Bld) [Ratio] 0.0 /[address] [facility] Comment on above: Order Comment: Speci men Type: BLOOD SPECIMEN Ordering Facility: [facility] Address: [address] [address] Performed By: #### 5 7021-8 #### [facility] CLIA [id number] [address] [place] [address] [place] Platelet mean volume (Bld) [Entitic vol] 8.5 fL Low 9.0-12.7 [facility] Comment on above: Order Comment: Symonei yessy Type: BLOOD SPECIMEN Ordering Facility: [facility] Address: [address] [place] [address] Performed By: #### 5 7021-8 #### [facility] CLIA [id number] [address] OF [facility] Platelets (Bld) [#/Vol] 160 10*3/uL Normal 150-400 [facility] Comment on above: Order Comment: Symonei men Type: BLOOD SPECIMEN Ordering Facility: [facility] Address: [address] [place] [address] Performed By: #### 5 7021-8 #### [facility] CLIA [id number] [address] RBC (Bld) [#/Vol] 4.01 10*6/uL Low 4.20-6.00 [facility] Comment on above: Order Comment: Symonei men Type: BLOOD SPECIMEN Ordering Facility: [facility] Address: [address] [place] [address] Performed By: #### 5 7021-8 #### [facility] CLIA [id number] [address] WBC (Bld) [#/Vol] 8.90 10*3/uL Normal 3.70-11.00 [facility] Comment on above: Order Comment: Speci men Type: BLOOD SPECIMEN Ordering Facility: [facility] Address: [address] [place] [address] Performed By: #### 5 7021-8 #### [facility] CLIA [id number] [address] CONSULTon 01-08-2023 CONSULT HNO ID: [id number] Author: Mann Waggoner APRN.GUI DEVELOPER Service: Neurosurgery Author Type: Nurse Practitioner Type: [...] FOR CONSULT: L1 compression fracture REQUESTING PHYSICIAN: iDana PRIMARY CARE PHYSICIAN: Maddie Cantor DO Consultation requested by Dr. Ortiz for an opinion regarding L1 compression fracture. My final recommendations will be communicated back to the requesting physician by way of shared Medical record or letter to requesting physician via US mail. CHIEF COMPLAINT: progressive weakness HISTORY OF PRESENT ILLNESS : The patient is a 72 year old male transferred from [facility] with concerns for NPH.The patient currently [...] W/COLLJ SPEC WHEN PFRMD 03/25/2016 Colonoscopy outpt [facility] COLSC FLX W/REMOVAL LESION BY HOT BX [...] ANGIOPLASTY, ASHD Cancer Father LUNG Heart Father MO X 3 Heart Maternal Aunt MO Diabetes Maternal Aunt other (EPILEPSY) Paternal Grandfather [...] CUP (DEPAKENE) 1,000 mg ORAL TID Keron eDwey MD 1,000 mg at 01/08/23 1247 atorvastatin [...] 40 mg (more content not included)... Normal [facility] CONSULT HNO ID: [id number] Author: Chino Gerber DO Service: Neurology General [...] CARE PHYSICIAN: Maddie Cantor DO Subjective Mr. Ross is a 72 year old male with a past medical history significant for anemia, CAD, hypothyroidism, HLD, colon cancer, seizures, hypertension, KYA, who was [facility] admitted [facility] ago with generalized weakness, unsteady gait and fall without focal deficits. During that hospital stay CT brain was concerning for possible NPH. Subsequently, telemetry neurologist recommended patient to be transferred for neurology consult and LP and MRI brain/spine with and without contrast. Patient admitted to [facility] on 01/08 with differential diagnosis of unsteady [...] W/COLLJ SPEC WHEN PFRMD 03/25/2016 Colonoscopy outpt [facility] COLSC FLX W/REMOVAL LESION BY HOT BX [...] ANGIOPLASTY, ASHD Cancer Father LUNG Heart Father MO X 3 Heart Maternal Aunt [place] Diabetes Maternal Aunt other (EPILEPSY) Paternal Grandfather [...] mg tablet (more content not included)... Normal [facility] CT LUMBAR SPINE WO IVCONon 0 01-08-2023 CT LUMBAR SPINE WO IVCON * * *Final Report* * * DATE OF EXAM: Jan 08 2023 4:50PM [facility] 0508 - CT LUMBAR SPINE WO IVCON [...] are 5 lumbar-type vertebrae. Anatomic variant: None. Supreme Court Judge (topogram) images: Right hip arthroplasty. Alignment: S-shaped [...] and assume there are 5 lumbar-type vertebrae. Transitional Nurse: ELVIS Transcribe Date/Time: Jan 09 2023 9:56A Dictated by : NGUYỄN GILBERT DO This examination was interpreted and the report reviewed and electronically signed by: NGUYỄN GILBERT DO on Jan 09 2023 10:03AM EST [id number] Normal [facility] Comprehensive metabolic 2000 panelon 01-08-2023 Albumin [Mass/Vol] 3.2 g/dL Low 3.9-4.9 [facility] Comment on above: Order Comment: Speci men Type: BLOOD SPECIMEN Ordering Facility: [facility] Address: [place] [address] Performed By: #### 2 4323-8, 96025-1, 3016-3 #### [facility] CLIA [id number] [address] [place] [address] [place] ALP [Catalytic activity/Vol] 58 U/L Normal 38-113 [facility] Comment on above: Order Comment: Speci men Type: BLOOD SPECIMEN Ordering Facility: [facility] Address: [address] [place] [address] Performed By: #### 2 4323-8, , 3 #### [facility] CLIA [id number] [address] [place] [facility] ALT With P-5'-P [Catalytic activity/Vol] 7 U/L Low 10-54 [facility] [facility] Comment on above: Order Comment: Speci men Type: BLOOD SPECIMEN Ordering Facility: [facility] Address: [address] [place] [address] Performed By: #### 2 4323-8, , 3 #### [facility] CLIA [id number] [address] Anion gap [Moles/Vol] 10 mmol/L Normal 9-18 [facility] Comment on above: Order Comment: Speci men Type: BLOOD SPECIMEN Ordering Facility: [facility] Address: [address] [place] [address] Performed By: #### 2 4323-8, , 3 #### [facility] CLIA [id number] [address] AST With P-5'-P [Catalytic activity/Vol] 15 U/L Normal 14-40 [facility] Comment on above: Order Comment: Speci men Type: BLOOD SPECIMEN Ordering Facility: [facility] Address: [address] [address] Performed By: #### 2 4323-8, , 3 #### [facility] CLIA [id number] [address] [place] Bilirubin [Mass/Vol] 0.3 mg/dL Normal 0.2-1.3 [facility] Comment on above: Order Comment: Speci men Type: BLOOD SPECIMEN Ordering Facility: [facility] Address: [address] [address] Performed By: #### 2 4323-8, 31114-2, 6-3 #### [facility] CLIA [id number] [address] [place] Calcium [Mass/Vol] 9.4 mg/dL Normal 8.5-10.2 [facility] Comment on above: Order Comment: Speci men Type: BLOOD SPECIMEN Ordering Facility: [facility] Address: [address] [address] Performed By: #### 2 4323-8, , 3015-3 #### [facility] CLIA [id number] 1 [place] [address] [place] Chloride [Moles/Vol] 104 mmol/L Normal 97-105 [facility] Comment on above: Order Comment: Speci men Type: BLOOD SPECIMEN Ordering Facility: [facility] Address: [address] [address] Performed By: #### 2 432-8, , 3015-3 #### [facility] CLIA [id number] 1 [place] [address] [place] CO2 [Moles/Vol] 28 mmol/L Normal 22-30 [facility] Comment on above: Order Comment: Speci men Type: BLOOD SPECIMEN Ordering Facility: [facility] Address: [address] [place] [address] Performed By: #### 2 4323-8, , 3015-3 #### [facility] CLIA [id number] 1 [place] [address] [place] Creatinine [Mass/Vol] 0.65 mg/dL Low 0.73-1.22 [facility] Comment on above: Order Comment: Speci men Type: BLOOD SPECIMEN Ordering Facility: [facility] Address: [address] [address] Performed By: #### 2 4323-8, , 3015-3 #### [facility] CLIA [id number] 1 [place] [address] [place] ESTIMATED GLOMERULAR FILTRATION RATE 99 mL/min/1.73m??? Normal >=60 [facility] Comment on above: Order Comment: Devendra krishnamurthy Type: BLOOD SPECIMEN Ordering Facility: [facility] Address: [address] [place] [address] Result Comment: Narda mated Glomerular Filtration Rate [...] actual GFR. Performed By: #### 2 4323-8, 41428-8, 6-3 #### [facility] CLIA [id number] 1 [place] [address] [place] Glucose [Mass/Vol] 90 mg/dL Normal 74-99 [facility] Comment on above: Order Comment: Devendra krishnamurthy Type: BLOOD SPECIMEN Ordering Facility: [facility] Address: [address] [place] [address] Result Comment: The [place] Diabetes Association (ADA) provides guidance for cutoff [...] Standards of Medical Care in Diabetes 2016, [place] [employer]. Diabetes Care. 2016.39(Suppl 1). Performed By: #### 2 4323-8, 37008-4, 6-3 #### [facility] CLIA [id number] 1 [place] [address] [place] Potassium [Moles/Vol] 3.8 mmol/L Normal 3.7-5.1 [facility] Comment on above: Order Comment: Speci men Type: BLOOD SPECIMEN Ordering Facility: [facility] Address: [address] [place] [address] Performed By: #### 2 4323-8, , 3 #### [facility] CLIA [id number] [address] STATES OF [facility] Protein [Mass/Vol] 5.6 g/dL Low 6.3-8.0 [facility] Comment on above: Order Comment: Speci men Type: BLOOD SPECIMEN Ordering Facility: [facility] Address: [address] [place] [address] Performed By: #### 2 4323-8, , 3 #### [facility] CLIA [id number] [address] [place] [address] STATES [facility] Sodium [Moles/Vol] 142 mmol/L Normal 136-144 [facility] Comment on above: Order Comment: Speci men Type: BLOOD SPECIMEN Ordering Facility: [facility] Address: [address] [place] [address] Performed By: #### 2 4323-8, , 3 #### [facility] CLIA [id number] [address] STATES OF [facility] Urea nitrogen [Mass/Vol] 11 mg/dL Normal 9-24 [facility] Comment on above: Order Comment: Speci men Type: BLOOD SPECIMEN Ordering Facility: [facility] Address: [address] [place] [address] Performed By: #### 2 4323-8, , 3 #### [facility] CLIA [id number] [address] [place] ECG COMPLETEon 01-08-2023 ECG COMPLETE Ventricular Rate : 8 7 BPM Atrial Rate : 87 BPM P-R Interval : 144 ms QRS Duration : 84 ms Q-T Interval : 352 ms QTC Calculation(Bazett) : 423 ms Calculated P Bluebell : 58 degrees Calculated R Bluebell : -45 degrees Calculated T Bluebell : 17 degrees NORMAL SINUS RHYTHM LEFT [...] INFERIOR LEADS Confirmed by MD JOAQUIN VINAY ([id number]) on 01/08/2023 3:41:29 PM NAME : ANJEL ROSS PID : [id number] : 1950 Gender : Male Race : ORD : [id number] Procedure Date : Jan 08 2023 03:21:39 [...] INFERIOR LEADS Confirmed by MD JOAQUIN VINAY ([id number]) on 01/08/2023 3:41:29 PM Test Reason : Arrhythmia Location : 91 : 9100 9101 Overread By : MD JOAQUIN VINAY Edited By : MD JOAQUIN VINAY Referred By : HILARIO MALIK Acquired by : LAKSHMI MOREAU [facility] HISTORY PHYSICALon 3 HISTORY PHYSICAL HNO ID: [id number] Author: Keron Dewey MD Service: General Internal Medicine Author Type: Physician Type: HANDP Filed: 01/08/2023 6:34 AM Note Text: DEPARTMENT OF HOSPITAL MEDICINE HISTORY AND PHYSICAL EXAM SERVICE DATE: 01/08/2023 SERVICE TIME: 1:26 AM Primary Care Physician: Maddie Cantor DO NIGHT AND WEEKEND COVERAGE: From 7am - 7pm, please call Sound After 7pm, please call cross cover pager #[phone] Subjective CHIEF COMPLAINT: Unsteady gait HPI: This is a 72 year old male [facility] resident with hx of anemia, CAD, hypothyroidism, HL, colon cancer, seizures, HTN, and KYA, who was admitted [facility] ago with generalized weakness [...] W/COLLJ SPEC WHEN PFRMD 03/25/2016 Colonoscopy outpt [facility] COLSC FLX W/REMOVAL LESION BY HOT BX [...] ANGIOPLASTY, ASHD Cancer Father LUNG Heart Father MO X 3 Heart Maternal Aunt MO Diabetes Maternal Aunt other (EPILEPSY) Paternal Grandfather [...] 1 tablet by mouth daily at bedtime. Hqvsg-5-FWN-EPA-Fish Oil 1,000 mg (120 mg-180 mg) cap [...] No Y (more content not included)... Normal [facility] Magnesium [Mass/Vol] 1.7 mg/dL Normal 1.7-2.3 [facility] Comment on above: Order Comment: Speci men Type: BLOOD SPECIMEN Ordering Facility: [facility] Address: [place] [address] Performed By: #### 2 4323-8, 31113-5, 3016-3 #### [facility] CLIA [id number] [address] OF [facility] NURSING PROGon 01-08-2023 NURSING PROG HNO ID: [id number] Author: Doug Suárez RN Service: Nursing Author Type: Registered Nurse Type: Nursing Progress Note Filed: 01/08/2023 5:29 PM Note Text: 01/08/2023 Nursing note: Notified Neurology AND attending of multiple attempts of obtaining blood (ammonia level) Multiple RN attempted This note was completed by: Doug Suárez RN Normal [facility] THERAPY NTon 01-08-2023 THERAPY NT HNO ID: [id number] Author: Almaz Falcon, SHIVA Service: Physical Therapy Author Type: Physical Therapist Type: Therapy (PT/OT/Speech/Resp) Filed: 01/08/2023 4:10 PM Note Text: Physical Therapy Evaluation SERVICE DATE: 01/08/2023 SERVICE TIME: 1445 to 1502 ROOM: [id number] Recommended Discharge Disposition: Home PT Recommended Discharge [...] Risk Current Hospital Course: Originally admitted at [facility] with general weakness and unsteady gait [...] Narrow Base of Support, Step length decreased JH-HLM: 7: Walk 25 feet or more Learning/Educational Needs: Discharge Plan, Functional Activities/Mobility, Plan of Care, Rehabilitation Techniques and Procedures, Safety Goals for Plan of Care: Patient/Caregiver Goals: Go Home Transfer Supine to/from Sit with: Stand By Assistance Transfer Sit to/from Stand with: Stand By Assistance Ambulate with: Stand By Assistance Distance: 50'x2 Device: Wheeled Walker Goal: Pt will complete x5 repeated ite-ne-ofvou transfers with SBA Rehab Potential: Good Patient [...] activity as (more content not included)... Normal [facility] THERAPY NT HNO ID: [id number] Author: Miquel Ellis OTR/L Service: Occupational Therapy Author Type: Occupational Therapist Type: Therapy (PT/OT/Speech/Resp) Filed: 01/08/2023 11:27 AM Note Text: Occupational Therapy Evaluation SERVICE DATE: 01/08/2023 SERVICE TIME: 839 to 907 ROOM: [id number] Recommended Discharge Disposition: Home OT Recommended Discharge [...] with: Patient (more content not included)... Normal [facility] TSH SerPl-aCncon 01-08-2023 TSH Qn 9.720 m[IU]/L High 0.270-4.[address] [facility] Comment on above: Order Comment: Devendra krishnamurthy Type: BLOOD SPECIMEN Ordering Facility: [facility] Address: [address] [place] [address] Performed By: #### 2 4323-8, 58964-8, 3016-3 #### [facility] CLIA [id number] [address] [place] [address] Valproate SerPl-mCncon 01-08 Valproate [Mass/Vol] 72.9 ug/mL Normal 50.0-100.0 [facility] Comment on above: Order Comment: Devendra krishnamurthy Type: BLOOD SPECIMEN Ordering Facility: [facility] Address: [address] [place] [address] Result Comment: Refe rence ranges and high/low indicator flags are provided as general guidelines only. The treating physician must determine appropriate target levels/dosing based on the specific clinical situation. Performed By: #### 4 086-5 #### [facility] CLIA [id number] [address] XR LUMBAR 3V AP/LAT/L5-S1on 01-08-2023 XR LUMBAR [...] Multilevel degenerative disc disease and facet arthropathy. Transitional Nurse: ELVIS Transcribe Date/Time: Jan 08 2023 2:00P Dictated by : REJI ARNETT MD This examination was interpreted and the report reviewed and electronically signed by: REJI ARNETT MD on Jan 08 2023 2:05PM EST [id number] Normal [facility] XR THORACIC 2V AP/LATon - XR THORACIC 2V AP/LAT * * *Final [...] report of the accompanying lumbar spine films. Transitional Nurse: ELVIS Transcribe Date/Time: Jan 08 2023 2:05P Dictated by : REJI ARNETT MD This examination was interpreted and the report reviewed and electronically signed by: REJI ARNETT MD on Jan 08 2023 2:07PM EST [id number] Normal [facility] Absolute lymphocyte countOrd ered By: Dr. Cannon on 01-07-2023 Lymphocytes Auto (Unsp spec) [#/Vol] 2.20 10*3/uL 0.83-4.51 [facility] Basophil percentageOrdered B y: Dr. Cannon on 01-07-2023 Basophils/100 WBC (Bld) 0.6 % 0-1 [facility] Chloride [Moles/Vol] 110 mmol/L 98-107 [facility] Eosinophils/100 WBC (Bld) 2.6 % 0-5 [facility] Glucose [Mass/Vol] 115 mg/dL 74-106 [facility] Comment on above: Fasting Glucose resu lt from 100 to 125 mg/dL suggests IMPAIRED HOMEOSTASIS per A.D.A. criteria. Neutrophils (Bld) [#/Vol] 3.0 10*3/uL 2.0-7.7 [facility] Neutrophils/100 WBC (Bld) 46.7 % 47-70 [facility] Potassium [Moles/Vol] 3.9 mmol/L 3.5-5.1 [facility] Sodium [Moles/Vol] 140 mmol/L 136-145 [facility] WBC (Bld) [#/Vol] 6.5 10*3/uL 4.4-11.0 [facility] Blood erythrocytes count (nu mber/volume)Ordered By: Dr. Cannon on 01-07-2023 RBC (Bld) [#/Vol] 3.61 10*6/uL 4.6-6.2 [facility] Blood hemoglobin measurement (mass/volume)Ordered By: Dr. Cannon on 01-07-2023 Hemoglobin (Bld) [Mass/Vol] 12.1 g/dL 13.0-16.5 [facility] Blood lymphocytes/100 leukoc ytesOrdered By: Dr. Cannon on 01-07-2023 Lymphocytes/100 WBC (Bld) 33.8 % 19-41 [facility] Blood monocytes/100 leukocyt esOrdered By: Dr. Cannon on 01-07-2023 Monocytes/100 WBC (Bld) 15.2 % 0-10 [facility] Blood platelet mean volumeOr dered By: Dr. Cannon on 01-07-2023 Platelet mean volume (Bld) [Entitic vol] 8.9 fL 6.2-12.0 [facility] Culture, urineOrdered By: Dr Shanthi Malik on 01-07-2023 Bacteria identified Cx Nom (U) Culture exhibits no growth. [facility] Determination of erythrocyte mean corpuscular volume (MCV)Ordered By: Dr. Cannon on 01-07-2023 MCV (RBC) [Entitic vol] 102.5 fL 80-94 [facility] Hematocrit Auto (Bld) [Volum e fraction]Ordered By: Dr. Cannon on 01-07-2023 Hematocrit (Bld) [Volume fraction] 37.0 % 40-54 [facility] - Chemistry and C hemistry - challengeOrdered By: Dr. Cannon on 01-07-2023 CO2 [Moles/Vol] 24.0 mmol/L 21.0-32.0 [facility] Urea nitrogen/Creatinine [Mass ratio] 27.1 mg/mg 10-20 [facility] - Hematology and Cell countsOrdered By: Dr. Cannon on 01-07-2023 Erythrocyte distribution width (RBC) [Entitic vol] 47.9 fL 35.1-43.9 [facility] Erythrocyte distribution width (RBC) [Ratio] 12.8 % 11.6-14.6 [facility] Immature granulocytes/100 WBC (Bld) 1.100 % 0.0-0.9 [facility] Comment on above: IG% - Immature Granu locytes (promyelocytes, myelocytes and metamyelocytes) > 1% indicates that a LEFT SHIFT is Present. MCH (RBC) [Entitic mass] 33.5 pg 27.0-32.0 [facility] Nucleated RBC/100 WBC (Bld) [Ratio] 0 % 0-5 [facility] MCHC Auto (RBC) [Mass/Vol]Or dered By: Dr. Cannon on 01-07-2023 MCHC (RBC) [Mass/Vol] 32.7 g/dL 32-36 [facility] No Panel InformationOrdered By: Dr. Cannon on 01-07-2023 Estimated Creatinine Clearance Calc 52.95 ml/min [facility] Estimated GFR (MDRD) Amer 242 mL/min >60 [facility] Comment on above: GFR Calc Estimated GFR (MDRD) Non-Af Amer 200 mL/min >60 [facility] Comment on above: Non- GFR Calc Platelets bldOrdered By: Dr. Cannon on 01-07-2023 Platelets (Bld) [#/Vol] 132 10*3/uL 150-450 [facility] Serum or plasma calcium minda urement (mass/volume)Ordered By: Dr. Cannno on 01-07-2023 Calcium [Mass/Vol] 8.8 mg/dL 8.5-10.1 [facility] Serum or plasma creatinine m easurement (mass/volume)Ordered By: Dr. Cannon on 01-07-2023 Creatinine [Mass/Vol] 0.44 mg/dL 0.70-1.30 [facility] Comment on above: The validity of the calculated GFR & GFRAA in patients over 70 years has not been determined. Clinical correlation is essential. Serum or plasma urea nitroge n measurement (mass/volume)Ordered By: Dr. Cannon on 01-07-2023 Urea nitrogen [Mass/Vol] 12 mg/dL 7-18 [facility] Thin prep Papanicolaou smear with manual screeningOrdered By: Dr. Cannon on 01-07-2023 Thin prep Papanicolaou smear with manual screening 6 5-15 [facility] Basophil percentageOrdered B y: Dr. Cannon on 01-06-2023 Basophil percentage 2.2 mg/dL 2.5-4.9 [facility] Laboratory - Chemistry and C hemistry - challengeOrdered By: Dr. Cannon on 01-06-2023 Magnesium [Mass/Vol] 2.0 mg/dL 1.6-2.6 [facility] Basophil percentageOrdered B y: Dr. Hooper on 01-05-2023 Bilirubin [Mass/Vol] 0.30 mg/dL 0.20-1.00 [facility] Comment on above: For patients on eltr ombopag therapy, use of Dimension [place] TBIL is not recommended. Protein [Mass/Vol] 5.5 g/dL 6.4-8.2 [facility] - Chemistry and C hemistry - challengeOrdered By: Dr. Hooper on 01-05-2023 ALP [Catalytic activity/Vol] 48 U/L 45-117 [facility] ALT [Catalytic activity/Vol] 8 U/L 16-61 [facility] Globulin (S) [Mass/Vol] 3.0 g/dL 2.2-4.2 [facility] No Panel InformationOrdered By: Dr. Hooper on 01-05-2023 Valproic Acid (Depakene) Level 57 ug/mL 50-100 [facility] Serum or plasma albumin minda urement (mass/volume)Ordered By: Dr. Hooper on 01-05-2023 Albumin [Mass/Vol] 2.5 g/dL 3.2-5.0 [facility] Serum or plasma albumin/glob ulin mass ratioOrdered By: Dr. Hooper on 01-05-2023 Albumin/Globulin [Mass ratio] 0.8 {ratio} 0.9-2.4 [facility] Thin prep Papanicolaou smear with manual screeningOrdered By: Dr. Hooper on 01-05-2023 Thin prep Papanicolaou smear with manual screening 15 U/L 15-37 [facility] Basophil percentageOrdered B y: Dr. Malik on 01-04-2023 Basophil percentage 0 SEEN /hpf 0-5 [facility] Bilirubin Test strip Ql (U)O rdered By: Dr. Malik on 01-04-2023 Bilirubin Ql (U) Negative Negative [facility] INR in Blood by Coagulation assayOrdered By: Dr. Malik on 01-04-2023 INR Coag (Bld) [Relative time] 1.0 {INR} [facility] Ketones Test strip Ql (U)Ord ered By: Dr. Malik on 01-04-2023 Ketones Ql (U) 5 mg/dl Negative [facility] - Chemistry and C hemistry - challengeOrdered By: Dr. Malik on 01-04-2023 Cobalamin (Vitamin B12) [Mass/Vol] 504 pg/mL 211-911 [facility] CK [Catalytic activity/Vol] 50 U/L 39-308 [facility] - CoagulationOrde red By: Dr. Malik on 01-04-2023 aPTT Coag (Bld) [Time] 24.4 s 24.1-36.2 [facility] PT Coag (PPP) [Time] 12.9 s 11.7-14.9 [facility] Mucus LM Ql (Urine sed)Order ed By: Dr. Malik on 01-04-2023 Mucus Ql (Urine sed) 0 SEEN /hpf [facility] Nitrite Test strip Ql (U)Ord ered By: Dr. Malik on 01-04-2023 Nitrite Ql (U) Negative Negative [facility] No Panel InformationOrdered By: Dr. Malik on 01-04-2023 Thyroid Stimulating Hormone (TSH) 3.10 uIU/mL 0.358-3.74 [facility] Troponin I High Sensitivity 6 pg/mL 3.0-78.0 [facility] Comment on above: Please Note: New Janice t Units and Gender Specific Reference Ranges. For more information see Policy Stat Procedure [place] High Sensitivity Troponin (TNIH) and attachments. Protein Test strip Ql (U)Ord ered By: Dr. Malik on 01-04-2023 Protein Ql (U) Negative Negative [facility] Serum or plasma folate measu rement (mass/volume)Ordered By: Dr. Malik on 01-04-2023 Folate [Mass/Vol] 9.80 ng/mL 3.1-55.4 [facility] Squamous epithelial cells de tection in urine sediment by light microscopyOrdered By: Dr. Malik on 01-04-2023 Epithelial cells.squamous LM Ql (Urine sed) 0 SEEN /hpf 0-5 [facility] Urine blood detectionOrdered By: Dr. Malik on 01-04-2023 RBC Ql (U) Negative Negative [facility] RBC Ql (U) 0 SEEN /hpf 0-5 [facility] Urine clarityOrdered By: Dr. Malik on 01-04-2023 Clarity (U) Clear Clear [facility] Urine color determinationOrd ered By: Dr. Malik on 01-04-2023 Color (U) Yellow Yellow [facility] Urine glucose detectionOrder ed By: Dr. Malik on 01-04-2023 Glucose Ql (U) Normal mg/dl Normal [facility] Urine leukocyte esterase det ection by dipstickOrdered By: Dr. Malik on 01-04-2023 Leukocyte esterase Test strip Ql (U) Negative Negative [facility] Urine pHOrdered By: Dr. Judd ne on 01-04-2023 pH (U) 8.0 [pH] 5.0 - 8.0 [facility] Urine sediment bacteria coun t by microscopy (number/high power field)Ordered By: Dr. Malik on 01-04-2023 Bacteria LM.HPF (Urine sed) [#/Area] 0 /[HPF] None Seen [facility] Urine specific gravity measu rementOrdered By: Dr. Malik on 01-04-2023 Specific gravity (U) [Rel density] 1.010 1.002-1.03 0 [facility] Urobilinogen Auto test strip Ql (U)Ordered By: Dr. Malik on 01-04-2023 Urobilinogen Ql (U) Normal mg/dl Normal [facility] Absolute lymphocyte countOrd ered By: Dr. Skaggs on 08-11-2022 Lymphocytes Auto (Unsp spec) [#/Vol] 1.27 10*3/uL 0.83-4.51 [facility] Basophil percentageOrdered B y: Dr. Skaggs on 08-11-2022 Basophils/100 WBC (Bld) 0.3 % 0-1 [facility] Chloride [Moles/Vol] 106 mmol/L 98-107 [facility] Eosinophils/100 WBC (Bld) 0.2 % 0-5 [facility] Glucose [Mass/Vol] 131 mg/dL 74-106 [facility] Comment on above: Fasting Glucose resu lt greater than or equal to 126 mg/dL suggests DIABETES MELLITUS per A.D.A. criteria. Neutrophils (Bld) [#/Vol] 11.5 10*3/uL 2.0-7.7 [facility] Neutrophils/100 WBC (Bld) 80.3 % 47-70 [facility] Potassium [Moles/Vol] 3.6 mmol/L 3.5-5.1 [facility] Sodium [Moles/Vol] 141 mmol/L 136-145 [facility] WBC (Bld) [#/Vol] 14.3 10*3/uL 4.4-11.0 [facility] Blood erythrocytes count (nu mber/volume)Ordered By: Dr. Skaggs on 08-11-2022 RBC (Bld) [#/Vol] 4.87 10*6/uL 4.6-6.2 [facility] Blood hemoglobin measurement (mass/volume)Ordered By: Dr. Skaggs on 08-11-2022 Hemoglobin (Bld) [Mass/Vol] 15.6 g/dL 13.0-16.5 [facility] Blood lymphocytes/100 leukoc ytesOrdered By: Dr. Skaggs on 08-11-2022 Lymphocytes/100 WBC (Bld) 8.9 % 19-41 [facility] Blood monocytes/100 leukocyt esOrdered By: Dr. Skaggs on 08-11-2022 Monocytes/100 WBC (Bld) 9.8 % 0-10 [facility] Blood platelet mean volumeOr dered By: Dr. Skaggs on 08-11-2022 Platelet mean volume (Bld) [Entitic vol] 8.8 fL 6.2-12.0 [facility] COVID-19 virus antigen assay Ordered By: Dr. Skaggs on 08-11-2022 SARS-CoV-2 (COVID-19) Ag IA.rapid Ql (Resp) [facility] Determination of erythrocyte mean corpuscular volume (MCV)Ordered By: Dr. Skaggs on 08-11-2022 MCV (RBC) [Entitic vol] 94.5 fL 80-94 [facility] Hematocrit Auto (Bld) [Volum e fraction]Ordered By: Dr. Skaggs on 08-11-2022 Hematocrit (Bld) [Volume fraction] 46.0 % 40-54 [facility] - Chemistry and C hemistry - challengeOrdered By: Dr. Skaggs on 08-11-2022 CO2 [Moles/Vol] 24.0 mmol/L 21.0-32.0 [facility] Urea nitrogen/Creatinine [Mass ratio] 11.9 mg/mg 10-20 [facility] - Drug toxicology Ordered By: Dr. Skaggs on 08-11-2022 Amphetamines Ql (U) Negative <1000 ng/mL [facility] Benzodiazepines Ql (U) Negative < 200 ng/mL [facility] Cannabinoids Screen Ql (U) Negative < 50 ng/mL [facility] Cocaine Ql (U) Negative < 300 ng/mL [facility] Opiates Ql (U) Negative < 300 ng/mL [facility] - Hematology and Cell countsOrdered By: Dr. Skaggs on 08-11-2022 Erythrocyte distribution width (RBC) [Entitic vol] 43.3 fL 35.1-43.9 [facility] Erythrocyte distribution width (RBC) [Ratio] 12.5 % 11.6-14.6 [facility] Immature granulocytes/100 WBC (Bld) 0.500 % 0.0-0.9 [facility] Comment on above: IG% - Immature Granu locytes (promyelocytes, myelocytes and metamyelocytes) > 1% indicates that a LEFT SHIFT is Present. MCH (RBC) [Entitic mass] 32.0 pg 27.0-32.0 [facility] Nucleated RBC/100 WBC (Bld) [Ratio] 0 % 0-5 [facility] MCHC Auto (RBC) [Mass/Vol]Or dered By: Dr. Skaggs on 08-11-2022 MCHC (RBC) [Mass/Vol] 33.9 g/dL 32-36 [facility] No Panel InformationOrdered By: Dr. Skaggs on 08-11-2022 MDMA (Ecstasy) Screen Negative < 500 ng/mL [facility] Urine Barbiturates Screen Negative < 200 ng/mL [facility] Urine Drug Screen Comment [facility] Comment on above: CONFIRMATORY TESTING FOR [...] Urine Methadone Screen Negative < 300 ng/mL [facility] Estimated Creatinine Clearance Calc 53.21 ml/min [facility] Estimated GFR (MDRD) Amer 93 mL/min >60 [facility] Comment on above: GFR Calc Estimated GFR (MDRD) Non-Af Amer 77 mL/min >60 [facility] Comment on above: Non- GFR Calc Ethyl Alcohol Level < 3.0 mg/dL [facility] Comment on above: The serum:whole bloo d ethanol ratio is approximately 1.14and varies slightly with hematocrit. Medical Alcohol reference interval and critical value innon-tolerant individuals; 50 - 100 Impairment 100 Intoxication 100 - 250 Severe Poisoning 250 - 400 Deep/possible fatal coma Platelets bldOrdered By: Dr. Skaggs on 08-11-2022 Platelets (Bld) [#/Vol] 205 10*3/uL 150-450 [facility] Serum or plasma calcium minda urement (mass/volume)Ordered By: Dr. Skaggs on 08-11-2022 Calcium [Mass/Vol] 9.3 mg/dL 8.5-10.1 [facility] Serum or plasma creatinine m easurement (mass/volume)Ordered By: Dr. Skaggs on 08-11-2022 Creatinine [Mass/Vol] 1.01 mg/dL 0.70-1.30 [facility] Comment on above: The validity of the calculated GFR & GFRAA in patients over 70 years has not been determined. Clinical correlation is essential. Serum or plasma urea nitroge n measurement (mass/volume)Ordered By: Dr. Skaggs on 08-11-2022 Urea nitrogen [Mass/Vol] 12 mg/dL 7-18 [facility] Thin prep Papanicolaou smear with manual screeningOrdered By: Dr. Skaggs on 08-11-2022 Thin prep Papanicolaou smear with manual screening 11 5-15 [facility] Urine phencyclidine (PCP) de tectionOrdered By: Dr. Skaggs on 08-11-2022 Phencyclidine Ql (U) Negative < 25 ng/mL [facility] CNOVon 07-31-2022 CNOV Office Visit (GENSWS ) ANJEL ROSS ([id number]) 1950 M NFR Date Time Provider Department 07/31/22 9:15 AM MATEO BENTON During your visit today, we recorded the following information about you: Mateo Benton III, MD 07/31/2022 9:27 AM Signed Subjective: Patient is status post a colonoscopy completed at [facility] on 07/06/2022. Patient was noted to [...] in 5 years. Referring Provider: MATEO BENTON [[id number]] Allergies As of Date: 07/31/2022 Noted Allergy [...] mg by mouth daily at bedtime. - Dvolw-5-CLK-EPA-Fish Oil 1,000 mg (120 mg-180 mg) cap [...] TAB Take one (1) tablet daily - tim (more content not included)... Normal [facility] 07-14-2022 [facility] Telephone ([employer]) ANJEL ROSS ([id number]) 1950 M [facility] Date Time Provider Department 07/14/22 MATEO BENTONS During your visit today, we recorded the following information about you: Silvia Bustamante Pss 07/14/2022 1:06 PM Signed Patient called requesting results from colonoscopy. Elizabeth Ruth LPN 07/14/2022 1:27 PM Signed Please call patient to schedule a virtual or office visit to view colonoscopy results. Thank you. Anjel# [phone] Georgie Alatorre Pss 07/14/2022 2:36 PM Addendum They will call back to schedule.Georgie Alatorre Pss Allergies As of Date: 07/14/2022 Noted Allergy [...] mg by mouth daily at bedtime. - Llwhn-6-YPF-EPA-Fish Oil (FISH OIL) 1,000 mg (120 mg-180 [...] initial [Z00.0 (more content not included)... Normal [facility] CNOVon 04-14-2022 CNOV Office Visit (GENSWS ) ANJEL ROSS ([id number]) 1950 [facility] Date Time Provider Department 04/14/22 8:30 AM [...] colonoscopy 03/26/[address] Anjel Nagy at [facility]. Patient was noted to have a [...] W/COLLJ SPEC WHEN PFRMD 03/25/16 Colonoscopy outpt [facility] - COLSC FLX W/REMOVAL LESION BY HOT [...] mg by mouth daily at bedtime. - Dqzgx-4-RTN-EPA-Fish Oil (FISH OIL) 1,000 mg (120 mg-180 [...] 3-4 ti (more content not included)... Normal [facility] Sophie 03-13-2022 [facility] Telephone (NE50MN) ANJEL ROSS ([id number]) 1950 M NFR Date Time Provider Department 03/13/22 ANNIA CHUNG NE50MN During your visit today, we recorded the following information about you: Imani Mejia 03/13/2022 11:11 AM Signed Medication Concern Person Calling Silvia Rehman from [facility] Name of medication Depakote XR. Concern with medication Nurse advised pt is having difficulty swallowing pill and since XR she can't crush. Nurse is asking if can get non XR or liquid so it's not difficult for pt? Patient of Dr. Sheldon Talley RN 03/13/2022 11:20 AM Signed Recent visit 03/06/22 [...] months Update forwarded for review. BYRON Saunders APRN.GUI DEVELOPER 03/13/2022 1:37 PM Signed The following approved medication requests have been transmitted electronically. Signed Prescriptions Disp Refills valproic acid (DEPAKENE) 250 mg/5 mL syrup 1800 mL 5 Sig: Take 20 mL by mouth three times daily. Authorizing Provider: MIQUEL OBREGON APRN.GUI DEVELOPER Dorothy Talley RN 03/13/2022 1:59 PM Signed Notified Silvia rx has been sent and a PA will be completed if needed. Dorothy Talley RN Allergies As of Date: 03/13/2022 Noted Allergy Reaction ASA (SALICYLATES) 06/13/2005 NICKEL 01/16/2013 2 - Rash TRILEPTAL (OXCARBAZEPINE) 06/13/2005 Date Reviewed: 11/11/2020 Reviewed by: Nancy Cervantes Ma - Fully Assessed Reason for Visit: Medication Question [1478] Cmt: Depakote XR Order(s):valproic acid (DEPAKENE) 250 [...] mg by mouth daily at bedtime. - Sejlp-6-DTF-EPA-Fish Oil (FISH OIL) 1,000 mg (120 mg-180 [...] 1 tablet (more content not included)... Normal [facility] 02-26-2022 [facility] Telephone (NE50MN) ANJEL ROSS ([id number]) 1950 M NFR Date Time Provider Department [...] REORDER CHERIE: No Authorizing Provider: MIQUEL OBREGON APRN.GUI DEVELOPER Allergies As of Date: 02/26/2022 Noted Allergy [...] mg by mouth daily at bedtime. - Ciuom-1-LMF-EPA-Fish Oil (FISH OIL) 1,000 mg (120 mg-180 [...] [E88.81] 01/19/2014 (more content not included)... Normal [facility] Vital Signs Date Time Vital Sign Value Performing Clinician Axel herrera 01-31-2025 11:23-0400 Body temperature 97.8 [degF] Dr. Avani Eduardo MD [facility] 01-31-2025 11:23-0400 Heart rate 87 /min Dr. Avani Eduardo MD [facility] 01-31-2025 11:23-0400 Respiratory rate 16 /min Dr. Avani Eduardo MD [facility] 01-31-2025 11:23-0400 SaO2% (BldA) [Mass fraction] 96 % Dr. Avani Eduardo [facility] 11-01-2024 10:46-0500 Body temperature 97.7 [degF] [place] [facility] 11-01-2024 10:46-0500 Diastolic blood pressure 73 mm[Hg] [facility] 11-01-2024 10:46-0500 Heart rate 74 /min [facility] 11-01-2024 10:46-0500 Respiratory rate 16 /min [facility] 11-01-2024 10:46-0500 SaO2% (BldA) [Mass fraction] 95 % [facility] 11-01-2024 10:46-0500 Systolic blood pressure 134 mm[Hg] [facility] 01-18-2023 14:37-0400 Body temperature 98.2 [degF] Dr. Maddie Cantor [facility] 01-18-2023 14:37-0400 Diastolic blood pressure 65 mm[Hg] Dr. Maddie Cantor [facility] 01-18-2023 14:37-0400 Heart rate 93 /min Dr. Maddie Cantor [facility] 01-18-2023 14:37-0400 Respiratory rate 18 /min Dr. Maddie Cantor [facility] 01-18-2023 14:37-0400 SaO2% (BldA) [Mass fraction] 94 % Dr. Maddie Cantor [facility] 01-18-2023 14:37-0400 Systolic blood pressure 114 mm[Hg] Dr. Maddie Cantor [facility] 01-18-2023 02:19-0400 Body mass index (BMI) [Ratio] 35.9 kg/m2 Dr. Maddie Cantor [facility] 01-18-2023 02:19-0400 Body weight 91.[address] Maddie Cantor [facility] 01-15-2023 11:23-0400 Body height 160.[address] Maddie Cantor [facility] 01-10-2023 09:36-0400 Body temperature 98 [degF] Dr. Maddie Cantor [facility] 01-10-2023 09:36-0400 Diastolic blood pressure 54 mm[Hg] Dr. Maddie Cantor [facility] 01-10-2023 09:36-0400 Heart rate 76 /min Dr. Maddie Cantor [facility] 01-10-2023 09:36-0400 Respiratory rate 16 /min Dr. Maddie Cantor [facility] 01-10-2023 09:36-0400 SaO2% (BldA) [Mass fraction] 97 % Dr. Maddie Cantor [facility] 01-10-2023 09:36-0400 Systolic blood pressure 107 mm[Hg] Dr. Maddie Cantor [facility] 01-10-2023 01:40-0400 Body height 160.[address] Maddie Cantor [facility] 01-10-2023 01:40-0400 Body mass index (BMI) [Ratio] 35.3 kg/m2 Dr. Maddie Cantor [facility] 01-10-2023 01:40-0400 Body weight 90.[address] Maddie Cantor [facility] 01-07-2023 16:25-0400 Body temperature 99 [degF] Dr. Maddie Cantor [facility] 01-07-2023 16:25-0400 Diastolic blood pressure 79 mm[Hg] Dr. Maddie Cantor [facility] 01-07-2023 16:25-0400 Heart rate 89 /min Dr. Maddie Cantor [facility] 01-07-2023 16:25-0400 Respiratory rate 16 /min Dr. Maddie Cantor [facility] 01-07-2023 16:25-0400 SaO2% (BldA) [Mass fraction] 98 % Dr. Maddie Cantor [facility] 01-07-2023 16:25-0400 Systolic blood pressure 114 mm[Hg] Dr. Maddie Cantor [facility] 01-07-2023 12:51-0400 Body mass index (BMI) [Ratio] 37.8 kg/m2 Dr. Maddie Cantor [facility] 01-06-2023 06:00-0400 Body weight 96.[address] Maddie Cantor [facility] 12-31-2022 07:42-0400 Diastolic blood pressure 72 mm[Hg] [facility] 12-31-2022 07:42-0400 Heart rate 69 /min [facility] 12-31-2022 07:42-0400 Respiratory rate 15 /min [facility] 12-31-2022 07:42-0400 SaO2% (BldA) [Mass fraction] 98 % [facility] 12-31-2022 07:42-0400 Systolic blood pressure 139 mm[Hg] [facility] 12-31-2022 06:02-0400 Body height 160.02 cm [facility] 12-31-2022 06:02-0400 Body mass index (BMI) [Ratio] 34.2 kg/m2 [facility] 12-31-2022 06:02-0400 Body temperature 97.2 [degF] [facility] 12-31-2022 06:02-0400 Body weight 87.7 kg [facility] 11-16-2022 19:04-0500 Diastolic blood pressure 69 mm[Hg] [facility] 11-16-2022 19:04-0500 Heart rate 88 /min [facility] 11-16-2022 19:04-0500 Respiratory rate 16 /min [facility] 11-16-2022 19:04-0500 SaO2% (BldA) [Mass fraction] 97 % [facility] 11-16-2022 19:04-0500 Systolic blood pressure 143 mm[Hg] [facility] 11-16-2022 18:12-0500 Body height 175.26 cm [facility] 11-16-2022 18:12-0500 Body mass index (BMI) [Ratio] 27.6 kg/m2 [facility] 11-16-2022 18:12-0500 Body temperature 98.1 [degF] [facility] 11-16-2022 18:12-0500 Body weight 84.9 kg [facility] 08-12-2022 13:43-0500 Diastolic blood pressure 85 mm[Hg] [facility] 08-12-2022 13:43-0500 Heart rate 75 /min [facility] 08-12-2022 13:43-0500 Respiratory rate 15 /min [facility] 08-12-2022 13:43-0500 SaO2% (BldA) [Mass fraction] 98 % [facility] 08-12-2022 13:43-0500 Systolic blood pressure 132 mm[Hg] [facility] 08-11-2022 14:37-0500 Body height 160.02 cm [facility] Work Phone: 08-11-2022 14:37-0500 Body mass index (BMI) [Ratio] 37.2 kg/m2 [facility] 08-11-2022 14:37-0500 Body temperature 97.6 [degF] [facility] 08-11-2022 14:37-0500 Body weight 95.25 kg [facility] 07-06-2022 17:01-0400 Body temperature 97.6 [degF] [facility] Work Phone: 07-06-2022 17:01-0400 Diastolic blood pressure 69 mm[Hg] [facility] Work Phone: 07-06-2022 17:01-0400 Heart rate 71 /min [facility] Work Phone: 07-06-2022 17:01-0400 Respiratory rate 18 /min [facility] Work Phone: 07-06-2022 17:01-0400 SaO2% (BldA) [Mass fraction] 97 % [facility] Work Phone: 07-06-2022 17:01-0400 Systolic blood pressure 126 mm[Hg] [facility] Work Phone: 07-06-2022 11:41-0400 Body height 160.02 cm [facility] Work Phone: 07-06-2022 11:41-0400 Body mass index (BMI) [Ratio] 35.9 kg/m2 [facility] Work Phone: 07-06-2022 11:41-0400 Body weight 92.07 kg [facility] Work Phone: Encounters Encounter Date Encounter Type Care Provider Facility Start: 05-01-2025 ambulatory Avani Eduardo Facility:[facility] Start: 04-24-2025 ambulatory [facility] Facility:[facility] Start: 04-03-2025 ambulatory [facility] Facility:[facility] Start: 02-28-2025 ambulatory [facility] Facility:[facility] Start: 02-13-2025 Non-patient / Non-visit Dr. Eris gracia MD -[facility] Start: 02-13-2025 End: 02-13-[address] Avani [facility] Work Phone: Start: 02-13-2025 End: 02-13-2025 Patient encounter procedure Kourtney SUERO -[facility] Work Phone: Start: 02-13-2025 End: 02-13-2025 ambulatory [facility] Facility[facility] Start: 02-01-[address] Avani Eduardo MD -[facility] Start: 01-31-2025 End: 01-31-2025 Patient encounter procedure Kourtney SUERO -[facility] Work Phone: Start: 01-31-2025 End: 02-01-2025 ambulatory [facility] Start: 01-05-2025 End: 01-05-[address] Avani Eduardo MD -[facility] Start: 01-05-2025 End: 01-05-2025 ambulatory [facility] Start: 01-03-2025 End: 01-03-[address] Avani Eduardo MD -[facility] Start: 01-02-2025 End: 01-03-2025 ambulatory [facility] Start: 01-02-[address] Avani Eduardo MD -[facility] Start: 12-06-2024 End: 12-06-2024 ambulatory [place] [facility] Work Phone: Start: 12-06-2024 End: 12-06-[address] Avani Eduardo MD -[facility] Start: 12-06-2024 End: 12-06-2024 ambulatory Avani MACIEL Facility[facility] Start: 11-01-2024 End: 11-01-2024 Patient encounter procedure Kourtney SUERO -[facility] Work Phone: Start: 11-01-2024 End: 11-01-2024 ambulatory Avani Eduardo Facility:[facility] Start: 10-05-2024 End: 10-05-[address] Avani Eduardo MD -[facility] Start: 10-05-2024 End: 10-05-2024 ambulatory Avani Eduardo Facility[facility] Start: 09-29-2024 End: 09-29-[address] Avani Eduardo MD -[facility] Start: 09-29-2024 End: 09-29-2024 ambulatory [facility] Facility[facility] Start: 08-01-2024 End: 08-01-2024 ambulatory [facility] Start: 06-28-2024 End: 06-28-2024 ambulatory [facility] Facility[facility] Start: 06-12-2024 ambulatory [place] [facility] Doctor Faci lity:[facility] Start: 05-03-2024 End: 05-03-2024 ambulatory [facility] Doctor Facility[facility] Start: 04-24-2024 End: 04-24-2024 ambulatory STANTON ANDREWS Not Available Start: 03-27-2024 End: 03-27-2024 ambulatory STANTON ANDREWS Not Available Start: 03-14-2024 End: 03-14-2024 ambulatory STANTON ANDREWS Not Available Start: 01-10-2024 End: 01-10-2024 ambulatory [facility] Work Phone: Start: 01-10-2024 End: 01-10-2024 Departed Referred [facility] Start: 01-10-2024 Registered Referred [facility] Start: 01-03-2024 End: 01-03-2024 ambulatory [facility] Work Phone: Start: 01-03-2024 End: 01-03-2024 Departed [facility]erred [facility] Start: 12-15-2023 End: 12-15-2023 ambulatory [facility] Work Phone: Start: 12-15-2023 End: 12-15-2023 Departed [facility]erred [facility] Start: 11-04-2023 End: 11-04-2023 ambulatory [facility] Work Phone: Start: 11-04-2023 End: 11-04-2023 Departed [facility] Start: 11-04-2023 Registered Referred [facility] Start: 10-20-2023 End: 10-20-2023 ambulatory [facility] Work Phone: Start: 10-20-2023 End: 10-20-2023 Departed [facility]erred [facility] Start: 10-11-2023 End: 10-11-2023 ambulatory [facility] Work Phone: Start: 10-11-2023 End: 10-11-2023 Departed [facility] Start: 10-11-2023 Registered Referred [facility] Start: 10-05-2023 End: 10-05-2023 ambulatory [facility] Work Phone: Start: 10-05-2023 End: 10-05-2023 Departed [facility] Start: 10-05-2023 Registered Referred [facility] Start: 09-22-2023 End: 09-22-2023 ambulatory [facility] Work Phone: Start: 09-22-2023 End: 09-22-2023 Departed [facility] Start: 09-22-2023 Registered Referred [facility] Start: 09-16-2023 End: 09-16-2023 ambulatory STANTON ANDREWS Not Available Start: 09-13-2023 End: 09-13-2023 ambulatory [facility] Work Phone: Start: 09-13-2023 End: 09-13-2023 Departed [facility] Start: 08-30-2023 End: 08-30-2023 ambulatory [facility] Work Phone: Start: 08-30-2023 End: 08-30-2023 Departed [facility] Start: 08-23-2023 End: 08-23-2023 ambulatory [facility] Work Phone: Start: 08-23-2023 End: 08-23-2023 Departed [facility] Start: 08-23-2023 Registered Referred [facility] Start: 05-24-2023 End: 05-24-2023 ambulatory [facility] Work Phone: Start: 05-24-2023 End: 05-24-2023 Departed [facility]erred [facility] Start: 02-16-2023 Registered Referred [facility] Start: 02-09-2023 End: 02-09-2023 Departed [facility] Start: 02-05-2023 End: 02-05-2023 Departed [facility] Start: 01-18-2023 Non-patient / Non-visit Dr. Nelson Cantor [facility] Start: 01-17-2023 Non-patient / Non-visit Dr. Nelson Cantor [facility] Start: 01-16-2023 Non-patient / Non-visit Dr. Nelson Cantor [facility] Start: 01-15-2023 Non-patient / Non-visit Dr. Nelson Cantor [facility] Start: 01-14-2023 Non-patient / Non-visit Dr. Nelson MACIEL [facility] Start: 01-13-2023 Non-patient / Non-visit Dr. Nelson Cantor [facility] Start: 01-12-2023 Non-patient / Non-visit Dr. Nelson Cantor [facility] Start: 01-11-2023 Non-patient / Non-visit Dr. Nelson MACIEL [facility] Start: 01-10-2023 End: 01-18-2023 Evaluation and management of inpatient Dr. Maddie MACIEL [facility] 3 Start: 01-10-2023 End: 01-18-[address] Maddie Cantor [facility] Work Phone: Start: 01-08-2023 End: 01-09-2023 Evaluation and management of inpatient MADDIE CANTOR Facility:[facility] Start: 01-07-2023 Non-patient / Non-visit Dr. Nelson MACIEL [facility] Start: 01-06-2023 Non-patient / Non-visit Dr. Nelson MACIEL [facility] Start: 01-05-2023 Non-patient / Non-visit Dr. Nelson Cantor [facility] Start: 01-04-2023 Non-patient / Non-visit Dr. Nelson Cantor [facility] Start: 01-04-2023 End: 01-07-2023 Evaluation and management of inpatient Dr. Maddie Cantor [facility]Progressive Care Unit Start: 12-31-2022 End: 12-31-2022 Emergency department [facility] visit [facility] Start: 11-16-2022 End: 11-16-2022 Emergency department patient visit [facility] Start: 09-29-2022 Refill Annia telles MD Work Phone: Neurology Comment on above: Refill Request Start: 08-11-2022 End: 08-12-2022 Emergency department patient visit [facility] Start: 07-31-2022 End: 07-31-2022 ambulatory MATEO BENTON Facility:[facility] Start: 07-31-2022 End: 07-31-2022 Patient encounter procedure Mateo Benton MD Work Phone: General Surgery Comment on above: Personal history of colon cancer (Primary Dx); History of colonic polyps Start: 07-14-2022 Telephone encounter Mateo crowder MD Work Phone: General Surgery Comment on above: Results Start: 07-06-2022 End: 07-06-2022 Admission to [facility] day [facility] Start: 07-06-2022 End: 07-06-2022 ambulatory [facility] Work Phone: Start: 04-14-2022 End: 04-14-2022 ambulatory [facility] SHARKEY [facility] Facility:[facility] Start: 03-13-2022 Telephone encounter Annia joe MD Work Phone: Neurology Comment on above: Medication Question (Depakote XR) Start: 03-06-2022 End: 03-10-2022 Telemedicine consultation with patient Nils Castañedakang [employer].GUI DEVELOPER Work Phone: [facility] Start: 03-06-2022 End: 03-10-2022 ambulatory Nils Roy Bina [employer].GUI DEVELOPER Work Phone: Neurology Comment on above: 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 Procedures Date Procedure Procedure Detail Performing Clinician Start: 01-16-2023 Plain chest X-ray Dr. Ruiz MACIEL Start: 01-10-2023 Plain chest X-ray Dr. Ruiz MACIEL Start: 01-05-2023 MRI of brain without contrast Dr. Maddie MACIEL Start: 01-05-2023 MRI of cervical spine Duane MACIEL Start: 01-04-2023 CT of head without contrast Dr. Maddie MACIEL Start: 01-04-2023 Plain chest X-ray Dr. Ruiz MACIEL Start: 12-31-2022 CT of head without contrast Start: 12-31-2022 X-ray of lumbar spin e, two or three views Start: 07-06-2022 Colonoscopy Start: 03-26-2017 Colonoscopy Miquel ruano [employer] UN[employer]ER.GUI DEVELOPER Work Phone: Bacteria identified in Urine by Culture Dr. Maddie MACIEL Urine culture Dr. Maddie MACIEL Viral antigen assay Viral antigen assay Plan of Treatment Date Care Activity Detail Author Start: 04-14-2023 BP CONTROLLED (<130/80) BP CONTROLLE D (<130/80) [facility] Start: 03-18-2023 DIABETES SCREEN DIABETES SCREEN [facility] Start: 01-18-2023 Patient discharge [facility] Start: 01-17-2023 [facility] Start: 01-16-2023 Speech therapy assessment [facility] Start: 01-15-2023 [facility] Start: 01-12-2023 Following clinical pathway protocol [facility] Start: 01-10-2023 Fall prevention [facility] Start: 01-10-2023 Provision of activit y privileges [facility] Start: 01-10-2023 Assessment of risk o f venous thromboembolism [facility] Start: 01-10-2023 Insertion of cathete r into peripheral vein [facility] Start: 01-10-2023 Providing care accor ding to standard [facility] Start: 01-10-2023 Referral to service [facility] Start: 01-10-2023 [facility] Start: 01-10-2023 Following clinical pathway protocol [facility] Start: 01-10-2023 Referral to occupati onal therapist [facility] Start: 01-10-2023 Referral to service [facility] Start: 01-10-2023 Admission procedure [facility] Start: 01-10-2023 Patient referral to dietitian [facility] Start: 01-07-2023 Patient discharge [facility] Start: 01-05-2023 Speech therapy assessment [facility] Start: 01-04-2023 Following clinical pathway protocol [facility] Start: 01-04-2023 Provision of activit y privileges [facility] Start: 01-04-2023 Aspiration precautions [facility] Start: 01-04-2023 Assessment of risk o f venous thromboembolism [facility] Start: 01-04-2023 Fall prevention [facility] Start: 01-04-2023 Insertion of cathete r into peripheral vein [facility] Start: 01-04-2023 Introduction of urin dinora catheter [facility] Start: 01-04-2023 Measuring intake and output [facility] Start: 01-04-2023 Providing care accor ding to standard [facility] Start: 01-04-2023 Referral to occupati onal therapist [facility] Start: 01-04-2023 Referral to service [facility] Start: 01-04-2023 Application of elast ic bandage [facility] Start: 01-04-2023 Continuous positive airway pressure ventilation treatment [facility] Start: 01-04-2023 Elevation of affecte d extremity [facility] Start: 01-04-2023 Neurological assessment [facility] Start: 01-04-2023 Wound care [facility] Start: 01-04-2023 End: 01-04-2023 [facility] Start: 01-04-2023 Admission procedure [facility] Start: 10-04-2022 ADVANCE DIRECTIVE DISCUSSION ADVANCE DIRECTIVE DISCUSSION [facility] Start: 08-11-2022 Referral to service [facility] Start: 08-11-2022 End: 08-11-2022 Suicide precautions [facility] Start: 07-06-2022 Colsc flx w/rmvl of tumor polyp lesion snare tq COLONOSCOPY W/LESION REMOVAL [facility] Work Phone: Start: 07-06-2022 Patient discharge [facility] Work Phone: Start: 06-27-2022 COVID-19 VACCINE (4 - Booster for Moderna series) COVID-19 VACCINE (4 - Booster for Moderna series) [facility] Start: 06-04-2022 Influenza vaccination C [facility] Start: 04-21-2022 COVID-19 VACCINE (4 - Booster for Moderna series) COVID-19 VACCINE (4 - Booster for Moderna series) [facility] Start: 03-10-2022 End: 05-10-2022 Comprehensive metabolic 2000 panel - Serum or Plasma COMP METABOLIC PANEL Lab Routine 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) Expected: 03/10/2022, Expires: 05/10/2022 [facility] Work Phone: Comment on above: Expected: 03/10/2022 , Expires: 05/10/2022 Start: 03-10-2022 End: 05-10-2022 levETIRAcetam [Mass/volume] in Serum or Plasma LEVETIRACETAM Lab Routine 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) Expected: 03/10/2022, Expires: 05/10/2022 [facility] Work Phone: Comment on above: Expected: 03/10/2022 , Expires: 05/10/2022 Start: 03-10-2022 End: 05-10-2022 VALPROIC A/DEPAKENE VALPROIC A/DEPAKENE Lab Routine 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) Expected: 03/10/2022, Expires: 05/10/2022 [facility] Work Phone: Comment on above: Expected: 03/10/2022 , Expires: 05/10/2022 Start: 10-04-2021 ADVANCE DIRECTIVE DISCUSSION ADVANCE DIRECTIVE DISCUSSION [facility] Start: 11-20-2020 COVID-19 VACCINE (2 - Moderna 3-dose series) COVID-19 VACCINE (2 - Moderna 3-dose series) [facility] Start: 10-22-2020 LIPID SCREEN LIPID SCREEN [facility] Start: 03-26-2018 Colonoscopy COLONOSCOPY [facility] Start: 03-26-2018 COLORECTAL CANCER SCREENING COLORECTAL CANCER SCREENING [facility] Start: 09-19-2016 FECAL OCCULT BLOOD FECAL OCCULT BLOO D [facility] Start: 11-02-2015 PNEUMOCOCCAL: 65+ (#3) PNEUMOCOCCAL: 65+ (#3) [facility] Start: 11-02-2015 PNEUMOCOCCAL: 65+ (2 - PPSV23 or PCV20) PNEUMOCOCCAL: 65+ (2 - PPSV23 or PCV20) [facility] Start: 07-30-2015 SHINGRIX VACCINE (2 of 3) PALMA GRIX VACCINE (2 of 3) [facility] Start: 2014 PNEUMOVAX AGE 65 AND OVER WITH 5YR LOOKBACK (#1) PNEUMOVAX AGE 65 AND OVER WITH 5YR LOOKBACK (#1) [facility] Start: 06-06-2006 Urine microalbumin profile DTAP,TDAP,TD (1 - Tdap) [facility] Start: 1994 COLOGUARD (FIT-DNA) COLOGUARD (FIT-D NA) [facility] Start: [address] COLONOGRAPHY [facility] Start: 1994 SIGMOIDOSCOPY SIGMOIDOSCOPY [facility] Start: 1967 ANNUAL PCP TEAM [employer] MANAGER RODNEY DISEASE VISIT ANNUAL PCP TEAM CHRONIC DISEASE VISIT [facility] Start: 1967 BP CONTROLLED (<130/80) BP CONTROLLE D (<130/80) [facility] Start: 1967 HEPATITIS C SCREENING HEPATITIS C [facility] Patient Education [facility] Work Phone: Patient referral [facility] Work Phone: [facility] Immunizations Immunization Date Immunization Notes Care Provider Sharron liu 07-21-2022 influenza, injectabl e, quadrivalent, preservative free [facility] 07-21-2022 influenza, seasonal, injectable Dr. Maddie Cantor [facility] 02-24-2022 Covid (Moderna) Dr. Maddie Cantor [facility] 11-18-2020 Covid (Moderna) Dr. Maddie Cantor [facility] 10-23-2020 Covid (Moderna) Dr. Maddie Cantor [facility] 07-26-2015 influenza, high dose seasonal, preservative-free Miquel Obregon CONCRETE BUCKET UNLOADER.GUI DEVELOPER Work Phone: [facility] 06-04-2015 zoster vaccine, live Miquel guthrie CONCRETE BUCKET UNLOADER.GUI DEVELOPER Work Phone: [facility] 11-02-2014 pneumococcal conjuga te vaccine, 13 valent Miquel Obregon CONCRETE BUCKET UNLOADER.GUI DEVELOPER Work Phone: [facility] 08-04-2014 Influenza virus vaccine [facility] 08-02-2014 influenza, seasonal, injectable Miquel Obregon CONCRETE BUCKET UNLOADER.GUI DEVELOPER Work Phone: [facility] 07-14-2013 influenza virus vacc ine, unspecified formulation Miquel Obregon CONCRETE BUCKET UNLOADER.GUI DEVELOPER Work Phone: [facility] 06-05-2006 tetanus and diphther ia toxoids, adsorbed, preservative free, for adult use (2 Lf of tetanus toxoid and 2 Lf of diphtheria toxoid) Miquel Obregon CONCRETE BUCKET UNLOADER.GUI DEVELOPER Work Phone: [facility] 07-30-2005 influenza virus vacc ine, unspecified formulation Miquel Obregon CONCRETE BUCKET UNLOADER.GUI DEVELOPER Work Phone: [facility] Work Phone: 06-13-2005 tetanus and diphther ia toxoids, adsorbed, preservative free, for adult use (2 Lf of tetanus toxoid and 2 Lf of diphtheria toxoid) Miquel Obregon CONCRETE BUCKET UNLOADER.GUI DEVELOPER Work Phone: [facility] Work Phone: 09-11-1997 pneumococcal polysaccharide vaccine, 23 valent Miquel Obregon CONCRETE BUCKET UNLOADER.GUI DEVELOPER Work Phone: [facility] Work Phone: Payers Date Payer Category Payer Unknown [id number] 2024 Self-pay [id number] 2024 Unknown [id number] 2023 Medicare [id number] 2017 Medicaid [facility] MEDICA[facility] MEDICA[facility] [id number] 2017-Present [phone] [address] [place] [address] Medicaid [id number] 2017 Medicaid UHC MEDICAID [facility] MEDICAID [id number] 2017-Present [phone] [address] [place] [address] Medicaid [id number] 2017 Medicare [id number] 2017 Unknown [id number] 1950 Unknown [id number] [id number] 1950 Unknown [id number] 2.0.1.682807.3.579.2.1259 1949 Unknown [id number] 2.840.1.643453.3.579.2.1259 1949 Unknown [id number] 2.16.840.1.221336.3.579.2.1259 Medicare [id number] Medicare MEDICARE PART A B [id number] Unknown [id number] 2.16840.1.544003.3.579.2.462 Unknown [id number] 2.16.840.1.963776.3.579.2.462 Unknown [id number] 2.16.840.1.783849.3.579.2.462 Unknown [id number] 2.16840.1.271115.3.579.2.462 Unknown [id number] 2.16840.1.325989.3.579.2.462 Unknown [id number] 2.16.840.1.567104.3.579.2.462 Unknown [id number] 2.16.840.1.544657.3.579.2.462 Unknown [id number] 2.16.840.1.688636.3.579.2.462 Unknown [id number] 2.16.840.1.649704.3.579.2.462 Unknown [id number] 2.16.840.1.354565.3.579.2.462 Unknown [id number] 2.16.840.1.307658.3.579.2.462 Unknown [id number] 2.16.840.1.553473.3.579.2.462 Unknown [id number] 2.16.840.1.235736.3.579.2.462 Unknown [id number] 2.16.840.1.456993.3.579.2.462 Unknown [id number] 2.16.840.1.952570.3.579.2.462 Unknown [id number] 2.16.840.1.974646.3.579.2.462 Unknown [id number] 2.16.840.1.350508.3.579.2.462 Unknown [id number] 2.16840.1.765373.3.579.2.462 Unknown [id number] 2.16840.1.813941.3.579.2.462 Social History Date Type Detail Facility Start: 07-31-2015 End: 01-10-2023 Tobacco smoking status NHIS Never smoked tobacco [facility] Start: 11-11-2020 End: 07-31-2022 Alcohol intake Current non-drinker of alcohol (finding) [facility] Start: 1950 Sex Assigned At Not on file C [facility] Start: 01-17-2022 End: 07-31-2022 Exposure to SARS-CoV-2 (event) Not sure [facility] Start: 07-01-2022 End: 01-10-2023 Tobacco smoking status NHIS Unknown if ever smoked [facility] Start: 04-14-2022 None [facility] Start: 07-11-2019 - [facility] Start: 04-14-2022 Non-smoker [facility] Start: 1950 Sex Assigned At Male [facility] Start: 07-31-2015 Tobacco use and exposure Smokeless tobacco non-user [facility] Start: 01-02-2025 Sex Male (finding) [facility] Goals Date Patient Goal Desired Activity /State Functional Status Date Assessment Result Facility 01-18-2023 Functional status Chair [facility] Work Phone: 01-07-2023 Functional status Activity Abili ty With Assist of 1 [facility] Work Phone: 01-06-2023 Functional status Ambulates [facility] Work Phone: Mental Status Date Assessment Result Facility 01-18-2023 Cognitive function Voice/Name [facility] Work Phone: 01-10-2023 Cognitive function Level Of Cons ciousness Awake;Alert;Appropriate;Follow s Commands [facility] Work Phone: 01-07-2023 Cognitive function Voice/Name [facility] Work Phone: 07-06-2022 Cognitive function Drowsy [facility] Work Phone: 07-06-2022 Cognitive function Arousable To Voice/Nam e [facility] Work Phone: Clinical Notes 01-28-2016 to 11-01-2024 Note Date & Type Note Facility 11-01-2024 Evaluation note Diagnosis Onset Date Resolution Bilateral lower extremity edema acute November 01 10:09am PVD (peripheral vascular disease) acute November 01, 2024 10:09am [facility] Work Phone: 1(387) 549-870301-29-2025 Evaluation note* Diagnosis Onset Date Resolution Status Admit Date Bilateral lower extremity edema acute November 01 10:09am PVD (peripheral vascular disease) acute November 01 10:09am Bilateral lower extremity edema acute January 31, 2025 11:04am PVD (peripheral vascular disease) acute January 31, 2025 11:04am [facility] Work Phone: 1(803) 742-294804-17-[address] Recio [facility] January 18, 2023 2:44pm Note Date/Time January 18, 2023 2:4 4pm [facility] Medical Records Department [address] [place] [address] Discharge Summary 01/18/23 1438 MR#: [id number] Acct: [id number] Name: ANJEL ROSS Rep #:[id number] : 1950 72 From: Kary Recio MD PCP: NILS CANTOR Status:ADM PAIGE Location: [place] [address] Providers Date of Admission: 01/10/23 Date of [...] he had NPH and so was transferred [facility] recently. * He was reviewed there and [...] was confirmed from documentation he brought from [facility]. * Total iemx-dc-effo time 17 minutes. Total time spent on [...] 270 mg PO DAILY supplement 01/10/23 omega 7-qhl-eko-fish oil 1,000 mg (120 mg-180 mg) capsule [...] valproic acid levels. He was transferred to [facility] where his symptoms were thought to be [...] but this improved. Patient was called for senior care and was discharged to the custodial facility on 01/18/2023. He was discharged on p.o. lactulose. He is to follow-up with his primary care doctor and is to have monitoring of his ammonia level in the senior care. Was referred to gastroenterology on outpatient basis [...] (Auto) 44.0 L, Lymph % (Auto) 38.8, Bucks % (Auto) 13.7 H, Eos % (Auto) [...] mg Capsule 200 mg PO TID omega 9-per-aob-fish oil 1,000 mg (120 mg-180 mg) Capsule 1 cap PO BID ferrous gluconate 270 mg (27 mg iron) Tablet 270 mg PO DAILY Discontinued acetaminophen 325 mg tablet 1,300 mg PO BID Label Comments: 4 TABLETS (1300MG) [facility] / DX:E Referrals / Follow Up: NILS CANTOR [Other] NILS CANTOR [Other] Doctor,Your [Non-Staff] - 1 Day for another exam Disposition Disposition (needs filled in before D/C Order can be placed): [facility] Charges/Coding Visit Charges Inpatient E&M: 65460 Disch Hosp >30min 01/18/23 1444 <Electronically signed by Kary Recio MD> Cosigner Signature (if applicable): CC: Dr. Kary Recio MD; NILS CANTOR~ Signed [facility] Work Phone: 1(404) 467-743204-17-[address] [facility] January 18, 2023 2:38pm Note Date/Time January 18, 2023 2:3 8pm [facility] Medical Records Department [address] [place] [address] [facility] MR#: [id number] Acct: [id number] Name: ANJEL ROSS Rep #:[id number] : 1950 72 From: Kary Recio MD PCP: NILS CANTOR Status:ADM PAIGE Certification of patient admission REQUIRED AT TIME OF ADMISSION. I CERTIFY THAT POST-HOSPITAL ECF SERVICES ARE REQUIRED TO BE GIVEN ON AN IN-PATIENT BASIS BECAUSE OF THE ABOVE NAMED PATIENT'S NEED FOR SNF CARE ON A CONTINUING BASIS FOR THE [...] he had NPH and so was transferred [facility] recently. * He was reviewed there and [...] was confirmed from documentation he brought from [facility]. * Total ufqa-fq-vtte time 17 minutes. Total time spent on [...] mg Capsule 200 mg PO TID omega 4-aky-meh-fish oil 1,000 mg (120 mg-180 mg) Capsule 1 cap PO BID ferrous gluconate 270 mg (27 mg iron) Tablet 270 mg PO DAILY Discontinued acetaminophen 325 mg tablet 1,300 mg PO BID Label Comments: 4 [facility]1300[facility] / DX:E Referrals / Follow Up: NILS CANTOR [Other] NILS CANTOR [Other] Doctor,Your [Non-Staff] - 1 Day for another exam Disposition Disposition (needs filled in before D/C Order can be placed): [facility] 01/18/23 1438 <Electronically signed by Kary Recio MD> Cosigner Signature (if applicable): CC: Dr. Kary Recio MD; Dr. Nina Wilder MD; NILS CANTOR ~ [facility] Work Phone: 1(118) 540-919404-16-[address] Wilder [facility] January 17, 2023 3:08pm Note Date/Time January 17, 2023 7:4 6am [facility] Medical Records Department [facility] [place] [address] Progress Note - Hospitalist 01/17/23 0746 MR#: [id number] Acct: [id number] Name: ANJEL ROSS Rep #:[id number] : 1950 72 From: Nina Wilder MD PCP: NILS CANTOR Status:ADM PAIGE Location: [place] [id number] Reason for Visit Reason for Visit: Diagnoses [...] 41.2 L, Lymph % (Auto) 41.7 H, Bucks % (Auto) 13.0 H, Eos % (Auto) [...] Signed: Ben Fraire MD at 14:28 EDT Reading Location ID and State: [address] [place] [address] , Service support , Rhythm Strip Rhythm [...] [facility]. -He was reviewed there and the symptoms [...] 30 mins Charges/Coding Visit Charges Inpatient E&M: 90535 Subs Hosp L2 01/17/23 1508 <Electronically signed by Nina Wilder MD> Cosigner Signature (if applicable): CC: ~ Signed [facility] Work Phone: [phone]) 867-536704-15-[address] Wilder [facility] January 16, 2023 11:52am Note Date/Time January 16, 2023 10: 27am [facility] Medical Records Department [address] [place] [address] Progress Note - Hospitalist 01/16/23 1026 MR#: [id number] Acct: [id number] Name: ANJEL ROSS Rep #:[id number] : 1950 72 From: Nina Wilder MD PCP: NILS CANTOR Status:ADM PAIGE Location: [place] [address] Reason for Visit Reason for Visit: Diagnoses [...] Neut % (Auto) 47.5, Lymph % (Auto)36.4, Bucks % (Auto) 12.1 H, Eos % (Auto) [...] for their facility after his [facility] -PT recommends rehab/snf/tcu -Given mental health [...] he had [facility] and [facility]. -He was reviewed there and the symptoms [...] 30 mins Charges/Coding Visit Charges Inpatient E&M: 08618 Subs Hosp L2 01/16/23 1152 <Electronically signed by Nina Wilder MD> Cosigner Signature (if applicable): CC: ~ Signed [facility] Work Phone: 1(232) 250-595604-14-[address] Wilder [facility] January 15, 2023 9:43am Note Date/Time January 15, 2023 9:4 3am [facility] Medical Records Department [address] [place] [address] Progress Note - Hospitalist 01/15/23 0941 MR#: [id number] Acct: [id number] Name: ANJEL ROSS Rep #:[id number] : 1950 72 From: Nina Wilder MD PCP: NILS CANTOR Status:ADM PAIGE Location: [place] [address] Reason for Visit Reason for Visit: Diagnoses [...] Intake and Output for Last 24 Hours 04/12/23 04/13/23 04/14/23 23:59 23:59 23:59 Intake Total 1380 / [...] H, RDW Coeff of Ronna 13.2, Plt Ibokp159, MPV 8.4, Immature Gran % (Auto) 1.600 H, Neut % (Auto) 49.3, Lymph % (Auto)34.4, Bucks % (Auto) 12.8 H, Eos % (Auto) [...] for their facility after his [facility]/c [facility] -PT recommends rehab/snf/tcu -Given mental health [...] he had [facility] and [facility]. -He was reviewed there and the symptoms [...] 20 mins Charges/Coding Visit Charges Inpatient E&M: 43473 Subs Hosp L1 01/15/23 0943 <Electronically signed by Nina Wilder MD> Cosigner Signature (if applicable): CC: ~ Signed [facility] Work Phone: 1(537) 994-668604-13-[address] Wilder [facility] January 14, 2023 1:37pm Note Date/Time January 14, 2023 8:3 9am [facility] Medical Records Department [address] [place] [address] Progress Note - Hospitalist 01/14/23 0838 MR#: [id number] Acct: [id number] Name: ANJEL ROSS Rep #:[id number] : 1950 72 From: Nina Wilder MD PCP: NILS CANTOR Status:ADM PAIGE Location: [address] Reason for Visit Reason for Visit: Diagnoses [...] for their facility after his d/[facility] -PT recommends rehab/snf/tcu -Given mental health [...] he had [facility] and [facility]. -He was reviewed there and the symptoms [...] 20 mins Charges/Coding Visit Charges Inpatient E&M: 25992 Subs Hosp L1 01/14/23 2553 <Electronically signed by Nina Wilder MD> Cosigner Signature (if applicable): CC: ~ Signed [facility] Work Phone: 1(745) 222-620004-12-[address] Wilder [facility] January 13, 2023 9:59am Note Date/Time January 13, 2023 9:5 9am [facility] Medical Records Department [address] [place] [address] Progress Note - Hospitalist 01/13/23 0956 MR#: [id number] Acct: [id number] Name: ANJEL ROSS Rep #:[id number] : 1950 72 From: Nina Wilder MD PCP: NILS CANTOR Status:[facility]M PAIGE [facility] Reason for Visit Reason for Visit: Diagnoses [...] for their facility after his d[facility] -PT recommends rehab/snf/tcu -Given mental health [...] he had [facility] and [facility]. -He was reviewed there and the symptoms [...] 30 mins Charges/Coding Visit Charges Inpatient E&M: 86546 Subs Hosp L2 01/13/23 0959 <Electronically signed by Nina Wilder MD> Cosigner Signature (if applicable): CC: ~ Signed [facility] Work Phone: 1(979) 991-600304-11-[address] Wilder [facility] January 12, 2023 8:57am Note Date/Time January 12, 2023 8:5 7am [facility] Medical Records Department [address] [place] [address] Progress Note - Hospitalist 01/12/23 0853 MR#: [id number] Acct: [id number] Name: JESSICAANJEL Rae Rep #:[id number] : 1950 72 From: Nina Wilder MD PCP: NILS CANTOR Status:ADM PAIGE Location: [place] FJ031-4 Reason for Visit Reason for Visit: Diagnoses [...] % (Auto) 37.3 L, Lymph % (Auto)40.6, Bucks % (Auto) 17.9 H, Eos % (Auto) [...] for their facility after his [facility] -PT recommends rehab/snf/tcu -Given mental health [...] he had [facility] and [facility]. -He was reviewed there and the symptoms [...] 30 mins Charges/Coding Visit Charges Inpatient E&M: 49730 Subs Hosp L2 01/12/23 0857 <Electronically signed by Nina Wilder MD> Cosigner Signature (if applicable): CC: ~ Signed [facility] Work Phone: 1(591) 364-227804-10-[address] [facility] January 11, 2023 5:37pm Note Date/Time January 11, 2023 7:2 1am [facility] Medical Records Department [address] [place] [address] Progress Note - Hospitalist 01/11/23720 MR#: [id number] Acct: [id number] Name: ANJEL ROSS Rep #:[id number] : 1950 72 From: Nina Wilder MD PCP: NILS CANTOR Status:ADM PAIGE Location: [place] [id number] Reason for Visit Reason for Visit: Diagnoses [...] % (Auto) 44.8 L, Lymph % (Auto)35.5, Bucks % (Auto) 16.0 H, Eos % (Auto) [...] for their facility after his [facility] -PT recommends rehab/snf/tcu -Given mental health [...] he had [facility] and [facility]. -He was reviewed there and the symptoms [...] 30 mins Charges/Coding Visit Charges Inpatient E&M: 26502 Subs Hosp L2 01/11/23 9749 <Electronically signed by Nina Wilder MD> Cosigner Signature (if applicable): CC: ~ Signed [facility] Work Phone: 1(737) 960-916504-09-2023 History and physical note Author Dr. Recio [facility] January 10, 2023 3:34pm Note Date/Time January 10, 2023 9:22 am [facility] Medical Records Department [address] [place] [address] H&P Exam - Hospitalist 01/10/23 0911 MR#: [id number] Acct: [id number] Name: ANJEL ROSS Rep #:[id number] : 1950 72 From: Kary Recio MD PCP: NILS CANTOR Status:ADM PAIGE Location: [facility] TN180-9 HPI - General General Date of Admission: [...] valproic acid levels. He was transferred to [facility] where his symptoms were thought to be [...] and generalized weakness and is for placement. [facility] Medical History Anxiety Benign essential HTN BPH [...] DAILY supplement 01/10/23[History Last Taken Unknown] omega 6-xcl-pcb-fish oil 1,000 mg (120 mg-180 mg) capsule [...] Neut % (Auto) 53.9, Lymph % (Auto)25.6, Bucks % (Auto) 16.6 H, Eos % (Auto) [...] Clarity Clear, Urine pH 6.0, Ur Specific [place] 1.015, Urine Protein 15 H, Urine Glucose [...] 4:01 EDT Reading Location ID and State: [facility] / [place] , Service support , Assessment & Plan [...] he had NPH and so was transferred [facility] recently. * He was reviewed there and [...] confirmed from documentation he brought from [facility]. * Total uwdm-ag-oiys time 17 minutes. Total time spent on evaluation and management of patient, reviewing chart, discussing plan with patient, discussion with nursing and ancillary staff as well as documentation: 60 mins Charges/Coding Visit Charges Inpatient E&M: 90279 Init Hosp L2 Procedures Hospitalists Procedures: 45131 Advncd Care Plan 30 Min 01/10/23 1534 <Electronically signed by Kary Recio MD> Cosigner Signature (if applicable): CC: Dr. Kary Recio MD; NILS CANTOR~ Signed [facility] Work Phone: 1(466) 913-791104-09-2023 Discharge summary Author Sueus Avila [facility] January 10, 2023 9:31am Note Date/Time January 10, 2023 3:30 am [facility] Medical Records Department [address] [place] [address] Emergency Department Summary 01/10/23 MR#: [id number] Acct: [id number] Name: ANJEL ROSS Rep #:[id number] : 1950 72 From: Hilario Malik MD PCP: NILS CANTOR Status:REG ER Location: ED ADDENDUM by Dr. Breana Avila DO on 01/10/23 at 0931 [facility] staff called into the ER to say that they cannot accept patient back to their facility as he is high risk for falls and too weak to go back to their facility it was felt he needed admitted and evaluated for custodial facility placement. Case discussed with hospitalist to evaluate patientfor admission. 01/10/23 0931<Electronically signed by Breana Avila DO> Cosigner Signature (if applicable): cc: NILS CANTOR ~* Signed HPI History of Present Illness Chief Complaint: Weakness Informant: patient and EMS Narrative Narrative: Patient sent here from assisted [facility] for weakness around 2-3 AM. No one [...] in person neurology, he was sent to [facility] they excepted him, they did not think he had NPH but rather that his ataxia was related to his high valproate levels. They recommended he be on valproic acid 1000 mg 3 times daily, and Keppra 1500 mg twice daily for his epilepsy. Apparently he just arrived back to [facility] from [facility] past day. There is no other information available at this time. The patient denies having any focal complaints. He initially thought he was at [facility], but he was redirectable and Tram was his second guess. 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 His urinalysis is negative for infection and [...] a higher level of care like a custodial facility and he states no that he [...] % (Auto) 53.9 Lymph % (Auto) 25.6 Bucks % (Auto) 16.6 H Eos % (Auto) [...] Color Urine Clarity Urine pH Ur Specific [place] Urine Protein Urine Glucose (UA) Urine Ketones [...] (Auto) Neut % (Auto) Lymph % (Auto) Bucks % (Auto) Eos % (Auto) Baso % (Auto) Absolute Neuts (auto) Absolute Lymphs (auto) Nucleated RBC % Macrocytosis Sodium Potassium Chloride Carbon Dioxide Anion Gap BUN Creatinine Estim Creat Clear Calc Est GFR (MDRD) Af Amer Est GFR (MDRD) Non-Af BUN/Creatinine Ratio Glucose Calcium Troponin I High Sens Urine Color Yellow Urine Clarity Clear Urine pH 6.0 Ur Specific [place] 1.015 Urine Protein 15 H Urine Glucose [...] 4:01 EDT Reading Location ID and State: [facility] / [place] , Service support , Rhythm Strip Rhythm [...] capsule 10 mg PO QHS bismuth subsalicylate [Cushman Bismuth] 262 mg/15 mL suspension 524 mg [...] offered higher level of care such as custodial, and he declined/refuses. Ambulatory in ED with a walker at baseline. Disposition Disposition: Home, Self Care What to do if you have Problems For any increased pain, shortness of breath, bleeding, nausea or vomiting, chestpain, or any unexpected problems, contact your Primary Care Provider. Call [facility] ([phone]) or report to the closest Emergency Room. Call 911 if necessary. 01/10/23 0711 <Electronically signed by Hilario Malik MD> Cosigner Signature (if applicable): CC: NILS CANTOR ~ Signed [facility] Work Phone: 1(975) 952-855104-09-2023 Discharge summary Author Breana Avila [facility] January 10, 2023 9:31am Note Date/Time January 10, 2023 3:30 am [facility] Medical Records Department [address] [place] [address] Emergency Department Summary 01/10/23 MR#: [id number] Acct: [id number] Name: ANJEL ROSS Rep #:[id number] : 1950 72 From: Hilario Malik MD PCP: NILS CANTOR Status:REG ER Location: ED ADDENDUM by Dr. Breana Avila DO on 01/10/23 at 0931 [facility] staff called into the ER to say that they cannot accept patient back to their facility as he is high risk for falls and too weak to go back to their facility it was felt he needed admitted and evaluated for custodial facility placement. Case discussed with hospitalist to [...] in person neurology, he was sent to [facility] they excepted him, they did not think he had NPH but rather that his ataxia was related to his high valproate levels. They recommended he be on valproic acid 1000 mg 3 times daily, and Keppra 1500 mg twice daily for his epilepsy. Apparently he just arrived back to assisted living from [facility] past day. There is no other information available at this time. The patient denies having any focal complaints. He initially thought he was at [facility], but he was redirectable and [facility] was his second guess. 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 His urinalysis is negative for infection and [...] a higher level of care like a custodial facility and he states no that he [...] % (Auto) 53.9 Lymph % (Auto) 25.6 Bucks % (Auto) 16.6 H Eos % (Auto) [...] Color Urine Clarity Urine pH Ur Specific [place] Urine Protein Urine Glucose (UA) Urine Ketones [...] (Auto) Neut % (Auto) Lymph % (Auto) Bucks % (Auto) Eos % (Auto) Baso % (Auto) Absolute Neuts (auto) Absolute Lymphs (auto) Nucleated RBC % Macrocytosis Sodium Potassium Chloride Carbon Dioxide Anion Gap BUN Creatinine Estim Creat Clear Calc Est GFR (MDRD) Af Amer Est GFR (MDRD) Non-Af BUN/Creatinine Ratio Glucose Calcium Troponin I High Sens Urine Color Yellow Urine Clarity Clear Urine pH 6.0 Ur Specific [place] 1.015 Urine Protein 15 H Urine Glucose [...] Signed: Alban Marin MD at 4:01 EDT , Rhythm Strip Rhythm Strip: Sinus [...] capsule 10 mg PO QHS bismuth subsalicylate [Cushman Bismuth] 262 mg/15 mL suspension 524 mg [...] offered higher level of care such as custodial, and he declined/refuses. Ambulatory in ED with a walker at baseline. Disposition Disposition: Home, Self Care What to do if you have Problems For any increased pain, shortness of breath, bleeding, nausea or vomiting, chestpain, or any unexpected problems, contact your Primary Care Provider. Call [facility] ([phone]) or report to the closest Emergency Room. Call 911 if necessary. 01/10/23710 <Electronically signed by Hilario Malik MD> Cosigner Signature (if applicable): CC: NILS CANTOR ~ Signed [facility] Work Phone: [phone]) 389-959904-08-2023 NoteHNO ID: [id number] Author: Anitha Burnette RN Service: Nursing Author Type: Registered Nurse Type: Nursing Progress Note Filed: 01/09/2023 2:00 PM Note Text: Updated patient's sister, Cha, on status and discharge tonight.[facility]04-07-2023 NoteHNO ID: [id number] Author: Adán De MD Service: Neurology General Author Type: Physician Type: Plan of Care Filed: 01/08/2023 2:40 PM Note Text: Staff Addendum: I have seen the patient, performed a neurological examination and reviewed the records personally with the resident/midlevel above and agree with the documentation. Please see their note for details. 72 year old male with chronic gait difficulties who is presenting to [facility] as a transfer from [facility] d/t concerns of NPH. Patient [...] service post discharge Adán De MD [facility]2023 NoteHNO ID: [id number] Author: Lorene Ortiz MD Service: Hospital Medicine [...] tremors. DATA: LABORATORY TESTS: CBC: Recent Labs 01/08/23 0316 WBC 8.90 HB 13.1 PLT 160 MCV 100.2* NEUTP 52.8 ABSNEUT 4.70 LYMPHP 31.6 CHEM: Recent Labs 01/08/23 031 NA 142 K 3.8 CA 9.4 MG 1.7 ANION 10 CHLOR 104 CO2 28 GLUC 90 BUN 11 CREAT 0.65* HEPATIC: Recent Labs 01/08/23315 ALT 7* AST 15 TBILI 0.3 ALKPHOS 58 ALB 3.2* TPROT 5.6* Imaging: CT-STROKE Brain/Head without Cont IMPORT Result Date: 01/04/2023 Images were obtained outside of [facility] OT-Chest 1 View IMPORT Result Date: 01/04/2023 Images were obtained outside of [facility] Most recent EKG normal sinus rhythm [...] HTN, and KYA He was [facility] 5 days prior due to weakness [...] NAME: Anjel Ross DATE: 01/08/2023 TIME: 12:14 [facility]02-13-[address] Sherman [facility] November 16, 2022 6:41pm Note Date/Time November 16, 2022 6:41pm [facility] Medical Records Department [address] [place] [address] Emergency Department Summary 11/16/22 MR#: [id number] Acct: [id number] Name: ANJEL ROSS Rep #:[id number] : 1950 72 From: Tate Sherman MD PCP: ZACKERY De Luna Status: PRE ER Location: ED HPI History of Present Illness Chief Complaint: Male Pain/Injury Narrative Narrative: Patient presents with scrotal bleeding from the ECF. Patient has no complaints. Seems the bleeding had subsided upon ED presentation. [facility] Medical History Anxiety Benign essential HTN [...] bismuth subsalicylate 262 mg/15 mL oral suspension (Cushman Bismuth) 524 mg PO Q30- 60M PRN [...] He can be discharged back to the [facility] Procedures Other Procedures Procedure(s): Hemostasis of scrotal [...] capsule 10 mg PO QHS bismuth subsalicylate [Cushman Bismuth] 262 mg/15 mL suspension 524 mg [...] (Reason: Congestion) Primary Care Provider: Becka Hines THERAPY TEACHER Referrals: Becka Hines THERAPY TEACHER, THERAPY TEACHER-C [Primary Care Provider] - Activity Restrictions/Additional Instructions: [...] your Primary Care Provider. Call [facility] ([phone]) or report to the closest Emergency Room. Call 911 if necessary. 11/16/221840 <Electronically signed by Tate Sherman MD> Cosigner Signature (if applicable): CC: THERAPY TEACHER-C Becka Hines ~ Signed [facility] Work Phone: 1(850) 569-720412-27-2022 Miscellaneous Notes* Telephone Encounter - Yury Gerber [...] Pharmacy Name: [facility] Number: [id number] Generic/ brand: 30 or 90 day supply requested: 90 Last appointment: 03/06/22 Next Appointment: none Patient of Dr. Chung documented in this encounterOhio[facility]10-28-2022 NoteHNO ID: [id number] Author: Mateo Benton MD Service: ? Author Type: Physician Type: Progress Notes Filed: 07/31/2022 9:27 AM Note Text: Subjective: Patient is status post a colonoscopy completed at [facility] on 07/06/2022. Patient was noted to [...] need to have another colonoscopy in 5 years.[facility]10-28-2022 History of Present illness Narrative* Mateo Benton MD - 07/31/2022 9:23 AM EDT Subjective: Patient is status post a colonoscopy completed at [facility] on 07/06/2022. Patient was noted to [...] colonoscopy in 5 years. documented in this encounterOhiohealth Nelsonville [facility] Center10-11-2022 Miscellaneous Notes* Telephone Encounter - Georgie Huitron - 07/14/2022 2:35 PM EDT They will call back to schedule.Georgie Alatorre Pss * Telephone Encounter - Elizabeth Ruth LPN - 07/14/2022 1:26 PM EDT Please call patient to schedule a virtual or office visit to view colonoscopy results. Thank you. Anjel# [phone] * Telephone Encounter - Silvia Bustamante Pss - 07/14/2022 1:05 PM EDT Patient called requesting results from colonoscopy. documented in this encounterOhiohealth Nelsonville [facility] Center07-12-2022 NoteHNO ID: [id number] Author: Madelin Ferguson PA-C Service: ? Author Type: Physician [employer] Superintendent Type: Progress Notes Filed: 04/27/2022 9:34 AM [...] colonoscopy 03/26/[address] Anjel Nagy at [facility]. Patient was noted to have a [...] W/COLLJ SPEC WHEN PFRMD 03/25/16 Colonoscopy outpt [facility] - COLSC FLX W/REMOVAL LESION BY HOT [...] mg by mouth daily at bedtime. - Feodf-2-SOX-EPA-Fish Oil (FISH OIL) 1,000 mg (120 mg-180 [...] chloride (KLOR-CON) 20 mEq (more content not included)...[facility]06-10-2022 Miscellaneous Notes* Telephone Encounter - Gerri De [...] AM EDT Medication Concern Person Calling Silvia Sherie from [facility] Name of medication Depakote XR. Concern with medication Nurse advised pt is having difficulty swallowing pill and since XR she can't crush. Nurse is asking if can get non XR or liquid so it's not difficult for pt? Patient of Dr. Chung documented in this encounterOhiohealth Nelsonville [facility] Center06-03-2022 NoteHNO ID: [id number] Author: Nils Marie APRN.GUI DEVELOPER Service: ? Author Type: Nurse Practitioner Type: Progress Notes Filed: 03/10/2022 9:06 AM Note Text:[facility]06-03-2022 NoteHNO ID: [id number] Author: Nils Marie APRN.GUI DEVELOPER Service: ? Author Type: Nurse Practitioner Type: Progress Notes Filed: 03/10/2022 9:01 AM Note Text: [facility] VIRTUAL VISIT HISTORY OF PRESENT ILLNESS: Anjel Ross is a 71 year old male who is diagnosed with seizures, and presents today for virtual visit. They are an established patient of Dr. Chung's and was last seen on 11/11/2020. Seizures: None that he can remember Last reported GTC around [facility] 08/2020. AED's: LEV 1500mg BID VPA 1000mg TID Pregabalin 200mg TID In other health,stable for what he can tell me and staff around him. Occupation: Retired. Lives in assisted living place in [place], [place] Driving: no Mood: ok Memory: poor [...] mg by mouth daily at bedtime. - Hiatt-6-PMO-EPA-Fish Oil (FISH OIL) 1,000 mg (120 mg-180 [...] AGE 6 - COLONOSCOP W/ OR W/O [facility] SPEC 09/11/2005 Colonoscopy - COLONOSCOP W/ OR W/O [facility] SPEC 12/06/14 Colonoscopy - COLONOSCOP W/ OR W/O [facility] SPEC 03/25/16 Colonoscopy outpt [facility] - COLONS W/REM POLYP HT BX 03/26/2017 - EG (more content not included)...[facility]06-03-2022 History of Present illness Narrative* Nils Marie, CONCRETE BUCKET UNLOADER.GUI DEVELOPER - 03/06/2022 2:10 PM EDT [facility] VIRTUAL VISIT HISTORY OF [...] Retired. Lives in assisted living place in [place], [place] Driving: no Mood: ok Memory: poor [...] 10 mg by mouth daily at bedtime. Eydfe-2-DME-EPA-Fish Oil (FISH OIL) 1,000 mg (120 mg-180 [...] CIRCUMCISION,OTHR AGE 6 COLONOSCOP W/ OR W/O [facility] SPEC 09/11/2005 Colonoscopy COLONOSCOP W/ OR W/O [facility] SPEC 12/06/14 Colonoscopy COLONOSCOP W/ OR W/O [facility] SPEC 03/25/16 Colonoscopy outpt [facility] COLONS W/REM POLYP HT BX 03/26/2017 EGD W/O OR W/BRUSH/WASH 11/22/14 EGD EGD W/O OR W/BRUSH/WASH 12/06/14 EGD LAP COLECTMY W/ILEUM/ILEOCOL 01-21-15 LAPAROSCOPIC CHOLEYCYSTECTOMY 01-21-15 WITH COLON PARTIAL HIP REPLACEMENT 90s Hip replacement, partial Rt PAST SURGICAL HISTORY OF ORTHOPEDIC ON KNEES FAMILY HISTORY Problem Relation Age of Onset Heart Mother SJORGENS, ANGIOPLASTY, ASHD Cancer Father LUNG Heart Father MO X 3 Heart Maternal Aunt MO Diabetes Maternal Aunt other (EPILEPSY) Paternal Grandfather [...] 03/06/2022 2:10 PM EDT documented in this encounterOhiohealth Nelsonville [facility] Center05-26-2022 Miscellaneous Notes* Telephone Encounter - Miquel Obregon APRN.CNP - 02/26/2022 1:33 PM EDT The following approved medication requests have been transmitted electronically. Signed Prescriptions Disp Refills levETIRAcetam (KEPPRA) 750 mg tablet 120 tablet 0 Si TABLETS (1,500MG) BY MOUTH 2 TIMES A DAY DX: / NURSE TO REORDER CHERIE: No Authorizing Provider: MIQUEL OBREGON APRN.CNP documented in this encounterOhiohealth Nelsonville Health Center05-06-2022 Miscellaneous Notes* Telephone Encounter - Miquel Obregon APRN.CNP - 02/06/2022 10:12 AM EDT The following approved medication requests have been transmitted electronically. Signed Prescriptions Disp Refills divalproex ER (DEPAKOTE ER) 500 mg 24 hr tablet 180 tablet 0 Sig: Take 2 tablets by mouth three times daily. CHERIE: No Authorizing Provider: MIQUEL OBREGON documented in this encounterOhiohealth Nelsonville Health Center04-26-2016 History of Past illness Narrative* Problem Noted Date Resolved Date Obesity due to excess calories 01/28/2016 0 02/04/2017 Family history of ischemic heart disease 016 10/02/2020 Colon cancer 12/31/2014 02/07/2015 Overview: Laparoscopic cholecystectomy, laparoscopic right hemicolectomy. Dr. Anjel Nagy [facility] 01/21/15 Special screening for malignant neoplasms, colon 12/06/2014 12/06/2014 Occult blood in stools 11/22/201411/22/ 5 Gout 08/10/2014 08/24/2015 Medicare annual wellness visit, initial 11/09/19 14 11/20/2019 Convulsions 11/06/2005 10/02/2020 documented as of this encounter (statuses as of 02/06/2022) [facility]04-26-[facility] History of Past illness Narrative* Problem Noted Date Resolved Date Obesity due to excess calories 01/28/2016 0 02/04/2017 Family history of ischemic heart disease 016 10/02/2020 Colon cancer 12/31/2014 02/07/2015 Overview: Laparoscopic cholecystectomy, laparoscopic right hemicolectomy. Dr. Anjel Nagy [facility] 01/21/15 Special screening for malignant neoplasms, colon 12/06/2014 12/06/2014 Occult blood in stools 11/22/2014 5 Gout 08/10/2014 08/24/2015 Medicare annual wellness visit, initial 11/09/19 14 11/20/2019 Convulsions 11/06/2005 10/02/2020 documented as of this encounter (statuses as of 03/10/2022) [facility] History of Past illness Narrative* Problem Noted Date Resolved Date Obesity due to excess calories 01/28/2016 0 02/04/2017 Family history of ischemic heart disease 016 10/02/2020 Colon cancer 12/31/2014 02/07/2015 Overview: Laparoscopic cholecystectomy, laparoscopic right hemicolectomy. Dr. Anjel Nagy [facility] 01/21/15 Special screening for malignant neoplasms, colon 12/06/2014 12/06/2014 Occult blood in stools 11/22/2014 5 Gout 08/10/2014 08/24/2015 Medicare annual wellness visit, initial 11/09/19 14 11/20/2019 Convulsions 11/06/2005 10/02/2020 documented as of this encounter (statuses as of 03/13/2022) [facility] of Past illness Narrative* Problem Noted Date Resolved Date Obesity due to excess calories 01/28/2016 0 02/04/2017 Family history of ischemic heart disease 016 10/02/2020 Colon cancer 12/31/2014 02/07/2015 Overview: Laparoscopic cholecystectomy, laparoscopic right hemicolectomy. Dr. Anjel Nagy [facility] 01/21/15 Special screening for malignant neoplasms, colon 12/06/2014 12/06/2014 Occult blood in stools 11/22/2014 5 Gout 08/10/2014 08/24/2015 Medicare annual wellness visit, initial 11/09/19 14 11/20/2019 Convulsions 11/06/2005 10/02/2020 documented as of this encounter (statuses as of 07/14/2022) [facility] of Past illness Narrative* Problem Noted Date Resolved Date Obesity due to excess calories 01/28/2016 0 02/04/2017 Family history of ischemic heart disease 016 10/02/2020 Colon cancer 12/31/2014 02/07/2015 Overview: Laparoscopic cholecystectomy, laparoscopic right hemicolectomy. Dr. Anjel Nagy [facility] 01/21/15 Special screening for malignant neoplasms, colon 12/06/2014 12/06/2014 Occult blood in stools 11/22/2014 5 Gout 08/10/2014 08/24/2015 Medicare annual wellness visit, initial 11/09/19 14 11/20/2019 Convulsions 11/06/2005 10/02/2020 documented as of this encounter (statuses as of 07/31/2022) [facility] of Past illness Narrative* Problem Noted Date Resolved Date Obesity due to excess calories 01/28/2016 0 02/04/2017 Family history of ischemic heart disease 016 10/02/2020 Colon cancer 12/31/2014 02/07/2015 Overview: Laparoscopic cholecystectomy, laparoscopic right hemicolectomy. Dr. 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)- Primary documented in this encounter [facility] CenterEvalubay[facility] noteNo assessment information availableWUC [facility] Work Phone: Evaluation note* Diagnosis Personal history of colon cancer- Primary Personal history of malignant neoplasm of large intestine History of colonic polyps Personal history of colonic polyps documented in this encounter [facility]Eval[facility] note* Diagnosis Onset Date Resolution Status Ataxia acute Hypokalemia acute Serum sodium valproate above therapeutic range acute Encounter for medical screening examination acute Weakness acute [facility] Work Phone: Evaluation note* Diagnosis Onset Date Resolution Status Ataxia acute Hypokalemia resolved Serum sodium valproate above therapeutic range resolved Encounter for medical screening examination acute Weakness acute [facility] Work Phone: Hospital Discharge instructions Additional Instructions You have a very small area of scrotal bleeding if this happens again put pressure on the scrotum for 15 minutes.[facility] Work Phone: Hospital Discharge instructions Additional Instructions Imaging of brain/head and low back and negative for nothing acute, old L1 compression fracture noted and stable.[facility] Work Phone: Hospital Discharge instructions Additional Instructions Patient again has a normal work-up including a normal valproic acid level. He was offered higher level of care such as custodial, and he declined/refuses. Ambulatory in ED with a walker at baseline.[facility] Work Phone: Reason for referral (narrative)No reason for referral information availableWooCrystal Clinic [facility]opedic Center Work Phone: Summary Purpose Family History No Family History Records Found Relationship Condition Age at Onset Recorded Date/T anh mother Chronic obstructive pulmonary disease Unk nown Coronary artery disease Unknown father Malignant neoplasm Unknown Cardiac disease Unknown Myocardial infarction Unknown aunt Coronary artery disease Unknown Advance Directives No Advanced Directives Records FoundDocuments on File Type Date Recorded Patient Guest Advisor Expl anation Advance Directive(s) 03/18/2020 12:37 PM Advance Directive(s) 02/21/2020 1:12 PM Advance Directive(s) 12/08/2019 4:35 PM Advance Directive(s) 05/05/2016 10:27 AM Advance Directive(s) 12/27/2015 9:39 AM Advance Directive(s) 12/13/2015 10:23 AM Advance Directive Response Recorded Date/ Time Advance Directives Yes May 27, 2018 9:42am Living Will Yes July 01, 2022 1:39pm Power of Paddle Dyeing Machine Operator Yes June 1:39pm Name of Medical Power of Paddle Dyeing Machine Operator GILBERTOSherie CARDENAS HEDY CONTI July 01, 2022 1:39pm Documents on File Type Date Recorded Patient Guest Advisor Expl anation Advance Directive(s) 05/05/2016 10:27 AM Advance Directive Response Recorded Date/ Time Name of Medical Power of Paddle Dyeing Machine Operator MARLY CONTI July 01, 2022 12:39pm Advance Directives Yes May 27, 2018 8:42am Living Will No August 11 3:00pm Power of Paddle Dyeing Machine Operator No August 11, 2022 3:00pm Advance Directive Response Recorded Date/ Time Name of Medical Power of Paddle Dyeing Machine Operator SUSHMA MORALES November 16, 2022 6:13pm Advance Directives Yes May 27, 2018 8:42am Living Will Yes November 16 6:13pm Power of Paddle Dyeing Machine Operator Yes November 16, 2022 6:13pm Advance Directive Response Recorded Date/ Time Name of Medical Power of Paddle Dyeing Machine Operator SUSHMA MORALES November 16, 2022 7:13pm Name of Medical Power of Paddle Dyeing Machine Operator unknown December 31, 2022 6:02am Advance Directives Yes May 27, 2018 9:42am Living Will Yes December 31, 2022 6:02am Power of Paddle Dyeing Machine Operator Yes December 31 6:02am Advance Directive Response Recorded Date/ Time Name of Medical Power of Paddle Dyeing Machine Operator SUSHMA MORALES November 16, 2022 7:13pm Name of Medical Power of Paddle Dyeing Machine Operator unknown December 31, 2022 6:02am Name of Medical Power of Paddle Dyeing Machine Operator DREAJENNIFER CONTI January 04, 2023 8:30pm Name of Medical Power of Paddle Dyeing Machine Operator ? January 10, 2023 1:42am Advance Directives Yes May 27, 2018 9:42am Living Will Yes January 10, 2023 1:42am Power of Paddle Dyeing Machine Operator Yes January 10 1:42am Advance Directive Response Recorded Date/ Time Name of Medical Power of Paddle Dyeing Machine Operator SUSHMA MORALES November 16, 2022 7:13pm Name of Medical Power of Paddle Dyeing Machine Operator unknown December 31, 2022 6:02am Name of Medical Power of Paddle Dyeing Machine Operator DREA CONTI January 04, 2023 8:30pm Name of Medical Power of Paddle Dyeing Machine Operator Drea Umair (nifelisa) January 10, 2023 10:23am Advance Directives Yes May 27, 2018 9:42am Living Will Yes January 10, 2023 10:23am Power of Paddle Dyeing Machine Operator Yes January 10 10:23am Advance Directive Response Recorded Date/ Time Advance Directives Yes July 12, 2020 10:01am Living Will Yes January 10, 2023 10:23am Power of Paddle Dyeing Machine Operator Yes January 10 10:23am Advance Directive Response Recorded Date/ Time Advance Directives Yes July 12, 2020 9:01am Living Will Yes January 10, 2023 9:23am Power of Paddle Dyeing Machine Operator Yes January 10 9:23am Advance Directive [...] for medical screening examination Weakness Chief Complaint SNF LABWORK SNF LABWORK LAB WORK SNF LAB WORK Chief Complaint SNF LAB WOR K LABWORK Chief Complaint SNF LAB WOR K SNF LAB WORK LABWORK Chief Complaint SNF LAB WOR K LABWORK SNF LAB WORK Chief Complaint SNF LAB WOR K LABWORK SNF LAB WORK LABWORK Chief Complaint SNF LAB WOR K LABWORK SNF LAB WORK LABWORK SNF LAB WORK Chief Complaint SNF LAB WOR K LABWORK SNF LAB WORK LABWORK SNF LAB WORK LABWORK Chief Complaint SNF LAB WOR K LABWORK SNF LAB WORK LABWORK SNF LAB WORK SNF LAB WORK LABWORK Chief Complaint SNF LAB WOR K LABWORK SNF LAB WORK LABWORK SNF LAB WORK SNF LAB WORK LABWORK SNF LAB WORK Chief Complaint SNF LAB WOR K LABWORK SNF LAB WORK SNF LAB WORK LABWORK SNF LAB WORK SNF LAB WORK Chief Complaint LABWORK SNF LAB WORK SNF LAB WORK LABWORK SNF LAB WORK SNF LAB WORK SNF LAB WORK LABWORK Chief Complaint Admit Date LABWORK September 29, 2024 5:00am LABWORK October 05, 2024 5: 00am Doppler results November 01, 2024 1 0:09am LABWORK December 06, 2024 5:00 am Reason for Visit Admit Date Bilateral lower extremity edema November 01, 2024 10:09am PVD (peripheral vascular disease) Januar y 2024 10:09am Chief Complaint Admit Date Doppler results November 01, 2024 1 0:09am LABWORK December 06, 2024 5:00 am LAB WORK January 02, 2025 5:00 am SNF LAB WORK January 03, 2025 5: 00am LABWORK January 05, 2025 6:34 am 3-4 M FU January 31, 2025 11: 04am LABWORK February 01, 2025 5:00am PVD February 13, 2025 9:06a m Reason for Visit Admit Date Bilateral lower extremity edema November 01, 2024 10:09am PVD (peripheral vascular disease) Januar y 2024 10:09am Bilateral lower extremity edema January 312024 11:04am PVD (peripheral vascular disease) January 31, 2025 11:04am Additional Source Comments (unrecognized sect ion and content) No Status Records FoundNo Status Records FoundNo Status Records FoundNo Status Records FoundNo Status Records Found INFORMATION SOURCE (unrecogn ized section and content) DATE CREATED AUTHOR 03/23/2018 [facility] DATE CREATED AUTHOR AUTHOR'S ORGANIZ ATION 08/01/2022 [facility] DATE CREATED AUTHOR AUTHOR'S ORGANIZ ATION 01/16/2023 [facility] DATE CREATED AUTHOR AUTHOR'S ORGANIZ ATION 04/27/2024 [facility] DATE CREATED AUTHOR AUTHOR'S ORGANIZ ATION 05/02/2025 [facility] Source Comments (unrecognize d section and content) In the event this informatio n is protected by the Federal Confidentiality of Alcohol and Drug Abuse Patient Records regulations: The Federal rules restrict any use of the information to criminally investigate or prosecute any alcohol or drug abuse patient.[facility] the event this information is protected by the Federal Confidentiality of Alcohol and Drug Abuse Patient Records regulations: The Federal rules restrict any use of the information to criminally investigate or prosecute any alcohol or drug abuse patient.[facility] the event this information is protected by the Federal Confidentiality of Alcohol and Drug Abuse Patient Records regulations: The Federal rules restrict any use of the information to criminally investigate or prosecute any alcohol or drug abuse patient.[facility] the event this information is protected by the Federal Confidentiality of Alcohol and Drug Abuse Patient Records regulations: The Federal rules restrict any use of the information to criminally investigate or prosecute any alcohol or drug abuse patient.[facility] the event this information is protected by the Federal Confidentiality of Alcohol and Drug Abuse Patient Records regulations: The Federal rules restrict any use of the information to criminally investigate or prosecute any alcohol or drug abuse patient.[facility] the event this information is protected by the Federal Confidentiality of Alcohol and Drug Abuse Patient Records regulations: The Federal rules restrict any use of the information to criminally investigate or prosecute any alcohol or drug abuse patient.[facility] the event this information is protected by the Federal Confidentiality of Alcohol and Drug Abuse Patient Records regulations: The Federal rules restrict any use of the information to criminally investigate or prosecute any alcohol or drug abuse patient.[facility] Reason for Visit (unrecogniz ed section and content) Reason Comments Refill Request Reason Comments Follow Up Refill Request Seizures Reason Comments Medication Question Depakote XR Reason Comments Results Reason Comments Follow Up Review colonoscopy r esults Reason Onset Date Comments Refill Request 09/29/2022 Care Teams (unrecognized sec tion and content) Manager Plan Relationship Specialty Start Date End Date Maddie Cantor [address] [place] [id number] PCP - General Internal Medicine 02/21/20 Manager Plan Relationship Specialty Start Date End Date Maddie Cantor [address] [place] [address] PCP - General Internal Medicine 02/21/20 Manager Plan Relationship Specialty Start Date End Date Maddie Cantor [address] [place] [address] PCP - General Internal Medicine 02/21/20 Manager Plan Relationship Specialty Start Date End Date Maddie Cantor [address] [place] [address] PCP - General Internal Medicine 02/21/20 Team Status: Active Member Role Status Dates Becka Hines THERAPY TEACHER, THERAPY TEACHER-C Family Provider Active No Primary Care Physician Primary Care Provider Active Team Status: Inactive Member Role Status Dates Becka Hines THERAPY TEACHER, THERAPY TEACHER-C Primary Care Provider Act ashish Dr. Donovan Skaggs MD Attending Provider, Emergency Provi tsering Active Team Status: Inactive Member Role Status Dates Dr. Tate Sherman MD Emergency Provider Active No Primary Care Physician Primary Care Provider Active Team Status: Active Member Role Status Dates Becka Hines THERAPY TEACHER, THERAPY TEACHER-C Family Provider Active Dr. Maddie MACIEL DO Primary Care Provider Acti ve Team Status: Inactive Member Role Status Dates Dr. Tate Sherman MD Attending Provider, Emergency Pr ovider Active No Primary Care Physician Primary Care Provider Active Team Status: Inactive Member Role Status Dates Dr. Maddie MACIEL DO Primary Care Provider Acti ve Dr. Hilario Malik MD Emergency Provider Active Team Status: Active Member Role Status Dates Becka Hines THERAPY TEACHER, THERAPY TEACHER-C Family Provider Active [facility]IL[facility] CANTOR Primary Care Provider Active Team Status: Active Member Role Status Dates Dr. Maddie MACIEL DO Primary Care Provider Acti ve Dr. Hilario Malik MD Emergency Provider Active Dr. Carrie Hooper MD Admit Provider, Attending Provider, Other Provider Active Team Status: Active Member Role Status Dates Dr. Maddie MACIEL DO Primary Care Provider Acti ve Dr. [...] Inactive Member Role Status Dates Dr. Maddie MACIEL DO Primary Care Provider Acti ve Dr. [...] Active Member Role Status Dates Becka Hines THERAPY TEACHER, THERAPY TEACHER-C Family Provider Active Out of [facility] Doctor Primary Care Provider Active Team Status: Inactive Member Role Status Dates Out of [facility] Doctor Primary Care Provider Active [facility] Attending Provider Acti ve Team Status: Inactive Member Role Status Dates Out of [facility] Doctor Primary Care Provider Active Dr. Avani MACIEL MD Attending Provider Active Team Status: Active Member Role Status Dates Out of [facility] Doctor Primary Care Provider Active Dr. Avani MACIEL MD Attending Provider Active Team Status: Inactive Member Role Status Dates Out of [facility] Doctor Primary Care Provider Active Dr. Avani MACIEL MD Attending Provider, Referring Provider Active Team Status: Active Member Role Status Dates Becka Hines THERAPY TEACHER, THERAPY TEACHER-C Family Provider Active Dr. Avani Eduarod MD Primary Care Provider Active Team Status: Inactive Member Role Status Dates Out of [facility] Doctor Primary Care Provider Active Start: September [...] Active Start: February 13, 2025 Dr. Eris Cpaps MD Attending Provider Active S tart: February [...] BE BASED ON THE PRIMARY CLINICAL RECORDS. [facility]. provides no warranty or guarantee of the accuracy or completeness of information in this document.
[2025-05-08 09:00] LABS: Hematocrit 39.1 % (40-54); Hemoglobin 13.3 g/dL (13.0-16.5); Mean Corp Hgb Conc 34.0 g/dL (32-36); Mean Corpuscular Volume 95.4 fL (80-94); Mean Platelet Vol. 9.3 fl (6.2-12.0); Platelet Count 197 K/mm3 (150-450); RBC Distribution Width CV 13.4 % (11.6-14.6); RBC Distribution Width SD 47.3 fl (35.1-43.9); Red Blood Count 4.10 M/mm3 (4.6-6.2); White Blood Count 6.9 K/mm3 (4.4-11.0)
[2025-05-08 09:22] LABS: Anion Gap 13 (5-15); BUN 9 mg/dL (4-19); BUN/Creat Ratio 16.3 RATIO (10-20); Calcium,Total 9.0 mg/dL (7.6-11.0); Carbon Dioxide 26.3 mmol/L (21.0-32.0); Chloride 100 mmol/L (98-108); Glucose 140 mg/dL (70-99); Magnesium 2.1 mg/dL (1.5-2.2); Potassium 3.5 mmol/L (3.3-5.1)
== END ==
LOC: OLS.SW 04:00
PROVIDERS: PCP Internal Medicine; Referring Provider Internal Medicine; Visit Provider Internal Medicine
DX: Z79.899 Other long term (current) drug therapy (principal)
CPT/HCPCS: 36415; 80048; 83735; 85027

== ENCOUNTER → 2025-05-29 | Outpatient (REF) | payer MEDICARE, MEDICAID, SELFPAY ==
--- OUTSIDE RECORDS SUMMARY | 2025-05-29 04:08 | XMS RPT_ITS | CCD ---
Author Organization [facility] Care Team Providers Care Host Hostess Name Role Phone MEG JOE Unavailable Unavailable MEG JOE Unavailable Unavailable IMCA Unavailable Unavailable Maddie Cantor Primary Care Provider [phone] Maddie Cantor Primary Care Provider NILS MARIE Attending Unavailable MADDIE CANTOR Primary Care Unavailable MADELIN FERGUSON Attending Unavailable MADDIE CANTOR Referring Unavailable MADDIE CANTOR Primary Care Unavailable MATEO BENTON Attending Unavailable MATEO BENTON Referring Unavailable MADDIE CANTOR Primary Care Unavailable Maddie Cantor Primary Care Provider [phone] Dr. Maddie Scott Primary Care Provider U Dr. Hilario Conrad Emergency Provider [phone] Dr. Carrie Hooper Admit Provider Dr. Carrie Hooper Attending Provider Dr. Carrie Hooper Other Provider Dr. Chino Cannon Attending Provider Unavailable Dr. Chino Cannon Other Provider Unavailable MADDIE CANTOR Primary Care Unavailable LORENE ORTIZ Attending Unavailable HILARIO MALIK Referring Unavailab KERON Christensen Admitting Unavailable MICHELINE HUBER Unavailable NILS CANTOR Primary Care Provider Dr. Kary Recio Admit Provider Dr. Kary Recio Other Provider Dr. Nina Wilder Attending Provider Dr. Nina Wilder Other Provider Dr. Kary Recio Attending Provider STANTON ANDREWS Attending Unavailable STANTON ANDREWS Attending Unavailable STANTON ANDREWS Attending Unavailable STANTON ANDREWS Attending Unavailable [facility] Doctor, Out of Primary Care Provider Papa Eduardo MD, Dr. Varma Attending Provider Unavailelizabeth Eduardo MD, Dr. Varma Primary Care Provider UnaKourtney Rob Attending Provider [phone] Jayce MUNOZ, Dr. Varma Referring Provider Unavailelizabeth Eduardo MD, Dr. Varma Primary Care Provider Surjit Eduardo MD, Dr. Varma Attending Provider Unavailelizabeth SUERO, Kourtney Referring Provider [phone] Génesis MUNOZ, Dr. Schulte Attending Provider [phone] Jayce MUNOZ, Dr. Varma Primary Care Provider Surjit Eduardo MD, Dr. Varma Referring Provider UnavailKourtney Antonio Attending Provider [phone] Avani Eduardo MD Attending Provider Unavailelizabeth Eduardo MD, Dr. Varma Referring Provider Unavaila ble Liama, Avani Primary Care Unavailable Gudla, Avani Referring Unavailable Kourtney Farrar Attending Unavailable Gudla, Avani Primary Care Unavailable Gudla, Avani Referring Unavailable Kourtney Farrar Attending Unavailable Gudla, Avani Primary Care Unavailable Eris Capps Attending Unavailable Kourtney Farrar Referring Unavailable Gudla, Avani Primary Care Unavailable Gudla Avani MACIEL Referring Unavailable Gudla Avani MACIEL Attending Unavailable Gudla, Avani Primary Care Unavailable Gudla Avani MACIEL Attending Unavailable Gudla, Avani Primary Care Unavailable Gudla Avani MACIEL Attending Unavailable Gudla, Avani Primary Care Unavailable Gudla Avani MACIEL Attending Unavailable Gudla, Avani Primary Care Unavailable Gudla Avani MACIEL Attending Unavailable Gudla, Avani Primary Care Unavailable Gudla Avani MACIEL Attending Unavailable Gudla, Avani Primary Care Unavailable Gudla Avani MACIEL Attending Unavailable Gudla, Avani Primary Care Unavailable Gudla OLS, Avani Referring Unavailable Gudla OLS, Avani Attending Unavailable [facility] Doctor, Out of Primary Care Unavailable Gudla OLS, Avani Attending Unavailable Gudla, Avani Primary Care Unavailable Gudla OLS, Avani Attending Unavailable Gudla, Avani Primary Care Unavailable Gudla OLS, Avani Attending Unavailable Gudla OLS, Avani Attending Unavailable [facility] Doctor, Out of Primary Care Unavailable Gudla, Avani Primary Care Unavailable Farrar, Kourtney Referring Unavailable Farrar, Kourtney Attending Unavailable [facility] Doctor, Out of Primary Care Unavailable Gudla OLS, Avani Attending Unavailable [facility] Doctor, Out of Primary Care Unavailable Gudla OLS, Avani Attending Unavailable Gudla, Avani Primary Care Unavailable Gudla OLS, Avani Attending Unavailable Allergies Allergy Classification Reported Allergen(s) Allergy Type Date of Onset Reaction(s) Facility (20 sources) nickel; Translations: [NICKEL] Drug Allergy 3 Rash [facility] Repository (20 sources) OXcarbazepine; Translations: [[facility]BAZEPINE] [facility] salicylic acid; Translations: [SALICYLATES] Drug Allergy 5 [facility] (20 sources) [facility]irin Drug Allergy 5 [facility] Rep[facility] Medications Current Medications Medication Drug [...] for shortness of breath or wheezing 180 3 May 03, 2018 12:00am May 03, 2018 11:09am alendronic acid 70 mg oral tablet (20 sources) Bisphosphonate Start: 12-07-2016 Alendronate 70 MG tablet Active 70 mg PO LEON December 07, 2016 1:00am OSTEOPOROSIS Comment on above: Take 70 mg by mouth one time a week. allopurinol 100 mg oral tablet (20 sources) Xanthine Oxidase Inhibitor Start: 08-10-2014 take 1 tablet by mouth at bedtime Allopurinol 100 MG tablet Active 100 mg PO AT BEDTIME December 07, 2016 1:00am GOUT Comment on above: Take 1 tablet by heather once daily. For gout. ascorbic acid 113 mg / beta carotene 7160 mg / cuprous oxide 0.4 mg / dl-alpha tocopheryl acetate 100 unt / zinc oxide 17.4 mg oral tablet (1 source) Vitamin C Start: 01-04-2023 take 1 tablet by mouth once daily at lunch Vitamins A,C,G-Dvma-Hvspyt (Eye Multivitamin) 2,148 mcg-113 mg-45 mg-17.4mg Tablet Active 1 TABLET PO DAILY January 04, 2023 12:00am administer with LUNCH atorvastatin 40 mg oral tablet (20 sources) HMG-CoA Reductase Inhibitor Start: 10-29-2015 take 1 tablet by mouth at bedtime Atorvastatin 40 MG tablet Active 40 mg PO AT BEDTIME December 07, 2016 1:00am CHOLESTEROL Comment on above: Take 1 tablet by heather once daily. bethanechol chloride 25 mg oral tablet (12 sources) Cholinergic Muscarinic Agonist Start: 03-17-2019 take 25 mg by mouth three times daily Bethanechol Chloride Active 25 MG PO THREE TIMES A DAY March 17, 2019 12:00am Comment on above: Take 25 mg by mouth three times daily. bismuth subsalicylate 17.5 mg/ml oral suspension (5 sources) Bismuth Start: 07-15-2020 Bismuth Subsalicylate (Pe Ell Bismuth) 262 mg/15 mL suspension Active 524 MG PO every 30 to 60 minutes July 15, 2020 12:00am do not exceed 8 doses in a 24 hour period bumetanide 1 mg oral tablet (20 sources) Loop Diuretic Start: 01-04-2023 take 1 tablet by mouth once daily Bumetanide 1 mg Tablet Active 2 mg PO DAILY January 04, 2023 12:00am DIURETIC Start: 01-04-2023 take 2 mg by mouth [...] U PO DAILY July 11, 2019 12:00am SUPPLEMENT Start: 07-11-2019 take 2000 [IU] by mo [facility] at bedtime Cholecalciferol (Vitamin D3) Active 2000 UNIT PO AT BEDTIME July 11, 2019 12:00am take 1 tablet by [facility] once daily cholecalciferol (VITAMIN D3) 50 mcg (2,000 unit) tablet Take 2,000 Units by mouth once daily. 0 Active Comment on above: Take 2,000 Units by mouth once daily. clopidogrel 75 mg oral tablet (20 sources) P2Y12 Platelet Inhibitor Start: 6 take 1 tablet by mouth once daily Clopidogrel 75 MG tablet Active 75 mg PO DAILY December 07, 2016 1:00am ANTIPLATELET Comment on above: Take 1 tablet by [facility] once daily. docusate sodium 100 mg oral capsule (3 sources) Start: 5 take 1 capsule by mouth twice daily Docusate Sodium (Colace) 100 mg capsule Active 100 mg PO TWICE A DAY November 01, 2024 1:00am Dulaglutide (3 sources) GLP-1 Receptor Agonist Start: Dulaglutide (Trulicity) 3 mg/0.5 mL pen injector [...] mg PO DAILY December 07, 2016 1:00am PROSTATE Comment on above: Take 1 tablet by [...] and/or snacks lactulose 667 mg/ml oral solution (16 sources) Osmotic Laxative Start: 01-18-2023 Lactulose 20 gram/30 mL solution Active 20 g PO THREE TIMES A DAY 3000 2 January 18, 2023 12:00am titrate until patient is having 2-3 loose stools daily levETIRAcetam 750 mg oral tablet (20 sources) Start: 01-04-2023 End: 11-01-2024 take 2 tablets by mouth twice daily Levetiracetam 750 mg tablet Active 1500 mg PO TWICE A DAY November 01, 2024 11:31am seizures Start: 01-04-2023 take 1500 mg by mout [...] 11, 2019 12:00am July 15, 2020 1:55pm SEIZURES Start: 07-11-2019 End: 07-15-2020 take 2 tablets by mouth at bedtime Levetiracetam 1,000 MG tablet Discontinued 2000 mg PO AT BEDTIME July 11, 2019 12:00am July 15, 2020 1:56pm SEIZURES Start: 07-11-2019 End: 07-15-2020 take 1500 mg [...] on above: Take 2 tablets by mo [facility] twice daily. 2 TABLETS (1,500MG) BY MOUTH 2 TIMES A DAY DX: / NURSE TO REORDER levothyroxine sodium 0.05 mg oral tablet (20 sources) l-Thyroxine Start: take 2 tablets by mouth once daily Levothyroxine 50 mcg tablet Active 100 ug PO DAILY November 01, 2024 11:32am THYROID Start: 12-07-2016 take 75 ug by mouth once daily Levothyroxine Active 75 MCG PO DAILY December 07, 2016 1:00am Start: 12-30-2012 End: 11-01-2024 take 1 tablet by mouth once daily Levothyroxine 50 MCG tablet Discontinued 50 ug PO DAILY December 07, 2016 1:00am November 01, 2024 11:38am THYROID take 1 tablet by heather once daily before breakfast levothyroxine (SYNTHROID) 75 mcg tablet Take 75 mcg by mouth daily before breakfast. 0 Active Comment on above: Take 1 tablet by heather once daily. Take on empty stomach. For [...] PO AT BEDTIME July 11, 2019 12:00am SUPPLEMENT Start: 12-07-2016 End: 03-17-2019 take 1 tablet by mouth at bedtime Magnesium Oxide 250 MG tablet Discontinued 250 mg PO AT BEDTIME December 07, 2016 1:00am March 17, 2019 1:16pm Comment on above: Take 400 mg by mouth daily at bedtime. melatonin 5 mg oral capsule (3 sources) Start: 11-01-19 Melatonin 5 mg capsule Active mg PO November 01, 2024 1:00am montelukast 10 mg oral tablet (20 sources) Leukotriene Receptor Antagonist Start: 03-17-20 take 1 tablet by mouth at bedtime Montelukast 10 mg tablet Active 10 mg PO AT BEDTIME March 17, 2019 12:00am ALLERGIES Comment on above: Take 10 mg by mouth daily at bedtime. OLANZapine 5 mg disintegrating oral tablet (20 sources) Atypical Antipsychotic Start: 11-01-19 take 7.5 mg by mouth at bedtime Olanzapine 5 mg tablet,disintegrati ng Active 7.5 mg PO AT BEDTIME November 01, 2024 11:34am DEPRESSION Start: 10-02-2020 take 1 tablet by heather th once daily at bedtime OLANZapine (ZYPREXA) 7.5 mg tablet Take 1 tablet by mouth daily at bedtime. 90 tablet 0 10/02/2020 Active Start: 07-15-2020 End: 11-01-2024 take 2 tablets by mouth at bedtime Olanzapine 5 mg tablet,disintegrating Discontinued 10 mg PO AT BEDTIME July 15, 2020 2:01pm November 01, 2024 11:38am DEPRESSION Start: 07-15-2020 take 10 mg by mouth at bedtime Olanzapine Active 10 MG PO AT BEDTIME July 15, 2020 2:01pm Start: 12-07-2016 End: 07-15-2020 take 1 tablet by mouth at bedtime Olanzapine 5 MG tablet,disintegrating Discontinued 5 mg PO AT BEDTIME December 07, 2016 1:00am July 15, 2020 2:11pm DEPRESSION take 1 tablet by heather th once daily at bedtime OLANZapine (ZYPREXA) 10 mg tablet Take 10 mg by mouth daily at bedtime. 0 Active Comment on above: Take 1 tablet by heather th daily at bedtime. Take 10 mg by mouth daily at bedtime. pantoprazole 40 mg delayed release oral tablet (20 sources) Proton Pump Inhibitor Start: 03-17-20 19 take 1 tablet by mouth once daily Pantoprazole 40 mg tablet,delayed release (DR/EC) Active 40 mg PO DAILY March 17, 2019 12:00am ACID REFLUX Comment on above: Take 40 mg by mouth once daily. polyethylene glycol 3350 57823 mg powder for oral solution (5 sources) Osmotic Laxative Start: 07-15-20 20 Polyethylene Glycol 3350 (Miralax) 17 gram/dose powder Active 17 GM PO DAILY July 15, 2020 12:00am microencapsulated potassium chloride 20 meq extended release oral tablet (20 sources) Start: 07-11-20 19 take 1 tablet by mouth twice daily Potassium Chloride 20 MEQ tablet,ER particles/crystals Active 20 meq PO TWICE A DAY July 11, 2019 12:00am SUPPLEMENT Start: 10-25-2015 take 20 mEq by mouth [...] 200 mg PO THREE TIMES A DAY 9 0 January 18, 2023 5:12pm take 1 capsule by mo uth three times daily Pregabalin (LYRICA) 200 mg [...] TIMES A DAY July 11, 2019 12:00am SEIZURES Comment on above: Take 1 tablet by heather th three times daily. sennosides, residential 8.6 mg oral capsule (5 sources) Start: [...] EVERY OTHER DAY July 15, 2020 1:57pm DIURETIC Start: 07-15-2020 take 0.25 mg by mout h every other day Spironolactone Active 25 MG PO .25 MG QOD, 50MG QOD July 15, 2020 1:57pm 25mg qod, 50mg qod Start: 12-07-2016 End: 07-15-2020 Spironolactone 25 MG tablet Discontinued 37.5 mg PO DAILY December 07, 2016 1:00am July 15, 2020 2:11pm DIURETIC Start: 12-07-2016 End: 07-15-2020 take 37.5 mg [...] tablets tamsulosin hydrochloride 0.4 mg oral capsule (4 sources) alpha-Adrenergic Ramon Start: take 1 capsule [...] Comment on above: Take [address] [facility] three times daily. Take 20 mL by mouth three times daily. 24 hr venlafaxine 150 mg extended release oral capsule (20 sources) Serotonin and Norepinephrine Reuptake Inhibitor Start: 07-11-20 End: 07-15-20 take 1 capsule by mouth once daily Venlafaxine 150 mg capsule,extended release 24hr Active 150 mg PO DAILY July 15, 2020 2:04pm DEPRESSION Comment on above: Take [address] [facility] once daily. Take Effexor XR 150 mg [...] Comment on above: Take [address] [facility] every other day. Once capsule by mouth [...] Start: 03-23-2017 take 1300 mg by mout h twice daily Acetaminophen Active 1300 MG PO TWICE A DAY March 23, 2017 12:00am take 2 tablets by mo uth twice daily acetaminophen 650 mg CR tablet Take 1,300 mg by mouth twice daily. 0 Active Comment on above: Take 1,300 mg by heather th twice daily. acetaminophen 325 mg / HYDROcodone [...] 10, 2023 12:00am November 01, 2024 11:38am urinary urgency Start: 03-23-2017 take 10 mg by mouth [...] mg capsule Discontinued 500 mg PO DAILY@1200 0 March 17, 2019 12:00am November 01, 2024 11:28am SUPPLEMENT take 1 tablet by heather once daily at lunch ascorbic acid, vitamin [...] 10, 2023 12:00am November 01, 2024 11:30am supplement Start: 03-17-2019 Ferrous Glucon ate (Ferate) 240 [...] 17, 2019 1:16pm omega-3 acid ethyl esters (residential) 1000 mg oral capsule (16 sources) Start: 01-10-2023 End: 11-01-2024 [place] 7-Jym-Oyg-Fish Oil 1,0 00 mg (120 mg-180 mg) Capsule Discontinued 1 NMA PO TWICE A DAY January 10, 2023 12:00am November 01, 2024 11:35am Start: 01-10-2023 take [address] [facility] twice daily [place] 0-Nwp-Dlo-Fish Oil Active 1 CAP PO TWICE A DAY January 10, 2023 12:00am [place]-3 Fatty Acids-Fish Oil (18 sources) Start: 07-11-2019 End: 07-15-2020 take 2 capsules by mouth twice daily [place]-3 Fatty Acids-Fish Oil Discontinued 2 CAP PO TWICE A DAY July 10, 2019 11:00pm July 15, 2020 1:09pm Start: 07-11-2019 End: 07-15-2020 take 2 capsules by mouth twice daily [place]-3 Fatty Acids-Fish Oil Discontinued 2 CAP PO TWICE A DAY July 11, 2019 12:00am July 15, 2020 2:09pm [place]-3 Fatty Acids-Fish Oil 1 EACH capsule (3 sources) Start: 07-11-2019 End: 07-15-2020 [place]-3 Fatty Acids-Fish Oil 1 EACH capsule Discontinued 2 NMA PO TWICE A DAY July 11, 2019 12:00am July 15, 2020 2:09pm SUPPLEMENT Start: 07-11-2019 End: 07-15-2020 [place]-3 Fatty Acids-Fish Oil 1 EACH capsule Discontinued 2 NMA PO TWICE A DAY July 11, 2019 12:00am July 15, 2020 2:09pm Fbpbg-6-ZYV-EPA-Fish Oil (FISH OIL) 1,000 mg (120 mg-180 mg) cap (5 sources) take 1 capsule by mouth twice daily Wpnyf-8-TVW-EPA-Fish Oil (FISH OIL) 1,000 mg (120 mg-180 mg) cap Take one capsule by mouth twice daily. 0 Active Comment on above: Take one capsule by mouth twice daily. Dzlvm-9-GRO-EPA-Fish Oil 1,000 mg (120 mg-180 mg) cap (2 sources) take 1 capsule by mouth twice daily Mpnnu-3-GJR-EPA-Fish Oil 1,000 mg (120 mg-180 mg) cap Take one capsule by mouth twice daily. 0 Active Comment on above: Take one capsule by mouth twice daily. omeprazole 20 mg delayed release oral capsule (20 sources) Proton Pump Inhibitor Start : 03-23 End: 03-17 take 1 capsule by mouth twice daily Omeprazole 20 MG capsule Discontinued 20 mg PO TWICE A DAY March 23, 2017 12:00am March 17, 2019 1:16pm oxybutynin chloride 5 mg oral tablet (20 sources) Cholinergic Muscarinic Antagonist Start : 12-07 End: 03-17 take 2 tablets by mouth once daily [...] 11, 2019 12:00am July 15, 2020 2:06pm SUPPLEMENT Start: 07-11-2019 End: 07-15-2020 Prosight Discontinued 1 [...] 17, 2019 12:00am July 15, 2020 2:06pm ACID REFLUX sucralfate 1000 mg oral tablet (20 sources) [...] one (1) tablet daily - without iron 02 0903/17/2006 Active Comment on above: Take one (1) [...] 03-22-2020 Chronic Other aftercare (2 sources) 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; Translations: [Other usp (current) drug therapy] Onset: 05-16-2025 Episodic Other and unspecified benign neoplasm (1 source) History of polyp of colon; Translations: [Personal history of colonic polyps] Episodic Other circulatory disease (19 sources) H/O: hypertension; Translations: [Personal history of [...] injuries and conditions due to external causes (18 sources) Closed injury of head; Translations: [Unspecified injury of head, initial encounter] 12-31-2022 Episodic Other liver diseases (20 sources) Increased creatine kinase level; Translations: [Abnormal levels of other serum enzymes] 08-30-2019 Episodic Other lower respiratory disease (20 sources) Dyspnea; Translations: [Shortness of breath] Onset: 02-04-2017 03-22-2020 Episodic Other male genital disorders (19 sources) Hemorrhage of scrotum; Translations: [Vascular disorders of male genital organs] 11-16-2022 Chronic Other nervous system disorders (20 sources) Normal pressure hydrocephalus; Translations: [(Idiopathic) normal pressure hydrocephalus] 11-06-2016 Chronic Other nervous system disorders (20 sources) Tremor; Translations: [Tremor, unspecified] 06-27-2019 Episodic Other nervous system disorders (17 sources) Ataxia; Translations: [Ataxia, unspecified] 01-04-2023 Episodic [...] 01-08-2023 01-04-2023 Episodic Peripheral and visceral atherosclerosis (8 sources) Peripheral vascular disease; Translations: [Peripheral vascular [...] alveolar hypoventilation] 09-14-2018 Chronic Residual codes; unclassified (7 sources) Bilateral lower limb edema; Translations: [Localized edema] 11-01-2024 Episodic Schizophrenia and other psychotic disorders (8 sources) Chronic schizoaffective schizophrenia; Translations: [Schizoaffective disorder, unspecified] Onset: 07-14-2013 03-22-2020 Chronic Sprains and strains (20 sources) Sprain of foot; Translations: [Unspecified sprain of left foot, initial encounter] 04-23-2014 Episodic Suicide and intentional self-inflicted injury (20 sources) Suicidal thoughts; Translations: [Suicidal ideations] 08-20-2022 [...] Test Name Value Interpretation Reference Range Facility Anion gap in Serum or Plasma Ordered By: Avani Eduardo on 05-08-2025 Anion gap [Moles/Vol] 13 mmol/L 5-15 [facility] Automated blood erythrocyte countOrdered By: Avani Eduardo on 05-08-2025 RBC (Bld) [#/Vol] 4.10 10*6/uL Low 4.6-6.2 [facility] Comment on above: Order Comment: 304-2 Performed By: #### L 500.2500, L501.5200, [id number] #### [facility] [place], [address] Automated blood hematocrit ( percentage)Ordered By: Avani Eduardo on 05-08-2025 Hematocrit (Bld) [Volume fraction] 39.1 % Low 40-54 [facility] Comment on above: Order Comment: 304-2 Performed By: #### L 500.2500, L501.5200, [id number] #### [facility] [address] [place], [address] BUN/creatinine ratioOrdered By: Avani Eduardo on 05-08-2025 Urea nitrogen/Creatinine [Mass ratio] 16.3 mg/mg - [facility] Basic Metabolic Profile (BMP )on 05-08-2025 BUN/CRE 16.3 RATIO Normal - [facility] Comment on above: Order Comment: 304-2 Performed By: #### L 500.2500, [id number], [id number] #### [facility] [address] [place], [address] Calcium [Mass/Vol] 9.0 mg/dL Normal 7.6-11.0 [facility] Comment on above: Order Comment: 304-2 Performed By: #### L 500.2500, [id number], [id number] #### [facility] [address] [place], [address] Chloride [Moles/Vol] 100 mmol/L Normal 98-108 [facility] Comment on above: Order Comment: 304-2 Performed By: #### L 500.2500, [id number], [id number] #### [facility] [address] [place], [address] CO2 [Moles/Vol] 26.3 mmol/L Normal 21.0-32.0 [facility] Comment on above: Order Comment: 304-2 Performed By: #### L 500.2500, [id number], [id number] #### [facility] [address] [place], [address] Creatinine [Mass/Vol] 0.57 mg/dL Low 0.70-1.20 [facility] Comment on above: Order Comment: 304-2 Performed By: #### L 500.2500, [id number], [id number] #### [facility] [address] [place], [address] GAP 13 Normal 5-15 [facility] Comment on above: Order Comment: 304-2 Performed By: #### L 500.2500, [id number], [id number] #### [facility] [address] [place], [address] GFR/1.73 sq M.predicted among non-blacks MDRD (S/P/Bld) [Vol rate/Area] 102 mL/min/{1.73_m2} Normal >60 [facility] Comment on above: Order Comment: 304-2 Result Comment: mL/m in/1.73m2 CKD-EPI Creatinine Equation (2020) Performed By: #### L 500.2500, [id number], [id number] #### [facility] [address] [place], [address] Glucose [Mass/Vol] 140 mg/dL High 70-99 [facility] Comment on above: Order Comment: 304-2 Performed By: #### L 500.2500, [id number], [id number] #### [facility] [address] [place], [address] Potassium [Moles/Vol] 3.5 mmol/L Normal 3.3-5.1 [facility] Comment on above: Order Comment: 304-2 Performed By: #### L 500.2500, [id number], [id number] #### [facility] [address] [place], [address] Sodium [Moles/Vol] 139 mmol/L Normal 133-145 [facility] Comment on above: Order Comment: 304-2 Performed By: #### L 500.2500, [id number], [id number] #### [facility] [address] [place], [address] Urea nitrogen [Mass/Vol] 9 mg/dL Normal 4-19 [facility] Comment on above: Order Comment: 304-2 Performed By: #### L 500.2500, [id number], [id number] #### [facility] [address] [place], [address] CBC-Complete Blood Cnt No Di ffon 05-08-2025 RDW SD 47.3 fl High 35.1-43.9 [facility] Comment on above: Order Comment: 304-2 Performed By: #### L 500.2500, [id number], [id number] #### [facility] [address] [place], [address] Carbon dioxide, total [Moles /volume] in Central venous bloodOrdered By: Avani Eduardo on 05-08-2025 CO2 [Moles/Vol] 26.3 mmol/L 21.0-32.0 [facility] Chloride assayOrdered By: Adriel Eduardo on 05-08-2025 Chloride [Moles/Vol] 100 mmol/L 98-108 [facility] Erythrocyte distribution wid th ratioOrdered By: Avani Eduardo on 05-08-2025 Erythrocyte distribution width (RBC) [Ratio] 13.4 % Normal 11.6-14.6 [facility] Comment on above: Order Comment: 304-2 Performed By: #### L 500.2500, [id number], [id number] #### [facility] [address] [place], [address] Erythrocyte distribution wid th standard deviationOrdered By: Avani Eduardo on 05-08-2025 Erythrocyte distribution width (RBC) [Ratio] 47.3 fl High 35.1-43.9 [facility] Glomerular filtration rate ( GFR) estimation/1.73 sq m using serum, plasma, or whole bOrdered By: Avani Eduardo on 05-08-2025 GFR/1.73 sq M.predicted among non-blacks MDRD (S/P/Bld) [Vol rate/Area] 102 mL/min/{1.73_m2} >60 [facility] Comment on above: mL/min/1.73m2 CKD-EP I Creatinine Equation (2020) Hemoglobin measurementOrdere d By: Avani Eduardo on 05-08-2025 Hemoglobin (Bld) [Mass/Vol] 13.3 g/dL Normal 13.0-16.5 [facility] Comment on above: Order Comment: 304-2 Performed By: #### L 500.2500, [id number], [id number] #### [facility] [address] [place], [address] MCV (mean corpuscular volume ) determinationOrdered By: Avani Eduardo on 05-08-2025 MCV (RBC) [Entitic vol] 95.4 fL High 80-94 [facility] Comment on above: Order Comment: 304-2 Performed By: #### L 500.2500, L501.5200, L501.9520 #### [facility] [address] [place], [address] Magnesiumon 05-08-2025 Magnesium [Mass/Vol] 2.1 mg/dL Normal 1.5-2.2 [facility] Comment on above: Order Comment: 304-2 Performed By: #### L 500.2500, L501.5200, L501.9520 #### [facility] [address] [place], [address] Magnesium measurement (mass/ volume)Ordered By: Avani Eduardo on 05-08-2025 Magnesium (Unsp spec) [Mass/Vol] 2.1 mg/dL 1.5-2.2 [facility] Mean corpuscular hemoglobin (MCH) determinationOrdered By: Avani Eduardo on 05-08-2025 MCH (RBC) [Entitic mass] 32.4 pg High 27.0-32.0 [facility] Comment on above: Order Comment: 304-2 Performed By: #### L 500.2500, L501.5200, L501.9520 #### [facility] [address] [place], [address] Mean corpuscular hemoglobin concentration (MCHC) determinationOrdered By: Avani Eduardo on 05-08-2025 MCHC (RBC) [Mass/Vol] 34.0 g/dL Normal 32-36 [facility] Comment on above: Order Comment: 304-2 Performed By: #### L 500.2500, L501.5200, L501.9520 #### [facility] [address] [place], [address] Mean platelet volume determi nationOrdered By: Avani Eduardo on 05-08-2025 Platelet mean volume (Bld) [Entitic vol] 9.3 fL Normal 6.2-12.0 [facility] Comment on above: Order Comment: 304-2 Performed By: #### L 500.2500, L501.5200, L501.9520 #### [facility] [address] [place], [address] Platelet countOrdered By: Adriel Eduardo on 05-08-2025 Platelets (Bld) [#/Vol] 197 10*3/uL Normal 150-450 [facility] Comment on above: Order Comment: 304-2 Performed By: #### L 500.2500, L501.5200, L501.9520 #### [facility] [address] [place], [address] Potassium measurement (mass/ volume)Ordered By: Avani Eduardo on 05-08-2025 Potassium (Unsp spec) [Mass/Vol] 3.5 mmol/L 3.3-5.1 [facility] Serum creatinine measurement (mass/volume)Ordered By: Avani Edurado on 05-08-2025 Creatinine [Mass/Vol] 0.57 mg/dL Low 0.70-1.20 [facility] Serum glucose measurement (m ass/volume)Ordered By: Avani Eduardo on 05-08-2025 Glucose [Mass/Vol] 140 mg/dL High 70-99 [facility] Serum or plasma calcium minda urement (mass/volume)Ordered By: Avani Eduardo on 05-08-2025 Calcium [Mass/Vol] 9.0 mg/dL 7.6-11.0 [facility] Serum or plasma urea nitroge n measurement (mass/volume)Ordered By: Avani Eduardo on 05-08-2025 Urea nitrogen [Mass/Vol] 9 mg/dL 4-19 [facility] Sodium levelOrdered By: Emmanuel Eduardo on 05-08-2025 Sodium [Moles/Vol] 139 mmol/L 133-145 [facility] White blood cell (WBC) count Ordered By: Avani Eduardo on 05-08-2025 WBC (Bld) [#/Vol] 6.9 10*3/uL Normal 4.4-11.0 [facility] Comment on above: Order Comment: 304-2 Performed By: #### L 500.2500, L501.5200, L501.9520 #### [facility] [address] [place], [place], [id number] TSH DL <= 0.005 mIU/L QnOrde red By: Avani Eduardo on 05-01-2025 TSH Qn 5.000 uIU/mL High 0.300-4.20 0 [facility] Thyroid Stim Hormone (TSH)on 05-01-2025 TSH 5.000 uIU/mL High 0.300-4.20 0 [facility] Comment on above: Performed By: #### L 500.2500, L501.5200, L501.9520 #### [facility] [address] [facility] [place], [place], [id number] Anion gap in Serum or Plasma Ordered By: Avani Eduardo on 04-24-2025 Anion gap [Moles/Vol] 12 mmol/L 5-15 [facility] BUN/creatinine ratioOrdered By: Avani Eduardo on 04-24-2025 Urea nitrogen/Creatinine [Mass ratio] 20.2 mg/mg High 10-20 [facility] Basic Metabolic Profile (BMP )on 04-24-2025 BUN/CRE 20.2 RATIO High 10-20 [facility] Comment on above: Order Comment: 304.2 Performed By: #### L 500.2500, L501.5200 #### [facility] [address] [place], [address] Calcium [Mass/Vol] 9.1 mg/dL Normal 7.6-11.0 [facility] Comment on above: Order Comment: 304.2 Performed By: #### L 500.2500, L501.5200 #### [facility] [address] [place], [address] Chloride [Moles/Vol] 96 mmol/L Low 98-108 [facility] Comment on above: Order Comment: 304.2 Performed By: #### L 500.2500, L501.5200 #### [facility] [address] [place], [address] CO2 [Moles/Vol] 29.3 mmol/L Normal 21.0-32.0 [facility] Comment on above: Order Comment: 304.2 Performed By: #### L 500.2500, L501.5200 #### [facility] [address] [place], [address] Creatinine [Mass/Vol] 0.76 mg/dL Normal 0.70-1.20 [facility] Comment on above: Order Comment: 304.2 Performed By: #### L 500.2500, L501.5200 #### [facility] [address] [place], [address] GAP 12 Normal 5-15 [facility] Comment on above: Order Comment: 304.2 Performed By: #### L 500.2500, L501.5200 #### [facility] [address] [place], [address] GFR/1.73 sq M.predicted among non-blacks MDRD (S/P/Bld) [Vol rate/Area] 94 mL/min/{1.73_m2} Normal >60 [facility] Comment on above: Order Comment: 304.2 Result Comment: mL/m in/1.73m2 CKD-EPI Creatinine Equation (2020) Performed By: #### L 500.2500, L501.5200 #### [facility] [address] [place], [address] Glucose [Mass/Vol] 147 mg/dL High 70-99 [facility] Comment on above: Order Comment: 304.2 Performed By: #### L 500.2500, L501.5200 #### [facility] [address] [place], [address] Potassium [Moles/Vol] 3.8 mmol/L Normal 3.3-5.1 [facility] Comment on above: Order Comment: 304.2 Performed By: #### L 500.2500, L501.5200 #### [facility] [address] [place], [address] Sodium [Moles/Vol] 138 mmol/L Normal 133-145 [facility] Comment on above: Order Comment: 304.2 Performed By: #### L 500.2500, L501.5200 #### [facility] [address] [place], [address] Urea nitrogen [Mass/Vol] 15 mg/dL Normal 4-19 [facility] Comment on above: Order Comment: 304.2 Performed By: #### L 500.2500, L501.5200 #### [facility] [address] [place], [address] Carbon dioxide, total [Moles /volume] in Central venous bloodOrdered By: Avani Eduardo on 04-24-2025 CO2 [Moles/Vol] 29.3 mmol/L 21.0-32.0 [facility] Chloride assayOrdered By: Adriel Eduardo on 04-24-2025 Chloride [Moles/Vol] 96 mmol/L Low 98-108 [facility] Glomerular filtration rate ( GFR) estimation/1.73 sq m using serum, plasma, or whole bOrdered By: Avani Eduardo on 04-24-2025 GFR/1.73 sq M.predicted among non-blacks MDRD (S/P/Bld) [Vol rate/Area] 94 mL/min/{1.73_m2} >60 [facility] Comment on above: mL/min/1.73m2 CKD-EP I Creatinine Equation (2020) Magnesiumon 04-24-2025 Magnesium [Mass/Vol] 2.3 mg/dL High 1.5-2.2 [facility] Comment on above: Order Comment: 304.2 Performed By: #### L 500.2500, L501.5200 #### [facility] [address] [place], [address] Magnesium measurement (mass/ volume)Ordered By: Avani Eduardo on 04-24-2025 Magnesium (Unsp spec) [Mass/Vol] 2.3 mg/dL High 1.5-2.2 [facility] Potassium measurement (mass/ volume)Ordered By: Avani Eduardo on 04-24-2025 Potassium (Unsp spec) [Mass/Vol] 3.8 mmol/L 3.3-5.1 [facility] Serum creatinine measurement (mass/volume)Ordered By: Avani Eduardo on 04-24-2025 Creatinine [Mass/Vol] 0.76 mg/dL 0.70-1.20 [facility] Serum glucose measurement (m ass/volume)Ordered By: Avani Eduardo on 04-24-2025 Glucose [Mass/Vol] 147 mg/dL High 70-99 [facility] Serum or plasma calcium minda urement (mass/volume)Ordered By: Avani Eduardo on 04-24-2025 Calcium [Mass/Vol] 9.1 mg/dL 7.6-11.0 [facility] Serum or plasma urea nitroge n measurement (mass/volume)Ordered By: Avani Eduardo on 04-24-2025 Urea nitrogen [Mass/Vol] 15 mg/dL 4-19 [facility] Sodium levelOrdered By: Emmanuel Eduardo on 04-24-2025 Sodium [Moles/Vol] 138 mmol/L 133-145 [facility] Anion gap in Serum or Plasma Ordered By: Avani Eduardo on 04-03-2025 Anion gap [Moles/Vol] 17 mmol/L High 5- [facility] BUN/creatinine ratioOrdered By: Avani Eduardo on 04-03-2025 Urea nitrogen/Creatinine [Mass ratio] 14.2 mg/mg - [facility] Basic Metabolic Profile (BMP )on 04-03-2025 BUN/CRE 14.2 RATIO Normal 07-23 [facility] Comment on above: Order Comment: 304.2 Performed By: #### L 501.8100 #### [facility] [address] [place], [address] Calcium [Mass/Vol] 9.8 mg/dL Normal 7.6-11.0 [facility] Comment on above: Order Comment: 304.2 Performed By: #### L 501.8100 #### [facility] [address] [place], [address] Chloride [Moles/Vol] 96 mmol/L Low 98-108 [facility] Comment on above: Order Comment: 304.2 Performed By: #### L 501.8100 #### [facility] [address] [place], [address] CO2 [Moles/Vol] 24.9 mmol/L Normal 21.0-32.0 [facility] Comment on above: Order Comment: 304.2 Performed By: #### L 501.8100 #### [facility] [address] [place], [address] Creatinine [Mass/Vol] 0.84 mg/dL Normal 0.70-1.20 [facility] Comment on above: Order Comment: 304.2 Performed By: #### L 501.8100 #### [facility] [address] [place], [address] GAP 17 High 5-15 [facility] Comment on above: Order Comment: 304.2 Performed By: #### L 501.8100 #### [facility] [address] [place], [address] GFR/1.73 sq M.predicted among non-blacks MDRD (S/P/Bld) [Vol rate/Area] 91 mL/min/{1.73_m2} Normal >60 [facility] Comment on above: Order Comment: 304.2 Result Comment: mL/m in/1.73m2 CKD-EPI Creatinine Equation (2020) Performed By: #### L 501.8100 #### [facility] [address] [place], [address] Glucose [Mass/Vol] 229 mg/dL High 70-99 [facility] Comment on above: Order Comment: 304.2 Performed By: #### L 501.8100 #### [facility] [address] [place], [address] Potassium [Moles/Vol] 4.2 mmol/L Normal 3.3-5.1 [facility] Comment on above: Order Comment: 304.2 Result Comment: Hemo lysis present, Results??could be affected. ?? Performed By: #### L 501.8100 #### [facility] [address] [place], [address] Sodium [Moles/Vol] 137 mmol/L Normal 133-145 [facility] Comment on above: Order Comment: 304.2 Performed By: #### L 501.8100 #### [facility] [address] [place], [address] Urea nitrogen [Mass/Vol] 12 mg/dL Normal 4-19 [facility] Comment on above: Order Comment: 304.2 Performed By: #### L 501.8100 #### [facility] [address] [place], [address] CBC-Complete Blood Cnt No Di on 04-03-2025 Erythrocyte distribution width (RBC) [Ratio] 13.8 % Normal 11.6-14.6 [facility] Comment on above: Order Comment: 304.2 Performed By: #### L 501.8100 #### [facility] [address] [place], [address] Hematocrit (Bld) [Volume fraction] 44.7 % Normal 40-54 [facility] Comment on above: Order Comment: 304.2 Performed By: #### L 501.8100 #### [facility] [address] [place], [address] Hemoglobin (Bld) [Mass/Vol] 15.1 g/dL Normal 13.0-16.5 [facility] Comment on above: Order Comment: 304.2 Performed By: #### L 501.8100 #### [facility] [address] [place], [address] MCH (RBC) [Entitic mass] 32.4 pg High 27.0-32.0 [facility] Comment on above: Order Comment: 304.2 Performed By: #### L 501.8100 #### [facility] [address] [place], [address] MCHC (RBC) [Mass/Vol] 33.8 g/dL Normal 32-36 [facility] Comment on above: Order Comment: 304.2 Performed By: #### L 501.8100 #### [facility] [address] [place], [address] MCV (RBC) [Entitic vol] 95.9 fL High 80-94 [facility] Comment on above: Order Comment: 304.2 Performed By: #### L 501.8100 #### [facility] [address] [place], [address] Platelet mean volume (Bld) [Entitic vol] 9.5 fL Normal 6.2-12.0 [facility] Comment on above: Order Comment: 304.2 Performed By: #### L 501.8100 #### [facility] [address] [place], [address] Platelets (Bld) [#/Vol] 252 10*3/uL Normal 150-450 [facility] Comment on above: Order Comment: 304.2 Performed By: #### L 501.8100 #### [facility] [address] [place], [address] RBC (Bld) [#/Vol] 4.66 10*6/uL Normal 4.6-6.2 [facility] Comment on above: Order Comment: 304.2 Performed By: #### L 501.8100 #### [facility] [address] [place], [address] RDW SD 49.1 fl High 35.1-43.9 [facility] Comment on above: Order Comment: 304.2 Performed By: #### L 501.8100 #### [facility] [address] [place], [address] WBC (Bld) [#/Vol] 7.2 10*3/uL Normal 4.4-11.0 [facility] Comment on above: Order Comment: 304.2 Performed By: #### L 501.8100 #### [facility] [address] [place], [address] Carbon dioxide, total [Moles /volume] in Central venous bloodOrdered By: Avani Eduardo on 04-03-2025 CO2 [Moles/Vol] 24.9 mmol/L 21.0-32.0 [facility] Chloride assayOrdered By: Adriel Eduardo on 04-03-2025 Chloride [Moles/Vol] 96 mmol/L Low 98-108 [facility] Erythrocyte distribution wid th ratioOrdered By: Avani Eduardo on 04-03-2025 Erythrocyte distribution width (RBC) [Ratio] 13.8 % 11.6-14.6 [facility] Erythrocyte distribution wid th standard deviationOrdered By: Avani Eduardo on 04-03-2025 Erythrocyte distribution width (RBC) [Ratio] 49.1 fl High 35.1-43.9 [facility] Glomerular filtration rate ( GFR) estimation/1.73 sq m using serum, plasma, or whole bOrdered By: Avani Eduardo on 04-03-2025 GFR/1.73 sq M.predicted among non-blacks MDRD (S/P/Bld) [Vol rate/Area] 91 mL/min/{1.73_m2} >60 [facility] Comment on above: mL/min/1.73m2 CKD-EP I Creatinine Equation (2020) Hematocrit Auto (Bld) [Volum e fraction]Ordered By: Avanigómez Eduardo on 04-03-2025 Hematocrit (Bld) [Volume fraction] 44.7 % 40-54 [facility] Hemoglobin measurementOrdere d By: Avani Eduardo on 04-03-2025 Hemoglobin (Bld) [Mass/Vol] 15.1 g/dL 13.0-16.5 [facility] MCV (mean corpuscular volume ) determinationOrdered By: Avani Eduardo on 04-03-2025 MCV (RBC) [Entitic vol] 95.9 fL High 80-94 [facility] Magnesiumon 04-03-2025 Magnesium [Mass/Vol] 2.3 mg/dL High 1.5-2.2 [facility] Comment on above: Order Comment: 304.2 Performed By: #### L 501.8100 #### [facility] [address] [place] [address], [address] Magnesium measurement (mass/ volume)Ordered By: Avani Eduardo on 04-03-2025 Magnesium (Unsp spec) [Mass/Vol] 2.3 mg/dL High 1.5-2.2 [facility] Mean corpuscular hemoglobin (MCH) determinationOrdered By: Avani Eduardo on 04-03-2025 MCH (RBC) [Entitic mass] 32.4 pg High 27.0-32.0 [facility] Mean corpuscular hemoglobin concentration (MCHC) determinationOrdered By: Avani Eduardo on 04-03-2025 MCHC (RBC) [Mass/Vol] 33.8 g/dL 32-36 [facility] Mean platelet volume determi nationOrdered By: Avani Eduardo on 04-03-2025 Platelet mean volume (Bld) [Entitic vol] 9.5 fL 6.2-12.0 [facility] Platelet countOrdered By: Adriel Eduardo on 04-03-2025 Platelets (Bld) [#/Vol] 252 10*3/uL 150-450 [facility] Potassium measurement (mass/ volume)Ordered By: Avani Eduardo on 04-03-2025 Potassium (Unsp spec) [Mass/Vol] 4.2 mmol/L 3.3-5.1 [facility] Comment on above: Hemolysis present, R esults could be affected. RBC Auto (Bld) [#/Vol]Ordere d By: Avani Eduardo on 04-03-2025 RBC (Bld) [#/Vol] 4.66 10*6/uL 4.6-6.2 [facility] Serum creatinine measurement (mass/volume)Ordered By: Avani Eduardo on 04-03-2025 Creatinine [Mass/Vol] 0.84 mg/dL 0.70-1.20 [facility] Serum glucose measurement (m ass/volume)Ordered By: Avnai Eduardo on 04-03-2025 Glucose [Mass/Vol] 229 mg/dL High 70-99 [facility] Serum or plasma calcium minda urement (mass/volume)Ordered By: Avani Eduardo on 04-03-2025 Calcium [Mass/Vol] 9.8 mg/dL 7.6-11.0 [facility] Serum or plasma urea nitroge n measurement (mass/volume)Ordered By: Avani Eduardo on 04-03-2025 Urea nitrogen [Mass/Vol] 12 mg/dL 4-19 [facility] Sodium levelOrdered By: Emmanuel Eduardo on 04-03-2025 Sodium [Moles/Vol] 137 mmol/L 133-145 [facility] White blood cell (WBC) count Ordered By: Avani Eduardo on 04-03-2025 WBC (Bld) [#/Vol] 7.2 10*3/uL 4.4-11.0 [facility] TSH DL <= 0.005 mIU/L QnOrde red By: Avani Eduardo on 02-28-2025 TSH Qn 4.330 uIU/mL High 0.300-4.20 0 [facility] Thyroid Stim Hormone (TSH)on 02-28-2025 TSH 4.330 uIU/mL High 0.300-4.20 0 [facility] Comment on above: Order Comment: 304.2 Performed By: #### L 501.8100 #### [facility] [address] [place], [place], [address] Arterial study reportOrdered By: Eris Capps on 02-13-2025 Noninvasive arteriosclerosis study report [facility] [address] [place] [address] Lower Ext Art Exam w/o Exercis 02/13/25 0911 MR#: [id number] Acct: [id number] Name: ANJEL ROSS Rep #:[id number] : 1950 74 From: Eris Zepeda Attending Dr: PIO House Stat us: REG CLI Ordering Dr: Kourtney Farrar Date: Location: [facility] Sex: M C Admitted: Reason For [...] By: Micheline Busby RVT 02/13/25 105 Date _ Eris Capps MD CC: [facility]; Avani Eduardo MD ~ Date Dictated: 02/13/25 09 Date Transcribed: 02/13/251056 Sales And Service Representative: Signed [facility] Work Phone: Lower Ext Art Exam w/o Exerc jerry 02-13-2025 Lower Ext Art Exam w/o Exercis [facility] [address] [place], [place] [address] [address] Lower Ext Art Exam w/o Exercis 02/13/25 0911 MR#: [id number] Acct: [id number] Name: ANJEL ROSS Rep #: [id number] : 1950 74 From: Eris Capps MD Attending Dr: PIO House Status: REG CLI Ordering Dr: Kourtney Farrar Date: 02/13/25 Location: [facility] Sex: M C Admitted: Reason For [...] Avani Eduardo Performed By: Micheline Busby RVT 02/13/251056 Date Eris Capps MD CC: [facility]; Avani Eduardo MD Date Dictated: 02/13/25910 Date Transcribed: 02/13/251056 Sales And Service Representative: Signed Normal [facility] Anion gap in Serum or Plasma Ordered By: Avani Eduardo on 02-01-2025 Anion gap [Moles/Vol] 13 mmol/L 5-15 [facility] BUN/creatinine ratioOrdered By: Avani Eduardo on 02-01-2025 Urea nitrogen/Creatinine [Mass ratio] 16.2 mg/mg 10- [facility] Basic Metabolic Profile (BMP )on 02-01-2025 BUN/CRE 16.2 RATIO Normal - [facility] Comment on above: Order Comment: 304.2 Performed By: #### L 501.8100 #### [facility] [address] [place], [address] Calcium [Mass/Vol] 8.4 mg/dL Normal 7.6-11.0 [facility] Comment on above: Order Comment: 304.2 Performed By: #### L 501.8100 #### [facility] [address] [place], [address] Chloride [Moles/Vol] 98 mmol/L Normal 98-108 [facility] Comment on above: Order Comment: 304.2 Performed By: #### L 768.8100 #### [facility] [address] [place], [address] CO2 [Moles/Vol] 25.5 mmol/L Normal 21.0-32.0 [facility] Comment on above: Order Comment: 304.2 Performed By: #### L 501.8100 #### [facility] [address] [place], [address] Creatinine [Mass/Vol] 0.64 mg/dL Low 0.70-1.20 [facility] Comment on above: Order Comment: 304.2 Performed By: #### L 501.8100 #### [facility] [address] [place], [address] GAP 13 Normal 5-15 [facility] Comment on above: Order Comment: 304.2 Performed By: #### L 501.8100 #### [facility] [address] [place], [address] GFR/1.73 sq M.predicted among non-blacks MDRD (S/P/Bld) [Vol rate/Area] 99 mL/min/{1.73_m2} Normal >60 [facility] Comment on above: Order Comment: 304.2 Result Comment: mL/m in/1.73m2 CKD-EPI Creatinine Equation (2020) Performed By: #### L 501.8100 #### [facility] [address] [place], [address] Glucose [Mass/Vol] 203 mg/dL High 70-99 [facility] Comment on above: Order Comment: 304.2 Performed By: #### L 501.8100 #### [facility] [address] [place], [address] Potassium [Moles/Vol] 3.5 mmol/L Normal 3.3-5.1 [facility] Comment on above: Order Comment: 304.2 Performed By: #### L 501.8100 #### [facility] [address] [place], [address] Sodium [Moles/Vol] 136 mmol/L Normal 133-145 [facility] Comment on above: Order Comment: 304.2 Performed By: #### L 501.8100 #### [facility] [address] [place], [address] Urea nitrogen [Mass/Vol] 10 mg/dL Normal 4-19 [facility] Comment on above: Order Comment: 304.2 Performed By: #### L 501.8100 #### [facility] [address] [place], [address] CBC-Complete Blood Cnt No Di ffon 02-01-2025 Erythrocyte distribution width (RBC) [Ratio] 13.2 % Normal 11.6-14.6 [facility] Comment on above: Order Comment: 304.2 Performed By: #### L 501.8100 #### [facility] [address] [place], [address] Hematocrit (Bld) [Volume fraction] 36.0 % Low 40-54 [facility] Comment on above: Order Comment: 304.2 Performed By: #### L 501.8100 #### [facility] [address] [place], [address] Hemoglobin (Bld) [Mass/Vol] 12.7 g/dL Low 13.0-16.5 [facility] Comment on above: Order Comment: 304.2 Performed By: #### L 501.8100 #### [facility] [address] [place], [address] MCH (RBC) [Entitic mass] 32.6 pg High 27.0-32.0 [facility] Comment on above: Order Comment: 304.2 Performed By: #### L 501.8100 #### [facility] [address] [place], [address] MCHC (RBC) [Mass/Vol] 35.3 g/dL Normal 32-36 [facility] Comment on above: Order Comment: 304.2 Performed By: #### L [id number] #### [facility] [address] [place], [address] MCV (RBC) [Entitic vol] 92.3 fL Normal 80-94 [facility] Comment on above: Order Comment: 304.2 Performed By: #### L 501.8100 #### [facility] [address] [place], [address] Platelet mean volume (Bld) [Entitic vol] 8.9 fL Normal 6.2-12.0 [facility] Comment on above: Order Comment: 304.2 Performed By: #### L 501.8100 #### [facility] [address] [place], [address] Platelets (Bld) [#/Vol] 158 10*3/uL Normal 150-450 [facility] Comment on above: Order Comment: 304.2 Performed By: #### L 501.8100 #### [facility] [address] [place], [address] RBC (Bld) [#/Vol] 3.90 10*6/uL Low 4.6-6.2 [facility] Comment on above: Order Comment: 304.2 Performed By: #### L 501.8100 #### [facility] [address] [place], [address] RDW SD 44.3 fl High 35.1-43.9 [facility] Comment on above: Order Comment: 304.2 Performed By: #### L 501.8100 #### [facility] [address] [place], [address] WBC (Bld) [#/Vol] 6.1 10*3/uL Normal 4.4-11.0 [facility] Comment on above: Order Comment: 304.2 Performed By: #### L 501.8100 #### [facility] [address] [place], [address] Carbon dioxide, total [Moles /volume] in Central venous bloodOrdered By: Avani Eduardo on 02-01-2025 CO2 [Moles/Vol] 25.5 mmol/L 21.0-32.0 [facility] Chloride assayOrdered By: Adriel Eduardo on 02-01-2025 Chloride [Moles/Vol] 98 mmol/L 98-108 [facility] Erythrocyte distribution wid th ratioOrdered By: Avani Eduardo on 02-01-2025 Erythrocyte distribution width (RBC) [Ratio] 13.2 % 11.6-14.6 [facility] Erythrocyte distribution wid th standard deviationOrdered By: Avani Eduardo on 02-01-2025 Erythrocyte distribution width (RBC) [Ratio] 44.3 fl High 35.1-43.9 [facility] Glomerular filtration rate ( GFR) estimation/1.73 sq m using serum, plasma, or whole bOrdered By: Avani Eduardo on 02-01-2025 GFR/1.73 sq M.predicted among non-blacks MDRD (S/P/Bld) [Vol rate/Area] 99 mL/min/{1.73_m2} >60 [facility] Comment on above: mL/min/1.73m2 CKD-EP I Creatinine Equation (2020) Hematocrit Auto (Bld) [Volum e fraction]Ordered By: Avani Eduardo on 02-01-2025 Hematocrit (Bld) [Volume fraction] 36.0 % Low 40-54 [facility] Hemoglobin measurementOrdere d By: Avani Eduardo on 02-01-2025 Hemoglobin (Bld) [Mass/Vol] 12.7 g/dL Low 13.0-16.5 [facility] MCV (mean corpuscular volume ) determinationOrdered By: Avani Eduardo on 02-01-2025 MCV (RBC) [Entitic vol] 92.3 fL 80-94 [facility] Magnesiumon 02-01-2025 Magnesium [Mass/Vol] 2.2 mg/dL Normal 1.5-2.2 [facility] Comment on above: Order Comment: 304.2 Performed By: #### L 501.8100 #### [facility] [address] [place], [address] Magnesium measurement (mass/ volume)Ordered By: Avani Eduardo on 02-01-2025 Magnesium (Unsp spec) [Mass/Vol] 2.2 mg/dL 1.5-2.2 [facility] Mean corpuscular hemoglobin (MCH) determinationOrdered By: Avani Eduardo on 02-01-2025 MCH (RBC) [Entitic mass] 32.6 pg High 27.0-32.0 [facility] Mean corpuscular hemoglobin concentration (MCHC) determinationOrdered By: Avani Eduardo on 02-01-2025 MCHC (RBC) [Mass/Vol] 35.3 g/dL 32-36 [facility] Mean platelet volume determi nationOrdered By: Avani Eduardo on 02-01-2025 Platelet mean volume (Bld) [Entitic vol] 8.9 fL 6.2-12.0 [facility] Platelet countOrdered By: Adriel Eduardo on 02-01-2025 Platelets (Bld) [#/Vol] 158 10*3/uL 150-450 [facility] Potassium measurement (mass/ volume)Ordered By: Avani Eduardo on 02-01-2025 Potassium (Unsp spec) [Mass/Vol] 3.5 mmol/L 3.3-5.1 [facility] RBC Auto (Bld) [#/Vol]Ordere d By: Avani Eduardo on 02-01-2025 RBC (Bld) [#/Vol] 3.90 10*6/uL Low 4.6-6.2 [facility] Serum creatinine measurement (mass/volume)Ordered By: Avani Eduardo on 02-01-2025 Creatinine [Mass/Vol] 0.64 mg/dL Low 0.70-1.20 [facility] Serum glucose measurement (m ass/volume)Ordered By: Avani Eduardo on 02-01-2025 Glucose [Mass/Vol] 203 mg/dL High 70-99 [facility] Serum or plasma calcium minda urement (mass/volume)Ordered By: Avani Eduardo on 02-01-2025 Calcium [Mass/Vol] 8.4 mg/dL 7.6-11.0 [facility] Serum or plasma urea nitroge n measurement (mass/volume)Ordered By: Avani Eduardo on 02-01-2025 Urea nitrogen [Mass/Vol] 10 mg/dL 4-19 [facility] Sodium levelOrdered By: Emmanuel Eduardo on 02-01-2025 Sodium [Moles/Vol] 136 mmol/L 133-145 [facility] White blood cell (WBC) count Ordered By: Avani Eduardo on 02-01-2025 WBC (Bld) [#/Vol] 6.1 10*3/uL 4.4-11.0 [facility] MR/BMS.PAULASon 01-31-2025 MR/BMS.PAULAS [facility] Vascular Surgery [address] [place] [address] OFFICE VISIT Date of Service: 01/31/25 MR#: [id number] Acct: [id number] Name: ANJEL ROSS Rep #: [id number] 2 : 1950 Provider: PIO House Age/Sex: 74/M Location: [facility] Status: Signed Intake Vital Signs 01/15/23 11:23 [...] bilateral lower extremity arterial duplex performed at [facility] reporting atherosclerotic (more content not included)... Normal [facility] Hemoglobin A1con 01-05-2025 HbA1c (Bld) [Mass fraction] 8.1 % Normal <=5.6 [facility] Comment on above: Order Comment: 304-2 Performed By: #### L 501.9985 #### [facility] [address] [place], [place], [id number] Hemoglobin A1c percentageOrd ered By: Avani Eduardo on 01-05-2025 HbA1c (Bld) [Mass fraction] 8.1 % >5.7 [facility] Serum or plasma valproate me asurement (mass/volume)Ordered By: Avani Eduardo on 01-03-2025 Valproate [Mass/Vol] 56 ug/mL 50-100 [facility] Comment on above: Valproic Acid concen trations >100 ug/mL are potentially toxic. Valproic Acid (Depakene) Lev chandu 01-03-2025 VALPROIC ACID 56 ug/mL Normal 50-100 [facility] Comment on above: Order Comment: 304.2 Result Comment: Valp roic Acid concentrations >100 ug/mL are potentially toxic. Performed By: #### L 501.8100 #### [facility] [address] [place], [address] Anion gap in Serum or Plasma Ordered By: Avani Eduardo on 01-02-2025 Anion gap [Moles/Vol] 17 mmol/L High 5-15 [facility] Automated blood erythrocyte countOrdered By: Avani Eduardo on 01-02-2025 RBC (Bld) [#/Vol] 4.61 10*6/uL Normal 4.6-6.2 [facility] Comment on above: Order Comment: 304.2 Performed By: #### L 501.8100 #### [facility] [address] [place], [place], [id number] Automated blood hematocrit ( percentage)Ordered By: Avani Eduardo on 01-02-2025 Hematocrit (Bld) [Volume fraction] 42.7 % Normal 40-54 [facility] Comment on above: Order Comment: 304.2 Performed By: #### L 501.8100 #### [facility] [address] [place], [address] BUN/creatinine ratioOrdered By: Avani Eduardo on 01-02-2025 Urea nitrogen/Creatinine [Mass ratio] 15.2 mg/mg 10-20 [facility] Basic Metabolic Profile (BMP )on 01-02-2025 BUN/CRE 15.2 RATIO Normal - [facility] Comment on above: Order Comment: 304-2 Performed By: #### L 500.2500, L501.5200, L501.9520 #### [facility] [address] [place], [address] GAP 17 High 5-15 [facility] Comment on above: Order Comment: 304-2 Performed By: #### L 500.2500, L501.5200, L501.9520 #### [facility] [address] [place], [address] CBC-Complete Blood Cnt No Di ffon 01-02-2025 RDW SD 46.2 fl High 35.1-43.9 [facility] Comment on above: Order Comment: 304.2 Performed By: #### L 501.8100 #### [facility] [address] [place], [address] Carbon dioxide, total [Moles /volume] in Central venous bloodOrdered By: Avani Eduardo on 01-02-2025 CO2 [Moles/Vol] 23.4 mmol/L Normal 21.0-32.0 [facility] Comment on above: Order Comment: 304-2 Performed By: #### L 500.2500, L501.5200, L501.9520 #### [facility] [address] [place], [address] Chloride assayOrdered By: Adriel Eduardo on 01-02-2025 Chloride [Moles/Vol] 97 mmol/L Low 98-108 [facility] Comment on above: Order Comment: 304-2 Performed By: #### L 500.2500, L501.5200, L501.9520 #### [facility] [address] [place], [address] Erythrocyte distribution wid th ratioOrdered By: Avani Eduardo on 01-02-2025 Erythrocyte distribution width (RBC) [Ratio] 13.6 % Normal 11.6-14.6 [facility] Comment on above: Order Comment: 304.2 Performed By: #### L 501.8100 #### [facility] [address] [place], [address] Erythrocyte distribution wid th standard deviationOrdered By: Avani Eduardo on 01-02-2025 Erythrocyte distribution width (RBC) [Entitic vol] 46.2 fL High 35.1-43.9 [facility] Erythrocyte distribution width (RBC) [Ratio] 46.2 fl High 35.1-43.9 [facility] GFR/1.73 sq M.predicted maria elena g non-blacks MDRD (S/P/Bld) [Vol rate/Area]Ordered By: Aavni Eduardo on 01-02-2025 Estimated GFR (MDRD) Non-Af Amer 90 >60 [facility] Comment on above: mL/min/1.73m2 CKD-EP I Creatinine Equation (2020) Glomerular filtration rate ( GFR) estimation/1.73 sq m using serum, plasma, or whole bOrdered By: Avani Eduardo on 01-02-2025 GFR/1.73 sq M.predicted among non-blacks MDRD (S/P/Bld) [Vol rate/Area] 90 mL/min/{1.73_m2} Normal >60 [facility] Comment on above: mL/min/1.73m2 CKD-EP I Creatinine Equation (2020) Order Comment: 304-2 Result Comment: mL/m in/1.73m2 CKD-EPI Creatinine Equation (2020) Performed By: #### L 500.2500, L501.5200, L501.9520 #### [facility] [address] [place], [place], [id number] Hemoglobin measurementOrdere d By: Avani Eduardo on 01-02-2025 Hemoglobin (Bld) [Mass/Vol] 14.8 g/dL Normal 13.0-16.5 [facility] Comment on above: Order Comment: 304.2 Performed By: #### L 501.8100 #### [facility] [address] [place], [address] MCV (mean corpuscular volume ) determinationOrdered By: Avani Eduardo on 01-02-2025 MCV (RBC) [Entitic vol] 92.6 fL Normal 80-94 [facility] Comment on above: Order Comment: 304.2 Performed By: #### L 501.8100 #### [facility] [address] [place], [address] Magnesium measurement (mass/ volume)Ordered By: Avani Eduardo on 01-02-2025 Magnesium [Mass/Vol] 2.3 mg/dL High 1.5-2.2 [facility] Comment on above: Order Comment: 304-2 Performed By: #### L 500.2500, L501.5200, L501.9520 #### [facility] [address] [place], [address] Magnesium (Unsp spec) [Mass/Vol] 2.3 mg/dL High 1.5-2.2 [facility] Mean corpuscular hemoglobin (MCH) determinationOrdered By: Avani Eduardo on 01-02-2025 MCH (RBC) [Entitic mass] 32.1 pg High 27.0-32.0 [facility] Comment on above: Order Comment: 304.2 Performed By: #### L 501.8100 #### [facility] [address] [place], [address] Mean corpuscular hemoglobin concentration (MCHC) determinationOrdered By: Avani Eduardo on 01-02-2025 MCHC (RBC) [Mass/Vol] 34.7 g/dL Normal 32-36 [facility] Comment on above: Order Comment: 304.2 Performed By: #### L 501.8100 #### [facility] [address] [place], [address] Mean platelet volume determi nationOrdered By: Avani Eduardo on 01-02-2025 Platelet mean volume (Bld) [Entitic vol] 9.1 fL Normal 6.2-12.0 [facility] Comment on above: Order Comment: 304.2 Performed By: #### L 501.8100 #### [facility] [address] [place], [address] Platelet countOrdered By: Adriel Eduardo on 01-02-2025 Platelets (Bld) [#/Vol] 193 10*3/uL Normal 150-450 [facility] Comment on above: Order Comment: 304.2 Performed By: #### L 501.8100 #### [facility] [address] [place], [address] Potassium measurement (mass/ volume)Ordered By: Avani Eduardo on 01-02-2025 Potassium [Moles/Vol] 4.1 mmol/L Normal 3.3-5.1 [facility] Comment on above: Hemolysis present, R esults could be affected. Order Comment: 304-2 Result Comment: Hemo lysis present, Results??could be affected. ?? Performed By: #### L 500.2500, L501.5200, L501.9520 #### [facility] [address] [place], [address] Potassium (Unsp spec) [Mass/Vol] 4.1 mmol/L 3.3-5.1 [facility] Comment on above: Hemolysis present, R esults could be affected. Serum creatinine measurement (mass/volume)Ordered By: Avani Eduardo on 01-02-2025 Creatinine [Mass/Vol] 0.87 mg/dL Normal 0.70-1.20 [facility] Comment on above: Order Comment: 304-2 Performed By: #### L 500.2500, L501.5200, L501.9520 #### [facility] [address] [place], [address] Serum glucose measurement (m ass/volume)Ordered By: Avani Eduardo on 01-02-2025 Glucose [Mass/Vol] 223 mg/dL High 70-99 [facility] Comment on above: Order Comment: 304-2 Performed By: #### L 500.2500, L501.5200, L501.9520 #### [facility] [address], [address] Serum or plasma calcium minda urement (mass/volume)Ordered By: Avani Eduardo on 01-02-2025 Calcium [Mass/Vol] 9.7 mg/dL Normal 7.6-11.0 [facility] Comment on above: Order Comment: 304-2 Performed By: #### L 500.2500, L501.5200, L501.9520 #### [facility] [address] [place], [address] Serum or plasma urea nitroge n measurement (mass/volume)Ordered By: Avani Eduardo on 01-02-2025 Urea nitrogen [Mass/Vol] 13 mg/dL Normal 4-19 [facility] Comment on above: Order Comment: 304-2 Performed By: #### L 500.2500, L501.5200, L501.9520 #### [facility] [address] [place], [address] Sodium levelOrdered By: Emmanuel Eduardo on 01-02-2025 Sodium [Moles/Vol] 138 mmol/L Normal 133-145 [facility] Comment on above: Order Comment: 304-2 Performed By: #### L 500.2500, L501.5200, L501.9520 #### [facility] [address] [place], [address] White blood cell (WBC) count Ordered By: Avani Eduardo on 01-02-2025 WBC (Bld) [#/Vol] 9.9 10*3/uL Normal 4.4-11.0 [facility] Comment on above: Order Comment: 304.2 Performed By: #### L 501.8100 #### [facility] [address] [place], [address] Calculated very low density lipoprotein (VLDL) cholesterol measurementOrdered By: Avani Eduardo on 12-06-2024 Calculated very low density lipoprotein (VLDL) cholesterol measurement 49 mg/dL High 5-40 [facility] VLDL Cholesterol 49 mg/dL High 5-40 [facility] LDL calc ser/plasOrdered By: Avani Edaurdo on 12-06-2024 Cholesterol in LDL [Mass/Vol] 61 mg/dL [facility] Comment on above: Lfbmfyecad=075-866 m g/dL & Higher Dpel=825 mg/dL or greater LDL Cholesterol, Calculated 61 mg/dL [facility] Comment on above: Lczvfqmype=477-427 m g/dL & Higher Fdjf=562 mg/dL or greater Lipid Profileon 12-06-2024 CHOL:HDL 4.46 Normal [facility] Comment on above: Order Comment: 304.2 Performed By: #### L 501.8100 #### [facility] [address] [place], [address] Cholesterol [Mass/Vol] 141 mg/dL Normal <=200 [facility] Comment on above: Order Comment: 304.2 Result Comment: Chol esterol level, Desirable <200 mg/dL Borderline high cholesterol 200-239 mg/dL High cholesterol >=240 mg/dL Recommendations of the NCEP Adult Treatment Panel for the following risk-cutoff thresholds for the [place] population. Performed By: #### L 501.8100 #### [facility] [address] [place], [place], [id number] Cholesterol in HDL [Mass/Vol] 32 mg/dL Low [facility] Comment on above: Order Comment: 304.2 Result Comment: Luzmaria onal Cholesterol Education Program (NCEP) guidelines: <40 mg/dL: Low HDL-cholesterol (major risk factor for CHD) >= 60 mg/dL: High HDL-cholesterol (negative risk factor for CHD) HDL-cholesterol is affected by a number of factors, e.g. smoking, exercise, hormones, sex and age. Performed By: #### L 501.8100 #### [facility] [address] [place], [address] Cholesterol in LDL [Mass/Vol] 61 mg/dL Normal [facility] Comment on above: Order Comment: 304.2 Result Comment: Bord srqwqv=147-417 mg/dL Higher Joij=814 mg/dL or greater Performed By: #### L 501.8100 #### [facility] [address] [place], [address] Cholesterol in VLDL [Mass/Vol] 49 mg/dL High 5-40 [facility] Comment on above: Order Comment: 304.2 Performed By: #### L 501.8100 #### [facility] [address] [place], [address] Triglyceride [Mass/Vol] 244 mg/dL High [facility] Comment on above: Order Comment: 304.2 Result Comment: The drugs N-Acetylcysteine and Metamizole may falsely depress this assay. Normal range: <150 mg/dL Borderline High: 150-199 mg/dL High: 200-499 mg/dL Very High: >500 mg/dL Performed By: #### L 501.8100 #### [facility] [address] [place], [address] Screening total cholesterol/ high density lipoprotein (HDL) cholesterol ratioOrdered By: Avani Eduardo on 12-06-2024 Cholesterol.total/Chol esterol in HDL [Mass ratio] 4.46 {ratio} [facility] Serum or plasma cholesterol in HDL measurement (mass/volume)Ordered By: Avani Eduardo on 12-06-2024 Cholesterol in HDL [Mass/Vol] 32 mg/dL Low >40 [facility] Comment on above: National Cholesterol Education Program (NCEP) guidelines:<40 mg/dL: Low HDL-cholesterol (major risk factor for CHD)>= 60 mg/dL: High HDL-cholesterol (negative risk factor for CHD)HDL-cholesterol is affected by a number of factors, e.g. smoking, exercise, hormones, sex and age. Serum or plasma cholesterol measurement (mass/volume)Ordered By: Avani Eduardo on 12-06-2024 Cholesterol [Mass/Vol] 141 mg/dL <201 [facility] Comment on above: Cholesterol level, D esirable <200 mg/dLBorderline high cholesterol 200-239 mg/dLHigh cholesterol >=240 mg/dLRecommendations of the NCEP Adult Treatment Panel for the following risk-cutoff thresholds for the [place] population. Triglycerides measurementOrd ered By: Avani Eduardo on 12-06-2024 Triglyceride [Mass/Vol] 244 mg/dL High <199 [facility] Comment on above: The drugs N-Acetylcy steine and Metamizole may falsely depress this assay. Normal range: <150 mg/dLBorderline High: 150-199 mg/dLHigh: 200-499 mg/dLVery High: >500 mg/dL MR/BMSDontae 11-01-2024 [facility] [address] [place] [address] OFFICE VISIT Date of Service: 11/01/24 MR#: [id number] Acct: [id number] Name: ANJEL ROSS Rep #: [id number] 2 : 1950 Provider: PIO House Age/Sex: 74/M Location: [facility] Status: Signed Intake Vital Signs 01/15/23 11:23 [...] to the office today as referred from [facility]. The only records received from [facility] were a bilateral lower extremity arterial duplex performed at the [facility] (more content not included)... Normal [facility] Basic Metabolic Profile (BMP )on 10-05-2024 BUN/CRE 18.0 RATIO Normal 10- [facility] Comment on above: Order Comment: 304-2 Performed By: #### L 500.2500, L501.5200, L501.9520 #### [facility] [address] [place], [address] CA,Total 8.6 mg/dL Normal 8.5-10.1 [facility] Comment on above: Order Comment: 304-2 Performed By: #### L 500.2500, L501.5200, L501.9520 #### [facility] [address] [place], [address] Chloride [Moles/Vol] 102 mmol/L Normal 98-107 [facility] Comment on above: Order Comment: 304-2 Performed By: #### L 500.2500, L501.5200, L501.9520 #### [facility] [address] [place], [address] CO2 [Moles/Vol] 32.0 mmol/L Normal 21.0-32.0 [facility] Comment on above: Order Comment: 304-2 Performed By: #### L 500.2500, L501.5200, L501.9520 #### [facility] [address] [place], [address] Creatinine [Mass/Vol] 0.61 mg/dL Low 0.70-1.30 [facility] Comment on above: Order Comment: 304-2 Result Comment: The validity of the calculated GFR GFRAA in patients over 70 years has not been determined. Clinical correlation is essential. Performed By: #### L 500.2500, L501.5200, L501.9520 #### [facility] [address] [place], [address] EST GFR - AA 166 mL/min Normal >60 [facility] Comment on above: Order Comment: 304-2 Result Comment: Afri can [place] GFR Calc Performed By: #### L 500.2500, L501.5200, L501.9520 #### [facility] [address] [place], [address] GAP 6 Normal 5-15 [facility] Comment on above: Order Comment: 304-2 Performed By: #### L 500.2500, L501.5200, L501.9520 #### [facility] [address] [place], [address] GFR/1.73 sq M.predicted among non-blacks MDRD (S/P/Bld) [Vol rate/Area] 137 mL/min/{1.73_m2} Normal >60 [facility] Comment on above: Order Comment: 304-2 Result Comment: Non- GFR Calc Performed By: #### L 500.2500, L501.5200, L501.9520 #### [facility] [address] [place], [address] Glucose [Mass/Vol] 176 mg/dL High 74-106 [facility] Comment on above: Order Comment: 304-2 Result Comment: Fast ing Glucose result greater than or equal to 126 mg/dL suggests DIABETES MELLITUS per A.D.A. criteria. Performed By: #### L 500.2500, L501.5200, L501.9520 #### [facility] [address] [place], [address] Potassium [Moles/Vol] 3.4 mmol/L Low 3.5-5.1 [facility] Comment on above: Order Comment: 304-2 Performed By: #### L 500.2500, L501.5200, L501.9520 #### [facility] [address] [place], [address] Sodium [Moles/Vol] 140 mmol/L Normal 136-145 [facility] Comment on above: Order Comment: 304-2 Performed By: #### L 500.2500, L501.5200, L501.9520 #### [facility] [address] [place], [address] Urea nitrogen [Mass/Vol] 11 mg/dL Normal 7-18 [facility] Comment on above: Order Comment: 304-2 Performed By: #### L 500.2500, L501.5200, L501.9520 #### [facility] [address] [place], [place], [address] Blood urea nitrogen (BUN)/cr eatinine ratioOrdered By: Avani Eduardo on 10-05-2024 Urea nitrogen/Creatinine [Mass ratio] 18.0 mg/mg 10-20 [facility] Carbon dioxide measurementOr dered By: Avani Eduardo on 10-05-2024 CO2 [Moles/Vol] 32.0 mmol/L 21.0-32.0 [facility] Chloride measurementOrdered By: Avani Eduardo on 10-05-2024 Chloride [Moles/Vol] 102 mmol/L 98-107 [facility] Estimated glomerular filtrat ion rate (GFR) AmericanOrdered By: Avani Eduardo on 10-05-2024 Estimated GFR (MDRD) Amer 166 mL/min >60 [facility] Comment on above: GFR Calc Glomerular filtration rate ( GFR) estimationOrdered By: Avani Eduardo on 10-05-2024 Estimated GFR (MDRD) Non-Af Amer 137 mL/min >60 [facility] Comment on above: Non- GFR Calc Glucose measurementOrdered B y: Avani Eduardo on 10-05-2024 Glucose [Mass/Vol] 176 mg/dL High 74-106 [facility] Comment on above: Fasting Glucose resu lt greater than or equal to 126 mg/dL suggests DIABETES MELLITUS per A.D.A. criteria. Magnesiumon 10-05-2024 Magnesium [Mass/Vol] 2.3 mg/dL Normal 1.6-2.6 [facility] Comment on above: Order Comment: 304-2 Performed By: #### L 500.2500, L501.5200, L501.9520 #### [facility] [address] [place], [place], [address] Magnesium measurementOrdered By: Avani Eduardo on 10-05-2024 Magnesium [Mass/Vol] 2.3 mg/dL 1.6-2.6 [facility] Potassium measurementOrdered By: Avani Eduardo on 10-05-2024 Potassium [Moles/Vol] 3.4 mmol/L Low 3.5-5.1 [facility] Serum anion gap measurementO rdered By: Avani Eduardo on 10-05-2024 Anion gap [Moles/Vol] 6 mmol/L 5-15 [facility] Serum or plasma calcium minda urement (mass/volume)Ordered By: Avani Eduardo on 10-05-2024 Calcium [Mass/Vol] 8.6 mg/dL 8.5-10.1 [facility] Serum or plasma creatinine m easurement (mass/volume)Ordered By: Avani Eduardo on 10-05-2024 Creatinine [Mass/Vol] 0.61 mg/dL Low 0.70-1.30 [facility] Comment on above: The validity of the calculated GFR & GFRAA in patients over 70 years has not been determined. Clinical correlation is essential. Serum or plasma urea nitroge n measurement (mass/volume)Ordered By: Avani Eduardo on 10-05-2024 Urea nitrogen [Mass/Vol] 11 mg/dL 7-18 [facility] Sodium levelOrdered By: Emmanuel Eduardo on 10-05-2024 Sodium [Moles/Vol] 140 mmol/L 136-145 [facility] TSH QnOrdered By: Avani smith on 10-05-2024 Thyroid Stimulating Hormone (TSH) 1.740 uIU/mL 0.358-3.74 0 [facility] Thyroid Stim Hormone (TSH)on 10-05-2024 TSH 1.740 uIU/mL Normal 0.358-3.74 0 [facility] Comment on above: Order Comment: 304-2 Performed By: #### L 500.2500, L501.5200, L501.9520 #### [facility] [address] [place], [address] Absolute neutrophil countOrd ered By: Avani Eduardo on 09-29-2024 Neutrophils (Bld) [#/Vol] 3.1 10*3/uL 2.0-7.7 [facility] Automated blood erythrocyte countOrdered By: Avani Eduardo on 09-29-2024 RBC (Bld) [#/Vol] 4.23 10*6/uL Low 4.6-6.2 [facility] Comment on above: Performed By: #### L 100.0100, L501.6710 #### [facility] [address] [place], [address] Automated blood hematocrit ( percentage)Ordered By: Avani Eduardo on 09-29-2024 Hematocrit (Bld) [Volume fraction] 39.4 % Low 40-54 [facility] Comment on above: Performed By: #### L 100.0100, L501.6710 #### [facility] [address] [place], [place], [id number] Automated lymphocyte count a s percentage of total leukocytesOrdered By: Avani Eduardo on 09-29-2024 Lymphocytes/100 WBC (Bld) 38.9 % Normal 19-41 [facility] Comment on above: Performed By: #### L 100.0100, L501.6710 #### [facility] [address] [place], [address] Basophil percentageOrdered B y: Avani Eduardo on 09-29-2024 Basophils/100 WBC (Bld) 0.8 % Normal 0-1 [facility] Comment on above: Performed By: #### L 100.0100, L501.6710 #### [facility] [address] [place], [address] C-reactive protein measureme nt by high sensitivity methodOrdered By: Avani Eduardo on 09-29-2024 C-Reactive Protein Extended Range 3.29 mg/L High 0.0-3.0 [facility] Comment on above: C-Reactive Protein ( CRP) provides useful information for thediagnosis, therapy and monitoring of inflammatory processesand associated diseases. For the evaluation of Relative Riskfor Cardiovascular Disease, a High Sensitivity CRP (HSCRP)should be ordered. CBC W/Diff, Automatedon 09-04 Absolute Lymph 2.76 X10 3/uL Normal 0.83-4.51 [facility] Comment on above: Performed By: #### L 100.0100, L501.6710 #### [facility] [address] [place], [address] Absolute Neut 3.1 X10 3/uL Normal 2.0-7.7 [facility] Comment on above: Performed By: #### L 100.0100, L501.6710 #### [facility] [address] [place], [address] IG% 0.600 Normal 0.0-0.9 [facility] Comment on above: Result Comment: IG% - Immature Granulocytes (promyelocytes, myelocytes and metamyelocytes) > 1% indicates that a LEFT SHIFT is Present. Performed By: #### L 100.0100, L501.6710 #### [facility] [address] [place], [address] Nucleated RBC (Bld) [#/Vol] 0 10*3/uL Normal 0-5 [facility] Comment on above: Performed By: #### L 100.0100, [id number] #### [facility] [address] [place], [address] RDW SD 45.4 fl High 35.1-43.9 [facility] Comment on above: Performed By: #### L 100.0100, [id number] #### [facility] [address] [place], [address] CRPon 09-29-2024 C-REACTIVE PROT 3.29 mg/L High 0.0-3.0 [facility] Comment on above: Result Comment: C-Re active Protein (CRP) provides useful information for the diagnosis, therapy and monitoring of inflammatory processes and associated diseases. For the evaluation of Relative Risk for Cardiovascular Disease, a High Sensitivity CRP (HSCRP) should be ordered. Performed By: #### L 100.0100, L501.6710 #### [facility] [address] [place], [address] Eosinophil percentageOrdered By: Avani Eduardo on 09-29-2024 Eosinophils/100 WBC (Bld) 2.4 % Normal 0-5 [facility] Comment on above: Performed By: #### L 100.0100, [id number] #### [facility] [address] [place], [address] Erythrocyte distribution wid th ratioOrdered By: Avani Eduardo on 09-29-2024 Erythrocyte distribution width (RBC) [Ratio] 13.4 % Normal 11.6-14.6 [facility] Comment on above: Performed By: #### L 100.0100, [id number] #### [facility] [address] [place], [address] Erythrocyte distribution wid th standard deviationOrdered By: Avani Eduardo on 09-29-2024 Erythrocyte distribution width (RBC) [Entitic vol] 45.4 fL High 35.1-43.9 [facility] Hemoglobin measurementOrdere d By: Avani Eduardo on 09-29-2024 Hemoglobin (Bld) [Mass/Vol] 13.1 g/dL Normal 13.0-16.5 [facility] Comment on above: Performed By: #### L 100.0100, L501.6710 #### [facility] [address] [place], [address] Immature granulocytes/100 WB C Auto (Bld)Ordered By: Avani Eduardo on 09-29-2024 Immature granulocytes/100 WBC (Bld) 0.600 % 0.0-0.9 [facility] Comment on above: IG% - Immature Granu locytes (promyelocytes, myelocytes and metamyelocytes) > 1% indicates that a LEFT SHIFT is Present. Lymphocytes Auto (Unsp spec) [#/Vol]Ordered By: Avani Eduardo on 09-29-2024 Lymphocytes (Bld) [#/Vol] 2.76 10*3/uL 0.83-4.51 [facility] MCV (mean corpuscular volume ) determinationOrdered By: Avani Eduardo on 09-29-2024 MCV (RBC) [Entitic vol] 93.1 fL Normal 80-94 [facility] Comment on above: Performed By: #### L 100.0100, L501.6710 #### [facility] [address] [place], [address] Mean corpuscular hemoglobin (MCH) determinationOrdered By: Avani Eduardo on 09-29-2024 MCH (RBC) [Entitic mass] 31.0 pg Normal 27.0-32.0 [facility] Comment on above: Performed By: #### L 100.0100, [id number] #### [facility] [address] [place], [address] Mean corpuscular hemoglobin concentration (MCHC) determinationOrdered By: Avani Eduardo on 09-29-2024 MCHC (RBC) [Mass/Vol] 33.2 g/dL Normal 32-36 [facility] Comment on above: Performed By: #### L 100.0100, [id number] #### [facility] [address] [place], [address] Mean platelet volume determi nationOrdered By: Avani Eduardo on 09-29-2024 Platelet mean volume (Bld) [Entitic vol] 9.4 fL Normal 6.2-12.0 [facility] Comment on above: Performed By: #### L 100.0100, [id number] #### [facility] [address] [place], [address] Monocyte percentageOrdered B y: Avani Eduardo on 09-29-2024 Monocytes/100 WBC (Bld) 14.1 % High 0-10 [facility] Comment on above: Performed By: #### L 100.0100, [id number] #### [facility] [address] [place], [address] Neutrophil percentageOrdered By: Avani Eduardo on 09-29-2024 Neutrophils/100 WBC (Bld) 43.2 % Low 47-70 [facility] Comment on above: Performed By: #### L 100.0100, [id number] #### [facility] [address] [place], [address] Nucleated red blood cell per centageOrdered By: Avani Eduardo on 09-29-2024 Nucleated RBC/100 WBC (Bld) [Ratio] 0 % 0-5 [facility] Platelet countOrdered By: Adriel Eduardo on 09-29-2024 Platelets (Bld) [#/Vol] 203 10*3/uL Normal 150-450 [facility] Comment on above: Performed By: #### L 100.0100, L501.6710 #### [facility] [address] [place], [address] White blood cell (WBC) count Ordered By: Avani Eduardo on 09-29-2024 WBC (Bld) [#/Vol] 7.1 10*3/uL Normal 4.4-11.0 [facility] Comment on above: Performed By: #### L 100.0100, [id number] #### [facility] [address] [place], [address] Thyroid Stim Hormone (TSH)on 08-01-2024 TSH 6.050 uIU/mL High 0.358-3.74 0 [facility] Comment on above: Order Comment: 304.2 Performed By: #### L 501.9520 #### [facility] [address] [place], [address] Hemoglobin A1con 06-28-2024 HbA1c (Bld) [Mass fraction] 7.6 % High 3.8-5.6 [facility] Comment on above: Order Comment: 304-2 Result Comment: Norm al < 5.7 % Prediabetic 5.7 - 6.4 % Diabetic >or= 6.5 % Please note range changes. Performed By: #### L 500.2500, L501.5200, L501.9520 #### [facility] [address] [place], [place], [address] Valproic Acid (Depakene) Lev chandu 06-12-2024 VALPROIC ACID 38 ug/mL Low 50-100 [facility] Comment on above: Order Comment: 304.2 Performed By: #### L 501.8100 #### [facility] [address] [place], [place], [id number] Basophil percentageOrdered B y: Avani Eduardo on 01-10-2024 Bilirubin [Mass/Vol] 0.50 mg/dL 0.20-1.00 [facility] Comment on above: For patients on eltr ombopag therapy, use of Dimension Brule TBIL is not recommended. Chloride [Moles/Vol] 101 mmol/L 98-107 [facility] Glucose [Mass/Vol] 110 mg/dL 74-106 [facility] Comment on above: Fasting Glucose resu lt from 100 to 125 mg/dL suggests IMPAIRED HOMEOSTASIS per A.D.A. criteria. Hemoglobin (Bld) [Mass/Vol] 12.4 g/dL 13.0-16.5 [facility] Potassium [Moles/Vol] 3.1 mmol/L 3.5-5.1 [facility] Protein [Mass/Vol] 6.0 g/dL 6.4-8.2 [facility] Sodium [Moles/Vol] 139 mmol/L 136-145 [facility] WBC (Bld) [#/Vol] 5.9 10*3/uL 4.4-11.0 [facility] Determination of erythrocyte mean corpuscular volume (MCV)Ordered By: Avani Eduardo on 01-10-2024 MCV (RBC) [Entitic vol] 92.2 fL 80-94 [facility] Erythrocyte distribution wid th ratioOrdered By: Avani Eduardo on 01-10-2024 Erythrocyte distribution width (RBC) [Ratio] 13.1 % 11.6-14.6 [facility] Erythrocyte distribution wid th standard deviationOrdered By: Avani Eduardo on 01-10-2024 Erythrocyte distribution width (RBC) [Entitic vol] 44.1 fL 35.1-43.9 [facility] Hematocrit Auto (Bld) [Volum e fraction]Ordered By: Avani Eduardo on 01-10-2024 Hematocrit (Bld) [Volume fraction] 37.7 % 40-54 [facility] - Chemistry and C hemistry - challengeOrdered By: Avani Eduardo on 01-10-2024 Albumin/Globulin [Mass ratio] 0.8 {ratio} 0.9-2.4 [facility] ALP [Catalytic activity/Vol] 55 U/L 45-117 [facility] ALT [Catalytic activity/Vol] 20 U/L 16-61 [facility] CO2 [Moles/Vol] 32.0 mmol/L 21.0-32.0 [facility] Globulin (S) [Mass/Vol] 3.4 g/dL 2.2-4.2 [facility] Magnesium [Mass/Vol] 2.4 mg/dL 1.6-2.6 [facility] Urea nitrogen/Creatinine [Mass ratio] 20.2 mg/mg 10-20 [facility] - Hematology and Cell countsOrdered By: Avani Eduardo on 01-10-2024 MCH (RBC) [Entitic mass] 30.3 pg 27.0-32.0 [facility] MCHC (RBC) [Mass/Vol] 32.9 g/dL 32-36 [facility] Platelet mean volume (Bld) [Entitic vol] 8.9 fL 6.2-12.0 [facility] Platelets (Bld) [#/Vol] 175 10*3/uL 150-450 [facility] No Panel InformationOrdered By: Avani Eduardo on 01-10-2024 Estimated GFR (MDRD) Amer 156 mL/min >60 [facility] Comment on above: GFR Calc Estimated GFR (MDRD) Non-Af Amer 129 mL/min >60 [facility] Comment on above: Non- GFR Calc RBC Auto (Bld) [#/Vol]Ordere d By: Avani Eduardo on 01-10-2024 RBC (Bld) [#/Vol] 4.09 10*6/uL 4.6-6.2 [facility] Serum or plasma calcium minda urement (mass/volume)Ordered By: Avani Eduardo on 01-10-2024 Calcium [Mass/Vol] 8.6 mg/dL 8.5-10.1 [facility] Serum or plasma creatinine m easurement (mass/volume)Ordered By: Avani Eduardo on 01-10-2024 Creatinine [Mass/Vol] 0.64 mg/dL 0.70-1.30 [facility] Comment on above: The validity of the calculated GFR & GFRAA in patients over 70 years has not been determined. Clinical correlation is essential. Serum or plasma urea nitroge n measurement (mass/volume)Ordered By: Avani Eduardo on 01-10-2024 Urea nitrogen [Mass/Vol] 13 mg/dL 7-18 [facility] Thin prep Papanicolaou smear with manual screeningOrdered By: Avani Eduardo on 01-10-2024 Thin prep Papanicolaou smear with manual screening 2.6 g/dL 3.2-5.0 [facility] Thin prep Papanicolaou smear with manual screening 26 U/L 15-37 [facility] Thin prep Papanicolaou smear with manual screening 6 5-15 [facility] Basophil percentageOrdered B y: Avani Eduardo on 01-03-2024 Bilirubin [Mass/Vol] 0.50 mg/dL 0.20-1.00 [facility] Comment on above: For patients on eltr ombopag therapy, use of Dimension Brule TBIL is not recommended. Chloride [Moles/Vol] 103 mmol/L 98-107 [facility] Glucose [Mass/Vol] 131 mg/dL 74-106 [facility] Comment on above: Fasting Glucose resu lt greater than or equal to 126 mg/dL suggests DIABETES MELLITUS per A.D.A. criteria. Hemoglobin (Bld) [Mass/Vol] 12.1 g/dL 13.0-16.5 [facility] Potassium [Moles/Vol] 3.2 mmol/L 3.5-5.1 [facility] Protein [Mass/Vol] 5.8 g/dL 6.4-8.2 [facility] Sodium [Moles/Vol] 139 mmol/L 136-145 [facility] WBC (Bld) [#/Vol] 5.4 10*3/uL 4.4-11.0 [facility] Determination of erythrocyte mean corpuscular volume (MCV)Ordered By: Avanigómez Eduardo on 01-03-2024 MCV (RBC) [Entitic vol] 92.0 fL 80-94 [facility] Erythrocyte distribution wid th ratioOrdered By: [facility] on 01-03-2024 Erythrocyte distribution width (RBC) [Ratio] 13.2 % 11.6-14.6 [facility] Erythrocyte distribution wid th standard deviationOrdered By: [facility] Er Jayce on 01-03-2024 Erythrocyte distribution width (RBC) [Entitic vol] 45.0 fL 35.1-43.9 [facility] Hematocrit Auto (Bld) [Volum e fraction]Or[facility] 01-03-[facility] Hematocrit (Bld) [Volume fraction] 35.8 % 40-54 [facility] - Chemistry and C hemistry - challengeOrdered By: [facility] on 01-03-[facility]24 Albumin/Globulin [Mass ratio] 0.8 {ratio} 0.9-2.4 [facility] ALP [Catalytic activity/Vol] 52 U/L 45-117 [facility] ALT [Catalytic activity/Vol] 18 U/L 16-61 [facility] CO2 [Moles/Vol] 31.0 mmol/L 21.0-32.0 [facility] Globulin (S) [Mass/Vol] 3.3 g/dL 2.2-4.2 [facility] Magnesium [Mass/Vol] 2.2 mg/dL 1.6-2.6 [facility] Urea nitrogen/Creatinine [Mass ratio] 20.9 mg/mg 10-20 [facility] - Hematology and Cell countsOrdered By: Avani Eduardo on 01-03-2024 MCH (RBC) [Entitic mass] 31.1 pg 27.0-32.0 [facility] MCHC (RBC) [Mass/Vol] 33.8 g/dL 32-36 [facility] Platelet mean volume (Bld) [Entitic vol] 9.3 fL 6.2-12.0 [facility] Platelets (Bld) [#/Vol] 140 10*3/uL 150-450 [facility] No Panel InformationOrdered By: Avani Eduardo on 01-03-2024 Estimated GFR (MDRD) Amer 162 mL/min >60 [facility] Comment on above: GFR Calc Estimated GFR (MDRD) Non-Af Amer 134 mL/min >60 [facility] Comment on above: Non- GFR Calc RBC Auto (Bld) [#/Vol]Ordere d By: Avani Eduardo on 01-03-2024 RBC (Bld) [#/Vol] 3.89 10*6/uL 4.6-6.2 [facility] Serum or plasma calcium minda urement (mass/volume)Ordered By: Avani Eduardo on 01-03-2024 Calcium [Mass/Vol] 8.7 mg/dL 8.5-10.1 [facility] Serum or plasma creatinine m easurement (mass/volume)Ordered By: Avani Eduardo on 01-03-2024 Creatinine [Mass/Vol] 0.62 mg/dL 0.70-1.30 [facility] Comment on above: The validity of the calculated GFR & GFRAA in patients over 70 years has not been determined. Clinical correlation is essential. Serum or plasma urea nitroge n measurement (mass/volume)Ordered By: Avani Eduardo on 01-03-2024 Urea nitrogen [Mass/Vol] 13 mg/dL 7-18 [facility] Thin prep Papanicolaou smear with manual screeningOrdered By: Avani Eduardo on 01-03-2024 Thin prep Papanicolaou smear with manual screening 2.5 g/dL 3.2-5.0 [facility] Thin prep Papanicolaou smear with manual screening 22 U/L 15-37 [facility] Thin prep Papanicolaou smear with manual screening 5 5-15 [facility] Serum or plasma thyroid stim ulating hormone (TSH) measurement (units/volume)Ordered By: Avani Eduardo on 12-15-2023 TSH Qn 8.74 uIU/mL 0.358-3.74 [facility] Basophil percentageOrdered B y: Avani Eduardo on 11-04-2023 Bilirubin [Mass/Vol] 0.40 mg/dL 0.20-1.00 [facility] Comment on above: For patients on eltr ombopag therapy, use of Dimension Brule TBIL is not recommended. Protein [Mass/Vol] 6.9 g/dL 6.4-8.2 [facility] Direct bilirubinOrdered By: Avani Eduardo on 11-04-2023 Bilirubin.direct [Mass/Vol] 0.13 mg/dL 0.00-0.30 [facility] - Chemistry and C hemistry - challengeOrdered By: Avani Eduardo on 11-04-2023 ALP [Catalytic activity/Vol] 66 U/L 45-117 [facility] ALT [Catalytic activity/Vol] 28 U/L 16-61 [facility] Globulin (S) [Mass/Vol] 4.0 g/dL 2.2-4.2 [facility] Thin prep Papanicolaou smear with manual screeningOrdered By: Avani Eduardo on 11-04-2023 Thin prep Papanicolaou smear with manual screening 2.9 g/dL 3.2-5.0 [facility] Thin prep Papanicolaou smear with manual screening 22 U/L 15-37 [facility] Absolute lymphocyte countOrd ered By: Avani Eduardo on 10-20-2023 Lymphocytes Auto (Unsp spec) [#/Vol] 2.41 10*3/uL 0.83-4.51 [facility] Automated lymphocyte count a s percentage of total leukocytesOrdered By: Avani Eduardo on 10-20-2023 Lymphocytes/100 WBC Auto (Unsp spec) 34.2 % 19-41 [facility] Basophil percentageOrdered B y: Avani Eduardo on 10-20-2023 Basophils/100 WBC (Bld) 0.6 % 0-1 [facility] Chloride [Moles/Vol] 101 mmol/L 98-107 [facility] Eosinophils/100 WBC (Bld) 2.0 % 0-5 [facility] Glucose [Mass/Vol] 142 mg/dL 74-106 [facility] Comment on above: Fasting Glucose resu lt greater than or equal to 126 mg/dL suggests DIABETES MELLITUS per A.D.A. criteria. Hemoglobin (Bld) [Mass/Vol] 14.2 g/dL 13.0-16.5 [facility] Monocytes/100 WBC (Bld) 12.8 % 0-10 [facility] Neutrophils (Bld) [#/Vol] 3.5 10*3/uL 2.0-7.7 [facility] Neutrophils/100 WBC (Bld) 49.5 % 47-70 [facility] Potassium [Moles/Vol] 3.6 mmol/L 3.5-5.1 [facility] Sodium [Moles/Vol] 139 mmol/L 136-145 [facility] WBC (Bld) [#/Vol] 7.0 10*3/uL 4.4-11.0 [facility] Determination of erythrocyte mean corpuscular volume (MCV)Ordered By: Avani Eduardo on 10-20-2023 MCV (RBC) [Entitic vol] 91.9 fL 80-94 [facility] Erythrocyte distribution wid th ratioOrdered By: Avani Eduardo on 10-20-2023 Erythrocyte distribution width (RBC) [Ratio] 13.2 % 11.6-14.6 [facility] Erythrocyte distribution wid th standard deviationOrdered By: Avani Eduardo on 10-20-2023 Erythrocyte distribution width (RBC) [Entitic vol] 44.6 fL 35.1-43.9 [facility] Hematocrit Auto (Bld) [Volum e fraction]Ordered By: Avani Eduardo on 10-20-2023 Hematocrit (Bld) [Volume fraction] 43.0 % 40-54 [facility] Immature granulocytes/100 WB C Auto (Bld)Ordered By: Avani Eduardo on 10-20-2023 Immature granulocytes/100 WBC (Bld) 0.900 % 0.0-0.9 [facility] Comment on above: IG% - Immature Granu locytes (promyelocytes, myelocytes and metamyelocytes) > 1% indicates that a LEFT SHIFT is Present. Laboratory - Chemistry and C hemistry - challengeOrdered By: Avani Eduardo on 10-20-2023 CO2 [Moles/Vol] 33.0 mmol/L 21.0-32.0 [facility] Urea nitrogen/Creatinine [Mass ratio] 16.5 mg/mg 10-20 [facility] - Hematology and Cell countsOrdered By: Avani Eduardo on 10-20-2023 MCH (RBC) [Entitic mass] 30.3 pg 27.0-32.0 [facility] MCHC (RBC) [Mass/Vol] 33.0 g/dL 32-36 [facility] Nucleated RBC/100 WBC (Bld) [Ratio] 0 % 0-5 [facility] Platelets (Bld) [#/Vol] 197 10*3/uL 150-450 [facility] No Panel InformationOrdered By: Avani Eduardo on 10-20-2023 Estimated GFR (MDRD) Amer 114 mL/min >60 [facility] Comment on above: GFR Calc Estimated GFR (MDRD) Non-Af Amer 94 mL/min >60 [facility] Comment on above: Non- GFR Calc Platelet mean volume Riaz-Ec ker (Bld) [Entitic vol]Ordered By: Avani Eduardo on 10-20-2023 Platelet mean volume (Bld) [Entitic vol] 8.6 fL 6.2-12.0 [facility] RBC Auto (Bld) [#/Vol]Ordere d By: Avani Eduardo on 10-20-2023 RBC (Bld) [#/Vol] 4.68 10*6/uL 4.6-6.2 [facility] Serum or plasma calcium minda urement (mass/volume)Ordered By: Avani Eduardo on 10-20-2023 Calcium [Mass/Vol] 9.4 mg/dL 8.5-10.1 [facility] Serum or plasma creatinine m easurement (mass/volume)Ordered By: Avani Eduardo on 10-20-2023 Creatinine [Mass/Vol] 0.85 mg/dL 0.70-1.30 [facility] Comment on above: The validity of the calculated GFR & GFRAA in patients over 70 years has not been determined. Clinical correlation is essential. Serum or plasma urea nitroge n measurement (mass/volume)Ordered By: Avani Eduardo on 10-20-2023 Urea nitrogen [Mass/Vol] 14 mg/dL 7-18 [facility] Thin prep Papanicolaou smear with manual screeningOrdered By: Avani Eduardo on 10-20-2023 Thin prep Papanicolaou smear with manual screening 5 5-15 [facility] - Chemistry and C hemistry - challengeOrdered By: Avani Eduardo on 10-11-2023 T4 [Mass/Vol] 10.8 ug/dL 4.5-12.1 [facility] No Panel InformationOrdered By: Avani Eduardo on 10-11-2023 Thyroid Stimulating Hormone (TSH) 5.65 uIU/mL 0.358-3.74 [facility] Basophil percentageOrdered B y: Avani Eduardo on 10-05-2023 Chloride [Moles/Vol] 105 mmol/L 98-107 [facility] Glucose [Mass/Vol] 95 mg/dL 74-106 [facility] Potassium [Moles/Vol] 3.7 mmol/L 3.5-5.1 [facility] Comment on above: Slight Hemolysis, Re sult may be falsely increased. Sodium [Moles/Vol] 139 mmol/L 136-145 [facility] - Chemistry and C hemistry - challengeOrdered By: Avani Eduardo on 10-05-2023 CO2 [Moles/Vol] 30.0 mmol/L 21.0-32.0 [facility] Magnesium [Mass/Vol] 2.5 mg/dL 1.6-2.6 [facility] Comment on above: Slight Hemolysis, Re sult may be falsely increased. Urea nitrogen/Creatinine [Mass ratio] 16.3 mg/mg 10-20 [facility] No Panel InformationOrdered By: Avani Eduardo on 10-05-2023 Estimated GFR (MDRD) Amer 134 mL/min >60 [facility] Comment on above: GFR Calc Estimated GFR (MDRD) Non-Af Amer 111 mL/min >60 [facility] Comment on above: Non- GFR Calc Serum or plasma calcium minda urement (mass/volume)Ordered By: Avani Eduardo on 10-05-2023 Calcium [Mass/Vol] 8.0 mg/dL 8.5-10.1 [facility] Serum or plasma creatinine m easurement (mass/volume)Ordered By: Avani Eduardo on 10-05-2023 Creatinine [Mass/Vol] 0.74 mg/dL 0.70-1.30 [facility] Comment on above: The validity of the calculated GFR & GFRAA in patients over 70 years has not been determined. Clinical correlation is essential. Serum or plasma urea nitroge n measurement (mass/volume)Ordered By: Avani Eduardo on 10-05-2023 Urea nitrogen [Mass/Vol] 12 mg/dL 7-18 [facility] Thin prep Papanicolaou smear with manual screeningOrdered By: Avani Eduardo on 10-05-2023 Thin prep Papanicolaou smear with manual screening 4 5-15 [facility] Absolute lymphocyte countOrd ered By: Avani Eduardo on 09-22-2023 Lymphocytes Auto (Unsp spec) [#/Vol] 2.51 10*3/uL 0.83-4.51 [facility] Basophil percentageOrdered B y: Avani Eduardo on 09-22-2023 Basophils/100 WBC (Bld) 0.5 % 0-1 [facility] Chloride [Moles/Vol] 107 mmol/L 98-107 [facility] Eosinophils/100 WBC (Bld) 1.7 % 0-5 [facility] Glucose [Mass/Vol] 123 mg/dL 74-106 [facility] Comment on above: Fasting Glucose resu lt from 100 to 125 mg/dL suggests IMPAIRED HOMEOSTASIS per A.D.A. criteria. Neutrophils (Bld) [#/Vol] 2.3 10*3/uL 2.0-7.7 [facility] Neutrophils/100 WBC (Bld) 38.7 % 47-70 [facility] Potassium [Moles/Vol] 3.7 mmol/L 3.5-5.1 [facility] Sodium [Moles/Vol] 143 mmol/L 136-145 [facility] WBC (Bld) [#/Vol] 5.8 10*3/uL 4.4-11.0 [facility] Blood erythrocytes count (nu mber/volume)Ordered By: Avani Eduardo on 09-22-2023 RBC (Bld) [#/Vol] 4.08 10*6/uL 4.6-6.2 [facility] Blood hemoglobin measurement (mass/volume)Ordered By: Avani Eduardo on 09-22-2023 Hemoglobin (Bld) [Mass/Vol] 12.6 g/dL 13.0-16.5 [facility] Blood lymphocytes/100 leukoc ytesOrdered By: Avani Eduardo on 09-22-2023 Lymphocytes/100 WBC (Bld) 43.1 % 19-41 [facility] Blood monocytes/100 leukocyt esOrdered By: Avani Eduardo on 09-22-2023 Monocytes/100 WBC (Bld) 14.8 % 0-10 [facility] Blood platelet mean volumeOr dered By: Avani Eduardo on 09-22-2023 Platelet mean volume (Bld) [Entitic vol] 8.8 fL 6.2-12.0 [facility] Determination of erythrocyte mean corpuscular volume (MCV)Ordered By: Avani Eduardo on 09-22-2023 MCV (RBC) [Entitic vol] 93.6 fL 80-94 [facility] Hematocrit Auto (Bld) [Volum e fraction]Ordered By: Avani Eduardo on 09-22-2023 Hematocrit (Bld) [Volume fraction] 38.2 % 40-54 [facility] - Chemistry and C hemistry - challengeOrdered By: Avani Eduardo on 09-22-2023 CO2 [Moles/Vol] 34.0 mmol/L 21.0-32.0 [facility] Natriuretic peptide B (Bld) [Mass/Vol] 7.4 pg/mL 0-100 [facility] Urea nitrogen/Creatinine [Mass ratio] 24.9 mg/mg 10-20 [facility] - Hematology and Cell countsOrdered By: Avani Eduardo on 09-22-2023 Erythrocyte distribution width (RBC) [Entitic vol] 45.8 fL 35.1-43.9 [facility] Erythrocyte distribution width (RBC) [Ratio] 13.3 % 11.6-14.6 [facility] Immature granulocytes/100 WBC (Bld) 1.200 % 0.0-0.9 [facility] Comment on above: IG% - Immature Granu locytes (promyelocytes, myelocytes and metamyelocytes) > 1% indicates that a LEFT SHIFT is Present. MCH (RBC) [Entitic mass] 30.9 pg 27.0-32.0 [facility] Nucleated RBC/100 WBC (Bld) [Ratio] 0 % 0-5 [facility] MCHC Auto (RBC) [Mass/Vol]Or dered By: Avani Eduardo on 09-22-2023 MCHC (RBC) [Mass/Vol] 33.0 g/dL 32-36 [facility] No Panel InformationOrdered By: Avani Eduardo on 09-22-2023 Estimated GFR (MDRD) Amer 146 mL/min >60 [facility] Comment on above: GFR Calc Estimated GFR (MDRD) Non-Af Amer 121 mL/min >60 [facility] Comment on above: Non- GFR Calc Platelets bldOrdered By: Ethan Eduardo on 09-22-2023 Platelets (Bld) [#/Vol] 170 10*3/uL 150-450 [facility] Serum or plasma calcium minda urement (mass/volume)Ordered By: Avani Eduardo on 09-22-2023 Calcium [Mass/Vol] 8.8 mg/dL 8.5-10.1 [facility] Serum or plasma creatinine m easurement (mass/volume)Ordered By: Avani Eduardo on 09-22-2023 Creatinine [Mass/Vol] 0.68 mg/dL 0.70-1.30 [facility] Comment on above: The validity of the calculated GFR & GFRAA in patients over 70 years has not been determined. Clinical correlation is essential. Serum or plasma urea nitroge n measurement (mass/volume)Ordered By: Avani Eduardo on 09-22-2023 Urea nitrogen [Mass/Vol] 17 mg/dL 7-18 [facility] Thin prep Papanicolaou smear with manual screeningOrdered By: Avani Eduardo on 09-22-2023 Thin prep Papanicolaou smear with manual screening 2 5-15 [facility] Basophil percentageOrdered B y: Avani Eduardo on 09-13-2023 Chloride [Moles/Vol] 105 mmol/L 98-107 [facility] Glucose [Mass/Vol] 100 mg/dL 74-106 [facility] Comment on above: Fasting Glucose resu lt from 100 to 125 mg/dL suggests IMPAIRED HOMEOSTASIS per A.D.A. criteria. Potassium [Moles/Vol] 4.3 mmol/L 3.5-5.1 [facility] Sodium [Moles/Vol] 139 mmol/L 136-145 [facility] - Chemistry and C hemistry - challengeOrdered By: Avani Eduardo on 09-13-2023 CO2 [Moles/Vol] 28.0 mmol/L 21.0-32.0 [facility] Urea nitrogen/Creatinine [Mass ratio] 21.8 mg/mg 10- [facility] No Panel InformationOrdered By: Avani Eduardo on 09-13-2023 Estimated GFR (MDRD) Amer 157 mL/min >60 [facility] Comment on above: GFR Calc Estimated GFR (MDRD) Non-Af Amer 130 mL/min >60 [facility] Comment on above: Non- GFR Calc Serum or plasma calcium minda urement (mass/volume)Ordered By: Avani Eduardo on 09-13-2023 Calcium [Mass/Vol] 8.4 mg/dL 8.5-10.1 [facility] Serum or plasma creatinine m easurement (mass/volume)Ordered By: Avani Eduardo on 09-13-2023 Creatinine [Mass/Vol] 0.64 mg/dL 0.70-1.30 [facility] Comment on above: The validity of the calculated GFR & GFRAA in patients over 70 years has not been determined. Clinical correlation is essential. Serum or plasma urea nitroge n measurement (mass/volume)Ordered By: Avani Eduardo on 09-13-2023 Urea nitrogen [Mass/Vol] 14 mg/dL 7-18 [facility] Thin prep Papanicolaou smear with manual screeningOrdered By: Aavni Eduardo on 09-13-2023 Thin prep Papanicolaou smear with manual screening 6 5-15 [facility] No Panel InformationOrdered By: Avani Eduardo on 08-30-2023 Levetiracetam (Keppra) Level 25.0 ug/mL 10.0-40.0 [facility] Comment on above: Performed at: [address] [id number] Director: Jess Bess MD, Phone: [phone] Absolute lymphocyte countOrd ered By: Avani Eduardo on 08-23-2023 Lymphocytes Auto (Unsp spec) [#/Vol] 1.90 10*3/uL 0.83-4.51 [facility] Basophil percentageOrdered B y: Avani Eduardo on 08-23-2023 Basophils/100 WBC (Bld) 0.7 % 0-1 [facility] Chloride [Moles/Vol] 104 mmol/L 98-107 [facility] Eosinophils/100 WBC (Bld) 2.2 % 0-5 [facility] Glucose [Mass/Vol] 122 mg/dL 74-106 [facility] Comment on above: Fasting Glucose resu lt from 100 to 125 mg/dL suggests IMPAIRED HOMEOSTASIS per A.D.A. criteria. Neutrophils (Bld) [#/Vol] 2.5 10*3/uL 2.0-7.7 [facility] Neutrophils/100 WBC (Bld) 45.6 % 47-70 [facility] Potassium [Moles/Vol] 3.7 mmol/L 3.5-5.1 [facility] Sodium [Moles/Vol] 142 mmol/L 136-145 [facility] WBC (Bld) [#/Vol] 5.6 10*3/uL 4.4-11.0 [facility] Blood erythrocytes count (nu mber/volume)Ordered By: Avani Eduardo on 08-23-2023 RBC (Bld) [#/Vol] 4.12 10*6/uL 4.6-6.2 [facility] Blood hemoglobin measurement (mass/volume)Ordered By: Avani Eduardo on 08-23-2023 Hemoglobin (Bld) [Mass/Vol] 12.3 g/dL 13.0-16.5 [facility] Blood lymphocytes/100 leukoc ytesOrdered By: Avani Eduardo on 08-23-2023 Lymphocytes/100 WBC (Bld) 34.2 % 19-41 [facility] Blood monocytes/100 leukocyt esOrdered By: Avanigómez Eduardo on 08-23-2023 Monocytes/100 WBC (Bld) 16.0 % 0-10 [facility] Blood platelet mean volumeOr dered By: Avani Eduardo on 08-23-2023 Platelet mean volume (Bld) [Entitic vol] 9.3 fL 6.2-12.0 [facility] Determination of erythrocyte mean corpuscular volume (MCV)Ordered By: Avani Eduardo on 08-23-2023 MCV (RBC) [Entitic vol] 93.7 fL 80-94 [facility] Hematocrit Auto (Bld) [Volum e fraction]Ordered By: Avani Eduardo on 08-23-2023 Hematocrit (Bld) [Volume fraction] 38.6 % 40-54 [facility] - Chemistry and C hemistry - challengeOrdered By: Avani Eduardo on 08-23-2023 CO2 [Moles/Vol] 31.0 mmol/L 21.0-32.0 [facility] Magnesium [Mass/Vol] 2.6 mg/dL 1.6-2.6 [facility] Urea nitrogen/Creatinine [Mass ratio] 26.0 mg/mg -20 [facility] - Hematology and Cell countsOrdered By: Avani Eduardo on 08-23-2023 Erythrocyte distribution width (RBC) [Entitic vol] 46.4 fL 35.1-43.9 [facility] Erythrocyte distribution width (RBC) [Ratio] 13.4 % 11.6-14.6 [facility] Immature granulocytes/100 WBC (Bld) 1.300 % 0.0-0.9 [facility] Comment on above: IG% - Immature Granu locytes (promyelocytes, myelocytes and metamyelocytes) > 1% indicates that a LEFT SHIFT is Present. MCH (RBC) [Entitic mass] 29.9 pg 27.0-32.0 [facility] Nucleated RBC/100 WBC (Bld) [Ratio] 0 % 0-5 [facility] MCHC Auto (RBC) [Mass/Vol]Or dered By: Avani Eduardo on 08-23-2023 MCHC (RBC) [Mass/Vol] 31.9 g/dL 32-36 [facility] No Panel InformationOrdered By: Avani Eduardo on 08-23-2023 Estimated GFR (MDRD) Amer 144 mL/min >60 [facility] Comment on above: GFR Calc Estimated GFR (MDRD) Non-Af Amer 119 mL/min >60 [facility] Comment on above: Non- GFR Calc Levetiracetam (Keppra) Level 51.4 ug/mL 10.0-40.0 [facility] Comment on above: Performed at: [address] [id number] Director: Jess Bess MD, Phone: [phone] Valproic Acid (Depakene) Level 60 ug/mL 50-100 [facility] Platelets bldOrdered By: Ethan Eduardo on 08-23-2023 Platelets (Bld) [#/Vol] 174 10*3/uL 150-450 [facility] Serum or plasma calcium minda urement (mass/volume)Ordered By: Avani Eduardo on 08-23-2023 Calcium [Mass/Vol] 8.5 mg/dL 8.5-10.1 [facility] Serum or plasma creatinine m easurement (mass/volume)Ordered By: Avani Eduardo on 08-23-2023 Creatinine [Mass/Vol] 0.69 mg/dL 0.70-1.30 [facility] Comment on above: The validity of the calculated GFR & GFRAA in patients over 70 years has not been determined. Clinical correlation is essential. Serum or plasma urea nitroge n measurement (mass/volume)Ordered By: Avani Eduardo on 08-23-2023 Urea nitrogen [Mass/Vol] 18 mg/dL 7-18 [facility] Serum or plasma uric acid me asurement (mass/volume)Ordered By: Avani Eduardo on 08-23-2023 Urate [Mass/Vol] 5.6 mg/dL 3.5-7.2 [facility] Comment on above: The drugs N-Acetylcy steine and Metamizole may falsely depress this assay. Thin prep Papanicolaou smear with manual screeningOrdered By: Avani Eduardo on 08-23-2023 Thin prep Papanicolaou smear with manual screening 7 5-15 [facility] Basophil percentageOrdered B y: Avani Eduardo on 05-24-2023 Cholesterol [Mass/Vol] 143 mg/dL <200 [facility] Comment on above: <200 mg/dL Desirable 200-240 mg/dL Borderline >240 mg/dL High Risk Triglyceride [Mass/Vol] 102 mg/dL <199 [facility] Comment on above: The drugs N-Acetylcy steine and Metamizole may falsely depress this assay.Serum Triglycerides Reference Interval Normal <150 mg/dL Borderline high 150 - 199 mg/dL High 200 - 499 mg/dL Very High > or = 500 mg/dL Serum or plasma cholesterol in HDL measurement (mass/volume)Ordered By: Avani Eduardo on 05-24-2023 Cholesterol in HDL [Mass/Vol] 54 mg/dL >40 [facility] Comment on above: The drugs N-Acetylcy steine and Metamizole may falsely depress this assay. Reference Range HDL <40 mg/dL Low HDL Cholesterol HDL >or= 60 mg/dL High HDL Cholesterol Serum or plasma cholesterol in VLDL measurement (mass/volume)Ordered By: Avani Eduardo on 05-24-2023 Cholesterol in VLDL [Mass/Vol] 20 mg/dL 5-40 [facility] Serum or plasma low density lipoprotein (LDL) cholesterol measurement (mass/volume)Ordered By: Avani Eduardo on 05-24-2023 Cholesterol in LDL [Mass/Vol] 69 mg/dL 0-130 [facility] Basophil percentageOrdered B y: Avani Eduardo on 02-16-2023 Chloride [Moles/Vol] 106 mmol/L 98-107 [facility] Glucose [Mass/Vol] 61 mg/dL 74-106 [facility] Potassium [Moles/Vol] 4.1 mmol/L 3.5-5.1 [facility] Sodium [Moles/Vol] 142 mmol/L 136-145 [facility] WBC (Bld) [#/Vol] 5.5 10*3/uL 4.4-11.0 [facility] Blood erythrocytes count (nu mber/volume)Ordered By: Avani Eduardo on 02-16-2023 RBC (Bld) [#/Vol] 3.87 10*6/uL 4.6-6.2 [facility] Blood hemoglobin measurement (mass/volume)Ordered By: Avani Eduardo on 02-16-2023 Hemoglobin (Bld) [Mass/Vol] 12.7 g/dL 13.0-16.5 [facility] Blood platelet mean volumeOr dered By: Avani Eduardo on 02-16-2023 Platelet mean volume (Bld) [Entitic vol] 9.0 fL 6.2-12.0 [facility] Determination of erythrocyte mean corpuscular volume (MCV)Ordered By: Avani Eduardo on 02-16-2023 MCV (RBC) [Entitic vol] 104.4 fL 80-94 [facility] Hematocrit Auto (Bld) [Volum e fraction]Ordered By: Avani Eduardo on 02-16-2023 Hematocrit (Bld) [Volume fraction] 40.4 % 40-54 [facility] - Chemistry and C hemistry - challengeOrdered By: Avani Eduardo on 02-16-2023 CO2 [Moles/Vol] 27.0 mmol/L 21.0-32.0 [facility] Magnesium [Mass/Vol] 2.6 mg/dL 1.6-2.6 [facility] Urea nitrogen/Creatinine [Mass ratio] 26.0 mg/mg 10-20 [facility] - Hematology and Cell countsOrdered By: Avani Eduardo on 02-16-2023 Erythrocyte distribution width (RBC) [Entitic vol] 46.1 fL 35.1-43.9 [facility] Erythrocyte distribution width (RBC) [Ratio] 11.9 % 11.6-14.6 [facility] MCH (RBC) [Entitic mass] 32.8 pg 27.0-32.0 [facility] MCHC Auto (RBC) [Mass/Vol]Or dered By: Avani Eduardo on 02-16-2023 MCHC (RBC) [Mass/Vol] 31.4 g/dL 32-36 [facility] No Panel InformationOrdered By: Avani Eduardo on 02-16-2023 Estimated GFR (MDRD) Amer 178 mL/min >60 [facility] Comment on above: GFR Calc Estimated GFR (MDRD) Non-Af Amer 147 mL/min >60 [facility] Comment on above: Non- GFR Calc Platelets bldOrdered By: Ethan Eduardo on 02-16-2023 Platelets (Bld) [#/Vol] 141 10*3/uL 150-450 [facility] Serum or plasma calcium minda urement (mass/volume)Ordered By: Avani Eduardo on 02-16-2023 Calcium [Mass/Vol] 8.7 mg/dL 8.5-10.1 [facility] Serum or plasma creatinine m easurement (mass/volume)Ordered By: Avani Eduardo on 02-16-2023 Creatinine [Mass/Vol] 0.58 mg/dL 0.70-1.30 [facility] Comment on above: The validity of the calculated GFR & GFRAA in patients over 70 years has not been determined. Clinical correlation is essential. Serum or plasma urea nitroge n measurement (mass/volume)Ordered By: Avani Eduardo on 02-16-2023 Urea nitrogen [Mass/Vol] 15 mg/dL 7-18 [facility] Thin prep Papanicolaou smear with manual screeningOrdered By: Avani Eduardo on 02-16-2023 Thin prep Papanicolaou smear with manual screening 9 5-15 [facility] Basophil percentageOrdered B y: Avani Eduardo on 02-09-2023 Chloride [Moles/Vol] 106 mmol/L 98-107 [facility] Glucose [Mass/Vol] 95 mg/dL 74-106 [facility] Potassium [Moles/Vol] 3.9 mmol/L 3.5-5.1 [facility] Sodium [Moles/Vol] 143 mmol/L 136-145 [facility] WBC (Bld) [#/Vol] 7.2 10*3/uL 4.4-11.0 [facility] Blood erythrocytes count (nu mber/volume)Ordered By: Avani Eduardo on 02-09-2023 RBC (Bld) [#/Vol] 3.98 10*6/uL 4.6-6.2 [facility] Blood hemoglobin measurement (mass/volume)Ordered By: Avani Eduardo on 02-09-2023 Hemoglobin (Bld) [Mass/Vol] 13.1 g/dL 13.0-16.5 [facility] Blood platelet mean volumeOr dered By: Avani Eduardo on 02-09-2023 Platelet mean volume (Bld) [Entitic vol] 9.3 fL 6.2-12.0 [facility] Determination of erythrocyte mean corpuscular volume (MCV)Ordered By: Avani Eduardo on 02-09-2023 MCV (RBC) [Entitic vol] 103.0 fL 80-94 [facility] Hematocrit Auto (Bld) [Volum e fraction]Ordered By: Avani Eduardo on 02-09-2023 Hematocrit (Bld) [Volume fraction] 41.0 % 40-54 [facility] - Chemistry and C hemistry - challengeOrdered By: Avani Eduardo on 02-09-2023 CO2 [Moles/Vol] 31.0 mmol/L 21.0-32.0 [facility] Magnesium [Mass/Vol] 2.7 mg/dL 1.6-2.6 [facility] Urea nitrogen/Creatinine [Mass ratio] 21.5 mg/mg 10-20 [facility] - Hematology and Cell countsOrdered By: Avani Eduardo on 02-09-2023 Erythrocyte distribution width (RBC) [Entitic vol] 46.2 fL 35.1-43.9 [facility] Erythrocyte distribution width (RBC) [Ratio] 12.2 % 11.6-14.6 [facility] MCH (RBC) [Entitic mass] 32.9 pg 27.0-32.0 [facility] MCHC Auto (RBC) [Mass/Vol]Or dered By: Avani Eduardo on 02-09-2023 MCHC (RBC) [Mass/Vol] 32.0 g/dL 32-36 [facility] No Panel InformationOrdered By: Avani Eduardo on 02-09-2023 Estimated GFR (MDRD) Amer 155 mL/min >60 [facility] Comment on above: GFR Calc Estimated GFR (MDRD) Non-Af Amer 128 mL/min >60 [facility] Comment on above: Non- GFR Calc Platelets bldOrdered By: Ethan Eduardo on 02-09-2023 Platelets (Bld) [#/Vol] 185 10*3/uL 150-450 [facility] Serum or plasma calcium minda urement (mass/volume)Ordered By: Avani Eduardo on 02-09-2023 Calcium [Mass/Vol] 9.2 mg/dL 8.5-10.1 [facility] Serum or plasma creatinine m easurement (mass/volume)Ordered By: Avani Eduardo on 02-09-2023 Creatinine [Mass/Vol] 0.65 mg/dL 0.70-1.30 [facility] Comment on above: The validity of the calculated GFR & GFRAA in patients over 70 years has not been determined. Clinical correlation is essential. Serum or plasma urea nitroge n measurement (mass/volume)Ordered By: Avani Eduardo on 02-09-2023 Urea nitrogen [Mass/Vol] 14 mg/dL 7-18 [facility] Thin prep Papanicolaou smear with manual screeningOrdered By: Avani Eduardo on 02-09-2023 Thin prep Papanicolaou smear with manual screening 6 5-15 [facility] Basophil percentageOrdered B y: [facility] on 02-05-2023 Ammonia (P) [Moles/Vol] 31.0 umol/L 11-32 [facility] No Panel InformationOrdered By: [facility] on 02-05-2023 Levetiracetam (Keppra) Level 33.4 ug/mL 10.0-40.0 [facility] Comment on above: Performed at: [address] [id number] Director: Jess Bess MD, Phone: [phone] Valproic Acid (Depakene) Level 81 ug/mL 50-100 [facility] Absolute lymphocyte countOrd ered By: Dr. Wilder on 01-18-2023 Lymphocytes Auto (Unsp spec) [#/Vol] 2.09 10*3/uL 0.83-4.51 [facility] Basophil percentageOrdered B y: Dr. Wilder on 01-18-2023 Ammonia (P) [Moles/Vol] 73.0 umol/L 11-32 [facility] Basophils/100 WBC (Bld) 0.7 % 0-1 [facility] Bilirubin [Mass/Vol] 0.20 mg/dL 0.20-1.00 [facility] Comment on above: For patients on eltr ombopag therapy, use of Dimension Brule TBIL is not recommended. Chloride [Moles/Vol] 110 mmol/L 98-107 [facility] Eosinophils/100 WBC (Bld) 1.7 % 0-5 [facility] Glucose [Mass/Vol] 102 mg/dL 74-106 [facility] Comment on above: Fasting Glucose resu lt from 100 to 125 mg/dL suggests IMPAIRED HOMEOSTASIS per A.D.A. criteria. Neutrophils (Bld) [#/Vol] 2.4 10*3/uL 2.0-7.7 [facility] Neutrophils/100 WBC (Bld) 44.0 % 47-70 [facility] Potassium [Moles/Vol] 4.0 mmol/L 3.5-5.1 [facility] Protein [Mass/Vol] 4.5 g/dL 6.4-8.2 [facility] Sodium [Moles/Vol] 142 mmol/L 136-145 [facility] WBC (Bld) [#/Vol] 5.4 10*3/uL 4.4-11.0 [facility] Blood erythrocytes count (nu mber/volume)Ordered By: Dr. Wilder on 01-18-2023 RBC (Bld) [#/Vol] 2.97 10*6/uL 4.6-6.2 [facility] Blood hemoglobin measurement (mass/volume)Ordered By: Dr. Wilder on 01-18-2023 Hemoglobin (Bld) [Mass/Vol] 9.9 g/dL 13.0-16.5 [facility] Blood lymphocytes/100 leukoc ytesOrdered By: Dr. Wilder on 01-18-2023 Lymphocytes/100 WBC (Bld) 38.8 % 19-41 [facility] Blood monocytes/100 leukocyt esOrdered By: Dr. Wilder on 01-18-2023 Monocytes/100 WBC (Bld) 13.7 % 0-10 [facility] Blood platelet mean volumeOr dered By: Dr. Wilder on 01-18-2023 Platelet mean volume (Bld) [Entitic vol] 8.7 fL 6.2-12.0 [facility] Determination of erythrocyte mean corpuscular volume (MCV)Ordered By: Dr. Wilder on 01-18-2023 MCV (RBC) [Entitic vol] 104.7 fL 80-94 [facility] Hematocrit Auto (Bld) [Volum e fraction]Ordered By: Dr. Wilder on 01-18-2023 Hematocrit (Bld) [Volume fraction] 31.1 % 40-54 [facility] - Chemistry and C hemistry - challengeOrdered By: Dr. Wilder on 01-18-2023 ALP [Catalytic activity/Vol] 38 U/L 45-117 [facility] ALT [Catalytic activity/Vol] 10 U/L 16-61 [facility] CO2 [Moles/Vol] 29.0 mmol/L 21.0-32.0 [facility] Globulin (S) [Mass/Vol] 2.4 g/dL 2.2-4.2 [facility] Urea nitrogen/Creatinine [Mass ratio] 30.9 mg/mg 10-20 [facility] - Hematology and Cell countsOrdered By: Dr. Wilder on 01-18-2023 Erythrocyte distribution width (RBC) [Entitic vol] 52.2 fL 35.1-43.9 [facility] Erythrocyte distribution width (RBC) [Ratio] 13.4 % 11.6-14.6 [facility] Immature granulocytes/100 WBC (Bld) 1.100 % 0.0-0.9 [facility] Comment on above: IG% - Immature Granu locytes (promyelocytes, myelocytes and metamyelocytes) > 1% indicates that a LEFT SHIFT is Present. MCH (RBC) [Entitic mass] 33.3 pg 27.0-32.0 [facility] Nucleated RBC/100 WBC (Bld) [Ratio] 0 % 0-5 [facility] MCHC Auto (RBC) [Mass/Vol]Or dered By: Dr. Wilder on 01-18-2023 MCHC (RBC) [Mass/Vol] 31.8 g/dL 32-36 [facility] No Panel InformationOrdered By: Dr. Wilder on 01-18-2023 Estimated Creatinine Clearance Calc 52.95 ml/min [facility] Estimated GFR (MDRD) Amer 217 mL/min >60 [facility] Comment on above: GFR Calc Estimated GFR (MDRD) Non-Af Amer 179 mL/min >60 [facility] Comment on above: Non- GFR Calc Platelets bldOrdered By: Dr. Wilder on 01-18-2023 Platelets (Bld) [#/Vol] 137 10*3/uL 150-450 [facility] Serum or plasma albumin minda urement (mass/volume)Ordered By: Dr. Wilder on 01-18-2023 Albumin [Mass/Vol] 2.1 g/dL 3.2-5.0 [facility] Serum or plasma albumin/glob ulin mass ratioOrdered By: Dr. Wilder on 01-18-2023 Albumin/Globulin [Mass ratio] 0.9 {ratio} 0.9-2.4 [facility] Serum or plasma calcium minda urement (mass/volume)Ordered By: Dr. Wilder on 01-18-2023 Calcium [Mass/Vol] 8.5 mg/dL 8.5-10.1 [facility] Serum or plasma creatinine m easurement (mass/volume)Ordered By: Dr. Wilder on 01-18-2023 Creatinine [Mass/Vol] 0.48 mg/dL 0.70-1.30 [facility] Comment on above: The validity of the calculated GFR & GFRAA in patients over 70 years has not been determined. Clinical correlation is essential. Serum or plasma urea nitroge n measurement (mass/volume)Ordered By: Dr. Wilder on 01-18-2023 Urea nitrogen [Mass/Vol] 15 mg/dL 7-18 [facility] Thin prep Papanicolaou smear with manual screeningOrdered By: Dr. Wilder on 01-18-2023 Thin prep Papanicolaou smear with manual screening 14 U/L 15-37 [facility] Thin prep Papanicolaou smear with manual screening 3 5-15 [facility] Assessment of wrist artery p atency prior to arterial punctureOrdered By: Dr. Wilder on 01-16-2023 Arterial patency Wrist artery --pre arterial puncture Positive [facility] Base excessOrdered By: Dr. Brodie arce on 01-16-2023 Base excess Calc (BldV) [Moles/Vol] 7 mmol/L -2-2 [facility] Basophil percentageOrdered B y: Dr. Wilder on 01-16-2023 Basophil percentage 31.9 mmol/L 22-26 [facility] Basophils/100 WBC (Bld) 94 % 95-99 [facility] CO2 (BldA) [Partial pressure ]Ordered By: Dr. Wilder on 01-16-2023 CO2 (Bld) [Partial pressure] 49.8 mm[Hg] 35-45 [facility] - Chemistry and C hemistry - challengeOrdered By: Dr. Wilder on 01-16-2023 Natriuretic peptide B (Bld) [Mass/Vol] 15.2 pg/mL 0-100 [facility] No Panel InformationOrdered By: Dr. Wilder on 01-16-2023 Valproic Acid (Depakene) Level 91 ug/mL 50-100 [facility] Blood Gas Oxygen Percent 21 [facility] Blood Gas Sample Site R Radial [facility] Blood Gas Specimen Type ART [facility] Blood Gas Total CO2 33 mmol/L [facility] Oxygen Delivery Device Room Air [facility] Oxygen (BldA) [Partial press ure]Ordered By: Dr. Wilder on 01-16-2023 Oxygen (Bld) [Partial pressure] 70 mmHG 75-100 [facility] pH measurementOrdered By: Dr Shanthi Wilder on 01-16-2023 pH (Unsp spec) 7.42 [pH] 7.35-7.45 [facility] Absolute lymphocyte countOrd ered By: Dr. Malik on 01-10-2023 Lymphocytes Auto (Unsp spec) [#/Vol] 2.65 10*3/uL 0.83-4.51 [facility] Basophil percentageOrdered B y: Dr. Malik on 01-10-2023 Basophil percentage 0 SEEN /hpf 0-5 [facility] Basophils/100 WBC (Bld) 0.8 % 0-1 [facility] Chloride [Moles/Vol] 105 mmol/L 98-107 [facility] Eosinophils/100 WBC (Bld) 1.7 % 0-5 [facility] Glucose [Mass/Vol] 83 mg/dL 74-106 [facility] Neutrophils (Bld) [#/Vol] 5.6 10*3/uL 2.0-7.7 [facility] Neutrophils/100 WBC (Bld) 53.9 % 47-70 [facility] Potassium [Moles/Vol] 4.3 mmol/L 3.5-5.1 [facility] Sodium [Moles/Vol] 139 mmol/L 136-145 [facility] WBC (Bld) [#/Vol] 10.4 10*3/uL 4.4-11.0 [facility] Bilirubin Test strip Ql (U)O rdered By: Dr. Malik on 01-10-2023 Bilirubin Ql (U) Negative Negative [facility] Blood erythrocytes count (nu mber/volume)Ordered By: Dr. Malik on 01-10-2023 RBC (Bld) [#/Vol] 3.68 10*6/uL 4.6-6.2 [facility] Blood hemoglobin measurement (mass/volume)Ordered By: Dr. Malik on 01-10-2023 Hemoglobin (Bld) [Mass/Vol] 12.3 g/dL 13.0-16.5 [facility] Blood lymphocytes/100 leukoc ytesOrdered By: Dr. Malik on 01-10-2023 Lymphocytes/100 WBC (Bld) 25.6 % 19-41 [facility] Blood monocytes/100 leukocyt esOrdered By: Dr. Malik on 01-10-2023 Monocytes/100 WBC (Bld) 16.6 % 0-10 [facility] Blood platelet mean volumeOr dered By: Dr. Malik on 01-10-2023 Platelet mean volume (Bld) [Entitic vol] 8.4 fL 6.2-12.0 [facility] Determination of erythrocyte mean corpuscular volume (MCV)Ordered By: Dr. Malik on 01-10-2023 MCV (RBC) [Entitic vol] 102.2 fL 80-94 [facility] Hematocrit Auto (Bld) [Volum e fraction]Ordered By: Dr. Malik on 01-10-2023 Hematocrit (Bld) [Volume fraction] 37.6 % 40-54 [facility] Hyaline casts LM.LPF (Urine sed) [#/Area]Ordered By: Dr. Malik on 01-10-2023 Hyaline casts (Urine sed) [#/Area] 0 /[LPF] 0-5 [facility] Ketones Test strip Ql (U)Ord ered By: Dr. Malik on 01-10-2023 Ketones Ql (U) 5 mg/dl Negative [facility] - Chemistry and C hemistry - challengeOrdered By: Dr. Malik on 01-10-2023 CO2 [Moles/Vol] 29.0 mmol/L 21.0-32.0 [facility] Urea nitrogen/Creatinine [Mass ratio] 15.0 mg/mg 10-20 [facility] - Hematology and Cell countsOrdered By: Dr. Malik on 01-10-2023 Erythrocyte distribution width (RBC) [Entitic vol] 49.0 fL 35.1-43.9 [facility] Erythrocyte distribution width (RBC) [Ratio] 13.1 % 11.6-14.6 [facility] Immature granulocytes/100 WBC (Bld) 1.400 % 0.0-0.9 [facility] Comment on above: IG% - Immature Granu locytes (promyelocytes, myelocytes and metamyelocytes) > 1% indicates that a LEFT SHIFT is Present. MCH (RBC) [Entitic mass] 33.4 pg 27.0-32.0 [facility] Nucleated RBC/100 WBC (Bld) [Ratio] 0 % 0-5 [facility] MCHC Auto (RBC) [Mass/Vol]Or dered By: Dr. Malik on 01-10-2023 MCHC (RBC) [Mass/Vol] 32.7 g/dL 32-36 [facility] Macrocytes detectionOrdered By: Dr. Malik on 01-10-2023 Macrocytes Ql (Bld) 2+ [facility] Mucus LM Ql (Urine sed)Order ed By: Dr. Malik on 01-10-2023 Mucus Ql (Urine sed) 0 SEEN /hpf [facility] Nitrite Test strip Ql (U)Ord ered By: Dr. Malik on 01-10-2023 Nitrite Ql (U) Negative Negative [facility] No Panel InformationOrdered By: Dr. Malik on 01-10-2023 Valproic Acid (Depakene) Level 80 ug/mL 50-100 [facility] Estimated Creatinine Clearance Calc 66.19 ml/min [facility] Estimated GFR (MDRD) Amer 122 mL/min >60 [facility] Comment on above: GFR Calc Estimated GFR (MDRD) Non-Af Amer 101 mL/min >60 [facility] Comment on above: Non- GFR Calc Troponin I High Sensitivity 6 pg/mL 3.0-78.0 [facility] Comment on above: Please Note: New Janice t Units and Gender Specific Reference Ranges. For more information see Policy Stat Procedure Brule High Sensitivity Troponin (TNIH) and attachments. Platelets bldOrdered By: Dr. Malik on 01-10-2023 Platelets (Bld) [#/Vol] 168 10*3/uL 150-450 [facility] Protein Test strip Ql (U)Ord ered By: Dr. Malik on 01-10-2023 Protein Ql (U) 15 mg/dl Negative [facility] Serum or plasma calcium minda urement (mass/volume)Ordered By: Dr. Malik on 01-10-2023 Calcium [Mass/Vol] 9.0 mg/dL 8.5-10.1 [facility] Serum or plasma creatinine m easurement (mass/volume)Ordered By: Dr. Malik on 01-10-2023 Creatinine [Mass/Vol] 0.80 mg/dL 0.70-1.30 [facility] Comment on above: The validity of the calculated GFR & GFRAA in patients over 70 years has not been determined. Clinical correlation is essential. Serum or plasma urea nitroge n measurement (mass/volume)Ordered By: Dr. Malik on 01-10-2023 Urea nitrogen [Mass/Vol] 12 mg/dL 7-18 [facility] Squamous epithelial cells de tection in urine sediment by light microscopyOrdered By: Dr. Malik on 01-10-2023 Epithelial cells.squamous LM Ql (Urine sed) 0 SEEN /hpf 0-5 [facility] Thin prep Papanicolaou smear with manual screeningOrdered By: Dr. Malik on 01-10-2023 Thin prep Papanicolaou smear with manual screening 5 5-15 [facility] Urine blood detectionOrdered By: Dr. Malik on 01-10-2023 RBC Ql (U) 25 /ul Negative [facility] RBC Ql (U) 0 SEEN /hpf 0-5 [facility] Urine clarityOrdered By: Dr. Malik on 01-10-2023 Clarity (U) Clear Clear [facility] Urine color determinationOrd ered By: Dr. Malik on 01-10-2023 Color (U) Yellow Yellow [facility] Urine glucose detectionOrder ed By: Dr. Malik on 01-10-2023 Glucose Ql (U) Normal mg/dl Normal [facility] Urine leukocyte esterase det ection by dipstickOrdered By: Dr. Malik on 01-10-2023 Leukocyte esterase Test strip Ql (U) Negative Negative [facility] Urine pHOrdered By: Dr. Binta smith on 01-10-2023 pH (U) 6.0 [pH] 5.0 - 8.0 [facility] Urine sediment bacteria coun t by microscopy (number/high power field)Ordered By: Dr. Malik on 01-10-2023 Bacteria LM.HPF (Urine sed) [#/Area] 0 /[HPF] None Seen [facility] Urine specific gravity measu rementOrdered By: Dr. Malik on 01-10-2023 Specific gravity (U) [Rel density] 1.015 1.002-1.03 0 [facility] Urobilinogen Auto test strip Ql (U)Ordered By: Dr. Malik on 01-10-2023 Urobilinogen Ql (U) Normal mg/dl Normal [facility] Ammonia Plas-sCncon 01-10-20 23 Ammonia (P) [Moles/Vol] 35 umol/L Normal 16-60 [facility] Comment on above: Order Comment: Speci men Type: BLOOD SPECIMEN Ordering Facility: [facility] Address: [address] [place] [address] [place] [address] Performed By: #### 1 6362-6 #### [facility] CLIA [id number] [address] [place] [address] OF [facility] CASE MANAGEMon 01-09-2023 CASE MANAGEM HNO ID: [id number] Author: ALYSSA Humphreys Service: ? Author Type: Pastry Baker Type: Care Mgt Progress Note Filed: 01/09/2023 2:41 PM Note Text: CARE MANAGEMENT DISCHARGE NOTE SERVICE DATE: 01/09/2023 SERVICE TIME: 2:31 PM LOS: 1 day Patient discharging back to [facility] in [place]. Patient to be picked up at 9pm. [...] 09, 2023 TIME: 2:31 PM PAGER/CONTACT #: [phone] [facility] CNDSon 01-09-2023 CNDS HNO ID: [id number] Author: Lorene Ortiz MD Service: Hospital Medicine [...] HTN, and KYA He was admitted to [facility] 5 days prior due to weakness [...] (Oral) Resp 18 Ht 160 cm (5' 3) Wt 89.2 kg (196 lb 10.4 oz) [...] 30 tablet (more content not included)... [facility] NURSING PROGon 01-09-2023 NURSING PROG HNO ID: [id number] Author: Anitha Burnette RN Service: Nursing Author Type: Registered Nurse Type: Nursing Progress Note Filed: 01/09/2023 12:24 PM Note Text: Patient being discharged back to [facility]. Patient agreeable. Updated and informed facility of patient's return. [facility] Valproate SerPl-mCncon 01-09 Valproate [Mass/Vol] 80.8 ug/mL Normal 50.0-100.0 [facility] Comment on above: Order Comment: Speci men Type: BLOOD SPECIMEN Ordering Facility: [facility] Address: [address] [place], [place] [id number] Result Comment: Refe rence ranges and high/low indicator flags are provided as general guidelines only. The treating physician must determine appropriate target levels/dosing based on the specific clinical situation. Performed By: #### 4 086-5 #### [facility] CLIA [id number] [address] [place] [address] ALLIED HEALTHon 01-08-2023 ALLIED HEALTH HNO ID: [id number] Author: RT Vivian(R) Service: Radiology Author Type: [...] PERIPHERAL IV DATA: Not applicable SIGNED BY: Christin Cavanaugh, RT(R) January 08, 2023 1:16 PM [facility] CASE MGT INIT Kelsi 2022 CASE MGT INIT BUZZ HNO ID: [id number] Author: LAYNE Lozano Service: Social Work Author Type: Pastry Baker Type: Care Mgt Initial Assessment Filed: 01/08/2023 4:14 PM Note Text: CARE MANAGEMENT: ASSESSMENT AND DISCHARGE PLAN SERVICE DATE: January 08, 2023 SERVICE TIME: 3:39 PM PCP: Maddie Cantor DO Primary Contact: Extended Emergency Contact Information Primary Emergency Contact: Cha Cantor Mobile Relation: Sister Secondary Emergency Contact: Pj conti Mobile Relation: Relative Admission Status: Inpatient Insurance Provider: [facility] DUAL COMPLETE HMO POS SNP Discharge Planning requested by: Per Department Practice Potential Transition Plans Advance Directives Current Advance Directive: Health Care Power of Printing Grey Cloth Tender In Chart: Yes Up To Date and Valid: Yes Current Living Arrangements and Support Lives with: ([facility] Type of Residence: Assisted Living Facility Does the patient have to climb stairs at home?: No Support: Other: See Comment COLLETTE jay Ashley Snyder How do you manage to accomplish the following: Needs Assistance: Ambulation;Bathe/Shower;Dres s;Meals/Meal Prep;Going to the bathroom;Medication Management;Transportation to appointments/community Current Services/Equipment Current Post-Acute Service(s): Skilled Home Care Discharge Planning Patient Goal(s): Other: See Comment Patient's Other Post-Acute Care Goal(s): to return to Assisted living [place] [facility] Explained: [place] [facility] Given: Yes Level of Care Discussed: Home Care Are you interested in bedside delivery of your medications? No Discharge Planning Participant(s): Patient Patient/Family Comments: Caregiver Assessment: Caregiver is ready, willing and able to meet the patient's needs as recommended by the inter-professional team: Yes Name of Caregiver: in from Asssited Living Transport at Discharge: Transportation Arrangements: Ambulette Type of Service: S Non-emergency Is Patient Medicaid Pending?: No Was transportation financial coverage discussed with family?: No Hospice Social Worker Location: [facility] Management Responsibility: None Needs Prior to Discharge: Needs Prior to Discharge: Discharge Transportation;Home Care Order Post-Acute Discharge Plan: Met with pt who presents as lethargic. Is in from [facility] Assisted living in [place]. Plan is to return. MEDICAL DIRECTOR ambulated with walker. PT and OT recommend home PT. Pt with no preference for home health agency. With pt's consent, contacted [facility] for agency they use. Referral sent to [facility]. Will need transport back to [facility] w/c ambulette. Per MD, pt now with lumbar fx. Await return call from pt's [facility] - Drea jay [phone] to update. SIGNATURE: LAYNE Lozano PATIENT NAME: Anjel Ross DATE: January 08, 2023 TIME: 3:39 PM CONTACT #: [phone] [facility] CBC W Auto Differential pane l (Bld)on 01-08-2023 Basophils (Bld) [#/Vol] 0.05 10*3/uL Normal <0.11 [facility] Comment on above: Order Comment: Speci men Type: BLOOD SPECIMEN Ordering Facility: [facility] Address: [address] [place] [address] Performed By: #### 5 7021-8 #### [facility] CLIA [id number] [address] [place] [address] [place] Basophils/100 WBC (Bld) 0.6 % [facility] Comment on above: Order Comment: Speci men Type: BLOOD SPECIMEN Ordering Facility: [facility] Address: [address] [place] [address] Performed By: #### 5 7021-8 #### [facility] CLIA [id number] [address] [place] [address] [place] Differential cell count method Nom (Bld) Auto [facility] Comment on above: Order Comment: Speci men Type: BLOOD SPECIMEN Ordering Facility: [facility] Address: [address] [address] Performed By: #### 5 7021-8 #### [facility] CLIA [id number] [address] Eosinophils (Bld) [#/Vol] 0.18 10*3/uL Normal <0.46 [facility] Comment on above: Order Comment: Speci men Type: BLOOD SPECIMEN Ordering Facility: [facility] Address: [address] [place] [address] Performed By: #### 5 7021-8 #### [facility] CLIA [id number] [address] Eosinophils/100 WBC (Bld) 2.0 % Normal [facility] Comment on above: Order Comment: Speci men Type: BLOOD SPECIMEN Ordering Facility: [facility] Address: [address] [place] [address] Performed By: #### 5 7021-8 #### [facility] CLIA [id number] [address] Erythrocyte distribution width (RBC) [Ratio] 12.9 % Normal 11.5-15.0 [facility] Comment on above: Order Comment: Speci men Type: BLOOD SPECIMEN Ordering Facility: [facility] Address: [address] [place] [address] Performed By: #### 5 7021-8 #### [facility] CLIA [id number] [address] Hematocrit (Bld) [Volume fraction] 40.2 % Normal 39.0-51.0 [facility] Comment on above: Order Comment: Speci men Type: BLOOD SPECIMEN Ordering Facility: [facility] Address: [address] [place] [address] Performed By: #### 5 7021-8 #### [facility] CLIA [id number] [address] Hemoglobin (Bld) [Mass/Vol] 13.1 g/dL Normal 13.0-17.0 [facility] Comment on above: Order Comment: Speci men Type: BLOOD SPECIMEN Ordering Facility: [facility] Address: [address] [place] [address] Performed By: #### 5 7021-8 #### [facility] CLIA [id number] [address] [place] Immature granulocytes (Bld) [#/Vol] 0.10 10*3/uL High <0.10 [facility] Comment on above: Order Comment: Speci men Type: BLOOD SPECIMEN Ordering Facility: [facility] Address: [address] [address] Performed By: #### 5 7021-8 #### [facility] CLIA [id number] [address] [place] Immature granulocytes/100 WBC (Bld) 1.1 % Normal [facility] Comment on above: Order Comment: Speci men Type: BLOOD SPECIMEN Ordering Facility: [facility] Address: [address] [address] Performed By: #### 5 7021-8 #### [facility] CLIA [id number] [address] [place] Lymphocytes (Bld) [#/Vol] 2.81 10*3/uL Normal 1.00-4.00 [facility] Comment on above: Order Comment: Speci men Type: BLOOD SPECIMEN Ordering Facility: [facility] Address: [address] [address] Performed By: #### 5 7021-8 #### [facility] CLIA [id number] [address] [place] Lymphocytes/100 WBC (Bld) 31.6 % Normal [facility] Comment on above: Order Comment: Speci men Type: BLOOD SPECIMEN Ordering Facility: [facility] Address: [address] [address] Performed By: #### 5 7021-8 #### [facility] CLIA [id number] [address] MCH (RBC) [Entitic mass] 32.7 pg Normal 26.0-34.0 [facility] Comment on above: Order Comment: Speci men Type: BLOOD SPECIMEN Ordering Facility: [facility] Address: [address] [place] [address] Performed By: #### 5 7021-8 #### [facility] CLIA [id number] [address] OF [facility] MCHC (RBC) [Mass/Vol] 32.6 g/dL Normal 30.5-36.0 [facility] Comment on above: Order Comment: Speci men Type: BLOOD SPECIMEN Ordering Facility: [facility] Address: [address] [place] [address] Performed By: #### 5 7021-8 #### [facility] CLIA [id number] [address] MCV (RBC) [Entitic vol] 100.2 fL High 80.0-100.0 [facility] Comment on above: Order Comment: Speci men Type: BLOOD SPECIMEN Ordering Facility: [facility] Address: [address] [place] [address] Performed By: #### 5 7021-8 #### [facility] CLIA [id number] [address] Monocytes (Bld) [#/Vol] 1.06 10*3/uL High <0.87 [facility] Comment on above: Order Comment: Speci men Type: BLOOD SPECIMEN Ordering Facility: [facility] Address: [address] [place] [address] Performed By: #### 5 7021-8 #### [facility] CLIA [id number] [address] Monocytes/100 WBC (Bld) 11.9 % Normal [facility] Comment on above: Order Comment: Speci men Type: BLOOD SPECIMEN Ordering Facility: [facility] Address: [address] [place] [address] Performed By: #### 5 7021-8 #### [facility] CLIA [id number] [address] [place] Neutrophils (Bld) [#/Vol] 4.70 10*3/uL Normal 1.45-7.50 [facility] Comment on above: Order Comment: Speci men Type: BLOOD SPECIMEN Ordering Facility: [facility] Address: [address] [place] [address] Performed By: #### 5 7021-8 #### [facility] CLIA [id number] [address] [place] Neutrophils/100 WBC (Bld) 52.8 % Normal [facility] Comment on above: Order Comment: Speci men Type: BLOOD SPECIMEN Ordering Facility: [facility] Address: [address] [place] [address] Performed By: #### 5 7021-8 #### [facility] CLIA [id number] [address] Nucleated RBC (Bld) [#/Vol] 10*3/uL Normal <0.01 [facility] Comment on above: Order Comment: Speci men Type: BLOOD SPECIMEN Ordering Facility: [facility] Address: [address] [place] [address] Performed By: #### 5 7021-8 #### [facility] CLIA [id number] [address] Nucleated RBC/100 WBC (Bld) [Ratio] 0.0 /100 WBC Normal [facility] Comment on above: Order Comment: Speci men Type: BLOOD SPECIMEN Ordering Facility: [facility] Address: [address] [place] [address] Performed By: #### 5 7021-8 #### [facility] CLIA [id number] [address] Platelet mean volume (Bld) [Entitic vol] 8.5 fL Low 9.0-12.7 [facility] Comment on above: Order Comment: Speci men Type: BLOOD SPECIMEN Ordering Facility: [facility] Address: [address] [address] Performed By: #### 5 7021-8 #### [facility] CLIA [id number] [address] Platelets (Bld) [#/Vol] 160 10*3/uL Normal 150-400 [facility] Comment on above: Order Comment: Speci men Type: BLOOD SPECIMEN Ordering Facility: [facility] Address: [address] [place] [address] Performed By: #### 5 7021-8 #### [facility] CLIA [id number] [address] RBC (Bld) [#/Vol] 4.01 10*6/uL Low 4.20-6.00 [facility] Comment on above: Order Comment: Speci men Type: BLOOD SPECIMEN Ordering Facility: [facility] Address: [address] [place] [address] Performed By: #### 5 7021-8 #### [facility] CLIA [id number] [address] WBC (Bld) [#/Vol] 8.90 10*3/uL Normal 3.70-11.00 [facility] Comment on above: Order Comment: Speci men Type: BLOOD SPECIMEN Ordering Facility: [facility] Address: [address] [place] [address] Performed By: #### 5 7021-8 #### [facility] CLIA [id number] [address] CONSULTon 01-08-2023 CONSULT HNO ID: [id number] Author: Mann Waggoner APRN.ASPHALT WORKER Service: Neurosurgery Author Type: Nurse Practitioner Type: [...] W/COLLJ SPEC WHEN PFRMD 03/25/2016 Colonoscopy outpt [facility] COLSC FLX W/REMOVAL LESION BY HOT BX [...] ANGIOPLASTY, ASHD Cancer Father LUNG Heart Father [place] X 3 Heart Maternal Aunt ME Diabetes Maternal Aunt other (EPILEPSY) Paternal Grandfather [...] 40 mg (more content not included)... [facility] CONSULT HNO ID: [id number] Author: Chino Gerber DO Service: Neurology General [...] PHYSICIAN: Dr. Dewey PRIMARY CARE PHYSICIAN: Maddie Cantor, DO Subjective Mr. Ross is a 72 year old male with a past medical history significant for anemia, CAD, hypothyroidism, HLD, colon cancer, seizures, hypertension, KYA, who was initially admitted to [facility] 5 days ago with generalized weakness, unsteady gait and fall without focal deficits. During that hospital stay CT brain was concerning for possible NPH. Subsequently, telemetry neurologist recommended patient to be transferred for neurology consult and LP and MRI brain/spine with and without contrast. Patient admitted to [facility] on 01/08 with differential diagnosis of [...] W/COLLJ SPEC WHEN PFRMD 03/25/2016 Colonoscopy outpt [facility] COLSC FLX W/REMOVAL LESION BY HOT BX [...] ANGIOPLASTY, ASHD Cancer Father LUNG Heart Father [place] X 3 Heart Maternal Aunt [place] Diabetes Maternal Aunt other (EPILEPSY) Paternal Grandfather [...] mg tablet (more content not included)... [facility] CT LUMBAR SPINE WO IVCONon 0 01-08-2023 CT LUMBAR SPINE WO IVCON * * *Final Report* * * DATE OF EXAM: Jan 08 2023 4:50PM [facility] 0508 - CT LUMBAR SPINE WO [...] are 5 lumbar-type vertebrae. Anatomic variant: None. Crayon Grader (topogram) images: Right hip arthroplasty. Alignment: S-shaped [...] and assume there are 5 lumbar-type vertebrae. Sales And Service Representative: ROBERTS CHAPELB Transcribe Date/Time: Jan 09 2023 9:56A Dictated by : NGUYỄN GILBERT DO This examination was interpreted and the report reviewed and electronically signed by: NGUYỄN GILBERT DO on Jan 09 2023 10:03AM EST [id number] Normal [facility] Comprehensive metabolic 2000 panelon 01-08-2023 Albumin [Mass/Vol] 3.2 g/dL Low 3.9-4.9 [facility] Comment on above: Order Comment: Devendra krishnamurthy Type: BLOOD SPECIMEN Ordering Facility: [facility] Address: [address] [place] [id number] Performed By: #### 2 4323-8, 88341-9, 3016-3 #### [facility] CLIA [id number] [address] [place] [address] [place] ALP [Catalytic activity/Vol] 58 U/L Normal 38-113 [facility] Comment on above: Order Comment: Devendra men Type: BLOOD SPECIMEN Ordering Facility: [facility] Address: [address] [address] Performed By: #### 2 4323-8, 02639-6, 3015-3 #### [facility] CLIA [id number] [address] ALT With P-5'-P [Catalytic activity/Vol] 7 U/L Low 10-54 [facility] Comment on above: Order Comment: Speci men Type: BLOOD SPECIMEN Ordering Facility: [facility] Address: [address] [place] [address] Performed By: #### 2 4323-8, , 3015-3 #### [facility] CLIA [id number] [address] Anion gap [Moles/Vol] 10 mmol/L Normal 9-18 [facility] Comment on above: Order Comment: Speci men Type: BLOOD SPECIMEN Ordering Facility: [facility] Address: [address] [place] [address] Performed By: #### 2 4323-8, , 3 #### [facility] CLIA [id number] [address] AST With P-5'-P [Catalytic activity/Vol] 15 U/L Normal 14-40 [facility] Comment on above: Order Comment: Speci men Type: BLOOD SPECIMEN Ordering Facility: [facility] Address: [address] [id number] Performed By: #### 2 4323-8, , 3015-3 #### [facility] CLIA [id number] [address] Bilirubin [Mass/Vol] 0.3 mg/dL Normal 0.2-1.3 [facility] Comment on above: Order Comment: Speci men Type: BLOOD SPECIMEN Ordering Facility: [facility] Address: [address] [place] [address] Performed By: #### 2 4323-8, , 3015-3 #### [facility] CLIA [id number] [address] [place] [address] [place] Calcium [Mass/Vol] 9.4 mg/dL Normal 8.5-10.2 [facility] Comment on above: Order Comment: Speci men Type: BLOOD SPECIMEN Ordering Facility: [facility] Address: [address] [place] [address] Performed By: #### 2 3-8, , 3 #### [facility] CLIA [id number] [address] [place] [address] [place] Chloride [Moles/Vol] 104 mmol/L Normal 97-105 [facility] Comment on above: Order Comment: Speci men Type: BLOOD SPECIMEN Ordering Facility: [facility] Address: [address] [place] [address] Performed By: #### 2 8, , 3 #### [facility] CLIA [id number] [address] [place] CO2 [Moles/Vol] 28 mmol/L Normal 22-30 [facility] Comment on above: Order Comment: Speci men Type: BLOOD SPECIMEN Ordering Facility: [facility] Address: [address] [place] [address] Performed By: #### 2 8, , 3 #### [facility] CLIA [id number] [address] [place] [address] [place] Creatinine [Mass/Vol] 0.65 mg/dL Low 0.73-1.22 [facility] Comment on above: Order Comment: Speci men Type: BLOOD SPECIMEN Ordering Facility: [facility] Address: [address] [place] [address] Performed By: #### 2 4322-8, , 3 #### [facility] CLIA [id number] [address] [place] ESTIMATED GLOMERULAR FILTRATION RATE 99 mL/min/1.73m??? Normal >=60 [facility] Comment on above: Order Comment: Devendra krishnamurthy Type: BLOOD SPECIMEN Ordering Facility: [facility] Address: [address] [id number] Result Comment: Narda mated Glomerular Filtration Rate [...] actual GFR. Performed By: #### 2 4323-8, 43124-8, 6-3 #### [facility] CLIA [id number] [address] [place] [address] [place] Glucose [Mass/Vol] 90 mg/dL Normal 74-99 [facility] Comment on above: Order Comment: Devendra krishnamurthy Type: BLOOD SPECIMEN Ordering Facility: [facility] Address: [address] [place] [phone] Result Comment: The [place] [employer] (ADA) provides guidance for cutoff [...] Standards of Medical Care in Diabetes 2016, [employer] [place] [employer]. Diabetes Care. 2016.39(Suppl 1). Performed By: #### 2 4323-8, 83150-9, 6-3 #### [facility] CLIA [id number] [address] [place] [address] [place] Potassium [Moles/Vol] 3.8 mmol/L Normal 3.7-5.1 [facility] Comment on above: Order Comment: Devendra krishnamurthy Type: BLOOD SPECIMEN Ordering Facility: [facility] Address: [address] [place] [address] Performed By: #### 2 4323-8, 70493-9, 6-3 #### [facility] CLIA [id number] [address] STATES [facility] Protein [Mass/Vol] 5.6 g/dL Low 6.3-8.0 [facility] Comment on above: Order Comment: Speci men Type: BLOOD SPECIMEN Ordering Facility: [facility] Address: [address] [place] [address] Performed By: #### 2 4323-8, , 3015-3 #### [facility] CLIA [id number] [address] STATES OF [facility] Sodium [Moles/Vol] 142 mmol/L Normal 136-144 [facility] Comment on above: Order Comment: Speci men Type: BLOOD SPECIMEN Ordering Facility: [facility] Address: [address] [place] [address] Performed By: #### 2 4323-8, , 3015-3 #### [facility] CLIA [id number] [address] [place] Urea nitrogen [Mass/Vol] 11 mg/dL Normal 9-24 [facility] Comment on above: Order Comment: Speci men Type: BLOOD SPECIMEN Ordering Facility: [facility] Address: [address] [place] [address] Performed By: #### 2 4323-8, , 3015-3 #### [facility] CLIA [id number] [address] [place] ECG COMPLETEon 01-08-2023 ECG COMPLETE Ventricular Rate : 8 7 BPM Atrial Rate : 87 BPM P-R Interval : 144 ms QRS Duration : 84 ms Q-T Interval : 352 ms QTC Calculation(Bazett) : 423 ms Calculated P [place] : 58 degrees Calculated R [place] : -45 degrees Calculated T [place] : 17 degrees NORMAL SINUS RHYTHM LEFT [...] INFERIOR LEADS Confirmed by MD JOAQUIN VINAY ([id number]) on 01/08/2023 3:41:29 PM NAME : ANJEL ROSS PID : [id number] : 1950 Gender : Male Race : ORD : [id number] Procedure Date : Jan 08 2023 03:21:39 [...] INFERIOR LEADS Confirmed by MD JOAQUIN VINAY ([id number]) on 01/08/2023 3:41:29 PM Test Reason : Arrhythmia Location : 91 : [id number] [id number] Overread By : MD JOAQUIN VINAY Edited By : MD JOAQUIN VINAY Referred By : HILARIO MALIK Acquired by : LAKSHMI MOREAU [facility] HISTORY PHYSICALon HISTORY PHYSICAL HNO ID: [id number] Author: Keron Dewey MD Service: General Internal Medicine Author Type: Physician Type: HANDP Filed: 01/08/2023 6:34 AM Note Text: DEPARTMENT OF HOSPITAL MEDICINE HISTORY AND PHYSICAL EXAM SERVICE DATE: 01/08/2023 SERVICE TIME: 1:26 AM Primary Care Physician: Maddie Cantor, NIGHT AND WEEKEND COVERAGE: From 7am - 7pm, please call Sound After 7pm, please call cross cover pager #[phone] Subjective CHIEF COMPLAINT: Unsteady gait HPI: This is a 72 year old male [facility] resident with hx of anemia, CAD, hypothyroidism, HL, colon cancer, seizures, HTN, and KYA, who was admitted to [facility] 5 days ago with generalized weakness [...] W/COLLJ SPEC WHEN PFRMD 03/25/2016 Colonoscopy outpt [facility] COLSC FLX W/REMOVAL LESION BY HOT BX [...] ANGIOPLASTY, ASHD Cancer Father LUNG Heart Father ME X 3 Heart Maternal Aunt ME Diabetes Maternal Aunt other (EPILEPSY) Paternal Grandfather [...] 1 tablet by mouth daily at bedtime. Tqtbu-6-SCU-EPA-Fish Oil 1,000 mg (120 mg-180 mg) cap [...] No Y (more content not included)... Normal [facility] Magnesium SerPl-mCncon 01-08 Magnesium [Mass/Vol] 1.7 mg/dL Normal 1.7-2.3 [facility] Comment on above: Order Comment: Speci men Type: BLOOD SPECIMEN Ordering Facility: [facility] Address: [place] [address] Performed By: #### 2 4323-8, 85345-4, 3016-3 #### [facility] CLIA [id number] [address] [id number] [place] NURSING PROGon 01-08-2023 NURSING PROG HNO ID: [id number] Author: Doug Suárez RN Service: Nursing Author Type: Registered Nurse Type: Nursing Progress Note Filed: 01/08/2023 5:29 PM Note Text: 01/08/2023 Nursing note: Notified Neurology AND attending of multiple attempts of obtaining blood (ammonia level) Multiple RN attempted This note was completed by: Doug Suárez RN Normal [facility] THERAPY NTon 01-08-2023 THERAPY NT HNO ID: [id number] Author: Almaz Falcon PT Service: Physical Therapy Author Type: Physical Therapist Type: Therapy (PT/OT/Speech/Resp) Filed: 01/08/2023 4:10 PM Note Text: Physical Therapy Evaluation SERVICE DATE: 01/08/2023 SERVICE TIME: 1445 to 1502 ROOM: [place] [address] Recommended Discharge Disposition: Home PT Recommended Discharge [...] Risk Current Hospital Course: Originally admitted at [facility] with general weakness and unsteady gait [...] Walker Goal: Pt will complete x5 repeated kzh-me-fkbfa transfers with SBA Rehab Potential: Good Patient [...] activity as (more content not included)... Normal [facility] THERAPY NT HNO ID: [id number] Author: Miquel Ellis, OTR/L Service: Occupational Therapy Author Type: Occupational Therapist Type: Therapy (PT/OT/Speech/Resp) Filed: 01/08/2023 11:27 AM Note Text: Occupational Therapy Evaluation SERVICE DATE: 01/08/2023 SERVICE TIME: 0840 to 0908 ROOM: [place] [address] Recommended Discharge Disposition: Home OT Recommended Discharge [...] with: Patient (more content not included)... Normal [facility] TSH SerPl-aCncon 01-08-2023 TSH Qn 9.720 m[IU]/L High 0.270-4.20 0 [facility] Comment on above: Order Comment: Speci men Type: BLOOD SPECIMEN Ordering Facility: [facility] Address: [address] [place] [address] Performed By: #### 2 4323-8, 95435-0, 3016-3 #### [facility] CLIA [id number] [address] Valproate SerPl-mCncon 01-08 Valproate [Mass/Vol] 72.9 ug/mL Normal 50.0-100.0 [facility] Comment on above: Order Comment: Specesteban krishnamurthy Type: BLOOD SPECIMEN Ordering Facility: [facility] Address: [address] [place] [address] Result Comment: Refe rence ranges and high/low indicator flags are provided as general guidelines only. The treating physician must determine appropriate target levels/dosing based on the specific clinical situation. Performed By: #### 4 086-5 #### [facility] CLIA [id number] [address] OF [facility] XR LUMBAR 3V AP/LAT/L5-S1on 01-08-2023 XR LUMBAR [...] Multilevel degenerative disc disease and facet arthropathy. Sales And Service Representative: [facility] Transcribe Date/Time: Jan 08 2023 2:00P Dictated by : REJI ARNETT MD This examination was interpreted and the report reviewed and electronically signed by: REJI ARNETT MD on Jan 08 2023 2:05PM EST [id number] Normal [facility] XR THORACIC 2V AP/LATon XR THORACIC 2V AP/LAT * * *Final [...] report of the accompanying lumbar spine films. Sales And Service Representative: [facility] Transcribe Date/Time: Jan 08 2023 2:05P Dictated by : REJI ARNETT MD This examination was interpreted and the report reviewed and electronically signed by: REJI ARNETT MD on Jan 08 2023 2:07PM EST [id number] Normal [facility] Absolute lymphocyte countOrd ered By: Dr. Cannon on 01-07-2023 Lymphocytes Auto (Unsp spec) [#/Vol] 2.20 10*3/uL 0.83-4.51 [facility] Basophil percentageOrdered B y: Dr. Cannon on 01-07-2023 Basophils/100 WBC (Bld) 0.6 % 0-1 [facility] Chloride [Moles/Vol] 110 mmol/L 98-107 [facility] Eosinophils/100 WBC (Bld) 2.6 % 0-5 [facility] Glucose [Mass/Vol] 115 mg/dL 74-106 [facility] Comment on above: Fasting Glucose resu lt from 100 to 125 mg/dL suggests IMPAIRED HOMEOSTASIS per A.D.A. criteria. Neutrophils (Bld) [#/Vol] 3.0 10*3/uL 2.0-7.7 [facility] Neutrophils/100 WBC (Bld) 46.7 % 47-70 [facility] Potassium [Moles/Vol] 3.9 mmol/L 3.5-5.1 [facility] Sodium [Moles/Vol] 140 mmol/L 136-145 [facility] WBC (Bld) [#/Vol] 6.5 10*3/uL 4.4-11.0 [facility] Blood erythrocytes count (nu mber/volume)Ordered By: Dr. Cannon on 01-07-2023 RBC (Bld) [#/Vol] 3.61 10*6/uL 4.6-6.2 [facility] Blood hemoglobin measurement (mass/volume)Ordered By: Dr. Cannon on 01-07-2023 Hemoglobin (Bld) [Mass/Vol] 12.1 g/dL 13.0-16.5 [facility] Blood lymphocytes/100 leukoc ytesOrdered By: Dr. Cannon on 01-07-2023 Lymphocytes/100 WBC (Bld) 33.8 % 19-41 [facility] Blood monocytes/100 leukocyt esOrdered By: Dr. Cannon on 01-07-2023 Monocytes/100 WBC (Bld) 15.2 % 0-10 [facility] Blood platelet mean volumeOr dered By: Dr. Cannon on 01-07-2023 Platelet mean volume (Bld) [Entitic vol] 8.9 fL 6.2-12.0 [facility] Culture, urineOrdered By: Dr Shanthi Malik on 01-07-2023 Bacteria identified Cx Nom (U) Culture exhibits no growth. [facility] Determination of erythrocyte mean corpuscular volume (MCV)Ordered By: Dr. Cannon on 01-07-2023 MCV (RBC) [Entitic vol] 102.5 fL 80-94 [facility] Hematocrit Auto (Bld) [Volum e fraction]Ordered By: Dr. Cannon on 01-07-2023 Hematocrit (Bld) [Volume fraction] 37.0 % 40-54 [facility] - Chemistry and C hemistry - challengeOrdered By: Dr. Cannon on 01-07-2023 CO2 [Moles/Vol] 24.0 mmol/L 21.0-32.0 [facility] Urea nitrogen/Creatinine [Mass ratio] 27.1 mg/mg 10-20 [facility] - Hematology and Cell countsOrdered By: Dr. Cannon on 01-07-2023 Erythrocyte distribution width (RBC) [Entitic vol] 47.9 fL 35.1-43.9 [facility] Erythrocyte distribution width (RBC) [Ratio] 12.8 % 11.6-14.6 [facility] Immature granulocytes/100 WBC (Bld) 1.100 % 0.0-0.9 [facility] Comment on above: IG% - Immature Granu locytes (promyelocytes, myelocytes and metamyelocytes) > 1% indicates that a LEFT SHIFT is Present. MCH (RBC) [Entitic mass] 33.5 pg 27.0-32.0 [facility] Nucleated RBC/100 WBC (Bld) [Ratio] 0 % 0-5 [facility] MCHC Auto (RBC) [Mass/Vol]Or dered By: Dr. Cannon on 01-07-2023 MCHC (RBC) [Mass/Vol] 32.7 g/dL 32-36 [facility] No Panel InformationOrdered By: Dr. Cannon on 01-07-2023 Estimated Creatinine Clearance Calc 52.95 ml/min [facility] Estimated GFR (MDRD) Amer 242 mL/min >60 [facility] Comment on above: GFR Calc Estimated GFR (MDRD) Non-Af Amer 200 mL/min >60 [facility] Comment on above: Non- GFR Calc Platelets bldOrdered By: Dr. Cannon on 01-07-2023 Platelets (Bld) [#/Vol] 132 10*3/uL 150-450 [facility] Serum or plasma calcium minda urement (mass/volume)Ordered By: Dr. Cannon on 01-07-2023 Calcium [Mass/Vol] 8.8 mg/dL 8.5-10.1 [facility] Serum or plasma creatinine m easurement (mass/volume)Ordered By: Dr. Cannon on 01-07-2023 Creatinine [Mass/Vol] 0.44 mg/dL 0.70-1.30 [facility] Comment on above: The validity of the calculated GFR & GFRAA in patients over 70 years has not been determined. Clinical correlation is essential. Serum or plasma urea nitroge n measurement (mass/volume)Ordered By: Dr. Cannon on 01-07-2023 Urea nitrogen [Mass/Vol] 12 mg/dL 7-18 [facility] Thin prep Papanicolaou smear with manual screeningOrdered By: Dr. Cannon on 01-07-2023 Thin prep Papanicolaou smear with manual screening 6 5-15 [facility] Basophil percentageOrdered B y: Dr. Cannon on 01-06-2023 Basophil percentage 2.2 mg/dL 2.5-4.9 [facility] - Chemistry and C hemistry - challengeOrdered By: Dr. Cannon on 01-06-2023 Magnesium [Mass/Vol] 2.0 mg/dL 1.6-2.6 [facility] Basophil percentageOrdered B y: Dr. Hooper on 01-05-2023 Bilirubin [Mass/Vol] 0.30 mg/dL 0.20-1.00 [facility] Comment on above: For patients on eltr ombopag therapy, use of Dimension [place] TBIL is not recommended. Protein [Mass/Vol] 5.5 g/dL 6.4-8.2 [facility] - Chemistry and C hemistry - challengeOrdered By: Dr. Hooper on 01-05-2023 ALP [Catalytic activity/Vol] 48 U/L 45-117 [facility] ALT [Catalytic activity/Vol] 8 U/L 16-61 [facility] Globulin (S) [Mass/Vol] 3.0 g/dL 2.2-4.2 [facility] No Panel InformationOrdered By: Dr. Hooper on 01-05-2023 Valproic Acid (Depakene) Level 57 ug/mL 50-100 [facility] Serum or plasma albumin minda urement (mass/volume)Ordered By: Dr. Hooper on 01-05-2023 Albumin [Mass/Vol] 2.5 g/dL 3.2-5.0 [facility] Serum or plasma albumin/glob ulin mass ratioOrdered By: Dr. Hooper on 01-05-2023 Albumin/Globulin [Mass ratio] 0.8 {ratio} 0.9-2.4 [facility] Thin prep Papanicolaou smear with manual screeningOrdered By: Dr. Hooper on 01-05-2023 Thin prep Papanicolaou smear with manual screening 15 U/L 15-37 [facility] Basophil percentageOrdered B y: Dr. Malik on 01-04-2023 Basophil percentage 0 SEEN /hpf 0-5 [facility] Bilirubin Test strip Ql (U)O rdered By: Dr. Malik on 01-04-2023 Bilirubin Ql (U) Negative Negative [facility] INR in Blood by Coagulation assayOrdered By: Dr. Malik on 01-04-2023 INR Coag (Bld) [Relative time] 1.0 {INR} [facility] Ketones Test strip Ql (U)Ord ered By: Dr. Malik on 01-04-2023 Ketones Ql (U) 5 mg/dl Negative [facility] - Chemistry and C hemistry - challengeOrdered By: Dr. Malik on 01-04-2023 Cobalamin (Vitamin B12) [Mass/Vol] 504 pg/mL 211-911 [facility] CK [Catalytic activity/Vol] 50 U/L 39-308 [facility] - CoagulationOrde red By: Dr. Malik on 01-04-2023 aPTT Coag (Bld) [Time] 24.4 s 24.1-36.2 [facility] PT Coag (PPP) [Time] 12.9 s 11.7-14.9 [facility] Mucus LM Ql (Urine sed)Order ed By: Dr. Malik on 01-04-2023 Mucus Ql (Urine sed) 0 SEEN /hpf [facility] Nitrite Test strip Ql (U)Ord ered By: Dr. Malik on 01-04-2023 Nitrite Ql (U) Negative Negative [facility] No Panel InformationOrdered By: Dr. Malik on 01-04-2023 Thyroid Stimulating Hormone (TSH) 3.10 uIU/mL 0.358-3.74 [facility] Troponin I High Sensitivity 6 pg/mL 3.0-78.0 [facility] Comment on above: Please Note: New Janice t Units and Gender Specific Reference Ranges. For more information see Policy Stat Procedure Brule High Sensitivity Troponin (TNIH) and attachments. Protein Test strip Ql (U)Ord ered By: Dr. Malik on 01-04-2023 Protein Ql (U) Negative Negative [facility] Serum or plasma folate measu rement (mass/volume)Ordered By: Dr. Malik on 01-04-2023 Folate [Mass/Vol] 9.80 ng/mL 3.1-55.4 [facility] Squamous epithelial cells de tection in urine sediment by light microscopyOrdered By: Dr. Malik on 01-04-2023 Epithelial cells.squamous LM Ql (Urine sed) 0 SEEN /hpf 0-5 [facility] Urine blood detectionOrdered By: Dr. Malik on 01-04-2023 RBC Ql (U) Negative Negative [facility] RBC Ql (U) 0 SEEN /hpf 0-5 [facility] Urine clarityOrdered By: Dr. Malik on 01-04-2023 Clarity (U) Clear Clear [facility] Urine color determinationOrd ered By: Dr. Malik on 01-04-2023 Color (U) Yellow Yellow [facility] Urine glucose detectionOrder ed By: Dr. Malik on 01-04-2023 Glucose Ql (U) Normal mg/dl Normal [facility] Urine leukocyte esterase det ection by dipstickOrdered By: Dr. Malik on 01-04-2023 Leukocyte esterase Test strip Ql (U) Negative Negative [facility] Urine pHOrdered By: Dr. Binta smith on 01-04-2023 pH (U) 8.0 [pH] 5.0 - 8.0 [facility] Urine sediment bacteria coun t by microscopy (number/high power field)Ordered By: Dr. Malik on 01-04-2023 Bacteria LM.HPF (Urine sed) [#/Area] 0 /[HPF] None Seen [facility] Urine specific gravity measu rementOrdered By: Dr. Malik on 01-04-2023 Specific gravity (U) [Rel density] 1.010 1.002-1.03 0 [facility] Urobilinogen Auto test strip Ql (U)Ordered By: Dr. Malik on 01-04-2023 Urobilinogen Ql (U) Normal mg/dl Normal [facility] Absolute lymphocyte countOrd ered By: Dr. Skaggs on 08-11-2022 Lymphocytes Auto (Unsp spec) [#/Vol] 1.27 10*3/uL 0.83-4.51 [facility] Basophil percentageOrdered B y: Dr. Skaggs on 08-11-2022 Basophils/100 WBC (Bld) 0.3 % 0-1 [facility] Chloride [Moles/Vol] 106 mmol/L 98-107 [facility] Eosinophils/100 WBC (Bld) 0.2 % 0-5 [facility] Glucose [Mass/Vol] 131 mg/dL 74-106 [facility] Comment on above: Fasting Glucose resu lt greater than or equal to 126 mg/dL suggests DIABETES MELLITUS per A.D.A. criteria. Neutrophils (Bld) [#/Vol] 11.5 10*3/uL 2.0-7.7 [facility] Neutrophils/100 WBC (Bld) 80.3 % 47-70 [facility] Potassium [Moles/Vol] 3.6 mmol/L 3.5-5.1 [facility] Sodium [Moles/Vol] 141 mmol/L 136-145 [facility] WBC (Bld) [#/Vol] 14.3 10*3/uL 4.4-11.0 [facility] Blood erythrocytes count (nu mber/volume)Ordered By: Dr. Skaggs on 08-11-2022 RBC (Bld) [#/Vol] 4.87 10*6/uL 4.6-6.2 [facility] Blood hemoglobin measurement (mass/volume)Ordered By: Dr. Skaggs on 08-11-2022 Hemoglobin (Bld) [Mass/Vol] 15.6 g/dL 13.0-16.5 [facility] Blood lymphocytes/100 leukoc ytesOrdered By: Dr. Skaggs on 08-11-2022 Lymphocytes/100 WBC (Bld) 8.9 % 19-41 [facility] Blood monocytes/100 leukocyt esOrdered By: Dr. Skaggs on 08-11-2022 Monocytes/100 WBC (Bld) 9.8 % 0-10 [facility] Blood platelet mean volumeOr dered By: Dr. Skaggs on 08-11-2022 Platelet mean volume (Bld) [Entitic vol] 8.8 fL 6.2-12.0 [facility] COVID-19 virus antigen assay Ordered By: Dr. Skaggs on 08-11-2022 SARS-CoV-2 (COVID-19) Ag IA.rapid Ql (Resp) [facility] Determination of erythrocyte mean corpuscular volume (MCV)Ordered By: Dr. Skaggs on 08-11-2022 MCV (RBC) [Entitic vol] 94.5 fL 80-94 [facility] Hematocrit Auto (Bld) [Volum e fraction]Ordered By: Dr. Skaggs on 08-11-2022 Hematocrit (Bld) [Volume fraction] 46.0 % 40-54 [facility] - Chemistry and C hemistry - challengeOrdered By: Dr. Skaggs on 08-11-2022 CO2 [Moles/Vol] 24.0 mmol/L 21.0-32.0 [facility] Urea nitrogen/Creatinine [Mass ratio] 11.9 mg/mg 10-20 [facility] - Drug toxicology Ordered By: Dr. Skaggs on 08-11-2022 Amphetamines Ql (U) Negative <1000 ng/mL [facility] Benzodiazepines Ql (U) Negative < 200 ng/mL [facility] Cannabinoids Screen Ql (U) Negative < 50 ng/mL [facility] Cocaine Ql (U) Negative < 300 ng/mL [facility] Opiates Ql (U) Negative < 300 ng/mL [facility] - Hematology and Cell countsOrdered By: Dr. Skaggs on 08-11-2022 Erythrocyte distribution width (RBC) [Entitic vol] 43.3 fL 35.1-43.9 [facility] Erythrocyte distribution width (RBC) [Ratio] 12.5 % 11.6-14.6 [facility] Immature granulocytes/100 WBC (Bld) 0.500 % 0.0-0.9 [facility] Comment on above: IG% - Immature Granu locytes (promyelocytes, myelocytes and metamyelocytes) > 1% indicates that a LEFT SHIFT is Present. MCH (RBC) [Entitic mass] 32.0 pg 27.0-32.0 [facility] Nucleated RBC/100 WBC (Bld) [Ratio] 0 % 0-5 [facility] MCHC Auto (RBC) [Mass/Vol]Or dered By: Dr. Skaggs on 08-11-2022 MCHC (RBC) [Mass/Vol] 33.9 g/dL 32-36 [facility] No Panel InformationOrdered By: Dr. Skaggs on 08-11-2022 MDMA (Ecstasy) Screen Negative < 500 ng/mL [facility] Urine Barbiturates Screen Negative < 200 ng/mL [facility] Urine Drug Screen Comment [facility] Comment on above: CONFIRMATORY TESTING FOR [...] Urine Methadone Screen Negative < 300 ng/mL [facility] Estimated Creatinine Clearance Calc 53.21 ml/min [facility] Estimated GFR (MDRD) Amer 93 mL/min >60 [facility] Comment on above: GFR Calc Estimated GFR (MDRD) Non-Af Amer 77 mL/min >60 [facility] Comment on above: Non- GFR Calc Ethyl Alcohol Level < 3.0 mg/dL [facility] Comment on above: The serum:whole bloo d ethanol ratio is approximately 1.14and varies slightly with hematocrit. Medical Alcohol reference interval and critical value innon-tolerant individuals; 50 - 100 Impairment 100 Intoxication 100 - 250 Severe Poisoning 250 - 400 Deep/possible fatal coma Platelets bldOrdered By: Dr. Skaggs on 08-11-2022 Platelets (Bld) [#/Vol] 205 10*3/uL 150-450 [facility] Serum or plasma calcium minda urement (mass/volume)Ordered By: Dr. Skaggs on 08-11-2022 Calcium [Mass/Vol] 9.3 mg/dL 8.5-10.1 [facility] Serum or plasma creatinine m easurement (mass/volume)Ordered By: Dr. Skaggs on 08-11-2022 Creatinine [Mass/Vol] 1.01 mg/dL 0.70-1.30 [facility] Comment on above: The validity of the calculated GFR & GFRAA in patients over 70 years has not been determined. Clinical correlation is essential. Serum or plasma urea nitroge n measurement (mass/volume)Ordered By: Dr. Skaggs on 08-11-2022 Urea nitrogen [Mass/Vol] 12 mg/dL 7-18 [facility] Thin prep Papanicolaou smear with manual screeningOrdered By: Dr. Skaggs on 08-11-2022 Thin prep Papanicolaou smear with manual screening 11 5-15 [facility] Urine phencyclidine (PCP) de tectionOrdered By: Dr. Skaggs on 08-11-2022 Phencyclidine Ql (U) Negative < 25 ng/mL [facility] CNOVon 07-31-2022 CNOV Office Visit (CORNELLS ) ANJEL ROSS ([id number]) 1950 M NFR Date Time Provider Department 07/31/22 9:15 AM MATEO BENTON During your visit today, we recorded the following information about you: Mateo Benton III, MD 07/31/2022 9:27 AM Signed Subjective: Patient is status post a colonoscopy completed at [facility] on 07/06/2022. Patient was noted to [...] in 5 years. Referring Provider: MATEO BENTON [[id number]] Allergies As of Date: 07/31/2022 Noted Allergy [...] mg by mouth daily at bedtime. - Zqbst-7-EBG-EPA-Fish Oil 1,000 mg (120 mg-180 mg) cap [...] - wit (more content not included)... Normal [facility] 07-14-2022 [facility] Telephone (VobileS) ANJEL ROSS ([id number]) 1950 M [facility] Date Time Provider Department 07/14/22 [facility] During your visit today, we recorded the following information about you: Silvia Huitron 07/14/2022 1:06 PM Signed Patient called requesting results from colonoscopy. Elizabeth Ruth LPN 07/14/2022 1:27 PM Signed Please call patient to schedule a virtual or office visit to view colonoscopy results. Thank you. Anjel# [phone] Georgie Alatorre Pss 07/14/2022 2:36 PM Addendum [...] mg by mouth daily at bedtime. - Ftups-7-NZA-EPA-Fish Oil (FISH OIL) 1,000 mg (120 mg-180 [...] initial [Z00.0 (more content not included)... Normal [facility] CNOVon 04-14-2022 CNOV Office Visit (GENSWS ) ANJEL ROSS ([id number]) 1950 M NFR Date Time Provider Department [...] colonoscopy 03/26/[address] Anjel Nagy at [facility]. Patient was noted to have a [...] W/COLLJ SPEC WHEN PFRMD 03/25/16 Colonoscopy outpt [facility] - COLSC FLX W/REMOVAL LESION BY HOT [...] mg by mouth daily at bedtime. - Ffits-6-XPK-EPA-Fish Oil (FISH OIL) 1,000 mg (120 mg-180 [...] 3-4 ti (more content not included)... Normal [facility] Sophie 03-13-2022 DASHA Telephone (NE50MN) ANJEL ROSS ([id number]) 1950 M NFR Date Time Provider Department 03/13/22 ANNIA CHUNG NE50MN During your visit today, we recorded the following information about you: Imani Mejia 03/13/2022 11:11 AM Signed Medication Concern Person Calling Silvia Rehman from [facility] Name of medication Depakote XR. [...] mouth three times daily. Authorizing Provider: MIQUEL OBREGON, FRANCINE.KRISTEN Talley RN 03/13/2022 1:59 PM Signed Notified [...] mg by mouth daily at bedtime. - Owbss-1-OPB-EPA-Fish Oil (FISH OIL) 1,000 mg (120 mg-180 [...] 1 tablet (more content not included)... Normal [facility] Sophie [facility]-20[facility]NE[facility] ANJEL ROSS ([id number]) 1950 M NFR Date Time Provider Department [...] mg by mouth daily at bedtime. - Dnckp-3-MMG-EPA-Fish Oil (FISH OIL) 1,000 mg (120 mg-180 [...] [E88.81] 01/19/2014 (more content not included)... Normal [facility] Vital Signs Date Time Vital Sign Value Performing Clinician Axel herrera 01-31-2025 11:23-0400 Body temperature 97.8 [degF] Dr. Avani Eduardo MD [facility] 01-31-2025 11:23-0400 Heart rate 87 /min Dr. Avani Eduardo MD [facility] 01-31-2025 11:23-0400 Respiratory rate 16 /min Dr. Avani Eduardo MD [facility] 01-31-2025 11:23-0400 SaO2% (BldA) [Mass fraction] 96 % Dr. Avani Eduardo MD [facility] 11-01-2024 10:46-0500 Body temperature 97.7 [degF] [facility] 11-01-2024 10:46-0500 Diastolic blood pressure 73 mm[Hg] Out [facility] 11-01-2024 10:46-0500 Heart rate 74 /min Out [facility] 11-01-2024 10:46-0500 Respiratory rate 16 /min [facility] 11-01-2024 10:46-0500 SaO2% (BldA) [Mass fraction] 95 % [facility] 11-01-2024 10:46-0500 Systolic blood pressure 134 mm[Hg] [facility] 01-18-2023 14:37-0400 Body temperature 98.2 [degF] Dr. Maddie Cantor [facility] 01-18-2023 14:37-0400 Diastolic blood pressure 65 mm[Hg] Dr. Maddie Cantor [facility] 01-18-2023 14:37-0400 Heart rate 93 /min Dr. Maddie Cantor [facility] 01-18-2023 14:37-0400 Respiratory rate 18 /min Dr. Maddie Cantor [facility] 01-18-2023 14:37-0400 SaO2% (BldA) [Mass fraction] 94 % Dr. Maddie Cantor [facility] 01-18-2023 14:37-0400 Systolic blood pressure 114 mm[Hg] Dr. Maddie Cantor [facility] 01-18-2023 02:19-0400 Body mass index (BMI) [Ratio] 35.9 kg/m2 Dr. Maddie Cantor [facility] 01-18-2023 02:19-0400 Body weight 91.[address] Maddie Cantor [facility] 01-15-2023 11:23-0400 Body height 160.[address] Maddie Cantor [facility] 01-10-2023 09:36-0400 Body temperature 98 [degF] Dr. Maddie Cantor [facility] 01-10-2023 09:36-0400 Diastolic blood pressure 54 mm[Hg] Dr. Maddie Cantor [facility] 01-10-2023 09:36-0400 Heart rate 76 /min Dr. Maddie Cantor [facility] 01-10-2023 09:36-0400 Respiratory rate 16 /min Dr. Maddie Cantor [facility] 01-10-2023 09:36-0400 SaO2% (BldA) [Mass fraction] 97 % Dr. Maddie Cantor [facility] 01-10-2023 09:36-0400 Systolic blood pressure 107 mm[Hg] Dr. Maddie Cantor [facility] 01-10-2023 01:40-0400 Body height 160.[address] Maddie Cantor [facility] 01-10-2023 01:40-0400 Body mass index (BMI) [Ratio] 35.3 kg/m2 Dr. Maddie Cantor [facility] 01-10-2023 01:40-0400 Body weight 90.[address] Maddie Cantor [facility] 01-07-2023 16:25-0400 Body temperature 99 [degF] Dr. Maddie Cantor [facility] 01-07-2023 16:25-0400 Diastolic blood pressure 79 mm[Hg] Dr. Maddie Cantor [facility] 01-07-2023 16:25-0400 Heart rate 89 /min Dr. Maddie Cantor [facility] 01-07-2023 16:25-0400 Respiratory rate 16 /min Dr. Maddie Cantor [facility] 01-07-2023 16:25-0400 SaO2% (BldA) [Mass fraction] 98 % Dr. Maddie Cantor [facility] 01-07-2023 16:25-0400 Systolic blood pressure 114 mm[Hg] Dr. Maddie Cantor [facility] 01-07-2023 12:51-0400 Body mass index (BMI) [Ratio] 37.8 kg/m2 Dr. Maddie Cantor [facility] 01-06-2023 06:00-0400 Body weight 96.[address] Maddie Cantor [facility] 12-31-2022 07:42-0400 Diastolic blood pressure 72 mm[Hg] [facility] 12-31-2022 07:42-0400 Heart rate 69 /min [facility] 12-31-2022 07:42-0400 Respiratory rate 15 /min [facility] 12-31-2022 07:42-0400 SaO2% (BldA) [Mass fraction] 98 % [facility] 12-31-2022 07:42-0400 Systolic blood pressure 139 mm[Hg] [facility] 12-31-2022 06:02-0400 Body height 160.02 cm [facility] 12-31-2022 06:02-0400 Body mass index (BMI) [Ratio] 34.2 kg/m2 [facility] 12-31-2022 06:02-0400 Body temperature 97.2 [degF] [facility] 12-31-2022 06:02-0400 Body weight 87.7 kg [facility] 11-16-2022 19:04-0500 Diastolic blood pressure 69 mm[Hg] [facility] 11-16-2022 19:04-0500 Heart rate 88 /min [facility] 11-16-2022 19:04-0500 Respiratory rate 16 /min [facility] 11-16-2022 19:04-0500 SaO2% (BldA) [Mass fraction] 97 % [facility] 11-16-2022 19:04-0500 Systolic blood pressure 143 mm[Hg] [facility] 11-16-2022 18:12-0500 Body height 175.26 cm [facility] 11-16-2022 18:12-0500 Body mass index (BMI) [Ratio] 27.6 kg/m2 [facility] 11-16-2022 18:12-0500 Body temperature 98.1 [degF] [facility] 11-16-2022 18:12-0500 Body weight 84.9 kg [facility] 08-12-2022 13:43-0500 Diastolic blood pressure 85 mm[Hg] [facility] 08-12-2022 13:43-0500 Heart rate 75 /min [facility] 08-12-2022 13:43-0500 Respiratory rate 15 /min [facility] 08-12-2022 13:43-0500 SaO2% (BldA) [Mass fraction] 98 % [facility] 08-12-2022 13:43-0500 Systolic blood pressure 132 mm[Hg] [facility] 08-11-2022 14:37-0500 Body height 160.02 cm [facility] Work Phone: 08-11-2022 14:37-0500 Body mass index (BMI) [Ratio] 37.2 kg/m2 [facility] 08-11-2022 14:37-0500 Body temperature 97.6 [degF] [facility] 08-11-2022 14:37-0500 Body weight 95.25 kg [facility] 07-06-2022 17:01-0400 Body temperature 97.6 [degF] [facility] Work Phone: 07-06-2022 17:01-0400 Diastolic blood pressure 69 mm[Hg] [facility] Work Phone: 07-06-2022 17:01-0400 Heart rate 71 /min [facility] Work Phone: 07-06-2022 17:01-0400 Respiratory rate 18 /min [facility] Work Phone: 07-06-2022 17:01-0400 SaO2% (BldA) [Mass fraction] 97 % [facility] Work Phone: 07-06-2022 17:01-0400 Systolic blood pressure 126 mm[Hg] [facility] Work Phone: 07-06-2022 11:41-0400 Body height 160.02 cm [facility] Work Phone: 07-06-2022 11:41-0400 Body mass index (BMI) [Ratio] 35.9 kg/m2 [facility] Work Phone: 07-06-2022 11:41-0400 Body weight 92.07 kg [facility] Work Phone: Encounters Encounter Date Encounter Type Care Provider Facility Start: 05-08-2025 End: 05-08-[address] Avani Eduardo MD -[facility] Start: 05-08-2025 End: 05-08-[address] Avani Eduardo MD [facility] Start: 05-08-2025 End: 05-08-2025 ambulatory Avani Rolancait Facility:[facility] Start: 05-01-2025 [facility] Start: 05-01-[address] Avani Eduardo MD -[facility] Start: 04-24-2025 ambulatory [facility] Rolanelizabeth Facility:[facility] Start: 04-24-[address] Avani Eduardo MD [facility] Start: 04-03-2025 ambulatory Avanigómez Eduardo Facility:[facility] Start: 04-03-[address] Avani Eduardo MD -[facility] Start: 02-28-2025 ambulatory Avanigómez Eduardo Facility:[facility] Start: 02-28-[address] Avani Eduardo MD -[facility] Start: 02-13-2025 Non-patient / Non-visit Dr. Eris gracia MD -[facility] Start: 02-13-2025 End: 02-13-[address] Avani Eduardo MD [facility] Work Phone: Start: 02-13-2025 End: 02-13-2025 Patient encounter procedure Kourtney SUERO -[facility] Work Phone: Start: 02-13-2025 End: 02-13-2025 ambulatory Avani Eduardo Facility:[facility] Start: 02-01-2025 End: 02-01-[address] Avani Eduardo MD -[facility] Start: 02-01-[address] Avani Eduardo MD -[facility] Start: 01-31-2025 End: 01-31-2025 Patient encounter procedure Kourtney SUERO -[facility] Work Phone: Start: 01-31-2025 End: 02-01-2025 ambulatory Avani Rolancait Facility:[facility] Start: 01-05-2025 End: 01-05-[address] Avani Eduardo MD [facility] Start: 01-05-2025 End: 01-05-2025 ambulatory Avani Eduardo Facility:[facility] Start: 01-03-2025 End: 01-03-[address] Avani Eduardo MD [facility] Start: 01-02-2025 End: 01-03-2025 ambulatory Avani Eduardo Facility:[facility] Start: 01-02-[address] Avani Eduardo MD [facility] Start: 12-06-2024 End: 12-06-2024 ambulatory Out of Town Doctor [facility] Work Phone: Start: 12-06-2024 End: 12-06-[address] Avani Eduardo MD [facility] Start: 12-06-2024 End: 12-06-2024 ambulatory Avani Eduardo Facility:[facility] Start: 11-01-2024 End: 11-01-2024 Patient encounter procedure Kourtney SUERO -[facility] Work Phone: Start: 11-01-2024 End: 11-01-2024 ambulatory Avani Eduardo Facility:[facility] Start: 10-05-2024 End: 10-05-[address] Avani Eduardo MD [facility] Start: 10-05-2024 End: 10-05-2024 ambulatory Avani Eduardo Facility:[facility] Start: 09-29-2024 End: 09-29-[address] Avani Eduardo MD [facility] Start: 09-29-2024 End: 09-29-2024 ambulatory Out of Town Doctor Facility:[facility] Start: 08-01-2024 End: 08-01-2024 ambulatory Out of Town Doctor Facility:[facility] Start: 06-28-2024 End: 06-28-2024 ambulatory Out of Town Doctor Facility:[facility] Start: 06-12-2024 ambulatory Avani Mcgheei ty:[facility] Start: 04-24-2024 End: 04-24-2024 ambulatory STANTON ANDREWS Not Available Start: 03-27-2024 End: 03-27-2024 ambulatory STANTON ANDREWS Not Available Start: 03-14-2024 End: 03-14-2024 ambulatory STANTON ANDREWS Not Available Start: 01-10-2024 End: 01-10-2024 ambulatory [facility] Work Phone: Start: 01-10-2024 End: 01-10-2024 Departed Referred [facility] Start: 01-10-2024 Registered Referred [facility] Start: 01-03-2024 End: 01-03-2024 ambulatory [facility] Work Phone: Start: 01-03-2024 End: 01-03-2024 Departed Referred [facility] Start: 12-15-2023 End: 12-15-2023 ambulatory [facility] Work Phone: Start: 12-15-2023 End: 12-15-2023 Departed Referred [facility] Start: 11-04-2023 End: 11-04-2023 ambulatory [facility] Work Phone: Start: 11-04-2023 End: 11-04-2023 Departed Referred [facility] Start: 11-04-2023 Registered Referred [facility] Start: 10-20-2023 End: 10-20-2023 ambulatory [facility] Work Phone: Start: 10-20-2023 End: 10-20-2023 Departed Referred [facility] Start: 10-11-2023 End: 10-11-2023 ambulatory [facility] Work Phone: Start: 10-11-2023 End: 10-11-2023 Departed [facility]erred [facility] Start: 10-11-2023 Registered Referred [facility] Start: 10-05-2023 End: 10-05-2023 ambulatory [facility] Work Phone: Start: 10-05-2023 End: 10-05-2023 Departed Referred [facility] Start: 10-05-2023 Registered Referred [facility] Start: 09-22-2023 End: 09-22-2023 ambulatory [facility] Work Phone: Start: 09-22-2023 End: 09-22-2023 Departed Referred [facility] Start: 09-22-2023 Registered Referred [facility] Start: 09-16-2023 End: 09-16-2023 ambulatory STANTON ANDREWS Not Available Start: 09-13-2023 End: 09-13-2023 ambulatory [facility] Work Phone: Start: 09-13-2023 End: 09-13-2023 Departed [facility]erred [facility] Start: 08-30-2023 End: 08-30-2023 ambulatory [facility] Work Phone: Start: 08-30-2023 End: 08-30-2023 Departed [facility]erred [facility] Start: 08-23-2023 End: 08-23-2023 ambulatory [facility] Work Phone: Start: 08-23-2023 End: 08-23-2023 Departed Referred [facility] Start: 08-23-2023 Registered Referred [facility] Start: 05-24-2023 End: 05-24-2023 ambulatory [facility] Work Phone: Start: 05-24-2023 End: 05-24-2023 Departed Referred [facility] Start: 02-16-2023 Registered Referred [facility] Start: 02-09-2023 End: 02-09-2023 Departed Referred [facility] Start: 02-05-2023 End: 02-05-2023 Departed Referred [facility] Start: 01-18-2023 Non-patient / Non-visit Dr. Nelson Cantor [facility] Start: 01-17-2023 Non-patient / Non-visit Dr. Nelson MACIEL [facility] Start: 01-16-2023 Non-patient / Non-visit Dr. Nelson MACIEL [facility] Start: 01-15-2023 Non-patient / Non-visit Dr. Nelson MACIEL [facility] Start: 01-14-2023 Non-patient / Non-visit Dr. Nelson Cantor [facility] Start: 01-13-2023 Non-patient / Non-visit Dr. Nelson MACIEL [facility] Start: 01-12-2023 Non-patient / Non-visit Dr. Nelson MACIEL [facility] Start: 01-11-2023 Non-patient / Non-visit Dr. Nelson Cantor [facility] Start: 01-10-2023 End: 01-18-2023 Evaluation and management of inpatient Dr. Maddie Cantor [facility] Start: 01-10-2023 End: 01-18-[address] Maddie Cantor [facility] Work Phone: Start: 01-08-2023 End: 01-09-2023 Evaluation and management of inpatient MADDIE CANTOR Facility:[facility] Start: 01-07-2023 Non-patient / Non-visit Dr. Nelson Cantor [facility] Start: 01-06-2023 Non-patient / Non-visit Dr. Nelson Cantor [facility] Start: 01-05-2023 Non-patient / Non-visit Dr. Nelson Cantor [facility] Start: 01-04-2023 Non-patient / Non-visit Dr. Nelson MACIEL [facility] Start: 01-04-2023 End: 01-07-2023 Evaluation and management of inpatient Dr. Maddie MCAIEL [facility] Start: 12-31-2022 End: 12-31-2022 Emergency department patient visit [facility] Start: 11-16-2022 End: 11-16-2022 Emergency department patient visit [facility] Start: 09-29-2022 Refill Annia telles MD Work Phone: Neurology Comment on above: Refill Request Start: 08-11-2022 End: 08-12-2022 Emergency department patient visit [facility] Start: 07-31-2022 End: 07-31-2022 ambulatory MATEO BENTON Facility:[facility] Start: 07-31-2022 End: 07-31-2022 Patient encounter procedure Mateo Benton MD Work Phone: General Surgery Comment on above: Personal history of colon cancer (Primary Dx); History of colonic polyps Start: 07-14-2022 Telephone encounter Mateo crowder MD Work Phone: General Surgery Comment on above: Results Start: 07-06-2022 End: 07-06-2022 Admission to same day surgery center [facility] Start: 07-06-2022 End: 07-06-2022 ambulatory [facility] Work Phone: Start: 04-14-2022 End: 04-14-2022 ambulatory MADELIN PHYLLIS Facility:[facility] Start: 03-13-2022 Telephone encounter Annia joe MD Work Phone: Neurology Comment on above: Medication Question (Depakote XR) Start: 03-06-2022 End: 03-10-2022 Telemedicine consultation with patient Nils Marie APRN.ASPHALT WORKER Work Phone: [facility] Start: 03-06-2022 End: 03-10-2022 ambulatory Nils Marie APRN.ASPHALT WORKER Work Phone: Neurology Comment on above: 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 Facility [facility] Procedures Date Procedure Procedure Detail Performing [...] 07-06-2022 Colonoscopy Start: 03-26-2017 Colonoscopy Miquel ruano APRN.ASPHALT WORKER Work Phone: Bacteria identified in Urine by Culture Dr. Maddie MACIEL Urine culture Dr. Maddie MACIEL Viral antigen assay Viral antigen assay Plan of Treatment Date Care Activity Detail Author Start: 04-14-2023 BP CONTROLLED (<130/80) BP CONTROLLE D (<130/80) [facility] Start: 03-18-2023 DIABETES SCREEN DIABETES SCREEN [facility] Start: 01-18-2023 Patient discharge [facility] Start: 01-17-2023 [facility] Start: 01-16-2023 Speech therapy assessment [facility] Start: 01-15-2023 [facility] Start: 01-12-2023 Following clinical pathway protocol [facility] Start: 01-10-2023 Fall prevention [facility] Start: 01-10-2023 Provision of activit y privileges [facility] Start: 01-10-2023 Assessment of risk o f venous thromboembolism [facility] Start: 01-10-2023 Insertion of cathete r into peripheral vein [facility] Start: 01-10-2023 Providing care accor ding to [facility] Start: 01-10-2023 Referral to service [facility] Start: 01-10-2023 [facility] Start: 01-10-2023 Following clinical pathway protocol [facility] Start: 01-10-2023 Referral to occupati onal therapist [facility] Start: 01-10-2023 Referral to service [facility] Start: 01-10-2023 Admission procedure [facility] Start: 01-10-2023 Patient referral to dietitian [facility] Start: 01-07-2023 Patient discharge [facility] Start: 01-05-2023 Speech therapy assessment [facility] Start: 01-04-2023 Following clinical pathway protocol [facility] Start: 01-04-2023 Provision of activit y privileges [facility] Start: 01-04-2023 Aspiration precautions [facility] Start: 01-04-2023 Assessment of risk o f venous thromboembolism [facility] Start: 01-04-2023 Fall prevention [facility] Start: 01-04-2023 Insertion of cathete r into peripheral vein [facility] Start: 01-04-2023 Introduction of urin dinora catheter [facility] Start: 01-04-2023 Measuring intake and output [facility] Start: 01-04-2023 Providing care accor ding to [facility] Start: 01-04-2023 Referral to occupati onal therapist [facility] Start: 01-04-2023 Referral to service [facility] Start: 01-04-2023 Application of elast ic bandage [facility] Start: 01-04-2023 Continuous positive airway pressure ventilation treatment [facility] Start: 01-04-2023 Elevation of affecte d extremity [facility] Start: 01-04-2023 Neurological assessment [facility] Start: 01-04-2023 Wound care [facility] Start: 01-04-2023 End: 01-04-2023 [facility] Start: 01-04-2023 Admission procedure [facility] Start: 10-04-2022 ADVANCE DIRECTIVE DISCUSSION ADVANCE DIRECTIVE DISCUSSION [facility] Start: 08-11-2022 Referral to service [facility] Start: 08-11-2022 End: 08-11-2022 Suicide precautions [facility] Start: 07-06-2022 Colsc flx w/rmvl of tumor polyp lesion snare tq COLONOSCOPY W/LESION REMOVAL [facility] Work Phone: Start: 07-06-2022 Patient discharge [facility] Work Phone: Start: 06-27-2022 COVID-19 VACCINE (4 - Booster for Moderna series) COVID-19 VACCINE (4 - Booster for Moderna series) [facility] Start: 06-04-[address] 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) Expected: 03/10/2022, Expires: 05/10/2022 [facility] Work Phone: Comment on above: Expected: 03/10/2022 , Expires: 05/10/2022 Start: 03-10-2022 End: 05-10-2022 levETIRAcetam [Mass/volume] in Serum or Plasma LEVETIRACETAM Lab Routine 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) Expected: 03/10/2022, Expires: 05/10/2022 [facility] Work Phone: Comment on above: Expected: 03/10/2022 , Expires: 05/10/2022 Start: 03-10-2022 End: 05-10-2022 VALPROIC A/DEPAKENE VALPROIC A/DEPAKENE Lab Routine 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) Expected: 03/10/2022, Expires: 05/10/2022 [facility] Work Phone: Comment on above: Expected: 03/10/2022 , Expires: 05/10/2022 Start: 10-04-2021 ADVANCE DIRECTIVE DISCUSSION ADVANCE DIRECTIVE DISCUSSION [facility] Start: 11-20-2020 COVID-19 VACCINE (2 - Moderna 3-dose series) COVID-19 VACCINE (2 - Moderna 3-dose series) [facility] Start: 10-22-2020 LIPID SCREEN LIPID SCREEN [facility] Start: 03-26-2018 Colonoscopy COLONOSCOPY [facility] Start: 03-26-2018 COLORECTAL CANCER SCREENING COLORECTAL CANCER SCREENING [facility] Start: 09-19-2016 FECAL OCCULT BLOOD FECAL OCCULT BLOO D [facility] Start: 11-02-2015 PNEUMOCOCCAL: 65+ (#3) PNEUMOCOCCAL: 65+ (#3) [facility] Start: 11-02-2015 PNEUMOCOCCAL: 65+ (2 - PPSV23 or PCV20) PNEUMOCOCCAL: 65+ (2 - PPSV23 or PCV20) [facility] Start: 07-30-2015 SHINGRIX VACCINE (2 of 3) PALMA GRIX VACCINE (2 of 3) [facility] Start: 2014 PNEUMOVAX AGE 65 AND OVER WITH 5YR LOOKBACK (#1) PNEUMOVAX AGE 65 AND OVER WITH 5YR LOOKBACK (#1) [facility] Start: 06-06-2006 Urine microalbumin profile DTAP,TDAP,TD (1 - Tdap) [facility] Start: 1994 COLOGUARD (FIT-DNA) COLOGUARD (FIT-D NA) [facility] Start: [address] COLONOGRAPHY [facility] Start: 1994 SIGMOIDOSCOPY SIGMOIDOSCOPY [facility] Start: 1967 ANNUAL PCP TEAM 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 CLERK RODNEY DISEASE VISIT ANNUAL PCP TEAM CHRONIC DISEASE VISIT [facility] Start: 1967 BP CONTROLLED (<130/80) BP CONTROLLE D (<130/80) [facility] Start: 1967 HEPATITIS C SCREENING HEPATITIS C SC BARRETT [facility] Patient Education [facility] Work Phone: Patient referral [facility] Work Phone: [facility] Immunizations Immunization Date Immunization Notes Care Provider Fa alexa 07-21-2022 influenza, injectabl e, quadrivalent, preservative free [facility] 07-21-2022 influenza, seasonal, injectable Dr. Maddie Cantor [facility] 02-24-2022 Covid (Moderna) Dr. Maddie Cantor [facility] 11-18-2020 Covid (Moderna) Dr. Maddie Cantor [facility] 10-23-2020 Covid (Moderna) Dr. 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[employer] WORKER Work Phone: [facility] 06-04-2015 zoster vaccine, live Miquel guthrie HOLLOW HANDLE BENCH WORKER.[employer]PH[employer] WORKER Work Phone: [facility] 11-02-2014 pneumococcal conjuga te vaccine, 13 valent Miquel Obregon HOLLOW HANDLE BENCH WORKER.ASPHALT WORKER Work Phone: [facility] 08-04-2014 Influenza virus vaccine [facility] 08-02-2014 influenza, seasonal, injectable Miquel Obregon HOLLOW HANDLE BENCH WORKER.ASPHALT WORKER Work Phone: [facility] 07-14-2013 influenza virus vacc ine, unspecified formulation Miquel Obregon HOLLOW HANDLE BENCH WORKER.ASPHALT WORKER Work Phone: [facility] 06-05-2006 tetanus and diphther ia toxoids, adsorbed, preservative free, for adult use (2 Lf of tetanus toxoid and 2 Lf of diphtheria toxoid) Miquel Obregon HOLLOW HANDLE BENCH WORKER.ASPHALT WORKER Work Phone: [facility] 07-30-2005 influenza virus vacc ine, unspecified formulation Miquel Obregon HOLLOW HANDLE BENCH WORKER.ASPHALT WORKER Work Phone: [facility] Work Phone: 06-13-2005 tetanus and diphther ia toxoids, adsorbed, preservative free, for adult use (2 Lf of tetanus toxoid and 2 Lf of diphtheria toxoid) Miquel Obregon HOLLOW HANDLE BENCH WORKER.[employer]PHALT WORKER Work Phone: [facility] Work Phone: 09-11-1997 pneumococcal polysaccharide vaccine, 23 valent Miquel Hernandezlala HOLLOW HANDLE BENCH WORKER.[facility] Work Phone: [facility] Work Phone: Payers Date Payer Category Payer Unknown [id number] 2024 Self-pay [id number] 2024 Unknown [id number] 2023 Medicare [id number] 2017 Medicaid UHC MEDICAID MYC ARE UHC MEDICAID [id number] 2017-Present [phone] [address] [place] [address] Medicaid [id number] 2017 Medicaid UHC MEDICAID MYC ARE [facility] MEDICAID [id number] 2017-Present [phone] [address] [place] [address] Medicaid [id number] 2017 Medicare [id number] 2017 Unknown [id number] 1950 Unknown [id number] 2.16.840.1.497742.3.579.2.1259 1950 Unknown [id number] 2.16.840.1.231792.3.579.2.1258 1950 Unknown [id number] 2.16.840.1.834686.3.579.2.9 1950 Unknown [id number] 2.16.840.1.825769.3.579.2.1259 Medicare [id number] Medicare MEDICARE PART A B [id number] Unknown [id number] 2.16.840.1.015200.3.579.2.462 Unknown [id number] 2.16.840.1.386160.3.579.2.462 Unknown [id number] 2.16.840.1.405324.3.579.2.462 Unknown [id number] 2.16.840.1.611145.3.579.2.462 Unknown [id number] 2.16.840.1.550310.3.579.2.462 Unknown [id number] 2.16.840.1.210889.3.579.2.462 Unknown [id number] 2.16.840.1.975278.3.579.2.462 Unknown [id number] 2.16.840.1.244416.3.579.2.462 Unknown [id number] 2.16.840.1.802976.3.579.2.462 Unknown [id number] 2.16.840.1.552390.3.579.2.462 Unknown [id number] 2.16.840.1.800592.3.579.2.462 Unknown [id number] 2.16.840.1.110828.3.579.2.462 Unknown [id number] 2.16.840.1.446786.3.579.2.462 Unknown [id number] 2.16.840.1.359994.3.579.2.462 Unknown [id number] 2.16.840.1.411308.3.579.2.462 Unknown [id number] 2.16.840.1.551360.3.579.2.462 Unknown [id number] 2.16.840.1.428331.3.579.2.462 Unknown [id number] 2.16.840.1.348397.3.579.2.462 Unknown [id number] 2.16.840.1.332267.3.579.2.462 Social History Date Type Detail Facility Start: 07-31-2015 End: 01-10-2023 Tobacco smoking status NHIS Never smoked tobacco [facility] Start: 11-11-2020 End: 07-31-2022 Alcohol intake Current non-drinker of alcohol (finding) [facility] Start: 1950 Sex Assigned At Not on file [facility] Start: 01-17-2022 End: 07-31-2022 Exposure to SARS-CoV-2 (event) Not sure [facility] Start: 07-01-2022 End: 01-10-2023 Tobacco smoking status NHIS Unknown if ever smoked [facility] Start: 04-14-2022 None [facility] Start: 07-11-2019 - [facility] Start: 04-14-2022 Non-smoker [facility] Start: 1950 Sex Assigned At Male W [facility] Start: 07-31-2015 Tobacco use and exposure Smokeless tobacco non-user [facility] Start: 01-02-2025 Sex Male (finding) [facility] Goals Date Patient Goal Desired Activity /State Functional Status Date Assessment Result Facility 01-18-2023 Functional status Chair [facility] Work Phone: 01-07-2023 Functional status Activity Abili ty With Assist of 1 [facility] Work Phone: 01-06-2023 Functional status Ambulates [facility] Work Phone: Mental Status Date Assessment Result Facility 01-18-2023 Cognitive function Voice/Name [facility] Work Phone: 01-10-2023 Cognitive function Level Of Cons ciousness Awake;Alert;Appropriate;Follow s Commands [facility] Work Phone: 01-07-2023 Cognitive function Voice/Name [facility] Work Phone: 07-06-2022 Cognitive function Drowsy [facility] Work Phone: 07-06-2022 Cognitive function Arousable To Voice/Nam e [facility] Work Phone: Clinical Notes 01-28-2016 to 01-31-2025 Note Date & Type Note Facility 01-31-2025 Evaluation note Diagnosis Onset Date Resolution Bilateral lower extremity edema acute January 31, 2025 11:04am PVD (peripheral vascular disease) acute January 31 11:04am [facility] Work Phone: 1(277) 319-547301-29-2025 Evaluation note* Diagnosis Onset Date Resolution Status Admit Date Bilateral lower extremity edema acute November 01 10:09am PVD (peripheral vascular disease) acute November 01 10:09am [facility] Work Phone: 1(642) 874-998901-29-2025 Evaluation note* Diagnosis Onset Date Resolution Status Admit Date Bilateral lower extremity edema acute November 01 10:09am PVD (peripheral vascular disease) acute November 01 10:09am Bilateral lower extremity edema acute January 31, 2025 11:04am PVD (peripheral vascular disease) acute January 31, 2025 11:04am [facility] Work Phone: 1(517) 208-861504-17-2023 Discharge summary Author [facility] January 18, 2023 2:44pm Note Date/Time January 18, 2023 2:4 4pm [facility] Medical Records Department [address] [place] [address] Discharge Summary 01/18/23 1438 MR#: [id number] Acct: [id number] Name: ANJEL ROSS Rep #:[id number] : 1950 72 From: Kary Recio MD PCP: NILS CANTOR Status:ADM PAIGE [facility] Providers Date of Admission: 01/10/23 Date of [...] he had NPH and so was transferred [facility] recently. * He was reviewed there and [...] confirmed from documentation he brought from [facility]. * Total nrgj-ug-joda time 17 minutes. Total time spent on [...] 270 mg PO DAILY supplement 01/10/23 omega 2-nip-chm-fish oil 1,000 mg (120 mg-180 mg) capsule [...] valproic acid levels. He was transferred to [facility] where his symptoms were thought to be [...] but this improved. Patient was called for half-way and was discharged to the shelter facility on 01/18/2023. He was discharged on p.o. lactulose. He is to follow-up with his primary care doctor and is to have monitoring of his ammonia level in the half-way. Was referred to gastroenterology on outpatient basis [...] (Auto) 44.0 L, Lymph % (Auto) 38.8, Delta % (Auto) 13.7 H, Eos % (Auto) [...] mg Capsule 200 mg PO TID omega 7-yrp-crv-fish oil 1,000 mg (120 mg-180 mg) Capsule 1 cap PO BID ferrous gluconate 270 mg (27 mg iron) Tablet 270 mg PO DAILY Discontinued acetaminophen 325 mg tablet 1,300 mg PO BID Label Comments: 4 TABLETS (1300MG) BYTMOUTH TWICE DAILY / DX:E Referrals / Follow Up: NILS CANTOR [Other] NILS CANTOR [Other] Doctor,Your [Non-Staff] - 1 Day for another exam Disposition Disposition (needs filled in before D/C Order can be placed): Long-Term Facility Charges/Coding Visit Charges Inpatient E&M: 54294 Disch Hosp >30min 01/18/23 1444 <Electronically signed by Kary Recio MD> Cosigner Signature (if applicable): CC: Dr. Kary Recio MD; NILS CANTOR~ Signed [facility] Work Phone: 1(587) 646-846404-17-[address] Recio [facility] January 18, 2023 2:38pm Note Date/Time January 18, 2023 2:3 8pm [facility] Medical Records Department [address] [facility] [place] [address] Transfer to [facility] MR#: [id number] Acct: [id number] Name: ANJEL ROSS Rep #:[id number] : 1950 72 From: Kary Recio MD PCP: NILS CANTOR Status:ADM PAIGE Certification of patient admission REQUIRED AT TIME OF ADMISSION. I CERTIFY THAT POST-HOSPITAL ECF SERVICES ARE REQUIRED TO BE GIVEN ON AN IN-PATIENT BASIS BECAUSE OF THE ABOVE NAMED PATIENT'S NEED FOR ALF CARE ON A CONTINUING BASIS FOR THE [...] he had NPH and so was transferred [facility] recently. * He was reviewed there and [...] was confirmed from documentation he brought from [facility]. * Total duxi-br-cejp time 17 minutes. Total time spent on [...] mg Capsule 200 mg PO TID omega 3-iss-jio-fish oil 1,000 mg (120 mg-180 mg) Capsule 1 cap PO BID ferrous gluconate 270 mg (27 mg iron) Tablet 270 mg PO DAILY Discontinued acetaminophen 325 mg tablet 1,300 mg PO BID Label Comments: 4 [facility]1300[facility]) [facility] / DX:E Referrals / Follow Up: NILS CANTOR [Other] NILS CANTOR [Other] Doctor,Your [Non-Staff] - 1 Day for another exam Disposition Disposition (needs filled in before D/C Order can be placed): Long-Term Facility 01/18/23 1438 <Electronically signed by Kary Recio MD> Cosigner Signature (if applicable): CC: Dr. Kary Recio MD; Dr. Nina Wilder MD; NILS CANTOR ~ [facility] Work Phone: 1(613) 674-974504-16-[address] Wilder [facility] January 17, 2023 3:08pm Note Date/Time January 17, 2023 7:4 6am [facility] Medical Records Department [address] [place] [address] Progress Note - Hospitalist 01/17/2346 MR#: [id number] Acct: [id number] Name: ANJEL ROSS Rep #:[id number] : 1950 72 From: Nina Wilder MD PCP: NILS CANTOR Status:ADM PAIGE Location: [facility] [id number] Reason for Visit Reason for Visit: Diagnoses [...] 41.2 L, Lymph % (Auto) 41.7 H, Delta % (Auto) 13.0 H, Eos % (Auto) [...] 14:28 EDT Reading Location ID and State: [facility] / [place] , Service support , Rhythm Strip Rhythm [...] for their facility after his d/c [facility] -PT recommends rehab/snf/tcu -Given mental health [...] [facility]. -[facility] was [facility] and the symptoms [...] 30 mins Charges/Coding Visit Charges Inpatient E&M: 12819 Subs Hosp L2 01/17/23 1508 <Electronically signed by Nina Wilder MD> Cosigner Signature (if applicable): CC: ~ Signed [facility] Work Phone: 1(927) 942-591104-15-[address] Wilder [facility] January 16, 2023 11:52am Note Date/Time January 16, 2023 10: 27am [facility] Medical Records Department [address] [place] [address] [place] [address] Progress Note - Hospitalist 01/16/23 1026 MR#: [id number] Acct: [id number] Name: ANJEL ROSS Rep #:[id number] : 1950 72 From: Nina Wilder MD PCP: NILS CANTOR Status:ADM PAIGE Location: [facility] [id number] Reason for Visit Reason for Visit: Diagnoses [...] Neut % (Auto) 47.5, Lymph % (Auto)36.4, Delta % (Auto) 12.1 H, Eos % (Auto) [...] for their facility after his d/c from [facility] -PT recommends rehab/snf/tcu -Given mental health [...] [facility]. -He was [facility] there and the symptoms [...] 30 mins Charges/Coding Visit Charges Inpatient E&M: 94036 Subs Hosp L2 01/16/23 1152 <Electronically signed by Nina Wilder MD> Cosigner Signature (if applicable): CC: ~ Signed [facility] Work Phone: 1(450) 992-362704-14-[address] Wilder [facility] January 15, 2023 9:43am Note Date/Time January 15, 2023 9:4 3am [facility] Medical Records Department [facility] [place] [address] Progress Note - Hospitalist 01/15/23 0941 MR#: [id number] Acct: [id number] Name: ANJEL ROSS Rep #:[id number] : 1950 72 From: Nina Wilder MD PCP: NILS CANTOR Status:ADM PAIGE Location: [place] [address] Reason for Visit Reason for Visit: Diagnoses [...] H, RDW Coeff of Ronna 13.2, Plt Ldovv848, MPV 8.4, Immature Gran % (Auto) 1.600 H, Neut % (Auto) 49.3, Lymph % (Auto)34.4, Delta % (Auto) 12.8 H, Eos % (Auto) [...] he [facility]. -He was reviewed there and the symptoms [...] 20 mins Charges/Coding Visit Charges Inpatient E&M: 24657 Subs Hosp L1 01/15/23 0943 <Electronically signed by Nina Wilder MD> Cosigner Signature (if applicable): CC: ~ Signed [facility] Work Phone: 1(470) 597-450604-13-[address] Wilder [facility] January 14, 2023 1:37pm Note Date/Time January 14, 2023 8:3 9am [facility] Medical Records Department [address] [place] [address] Progress Note - Hospitalist 01/14/23 0838 MR#: [id number] Acct: [id number] Name: ANJEL ROSS Rep #:[id number] : 1950 72 From: Nina Wilder MD PCP: NILS CANTOR Status:ADM PAIGE Location: [place] [address] Reason for Visit Reason for Visit: Diagnoses [...] for their facility after [facility] -PT recommends rehab/snf/tcu -Given mental health history [...] he [facility]. -He was reviewed there and the symptoms [...] 20 mins Charges/Coding Visit Charges Inpatient E&M: 65457 Subs Hosp L1 01/14/23 1337 <Electronically signed by Nina Wilder MD> Cosigner Signature (if applicable): CC: ~ Signed [facility] Work Phone: 1(746) 248-269404-12-[address] Wilder [facility] January 13, 2023 9:59am Note Date/Time January 13, 2023 9:5 9am [facility] Medical Records Department [address] [place] [address] Progress Note - Hospitalist 01/13/23 0956 MR#: [id number] Acct: [id number] Name: ANJEL ROSS Rep #:[id number] : 1950 72 From: Nina Wilder MD PCP: NILS CANTOR Status:ADM PAIGE Location: [place] [address] Reason for Visit Reason for Visit: Diagnoses [...] for their facility after his d/c from [facility] -PT recommends rehab/snf/tcu -Given mental health history [...] he had [facility]. -He was reviewed there and the symptoms [...] 30 mins Charges/Coding Visit Charges Inpatient E&M: 11428 Subs Hosp L2 01/13/23 0959 <Electronically signed by Nina Wilder MD> Cosigner Signature (if applicable): CC: ~ Signed [facility] Work Phone: 1(109) 133-423904-11-[address] Wilder [facility] January 12, 2023 8:57am Note Date/Time January 12, 2023 8:5 7am [facility] Medical Records Department [address] [place] [address] Progress Note - Hospitalist 01/12/2353 MR#: [id number] Acct: [id number] Name: ANJEL ROSS Rep #:[id number] : 1950 72 From: Nina Wilder MD PCP: NILS CANTOR Status:ADM PAIGE [id number] Reason for Visit Reason for Visit: Diagnoses [...] % (Auto) 37.3 L, Lymph % (Auto)40.6, Delta % (Auto) 17.9 H, Eos % (Auto) [...] for their facility after his [facility]/c [facility] -PT recommends rehab/snf/tcu -Given mental health [...] #Hx schizophrenia -On olanzapine and venlafaxine #hx KAY per documentation -CPAP qhs ordered #History of ataxia: -there was concern that he had NPH and [facility] -He was reviewed there and the symptoms [...] 30 mins Charges/Coding Visit Charges Inpatient E&M: 43031 Subs Hosp L2 01/12/23 0857 <Electronically signed by Nina Wilder MD> Cosigner Signature (if applicable): CC: ~ Signed [facility] Work Phone: 1([phone]) 770-493404-10-[address] Wilder [facility] January 11, 2023 5:37pm Note Date/Time January 11, 2023 7:2 1am [facility] Medical Records Department [address] [place] [address] Progress Note - Hospitalist 01/11/23 0721 MR#: [id number] Acct: [id number] Name: ANJEL ROSS Rep #:[id number] : 1950 72 From: Nina Wilder MD PCP: NILS CANTOR Status:ADM PAIGE Location: [place] [address] Reason for Visit Reason for Visit: Diagnoses [...] % (Auto) 44.8 L, Lymph % (Auto)35.5, Delta % (Auto) 16.0 H, Eos % (Auto) [...] he had [facility]. -He was reviewed there and the symptoms [...] 30 mins Charges/Coding Visit Charges Inpatient E&M: 76741 [facility] Hosp L2 01/11/23 1730 <Electronically signed by Nina Wilder MD> Cosigner Signature (if applicable): CC: ~ Signed [facility] Work Phone: 1(641) 228-483004-09-2023 History and physical note Author Dr. Recio [facility] January 10, 2023 3:34pm Note Date/Time January 10, 2023 9:22 am [facility] Medical Records Department [address] [place] [address] H&P Exam - Hospitalist 01/10/23 0911 MR#: [id number] Acct: [id number] Name: ANJEL ROSS Rep #:[id number] : 1950 72 From: Kary Recio MD PCP: NILS CANTOR Status:ADM PAIGE Location: [facility] [id number] HPI - General General Date of Admission: [...] valproic acid levels. He was transferred to [facility] where his symptoms were thought to be [...] and generalized weakness and is for placement. [facility] Medical History Anxiety Benign essential HTN [...] DAILY supplement 01/10/23[History Last Taken Unknown] omega 8-hhv-rbe-fish oil 1,000 mg (120 mg-180 mg) capsule [...] Neut % (Auto) 53.9, Lymph % (Auto)25.6, Delta % (Auto) 16.6 H, Eos % (Auto) [...] Clarity Clear, Urine pH 6.0, Ur Specific [place] 1.015, Urine Protein 15 H, Urine Glucose [...] 4:01 EDT Reading Location ID and State: [facility] / [place] , Service support , Assessment & Plan [...] he had NPH and so was transferred [facility] recently. * He was reviewed there and [...] confirmed from documentation he brought from [facility]. * Total yocy-oi-fyrt time 17 minutes. Total time spent on evaluation and management of patient, reviewing chart, discussing plan with patient, discussion with nursing and ancillary staff as well as documentation: 60 mins Charges/Coding Visit Charges Inpatient E&M: 73879 Init Hosp L2 Procedures Hospitalists Procedures: 13604 Advncd Care Plan 30 Min 01/10/23 1534 <Electronically signed by Kary Recio MD> Cosigner Signature (if applicable): CC: Dr. Kary Recio MD; NILS CANTOR~ Signed [facility] Work Phone: 1(576) 286-478204-09-2023 Discharge summary Author Breana Avila [facility] January 10, 2023 9:31am Note Date/Time January 10, 2023 3:30 am [facility] Medical Records Department [address] [place] [address] Emergency Department Summary 01/10/23 MR#: [id number] Acct: [id number] Name: ANJEL ROSS Rep #:[id number] : 1950 72 From: Hilario Malik MD PCP: NILS CANTOR Status:REG ER Location: ED ADDENDUM by Dr. Breana Avila DO on 01/10/23 at 0931 [facility] staff called into the ER to say that they cannot accept patient back to their facility as he is high risk for falls and too weak to go back to their facility it was felt he needed admitted and evaluated for shelter facility placement. Case discussed with hospitalist to [...] in person neurology, he was sent to [facility] they excepted him, they did not think he had NPH but rather that his ataxia was related to his high valproate levels. They recommended he be on valproic acid 1000 mg 3 times daily, and Keppra 1500 mg twice daily for his epilepsy. Apparently he just arrived back to assisted living from [facility] past day. There is no other information available at this time. The patient denies having any focal complaints. He initially thought he was at [facility], but he was redirectable and Tram was his second guess. [facility] Medical History Anxiety Benign essential HTN [...] bismuth subsalicylate 262 mg/15 mL oral suspension (Pe Ell Bismuth) 524 mg PO Q30- 60M PRN [...] PROSTATE 01/04/23 [History Last Taken 01/04/23] vitamins A,C,Z-tmoe-nskoun 2,148 mcg-113 mg-45 mg-17.4 mg tablet (Eye [...] IV fluids while resting here overnight during night manager. His urinalysis is negative for infection [...] a higher level of care like a shelter facility and he states no that he [...] % (Auto) 53.9 Lymph % (Auto) 25.6 Delta % (Auto) 16.6 H Eos % (Auto) [...] Color Urine Clarity Urine pH Ur Specific [place] Urine Protein Urine Glucose (UA) Urine Ketones [...] (Auto) Neut % (Auto) Lymph % (Auto) Delta % (Auto) Eos % (Auto) Baso % (Auto) Absolute Neuts (auto) Absolute Lymphs (auto) Nucleated RBC % Macrocytosis Sodium Potassium Chloride Carbon Dioxide Anion Gap BUN Creatinine Estim Creat Clear Calc Est GFR (MDRD) Af Amer Est GFR (MDRD) Non-Af BUN/Creatinine Ratio Glucose Calcium Troponin I High Sens Urine Color Yellow Urine Clarity Clear Urine pH 6.0 Ur Specific [place] 1.015 Urine Protein 15 H Urine Glucose [...] capsule 10 mg PO QHS bismuth subsalicylate [Pe Ell Bismuth] 262 mg/15 mL suspension 524 mg [...] offered higher level of care such as shelter, and he declined/refuses. Ambulatory in ED with a walker at baseline. Disposition Disposition: Home, Self Care What to do if you have Problems For any increased pain, shortness of breath, bleeding, nausea or vomiting, chestpain, or any unexpected problems, contact your Primary Care Provider. Call [facility] ([phone]) or report to the closest Emergency Room. Call 911 if necessary. 01/10/23 0711 <Electronically signed by Hilario Malik MD> Cosigner Signature (if applicable): CC: NILS CANTOR ~ Signed [facility] Work Phone: 1(312) 939-476204-09-2023 Discharge summary Author Breana Avila [facility] January 10, 2023 9:31am Note Date/Time January 10, 2023 3:30 am [facility] Medical Records Department [address] [place] [address] Emergency Department Summary 01/10/23 MR#: [id number] Acct: [id number] Name: ANJEL ROSS Rep #:[id number] : 1950 72 From: Hilario Malik MD PCP: NILS CANTOR Status:REG ER Location: ED ADDENDUM by Dr. Breana Avila DO on 01/10/23 at 0931 [facility] staff called into the ER to say that they cannot accept patient back to their facility as he is high risk for falls and too weak to go back to their facility it was felt he needed admitted and evaluated for shelter facility placement. Case discussed with hospitalist to [...] in person neurology, he was sent to [facility] they excepted him, they did not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 Becka Hines GOLF COACH, GOLF COACH-C Family Provider Active No Primary Care Physician Primary Care Provider Active Team Status: Inactive Member Role Status Dates Becka Hines GOLF COACH, GOLF COACH-C Primary Care Provider Act ashish Dr. Donovan Skaggs MD Attending Provider, Emergency Provi tsering Active Team Status: Inactive Member Role Status Dates Dr. Tate Sherman MD Emergency Provider Active No Primary Care Physician Primary Care Provider Active Team Status: Active Member Role Status Dates Becka Hines GOLF COACH, GOLF COACH-C Family Provider Active Dr. Maddie MACIEL, DO [...] Active Member Role Status Dates Becka Hines GOLF COACH, GOLF COACH-C Family Provider Active [facility] Primary Care [...] Dr. Hilario Malik MD Emergency Provider Active [facility] [place] Primary Care Provider Active Dr. Kary Recio MD Admit Provider, Attending Prov ider Active Team Status: Active Member Role Status Dates Dr. Hilario Malik MD Emergency Provider Active [facility] Primary Care Provider Active Dr. Kary Recio MD Admit Provider, Other Provider Active Dr. Nina Wilder MD Attending Provider, Other Provid er Active Team Status: Active Member Role Status Dates Dr. Hilario Malik MD Emergency Provider Active [facility] [place] Primary Care Provider Active Dr. Kary Recio MD Admit Provider, Attending Provider, Other Provider Active Dr. Nina Wilder MD Other Provider Active Team Status: Inactive Member Role Status Dates Dr. Hilario Malik MD Emergency Provider Active [facility] Primary Care Provider Active Dr. Kary Recio MD Admit Provider, Attending Provider, Other Provider Active Dr. Nina Wilder MD Other Provider Active Team Status: Active Member Role Status Dates Becka Hines GOLF COACH, GOLF COACH-C Family Provider Active [facility] Primary Care Provider Active Team Status: Inactive Member Role Status Dates Out of [facility] Primary Care Provider Active [facility] Attending Provider Acti ve Team Status: Inactive Member Role Status Dates Out of [facility] Doctor Primary Care Provider Active Dr. Avani MACIEL MD Attending Provider Active Team Status: Active Member Role Status Dates Out of [facility] Doctor Primary Care Provider Active Dr. Avani MACIEL MD Attending Provider Active Team Status: Inactive Member Role Status Dates Out of [facility] Doctor Primary Care Provider Active Dr. Avani MACIEL MD Attending Provider, Referring Provider Active Team Status: Active Member Role Status Dates Becka Hines GOLF COACH, GOLF COACH-C Family Provider Active Dr. Avani Eduardo MD Primary Care Provider Active Team Status: Inactive Member Role Status Dates Out [facility] Doctor Primary Care Provider Active Start: September [...] Provider Active S tart: February 13, 2025 Team Status: Active Member Role/Relationship Status Dates Dr. Avani Eduardo MD Primary Care Provider Active Team Status: Inactive Member Role/Relationship Status Dates Dr. Avani Eduardo MD Primary Care Provider Active Start: January 31, 2025 End: January 31, 2025 Dr. Avani Eduardo MD Referring Provider Active Start: January 31, 2025 End: January 31, 2025 [facility] Attending Provider Active Star t: January 31, 2025 End: January 31, 2025 Team Status: Inactive Member Role/Relationship Status Dates Dr. Avani Eduardo MD Primary Care Provider Active Start: February 01, 2025 End: February 01, 2025 Dr. Avani MACIEL MD Attending Provider Active Start: February 01, 2025 End: February 01, 2025 Team Status: Inactive Member Role/Relationship Status Dates Dr. Avani Eduardo MD Primary Care Provider Active Start: February 13, 2025 End: February 13, 2025 [facility] Attending Provider Active Star t: February 13, 2025 End: February 13, 2025 [facility] Referring Provider Active Star t: February 13, 2025 End: February 13, 2025 Team Status: Active Member Role/Relationship Status Dates Dr. Avani Eduardo MD Primary Care Provider Active Start: February 13, 2025 Dr. Eris Capps MD Attending Provider Active S tart: February 13, 2025 [facility] Referring Provider Active Star t: February 13, 2025 Team Status: Active Member Role/Relationship Status Dates Dr. Avani Eduardo MD Primary Care Provider Active Start: February 28, 2025 Dr. Avani MACIEL MD Attending Provider Active Start: February 28, 2025 Team Status: Active Member Role/Relationship Status Dates Dr. Avani Eduardo MD Primary Care Provider Active Start: April 03, 2025 Dr. Avani MACIEL MD Attending Provider Active Start: April 03, 2025 Team Status: Active Member Role/Relationship Status Dates Dr. Avani Eduardo MD Primary Care Provider Active Start: April 24, 2025 Dr. Avani MACIEL MD Attending Provider Active Start: April 24, 2025 Dr. Avani MACIEL MD Referring Provider Active Start: April 24, 2025 Team Status: Active Member Role/Relationship Status Dates Dr. Avani Eduardo MD Primary Care Provider Active Start: May 01, 2025 Dr. Avani MACIEL MD Attending Provider Active Start: May 01, 2025 Team Status: Inactive Member Role/Relationship Status Dates Dr. Avani Eduardo MD Primary Care Provider Active Start: May 08, 2025 End: May 08, 2025 Dr. Avani MACIEL MD Attending Provider Active Start: May 08, 2025 End: May 08, 2025 Dr. Avani MACIEL MD Referring Provider Active Start: May 08, 2025 End: May 08, 2025 Goals (unrecognized section and content) Goals [...] BE BASED ON THE PRIMARY CLINICAL RECORDS. [facility] [email or web address] [facility]. provides no warranty or guarantee of the accuracy or completeness of information in this document.
[2025-06-01 02:07] LABS: KEPPRA (LEVETIRACETAM) 51.2 ug/mL (10.0-40.0)
== END ==
LOC: OLS.SW 05:00
PROVIDERS: PCP Internal Medicine; Visit Provider Internal Medicine
DX: E11.9 Type 2 diabetes mellitus without complications (principal); I10 Essential (primary) hypertension
CPT/HCPCS: 36415; 80177; 83036; 84443

== ENCOUNTER → 2025-06-05 05:00 | Outpatient (REF) | payer MEDICARE, MEDICAID, SELFPAY ==
[2025-06-08 04:07] LABS: KEPPRA (LEVETIRACETAM) 46.4 ug/mL (10.0-40.0)
== END ==
LOC: OLS.SW 05:00
PROVIDERS: PCP Internal Medicine; Visit Provider Internal Medicine
DX: Z79.899 Other long term (current) drug therapy (principal)
CPT/HCPCS: 36415; 80177

== ENCOUNTER → 2025-06-12 05:00 | Outpatient (REF) | payer MEDICARE, MEDICAID, SELFPAY ==
--- OUTSIDE RECORDS SUMMARY | 2025-06-12 04:01 | XMS RPT_ITS | CCD ---
Author Organization [facility] Care Team Providers Care Rehabilitation Caseworker Name Role Phone MEG JOE Unavailable Unavailable [...] Provider U Dr. Hilario Conrad Emergency Provider [phone] Dr. Carrie Hooper Admit Provider Dr. Carrie [...] Other Provider Dr. Kary Recio Attending Provider [phone] STANTON ANDREWS Attending Unavailable STANTON ANDREWS Attending Unavailable STANTON ANDREWS Attending Unavailable STANTON ANDREWS Attending Unavailable Town Doctor, Out of Primary Care Provider Papa Eduardo MD, Dr. Varma Attending Provider Unavailsherie Eduardo MD, Dr. Varma Primary Care Provider UnaKourtney Rob Attending Provider Jayce MUNOZ, Dr. Varma Referring Provider Unavailsherie Eduardo MD, Dr. Varma Primary Care Provider Surjit Eduardo MD, Dr. Varma Attending Provider UnavailKourtney Antonio Referring Provider [phone] Génesis MUNOZ, Dr. Schulte Attending Provider [phone] Jayce MUNOZ, Dr. Varma Primary Care Provider Surjit Eduardo MD, Dr. Varma Referring Provider UnavailKourtney Antonio Attending Provider [phone] Avani dEuardo MD Attending Provider Unavailsherie Eduardo MD, Dr. Varma Referring Provider Unavaila ble Avani Subramanian Attending Unavailable Gudla, Avani Primary Care Unavailable Gudla, Avani Primary Care Unavailable Gudla Noemi MACIELyothi Attending Unavailable Gudla Noemi MACIELyothi Attending Unavailable Town Doctor, Out of Primary Care Unavailable Gudla Noemi MACIELyothi Attending Unavailable Gudla, Avani Primary Care Unavailable Gudla, Avani Primary Care Unavailable Gudla Noemi MACIELyothi Attending Unavailable Gudla OLS Avani Referring Unavailable Gudla Noemi MACIELyothi Attending Unavailable Town Doctor, Out of Primary Care Unavailable Gudla Avani MACIEL Attending Unavailable Town Doctor, Out of Primary Care Unavailable Kourtney Farrar Attending Unavailable Kourtney Farrar Referring Unavailable Gudla, Avani Primary Care Unavailable Gudla Ethan MACIELthi Attending Unavailable Gudla, Avani Primary Care Unavailable Gudla Noemi MACIELyothi Attending Unavailable Gudla, Avani Primary Care Unavailable Gudla, Avani Primary Care Unavailable Gudla OLS, Avani Attending Unavailable Gudla OLS, Avani Attending Unavailable [facility] Doctor, Out of Primary Care Unavailable Gudla OLS, Avani Attending Unavailable Gudla, Avani Primary Care Unavailable Gudla OLS, Avani Attending Unavailable Gudla, Avani Primary Care Unavailable Gudla OLS, Avani Attending Unavailable Gudla, Avani Primary Care Unavailable Gudla OLS, Avani Attending Unavailable Gudla, Avani Primary Care Unavailable Farrar, Kourtney Attending Unavailable Gudla, Avani Referring Unavailable Gudla, Avani Primary Care Unavailable Farrar, Kourtney Attending Unavailable Gudla, Avani Referring Unavailable Gudla, Avani Primary Care Unavailable Farrar, Kourtney Referring Unavailable Gudla, Avani Primary Care Unavailable Eris Capps Attending Unavailable Gudla OLS, Avani Referring Unavailable Gudla, Avani Primary Care Unavailable Gudla OLS, Avani Attending Unavailable Gudla, Avani Primary Care Unavailable Gudla OLS, Avani Attending Unavailable Allergies Allergy Classification Reported Allergen(s) Allergy Type Date of Onset Reaction(s) Facility (20 sources) nickel; Translations: [NICKEL] Drug Allergy 3 Rash [facility] Repository (20 sources) OXcarbazepine; Translations: [[facility]BAZEPINE] [facility] salicylic acid; Translations: [SALICYLATES] Drug Allergy 5 [facility] Repository (20 sources) [facility]ir[facility] Allergy 5 [facility] Repository Medications Current Medications Medication Drug [...] by mouth once daily at lunch Vitamins A,C,Y-Lvms-Ctnksu (Eye Multivitamin) 2,148 mcg-113 mg-45 mg-17.4mg Tablet [...] (5 sources) Bismuth Start: 07-15-2020 Bismuth Subsalicylate ([place] Bismuth) 262 mg/15 mL suspension Active 524 [...] Start: 07-11-2019 take 2000 [IU] by mo [facility] at bedtime Cholecalciferol (Vitamin D3) Active 2000 [...] Take 1 tablet by heather once daily. 12 hr guaiFENesin 600 mg [...] MG tablet Discontinued 250 mg PO DAILY 90 August 31, 2019 1:00am July 15, 2020 [...] on above: Take 2 tablets by mo [facility] twice daily. 2 TABLETS (1,500MG) BY MOUTH [...] by mouth once daily. polyethylene glycol 3350 79403 mg powder for oral solution (5 sources) [...] mg PO THREE TIMES A DAY 9 January 18, 2023 5:12pm take 1 capsule [...] tablet by heather three times daily. sennosides, retirement 8.6 mg oral capsule (5 sources) Start: [...] on above: Take 1 tablet by heather every other day. Take 50 mg by mouth every 48 hours. alternating with 25 mg tablets tamsulosin hydrochloride 0.4 mg oral capsule (4 sources) alpha-Adrenergic Ramon Start: 5 take 1 capsule by mouth once daily [...] Comment on above: Take 2 tablets by [facility] three times daily. Take 20 mL by mouth three times daily. 24 hr venlafaxine 150 mg extended release oral capsule (20 sources) Serotonin and Norepinephrine Reuptake Inhibitor Start: 07-11-20 End: 07-15-20 take 1 capsule by mouth once daily Venlafaxine 150 mg capsule,extended release 24hr Active 150 mg PO DAILY July 15, 2020 2:04pm DEPRESSION Comment on above: Take 1 capsule by [facility] once daily. Take Effexor XR 150 [...] Comment on above: Take 400 Units by [facility] every other day. Once capsule by [...] 11:28am SUPPLEMENT take 1 tablet by heather th once [...] Comment on above: Take 1 tablet by [facility] daily with food. furosemide 80 mg oral [...] 17, 2019 1:16pm omega-3 acid ethyl esters (retirement) 1000 mg oral capsule (16 sources) Start: 01-10-2023 End: 11-01-2024 Jesup 4-Cgd-Had-Fish Oil 1,0 00 mg (120 mg-180 mg) Capsule Discontinued 1 NMA PO TWICE A DAY January 10, 2023 12:00am November 01, 2024 11:35am Start: 01-10-2023 take 1 capsule by [facility] twice daily Jesup 5-Kls-Qfs-Fish Oil Active 1 CAP PO TWICE A DAY January 10, 2023 12:00am Jesup-3 Fatty Acids-Fish Oil (18 sources) Start: 07-11-2019 End: 07-15-2020 take 2 capsules by mouth twice daily Jesup-3 Fatty Acids-Fish Oil Discontinued 2 CAP PO TWICE A DAY July 10, 2019 11:00pm July 15, 2020 1:09pm Start: 07-11-2019 End: 07-15-2020 take 2 capsules by mouth twice daily Jesup-3 Fatty Acids-Fish Oil Discontinued 2 CAP PO TWICE A DAY July 11, 2019 12:00am July 15, 2020 2:09pm Jesup-3 Fatty Acids-Fish Oil 1 EACH capsule (3 sources) Start: 07-11-2019 End: 07-15-2020 Jesup-3 Fatty Acids-Fish Oil 1 EACH capsule Discontinued 2 NMA PO TWICE A DAY July 11, 2019 12:00am July 15, 2020 2:09pm SUPPLEMENT Start: 07-11-2019 End: 07-15-2020 Jesup-3 Fatty Acids-Fish Oil 1 EACH capsule Discontinued 2 NMA PO TWICE A DAY July 11, 2019 12:00am July 15, 2020 2:09pm Ubvmu-1-DMS-EPA-Fish Oil (FISH OIL) 1,000 mg (120 mg-180 mg) cap (5 sources) take 1 capsule by mouth twice daily Uivbu-7-AGL-EPA-Fish Oil (FISH OIL) 1,000 mg (120 mg-180 mg) cap Take one capsule by mouth twice daily. 0 Active Comment on above: Take one capsule by mouth twice daily. Eljaj-2-PVL-EPA-Fish Oil 1,000 mg (120 mg-180 mg) cap (2 sources) take 1 capsule by mouth twice daily Bdzrd-3-HXJ-EPA-Fish Oil 1,000 mg (120 mg-180 mg) cap [...] 03-22-2020 Chronic Other aftercare (2 sources) Other correction (current) drug therapy; Translations: [Other correction (current) drug therapy] Onset: 05-16-2025 Episodic Other [...] Test Name Value Interpretation Reference Range Facility KEPPRA (LEVETIRACETAM)on KEPPRA 46.4 ug/mL Abnormal 10.0-40.0 [facility] Comment on above: Order Comment: 304-2 Result Comment: Perf ormed at: - [facility] [address] [id number] [employer] Consultant: Jess Bess MD, Phone: [phone] Performed By: #### L 232.4550 #### [facility] [address] [place], [place], [address] KEPPRA (LEVETIRACETAM)on KEPPRA 51.2 ug/mL Abnormal 10.0-40.0 [facility] Comment on above: Order Comment: 304-2 Result Comment: Perf ormed at: - [facility] [id number] [employer] Consultant: Jess Bess MD, Phone: [phone] Performed By: #### L 501.5200, L100.0500, L500.2500 #### [facility] [address] [place], [address] Hemoglobin A1con 05-29-2025 HbA1c (Bld) [Mass fraction] 7.8 % High <=5.6 [facility] Comment on above: Order Comment: 304-2 Result Comment: Norm al < 5.7 % Prediabetic 5.7 - 6.4 % Diabetic >or= 6.5 % Please note range changes. Performed By: #### L 501.5200, L100.0500, L500.2500 #### [facility] [address] [place], [address] Thyroid Stim Hormone (TSH)on 05-29-2025 TSH 6.000 uIU/mL High 0.300-4.20 0 [facility] Comment on above: Order Comment: 304-2 Performed By: #### L 501.5200, L100.0500, L500.2500 #### [facility] [address] [place], [address] Anion gap in Serum or Plasma Ordered By: Avani Eduardo on 05-08-2025 Anion gap [Moles/Vol] 13 mmol/L 5-15 [facility] Automated blood erythrocyte countOrdered By: Avani Eduardo on 05-08-2025 RBC (Bld) [#/Vol] 4.10 10*6/uL Low 4.6-6.2 [facility] Comment on above: Order Comment: 304-2 Performed By: #### L 501.5200, L100.0500, L500.2500 #### [facility] [address] [place], [address] Automated blood hematocrit ( percentage)Ordered By: Avani Eduardo on 05-08-2025 Hematocrit (Bld) [Volume fraction] 39.1 % Low 40-54 [facility] Comment on above: Order Comment: 304-2 Performed By: #### L 501.5200, L100.0500, L500.2500 #### [facility] [address] [place], [address] BUN/creatinine ratioOrdered By: Avani Eduardo on 05-08-2025 Urea nitrogen/Creatinine [Mass ratio] 16.3 mg/mg - [facility] Basic Metabolic Profile (BMP )on 05-08-2025 BUN/CRE 16.3 RATIO Normal 07-23 [facility] Comment on above: Order Comment: 304-2 Performed By: #### L 501.5200, L100.0500, L500.2500 #### [facility] [address] [place], [address] Calcium [Mass/Vol] 9.0 mg/dL Normal 7.6-11.0 [facility] Comment on above: Order Comment: 304-2 Performed By: #### L 501.5200, L100.0500, L500.2500 #### [facility] [address] [place], [address] Chloride [Moles/Vol] 100 mmol/L Normal 98-108 [facility] Comment on above: Order Comment: 304-2 Performed By: #### L 501.5200, L100.0500, L500.2500 #### [facility] [address] [place], [address] CO2 [Moles/Vol] 26.3 mmol/L Normal 21.0-32.0 [facility] Comment on above: Order Comment: 304-2 Performed By: #### L 501.5200, L100.0500, L500.2500 #### [facility] [address] [place], [address] Creatinine [Mass/Vol] 0.57 mg/dL Low 0.70-1.20 [facility] Comment on above: Order Comment: 304-2 Performed By: #### L 501.5200, L100.0500, L500.2500 #### [facility] [address] [place], [address] GAP 13 Normal 5-15 [facility] Comment on above: Order Comment: 304-2 Performed By: #### L 501.5200, L100.0500, L500.2500 #### [facility] [address] [place], [address] GFR/1.73 sq M.predicted among non-blacks MDRD (S/P/Bld) [Vol rate/Area] 102 mL/min/{1.73_m2} Normal >60 [facility] Comment on above: Order Comment: 304-2 Result Comment: mL/m in/1.73m2 CKD-EPI Creatinine Equation (2020) Performed By: #### L 501.5200, L100.0500, L500.2500 #### [facility] [address] [place], [address] Glucose [Mass/Vol] 140 mg/dL High 70-99 [facility] Comment on above: Order Comment: 304-2 Performed By: #### L 501.5200, L100.0500, L500.2500 #### [facility] [address] [place], [address] Potassium [Moles/Vol] 3.5 mmol/L Normal 3.3-5.1 [facility] Comment on above: Order Comment: 304-2 Performed By: #### L 501.5200, L100.0500, L500.2500 #### [facility] [address] [place], [address] Sodium [Moles/Vol] 139 mmol/L Normal 133-145 [facility] Comment on above: Order Comment: 304-2 Performed By: #### L 501.5200, L100.0500, L500.2500 #### [facility] [address] [place], [address] Urea nitrogen [Mass/Vol] 9 mg/dL Normal 4-19 [facility] Comment on above: Order Comment: 304-2 Performed By: #### L 501.5200, L100.0500, L500.2500 #### [facility] [address] [place], [address] CBC-Complete Blood Cnt No Di ffon 05-08-2025 RDW SD 47.3 fl High 35.1-43.9 [facility] Comment on above: Order Comment: 304-2 Performed By: #### L 501.5200, L100.0500, L500.2500 #### [facility] [address] [place], [address] Carbon dioxide, total [Moles /volume] in Central venous bloodOrdered By: Avani Eduardo on 05-08-2025 CO2 [Moles/Vol] 26.3 mmol/L 21.0-32.0 [facility] Chloride assayOrdered By: Adriel Eduardo on 05-08-2025 Chloride [Moles/Vol] 100 mmol/L 98-108 [facility] Erythrocyte distribution wid th ratioOrdered By: Avani Eduardo on 05-08-2025 Erythrocyte distribution width (RBC) [Ratio] 13.4 % Normal 11.6-14.6 [facility] Comment on above: Order Comment: 304-2 Performed By: #### L 501.5200, L100.0500, L500.2500 #### [facility] [address] [place], [address] Erythrocyte distribution wid th standard deviationOrdered By: Avani Eduardo on 05-08-2025 Erythrocyte distribution width (RBC) [Ratio] 47.3 fl High 35.1-43.9 [facility] Glomerular filtration rate ( GFR) estimation/1.73 sq m using serum, plasma, or whole bOrdered By: Avani Eduardo on 05-08-2025 GFR/1.73 sq M.predicted among non-blacks MDRD (S/P/Bld) [Vol rate/Area] 102 mL/min/{1.73_m2} >60 [facility] Comment on above: mL/min/1.73m2 CKD-EP I Creatinine Equation (2020) Hemoglobin measurementOrdere d By: Avani Eduardo on 05-08-2025 Hemoglobin (Bld) [Mass/Vol] 13.3 g/dL Normal 13.0-16.5 [facility] Comment on above: Order Comment: 304-2 Performed By: #### L 501.5200, L100.0500, L500.2500 #### [facility] [address] [place], [address] MCV (mean corpuscular volume ) determinationOrdered By: Avani Eduardo on 05-08-2025 MCV (RBC) [Entitic vol] 95.4 fL High 80-94 [facility] Comment on above: Order Comment: 304-2 Performed By: #### L 501.5200, L100.0500, L500.2500 #### [facility] [address] [place], [address] Magnesiumon 05-08-2025 Magnesium [Mass/Vol] 2.1 mg/dL Normal 1.5-2.2 [facility] Comment on above: Order Comment: 304-2 Performed By: #### L 501.5200, L100.0500, L500.2500 #### [facility] [address] [place], [address] Magnesium measurement (mass/ volume)Ordered By: Avani Eduardo on 05-08-2025 Magnesium (Unsp spec) [Mass/Vol] 2.1 mg/dL 1.5-2.2 [facility] Mean corpuscular hemoglobin (MCH) determinationOrdered By: Avani Eduardo on 05-08-2025 MCH (RBC) [Entitic mass] 32.4 pg High 27.0-32.0 [facility] Comment on above: Order Comment: 304-2 Performed By: #### L 501.5200, L100.0500, L500.2500 #### [facility] [address] [place], [address] Mean corpuscular hemoglobin concentration (MCHC) determinationOrdered By: Avani Eduardo on 05-08-2025 MCHC (RBC) [Mass/Vol] 34.0 g/dL Normal 32-36 [facility] Comment on above: Order Comment: 304-2 Performed By: #### L 501.5200, L100.0500, L500.2500 #### [facility] [address] [place], [address] Mean platelet volume determi nationOrdered By: Avani Eduardo on 05-08-2025 Platelet mean volume (Bld) [Entitic vol] 9.3 fL Normal 6.2-12.0 [facility] Comment on above: Order Comment: 304-2 Performed By: #### L 501.5200, L100.0500, L500.2500 #### [facility] [address] [place], [address] Platelet countOrdered By: Adriel Eduardo on 05-08-2025 Platelets (Bld) [#/Vol] 197 10*3/uL Normal 150-450 [facility] Comment on above: Order Comment: 304-2 Performed By: #### L 501.5200, L100.0500, L500.2500 #### [facility] [address] [place], [address] Potassium measurement (mass/ volume)Ordered By: Avani Eduardo on 05-08-2025 Potassium (Unsp spec) [Mass/Vol] 3.5 mmol/L 3.3-5.1 [facility] Serum creatinine measurement (mass/volume)Ordered By: Avani Eduardo on 05-08-2025 Creatinine [Mass/Vol] 0.57 mg/dL Low 0.70-1.20 [facility] Serum glucose measurement (m ass/volume)Ordered By: Avani Eduardo on 05-08-2025 Glucose [Mass/Vol] 140 mg/dL High 70-99 [facility] Serum or plasma calcium minda urement (mass/volume)Ordered By: Avani Eduardo on 05-08-2025 Calcium [Mass/Vol] 9.0 mg/dL 7.6-11.0 [facility] Serum or plasma urea nitroge n measurement (mass/volume)Ordered By: Avani Eduardo on 05-08-2025 Urea nitrogen [Mass/Vol] 9 mg/dL 4-19 [facility] Sodium levelOrdered By: Emmanuel Eduardo on 05-08-2025 Sodium [Moles/Vol] 139 mmol/L 133-145 [facility] White blood cell (WBC) count Ordered By: Avani Eduardo on 05-08-2025 WBC (Bld) [#/Vol] 6.9 10*3/uL Normal 4.4-11.0 [facility] Comment on above: Order Comment: 304-2 Performed By: #### L 501.5200, L100.0500, L500.2500 #### [facility] [address] [facility] [place], [place], [id number] TSH DL <= 0.005 mIU/L QnOrde red By: Avani Eduardo on 05-01-2025 TSH Qn 5.000 uIU/mL High 0.300-4.20 0 [facility] Thyroid Stim Hormone (TSH)on 05-01-2025 TSH 5.000 uIU/mL High 0.300-4.20 0 [facility] Comment on above: Performed By: #### L 501.9985 #### [facility] [address] [facility] [place], [place], [id number] Anion gap in Serum or Plasma Ordered By: Avani Eduardo on 04-24-2025 Anion gap [Moles/Vol] 12 mmol/L 5-15 [facility] BUN/creatinine ratioOrdered By: Avani Eduarod on 04-24-2025 Urea nitrogen/Creatinine [Mass ratio] 20.2 mg/mg High - [facility] Basic Metabolic Profile (BMP )on 04-24-2025 BUN/CRE 20.2 RATIO High - [facility] Comment on above: Order Comment: 304-2 Performed By: #### L 501.5200, L100.0500, L500.2500 #### [facility] [address] [place], [address] Calcium [Mass/Vol] 9.1 mg/dL Normal 7.6-11.0 [facility] Comment on above: Order Comment: 304-2 Performed By: #### L 501.5200, L100.0500, L500.2500 #### [facility] [address] [place], [address] Chloride [Moles/Vol] 96 mmol/L Low 98-108 [facility] Comment on above: Order Comment: 304-2 Performed By: #### L 501.5200, L100.0500, L500.2500 #### [facility] [address] [place], [address] CO2 [Moles/Vol] 29.3 mmol/L Normal 21.0-32.0 [facility] Comment on above: Order Comment: 304-2 Performed By: #### L 501.5200, L100.0500, L500.2500 #### [facility] [address] [place], [address] Creatinine [Mass/Vol] 0.76 mg/dL Normal 0.70-1.20 [facility] Comment on above: Order Comment: 304-2 Performed By: #### L 501.5200, L100.0500, L500.2500 #### [facility] [address] [place], [address] GAP 12 Normal 5-15 [facility] Comment on above: Order Comment: 304-2 Performed By: #### L 501.5200, L100.0500, L500.2500 #### [facility] [address] [place], [address] GFR/1.73 sq M.predicted among non-blacks MDRD (S/P/Bld) [Vol rate/Area] 94 mL/min/{1.73_m2} Normal >60 [facility] Comment on above: Order Comment: 304-2 Result Comment: mL/m in/1.73m2 CKD-EPI Creatinine Equation (2020) Performed By: #### L 501.5200, L100.0500, L500.2500 #### [facility] [address] [place], [address] Glucose [Mass/Vol] 147 mg/dL High 70-99 [facility] Comment on above: Order Comment: 304-2 Performed By: #### L 501.5200, L100.0500, L500.2500 #### [facility] [address] [place], [address] Potassium [Moles/Vol] 3.8 mmol/L Normal 3.3-5.1 [facility] Comment on above: Order Comment: 304-2 Performed By: #### L 501.5200, L100.0500, L500.2500 #### [facility] [address] [place], [address] Sodium [Moles/Vol] 138 mmol/L Normal 133-145 [facility] Comment on above: Order Comment: 304-2 Performed By: #### L 501.5200, L100.0500, L500.2500 #### [facility] [address] [place], [address] Urea nitrogen [Mass/Vol] 15 mg/dL Normal 4-19 [facility] Comment on above: Order Comment: 304-2 Performed By: #### L 501.5200, L100.0500, L500.2500 #### [facility] [address] [place], [place], [id number] Carbon dioxide, total [Moles /volume] in Central venous bloodOrdered By: Avani Eduardo on 04-24-2025 CO2 [Moles/Vol] 29.3 mmol/L 21.0-32.0 [facility] Chloride assayOrdered By: Adriel Eduardo on 04-24-2025 Chloride [Moles/Vol] 96 mmol/L Low 98-108 [facility] Glomerular filtration rate ( GFR) estimation/1.73 sq m using serum, plasma, or whole bOrdered By: Avani Eduardo on 04-24-2025 GFR/1.73 sq M.predicted among non-blacks MDRD (S/P/Bld) [Vol rate/Area] 94 mL/min/{1.73_m2} >60 [facility] Comment on above: mL/min/1.73m2 CKD-EP I Creatinine Equation (2020) Magnesiumon 04-24-2025 Magnesium [Mass/Vol] 2.3 mg/dL High 1.5-2.2 [facility] Comment on above: Order Comment: 304-2 Performed By: #### L 501.5200, L100.0500, L500.2500 #### [facility] [address] [place], [place], [address] Magnesium measurement (mass/ volume)Ordered By: Avani Eduardo on 04-24-2025 Magnesium (Unsp spec) [Mass/Vol] 2.3 mg/dL High 1.5-2.2 [facility] Potassium measurement (mass/ volume)Ordered By: Avani Eduardo on 04-24-2025 Potassium (Unsp spec) [Mass/Vol] 3.8 mmol/L 3.3-5.1 [facility] Serum creatinine measurement (mass/volume)Ordered By: Avani Eduardo on 04-24-2025 Creatinine [Mass/Vol] 0.76 mg/dL 0.70-1.20 [facility] Serum glucose measurement (m ass/volume)Ordered By: Avnai Eduardo on 04-24-2025 Glucose [Mass/Vol] 147 mg/dL High 70-99 [facility] Serum or plasma calcium minda urement (mass/volume)Ordered By: Avani Eduardo on 04-24-2025 Calcium [Mass/Vol] 9.1 mg/dL 7.6-11.0 [facility] Serum or plasma urea nitroge n measurement (mass/volume)Ordered By: Avani Eduardo on 04-24-2025 Urea nitrogen [Mass/Vol] 15 mg/dL 4-19 [facility] Sodium levelOrdered By: Emmanuel Eduardo on 04-24-2025 Sodium [Moles/Vol] 138 mmol/L 133-145 [facility] Anion gap in Serum or Plasma Ordered By: Avani Eduardo on 04-03-2025 Anion gap [Moles/Vol] 17 mmol/L High 5-15 [facility] BUN/creatinine ratioOrdered By: Avani Eduardo on 04-03-2025 Urea nitrogen/Creatinine [Mass ratio] 14.2 mg/mg 10- [facility] Basic Metabolic Profile (BMP )on 04-03-2025 BUN/CRE 14.2 RATIO Normal - [facility] Comment on above: Order Comment: 304-2 Performed By: #### L 501.5200, L100.0500, L500.2500 #### [facility] [address] [place], [address] Calcium [Mass/Vol] 9.8 mg/dL Normal 7.6-11.0 [facility] Comment on above: Order Comment: 304-2 Performed By: #### L 501.5200, L100.0500, L500.2500 #### [facility] [address] [place], [address] Chloride [Moles/Vol] 96 mmol/L Low 98-108 [facility] Comment on above: Order Comment: 304-2 Performed By: #### L 501.5200, L100.0500, L500.2500 #### [facility] [address] [place], [address] CO2 [Moles/Vol] 24.9 mmol/L Normal 21.0-32.0 [facility] Comment on above: Order Comment: 304-2 Performed By: #### L 501.5200, L100.0500, L500.2500 #### [facility] [address] [place], [address] Creatinine [Mass/Vol] 0.84 mg/dL Normal 0.70-1.20 [facility] Comment on above: Order Comment: 304-2 Performed By: #### L 501.5200, L100.0500, L500.2500 #### [facility] [address] [place], [address] GAP 17 High 5-15 [facility] Comment on above: Order Comment: 304-2 Performed By: #### L 501.5200, L100.0500, L500.2500 #### [facility] [address] [place], [address] GFR/1.73 sq M.predicted among non-blacks MDRD (S/P/Bld) [Vol rate/Area] 91 mL/min/{1.73_m2} Normal >60 [facility] Comment on above: Order Comment: 304-2 Result Comment: mL/m in/1.73m2 CKD-EPI Creatinine Equation (2020) Performed By: #### L 501.5200, L100.0500, L500.2500 #### [facility] [address] [place], [address] Glucose [Mass/Vol] 229 mg/dL High 70-99 [facility] Comment on above: Order Comment: 304-2 Performed By: #### L 501.5200, L100.0500, L500.2500 #### [facility] [address] [place], [address] Potassium [Moles/Vol] 4.2 mmol/L Normal 3.3-5.1 [facility] Comment on above: Order Comment: 304-2 Result Comment: Hemo lysis present, Results??could be affected. ?? Performed By: #### L 501.5200, L100.0500, L500.2500 #### [facility] [address] [place], [address] Sodium [Moles/Vol] 137 mmol/L Normal 133-145 [facility] Comment on above: Order Comment: 304-2 Performed By: #### L 501.5200, L100.0500, L500.2500 #### [facility] [address] [place], [address] Urea nitrogen [Mass/Vol] 12 mg/dL Normal 4-19 [facility] Comment on above: Order Comment: 304-2 Performed By: #### L 501.5200, L100.0500, L500.2500 #### [facility] [address] [place], [address] CBC-Complete Blood Cnt No Di ffon 04-03-2025 Erythrocyte distribution width (RBC) [Ratio] 13.8 % Normal 11.6-14.6 [facility] Comment on above: Order Comment: 304-2 Performed By: #### L 501.5200, L100.0500, L500.2500 #### [facility] [address] [place], [address] Hematocrit (Bld) [Volume fraction] 44.7 % Normal 40-54 [facility] Comment on above: Order Comment: 304-2 Performed By: #### L 501.5200, L100.0500, L500.2500 #### [facility] [address] [place], [address] Hemoglobin (Bld) [Mass/Vol] 15.1 g/dL Normal 13.0-16.5 [facility] Comment on above: Order Comment: 304-2 Performed By: #### L 501.5200, L100.0500, L500.2500 #### [facility] [address] [place], [address] MCH (RBC) [Entitic mass] 32.4 pg High 27.0-32.0 [facility] Comment on above: Order Comment: 304-2 Performed By: #### L 501.5200, L100.0500, L500.2500 #### [facility] [address] [place], [address] MCHC (RBC) [Mass/Vol] 33.8 g/dL Normal 32-36 [facility] Comment on above: Order Comment: 304-2 Performed By: #### L 501.5200, L100.0500, L500.2500 #### [facility] [address] [place], [address] MCV (RBC) [Entitic vol] 95.9 fL High 80-94 [facility] Comment on above: Order Comment: 304-2 Performed By: #### L 501.5200, L100.0500, L500.2500 #### [facility] [address] [place], [address] Platelet mean volume (Bld) [Entitic vol] 9.5 fL Normal 6.2-12.0 [facility] Comment on above: Order Comment: 304-2 Performed By: #### L 501.5200, L100.0500, L500.2500 #### [facility] [address] [place], [address] Platelets (Bld) [#/Vol] 252 10*3/uL Normal 150-450 [facility] Comment on above: Order Comment: 304-2 Performed By: #### L 501.5200, L100.0500, L500.2500 #### [facility] [address] [place], [address] RBC (Bld) [#/Vol] 4.66 10*6/uL Normal 4.6-6.2 [facility] Comment on above: Order Comment: 304-2 Performed By: #### L 501.5200, L100.0500, L500.2500 #### [facility] [address] [place], [address] RDW SD 49.1 fl High 35.1-43.9 [facility] Comment on above: Order Comment: 304-2 Performed By: #### L 501.5200, L100.0500, L500.2500 #### [facility] [address] [place], [address] WBC (Bld) [#/Vol] 7.2 10*3/uL Normal 4.4-11.0 [facility] Comment on above: Order Comment: 304-2 Performed By: #### L 501.5200, L100.0500, L500.2500 #### [facility] [address] [place], [address] Carbon dioxide, total [Moles /volume] in Central venous bloodOrdered By: Avani Eduardo on 04-03-2025 CO2 [Moles/Vol] 24.9 mmol/L 21.0-32.0 [facility] Chloride assayOrdered By: Adriel Eduardo on 04-03-2025 Chloride [Moles/Vol] 96 mmol/L Low 98-108 [facility] Erythrocyte distribution wid th ratioOrdered By: Avani Eduardo on 04-03-2025 Erythrocyte distribution width (RBC) [Ratio] 13.8 % 11.6-14.6 [facility] Erythrocyte distribution wid th standard deviationOrdered By: Avani Eduardo on 04-03-2025 Erythrocyte distribution width (RBC) [Ratio] 49.1 fl High 35.1-43.9 [facility] Glomerular filtration rate ( GFR) estimation/1.73 sq m using serum, plasma, or whole bOrdered By: Avani Eduardo on 04-03-2025 GFR/1.73 sq M.predicted among non-blacks MDRD (S/P/Bld) [Vol rate/Area] 91 mL/min/{1.73_m2} >60 [facility] Comment on above: mL/min/1.73m2 CKD-EP I Creatinine Equation (2020) Hematocrit Auto (Bld) [Volum e fraction]Ordered By: Avani Eduardo on 04-03-2025 Hematocrit (Bld) [Volume fraction] 44.7 % 40-54 [facility] Hemoglobin measurementOrdere d By: Avani Eduardo on 04-03-2025 Hemoglobin (Bld) [Mass/Vol] 15.1 g/dL 13.0-16.5 [facility] MCV (mean corpuscular volume ) determinationOrdered By: Avani Eduardo on 04-03-2025 MCV (RBC) [Entitic vol] 95.9 fL High 80-94 [facility] Magnesiumon 04-03-2025 Magnesium [Mass/Vol] 2.3 mg/dL High 1.5-2.2 [facility] Comment on above: Order Comment: 304-2 Performed By: #### L 501.5200, L100.0500, L500.2500 #### [facility] [address] [place], [address] Magnesium measurement (mass/ volume)Ordered By: Avani Eduardo on 04-03-2025 Magnesium (Unsp spec) [Mass/Vol] 2.3 mg/dL High 1.5-2.2 [facility] Mean corpuscular hemoglobin (MCH) determinationOrdered By: Avani Eduardo on 04-03-2025 MCH (RBC) [Entitic mass] 32.4 pg High 27.0-32.0 [facility] Mean corpuscular hemoglobin concentration (MCHC) determinationOrdered By: Avani Eduardo on 04-03-2025 MCHC (RBC) [Mass/Vol] 33.8 g/dL 32-36 [facility] Mean platelet volume determi nationOrdered By: Avani Eduardo on 04-03-2025 Platelet mean volume (Bld) [Entitic vol] 9.5 fL 6.2-12.0 [facility] Platelet countOrdered By: Adriel Eduardo on 04-03-2025 Platelets (Bld) [#/Vol] 252 10*3/uL 150-450 [facility] Potassium measurement (mass/ volume)Ordered By: Avani Eduardo on 04-03-2025 Potassium (Unsp spec) [Mass/Vol] 4.2 mmol/L 3.3-5.1 [facility] Comment on above: Hemolysis present, R esults could be affected. RBC Auto (Bld) [#/Vol]Ordere d By: Avani Eduardo on 04-03-2025 RBC (Bld) [#/Vol] 4.66 10*6/uL 4.6-6.2 [facility] Serum creatinine measurement (mass/volume)Ordered By: Avani Eduardo on 04-03-2025 Creatinine [Mass/Vol] 0.84 mg/dL 0.70-1.20 [facility] Serum glucose measurement (m ass/volume)Ordered By: Avani Eduardo on 04-03-2025 Glucose [Mass/Vol] 229 mg/dL High 70-99 [facility] Serum or plasma calcium minda urement (mass/volume)Ordered By: Avani Eduardo on 04-03-2025 Calcium [Mass/Vol] 9.8 mg/dL 7.6-11.0 [facility] Serum or plasma urea nitroge n measurement (mass/volume)Ordered By: Avani Eduardo on 04-03-2025 Urea nitrogen [Mass/Vol] 12 mg/dL 4-19 [facility] Sodium levelOrdered By: Emmanuel Eduardo on 04-03-2025 Sodium [Moles/Vol] 137 mmol/L 133-145 [facility] White blood cell (WBC) count Ordered By: Avani Eduardo on 04-03-2025 WBC (Bld) [#/Vol] 7.2 10*3/uL 4.4-11.0 [facility] TSH DL <= 0.005 mIU/L QnOrde red By: Avani Eduardo on 02-28-2025 TSH Qn 4.330 uIU/mL High 0.300-4.20 0 [facility] Thyroid Stim Hormone (TSH)on 02-28-2025 TSH 4.330 uIU/mL High 0.300-4.20 0 [facility] Comment on above: Order Comment: 304-2 Performed By: #### L 501.5200, L100.0500, L500.2500 #### [facility] [address] [place], [address] Arterial study reportOrdered By: Eris Capps on 02-13-2025 Noninvasive arteriosclerosis study report [facility] [address] 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 [facility] Work Phone: Lower Ext Art Exam w/o Exerc jerry 02-13-2025 Lower Ext Art Exam w/o Exercis [facility] [address] [place] [address] Lower Ext Art Exam w/o Exercis 02/13/25910 MR#: [id number] Acct: [id number] Name: ANJEL ROSS Rep #: [id number] : 1950 74 From: Eris Capps MD [...] Eduardo MD Date Dictated: 02/13/25910 Date Transcribed: 02/13/25 105 [employer]using Machine Operator: Signed Normal [facility] Anion gap in Serum or Plasma Ordered By: Avani Eduardo on 02-01-2025 Anion gap [Moles/Vol] 13 mmol/L - [facility] BUN/creatinine ratioOrdered By: Avani Eduardo on 02-01-2025 Urea nitrogen/Creatinine [Mass ratio] 16.2 mg/mg - [facility] Basic Metabolic Profile (BMP )on 02-01-2025 BUN/CRE 16.2 RATIO Normal - [facility] Comment on above: Order Comment: 304-2 Performed By: #### L 501.5200, L100.0500, L500.2500 #### [facility] [address] [place], [address] Calcium [Mass/Vol] 8.4 mg/dL Normal 7.6-11.0 [facility] Comment on above: Order Comment: 304-2 Performed By: #### L 501.5200, L100.0500, L500.2500 #### [facility] [address] [place], [address] Chloride [Moles/Vol] 98 mmol/L Normal 98-108 [facility] Comment on above: Order Comment: 304-2 Performed By: #### L 501.5200, L100.0500, L500.2500 #### [facility] [address] [place], [address] CO2 [Moles/Vol] 25.5 mmol/L Normal 21.0-32.0 [facility] Comment on above: Order Comment: 304-2 Performed By: #### L 501.5200, L100.0500, L500.2500 #### [facility] [address] [place], [address] Creatinine [Mass/Vol] 0.64 mg/dL Low 0.70-1.20 [facility] Comment on above: Order Comment: 304-2 Performed By: #### L 501.5200, L100.0500, L500.2500 #### [facility] [address] [place], [address] GAP 13 Normal 5-15 [facility] Comment on above: Order Comment: 304-2 Performed By: #### L 501.5200, L100.0500, L500.2500 #### [facility] [address] [place], [address] GFR/1.73 sq M.predicted among non-blacks MDRD (S/P/Bld) [Vol rate/Area] 99 mL/min/{1.73_m2} Normal >60 [facility] Comment on above: Order Comment: 304-2 Result Comment: mL/m in/1.73m2 CKD-EPI Creatinine Equation (2020) Performed By: #### L 501.5200, L100.0500, L500.2500 #### [facility] [address] [place], [address] Glucose [Mass/Vol] 203 mg/dL High 70-99 [facility] Comment on above: Order Comment: 304-2 Performed By: #### L 501.5200, L100.0500, L500.2500 #### [facility] [address] [place], [address] Potassium [Moles/Vol] 3.5 mmol/L Normal 3.3-5.1 [facility] Comment on above: Order Comment: 304-2 Performed By: #### L 501.5200, L100.0500, L500.2500 #### [facility] [address] [place], [address] Sodium [Moles/Vol] 136 mmol/L Normal 133-145 [facility] Comment on above: Order Comment: 304-2 Performed By: #### L 501.5200, L100.0500, L500.2500 #### [facility] [address] [place], [address] Urea nitrogen [Mass/Vol] 10 mg/dL Normal 4-19 [facility] Comment on above: Order Comment: 304-2 Performed By: #### L 501.5200, L100.0500, L500.2500 #### [facility] [address] [place], [address] CBC-Complete Blood Cnt No Di ffon 02-01-2025 Erythrocyte distribution width (RBC) [Ratio] 13.2 % Normal 11.6-14.6 [facility] Comment on above: Order Comment: 304-2 Performed By: #### L 501.5200, L100.0500, L500.2500 #### [facility] [address] [place], [address] Hematocrit (Bld) [Volume fraction] 36.0 % Low 40-54 [facility] Comment on above: Order Comment: 304-2 Performed By: #### L 501.5200, L100.0500, L500.2500 #### [facility] [address] [place], [address] Hemoglobin (Bld) [Mass/Vol] 12.7 g/dL Low 13.0-16.5 [facility] Comment on above: Order Comment: 304-2 Performed By: #### L 501.5200, L100.0500, L500.2500 #### [facility] [address] [place], [address] MCH (RBC) [Entitic mass] 32.6 pg High 27.0-32.0 [facility] Comment on above: Order Comment: 304-2 Performed By: #### L 501.5200, L100.0500, L500.2500 #### [facility] [address] [place], [address] MCHC (RBC) [Mass/Vol] 35.3 g/dL Normal 32-36 [facility] Comment on above: Order Comment: 304-2 Performed By: #### L 501.5200, L100.0500, L500.2500 #### [facility] [address] [place], [address] MCV (RBC) [Entitic vol] 92.3 fL Normal 80-94 [facility] Comment on above: Order Comment: 304-2 Performed By: #### L 501.5200, L100.0500, L500.2500 #### [facility] [address] [place], [address] Platelet mean volume (Bld) [Entitic vol] 8.9 fL Normal 6.2-12.0 [facility] Comment on above: Order Comment: 304-2 Performed By: #### L 501.5200, L100.0500, L500.2500 #### [facility] [address] [place], [address] Platelets (Bld) [#/Vol] 158 10*3/uL Normal 150-450 [facility] Comment on above: Order Comment: 304-2 Performed By: #### L 501.5200, L100.0500, L500.2500 #### [facility] [address] [place], [address] RBC (Bld) [#/Vol] 3.90 10*6/uL Low 4.6-6.2 [facility] Comment on above: Order Comment: 304-2 Performed By: #### L 501.5200, L100.0500, L500.2500 #### [facility] [address] [place], [address] RDW SD 44.3 fl High 35.1-43.9 [facility] Comment on above: Order Comment: 304-2 Performed By: #### L 501.5200, L100.0500, L500.2500 #### [facility] [address] [place], [address] WBC (Bld) [#/Vol] 6.1 10*3/uL Normal 4.4-11.0 [facility] Comment on above: Order Comment: 304-2 Performed By: #### L 501.5200, L100.0500, L500.2500 #### [facility] [address] [place], [address] Carbon dioxide, total [Moles /volume] in Central venous bloodOrdered By: Avani Eduardo on 02-01-2025 CO2 [Moles/Vol] 25.5 mmol/L 21.0-32.0 [facility] Chloride assayOrdered By: Adriel Eduardo on 02-01-2025 Chloride [Moles/Vol] 98 mmol/L 98-108 [facility] Erythrocyte distribution wid th ratioOrdered By: Avani Eduardo on 02-01-2025 Erythrocyte distribution width (RBC) [Ratio] 13.2 % 11.6-14.6 [facility] Erythrocyte distribution wid th standard deviationOrdered By: Avani Eduardo on 02-01-2025 Erythrocyte distribution width (RBC) [Ratio] 44.3 fl High 35.1-43.9 [facility] Glomerular filtration rate ( GFR) estimation/1.73 sq m using serum, plasma, or whole bOrdered By: Avani Eduardo on 02-01-2025 GFR/1.73 sq M.predicted among non-blacks MDRD (S/P/Bld) [Vol rate/Area] 99 mL/min/{1.73_m2} >60 [facility] Comment on above: mL/min/1.73m2 CKD-EP I Creatinine Equation (2020) Hematocrit Auto (Bld) [Volum e fraction]Ordered By: Avani Eduardo on 02-01-2025 Hematocrit (Bld) [Volume fraction] 36.0 % Low 40-54 [facility] Hemoglobin measurementOrdere d By: Avani Eduardo on 02-01-2025 Hemoglobin (Bld) [Mass/Vol] 12.7 g/dL Low 13.0-16.5 [facility] MCV (mean corpuscular volume ) determinationOrdered By: Avani Eduardo on 02-01-2025 MCV (RBC) [Entitic vol] 92.3 fL 80-94 [facility] Magnesiumon 02-01-2025 Magnesium [Mass/Vol] 2.2 mg/dL Normal 1.5-2.2 [facility] Comment on above: Order Comment: 304-2 Performed By: #### L 501.5200, L100.0500, L500.2500 #### [facility] [address] [place], [address] Magnesium measurement (mass/ volume)Ordered By: Avani Eduardo on 02-01-2025 Magnesium (Unsp spec) [Mass/Vol] 2.2 mg/dL 1.5-2.2 [facility] Mean corpuscular hemoglobin (MCH) determinationOrdered By: Avani Eduardo on 02-01-2025 MCH (RBC) [Entitic mass] 32.6 pg High 27.0-32.0 [facility] Mean corpuscular hemoglobin concentration (MCHC) determinationOrdered By: Avani Eduardo on 02-01-2025 MCHC (RBC) [Mass/Vol] 35.3 g/dL 32-36 [facility] Mean platelet volume determi nationOrdered By: Avani Eduardo on 02-01-2025 Platelet mean volume (Bld) [Entitic vol] 8.9 fL 6.2-12.0 [facility] Platelet countOrdered By: Adriel Eduardo on 02-01-2025 Platelets (Bld) [#/Vol] 158 10*3/uL 150-450 [facility] Potassium measurement (mass/ volume)Ordered By: Avani Eduardo on 02-01-2025 Potassium (Unsp spec) [Mass/Vol] 3.5 mmol/L 3.3-5.1 [facility] RBC Auto (Bld) [#/Vol]Ordere d By: Avani Eduardo on 02-01-2025 RBC (Bld) [#/Vol] 3.90 10*6/uL Low 4.6-6.2 [facility] Serum creatinine measurement (mass/volume)Ordered By: Avani Eduardo on 02-01-2025 Creatinine [Mass/Vol] 0.64 mg/dL Low 0.70-1.20 [facility] Serum glucose measurement (m ass/volume)Ordered By: Avani Eduardo on 02-01-2025 Glucose [Mass/Vol] 203 mg/dL High 70-99 [facility] Serum or plasma calcium minda urement (mass/volume)Ordered By: Avanigómez Eduardo on 02-01-2025 Calcium [Mass/Vol] 8.4 mg/dL 7.6-11.0 [facility] Serum or plasma urea nitroge n measurement (mass/volume)Ordered By: Avani Eduardo on 02-01-2025 Urea nitrogen [Mass/Vol] 10 mg/dL 4-19 [facility] Sodium levelOrdered By: Emmanuel Eduardo on 02-01-2025 Sodium [Moles/Vol] 136 mmol/L 133-145 [facility] White blood cell (WBC) count Ordered By: Avani Eduardo on 02-01-2025 WBC (Bld) [#/Vol] 6.1 10*3/uL 4.4-11.0 [facility] MR/BMSDontae 01-31-2025 MR/BMS.DENIA [facility] [address] [place] [address] OFFICE VISIT Date of Service: 01/31/25 MR#: [id number] Acct: [id number] Name: ANJEL ROSS Rep #: [id number] : 1950 Provider: PIO House Age/Sex: 74/M Location: [facility] Status: Signed Intake Vital Signs [...] mg tablet 1 mg PO TID SEIZURES 07/11/19/ History loratadine 10 mg capsule 10 mg [...] lower extremity arterial duplex performed at [facility] reporting atherosclerotic (more content not included)... Normal [facility] Hemoglobin A1con 01-05-2025 HbA1c (Bld) [Mass fraction] 8.1 % Normal <=5.6 [facility] Comment on above: Order Comment: 304-2 Performed By: #### L 501.9985 #### [facility] [address] [place], [address] Hemoglobin A1c percentageOrd ered By: Avani Eduardo on 01-05-2025 HbA1c (Bld) [Mass fraction] 8.1 % >5.7 [facility] Serum or plasma valproate me asurement (mass/volume)Ordered By: Avani Eduardo on 01-03-2025 Valproate [Mass/Vol] 56 ug/mL 50-100 [facility] Comment on above: Valproic Acid concen trations >100 ug/mL are potentially toxic. Valproic Acid (Depakene) Lev chandu 01-03-2025 VALPROIC ACID 56 ug/mL Normal 50-100 [facility] Comment on above: Order Comment: 304.2 Result Comment: Valp roic Acid concentrations >100 ug/mL are potentially toxic. Performed By: #### L 501.8100 #### [facility] [address] [place], [place], [id number] Anion gap in Serum or Plasma Ordered By: Avani Eduardo on 01-02-2025 Anion gap [Moles/Vol] 17 mmol/L High 5-15 [facility] Automated blood erythrocyte countOrdered By: Avani Eduardo on 01-02-2025 RBC (Bld) [#/Vol] 4.61 10*6/uL Normal 4.6-6.2 [facility] Comment on above: Order Comment: 304-2 Performed By: #### L 501.5200, L100.0500, L500.2500 #### [facility] [address] [place], [address] Automated blood hematocrit ( percentage)Ordered By: Avani Eduardo on 01-02-2025 Hematocrit (Bld) [Volume fraction] 42.7 % Normal 40-54 [facility] Comment on above: Order Comment: 304-2 Performed By: #### L 501.5200, L100.0500, L500.2500 #### [facility] [address] [place], [address] BUN/creatinine ratioOrdered By: Avani Eduardo on 01-02-2025 Urea nitrogen/Creatinine [Mass ratio] 15.2 mg/mg 10-20 [facility] Basic Metabolic Profile (BMP )on 01-02-2025 BUN/CRE 15.2 RATIO Normal -20 [facility] Comment on above: Order Comment: 304-2 Performed By: #### L 501.5200, L100.0500, L500.2500 #### [facility] [address] [place], [address] GAP 17 High 5-15 [facility] Comment on above: Order Comment: 304-2 Performed By: #### L 501.5200, L100.0500, L500.2500 #### [facility] [address] [place], [address] CBC-Complete Blood Cnt No Di ffon 01-02-2025 RDW SD 46.2 fl High 35.1-43.9 [facility] Comment on above: Order Comment: 304-2 Performed By: #### L 501.5200, L100.0500, L500.2500 #### [facility] [address] [place], [address] Carbon dioxide, total [Moles /volume] in Central venous bloodOrdered By: Avani Eduardo on 01-02-2025 CO2 [Moles/Vol] 23.4 mmol/L Normal 21.0-32.0 [facility] Comment on above: Order Comment: 304-2 Performed By: #### L 501.5200, L100.0500, L500.2500 #### [facility] [address] [place], [address] Chloride assayOrdered By: Adriel Eduardo on 01-02-2025 Chloride [Moles/Vol] 97 mmol/L Low 98-108 [facility] Comment on above: Order Comment: 304-2 Performed By: #### L 501.5200, L100.0500, L500.2500 #### [facility] [address] [place], [place], [address] Erythrocyte distribution wid th ratioOrdered By: Avani Eduardo on 01-02-2025 Erythrocyte distribution width (RBC) [Ratio] 13.6 % Normal 11.6-14.6 [facility] Comment on above: Order Comment: 304-2 Performed By: #### L 501.5200, L100.0500, L500.2500 #### [facility] [address] [place], [place], [address] Erythrocyte distribution wid th standard deviationOrdered By: Avani Eduardo on 01-02-2025 Erythrocyte distribution width (RBC) [Entitic vol] 46.2 fL High 35.1-43.9 [facility] Erythrocyte distribution width (RBC) [Ratio] 46.2 fl High 35.1-43.9 [facility] [facility] GFR/1.73 sq M.predicted maria elena g non-blacks MDRD (S/P/Bld) [Vol rate/Area]Ordered By: Avani Eduardo on 01-02-2025 Estimated GFR (MDRD) Non-Af Amer 90 >60 [facility] Comment on above: mL/min/1.73m2 CKD-EP I Creatinine Equation (2020) Glomerular filtration rate ( GFR) estimation/1.73 sq m using serum, plasma, or whole bOrdered By: Avani Eduardo on 01-02-2025 GFR/1.73 sq M.predicted among non-blacks MDRD (S/P/Bld) [Vol rate/Area] 90 mL/min/{1.73_m2} Normal >60 [facility] Comment on above: mL/min/1.73m2 CKD-EP I Creatinine Equation (2020) Order Comment: 304-2 Result Comment: mL/m in/1.73m2 CKD-EPI Creatinine Equation (2020) Performed By: #### L 501.5200, L100.0500, L500.2500 #### [facility] [address] [place], [address] Hemoglobin measurementOrdere d By: Avani Eduardo on 01-02-2025 Hemoglobin (Bld) [Mass/Vol] 14.8 g/dL Normal 13.0-16.5 [facility] Comment on above: Order Comment: 304-2 Performed By: #### L 501.5200, L100.0500, L500.2500 #### [facility] [address] [place], [address] MCV (mean corpuscular volume ) determinationOrdered By: Avani Eduardo on 01-02-2025 MCV (RBC) [Entitic vol] 92.6 fL Normal 80-94 [facility] Comment on above: Order Comment: 304-2 Performed By: #### L 501.5200, L100.0500, L500.2500 #### [facility] [address] [place], [address] Magnesium measurement (mass/ volume)Ordered By: Avani Eduardo on 01-02-2025 Magnesium [Mass/Vol] 2.3 mg/dL High 1.5-2.2 [facility] Comment on above: Order Comment: 304-2 Performed By: #### L 501.5200, L100.0500, L500.2500 #### [facility] [address] [place], [address] Magnesium (Unsp spec) [Mass/Vol] 2.3 mg/dL High 1.5-2.2 [facility] Mean corpuscular hemoglobin (MCH) determinationOrdered By: Avani Eduardo on 01-02-2025 MCH (RBC) [Entitic mass] 32.1 pg High 27.0-32.0 [facility] Comment on above: Order Comment: 304-2 Performed By: #### L 501.5200, L100.0500, L500.2500 #### [facility] [address] [place], [address] Mean corpuscular hemoglobin concentration (MCHC) determinationOrdered By: Avani Eduardo on 01-02-2025 MCHC (RBC) [Mass/Vol] 34.7 g/dL Normal 32-36 [facility] Comment on above: Order Comment: 304-2 Performed By: #### L 501.5200, L100.0500, L500.2500 #### [facility] [address] [place], [place], [id number] Mean platelet volume determi nationOrdered By: Avani Eduardo on 01-02-2025 Platelet mean volume (Bld) [Entitic vol] 9.1 fL Normal 6.2-12.0 [facility] Comment on above: Order Comment: 304-2 Performed By: #### L 501.5200, L100.0500, L500.2500 #### [facility] [address] [place], [address] Platelet countOrdered By: Adriel Eduardo on 01-02-2025 Platelets (Bld) [#/Vol] 193 10*3/uL Normal 150-450 [facility] Comment on above: Order Comment: 304-2 Performed By: #### L 501.5200, L100.0500, L500.2500 #### [facility] [address] [place], [address] Potassium measurement (mass/ volume)Ordered By: Avani Eduardo on 01-02-2025 Potassium [Moles/Vol] 4.1 mmol/L Normal 3.3-5.1 [facility] Comment on above: Hemolysis present, R esults could be affected. Order Comment: 304-2 Result Comment: Hemo lysis present, Results??could be affected. ?? Performed By: #### L 501.5200, L100.0500, L500.2500 #### [facility] [address] [place], [address] Potassium (Unsp spec) [Mass/Vol] 4.1 mmol/L 3.3-5.1 [facility] Comment on above: Hemolysis present, R esults could be affected. Serum creatinine measurement (mass/volume)Ordered By: Avani Eduardo on 01-02-2025 Creatinine [Mass/Vol] 0.87 mg/dL Normal 0.70-1.20 [facility] Comment on above: Order Comment: 304-2 Performed By: #### L 501.5200, L100.0500, L500.2500 #### [facility] [address] [place], [address] Serum glucose measurement (m ass/volume)Ordered By: Avani Eduardo on 01-02-2025 Glucose [Mass/Vol] 223 mg/dL High 70-99 [facility] Comment on above: Order Comment: 304-2 Performed By: #### L 501.5200, L100.0500, L500.2500 #### [facility] [address] [place], [address] Serum or plasma calcium minda urement (mass/volume)Ordered By: Avani Eduardo on 01-02-2025 Calcium [Mass/Vol] 9.7 mg/dL Normal 7.6-11.0 [facility] Comment on above: Order Comment: 304-2 Performed By: #### L 501.5200, L100.0500, L500.2500 #### [facility] [address] [place], [address] Serum or plasma urea nitroge n measurement (mass/volume)Ordered By: Avani Eduardo on 01-02-2025 Urea nitrogen [Mass/Vol] 13 mg/dL Normal 4-19 [facility] Comment on above: Order Comment: 304-2 Performed By: #### L 501.5200, L100.0500, L500.2500 #### [facility] [address] [place], [place], [id number] Sodium levelOrdered By: Emmanuel Eduardo on 01-02-2025 Sodium [Moles/Vol] 138 mmol/L Normal 133-145 [facility] Comment on above: Order Comment: 304-2 Performed By: #### L 501.5200, L100.0500, L500.2500 #### [facility] [address] [place], [place], [id number] White blood cell (WBC) count Ordered By: Avani Eduardo on 01-02-2025 WBC (Bld) [#/Vol] 9.9 10*3/uL Normal 4.4-11.0 [facility] Comment on above: Order Comment: 304-2 Performed By: #### L 501.5200, L100.0500, L500.2500 #### [facility] [address] [place], [place], [address] Calculated very low density lipoprotein (VLDL) cholesterol measurementOrdered By: Avani Eduardo on 12-06-2024 Calculated very low density lipoprotein (VLDL) cholesterol measurement 49 mg/dL High 5-40 [facility] VLDL Cholesterol 49 mg/dL High 5-40 [facility] LDL calc ser/plasOrdered By: Avani Eduardo on 12-06-2024 Cholesterol in LDL [Mass/Vol] 61 mg/dL [facility] Comment on above: Cvkfgvugru=357-216 m g/dL & Higher Kpvl=950 mg/dL or greater LDL Cholesterol, Calculated 61 mg/dL [facility] Comment on above: Clxpkpyqip=633-592 m g/dL & Higher Eeym=310 mg/dL or greater Lipid Profileon 12-06-2024 CHOL:HDL 4.46 Normal [facility] Comment on above: Order Comment: 304-2 Performed By: #### L 501.5200, L100.0500, L500.2500 #### [facility] [address] [place], [address] Cholesterol [Mass/Vol] 141 mg/dL Normal <=200 [facility] Comment on above: Order Comment: 304-2 Result Comment: Chol esterol level, Desirable <200 mg/dL Borderline high cholesterol 200-239 mg/dL High cholesterol >=240 mg/dL Recommendations of the NCEP Adult Treatment Panel for the following risk-cutoff thresholds for the [place] population. Performed By: #### L 501.5200, L100.0500, L500.2500 #### [facility] [address] [place], [address] Cholesterol in HDL [Mass/Vol] 32 mg/dL Low [facility] Comment on above: Order Comment: 304-2 Result Comment: Luzmaria onal Cholesterol Education Program (NCEP) guidelines: <40 mg/dL: Low HDL-cholesterol (major risk factor for CHD) >= 60 mg/dL: High HDL-cholesterol (negative risk factor for CHD) HDL-cholesterol is affected by a number of factors, e.g. smoking, exercise, hormones, sex and age. Performed By: #### L 501.5200, L100.0500, L500.2500 #### [facility] [address] [place], [address] Cholesterol in LDL [Mass/Vol] 61 mg/dL Normal [facility] Comment on above: Order Comment: 304-2 Result Comment: Bord qxfxtd=471-893 mg/dL Higher Qzyh=912 mg/dL or greater Performed By: #### L 501.5200, L100.0500, L500.2500 #### [facility] [address] [place], [address] Cholesterol in VLDL [Mass/Vol] 49 mg/dL High 5-40 [facility] Comment on above: Order Comment: 304-2 Performed By: #### L 501.5200, L100.0500, L500.2500 #### [facility] [address] [place], [address] Triglyceride [Mass/Vol] 244 mg/dL High [facility] Comment on above: Order Comment: 304-2 Result Comment: The drugs N-Acetylcysteine and Metamizole may falsely depress this assay. Normal range: <150 mg/dL Borderline High: 150-199 mg/dL High: 200-499 mg/dL Very High: >500 mg/dL Performed By: #### L 501.5200, L100.0500, L500.2500 #### [facility] [address] [place], [place], [id number] Screening total cholesterol/ high density lipoprotein (HDL) cholesterol ratioOrdered By: Avani Eduardo on 12-06-2024 Cholesterol.total/Chol esterol in HDL [Mass ratio] 4.46 {ratio} [facility] Serum or plasma cholesterol in HDL measurement (mass/volume)Ordered By: Avani Eduardo on 12-06-2024 Cholesterol in HDL [Mass/Vol] 32 mg/dL Low >40 [facility] Comment on above: National Cholesterol Education Program (NCEP) guidelines:<40 mg/dL: Low HDL-cholesterol (major risk factor for CHD)>= 60 mg/dL: High HDL-cholesterol (negative risk factor for CHD)HDL-cholesterol is affected by a number of factors, e.g. smoking, exercise, hormones, sex and age. Serum or plasma cholesterol measurement (mass/volume)Ordered By: Avain Eduardo on 12-06-2024 Cholesterol [Mass/Vol] 141 mg/dL <201 [facility] Comment on above: Cholesterol level, D esirable <200 mg/dLBorderline high cholesterol 200-239 mg/dLHigh cholesterol >=240 mg/dLRecommendations of the NCEP Adult Treatment Panel for the following risk-cutoff thresholds for the [place] population. Triglycerides measurementOrd ered By: Avani Eduardo on 12-06-2024 Triglyceride [Mass/Vol] 244 mg/dL High <199 [facility] Comment on above: The drugs N-Acetylcy steine and Metamizole may falsely depress this assay. Normal range: <150 mg/dLBorderline High: 150-199 mg/dLHigh: 200-499 mg/dLVery High: >500 mg/dL MR/BMSShanthiBVSon 11-01-2024 MR/BMSShanthiBVKristine [facility] [address] [place] [address] OFFICE VISIT Date of Service: 11/01/24 MR#: [id number] Acct: [id number] Name: ANJEL ROSS Rep #: [id number] 2 : 1950 Provider: PIO [facility] Age/Sex: 74/M Location: [facility] Status: Signed Intake Vital Signs 01/15/23 [...] you fallen in the past year?: Yes [facility] Medical History Weakness Hypothyroid Schizophrenia Wears glasses [...] the office today as referred from [facility]. The only records received from [facility] were a bilateral lower extremity arterial duplex performed at the [facility] (more content not included)... Normal [facility] Basic Metabolic Profile (BMP )on 10-05-2024 BUN/CRE 18.0 RATIO Normal 10-20 [facility] Comment on above: Order Comment: 304-2 Performed By: #### L 501.5200, L500.2500, L501.9520 #### [facility] [address] [place], [address] CA,Total 8.6 mg/dL Normal 8.5-10.1 [facility] Comment on above: Order Comment: 304-2 Performed By: #### L 501.5200, L500.2500, L501.9520 #### [facility] [address] [place], [address] Chloride [Moles/Vol] 102 mmol/L Normal 98-107 [facility] Comment on above: Order Comment: 304-2 Performed By: #### L 501.5200, L500.2500, L501.9520 #### [facility] [address] [place], [address] CO2 [Moles/Vol] 32.0 mmol/L Normal 21.0-32.0 [facility] Comment on above: Order Comment: 304-2 Performed By: #### L 501.5200, L500.2500, L501.9520 #### [facility] [address] [place], [address] Creatinine [Mass/Vol] 0.61 mg/dL Low 0.70-1.30 [facility] Comment on above: Order Comment: 304-2 Result Comment: The validity of the calculated GFR GFRAA in patients over 70 years has not been determined. Clinical correlation is essential. Performed By: #### L 501.5200, L500.2500, L501.9520 #### [facility] [address] [place], [address] EST GFR - AA 166 mL/min Normal >60 [facility] Comment on above: Order Comment: 304-2 Result Comment: Afri can [place] GFR Calc Performed By: #### L 501.5200, L500.2500, L501.9520 #### [facility] [address] [place], [address] GAP 6 Normal 5-15 [facility] Comment on above: Order Comment: 304-2 Performed By: #### L 501.5200, L500.2500, L501.9520 #### [facility] [address] [place], [address] GFR/1.73 sq M.predicted among non-blacks MDRD (S/P/Bld) [Vol rate/Area] 137 mL/min/{1.73_m2} Normal >60 [facility] Comment on above: Order Comment: 304-2 Result Comment: Non- GFR Calc Performed By: #### L 501.5200, L500.2500, L501.9520 #### [facility] [address] [place], [address] Glucose [Mass/Vol] 176 mg/dL High 74-106 [facility] Comment on above: Order Comment: 304-2 Result Comment: Fast ing Glucose result greater than or equal to 126 mg/dL suggests DIABETES MELLITUS per A.D.A. criteria. Performed By: #### L 501.5200, L500.2500, L501.9520 #### [facility] [address] [place], [address] Potassium [Moles/Vol] 3.4 mmol/L Low 3.5-5.1 [facility] Comment on above: Order Comment: 304-2 Performed By: #### L 501.5200, L500.2500, L501.9520 #### [facility] [address] [place], [address] Sodium [Moles/Vol] 140 mmol/L Normal 136-145 [facility] Comment on above: Order Comment: 304-2 Performed By: #### L 501.5200, L500.2500, L501.9520 #### [facility] [address] [place], [address] Urea nitrogen [Mass/Vol] 11 mg/dL Normal 7-18 [facility] Comment on above: Order Comment: 304-2 Performed By: #### L 501.5200, L500.2500, L501.9520 #### [facility] [address] [place], [address] Blood urea nitrogen (BUN)/cr eatinine ratioOrdered By: Avani Eduardo on 10-05-2024 Urea nitrogen/Creatinine [Mass ratio] 18.0 mg/mg 10-20 [facility] Carbon dioxide measurementOr dered By: Avani Eduardo on 10-05-2024 CO2 [Moles/Vol] 32.0 mmol/L 21.0-32.0 [facility] Chloride measurementOrdered By: Avani Eduardo on 10-05-2024 Chloride [Moles/Vol] 102 mmol/L 98-107 [facility] Estimated glomerular filtrat ion rate (GFR) AmericanOrdered By: Avani Eduardo on 10-05-2024 Estimated GFR (MDRD) Amer 166 mL/min >60 [facility] Comment on above: GFR Calc Glomerular filtration rate ( GFR) estimationOrdered By: Avani Eduardo on 10-05-2024 Estimated GFR (MDRD) Non-Af Amer 137 mL/min >60 [facility] Comment on above: Non- GFR Calc Glucose measurementOrdered B y: Avani Eduardo on 10-05-2024 Glucose [Mass/Vol] 176 mg/dL High 74-106 [facility] Comment on above: Fasting Glucose resu lt greater than or equal to 126 mg/dL suggests DIABETES MELLITUS per A.D.A. criteria. Magnesiumon 10-05-2024 Magnesium [Mass/Vol] 2.3 mg/dL Normal 1.6-2.6 [facility] Comment on above: Order Comment: 304-2 Performed By: #### L 501.5200, L500.2500, L501.9520 #### [facility] [address] [place], [address] Magnesium measurementOrdered By: Avani Eduardo on 10-05-2024 Magnesium [Mass/Vol] 2.3 mg/dL 1.6-2.6 [facility] Potassium measurementOrdered By: Avani Eduardo on 10-05-2024 Potassium [Moles/Vol] 3.4 mmol/L Low 3.5-5.1 [facility] Serum anion gap measurementO rdered By: Avani Eduardo on 10-05-2024 Anion gap [Moles/Vol] 6 mmol/L 5-15 [facility] Serum or plasma calcium minda urement (mass/volume)Ordered By: Avani Eduardo on 10-05-2024 Calcium [Mass/Vol] 8.6 mg/dL 8.5-10.1 [facility] Serum or plasma creatinine m easurement (mass/volume)Ordered By: Avani Eduardo on 10-05-2024 Creatinine [Mass/Vol] 0.61 mg/dL Low 0.70-1.30 [facility] Comment on above: The validity of the calculated GFR & GFRAA in patients over 70 years has not been determined. Clinical correlation is essential. Serum or plasma urea nitroge n measurement (mass/volume)Ordered By: Avani Eduardo on 10-05-2024 Urea nitrogen [Mass/Vol] 11 mg/dL 7-18 [facility] Sodium levelOrdered By: Emmanuel Eduardo on 10-05-2024 Sodium [Moles/Vol] 140 mmol/L 136-145 [facility] TSH QnOrdered By: Avani smith on 10-05-2024 Thyroid Stimulating Hormone (TSH) 1.740 uIU/mL 0.358-3.74 0 [facility] Thyroid Stim Hormone (TSH)on 10-05-2024 TSH 1.740 uIU/mL Normal 0.358-3.74 0 [facility] Comment on above: Order Comment: 304-2 Performed By: #### L 501.5200, L500.2500, L501.9520 #### [facility] [address] [place], [place], [id number] Absolute neutrophil countOrd ered By: Avani Eduardo on 09-29-2024 Neutrophils (Bld) [#/Vol] 3.1 10*3/uL 2.0-7.7 [facility] Automated blood erythrocyte countOrdered By: Avani Eduardo on 09-29-2024 RBC (Bld) [#/Vol] 4.23 10*6/uL Low 4.6-6.2 [facility] Comment on above: Performed By: #### L 100.0100, L501.6710 #### [facility] [address] [place], [address] Automated blood hematocrit ( percentage)Ordered By: Avani Eduardo on 09-29-2024 Hematocrit (Bld) [Volume fraction] 39.4 % Low 40-54 [facility] Comment on above: Performed By: #### L 100.0100, L501.6710 #### [facility] [address] [place], [address] Automated lymphocyte count a s percentage of total leukocytesOrdered By: Avani Eduardo on 09-29-2024 Lymphocytes/100 WBC (Bld) 38.9 % Normal 19-41 [facility] Comment on above: Performed By: #### L 100.0100, L501.6710 #### [facility] [address] [place], [address] Basophil percentageOrdered B y: Avani Eduardo on 09-29-2024 Basophils/100 WBC (Bld) 0.8 % Normal 0-1 [facility] Comment on above: Performed By: #### L 100.0100, L501.6710 #### [facility] [address] [place], [address] C-reactive protein measureme nt by high sensitivity methodOrdered By: Avani Eduardo on 09-29-2024 C-Reactive Protein Extended Range 3.29 mg/L High 0.0-3.0 [facility] Comment on above: C-Reactive Protein ( CRP) provides useful information for thediagnosis, therapy and monitoring of inflammatory processesand associated diseases. For the evaluation of Relative Riskfor Cardiovascular Disease, a High Sensitivity CRP (HSCRP)should be ordered. CBC W/Diff, Automatedon - Absolute Lymph 2.76 X10 3/uL Normal 0.83-4.51 [facility] Comment on above: Performed By: #### L 100.0100, L501.6710 #### [facility] [address] [place], [address] Absolute Neut 3.1 X10 3/uL Normal 2.0-7.7 [facility] Comment on above: Performed By: #### L 100.0100, L501.6710 #### [facility] [address] [place], [address] IG% 0.600 Normal 0.0-0.9 [facility] Comment on above: Result Comment: IG% - Immature Granulocytes (promyelocytes, myelocytes and metamyelocytes) > 1% indicates that a LEFT SHIFT is Present. Performed By: #### L 100.0100, L501.6710 #### [facility] [address] [place], [address] Nucleated RBC (Bld) [#/Vol] 0 10*3/uL Normal 0-5 [facility] Comment on above: Performed By: #### L 100.0100, L501.6710 #### [facility] [address] [place], [address] RDW SD 45.4 fl High 35.1-43.9 [facility] Comment on above: Performed By: #### L 100.0100, L501.6710 #### [facility] [address] [place], [address] CRPon 09-29-2024 C-REACTIVE PROT 3.29 mg/L High 0.0-3.0 [facility] Comment on above: Result Comment: C-Re active Protein (CRP) provides useful information for the diagnosis, therapy and monitoring of inflammatory processes and associated diseases. For the evaluation of Relative Risk for Cardiovascular Disease, a High Sensitivity CRP (HSCRP) should be ordered. Performed By: #### L 100.0100, L501.6710 #### [facility] [address] [place], [address] Eosinophil percentageOrdered By: Avani Eduardo on 09-29-2024 Eosinophils/100 WBC (Bld) 2.4 % Normal 0-5 [facility] Comment on above: Performed By: #### L 100.0100, L501.6710 #### [facility] [address] [place], [address] Erythrocyte distribution wid th ratioOrdered By: Avani Eduardo on 09-29-2024 Erythrocyte distribution width (RBC) [Ratio] 13.4 % Normal 11.6-14.6 [facility] Comment on above: Performed By: #### L 100.0100, L501.6710 #### [facility] [address] [place], [address] Erythrocyte distribution wid th standard deviationOrdered By: Avani Eduardo on 09-29-2024 Erythrocyte distribution width (RBC) [Entitic vol] 45.4 fL High 35.1-43.9 [facility] Hemoglobin measurementOrdere d By: Avani Eduardo on 09-29-2024 Hemoglobin (Bld) [Mass/Vol] 13.1 g/dL Normal 13.0-16.5 [facility] Comment on above: Performed By: #### L 100.0100, L5.6710 #### [facility] [address] [place], [address] Immature granulocytes/100 WB C Auto (Bld)Ordered By: Avani Eduardo on 09-29-2024 Immature granulocytes/100 WBC (Bld) 0.600 % 0.0-0.9 [facility] Comment on above: IG% - Immature Granu locytes (promyelocytes, myelocytes and metamyelocytes) > 1% indicates that a LEFT SHIFT is Present. Lymphocytes Auto (Unsp spec) [#/Vol]Ordered By: Avani Eduardo on 09-29-2024 Lymphocytes (Bld) [#/Vol] 2.76 10*3/uL 0.83-4.51 [facility] MCV (mean corpuscular volume ) determinationOrdered By: Avani Eduardo on 09-29-2024 MCV (RBC) [Entitic vol] 93.1 fL Normal 80-94 [facility] Comment on above: Performed By: #### L 100.0100, L501.6710 #### [facility] [address] [place], [address] Mean corpuscular hemoglobin (MCH) determinationOrdered By: Avani Eduardo on 09-29-2024 MCH (RBC) [Entitic mass] 31.0 pg Normal 27.0-32.0 [facility] Comment on above: Performed By: #### L 100.0100, L501.6710 #### [facility] [address] [place], [address] Mean corpuscular hemoglobin concentration (MCHC) determinationOrdered By: Avani Eduardo on 09-29-2024 MCHC (RBC) [Mass/Vol] 33.2 g/dL Normal 32-36 [facility] Comment on above: Performed By: #### L 100.0100, L501.6710 #### [facility] [address] [place], [address] Mean platelet volume determi nationOrdered By: Avani Eduardo on 09-29-2024 Platelet mean volume (Bld) [Entitic vol] 9.4 fL Normal 6.2-12.0 [facility] Comment on above: Performed By: #### L 100.0100, L501.6710 #### [facility] [address] [place], [address] Monocyte percentageOrdered B y: Avani Eduardo on 09-29-2024 Monocytes/100 WBC (Bld) 14.1 % High 0-10 [facility] Comment on above: Performed By: #### L 100.0100, L501.6710 #### [facility] [address] [place], [address] Neutrophil percentageOrdered By: Avani Eduardo on 09-29-2024 Neutrophils/100 WBC (Bld) 43.2 % Low 47-70 [facility] Comment on above: Performed By: #### L 100.0100, L501.6710 #### [facility] [address] [place], [address] Nucleated red blood cell per centageOrdered By: Avani Eduardo on 09-29-2024 Nucleated RBC/100 WBC (Bld) [Ratio] 0 % 0-5 [facility] Platelet countOrdered By: Adriel Eduardo on 09-29-2024 Platelets (Bld) [#/Vol] 203 10*3/uL Normal 150-450 [facility] Comment on above: Performed By: #### L 100.0100, L501.6710 #### [facility] [address] [place], [address] White blood cell (WBC) count Ordered By: Avani Eduardo on 09-29-2024 WBC (Bld) [#/Vol] 7.1 10*3/uL Normal 4.4-11.0 [facility] Comment on above: Performed By: #### L 100.0100, L501.6710 #### [facility] [address] [place], [address] Thyroid Stim Hormone (TSH)on 08-01-2024 TSH 6.050 uIU/mL High 0.358-3.74 0 [facility] Comment on above: Order Comment: 304-2 Performed By: #### L 501.9985 #### [facility] [address] [place], [address] Hemoglobin A1con 06-28-2024 HbA1c (Bld) [Mass fraction] 7.6 % High 3.8-5.6 [facility] Comment on above: Order Comment: 304-2 Result Comment: Norm al < 5.7 % Prediabetic 5.7 - 6.4 % Diabetic >or= 6.5 % Please note range changes. Performed By: #### L 501.9985 #### [facility] [address] [place], [address] Valproic Acid (Depakene) Lev chandu 06-12-2024 VALPROIC ACID 38 ug/mL Low 50-100 [facility] Comment on above: Order Comment: 304-2 Performed By: #### L 501.5200, L100.0500, L500.2500 #### [facility] [address] [place], [address] Basophil percentageOrdered B y: Avani Eduardo on 01-10-2024 Bilirubin [Mass/Vol] 0.50 mg/dL 0.20-1.00 [facility] Comment on above: For patients on eltr ombopag therapy, use of Dimension [place] TBIL is not recommended. Chloride [Moles/Vol] 101 mmol/L 98-107 [facility] Glucose [Mass/Vol] 110 mg/dL 74-106 [facility] Comment on above: Fasting Glucose resu lt from 100 to 125 mg/dL suggests IMPAIRED HOMEOSTASIS per A.D.A. criteria. Hemoglobin (Bld) [Mass/Vol] 12.4 g/dL 13.0-16.5 [facility] Potassium [Moles/Vol] 3.1 mmol/L 3.5-5.1 [facility] Protein [Mass/Vol] 6.0 g/dL 6.4-8.2 [facility] Sodium [Moles/Vol] 139 mmol/L 136-145 [facility] WBC (Bld) [#/Vol] 5.9 10*3/uL 4.4-11.0 [facility] Determination of erythrocyte mean corpuscular volume (MCV)Ordered By: Avani Eduardo on 01-10-2024 MCV (RBC) [Entitic vol] 92.2 fL 80-94 [facility] Erythrocyte distribution wid th ratioOrdered By: Avani Eduardo on 01-10-2024 Erythrocyte distribution width (RBC) [Ratio] 13.1 % 11.6-14.6 [facility] Erythrocyte distribution wid th standard deviationOrdered By: Avanigómez Eduardo on 01-10-2024 Erythrocyte distribution width (RBC) [Entitic vol] 44.1 fL 35.1-43.9 [facility] Hematocrit Auto (Bld) [Volum e fraction]Ordered By: Avani Eduardo on 01-10-2024 Hematocrit (Bld) [Volume fraction] 37.7 % 40-54 [facility] - Chemistry and C hemistry - challengeOrdered By: Avani Eduardo on 01-10-2024 Albumin/Globulin [Mass ratio] 0.8 {ratio} 0.9-2.4 [facility] ALP [Catalytic activity/Vol] 55 U/L 45-117 [facility] ALT [Catalytic activity/Vol] 20 U/L 16-61 [facility] CO2 [Moles/Vol] 32.0 mmol/L 21.0-32.0 [facility] Globulin (S) [Mass/Vol] 3.4 g/dL 2.2-4.2 [facility] Magnesium [Mass/Vol] 2.4 mg/dL 1.6-2.6 [facility] Urea nitrogen/Creatinine [Mass ratio] 20.2 mg/mg 10-20 [facility] - Hematology and Cell countsOrdered By: Avani Eduardo on 01-10-2024 MCH (RBC) [Entitic mass] 30.3 pg 27.0-32.0 [facility] MCHC (RBC) [Mass/Vol] 32.9 g/dL 32-36 [facility] Platelet mean volume (Bld) [Entitic vol] 8.9 fL 6.2-12.0 [facility] Platelets (Bld) [#/Vol] 175 10*3/uL 150-450 [facility] No Panel InformationOrdered By: Avani Eduardo on 01-10-2024 Estimated GFR (MDRD) Amer 156 mL/min >60 [facility] Comment on above: GFR Calc Estimated GFR (MDRD) Non-Af Amer 129 mL/min >60 [facility] Comment on above: Non- GFR Calc RBC Auto (Bld) [#/Vol]Ordere d By: Avani Eduardo on 01-10-2024 RBC (Bld) [#/Vol] 4.09 10*6/uL 4.6-6.2 [facility] Serum or plasma calcium minda urement (mass/volume)Ordered By: Avani Eduardo on 01-10-2024 Calcium [Mass/Vol] 8.6 mg/dL 8.5-10.1 [facility] Serum or plasma creatinine m easurement (mass/volume)Ordered By: Avani Eduardo on 01-10-2024 Creatinine [Mass/Vol] 0.64 mg/dL 0.70-1.30 [facility] Comment on above: The validity of the calculated GFR & GFRAA in patients over 70 years has not been determined. Clinical correlation is essential. Serum or plasma urea nitroge n measurement (mass/volume)Ordered By: Avani Eduardo on 01-10-2024 Urea nitrogen [Mass/Vol] 13 mg/dL 7-18 [facility] Thin prep Papanicolaou smear with manual screeningOrdered By: Avani Eduardo on 01-10-2024 Thin prep Papanicolaou smear with manual screening 2.6 g/dL 3.2-5.0 [facility] Thin prep Papanicolaou smear with manual screening 26 U/L 15-37 [facility] Thin prep Papanicolaou smear with manual screening 6 5-15 [facility] Basophil percentageOrdered B y: Avani Eduardo on 01-03-2024 Bilirubin [Mass/Vol] 0.50 mg/dL 0.20-1.00 [facility] Comment on above: For patients on eltr ombopag therapy, use of [employer] [place] TBIL is not recommended. Chloride [Moles/Vol] 103 mmol/L 98-107 [facility] Glucose [Mass/Vol] 131 mg/dL 74-106 [facility] Comment on above: Fasting Glucose resu lt greater than or equal to 126 mg/dL suggests DIABETES MELLITUS per A.D.A. criteria. Hemoglobin (Bld) [Mass/Vol] 12.1 g/dL 13.0-16.5 [facility] Potassium [Moles/Vol] 3.2 mmol/L 3.5-5.1 [facility] Protein [Mass/Vol] 5.8 g/dL 6.4-8.2 [facility] Sodium [Moles/Vol] 139 mmol/L 136-145 [facility] WBC (Bld) [#/Vol] 5.4 10*3/uL 4.4-11.0 [facility] Determination of erythrocyte mean corpuscular volume (MCV)Ordered By: Avani Eduardo on 01-03-2024 MCV (RBC) [Entitic vol] 92.0 fL 80-94 [facility] Erythrocyte distribution wid th ratioOrdered By: Avani Eduardo on 01-03-2024 Erythrocyte distribution width (RBC) [Ratio] 13.2 % 11.6-14.6 [facility] Erythrocyte distribution wid th standard deviationOrdered By: Avani Eduardo on 01-03-2024 Erythrocyte distribution width (RBC) [Entitic vol] 45.0 fL 35.1-43.9 [facility] Hematocrit Auto (Bld) [Volum e fraction]Ordered By: Avani Eduardo on 01-03-2024 Hematocrit (Bld) [Volume fraction] 35.8 % 40-54 [facility] - Chemistry and C hemistry - challengeOrdered By: Avnaigómez Eduardo on 01-03-2024 Albumin/Globulin [Mass ratio] 0.8 {ratio} 0.9-2.4 [facility] ALP [Catalytic activity/Vol] 52 U/L 45-117 [facility] ALT [Catalytic activity/Vol] 18 U/L 16-61 [facility] CO2 [Moles/Vol] 31.0 mmol/L 21.0-32.0 [facility] Globulin (S) [Mass/Vol] 3.3 g/dL 2.2-4.2 [facility] Magnesium [Mass/Vol] 2.2 mg/dL 1.6-2.6 [facility] Urea nitrogen/Creatinine [Mass ratio] 20.9 mg/mg 10-20 [facility] - Hematology and Cell countsOrdered By: Avani Eduardo on 01-03-2024 MCH (RBC) [Entitic mass] 31.1 pg 27.0-32.0 [facility] MCHC (RBC) [Mass/Vol] 33.8 g/dL 32-36 [facility] Platelet mean volume (Bld) [Entitic vol] 9.3 fL 6.2-12.0 [facility] Platelets (Bld) [#/Vol] 140 10*3/uL 150-450 [facility] No Panel InformationOrdered By: Avani Eduardo on 01-03-2024 Estimated GFR (MDRD) Amer 162 mL/min >60 [facility] Comment on above: GFR Calc Estimated GFR (MDRD) Non-Af Amer 134 mL/min >60 [facility] Comment on above: Non- GFR Calc RBC Auto (Bld) [#/Vol]Ordere d By: Avani Eduardo on 01-03-2024 RBC (Bld) [#/Vol] 3.89 10*6/uL 4.6-6.2 [facility] Serum or plasma calcium minda urement (mass/volume)Ordered By: Avani Eduardo on 01-03-2024 Calcium [Mass/Vol] 8.7 mg/dL 8.5-10.1 [facility] Serum or plasma creatinine m easurement (mass/volume)Ordered By: Avani Eduardo on 01-03-2024 Creatinine [Mass/Vol] 0.62 mg/dL 0.70-1.30 [facility] Comment on above: The validity of the calculated GFR & GFRAA in patients over 70 years has not been determined. Clinical correlation is essential. Serum or plasma urea nitroge n measurement (mass/volume)Ordered By: Avani Eduardo on 01-03-2024 Urea nitrogen [Mass/Vol] 13 mg/dL 7-18 [facility] Thin prep Papanicolaou smear with manual screeningOrdered By: Avani Eduardo on 01-03-2024 Thin prep Papanicolaou smear with manual screening 2.5 g/dL 3.2-5.0 [facility] Thin prep Papanicolaou smear with manual screening 22 U/L 15-37 [facility] Thin prep Papanicolaou smear with manual screening 5 5-15 [facility] Serum or plasma thyroid stim ulating hormone (TSH) measurement (units/volume)Ordered By: Avani Eduardo on 12-15-2023 TSH Qn 8.74 uIU/mL 0.358-3.74 [facility] Basophil percentageOrdered B y: Avani Eduardo on 11-04-2023 Bilirubin [Mass/Vol] 0.40 mg/dL 0.20-1.00 [facility] Comment on above: For patients on eltr ombopag therapy, use of [place] TBIL is not recommended. Protein [Mass/Vol] 6.9 g/dL 6.4-8.2 [facility] Direct bilirubinOrdered By: Avani Eduardo on 11-04-2023 Bilirubin.direct [Mass/Vol] 0.13 mg/dL 0.00-0.30 [facility] - Chemistry and C hemistry - challengeOrdered By: Avani Eduardo on 11-04-2023 ALP [Catalytic activity/Vol] 66 U/L 45-117 [facility] ALT [Catalytic activity/Vol] 28 U/L 16-61 [facility] Globulin (S) [Mass/Vol] 4.0 g/dL 2.2-4.2 [facility] Thin prep Papanicolaou smear with manual screeningOrdered By: Avani Eduardo on 11-04-2023 Thin prep Papanicolaou smear with manual screening 2.9 g/dL 3.2-5.0 [facility] Thin prep Papanicolaou smear with manual screening 22 U/L 15-37 [facility] Absolute lymphocyte countOrd ered By: Avani Eduardo on 10-20-2023 Lymphocytes Auto (Unsp spec) [#/Vol] 2.41 10*3/uL 0.83-4.51 [facility] Automated lymphocyte count a s percentage of total leukocytesOrdered By: Avani Eduardo on 10-20-2023 Lymphocytes/100 WBC Auto (Unsp spec) 34.2 % 19-41 [facility] Basophil percentageOrdered B y: Avani Eduardo on 10-20-2023 Basophils/100 WBC (Bld) 0.6 % 0-1 [facility] Chloride [Moles/Vol] 101 mmol/L 98-107 [facility] Eosinophils/100 WBC (Bld) 2.0 % 0-5 [facility] Glucose [Mass/Vol] 142 mg/dL 74-106 [facility] Comment on above: Fasting Glucose resu lt greater than or equal to 126 mg/dL suggests DIABETES MELLITUS per A.D.A. criteria. Hemoglobin (Bld) [Mass/Vol] 14.2 g/dL 13.0-16.5 [facility] Monocytes/100 WBC (Bld) 12.8 % 0-10 [facility] Neutrophils (Bld) [#/Vol] 3.5 10*3/uL 2.0-7.7 [facility] Neutrophils/100 WBC (Bld) 49.5 % 47-70 [facility] Potassium [Moles/Vol] 3.6 mmol/L 3.5-5.1 [facility] Sodium [Moles/Vol] 139 mmol/L 136-145 [facility] WBC (Bld) [#/Vol] 7.0 10*3/uL 4.4-11.0 [facility] Determination of erythrocyte mean corpuscular volume (MCV)Ordered By: Avani Eduardo on 10-20-2023 MCV (RBC) [Entitic vol] 91.9 fL 80-94 [facility] Erythrocyte distribution wid th ratioOrdered By: Avani Eduardo on 10-20-2023 Erythrocyte distribution width (RBC) [Ratio] 13.2 % 11.6-14.6 [facility] Erythrocyte distribution wid th standard deviationOrdered By: Avani Eduardo on 10-20-2023 Erythrocyte distribution width (RBC) [Entitic vol] 44.6 fL 35.1-43.9 [facility] Hematocrit Auto (Bld) [Volum e fraction]Ordered By: Avani Eduardo on 10-20-2023 Hematocrit (Bld) [Volume fraction] 43.0 % 40-54 [facility] Immature granulocytes/100 WB C Auto (Bld)Ordered By: Avani Eduardo on 10-20-2023 Immature granulocytes/100 WBC (Bld) 0.900 % 0.0-0.9 [facility] Comment on above: IG% - Immature Granu locytes (promyelocytes, myelocytes and metamyelocytes) > 1% indicates that a LEFT SHIFT is Present. Laboratory - Chemistry and C hemistry - challengeOrdered By: Avani Eduardo on 10-20-2023 CO2 [Moles/Vol] 33.0 mmol/L 21.0-32.0 [facility] Urea nitrogen/Creatinine [Mass ratio] 16.5 mg/mg 10-20 [facility] - Hematology and Cell countsOrdered By: Avani Eduardo on 10-20-2023 MCH (RBC) [Entitic mass] 30.3 pg 27.0-32.0 [facility] MCHC (RBC) [Mass/Vol] 33.0 g/dL 32-36 [facility] Nucleated RBC/100 WBC (Bld) [Ratio] 0 % 0-5 [facility] Platelets (Bld) [#/Vol] 197 10*3/uL 150-450 [facility] No Panel InformationOrdered By: Avani Eduardo on 10-20-2023 Estimated GFR (MDRD) Amer 114 mL/min >60 [facility] Comment on above: GFR Calc Estimated GFR (MDRD) Non-Af Amer 94 mL/min >60 [facility] Comment on above: Non- GFR Calc Platelet mean volume Riaz-Ec ker (Bld) [Entitic vol]Ordered By: Avani Eduardo on 10-20-2023 Platelet mean volume (Bld) [Entitic vol] 8.6 fL 6.2-12.0 [facility] RBC Auto (Bld) [#/Vol]Ordere d By: Avani Eduardo on 10-20-2023 RBC (Bld) [#/Vol] 4.68 10*6/uL 4.6-6.2 [facility] Serum or plasma calcium minda urement (mass/volume)Ordered By: Avani Eduardo on 10-20-2023 Calcium [Mass/Vol] 9.4 mg/dL 8.5-10.1 [facility] Serum or plasma creatinine m easurement (mass/volume)Ordered By: Avani Eduardo on 10-20-2023 Creatinine [Mass/Vol] 0.85 mg/dL 0.70-1.30 [facility] Comment on above: The validity of the calculated GFR & GFRAA in patients over 70 years has not been determined. Clinical correlation is essential. Serum or plasma urea nitroge n measurement (mass/volume)Ordered By: Avani Eduardo on 10-20-2023 Urea nitrogen [Mass/Vol] 14 mg/dL 7-18 [facility] Thin prep Papanicolaou smear with manual screeningOrdered By: Avani Eduardo on 10-20-2023 Thin prep Papanicolaou smear with manual screening 5 5-15 [facility] - Chemistry and C hemistry - challengeOrdered By: Avani Eduardo on 10-11-2023 T4 [Mass/Vol] 10.8 ug/dL 4.5-12.1 [facility] No Panel InformationOrdered By: Avani Eduardo on 10-11-2023 Thyroid Stimulating Hormone (TSH) 5.65 uIU/mL 0.358-3.74 [facility] Basophil percentageOrdered B y: Avani Eduardo on 10-05-2023 Chloride [Moles/Vol] 105 mmol/L 98-107 [facility] Glucose [Mass/Vol] 95 mg/dL 74-106 [facility] Potassium [Moles/Vol] 3.7 mmol/L 3.5-5.1 [facility] Comment on above: Slight Hemolysis, Re sult may be falsely increased. Sodium [Moles/Vol] 139 mmol/L 136-145 [facility] - Chemistry and C hemistry - challengeOrdered By: Avani Eduardo on 10-05-2023 CO2 [Moles/Vol] 30.0 mmol/L 21.0-32.0 [facility] Magnesium [Mass/Vol] 2.5 mg/dL 1.6-2.6 [facility] Comment on above: Slight Hemolysis, Re sult may be falsely increased. Urea nitrogen/Creatinine [Mass ratio] 16.3 mg/mg 10-20 [facility] No Panel InformationOrdered By: Avani Eduardo on 10-05-2023 Estimated GFR (MDRD) Amer 134 mL/min >60 [facility] Comment on above: GFR Calc Estimated GFR (MDRD) Non-Af Amer 111 mL/min >60 [facility] Comment on above: Non- GFR Calc Serum or plasma calcium minda urement (mass/volume)Ordered By: Avani Eduardo on 10-05-2023 Calcium [Mass/Vol] 8.0 mg/dL 8.5-10.1 [facility] Serum or plasma creatinine m easurement (mass/volume)Ordered By: Avani Eduardo on 10-05-2023 Creatinine [Mass/Vol] 0.74 mg/dL 0.70-1.30 [facility] Comment on above: The validity of the calculated GFR & GFRAA in patients over 70 years has not been determined. Clinical correlation is essential. Serum or plasma urea nitroge n measurement (mass/volume)Ordered By: Avani Eduardo on 10-05-2023 Urea nitrogen [Mass/Vol] 12 mg/dL 7-18 [facility] Thin prep Papanicolaou smear with manual screeningOrdered By: Avani Eduardo on 10-05-2023 Thin prep Papanicolaou smear with manual screening 4 5-15 [facility] Absolute lymphocyte countOrd ered By: Avani Eduardo on 09-22-2023 Lymphocytes Auto (Unsp spec) [#/Vol] 2.51 10*3/uL 0.83-4.51 [facility] Basophil percentageOrdered B y: Avani Eduardo on 09-22-2023 Basophils/100 WBC (Bld) 0.5 % 0-1 [facility] Chloride [Moles/Vol] 107 mmol/L 98-107 [facility] Eosinophils/100 WBC (Bld) 1.7 % 0-5 [facility] Glucose [Mass/Vol] 123 mg/dL 74-106 [facility] Comment on above: Fasting Glucose resu lt from 100 to 125 mg/dL suggests IMPAIRED HOMEOSTASIS per A.D.A. criteria. Neutrophils (Bld) [#/Vol] 2.3 10*3/uL 2.0-7.7 [facility] Neutrophils/100 WBC (Bld) 38.7 % 47-70 [facility] Potassium [Moles/Vol] 3.7 mmol/L 3.5-5.1 [facility] Sodium [Moles/Vol] 143 mmol/L 136-145 [facility] WBC (Bld) [#/Vol] 5.8 10*3/uL 4.4-11.0 [facility] Blood erythrocytes count (nu mber/volume)Ordered By: Avani Eduardo on 09-22-2023 RBC (Bld) [#/Vol] 4.08 10*6/uL 4.6-6.2 [facility] Blood hemoglobin measurement (mass/volume)Ordered By: Avani Eduardo on 09-22-2023 Hemoglobin (Bld) [Mass/Vol] 12.6 g/dL 13.0-16.5 [facility] Blood lymphocytes/100 leukoc ytesOrdered By: Avani Eduardo on 09-22-2023 Lymphocytes/100 WBC (Bld) 43.1 % 19-41 [facility] Blood monocytes/100 leukocyt esOrdered By: Avani Eduardo on 09-22-2023 Monocytes/100 WBC (Bld) 14.8 % 0-10 [facility] Blood platelet mean volumeOr dered By: Avani Eduardo on 09-22-2023 Platelet mean volume (Bld) [Entitic vol] 8.8 fL 6.2-12.0 [facility] Determination of erythrocyte mean corpuscular volume (MCV)Ordered By: Avani Eduardo on 09-22-2023 MCV (RBC) [Entitic vol] 93.6 fL 80-94 [facility] Hematocrit Auto (Bld) [Volum e fraction]Ordered By: Avani Eduardo on 09-22-2023 Hematocrit (Bld) [Volume fraction] 38.2 % 40-54 [facility] - Chemistry and C hemistry - challengeOrdered By: Avani Eduardo on 09-22-2023 CO2 [Moles/Vol] 34.0 mmol/L 21.0-32.0 [facility] Natriuretic peptide B (Bld) [Mass/Vol] 7.4 pg/mL 0-100 [facility] Urea nitrogen/Creatinine [Mass ratio] 24.9 mg/mg 10-20 [facility] - Hematology and Cell countsOrdered By: Avani Eduardo on 09-22-2023 Erythrocyte distribution width (RBC) [Entitic vol] 45.8 fL 35.1-43.9 [facility] Erythrocyte distribution width (RBC) [Ratio] 13.3 % 11.6-14.6 [facility] Immature granulocytes/100 WBC (Bld) 1.200 % 0.0-0.9 [facility] Comment on above: IG% - Immature Granu locytes (promyelocytes, myelocytes and metamyelocytes) > 1% indicates that a LEFT SHIFT is Present. MCH (RBC) [Entitic mass] 30.9 pg 27.0-32.0 [facility] Nucleated RBC/100 WBC (Bld) [Ratio] 0 % 0-5 [facility] MCHC Auto (RBC) [Mass/Vol]Or dered By: Avani Eduardo on 09-22-2023 MCHC (RBC) [Mass/Vol] 33.0 g/dL 32-36 [facility] No Panel InformationOrdered By: Avani Eduardo on 09-22-2023 Estimated GFR (MDRD) Amer 146 mL/min >60 [facility] Comment on above: GFR Calc Estimated GFR (MDRD) Non-Af Amer 121 mL/min >60 [facility] Comment on above: Non- GFR Calc Platelets bldOrdered By: Ethan Eduardo on 09-22-2023 Platelets (Bld) [#/Vol] 170 10*3/uL 150-450 [facility] Serum or plasma calcium minda urement (mass/volume)Ordered By: Avani Eduardo on 09-22-2023 Calcium [Mass/Vol] 8.8 mg/dL 8.5-10.1 [facility] Serum or plasma creatinine m easurement (mass/volume)Ordered By: Avani Eduardo on 09-22-2023 Creatinine [Mass/Vol] 0.68 mg/dL 0.70-1.30 [facility] Comment on above: The validity of the calculated GFR & GFRAA in patients over 70 years has not been determined. Clinical correlation is essential. Serum or plasma urea nitroge n measurement (mass/volume)Ordered By: Avani Eduardo on 09-22-2023 Urea nitrogen [Mass/Vol] 17 mg/dL 7-18 [facility] Thin prep Papanicolaou smear with manual screeningOrdered By: Avani Eduardo on 09-22-2023 Thin prep Papanicolaou smear with manual screening 2 5-15 [facility] Basophil percentageOrdered B y: Avani Eduardo on 09-13-2023 Chloride [Moles/Vol] 105 mmol/L 98-107 [facility] Glucose [Mass/Vol] 100 mg/dL 74-106 [facility] Comment on above: Fasting Glucose resu lt from 100 to 125 mg/dL suggests IMPAIRED HOMEOSTASIS per A.D.A. criteria. Potassium [Moles/Vol] 4.3 mmol/L 3.5-5.1 [facility] Sodium [Moles/Vol] 139 mmol/L 136-145 [facility] - Chemistry and C hemistry - challengeOrdered By: Avani Eduardo on 09-13-2023 CO2 [Moles/Vol] 28.0 mmol/L 21.0-32.0 [facility] Urea nitrogen/Creatinine [Mass ratio] 21.8 mg/mg 10-20 [facility] No Panel InformationOrdered By: Avani Eduardo on 09-13-2023 Estimated GFR (MDRD) Amer 157 mL/min >60 [facility] Comment on above: GFR Calc Estimated GFR (MDRD) Non-Af Amer 130 mL/min >60 [facility] Comment on above: Non- GFR Calc Serum or plasma calcium minda urement (mass/volume)Ordered By: Avani Eduardo on 09-13-2023 Calcium [Mass/Vol] 8.4 mg/dL 8.5-10.1 [facility] Serum or plasma creatinine m easurement (mass/volume)Ordered By: Avani Eduardo on 09-13-2023 Creatinine [Mass/Vol] 0.64 mg/dL 0.70-1.30 [facility] Comment on above: The validity of the calculated GFR & GFRAA in patients over 70 years has not been determined. Clinical correlation is essential. Serum or plasma urea nitroge n measurement (mass/volume)Ordered By: Avani Eduardo on 09-13-2023 Urea nitrogen [Mass/Vol] 14 mg/dL 7-18 [facility] Thin prep Papanicolaou smear with manual screeningOrdered By: Avani Eduardo on 09-13-2023 Thin prep Papanicolaou smear with manual screening 6 5-15 [facility] No Panel InformationOrdered By: Avani Eduardo on 08-30-2023 Levetiracetam (Keppra) Level 25.0 ug/mL 10.0-40.0 [facility] Comment on above: Performed at: [address], [place], [place] [id number] Director: Jess Bess MD, Phone: [phone] Absolute lymphocyte countOrd ered By: Avani Eduardo on 08-23-2023 Lymphocytes Auto (Unsp spec) [#/Vol] 1.90 10*3/uL 0.83-4.51 [facility] Basophil percentageOrdered B y: Avani Eduardo on 08-23-2023 Basophils/100 WBC (Bld) 0.7 % 0-1 [facility] Chloride [Moles/Vol] 104 mmol/L 98-107 [facility] Eosinophils/100 WBC (Bld) 2.2 % 0-5 [facility] Glucose [Mass/Vol] 122 mg/dL 74-106 [facility] Comment on above: Fasting Glucose resu lt from 100 to 125 mg/dL suggests IMPAIRED HOMEOSTASIS per A.D.A. criteria. Neutrophils (Bld) [#/Vol] 2.5 10*3/uL 2.0-7.7 [facility] Neutrophils/100 WBC (Bld) 45.6 % 47-70 [facility] Potassium [Moles/Vol] 3.7 mmol/L 3.5-5.1 [facility] Sodium [Moles/Vol] 142 mmol/L 136-145 [facility] WBC (Bld) [#/Vol] 5.6 10*3/uL 4.4-11.0 [facility] Blood erythrocytes count (nu mber/volume)Ordered By: Avani Eduardo on 08-23-2023 RBC (Bld) [#/Vol] 4.12 10*6/uL 4.6-6.2 [facility] Blood hemoglobin measurement (mass/volume)Ordered By: Avani Eduardo on 08-23-2023 Hemoglobin (Bld) [Mass/Vol] 12.3 g/dL 13.0-16.5 [facility] Blood lymphocytes/100 leukoc ytesOrdered By: Avani Eduardo on 08-23-2023 Lymphocytes/100 WBC (Bld) 34.2 % 19-41 [facility] Blood monocytes/100 leukocyt esOrdered By: Avani Eduardo on 08-23-2023 Monocytes/100 WBC (Bld) 16.0 % 0-10 [facility] [facility] Blood platelet mean volumeOr dered By: Avani Eduardo on 08-23-2023 Platelet mean volume (Bld) [Entitic vol] 9.3 fL 6.2-12.0 [facility] Determination of erythrocyte mean corpuscular volume (MCV)Ordered By: Avani Eduardo on 08-23-2023 MCV (RBC) [Entitic vol] 93.7 fL 80-94 [facility] Hematocrit Auto (Bld) [Volum e fraction]Ordered By: Avani Eduardo on 08-23-2023 Hematocrit (Bld) [Volume fraction] 38.6 % 40-54 [facility] - Chemistry and C hemistry - challengeOrdered By: Avani Eduardo on 08-23-2023 CO2 [Moles/Vol] 31.0 mmol/L 21.0-32.0 [facility] Magnesium [Mass/Vol] 2.6 mg/dL 1.6-2.6 [facility] Urea nitrogen/Creatinine [Mass ratio] 26.0 mg/mg 10-20 [facility] - Hematology and Cell countsOrdered By: Avani Eduardo on 08-23-2023 Erythrocyte distribution width (RBC) [Entitic vol] 46.4 fL 35.1-43.9 [facility] Erythrocyte distribution width (RBC) [Ratio] 13.4 % 11.6-14.6 [facility] Immature granulocytes/100 WBC (Bld) 1.300 % 0.0-0.9 [facility] Comment on above: IG% - Immature Granu locytes (promyelocytes, myelocytes and metamyelocytes) > 1% indicates that a LEFT SHIFT is Present. MCH (RBC) [Entitic mass] 29.9 pg 27.0-32.0 [facility] Nucleated RBC/100 WBC (Bld) [Ratio] 0 % 0-5 [facility] MCHC Auto (RBC) [Mass/Vol]Or dered By: Avani Eduardo on 08-23-2023 MCHC (RBC) [Mass/Vol] 31.9 g/dL 32-36 [facility] No Panel InformationOrdered By: Avani Eduardo on 08-23-2023 Estimated GFR (MDRD) Amer 144 mL/min >60 [facility] Comment on above: GFR Calc Estimated GFR (MDRD) Non-Af Amer 119 mL/min >60 [facility] Comment on above: Non- GFR Calc Levetiracetam (Keppra) Level 51.4 ug/mL 10.0-40.0 [facility] Comment on above: Performed at: [address] [id number] Director: Jess Bess MD, Phone: [phone] Valproic Acid (Depakene) Level 60 ug/mL 50-100 [facility] Platelets bldOrdered By: Ethan Eduardo on 08-23-2023 Platelets (Bld) [#/Vol] 174 10*3/uL 150-450 [facility] Serum or plasma calcium minda urement (mass/volume)Ordered By: Avani Eduardo on 08-23-2023 Calcium [Mass/Vol] 8.5 mg/dL 8.5-10.1 [facility] Serum or plasma creatinine m easurement (mass/volume)Ordered By: Avani Eduardo on 08-23-2023 Creatinine [Mass/Vol] 0.69 mg/dL 0.70-1.30 [facility] Comment on above: The validity of the calculated GFR & GFRAA in patients over 70 years has not been determined. Clinical correlation is essential. Serum or plasma urea nitroge n measurement (mass/volume)Ordered By: Avani Eduardo on 08-23-2023 Urea nitrogen [Mass/Vol] 18 mg/dL 7-18 [facility] Serum or plasma uric acid me asurement (mass/volume)Ordered By: Avani Eduardo on 08-23-2023 Urate [Mass/Vol] 5.6 mg/dL 3.5-7.2 [facility] Comment on above: The drugs N-Acetylcy steine and Metamizole may falsely depress this assay. Thin prep Papanicolaou smear with manual screeningOrdered By: Avani Eduardo on 08-23-2023 Thin prep Papanicolaou smear with manual screening 7 5-15 [facility] Basophil percentageOrdered B y: Avani Eduardo on 05-24-2023 Cholesterol [Mass/Vol] 143 mg/dL <200 [facility] Comment on above: <200 mg/dL Desirable 200-240 mg/dL Borderline >240 mg/dL High Risk Triglyceride [Mass/Vol] 102 mg/dL <199 [facility] Comment on above: The drugs N-Acetylcy steine and Metamizole may falsely depress this assay.Serum Triglycerides Reference Interval Normal <150 mg/dL Borderline high 150 - 199 mg/dL High 200 - 499 mg/dL Very High > or = 500 mg/dL Serum or plasma cholesterol in HDL measurement (mass/volume)Ordered By: Avani Eduardo on 05-24-2023 Cholesterol in HDL [Mass/Vol] 54 mg/dL >40 [facility] Comment on above: The drugs N-Acetylcy steine and Metamizole may falsely depress this assay. Reference Range HDL <40 mg/dL Low HDL Cholesterol HDL >or= 60 mg/dL High HDL Cholesterol Serum or plasma cholesterol in VLDL measurement (mass/volume)Ordered By: Avani Eduardo on 05-24-2023 Cholesterol in VLDL [Mass/Vol] 20 mg/dL 5-40 [facility] Serum or plasma low density lipoprotein (LDL) cholesterol measurement (mass/volume)Ordered By: Avani Eduardo on 05-24-2023 Cholesterol in LDL [Mass/Vol] 69 mg/dL 0-130 [facility] Basophil percentageOrdered B y: Avani Eduardo on 02-16-2023 Chloride [Moles/Vol] 106 mmol/L 98-107 [facility] Glucose [Mass/Vol] 61 mg/dL 74-106 [facility] Potassium [Moles/Vol] 4.1 mmol/L 3.5-5.1 [facility] Sodium [Moles/Vol] 142 mmol/L 136-145 [facility] WBC (Bld) [#/Vol] 5.5 10*3/uL 4.4-11.0 [facility] Blood erythrocytes count (nu mber/volume)Ordered By: Avani Eduardo on 02-16-2023 RBC (Bld) [#/Vol] 3.87 10*6/uL 4.6-6.2 [facility] Blood hemoglobin measurement (mass/volume)Ordered By: Avani Eduardo on 02-16-2023 Hemoglobin (Bld) [Mass/Vol] 12.7 g/dL 13.0-16.5 [facility] Blood platelet mean volumeOr dered By: Avani Eduardo on 02-16-2023 Platelet mean volume (Bld) [Entitic vol] 9.0 fL 6.2-12.0 [facility] Determination of erythrocyte mean corpuscular volume (MCV)Ordered By: Avani Eduardo on 02-16-2023 MCV (RBC) [Entitic vol] 104.4 fL 80-94 [facility] Hematocrit Auto (Bld) [Volum e fraction]Ordered By: Avani Eduardo on 02-16-2023 Hematocrit (Bld) [Volume fraction] 40.4 % 40-54 [facility] - Chemistry and C hemistry - challengeOrdered By: Avani Eduardo on 02-16-2023 CO2 [Moles/Vol] 27.0 mmol/L 21.0-32.0 [facility] Magnesium [Mass/Vol] 2.6 mg/dL 1.6-2.6 [facility] Urea nitrogen/Creatinine [Mass ratio] 26.0 mg/mg 10-20 [facility] - Hematology and Cell countsOrdered By: Avanigómez Eduardo on 02-16-2023 Erythrocyte distribution width (RBC) [Entitic vol] 46.1 fL 35.1-43.9 [facility] Erythrocyte distribution width (RBC) [Ratio] 11.9 % 11.6-14.6 [facility] MCH (RBC) [Entitic mass] 32.8 pg 27.0-32.0 [facility] MCHC Auto (RBC) [Mass/Vol]Or dered By: Avani Eduardo on 02-16-2023 MCHC (RBC) [Mass/Vol] 31.4 g/dL 32-36 [facility] No Panel InformationOrdered By: Avani Eduardo on 02-16-2023 Estimated GFR (MDRD) Amer 178 mL/min >60 [facility] Comment on above: GFR Calc Estimated GFR (MDRD) Non-Af Amer 147 mL/min >60 [facility] Comment on above: Non- GFR Calc Platelets bldOrdered By: Ethan Eduardo on 02-16-2023 Platelets (Bld) [#/Vol] 141 10*3/uL 150-450 [facility] Serum or plasma calcium minda urement (mass/volume)Ordered By: Avani Eduardo on 02-16-2023 Calcium [Mass/Vol] 8.7 mg/dL 8.5-10.1 [facility] Serum or plasma creatinine m easurement (mass/volume)Ordered By: Avani Eduardo on 02-16-2023 Creatinine [Mass/Vol] 0.58 mg/dL 0.70-1.30 [facility] Comment on above: The validity of the calculated GFR & GFRAA in patients over 70 years has not been determined. Clinical correlation is essential. Serum or plasma urea nitroge n measurement (mass/volume)Ordered By: Avani Eduardo on 02-16-2023 Urea nitrogen [Mass/Vol] 15 mg/dL 7-18 [facility] Thin prep Papanicolaou smear with manual screeningOrdered By: Avani Eduardo on 02-16-2023 Thin prep Papanicolaou smear with manual screening 9 5-15 [facility] Basophil percentageOrdered B y: Avani Eduardo on 02-09-2023 Chloride [Moles/Vol] 106 mmol/L 98-107 [facility] Glucose [Mass/Vol] 95 mg/dL 74-106 [facility] Potassium [Moles/Vol] 3.9 mmol/L 3.5-5.1 [facility] Sodium [Moles/Vol] 143 mmol/L 136-145 [facility] WBC (Bld) [#/Vol] 7.2 10*3/uL 4.4-11.0 [facility] Blood erythrocytes count (nu mber/volume)Ordered By: Avani Eduardo on 02-09-2023 RBC (Bld) [#/Vol] 3.98 10*6/uL 4.6-6.2 [facility] Blood hemoglobin measurement (mass/volume)Ordered By: Avani Eduardo on 02-09-2023 Hemoglobin (Bld) [Mass/Vol] 13.1 g/dL 13.0-16.5 [facility] Blood platelet mean volumeOr dered By: Avani Eduardo on 02-09-2023 Platelet mean volume (Bld) [Entitic vol] 9.3 fL 6.2-12.0 [facility] Determination of erythrocyte mean corpuscular volume (MCV)Ordered By: Avani Eduardo on 02-09-2023 MCV (RBC) [Entitic vol] 103.0 fL 80-94 [facility] Hematocrit Auto (Bld) [Volum e fraction]Ordered By: Avani Eduardo on 02-09-2023 Hematocrit (Bld) [Volume fraction] 41.0 % 40-54 [facility] - Chemistry and C hemistry - challengeOrdered By: Avani Eduardo on 02-09-2023 CO2 [Moles/Vol] 31.0 mmol/L 21.0-32.0 [facility] Magnesium [Mass/Vol] 2.7 mg/dL 1.6-2.6 [facility] Urea nitrogen/Creatinine [Mass ratio] 21.5 mg/mg 10-20 [facility] - Hematology and Cell countsOrdered By: Avani Eduardo on 02-09-2023 Erythrocyte distribution width (RBC) [Entitic vol] 46.2 fL 35.1-43.9 [facility] Erythrocyte distribution width (RBC) [Ratio] 12.2 % 11.6-14.6 [facility] MCH (RBC) [Entitic mass] 32.9 pg 27.0-32.0 [facility] MCHC Auto (RBC) [Mass/Vol]Or dered By: Avani Eduardo on 02-09-2023 MCHC (RBC) [Mass/Vol] 32.0 g/dL 32-36 [facility] No Panel InformationOrdered By: Avani Eduardo on 02-09-2023 Estimated GFR (MDRD) Amer 155 mL/min >60 [facility] Comment on above: GFR Calc Estimated GFR (MDRD) Non-Af Amer 128 mL/min >60 [facility] Comment on above: Non- GFR Calc Platelets bldOrdered By: Ethan Eduardo on 02-09-2023 Platelets (Bld) [#/Vol] 185 10*3/uL 150-450 [facility] Serum or plasma calcium minda urement (mass/volume)Ordered By: Avani Eduardo on 02-09-2023 Calcium [Mass/Vol] 9.2 mg/dL 8.5-10.1 [facility] Serum or plasma creatinine m easurement (mass/volume)Ordered By: Avani Eduardo on 02-09-2023 Creatinine [Mass/Vol] 0.65 mg/dL 0.70-1.30 [facility] Comment on above: The validity of the calculated GFR & GFRAA in patients over 70 years has not been determined. Clinical correlation is essential. Serum or plasma urea nitroge n measurement (mass/volume)Ordered By: Avani Eduardo on 02-09-2023 Urea nitrogen [Mass/Vol] 14 mg/dL 7-18 [facility] Thin prep Papanicolaou smear with manual screeningOrdered By: Avanigómez Eduardo on 02-09-2023 Thin prep Papanicolaou smear with manual screening 6 5-15 [facility] Basophil percentageOrdered B y: [facility] on 02-05-2023 Ammonia (P) [Moles/Vol] 31.0 umol/L -32 [facility] No Panel InformationOrdered By: [facility] on 02-05-2023 Levetiracetam (Keppra) Level 33.4 ug/mL 10.0-40.0 [facility] Comment on above: Performed at: - [address] [id number] Director: Jess Bess MD, Phone: [phone] Valproic Acid (Depakene) Level 81 ug/mL 50-100 [facility] Absolute lymphocyte countOrd ered By: Dr. Wilder on 01-18-2023 Lymphocytes Auto (Unsp spec) [#/Vol] 2.09 10*3/uL 0.83-4.51 [facility] Basophil percentageOrdered B y: Dr. Wilder on 01-18-2023 Ammonia (P) [Moles/Vol] 73.0 umol/L 11-32 [facility] Basophils/100 WBC (Bld) 0.7 % 0-1 [facility] Bilirubin [Mass/Vol] 0.20 mg/dL 0.20-1.00 [facility] Comment on above: For patients on eltr ombopag therapy, use of Dimension [place] TBIL is not recommended. Chloride [Moles/Vol] 110 mmol/L 98-107 [facility] Eosinophils/100 WBC (Bld) 1.7 % 0-5 [facility] Glucose [Mass/Vol] 102 mg/dL 74-106 [facility] Comment on above: Fasting Glucose resu lt from 100 to 125 mg/dL suggests IMPAIRED HOMEOSTASIS per A.D.A. criteria. Neutrophils (Bld) [#/Vol] 2.4 10*3/uL 2.0-7.7 [facility] Neutrophils/100 WBC (Bld) 44.0 % 47-70 [facility] Potassium [Moles/Vol] 4.0 mmol/L 3.5-5.1 [facility] Protein [Mass/Vol] 4.5 g/dL 6.4-8.2 [facility] Sodium [Moles/Vol] 142 mmol/L 136-145 [facility] WBC (Bld) [#/Vol] 5.4 10*3/uL 4.4-11.0 [facility] Blood erythrocytes count (nu mber/volume)Ordered By: Dr. Wilder on 01-18-2023 RBC (Bld) [#/Vol] 2.97 10*6/uL 4.6-6.2 [facility] Blood hemoglobin measurement (mass/volume)Ordered By: Dr. Wilder on 01-18-2023 Hemoglobin (Bld) [Mass/Vol] 9.9 g/dL 13.0-16.5 [facility] Blood lymphocytes/100 leukoc ytesOrdered By: Dr. Wilder on 01-18-2023 Lymphocytes/100 WBC (Bld) 38.8 % 19-41 [facility] Blood monocytes/100 leukocyt esOrdered By: Dr. Wilder on 01-18-2023 Monocytes/100 WBC (Bld) 13.7 % 0-10 [facility] Blood platelet mean volumeOr dered By: Dr. Wilder on 01-18-2023 Platelet mean volume (Bld) [Entitic vol] 8.7 fL 6.2-12.0 [facility] Determination of erythrocyte mean corpuscular volume (MCV)Ordered By: Dr. Wilder on 01-18-2023 MCV (RBC) [Entitic vol] 104.7 fL 80-94 [facility] Hematocrit Auto (Bld) [Volum e fraction]Ordered By: Dr. Wilder on 01-18-2023 Hematocrit (Bld) [Volume fraction] 31.1 % 40-54 [facility] - Chemistry and C hemistry - challengeOrdered By: Dr. Wilder on 01-18-2023 ALP [Catalytic activity/Vol] 38 U/L 45-117 [facility] ALT [Catalytic activity/Vol] 10 U/L 16-61 [facility] CO2 [Moles/Vol] 29.0 mmol/L 21.0-32.0 [facility] Globulin (S) [Mass/Vol] 2.4 g/dL 2.2-4.2 [facility] Urea nitrogen/Creatinine [Mass ratio] 30.9 mg/mg 10-20 [facility] - Hematology and Cell countsOrdered By: Dr. Wilder on 01-18-2023 Erythrocyte distribution width (RBC) [Entitic vol] 52.2 fL 35.1-43.9 [facility] Erythrocyte distribution width (RBC) [Ratio] 13.4 % 11.6-14.6 [facility] Immature granulocytes/100 WBC (Bld) 1.100 % 0.0-0.9 [facility] Comment on above: IG% - Immature Granu locytes (promyelocytes, myelocytes and metamyelocytes) > 1% indicates that a LEFT SHIFT is Present. MCH (RBC) [Entitic mass] 33.3 pg 27.0-32.0 [facility] Nucleated RBC/100 WBC (Bld) [Ratio] 0 % 0-5 [facility] MCHC Auto (RBC) [Mass/Vol]Or dered By: Dr. Wilder on 01-18-2023 MCHC (RBC) [Mass/Vol] 31.8 g/dL 32-36 [facility] No Panel InformationOrdered By: Dr. Wilder on 01-18-2023 Estimated Creatinine Clearance Calc 52.95 ml/min [facility] Estimated GFR (MDRD) Amer 217 mL/min >60 [facility] Comment on above: GFR Calc Estimated GFR (MDRD) Non-Af Amer 179 mL/min >60 [facility] Comment on above: Non- GFR Calc Platelets bldOrdered By: Dr. Wilder on 01-18-2023 Platelets (Bld) [#/Vol] 137 10*3/uL 150-450 [facility] Serum or plasma albumin minda urement (mass/volume)Ordered By: Dr. Wilder on 01-18-2023 Albumin [Mass/Vol] 2.1 g/dL 3.2-5.0 [facility] Serum or plasma albumin/glob ulin mass ratioOrdered By: Dr. Wilder on 01-18-2023 Albumin/Globulin [Mass ratio] 0.9 {ratio} 0.9-2.4 [facility] Serum or plasma calcium minda urement (mass/volume)Ordered By: Dr. Wilder on 01-18-2023 Calcium [Mass/Vol] 8.5 mg/dL 8.5-10.1 [facility] Serum or plasma creatinine m easurement (mass/volume)Ordered By: Dr. Wilder on 01-18-2023 Creatinine [Mass/Vol] 0.48 mg/dL 0.70-1.30 [facility] Comment on above: The validity of the calculated GFR & GFRAA in patients over 70 years has not been determined. Clinical correlation is essential. Serum or plasma urea nitroge n measurement (mass/volume)Ordered By: Dr. Wilder on 01-18-2023 Urea nitrogen [Mass/Vol] 15 mg/dL 7-18 [facility] Thin prep Papanicolaou smear with manual screeningOrdered By: Dr. Wilder on 01-18-2023 Thin prep Papanicolaou smear with manual screening 14 U/L 15-37 [facility] Thin prep Papanicolaou smear with manual screening 3 5-15 [facility] Assessment of wrist artery p atency prior to arterial punctureOrdered By: Dr. Wilder on 01-16-2023 Arterial patency Wrist artery --pre arterial puncture Positive [facility] Base excessOrdered By: Dr. Brodie arce on 01-16-2023 Base excess Calc (BldV) [Moles/Vol] 7 mmol/L -2-2 [facility] Basophil percentageOrdered B y: Dr. Wilder on 01-16-2023 Basophil percentage 31.9 mmol/L 22-26 [facility] Basophils/100 WBC (Bld) 94 % 95-99 [facility] CO2 (BldA) [Partial pressure ]Ordered By: Dr. Wilder on 01-16-2023 CO2 (Bld) [Partial pressure] 49.8 mm[Hg] 35-45 [facility] - Chemistry and C hemistry - challengeOrdered By: Dr. Wilder on 01-16-2023 Natriuretic peptide B (Bld) [Mass/Vol] 15.2 pg/mL 0-100 [facility] No Panel InformationOrdered By: Dr. Wilder on 01-16-2023 Valproic Acid (Depakene) Level 91 ug/mL 50-100 [facility] Blood Gas Oxygen Percent 21 [facility] Blood Gas Sample Site R Radial [facility] Blood Gas Specimen Type ART [facility] Blood Gas Total CO2 33 mmol/L [facility] Oxygen Delivery Device Room Air [facility] Oxygen (BldA) [Partial press ure]Ordered By: Dr. Wilder on 01-16-2023 Oxygen (Bld) [Partial pressure] 70 mmHG 75-100 [facility] pH measurementOrdered By: Dr Shanthi Wilder on 01-16-2023 pH (Unsp spec) 7.42 [pH] 7.35-7.45 [facility] Absolute lymphocyte countOrd ered By: Dr. Malik on 01-10-2023 Lymphocytes Auto (Unsp spec) [#/Vol] 2.65 10*3/uL 0.83-4.51 [facility] Basophil percentageOrdered B y: Dr. Malik on 01-10-2023 Basophil percentage 0 SEEN /hpf 0-5 [facility] Basophils/100 WBC (Bld) 0.8 % 0-1 [facility] Chloride [Moles/Vol] 105 mmol/L 98-107 [facility] Eosinophils/100 WBC (Bld) 1.7 % 0-5 [facility] Glucose [Mass/Vol] 83 mg/dL 74-106 [facility] Neutrophils (Bld) [#/Vol] 5.6 10*3/uL 2.0-7.7 [facility] Neutrophils/100 WBC (Bld) 53.9 % 47-70 [facility] Potassium [Moles/Vol] 4.3 mmol/L 3.5-5.1 [facility] Sodium [Moles/Vol] 139 mmol/L 136-145 [facility] WBC (Bld) [#/Vol] 10.4 10*3/uL 4.4-11.0 [facility] Bilirubin Test strip Ql (U)O rdered By: Dr. Malik on 01-10-2023 Bilirubin Ql (U) Negative Negative [facility] Blood erythrocytes count (nu mber/volume)Ordered By: Dr. Malik on 01-10-2023 RBC (Bld) [#/Vol] 3.68 10*6/uL 4.6-6.2 [facility] Blood hemoglobin measurement (mass/volume)Ordered By: Dr. Malik on 01-10-2023 Hemoglobin (Bld) [Mass/Vol] 12.3 g/dL 13.0-16.5 [facility] Blood lymphocytes/100 leukoc ytesOrdered By: Dr. Malik on 01-10-2023 Lymphocytes/100 WBC (Bld) 25.6 % 19-41 [facility] Blood monocytes/100 leukocyt esOrdered By: Dr. Malik on 01-10-2023 Monocytes/100 WBC (Bld) 16.6 % 0-10 [facility] Blood platelet mean volumeOr dered By: Dr. Malik on 01-10-2023 Platelet mean volume (Bld) [Entitic vol] 8.4 fL 6.2-12.0 [facility] Determination of erythrocyte mean corpuscular volume (MCV)Ordered By: Dr. Malik on 01-10-2023 MCV (RBC) [Entitic vol] 102.2 fL 80-94 [facility] Hematocrit Auto (Bld) [Volum e fraction]Ordered By: Dr. Malik on 01-10-2023 Hematocrit (Bld) [Volume fraction] 37.6 % 40-54 [facility] Hyaline casts LM.LPF (Urine sed) [#/Area]Ordered By: Dr. Malik on 01-10-2023 Hyaline casts (Urine sed) [#/Area] 0 /[LPF] 0-5 [facility] Ketones Test strip Ql (U)Ord ered By: Dr. Malik on 01-10-2023 Ketones Ql (U) 5 mg/dl Negative [facility] - Chemistry and C hemistry - challengeOrdered By: Dr. Malik on 01-10-2023 CO2 [Moles/Vol] 29.0 mmol/L 21.0-32.0 [facility] Urea nitrogen/Creatinine [Mass ratio] 15.0 mg/mg 10-20 [facility] - Hematology and Cell countsOrdered By: Dr. Malik on 01-10-2023 Erythrocyte distribution width (RBC) [Entitic vol] 49.0 fL 35.1-43.9 [facility] Erythrocyte distribution width (RBC) [Ratio] 13.1 % 11.6-14.6 [facility] Immature granulocytes/100 WBC (Bld) 1.400 % 0.0-0.9 [facility] Comment on above: IG% - Immature Granu locytes (promyelocytes, myelocytes and metamyelocytes) > 1% indicates that a LEFT SHIFT is Present. MCH (RBC) [Entitic mass] 33.4 pg 27.0-32.0 [facility] Nucleated RBC/100 WBC (Bld) [Ratio] 0 % 0-5 [facility] MCHC Auto (RBC) [Mass/Vol]Or dered By: Dr. Malik on 01-10-2023 MCHC (RBC) [Mass/Vol] 32.7 g/dL 32-36 [facility] Macrocytes detectionOrdered By: Dr. Malik on 01-10-2023 Macrocytes Ql (Bld) 2+ [facility] Mucus LM Ql (Urine sed)Order ed By: Dr. Malik on 01-10-2023 Mucus Ql (Urine sed) 0 SEEN /hpf [facility] Nitrite Test strip Ql (U)Ord ered By: Dr. Malik on 01-10-2023 Nitrite Ql (U) Negative Negative [facility] No Panel InformationOrdered By: Dr. Malik on 01-10-2023 Valproic Acid (Depakene) Level 80 ug/mL 50-100 [facility] Estimated Creatinine Clearance Calc 66.19 ml/min [facility] Estimated GFR (MDRD) Amer 122 mL/min >60 [facility] Comment on above: GFR Calc Estimated GFR (MDRD) Non-Af Amer 101 mL/min >60 [facility] Comment on above: Non- GFR Calc Troponin I High Sensitivity 6 pg/mL 3.0-78.0 [facility] Comment on above: Please Note: New Janice t Units and Gender Specific Reference Ranges. For more information see Policy Stat Procedure [place] High Sensitivity Troponin (TNIH) and attachments. Platelets bldOrdered By: Dr. Malik on 01-10-2023 Platelets (Bld) [#/Vol] 168 10*3/uL 150-450 [facility] Protein Test strip Ql (U)Ord ered By: Dr. Malik on 01-10-2023 Protein Ql (U) 15 mg/dl Negative [facility] Serum or plasma calcium minda urement (mass/volume)Ordered By: Dr. Malik on 01-10-2023 Calcium [Mass/Vol] 9.0 mg/dL 8.5-10.1 [facility] Serum or plasma creatinine m easurement (mass/volume)Ordered By: Dr. Malik on 01-10-2023 Creatinine [Mass/Vol] 0.80 mg/dL 0.70-1.30 [facility] Comment on above: The validity of the calculated GFR & GFRAA in patients over 70 years has not been determined. Clinical correlation is essential. Serum or plasma urea nitroge n measurement (mass/volume)Ordered By: Dr. Malik on 01-10-2023 Urea nitrogen [Mass/Vol] 12 mg/dL 7-18 [facility] Squamous epithelial cells de tection in urine sediment by light microscopyOrdered By: Dr. Malik on 01-10-2023 Epithelial cells.squamous LM Ql (Urine sed) 0 SEEN /hpf 0-5 [facility] Thin prep Papanicolaou smear with manual screeningOrdered By: Dr. Malik on 01-10-2023 Thin prep Papanicolaou smear with manual screening 5 5-15 [facility] Urine blood detectionOrdered By: Dr. Malik on 01-10-2023 RBC Ql (U) 25 /ul Negative [facility] RBC Ql (U) 0 SEEN /hpf 0-5 [facility] Urine clarityOrdered By: Dr. Malik on 01-10-2023 Clarity (U) Clear Clear [facility] Urine color determinationOrd ered By: Dr. Malik on 01-10-2023 Color (U) Yellow Yellow [facility] Urine glucose detectionOrder ed By: Dr. Malik on 01-10-2023 Glucose Ql (U) Normal mg/dl Normal [facility] Urine leukocyte esterase det ection by dipstickOrdered By: Dr. Malik on 01-10-2023 Leukocyte esterase Test strip Ql (U) Negative Negative [facility] Urine pHOrdered By: Dr. Binta smith on 01-10-2023 pH (U) 6.0 [pH] 5.0 - 8.0 [facility] Urine sediment bacteria coun t by microscopy (number/high power field)Ordered By: Dr. Malik on 01-10-2023 Bacteria LM.HPF (Urine sed) [#/Area] 0 /[HPF] None Seen [facility] Urine specific gravity measu rementOrdered By: Dr. Malik on 01-10-2023 Specific gravity (U) [Rel density] 1.015 1.002-1.03 0 [facility] Urobilinogen Auto test strip Ql (U)Ordered By: Dr. Malik on 01-10-2023 Urobilinogen Ql (U) Normal mg/dl Normal [facility] Ammonia Plas-sCncon 01-10-20 Ammonia (P) [Moles/Vol] 35 umol/L Normal 16-60 [facility] Comment on above: Order Comment: Speci men Type: BLOOD SPECIMEN Ordering Facility: [facility] Address: [address] [place] [phone] Performed By: #### 1 6362-6 #### [facility] CLIA [id number] [address] [place] [id number] [facility] CASE MANAGEMon 01-09-2023 CASE MANAGEM HNO ID: [id number] Author: ALYSSA Humphreys Service: ? Author Type: Military Pilot Type: Care Mgt Progress Note Filed: 01/09/2023 2:41 PM Note Text: CARE MANAGEMENT DISCHARGE NOTE SERVICE DATE: 01/09/2023 SERVICE TIME: 2:31 PM LOS: 1 day Patient discharging back to [facility] in [place]. Patient to be picked up at 9pm. [...] 09, 2023 TIME: 2:31 PM PAGER/CONTACT #: [phone] [facility] 01-09-2023 [facility] HNO ID: [id number] Author: Lorene Ortiz MD Service: Hospital Medicine [...] HTN, and KYA He was admitted to [facility] 5 days prior due to weakness [...] 30 tablet (more content not included)... Normal [facility] NURSING PROGon 01-09-2023 NURSING PROG HNO ID: [id number] Author: Anitha Burnette RN Service: Nursing Author Type: Registered Nurse Type: Nursing Progress Note Filed: 01/09/2023 12:24 PM Note Text: Patient being discharged back to [facility]. Patient agreeable. Updated and informed facility of patient's return. Normal [facility] Valproate SerPl-mCncon 01-09 Valproate [Mass/Vol] 80.8 ug/mL Normal 50.0-100.0 [facility] Comment on above: Order Comment: Speci men Type: BLOOD SPECIMEN Ordering Facility: [facility] Address: [place] [address] Result Comment: Refe rence ranges and high/low indicator flags are provided as general guidelines only. The treating physician must determine appropriate target levels/dosing based on the specific clinical situation. Performed By: #### 4 086-5 #### [facility] CLIA [id number] [address] ALLIED HEALTHon 01-08-2023 ALLIED HEALTH HNO ID: [id number] Author: RT Vivian(R) Service: Radiology Author Type: [...] Vivian(R) January 08, 2023 1:16 PM Normal [facility] CASE MGT INIT ASSESon 2022 CASE MGT INIT ASSMIKAYLA HNO ID: [id number] Author: LAYEN Lozano Service: Social Work Author Type: Military Pilot Type: Care Mgt Initial Assessment Filed: 01/08/2023 4:14 PM Note Text: CARE MANAGEMENT: ASSESSMENT AND DISCHARGE PLAN SERVICE DATE: January 08, 2023 SERVICE TIME: 3:39 PM PCP: Maddie Cantor DO Primary Contact: Extended Emergency Contact Information Primary Emergency Contact: Cantor,Cha Mobile Relation: Sister Secondary Emergency Contact: Pj conti Mobile Relation: Relative Admission Status: Inpatient Insurance Provider: [facility] D[employer]PLETE HMO POS SNP Discharge Planning requested by: Per Department Practice Potential Transition Plans Advance Directives Current Advance Directive: Health Care Power of Transit Coach Operator In Chart: Yes Up To Date and Valid: Yes Current Living Arrangements and Support Lives with: ([facility] Type of Residence: Assisted Living Facility Does [...] Care Goal(s): to return to Assisted living [place] Choice Explained: [place] of Choice Given: Yes Level of Care Discussed: Home Care Are you interested in bedside delivery of your medications? 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 Is in from [facility] in [place]. Plan is to return. 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 PT and OT recommend home PT. Pt with no preference for home health agency. With pt's consent, contacted [facility]ILO for agency they use. Referral sent to [facility]. Will need transport back to [facility] w/c ambulette. Per , pt now with lumbar fx. Await return call from pt's [facility] - nifelisa, Drea Conti [phone] to update. SIGNATURE: LAYNE Lozano PATIENT NAME: Anjel Ross DATE: January 08, 2023 TIME: 3:39 PM CONTACT #: [phone] Normal [facility] CBC W Auto Differential pane l (Bld)on 01-08-2023 Basophils (Bld) [#/Vol] 0.05 10*3/uL Normal <0.11 [facility] Comment on above: Order Comment: Speci men Type: BLOOD SPECIMEN Ordering Facility: [facility] Address: [address] [place] [address] Performed By: #### 5 7021-8 #### [facility] CLIA [id number] 1 [place] [address] [place] Basophils/100 WBC (Bld) 0.6 % Normal [facility] Comment on above: Order Comment: Speci men Type: BLOOD SPECIMEN Ordering Facility: [facility] Address: [address] [address] Performed By: #### 5 7021-8 #### [facility] CLIA [id number] 1 [place] [address] [place] Differential cell count method Nom (Bld) Auto Normal [facility] Comment on above: Order Comment: Speci men Type: BLOOD SPECIMEN Ordering Facility: [facility] Address: [address] [address] Performed By: #### 5 7021-8 #### [facility] CLIA [id number] 1 [place] [address] [place] Eosinophils (Bld) [#/Vol] 0.18 10*3/uL Normal <0.46 [facility] Comment on above: Order Comment: Speci men Type: BLOOD SPECIMEN Ordering Facility: [facility] Address: [address] [address] Performed By: #### 5 7021-8 #### [facility] CLIA [id number] [address] Eosinophils/100 WBC (Bld) 2.0 % Normal [facility] Comment on above: Order Comment: Speci men Type: BLOOD SPECIMEN Ordering Facility: [facility] Address: [address] [place] [address] Performed By: #### 5 7021-8 #### [facility] CLIA [id number] [address] [place] Erythrocyte distribution width (RBC) [Ratio] 12.9 % Normal 11.5-15.0 [facility] Comment on above: Order Comment: Speci men Type: BLOOD SPECIMEN Ordering Facility: [facility] Address: [address] [place] [address] Performed By: #### 5 7021-8 #### [facility] CLIA [id number] [address] [place] Hematocrit (Bld) [Volume fraction] 40.2 % Normal 39.0-51.0 [facility] Comment on above: Order Comment: Speci men Type: BLOOD SPECIMEN Ordering Facility: [facility] Address: [address] [place] [address] Performed By: #### 5 7021-8 #### [facility] CLIA [id number] [address] [place] Hemoglobin (Bld) [Mass/Vol] 13.1 g/dL Normal 13.0-17.0 [facility] Comment on above: Order Comment: Speci men Type: BLOOD SPECIMEN Ordering Facility: [facility] Address: [address] [place] [address] Performed By: #### 5 7021-8 #### [facility] CLIA [id number] [address] [place] Immature granulocytes (Bld) [#/Vol] 0.10 10*3/uL High <0.10 [facility] Comment on above: Order Comment: Speci men Type: BLOOD SPECIMEN Ordering Facility: [facility] Address: [address] [place] [address] Performed By: #### 5 7021-8 #### [facility] CLIA [id number] [address] Immature granulocytes/100 WBC (Bld) 1.1 % Normal [facility] Comment on above: Order Comment: Speci men Type: BLOOD SPECIMEN Ordering Facility: [facility] Address: [address] [place] [address] Performed By: #### 5 7021-8 #### [facility] CLIA [id number] [address] Lymphocytes (Bld) [#/Vol] 2.81 10*3/uL Normal 1.00-4.00 [facility] Comment on above: Order Comment: Speci men Type: BLOOD SPECIMEN Ordering Facility: [facility] Address: [address] [place] [address] Performed By: #### 5 7021-8 #### [facility] CLIA [id number] [address] Lymphocytes/100 WBC (Bld) 31.6 % Normal [facility] Comment on above: Order Comment: Speci men Type: BLOOD SPECIMEN Ordering Facility: [facility] Address: [address] [place] [address] Performed By: #### 5 7021-8 #### [facility] CLIA [id number] [address] MCH (RBC) [Entitic mass] 32.7 pg Normal 26.0-34.0 [facility] Comment on above: Order Comment: Speci men Type: BLOOD SPECIMEN Ordering Facility: [facility] Address: [address] [place] [address] Performed By: #### 5 7021-8 #### [facility] CLIA [id number] [address] MCHC (RBC) [Mass/Vol] 32.6 g/dL Normal 30.5-36.0 [facility] Comment on above: Order Comment: Speci men Type: BLOOD SPECIMEN Ordering Facility: [facility] Address: [address] [address] Performed By: #### 5 7021-8 #### [facility] CLIA [id number] [address] MCV (RBC) [Entitic vol] 100.2 fL High 80.0-100.0 [facility] Comment on above: Order Comment: Speci men Type: BLOOD SPECIMEN Ordering Facility: [facility] Address: [address] [place] [address] Performed By: #### 5 7021-8 #### [facility] CLIA [id number] [address] [place] Monocytes (Bld) [#/Vol] 1.06 10*3/uL High <0.87 [facility] Comment on above: Order Comment: Speci men Type: BLOOD SPECIMEN Ordering Facility: [facility] Address: [address] [place] [address] Performed By: #### 5 7021-8 #### [facility] CLIA [id number] [address] Monocytes/100 WBC (Bld) 11.9 % Normal [facility] Comment on above: Order Comment: Speci men Type: BLOOD SPECIMEN Ordering Facility: [facility] Address: [address] [place] [address] Performed By: #### 5 7021-8 #### [facility] CLIA [id number] [address] [place] Neutrophils (Bld) [#/Vol] 4.70 10*3/uL Normal 1.45-7.50 [facility] Comment on above: Order Comment: Speci men Type: BLOOD SPECIMEN Ordering Facility: [facility] Address: [address] [place] [address] Performed By: #### 5 7021-8 #### [facility] CLIA [id number] [address] [place] Neutrophils/100 WBC (Bld) 52.8 % Normal [facility] Comment on above: Order Comment: Speci men Type: BLOOD SPECIMEN Ordering Facility: [facility] Address: [address] [address] Performed By: #### 5 7021-8 #### [facility] CLIA [id number] [address] Nucleated RBC (Bld) [#/Vol] 10*3/uL Normal <0.01 [facility] Comment on above: Order Comment: Speci men Type: BLOOD SPECIMEN Ordering Facility: [facility] Address: [address] [address] Performed By: #### 5 7021-8 #### [facility] CLIA [id number] [address] Nucleated RBC/100 WBC (Bld) [Ratio] 0.0 /100 WBC Normal [facility] Comment on above: Order Comment: Speci men Type: BLOOD SPECIMEN Ordering Facility: [facility] Address: [address] [address] Performed By: #### 5 7021-8 #### [facility] CLIA [id number] [address] Platelet mean volume (Bld) [Entitic vol] 8.5 fL Low 9.0-12.7 [facility] Comment on above: Order Comment: Speci men Type: BLOOD SPECIMEN Ordering Facility: [facility] Address: [address] [address] Performed By: #### 5 7021-8 #### [facility] CLIA [id number] [address] [place] Platelets (Bld) [#/Vol] 160 10*3/uL Normal 150-400 [facility] Comment on above: Order Comment: Speci men Type: BLOOD SPECIMEN Ordering Facility: [facility] Address: [address] [address] Performed By: #### 5 7021-8 #### [facility] CLIA [id number] [address] RBC (Bld) [#/Vol] 4.01 10*6/uL Low 4.20-6.00 [facility] Comment on above: Order Comment: Devendra krishnamurthy Type: BLOOD SPECIMEN Ordering Facility: [facility] Address: [address] [place] [address] Performed By: #### 5 7021-8 #### [facility] CLIA [id number] [address] WBC (Bld) [#/Vol] 8.90 10*3/uL Normal 3.70-11.00 [facility] Comment on above: Order Comment: Devendra krishnamurthy Type: BLOOD SPECIMEN Ordering Facility: [facility] Address: [address] [place] [address] Performed By: #### 5 7021-8 #### [facility] CLIA [id number] [address] CONSULTon 01-08-2023 CONSULT HNO ID: [id number] Author: Mann Waggoner APRN.POTATO PANCAKE FRIER Service: Neurosurgery Author Type: Nurse Practitioner Type: [...] a 72 year old male transferred from [facility] with concerns for NPH.The patient currently [...] W/COLLJ SPEC WHEN PFRMD 03/25/2016 Colonoscopy outpt [facility] COLSC FLX W/REMOVAL LESION BY HOT [...] ANGIOPLASTY, ASHD Cancer Father LUNG Heart Father [place] X 3 Heart Maternal Aunt [place] Diabetes Maternal Aunt other (EPILEPSY) Paternal Grandfather [...] tab(s) (BUMEX) 2 mg ORAL DAILY Keron Deewy MD 2 mg at 01/08/23 0858 bethanechol 25 mg tab(s) (URECHOLINE) 25 mg ORAL TID Keron Dewey MD 25 mg at 01/08/23 1247 spironolactone 25 mg tab(s) (ALDACTONE) 25 mg ORAL DAILY Keron Dewey MD 25 mg at 01/08/[address] 40 mg tab(s) (PROTONIX) 40 mg ORAL DAILY Keron Dewey MD 40 mg (more content not included)... Normal [facility] CONSULT HNO ID: [id number] Author: hCino Gerber DO Service: Neurology General Author Type: [...] hypertension, KYA, who was initially admitted to [facility] 5 days ago with generalized weakness, unsteady gait and fall without focal deficits. During that hospital stay CT brain was concerning for possible NPH. Subsequently, telemetry neurologist recommended patient to be transferred for neurology consult and LP and MRI brain/spine with and without contrast. Patient admitted to [facility] on 01/08 with differential diagnosis of [...] W/COLLJ SPEC WHEN PFRMD 03/25/2016 Colonoscopy outpt [facility] COLSC FLX W/REMOVAL LESION BY HOT [...] ANGIOPLASTY, ASHD Cancer Father LUNG Heart Father [place] X 3 Heart Maternal Aunt [place] Diabetes Maternal Aunt other (EPILEPSY) Paternal Grandfather [...] mg tablet (more content not included)... Normal [facility] CT LUMBAR SPINE WO IVCONon 0 01-08-2023 CT LUMBAR SPINE WO IVCON * * *Final Report* * * DATE OF EXAM: Jan 08 2023 4:50PM [id number] - CT LUMBAR SPINE WO IVCON [...] are 5 lumbar-type vertebrae. Anatomic variant: None. Plant Technician/Control Room Operator (topogram) images: Right hip arthroplasty. Alignment: S-shaped [...] and assume there are 5 lumbar-type vertebrae. Fusing Machine Operator: PSCCarter Transcribe Date/Time: Jan 09 2023 9:56A Dictated by : NGUYỄN GILBERT DO This examination was interpreted and the report reviewed and electronically signed by: NGUYỄN GILBERT DO on Jan 09 2023 10:03AM EST [id number] Normal [facility] Comprehensive metabolic 2000 panelon 01-08-2023 Albumin [Mass/Vol] 3.2 g/dL Low 3.9-4.9 [facility] Comment on above: Order Comment: Devendra krishnamurthy Type: BLOOD SPECIMEN Ordering Facility: [facility] Address: [address] [address] Performed By: #### 2 4323-8, , 3015-3 #### [facility] CLIA [id number] [address] [place] ALP [Catalytic activity/Vol] 58 U/L Normal 38-113 [facility] Comment on above: Order Comment: Devendra krishnamurthy Type: BLOOD SPECIMEN Ordering Facility: [facility] Address: [address] [place] [address] Performed By: #### 2 4323-8, , 3015-3 #### [facility] CLIA [id number] 1 [place] [address] [place] ALT With P-5'-P [Catalytic activity/Vol] 7 U/L Low 10-54 [facility] Comment on above: Order Comment: Devendra men Type: BLOOD SPECIMEN Ordering Facility: [facility] Address: [address] [address] Performed By: #### 2 4323-8, , 3015-3 #### [facility] CLIA [id number] [address] [place] Anion gap [Moles/Vol] 10 mmol/L Normal 9-18 [facility] Comment on above: Order Comment: Speci men Type: BLOOD SPECIMEN Ordering Facility: [facility] Address: [address] [place] [address] Performed By: #### 2 4323-8, 85211-1, 6-3 #### [facility] CLIA [id number] [address] [place] AST With P-5'-P [Catalytic activity/Vol] 15 U/L Normal 14-40 [facility] Comment on above: Order Comment: Speci men Type: BLOOD SPECIMEN Ordering Facility: [facility] Address: [address] [place] [address] Performed By: #### 2 4323-8, , 3015-3 #### [facility] CLIA [id number] [address] STATES OF [facility] Bilirubin [Mass/Vol] 0.3 mg/dL Normal 0.2-1.3 [facility] Comment on above: Order Comment: Speci men Type: BLOOD SPECIMEN Ordering Facility: [facility] Address: [address] [place] [address] Performed By: #### 2 4323-8, , 3015-3 #### [facility] CLIA [id number] [address] [place] Calcium [Mass/Vol] 9.4 mg/dL Normal 8.5-10.2 [facility] Comment on above: Order Comment: Speci men Type: BLOOD SPECIMEN Ordering Facility: [facility] Address: [address] [place] [address] Performed By: #### 2 4323-8, , 6-3 #### [facility] CLIA [id number] [address] [place] Chloride [Moles/Vol] 104 mmol/L Normal 97-105 [facility] Comment on above: Order Comment: Speci men Type: BLOOD SPECIMEN Ordering Facility: [facility] Address: [address] [address] Performed By: #### 2 4323-8, , 3 #### [facility] CLIA [id number] [address] OF [facility] CO2 [Moles/Vol] 28 mmol/L Normal 22-30 [facility] Comment on above: Order Comment: Speci men Type: BLOOD SPECIMEN Ordering Facility: [facility] Address: [address] [address] Performed By: #### 2 4323-8, , 3015-12 #### [facility] CLIA [id number] [address] OF [facility] Creatinine [Mass/Vol] 0.65 mg/dL Low 0.73-1.22 [facility] Comment on above: Order Comment: Speci men Type: BLOOD SPECIMEN Ordering Facility: [facility] Address: [address] [place] [address] Performed By: #### 2 4323-8, , 3015-12 #### [facility] CLIA [id number] [address] ESTIMATED GLOMERULAR FILTRATION RATE 99 mL/min/1.73m??? Normal >=60 [facility] Comment on above: Order Comment: Speci men Type: BLOOD SPECIMEN Ordering Facility: [facility] Address: [address] [place] [address] Result Comment: Narda mated Glomerular Filtration Rate [...] By: #### 2 4323-8, , 3015-12 #### [facility] CLIA [id number] [address] [place] [address] [place] Glucose [Mass/Vol] 90 mg/dL Normal 74-99 [facility] Comment on above: Order Comment: Devendra krishnamurthy Type: BLOOD SPECIMEN Ordering Facility: [facility] Address: [address] [place], [place] [address] Result Comment: The [place] Diabetes Association (ADA) provides guidance for cutoff [...] Standards of Medical Care in Diabetes 2016, [place] [employer]. Diabetes Care. 2016.39(Suppl 1). Performed By: #### 2 4323-8, , 3015-3 #### [facility] CLIA [id number] [address] [place] [address] [place] Potassium [Moles/Vol] 3.8 mmol/L Normal 3.7-5.1 [facility] Comment on above: Order Comment: Devendra krishnamurthy Type: BLOOD SPECIMEN Ordering Facility: [facility] Address: [address] [place], [place] [address] Performed By: #### 2 4323-8, , 3015-3 #### [facility] CLIA [id number] 1 [place] [address] [place] Protein [Mass/Vol] 5.6 g/dL Low 6.3-8.0 [facility] Comment on above: Order Comment: Devendra krishnamurthy Type: BLOOD SPECIMEN Ordering Facility: [facility] Address: [address] [place], [place] [address] Performed By: #### 2 4323-8, , 6-3 #### [facility] CLIA [id number] [address] STATES OF [facility] Sodium [Moles/Vol] 142 mmol/L Normal 136-144 [facility] Comment on above: Order Comment: Speci men Type: BLOOD SPECIMEN Ordering Facility: [facility] Address: [address] [id number] Performed By: #### 2 4323-8, 40584-8, 3016-3 #### [facility] CLIA [id number] [address] [place] Urea nitrogen [Mass/Vol] 11 mg/dL Normal 9-24 [facility] Comment on above: Order Comment: Speci men Type: BLOOD SPECIMEN Ordering Facility: [facility] Address: [address] [address] Performed By: #### 2 4323-8, 47109-8, 6-3 #### [facility] CLIA [id number] [address] STATES OF [facility] ECG COMPLETEon 01-08-2023 ECG COMPLETE Ventricular Rate : 8 7 BPM Atrial Rate : 87 BPM P-R Interval : 144 ms QRS Duration : 84 ms Q-T Interval : 352 ms QTC Calculation(Bazett) : 423 ms Calculated P [place] : 58 degrees Calculated R [place] : -45 degrees Calculated T [place] : 17 degrees NORMAL SINUS RHYTHM LEFT [...] INFERIOR LEADS Confirmed by MD EMANI, ADRIAN ([id number]) on 01/08/2023 3:41:29 PM NAME : ANJEL ROSS PID : [id number] : 1950 Gender : Male Race : ORD : [id number] Procedure Date : Jan 08 2023 03:21:39 [...] INFERIOR LEADS Confirmed by MD JOAQUIN VINAY ([id number]) on 01/08/2023 3:41:29 PM Test Reason : Arrhythmia Location : 91 : 9100 9101 Overread By : MD JOAQUIN VINAY Edited By : MD JOAQUIN VINAY Referred By : HILARIO MALIK Acquired by : LAKSHMI MOREAU [facility] HISTORY PHYSICALon 3 HISTORY PHYSICAL HNO ID: [id number] Author: Keron Dewey MD Service: General Internal Medicine Author Type: Physician Type: HANDP Filed: 01/08/2023 6:34 AM Note Text: DEPARTMENT OF HOSPITAL MEDICINE HISTORY AND PHYSICAL EXAM SERVICE DATE: 01/08/2023 SERVICE TIME: 1:26 AM Primary Care Physician: Maddie Cantor, DO NIGHT AND WEEKEND COVERAGE: From 7am - 7pm, please call Sound After 7pm, please call cross cover pager #[phone] Subjective CHIEF COMPLAINT: Unsteady gait HPI: This is a 72 year old male F resident with hx of anemia, CAD, hypothyroidism, HL, colon cancer, seizures, HTN, and KYA, who was admitted to [facility] 5 days ago with generalized weakness [...] W/COLLJ SPEC WHEN PFRMD 03/25/2016 [facility]pt [facility] [facility] COLSC FLX W/REMOVAL LESION BY HOT [...] ANGIOPLASTY, ASHD Cancer Father LUNG Heart Father [place] X 3 Heart Maternal Aunt [place] Diabetes Maternal Aunt other (EPILEPSY) Paternal Grandfather [...] 1 tablet by mouth daily at bedtime. Zlozo-3-ZYD-EPA-Fish Oil 1,000 mg (120 mg-180 mg) cap [...] No Y (more content not included)... Normal [facility] Magnesium SerPl-mCncon 01-08 Magnesium [Mass/Vol] 1.7 mg/dL Normal 1.7-2.3 [facility] Comment on above: Order Comment: Speci men Type: BLOOD SPECIMEN Ordering Facility: [facility] Address: [address] [place], [place] [id number] Performed By: #### 2 4323-8, 39464-1, 3016-3 #### [facility] CLIA [id number] [address] [place] [id number] [place] NURSING PROGon 01-08-2023 NURSING PROG HNO ID: [id number] Author: Doug Suárez RN Service: Nursing Author Type: Registered Nurse Type: Nursing Progress Note Filed: 01/08/2023 5:29 PM Note Text: 01/08/2023 Nursing note: Notified Neurology AND attending of multiple attempts of obtaining blood (ammonia level) Multiple RN attempted This note was completed by: Doug Suárez RN Normal [facility] THERAPY NTon 01-08-2023 THERAPY NT HNO ID: [id number] Author: Almaz aFlcon PT Service: Physical Therapy Author Type: Physical Therapist Type: Therapy (PT/OT/Speech/Resp) Filed: 01/08/2023 4:10 PM Note Text: Physical Therapy Evaluation SERVICE DATE: 01/08/2023 SERVICE TIME: 1445 to 1502 ROOM: [place] [address] Recommended Discharge Disposition: Home PT Recommended Discharge [...] Risk Current Hospital Course: Originally admitted at [facility] with general weakness and unsteady gait [...] Narrow Base of Support, Step length decreased [facility] 7: Walk 25 feet or more Learning/Educational Needs: Discharge Plan, Functional Activities/Mobility, Plan of Care, Rehabilitation Techniques and Procedures, Safety Goals for Plan of Care: Patient/Caregiver Goals: Go Home Transfer Supine to/from Sit with: Stand By Assistance Transfer Sit to/from Stand with: Stand By Assistance Ambulate with: Stand By Assistance Distance: 50'x2 Device: Wheeled Walker Goal: Pt will complete x5 repeated [id number] transfers with SBA Rehab Potential: Good Patient [...] activity as (more content not included)... Normal [facility] THERAPY NT HNO ID: [id number] Author: Miquel Ellis OTR/L Service: Occupational Therapy Author Type: Occupational Therapist Type: Therapy (PT/OT/Speech/Resp) Filed: 01/08/2023 11:27 AM Note Text: Occupational Therapy Evaluation SERVICE DATE: 01/08/2023 SERVICE TIME: 839 to 907 ROOM: [id number] Recommended Discharge Disposition: Home OT Recommended Discharge [...] with: Patient (more content not included)... Normal [facility] TSH SerPl-aCncon 01-08-2023 TSH Qn 9.720 m[IU]/L High 0.270-4.20 0 [facility] Comment on above: Order Comment: Speci men Type: BLOOD SPECIMEN Ordering Facility: [facility] Address: [address] [place] [phone] Performed By: #### 2 4323-8, 81232-7, 3016-3 #### [facility] CLIA [id number] [address] [place] [address] [place] Valproate SerPl-mCncon 01-08 Valproate [Mass/Vol] 72.9 ug/mL Normal 50.0-100.0 [facility] Comment on above: Order Comment: Speci men Type: BLOOD SPECIMEN Ordering Facility: [facility] Address: [address], [place] [address] Result Comment: Refe rence ranges and high/low indicator flags are provided as general guidelines only. The treating physician must determine appropriate target levels/dosing based on the specific clinical situation. Performed By: #### 4 086-5 #### [facility] CLIA [id number] [address] [place] [address] [place] XR LUMBAR 3V [...] Multilevel degenerative disc disease and facet arthropathy. Fusing Machine Operator: ELVIS Transcribe Date/Time: Jan 08 2023 2:00P Dictated by : REJI ARNETT MD This examination was interpreted and the report reviewed and electronically signed by: REJI ARNETT MD on Jan 08 2023 2:05PM EST [id number] Normal [facility] XR THORACIC 2V AP/LATon 04-0 XR THORACIC 2V AP/LAT * * *Final [...] report of the accompanying lumbar spine films. Fusing Machine Operator: ELVIS Transcribe Date/Time: Jan 08 2023 2:05P Dictated by : REJI ARNETT MD This examination was interpreted and the report reviewed and electronically signed by: REJI ARNETT MD on Jan 08 2023 2:07PM EST [id number] Normal [facility] Absolute lymphocyte countOrd ered By: Dr. Cannon on 01-07-2023 Lymphocytes Auto (Unsp spec) [#/Vol] 2.20 10*3/uL 0.83-4.51 [facility] Basophil percentageOrdered B y: Dr. Cannon on 01-07-2023 Basophils/100 WBC (Bld) 0.6 % 0-1 [facility] Chloride [Moles/Vol] 110 mmol/L 98-107 [facility] Eosinophils/100 WBC (Bld) 2.6 % 0-5 [facility] Glucose [Mass/Vol] 115 mg/dL 74-106 [facility] Comment on above: Fasting Glucose resu lt from 100 to 125 mg/dL suggests IMPAIRED HOMEOSTASIS per A.D.A. criteria. Neutrophils (Bld) [#/Vol] 3.0 10*3/uL 2.0-7.7 [facility] Neutrophils/100 WBC (Bld) 46.7 % 47-70 [facility] Potassium [Moles/Vol] 3.9 mmol/L 3.5-5.1 [facility] Sodium [Moles/Vol] 140 mmol/L 136-145 [facility] WBC (Bld) [#/Vol] 6.5 10*3/uL 4.4-11.0 [facility] Blood erythrocytes count (nu mber/volume)Ordered By: Dr. Cannon on 01-07-2023 RBC (Bld) [#/Vol] 3.61 10*6/uL 4.6-6.2 [facility] Blood hemoglobin measurement (mass/volume)Ordered By: Dr. Cannon on 01-07-2023 Hemoglobin (Bld) [Mass/Vol] 12.1 g/dL 13.0-16.5 [facility] Blood lymphocytes/100 leukoc ytesOrdered By: Dr. Cannon on 01-07-2023 Lymphocytes/100 WBC (Bld) 33.8 % 19-41 [facility] Blood monocytes/100 leukocyt esOrdered By: Dr. Cannon on 01-07-2023 Monocytes/100 WBC (Bld) 15.2 % 0-10 [facility] Blood platelet mean volumeOr dered By: Dr. Cannon on 01-07-2023 Platelet mean volume (Bld) [Entitic vol] 8.9 fL 6.2-12.0 [facility] Culture, urineOrdered By: Dr Shanthi Malik on 01-07-2023 Bacteria identified Cx Nom (U) Culture exhibits no growth. [facility] Determination of erythrocyte mean corpuscular volume (MCV)Ordered By: Dr. Cannon on 01-07-2023 MCV (RBC) [Entitic vol] 102.5 fL 80-94 [facility] Hematocrit Auto (Bld) [Volum e fraction]Ordered By: Dr. Cannon on 01-07-2023 Hematocrit (Bld) [Volume fraction] 37.0 % 40-54 [facility] - Chemistry and C hemistry - challengeOrdered By: Dr. Cannon on 01-07-2023 CO2 [Moles/Vol] 24.0 mmol/L 21.0-32.0 [facility] Urea nitrogen/Creatinine [Mass ratio] 27.1 mg/mg 10-20 [facility] - Hematology and Cell countsOrdered By: Dr. Cannon on 01-07-2023 Erythrocyte distribution width (RBC) [Entitic vol] 47.9 fL 35.1-43.9 [facility] Erythrocyte distribution width (RBC) [Ratio] 12.8 % 11.6-14.6 [facility] Immature granulocytes/100 WBC (Bld) 1.100 % 0.0-0.9 [facility] Comment on above: IG% - Immature Granu locytes (promyelocytes, myelocytes and metamyelocytes) > 1% indicates that a LEFT SHIFT is Present. MCH (RBC) [Entitic mass] 33.5 pg 27.0-32.0 [facility] Nucleated RBC/100 WBC (Bld) [Ratio] 0 % 0-5 [facility] MCHC Auto (RBC) [Mass/Vol]Or dered By: Dr. Cannon on 01-07-2023 MCHC (RBC) [Mass/Vol] 32.7 g/dL 32-36 [facility] No Panel InformationOrdered By: Dr. Cannon on 01-07-2023 Estimated Creatinine Clearance Calc 52.95 ml/min [facility] Estimated GFR (MDRD) Amer 242 mL/min >60 [facility] Comment on above: GFR Calc Estimated GFR (MDRD) Non-Af Amer 200 mL/min >60 [facility] Comment on above: Non- GFR Calc Platelets bldOrdered By: Dr. Cannon on 01-07-2023 Platelets (Bld) [#/Vol] 132 10*3/uL 150-450 [facility] Serum or plasma calcium minda urement (mass/volume)Ordered By: Dr. Cannon on 01-07-2023 Calcium [Mass/Vol] 8.8 mg/dL 8.5-10.1 [facility] Serum or plasma creatinine m easurement (mass/volume)Ordered By: Dr. Cannon on 01-07-2023 Creatinine [Mass/Vol] 0.44 mg/dL 0.70-1.30 [facility] Comment on above: The validity of the calculated GFR & GFRAA in patients over 70 years has not been determined. Clinical correlation is essential. Serum or plasma urea nitroge n measurement (mass/volume)Ordered By: Dr. Cannon on 01-07-2023 Urea nitrogen [Mass/Vol] 12 mg/dL 7-18 [facility] Thin prep Papanicolaou smear with manual screeningOrdered By: Dr. Cannon on 01-07-2023 Thin prep Papanicolaou smear with manual screening 6 5-15 [facility] Basophil percentageOrdered B y: Dr. Cannon on 01-06-2023 Basophil percentage 2.2 mg/dL 2.5-4.9 [facility] - Chemistry and C hemistry - challengeOrdered By: Dr. Cannon on 01-06-2023 Magnesium [Mass/Vol] 2.0 mg/dL 1.6-2.6 [facility] Basophil percentageOrdered B y: Dr. Hooper on 01-05-2023 Bilirubin [Mass/Vol] 0.30 mg/dL 0.20-1.00 [facility] Comment on above: For patients on eltr ombopag therapy, use of Dimension [place] TBIL is not recommended. Protein [Mass/Vol] 5.5 g/dL 6.4-8.2 [facility] Laboratory - Chemistry and C hemistry - challengeOrdered By: Dr. Hooper on 01-05-2023 ALP [Catalytic activity/Vol] 48 U/L 45-117 [facility] ALT [Catalytic activity/Vol] 8 U/L 16-61 [facility] Globulin (S) [Mass/Vol] 3.0 g/dL 2.2-4.2 [facility] No Panel InformationOrdered By: Dr. Hooper on 01-05-2023 Valproic Acid (Depakene) Level 57 ug/mL 50-100 [facility] Serum or plasma albumin minda urement (mass/volume)Ordered By: Dr. Hooper on 01-05-2023 Albumin [Mass/Vol] 2.5 g/dL 3.2-5.0 [facility] Serum or plasma albumin/glob ulin mass ratioOrdered By: Dr. Hooper on 01-05-2023 Albumin/Globulin [Mass ratio] 0.8 {ratio} 0.9-2.4 [facility] Thin prep Papanicolaou smear with manual screeningOrdered By: Dr. Hooper on 01-05-2023 Thin prep Papanicolaou smear with manual screening 15 U/L 15-37 [facility] Basophil percentageOrdered B y: Dr. Malik on 01-04-2023 Basophil percentage 0 SEEN /hpf 0-5 [facility] Bilirubin Test strip Ql (U)O rdered By: Dr. Malik on 01-04-2023 Bilirubin Ql (U) Negative Negative [facility] INR in Blood by Coagulation assayOrdered By: Dr. Malik on 01-04-2023 INR Coag (Bld) [Relative time] 1.0 {INR} [facility] Ketones Test strip Ql (U)Ord ered By: Dr. Malik on 01-04-2023 Ketones Ql (U) 5 mg/dl Negative [facility] Laboratory - Chemistry and C hemistry - challengeOrdered By: Dr. Malik on 01-04-2023 Cobalamin (Vitamin B12) [Mass/Vol] 504 pg/mL 211-911 [facility] CK [Catalytic activity/Vol] 50 U/L 39-308 [facility] Laboratory - CoagulationOrde red By: Dr. Malik on 01-04-2023 aPTT Coag (Bld) [Time] 24.4 s 24.1-36.2 [facility] PT Coag (PPP) [Time] 12.9 s 11.7-14.9 [facility] Mucus LM Ql (Urine sed)Order ed By: Dr. Malik on 01-04-2023 Mucus Ql (Urine sed) 0 SEEN /hpf [facility] Nitrite Test strip Ql (U)Ord ered By: Dr. Malik on 01-04-2023 Nitrite Ql (U) Negative Negative [facility] No Panel InformationOrdered By: Dr. Malik on 01-04-2023 Thyroid Stimulating Hormone (TSH) 3.10 uIU/mL 0.358-3.74 [facility] Troponin I High Sensitivity 6 pg/mL 3.0-78.0 [facility] Comment on above: Please Note: New Janice t Units and Gender Specific Reference Ranges. For more information see Policy Stat Procedure [place] High Sensitivity Troponin (TNIH) and attachments. Protein Test strip Ql (U)Ord ered By: Dr. Malik on 01-04-2023 Protein Ql (U) Negative Negative [facility] Serum or plasma folate measu rement (mass/volume)Ordered By: Dr. Malik on 01-04-2023 Folate [Mass/Vol] 9.80 ng/mL 3.1-55.4 [facility] Squamous epithelial cells de tection in urine sediment by light microscopyOrdered By: Dr. Malik on 01-04-2023 Epithelial cells.squamous LM Ql (Urine sed) 0 SEEN /hpf 0-5 [facility] Urine blood detectionOrdered By: Dr. Malik on 01-04-2023 RBC Ql (U) Negative Negative [facility] RBC Ql (U) 0 SEEN /hpf 0-5 [facility] Urine clarityOrdered By: Dr. Malik on 01-04-2023 Clarity (U) Clear Clear [facility] Urine color determinationOrd ered By: Dr. Mlaik on 01-04-2023 Color (U) Yellow Yellow [facility] Urine glucose detectionOrder ed By: Dr. Malik on 01-04-2023 Glucose Ql (U) Normal mg/dl Normal [facility] Urine leukocyte esterase det ection by dipstickOrdered By: Dr. Malik on 01-04-2023 Leukocyte esterase Test strip Ql (U) Negative Negative [facility] Urine pHOrdered By: Dr. Binta smith on 01-04-2023 pH (U) 8.0 [pH] 5.0 - 8.0 [facility] Urine sediment bacteria coun t by microscopy (number/high power field)Ordered By: Dr. Malik on 01-04-2023 Bacteria LM.HPF (Urine sed) [#/Area] 0 /[HPF] None Seen [facility] Urine specific gravity measu rementOrdered By: Dr. Malik on 01-04-2023 Specific gravity (U) [Rel density] 1.010 1.002-1.03 0 [facility] Urobilinogen Auto test strip Ql (U)Ordered By: Dr. Malik on 01-04-2023 Urobilinogen Ql (U) Normal mg/dl Normal [facility] Absolute lymphocyte countOrd ered By: Dr. Skaggs on 08-11-2022 Lymphocytes Auto (Unsp spec) [#/Vol] 1.27 10*3/uL 0.83-4.51 [facility] Basophil percentageOrdered B y: Dr. Skaggs on 08-11-2022 Basophils/100 WBC (Bld) 0.3 % 0-1 [facility] Chloride [Moles/Vol] 106 mmol/L 98-107 [facility] Eosinophils/100 WBC (Bld) 0.2 % 0-5 [facility] Glucose [Mass/Vol] 131 mg/dL 74-106 [facility] Comment on above: Fasting Glucose resu lt greater than or equal to 126 mg/dL suggests DIABETES MELLITUS per A.D.A. criteria. Neutrophils (Bld) [#/Vol] 11.5 10*3/uL 2.0-7.7 [facility] Neutrophils/100 WBC (Bld) 80.3 % 47-70 [facility] Potassium [Moles/Vol] 3.6 mmol/L 3.5-5.1 [facility] Sodium [Moles/Vol] 141 mmol/L 136-145 [facility] WBC (Bld) [#/Vol] 14.3 10*3/uL 4.4-11.0 [facility] Blood erythrocytes count (nu mber/volume)Ordered By: Dr. Skaggs on 08-11-2022 RBC (Bld) [#/Vol] 4.87 10*6/uL 4.6-6.2 [facility] Blood hemoglobin measurement (mass/volume)Ordered By: Dr. Skaggs on 08-11-2022 Hemoglobin (Bld) [Mass/Vol] 15.6 g/dL 13.0-16.5 [facility] Blood lymphocytes/100 leukoc ytesOrdered By: Dr. Skaggs on 08-11-2022 Lymphocytes/100 WBC (Bld) 8.9 % 19-41 [facility] Blood monocytes/100 leukocyt esOrdered By: Dr. Skaggs on 08-11-2022 Monocytes/100 WBC (Bld) 9.8 % 0-10 [facility] Blood platelet mean volumeOr dered By: Dr. Skaggs on 08-11-2022 Platelet mean volume (Bld) [Entitic vol] 8.8 fL 6.2-12.0 [facility] COVID-19 virus antigen assay Ordered By: Dr. Skaggs on 08-11-2022 SARS-CoV-2 (COVID-19) Ag IA.rapid Ql (Resp) [facility] Determination of erythrocyte mean corpuscular volume (MCV)Ordered By: Dr. Skaggs on 08-11-2022 MCV (RBC) [Entitic vol] 94.5 fL 80-94 [facility] Hematocrit Auto (Bld) [Volum e fraction]Ordered By: Dr. Skaggs on 08-11-2022 Hematocrit (Bld) [Volume fraction] 46.0 % 40-54 [facility] Laboratory - Chemistry and C hemistry - challengeOrdered By: Dr. Skaggs on 08-11-2022 CO2 [Moles/Vol] 24.0 mmol/L 21.0-32.0 [facility] Urea nitrogen/Creatinine [Mass ratio] 11.9 mg/mg 10-20 [facility] - Drug toxicology Ordered By: Dr. Skaggs on 08-11-2022 Amphetamines Ql (U) Negative <1000 ng/mL [facility] Benzodiazepines Ql (U) Negative < 200 ng/mL [facility] Cannabinoids Screen Ql (U) Negative < 50 ng/mL [facility] Cocaine Ql (U) Negative < 300 ng/mL [facility] Opiates Ql (U) Negative < 300 ng/mL [facility] - Hematology and Cell countsOrdered By: Dr. Skaggs on 08-11-2022 Erythrocyte distribution width (RBC) [Entitic vol] 43.3 fL 35.1-43.9 [facility] Erythrocyte distribution width (RBC) [Ratio] 12.5 % 11.6-14.6 [facility] Immature granulocytes/100 WBC (Bld) 0.500 % 0.0-0.9 [facility] Comment on above: IG% - Immature Granu locytes (promyelocytes, myelocytes and metamyelocytes) > 1% indicates that a LEFT SHIFT is Present. MCH (RBC) [Entitic mass] 32.0 pg 27.0-32.0 [facility] Nucleated RBC/100 WBC (Bld) [Ratio] 0 % 0-5 [facility] MCHC Auto (RBC) [Mass/Vol]Or dered By: Dr. Skaggs on 08-11-2022 MCHC (RBC) [Mass/Vol] 33.9 g/dL 32-36 [facility] No Panel InformationOrdered By: Dr. Skaggs on 08-11-2022 MDMA (Ecstasy) Screen Negative < 500 ng/mL [facility] Urine Barbiturates Screen Negative < 200 ng/mL [facility] Urine Drug Screen Comment [facility] Comment on above: CONFIRMATORY TESTING FOR [...] Urine Methadone Screen Negative < 300 ng/mL [facility] Estimated Creatinine Clearance Calc 53.21 ml/min [facility] Estimated GFR (MDRD) Amer 93 mL/min >60 [facility] Comment on above: GFR Calc Estimated GFR (MDRD) Non-Af Amer 77 mL/min >60 [facility] Comment on above: Non- GFR Calc Ethyl Alcohol Level < 3.0 mg/dL [facility] Comment on above: The serum:whole bloo d ethanol ratio is approximately 1.14and varies slightly with hematocrit. Medical Alcohol reference interval and critical value innon-tolerant individuals; 50 - 100 Impairment 100 Intoxication 100 - 250 Severe Poisoning 250 - 400 Deep/possible fatal coma Platelets bldOrdered By: Dr. Skaggs on 08-11-2022 Platelets (Bld) [#/Vol] 205 10*3/uL 150-450 [facility] Serum or plasma calcium minda urement (mass/volume)Ordered By: Dr. Skaggs on 08-11-2022 Calcium [Mass/Vol] 9.3 mg/dL 8.5-10.1 [facility] Serum or plasma creatinine m easurement (mass/volume)Ordered By: Dr. Skaggs on 08-11-2022 Creatinine [Mass/Vol] 1.01 mg/dL 0.70-1.30 [facility] Comment on above: The validity of the calculated GFR & GFRAA in patients over 70 years has not been determined. Clinical correlation is essential. Serum or plasma urea nitroge n measurement (mass/volume)Ordered By: Dr. Skaggs on 08-11-2022 Urea nitrogen [Mass/Vol] 12 mg/dL 7-18 [facility] Thin prep Papanicolaou smear with manual screeningOrdered By: Dr. Skaggs on 08-11-2022 Thin prep Papanicolaou smear with manual screening 11 5-15 [facility] Urine phencyclidine (PCP) de tectionOrdered By: Dr. Skaggs on 08-11-2022 Phencyclidine Ql (U) Negative < 25 ng/mL [facility] CNOVon 07-31-2022 CNOV Office Visit (GENSWS ) ANJEL ROSS ([id number]) 1950 M NFR Date Time Provider Department 07/31/22 9:15 AM MATEO BENTON During your visit today, we recorded the following information about you: Mateo Benton III, MD 07/31/2022 9:27 AM Signed Subjective: Patient is status post a colonoscopy completed at [facility] on 07/06/2022. Patient was noted to [...] in 5 years. Referring Provider: MATEO BENTON [[id number]] Allergies As of Date: 07/31/2022 Noted Allergy [...] mg by mouth daily at bedtime. - Nqnvs-0-MYF-EPA-Fish Oil 1,000 mg (120 mg-180 mg) cap [...] - wit (more content not included)... Normal [facility] 07-14-2022 [facility]) CODYANJEL ([id number]) 1950 M NFR Date Time Provider Department 07/14/22 MATEO BENTON During your visit today, we recorded the following information about you: Silvia Bustamante [facility] 07/14/2022 1:06 PM Signed Patient called requesting results from colonoscopy. Elizabeth Ruth LPN 07/14/2022 1:27 PM Signed Please call patient to schedule a virtual or office visit to view colonoscopy results. Thank you. Anjel# [phone] Georgie Alatorre [facility] 07/14/2022 2:36 PM Addendum They will call back to schedule.Georgie Alatorre [facility] Allergies As of Date: 07/14/2022 Noted Allergy [...] mg by mouth daily at bedtime. - Ylzqn-1-ESJ-EPA-Fish Oil (FISH OIL) 1,000 mg (120 mg-180 [...] initial [Z00.0 (more content not included)... Normal [facility] JARRODOVphillip 04-14-2022 CNOV Office Visit (GENSWS ) ANJEL ROSS ([id number]) 1950 M NFR Date Time Provider Department [...] colonoscopy 03/26/[address] Anjel Nagy at [facility]. Patient was noted to have a [...] mg by mouth daily at bedtime. - Fvobg-8-QKM-EPA-Fish Oil (FISH OIL) 1,000 mg (120 mg-180 [...] 3-4 ti (more content not included)... [facility] ([facility]) ANJEL ROSS ([id number]) 1950 M NFR Date Time Provider Department 03/13/22 ANNIA CHUNG [facility] During your visit today, we recorded the following information about you: Imani Mejia 03/13/2022 11:11 AM Signed Medication Concern Person Calling Silvia Sherie from [facility] Name of medication Depakote XR. Concern with medication Nurse advised pt is having difficulty swallowing pill and since XR she can't crush. Nurse is asking if can get non XR or liquid so it's not difficult for pt? Patient of Dr. Sheldon TalleyBYRON 03/13/2022 11:20 AM Signed Recent visit 03/06/22 [...] Fully Assessed Reason for Visit: Medication Question [7888] Cmt: Depakote XR Order(s):valproic acid (DEPAKENE) 250 [...] mg by mouth daily at bedtime. - Svpdw-0-NEP-EPA-Fish Oil (FISH OIL) 1,000 mg (120 mg-180 [...] 1 tablet (more content not included)... Normal [facility] 02-26-2022 [facility] Telephone ([facility]) ANJEL ROSS ([id number]) 1950 M NFR Date Time Provider Department [...] mg by mouth daily at bedtime. - Gjlbw-3-VRD-EPA-Fish Oil (FISH OIL) 1,000 mg (120 mg-180 [...] [E88.81] 01/19/2014 (more content not included)... Normal [facility] Vital Signs Date Time Vital Sign Value Performing Clinician Faci lity 01-31-2025 11:23-0400 Body temperature 97.8 [degF] Dr. Avani Eduardo MD [facility] 01-31-2025 11:23-0400 Heart rate 87 /min Dr. Avani Eduardo MD [facility] 01-31-2025 11:23-0400 Respiratory rate 16 /min Dr. Avani Eduardo MD [facility] 01-31-2025 11:23-0400 SaO2% (BldA) [Mass fraction] 96 % Dr. Avani Eduardo MD [facility] 11-01-2024 10:46-0500 Body temperature 97.7 [degF] Out [facility] 11-01-2024 10:46-0500 Diastolic blood pressure 73 mm[Hg] Out [facility] 11-01-2024 10:46-0500 Heart rate 74 /min Out [facility] 11-01-2024 10:46-0500 Respiratory rate 16 /min Out [facility] 11-01-2024 10:46-0500 SaO2% (BldA) [Mass fraction] 95 % Out [facility] 11-01-2024 10:46-0500 Systolic blood pressure 134 mm[Hg] Out [facility] 01-18-2023 14:37-0400 Body temperature 98.2 [degF] Dr. Maddie Cantor [facility] 01-18-2023 14:37-0400 Diastolic blood pressure 65 mm[Hg] Dr. Maddie Cantor [facility] 01-18-2023 14:37-0400 Heart rate 93 /min Dr. Maddie Cantor [facility] 01-18-2023 14:37-0400 Respiratory rate 18 /min Dr. Maddie Cantor [facility] 01-18-2023 14:37-0400 SaO2% (BldA) [Mass fraction] 94 % Dr. Maddie Cantor [facility] 01-18-2023 14:37-0400 Systolic blood pressure 114 mm[Hg] Dr. Maddie Cantor [facility] 01-18-2023 02:19-0400 Body mass index (BMI) [Ratio] 35.9 kg/m2 Dr. [facility] [facility] 01-18-2023 02:19-0400 Body weight 91.[address] Maddie Cantor [facility] 01-15-2023 11:23-0400 Body height 160.[address] Maddie Cantor [facility] 01-10-2023 09:36-0400 Body temperature 98 [degF] Dr. Maddie Cantor [facility] 01-10-2023 09:36-0400 Diastolic blood pressure 54 mm[Hg] Dr. Maddie Cantor [facility] 01-10-2023 09:36-0400 Heart rate 76 /min Dr. Maddie Cantor [facility] 01-10-2023 09:36-0400 Respiratory rate 16 /min Dr. Maddie Cantor [facility] 01-10-2023 09:36-0400 SaO2% (BldA) [Mass fraction] 97 % Dr. Maddie Cantor [facility] 01-10-2023 09:36-0400 Systolic blood pressure 107 mm[Hg] Dr. Maddie Cantor [facility] 01-10-2023 01:40-0400 Body height 160.[address] Maddie Cantor [facility] 01-10-2023 01:40-0400 Body mass index (BMI) [Ratio] 35.3 kg/m2 Dr. Maddie Cantor [facility] 01-10-2023 01:40-0400 Body weight 90.[address] Maddie Cantor [facility] 01-07-2023 16:25-0400 Body temperature 99 [degF] Dr. Maddie MACIEL [facility] 01-07-2023 16:25-0400 Diastolic blood pressure 79 mm[Hg] Dr. Maddie Cantor [facility] 01-07-2023 16:25-0400 Heart rate 89 /min Dr. Maddie MACIEL [facility] 01-07-2023 16:25-0400 Respiratory rate 16 /min Dr. Maddie Cantor [facility] 01-07-2023 16:25-0400 SaO2% (BldA) [Mass fraction] 98 % Dr. Maddie Cantor [facility] 01-07-2023 16:25-0400 Systolic blood pressure 114 mm[Hg] Dr. Maddie Cantor [facility] 01-07-2023 12:51-0400 Body mass index (BMI) [Ratio] 37.8 kg/m2 Dr. Maddie Cantor [facility] 01-06-2023 06:00-0400 Body weight 96.[address] Maddie Cantor [facility] 12-31-2022 07:42-0400 Diastolic blood pressure 72 mm[Hg] [facility] 12-31-2022 07:42-0400 Heart rate 69 /min [facility] 12-31-2022 07:42-0400 Respiratory rate 15 /min [facility] 12-31-2022 07:42-0400 SaO2% (BldA) [Mass fraction] 98 % [facility] 12-31-2022 07:42-0400 Systolic blood pressure 139 mm[Hg] [facility] 12-31-2022 06:02-0400 Body height 160.02 cm [facility] 12-31-2022 06:02-0400 Body mass index (BMI) [Ratio] 34.2 kg/m2 [facility] 12-31-2022 06:02-0400 Body temperature 97.2 [degF] [facility] 12-31-2022 06:02-0400 Body weight 87.7 kg [facility] 11-16-2022 19:04-0500 Diastolic blood pressure 69 mm[Hg] [facility] 11-16-2022 19:04-0500 Heart rate 88 /min [facility] 11-16-2022 19:04-0500 Respiratory rate 16 /min [facility] 11-16-2022 19:04-0500 SaO2% (BldA) [Mass fraction] 97 % [facility] 11-16-2022 19:04-0500 Systolic blood pressure 143 mm[Hg] [facility] 11-16-2022 18:12-0500 Body height 175.26 cm [facility] 11-16-2022 18:12-0500 Body mass index (BMI) [Ratio] 27.6 kg/m2 [facility] 11-16-2022 18:12-0500 Body temperature 98.1 [degF] [facility] 11-16-2022 18:12-0500 Body weight 84.9 kg [facility] 08-12-2022 13:43-0500 Diastolic blood pressure 85 mm[Hg] [facility] 08-12-2022 13:43-0500 Heart rate 75 /min [facility] 08-12-2022 13:43-0500 Respiratory rate 15 /min [facility] 08-12-2022 13:43-0500 SaO2% (BldA) [Mass fraction] 98 % [facility] 08-12-2022 13:43-0500 Systolic blood pressure 132 mm[Hg] [facility] 08-11-2022 14:37-0500 Body height 160.02 cm [facility] Work Phone: 08-11-2022 14:37-0500 Body mass index (BMI) [Ratio] 37.2 kg/m2 [facility] 08-11-2022 14:37-0500 Body temperature 97.6 [degF] [facility] 08-11-2022 14:37-0500 Body weight 95.25 kg [facility] 07-06-2022 17:01-0400 Body temperature 97.6 [degF] [facility] Work Phone: 07-06-2022 17:01-0400 Diastolic blood pressure 69 mm[Hg] [facility] Work Phone: 07-06-2022 17:01-0400 Heart rate 71 /min [facility] Work Phone: 07-06-2022 17:01-0400 Respiratory rate 18 /min [facility] Work Phone: 07-06-2022 17:01-0400 SaO2% (BldA) [Mass fraction] 97 % [facility] Work Phone: 07-06-2022 17:01-0400 Systolic blood pressure 126 mm[Hg] [facility] Work Phone: 07-06-2022 11:41-0400 Body height 160.02 cm [facility] Work Phone: 07-06-2022 11:41-0400 Body mass index (BMI) [Ratio] 35.9 kg/m2 [facility] Work Phone: 07-06-2022 11:41-0400 Body weight 92.07 kg [facility] Work Phone: Encounters Encounter Date Encounter Type Care Provider Facility Start: 06-05-2025 ambulatory Avani Palmer ty:[facility] Start: 05-29-2025 ambulatory Avanigómez Eduardo Facility:[facility] Start: 05-08-2025 End: 05-08-[address] Avani Eduardo MD -[facility] Start: 05-08-2025 End: 05-08-[address] Avani Eduardo MD -[facility] Start: 05-08-2025 End: 05-08-2025 ambulatory Avani Eduardo Facility:[facility] Start: 05-01-2025 ambulatory Avani Eduardo Facility:[facility] Start: 05-01-[address] Avani Eduardo MD -[facility] Start: 04-24-2025 ambulatory Avani Palmer ty:[facility] Start: 04-24-[address] Avani Eduardo MD -[facility] Start: 04-03-2025 ambulatory Avani Eduardo Facility:[facility] Start: 04-03-[address] Avani Eduardo MD -[facility] Start: 02-28-2025 ambulatory Avani MACIEL Facili ty:[facility] Start: 02-28-[address] Avani Eduardo MD -[facility] Start: 02-13-2025 Non-patient / Non-visit Dr. Eris gracia MD -[facility] Start: 02-13-2025 End: 02-13-[address] Avani Eduardo MD [facility] Work Phone: Start: 02-13-2025 End: 02-13-2025 Patient encounter procedure Kourtney SUERO -[facility] Work Phone: Start: 02-13-2025 End: 02-13-2025 ambulatory Kourtney Farrar Facility:[facility] Start: 02-01-2025 End: 02-01-[address] Avani Eduardo MD -[facility] Start: 02-01-[address] Avani Eduardo MD -[facility] Start: 01-31-2025 End: 01-31-2025 Patient encounter procedure Kourtney SUERO -[facility] Work Phone: Start: 01-31-2025 End: 02-01-2025 ambulatory Avani MACIEL Facility:[facility] Start: 01-05-2025 End: 01-05-[address] Avani Eduardo MD -[facility] Start: 01-05-2025 End: 01-05-2025 ambulatory Avani MACIEL Facility:[facility] Start: 01-03-2025 End: 01-03-[address] Avani Eduardo MD -[facility] Start: 01-02-2025 End: 01-03-2025 ambulatory Avani MACIEL Facility:[facility] Start: 01-02-[address] Avani Eduardo MD -[facility] Start: 12-06-2024 End: 12-06-2024 ambulatory Out of Town Doctor [facility] Work Phone: Start: 12-06-2024 End: 12-06-[address] Avani Eduardo MD -[facility] Start: 12-06-2024 End: 12-06-2024 ambulatory Avani MACIEL Facility:[facility] Start: 11-01-2024 End: 11-01-2024 Patient encounter procedure Kourtney Farrar NM -[facility] Work Phone: Start: 11-01-2024 End: 11-01-2024 ambulatory Kourtney Farrar Facility:[facility] Start: 10-05-2024 End: 10-05-[address] Avani Eduardo MD -[facility] Start: 10-05-2024 End: 10-05-2024 ambulatory Avani MACIEL Facility:[facility] Start: 09-29-2024 End: 09-29-[address] Avani Eduardo MD -[facility] Start: 09-29-2024 End: 09-29-2024 ambulatory Avani MACIEL Facility:[facility] Start: 08-01-2024 End: 08-01-2024 ambulatory Avani MACIEL Facility:[facility] Start: 06-28-2024 End: 06-28-2024 ambulatory Avanigómez Wheelera JANELL Facility:[facility] Start: 06-12-2024 ambulatory Avani Liama JANELL Facili ty:[facility] Start: 04-24-2024 End: 04-24-2024 ambulatory STANTON ANDREWS Not Available Start: 03-27-2024 End: 03-27-2024 ambulatory STANTON ANDREWS Not Available Start: 03-14-2024 End: 03-14-2024 ambulatory STANTON ANDREWS Not Available Start: 01-10-2024 End: 01-10-2024 ambulatory [facility] Work Phone: Start: 01-10-2024 End: 01-10-2024 Departed Referred [facility] Start: 01-10-2024 Registered Referred [facility] Start: 01-03-2024 End: 01-03-2024 ambulatory [facility] Work Phone: Start: 01-03-2024 End: 01-03-2024 Departed Referred [facility] Start: 12-15-2023 End: 12-15-2023 ambulatory [facility] Work Phone: Start: 12-15-2023 End: 12-15-2023 Departed Referred [facility] Start: 11-04-2023 End: 11-04-2023 ambulatory [facility] Work Phone: Start: 11-04-2023 End: 11-04-2023 Departed Referred [facility] Start: 11-04-2023 Registered Referred [facility] Start: 10-20-2023 End: 10-20-2023 ambulatory [facility] Work Phone: Start: 10-20-2023 End: 10-20-2023 Departed Referred [facility] Start: 10-11-2023 End: 10-11-2023 ambulatory [facility] Work Phone: Start: 10-11-2023 End: 10-11-2023 Departed Referred [facility] Start: 10-11-2023 Registered Referred [facility] Start: 10-05-2023 End: 10-05-2023 ambulatory [facility] Work Phone: Start: 10-05-2023 End: 10-05-2023 Departed Referred [facility] Start: 10-05-2023 Registered Referred [facility] Start: 09-22-2023 End: 09-22-2023 ambulatory [facility] Work Phone: Start: 09-22-2023 End: 09-22-2023 Departed Referred [facility] Start: 09-22-2023 Registered Referred [facility] Start: 09-16-2023 End: 09-16-2023 ambulatory STANTON ANDREWS Not Available Start: 09-13-2023 End: 09-13-2023 ambulatory [facility] Work Phone: Start: 09-13-2023 End: 09-13-2023 Departed Referred [facility] Start: 08-30-2023 End: 08-30-2023 ambulatory [facility] Work Phone: Start: 08-30-2023 End: 08-30-2023 Departed Referred [facility] Start: 08-23-2023 End: 08-23-2023 ambulatory [facility] Work Phone: Start: 08-23-2023 End: 08-23-2023 Departed Referred [facility] Start: 08-23-2023 Registered Referred [facility] Start: 05-24-2023 End: 05-24-2023 ambulatory [facility] Work Phone: Start: 05-24-2023 End: 05-24-2023 Departed Referred [facility] Start: 02-16-2023 Registered Referred [facility] Start: 02-09-2023 End: 02-09-2023 Departed Referred [facility] Start: 02-05-2023 End: 02-05-2023 Departed Referred [facility] Start: 01-18-2023 Non-patient / Non-visit Dr. Nelson MACIEL [facility] Start: 01-17-2023 Non-patient / Non-visit Dr. Nelson Cantor [facility] Start: 01-16-2023 Non-patient / Non-visit Dr. Nelson MACIEL [facility] Start: 01-15-2023 Non-patient / Non-visit Dr. Nelson MACIEL [facility] Start: 01-14-2023 Non-patient / Non-visit Dr. Nelson MACIEL [facility] Start: 01-13-2023 Non-patient / Non-visit Dr. Nelson MACIEL [facility] Start: 01-12-2023 Non-patient / Non-visit Dr. Nelson MACIEL [facility] Start: 01-11-2023 Non-patient / Non-visit Dr. Nelson MACIEL [facility] Start: 01-10-2023 End: 01-18-2023 Evaluation and management of inpatient Dr. Maddie MACIEL [facility]Medical Surgical 3 Start: 01-10-2023 End: 01-18-[address] Maddie Cantor [facility] Work Phone: Start: 01-08-2023 End: 01-09-2023 Evaluation and management of inpatient MADDIE PITTMAN SAKSHI Facility:[facility] Start: 01-07-2023 Non-patient / Non-visit Dr. Nelson MACIEL [facility] Start: 01-06-2023 Non-patient / Non-visit Dr. Nelson MACIEL [facility] Start: 01-05-2023 Non-patient / Non-visit Dr. Nelson MACIEL [facility] Start: 01-04-2023 Non-patient / Non-visit Dr. Nelson Cantor [facility] Start: 01-04-2023 End: 01-07-2023 Evaluation and management of inpatient Dr. Maddie MACIEL [facility]Progressive Care Unit Start: 12-31-2022 End: 12-31-2022 Emergency department patient visit [facility] Start: 11-16-2022 End: 11-16-2022 Emergency department patient visit [facility] Start: 09-29-2022 Refill Annia telles MD Work Phone: Neurology Comment on above: Refill Request Start: 08-11-2022 End: 08-12-2022 Emergency department patient visit [facility] Start: 07-31-2022 End: 07-31-2022 ambulatory MATEO BENTON Facility:[facility] Start: 07-31-2022 End: 07-31-2022 Patient encounter procedure Mateo Benton MD Work Phone: General Surgery Comment on above: Personal history of colon cancer (Primary Dx); History of colonic polyps Start: 07-14-2022 Telephone encounter Mateo crowder MD Work Phone: General Surgery Comment on above: Results Start: 07-06-2022 End: 07-06-2022 Admission to same day surgery center [facility] Start: 07-06-2022 End: 07-06-2022 ambulatory [facility] Work Phone: Start: 04-14-2022 End: 04-14-2022 ambulatory [facility] Facility:[facility] Start: 03-13-2022 Telephone encounter Anina joe MD Work Phone: Neurology Comment on above: Medication Question (Depakote XR) Start: 03-06-2022 End: 03-10-2022 Telemedicine consultation with patient Nils Roy Bina ESCAMILLA[employer] Work Phone: [facility] Start: 03-06-2022 End: 03-10-2022 ambulatory Nils Marie [employer] Work Phone: Neurology Comment on above: 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 Procedures Date Procedure Procedure Detail Performing [...] 07-06-2022 Colonoscopy Start: 03-26-2017 Colonoscopy Miquel ruano [employer] Work Phone: Bacteria identified in Urine by Culture Dr. Maddie MACIEL Urine culture Dr. Maddie MACIEL Viral antigen assay Viral antigen assay Plan of Treatment Date Care Activity Detail Author Start: 04-14-2023 BP CONTROLLED (<130/80) BP CONTROLLE D (<130/80) [facility] Start: 03-18-2023 DIABETES SCREEN DIABETES SCREEN [facility] Start: 01-18-2023 Patient discharge [facility] Start: 01-17-2023 [facility] Start: 01-16-2023 Speech therapy assessment [facility] Start: 01-15-2023 [facility] Start: 01-12-2023 Following clinical pathway protocol [facility] Start: 01-10-2023 Fall prevention [facility] Start: 01-10-2023 Provision of activit y privileges [facility] Start: 01-10-2023 Assessment of risk o f venous thromboembolism [facility] Start: 01-10-2023 Insertion of cathete r into peripheral vein [facility] Start: 01-10-2023 Providing care accor ding to standard [facility] Start: 01-10-2023 Referral to service [facility] Start: 01-10-2023 [facility] Start: 01-10-2023 Following clinical pathway protocol [facility] Start: 01-10-2023 Referral to occupati onal therapist [facility] Start: 01-10-2023 Referral to service [facility] Start: 01-10-2023 Admission procedure [facility] Start: 01-10-2023 Patient referral to dietitian [facility] Start: 01-07-2023 Patient discharge [facility] Start: 01-05-2023 Speech therapy assessment [facility] Start: 01-04-2023 Following clinical pathway protocol [facility] Start: 01-04-2023 Provision of activit y privileges [facility] Start: 01-04-2023 Aspiration precautions [facility] Start: 01-04-2023 Assessment of risk o f venous thromboembolism [facility] Start: 01-04-2023 Fall prevention [facility] Start: 01-04-2023 Insertion of cathete r into peripheral vein [facility] Start: 01-04-2023 Introduction of urin dinora catheter [facility] Start: 01-04-2023 Measuring intake and output [facility] Start: 01-04-2023 Providing care accor ding to standard [facility] Start: 01-04-2023 Referral to occupati onal therapist [facility] Start: 01-04-2023 Referral to service [facility] Start: 01-04-2023 Application of elast ic bandage [facility] Start: 01-04-2023 Continuous positive airway pressure ventilation treatment [facility] Start: 01-04-2023 Elevation of affecte d extremity [facility] Start: 01-04-2023 Neurological assessment [facility] Start: 01-04-2023 Wound care [facility] Start: 01-04-2023 End: 01-04-2023 [facility] Start: 01-04-2023 Admission procedure [facility] Start: 10-04-2022 ADVANCE DIRECTIVE DISCUSSION ADVANCE DIRECTIVE DISCUSSION [facility] Start: 08-11-2022 Referral to service [facility] Start: 08-11-2022 End: 08-11-2022 Suicide precautions [facility] Start: 10-03-2022 Colsc flx w/rmvl of tumor polyp lesion snare tq COLONOSCOPY W/LESION REMOVAL [facility] Work Phone: Start: 07-06-2022 Patient discharge [facility] Work Phone: Start: 06-27-2022 COVID-19 VACCINE (4 - Booster for Moderna series) COVID-19 VACCINE (4 - Booster for Moderna series) [facility] Start: 06-04-2022 Influenza vaccination C [facility] Start: 04-21-2022 COVID-19 VACCINE (4 - Booster for Moderna series) COVID-19 VACCINE (4 - Booster for Moderna series) [facility] Start: 03-10-2022 End: 05-10-2022 Comprehensive metabolic 2000 panel - Serum or Plasma COMP METABOLIC PANEL Lab Routine 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) Expected: 03/10/2022, Expires: 05/10/2022 [facility] Work Phone: Comment on above: Expected: 03/10/2022 , Expires: 05/10/2022 Start: 03-10-2022 End: 05-10-2022 levETIRAcetam [Mass/volume] in Serum or Plasma LEVETIRACETAM Lab Routine 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) Expected: 03/10/2022, Expires: 05/10/2022 [facility] Work Phone: Comment on above: Expected: 03/10/2022 , Expires: 05/10/2022 Start: 03-10-2022 End: 05-10-2022 VALPROIC A/DEPAKENE VALPROIC A/DEPAKENE Lab Routine 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) Expected: 03/10/2022, Expires: 05/10/2022 [facility] Work Phone: Comment on above: Expected: 03/10/2022 , Expires: 05/10/2022 Start: 10-04-2021 ADVANCE DIRECTIVE DISCUSSION ADVANCE DIRECTIVE DISCUSSION [facility] Start: 11-20-2020 COVID-19 VACCINE (2 - Moderna 3-dose series) COVID-19 VACCINE (2 - Moderna 3-dose series) [facility] Start: 10-22-2020 LIPID SCREEN LIPID SCREEN [facility] Start: 03-26-2018 Colonoscopy COLONOSCOPY [facility] Start: 03-26-2018 COLORECTAL CANCER SCREENING COLORECTAL CANCER SCREENING [facility] Start: 09-19-2016 FECAL OCCULT BLOOD FECAL OCCULT BLOO D [facility] Start: 11-02-2015 PNEUMOCOCCAL: 65+ (#3) PNEUMOCOCCAL: 65+ (#3) [facility] Start: 11-02-2015 PNEUMOCOCCAL: 65+ (2 - PPSV23 or PCV20) PNEUMOCOCCAL: 65+ (2 - PPSV23 or PCV20) [facility] Start: 07-30-2015 SHINGRIX VACCINE (2 of 3) PALMA GRIX VACCINE (2 of 3) [facility] Start: 2014 PNEUMOVAX AGE 65 AND OVER WITH 5YR LOOKBACK (#1) PNEUMOVAX AGE 65 AND OVER WITH 5YR LOOKBACK (#1) [facility] Start: 06-06-2006 Urine microalbumin profile DTAP,TDAP,TD (1 - Tdap) [facility] Start: 1994 COLOGUARD (FIT-DNA) COLOGUARD (FIT-D NA) [facility] Start: [address] COLONOGRAPHY [facility] Start: [address] [facility] Start: 1967 ANNUAL PCP TEAM EQUAL OPPORTUNITY ASSISTANT RODNEY DISEASE VISIT ANNUAL PCP TEAM CHRONIC DISEASE VISIT [facility] Start: 1967 BP CONTROLLED (<130/80) BP CONTROLLE D (<130/80) [facility] Start: 1967 HEPATITIS C SCREENING HEPATITIS C [facility] Patient Education [facility] Work Phone: Patient referral [facility] Work Phone: [facility] Immunizations Immunization Date Immunization Notes Care Provider Fa alexa 07-21-2022 influenza, injectabl e, quadrivalent, preservative free [facility] 07-21-2022 influenza, seasonal, injectable Dr. Maddie Cantor [facility] 02-24-2022 Covid (Moderna) Dr. Maddie MACIEL [facility] 11-18-2020 Covid (Moderna) Dr. Maddie Cantor [facility] 10-23-2020 Covid (Moderna) Dr. Maddie Cantor [facility] 07-26-2015 influenza, high dose seasonal, preservative-free Miquel Obregon [employer] Work Phone: [facility] 06-04-2015 zoster vaccine, live Miquel guthrie [employer] Work Phone: [facility] 11-02-2014 pneumococcal conjuga te vaccine, 13 valent Miquel Obregon [employer] Work Phone: [facility] 08-04-2014 Influenza virus vaccine [facility] 08-02-2014 influenza, seasonal, injectable Miquel Obregon [employer] Work Phone: [facility] 07-14-2013 influenza virus vacc ine, unspecified formulation Miquel Obregon [employer] Work Phone: [facility] 06-05-2006 tetanus and diphther ia toxoids, adsorbed, preservative free, for adult use (2 Lf of tetanus toxoid and 2 Lf of diphtheria toxoid) Miquel Obregon [employer] Work Phone: [facility] 07-30-2005 influenza virus vacc ine, unspecified formulation Miquel Obregon [employer] Work Phone: [facility] Work Phone: 06-13-2005 tetanus and diphther ia toxoids, adsorbed, preservative free, for adult use (2 Lf of tetanus toxoid and 2 Lf of diphtheria toxoid) Miquel Obregon [employer] Work Phone: [facility] Work Phone: 09-11-1997 pneumococcal polysaccharide vaccine, 23 valent Miquel Obregon [employer]KE [employer]RIER Work Phone: [facility] Work Phone: Payers Date Payer Category Payer Unknown [id number] 2024 Self-pay [id number] 2024 Unknown [id number] 2023 Medicare [id number] 2017 Medicaid [facility] MEDICAID [facility] MEDICAID [id number] 2017-Present [phone] [address] [place] [address] Medicaid [id number] 2017 Medicaid [facility] MEDICAID [facility] ARE [facility] MEDICAID [id number] 2017-Present [phone] [address] [place] [address] Medicaid [id number] 2017 Medicare [id number] 2017 Unknown [id number] 1950 Unknown [id number] 2.840.1.936477.3.579.2.1258 1950 Unknown [id number] 2.16.840.1.077784.3.579.2.1258 1949 Unknown [id number] 2.16.840.1.744844.3.579.2.1258 1950 Unknown [id number] 2.840.1.905864.3.579.2.1259 Medicare [id number] Medicare MEDICARE PART A B [id number] Unknown [id number] 2.16.840.1.620846.3.579.2.462 Unknown [id number] 2.16.840.1.473063.3.579.2.462 Unknown [id number] 2.16.840.1.364536.3.579.2.462 Unknown [id number] 2.16.840.1.941345.3.579.2.462 Unknown [id number] 2.16.840.1.365355.3.579.2.462 Unknown [id number] 2.16.840.1.591050.3.579.2.462 Unknown [id number] 2.16.840.1.261078.3.579.2.462 Unknown [id number] 2.840.1.316939.3.579.2.462 Unknown [id number] 2.840.1.455019.3.579.2.462 Unknown [id number] 2.840.1.623323.3.579.2.462 Unknown [id number] 2.840.1.071816.3.579.2.462 Unknown [id number] 2.840.1.193937.3.579.2.462 Unknown [id number] 2.840.1.606852.3.579.2.462 Unknown [id number] 2.840.1.383336.3.579.2.462 Unknown [id number] 2.840.1.533299.3.579.2.462 Unknown [id number] .840.1.574661.3.579.2.462 Unknown [id number] 2.840.1.769504.3.579.2.462 Unknown [id number] 2.840.1.082873.3.579.2.462 Unknown [id number] 2.840.1.339854.3.579.2.462 Unknown [id number] 2.16840.1.620789.3.579.2.462 Unknown [id number] 2.840.1.722178.3.579.2.462 Social History Date Type Detail Facility Start: 07-31-2015 End: 01-10-2023 Tobacco smoking status NHIS Never smoked tobacco [facility] Start: 11-11-2020 End: 07-31-2022 Alcohol intake Current non-drinker of alcohol (finding) [facility] Start: 1950 Sex Assigned At Not on file C [facility] Start: 01-17-2022 End: 07-31-2022 Exposure to SARS-CoV-2 (event) Not sure [facility] Start: 07-01-2022 End: 01-10-2023 Tobacco smoking status NHIS Unknown if ever smoked [facility] Start: 04-14-2022 None [facility] Start: 07-11-2019 - [facility] Start: 04-14-2022 Non-smoker [facility] Start: 1950 Sex Assigned At Male [facility] Start: 07-31-2015 Tobacco use and exposure Smokeless tobacco non-user [facility] Start: 01-02-2025 Sex Male (finding) [facility] Goals Date Patient Goal Desired Activity /State Functional Status Date Assessment Result Facility 01-18-2023 Functional status Chair [facility] Work Phone: 01-07-2023 Functional status Activity Abili ty With Assist of 1 [facility] Work Phone: 01-06-2023 Functional status Ambulates [facility] Work Phone: Mental Status Date Assessment Result Facility 01-18-2023 Cognitive function Voice/Name [facility] Work Phone: 01-10-2023 Cognitive function Level Of Cons ciousness Awake;Alert;Appropriate;Follow s Commands [facility] Work Phone: 01-07-2023 Cognitive function Voice/Name [facility] Work Phone: 07-06-2022 Cognitive function Drowsy [facility] Work Phone: 07-06-2022 Cognitive function Arousable To Voice/Nam e [facility] Work Phone: Clinical Notes 01-28-2016 to 01-31-2025 Note Date & Type Note Facility 01-31-2025 Evaluation note Diagnosis Onset Date Resolution Bilateral lower extremity edema acute January 31, 2025 11:04am PVD (peripheral vascular disease) acute January 31 11:04am [facility] Work Phone: 1(925) 496-653901-29-2025 Evaluation note* Diagnosis Onset Date Resolution Status Admit Date Bilateral lower extremity edema acute November 01 10:09am PVD (peripheral vascular disease) acute November 01 10:09am [facility] Work Phone: 1(731) 826-501401-29-2025 Evaluation note* Diagnosis Onset Date Resolution Status Admit Date Bilateral lower extremity edema acute November 01 10:09am PVD (peripheral vascular disease) acute November 01 10:09am Bilateral lower extremity edema acute January 31, 2025 11:04am PVD (peripheral vascular disease) acute January 31, 2025 11:04am [facility] Work Phone: 1(285) 192-472004-17-2023 Discharge summary Author [facility] January 18, 2023 2:44pm Note Date/Time January 18, 2023 2:4 4pm [facility] Medical Records Department [address] [place] [address] Discharge Summary 01/18/23 1438 MR#: [id number] Acct: [id number] Name: ANJEL ROSS Rep #:[id number] : 1950 72 From: Kary Recio MD PCP: NILS CANTOR Status:ADM PAIGE Location: [place] [address] Providers Date of Admission: 01/10/23 Date of [...] he had NPH and so was transferred [facility] recently. * He was reviewed there [...] was confirmed from documentation he brought from [facility]. * Total sphn-cd-ilqh time 17 minutes. Total time spent on [...] 270 mg PO DAILY supplement 01/10/23 omega 3-wsx-csl-fish oil 1,000 mg (120 mg-180 mg) capsule [...] valproic acid levels. He was transferred to [facility] where his symptoms were thought to [...] but this improved. Patient was called for mcc and was discharged to the assisted facility on 01/18/2023. He was discharged on p.o. lactulose. He is to follow-up with his primary care doctor and is to have monitoring of his ammonia level in the mcc. Was referred to gastroenterology on outpatient basis [...] (Auto) 44.0 L, Lymph % (Auto) 38.8, [place] % (Auto) 13.7 H, Eos % (Auto) [...] mg Capsule 200 mg PO TID omega 8-wqx-hwc-fish oil 1,000 mg (120 mg-180 mg) Capsule [...] in before D/C Order can be placed): Residential Facility Charges/Coding Visit Charges Inpatient E&M: 16379 Disch Hosp >30min 01/18/23 1444 <Electronically signed by Kary Recio MD> Cosigner Signature (if applicable): CC: Dr. Kary Recio MD; NILS CANTOR~ Signed [facility] Work Phone: 1(579) 237-277004-17-[address] Recio [facility] January 18, 2023 2:38pm Note Date/Time January 18, 2023 2:3 8pm [facility] Medical Records Department [address] [place] [address] Transfer to [facility] MR#: [id number] Acct: [id number] Name: ANJEL ROSS Rep #:[id number] : 1950 72 From: Kary Recio MD PCP: NILS CANTOR Status:ADM PAIGE Certification of patient admission REQUIRED AT TIME OF ADMISSION. I CERTIFY THAT POST-HOSPITAL ECF SERVICES ARE REQUIRED TO BE GIVEN ON AN IN-PATIENT BASIS BECAUSE OF THE ABOVE NAMED PATIENT'S NEED FOR FCI CARE ON A CONTINUING BASIS FOR THE [...] he had NPH and so was transferred [facility] recently. * He was reviewed there [...] was confirmed from documentation he brought from [facility]. * Total tmeb-lw-pvyx time 17 minutes. Total time spent on [...] mg Capsule 200 mg PO TID omega 1-ibz-mms-fish oil 1,000 mg (120 mg-180 mg) Capsule [...] in before D/C Order can be placed): Residential Facility 01/18/23 1438 <Electronically signed by Kary Recio MD> Cosigner Signature (if applicable): CC: Dr. Kary Recio MD; Dr. Nina Wilder MD; NILS CANTOR ~ [facility] Work Phone: 1(659) 504-779704-16-[address] Wilder [facility] January 17, 2023 3:08pm Note Date/Time January 17, 2023 7:4 6am [facility] Medical Records Department [address] [place] [address] Progress Note - Hospitalist 01/17/23 0746 MR#: [id number] Acct: [id number] Name: ANJEL ROSS Rep #:[id number] : 1950 72 From: Nina Wilder MD PCP: NILS CANTOR Status:ADM PAIGE Location: [place] [address] Reason for Visit Reason for Visit: Diagnoses [...] 41.2 L, Lymph % (Auto) 41.7 H, [place] % (Auto) 13.0 H, Eos % (Auto) [...] 14:28 EDT Reading Location ID and State: [facility] / [place] , Service support , Rhythm Strip Rhythm [...] for their facility after his d/c from [facility] -PT recommends rehab/snf/tcu -Given mental health [...] [facility] had [facility]. -He was reviewed there and the [...] 30 mins Charges/Coding Visit Charges Inpatient E&M: 03852 Subs Hosp L2 01/17/23 1508 <Electronically signed by Nina Wilder MD> Cosigner Signature (if applicable): CC: ~ Signed [facility] Work Phone: 1(905) 851-463104-15-[address] Wilder [facility] January 16, 2023 11:52am Note Date/Time January 16, 2023 10: 27am [facility] Medical Records Department [address] [place] [address] Progress Note - Hospitalist 01/16/23 1026 MR#: [id number] Acct: [id number] Name: CODYANJEL Rae Rep #:[id number] : 1950 72 From: Nina Wilder MD PCP: NILS CANTOR Status:ADM PAIGE Location: [place] [id number] Reason for Visit Reason for Visit: Diagnoses [...] Neut % (Auto) 47.5, Lymph % (Auto)36.4, [place] % (Auto) 12.1 H, Eos % (Auto) [...] for their facility after his d/c from [facility] -PT recommends rehab/snf/tcu -Given mental health [...] [facility]. -He was reviewed there and the [...] 30 mins Charges/Coding Visit Charges Inpatient E&M: 97986 Subs Hosp L2 01/16/23 1152 <Electronically signed by Nina Wilder MD> Cosigner Signature (if applicable): CC: ~ Signed [facility] Work Phone: 1(132) 844-245504-14-[address] Wilder [facility] January 15, 2023 9:43am Note Date/Time January 15, 2023 9:4 3am [facility] Medical Records Department [address] [place] [address] Progress Note - Hospitalist 01/15/23 0941 MR#: [id number] Acct: [id number] Name: CODYANJEL Mcbride Rep #:[id number] : 1950 72 From: Nina Wilder MD PCP: NILS CANTOR Status:ADM PAIGE Location: [place] [id number] Reason for Visit Reason for Visit: Diagnoses [...] H, RDW Coeff of Ronna 13.2, Plt [id number], MPV 8.4, Immature Gran % (Auto) 1.600 H, Neut % (Auto) 49.3, Lymph % (Auto)34.4, [place] % (Auto) 12.8 H, Eos % (Auto) [...] for their facility after his d/c from [facility] -PT recommends rehab/snf/tcu -Given mental health history [...] [facility]. -He was reviewed there and the [...] 20 mins Charges/Coding Visit Charges Inpatient E&M: 57416 Subs Hosp L1 01/15/23 0943 <Electronically signed by Nina Wilder MD> Cosigner Signature (if applicable): CC: ~ Signed [facility] Work Phone: 1(395) 895-301904-13-[address] Wilder [facility] January 14, 2023 1:37pm Note Date/Time January 14, 2023 8:3 9am [facility] Medical Records Department [address] [place] [address] Progress Note - Hospitalist 01/14/23837 MR#: [id number] Acct: [id number] Name: ANJEL ROSS Rep #:[id number] : 1950 72 From: Nina Wilder MD PCP: NILS CANTOR Status:ADM PAIGE Location: [place] [address] Reason for Visit Reason for Visit: Diagnoses [...] for their facility after his d/c from [facility] -PT recommends rehab/snf/tcu -Given mental health history [...] he had [facility]. -He was reviewed there and the [...] 20 mins Charges/Coding Visit Charges Inpatient E&M: 39756 Subs Hosp L1 01/14/23 1337 <Electronically signed by Nina Wilder MD> Cosigner Signature (if applicable): CC: ~ Signed [facility] Work Phone: 1(774) 677-344904-12-[address] Wilder [facility] January 13, 2023 9:59am Note Date/Time January 13, 2023 9:5 9am [facility] Medical Records Department [address] [place] [address] Progress Note - Hospitalist 01/13/23 0956 MR#: [id number] Acct: [id number] Name: ANJEL ROSS Rep #:[id number] : 1950 72 From: Nina Wilder MD PCP: NILS CANTOR Status:ADM PAIGE Location: [place] [id number] Reason for Visit Reason for Visit: Diagnoses [...] for their facility after his d/c from [facility] -PT recommends rehab/snf/tcu -Given mental health history [...] he had [facility]. -He was reviewed there and the [...] 30 mins Charges/Coding Visit Charges Inpatient E&M: 54171 Subs Hosp L2 01/13/23 0959 <Electronically signed by Nina Wilder MD> Cosigner Signature (if applicable): CC: ~ Signed [facility] Work Phone: 1(397) 630-441804-11-[address] Wilder [facility] January 12, 2023 8:57am Note Date/Time January 12, 2023 8:5 7am [facility] Medical Records Department [address] [place] [address] Progress Note - Hospitalist 01/12/23 0853 MR#: [id number] Acct: [id number] Name: ANJEL ROSS Rep #:[id number] : 1950 72 From: Nina Wilder MD PCP: NILS CANTOR Status:ADM PAIGE Location: [place] [address] Reason for Visit Reason for Visit: Diagnoses [...] % (Auto) 37.3 L, Lymph % (Auto)40.6, [place] % (Auto) 17.9 H, Eos % (Auto) [...] for their facility after his d/c from [facility] -PT recommends rehab/snf/tcu -Given mental health history [...] he had [facility]. -He was reviewed there and the [...] 30 mins Charges/Coding Visit Charges Inpatient E&M: 93812 Subs Hosp L2 01/12/23 0857 <Electronically signed by Nina Wilder MD> Cosigner Signature (if applicable): CC: ~ Signed [facility] Work Phone: 1(891) 798-444204-10-[address] Wilder [facility] January 11, 2023 5:37pm Note Date/Time January 11, 2023 7:2 1am [facility] Medical Records Department [address] [place] [address] Progress Note - Hospitalist 01/11/23 0721 MR#: [id number] Acct: [id number] Name: ANJEL ROSS Rep #:[id number] : 1950 72 From: Nina Wilder MD PCP: NILS CANTOR Status:ADM PAIGE Location: [place] [address] Reason for Visit Reason for Visit: Diagnoses [...] % (Auto) 44.8 L, Lymph % (Auto)35.5, [place] % (Auto) 16.0 H, Eos % (Auto) [...] for their facility after his d/c from [facility] -PT recommends rehab/snf/tcu -Given mental health [...] he had [facility]. -He was reviewed there and the [...] 30 mins Charges/Coding Visit Charges Inpatient E&M: 25128 Subs Hosp L2 01/11/23 1737 <Electronically signed by Nina Wilder MD> Cosigner Signature (if applicable): CC: ~ Signed [facility] Work Phone: 1(289) 970-760204-09-2023 History and physical note Author Dr. Recio [facility] January 10, 2023 3:34pm Note Date/Time January 10, 2023 9:22 am [facility] Medical Records Department [address] [place] [address] H&P Exam - Hospitalist 01/10/23 0911 MR#: [id number] Acct: [id number] Name: ANJEL ROSS Rep #:[id number] : 1950 72 From: Kary Recio MD PCP: NILS CANTOR Status:ADM PAIGE Location: [address] - General General Date of Admission: 01/10/23 [...] valproic acid levels. He was transferred to [facility] where his symptoms were thought to [...] they were concerned he wouldnt be safe int facility. He is therefore been admitted to be managed for debility and generalized weakness and is for placement. [facility] Medical History Anxiety Benign essential HTN [...] DAILY supplement 01/10/23[History Last Taken Unknown] omega 0-vcy-sit-fish oil 1,000 mg (120 mg-180 mg) capsule [...] Neut % (Auto) 53.9, Lymph % (Auto)25.6, [place] % (Auto) 16.6 H, Eos % (Auto) [...] Clarity Clear, Urine pH 6.0, Ur Specific [place] 1.015, Urine Protein 15 H, Urine Glucose [...] 4:01 EDT Reading Location ID and State: [facility] / [place] , Service support , Assessment & Plan [...] he had NPH and so was transferred [facility] recently. * He was reviewed there [...] confirmed from [facility]. * Total xjvu-jr-jzjb time 17 minutes. Total time spent on evaluation and management of patient, reviewing chart, discussing plan with patient, discussion with nursing and ancillary staff as well as documentation: 60 mins Charges/Coding Visit Charges Inpatient E&M: 42456 Init Hosp L2 Procedures Hospitalists Procedures: 44313 Advncd Care Plan 30 Min 01/10/23 1534 <Electronically signed by Kary Recio MD> Cosigner Signature (if applicable): CC: Dr. Kary Recio MD; NILS CANTOR~ Signed [facility] Work Phone: 1(354) 660-971604-09-2023 Discharge summary Author Breana Avila [facility] January 10, 2023 9:31am Note Date/Time January 10, 2023 3:30 am [facility] Medical Records Department [address] [place] [address] Emergency Department Summary 01/10/23 MR#: [id number] Acct: [id number] Name: ANJEL ROSS Rep #:[id number] : 1950 72 From: Hilario Malik MD PCP: NILS CANTOR Status:REG ER Location: ED ADDENDUM by Dr. Breana Avila DO on 01/10/23 at 0931 [facility] staff called into the ER to say that they cannot accept patient back to their facility as he is high risk for falls and too weak to go back to their facility it was felt he needed admitted and evaluated for assisted facility placement. Case discussed with hospitalist to [...] in person neurology, he was sent to [facility] they excepted him, they did not think he had NPH but rather that his ataxia was related to his high valproate levels. They recommended he be on valproic acid 1000 mg 3 times daily, and Keppra 1500 mg twice daily for his epilepsy. Apparently he just arrived back to assisted living from [facility] past day. There is no other information available at this time. The patient denies having any focal complaints. He initially thought he was at [facility], but he was redirectable and [facility] was his second guess. [facility] Medical History Anxiety Benign essential HTN BPH [...] bismuth subsalicylate 262 mg/15 mL oral suspension ([employer] Bismuth) 524 mg PO Q30- 60M PRN [...] PROSTATE 01/04/23 [History Last Taken 01/04/23] vitamins A,C,P-gkgj-rhfqun 2,148 mcg-113 mg-45 mg-17.4 mg tablet (Eye [...] IV fluids while resting here overnight during overnight caregiver. His urinalysis is negative for infection and [...] a higher level of care like a assisted facility and he states no that he [...] % (Auto) 53.9 Lymph % (Auto) 25.6 [place] % (Auto) 16.6 H Eos % (Auto) [...] Color Urine Clarity Urine pH Ur Specific [place] Urine Protein Urine Glucose (UA) Urine Ketones [...] (Auto) Neut % (Auto) Lymph % (Auto) [place] % (Auto) Eos % (Auto) Baso % (Auto) Absolute Neuts (auto) Absolute Lymphs (auto) Nucleated RBC % Macrocytosis Sodium Potassium Chloride Carbon Dioxide Anion Gap BUN Creatinine Estim Creat Clear Calc Est GFR (MDRD) Af Amer Est GFR (MDRD) Non-Af BUN/Creatinine Ratio Glucose Calcium Troponin I High Sens Urine Color Yellow Urine Clarity Clear Urine pH 6.0 Ur Specific [place] 1.015 Urine Protein 15 H Urine Glucose [...] capsule 10 mg PO QHS bismuth subsalicylate [[employer]ismuth] 262 mg/15 mL suspension 524 mg [...] offered higher level of care such as assisted, and he declined/refuses. Ambulatory in ED with a walker at baseline. Disposition Disposition: Home, Self Care What to do if you have Problems For any increased pain, shortness of breath, bleeding, nausea or vomiting, chestpain, or any unexpected problems, contact your Primary Care Provider. Call [facility] ([phone]) or report to the closest Emergency Room. Call 911 if necessary. 01/10/23710 <Electronically signed by Hilario Malik MD> Cosigner Signature (if applicable): CC: NILS CANTOR ~ Signed [facility] Work Phone: 1(194) 269-854804-09-2023 Discharge summary Author Breana Avila [facility] January 10, 2023 9:31am Note Date/Time January 10, 2023 3:30 am [facility] Medical Records Department [address] [place] [address] Emergency Department Summary 01/10/23 MR#: [id number] Acct: [id number] Name: ANJEL ROSS Rep #:[id number] : 1950 72 From: Hilario Malik MD PCP: NILS CANTOR Status:REG ER Location: ED ADDENDUM by Dr. Breana Avila DO on 01/10/23 at 0931 [facility] staff called into the ER to say that they cannot accept patient back to their facility as he is high risk for falls and too weak to go back to their facility it was felt he needed admitted and evaluated for assisted facility placement. Case discussed with hospitalist to [...] in person neurology, he was sent to [facility] they excepted him, they did not think he had NPH but rather that his ataxia was related to his high valproate levels. They recommended he be on valproic acid 1000 mg 3 times daily, and Keppra 1500 mg twice daily for his epilepsy. Apparently he just arrived back to assisted [facility] from [facility] past day. There is no other information available at this time. The patient denies having any focal complaints. He initially thought he was at [facility], but he was redirectable and [facility] was his second guess. [facility] Medical History Anxiety Benign essential HTN BPH [...] bismuth subsalicylate 262 mg/15 mL oral suspension ([employer]ism[employer]) 524 mg PO Q30- 60M PRN [...] PROSTATE 01/04/23 [History Last Taken 01/04/23] vitamins A,C,I-rvvv-tpeqht 2,148 mcg-113 mg-45 mg-17.4 mg tablet (Eye [...] IV fluids while resting here overnight during overnight caregiver. His urinalysis is negative for infection and [...] a higher level of care like a assisted facility and he states no that he [...] % (Auto) 53.9 Lymph % (Auto) 25.6 [place] % (Auto) 16.6 H Eos % (Auto) [...] Color Urine Clarity Urine pH Ur Specific [place] Urine Protein Urine Glucose (UA) Urine Ketones [...] (Auto) Neut % (Auto) Lymph % (Auto) [place] % (Auto) Eos % (Auto) Baso % (Auto) Absolute Neuts (auto) Absolute Lymphs (auto) Nucleated RBC % Macrocytosis Sodium Potassium Chloride Carbon Dioxide Anion Gap BUN Creatinine Estim Creat Clear Calc Est GFR (MDRD) Af Amer Est GFR (MDRD) Non-Af BUN/Creatinine Ratio Glucose Calcium Troponin I High Sens Urine Color Yellow Urine Clarity Clear Urine pH 6.0 Ur Specific [place] 1.015 Urine Protein 15 H Urine Glucose [...] 4:01 EDT Reading Location ID and State: [facility] / [place] , Service support , Rhythm Strip Rhythm [...] capsule 10 mg PO QHS bismuth subsalicylate [[employer]ismuth] 262 mg/15 mL suspension 524 mg [...] offered higher level of care such as assisted, and he declined/refuses. Ambulatory in ED with a walker at baseline. Disposition Disposition: Home, Self Care What to do if you have Problems For any increased pain, shortness of breath, bleeding, nausea or vomiting, chestpain, or any unexpected problems, contact your Primary Care Provider. Call [facility] ([phone]) or report to the closest Emergency Room. Call 911 if necessary. 01/10/23 0711 <Electronically signed by Hilario Malik MD> Cosigner Signature (if applicable): CC: NILS CANTOR ~ Signed [facility] Work Phone: [phone] [id number] NoteHNO ID: [id number] Author: Anitha Burnette RN Service: Nursing Author Type: Registered Nurse Type: Nursing Progress Note Filed: 01/09/2023 2:00 PM Note Text: Updated patient's sister, Cha, on status and discharge tonight.[facility]04-07-2023 NoteHNO ID: [id number] Author: Adán De MD Service: Neurology General [...] gait difficulties who is presenting to [facility] as a transfer from [facility] d/t concerns of NPH. Patient had [...] add on ammonia levels Home regimen in [place] is incorrect, should not be on redundant therapy with both liquid and tab Depakote (likely 2 separate orders placed at different time frames), per epilepsy notes, he is to be on 1000 mg TID Outpatient follow up with epilepsy service post discharge Adán De MD [facility]23 NoteHNO ID: [id number] Author: Lorene Ortiz MD Service: Hospital Medicine [...] Date: 01/04/2023 Images were obtained outside of [facility] OT-Chest 1 View IMPORT Result Date: 01/04/2023 Images were obtained outside of [facility] Most recent EKG normal sinus rhythm Blood [...] HTN, and KYA He was admitted to [facility] 5 days prior due to weakness [...] [facility] Sherman [facility] November 16, 2022 6:41pm Note Date/Time November 16, 2022 6:41pm [facility] Medical Records Department [address] [place] [address] Emergency Department Summary 11/16/22 MR#: [id number] Acct: [id number] Name: ANJEL ROSS Rep #:[id number] : 1950 72 From: Tate Sherman MD PCP: ZACKERY De Luna Status: PRE ER Location: ED HPI History of Present Illness Chief Complaint: Male Pain/Injury Narrative Narrative: Patient presents with scrotal bleeding from the ECF. Patient has no complaints. Seems the bleeding had subsided upon ED presentation. [facility] Medical History Anxiety Benign essential HTN BPH [...] bismuth subsalicylate 262 mg/15 mL oral suspension ([employer] Bismuth) 524 mg PO Q30- 60M PRN [...] capsule 10 mg PO QHS bismuth subsalicylate [[employer] Bismuth] 262 mg/15 mL suspension 524 mg [...] (Reason: Congestion) Primary Care Provider: Becka Hines POND TENDER Referrals: Becka Hines POND TENDER, POND TENDER-C [Primary Care Provider] - Activity Restrictions/Additional Instructions: [...] your Primary Care Provider. Call [facility] ([phone]) or report to the closest Emergency Room. Call 911 if necessary. 11/16/22 [id number] <Electronically signed by Tate Sherman MD> Cosigner Signature (if applicable): CC: ZACKERY Alvarez Donny ~ Signed [facility] Work Phone: [phone]) 883-258612-27-2022 Miscellaneous Notes* Telephone Encounter - Yury Gerber [...] [facility]acy [facility]: [facility] Pharmacy Number: [id number] Generic/ brand: 30 or 90 day supply requested: 90 Last appointment: 03/06/22 Next Appointment: none Patient of Dr. Chung documented in this encounterMer[facility]10-28-2022 NoteHNO ID: [id number] Author: Mateo Benton MD Service: ? Author Type: Physician Type: Progress Notes Filed: 07/31/2022 9:27 AM Note Text: Subjective: Patient is status post a colonoscopy completed at [facility] on 07/06/2022. Patient was noted to [...] need to have another colonoscopy in 5 years.[facility]10-28-2022 History of Present illness Narrative* Mateo Benton MD - 07/31/2022 9:23 AM EDT Subjective: Patient is status post a colonoscopy completed at [facility] on 07/06/2022. Patient was noted to [...] colonoscopy in 5 years. documented in this encounterMercy [facility] Hospital10-11-2022 Miscellaneous Notes* Telephone Encounter - Georgie Huitron - 07/14/2022 2:35 PM EDT They will call back to schedule.Georgie Huitron * Telephone Encounter - Elizabeth Ruth LPN - 07/14/2022 1:26 PM EDT Please call patient to schedule a virtual or office visit to view colonoscopy results. Thank you. Anjel# [phone] * Telephone Encounter - Silvia Huitron - 07/14/2022 1:05 PM EDT Patient called requesting results from colonoscopy. documented in this encounterMercy [facility] Hospital07-12-2022 NoteHNO ID: [id number] Author: Madelin Ferguson PA-C Service: ? Author Type: Physician Die Repairer Forging Type: Progress Notes Filed: 04/27/2022 9:34 AM Note Text: HISTORY AND PHYSICAL Anjel Mcbride Cody 1950 REFERRING PHYSICIAN: Maddie Cantor DO CHIEF COMPLAINT: Consult (colonoscopy consult) HPI: The patient is a 71 year old male referred for endoscopy. Anjel notes a personal history of colon cancer diagnosed in 2014. He is s/p right hemicolectomy 01/21/15 which showed invasive adenocarcinoma. Most recent colonoscopy 03/26/[address] Anjel Nagy at [facility]. Patient was noted to have a [...] mg by mouth daily at bedtime. - Bqxxy-1-SPC-EPA-Fish Oil (FISH OIL) 1,000 mg (120 mg-180 [...] chloride (KLOR-CON) 20 mEq (more content not included)...[facility]06-10-2022 Miscellaneous Notes* Telephone Encounter - Gerri [...] three times daily. Authorizing Provider: MIQUEL OBREGON APRN.KRISTEN * Telephone Encounter - Gerri De La [...] Medication Concern Person Calling Silvia Rehman from [facility] [employer] Name of medication Depakote XR. Concern with medication Nurse advised pt is having difficulty swallowing pill and since XR she can't crush. Nurse is asking if can get non XR or liquid so it's not difficult for pt? Patient of Dr. Chung documented in this encounterMercy [facility] Hospital06-03-2022 NoteHNO ID: [id number] Author: Nils Marie APRN.POTATO PANCAKE FRIER Service: ? Author Type: Nurse Practitioner Type: Progress Notes Filed: 03/10/2022 9:06 AM Note Text:[facility]06-03-2022 NoteHNO ID: [id number] Author: Nils Marie APRN.POTATO PANCAKE FRIER Service: ? Author Type: Nurse Practitioner Type: Progress Notes Filed: 03/10/2022 9:01 AM Note Text: [facility] VIRTUAL VISIT HISTORY OF PRESENT [...] Retired. Lives in assisted living place in [place], [place] Driving: no Mood: ok Memory: poor [...] mg by mouth daily at bedtime. - Xwlfg-5-STK-EPA-Fish Oil (FISH OIL) 1,000 mg (120 mg-180 [...] AGE 6 - COLONOSCOP W/ OR W/O [facility] SPEC 09/11/2005 Colonoscopy - COLONOSCOP W/ OR W/O [facility] SPEC 12/06/14 Colonoscopy - COLONOSCOP W/ OR W/O [facility] SPEC 03/25/16 Colonoscopy outpt [facility] - COLONS W/REM POLYP HT BX 03/26/2017 - EG (more content not included)...[facility]06-03-2022 History of Present illness Narrative* Nils Marie APRN.POTATO PANCAKE FRIER - 03/06/2022 2:10 PM EDT [facility] VIRTUAL VISIT HISTORY OF PRESENT ILLNESS: Anjel Ross is a 71 year old male who is diagnosed with seizures, and presents today for virtual visit. They are an established patient of Dr. Chung'kristine and was last seen on 11/11/2020. Seizures: None that he can remember [facility] AED's: LEV 1500mg BID VPA 1000mg TID Pregabalin 200mg TID In other health,stable for what he can tell me and staff around him. Occupation: Retired. Lives in assisted living place in [place], [place] Driving: no Mood: ok Memory: poor [...] 10 mg by mouth daily at bedtime. Hishh-8-MKR-EPA-Fish Oil (FISH OIL) 1,000 mg (120 mg-180 [...] CIRCUMCISION,OTHR AGE 6 COLONOSCOP W/ OR W/O [facility] SPEC 09/11/2005 Colonoscopy COLONOSCOP W/ OR W/O [facility] SPEC 12/06/14 Colonoscopy COLONOSCOP W/ OR W/O [facility] SPEC 03/25/16 [facility]pt [facility] [...] ANGIOPLASTY, ASHD Cancer Father LUNG Heart Father [place] X 3 Heart Maternal Aunt [place] Diabetes Maternal Aunt other (EPILEPSY) Paternal Grandfather [...] 03/06/2022 2:10 PM EDT documented in this encounterMercy [facility] Hospital05-26-2022 Miscellaneous Notes* Telephone Encounter - Miquel Obregon APRN.CNP - 02/26/2022 1:33 PM EDT The following approved medication requests have been transmitted electronically. Signed Prescriptions Disp Refills levETIRAcetam (KEPPRA) 750 mg tablet 120 tablet 0 Si TABLETS (1,500MG) BY MOUTH 2 TIMES A DAY DX: / NURSE TO REORDER CHERIE: No Authorizing Provider: MIQUEL OBREGON APRN.CNP documented in this encounterMercy Memorial Hospital05-06-2022 Miscellaneous Notes* Telephone Encounter - Miquel Obregon APRN.CNP - 02/06/2022 10:12 AM EDT The following approved medication requests have been transmitted electronically. Signed Prescriptions Disp Refills divalproex ER (DEPAKOTE ER) 500 mg 24 hr tablet 180 tablet 0 Sig: Take 2 tablets by mouth three times daily. CHERIE: No Authorizing Provider: MIQUEL OBREGON documented in this encounterMercy Memorial Hospital04-26-2016 History of Past illness Narrative* Problem Noted [...] of this encounter (statuses as of 02/06/2022) [facility] of Past illness Narrative* Problem Noted [...] of this encounter (statuses as of 03/10/2022) [facility] of Past illness Narrative* Problem Noted [...] of this encounter (statuses as of 03/13/2022) [facility] of Past illness Narrative* Problem Noted [...] of this encounter (statuses as of 07/14/2022) [facility] of Past illness Narrative* Problem Noted [...] of this encounter (statuses as of 07/31/2022) [facility] History of Past illness Narrative* Problem Noted [...] of this encounter (statuses as of 10/05/2022) [facility] note* Diagnosis 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)- Primary documented in this encounter [facility] noteNo assessment information availableWRiverside Methodist Hospital Work Phone: Evaluation note* Diagnosis Personal history of colon cancer- Primary Personal history of malignant neoplasm of large intestine History of colonic polyps Personal history of colonic polyps documented in this encounter [facility] note* Diagnosis Onset Date Resolution Status Ataxia acute Hypokalemia acute Serum sodium valproate above therapeutic range acute Encounter for medical screening examination acute Weakness acute [facility] Work Phone: Evaluation note* Diagnosis Onset Date Resolution Status Ataxia acute Hypokalemia resolved Serum sodium valproate above therapeutic range resolved Encounter for medical screening examination acute Weakness acute [facility] Work Phone: Hospital Discharge instructions Additional Instructions You have a very small area of scrotal bleeding if this happens again put pressure on the scrotum for 15 minutes.[facility] Work Phone: Hospital Discharge instructions Additional Instructions Imaging of brain/head and low back and negative for nothing acute, old L1 compression fracture noted and stable.[facility] Work Phone: Hospital Discharge instructions Additional Instructions Patient again has a normal work-up including a normal valproic acid level. He was offered higher level of care such as assisted, and he declined/refuses. Ambulatory in ED with a walker at baseline.[facility] Work Phone: Reason for referral (narrative)No reason for referral information availableWRiverside Methodist Hospital Work Phone: Summary Purpose Family History No Family History Records Found Relationship Condition Age at Onset Recorded Date/T anh mother Chronic obstructive pulmonary disease Unk nown Coronary artery disease Unknown father Malignant neoplasm Unknown Cardiac disease Unknown Myocardial infarction Unknown aunt Coronary artery disease Unknown Advance Directives No Advanced Directives Records FoundDocuments on File Type Date Recorded Patient Patient Transportation Driver Expl anation Advance Directive(s) 03/18/2020 12:37 PM Advance Directive(s) 02/21/2020 1:12 PM Advance Directive(s) 12/08/2019 4:35 PM Advance Directive(s) 05/05/2016 10:27 AM Advance Directive(s) 12/27/2015 9:39 AM Advance Directive(s) 12/13/2015 10:23 AM Advance Directive Response Recorded Date/ Time Advance Directives Yes May 27, 2018 9:42am Living Will Yes July 01, 2022 1:39pm Power of Transit Coach Operator Yes June 1:39pm Name of Medical Power of Transit Coach Operator MARLY CARDENAS HEDY CONTI July 01, 2022 1:39pm Documents on File Type Date Recorded Patient Patient Transportation Driver Expl anation Advance Directive(s) 05/05/2016 10:27 AM Advance Directive Response Recorded Date/ Time Name of Medical Power of Transit Coach Operator MARLY NORTON CONTI July 01, 2022 12:39pm Advance Directives Yes May 27, 2018 8:42am Living Will No August 11 3:00pm Power of Transit Coach Operator No August 11, 2022 3:00pm Advance Directive Response Recorded Date/ Time Name of Medical Power of Transit Coach Operator SUSHMA MORALES November 16, 2022 6:13pm Advance Directives Yes May 27, 2018 8:42am Living Will Yes November 16 6:13pm Power of Transit Coach Operator Yes November 16, 2022 6:13pm Advance Directive Response Recorded Date/ Time Name of Medical Power of Transit Coach Operator SUSHMA MORALES November 16, 2022 7:13pm Name of Medical Power of Transit Coach Operator unknown December 31, 2022 6:02am Advance Directives Yes May 27, 2018 9:42am Living Will Yes December 31, 2022 6:02am Power of Transit Coach Operator Yes December 31 6:02am Advance Directive Response Recorded Date/ Time Name of Medical Power of Transit Coach Operator SUSHMA MORALES November 16, 2022 7:13pm Name of Medical Power of Transit Coach Operator unknown December 31, 2022 6:02am Name of Medical Power of Transit Coach Operator DREA CONTI January 04, 2023 8:30pm Name of Medical Power of Transit Coach Operator ? January 10, 2023 1:42am Advance Directives Yes May 27, 2018 9:42am Living Will Yes January 10, 2023 1:42am Power of Transit Coach Operator Yes January 10 1:42am Advance Directive Response Recorded Date/ Time Name of Medical Power of Transit Coach Operator SUSHMA MORALES November 16, 2022 7:13pm Name of Medical Power of Transit Coach Operator unknown December 31, 2022 6:02am Name of Medical Power of Transit Coach Operator DREA CONTI January 04, 2023 8:30pm Name of Medical Power of Transit Coach Operator Drea Conti (sushma) January 10, 2023 10:23am Advance Directives Yes May 27, 2018 9:42am Living Will Yes January 10, 2023 10:23am Power of Transit Coach Operator Yes January 10 10:23am Advance Directive Response Recorded Date/ Time Advance Directives Yes July 12, 2020 10:01am Living Will Yes January 10, 2023 10:23am Power of Transit Coach Operator Yes January 10 10:23am Advance Directive Response Recorded Date/ Time Advance Directives Yes July 12, 2020 9:01am Living Will Yes January 10, 2023 9:23am Power of Transit Coach Operator Yes January 10 9:23am Advance Directive [...] for medical screening examination Weakness Chief Complaint FCI LABWORK FCI LABWORK LAB WORK FCI LAB WORK Chief Complaint FCI LAB WOR K LABWORK Chief Complaint FCI LAB WOR K FCI LAB WORK LABWORK Chief Complaint FCI LAB WOR K LABWORK FCI LAB WORK Chief Complaint FCI LAB WOR K LABWORK FCI LAB WORK LABWORK Chief Complaint FCI LAB WOR K LABWORK FCI LAB WORK LABWORK FCI LAB WORK Chief Complaint FCI LAB WOR K LABWORK FCI LAB WORK LABWORK FCI LAB WORK LABWORK Chief Complaint FCI LAB WOR K LABWORK FCI LAB WORK LABWORK FCI LAB WORK FCI LAB WORK LABWORK Chief Complaint FCI LAB WOR K LABWORK FCI LAB WORK LABWORK FCI LAB WORK FCI LAB WORK LABWORK FCI LAB WORK Chief Complaint FCI LAB WOR K LABWORK FCI LAB WORK FCI LAB WORK LABWORK FCI LAB WORK FCI LAB WORK Chief Complaint LABWORK FCI LAB WORK FCI LAB WORK LABWORK FCI LAB WORK FCI LAB WORK FCI LAB WORK LABWORK Chief Complaint Admit Date [...] LAB WORK January 02, 2025 5:00 am [facility] LAB WORK January 03, 2025 5: 00am [...] 5:00am PVD February 13, 2025 9:06a m [facility] LAB WORK February 28, 2025 5:0 0am [facility] LAB WORK April 03, 2025 5:0 0am [facility] LAB WORK April 24, 2025 4: 00am [facility] LAB WORK May 01, 2025 6: 05am [facility] LAB WORK May 08, 2025 4 :00am Reason for Visit Admit Date Bilateral lower extremity edema January 312024 11:04am PVD (peripheral vascular disease) January 31, 2025 11:04am Additional Source Comments (unrecognized sect ion and content) No Status Records FoundNo Status Records FoundNo Status Records FoundNo Status Records FoundNo Status Records Found INFORMATION SOURCE (unrecogn ized section and content) DATE CREATED AUTHOR 03/23/2018 [facility] DATE CREATED AUTHOR AUTHOR'S ORGANIZ ATION 08/01/2022 [facility] DATE CREATED AUTHOR AUTHOR'S ORGANIZ ATION 01/16/2023 [facility] DATE CREATED AUTHOR AUTHOR'S ORGANIZ ATION 04/27/2024 [facility] EPIC DATE CREATED AUTHOR AUTHOR'S ORGANIZ ATION 06/10/2025 [facility] Source Comments (unrecognize d section and content) In the event this informatio n is protected by the Federal Confidentiality of Alcohol and Drug Abuse Patient Records regulations: The Federal rules restrict any use of the information to criminally investigate or prosecute any alcohol or drug abuse patient.[facility] HospitalIn the event this information is protected by the Federal Confidentiality of Alcohol and Drug Abuse Patient Records regulations: The Federal rules restrict any use of the information to criminally investigate or prosecute any alcohol or drug abuse patient.[facility] HospitalIn the event this information is protected by the Federal Confidentiality of Alcohol and Drug Abuse Patient Records regulations: The Federal rules restrict any use of the information to criminally investigate or prosecute any alcohol or drug abuse patient.[facility] HospitalIn the event this information is protected by the Federal Confidentiality of Alcohol and Drug Abuse Patient Records regulations: The Federal rules restrict any use of the information to criminally investigate or prosecute any alcohol or drug abuse patient.[facility] HospitalIn the event this information is protected by the Federal Confidentiality of Alcohol and Drug Abuse Patient Records regulations: The Federal rules restrict any use of the information to criminally investigate or prosecute any alcohol or drug abuse patient.[facility] HospitalIn the event this information is protected by the Federal Confidentiality of Alcohol and Drug Abuse Patient Records regulations: The Federal rules restrict any use of the information to criminally investigate or prosecute any alcohol or drug abuse patient.[facility] HospitalIn the event this information is protected by the Federal Confidentiality of Alcohol and Drug Abuse Patient Records regulations: The Federal rules restrict any use of the information to criminally investigate or prosecute any alcohol or drug abuse patient.[facility] Reason for Visit (unrecogniz ed section and content) Reason Comments Refill Request Reason Comments Follow Up Refill Request Seizures Reason Comments Medication Question Depakote XR Reason Comments Results Reason Comments Follow Up Review colonoscopy r esults Reason Onset Date Comments Refill Request 09/29/2022 Care Teams (unrecognized sec tion and content) Rehabilitation Caseworker Relationship Specialty Start Date End Date Maddie Cantor [address] [place] [address] PCP - General Internal Medicine 02/21/20 Rehabilitation Caseworker Relationship Specialty Start Date End Date Maddie Cantor [address] [place] [address] PCP - General Internal Medicine 02/21/20 Rehabilitation Caseworker Relationship Specialty Start Date End Date Maddie Cantor [address] [place] [address] PCP - General Internal Medicine 02/21/20 Rehabilitation Caseworker Relationship Specialty Start Date End Date Maddie Cantor [place] [address] [place] [address] PCP - General Internal Medicine 02/21/20 Team Status: Active Member Role Status Dates Becka Hines POND TENDER, POND TENDER-C Family Provider Active No Primary Care Physician Primary Care Provider Active Team Status: Inactive Member Role Status Dates Becka Alvarez Donny POND TENDER, POND TENDER-C Primary Care Provider Act ashish Dr. Donovan Skaggs MD Attending Provider, Emergency Provi tsering Active Team Status: Inactive Member Role Status Dates Dr. Tate Sherman MD Emergency Provider Active No Primary Care Physician Primary Care Provider Active Team Status: Active Member Role Status Dates Becka Alvarez Donny POND TENDER, POND TENDER-C Family Provider Active Dr. Maddie MACIEL, DO [...] Status: Active Member Role Status Dates Becka Alvarez Donny POND TENDER, POND TENDER-C Family Provider Active NILS CANTOR Primary Care Provider Active Team Status: Active Member Role Status Dates Dr. Maddie MACIEL, DO Primary Care Provider Acti ve Dr. Hliario Malik MD Emergency Provider Active Dr. Carrie [...] Active Member Role Status Dates Becka Hines POND TENDER, POND TENDER-C Family Provider Active [facility] Doctor Primary Care Provider Active Team Status: Inactive Member Role Status Dates [facility] Doctor Primary Care Provider Active [facility] Attending Provider Acti ve Team Status: Inactive Member Role Status Dates [facility] Doctor Primary Care Provider Active Dr. Avani MACIEL MD Attending Provider Active Team Status: Active Member Role Status Dates [facility] Doctor Primary Care Provider Active Dr. Avani MACIEL MD Attending Provider Active Team Status: Inactive Member Role Status Dates [facility] Doctor Primary Care Provider Active Dr. Avani MACIEL MD Attending Provider, Referring Provider Active Team Status: Active Member Role Status Dates Becka Hines POND TENDER, POND TENDER-C Family Provider Active Dr. Avani Eduardo MD Primary Care Provider Active Team Status: Inactive Member Role Status Dates [facility] Doctor Primary Care Provider Active Start: September [...] Active Start: January 02, 2025 Dr. Avani MCAIEL MD Attending Provider Active Start: January 02, [...] BE BASED ON THE PRIMARY CLINICAL RECORDS. [facility]. provides no warranty or guarantee of the accuracy or completeness of information in this document.
== END ==
LOC: OLS.SW 05:00
PROVIDERS: PCP Internal Medicine; Visit Provider Internal Medicine
DX: E03.9 Hypothyroidism, unspecified (principal)
CPT/HCPCS: 36415; 84443

== ENCOUNTER → 2025-06-26 | Outpatient (REF) | payer MEDICARE, MEDICAID, SELFPAY ==
[2025-06-29 16:09] LABS: KEPPRA (LEVETIRACETAM) 36.6 ug/mL (10.0-40.0)
== END ==
LOC: OLS.SW 05:00
PROVIDERS: PCP Internal Medicine; Visit Provider Internal Medicine
DX: G40.909 Epilepsy, unspecified, not intractable, without status epilepticus (principal)
CPT/HCPCS: 36415; 80177

== ENCOUNTER → 2025-07-26 | Outpatient (REF) | payer MEDICARE, MEDICAID, SELFPAY ==
--- OUTSIDE RECORDS SUMMARY | 2025-07-26 04:52 | XMS RPT_ITS | CCD ---
Author Organization [facility] Care Team Providers Care Linux Server Administrator Name Role Phone MEG JOE Unavailable Unavailable MEG JOE Unavailable Unavailable IM[facility] Unavailable Unavailable Maddie Cantor Primary Care Provider [phone] Maddie Cantor Primary Care Provider NILS MARIE Attending Unavailable MADDIE CANTOR Primary Care Unavailable MADELIN FERGUSON Attending Unavailable MADDIE CANTOR Referring Unavailable MADDIE CANTOR Primary Care Unavailable MATEO BENTON Attending Unavailable MATEO BENTON Referring Unavailable MADDIE CANTOR Primary Care Unavailable Maddie Cantor Primary Care Provider Dr. Maddie Scott Primary Care Provider U Dr. Hilario Conrad Emergency Provider [phone] Dr. Carrie Hooper Admit Provider Dr. Carrie Hooper Attending Provider Dr. Carrie Hooper Other Provider [phone] Chino Cannon Attending Provider Unavailable Dr. Chino Cannon Other Provider Unavailable MADDIE CANTOR Primary Care Unavailable LORENE ORTIZ Attending Unavailable HILARIO MALIK Referring Unavailab KERON Christensen Admitting Unavailable MICHELINE HUBER Consulting Unavailable NILS CANTOR Primary Care Provider [phone] Dr. Kary Recio Admit Provider Dr. Kary Recio Other Provider Dr. Nina Wilder Attending Provider Wilder, Dr. Nina Other Provider Dr. Kary Recio Attending Provider STANTON ANDREWS Attending Unavailable STANTON ANDREWS Attending Unavailable STANTON ANDREWS Attending Unavailable STANTON ANDREWS Attending Unavailable [facility] Doctor, Out of Primary Care Provider Papa Eduardo MD, Dr. Varma Attending Provider Unavailelizabeth Eduardo MD, Dr. Varma Primary Care Provider UnaKourtney Rob Attending Provider Jayce MUNOZ, Dr. Varma Referring Provider Unavailelizabeth Eduardo MD, Dr. Varma Primary Care Provider Surjit Eduardo MD, Dr. Varma Attending Provider UnavailKourtney Antonio Referring Provider [phone] Eris Capps MD Attending Provider [phone] Jayce MUNOZ, Dr. Varma Primary Care Provider Surjit Eduardo MD, Dr. Varma Referring Provider UnavailKourtney Antonio Attending Provider [phone] Avani Eduardo MD Attending Provider Unavailelizabeth Eduardo MD, Dr. Varma Referring Provider Unavaila ble Gudla, Avani Primary Care Unavailable Kourtney Farrar Referring Unavailable Eris Capps Attending Unavailable Gudla, Avani Primary Care Unavailable Gudla Avani MACIEL Attending Unavailable [facility] Doctor, Out of Primary Care Unavailable Gudla Noemi MACIELyothi Attending Unavailable Gudla, Avani Primary Care Unavailable Gudla Neomi MACIELyothi Attending Unavailable Gudla, Avani Primary Care Unavailable Gudla Noemi MACIELyothi Attending Unavailable Gudla Noemi MACIELyothi Attending Unavailable Gudla, Avani Primary Care Unavailable Gudla, Avani Primary Care Unavailable Gudla Noemi MACIELyothi Attending Unavailable Gudla OLS Avani Referring Unavailable Gudla, Avani Primary Care Unavailable Kourtney Farrar Referring Unavailable Kourtney Farrar Attending Unavailable Gudla, Avani Primary Care Unavailable Gudla Avani MACIEL Attending Unavailable Gudla, Avani Primary Care Unavailable Gudla Noemi MACIELyothi Attending Unavailable Gudla, Avani Primary Care Unavailable Gudla, Avani Referring Unavailable Farrar, Kourtney Attending Unavailable Gudla, Avani Primary Care Unavailable Gudla OLS, Avani Attending Unavailable Gudla, Avani Primary Care Unavailable Gudla OLS, Avani Attending Unavailable Gudla, Avani Primary Care Unavailable Gudla OLS, Avani Attending Unavailable Gudla OLS, Avani Attending Unavailable Gudla, Avani Primary Care Unavailable Gudla OLS, Avani Referring Unavailable Gudla, Avani Primary Care Unavailable Gudla, Avani Referring Unavailable Farrar, Kourtney Attending Unavailable Gudla OLS, Avani Attending Unavailable Gudla, Avani Primary Care Unavailable Gudla OLS, Avani Attending Unavailable Gudla, Avani Primary Care Unavailable [facility] Doctor, Out of Primary Care Unavailable Gudla OLS, Avani Attending Unavailable Gudla, Avani Primary Care Unavailable Gudla OLS, Avani Attending Unavailable Gudla, Avani Primary Care Unavailable Gudla OLS, Avani Attending Unavailable Allergies Allergy Classification Reported Allergen(s) Allergy Type Date of Onset Reaction(s) Facility (20 sources) nickel; Translations: [NICKEL] Drug Allergy 3 Rash [facility] Repository (20 sources) OXcarbazepine; Translations: [[facility]PINE] [facility] salicylic acid; Translations: [SALICYLATES] Drug Allergy 5 [facility] Rep[facility] (20 sources) [facility] Aspirin Drug Allergy 5 [facility] Repository Medications Current Medications Medication Drug Class(es) [...] by mouth once daily at lunch Vitamins A,C,B-Skut-Mpcvlv (Eye Multivitamin) 2,148 mcg-113 mg-45 mg-17.4mg Tablet [...] (5 sources) Bismuth Start: 07-15-2020 Bismuth Subsalicylate ([place] Bismuth) 262 mg/15 mL suspension Active 524 [...] Start: 07-11-2019 take 2000 [IU] by mo [facility] at bedtime Cholecalciferol (Vitamin D3) Active 2000 [...] Dulaglutide (3 sources) GLP-1 Receptor Agonist Start: 5 Dulaglutide [...] on above: Take 2 tablets by mo [facility] twice daily. 2 TABLETS (1,500MG) BY MOUTH [...] by mouth once daily. polyethylene glycol 3350 [id number] mg powder for oral solution (5 sources) [...] 2023 5:12pm take 1 capsule by mo [facility] three times daily Pregabalin (LYRICA) 200 mg [...] tablet by heather three times daily. sennosides, custodial 8.6 mg oral capsule (5 sources) Start: [...] on above: Take 2 tablets by [facility] three times daily. Take 20 mL by mouth three times daily. 24 hr venlafaxine 150 mg extended release oral capsule (20 sources) Serotonin and Norepinephrine Reuptake Inhibitor Start: 07-11-20 End: 07-15-20 take 1 capsule by mouth once daily Venlafaxine 150 mg capsule,extended release 24hr Active 150 mg PO DAILY July 15, 2020 2:04pm DEPRESSION Comment on above: Take 1 capsule by [facility] once daily. Take Effexor XR 150 mg [...] on above: Take 400 Units by [facility] every other day. Once capsule by mouth [...] Comment on above: [facility]. furosemide 80 mg [...] 17, 2019 1:16pm omega-3 acid ethyl esters (custodial) 1000 mg oral capsule (16 sources) Start: 01-10-2023 End: 11-01-2024 [place] 8-Ibw-Oul-Fish Oil 1,0 00 mg (120 mg-180 mg) Capsule Discontinued 1 NMA PO TWICE A DAY January 10, 2023 12:00am November 01, 2024 11:35am Start: 01-10-2023 take 1 capsule by [facility] twice daily [place] 0-Fle-Hgv-Fish Oil Active 1 CAP PO TWICE A DAY January 10, 2023 12:00am [place]-3 Fatty Acids-Fish Oil (18 sources) Start: 07-11-2019 End: 07-15-2020 take 2 capsules by mouth twice daily [place]-3 Fatty Acids-Fish Oil Discontinued 2 CAP PO TWICE A DAY July 10, 2019 11:00pm July 15, 2020 1:09pm Start: 07-11-2019 End: 07-15-2020 take 2 capsules by mouth twice daily [place]-3 Fatty Acids-Fish Oil Discontinued 2 CAP PO TWICE A DAY July 11, 2019 12:00am July 15, 2020 2:09pm [place]-3 Fatty Acids-Fish Oil 1 EACH capsule (3 sources) Start: 07-11-2019 End: 07-15-2020 [place]-3 Fatty Acids-Fish Oil 1 EACH capsule Discontinued 2 NMA PO TWICE A DAY July 11, 2019 12:00am July 15, 2020 2:09pm SUPPLEMENT Start: 07-11-2019 End: 07-15-2020 [place]-3 Fatty Acids-Fish Oil 1 EACH capsule Discontinued 2 NMA PO TWICE A DAY July 11, 2019 12:00am July 15, 2020 2:09pm Murcx-9-YUF-EPA-Fish Oil (FISH OIL) 1,000 mg (120 mg-180 mg) cap (5 sources) take 1 capsule by mouth twice daily Zwbuq-6-ENC-EPA-Fish Oil (FISH OIL) 1,000 mg (120 mg-180 mg) cap Take one capsule by mouth twice daily. 0 Active Comment on above: Take one capsule by mouth twice daily. 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-2025 Chronic Mood disorders (20 sources) Depressive disorder; Translations: [Depression] Onset: 01-19-2014 03-22-2020 Chronic Noninfectious gastroenteritis (20 sources) Gastroenteritis; Translations: [Noninfective gastroenteritis and colitis, unspecified] 08-31-2019 Episodic Nutritional deficiencies (7 sources) Vitamin D deficiency; Translations: [Vitamin D deficiency, unspecified] Onset: 08-10-2014 03-22-2020 Chronic Other aftercare (2 sources) Other terminal carman (current) drug therapy; Translations: [Other fci (current) drug therapy] Onset: 05-25-2025 Episodic Other and unspecified benign neoplasm (1 [...] Interpretation Reference Range Facility KEPPRA (LEVETIRACETAM)on KEPPRA 36.6 ug/mL Normal 10.0-40.0 [facility] Comment on above: Order Comment: 304-2 Result Comment: Perf ormed at: BN - [facility] [address] [id number] Tray Worker: Jess Bess MD, Phone: [phone] Performed By: #### L [id number] #### [facility] [address] [place], [address] Thyroid Stim Hormone (TSH)on 06-12-2025 TSH 4.840 uIU/mL High 0.300-4.20 0 [facility] Comment on above: Order Comment: 304-2 Performed By: #### L [id number], L500.2500, [id number] #### [facility] [address] [place], [address] KEPPRA (LEVETIRACETAM)on KEPPRA 46.4 ug/mL Abnormal 10.0-40.0 [facility] Comment on above: Order Comment: 304-2 Result Comment: Perf ormed at: [facility] [id number] Tray Worker: Jess Bess MD, Phone: [phone] Performed By: #### L [id number], L500.2500, [id number] #### [facility] [address] [place], [address] KEPPRA (LEVETIRACETAM)on KEPPRA 51.2 ug/mL Abnormal 10.0-40.0 [facility] Comment on above: Order Comment: 304-2 Result Comment: Perf ormed at: [address] [id number] Tray Worker: Jess Bess MD, Phone: [phone] Performed By: #### L 255.5370 #### [facility] [address] [place], [address] Hemoglobin A1con 05-29-2025 HbA1c (Bld) [Mass fraction] 7.8 % High <=5.6 [facility] Comment on above: Order Comment: 304.2 Result Comment: Norm al < 5.7 % Prediabetic 5.7 - 6.4 % Diabetic >or= 6.5 % Please note range changes. Performed By: #### L [id number], L501.9089, [id number] #### [facility] [address] [place], [address] Thyroid Stim Hormone (TSH)on 05-29-2025 TSH 6.000 uIU/mL High 0.300-4.20 0 [facility] Comment on above: Order Comment: 304.2 Performed By: #### L [id number], [id number], [id number] #### [facility] [address] [place], [address] Anion gap in Serum or Plasma Ordered By: Avani Eduardo on 05-08-2025 Anion gap [Moles/Vol] 13 mmol/L 5-15 [facility] Automated blood erythrocyte countOrdered By: Avani Eduardo on 05-08-2025 RBC (Bld) [#/Vol] 4.10 10*6/uL Low 4.6-6.2 [facility] Comment on above: Order Comment: 304-2 Performed By: #### L [id number] #### [facility] [address] [place], [address] Automated blood hematocrit ( percentage)Ordered By: Avani Eduardo on 05-08-2025 Hematocrit (Bld) [Volume fraction] 39.1 % Low 40-54 [facility] Comment on above: Order Comment: 304-2 Performed By: #### L [id number] #### [facility] [address] [place], [address] BUN/creatinine ratioOrdered By: Avani Eduardo on 05-08-2025 Urea nitrogen/Creatinine [Mass ratio] 16.3 mg/mg 07-23 [facility] Basic Metabolic Profile (BMP )on 05-08-2025 BUN/CRE 16.3 RATIO Normal 07-23 [facility] Comment on above: Order Comment: 304.2 Performed By: #### L [id number] #### [facility] [address] [place], [address] Calcium [Mass/Vol] 9.0 mg/dL Normal 7.6-11.0 [facility] Comment on above: Order Comment: 304.2 Performed By: #### L [id number] #### [facility] [address] [place], [address] Chloride [Moles/Vol] 100 mmol/L Normal 98-108 [facility] Comment on above: Order Comment: 304.2 Performed By: #### L [id number] #### [facility] [address] [place], [address] CO2 [Moles/Vol] 26.3 mmol/L Normal 21.0-32.0 [facility] Comment on above: Order Comment: 304.2 Performed By: #### L [id number] #### [facility] [address] [place], [address] Creatinine [Mass/Vol] 0.57 mg/dL Low 0.70-1.20 [facility] Comment on above: Order Comment: 304.2 Performed By: #### L [id number] #### [facility] [address] [place], [address] GAP 13 Normal 5-15 [facility] Comment on above: Order Comment: 304.2 Performed By: #### L [id number] #### [facility] [address] [place], [address] GFR/1.73 sq M.predicted among non-blacks MDRD (S/P/Bld) [Vol rate/Area] 102 mL/min/{1.73_m2} Normal >60 [facility] Comment on above: Order Comment: 304.2 Result Comment: mL/m in/1.73m2 CKD-EPI Creatinine Equation (2020) Performed By: #### L [id number] #### [facility] [address] [place], [address] Glucose [Mass/Vol] 140 mg/dL High 70-99 [facility] Comment on above: Order Comment: 304.2 Performed By: #### L [id number] #### [facility] [address] [place], [address] Potassium [Moles/Vol] 3.5 mmol/L Normal 3.3-5.1 [facility] Comment on above: Order Comment: 304.2 Performed By: #### L [id number] #### [facility] [address] [place], [address] Sodium [Moles/Vol] 139 mmol/L Normal 133-145 [facility] Comment on above: Order Comment: 304.2 Performed By: #### L [id number] #### [facility] [address] [place], [address] Urea nitrogen [Mass/Vol] 9 mg/dL Normal 4-19 [facility] Comment on above: Order Comment: 304.2 Performed By: #### L [id number] #### [facility] [address] [place], [address] CBC-Complete Blood Cnt No Di ffon 05-08-2025 RDW SD 47.3 fl High 35.1-43.9 [facility] Comment on above: Order Comment: 304-2 Performed By: #### L [id number] #### [facility] [address] [place], [address] Carbon dioxide, total [Moles /volume] in Central venous bloodOrdered By: Avani Eduardo on 05-08-2025 CO2 [Moles/Vol] 26.3 mmol/L 21.0-32.0 [facility] Chloride assayOrdered By: Adriel Eduardo on 05-08-2025 Chloride [Moles/Vol] 100 mmol/L 98-108 [facility] Erythrocyte distribution wid th ratioOrdered By: Avani Eduardo on 05-08-2025 Erythrocyte distribution width (RBC) [Ratio] 13.4 % Normal 11.6-14.6 [facility] Comment on above: Order Comment: 304-2 Performed By: #### L [id number] #### [facility] [address] [place], [place], [id number] Erythrocyte distribution wid th standard deviationOrdered By: Avani Eduardo on 05-08-2025 Erythrocyte distribution width (RBC) [Ratio] 47.3 fl High 35.1-43.9 [facility] Glomerular filtration rate ( GFR) estimation/1.73 sq m using serum, plasma, or whole bOrdered By: Avani Eduardo on 05-08-2025 GFR/1.73 sq M.predicted among non-blacks MDRD (S/P/Bld) [Vol rate/Area] 102 mL/min/{1.73_m2} >60 [facility] Comment on above: mL/min/1.73m2 CKD-EP I Creatinine Equation (2020) Hemoglobin measurementOrdere d By: Avani Eduardo on 05-08-2025 Hemoglobin (Bld) [Mass/Vol] 13.3 g/dL Normal 13.0-16.5 [facility] Comment on above: Order Comment: 304-2 Performed By: #### L [id number] #### [facility] [address] [place], [address] MCV (mean corpuscular volume ) determinationOrdered By: Avani Eduardo on 05-08-2025 MCV (RBC) [Entitic vol] 95.4 fL High 80-94 [facility] Comment on above: Order Comment: 304-2 Performed By: #### L [id number] #### [facility] [address] [place], [address] Magnesiumon 05-08-2025 Magnesium [Mass/Vol] 2.1 mg/dL Normal 1.5-2.2 [facility] Comment on above: Order Comment: 304.2 Performed By: #### L [id number] #### [facility] [address] [place], [place], [id number] Magnesium measurement (mass/ volume)Ordered By: Avani Eduardo on 05-08-2025 Magnesium (Unsp spec) [Mass/Vol] 2.1 mg/dL 1.5-2.2 [facility] Mean corpuscular hemoglobin (MCH) determinationOrdered By: Avani Eduardo on 05-08-2025 MCH (RBC) [Entitic mass] 32.4 pg High 27.0-32.0 [facility] Comment on above: Order Comment: 304-2 Performed By: #### L [id number] #### [facility] [address] [place], [place], [id number] Mean corpuscular hemoglobin concentration (MCHC) determinationOrdered By: Avani Eduardo on 05-08-2025 MCHC (RBC) [Mass/Vol] 34.0 g/dL Normal 32-36 [facility] Comment on above: Order Comment: 304-2 Performed By: #### L [id number] #### [facility] [address] [place], [address] Mean platelet volume determi nationOrdered By: Avani Eduardo on 05-08-2025 Platelet mean volume (Bld) [Entitic vol] 9.3 fL Normal 6.2-12.0 [facility] Comment on above: Order Comment: 304-2 Performed By: #### L [id number] #### [facility] [address] [place], [address] Platelet countOrdered By: Adriel Eduardo on 05-08-2025 Platelets (Bld) [#/Vol] 197 10*3/uL Normal 150-450 [facility] Comment on above: Order Comment: 304-2 Performed By: #### L [id number] #### [facility] [address] [place], [address] Potassium measurement (mass/ volume)Ordered By: Avani Eduardo on 05-08-2025 Potassium (Unsp spec) [Mass/Vol] 3.5 mmol/L 3.3-5.1 [facility] Serum creatinine measurement (mass/volume)Ordered By: Avani Eduardo on 05-08-2025 Creatinine [Mass/Vol] 0.57 mg/dL Low 0.70-1.20 [facility] Serum glucose measurement (m ass/volume)Ordered By: Avani Eduardo on 05-08-2025 Glucose [Mass/Vol] 140 mg/dL High 70-99 [facility] Serum or plasma calcium minda urement (mass/volume)Ordered By: Avani Eduardo on 05-08-2025 Calcium [Mass/Vol] 9.0 mg/dL 7.6-11.0 [facility] Serum or plasma urea nitroge n measurement (mass/volume)Ordered By: Avani Eduardo on 05-08-2025 Urea nitrogen [Mass/Vol] 9 mg/dL 4-19 [facility] Sodium levelOrdered By: Emmanuel Eduardo on 05-08-2025 Sodium [Moles/Vol] 139 mmol/L 133-145 [facility] White blood cell (WBC) count Ordered By: Avani Eduardo on 05-08-2025 WBC (Bld) [#/Vol] 6.9 10*3/uL Normal 4.4-11.0 [facility] Comment on above: Order Comment: 304-2 Performed By: #### L [id number] #### [facility] [address] [place], [address] TSH DL <= 0.005 mIU/L QnOrde red By: Avani Eduardo on 05-01-2025 TSH Qn 5.000 uIU/mL High 0.300-4.20 0 [facility] Thyroid Stim Hormone (TSH)on 05-01-2025 TSH 5.000 uIU/mL High 0.300-4.20 0 [facility] Comment on above: Performed By: #### L [id number] #### [facility] [address] [place], [address] Anion gap in Serum or Plasma Ordered By: Avani Eduardo on 04-24-2025 Anion gap [Moles/Vol] 12 mmol/L - [facility] BUN/creatinine ratioOrdered By: Avani Eduardo on 04-24-2025 Urea nitrogen/Creatinine [Mass ratio] 20.2 mg/mg High 07-23 [facility] Basic Metabolic Profile (BMP )on 04-24-2025 BUN/CRE 20.2 RATIO High 07-23 [facility] Comment on above: Order Comment: 304-2 Performed By: #### L [id number] #### [facility] [address] [place], [address] Calcium [Mass/Vol] 9.1 mg/dL Normal 7.6-11.0 [facility] Comment on above: Order Comment: 304-2 Performed By: #### L [id number] #### [facility] [address] [place], [address] Chloride [Moles/Vol] 96 mmol/L Low 98-108 [facility] Comment on above: Order Comment: 304-2 Performed By: #### L [id number] #### [facility] [address] [place], [address] CO2 [Moles/Vol] 29.3 mmol/L Normal 21.0-32.0 [facility] Comment on above: Order Comment: 304-2 Performed By: #### L [id number] #### [facility] [address] [place], [address] Creatinine [Mass/Vol] 0.76 mg/dL Normal 0.70-1.20 [facility] Comment on above: Order Comment: 304-2 Performed By: #### L [id number] #### [facility] [address] [place], [address] GAP 12 Normal - [facility] Comment on above: Order Comment: 304-2 Performed By: #### L [id number] #### [facility] [address] [place], [address] GFR/1.73 sq M.predicted among non-blacks MDRD (S/P/Bld) [Vol rate/Area] 94 mL/min/{1.73_m2} Normal >60 [facility] Comment on above: Order Comment: 304-2 Result Comment: mL/m in/1.73m2 CKD-EPI Creatinine Equation (2020) Performed By: #### L [id number] #### [facility] [address] [place], [address] Glucose [Mass/Vol] 147 mg/dL High 70-99 [facility] Comment on above: Order Comment: 304-2 Performed By: #### L [id number] #### [facility] [address] [place], [address] Potassium [Moles/Vol] 3.8 mmol/L Normal 3.3-5.1 [facility] Comment on above: Order Comment: 304-2 Performed By: #### L [id number] #### [facility] [address] [place], [address] Sodium [Moles/Vol] 138 mmol/L Normal 133-145 [facility] Comment on above: Order Comment: 304-2 Performed By: #### L [id number] #### [facility] [address] [place], [address] Urea nitrogen [Mass/Vol] 15 mg/dL Normal 4-19 [facility] Comment on above: Order Comment: 304-2 Performed By: #### L [id number] #### [facility] [address] [place], [address] Carbon dioxide, total [Moles /volume] in Central venous bloodOrdered By: Avani Eduardo on 04-24-2025 CO2 [Moles/Vol] 29.3 mmol/L 21.0-32.0 [facility] Chloride assayOrdered By: Adriel Eduardo on 04-24-2025 Chloride [Moles/Vol] 96 mmol/L Low 98-108 [facility] Glomerular filtration rate ( GFR) estimation/1.73 sq m using serum, plasma, or whole bOrdered By: Avani Eduardo on 04-24-2025 GFR/1.73 sq M.predicted among non-blacks MDRD (S/P/Bld) [Vol rate/Area] 94 mL/min/{1.73_m2} >60 [facility] Comment on above: mL/min/1.73m2 CKD-EP I Creatinine Equation (2020) Magnesiumon 04-24-2025 Magnesium [Mass/Vol] 2.3 mg/dL High 1.5-2.2 [facility] Comment on above: Order Comment: 304-2 Performed By: #### L [id number] #### [facility] [address] [place] [address], [id number] Magnesium measurement (mass/ volume)Ordered By: Avani Eduardo on 04-24-2025 Magnesium (Unsp spec) [Mass/Vol] 2.3 mg/dL High 1.5-2.2 [facility] Potassium measurement (mass/ volume)Ordered By: Avani Eduardo on 04-24-2025 Potassium (Unsp spec) [Mass/Vol] 3.8 mmol/L 3.3-5.1 [facility] Serum creatinine measurement (mass/volume)Ordered By: Avani Eduardo on 04-24-2025 Creatinine [Mass/Vol] 0.76 mg/dL 0.70-1.20 [facility] Serum glucose measurement (m ass/volume)Ordered By: Avani Eduardo on 04-24-2025 Glucose [Mass/Vol] 147 mg/dL High 70-99 [facility] Serum or plasma calcium minda urement (mass/volume)Ordered By: Avani Eduardo on 04-24-2025 Calcium [Mass/Vol] 9.1 mg/dL 7.6-11.0 [facility] Serum or plasma urea nitroge n measurement (mass/volume)Ordered By: Avani Eduardo on 04-24-2025 Urea nitrogen [Mass/Vol] 15 mg/dL 4- [facility] Sodium levelOrdered By: Emmanuel Eduardo on 04-24-2025 Sodium [Moles/Vol] 138 mmol/L 133-145 [facility] Anion gap in Serum or Plasma Ordered By: Avani Eduardo on 04-03-2025 Anion gap [Moles/Vol] 17 mmol/L High 5- [facility] BUN/creatinine ratioOrdered By: Avani Eduardo on 04-03-2025 Urea nitrogen/Creatinine [Mass ratio] 14.2 mg/mg 07-23 [facility] Basic Metabolic Profile (BMP )on 04-03-2025 BUN/CRE 14.2 RATIO Normal 07-23 [facility] Comment on above: Order Comment: 304.2 Performed By: #### L [id number] #### [facility] [address] [place], [address] Calcium [Mass/Vol] 9.8 mg/dL Normal 7.6-11.0 [facility] Comment on above: Order Comment: 304.2 Performed By: #### L [id number] #### [facility] [address] [place], [address] Chloride [Moles/Vol] 96 mmol/L Low 98-108 [facility] Comment on above: Order Comment: 304.2 Performed By: #### L [id number] #### [facility] [address] [place], [address] CO2 [Moles/Vol] 24.9 mmol/L Normal 21.0-32.0 [facility] Comment on above: Order Comment: 304.2 Performed By: #### [id number] #### [facility] [address] [place], [address] Creatinine [Mass/Vol] 0.84 mg/dL Normal 0.70-1.20 [facility] Comment on above: Order Comment: 304.2 Performed By: #### L [id number] #### [facility] [address] [place], [address] GAP 17 High 5-15 [facility] Comment on above: Order Comment: 304.2 Performed By: #### L [id number] #### [facility] [address] [place], [address] GFR/1.73 sq M.predicted among non-blacks MDRD (S/P/Bld) [Vol rate/Area] 91 mL/min/{1.73_m2} Normal >60 [facility] Comment on above: Order Comment: 304.2 Result Comment: mL/m in/1.73m2 CKD-EPI Creatinine Equation (2020) Performed By: #### L [id number] #### [facility] [address] [place], [address] Glucose [Mass/Vol] 229 mg/dL High 70-99 [facility] Comment on above: Order Comment: 304.2 Performed By: #### L [id number] #### [facility] [address] [place], [address] Potassium [Moles/Vol] 4.2 mmol/L Normal 3.3-5.1 [facility] Comment on above: Order Comment: 304.2 Result Comment: Hemo lysis present, Results??could be affected. ?? Performed By: #### L [id number] #### [facility] [address] [place], [address] Sodium [Moles/Vol] 137 mmol/L Normal 133-145 [facility] Comment on above: Order Comment: 304.2 Performed By: #### L [id number] #### [facility] [address] [place], [address] Urea nitrogen [Mass/Vol] 12 mg/dL Normal 4-19 [facility] Comment on above: Order Comment: 304.2 Performed By: #### L [id number] #### [facility] [address] [place], [address] CBC-Complete Blood Cnt No Di ffon 04-03-2025 Erythrocyte distribution width (RBC) [Ratio] 13.8 % Normal 11.6-14.6 [facility] Comment on above: Order Comment: 304.2 Performed By: #### L [id number] #### [facility] [address] [place], [address] Hematocrit (Bld) [Volume fraction] 44.7 % Normal 40-54 [facility] Comment on above: Order Comment: 304.2 Performed By: #### L [id number] #### [facility] [address] [place], [address] Hemoglobin (Bld) [Mass/Vol] 15.1 g/dL Normal 13.0-16.5 [facility] Comment on above: Order Comment: 304.2 Performed By: #### L [id number] #### [facility] [address] [place], [address] MCH (RBC) [Entitic mass] 32.4 pg High 27.0-32.0 [facility] Comment on above: Order Comment: 304.2 Performed By: #### L [id number] #### [facility] [address] [place], [address] MCHC (RBC) [Mass/Vol] 33.8 g/dL Normal 32-36 [facility] Comment on above: Order Comment: 304.2 Performed By: #### L [id number] #### [facility] [address] [place], [address] MCV (RBC) [Entitic vol] 95.9 fL High 80-94 [facility] Comment on above: Order Comment: 304.2 Performed By: #### L [id number] #### [facility] [address] [place], [address] Platelet mean volume (Bld) [Entitic vol] 9.5 fL Normal 6.2-12.0 [facility] Comment on above: Order Comment: 304.2 Performed By: #### L [id number] #### [facility] [address] [place], [address] Platelets (Bld) [#/Vol] 252 10*3/uL Normal 150-450 [facility] Comment on above: Order Comment: 304.2 Performed By: #### L [id number] #### [facility] [address] [place], [address] RBC (Bld) [#/Vol] 4.66 10*6/uL Normal 4.6-6.2 [facility] Comment on above: Order Comment: 304.2 Performed By: #### L [id number] #### [facility] [address] [place], [address] RDW SD 49.1 fl High 35.1-43.9 [facility] Comment on above: Order Comment: 304.2 Performed By: #### L [id number] #### [facility] [address] [place], [address] WBC (Bld) [#/Vol] 7.2 10*3/uL Normal 4.4-11.0 [facility] Comment on above: Order Comment: 304.2 Performed By: #### L [id number] #### [facility] [address] [place], [address] Carbon dioxide, total [Moles /volume] in Central venous bloodOrdered By: Avani Eduardo on 04-03-2025 CO2 [Moles/Vol] 24.9 mmol/L 21.0-32.0 [facility] Chloride assayOrdered By: Adriel Eduardo on 07-01-2025 Chloride [Moles/Vol] 96 mmol/L Low 98-108 [facility] Erythrocyte distribution wid th ratioOrdered By: Avani Eduardo on 04-03-2025 Erythrocyte distribution width (RBC) [Ratio] 13.8 % 11.6-14.6 [facility] Erythrocyte distribution wid th standard deviationOrdered By: Avani Eduardo on 04-03-2025 Erythrocyte distribution width (RBC) [Ratio] 49.1 fl High 35.1-43.9 [facility] Glomerular filtration rate ( GFR) estimation/1.73 sq m using serum, plasma, or whole bOrdered By: Avanigómez Eduardo on 04-03-2025 GFR/1.73 sq M.predicted among non-blacks MDRD (S/P/Bld) [Vol rate/Area] 91 mL/min/{1.73_m2} >60 [facility] Comment on above: mL/min/1.73m2 CKD-EP I Creatinine Equation (2020) Hematocrit Auto (Bld) [Volum e fraction]Ordered By: Avani Eduardo on 04-03-2025 Hematocrit (Bld) [Volume fraction] 44.7 % 40-54 [facility] Hemoglobin measurementOrdere d By: Avani Eduardo on 04-03-2025 Hemoglobin (Bld) [Mass/Vol] 15.1 g/dL 13.0-16.5 [facility] MCV (mean corpuscular volume ) determinationOrdered By: Avani Eduardo on 04-03-2025 MCV (RBC) [Entitic vol] 95.9 fL High 80-94 [facility] Magnesiumon 04-03-2025 Magnesium [Mass/Vol] 2.3 mg/dL High 1.5-2.2 [facility] Comment on above: Order Comment: 304.2 Performed By: #### L [id number] #### [facility] [address] [place], [place], [address] Magnesium measurement (mass/ volume)Ordered By: Avani Eduardo on 04-03-2025 Magnesium (Unsp spec) [Mass/Vol] 2.3 mg/dL High 1.5-2.2 [facility] Mean corpuscular hemoglobin (MCH) determinationOrdered By: Avani Eduardo on 04-03-2025 MCH (RBC) [Entitic mass] 32.4 pg High 27.0-32.0 [facility] Mean corpuscular hemoglobin concentration (MCHC) determinationOrdered By: Avani Eduardo on 04-03-2025 MCHC (RBC) [Mass/Vol] 33.8 g/dL 32-36 [facility] Mean platelet volume determi nationOrdered By: Avani Eduardo on 04-03-2025 Platelet mean volume (Bld) [Entitic vol] 9.5 fL 6.2-12.0 [facility] Platelet countOrdered By: Adriel Eduardo on 04-03-2025 Platelets (Bld) [#/Vol] 252 10*3/uL 150-450 [facility] Potassium measurement (mass/ volume)Ordered By: Avani Eduardo on 04-03-2025 Potassium (Unsp spec) [Mass/Vol] 4.2 mmol/L 3.3-5.1 [facility] Comment on above: Hemolysis present, R esults could be affected. RBC Auto (Bld) [#/Vol]Ordere d By: Avani Eduardo on 04-03-2025 RBC (Bld) [#/Vol] 4.66 10*6/uL 4.6-6.2 [facility] Serum creatinine measurement (mass/volume)Ordered By: Avani Eduardo on 04-03-2025 Creatinine [Mass/Vol] 0.84 mg/dL 0.70-1.20 [facility] Serum glucose measurement (m ass/volume)Ordered By: Avani Eduardo on 04-03-2025 Glucose [Mass/Vol] 229 mg/dL High 70-99 [facility] Serum or plasma calcium minda urement (mass/volume)Ordered By: Avani Eduardo on 04-03-2025 Calcium [Mass/Vol] 9.8 mg/dL 7.6-11.0 [facility] Serum or plasma urea nitroge n measurement (mass/volume)Ordered By: Avani Eduardo on 04-03-2025 Urea nitrogen [Mass/Vol] 12 mg/dL 4-19 [facility] Sodium levelOrdered By: Emmanuel Eduardo on 04-03-2025 Sodium [Moles/Vol] 137 mmol/L 133-145 [facility] White blood cell (WBC) count Ordered By: Avani Eduardo on 04-03-2025 WBC (Bld) [#/Vol] 7.2 10*3/uL 4.4-11.0 [facility] TSH DL <= 0.005 mIU/L QnOrde red By: Avani Eduardo on 02-28-2025 TSH Qn 4.330 uIU/mL High 0.300-4.20 0 [facility] Thyroid Stim Hormone (TSH)on 02-28-2025 TSH 4.330 uIU/mL High 0.300-4.20 0 [facility] Comment on above: Order Comment: 304-2 Performed By: #### L [id number] #### [facility] [address] [place], [address] Arterial study reportOrdered By: Eris Capps on 02-13-2025 Noninvasive arteriosclerosis study report [facility] [address] [place] [address] Lower Ext Art Exam w/o Exercis 02/13/25 0911 MR#: [id number] Acct: [id number] Name: ANJEL ROSS Rep #:[id number] : 1950 74 From: Eris Zepeda Attending Dr: PIO House Stat us: REG CLI Ordering Dr: Kourtney Farrar Date: Location: [facility] Sex: M C Admitted: Reason For Study [...] ~ Date Dictated: 02/13/25910 Date Transcribed: 02/13/251056 [employer] Operator: Signed [facility] Work Phone: Lower Ext Art Exam w/o Exerc jerry 02-13-2025 Lower Ext Art Exam w/o Exercis [facility] [address] 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 Left SAHLEY 1.0, normal. Doppler/PVR waveforms of the left leg normal at rest. 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 Ordering Physician: Kourtney Farrar Referring Physician: Avani Eduardo Performed By: Micheline Busby T 02/13/251056 Date Eris Capps MD CC: [facility]; Avani Eduardo MD Date Dictated: 02/13/25910 Date Transcribed: 02/13/251056 [employer] Operator: Signed Normal [facility] Anion gap in Serum or Plasma Ordered By: Avani Eduardo on 02-01-2025 Anion gap [Moles/Vol] 13 mmol/L 5-15 [facility] BUN/creatinine ratioOrdered By: Avani Eduardo on 02-01-2025 Urea nitrogen/Creatinine [Mass ratio] 16.2 mg/mg 10- [facility] Basic Metabolic Profile (BMP )on 02-01-2025 BUN/CRE 16.2 RATIO Normal - [facility] Comment on above: Order Comment: 304-2 Performed By: #### L [id number] #### [facility] [address] [place], [address] Calcium [Mass/Vol] 8.4 mg/dL Normal 7.6-11.0 [facility] Comment on above: Order Comment: 304-2 Performed By: #### L [id number] #### [facility] [address] [place], [address] Chloride [Moles/Vol] 98 mmol/L Normal 98-108 [facility] Comment on above: Order Comment: 304-2 Performed By: #### L [id number] #### [facility] [address] [place], [address] CO2 [Moles/Vol] 25.5 mmol/L Normal 21.0-32.0 [facility] Comment on above: Order Comment: 304-2 Performed By: #### L [id number] #### [facility] [address] [place], [address] Creatinine [Mass/Vol] 0.64 mg/dL Low 0.70-1.20 [facility] Comment on above: Order Comment: 304-2 Performed By: #### L [id number] #### [facility] [address] [place], [address] GAP 13 Normal 5-15 [facility] Comment on above: Order Comment: 304-2 Performed By: #### L [id number] #### [facility] [address] [place], [address] GFR/1.73 sq M.predicted among non-blacks MDRD (S/P/Bld) [Vol rate/Area] 99 mL/min/{1.73_m2} Normal >60 [facility] Comment on above: Order Comment: 304-2 Result Comment: mL/m in/1.73m2 CKD-EPI Creatinine Equation (2020) Performed By: #### L [id number] #### [facility] [address] [place], [address] Glucose [Mass/Vol] 203 mg/dL High 70-99 [facility] Comment on above: Order Comment: 304-2 Performed By: #### L [id number] #### [facility] [address] [place], [address] Potassium [Moles/Vol] 3.5 mmol/L Normal 3.3-5.1 [facility] Comment on above: Order Comment: 304-2 Performed By: #### L [id number] #### [facility] [address] [place], [address] Sodium [Moles/Vol] 136 mmol/L Normal 133-145 [facility] Comment on above: Order Comment: 304-2 Performed By: #### L [id number] #### [facility] [address] [place], [address] Urea nitrogen [Mass/Vol] 10 mg/dL Normal 4-19 [facility] Comment on above: Order Comment: 304-2 Performed By: #### L [id number] #### [facility] [address] [place], [address] CBC-Complete Blood Cnt No Di ffon 02-01-2025 Erythrocyte distribution width (RBC) [Ratio] 13.2 % Normal 11.6-14.6 [facility] Comment on above: Order Comment: 304-2 Performed By: #### L [id number] #### [facility] [address] [place], [address] Hematocrit (Bld) [Volume fraction] 36.0 % Low 40-54 [facility] Comment on above: Order Comment: 304-2 Performed By: #### L [id number] #### [facility] [address] [place], [address] Hemoglobin (Bld) [Mass/Vol] 12.7 g/dL Low 13.0-16.5 [facility] Comment on above: Order Comment: 304-2 Performed By: #### L [id number] #### [facility] [address] [place], [address] MCH (RBC) [Entitic mass] 32.6 pg High 27.0-32.0 [facility] Comment on above: Order Comment: 304-2 Performed By: #### L [id number] #### [facility] [address] [place], [address] MCHC (RBC) [Mass/Vol] 35.3 g/dL Normal 32-36 [facility] Comment on above: Order Comment: 304-2 Performed By: #### L [id number] #### [facility] [address] [place], [address] MCV (RBC) [Entitic vol] 92.3 fL Normal 80-94 [facility] Comment on above: Order Comment: 304-2 Performed By: #### L [id number] #### [facility] [address] [place], [address] Platelet mean volume (Bld) [Entitic vol] 8.9 fL Normal 6.2-12.0 [facility] Comment on above: Order Comment: 304-2 Performed By: #### L [id number] #### [facility] [address] [place], [address] Platelets (Bld) [#/Vol] 158 10*3/uL Normal 150-450 [facility] Comment on above: Order Comment: 304-2 Performed By: #### L [id number] #### [facility] [address] [place], [address] RBC (Bld) [#/Vol] 3.90 10*6/uL Low 4.6-6.2 [facility] Comment on above: Order Comment: 304-2 Performed By: #### L [id number] #### [facility] [address] [place], [address] RDW SD 44.3 fl High 35.1-43.9 [facility] Comment on above: Order Comment: 304-2 Performed By: #### L [id number] #### [facility] [address] [place], [address] WBC (Bld) [#/Vol] 6.1 10*3/uL Normal 4.4-11.0 [facility] Comment on above: Order Comment: 304-2 Performed By: #### L [id number] #### [facility] [address] [place], [address] Carbon dioxide, total [Moles /volume] in Central venous bloodOrdered By: Avani Eduardo on 02-01-2025 CO2 [Moles/Vol] 25.5 mmol/L 21.0-32.0 [facility] Chloride assayOrdered By: Adriel Eduardo on 02-01-2025 Chloride [Moles/Vol] 98 mmol/L 98-108 [facility] Erythrocyte distribution wid th ratioOrdered By: Avani Eduardo on 02-01-2025 Erythrocyte distribution width (RBC) [Ratio] 13.2 % 11.6-14.6 [facility] Erythrocyte distribution wid th standard deviationOrdered By: Avani Eduardo on 02-01-2025 Erythrocyte distribution width (RBC) [Ratio] 44.3 fl High 35.1-43.9 [facility] Glomerular filtration rate ( GFR) estimation/1.73 sq m using serum, plasma, or whole bOrdered By: Avani Eduardo on 02-01-2025 GFR/1.73 sq M.predicted among non-blacks MDRD (S/P/Bld) [Vol rate/Area] 99 mL/min/{1.73_m2} >60 [facility] Comment on above: mL/min/1.73m2 CKD-EP I Creatinine Equation (2020) Hematocrit Auto (Bld) [Volum e fraction]Ordered By: Avani Eduardo on 02-01-2025 Hematocrit (Bld) [Volume fraction] 36.0 % Low 40-54 [facility] Hemoglobin measurementOrdere d By: Avani Eduardo on 02-01-2025 Hemoglobin (Bld) [Mass/Vol] 12.7 g/dL Low 13.0-16.5 [facility] MCV (mean corpuscular volume ) determinationOrdered By: Avani Eduardo on 02-01-2025 MCV (RBC) [Entitic vol] 92.3 fL 80-94 [facility] Magnesiumon 02-01-2025 Magnesium [Mass/Vol] 2.2 mg/dL Normal 1.5-2.2 [facility] Comment on above: Order Comment: 304-2 Performed By: Nya### L [id number] #### [facility] [place], [address] Magnesium measurement (mass/ volume)Ordered By: Avani Eduardo on 02-01-2025 Magnesium (Unsp spec) [Mass/Vol] 2.2 mg/dL 1.5-2.2 [facility] Mean corpuscular hemoglobin (MCH) determinationOrdered By: Avani Eduardo on 02-01-2025 MCH (RBC) [Entitic mass] 32.6 pg High 27.0-32.0 [facility] Mean corpuscular hemoglobin concentration (MCHC) determinationOrdered By: Avani Eduardo on 02-01-2025 MCHC (RBC) [Mass/Vol] 35.3 g/dL 32-36 [facility] Mean platelet volume determi nationOrdered By: Avani Eduardo on 02-01-2025 Platelet mean volume (Bld) [Entitic vol] 8.9 fL 6.2-12.0 [facility] Platelet countOrdered By: Adriel Eduardo on 02-01-2025 Platelets (Bld) [#/Vol] 158 10*3/uL 150-450 [facility] Potassium measurement (mass/ volume)Ordered By: Avani Eduardo on 02-01-2025 Potassium (Unsp spec) [Mass/Vol] 3.5 mmol/L 3.3-5.1 [facility] RBC Auto (Bld) [#/Vol]Ordere d By: Avani Eduardo on 02-01-2025 RBC (Bld) [#/Vol] 3.90 10*6/uL Low 4.6-6.2 [facility] Serum creatinine measurement (mass/volume)Ordered By: Avani Eduardo on 02-01-2025 Creatinine [Mass/Vol] 0.64 mg/dL Low 0.70-1.20 [facility] Serum glucose measurement (m ass/volume)Ordered By: Avani Eduardo on 02-01-2025 Glucose [Mass/Vol] 203 mg/dL High 70-99 [facility] Serum or plasma calcium minda urement (mass/volume)Ordered By: Avani Eduardo on 02-01-2025 Calcium [Mass/Vol] 8.4 mg/dL 7.6-11.0 [facility] Serum or plasma urea nitroge n measurement (mass/volume)Ordered By: Avani Eduardo on 02-01-2025 Urea nitrogen [Mass/Vol] 10 mg/dL 4-19 [facility] Sodium levelOrdered By: Emmanuel Eduardo on 02-01-2025 Sodium [Moles/Vol] 136 mmol/L 133-145 [facility] White blood cell (WBC) count Ordered By: Avanigómez Eduardo on 02-01-2025 WBC (Bld) [#/Vol] 6.1 10*3/uL 4.4-11.0 [facility] MR/BMS.BVSon 01-31-2025 MR/BMS.PAULAS [facility] [address] [place] [address] OFFICE VISIT Date of Service: 01/31/25 MR#: [id number] Acct: [id number] Name: ANJEL ROSS Rep #: [id number] : 1950 Provider: PIO House Age/Sex: 74/M Location: [facility] Status: Signed Intake Vital Signs [...] lower extremity arterial duplex performed at [facility] reporting atherosclerotic (more content not included)... Normal [facility] Hemoglobin A1con 01-05-2025 HbA1c (Bld) [Mass fraction] 8.1 % Normal <=5.6 [facility] Comment on above: Order Comment: 304-2 Performed By: #### L [id number] #### [facility] [address] [place], [place], [address] Hemoglobin A1c percentageOrd ered By: Avani Eduardo on 01-05-2025 HbA1c (Bld) [Mass fraction] 8.1 % >5.7 [facility] Serum or plasma valproate me asurement (mass/volume)Ordered By: Avani Eduardo on 01-03-2025 Valproate [Mass/Vol] 56 ug/mL 50-100 [facility] Comment on above: Valproic Acid concen trations >100 ug/mL are potentially toxic. Valproic Acid (Depakene) Lev chandu 01-03-2025 VALPROIC ACID 56 ug/mL Normal 50-100 [facility] Comment on above: Order Comment: 304.2 Result Comment: Valp roic Acid concentrations >100 ug/mL are potentially toxic. Performed By: #### L [id number] #### [facility] [address] [place], [address] Anion gap in Serum or Plasma Ordered By: Avani Eduardo on 01-02-2025 Anion gap [Moles/Vol] 17 mmol/L High 5-15 [facility] Automated blood erythrocyte countOrdered By: Avani Eduardo on 01-02-2025 RBC (Bld) [#/Vol] 4.61 10*6/uL Normal 4.6-6.2 [facility] Comment on above: Order Comment: 304.2 Performed By: #### L [id number] #### [facility] [address] [place], [place], [address] Automated blood hematocrit ( percentage)Ordered By: Avani Eduardo on 01-02-2025 Hematocrit (Bld) [Volume fraction] 42.7 % Normal 40-54 [facility] Comment on above: Order Comment: 304.2 Performed By: #### L [id number] #### [facility] [address] [place], [address] BUN/creatinine ratioOrdered By: Avani Eduardo on 01-02-2025 Urea nitrogen/Creatinine [Mass ratio] 15.2 mg/mg - [facility] System Basic Metabolic Profile (BMP )on 01-02-2025 BUN/CRE 15.2 RATIO Normal - [facility] Comment on above: Order Comment: 304-2 Performed By: #### L 501.5200, L500.2500, L501.9520 #### [facility] [address] [place], [address] GAP 17 High 5-15 [facility] Comment on above: Order Comment: 304-2 Performed By: #### L 501.5200, L500.2500, [id number] #### [facility] [address] [place], [address] CBC-Complete Blood Cnt No Di ffon 01-02-2025 RDW SD 46.2 fl High 35.1-43.9 [facility] Comment on above: Order Comment: 304.2 Performed By: #### L 501.8100 #### [facility] [address] [place], [address] Carbon dioxide, total [Moles /volume] in Central venous bloodOrdered By: Avani Eduardo on 01-02-2025 CO2 [Moles/Vol] 23.4 mmol/L Normal 21.0-32.0 [facility] Comment on above: Order Comment: 304-2 Performed By: #### L 501.5200, L500.2500, [id number] #### [facility] [address] [place], [address] Chloride assayOrdered By: Adriel Eduardo on 01-02-2025 Chloride [Moles/Vol] 97 mmol/L Low 98-108 [facility] Comment on above: Order Comment: 304-2 Performed By: #### L 501.5200, L500.2500, [id number] #### [facility] [address] [place], [place], [id number] Erythrocyte distribution wid th ratioOrdered By: Avani Eduardo on 01-02-2025 Erythrocyte distribution width (RBC) [Ratio] 13.6 % Normal 11.6-14.6 [facility] Comment on above: Order Comment: 304.2 Performed By: #### L [id number] #### [facility] [address] [place], [place], [id number] Erythrocyte distribution wid th standard deviationOrdered By: Avani Eduardo on 01-02-2025 Erythrocyte distribution width (RBC) [Entitic vol] 46.2 fL High 35.1-43.9 [facility] Erythrocyte distribution width (RBC) [Ratio] 46.2 fl High 35.1-43.9 [facility] GFR/1.73 sq M.predicted maria elena g non-blacks MDRD (S/P/Bld) [Vol rate/Area]Ordered By: Avani Eduardo on 01-02-2025 Estimated GFR (MDRD) Non-Af Amer 90 >60 [facility] Comment on above: mL/min/1.73m2 CKD-EP I Creatinine Equation (2020) Glomerular filtration rate ( GFR) estimation/1.73 sq m using serum, plasma, or whole bOrdered By: Avani Eduardo on 01-02-2025 GFR/1.73 sq M.predicted among non-blacks MDRD (S/P/Bld) [Vol rate/Area] 90 mL/min/{1.73_m2} Normal >60 [facility] Comment on above: mL/min/1.73m2 CKD-EP I Creatinine Equation (2020) Order Comment: 304-2 Result Comment: mL/m in/1.73m2 CKD-EPI Creatinine Equation (2020) Performed By: #### L 501.5200, L500.2500, L501.9520 #### [facility] [address] [place], [place], [id number] Hemoglobin measurementOrdere d By: Avani Eduardo on 01-02-2025 Hemoglobin (Bld) [Mass/Vol] 14.8 g/dL Normal 13.0-16.5 [facility] Comment on above: Order Comment: 304.2 Performed By: #### L [id number] #### [facility] [address] [place], [address] MCV (mean corpuscular volume ) determinationOrdered By: Avani Eduardo on 01-02-2025 MCV (RBC) [Entitic vol] 92.6 fL Normal 80-94 [facility] Comment on above: Order Comment: 304.2 Performed By: #### L [id number] #### [facility] [address] [place], [place], [id number] Magnesium measurement (mass/ volume)Ordered By: Avani Eduardo on 01-02-2025 Magnesium [Mass/Vol] 2.3 mg/dL High 1.5-2.2 [facility] Comment on above: Order Comment: 304.2 Performed By: #### L [id number] #### [facility] [address] [place], [address] Magnesium (Unsp spec) [Mass/Vol] 2.3 mg/dL High 1.5-2.2 [facility] Mean corpuscular hemoglobin (MCH) determinationOrdered By: Avani Eduardo on 01-02-2025 MCH (RBC) [Entitic mass] 32.1 pg High 27.0-32.0 [facility] Comment on above: Order Comment: 304.2 Performed By: #### L [id number] #### [facility] [address] [place], [address] Mean corpuscular hemoglobin concentration (MCHC) determinationOrdered By: Avani Eduardo on 01-02-2025 MCHC (RBC) [Mass/Vol] 34.7 g/dL Normal 32-36 [facility] Comment on above: Order Comment: 304.2 Performed By: #### L [id number] #### [facility] [address] [place], [address] Mean platelet volume determi nationOrdered By: Avani Eduardo on 01-02-2025 Platelet mean volume (Bld) [Entitic vol] 9.1 fL Normal 6.2-12.0 [facility] Comment on above: Order Comment: 304.2 Performed By: #### L [id number] #### [facility] [address] [place], [address] Platelet countOrdered By: Adriel Eduardo on 01-02-2025 Platelets (Bld) [#/Vol] 193 10*3/uL Normal 150-450 [facility] Comment on above: Order Comment: 304.2 Performed By: #### L [id number] #### [facility] [address] [place], [address] Potassium measurement (mass/ volume)Ordered By: Avani Eduardo on 01-02-2025 Potassium [Moles/Vol] 4.1 mmol/L Normal 3.3-5.1 [facility] Comment on above: Hemolysis present, R esults could be affected. Order Comment: 304-2 Result Comment: Hemo lysis present, Results??could be affected. ?? Performed By: #### L 501.5200, L500.2500, L501.9520 #### [facility] [address] [place], [address] Potassium (Unsp spec) [Mass/Vol] 4.1 mmol/L 3.3-5.1 [facility] Comment on above: Hemolysis present, R esults could be affected. Serum creatinine measurement (mass/volume)Ordered By: Avani Eduardo on 01-02-2025 Creatinine [Mass/Vol] 0.87 mg/dL Normal 0.70-1.20 [facility] Comment on above: Order Comment: 304-2 Performed By: #### L 501.5200, L500.2500, [id number] #### [facility] [address] [place], [address] Serum glucose measurement (m ass/volume)Ordered By: Avani Eduardo on 01-02-2025 Glucose [Mass/Vol] 223 mg/dL High 70-99 [facility] Comment on above: Order Comment: 304-2 Performed By: #### L 501.5200, L500.2500, [id number] #### [facility] [address] [place], [address] Serum or plasma calcium minda urement (mass/volume)Ordered By: Avani Eduardo on 01-02-2025 Calcium [Mass/Vol] 9.7 mg/dL Normal 7.6-11.0 [facility] Comment on above: Order Comment: 304-2 Performed By: #### L 501.5200, L500.2500, [id number] #### [facility] [address] [place], [address] Serum or plasma urea nitroge n measurement (mass/volume)Ordered By: Avani Eduardo on 01-02-2025 Urea nitrogen [Mass/Vol] 13 mg/dL Normal 4-19 [facility] Comment on above: Order Comment: 304-2 Performed By: #### L 501.5200, L500.2500, [id number] #### [facility] [address] [place], [address] Sodium levelOrdered By: Emmanuel Eduardo on 01-02-2025 Sodium [Moles/Vol] 138 mmol/L Normal 133-145 [facility] Comment on above: Order Comment: 304-2 Performed By: #### L 501.5200, L500.2500, [id number] #### [facility] [address] [place], [address] White blood cell (WBC) count Ordered By: Avani Eduardo on 01-02-2025 WBC (Bld) [#/Vol] 9.9 10*3/uL Normal 4.4-11.0 [facility] Comment on above: Order Comment: 304.2 Performed By: #### L [id number] #### [facility] [address] [place], [place], [id number] Calculated very low density lipoprotein (VLDL) cholesterol measurementOrdered By: Avani Eduardo on 12-06-2024 Calculated very low density lipoprotein (VLDL) cholesterol measurement 49 mg/dL High 5-40 [facility] VLDL Cholesterol 49 mg/dL High 5-40 [facility] LDL calc ser/plasOrdered By: Avani Eduardo on 12-06-2024 Cholesterol in LDL [Mass/Vol] 61 mg/dL [facility] Comment on above: Ojnhkmrwqo=610-483 m g/dL & Higher Vnhi=430 mg/dL or greater LDL Cholesterol, Calculated 61 mg/dL [facility] Comment on above: Togmauaivd=535-374 m g/dL & Higher Hupn=624 mg/dL or greater Lipid Profileon 12-06-2024 CHOL:HDL 4.46 Normal [facility] Comment on above: Order Comment: 304-2 Performed By: #### L [id number] #### [facility] [address] [place], [address] Cholesterol [Mass/Vol] 141 mg/dL Normal <=200 [facility] Comment on above: Order Comment: 304-2 Result Comment: Chol esterol level, Desirable <200 mg/dL Borderline high cholesterol 200-239 mg/dL High cholesterol >=240 mg/dL Recommendations of the NCEP Adult Treatment Panel for the following risk-cutoff thresholds for the [place] population. Performed By: #### L 501.9985 #### [facility] [address] [place], [place], [id number] Cholesterol in HDL [Mass/Vol] 32 mg/dL Low [facility] Comment on above: Order Comment: 304-2 Result Comment: Luzmaria onal Cholesterol Education Program (NCEP) guidelines: <40 mg/dL: Low HDL-cholesterol (major risk factor for CHD) >= 60 mg/dL: High HDL-cholesterol (negative risk factor for CHD) HDL-cholesterol is affected by a number of factors, e.g. smoking, exercise, hormones, sex and age. Performed By: #### L [id number] #### [facility] [address] [place], [address] Cholesterol in LDL [Mass/Vol] 61 mg/dL Normal [facility] Comment on above: Order Comment: 304-2 Result Comment: Bord ftntic=739-871 mg/dL Higher Upbx=536 mg/dL or greater Performed By: #### L [id number] #### [facility] [address] [place], [address] Cholesterol in VLDL [Mass/Vol] 49 mg/dL High 5-40 [facility] Comment on above: Order Comment: 304-2 Performed By: #### L [id number] #### [facility] [address] [place], [address] Triglyceride [Mass/Vol] 244 mg/dL High [facility] Comment on above: Order Comment: 304-2 Result Comment: The drugs N-Acetylcysteine and Metamizole may falsely depress this assay. Normal range: <150 mg/dL Borderline High: 150-199 mg/dL High: 200-499 mg/dL Very High: >500 mg/dL Performed By: #### L [id number] #### [facility] [address] [place], [address] Screening total cholesterol/ high density lipoprotein (HDL) cholesterol ratioOrdered By: Avani Eduardo on 12-06-2024 Cholesterol.total/Chol esterol in HDL [Mass ratio] 4.46 {ratio} [facility] Serum or plasma cholesterol in HDL measurement (mass/volume)Ordered By: Avani Eduardo on 12-06-2024 Cholesterol in HDL [Mass/Vol] 32 mg/dL Low >40 [facility] Comment on above: National Cholesterol Education Program (NCEP) guidelines:<40 mg/dL: Low HDL-cholesterol (major risk factor for CHD)>= 60 mg/dL: High HDL-cholesterol (negative risk factor for CHD)HDL-cholesterol is affected by a number of factors, e.g. smoking, exercise, hormones, sex and age. Serum or plasma cholesterol measurement (mass/volume)Ordered By: Avani Eduardo on 12-06-2024 Cholesterol [Mass/Vol] 141 mg/dL <201 [facility] Comment on above: Cholesterol level, D esirable <200 mg/dLBorderline high cholesterol 200-239 mg/dLHigh cholesterol >=240 mg/dLRecommendations of the NCEP Adult Treatment Panel for the following risk-cutoff thresholds for the [place] population. Triglycerides measurementOrd ered By: Avani Eduardo on 12-06-2024 Triglyceride [Mass/Vol] 244 mg/dL High <199 [facility] Comment on above: The drugs N-Acetylcy steine and Metamizole may falsely depress this assay. Normal range: <150 mg/dLBorderline High: 150-199 mg/dLHigh: 200-499 mg/dLVery High: >500 mg/dL MR/Bety 11-01-2024 [facility] [address] [place] [address] OFFICE VISIT Date of Service: 11/01/24 MR#: [id number] Acct: [id number] Name: ANJEL ROSS Rep #: [id number] 2 : 1950 Provider: [facility] Age/Sex: 74/M Location: [facility] Status: Signed Intake Vital Signs [...] to the office today as referred from [facility]. The only records received from [facility] were a bilateral lower extremity arterial duplex performed at the [facility] (more content not included)... Normal [facility] Basic Metabolic Profile (BMP )on 10-05-2024 BUN/CRE 18.0 RATIO Normal - [facility] Comment on above: Order Comment: 304-2 Performed By: #### L 501.5200, L500.2500, L501.9520 #### [facility] [address] [place], [address] CA,Total 8.6 mg/dL Normal 8.5-10.1 [facility] Comment on above: Order Comment: 304-2 Performed By: #### L 501.5200, L500.2500, [id number] #### [facility] [address] [place], [address] Chloride [Moles/Vol] 102 mmol/L Normal 98-107 [facility] Comment on above: Order Comment: 304-2 Performed By: #### L 501.5200, L500.2500, [id number] #### [facility] [address] [place], [address] CO2 [Moles/Vol] 32.0 mmol/L Normal 21.0-32.0 [facility] Comment on above: Order Comment: 304-2 Performed By: #### L 501.5200, L500.2500, [id number] #### [facility] [address] [place], [address] Creatinine [Mass/Vol] 0.61 mg/dL Low 0.70-1.30 [facility] Comment on above: Order Comment: 304-2 Result Comment: The validity of the calculated GFR GFRAA in patients over 70 years has not been determined. Clinical correlation is essential. Performed By: #### L 501.5200, L500.2500, [id number] #### [facility] [address] [place], [address] EST GFR - AA 166 mL/min Normal >60 [facility] Comment on above: Order Comment: 304-2 Result Comment: Afri can [place] GFR Calc Performed By: #### L 501.5200, L500.2500, [id number] #### [facility] [address] [place], [address] GAP 6 Normal 5-15 [facility] Comment on above: Order Comment: 304-2 Performed By: #### L 501.5200, L500.2500, [id number] #### [facility] [address] [place], [address] GFR/1.73 sq M.predicted among non-blacks MDRD (S/P/Bld) [Vol rate/Area] 137 mL/min/{1.73_m2} Normal >60 [facility] Comment on above: Order Comment: 304-2 Result Comment: Non- GFR Calc Performed By: #### L 501.5200, L500.2500, [id number] #### [facility] [address] [place], [address] Glucose [Mass/Vol] 176 mg/dL High 74-106 [facility] Comment on above: Order Comment: 304-2 Result Comment: Fast ing Glucose result greater than or equal to 126 mg/dL suggests DIABETES MELLITUS per A.D.A. criteria. Performed By: #### L 501.5200, L500.2500, [id number] #### [facility] [address] [place], [address] Potassium [Moles/Vol] 3.4 mmol/L Low 3.5-5.1 [facility] Comment on above: Order Comment: 304-2 Performed By: #### L 501.5200, L500.2500, [id number] #### [facility] [address] [place], [address] Sodium [Moles/Vol] 140 mmol/L Normal 136-145 [facility] Comment on above: Order Comment: 304-2 Performed By: #### L 501.5200, L500.2500, [id number] #### [facility] [address] [place], [address] Urea nitrogen [Mass/Vol] 11 mg/dL Normal 7-18 [facility] Comment on above: Order Comment: 304-2 Performed By: #### L 501.5200, L500.2500, [id number] #### [facility] [address] [place], [address] Blood urea nitrogen (BUN)/cr eatinine ratioOrdered By: Avani Eduardo on 10-05-2024 Urea nitrogen/Creatinine [Mass ratio] 18.0 mg/mg 10-20 [facility] Carbon dioxide measurementOr dered By: Avani Eduardo on 10-05-2024 CO2 [Moles/Vol] 32.0 mmol/L 21.0-32.0 [facility] Chloride measurementOrdered By: Avani Eduardo on 10-05-2024 Chloride [Moles/Vol] 102 mmol/L 98-107 [facility] Estimated glomerular filtrat ion rate (GFR) AmericanOrdered By: Avani Eduardo on 10-05-2024 Estimated GFR (MDRD) Amer 166 mL/min >60 [facility] Comment on above: GFR Calc Glomerular filtration rate ( GFR) estimationOrdered By: Avani Eduardo on 10-05-2024 Estimated GFR (MDRD) Non-Af Amer 137 mL/min >60 [facility] Comment on above: Non- GFR Calc Glucose measurementOrdered B y: Avani Eduardo on 10-05-2024 Glucose [Mass/Vol] 176 mg/dL High 74-106 [facility] Comment on above: Fasting Glucose resu lt greater than or equal to 126 mg/dL suggests DIABETES MELLITUS per A.D.A. criteria. Magnesiumon 10-05-2024 Magnesium [Mass/Vol] 2.3 mg/dL Normal 1.6-2.6 [facility] Comment on above: Order Comment: 304-2 Performed By: #### L 501.5200, L500.2500, [id number] #### [facility] [address] [place], [place], [id number] Magnesium measurementOrdered By: Avani Eduardo on 10-05-2024 Magnesium [Mass/Vol] 2.3 mg/dL 1.6-2.6 [facility] Potassium measurementOrdered By: Aavni Eduardo on 10-05-2024 Potassium [Moles/Vol] 3.4 mmol/L Low 3.5-5.1 [facility] Serum anion gap measurementO rdered By: Avani Eduardo on 10-05-2024 Anion gap [Moles/Vol] 6 mmol/L 5-15 [facility] Serum or plasma calcium minda urement (mass/volume)Ordered By: Avani Eduardo on 10-05-2024 Calcium [Mass/Vol] 8.6 mg/dL 8.5-10.1 [facility] Serum or plasma creatinine m easurement (mass/volume)Ordered By: Avani Eduardo on 10-05-2024 Creatinine [Mass/Vol] 0.61 mg/dL Low 0.70-1.30 [facility] Comment on above: The validity of the calculated GFR & GFRAA in patients over 70 years has not been determined. Clinical correlation is essential. Serum or plasma urea nitroge n measurement (mass/volume)Ordered By: Avani Eduardo on 10-05-2024 Urea nitrogen [Mass/Vol] 11 mg/dL 7-18 [facility] Sodium levelOrdered By: Emmanuel Eduardo on 10-05-2024 Sodium [Moles/Vol] 140 mmol/L 136-145 [facility] TSH QnOrdered By: Avani smith on 10-05-2024 Thyroid Stimulating Hormone (TSH) 1.740 uIU/mL 0.358-3.74 0 [facility] Thyroid Stim Hormone (TSH)on 10-05-2024 TSH 1.740 uIU/mL Normal 0.358-3.74 0 [facility] Comment on above: Order Comment: 304-2 Performed By: #### L 501.5200, L500.2500, L501.9520 #### [facility] [address] [place], [address] Absolute neutrophil countOrd ered By: Avani Eduardo on 09-29-2024 Neutrophils (Bld) [#/Vol] 3.1 10*3/uL 2.0-7.7 [facility] Automated blood erythrocyte countOrdered By: Avani Eduardo on 09-29-2024 RBC (Bld) [#/Vol] 4.23 10*6/uL Low 4.6-6.2 [facility] Comment on above: Performed By: #### L 100.0100, L501.6710 #### [facility] [address] [place], [address] Automated blood hematocrit ( percentage)Ordered By: Avani Eduardo on 09-29-2024 Hematocrit (Bld) [Volume fraction] 39.4 % Low 40-54 [facility] Comment on above: Performed By: #### L 100.0100, L501.6710 #### [facility] [address] [place], [address] Automated lymphocyte count a s percentage of total leukocytesOrdered By: Avani Eduardo on 09-29-2024 Lymphocytes/100 WBC (Bld) 38.9 % Normal 19-41 [facility] Comment on above: Performed By: #### L 100.0100, L501.6710 #### [facility] [address] [place], [address] Basophil percentageOrdered B y: Avani Eduardo on 09-29-2024 Basophils/100 WBC (Bld) 0.8 % Normal 0-1 [facility] Comment on above: Performed By: #### L 100.0100, L501.6710 #### [facility] [address] [place], [address] C-reactive protein measureme nt by high sensitivity methodOrdered By: Avani Eduardo on 09-29-2024 C-Reactive Protein Extended Range 3.29 mg/L High 0.0-3.0 [facility] Comment on above: C-Reactive Protein ( CRP) provides useful information for thediagnosis, therapy and monitoring of inflammatory processesand associated diseases. For the evaluation of Relative Riskfor Cardiovascular Disease, a High Sensitivity CRP (HSCRP)should be ordered. CBC W/Diff, Automatedon 09-04 Absolute Lymph 2.76 X10 3/uL Normal 0.83-4.51 [facility] Comment on above: Performed By: #### L 100.0100, L501.6710 #### [facility] [address] [place], [address] Absolute Neut 3.1 X10 3/uL Normal 2.0-7.7 [facility] Comment on above: Performed By: #### L 100.0100, L501.6710 #### [facility] [address] [place], [address] IG% 0.600 Normal 0.0-0.9 [facility] Comment on above: Result Comment: IG% - Immature Granulocytes (promyelocytes, myelocytes and metamyelocytes) > 1% indicates that a LEFT SHIFT is Present. Performed By: #### L 100.0100, L501.6710 #### [facility] [address] [place], [address] Nucleated RBC (Bld) [#/Vol] 0 10*3/uL Normal 0-5 [facility] Comment on above: Performed By: #### L 100.0100, L501.6710 #### [facility] [address] [place], [address] RDW SD 45.4 fl High 35.1-43.9 [facility] Comment on above: Performed By: #### L 100.0100, L501.6710 #### [facility] [address] [place], [address] CRPon 09-29-2024 C-REACTIVE PROT 3.29 mg/L High 0.0-3.0 [facility] Comment on above: Result Comment: C-Re active Protein (CRP) provides useful information for the diagnosis, therapy and monitoring of inflammatory processes and associated diseases. For the evaluation of Relative Risk for Cardiovascular Disease, a High Sensitivity CRP (HSCRP) should be ordered. Performed By: #### L 100.0100, L501.6710 #### [facility] [address] [place], [address] Eosinophil percentageOrdered By: Avani Eduardo on 09-29-2024 Eosinophils/100 WBC (Bld) 2.4 % Normal 0-5 [facility] Comment on above: Performed By: #### L 100.0100, L501.6710 #### [facility] [address] [place], [address] Erythrocyte distribution wid th ratioOrdered By: Avani Eduardo on 09-29-2024 Erythrocyte distribution width (RBC) [Ratio] 13.4 % Normal 11.6-14.6 [facility] Comment on above: Performed By: #### L 100.0100, L501.6710 #### [facility] [address] [place], [address] Erythrocyte distribution wid th standard deviationOrdered By: Avani Eduardo on 09-29-2024 Erythrocyte distribution width (RBC) [Entitic vol] 45.4 fL High 35.1-43.9 [facility] Hemoglobin measurementOrdere d By: Avani Eduardo on 09-29-2024 Hemoglobin (Bld) [Mass/Vol] 13.1 g/dL Normal 13.0-16.5 [facility] Comment on above: Performed By: #### L 100.0100, L501.6710 #### [facility] [address] [place], [address] Immature granulocytes/100 WB C Auto (Bld)Ordered By: Avani Eduardo on 09-29-2024 Immature granulocytes/100 WBC (Bld) 0.600 % 0.0-0.9 [facility] Comment on above: IG% - Immature Granu locytes (promyelocytes, myelocytes and metamyelocytes) > 1% indicates that a LEFT SHIFT is Present. Lymphocytes Auto (Unsp spec) [#/Vol]Ordered By: Avani Eduardo on 09-29-2024 Lymphocytes (Bld) [#/Vol] 2.76 10*3/uL 0.83-4.51 [facility] MCV (mean corpuscular volume ) determinationOrdered By: Avani Eduardo on 09-29-2024 MCV (RBC) [Entitic vol] 93.1 fL Normal 80-94 [facility] Comment on above: Performed By: #### L 100.0100, [id number] #### [facility] [address] [place], [address] Mean corpuscular hemoglobin (MCH) determinationOrdered By: Avani Eduardo on 09-29-2024 MCH (RBC) [Entitic mass] 31.0 pg Normal 27.0-32.0 [facility] Comment on above: Performed By: #### L 100.0100, [id number] #### [facility] [address] [place], [address] Mean corpuscular hemoglobin concentration (MCHC) determinationOrdered By: Avani Eduardo on 09-29-2024 MCHC (RBC) [Mass/Vol] 33.2 g/dL Normal 32-36 [facility] Comment on above: Performed By: #### L 100.0100, [id number] #### [facility] [address] [place], [address] Mean platelet volume determi nationOrdered By: Avani Eduardo on 09-29-2024 Platelet mean volume (Bld) [Entitic vol] 9.4 fL Normal 6.2-12.0 [facility] Comment on above: Performed By: #### L 100.0100, [id number] #### [facility] [address] [place], [address] Monocyte percentageOrdered B y: Avani Eduardo on 09-29-2024 Monocytes/100 WBC (Bld) 14.1 % High 0-10 [facility] Comment on above: Performed By: #### L 100.0100, [id number] #### [facility] [address] [place], [address] Neutrophil percentageOrdered By: Avani Eduardo on 09-29-2024 Neutrophils/100 WBC (Bld) 43.2 % Low 47-70 [facility] Comment on above: Performed By: #### L 100.0100, [id number] #### [facility] [address] [place], [address] Nucleated red blood cell per centageOrdered By: Avani Eduardo on 09-29-2024 Nucleated RBC/100 WBC (Bld) [Ratio] 0 % 0-5 [facility] Platelet countOrdered By: Adriel Eduardo on 09-29-2024 Platelets (Bld) [#/Vol] 203 10*3/uL Normal 150-450 [facility] Comment on above: Performed By: #### L 100.0100, [id number] #### [facility] [address] [place], [address] White blood cell (WBC) count Ordered By: Avani Eduardo on 09-29-2024 WBC (Bld) [#/Vol] 7.1 10*3/uL Normal 4.4-11.0 [facility] Comment on above: Performed By: #### L 100.0100, [id number] #### [facility] [address] [place], [address] Thyroid Stim Hormone (TSH)on 08-01-2024 TSH 6.050 uIU/mL High 0.358-3.74 0 [facility] Comment on above: Order Comment: [id number] Performed By: #### L 501.5200, L500.2500, [id number] #### [facility] [address] [place], [address] Basophil percentageOrdered B y: Avani Eduardo on 01-10-2024 Bilirubin [Mass/Vol] 0.50 mg/dL 0.20-1.00 [facility] Comment on above: For patients on eltr ombopag therapy, use of Dimension Comerio TBIL is not recommended. Chloride [Moles/Vol] 101 mmol/L 98-107 [facility] Glucose [Mass/Vol] 110 mg/dL 74-106 [facility] Comment on above: Fasting Glucose resu lt from 100 to 125 mg/dL suggests IMPAIRED HOMEOSTASIS per A.D.A. criteria. Hemoglobin (Bld) [Mass/Vol] 12.4 g/dL 13.0-16.5 [facility] Potassium [Moles/Vol] 3.1 mmol/L 3.5-5.1 [facility] Protein [Mass/Vol] 6.0 g/dL 6.4-8.2 [facility] Sodium [Moles/Vol] 139 mmol/L 136-145 [facility] WBC (Bld) [#/Vol] 5.9 10*3/uL 4.4-11.0 [facility] Determination of erythrocyte mean corpuscular volume (MCV)Ordered By: Avani Eduardo on 01-10-2024 MCV (RBC) [Entitic vol] 92.2 fL 80-94 [facility] Erythrocyte distribution wid th ratioOrdered By: Avani Eduardo on 01-10-2024 Erythrocyte distribution width (RBC) [Ratio] 13.1 % 11.6-14.6 [facility] Erythrocyte distribution wid th standard deviationOrdered By: Avani Eduardo on 01-10-2024 Erythrocyte distribution width (RBC) [Entitic vol] 44.1 fL 35.1-43.9 [facility] Hematocrit Auto (Bld) [Volum e fraction]Ordered By: Avani Eduardo on 01-10-2024 Hematocrit (Bld) [Volume fraction] 37.7 % 40-54 [facility] - Chemistry and C hemistry - challengeOrdered By: Avani Eduardo on 01-10-2024 Albumin/Globulin [Mass ratio] 0.8 {ratio} 0.9-2.4 [facility] ALP [Catalytic activity/Vol] 55 U/L 45-117 [facility] ALT [Catalytic activity/Vol] 20 U/L 16-61 [facility] CO2 [Moles/Vol] 32.0 mmol/L 21.0-32.0 [facility] Globulin (S) [Mass/Vol] 3.4 g/dL 2.2-4.2 [facility] Magnesium [Mass/Vol] 2.4 mg/dL 1.6-2.6 [facility] Urea nitrogen/Creatinine [Mass ratio] 20.2 mg/mg 10-20 [facility] - Hematology and Cell countsOrdered By: Avani Eduardo on 01-10-2024 MCH (RBC) [Entitic mass] 30.3 pg 27.0-32.0 [facility] MCHC (RBC) [Mass/Vol] 32.9 g/dL 32-36 [facility] Platelet mean volume (Bld) [Entitic vol] 8.9 fL 6.2-12.0 [facility] Platelets (Bld) [#/Vol] 175 10*3/uL 150-450 [facility] No Panel InformationOrdered By: Avani Eduardo on 01-10-2024 Estimated GFR (MDRD) Amer 156 mL/min >60 [facility] Comment on above: GFR Calc Estimated GFR (MDRD) Non-Af Amer 129 mL/min >60 [facility] Comment on above: Non- GFR Calc RBC Auto (Bld) [#/Vol]Ordere d By: Avani Eduardo on 01-10-2024 RBC (Bld) [#/Vol] 4.09 10*6/uL 4.6-6.2 [facility] Serum or plasma calcium minda urement (mass/volume)Ordered By: Avani Eduardo on 01-10-2024 Calcium [Mass/Vol] 8.6 mg/dL 8.5-10.1 [facility] Serum or plasma creatinine m easurement (mass/volume)Ordered By: Avani Eduardo on 01-10-2024 Creatinine [Mass/Vol] 0.64 mg/dL 0.70-1.30 [facility] Comment on above: The validity of the calculated GFR & GFRAA in patients over 70 years has not been determined. Clinical correlation is essential. Serum or plasma urea nitroge n measurement (mass/volume)Ordered By: Avani Eduardo on 01-10-2024 Urea nitrogen [Mass/Vol] 13 mg/dL 7-18 [facility] Thin prep Papanicolaou smear with manual screeningOrdered By: Avani Eduardo on 01-10-2024 Thin prep Papanicolaou smear with manual screening 2.6 g/dL 3.2-5.0 [facility] Thin prep Papanicolaou smear with manual screening 26 U/L 15-37 [facility] Thin prep Papanicolaou smear with manual screening 6 5-15 [facility] Basophil percentageOrdered B y: Avani Eduardo on 01-03-2024 Bilirubin [Mass/Vol] 0.50 mg/dL 0.20-1.00 [facility] Comment on above: For patients on eltr ombopag therapy, use of Dimension [place]erio TBIL is not recommended. Chloride [Moles/Vol] 103 mmol/L 98-107 [facility] Glucose [Mass/Vol] 131 mg/dL 74-106 [facility] Comment on above: Fasting Glucose resu lt greater than or equal to 126 mg/dL suggests DIABETES MELLITUS per A.D.A. criteria. Hemoglobin (Bld) [Mass/Vol] 12.1 g/dL 13.0-16.5 [facility] Potassium [Moles/Vol] 3.2 mmol/L 3.5-5.1 [facility] Protein [Mass/Vol] 5.8 g/dL 6.4-8.2 [facility] Sodium [Moles/Vol] 139 mmol/L 136-145 [facility] WBC (Bld) [#/Vol] 5.4 10*3/uL 4.4-11.0 [facility] Determination of erythrocyte mean corpuscular volume (MCV)Ordered By: Avani Eduardo on 01-03-2024 MCV (RBC) [Entitic vol] 92.0 fL 80-94 [facility] Erythrocyte distribution wid th ratioOrdered By: Avani Eduardo on 01-03-2024 Erythrocyte distribution width (RBC) [Ratio] 13.2 % 11.6-14.6 [facility] Erythrocyte distribution wid th standard deviationOrdered By: Avani Eduardo on 01-03-2024 Erythrocyte distribution width (RBC) [Entitic vol] 45.0 fL 35.1-43.9 [facility] Hematocrit Auto (Bld) [Volum e fraction]Ordered By: Avani Eduardo on 01-03-2024 Hematocrit (Bld) [Volume fraction] 35.8 % 40-54 [facility] - Chemistry and C hemistry - challengeOrdered By: Avanigómez Eduardo on 01-03-2024 Albumin/Globulin [Mass ratio] 0.8 {ratio} 0.9-2.4 [facility] ALP [Catalytic activity/Vol] 52 U/L 45-117 [facility] ALT [Catalytic activity/Vol] 18 U/L 16-61 [facility] CO2 [Moles/Vol] 31.0 mmol/L 21.0-32.0 [facility] Globulin (S) [Mass/Vol] 3.3 g/dL 2.2-4.2 [facility] Magnesium [Mass/Vol] 2.2 mg/dL 1.6-2.6 [facility] Urea nitrogen/Creatinine [Mass ratio] 20.9 mg/mg 10-20 [facility] - Hematology and Cell countsOrdered By: Avani Eduardo on 01-03-2024 MCH (RBC) [Entitic mass] 31.1 pg 27.0-32.0 [facility] MCHC (RBC) [Mass/Vol] 33.8 g/dL 32-36 [facility] Platelet mean volume (Bld) [Entitic vol] 9.3 fL 6.2-12.0 [facility] Platelets (Bld) [#/Vol] 140 10*3/uL 150-450 [facility] No Panel InformationOrdered By: Avani Eduardo on 01-03-2024 Estimated GFR (MDRD) Amer 162 mL/min >60 [facility] Comment on above: GFR Calc Estimated GFR (MDRD) Non-Af Amer 134 mL/min >60 [facility] Comment on above: Non- GFR Calc RBC Auto (Bld) [#/Vol]Ordere d By: Avani Eduardo on 01-03-2024 RBC (Bld) [#/Vol] 3.89 10*6/uL 4.6-6.2 [facility] Serum or plasma calcium minda urement (mass/volume)Ordered By: Avani Eduardo on 01-03-2024 Calcium [Mass/Vol] 8.7 mg/dL 8.5-10.1 [facility] Serum or plasma creatinine m easurement (mass/volume)Ordered By: Avani Eduardo on 01-03-2024 Creatinine [Mass/Vol] 0.62 mg/dL 0.70-1.30 [facility] Comment on above: The validity of the calculated GFR & GFRAA in patients over 70 years has not been determined. Clinical correlation is essential. Serum or plasma urea nitroge n measurement (mass/volume)Ordered By: Avani Eduardo on 01-03-2024 Urea nitrogen [Mass/Vol] 13 mg/dL 7-18 [facility] Thin prep Papanicolaou smear with manual screeningOrdered By: Avani Eduardo on 01-03-2024 Thin prep Papanicolaou smear with manual screening 2.5 g/dL 3.2-5.0 [facility] Thin prep Papanicolaou smear with manual screening 22 U/L 15-37 [facility] Thin prep Papanicolaou smear with manual screening 5 5-15 [facility] Serum or plasma thyroid stim ulating hormone (TSH) measurement (units/volume)Ordered By: Avani Eduardo on 12-15-2023 TSH Qn 8.74 uIU/mL 0.358-3.74 [facility] Basophil percentageOrdered B y: Avani Eduardo on 11-04-2023 Bilirubin [Mass/Vol] 0.40 mg/dL 0.20-1.00 [facility] Comment on above: For patients on eltr ombopag therapy, use of Dimension [place]erio TBIL is not recommended. Protein [Mass/Vol] 6.9 g/dL 6.4-8.2 [facility] Direct bilirubinOrdered By: Avani Eduardo on 11-04-2023 Bilirubin.direct [Mass/Vol] 0.13 mg/dL 0.00-0.30 [facility] - Chemistry and C hemistry - challengeOrdered By: Avani Eduardo on 11-04-2023 ALP [Catalytic activity/Vol] 66 U/L 45-117 [facility] ALT [Catalytic activity/Vol] 28 U/L 16-61 [facility] Globulin (S) [Mass/Vol] 4.0 g/dL 2.2-4.2 [facility] Thin prep Papanicolaou smear with manual screeningOrdered By: Avanigómez Eduardo on 11-04-2023 Thin prep Papanicolaou smear with manual screening 2.9 g/dL 3.2-5.0 [facility] Thin prep Papanicolaou smear with manual screening 22 U/L 15-37 [facility] Absolute lymphocyte countOrd ered By: Avanigómez Eduardo on 10-20-2023 Lymphocytes Auto (Unsp spec) [#/Vol] 2.41 10*3/uL 0.83-4.51 [facility] Automated lymphocyte count a s percentage of total leukocytesOrdered By: Avani Eduardo on 10-20-2023 Lymphocytes/100 WBC Auto (Unsp spec) 34.2 % 19-41 [facility] Basophil percentageOrdered B y: Avani Eduardo on 10-20-2023 Basophils/100 WBC (Bld) 0.6 % 0-1 [facility] Chloride [Moles/Vol] 101 mmol/L 98-107 [facility] Eosinophils/100 WBC (Bld) 2.0 % 0-5 [facility] Glucose [Mass/Vol] 142 mg/dL 74-106 [facility] Comment on above: Fasting Glucose resu lt greater than or equal to 126 mg/dL suggests DIABETES MELLITUS per A.D.A. criteria. Hemoglobin (Bld) [Mass/Vol] 14.2 g/dL 13.0-16.5 [facility] Monocytes/100 WBC (Bld) 12.8 % 0-10 [facility] Neutrophils (Bld) [#/Vol] 3.5 10*3/uL 2.0-7.7 [facility] Neutrophils/100 WBC (Bld) 49.5 % 47-70 [facility] Potassium [Moles/Vol] 3.6 mmol/L 3.5-5.1 [facility] Sodium [Moles/Vol] 139 mmol/L 136-145 [facility] WBC (Bld) [#/Vol] 7.0 10*3/uL 4.4-11.0 [facility] Determination of erythrocyte mean corpuscular volume (MCV)Ordered By: Avani Eduardo on 10-20-2023 MCV (RBC) [Entitic vol] 91.9 fL 80-94 [facility] Erythrocyte distribution wid th ratioOrdered By: Avani Eduardo on 10-20-2023 Erythrocyte distribution width (RBC) [Ratio] 13.2 % 11.6-14.6 [facility] Erythrocyte distribution wid th standard deviationOrdered By: Avani Eduardo on 10-20-2023 Erythrocyte distribution width (RBC) [Entitic vol] 44.6 fL 35.1-43.9 [facility] Hematocrit Auto (Bld) [Volum e fraction]Ordered By: Avnai Eduardo on 10-20-2023 Hematocrit (Bld) [Volume fraction] 43.0 % 40-54 [facility] Immature granulocytes/100 WB C Auto (Bld)Ordered By: Avani Eduardo on 10-20-2023 Immature granulocytes/100 WBC (Bld) 0.900 % 0.0-0.9 [facility] Comment on above: IG% - Immature Granu locytes (promyelocytes, myelocytes and metamyelocytes) > 1% indicates that a LEFT SHIFT is Present. Laboratory - Chemistry and C hemistry - challengeOrdered By: Avani Eduardo on 10-20-2023 CO2 [Moles/Vol] 33.0 mmol/L 21.0-32.0 [facility] Urea nitrogen/Creatinine [Mass ratio] 16.5 mg/mg 10-20 [facility] - Hematology and Cell countsOrdered By: Avani Eduardo on 10-20-2023 MCH (RBC) [Entitic mass] 30.3 pg 27.0-32.0 [facility] MCHC (RBC) [Mass/Vol] 33.0 g/dL 32-36 [facility] Nucleated RBC/100 WBC (Bld) [Ratio] 0 % 0-5 [facility] Platelets (Bld) [#/Vol] 197 10*3/uL 150-450 [facility] No Panel InformationOrdered By: Avani Eduardo on 10-20-2023 Estimated GFR (MDRD) Amer 114 mL/min >60 [facility] Comment on above: GFR Calc Estimated GFR (MDRD) Non-Af Amer 94 mL/min >60 [facility] Comment on above: Non- GFR Calc Platelet mean volume Riaz-Ec ker (Bld) [Entitic vol]Ordered By: Avani Eduardo on 10-20-2023 Platelet mean volume (Bld) [Entitic vol] 8.6 fL 6.2-12.0 [facility] RBC Auto (Bld) [#/Vol]Ordere d By: Avani Eduardo on 10-20-2023 RBC (Bld) [#/Vol] 4.68 10*6/uL 4.6-6.2 [facility] Serum or plasma calcium minda urement (mass/volume)Ordered By: Avani Eduardo on 10-20-2023 Calcium [Mass/Vol] 9.4 mg/dL 8.5-10.1 [facility] Serum or plasma creatinine m easurement (mass/volume)Ordered By: Avani Eduardo on 10-20-2023 Creatinine [Mass/Vol] 0.85 mg/dL 0.70-1.30 [facility] Comment on above: The validity of the calculated GFR & GFRAA in patients over 70 years has not been determined. Clinical correlation is essential. Serum or plasma urea nitroge n measurement (mass/volume)Ordered By: Avani Eduardo on 10-20-2023 Urea nitrogen [Mass/Vol] 14 mg/dL 7-18 [facility] Thin prep Papanicolaou smear with manual screeningOrdered By: Avani Eduardo on 10-20-2023 Thin prep Papanicolaou smear with manual screening 5 5-15 [facility] - Chemistry and C hemistry - challengeOrdered By: Avani Eduardo on 10-11-2023 T4 [Mass/Vol] 10.8 ug/dL 4.5-12.1 [facility] No Panel InformationOrdered By: Avani Eduardo on 10-11-2023 Thyroid Stimulating Hormone (TSH) 5.65 uIU/mL 0.358-3.74 [facility] Basophil percentageOrdered B y: Avani Eduardo on 10-05-2023 Chloride [Moles/Vol] 105 mmol/L 98-107 [facility] Glucose [Mass/Vol] 95 mg/dL 74-106 [facility] Potassium [Moles/Vol] 3.7 mmol/L 3.5-5.1 [facility] Comment on above: Slight Hemolysis, Re sult may be falsely increased. Sodium [Moles/Vol] 139 mmol/L 136-145 [facility] Laboratory - Chemistry and C hemistry - challengeOrdered By: Avani Eduardo on 10-05-2023 CO2 [Moles/Vol] 30.0 mmol/L 21.0-32.0 [facility] Magnesium [Mass/Vol] 2.5 mg/dL 1.6-2.6 [facility] Comment on above: Slight Hemolysis, Re sult may be falsely increased. Urea nitrogen/Creatinine [Mass ratio] 16.3 mg/mg 10-20 [facility] No Panel InformationOrdered By: Avani Eduardo on 10-05-2023 Estimated GFR (MDRD) Amer 134 mL/min >60 [facility] Comment on above: GFR Calc Estimated GFR (MDRD) Non-Af Amer 111 mL/min >60 [facility] Comment on above: Non- GFR Calc Serum or plasma calcium minda urement (mass/volume)Ordered By: Avani Eduardo on 10-05-2023 Calcium [Mass/Vol] 8.0 mg/dL 8.5-10.1 [facility] Serum or plasma creatinine m easurement (mass/volume)Ordered By: Avani Eduardo on 10-05-2023 Creatinine [Mass/Vol] 0.74 mg/dL 0.70-1.30 [facility] Comment on above: The validity of the calculated GFR & GFRAA in patients over 70 years has not been determined. Clinical correlation is essential. Serum or plasma urea nitroge n measurement (mass/volume)Ordered By: Avani Eduardo on 10-05-2023 Urea nitrogen [Mass/Vol] 12 mg/dL 7-18 [facility] Thin prep Papanicolaou smear with manual screeningOrdered By: Avani Eduardo on 10-05-2023 Thin prep Papanicolaou smear with manual screening 4 5-15 [facility] Absolute lymphocyte countOrd ered By: Avani Eduardo on 09-22-2023 Lymphocytes Auto (Unsp spec) [#/Vol] 2.51 10*3/uL 0.83-4.51 [facility] Basophil percentageOrdered B y: Avani Eduardo on 09-22-2023 Basophils/100 WBC (Bld) 0.5 % 0-1 [facility] Chloride [Moles/Vol] 107 mmol/L 98-107 [facility] Eosinophils/100 WBC (Bld) 1.7 % 0-5 [facility] Glucose [Mass/Vol] 123 mg/dL 74-106 [facility] Comment on above: Fasting Glucose resu lt from 100 to 125 mg/dL suggests IMPAIRED HOMEOSTASIS per A.D.A. criteria. Neutrophils (Bld) [#/Vol] 2.3 10*3/uL 2.0-7.7 [facility] Neutrophils/100 WBC (Bld) 38.7 % 47-70 [facility] Potassium [Moles/Vol] 3.7 mmol/L 3.5-5.1 [facility] Sodium [Moles/Vol] 143 mmol/L 136-145 [facility] WBC (Bld) [#/Vol] 5.8 10*3/uL 4.4-11.0 [facility] Blood erythrocytes count (nu mber/volume)Ordered By: Avani Eduardo on 09-22-2023 RBC (Bld) [#/Vol] 4.08 10*6/uL 4.6-6.2 [facility] Blood hemoglobin measurement (mass/volume)Ordered By: Avani Eduardo on 09-22-2023 Hemoglobin (Bld) [Mass/Vol] 12.6 g/dL 13.0-16.5 [facility] Blood lymphocytes/100 leukoc ytesOrdered By: Avani Eduardo on 09-22-2023 Lymphocytes/100 WBC (Bld) 43.1 % 19-41 [facility] Blood monocytes/100 leukocyt esOrdered By: Avani Eduardo on 09-22-2023 Monocytes/100 WBC (Bld) 14.8 % 0-10 [facility] Blood platelet mean volumeOr dered By: Avani Eduardo on 09-22-2023 Platelet mean volume (Bld) [Entitic vol] 8.8 fL 6.2-12.0 [facility] Determination of erythrocyte mean corpuscular volume (MCV)Ordered By: Avani Eduardo on 09-22-2023 MCV (RBC) [Entitic vol] 93.6 fL 80-94 [facility] Hematocrit Auto (Bld) [Volum e fraction]Ordered By: Avani Eduardo on 09-22-2023 Hematocrit (Bld) [Volume fraction] 38.2 % 40-54 [facility] Laboratory - Chemistry and C hemistry - challengeOrdered By: Avani Eduardo on 09-22-2023 CO2 [Moles/Vol] 34.0 mmol/L 21.0-32.0 [facility] Natriuretic peptide B (Bld) [Mass/Vol] 7.4 pg/mL 0-100 [facility] Urea nitrogen/Creatinine [Mass ratio] 24.9 mg/mg 10-20 [facility] - Hematology and Cell countsOrdered By: Avani Eduardo on 09-22-2023 Erythrocyte distribution width (RBC) [Entitic vol] 45.8 fL 35.1-43.9 [facility] Erythrocyte distribution width (RBC) [Ratio] 13.3 % 11.6-14.6 [facility] Immature granulocytes/100 WBC (Bld) 1.200 % 0.0-0.9 [facility] Comment on above: IG% - Immature Granu locytes (promyelocytes, myelocytes and metamyelocytes) > 1% indicates that a LEFT SHIFT is Present. MCH (RBC) [Entitic mass] 30.9 pg 27.0-32.0 [facility] Nucleated RBC/100 WBC (Bld) [Ratio] 0 % 0-5 [facility] MCHC Auto (RBC) [Mass/Vol]Or dered By: Avani Eduardo on 09-22-2023 MCHC (RBC) [Mass/Vol] 33.0 g/dL 32-36 [facility] No Panel InformationOrdered By: Avani Eduardo on 09-22-2023 Estimated GFR (MDRD) Amer 146 mL/min >60 [facility] Comment on above: GFR Calc Estimated GFR (MDRD) Non-Af Amer 121 mL/min >60 [facility] Comment on above: Non- GFR Calc Platelets bldOrdered By: Ethan Eduardo on 09-22-2023 Platelets (Bld) [#/Vol] 170 10*3/uL 150-450 [facility] Serum or plasma calcium minda urement (mass/volume)Ordered By: Avani Eduardo on 09-22-2023 Calcium [Mass/Vol] 8.8 mg/dL 8.5-10.1 [facility] Serum or plasma creatinine m easurement (mass/volume)Ordered By: Avani Eduardo on 09-22-2023 Creatinine [Mass/Vol] 0.68 mg/dL 0.70-1.30 [facility] Comment on above: The validity of the calculated GFR & GFRAA in patients over 70 years has not been determined. Clinical correlation is essential. Serum or plasma urea nitroge n measurement (mass/volume)Ordered By: Avani Eduardo on 09-22-2023 Urea nitrogen [Mass/Vol] 17 mg/dL 7-18 [facility] Thin prep Papanicolaou smear with manual screeningOrdered By: Avani Eduardo on 09-22-2023 Thin prep Papanicolaou smear with manual screening 2 5-15 [facility] Basophil percentageOrdered B y: Avani Eduardo on 09-13-2023 Chloride [Moles/Vol] 105 mmol/L 98-107 [facility] Glucose [Mass/Vol] 100 mg/dL 74-106 [facility] Comment on above: Fasting Glucose resu lt from 100 to 125 mg/dL suggests IMPAIRED HOMEOSTASIS per A.D.A. criteria. Potassium [Moles/Vol] 4.3 mmol/L 3.5-5.1 [facility] Sodium [Moles/Vol] 139 mmol/L 136-145 [facility] Laboratory - Chemistry and C hemistry - challengeOrdered By: Avani Eduardo on 09-13-2023 CO2 [Moles/Vol] 28.0 mmol/L 21.0-32.0 [facility] Urea nitrogen/Creatinine [Mass ratio] 21.8 mg/mg 10-20 [facility] No Panel InformationOrdered By: Avani Eduardo on 09-13-2023 Estimated GFR (MDRD) Amer 157 mL/min >60 [facility] Comment on above: GFR Calc Estimated GFR (MDRD) Non-Af Amer 130 mL/min >60 [facility] Comment on above: Non- GFR Calc Serum or plasma calcium minda urement (mass/volume)Ordered By: Avani Eduardo on 09-13-2023 Calcium [Mass/Vol] 8.4 mg/dL 8.5-10.1 [facility] Serum or plasma creatinine m easurement (mass/volume)Ordered By: Avani Eduardo on 09-13-2023 Creatinine [Mass/Vol] 0.64 mg/dL 0.70-1.30 [facility] Comment on above: The validity of the calculated GFR & GFRAA in patients over 70 years has not been determined. Clinical correlation is essential. Serum or plasma urea nitroge n measurement (mass/volume)Ordered By: Avani Eduardo on 09-13-2023 Urea nitrogen [Mass/Vol] 14 mg/dL 7-18 [facility] Thin prep Papanicolaou smear with manual screeningOrdered By: Avani Eduardo on 09-13-2023 Thin prep Papanicolaou smear with manual screening 6 5-15 [facility] No Panel InformationOrdered By: Avani Eduardo on 08-30-2023 Levetiracetam (Keppra) Level 25.0 ug/mL 10.0-40.0 [facility] Comment on above: Performed at: [address] [id number] Director: Jess Bess MD, Phone: [phone] Absolute lymphocyte countOrd ered By: Avani Eduardo on 08-23-2023 Lymphocytes Auto (Unsp spec) [#/Vol] 1.90 10*3/uL 0.83-4.51 [facility] Basophil percentageOrdered B y: Avani Eduardo on 08-23-2023 Basophils/100 WBC (Bld) 0.7 % 0-1 [facility] Chloride [Moles/Vol] 104 mmol/L 98-107 [facility] Eosinophils/100 WBC (Bld) 2.2 % 0-5 [facility] Glucose [Mass/Vol] 122 mg/dL 74-106 [facility] Comment on above: Fasting Glucose resu lt from 100 to 125 mg/dL suggests IMPAIRED HOMEOSTASIS per A.D.A. criteria. Neutrophils (Bld) [#/Vol] 2.5 10*3/uL 2.0-7.7 [facility] Neutrophils/100 WBC (Bld) 45.6 % 47-70 [facility] Potassium [Moles/Vol] 3.7 mmol/L 3.5-5.1 [facility] Sodium [Moles/Vol] 142 mmol/L 136-145 [facility] WBC (Bld) [#/Vol] 5.6 10*3/uL 4.4-11.0 [facility] Blood erythrocytes count (nu mber/volume)Ordered By: Avani Eduardo on 08-23-2023 RBC (Bld) [#/Vol] 4.12 10*6/uL 4.6-6.2 [facility] Blood hemoglobin measurement (mass/volume)Ordered By: Avani Eduardo on 08-23-2023 Hemoglobin (Bld) [Mass/Vol] 12.3 g/dL 13.0-16.5 [facility] Blood lymphocytes/100 leukoc ytesOrdered By: Avani Eduardo on 08-23-2023 Lymphocytes/100 WBC (Bld) 34.2 % 19-41 [facility] Blood monocytes/100 leukocyt esOrdered By: Avani Eduardo on 08-23-2023 Monocytes/100 WBC (Bld) 16.0 % 0-10 [facility] Blood platelet mean volumeOr dered By: Avani Eduardo on 08-23-2023 Platelet mean volume (Bld) [Entitic vol] 9.3 fL 6.2-12.0 [facility] Determination of erythrocyte mean corpuscular volume (MCV)Ordered By: Avani Eduardo on 08-23-2023 MCV (RBC) [Entitic vol] 93.7 fL 80-94 [facility] Hematocrit Auto (Bld) [Volum e fraction]Ordered By: Avani Eduardo on 08-23-2023 Hematocrit (Bld) [Volume fraction] 38.6 % 40-54 [facility] Laboratory - Chemistry and C hemistry - challengeOrdered By: Avani Eduardo on 08-23-2023 CO2 [Moles/Vol] 31.0 mmol/L 21.0-32.0 [facility] Magnesium [Mass/Vol] 2.6 mg/dL 1.6-2.6 [facility] Urea nitrogen/Creatinine [Mass ratio] 26.0 mg/mg 10-20 [facility] Laboratory - Hematology and Cell countsOrdered By: Avanigómez Eduardo on 08-23-2023 Erythrocyte distribution width (RBC) [Entitic vol] 46.4 fL 35.1-43.9 [facility] Erythrocyte distribution width (RBC) [Ratio] 13.4 % 11.6-14.6 [facility] Immature granulocytes/100 WBC (Bld) 1.300 % 0.0-0.9 [facility] Comment on above: IG% - Immature Granu locytes (promyelocytes, myelocytes and metamyelocytes) > 1% indicates that a LEFT SHIFT is Present. MCH (RBC) [Entitic mass] 29.9 pg 27.0-32.0 [facility] Nucleated RBC/100 WBC (Bld) [Ratio] 0 % 0-5 [facility] MCHC Auto (RBC) [Mass/Vol]Or dered By: Avani Eduardo on 08-23-2023 MCHC (RBC) [Mass/Vol] 31.9 g/dL 32-36 [facility] No Panel InformationOrdered By: Avani Eduardo on 08-23-2023 Estimated GFR (MDRD) Amer 144 mL/min >60 [facility] Comment on above: GFR Calc Estimated GFR (MDRD) Non-Af Amer 119 mL/min >60 [facility] Comment on above: Non- GFR Calc Levetiracetam (Keppra) Level 51.4 ug/mL 10.0-40.0 [facility] Comment on above: Performed at: - [address] [id number] Director: Jess Bess MD, Phone: [phone] Valproic Acid (Depakene) Level 60 ug/mL 50-100 [facility] Platelets bldOrdered By: Ethan Eduardo on 08-23-2023 Platelets (Bld) [#/Vol] 174 10*3/uL 150-450 [facility] Serum or plasma calcium minda urement (mass/volume)Ordered By: Avani Eduardo on 08-23-2023 Calcium [Mass/Vol] 8.5 mg/dL 8.5-10.1 [facility] Serum or plasma creatinine m easurement (mass/volume)Ordered By: Avani Eduardo on 08-23-2023 Creatinine [Mass/Vol] 0.69 mg/dL 0.70-1.30 [facility] Comment on above: The validity of the calculated GFR & GFRAA in patients over 70 years has not been determined. Clinical correlation is essential. Serum or plasma urea nitroge n measurement (mass/volume)Ordered By: Avani Eduardo on 08-23-2023 Urea nitrogen [Mass/Vol] 18 mg/dL -18 [facility] Serum or plasma uric acid me asurement (mass/volume)Ordered By: Avani Eduardo on 08-23-2023 Urate [Mass/Vol] 5.6 mg/dL 3.5-7.2 [facility] Comment on above: The drugs N-Acetylcy steine and Metamizole may falsely depress this assay. Thin prep Papanicolaou smear with manual screeningOrdered By: Avani Eduardo on 08-23-2023 Thin prep Papanicolaou smear with manual screening 7 5-15 [facility] Basophil percentageOrdered B y: Avani Eduardo on 05-24-2023 Cholesterol [Mass/Vol] 143 mg/dL <200 [facility] Comment on above: <200 mg/dL Desirable 200-240 mg/dL Borderline >240 mg/dL High Risk Triglyceride [Mass/Vol] 102 mg/dL <199 [facility] Comment on above: The drugs N-Acetylcy steine and Metamizole may falsely depress this assay.Serum Triglycerides Reference Interval Normal <150 mg/dL Borderline high 150 - 199 mg/dL High 200 - 499 mg/dL Very High > or = 500 mg/dL Serum or plasma cholesterol in HDL measurement (mass/volume)Ordered By: Avani Eduardo on 05-24-2023 Cholesterol in HDL [Mass/Vol] 54 mg/dL >40 [facility] Comment on above: The drugs N-Acetylcy steine and Metamizole may falsely depress this assay. Reference Range HDL <40 mg/dL Low HDL Cholesterol HDL >or= 60 mg/dL High HDL Cholesterol Serum or plasma cholesterol in VLDL measurement (mass/volume)Ordered By: Avani Eduardo on 05-24-2023 Cholesterol in VLDL [Mass/Vol] 20 mg/dL 5-40 [facility] Serum or plasma low density lipoprotein (LDL) cholesterol measurement (mass/volume)Ordered By: Avani Eduardo on 05-24-2023 Cholesterol in LDL [Mass/Vol] 69 mg/dL 0-130 [facility] Basophil percentageOrdered B y: Avani Eduardo on 02-16-2023 Chloride [Moles/Vol] 106 mmol/L 98-107 [facility] Glucose [Mass/Vol] 61 mg/dL 74-106 [facility] Potassium [Moles/Vol] 4.1 mmol/L 3.5-5.1 [facility] Sodium [Moles/Vol] 142 mmol/L 136-145 [facility] WBC (Bld) [#/Vol] 5.5 10*3/uL 4.4-11.0 [facility] Blood erythrocytes count (nu mber/volume)Ordered By: Avani Eduardo on 02-16-2023 RBC (Bld) [#/Vol] 3.87 10*6/uL 4.6-6.2 [facility] Blood hemoglobin measurement (mass/volume)Ordered By: Avani Eduardo on 02-16-2023 Hemoglobin (Bld) [Mass/Vol] 12.7 g/dL 13.0-16.5 [facility] Blood platelet mean volumeOr dered By: Avani Eduardo on 02-16-2023 Platelet mean volume (Bld) [Entitic vol] 9.0 fL 6.2-12.0 [facility] Determination of erythrocyte mean corpuscular volume (MCV)Ordered By: Avani Eduardo on 02-16-2023 MCV (RBC) [Entitic vol] 104.4 fL 80-94 [facility] Hematocrit Auto (Bld) [Volum e fraction]Ordered By: Avani Eduardo on 02-16-2023 Hematocrit (Bld) [Volume fraction] 40.4 % 40-54 [facility] Laboratory - Chemistry and C hemistry - challengeOrdered By: Avani Eduardo on 02-16-2023 CO2 [Moles/Vol] 27.0 mmol/L 21.0-32.0 [facility] Magnesium [Mass/Vol] 2.6 mg/dL 1.6-2.6 [facility] Urea nitrogen/Creatinine [Mass ratio] 26.0 mg/mg 10-20 [facility] Laboratory - Hematology and Cell countsOrdered By: Avani Eduardo on 02-16-2023 Erythrocyte distribution width (RBC) [Entitic vol] 46.1 fL 35.1-43.9 [facility] Erythrocyte distribution width (RBC) [Ratio] 11.9 % 11.6-14.6 [facility] MCH (RBC) [Entitic mass] 32.8 pg 27.0-32.0 [facility] MCHC Auto (RBC) [Mass/Vol]Or dered By: Avani Eduardo on 02-16-2023 MCHC (RBC) [Mass/Vol] 31.4 g/dL 32-36 [facility] No Panel InformationOrdered By: Avani Eduardo on 02-16-2023 Estimated GFR (MDRD) Amer 178 mL/min >60 [facility] Comment on above: GFR Calc Estimated GFR (MDRD) Non-Af Amer 147 mL/min >60 [facility] Comment on above: Non- GFR Calc Platelets bldOrdered By: Ethan Eduardo on 02-16-2023 Platelets (Bld) [#/Vol] 141 10*3/uL 150-450 [facility] Serum or plasma calcium minda urement (mass/volume)Ordered By: Avani Eduardo on 02-16-2023 Calcium [Mass/Vol] 8.7 mg/dL 8.5-10.1 [facility] Serum or plasma creatinine m easurement (mass/volume)Ordered By: Avani Eduardo on 02-16-2023 Creatinine [Mass/Vol] 0.58 mg/dL 0.70-1.30 [facility] Comment on above: The validity of the calculated GFR & GFRAA in patients over 70 years has not been determined. Clinical correlation is essential. Serum or plasma urea nitroge n measurement (mass/volume)Ordered By: Avani Eduardo on 02-16-2023 Urea nitrogen [Mass/Vol] 15 mg/dL 7-18 [facility] Thin prep Papanicolaou smear with manual screeningOrdered By: Avanigómez Eduardo on 02-16-2023 Thin prep Papanicolaou smear with manual screening 9 5-15 [facility] Basophil percentageOrdered B y: Avani Eduardo on 02-09-2023 Chloride [Moles/Vol] 106 mmol/L 98-107 [facility] Glucose [Mass/Vol] 95 mg/dL 74-106 [facility] Potassium [Moles/Vol] 3.9 mmol/L 3.5-5.1 [facility] Sodium [Moles/Vol] 143 mmol/L 136-145 [facility] WBC (Bld) [#/Vol] 7.2 10*3/uL 4.4-11.0 [facility] Blood erythrocytes count (nu mber/volume)Ordered By: Avani Eduardo on 02-09-2023 RBC (Bld) [#/Vol] 3.98 10*6/uL 4.6-6.2 [facility] Blood hemoglobin measurement (mass/volume)Ordered By: Avani Eduardo on 02-09-2023 Hemoglobin (Bld) [Mass/Vol] 13.1 g/dL 13.0-16.5 [facility] Blood platelet mean volumeOr dered By: Avani Eduardo on 02-09-2023 Platelet mean volume (Bld) [Entitic vol] 9.3 fL 6.2-12.0 [facility] Determination of erythrocyte mean corpuscular volume (MCV)Ordered By: Avani Eduardo on 02-09-2023 MCV (RBC) [Entitic vol] 103.0 fL 80-94 [facility] Hematocrit Auto (Bld) [Volum e fraction]Ordered By: Avani Eduardo on 02-09-2023 Hematocrit (Bld) [Volume fraction] 41.0 % 40-54 [facility] Laboratory - Chemistry and C hemistry - challengeOrdered By: Avani Eduardo on 02-09-2023 CO2 [Moles/Vol] 31.0 mmol/L 21.0-32.0 [facility] Magnesium [Mass/Vol] 2.7 mg/dL 1.6-2.6 [facility] Urea nitrogen/Creatinine [Mass ratio] 21.5 mg/mg 10-20 [facility] Laboratory - Hematology and Cell countsOrdered By: Avani Eduardo on 02-09-2023 Erythrocyte distribution width (RBC) [Entitic vol] 46.2 fL 35.1-43.9 [facility] Erythrocyte distribution width (RBC) [Ratio] 12.2 % 11.6-14.6 [facility] MCH (RBC) [Entitic mass] 32.9 pg 27.0-32.0 [facility] MCHC Auto (RBC) [Mass/Vol]Or dered By: Avani Eduardo on 02-09-2023 MCHC (RBC) [Mass/Vol] 32.0 g/dL 32-36 [facility] No Panel InformationOrdered By: Avani Eduardo on 02-09-2023 Estimated GFR (MDRD) Amer 155 mL/min >60 [facility] Comment on above: GFR Calc Estimated GFR (MDRD) Non-Af Amer 128 mL/min >60 [facility] Comment on above: Non- GFR Calc Platelets bldOrdered By: Ethan Eduardo on 02-09-2023 Platelets (Bld) [#/Vol] 185 10*3/uL 150-450 [facility] Serum or plasma calcium minda urement (mass/volume)Ordered By: Avani Eduardo on 02-09-2023 Calcium [Mass/Vol] 9.2 mg/dL 8.5-10.1 [facility] Serum or plasma creatinine m easurement (mass/volume)Ordered By: Avani Eduardo on 02-09-2023 Creatinine [Mass/Vol] 0.65 mg/dL 0.70-1.30 [facility] Comment on above: The validity of the calculated GFR & GFRAA in patients over 70 years has not been determined. Clinical correlation is essential. Serum or plasma urea nitroge n measurement (mass/volume)Ordered By: Avani Eduardo on 02-09-2023 Urea nitrogen [Mass/Vol] 14 mg/dL 7-18 [facility] Thin prep Papanicolaou smear with manual screeningOrdered By: Avani Eduardo on 02-09-2023 Thin prep Papanicolaou smear with manual screening 6 5-15 [facility] Basophil percentageOrdered B y: [facility] on 02-05-2023 Ammonia (P) [Moles/Vol] 31.0 umol/L [facility] No Panel InformationOrdered By: [facility] on 02-05-2023 Levetiracetam (Keppra) Level 33.4 ug/mL 10.0-40.0 [facility] Comment on above: Performed at: [address] [id number] Director: Jess Bess MD, Phone: [phone] Valproic Acid (Depakene) Level 81 ug/mL 50-100 [facility] Absolute lymphocyte countOrd ered By: Dr. Wilder on 01-18-2023 Lymphocytes Auto (Unsp spec) [#/Vol] 2.09 10*3/uL 0.83-4.51 [facility] Basophil percentageOrdered B y: Dr. Wilder on 01-18-2023 Ammonia (P) [Moles/Vol] 73.0 umol/L [facility] Basophils/100 WBC (Bld) 0.7 % 0-1 [facility] Bilirubin [Mass/Vol] 0.20 mg/dL 0.20-1.00 [facility] Comment on above: For patients on eltr ombopag therapy, use of Dimension Comerio TBIL is not recommended. Chloride [Moles/Vol] 110 mmol/L 98-107 [facility] Eosinophils/100 WBC (Bld) 1.7 % 0-5 [facility] Glucose [Mass/Vol] 102 mg/dL 74-106 [facility] Comment on above: Fasting Glucose resu lt from 100 to 125 mg/dL suggests IMPAIRED HOMEOSTASIS per A.D.A. criteria. Neutrophils (Bld) [#/Vol] 2.4 10*3/uL 2.0-7.7 [facility] Neutrophils/100 WBC (Bld) 44.0 % 47-70 [facility] Potassium [Moles/Vol] 4.0 mmol/L 3.5-5.1 [facility] Protein [Mass/Vol] 4.5 g/dL 6.4-8.2 [facility] Sodium [Moles/Vol] 142 mmol/L 136-145 [facility] WBC (Bld) [#/Vol] 5.4 10*3/uL 4.4-11.0 [facility] Blood erythrocytes count (nu mber/volume)Ordered By: Dr. Wilder on 01-18-2023 RBC (Bld) [#/Vol] 2.97 10*6/uL 4.6-6.2 [facility] Blood hemoglobin measurement (mass/volume)Ordered By: Dr. Wilder on 01-18-2023 Hemoglobin (Bld) [Mass/Vol] 9.9 g/dL 13.0-16.5 [facility] Blood lymphocytes/100 leukoc ytesOrdered By: Dr. Wilder on 01-18-2023 Lymphocytes/100 WBC (Bld) 38.8 % 19-41 [facility] Blood monocytes/100 leukocyt esOrdered By: Dr. Wilder on 01-18-2023 Monocytes/100 WBC (Bld) 13.7 % 0-10 [facility] Blood platelet mean volumeOr dered By: Dr. Wilder on 01-18-2023 Platelet mean volume (Bld) [Entitic vol] 8.7 fL 6.2-12.0 [facility] Determination of erythrocyte mean corpuscular volume (MCV)Ordered By: Dr. Wilder on 01-18-2023 MCV (RBC) [Entitic vol] 104.7 fL 80-94 [facility] Hematocrit Auto (Bld) [Volum e fraction]Ordered By: Dr. Wilder on 01-18-2023 Hematocrit (Bld) [Volume fraction] 31.1 % 40-54 [facility] Laboratory - Chemistry and C hemistry - challengeOrdered By: Dr. Wilder on 01-18-2023 ALP [Catalytic activity/Vol] 38 U/L 45-117 [facility] ALT [Catalytic activity/Vol] 10 U/L 16-61 [facility] CO2 [Moles/Vol] 29.0 mmol/L 21.0-32.0 [facility] Globulin (S) [Mass/Vol] 2.4 g/dL 2.2-4.2 [facility] Urea nitrogen/Creatinine [Mass ratio] 30.9 mg/mg 10-20 [facility] Laboratory - Hematology and Cell countsOrdered By: Dr. Wilder on 01-18-2023 Erythrocyte distribution width (RBC) [Entitic vol] 52.2 fL 35.1-43.9 [facility] Erythrocyte distribution width (RBC) [Ratio] 13.4 % 11.6-14.6 [facility] Immature granulocytes/100 WBC (Bld) 1.100 % 0.0-0.9 [facility] Comment on above: IG% - Immature Granu locytes (promyelocytes, myelocytes and metamyelocytes) > 1% indicates that a LEFT SHIFT is Present. MCH (RBC) [Entitic mass] 33.3 pg 27.0-32.0 [facility] Nucleated RBC/100 WBC (Bld) [Ratio] 0 % 0-5 [facility] MCHC Auto (RBC) [Mass/Vol]Or dered By: Dr. Wilder on 01-18-2023 MCHC (RBC) [Mass/Vol] 31.8 g/dL 32-36 [facility] No Panel InformationOrdered By: Dr. Wilder on 01-18-2023 Estimated Creatinine Clearance Calc 52.95 ml/min [facility] Estimated GFR (MDRD) Amer 217 mL/min >60 [facility] Comment on above: GFR Calc Estimated GFR (MDRD) Non-Af Amer 179 mL/min >60 [facility] Comment on above: Non- GFR Calc Platelets bldOrdered By: Dr. Wilder on 01-18-2023 Platelets (Bld) [#/Vol] 137 10*3/uL 150-450 [facility] Serum or plasma albumin minda urement (mass/volume)Ordered By: Dr. Wilder on 01-18-2023 Albumin [Mass/Vol] 2.1 g/dL 3.2-5.0 [facility] Serum or plasma albumin/glob ulin mass ratioOrdered By: Dr. Wilder on 01-18-2023 Albumin/Globulin [Mass ratio] 0.9 {ratio} 0.9-2.4 [facility] Serum or plasma calcium minda urement (mass/volume)Ordered By: Dr. Wilder on 01-18-2023 Calcium [Mass/Vol] 8.5 mg/dL 8.5-10.1 [facility] Serum or plasma creatinine m easurement (mass/volume)Ordered By: Dr. Wilder on 01-18-2023 Creatinine [Mass/Vol] 0.48 mg/dL 0.70-1.30 [facility] Comment on above: The validity of the calculated GFR & GFRAA in patients over 70 years has not been determined. Clinical correlation is essential. Serum or plasma urea nitroge n measurement (mass/volume)Ordered By: Dr. Wilder on 01-18-2023 Urea nitrogen [Mass/Vol] 15 mg/dL 7-18 [facility] Thin prep Papanicolaou smear with manual screeningOrdered By: Dr. Wilder on 01-18-2023 Thin prep Papanicolaou smear with manual screening 14 U/L 15-37 [facility] Thin prep Papanicolaou smear with manual screening 3 5-15 [facility] Assessment of wrist artery p atency prior to arterial punctureOrdered By: Dr. Wilder on 01-16-2023 Arterial patency Wrist artery --pre arterial puncture Positive [facility] Base excessOrdered By: Dr. Brodie arce on 01-16-2023 Base excess Calc (BldV) [Moles/Vol] 7 mmol/L -2-2 [facility] Basophil percentageOrdered B y: Dr. Wilder on 01-16-2023 Basophil percentage 31.9 mmol/L 22-26 [facility] Basophils/100 WBC (Bld) 94 % 95-99 [facility] CO2 (BldA) [Partial pressure ]Ordered By: Dr. Wilder on 01-16-2023 CO2 (Bld) [Partial pressure] 49.8 mm[Hg] 35-45 [facility] Laboratory - Chemistry and C hemistry - challengeOrdered By: Dr. Wilder on 01-16-2023 Natriuretic peptide B (Bld) [Mass/Vol] 15.2 pg/mL 0-100 [facility] No Panel InformationOrdered By: Dr. Wilder on 01-16-2023 Valproic Acid (Depakene) Level 91 ug/mL 50-100 [facility] Blood Gas Oxygen Percent 21 [facility] Blood Gas Sample Site R Radial [facility] Blood Gas Specimen Type ART [facility] Blood Gas Total CO[facility] Room Air [facility] Oxygen (BldA) [Partial press ure]Ordered By: Dr. Wilder on 01-16-2023 Oxygen (Bld) [Partial pressure] 70 mmHG 75-100 [facility] pH measurementOrdered By: Dr Shanthi Wilder on 01-16-2023 pH (Unsp spec) 7.42 [pH] 7.35-7.45 [facility] Absolute lymphocyte countOrd ered By: Dr. Malik on 01-10-2023 Lymphocytes Auto (Unsp spec) [#/Vol] 2.65 10*3/uL 0.83-4.51 [facility] Basophil percentageOrdered B y: Dr. Malik on 01-10-2023 Basophil percentage 0 SEEN /hpf 0-5 [facility] Basophils/100 WBC (Bld) 0.8 % 0-1 [facility] Chloride [Moles/Vol] 105 mmol/L 98-107 [facility] Eosinophils/100 WBC (Bld) 1.7 % 0-5 [facility] Glucose [Mass/Vol] 83 mg/dL 74-106 [facility] Neutrophils (Bld) [#/Vol] 5.6 10*3/uL 2.0-7.7 [facility] Neutrophils/100 WBC (Bld) 53.9 % 47-70 [facility] Potassium [Moles/Vol] 4.3 mmol/L 3.5-5.1 [facility] Sodium [Moles/Vol] 139 mmol/L 136-145 [facility] WBC (Bld) [#/Vol] 10.4 10*3/uL 4.4-11.0 [facility] Bilirubin Test strip Ql (U)O rdered By: Dr. Malik on 01-10-2023 Bilirubin Ql (U) Negative Negative [facility] Blood erythrocytes count (nu mber/volume)Ordered By: Dr. Malik on 01-10-2023 RBC (Bld) [#/Vol] 3.68 10*6/uL 4.6-6.2 [facility] Blood hemoglobin measurement (mass/volume)Ordered By: Dr. Malik on 01-10-2023 Hemoglobin (Bld) [Mass/Vol] 12.3 g/dL 13.0-16.5 [facility] Blood lymphocytes/100 leukoc ytesOrdered By: Dr. Malik on 01-10-2023 Lymphocytes/100 WBC (Bld) 25.6 % 19-41 [facility] Blood monocytes/100 leukocyt esOrdered By: Dr. Malik on 01-10-2023 Monocytes/100 WBC (Bld) 16.6 % 0-10 [facility] Blood platelet mean volumeOr dered By: Dr. Malik on 01-10-2023 Platelet mean volume (Bld) [Entitic vol] 8.4 fL 6.2-12.0 [facility] Determination of erythrocyte mean corpuscular volume (MCV)Ordered By: Dr. Malik on 01-10-2023 MCV (RBC) [Entitic vol] 102.2 fL 80-94 [facility] Hematocrit Auto (Bld) [Volum e fraction]Ordered By: Dr. Malik on 01-10-2023 Hematocrit (Bld) [Volume fraction] 37.6 % 40-54 [facility] Hyaline casts LM.LPF (Urine sed) [#/Area]Ordered By: Dr. Malik on 01-10-2023 Hyaline casts (Urine sed) [#/Area] 0 /[LPF] 0-5 [facility] Ketones Test strip Ql (U)Ord ered By: Dr. Malik on 01-10-2023 Ketones Ql (U) 5 mg/dl Negative [facility] Laboratory - Chemistry and C hemistry - challengeOrdered By: Dr. Malik on 01-10-2023 CO2 [Moles/Vol] 29.0 mmol/L 21.0-32.0 [facility] Urea nitrogen/Creatinine [Mass ratio] 15.0 mg/mg 10-20 [facility] Laboratory - Hematology and Cell countsOrdered By: Dr. Malik on 01-10-2023 Erythrocyte distribution width (RBC) [Entitic vol] 49.0 fL 35.1-43.9 [facility] Erythrocyte distribution width (RBC) [Ratio] 13.1 % 11.6-14.6 [facility] Immature granulocytes/100 WBC (Bld) 1.400 % 0.0-0.9 [facility] Comment on above: IG% - Immature Granu locytes (promyelocytes, myelocytes and metamyelocytes) > 1% indicates that a LEFT SHIFT is Present. MCH (RBC) [Entitic mass] 33.4 pg 27.0-32.0 [facility] Nucleated RBC/100 WBC (Bld) [Ratio] 0 % 0-5 [facility] MCHC Auto (RBC) [Mass/Vol]Or dered By: Dr. Malik on 01-10-2023 MCHC (RBC) [Mass/Vol] 32.7 g/dL 32-36 [facility] Macrocytes detectionOrdered By: Dr. Malik on 01-10-2023 Macrocytes Ql (Bld) 2+ [facility] Mucus LM Ql (Urine sed)Order ed By: Dr. Malik on 01-10-2023 Mucus Ql (Urine sed) 0 SEEN /hpf [facility] Nitrite Test strip Ql (U)Ord ered By: Dr. Malik on 01-10-2023 Nitrite Ql (U) Negative Negative [facility] No Panel InformationOrdered By: Dr. Malik on 01-10-2023 Valproic Acid (Depakene) Level 80 ug/mL 50-100 [facility] Estimated Creatinine Clearance Calc 66.19 ml/min [facility] Estimated GFR (MDRD) Amer 122 mL/min >60 [facility] Comment on above: GFR Calc Estimated GFR (MDRD) Non-Af Amer 101 mL/min >60 [facility] Comment on above: Non- GFR Calc Troponin I High Sensitivity 6 pg/mL 3.0-78.0 [facility] Comment on above: Please Note: New Janice t Units and Gender Specific Reference Ranges. For more information see Policy Stat Procedure [place] High Sensitivity Troponin (TNIH) and attachments. Platelets bldOrdered By: Dr. Malik on 01-10-2023 Platelets (Bld) [#/Vol] 168 10*3/uL 150-450 [facility] Protein Test strip Ql (U)Ord ered By: Dr. Malik on 01-10-2023 Protein Ql (U) 15 mg/dl Negative [facility] Serum or plasma calcium minda urement (mass/volume)Ordered By: Dr. Malik on 01-10-2023 Calcium [Mass/Vol] 9.0 mg/dL 8.5-10.1 [facility] Serum or plasma creatinine m easurement (mass/volume)Ordered By: Dr. Malik on 01-10-2023 Creatinine [Mass/Vol] 0.80 mg/dL 0.70-1.30 [facility] Comment on above: The validity of the calculated GFR & GFRAA in patients over 70 years has not been determined. Clinical correlation is essential. Serum or plasma urea nitroge n measurement (mass/volume)Ordered By: Dr. Malik on 01-10-2023 Urea nitrogen [Mass/Vol] 12 mg/dL 7-18 [facility] Squamous epithelial cells de tection in urine sediment by light microscopyOrdered By: Dr. Malik on 01-10-2023 Epithelial cells.squamous LM Ql (Urine sed) 0 SEEN /hpf 0-5 [facility] Thin prep Papanicolaou smear with manual screeningOrdered By: Dr. Malik on 01-10-2023 Thin prep Papanicolaou smear with manual screening 5 5-15 [facility] Urine blood detectionOrdered By: Dr. Malik on 01-10-2023 RBC Ql (U) 25 /ul Negative [facility] RBC Ql (U) 0 SEEN /hpf 0-5 [facility] Urine clarityOrdered By: Dr. Malik on 01-10-2023 Clarity (U) Clear Clear [facility] Urine color determinationOrd ered By: Dr. Malik on 01-10-2023 Color (U) Yellow Yellow [facility] Urine glucose detectionOrder ed By: Dr. Malik on 01-10-2023 Glucose Ql (U) Normal mg/dl Normal [facility] Urine leukocyte esterase det ection by dipstickOrdered By: Dr. Malik on 01-10-2023 Leukocyte esterase Test strip Ql (U) Negative Negative [facility] Urine pHOrdered By: Dr. Judd ne on 01-10-2023 pH (U) 6.0 [pH] 5.0 - 8.0 [facility] Urine sediment bacteria coun t by microscopy (number/high power field)Ordered By: Dr. Malik on 01-10-2023 Bacteria LM.HPF (Urine sed) [#/Area] 0 /[HPF] None Seen [facility] Urine specific gravity measu rementOrdered By: Dr. Malik on 01-10-2023 Specific gravity (U) [Rel density] 1.015 1.002-1.03 0 [facility] Urobilinogen Auto test strip Ql (U)Ordered By: Dr. Malik on 01-10-2023 Urobilinogen Ql (U) Normal mg/dl Normal [facility] Ammonia Plas-sCncon 01-10-20 23 Ammonia (P) [Moles/Vol] 35 umol/L Normal 16-60 [facility] Comment on above: Order Comment: Speci men Type: BLOOD SPECIMEN Ordering Facility: [facility] Address: [address] [place] [phone] Performed By: #### 1 6362-6 #### [facility] CLIA [id number] [address] [place] [address] OF [facility] CASE MANAGEMon 01-09-2023 CASE MANAGEM HNO ID: [id number] Author: ALYSSA Humphreys Service: ? Author Type: Film Processor Type: Care Mgt Progress Note Filed: 01/09/2023 2:41 PM Note Text: CARE MANAGEMENT DISCHARGE NOTE SERVICE DATE: 01/09/2023 SERVICE TIME: 2:31 PM LOS: 1 day Patient discharging back to [facility] in [place]. Patient to be picked up at 9pm. [...] 09, 2023 TIME: 2:31 PM PAGER/CONTACT #: [phone] [facility] 01-09-2023 [facility] HNO ID: [id number] Author: Lorene Ortiz MD Service: Hospital Medicine [...] Attending Provider: Lorene Ortiz MD Primary Service: [facility] Attending: Keron Dewey MD Consulting: Micheline Huber [...] HTN, and KYA He was admitted to [facility] 5 days prior due to [...] 30 tablet (more content not included)... Normal [facility] NURSING PROGon 01-09-2023 NURSING PROG HNO ID: [id number] Author: Anitah Burnette RN Service: Nursing Author Type: Registered Nurse Type: Nursing Progress Note Filed: 01/09/2023 12:24 PM Note Text: Patient being discharged back to [facility]. Patient agreeable. Updated and informed facility of patient's return. Normal [facility] Valproate SerPl-mCncon 01-09 Valproate [Mass/Vol] 80.8 ug/mL Normal 50.0-100.0 [facility] Comment on above: Order Comment: Speci men Type: BLOOD SPECIMEN Ordering Facility: [facility] Address: [place] [address] Result Comment: Refe rence ranges and high/low indicator flags are provided as general guidelines only. The treating physician must determine appropriate target levels/dosing based on the specific clinical situation. Performed By: #### 4 086-5 #### [facility] CLIA [id number] [address] ALLIED HEALTHon 01-08-2023 ALLIED HEALTH HNO ID: [id number] Author: RT Vivian(R) Service: Radiology Author Type: [...] Vivian(R) January 08, 2023 1:16 PM Normal [facility] CASE MGT INIT [facility] 2022 CASE MGT INIT [facility] HNO ID: [id number] Author: LAYNE Lozano Service: Social Work Author Type: Film Processor Type: Care Mgt Initial Assessment Filed: 01/08/2023 4:14 PM Note Text: CARE MANAGEMENT: ASSESSMENT AND DISCHARGE PLAN SERVICE DATE: January 08, 2023 SERVICE TIME: 3:39 PM PCP: Maddie Cantor DO Primary Contact: Extended Emergency Contact Information Primary Emergency Contact: Cha Cantor Mobile Relation: Sister Secondary Emergency Contact: Pj conti Mobile Relation: Relative Admission Status: Inpatient Insurance Provider: [facility] DUAL COMPLETE HMO POS SNP Discharge Planning requested by: Per Department Practice Potential Transition Plans Advance Directives Current Advance Directive: Health Care Power of Cooker Meal In Chart: Yes Up To Date and Valid: Yes Current Living Arrangements and Support Lives with: ([facility] Type of Residence: Assisted Living [...] Care Goal(s): to return to Assisted living Hob[place] of Choice Explained: [place] of Choice Given: Yes Level of Care Discussed: Home Care Are you interested in bedside delivery of your medications? No Discharge Planning Participant(s): Patient Patient/Family Comments: Caregiver Assessment: Caregiver is ready, willing and able to meet the patient's needs as recommended by the inter-professional team: Yes Name of Caregiver: in from [facility] Transport at Discharge: Transportation Arrangements: Amb[facility] Type of Service: BLS Non-emergency Is Patient Medicaid Pending?: No Was transportation financial coverage discussed with family?: No Urban Anthropologist Location: [facility] Care Management Responsibility: None Needs Prior to Discharge: Needs Prior to Discharge: Discharge Transportation;Home Care Order Post-Acute Discharge Plan: Met with pt who presents as lethargic. Is in from [facility] living in [place]. Plan is to return. SHORTHAND REPORTER ambulated with walker. PT and OT recommend home PT. Pt with no preference for home health agency. With pt's consent, contacted Mal[facility] PAGE for agency they use. Referral sent to [facility]. Will need transport back to [facility] w/c ambulette. Per , pt now with lumbar fx. Await return call from pt's COLLETTE - Drea ajy [phone] to update. SIGNATURE: LAYNE Lozano PATIENT NAME: Anjel Ross DATE: January 08, 2023 TIME: 3:39 PM CONTACT #: [phone] Normal [facility] CBC W Auto Differential pane l (Bld)on 01-08-2023 Basophils (Bld) [#/Vol] 0.05 10*3/uL Normal <0.11 [facility] Comment on above: Order Comment: Speci men Type: BLOOD SPECIMEN Ordering Facility: [facility] Address: [address] [place] [address] Performed By: #### 5 7021-8 #### [facility] CLIA [id number] [address] OF [facility] Basophils/100 WBC (Bld) 0.6 % Normal [facility] Comment on above: Order Comment: Speci men Type: BLOOD SPECIMEN Ordering Facility: [facility] Address: [address] [place] [address] Performed By: #### 5 7021-8 #### [facility] CLIA [id number] [address] STATES OF [facility] Differential cell count method Nom (Bld) Auto Normal [facility] Comment on above: Order Comment: Speci men Type: BLOOD SPECIMEN Ordering Facility: [facility] Address: [address] [place] [address] Performed By: #### 5 7021-8 #### [facility] CLIA [id number] [address] [place] Eosinophils (Bld) [#/Vol] 0.18 10*3/uL Normal <0.46 [facility] Comment on above: Order Comment: Speci men Type: BLOOD SPECIMEN Ordering Facility: [facility] Address: [address] [place] [address] Performed By: #### 5 7021-8 #### [facility] CLIA [id number] [address] OF [place] Eosinophils/100 WBC (Bld) 2.0 % Normal [facility] Comment on above: Order Comment: Speci men Type: BLOOD SPECIMEN Ordering Facility: [facility] Address: [address] [place] [address] Performed By: #### 5 7021-8 #### [facility] CLIA [id number] [address] OF [facility] Erythrocyte distribution width (RBC) [Ratio] 12.9 % Normal 11.5-15.0 [facility] Comment on above: Order Comment: Speci men Type: BLOOD SPECIMEN Ordering Facility: [facility] Address: [address] [place] [address] Performed By: #### 5 7021-8 #### [facility] CLIA [id number] [address] OF [place] Hematocrit (Bld) [Volume fraction] 40.2 % Normal 39.0-51.0 [facility] Comment on above: Order Comment: Speci men Type: BLOOD SPECIMEN Ordering Facility: [facility] Address: [address] [place] [address] Performed By: #### 5 7021-8 #### [facility] CLIA [id number] [address] OF [place] Hemoglobin (Bld) [Mass/Vol] 13.1 g/dL Normal 13.0-17.0 [facility] Comment on above: Order Comment: Speci men Type: BLOOD SPECIMEN Ordering Facility: [facility] Address: [address] [place] [address] Performed By: #### 5 7021-8 #### [facility] CLIA [id number] [address] OF [place] Immature granulocytes (Bld) [#/Vol] 0.10 10*3/uL High <0.10 [facility] Comment on above: Order Comment: Speci men Type: BLOOD SPECIMEN Ordering Facility: [facility] Address: [address] [place] [address] Performed By: #### 5 7021-8 #### [facility] CLIA [id number] [address] Immature granulocytes/100 WBC (Bld) 1.1 % Normal [facility] Comment on above: Order Comment: Speci men Type: BLOOD SPECIMEN Ordering Facility: [facility] Address: [address] [place] [address] Performed By: #### 5 7021-8 #### [facility] CLIA [id number] [address] OF [place] Lymphocytes (Bld) [#/Vol] 2.81 10*3/uL Normal 1.00-4.00 [facility] Comment on above: Order Comment: Speci men Type: BLOOD SPECIMEN Ordering Facility: [facility] Address: [address] [place] [address] Performed By: #### 5 7021-8 #### [facility] CLIA [id number] [address] [place] [address] Lymphocytes/100 WBC (Bld) 31.6 % Normal [facility] Comment on above: Order Comment: Speci men Type: BLOOD SPECIMEN Ordering Facility: [facility] Address: [address] [place] [address] Performed By: #### 5 7021-8 #### [facility] CLIA [id number] [address] [place] [address] STATES OF [facility] MCH (RBC) [Entitic mass] 32.7 pg Normal 26.0-34.0 [facility] Comment on above: Order Comment: Speci men Type: BLOOD SPECIMEN Ordering Facility: [facility] Address: [address] [place] [address] Performed By: #### 5 7021-8 #### [facility] CLIA [id number] [address] [place] [address] MCHC (RBC) [Mass/Vol] 32.6 g/dL Normal 30.5-36.0 [facility] Comment on above: Order Comment: Speci men Type: BLOOD SPECIMEN Ordering Facility: [facility] Address: [address] [place] [address] Performed By: #### 5 7021-8 #### [facility] CLIA [id number] [address] [place] MCV (RBC) [Entitic vol] 100.2 fL High 80.0-100.0 [facility] Comment on above: Order Comment: Speci men Type: BLOOD SPECIMEN Ordering Facility: [facility] Address: [address] [address] Performed By: #### 5 7021-8 #### [facility] CLIA [id number] [address] [place] Monocytes (Bld) [#/Vol] 1.06 10*3/uL High <0.87 [facility] Comment on above: Order Comment: Speci men Type: BLOOD SPECIMEN Ordering Facility: [facility] Address: [address] [place] [address] Performed By: #### 5 7021-8 #### [facility] CLIA [id number] [address] Monocytes/100 WBC (Bld) 11.9 % Normal [facility] Comment on above: Order Comment: Speci men Type: BLOOD SPECIMEN Ordering Facility: [facility] Address: [address] [place] [address] Performed By: #### 5 7021-8 #### [facility] CLIA [id number] [address] [place] Neutrophils (Bld) [#/Vol] 4.70 10*3/uL Normal 1.45-7.50 [facility] Comment on above: Order Comment: Speci men Type: BLOOD SPECIMEN Ordering Facility: [facility] Address: [address] [place] [address] Performed By: #### 5 7021-8 #### [facility] CLIA [id number] [address] [place] Neutrophils/100 WBC (Bld) 52.8 % Normal [facility] Comment on above: Order Comment: Speci men Type: BLOOD SPECIMEN Ordering Facility: [facility] Address: [address] [address] Performed By: #### 5 7021-8 #### [facility] CLIA [id number] [address] [place] Nucleated RBC (Bld) [#/Vol] 10*3/uL Normal <0.01 [facility] Comment on above: Order Comment: Speci men Type: BLOOD SPECIMEN Ordering Facility: [facility] Address: [address] [address] Performed By: #### 5 7021-8 #### [facility] CLIA [id number] [address] Nucleated RBC/100 WBC (Bld) [Ratio] 0.0 /100 WBC Normal [facility] Comment on above: Order Comment: Speci men Type: BLOOD SPECIMEN Ordering Facility: [facility] Address: [address] [address] Performed By: #### 5 7021-8 #### [facility] CLIA [id number] [address] [place] Platelet mean volume (Bld) [Entitic vol] 8.5 fL Low 9.0-12.7 [facility] Comment on above: Order Comment: Speci men Type: BLOOD SPECIMEN Ordering Facility: [facility] Address: [address] [address] Performed By: #### 5 7021-8 #### [facility] CLIA [id number] [address] [place] Platelets (Bld) [#/Vol] 160 10*3/uL Normal 150-400 [facility] Comment on above: Order Comment: Speci men Type: BLOOD SPECIMEN Ordering Facility: [facility] Address: [address] [address] Performed By: #### 5 7021-8 #### [facility] CLIA [id number] [address] [place] RBC (Bld) [#/Vol] 4.01 10*6/uL Low 4.20-6.00 [facility] Comment on above: Order Comment: Devendra krishnamurthy Type: BLOOD SPECIMEN Ordering Facility: [facility] Address: [address] [place] [address] Performed By: #### 5 7021-8 #### [facility] CLIA [id number] [address] WBC (Bld) [#/Vol] 8.90 10*3/uL Normal 3.70-11.00 [facility] Comment on above: Order Comment: Devendra krishnamurthy Type: BLOOD SPECIMEN Ordering Facility: [facility] Address: [address] [place] [address] Performed By: #### 5 7021-8 #### [facility] CLIA [id number] [address] CONSULTon 01-08-2023 CONSULT HNO ID: [id number] Author: Mann Waggoner APRN.SILVER SERVICE WAITER Service: Neurosurgery Author Type: Nurse Practitioner Type: [...] a 72 year old male transferred from [facility] with concerns for NPH.The patient currently [...] W/COLLJ SPEC WHEN PFRMD 03/25/2016 Colonoscopy outpt [facility] COLSC FLX W/REMOVAL LESION BY HOT [...] 40 mg (more content not included)... Normal [facility] CONSULT HNO ID: [id number] Author: Chino Gerber DO Service: Neurology General [...] hypertension, KYA, who was initially admitted to [facility] 5 days ago with generalized weakness, unsteady gait and fall without focal deficits. During that hospital stay CT brain was concerning for possible NPH. Subsequently, telemetry neurologist recommended patient to be transferred for neurology consult and LP and MRI brain/spine with and without contrast. Patient admitted to [facility] on 01/08 with differential diagnosis of [...] W/COLLJ SPEC WHEN PFRMD 03/25/2016 Colonoscopy outpt [facility] COLSC FLX W/REMOVAL LESION BY HOT [...] mg tablet (more content not included)... Normal [facility] CT LUMBAR SPINE WO IVCONon 0 01-08-2023 [...] are 5 lumbar-type vertebrae. Anatomic variant: None. Loss Mitigation Specialist (topogram) images: Right hip arthroplasty. Alignment: S-shaped [...] and assume there are 5 lumbar-type vertebrae. Tank House Operator: ELVIS Transcribe Date/Time: Jan 09 2023 9:56A Dictated by : NGUYỄN GILBERT DO This examination was interpreted and the report reviewed and electronically signed by: NGUYỄN GILBERT DO on Jan 09 2023 10:03AM EST [id number] Normal [facility] Comprehensive metabolic 2000 panelon 01-08-2023 Albumin [Mass/Vol] 3.2 g/dL Low 3.9-4.9 [facility] Comment on above: Order Comment: Devendra krishnamurthy Type: BLOOD SPECIMEN Ordering Facility: [facility] Address: [address] [place] [address] Performed By: #### 2 4323-8, , 3 #### [facility] CLIA [id number] [address] [place] ALP [Catalytic activity/Vol] 58 U/L Normal 38-113 [facility] Comment on above: Order Comment: Devendra krishnamurthy Type: BLOOD SPECIMEN Ordering Facility: [facility] Address: [address] [place] [address] Performed By: #### 2 4323-8, , 3 #### [facility] CLIA [id number] [address] [place] ALT With P-5'-P [Catalytic activity/Vol] 7 U/L Low 10-54 [facility] Comment on above: Order Comment: Symonei yessy Type: BLOOD SPECIMEN Ordering Facility: [facility] Address: [address] [place] [address] Performed By: #### 2 4323-8, , 6-3 #### [facility] CLIA [id number] [address] [place] Anion gap [Moles/Vol] 10 mmol/L Normal 9-18 [facility] Comment on above: Order Comment: Speci men Type: BLOOD SPECIMEN Ordering Facility: [facility] Address: [address] [place] [address] Performed By: #### 2 4323-8, , 3015-3 #### [facility] CLIA [id number] [address] [place] AST With P-5'-P [Catalytic activity/Vol] 15 U/L Normal 14-40 [facility] Comment on above: Order Comment: Speci men Type: BLOOD SPECIMEN Ordering Facility: [facility] Address: [address] [place] [address] Performed By: #### 2 4323-8, , 3 #### [facility] CLIA [id number] [address] [place] Bilirubin [Mass/Vol] 0.3 mg/dL Normal 0.2-1.3 [facility] Comment on above: Order Comment: Speci men Type: BLOOD SPECIMEN Ordering Facility: [facility] Address: [address] [place] [address] Performed By: #### 2 4322-8, , 3 #### [facility] CLIA [id number] [address] [place] Calcium [Mass/Vol] 9.4 mg/dL Normal 8.5-10.2 [facility] Comment on above: Order Comment: Speci men Type: BLOOD SPECIMEN Ordering Facility: [facility] Address: [address] [place] [address] Performed By: #### 2 432-8, , 3 #### [facility] CLIA [id number] 1 [place] [address] [place] Chloride [Moles/Vol] 104 mmol/L Normal 97-105 [facility] Comment on above: Order Comment: Speci men Type: BLOOD SPECIMEN Ordering Facility: [facility] Address: [address] Performed By: #### 2 4323-8, , 3 #### [facility] CLIA [id number] [address] [place] CO2 [Moles/Vol] 28 mmol/L Normal 22-30 [facility] Comment on above: Order Comment: Speci men Type: BLOOD SPECIMEN Ordering Facility: [facility] Address: [address] [place] [address] Performed By: #### 2 4323-8, , 3015-12 #### [facility] CLIA [id number] [address] [place] Creatinine [Mass/Vol] 0.65 mg/dL Low 0.73-1.22 [facility] Comment on above: Order Comment: Speci men Type: BLOOD SPECIMEN Ordering Facility: [facility] Address: [address] [place] [address] Performed By: #### 2 432-8, , 3 #### [facility] CLIA [id number] [address] OF [facility] ESTIMATED GLOMERULAR FILTRATION RATE 99 mL/min/1.73m??? Normal >=60 [facility] Comment on above: Order Comment: Speci men Type: BLOOD SPECIMEN Ordering Facility: [facility] Address: [address] [place] [address] Result Comment: Narda mated Glomerular Filtration Rate [...] GFR. Performed By: #### 2 4323-8, , 3015-3 #### [facility] CLIA [id number] 1 [address] [address] [place] Glucose [Mass/Vol] 90 mg/dL Normal 74-99 [facility] Comment on above: Order Comment: Specesteban krishnamurthy Type: BLOOD SPECIMEN Ordering Facility: [facility] Address: [address] [place] [address] Result Comment: The [place] [employer] (ADA) provides guidance for cutoff [...] Standards of Medical Care in Diabetes 2016, [place] [employer]. Diabetes Care. 2016.39(Suppl 1). Performed By: #### 2 4323-8, , 3015-3 #### [facility] CLIA [id number] 1 [place] [address] [place] Potassium [Moles/Vol] 3.8 mmol/L Normal 3.7-5.1 [facility] Comment on above: Order Comment: Devendra krishnamurthy Type: BLOOD SPECIMEN Ordering Facility: [facility] Address: [place] [address] Performed By: #### 2 4323-8, , 3 #### [facility] CLIA [id number] 1 [place] [address] [place] Protein [Mass/Vol] 5.6 g/dL Low 6.3-8.0 [facility] Comment on above: Order Comment: Devendra krishnamurthy Type: BLOOD SPECIMEN Ordering Facility: [facility] Address: [address] [place] [address] Performed By: #### 2 4323-8, , 3015-3 #### [facility] CLIA [id number] 1 [place] [address] [place] Sodium [Moles/Vol] 142 mmol/L Normal 136-144 [facility] Comment on above: Order Comment: Speci men Type: BLOOD SPECIMEN Ordering Facility: [facility] Address: [address] [place] [id number] Performed By: #### 2 4323-8, 71387-4, 3015-3 #### [facility] CLIA [id number] [address] Urea nitrogen [Mass/Vol] 11 mg/dL Normal 9-24 [facility] Comment on above: Order Comment: Speci men Type: BLOOD SPECIMEN Ordering Facility: [facility] Address: [address] [phone] Performed By: #### 2 4323-8, , 3 #### [facility] CLIA [id number] [address] STATES OF [facility] ECG COMPLETEon 01-08-2023 ECG COMPLETE Ventricular Rate : 8 7 BPM Atrial Rate : 87 BPM P-R Interval : 144 ms QRS Duration : 84 ms Q-T Interval : 352 ms QTC Calculation(Bazett) : 423 ms Calculated P [place] : 58 degrees Calculated R [place] : -45 degrees Calculated T [place] : 17 degrees NORMAL SINUS RHYTHM LEFT [...] INFERIOR LEADS Confirmed by MD JOAQUIN VINAY ([id number]) on 01/08/2023 3:41:29 PM NAME : ANJEL ROSS PID : [id number] : 1950 Gender : Male Race : ORD : [id number] Procedure Date : Jan 08 2023 03:21:39 [...] WAVES IN INFERIOR LEADS Confirmed by MD JOQAUIN VINAY ([id number]) on 01/08/2023 3:41:29 PM Test Reason : Arrhythmia Location : 91 : 9100 9101 Overread By : MD JOAQUIN VINAY Edited By : MD JOAQUIN VINAY Referred By : HILARIO MALIK Acquired by : LAKSHMI MOREAU [facility] HISTORY PHYSICALon 3 HISTORY PHYSICAL HNO ID: [id number] Author: Keron Dewey MD Service: General Internal Medicine Author Type: Physician Type: HANDP Filed: 01/08/2023 6:34 AM Note Text: DEPARTMENT OF HOSPITAL MEDICINE HISTORY AND PHYSICAL EXAM SERVICE DATE: 01/08/2023 SERVICE TIME: 1:26 AM Primary Care Physician: Maddie Cantor, DO NIGHT AND WEEKEND COVERAGE: From 7am - 7pm, please call Sound After 7pm, please call cross cover pager #[phone] Subjective CHIEF COMPLAINT: Unsteady gait HPI: This is a 72 year old male F resident with hx of anemia, CAD, hypothyroidism, HL, colon cancer, seizures, HTN, and KYA, who was admitted to [facility] 5 days ago with generalized weakness and [...] W/COLLJ SPEC WHEN PFRMD 03/25/2016 Colonoscopy outpt [facility] COLSC FLX W/REMOVAL LESION BY HOT [...] 1 tablet by mouth daily at bedtime. Iqmkg-4-MYZ-EPA-Fish Oil 1,000 mg (120 mg-180 mg) cap [...] No Y (more content not included)... Normal [facility] Magnesium SerPl-mCncon 01-08 Magnesium [Mass/Vol] 1.7 mg/dL Normal 1.7-2.3 [facility] Comment on above: Order Comment: Speci men Type: BLOOD SPECIMEN Ordering Facility: [facility] Address: [address] [place], [place] [phone] Performed By: #### 2 4323-8, 56234-7, 3016-3 #### [facility] CLIA [id number] [address] [place] [address] [place] NURSING PROGon 01-08-2023 NURSING PROG HNO ID: [id number] Author: Doug Suárez RN Service: Nursing Author Type: Registered Nurse Type: Nursing Progress Note Filed: 01/08/2023 5:29 PM Note Text: 01/08/2023 Nursing note: Notified Neurology AND attending of multiple attempts of obtaining blood (ammonia level) Multiple RN attempted This note was completed by: Doug Suárez RN Normal [facility] THERAPY NTon 01-08-2023 THERAPY NT HNO ID: [id number] Author: Almaz Falcon PT Service: Physical Therapy Author Type: Physical Therapist Type: Therapy (PT/OT/Speech/Resp) Filed: 01/08/2023 4:10 PM Note Text: Physical Therapy Evaluation SERVICE DATE: 01/08/2023 SERVICE TIME: 1445 to 1502 ROOM: [place] [address] Recommended Discharge Disposition: Home PT Recommended Discharge [...] Risk Current Hospital Course: Originally admitted at [facility] with general weakness and unsteady gait after [...] Narrow Base of Support, Step length decreased [facility]: 7: Walk 25 feet or more Learning/Educational Needs: Discharge Plan, Functional Activities/Mobility, Plan of Care, Rehabilitation Techniques and Procedures, Safety Goals for Plan of Care: Patient/Caregiver Goals: Go Home Transfer Supine to/from Sit with: Stand By Assistance Transfer Sit to/from Stand with: Stand By Assistance Ambulate with: Stand By Assistance Distance: 50'x2 Device: Wheeled Walker Goal: Pt will complete x5 repeated [id number] transfers with SBA Rehab Potential: Good Patient [...] activity as (more content not included)... Normal [facility] THERAPY NT HNO ID: [id number] Author: JODIE Mixon/L Service: Occupational Therapy Author Type: Occupational Therapist Type: Therapy (PT/OT/Speech/Resp) Filed: 01/08/2023 11:27 AM Note Text: Occupational Therapy Evaluation SERVICE DATE: 01/08/2023 SERVICE TIME: 839 to 08 ROOM: [id number] Recommended Discharge Disposition: Home OT Recommended Discharge [...] with: Patient (more content not included)... Normal [facility] TSH SerPl-aCncon 01-08-2023 TSH Qn 9.720 m[IU]/L High 0.270-4.20 0 [facility] Comment on above: Order Comment: Speci men Type: BLOOD SPECIMEN Ordering Facility: [facility] Address: [address] [place] [id number] Performed By: #### 2 4323-8, 73608-0, 3016-3 #### [facility] CLIA [id number] 1 [place] [address] [place] Valproate SerPl-mCncon 01-08 Valproate [Mass/Vol] 72.9 ug/mL Normal 50.0-100.0 [facility] Comment on above: Order Comment: Speci men Type: BLOOD SPECIMEN Ordering Facility: [facility] Address: [address], [place] [address] Result Comment: Refe rence ranges and high/low indicator flags are provided as general guidelines only. The treating physician must determine appropriate target levels/dosing based on the specific clinical situation. Performed By: #### 4 086-5 #### [facility] CLIA [id number] [address] [place] XR LUMBAR 3V AP/LAT/L5-S1on [...] Multilevel degenerative disc disease and facet arthropathy. Tank House Operator: ELVIS Transcribe Date/Time: Jan 08 2023 2:00P Dictated by : REJI ARNETT MD This examination was interpreted and the report reviewed and electronically signed by: REJI ARNETT MD on Jan 08 2023 2:05PM EST [id number] Normal [facility] XR THORACIC 2V AP/LATon 04-0 XR THORACIC [...] report of the accompanying lumbar spine films. Tank House Operator: ELVIS Transcribe Date/Time: Jan 08 2023 2:05P Dictated by : REJI ARNETT MD This examination was interpreted and the report reviewed and electronically signed by: REJI ARNETT MD on Jan 08 2023 2:07PM EST [id number] Normal [facility] Absolute lymphocyte countOrd ered By: Dr. Cannon on 01-07-2023 Lymphocytes Auto (Unsp spec) [#/Vol] 2.20 10*3/uL 0.83-4.51 [facility] Basophil percentageOrdered B y: Dr. Cannon on 01-07-2023 Basophils/100 WBC (Bld) 0.6 % 0-1 [facility] Chloride [Moles/Vol] 110 mmol/L 98-107 [facility] Eosinophils/100 WBC (Bld) 2.6 % 0-5 [facility] Glucose [Mass/Vol] 115 mg/dL 74-106 [facility] Comment on above: Fasting Glucose resu lt from 100 to 125 mg/dL suggests IMPAIRED HOMEOSTASIS per A.D.A. criteria. Neutrophils (Bld) [#/Vol] 3.0 10*3/uL 2.0-7.7 [facility] Neutrophils/100 WBC (Bld) 46.7 % 47-70 [facility] Potassium [Moles/Vol] 3.9 mmol/L 3.5-5.1 [facility] Sodium [Moles/Vol] 140 mmol/L 136-145 [facility] WBC (Bld) [#/Vol] 6.5 10*3/uL 4.4-11.0 [facility] Blood erythrocytes count (nu mber/volume)Ordered By: Dr. Cannon on 01-07-2023 RBC (Bld) [#/Vol] 3.61 10*6/uL 4.6-6.2 [facility] Blood hemoglobin measurement (mass/volume)Ordered By: Dr. Cannon on 01-07-2023 Hemoglobin (Bld) [Mass/Vol] 12.1 g/dL 13.0-16.5 [facility] Blood lymphocytes/100 leukoc ytesOrdered By: Dr. Cannon on 01-07-2023 Lymphocytes/100 WBC (Bld) 33.8 % 19-41 [facility] Blood monocytes/100 leukocyt esOrdered By: Dr. Cannon on 01-07-2023 Monocytes/100 WBC (Bld) 15.2 % 0-10 [facility] Blood platelet mean volumeOr dered By: Dr. Cannon on 01-07-2023 Platelet mean volume (Bld) [Entitic vol] 8.9 fL 6.2-12.0 [facility] Culture, urineOrdered By: Dr Shanthi Malik on 01-07-2023 Bacteria identified Cx Nom (U) Culture exhibits no growth. [facility] Determination of erythrocyte mean corpuscular volume (MCV)Ordered By: Dr. Cannon on 01-07-2023 MCV (RBC) [Entitic vol] 102.5 fL 80-94 [facility] Hematocrit Auto (Bld) [Volum e fraction]Ordered By: Dr. Cannon on 01-07-2023 Hematocrit (Bld) [Volume fraction] 37.0 % 40-54 [facility] Laboratory - Chemistry and C hemistry - challengeOrdered By: Dr. Cannon on 01-07-2023 CO2 [Moles/Vol] 24.0 mmol/L 21.0-32.0 [facility] Urea nitrogen/Creatinine [Mass ratio] 27.1 mg/mg 10-20 [facility] Laboratory - Hematology and Cell countsOrdered By: Dr. Cannon on 01-07-2023 Erythrocyte distribution width (RBC) [Entitic vol] 47.9 fL 35.1-43.9 [facility] Erythrocyte distribution width (RBC) [Ratio] 12.8 % 11.6-14.6 [facility] Immature granulocytes/100 WBC (Bld) 1.100 % 0.0-0.9 [facility] Comment on above: IG% - Immature Granu locytes (promyelocytes, myelocytes and metamyelocytes) > 1% indicates that a LEFT SHIFT is Present. MCH (RBC) [Entitic mass] 33.5 pg 27.0-32.0 [facility] Nucleated RBC/100 WBC (Bld) [Ratio] 0 % 0-5 [facility] MCHC Auto (RBC) [Mass/Vol]Or dered By: Dr. Cannon on 01-07-2023 MCHC (RBC) [Mass/Vol] 32.7 g/dL 32-36 [facility] No Panel InformationOrdered By: Dr. Cannon on 01-07-2023 Estimated Creatinine Clearance Calc 52.95 ml/min [facility] Estimated GFR (MDRD) Amer 242 mL/min >60 [facility] Comment on above: GFR Calc Estimated GFR (MDRD) Non-Af Amer 200 mL/min >60 [facility] Comment on above: Non- GFR Calc Platelets bldOrdered By: Dr. Cannon on 01-07-2023 Platelets (Bld) [#/Vol] 132 10*3/uL 150-450 [facility] Serum or plasma calcium minda urement (mass/volume)Ordered By: Dr. Cannon on 01-07-2023 Calcium [Mass/Vol] 8.8 mg/dL 8.5-10.1 [facility] Serum or plasma creatinine m easurement (mass/volume)Ordered By: Dr. Cannon on 01-07-2023 Creatinine [Mass/Vol] 0.44 mg/dL 0.70-1.30 [facility] Comment on above: The validity of the calculated GFR & GFRAA in patients over 70 years has not been determined. Clinical correlation is essential. Serum or plasma urea nitroge n measurement (mass/volume)Ordered By: Dr. Cannon on 01-07-2023 Urea nitrogen [Mass/Vol] 12 mg/dL 7-18 [facility] Thin prep Papanicolaou smear with manual screeningOrdered By: Dr. Cannon on 01-07-2023 Thin prep Papanicolaou smear with manual screening 6 5-15 [facility] Basophil percentageOrdered B y: Dr. Cannon on 01-06-2023 Basophil percentage 2.2 mg/dL 2.5-4.9 [facility] Laboratory - Chemistry and C hemistry - challengeOrdered By: Dr. Cannon on 01-06-2023 Magnesium [Mass/Vol] 2.0 mg/dL 1.6-2.6 [facility] Basophil percentageOrdered B y: Dr. Hooper on 01-05-2023 Bilirubin [Mass/Vol] 0.30 mg/dL 0.20-1.00 [facility] Comment on above: For patients on eltr ombopag therapy, use of Dimension [place] TBIL is not recommended. Protein [Mass/Vol] 5.5 g/dL 6.4-8.2 [facility] Laboratory - Chemistry and C hemistry - challengeOrdered By: Dr. Hooper on 01-05-2023 ALP [Catalytic activity/Vol] 48 U/L 45-117 [facility] ALT [Catalytic activity/Vol] 8 U/L 16-61 [facility] Globulin (S) [Mass/Vol] 3.0 g/dL 2.2-4.2 [facility] No Panel InformationOrdered By: Dr. Hooper on 01-05-2023 Valproic Acid (Depakene) Level 57 ug/mL 50-100 [facility] Serum or plasma albumin minda urement (mass/volume)Ordered By: Dr. Hooper on 01-05-2023 Albumin [Mass/Vol] 2.5 g/dL 3.2-5.0 [facility] Serum or plasma albumin/glob ulin mass ratioOrdered By: Dr. Hooper on 01-05-2023 Albumin/Globulin [Mass ratio] 0.8 {ratio} 0.9-2.4 [facility] Thin prep Papanicolaou smear with manual screeningOrdered By: Dr. Hooper on 01-05-2023 Thin prep Papanicolaou smear with manual screening 15 U/L 15-37 [facility] Basophil percentageOrdered B y: Dr. Malik on 01-04-2023 Basophil percentage 0 SEEN /hpf 0-5 [facility] Bilirubin Test strip Ql (U)O rdered By: Dr. Malik on 01-04-2023 Bilirubin Ql (U) Negative Negative [facility] INR in Blood by Coagulation assayOrdered By: Dr. Malik on 01-04-2023 INR Coag (Bld) [Relative time] 1.0 {INR} [facility] Ketones Test strip Ql (U)Ord ered By: Dr. Malik on 01-04-2023 Ketones Ql (U) 5 mg/dl Negative [facility] Laboratory - Chemistry and C hemistry - challengeOrdered By: Dr. Malik on 01-04-2023 Cobalamin (Vitamin B12) [Mass/Vol] 504 pg/mL 211-911 [facility] CK [Catalytic activity/Vol] 50 U/L 39-308 [facility] Laboratory - CoagulationOrde red By: Dr. Malik on 01-04-2023 aPTT Coag (Bld) [Time] 24.4 s 24.1-36.2 [facility] PT Coag (PPP) [Time] 12.9 s 11.7-14.9 [facility] Mucus LM Ql (Urine sed)Order ed By: Dr. Malik on 01-04-2023 Mucus Ql (Urine sed) 0 SEEN /hpf [facility] Nitrite Test strip Ql (U)Ord ered By: Dr. Malik on 01-04-2023 Nitrite Ql (U) Negative Negative [facility] No Panel InformationOrdered By: Dr. Malik on 01-04-2023 Thyroid Stimulating Hormone (TSH) 3.10 uIU/mL 0.358-3.74 [facility] Troponin I High Sensitivity 6 pg/mL 3.0-78.0 [facility] Comment on above: Please Note: New Janice t Units and Gender Specific Reference Ranges. For more information see Policy Stat Procedure Comerio High Sensitivity Troponin (TNIH) and attachments. Protein Test strip Ql (U)Ord ered By: Dr. Malik on 01-04-2023 Protein Ql (U) Negative Negative [facility] Serum or plasma folate measu rement (mass/volume)Ordered By: Dr. Malik on 01-04-2023 Folate [Mass/Vol] 9.80 ng/mL 3.1-55.4 [facility] Squamous epithelial cells de tection in urine sediment by light microscopyOrdered By: Dr. Malki on 01-04-2023 Epithelial cells.squamous LM Ql (Urine sed) 0 SEEN /hpf 0-5 [facility] Urine blood detectionOrdered By: Dr. Malik on 01-04-2023 RBC Ql (U) Negative Negative [facility] RBC Ql (U) 0 SEEN /hpf 0-5 [facility] Urine clarityOrdered By: Dr. Malik on 01-04-2023 Clarity (U) Clear Clear [facility] Urine color determinationOrd ered By: Dr. Malik on 01-04-2023 Color (U) Yellow Yellow [facility] Urine glucose detectionOrder ed By: Dr. Malik on 01-04-2023 Glucose Ql (U) Normal mg/dl Normal [facility] Urine leukocyte esterase det ection by dipstickOrdered By: Dr. Malik on 01-04-2023 Leukocyte esterase Test strip Ql (U) Negative Negative [facility] Urine pHOrdered By: Dr. Binta smith on 01-04-2023 pH (U) 8.0 [pH] 5.0 - 8.0 [facility] Urine sediment bacteria coun t by microscopy (number/high power field)Ordered By: Dr. Malik on 01-04-2023 Bacteria LM.HPF (Urine sed) [#/Area] 0 /[HPF] None Seen [facility] Urine specific gravity measu rementOrdered By: Dr. Malik on 01-04-2023 Specific gravity (U) [Rel density] 1.010 1.002-1.03 0 [facility] Urobilinogen Auto test strip Ql (U)Ordered By: Dr. Malik on 01-04-2023 Urobilinogen Ql (U) Normal mg/dl Normal [facility] Absolute lymphocyte countOrd ered By: Dr. Skaggs on 08-11-2022 Lymphocytes Auto (Unsp spec) [#/Vol] 1.27 10*3/uL 0.83-4.51 [facility] Basophil percentageOrdered B y: Dr. Skaggs on 08-11-2022 Basophils/100 WBC (Bld) 0.3 % 0-1 [facility] Chloride [Moles/Vol] 106 mmol/L 98-107 [facility] Eosinophils/100 WBC (Bld) 0.2 % 0-5 [facility] Glucose [Mass/Vol] 131 mg/dL 74-106 [facility] Comment on above: Fasting Glucose resu lt greater than or equal to 126 mg/dL suggests DIABETES MELLITUS per A.D.A. criteria. Neutrophils (Bld) [#/Vol] 11.5 10*3/uL 2.0-7.7 [facility] Neutrophils/100 WBC (Bld) 80.3 % 47-70 [facility] Potassium [Moles/Vol] 3.6 mmol/L 3.5-5.1 [facility] Sodium [Moles/Vol] 141 mmol/L 136-145 [facility] WBC (Bld) [#/Vol] 14.3 10*3/uL 4.4-11.0 [facility] Blood erythrocytes count (nu mber/volume)Ordered By: Dr. Skaggs on 08-11-2022 RBC (Bld) [#/Vol] 4.87 10*6/uL 4.6-6.2 [facility] Blood hemoglobin measurement (mass/volume)Ordered By: Dr. Skaggs on 08-11-2022 Hemoglobin (Bld) [Mass/Vol] 15.6 g/dL 13.0-16.5 [facility] Blood lymphocytes/100 leukoc ytesOrdered By: Dr. Skaggs on 08-11-2022 Lymphocytes/100 WBC (Bld) 8.9 % 19-41 [facility] Blood monocytes/100 leukocyt esOrdered By: Dr. Skaggs on 08-11-2022 Monocytes/100 WBC (Bld) 9.8 % 0-10 [facility] Blood platelet mean volumeOr dered By: Dr. Skaggs on 08-11-2022 Platelet mean volume (Bld) [Entitic vol] 8.8 fL 6.2-12.0 [facility] COVID-19 virus antigen assay Ordered By: Dr. Skaggs on 08-11-2022 SARS-CoV-2 (COVID-19) Ag IA.rapid Ql (Resp) [facility] Determination of erythrocyte mean corpuscular volume (MCV)Ordered By: Dr. Skaggs on 08-11-2022 MCV (RBC) [Entitic vol] 94.5 fL 80-94 [facility] Hematocrit Auto (Bld) [Volum e fraction]Ordered By: Dr. Skaggs on 08-11-2022 Hematocrit (Bld) [Volume fraction] 46.0 % 40-54 [facility] Laboratory - Chemistry and C hemistry - challengeOrdered By: Dr. Skaggs on 08-11-2022 CO2 [Moles/Vol] 24.0 mmol/L 21.0-32.0 [facility] Urea nitrogen/Creatinine [Mass ratio] 11.9 mg/mg 10-20 [facility] Laboratory - Drug toxicology Ordered By: Dr. Skaggs on 08-11-2022 Amphetamines Ql (U) Negative <1000 ng/mL [facility] Benzodiazepines Ql (U) Negative < 200 ng/mL [facility] Cannabinoids Screen Ql (U) Negative < 50 ng/mL [facility] Cocaine Ql (U) Negative < 300 ng/mL [facility] Opiates Ql (U) Negative < 300 ng/mL [facility] Laboratory - Hematology and Cell countsOrdered By: Dr. Skaggs on 08-11-2022 Erythrocyte distribution width (RBC) [Entitic vol] 43.3 fL 35.1-43.9 [facility] Erythrocyte distribution width (RBC) [Ratio] 12.5 % 11.6-14.6 [facility] Immature granulocytes/100 WBC (Bld) 0.500 % 0.0-0.9 [facility] Comment on above: IG% - Immature Granu locytes (promyelocytes, myelocytes and metamyelocytes) > 1% indicates that a LEFT SHIFT is Present. MCH (RBC) [Entitic mass] 32.0 pg 27.0-32.0 [facility] Nucleated RBC/100 WBC (Bld) [Ratio] 0 % 0-5 [facility] MCHC Auto (RBC) [Mass/Vol]Or dered By: Dr. Skaggs on 08-11-2022 MCHC (RBC) [Mass/Vol] 33.9 g/dL 32-36 [facility] No Panel InformationOrdered By: Dr. Skaggs on 08-11-2022 MDMA (Ecstasy) Screen Negative < 500 ng/mL [facility] Urine Barbiturates Screen Negative < 200 ng/mL [facility] Urine Drug Screen Comment [facility] Comment on above: CONFIRMATORY TESTING FOR ALL [...] Urine Methadone Screen Negative < 300 ng/mL [facility] Estimated Creatinine Clearance Calc 53.21 ml/min [facility] Estimated GFR (MDRD) Amer 93 mL/min >60 [facility] Comment on above: GFR Calc Estimated GFR (MDRD) Non-Af Amer 77 mL/min >60 [facility] Comment on above: Non- GFR Calc Ethyl Alcohol Level < 3.0 mg/dL [facility] Comment on above: The serum:whole bloo d ethanol ratio is approximately 1.14and varies slightly with hematocrit. Medical Alcohol reference interval and critical value innon-tolerant individuals; 50 - 100 Impairment 100 Intoxication 100 - 250 Severe Poisoning 250 - 400 Deep/possible fatal coma Platelets bldOrdered By: Dr. Skaggs on 08-11-2022 Platelets (Bld) [#/Vol] 205 10*3/uL 150-450 [facility] Serum or plasma calcium minda urement (mass/volume)Ordered By: Dr. Skaggs on 08-11-2022 Calcium [Mass/Vol] 9.3 mg/dL 8.5-10.1 [facility] Serum or plasma creatinine m easurement (mass/volume)Ordered By: Dr. Skaggs on 08-11-2022 Creatinine [Mass/Vol] 1.01 mg/dL 0.70-1.30 [facility] Comment on above: The validity of the calculated GFR & GFRAA in patients over 70 years has not been determined. Clinical correlation is essential. Serum or plasma urea nitroge n measurement (mass/volume)Ordered By: Dr. Skaggs on 08-11-2022 Urea nitrogen [Mass/Vol] 12 mg/dL 7-18 [facility] Thin prep Papanicolaou smear with manual screeningOrdered By: Dr. Skaggs on 08-11-2022 Thin prep Papanicolaou smear with manual screening 11 5-15 [facility] Urine phencyclidine (PCP) de tectionOrdered By: Dr. Skaggs on 08-11-2022 Phencyclidine Ql (U) Negative < 25 ng/mL [facility] CNOVon 07-31-2022 CNOV Office Visit (AGUSTIN ) ANJEL ROSS ([id number]) 1950 M NFR Date Time Provider Department 07/31/22 9:15 AM MATEO BENTON During your visit today, we recorded the following information about you: Mateo Benton III, MD 07/31/2022 9:27 AM Signed Subjective: Patient is status post a colonoscopy completed at [facility] on 07/06/2022. Patient was noted [...] in 5 years. Referring Provider: MATEO BENTON [[id number]] Allergies As of Date: 07/31/2022 Noted Allergy [...] mg by mouth daily at bedtime. - Plnbm-7-KTE-EPA-Fish Oil 1,000 mg (120 mg-180 mg) cap [...] - wit (more content not included)... Normal [facility] CNPNon 07-14-2022 CNPN Telephone (GENAlicantoS) ANJEL ROSS ([id number]) 1950 M NFR Date Time Provider Department 07/14/22 MATEO BENTON GENSWS During your visit today, we recorded the following information about you: Silvia Huitron 07/14/2022 1:06 PM Signed Patient called requesting results from colonoscopy. Elizabeth Ruth LPN 07/14/2022 1:27 PM Signed Please call patient to schedule a virtual or office visit to view colonoscopy results. Thank you. Anjel# [phone] [facility]ie [facility] 07/14/2022 2:36 PM Addendum They will call back to schedule.Georgie [facility] Allergies As of Date: 07/14/2022 Noted [...] mg by mouth daily at bedtime. - Gspbf-3-EFV-EPA-Fish Oil (FISH OIL) 1,000 mg (120 mg-180 [...] initial [Z00.0 (more content not included)... Normal [facility] CNOVon 04-14-2022 CNOV Office Visit (GENSWS ) ANJEL ROSS ([id number]) 1950 M NFR Date Time Provider Department [...] colonoscopy 03/26/[address] Anjel Nagy at [facility]. Patient was noted to have [...] W/COLLJ SPEC WHEN PFRMD 03/25/16 Colonoscopy outpt [facility] - COLSC FLX W/REMOVAL LESION BY [...] mg by mouth daily at bedtime. - Petof-6-UFY-EPA-Fish Oil (FISH OIL) 1,000 mg (120 mg-180 [...] 3-4 ti (more content not included)... [facility] Telephone (NE50MN) ANJEL ROSS ([id number]) 1950 M NFR Date Time Provider Department 03/13/22 ANNIA CHUNG NE50MN During your visit today, we recorded the following information about you: Imani Mejia 03/13/2022 11:11 AM Signed Medication Concern Person Calling Silvia Rehman from [facility] Name of medication Depakote XR. Concern with medication Nurse advised pt is having difficulty swallowing pill and since XR she can't crush. Nurse is asking if can get non XR or liquid so it's not difficult for pt? Patient of Dr. Sheldon Talley RN 03/13/2022 11:20 AM Signed Recent visit 03/06/22 with Nils Merner,SILVER SERVICE WAITER: ASSESSMENT: Anjel Ross is a 71 year [...] times daily. Authorizing Provider: MIQUEL OBREGON APRN.KRISTEN Talley RN 03/13/2022 1:59 PM Signed Notified Silvia rx has been sent and a PA will be completed if needed. Dorothy Talley RN Allergies As of Date: 03/13/2022 Noted Allergy Reaction ASA (SALICYLATES) 06/13/2005 NICKEL 01/16/2013 2 - Rash TRILEPTAL (OXCARBAZEPINE) 06/13/2005 Date Reviewed: 11/11/2020 Reviewed by: Nancy Cervantes Ma - Fully Assessed Reason for Visit: Medication Question [7158] Cmt: Depakote XR Order(s):valproic acid (DEPAKENE) 250 [...] mg by mouth daily at bedtime. - Uawpp-4-CIH-EPA-Fish Oil (FISH OIL) 1,000 mg (120 mg-180 [...] 1 tablet (more content not included)... Normal [facility] 02-26-2022 KRISTENN Telephone (NE50MN) ANJEL ROSS ([id number]) 1950 M R Date Time Provider Department 02/26/22 MIQUEL OBREGON [...] mg by mouth daily at bedtime. - Hiefs-2-ZJO-EPA-Fish Oil (FISH OIL) 1,000 mg (120 mg-180 [...] [E88.81] 01/19/2014 (more content not included)... Normal [facility] Vital Signs Date Time Vital Sign Value Performing Clinician Faci lity 01-31-2025 11:23-0400 Body temperature 97.8 [degF] Dr. Avani Eduardo MD [facility] 01-31-2025 11:23-0400 Heart rate 87 /min Dr. Avani Eduardo MD [facility] 01-31-2025 11:23-0400 Respiratory rate 16 /min Dr. Avani Eduardo MD [facility] 01-31-2025 11:23-0400 SaO2% (BldA) [Mass fraction] 96 % Dr. Avani Eduardo MD [facility] 11-01-2024 10:46-0500 Body temperature 97.7 [degF] Out [facility] 11-01-2024 10:46-0500 Diastolic blood pressure 73 mm[Hg] Out [facility] 11-01-2024 10:46-0500 Heart rate 74 /min Out [facility] 11-01-2024 10:46-0500 Respiratory rate 16 /min Out [facility] 11-01-2024 10:46-0500 SaO2% (BldA) [Mass fraction] 95 % Out [facility] 11-01-2024 10:46-0500 Systolic blood pressure 134 mm[Hg] Out [facility] 01-18-2023 14:37-0400 Body temperature 98.2 [degF] Dr. Maddie Cantor [facility] 01-18-2023 14:37-0400 Diastolic blood pressure 65 mm[Hg] Dr. Maddie Cantor [facility] 01-18-2023 14:37-0400 Heart rate 93 /min Dr. Maddie Cantor [facility] 01-18-2023 14:37-0400 Respiratory rate 18 /min Dr. Maddie Cantor [facility] 01-18-2023 14:37-0400 SaO2% (BldA) [Mass fraction] 94 % Dr. Maddie Cantor [facility] 01-18-2023 14:37-0400 Systolic blood pressure 114 mm[Hg] Dr. Maddie Cantor [facility] 01-18-2023 02:19-0400 Body mass index (BMI) [Ratio] 35.9 kg/m2 Dr. Maddie Cantor [facility] 01-18-2023 02:19-0400 Body weight 91.[address] Maddie Cantor [facility] 01-15-2023 11:23-0400 Body height 160.[address] Maddie Cantor [facility] 01-10-2023 09:36-0400 Body temperature 98 [degF] Dr. Maddie Cantor [facility] 01-10-2023 09:36-0400 Diastolic blood pressure 54 mm[Hg] Dr. Maddie Cantor [facility] 01-10-2023 09:36-0400 Heart rate 76 /min Dr. Maddie Cantor [facility] 01-10-2023 09:36-0400 Respiratory rate 16 /min Dr. Maddie Cantor [facility] 01-10-2023 09:36-0400 SaO2% (BldA) [Mass fraction] 97 % Dr. Maddie Cantor [facility] 01-10-2023 09:36-0400 Systolic blood pressure 107 mm[Hg] Dr. Maddie Cantor [facility] 01-10-2023 01:40-0400 Body height 160.[address] Maddie Cantor [facility] 01-10-2023 01:40-0400 Body mass index (BMI) [Ratio] 35.3 kg/m2 Dr. Maddie Cantor [facility] 01-10-2023 01:40-0400 Body weight 90.[address] Maddie Cantor [facility] 01-07-2023 16:25-0400 Body temperature 99 [degF] Dr. Maddie Cantor [facility] 01-07-2023 16:25-0400 Diastolic blood pressure 79 mm[Hg] Dr. Maddie MACIEL [facility] 01-07-2023 16:25-0400 Heart rate 89 /min Dr. Maddie MACIEL [facility] 01-07-2023 16:25-0400 Respiratory rate 16 /min Dr. Maddie MACIEL [facility] 01-07-2023 16:25-0400 SaO2% (BldA) [Mass fraction] 98 % Dr. Maddie MACIEL [facility] 01-07-2023 16:25-0400 Systolic blood pressure 114 mm[Hg] Dr. Maddie Cantor [facility] 01-07-2023 12:51-0400 Body mass index (BMI) [Ratio] 37.8 kg/m2 Dr. Maddie Cantor [facility] 01-06-2023 06:00-0400 Body weight 96.[address] Maddie Cantor [facility] 12-31-2022 07:42-0400 Diastolic blood pressure 72 mm[Hg] [facility] 12-31-2022 07:42-0400 Heart rate 69 /min [facility] 12-31-2022 07:42-0400 Respiratory rate 15 /min [facility] 12-31-2022 07:42-0400 SaO2% (BldA) [Mass fraction] 98 % [facility] 12-31-2022 07:42-0400 Systolic blood pressure 139 mm[Hg] [facility] 12-31-2022 06:02-0400 Body height 160.02 cm [facility] 12-31-2022 06:02-0400 Body mass index (BMI) [Ratio] 34.2 kg/m2 [facility] 12-31-2022 06:02-0400 Body temperature 97.2 [degF] [facility] 12-31-2022 06:02-0400 Body weight 87.7 kg [facility] 11-16-2022 19:04-0500 Diastolic blood pressure 69 mm[Hg] [facility] 11-16-2022 19:04-0500 Heart rate 88 /min [facility] 11-16-2022 19:04-0500 Respiratory rate 16 /min [facility] 11-16-2022 19:04-0500 SaO2% (BldA) [Mass fraction] 97 % [facility] 11-16-2022 19:04-0500 Systolic blood pressure 143 mm[Hg] [facility] 11-16-2022 18:12-0500 Body height 175.26 cm [facility] 11-16-2022 18:12-0500 Body mass index (BMI) [Ratio] 27.6 kg/m2 [facility] 11-16-2022 18:12-0500 Body temperature 98.1 [degF] [facility] 11-16-2022 18:12-0500 Body weight 84.9 kg [facility] 08-12-2022 13:43-0500 Diastolic blood pressure 85 mm[Hg] [facility] 08-12-2022 13:43-0500 Heart rate 75 /min [facility] 08-12-2022 13:43-0500 Respiratory rate 15 /min [facility] 08-12-2022 13:43-0500 SaO2% (BldA) [Mass fraction] 98 % [facility] 08-12-2022 13:43-0500 Systolic blood pressure 132 mm[Hg] [facility] 08-11-2022 14:37-0500 Body height 160.02 cm [facility] Work Phone: 08-11-2022 14:37-0500 Body mass index (BMI) [Ratio] 37.2 kg/m2 [facility] 08-11-2022 14:37-0500 Body temperature 97.6 [degF] [facility] 08-11-2022 14:37-0500 Body weight 95.25 kg [facility] 07-06-2022 17:01-0400 Body temperature 97.6 [degF] [facility] Work Phone: 07-06-2022 17:01-0400 Diastolic blood pressure 69 mm[Hg] [facility] Work Phone: 07-06-2022 17:01-0400 Heart rate 71 /min [facility] Work Phone: 07-06-2022 17:01-0400 Respiratory rate 18 /min [facility] Work Phone: 07-06-2022 17:01-0400 SaO2% (BldA) [Mass fraction] 97 % [facility] Work Phone: 07-06-2022 17:01-0400 Systolic blood pressure 126 mm[Hg] [facility] Work Phone: 07-06-2022 11:41-0400 Body height 160.02 cm [facility] Work Phone: 07-06-2022 11:41-0400 Body mass index (BMI) [Ratio] 35.9 kg/m2 [facility] Work Phone: 07-06-2022 11:41-0400 Body weight 92.07 kg [facility] Work Phone: Encounters Encounter Date Encounter Type Care Provider Facility Start: 06-26-2025 ambulatory Avani Eduardo Facility:[facility] Start: 06-12-2025 ambulatory Avani MACIEL Facili ty:[facility] Start: 06-05-2025 ambulatory Avani MACIEL Facili ty:[facility] Start: 05-29-2025 End: 05-29-2025 ambulatory Avani MACIEL Facility:[facility] Start: 05-08-2025 End: 05-08-[address] Avani Eduardo MD [facility] Start: 05-08-2025 End: 05-08-[address] Avani Eduardo MD -[facility] Start: 05-08-2025 End: 05-08-2025 ambulatory Avani MACIEL Facility:[facility] Start: 05-01-2025 ambulatory Avani Eduardo Facility:[facility] Start: 05-01-[address] Avani Eduardo MD -[facility] Start: 04-24-2025 ambulatory [facility] Facility:[facility] Start: 04-24-[address] Avani Eduardo MD -[facility] Start: 04-03-2025 ambulatory [facility] Facility:[facility] Start: 04-03-[address] Avani Eduardo MD -[facility] Start: 02-28-2025 ambulatory [facility] Facility:[facility] Start: 02-28-[address] Avani Eduardo MD -[facility] Start: 02-13-2025 Non-patient / Non-visit Dr. Eris gracia MD -[facility] Start: 02-13-2025 End: 02-13-[address] Avani Eduardo MD [facility] Work Phone: Start: 02-13-2025 End: 02-13-2025 Patient encounter procedure Kourtney SUERO -[facility] Work Phone: Start: 02-13-2025 End: 02-13-2025 ambulatory [facility] Facility:[facility] Start: 02-01-2025 End: 02-01-[address] Avani Eduardo MD -[facility] Start: 02-01-[address] Avani Eduardo MD -[facility] Start: 01-31-2025 End: 01-31-2025 Patient encounter procedure Kourtney SUERO -[facility] Work Phone: Start: 01-31-2025 End: 02-01-2025 ambulatory Avani [facility] Facility:[facility] Start: 01-05-2025 End: 01-05-[address] Avani Eduardo MD -[facility] Start: 01-05-2025 End: 01-05-[facility] Start: 01-03-2025 End: 01-03-[address] Avani Eduardo MD -[facility] Start: 01-02-2025 End: 01-03-2025 ambulatory [facility] Facility:[facility] Start: 01-02-[address] Avani Eduardo MD -[facility] Start: 12-06-2024 End: 12-06-2024 ambulatory Out of Town Doctor [facility] Work Phone: Start: 12-06-2024 End: 12-06-[address] Avani Eduardo MD -[facility] Start: 12-06-2024 End: 12-06-2024 ambulatory [facility] Facility:[facility] Start: 11-01-2024 End: 11-01-2024 Patient encounter procedure Kourtney SUERO -[facility] Work Phone: Start: 11-01-2024 End: 11-01-2024 ambulatory [facility] Liam Facility:[facility] Start: 10-05-2024 End: 10-05-[address] Avani Eduardo MD -[facility] Start: 10-05-2024 End: 10-05-2024 ambulatory [facility] Facility:[facility] Start: 09-29-2024 End: 09-29-[address] Avani Eduardo MD [facility] Start: 09-29-2024 End: 09-29-2024 ambulatory Out of Town Doctor Facility:[facility] Start: 08-01-2024 End: 08-01-2024 ambulatory Out of Town Doctor Facility:[facility] Start: 04-24-2024 End: 04-24-2024 ambulatory STANTON ANDREWS Not Available Start: 03-27-2024 End: 03-27-2024 ambulatory STANTON ANDREWS Not Available Start: 03-14-2024 End: 03-14-2024 ambulatory STANTON ANDREWS Not Available Start: 01-10-2024 End: 01-10-2024 ambulatory [facility] Work Phone: Start: 01-10-2024 End: 01-10-2024 Departed Referred [facility] Start: 01-10-2024 Registered Referred [facility] Start: 01-03-2024 End: 01-03-2024 ambulatory [facility] Work Phone: Start: 01-03-2024 End: 01-03-2024 Departed Referred [facility] Start: 12-15-2023 End: 12-15-2023 ambulatory [facility] Work Phone: Start: 12-15-2023 End: 12-15-2023 Departed [facility] Start: 11-04-2023 End: 11-04-2023 ambulatory [facility] Work Phone: Start: 11-04-2023 End: 11-04-2023 Departed [facility] Start: 11-04-2023 Registered Referred [facility] Start: 10-20-2023 End: 10-20-2023 ambulatory [facility] Work Phone: Start: 10-20-2023 End: 10-20-2023 Departed [facility] Start: 10-11-2023 End: 10-11-2023 ambulatory [facility] Work Phone: Start: 10-11-2023 End: 10-11-2023 Departed [facility] Start: 10-11-2023 Registered Referred [facility] Start: 10-05-2023 End: 10-05-2023 ambulatory [facility] Work Phone: Start: 10-05-2023 End: 10-05-2023 Departed [facility] Start: 10-05-2023 Registered Referred [facility] Start: 09-22-2023 End: 09-22-2023 ambulatory [facility] Work Phone: Start: 09-22-2023 End: 09-22-2023 Departed [facility] Start: 09-22-2023 Registered Referred [facility] Start: 09-16-2023 End: 09-16-2023 ambulatory STANTON ANDREWS Not Available Start: 09-13-2023 End: 09-13-2023 ambulatory [facility] Work Phone: Start: 09-13-2023 End: 09-13-2023 Departed [facility] Start: 08-30-2023 End: 08-30-2023 ambulatory [facility] Work Phone: Start: 08-30-2023 End: 08-30-2023 Departed [facility] Start: 08-23-2023 End: 08-23-2023 ambulatory [facility] Work Phone: Start: 08-23-2023 End: 08-23-2023 Departed [facility] Start: 08-23-2023 Registered Referred [facility] Start: 05-24-2023 End: 05-24-2023 ambulatory [facility] Work Phone: Start: 05-24-2023 End: 05-24-2023 Departed [facility] Start: 02-16-2023 Registered Referred [facility] Start: 02-09-2023 End: 02-09-2023 Departed [facility] Start: 02-05-2023 End: 02-05-2023 Departed [facility] Start: 01-18-2023 Non-patient / Non-visit Dr. Nelson MACIEL [facility] Start: 01-17-2023 Non-patient / Non-visit Dr. Nelson MACIEL [facility] Start: 01-16-2023 Non-patient / Non-visit Dr. Nelson MACIEL [facility] Start: 01-15-2023 Non-patient / Non-visit Dr. Nelson MACIEL [facility] Start: 01-14-2023 Non-patient / Non-visit Dr. Nelson Cantor [facility] Start: 01-13-2023 Non-patient / Non-visit Dr. Nelson Cantor [facility] Start: 01-12-2023 Non-patient / Non-visit Dr. Nelson Cantor [facility] Start: 01-11-2023 Non-patient / Non-visit Dr. Nelson Cantor [facility] Start: 01-10-2023 End: 01-18-2023 Evaluation and management of inpatient Dr. Maddie Cantor [facility]Medical Surgical 3 Start: 01-10-2023 End: 01-18-[address] Maddie Cantor [facility] Work Phone: Start: 01-08-2023 End: 01-09-2023 Evaluation and management of inpatient MADDIE ZAIN ABERDEEN Facility:[facility] Start: 01-07-2023 Non-patient / Non-visit Dr. Nelson MACIEL [facility] Start: 01-06-2023 Non-patient / Non-visit Dr. Nelson Cantor [facility] Start: 01-05-2023 Non-patient / Non-visit Dr. Nelson MACIEL [facility] Start: 01-04-2023 Non-patient / Non-visit Dr. Nelson Cantor [facility] Start: 01-04-2023 End: 01-07-2023 Evaluation and management of inpatient Dr. Maddie Cantor [facility]Pro[facility] Start: 12-31-2022 End: 12-31-2022 Emergency department patient visit [facility] Start: 11-16-2022 End: 11-16-2022 Emergency department patient visit [facility] Start: 09-29-2022 Brittanie telles MD Work Phone: Neurology Comment on above: Refill Request Start: 08-11-2022 End: 08-12-2022 Emergency department patient visit [facility] Start: 07-31-2022 End: 07-31-2022 ambulatory MATEO BENTON Facility:[facility] Start: 07-31-2022 End: 07-31-2022 Patient encounter procedure Mateo Benton MD Work Phone: General Surgery Comment on above: Personal history of colon cancer (Primary Dx); History of colonic polyps Start: 07-14-2022 Telephone encounter Mateo crowder MD Work Phone: General Surgery Comment on above: Results Start: 07-06-2022 End: 07-06-2022 Admission to same day surgery center [facility] Start: 07-06-2022 End: 07-06-2022 ambulatory [facility] Work Phone: Start: 04-14-2022 End: 04-14-2022 ambulatory MADELIN PHYLLIS Facility: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 Maddie MACIEL Urine culture Dr. Maddie MACIEL Viral antigen assay Viral antigen assay Plan of Treatment Date Care Activity Detail Author Start: 04-14-2023 BP CONTROLLED (<130/80) BP CONTROLLE D (<130/80) [facility] Start: 03-18-2023 DIABETES SCREEN DIABETES SCREEN [facility] Start: 01-18-2023 Patient discharge [facility] Start: 01-17-2023 [facility] Start: 01-16-2023 Speech therapy assessment [facility] Start: 01-15-2023 [facility] Start: 01-12-2023 Following clinical pathway protocol [facility] Start: 01-10-2023 Fall prevention [facility] Start: 01-10-2023 Provision of activit y privileges [facility] Start: 01-10-2023 Assessment of risk o f venous thromboembolism [facility] Start: 01-10-2023 Insertion of cathete r into peripheral vein [facility] Start: 01-10-2023 Providing care accor ding to standard [facility] Start: 01-10-2023 Referral to service [facility] Start: 01-10-2023 [facility] Start: 01-10-2023 Following clinical pathway protocol [facility] Start: 01-10-2023 Referral to occupati onal therapist [facility] Start: 01-10-2023 Referral to service [facility] Start: 01-10-2023 Admission procedure [facility] Start: 01-10-2023 Patient referral to dietitian [facility] Start: 01-07-2023 Patient discharge [facility] Start: 01-05-2023 Speech therapy assessment [facility] Start: 01-04-2023 Following clinical pathway protocol [facility] Start: 01-04-2023 Provision of activit y privileges [facility] Start: 01-04-2023 Aspiration precautions [facility] Start: 01-04-2023 Assessment of risk o f venous thromboembolism [facility] Start: 01-04-2023 Fall prevention [facility] Start: 01-04-2023 Insertion of cathete r into peripheral vein [facility] Start: 01-04-2023 Introduction of urin dinora catheter [facility] Start: 01-04-2023 Measuring intake and output [facility] Start: 01-04-2023 Providing care accor ding to standard [facility] Start: 01-04-2023 Referral to occupati onal therapist [facility] Start: 01-04-2023 Referral to service [facility] Start: 01-04-2023 Application of elast ic bandage [facility] Start: 01-04-2023 Continuous positive airway pressure ventilation treatment [facility] Start: 01-04-2023 Elevation of affecte d extremity [facility] Start: 01-04-2023 Neurological assessment [facility] Start: 01-04-2023 Wound care [facility] Start: 01-04-2023 End: 01-04-2023 [facility] Start: 01-04-2023 Admission procedure [facility] Start: 10-04-2022 ADVANCE DIRECTIVE DISCUSSION ADVANCE DIRECTIVE DISCUSSION [facility] Start: 08-11-2022 Referral to service [facility] Start: 08-11-2022 End: 08-11-2022 Suicide precautions [facility] Start: 07-06-2022 Colsc flx w/rmvl of tumor polyp lesion snare tq COLONOSCOPY W/LESION REMOVAL [facility] Work Phone: Start: 07-06-2022 Patient discharge [facility] Work Phone: Start: 06-27-2022 COVID-19 VACCINE (4 - Booster for Moderna series) COVID-19 VACCINE (4 - Booster for Moderna series) [facility] Start: 06-04-2022 Influenza vaccination C [facility] Start: 04-21-2022 COVID-19 VACCINE (4 - Booster for Moderna series) COVID-19 VACCINE (4 - Booster for Moderna series) [facility] Start: 03-10-2022 End: 05-10-2022 Comprehensive metabolic 2000 panel - Serum or Plasma COMP METABOLIC PANEL Lab Routine 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) Expected: 03/10/2022, Expires: 05/10/2022 [facility] [place] Work Phone: Comment on above: Expected: 03/10/2022 , Expires: 05/10/2022 Start: 03-10-2022 End: 05-10-2022 levETIRAcetam [Mass/volume] in Serum or Plasma LEVETIRACETAM Lab Routine 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) Expected: 03/10/2022, Expires: 05/10/2022 [facility] Work Phone: Comment on above: Expected: 03/10/2022 , Expires: 05/10/2022 Start: 03-10-2022 End: 05-10-2022 VALPROIC A/DEPAKENE VALPROIC A/DEPAKENE Lab Routine 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) Expected: 03/10/2022, Expires: 05/10/2022 [facility] Work Phone: Comment on above: Expected: 03/10/2022 , Expires: 05/10/2022 Start: 10-04-2021 ADVANCE DIRECTIVE DISCUSSION ADVANCE DIRECTIVE DISCUSSION [facility] Start: 11-20-2020 COVID-19 VACCINE (2 - Moderna 3-dose series) COVID-19 VACCINE (2 - Moderna 3-dose series) [facility] Start: 10-22-2020 LIPID SCREEN LIPID SCREEN [facility] Start: 03-26-2018 Colonoscopy COLONOSCOPY [facility] Start: 03-26-2018 COLORECTAL CANCER SCREENING COLORECTAL CANCER SCREENING [facility] Start: 09-19-2016 FECAL OCCULT BLOOD FECAL OCCULT BLOO D [facility] Start: 11-02-2015 PNEUMOCOCCAL: 65+ (#3) PNEUMOCOCCAL: 65+ (#3) [facility] Start: 11-02-2015 PNEUMOCOCCAL: 65+ (2 - PPSV23 or PCV20) PNEUMOCOCCAL: 65+ (2 - PPSV23 or PCV20) [facility] Start: 07-30-2015 SHINGRIX VACCINE (2 of 3) PALMA GRIX VACCINE (2 of 3) [facility] Start: 2014 PNEUMOVAX AGE 65 AND OVER WITH 5YR LOOKBACK (#1) PNEUMOVAX AGE 65 AND OVER WITH 5YR LOOKBACK (#1) [facility] Start: 06-06-2006 Urine microalbumin profile DTAP,TDAP,TD (1 - Tdap) [facility] Start: 1994 COLOGUARD (FIT-DNA) COLOGUARD (FIT-D NA) [facility] Start: [address] COLONOGRAPHY [facility] Start: 1994 SIGMOIDOSCOPY SIGMOIDOSCOPY [facility] Start: 1967 ANNUAL PCP TEAM [employer] RODNEY DISEASE VISIT ANNUAL PCP TEAM CHRONIC DISEASE VISIT [facility] Start: 1967 BP CONTROLLED (<130/80) BP CONTROLLE D (<130/80) [facility] Start: 1967 HEPATITIS C SCREENING HEPATITIS C [facility] Patient Education [facility] Work Phone: Patient referral [facility] Work Phone: [facility] Immunizations Immunization Date Immunization Notes Care Provider Fa cility 07-21-2022 influenza, injectabl e, quadrivalent, preservative free [facility] 07-21-2022 influenza, seasonal, injectable Dr. Maddie Cantor [facility] 02-24-2022 Covid (Moderna) Dr. Maddie Cantor [facility] 11-18-2020 Covid (Moderna) Dr. Maddie Cantor [facility] 10-23-2020 Covid (Moderna) Dr. Maddie Cantor [facility] 07-26-2015 influenza, high dose seasonal, preservative-free Miquel Obregon MORTGAGE ADVISOR.SILVER SERVICE WAITER Work Phone: [facility] 06-04-2015 zoster vaccine, live Miquel guthrie MORTGAGE ADVISOR.SILVER SERVICE WAITER Work Phone: [facility] 11-02-2014 pneumococcal conjuga te vaccine, 13 valent Miquel Obregon MORTGAGE ADVISOR.SILVER SERVICE WAITER Work Phone: [facility] 08-04-2014 Influenza virus vaccine [facility] 08-02-2014 influenza, seasonal, injectable Miquel Obregon MORTGAGE ADVISOR.SILVER SERVICE WAITER Work Phone: [facility] 07-14-2013 influenza virus vacc ine, unspecified formulation Miquel Obregon MORTGAGE ADVISOR.SILVER SERVICE WAITER Work Phone: [facility] 06-05-2006 tetanus and diphther ia toxoids, adsorbed, preservative free, for adult use (2 Lf of tetanus toxoid and 2 Lf of diphtheria toxoid) Miquel Obregon MORTGAGE ADVISOR.SILVER SERVICE WAITER Work Phone: [facility] 07-30-2005 influenza virus vacc ine, unspecified formulation Miquel Obregon MORTGAGE ADVISOR.SILVER SERVICE WAITER Work Phone: [facility] Work Phone: 06-13-2005 tetanus and diphther ia toxoids, adsorbed, preservative free, for adult use (2 Lf of tetanus toxoid and 2 Lf of diphtheria toxoid) Miquel Obregon MORTGAGE ADVISOR.SILVER SERVICE WAITER Work Phone: [facility] Work Phone: 09-11-1997 pneumococcal polysaccharide vaccine, 23 valent Miquel Obregon MORTGAGE ADVISOR.SILVER SERVICE WAITER Work Phone: [facility] Work Phone: Payers Date Payer Category Payer Unknown [id number] 2024 Self-pay [id number] 2024 Unknown [id number] 2023 Medicare [id number] 2017 Medicaid UHC MEDICAID [facility] MEDICAID [id number] 2017-Present [phone] [address] [place] [address] Medicaid [id number] 2017 Medicaid UHC MEDICAID [facility] MEDICAID [id number] 2017-Present [phone] [address] [place] [address] Medicaid [id number] 2017 Medicare [id number] 2017 Unknown [id number] 1950 Unknown [id number] 2.16.840.1.303048.3.579.2.1259 1950 Unknown [id number] 2.16.840.1.051761.3.579.2.1259 1950 Unknown [id number] 2.16.840.1.176749.3.579.2.1259 1950 Unknown [id number] 2.16.840.1.715292.3.579.2.1259 Medicare [id number] Medicare MEDICARE PART A B [id number] Unknown [id number] 2.16.840.1.438115.3.579.2.462 Unknown [id number] 2.16.840.1.044626.3.579.2.462 Unknown [id number] 2.16.840.1.891925.3.579.2.462 Unknown [id number] 2.16.840.1.406569.3.579.2.462 Unknown [id number] 2.16.840.1.699503.3.579.2.462 Unknown [id number] 2.16.840.1.230495.3.579.2.462 Unknown [id number] 2.16.840.1.894522.3.579.2.462 Unknown [id number] 2.16.840.1.489777.3.579.2.462 Unknown [id number] 2.16.840.1.955200.3.579.2.462 Unknown [id number] 2.16.840.1.110248.3.579.2.462 Unknown [id number] 2.16.840.1.829215.3.579.2.462 Unknown [id number] 2.16840.1.919746.3.579.2.462 Unknown [id number] 2.840.1.431343.3.579.2.462 Unknown [id number] 2.840.1.868391.3.579.2.462 Unknown [id number] 2.16.840.1.502097.3.579.2.462 Unknown [id number] 2.16.840.1.657655.3.579.2.462 Unknown [id number] 2.840.1.410047.3.579.2.462 Unknown [id number] 2.840.1.793959.3.579.2.462 Unknown [id number] 2.840.1.449118.3.579.2.462 Unknown [id number] 2.840.1.692920.3.579.2.462 Unknown [id number] 2.16840.1.177381.3.579.2.462 Social History Date Type Detail Facility Start: 07-31-2015 End: 01-10-2023 Tobacco smoking status UTIS Never smoked tobacco [facility] Start: 11-11-2020 End: 07-31-2022 Alcohol intake Current non-drinker of alcohol (finding) [facility] Start: 1950 Sex Assigned At Not on file C [facility] Start: 01-17-2022 End: 07-31-2022 Exposure to SARS-CoV-2 (event) Not sure [facility] Start: 07-01-2022 End: 01-10-2023 Tobacco smoking status NHIS Unknown if ever smoked [facility] Start: 04-14-2022 None [facility] Start: 07-11-2019 - [facility] Start: 04-14-2022 Non-smoker [facility] Start: 1950 Sex Assigned At Male W [facility] Start: 07-31-2015 Tobacco use and exposure Smokeless tobacco non-user [facility] Start: 01-02-2025 Sex Male (finding) [facility] Goals Date Patient Goal Desired Activity /State Functional Status Date Assessment Result Facility 01-18-2023 Functional status Chair [facility] Work Phone: 01-07-2023 Functional status Activity Abili ty With Assist of 1 [facility] Work Phone: 01-06-2023 Functional status Ambulates [facility] Work Phone: Mental Status Date Assessment Result Facility 01-18-2023 Cognitive function Voice/Name [facility] Work Phone: 01-10-2023 Cognitive function Level Of Cons ciousness Awake;Alert;Appropriate;Follow s Commands [facility] Work Phone: 01-07-2023 Cognitive function Voice/Name [facility] Work Phone: 07-06-2022 Cognitive function Drowsy [facility] Work Phone: 07-06-2022 Cognitive function Arousable To Voice/Nam e [facility] Work Phone: Clinical Notes 01-28-2016 to 01-31-2025 Note Date & Type Note Facility 01-31-2025 Evaluation note Diagnosis Onset Date Resolution Bilateral lower extremity edema acute January 31, 2025 11:04am PVD (peripheral vascular disease) acute January 31 11:04am [facility] Work Phone: 1(752) 365-788401-29-2025 Evaluation note* Diagnosis Onset Date Resolution Status Admit Date Bilateral lower extremity edema acute November 01 10:09am PVD (peripheral vascular disease) acute November 01 10:09am [facility] Work Phone: 1(265) 884-561001-29-2025 Evaluation note* Diagnosis Onset Date Resolution Status Admit Date Bilateral lower extremity edema acute November 01 10:09am PVD (peripheral vascular disease) acute November 01 10:09am Bilateral lower extremity edema acute January 31, 2025 11:04am PVD (peripheral vascular disease) acute January 31, 2025 11:04am [facility] Work Phone: 1(145) 598-292704-17-2023 Discharge summary Author [facility] January 18, 2023 2:44pm Note Date/Time January 18, 2023 2:4 4pm [facility] Medical Records Department [address] [place] [address] Discharge Summary 01/18/23 1438 MR#: [id number] Acct: [id number] Name: ANJEL ROSS Rep #:[id number] : 1950 72 From: Kary Recio MD PCP: NILS CANTOR Status:ADM PAIGE Location: [place] [address] Providers Date of Admission: 01/10/23 Date of [...] he had NPH and so was transferred [facility] recently. * He was reviewed there [...] was confirmed from documentation he brought from [facility]. * Total tvpc-qj-mjuy time 17 minutes. Total time spent on [...] 270 mg PO DAILY supplement 01/10/23 omega 9-ylr-yun-fish oil 1,000 mg (120 mg-180 mg) capsule [...] valproic acid levels. He was transferred to [facility] where his symptoms were thought to [...] but this improved. Patient was called for custodial and was discharged to the prison facility on 01/18/2023. He was discharged on p.o. lactulose. He is to follow-up with his primary care doctor and is to have monitoring of his ammonia level in the custodial. Was referred to gastroenterology on outpatient basis [...] (Auto) 44.0 L, Lymph % (Auto) 38.8, Stevens % (Auto) 13.7 H, Eos % (Auto) [...] mg Capsule 200 mg PO TID omega 7-ofg-frv-fish oil 1,000 mg (120 mg-180 mg) Capsule 1 cap PO BID ferrous gluconate 270 mg (27 mg iron) Tablet 270 mg PO DAILY Discontinued acetaminophen 325 mg tablet 1,300 mg PO BID Label Comments: [facility] / DX:E Referrals / Follow Up: NILS CANTOR [Other] NILS CANTOR [Other] Doctor,Your [Non-Staff] - 1 Day for another exam Disposition Disposition (needs filled in before D/C Order can be placed): Alf Facility Charges/Coding Visit Charges Inpatient E&M: 69354 Disch Hosp >30min 01/18/23 5193 <Electronically signed by Kary Recio MD> Cosigner Signature (if applicable): CC: Dr. Kary Recio MD; NILS CANTOR~ Signed [facility] Work Phone: 1(198) 987-206604-17-[address] Recio [facility] January 18, 2023 2:38pm Note Date/Time January 18, 2023 2:3 8pm [facility] Medical Records Department [address] [place] [address] Transfer to [facility] MR#: [id number] Acct: [id number] Name: ANJEL ROSS Rep #:[id number] : 1950 72 From: Kary Recio MD PCP: NILS CANTOR Status:ADM PAIGE Certification of patient admission REQUIRED AT TIME OF ADMISSION. I CERTIFY THAT POST-HOSPITAL ECF SERVICES ARE REQUIRED TO BE GIVEN ON AN IN-PATIENT BASIS BECAUSE OF THE ABOVE NAMED PATIENT'S NEED FOR LONGTERM CARE ON A CONTINUING BASIS FOR THE CONDITION(S) FOR WHICH HE/SHE WAS RECEIVING IN-PATIENT HOSPITAL SERVICES PRIOR TO HIS/HER TRANSFER TO THE [facility]. 01/18/23 1438<Electronically signed by Kary Recio MD> [...] he had NPH and so was transferred [facility] recently. * He was reviewed there [...] was confirmed from documentation he brought from [facility]. * Total ryha-tg-zerz time 17 minutes. Total time spent on [...] mg Capsule 200 mg PO TID omega 8-uxq-hle-fish oil 1,000 mg (120 mg-180 mg) Capsule 1 cap PO BID ferrous gluconate 270 mg (27 mg iron) Tablet 270 mg PO DAILY Discontinued acetaminophen 325 mg tablet 1,300 mg PO BID Label Comments: 4 TABLETS (1300MG) [facility] / DX:E Referrals / Follow Up: NILS CANTOR [Other] NILS CANTOR [Other] Doctor,Your [Non-Staff] - 1 Day for another exam Disposition Disposition (needs filled in before D/C Order can be placed): Alf Facility 01/18/23 7003 <Electronically signed by Kary Recio MD> Cosigner Signature (if applicable): CC: Dr. Kary Recio MD; Dr. Nina Wilder MD; NILS CANTOR ~ [facility] Work Phone: 1(659) 770-748004-16-[address] Wilder [facility] January 17, 2023 3:08pm Note Date/Time January 17, 2023 7:4 6am [facility] Medical Records Department [address] [place] [address] Progress Note - Hospitalist 01/17/23 0746 MR#: [id number] Acct: [id number] Name: ANJEL ROSS Rep #:[id number] : 1950 72 From: Nina Wilder MD PCP: NILS CANTOR Status:ADM PAIGE Location: [place] [address]1 Reason for Visit Reason for Visit: Diagnoses [...] 41.2 L, Lymph % (Auto) 41.7 H, Stevens % (Auto) 13.0 H, Eos % (Auto) [...] [facility]. -[facility] was [facility] and the [...] 30 mins Charges/Coding Visit Charges Inpatient E&M: 50644 Subs Hosp L2 01/17/23 1508 <Electronically signed by Nina Wilder MD> Cosigner Signature (if applicable): CC: ~ Signed [facility] Work Phone: 1(941) 246-982604-15-[address] Wilder [facility] January 16, 2023 11:52am Note Date/Time January 16, 2023 10: 27am [facility] Health System Medical Records Department [address] [place] [address] Progress Note - Hospitalist 01/16/23 1026 MR#: [id number] Acct: [id number] Name: ANJEL ROSS Rep #:[id number] : 1950 72 From: Nina Wilder MD PCP: NILS CANTOR Status:ADM PAIGE Location: [address] Reason for Visit Reason for Visit: [...] Neut % (Auto) 47.5, Lymph % (Auto)36.4, Stevens % (Auto) 12.1 H, Eos % (Auto) [...] for their facility [facility] -PT recommends rehab/snf/tcu -Given mental health history [...] [facility]. -[facility] was [facility] and the [...] 30 mins Charges/Coding Visit Charges Inpatient E&M: 53036 Subs Hosp L2 01/16/23 1152 <Electronically signed by Nina Wilder MD> Cosigner Signature (if applicable): CC: ~ Signed [facility] Work Phone: 1(112) 460-864304-14-[address] Wilder [facility] January 15, 2023 9:43am Note Date/Time January 15, 2023 9:4 3am [facility] Health System Medical Records Department [address] [place] [address] Progress Note - Hospitalist 01/15/23 0941 MR#: [id number] Acct: [id number] Name: ANJEL ROSS Rep #:[id number] : 1950 72 From: Nina Wilder MD PCP: NILS CANTOR Status:ADM PAIGE Location: [place] [address] Reason for Visit Reason for Visit: Diagnoses [...] H, RDW Coeff of Ronna 13.2, Plt Pfuyl957, MPV 8.4, Immature Gran % (Auto) 1.600 H, Neut % (Auto) 49.3, Lymph % (Auto)34.4, Stevens % (Auto) 12.8 H, Eos % (Auto) [...] for their facility [facility] -PT recommends rehab/snf/tcu -Given mental [...] [facility]. -[facility] was [facility] and the [...] 20 mins Charges/Coding Visit Charges Inpatient E&M: 11612 Subs Hosp L1 01/15/23 0943 <Electronically signed by Nina Wilder MD> Cosigner Signature (if applicable): CC: ~ Signed [facility] Work Phone: 1(778) 755-807504-13-[address] Wilder [facility] January 14, 2023 1:37pm Note Date/Time January 14, 2023 8:3 9am [facility] Medical Records Department [address] [place] [address] Progress Note - Hospitalist 01/14/23 0838 MR#: [id number] Acct: [id number] Name: ANJEL ROSS Rep #:[id number] : 1950 72 From: Nina Wilder MD PCP: NILS CANTOR Status:ADM PAIGE Location: [place] [address] Reason for Visit Reason for Visit: Diagnoses [...] for their facility after [facility] -PT recommends rehab/snf/tcu -Given mental [...] [facility]. -He was reviewed there and the [...] 20 mins Charges/Coding Visit Charges Inpatient E&M: 23366 Subs Hosp L1 01/14/23 1337 <Electronically signed by Nina Wilder MD> Cosigner Signature (if applicable): CC: ~ Signed [facility] Work Phone: 1([phone]) 596-336004-12-[address] Wilder [facility] January 13, 2023 9:59am Note Date/Time January 13, 2023 9:5 9am [facility] Medical Records Department [address] [place] [address] [place] [address] Progress Note - Hospitalist 01/13/23 0956 MR#: [id number] Acct: [id number] Name: ANJEL ROSS Rep #:[id number] : 1950 72 From: Nina Wilder MD PCP: NILS CANTOR Status:ADM PAIGE Location: [place] [address] Reason for Visit Reason for Visit: Diagnoses [...] for their facility after [facility] -PT recommends rehab/snf/tcu -Given mental [...] [facility]. -He was reviewed there and the [...] 30 mins Charges/Coding Visit Charges Inpatient E&M: 53223 Subs Hosp L2 01/13/23 0959 <Electronically signed by Nina Wilder MD> Cosigner Signature (if applicable): CC: ~ Signed [facility] Work Phone: 1(478) 247-320004-11-[address] Wilder [facility] January 12, 2023 8:57am Note Date/Time January 12, 2023 8:5 7am [facility] Health System Medical Records Department [address] [place] [address] Progress Note - Hospitalist 01/12/23 0853 MR#: [id number] Acct: [id number] Name: ANJEL ROSS Rep #:[id number] : 1950 72 From: Nina Wilder MD PCP: NILS CANTOR Status:ADM PAIGE Location: [place] [address] Reason for Visit Reason for Visit: Diagnoses [...] % (Auto) 37.3 L, Lymph % (Auto)40.6, Stevens % (Auto) 17.9 H, Eos % (Auto) [...] for their facility [facility] -PT recommends rehab/snf/tcu -Given mental [...] [facility]. -He was reviewed there and the [...] 30 mins Charges/Coding Visit Charges Inpatient E&M: 75461 Subs Hosp L2 01/12/23 0857 <Electronically signed by Nina Wilder MD> Cosigner Signature (if applicable): CC: ~ Signed [facility] Work Phone: 1(592) 991-750604-10-[address] Wilder [facility] January 11, 2023 5:37pm Note Date/Time January 11, 2023 7:2 1am [facility] Medical Records Department [address] [place] [address] Progress Note - Hospitalist 01/11/23720 MR#: [id number] Acct: [id number] Name: ANJEL ROSS Rep #:[id number] : 1950 72 From: Nina Wilder MD PCP: NILS CANTOR Status:ADM PAIGE Location: [address] Reason for Visit Reason for Visit: [...] % (Auto) 44.8 L, Lymph % (Auto)35.5, Stevens % (Auto) 16.0 H, Eos % (Auto) [...] for their facility after his d/c from [facility] -PT recommends rehab/snf/tcu -Given mental health [...] [facility]. -He was reviewed there and the [...] 30 mins Charges/Coding Visit Charges Inpatient E&M: 62384 Subs Hosp L2 01/11/23 1737 <Electronically signed by Nina Wilder MD> Cosigner Signature (if applicable): CC: ~ Signed [facility] Work Phone: 1(415) 338-933504-09-2023 History and physical note Author Dr. Recio [facility] January 10, 2023 3:34pm Note Date/Time January 10, 2023 9:22 am [facility] Medical Records Department [address] [place] [address] H&P Exam - Hospitalist 01/10/23 0911 MR#: [id number] Acct: [id number] Name: ANJEL ROSS Rep #:[id number] : 1950 72 From: Kary Recio MD PCP: NILS CANTOR Status:ADM PAIGE [place] [facility] [place] HPI - General General Date of Admission: [...] valproic acid levels. He was transferred to [facility] where his symptoms were thought to [...] weakness and is for placement. [facility] Medical History Anxiety Benign essential HTN [...] DAILY supplement 01/10/23[History Last Taken Unknown] omega 1-rih-jfv-fish oil 1,000 mg (120 mg-180 mg) capsule [...] Neut % (Auto) 53.9, Lymph % (Auto)25.6, Stevens % (Auto) 16.6 H, Eos % (Auto) [...] Clarity Clear, Urine pH 6.0, Ur Specific [place] 1.015, Urine Protein 15 H, Urine Glucose [...] 4:01 EDT Reading Location ID and State: [facility] / [place] , Service support , Assessment & Plan [...] he had NPH and so was transferred [facility] recently. * He was reviewed there [...] confirmed from documentation he brought from [facility]. * Total dzkd-ep-cwpq time 17 minutes. Total time spent on evaluation and management of patient, reviewing chart, discussing plan with patient, discussion with nursing and ancillary staff as well as documentation: 60 mins Charges/Coding Visit Charges Inpatient E&M: 30645 Init Hosp L2 Procedures Hospitalists Procedures: 94466 Advncd Care Plan 30 Min 01/10/23 1534 <Electronically signed by Kary Recio MD> Cosigner Signature (if applicable): CC: Dr. Kary Recio MD; NISL CANTOR~ Signed [facility] Work Phone: 1(857) 369-489304-09-2023 Discharge summary Author Breana Avila [facility] January 10, 2023 9:31am Note Date/Time January 10, 2023 3:30 am [facility] Health System Medical Records Department [address] [place] [address] Emergency Department Summary 01/10/23 MR#: [id number] Acct: [id number] Name: ANJEL ROSS Rep #:[id number] : 1950 72 From: Hilario Malik MD PCP: NILS CANTOR Status:REG ER Location: ED ADDENDUM by Dr. Breana Avila DO on 01/10/23 at 0931 [facility] staff called into the ER to say that they cannot accept patient back to their facility as he is high risk for falls and too weak to go back to their facility it was felt he needed admitted and evaluated for prison facility placement. Case discussed with hospitalist to [...] in person neurology, he was sent to [facility] they excepted him, they did not think he had NPH but rather that his ataxia was related to his high valproate levels. They recommended he be on valproic acid 1000 mg 3 times daily, and Keppra 1500 mg twice daily for his epilepsy. Apparently he just arrived back to assisted living from [facility] past day. There is no other information available at this time. The patient denies having any focal complaints. He initially thought he was at [facility], but he was redirectable and [place] was his second guess. [facility] Medical History Anxiety Benign essential HTN [...] bismuth subsalicylate 262 mg/15 mL oral suspension ([place] Bismuth) 524 mg PO Q30- 60M PRN [...] PROSTATE 01/04/23 [History Last Taken 01/04/23] vitamins A,C,R-ceml-rxypiq 2,148 mcg-113 mg-45 mg-17.4 mg tablet (Eye [...] IV fluids while resting here overnight during shift mgr. His urinalysis is negative for infection and [...] a higher level of care like a prison facility and he states no that he [...] % (Auto) 53.9 Lymph % (Auto) 25.6 Stevens % (Auto) 16.6 H Eos % (Auto) [...] Color Urine Clarity Urine pH Ur Specific [place] Urine Protein Urine Glucose (UA) Urine Ketones [...] (Auto) Neut % (Auto) Lymph % (Auto) Stevens % (Auto) Eos % (Auto) Baso % (Auto) Absolute Neuts (auto) Absolute Lymphs (auto) Nucleated RBC % Macrocytosis Sodium Potassium Chloride Carbon Dioxide Anion Gap BUN Creatinine Estim Creat Clear Calc Est GFR (MDRD) Af Amer Est GFR (MDRD) Non-Af BUN/Creatinine Ratio Glucose Calcium Troponin I High Sens Urine Color Yellow Urine Clarity Clear Urine pH 6.0 Ur Specific [place] 1.015 Urine Protein 15 H Urine Glucose [...] 4:01 EDT Reading Location ID and State: [facility] / [place] , Service support , Rhythm Strip Rhythm Strip: Sinus Tach Rate: 105 Ectopy: None EKG Initial EKG: Attestation: I personally reviewed and interpreted this EKG as follows: Interpretation: No Acute Injury Pattern, Sinus Tachycardia and LAFB Prior EKG tracings: available for review Prior: Unchanged Discharge Plan Triage Chief Complaint: Weakness ED Provider: Kavitha,Hilario Dx/Rx/DC Orders Clinical Impression: Encounter for medical [...] capsule 10 mg PO QHS bismuth subsalicylate [[place] Bismuth] 262 mg/15 mL suspension 524 mg [...] offered higher level of care such as prison, and he declined/refuses. Ambulatory in ED with a walker at baseline. Disposition Disposition: Home, Self Care What to do if you have Problems For any increased pain, shortness of breath, bleeding, nausea or vomiting, chestpain, or any unexpected problems, contact your Primary Care Provider. Call [facility] ([phone]) or report to the closest Emergency Room. Call 911 if necessary. 01/10/23 0711 <Electronically signed by Hilario Malik MD> Cosigner Signature (if applicable): CC: NILS CANTOR ~ Signed [facility] Work Phone: 1(823) 946-139204-09-2023 Discharge summary Author Breana Avila [facility] January 10, 2023 9:31am Note Date/Time January 10, 2023 3:30 am [facility] Health System Medical Records Department [address] [place] [address] Emergency Department Summary 01/10/23 MR#: [id number] Acct: [id number] Name: JESSICAANJEL Mcbride Rep #:[id number] : 1950 72 From: Hilario Malik MD PCP: NILS CANTOR Status:REG ER Location: ED ADDENDUM by Dr. Breana Avila DO on 01/10/23 at 0931 [facility] staff called into the ER to say that they cannot accept patient back to their facility as he is high risk for falls and too weak to go back to their facility it was felt he needed admitted and evaluated for prison facility placement. Case discussed with hospitalist to [...] in person neurology, he was sent to [facility] they excepted him, they did not think he had NPH but rather that his ataxia was related to his high valproate levels. They recommended he be on valproic acid 1000 mg 3 times daily, and Keppra 1500 mg twice daily for his epilepsy. Apparently he just arrived back to [facility] from [facility] past day. There is no other information available at this time. The patient denies having any focal complaints. He initially thought he was at [facility], but he was redirectable and [place] was his second guess. [facility] Medical History Anxiety Benign essential HTN [...] bismuth subsalicylate 262 mg/15 mL oral suspension ([place] Bismuth) 524 mg PO Q30- 60M PRN [...] PROSTATE 01/04/23 [History Last Taken 01/04/23] vitamins A,C,O-gsvt-auzjpv 2,148 mcg-113 mg-45 mg-17.4 mg tablet (Eye [...] IV fluids while resting here overnight during shift mgr. His urinalysis is negative for infection and [...] a higher level of care like a prison facility and he states no that he [...] % (Auto) 53.9 Lymph % (Auto) 25.6 Stevens % (Auto) 16.6 H Eos % (Auto) [...] Color Urine Clarity Urine pH Ur Specific [place] Urine Protein Urine Glucose (UA) Urine Ketones [...] (Auto) Neut % (Auto) Lymph % (Auto) Stevens % (Auto) Eos % (Auto) Baso % (Auto) Absolute Neuts (auto) Absolute Lymphs (auto) Nucleated RBC % Macrocytosis Sodium Potassium Chloride Carbon Dioxide Anion Gap BUN Creatinine Estim Creat Clear Calc Est GFR (MDRD) Af Amer Est GFR (MDRD) Non-Af BUN/Creatinine Ratio Glucose Calcium Troponin I High Sens Urine Color Yellow Urine Clarity Clear Urine pH 6.0 Ur Specific [place] 1.015 Urine Protein 15 H Urine Glucose [...] capsule 10 mg PO QHS bismuth subsalicylate [[place] Bismuth] 262 mg/15 mL suspension 524 mg [...] offered higher level of care such as prison, and he declined/refuses. Ambulatory in ED with a walker at baseline. Disposition Disposition: Home, Self Care What to do if you have Problems For any increased pain, shortness of breath, bleeding, nausea or vomiting, chestpain, or any unexpected problems, contact your Primary Care Provider. Call [facility] ([phone]) or report to the closest Emergency Room. Call 911 if necessary. 01/10/23710 <Electronically signed by Hilario Malik MD> Cosigner Signature (if applicable): CC: NILS CANTOR ~ Signed [facility] Work Phone: 1(966) 658-509004-08-2023 NoteHNO ID: [id number] Author: Anitha Burnette RN Service: Nursing Author Type: Registered Nurse Type: Nursing Progress Note Filed: 01/09/2023 2:00 PM Note Text: Updated patient's sister, Cha, on status and discharge tonight.[facility]04-07-2023 NoteHNO ID: [id number] Author: Adán De MD Service: Neurology General Author Type: Physician Type: Plan of Care Filed: 01/08/2023 2:40 PM Note Text: Staff Addendum: I have seen the patient, performed a neurological examination and reviewed the records personally with the resident/midlevel above and agree with the documentation. Please see their note for details. 72 year old male with chronic gait difficulties who is presenting to [facility] as a transfer from [facility] d/t concerns of NPH. Patient had [...] service post discharge Adán De [facility] NoteHNO ID: [id number] Author: Lorene Ortiz MD Service: Hospital Medicine [...] Date: 01/04/2023 Images were obtained outside of [facility] OT-Chest 1 View IMPORT Result Date: 01/04/2023 Images were obtained outside of [facility] Most recent EKG normal sinus rhythm [...] HTN, and KYA He was admitted to [facility] 5 days prior due to [...] Ross DATE: 01/08/2023 TIME: 12:14 [facility]02-13-[address] Sherman [facility] November 16, 2022 6:41pm Note Date/Time November 16, 2022 6:41pm [facility] Medical Records Department [address] [place] [id number] Emergency Department Summary 11/16/22 MR#: [id number] Acct: [id number] Name: ANJEL ROSS Rep #:[id number] : 1950 72 From: Tate Sherman MD PCP: ZACKERY De Luna Status: PRE ER Location: ED HPI History of Present Illness Chief Complaint: Male Pain/Injury Narrative Narrative: Patient presents with scrotal bleeding from the ECF. Patient has no complaints. Seems the bleeding had subsided upon ED presentation. [facility] Medical History Anxiety Benign essential HTN [...] bismuth subsalicylate 262 mg/15 mL oral suspension ([place] Bismuth) 524 mg PO Q30- 60M PRN [...] capsule 10 mg PO QHS bismuth subsalicylate [[place] Bismuth] 262 mg/15 mL suspension 524 mg [...] (Reason: Congestion) Primary Care Provider: Becka Hines PHYSICIAN AIDE Referrals: Becka Hines PHYSICIAN AIDE, PHYSICIAN AIDE-C [Primary Care Provider] - Activity Restrictions/Additional Instructions: [...] your Primary Care Provider. Call [facility] ([phone]) or report to the closest Emergency Room. Call 911 if necessary. 11/16/22 184 <Electronically signed by Tate Sherman MD> Cosigner Signature (if applicable): CC: PHYSICIAN AIDE-C Becka Hines ~ Signed [facility] Work Phone: 1(765) 950-516312-27-2022 Miscellaneous Notes* Telephone Encounter - Yury Gerber [...] Pharmacy Name: [facility] Pharm[facility] Number: [id number] Generic/ brand: 30 or 90 day supply requested: 90 Last appointment: 03/06/22 Next Appointment: none Patient of Dr. Chung documented in [facility]22 NoteHNO ID: [id number] Author: Mateo Benton MD Service: ? Author Type: Physician Type: Progress Notes Filed: 07/31/2022 9:27 AM Note Text: Subjective: Patient is status post a colonoscopy completed at [facility] on 07/06/2022. Patient was noted [...] need to have another colonoscopy in 5 years.[facility]10-[facility] History of Present illness Narrative* Mateo Benton MD - 07/31/2022 9:23 AM EDT Subjective: Patient is status post a colonoscopy completed at [facility] on 07/06/2022. Patient was noted [...] colonoscopy in 5 years. documented in this encounterWilson [facility]10-11-2022 Miscellaneous Notes* Telephone Encounter - Georgie Huitron - 07/14/2022 2:35 PM EDT They will call back to schedule.Georgie Huitron * Telephone Encounter - Elizabeth Ruth LPN - 07/14/2022 1:26 PM EDT Please call patient to schedule a virtual or office visit to view colonoscopy results. Thank you. Anjel# [phone] * Telephone Encounter - Silvia Huitron - 07/14/2022 1:05 PM EDT Patient called requesting results from colonoscopy. documented in this encounterWilson [facility] Hospital07-12-2022 NoteHNO ID: [id number] Author: Madelin Ferguson PA-C Service: ? Author Type: Physician Water Taxi Driver Type: Progress Notes Filed: 04/27/2022 9:34 AM [...] colonoscopy 03/26/[address] Anjel Nagy at [facility]. Patient was noted to have [...] W/COLLJ SPEC WHEN PFRMD 03/25/16 Colonoscopy outpt [facility] - COLSC FLX W/REMOVAL LESION BY [...] mg by mouth daily at bedtime. - Ezylb-4-PKT-EPA-Fish Oil (FISH OIL) 1,000 mg (120 mg-180 [...] chloride (KLOR-CON) 20 mEq (more content not included)...[facility]06-10-2022 Miscellaneous Notes* Telephone Encounter - Gerri [...] Talley RN * Telephone Encounter - Imani Raymondkennedy - 03/13/2022 11:09 AM EDT Medication Concern Person Calling Silvia Rehman from [facility] Name of medication Depakote XR. Concern with medication Nurse advised pt is having difficulty swallowing pill and since XR she can't crush. Nurse is asking if can get non XR or liquid so it's not difficult for pt? Patient of Dr. Chung documented in this encounterWilson Memorial Hospital06-03-2022 NoteHNO ID: [id number] Author: Nils Marie APRN.SILVER SERVICE WAITER Service: ? Author Type: Nurse Practitioner Type: Progress Notes Filed: 03/10/2022 9:06 AM Note Text:[facility]-2022 NoteHNO ID: [id number] Author: Nils Marie APRN.SILVER SERVICE WAITER Service: ? Author Type: Nurse Practitioner Type: Progress Notes Filed: 03/10/2022 9:01 AM Note Text: [facility] VIRTUAL VISIT HISTORY OF PRESENT ILLNESS: Anjel Ross is a 71 year old male who is diagnosed with seizures, and presents today for virtual visit. They are an established patient of Dr. hCung'kristine and was last seen on 11/11/2020. Seizures: None that he can remember Last reported GTC around 08/2020. AED's: LEV 1500mg BID VPA 1000mg TID Pregabalin 200mg TID In other health,stable for what he can tell me and staff around him. Occupation: Retired. Lives in assisted living place in [place], [place] Driving: no Mood: ok Memory: poor [...] mg by mouth daily at bedtime. - Xqduo-2-SUA-EPA-Fish Oil (FISH OIL) 1,000 mg (120 mg-180 [...] AGE 6 - COLONOSCOP W/ OR W/O BRS SPEC 09/11/2005 Colonoscopy - COLONOSCOP W/ OR W/O [facility] SPEC 12/06/14 Colonoscopy - COLONOSCOP W/ OR W/O BRS SPEC 03/25/16 Colonoscopy outpt [facility] - COLONS W/REM POLYP HT BX 03/26/2017 - EG (more content not included)...[facility]06-03-20[facility] History of Present illness Narrative* Nils Marie, FRANCINE.SILVER SERVICE WAITER - 03/06/2022 2:10 PM EDT [facility] VIRTUAL VISIT HISTORY OF PRESENT [...] Retired. Lives in assisted living place in [place], [place] Driving: no Mood: ok Memory: poor [...] 10 mg by mouth daily at bedtime. Buwkt-4-LDQ-EPA-Fish Oil (FISH OIL) 1,000 mg (120 mg-180 [...] CIRCUMCISION,OTHR AGE 6 COLONOSCOP W/ OR W/O [facility] SPEC 09/11/2005 Colonoscopy COLONOSCOP W/ OR W/O [facility] SPEC 12/06/14 Colonoscopy COLONOSCOP W/ OR W/O [facility] SPEC 03/25/16 Colonoscopy outpt [facility] COLONS W/REM POLYP HT BX 03/26/2017 [...] counseling on seizures and medications. Nils Marie APRN.KRISTEN March 09, 2022 * Nils Marie APRN.CNP - 03/06/2022 2:10 PM EDT documented in this encounterWilson Memorial Hospital05-26-2022 Miscellaneous Notes* Telephone Encounter - Miquel Obregon APRN.CNP - 02/26/2022 1:33 PM EDT The following approved medication requests have been transmitted electronically. Signed Prescriptions Disp Refills levETIRAcetam (KEPPRA) 750 mg tablet 120 tablet 0 Si TABLETS (1,500MG) BY MOUTH 2 TIMES A DAY DX: / NURSE TO REORDER CHERIE: No Authorizing Provider: MIQUEL OBREGON APRN.CNP documented in this encounterWilson Memorial Hospital05-06-2022 Miscellaneous Notes* Telephone Encounter - Miquel Obregon APRN.CNP - 02/06/2022 10:12 AM EDT The following approved medication requests have been transmitted electronically. Signed Prescriptions Disp Refills divalproex ER (DEPAKOTE ER) 500 mg 24 hr tablet 180 tablet 0 Sig: Take 2 tablets by mouth three times daily. CHERIE: No Authorizing Provider: MIQUEL OBREGON documented in this [facility]04-26-2016 History of Past illness Narrative* Problem Noted Date Resolved Date Obesity due to excess calories 01/28/2016 0 02/04/2017 Family history of ischemic heart disease 016 10/02/2020 Colon cancer 12/31/2014 02/07/2015 Overview: Laparoscopic cholecystectomy, laparoscopic right hemicolectomy. Dr. Anjel Nagy [facility] 01/21/15 Special screening for malignant neoplasms, colon 12/06/2014 12/06/2014 Occult blood in stools 11/22/2014 5 Gout 08/10/2014 08/24/2015 Medicare annual wellness visit, initial 11/09/19 14 11/20/2019 Convulsions 11/06/2005 10/02/2020 documented as of this encounter (statuses as of 02/06/2022) [facility] History of Past illness Narrative* Problem Noted Date Resolved Date Obesity due to excess calories 01/28/2016 0 02/04/2017 Family history of ischemic heart disease 016 10/02/2020 Colon cancer 12/31/2014 02/07/2015 Overview: Laparoscopic cholecystectomy, laparoscopic right hemicolectomy. Dr. Anjel Nagy [facility] 01/21/15 Special screening for malignant neoplasms, colon 12/06/2014 12/06/2014 Occult blood in stools 11/22/2014 5 Gout 08/10/2014 08/24/2015 Medicare annual wellness visit, initial 11/09/19 14 11/20/2019 Convulsions 11/06/2005 10/02/2020 documented as of this encounter (statuses as of 03/10/2022) [facility] History of Past illness Narrative* Problem Noted Date Resolved Date Obesity due to excess calories 01/28/2016 0 02/04/2017 Family history of ischemic heart disease 016 10/02/2020 Colon cancer 12/31/2014 02/07/2015 Overview: Laparoscopic cholecystectomy, laparoscopic right hemicolectomy. Dr. Anjel Nayg [facility] 01/21/15 Special screening for malignant neoplasms, colon 12/06/2014 12/06/2014 Occult blood in stools 11/22/2014 5 Gout 08/10/2014 08/24/2015 Medicare annual wellness visit, initial 11/09/19 14 11/20/2019 Convulsions 11/06/2005 10/02/2020 documented as of this encounter (statuses as of 03/13/2022) [facility] History of Past illness Narrative* Problem Noted Date Resolved Date Obesity due to excess calories 01/28/2016 0 02/04/2017 Family history of ischemic heart disease 016 10/02/2020 Colon cancer 12/31/2014 02/07/2015 Overview: Laparoscopic cholecystectomy, laparoscopic right hemicolectomy. Dr. Anjel Nagy [facility] 01/21/15 Special screening for malignant neoplasms, colon 12/06/2014 12/06/2014 Occult blood in stools 11/22/2014 5 Gout 08/10/2014 08/24/2015 Medicare annual wellness visit, initial 11/09/19 14 11/20/2019 Convulsions 11/06/2005 10/02/2020 documented as of this encounter (statuses as of 07/14/2022) [facility] History of Past illness Narrative* Problem Noted Date Resolved Date Obesity due to excess calories 01/28/2016 0 02/04/2017 Family history of ischemic heart disease 016 10/02/2020 Colon cancer 12/31/2014 02/07/2015 Overview: Laparoscopic cholecystectomy, laparoscopic right hemicolectomy. Dr. Anjel Nagy [facility] 01/21/15 Special screening for malignant neoplasms, colon 12/06/2014 12/06/2014 Occult blood in stools 11/22/2014 5 Gout 08/10/2014 08/24/2015 Medicare annual wellness visit, initial 11/09/19 14 11/20/2019 Convulsions 11/06/2005 10/02/2020 documented as of this encounter (statuses as of 07/31/2022) [facility] History of Past illness Narrative* Problem Noted Date Resolved Date Obesity due to excess calories 01/28/2016 0 02/04/2017 Family history of ischemic heart disease 016 10/02/2020 Colon cancer 12/31/2014 02/07/2015 Overview: Laparoscopic cholecystectomy, laparoscopic right hemicolectomy. Dr. 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)- Primary documented in this encounter [facility] noteNo assessment information availableWKettering Health [facility] Work Phone: Evaluation note* Diagnosis Personal history of colon cancer- Primary Personal history of malignant neoplasm of large intestine History of colonic polyps Personal history of colonic polyps documented in this encounter [facility] note* Diagnosis Onset Date Resolution Status Ataxia acute Hypokalemia acute Serum sodium valproate above therapeutic range acute Encounter for medical screening examination acute Weakness acute [facility] Work Phone: Evaluation note* Diagnosis Onset Date Resolution Status Ataxia acute Hypokalemia resolved Serum sodium valproate above therapeutic range resolved Encounter for medical screening examination acute Weakness acute [facility] Work Phone: Hospital Discharge instructions Additional Instructions You have a very small area of scrotal bleeding if this happens again put pressure on the scrotum for 15 minutes.[facility] Work Phone: Hospital Discharge instructions Additional Instructions Imaging of brain/head and low back and negative for nothing acute, old L1 compression fracture noted and stable.[facility] Work Phone: Hospital Discharge instructions Additional Instructions Patient again has a normal work-up including a normal valproic acid level. He was offered higher level of care such as prison, and he declined/refuses. Ambulatory in ED with a walker at baseline.[facility] Work Phone: Reason for referral (narrative)No reason for referral information availableWKettering Health [facility] Work Phone: Summary Purpose Family History No Family History Records Found Relationship Condition Age at Onset Recorded Date/T anh mother Chronic obstructive pulmonary disease Unk nown Coronary artery disease Unknown father Malignant neoplasm Unknown Cardiac disease Unknown Myocardial infarction Unknown aunt Coronary artery disease Unknown Advance Directives No Advanced Directives Records FoundDocuments on File Type Date Recorded 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 Advance Directive(s) 03/18/2020 12:37 PM Advance Directive(s) 02/21/2020 1:12 PM Advance Directive(s) 12/08/2019 4:35 PM Advance Directive(s) 05/05/2016 10:27 AM Advance Directive(s) 12/27/2015 9:39 AM Advance Directive(s) 12/13/2015 10:23 AM Advance Directive Response Recorded Date/ Time Advance Directives Yes May 27, 2018 9:42am Living Will Yes July 01, 2022 1:39pm Power of Cooker Meal Yes June 1:39pm Name of Medical Power of Cooker Meal MARLY CONTI July 01, 2022 1:39pm Documents on File Type Date Recorded 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 Advance Directive(s) 05/05/2016 10:27 AM Advance Directive Response Recorded Date/ Time Name of Medical Power of Cooker Meal MARLY CONTI July 01, 2022 12:39pm Advance Directives Yes May 27, 2018 8:42am Living Will No August 11 3:00pm Power of Cooker Meal No August 11, 2022 3:00pm Advance Directive Response Recorded Date/ Time Name of Medical Power of Cooker Meal SUSHMA MORALES November 16, 2022 6:13pm Advance Directives Yes May 27, 2018 8:42am Living Will Yes November 16 6:13pm Power of Cooker Meal Yes November 16, 2022 6:13pm Advance Directive Response Recorded Date/ Time Name of Medical Power of Cooker Meal SUSHMA MORALES November 16, 2022 7:13pm Name of Medical Power of Cooker Meal unknown December 31, 2022 6:02am Advance Directives Yes May 27, 2018 9:42am Living Will Yes December 31, 2022 6:02am Power of Cooker Meal Yes December 31 6:02am Advance Directive Response Recorded Date/ Time Name of Medical Power of Cooker Meal SUSHMA MORALES November 16, 2022 7:13pm Name of Medical Power of Cooker Meal unknown December 31, 2022 6:02am Name of Medical Power of Cooker Meal DREA CONTI January 04, 2023 8:30pm Name of Medical Power of Cooker Meal ? January 10, 2023 1:42am Advance Directives Yes May 27, 2018 9:42am Living Will Yes January 10, 2023 1:42am Power of Cooker Meal Yes January 10 1:42am Advance Directive Response Recorded Date/ Time Name of Medical Power of Cooker Meal SUSHMA MORALES November 16, 2022 7:13pm Name of Medical Power of Cooker Meal unknown December 31, 2022 6:02am Name of Medical Power of Cooker Meal DREA CONTI January 04, 2023 8:30pm Name of Medical Power of Cooker Meal Drea Conti (sushma) January 10, 2023 10:23am Advance Directives Yes May 27, 2018 9:42am Living Will Yes January 10, 2023 10:23am Power of Cooker Meal Yes January 10 10:23am Advance Directive Response Recorded Date/ Time Advance Directives Yes July 12, 2020 10:01am Living Will Yes January 10, 2023 10:23am Power of Cooker Meal Yes January 10 10:23am Advance Directive Response Recorded Date/ Time Advance Directives Yes July 12, 2020 9:01am Living Will Yes January 10, 2023 9:23am Power of Cooker Meal Yes January 10 9:23am Advance Directive Response [...] for medical screening examination Weakness Chief Complaint LONGTERM LABWORK LONGTERM LABWORK LAB WORK LONGTERM LAB WORK Chief Complaint LONGTERM LAB WOR K LABWORK Chief Complaint LONGTERM LAB WOR K LONGTERM LAB WORK LABWORK Chief Complaint LONGTERM LAB WOR K LABWORK LONGTERM LAB WORK Chief Complaint LONGTERM LAB WOR K LABWORK LONGTERM LAB WORK LABWORK Chief Complaint LONGTERM LAB WOR K LABWORK LONGTERM LAB WORK LABWORK LONGTERM LAB WORK Chief Complaint LONGTERM LAB WOR K LABWORK LONGTERM LAB WORK LABWORK LONGTERM LAB WORK LABWORK Chief Complaint LONGTERM LAB WOR K LABWORK LONGTERM LAB WORK LABWORK LONGTERM LAB WORK LONGTERM LAB WORK LABWORK Chief Complaint LONGTERM LAB WOR K LABWORK LONGTERM LAB WORK LABWORK LONGTERM LAB WORK LONGTERM LAB WORK LABWORK LONGTERM LAB WORK Chief Complaint LONGTERM LAB WOR K LABWORK LONGTERM LAB WORK LONGTERM LAB WORK LABWORK LONGTERM LAB WORK LONGTERM LAB WORK Chief Complaint LABWORK LONGTERM LAB WORK LONGTERM LAB WORK LABWORK LONGTERM LAB WORK LONGTERM LAB WORK LONGTERM LAB WORK LABWORK Chief Complaint Admit Date [...] LAB WORK January 02, 2025 5:00 am LONGTERM LAB WORK January 03, 2025 5: 00am [...] 5:00am PVD February 13, 2025 9:06a m LONGTERM LAB WORK February 28, 2025 5:0 0am LONGTERM LAB WORK April 03, 2025 5:0 0am LONGTERM LAB WORK April 24, 2025 4: 00am LONGTERM LAB WORK May 01, 2025 6: 05am LONGTERM LAB WORK May 08, 2025 4 :00am Reason for Visit Admit Date Bilateral lower extremity edema January 312024 11:04am PVD (peripheral vascular disease) January 31, 2025 11:04am Additional Source Comments (unrecognized sect ion and content) No Status Records FoundNo Status Records FoundNo Status Records FoundNo Status Records FoundNo Status Records Found INFORMATION SOURCE (unrecogn ized section and content) DATE CREATED AUTHOR 03/23/2018 [facility] DATE CREATED AUTHOR AUTHOR'S ORGANIZ ATION 08/01/2022 [facility] DATE CREATED AUTHOR AUTHOR'S ORGANIZ ATION 01/16/2023 [facility] DATE CREATED AUTHOR AUTHOR'S ORGANIZ ATION 04/27/2024 [facility] DATE CREATED AUTHOR AUTHOR'S ORGANIZ ATION 07/15/2025 [facility] Source Comments (unrecognize d section and content) In the event this informatio n is protected by the Federal Confidentiality of Alcohol and Drug Abuse Patient Records regulations: The Federal rules restrict any use of the information to criminally investigate or prosecute any alcohol or drug abuse patient.[facility] the event this information is protected by the Federal Confidentiality of Alcohol and Drug Abuse Patient Records regulations: The Federal rules restrict any use of the information to criminally investigate or prosecute any alcohol or drug abuse patient.[facility] the event this information is protected by the Federal Confidentiality of Alcohol and Drug Abuse Patient Records regulations: The Federal rules restrict any use of the information to criminally investigate or prosecute any alcohol or drug abuse patient.[facility] the event this information is protected by the Federal Confidentiality of Alcohol and Drug Abuse Patient Records regulations: The Federal rules restrict any use of the information to criminally investigate or prosecute any alcohol or drug abuse patient.[facility] the event this information is protected by the Federal Confidentiality of Alcohol and Drug Abuse Patient Records regulations: The Federal rules restrict any use of the information to criminally investigate or prosecute any alcohol or drug abuse patient.[facility] the event this information is protected by the Federal Confidentiality of Alcohol and Drug Abuse Patient Records regulations: The Federal rules restrict any use of the information to criminally investigate or prosecute any alcohol or drug abuse patient.[facility] Hospital[facility] the event this information is protected by the Federal Confidentiality of Alcohol and Drug Abuse Patient Records regulations: The Federal rules restrict any use of the information to criminally investigate or prosecute any alcohol or drug abuse patient.[facility] Reason for Visit (unrecogniz ed section and content) Reason Comments Refill Request Reason Comments Follow Up Refill Request Seizures Reason Comments Medication Question Depakote XR Reason Comments Results Reason Comments Follow Up Review colonoscopy r esults Reason Onset Date Comments Refill Request 09/29/2022 Care Teams (unrecognized sec tion and content) Linux Server Administrator Relationship Specialty Start Date End Date Maddie Cantor [address] [place] [id number] PCP - General Internal Medicine 02/21/20 [employer] Server Administrator Relationship Specialty Start Date End Date Maddie Cantor [address] [place] [address] PCP - General Internal Medicine 02/21/20 Linux Server Administrator Relationship Specialty Start Date End Date Maddie Cantor [address] [place] [address] PCP - General Internal Medicine 02/21/20 Linux Server Administrator Relationship Specialty Start Date End Date Nils Cantorjune Downey [address] [place] [address] PCP - General Internal Medicine 02/21/20 Team Status: Active Member Role Status Dates Becka Hines PHYSICIAN AIDE, PHYSICIAN AIDE-C Family Provider Active No Primary Care Physician Primary Care Provider Active Team Status: Inactive Member Role Status Dates Becka Hines PHYSICIAN AIDE, PHYSICIAN AIDE-C Primary Care Provider Act ashish Dr. Donovan Skaggs MD Attending Provider, Emergency Provi tsering Active Team Status: Inactive Member Role Status Dates Dr. Tate Sherman MD Emergency Provider Active No Primary Care Physician Primary Care Provider Active Team Status: Active Member Role Status Dates Becka Hines PHYSICIAN AIDE, PHYSICIAN AIDE-C Family Provider Active Dr. Maddie MACIEL, DO [...] Active Member Role Status Dates Becka Hines PHYSICIAN AIDE, PHYSICIAN AIDE-C Family Provider Active NILS CANTOR Primary Care [...] Active Member Role Status Dates Becka Hines PHYSICIAN AIDE, PHYSICIAN AIDE-C Family Provider Active Out of [facility] Doctor Primary Care Provider Active Team Status: Inactive Member Role Status Dates Out of [facility] Doctor Primary Care Provider Active [facility] Attending Provider Acti ve Team Status: Inactive Member Role Status Dates Out of [facility] Doctor Primary Care Provider Active Dr. Avani MACIEL MD Attending Provider Active Team Status: Active Member Role Status Dates Out of [facility] Doctor Primary Care Provider Active Dr. Avani MACIEL MD Attending Provider Active Team Status: Inactive Member Role Status Dates Out of [facility] Doctor Primary Care Provider Active Dr. Avani MACIEL MD Attending Provider, Referring Provider Active Team Status: Active Member Role Status Dates Becka Hines PHYSICIAN AIDE, PHYSICIAN AIDE-C Family Provider Active Dr. Avani Eduardo MD Primary Care Provider Active Team Status: Inactive Member Role Status Dates Out of Town Doctor Primary Care Provider Active Start: September [...] BE BASED ON THE PRIMARY CLINICAL RECORDS. [facility] [employer] [facility] provides no warranty or guarantee of the accuracy or completeness of information in this document.
[2025-07-26 09:24] LABS: Hematocrit 39.9 % (40-54); Hemoglobin 13.5 g/dL (13.0-16.5); Mean Corp Hgb Conc 33.8 g/dL (32-36); Mean Corpuscular Volume 92.8 fL (80-94); Mean Platelet Vol. 9.2 fl (6.2-12.0); Platelet Count 206 K/mm3 (150-450); RBC Distribution Width CV 13.2 % (11.6-14.6); RBC Distribution Width SD 45.0 fl (35.1-43.9); Red Blood Count 4.30 M/mm3 (4.6-6.2); White Blood Count 6.5 K/mm3 (4.4-11.0)
[2025-07-26 09:52] LABS: Anion Gap 13 (5-15); BUN 7 mg/dL (4-19); BUN/Creat Ratio 9.3 RATIO (10-20); Calcium,Total 8.7 mg/dL (7.6-11.0); Carbon Dioxide 26.4 mmol/L (21.0-32.0); Chloride 98 mmol/L (98-108); Glucose 154 mg/dL (70-99); Magnesium 2.1 mg/dL (1.5-2.2); Potassium 3.8 mmol/L (3.3-5.1)
== END ==
LOC: OLS.SW 05:00
PROVIDERS: PCP Internal Medicine; Visit Provider Internal Medicine
DX: E11.9 Type 2 diabetes mellitus without complications (principal); E03.9 Hypothyroidism, unspecified; I10 Essential (primary) hypertension
CPT/HCPCS: 36415; 80048; 83735; 84443; 85027

== ENCOUNTER → 2025-08-23 | Outpatient (REF) | payer MEDICARE, MEDICAID, SELFPAY ==
[2025-08-23 10:22] LABS: Hematocrit 39.7 % (40-54); Hemoglobin 13.3 g/dL (13.0-16.5); Mean Corp Hgb Conc 33.5 g/dL (32-36); Mean Corpuscular Volume 94.5 fL (80-94); Mean Platelet Vol. 9.5 fl (6.2-12.0); Platelet Count 201 K/mm3 (150-450); RBC Distribution Width CV 13.5 % (11.6-14.6); RBC Distribution Width SD 46.4 fl (35.1-43.9); Red Blood Count 4.20 M/mm3 (4.6-6.2); White Blood Count 6.7 K/mm3 (4.4-11.0)
[2025-08-23 10:43] LABS: Magnesium 2.4 mg/dL (1.5-2.2)
[2025-08-23 10:44] LABS: Anion Gap 12 (5-15); BUN 12 mg/dL (4-19); BUN/Creat Ratio 14.7 RATIO (10-20); Calcium,Total 9.0 mg/dL (7.6-11.0); Carbon Dioxide 28.0 mmol/L (21.0-32.0); Chloride 95 mmol/L (98-108); Glucose 192 mg/dL (70-99); Potassium 4.2 mmol/L (3.3-5.1)
== END ==
LOC: OLS.SW 07:35
PROVIDERS: PCP Internal Medicine; Visit Provider Internal Medicine
DX: G40.909 Epilepsy, unspecified, not intractable, without status epilepticus (principal); I10 Essential (primary) hypertension; Z79.899 Other long term (current) drug therapy
CPT/HCPCS: 36415; 80048; 83735; 85027

== ENCOUNTER → 2025-09-11 | Outpatient (REF) | payer MEDICARE, MEDICAID, SELFPAY ==
--- OUTSIDE RECORDS SUMMARY | 2025-09-11 03:22 | XMS RPT_ITS | CCD ---
Author Organization [facility] Care Team Providers Care Loading And Unloading Supervisor Name Role Phone MEG JOE Unavailable Unavailable MEG JOE Unavailable Unavailable [facility] Unavailable Unavailable Maddie Cantor Primary Care Provider [phone] Maddie Cantor Primary Care Provider NILS MARIE Attending Unavailable MADDIE CANTOR Primary Care Unavailable MADELIN FERGUSON Attending Unavailable MADDIE CANTOR Referring Unavailable MADDIE CANTOR Primary Care Unavailable MATEO BENTON Attending Unavailable MATEO BENTON Referring Unavailable MADDIE CANTOR Primary Care Unavailable Maddie Cantor Primary Care Provider Dr. Maddie Scott Primary Care Provider U Dr. Hilario Conrad Emergency Provider Dr. Carrie Hooper Admit Provider [phone] Carrie Hooper Attending Provider Dr. Carrie Hooper Other Provider Dr. Chino Cannon Attending Provider Unavailable Dr. Chino Cannon Other Provider Unavailable MADDIE CANTOR Primary Care Unavailable LORENE ORTIZ Attending Unavailable HILARIO MALIK Referring Unavailab KERON Christensen Admitting Unavailable MICHELINE HUBER Consulting Unavailable NILS CANTOR Primary Care Provider [phone] Dr. Kary Recio Admit Provider Dr. Kary Recio Other Provider [phone] Nina Wilder Attending Provider [phone] [place], Dr. Nina Other Provider Dr. Kary Recio Attending Provider STANTON ANDREWS Attending Unavailable STANTON ANDREWS Attending Unavailable STANTON ANDREWS Attending Unavailable STANTON ANDREWS Attending Unavailable [facility] Doctor, Out of Primary Care Provider Papa Eduardo MD, Dr. Varma Attending Provider Unavailelizabeth Eduardo MD, Dr. Varma Primary Care Provider UnaKourtney Rob Attending Provider Jayce MUNZO, Dr. Varma Referring Provider Unavailelizabeth Eduardo MD, Dr. Varma Primary Care Provider Surjit Eduardo MD, Dr. Varma Attending Provider Unavailelizabeth SUERO, Kourtney Referring Provider [phone] Génesis MUNOZ, Dr. Schulte Attending Provider Jayce MUNOZ, Dr. Varma Primary Care Provider Surjit Eduardo MD, Dr. Varma Referring Provider UnavailKourtney Antonio Attending Provider [phone] Avani Eduardo MD Attending Provider Unavailelizabeth Eduardo MD, Dr. Varma Referring Provider Unavailelizabeth Eduardo MD, Dr. Varma Primary Care Physician Obey Eduardo MD, Dr. Varma Attending Physician Unavail able Gudla, Avani Primary Care Unavailable Kourtney Farrar Referring Unavailable Eris Capps Attending Unavailable Rolandla Avani MACIEL Attending Unavailable Gudla, Avani Primary Care Unavailable Gudla Noemi MACIELyothi Referring Unavailable Gudla Avani MACIEL Attending Unavailable [facility] Doctor, Out of Primary Care Unavailable Gudla, Avani Primary Care Unavailable Gudla Avani MACIEL Attending Unavailable Gudla, Avani Primary Care Unavailable Gudla Avani MACIEL Attending Unavailable Gudla Avani MACIEL Attending Unavailable Gudla, [...] OLS, Avani Attending Unavailable Gudla OLS, Avani Referring Unavailable Gudla OLS, Avani Attending Unavailable Gudla, Avani Primary Care Unavailable Gudla, Avani Primary Care Unavailable Gudla, [...] nickel; Translations: [NICKEL] Drug Allergy 3 Rash [facility] Repository (20 sources) OXcarbazepine; Translations: [OXCARBAZEPINE] Drug Allergy 5 cant remember rxn [facility] Repository (10 sources) salicylic acid; Translations: [SALICYLATES] Drug Allergy 5 [facility] Repository (20 sources) Aspirin Drug Allergy 2 cant remember rxn [facility] (1 source) Aspirin Drug Allergy 5 [facility] Repository Medications Current Medications Medication Drug Class(es) [...] oral tablet (20 sources) Bisphosphonate Start: 12-07-2016 Comment on above: Take 70 mg by mouth one time a week. allopurinol 100 mg oral tablet (20 sources) Xanthine Oxidase Inhibitor Start: 08-10-2014 take 1 tablet by mouth at bedtime Comment on above: Take 1 tablet by heather th once daily. For gout. ascorbic acid 113 mg / beta carotene 7160 mg / cuprous oxide 0.4 mg / dl-alpha tocopheryl acetate 100 unt / zinc oxide 17.4 mg oral tablet (1 source) Vitamin C Start: 01-04-2023 take 1 tablet by mouth once daily at lunch Vitamins A,C,I-Otmw-Jvowqj (Eye Multivitamin) 2,148 mcg-113 mg-45 mg-17.4mg Tablet Active 1 TABLET PO DAILY January 04, 2023 12:00am administer with LUNCH atorvastatin 40 mg oral tablet (20 sources) HMG-CoA Reductase Inhibitor Start: 10-29-2015 take 1 tablet by mouth at bedtime Comment on above: Take 1 tablet by [...] (5 sources) Bismuth Start: 07-15-2020 Bismuth Subsalicylate ([place] Bismuth) 262 mg/15 mL suspension Active 524 MG PO every 30 to 60 minutes July 15, 2020 12:00am do not exceed 8 doses in a 24 hour period bumetanide 1 mg oral tablet (20 sources) Loop Diuretic Start: 01-04-2023 take 1 tablet by mouth once daily Start: 01-04-2023 take 2 mg by mouth once daily Bumetanide Active 2 MG PO DAILY January 04, 2023 12:00am Start: 02-04-2017 take 2 mg by mouth once daily Bumetanide Active 2 MG PO DAILY March 23, 2017 12:00am Comment on above: Take 1 tablet by heather th once daily. cephalexin 500 mg oral tablet (1 source) Cephalosporin Antibacterial Start: 01-05-20 23 take 500 mg by mouth twice daily Cephalexin Active 500 MG PO TWICE A DAY January 04, 2023 12:00am cholecalciferol 0.05 mg oral capsule (20 sources) Vitamin D Start: 07-11-20 19 take 1 capsule by mouth once daily Start: 07-11-2019 take 2000 [IU] by mo [facility] at bedtime Cholecalciferol (Vitamin D3) Active 2000 UNIT PO AT BEDTIME July 11, 2019 12:00am take 1 tablet by heather th once daily cholecalciferol (VITAMIN D3) 50 mcg (2,000 unit) tablet Take 2,000 Units by mouth once daily. 0 Active Comment on above: Take 2,000 Units by mouth once daily. clopidogrel 75 mg oral tablet (20 sources) P2Y12 Platelet Inhibitor Start: 10-29-2015 take 1 tablet by mouth once daily Comment on above: Take 1 tablet by heather once daily. docusate sodium 100 mg oral capsule (4 sources) Start: 11-01-2024 take 1 capsule by mouth twice daily Dulaglutide (4 sources) GLP-1 Receptor Agonist Start: 11-01-2024 Start: 11-01-2024 Dulaglutide (T rulicity) 3 mg/0.5 mL pen injector Active 3 [...] take 1 tablet by mouth once daily Comment on above: Take 1 tablet by [...] and/or snacks lactulose 667 mg/ml oral solution (17 sources) Osmotic Laxative Start: 01-18-2023 levETIRAcetam 750 mg oral tablet (20 sources) Start: 01-04-2023 End: 11-01-2024 take 2 tablets by mouth twice daily Start: 01-04-2023 take 1500 mg by mout [...] tablet Discontinued 250 mg PO DAILY 90 0 August 31, 2019 1:00am July 15, 2020 [...] on above: Take 2 tablets by mo [facility] twice daily. 2 TABLETS (1,500MG) BY MOUTH 2 TIMES A DAY DX: / NURSE TO REORDER levothyroxine sodium 0.05 mg oral tablet (20 sources) l-Thyroxine Start: 11-01-2024 take 2 tablets by mouth once daily Start: 12-07-2016 take 75 ug by mouth once daily Levothyroxine Active 75 MCG PO DAILY December 07, 2016 1:00am Start: 12-30-2012 End: 11-01-2024 take 1 tablet by mouth once daily Levothyroxine 50 MCG tablet Discontinued 50 ug PO DAILY December 07, 2016 1:00am November 01, 2024 11:38am THYROID take 1 tablet by heather th once [...] 15, 2020 2:10pm loratadine 10 mg oral capsul e (20 sources) Start: 07-15-2020 take 1 capsule by mo [facility] at bedtime take 1 tablet by heather th once [...] take 1 tablet by mouth at bedtime Start: 12-07-2016 End: 03-17-2019 take 1 tablet by mouth at bedtime Magnesium Oxide 250 MG tablet Discontinued 250 mg PO AT BEDTIME December 07, 2016 1:00am March 17, 2019 1:16pm Comment on above: Take 400 mg by mouth daily at bedtime. melatonin 5 mg oral capsule (4 sources) Start: 11-01-2024 montelukast 10 mg oral tablet (20 sources) Leukotriene Receptor Antagonist Start: 03-17-2019 take 1 tablet by mouth at bedtime Comment on above: Take 10 mg by mouth daily at bedtime. OLANZapine 5 mg disintegrating oral tablet (20 sources) Atypical Antipsychotic Start: 11-01-2024 take 7.5 mg by mouth at bedtime Start: 10-02-2020 take 1 tablet by heather [...] take 1 tablet by mouth once daily Comment on above: Take 40 mg by mouth once daily. polyethylene glycol 3350 65592 mg powder for oral solution (5 sources) Osmotic Laxative Start: 07-15-20 Polyethylene Glycol 3350 (Miralax) 17 gram/dose powder Active 17 GM PO DAILY July 15, 2020 12:00am microencapsulated potassium chloride 20 meq extended release oral tablet (20 sources) Start: 07-11-20 19 take 1 tablet by mouth twice daily Start: 10-25-2015 take 20 mEq by mouth twice daily potassium chloride (KLOR-CON) 20 mEq packet Take 20 mEq by mouth twice daily. 0 10/25/2015 Active Comment on above: Take 20 mEq by mouth twice daily. pregabalin 200 mg oral capsule (20 sources) Start: 01-10-2023 End: 01-18-2023 take 1 capsule by mouth three times daily take 1 capsule by mo ut three times daily Pregabalin (LYRICA) 200 mg capsule Take 200 mg by mouth three times daily. 0 Active Comment on above: Take 200 mg by mouth three times daily. rOPINIRole 1 mg oral tablet (20 sources) Nonergot Dopamine Agonist Start: 3 take 1 tablet by mouth three times daily Comment on above: Take 1 tablet by heather th three times daily. sennosides, correction 8.6 mg oral capsule (5 sources) Start: 0 take 1 capsule by mouth once daily Sennosides (Senna) 8.6 mg capsule Active 8.6 MG PO DAILY July 15, 2020 12:00am spironolactone 25 mg oral tablet (20 sources) Aldosterone Antagonist Start: 0 take 1 tablet by mouth every other day Start: 07-15-2020 take 0.25 mg by mout [...] tablets tamsulosin hydrochloride 0.4 mg oral capsule (5 sources) alpha-Adrenergic Ramon Start: 11-01-2024 take 1 capsule by mouth once daily Start: 01-04-2023 take 0.4 mg by mouth once baltazar y Tamsulosin Active 0.4 MG PO DAILY January 04, 2023 12:00am valproic acid 50 mg/ml oral solution (20 sources) Mood Stabilizer, Anti-epileptic Agent Start: 03-13-2022 End: 03-28-2023 take 1000 mg by mouth three times daily Start: 12-01-2021 End: 02-06-2022 take 2 tablets by mouth three times daily divalproex ER (DEPAKOTE ER) 500 mg 24 hr tablet Take 2 tablets by mouth three times daily. 180 tablet 0 02/06/2022 Active Comment on above: Take 2 tablets by mo ut three times daily. Take 20 mL by mouth three times daily. 24 hr venlafaxine 150 mg extended release oral capsule (20 sources) Serotonin and Norepinephrine Reuptake Inhibitor Start: End: take 1 capsule by mouth once daily Comment on above: Take 1 capsule by [facility] once daily. Take Effexor XR 150 mg with Effexor XR 37.5 mg daily vitamin e 90 mg oral capsule (11 sources) Start: 9 take 400 [IU] by mouth every other [...] Comment on above: Take 400 Units by [facility] every other day. Once capsule by mouth [...] 17, 2019 1:16pm omega-3 acid ethyl esters (correction) 1000 mg oral capsule (17 sources) Start: 01-10-2023 End: 11-01-2024 [place] 7-Hci-Cxt-Fish Oil 1,0 00 mg (120 mg-180 mg) Capsule Discontinued 1 NMA PO TWICE A DAY January 10, 2023 12:00am November 01, 2024 11:35am Start: 01-10-2023 take 1 capsule by [facility] twice daily [place] 9-Gyw-Aef-Fish Oil Active 1 CAP PO TWICE A DAY January 10, 2023 12:00am [place]-3 Fatty Acids-Fish Oil (18 sources) Start: 07-11-2019 End: 07-15-2020 take 2 capsules by mouth twice daily [place]-3 Fatty Acids-Fish Oil Discontinued 2 CAP PO TWICE A DAY July 10, 2019 11:00pm July 15, 2020 1:09pm Start: 07-11-2019 End: 07-15-2020 take 2 capsules by mouth twice daily [place]-3 Fatty Acids-Fish Oil Discontinued 2 CAP PO TWICE A DAY July 11, 2019 12:00am July 15, 2020 2:09pm [place]-3 Fatty Acids-Fish Oil 1 EACH capsule (4 sources) Start: 07-11-2019 End: 07-15-2020 [place]-3 Fatty Acids-Fish Oil 1 EACH capsule Discontinued 2 NMA PO TWICE A DAY July 11, 2019 12:00am July 15, 2020 2:09pm SUPPLEMENT Start: 07-11-2019 End: 07-15-2020 [place]-3 Fatty Acids-Fish Oil 1 EACH capsule Discontinued 2 NMA PO TWICE A DAY July 11, 2019 12:00am July 15, 2020 2:09pm Bxmwv-2-RLZ-EPA-Fish Oil (FISH OIL) 1,000 mg (120 mg-180 mg) cap (5 sources) take 1 capsule by mouth twice daily Eqsow-6-SNC-EPA-Fish Oil (FISH OIL) 1,000 mg (120 mg-180 mg) cap Take one capsule by mouth twice daily. 0 Active Comment on above: Take one capsule by mouth twice daily. Rmkka-4-FPV-EPA-Fish Oil 1,000 mg (120 mg-180 mg) cap (2 sources) take 1 capsule by mouth twice daily Pgkrd-2-AVI-EPA-Fish Oil 1,000 mg (120 mg-180 mg) cap [...] [Type 2 diabetes mellitus without complications] Onset: 08-03-2025 Chronic Disorders of lipid metabolism (20 sources) [...] 03-22-2020 Chronic Other aftercare (2 sources) Other intermediate project manager (current) drug therapy; Translations: [Other snf (current) drug therapy] Onset: 06-15-2025 Episodic Other and unspecified benign neoplasm (1 source) History of polyp of colon; Translations: [Personal history of colonic polyps] Episodic Other circulatory disease (20 sources) H/O: hypertension; Translations: [Personal history of [...] injuries and conditions due to external causes (19 sources) Closed injury of head; Translations: [Unspecified injury of head, initial encounter] 12-31-2022 Episodic Other liver diseases (20 sources) Increased creatine kinase level; Translations: [Abnormal levels of other serum enzymes] 08-30-2019 Episodic Other lower respiratory disease (20 sources) Dyspnea; Translations: [Shortness of breath] Onset: 02-04-2017 03-22-2020 Episodic Other male genital disorders (20 sources) Hemorrhage of scrotum; Translations: [Vascular disorders of male genital organs] 11-16-2022 Chronic Other nervous system disorders (20 sources) Normal pressure hydrocephalus; Translations: [(Idiopathic) normal pressure hydrocephalus] 11-06-2016 Chronic Other nervous system disorders (20 sources) Tremor; Translations: [Tremor, unspecified] 06-27-2019 Episodic Other nervous system disorders (18 sources) Ataxia; Translations: [Ataxia, unspecified] 01-04-2023 Episodic [...] 01-08-2023 01-04-2023 Episodic Peripheral and visceral atherosclerosis (9 sources) Peripheral vascular disease; Translations: [Peripheral vascular [...] alveolar hypoventilation] 09-14-2018 Chronic Residual codes; unclassified (8 sources) Bilateral lower limb edema; Translations: [Localized [...] or Plasma Ordered By: Avani Eduardo on 07-26-2025 Anion gap [Moles/Vol] 13 mmol/L 02-15 [facility] BUN/creatinine ratioOrdered By: Avani Eduardo on 07-26-2025 Urea nitrogen/Creatinine [Mass ratio] 9.3 mg/mg Low 07-23 [facility] Basic Metabolic Profile (BMP )on 07-26-2025 BUN/CRE 9.3 RATIO Low 07-23 [facility] Comment on above: Order Comment: 304-2 Performed By: #### L [id number], L100.0500, L500.2500 #### [facility] [address] [place], [address] Calcium [Mass/Vol] 8.7 mg/dL Normal 7.6-11.0 [facility] Comment on above: Order Comment: 304-2 Performed By: #### L [id number], L100.0500, L500.2500 #### [facility] [address] [place], [address] Chloride [Moles/Vol] 98 mmol/L Normal 98-108 [facility] Comment on above: Order Comment: 304-2 Performed By: #### L [id number], L100.0500, L500.2500 #### [facility] [address] [place], [address] CO2 [Moles/Vol] 26.4 mmol/L Normal 21.0-32.0 [facility] Comment on above: Order Comment: 304-2 Performed By: #### L [id number], L100.0500, L500.2500 #### [facility] [address] [place], [address] Creatinine [Mass/Vol] 0.72 mg/dL Normal 0.70-1.20 [facility] Comment on above: Order Comment: 304-2 Performed By: #### L [id number], L100.0500, [id number] #### [facility] [address] [place], [address] GAP 13 Normal 5-15 [facility] Comment on above: Order Comment: 304-2 Performed By: #### L [id number], L100.0500, L500.2500 #### [facility] [address] [place], [address] GFR/1.73 sq M.predicted among non-blacks MDRD (S/P/Bld) [Vol rate/Area] 95 mL/min/{1.73_m2} Normal >60 [facility] Comment on above: Order Comment: 304-2 Result Comment: mL/m in/1.73m2 CKD-EPI Creatinine Equation (2020) Performed By: #### L [id number], L100.0500, L500.2500 #### [facility] [address] [place], [address] Glucose [Mass/Vol] 154 mg/dL High 70-99 [facility] Comment on above: Order Comment: 304-2 Performed By: #### L 501.5200, L100.0500, L500.2500 #### [facility] [address] [place], [address] Potassium [Moles/Vol] 3.8 mmol/L Normal 3.3-5.1 [facility] Comment on above: Order Comment: 304-2 Result Comment: Hemo lysis present, Results??could be affected. ?? Performed By: #### L [id number], L100.0500, L500.2500 #### [facility] [address] [place], [address] Sodium [Moles/Vol] 138 mmol/L Normal 133-145 [facility] Comment on above: Order Comment: 304-2 Performed By: #### L 501.5200, L100.0500, [id number] #### [facility] [address] [place], [address] Urea nitrogen [Mass/Vol] 7 mg/dL Normal 4-19 [facility] Comment on above: Order Comment: 304-2 Performed By: #### L 501.5200, L100.0500, L500.2500 #### [facility] [address] [place], [address] CBC-Complete Blood Cnt No Di ffon 07-26-2025 Erythrocyte distribution width (RBC) [Ratio] 13.2 % Normal 11.6-14.6 [facility] Comment on above: Order Comment: 304-2 Performed By: #### L 501.5200, L100.0500, L500.2500 #### [facility] [address] [place], [address] Hematocrit (Bld) [Volume fraction] 39.9 % Low 40-54 [facility] Comment on above: Order Comment: 304-2 Performed By: #### L 501.5200, L100.0500, L500.2500 #### [facility] [address] [place], [address] Hemoglobin (Bld) [Mass/Vol] 13.5 g/dL Normal 13.0-16.5 [facility] Comment on above: Order Comment: 304-2 Performed By: #### L 501.5200, L100.0500, L500.2500 #### [facility] [address] [place], [address] MCH (RBC) [Entitic mass] 31.4 pg Normal 27.0-32.0 [facility] Comment on above: Order Comment: 304-2 Performed By: #### L 501.5200, L100.0500, L500.2500 #### [facility] [address] [place], [address] MCHC (RBC) [Mass/Vol] 33.8 g/dL Normal 32-36 [facility] Comment on above: Order Comment: 304-2 Performed By: #### L 501.5200, L100.0500, L500.2500 #### [facility] [address] [place], [address] MCV (RBC) [Entitic vol] 92.8 fL Normal 80-94 [facility] Comment on above: Order Comment: 304-2 Performed By: #### L 501.5200, L100.0500, L500.2500 #### [facility] [address] [place], [address] Platelet mean volume (Bld) [Entitic vol] 9.2 fL Normal 6.2-12.0 [facility] Comment on above: Order Comment: 304-2 Performed By: #### L 501.5200, L100.0500, L500.2500 #### [facility] [address] [place], [address] Platelets (Bld) [#/Vol] 206 10*3/uL Normal 150-450 [facility] Comment on above: Order Comment: 304-2 Performed By: #### L [id number], L100.0500, L500.2500 #### [facility] [address] [place], [address] RBC (Bld) [#/Vol] 4.30 10*6/uL Low 4.6-6.2 [facility] Comment on above: Order Comment: 304-2 Performed By: #### L 501.5200, L100.0500, L500.2500 #### [facility] [address] [place], [address] RDW SD 45.0 fl High 35.1-43.9 [facility] Comment on above: Order Comment: 304-2 Performed By: #### L [id number], L100.0500, L500.2500 #### [facility] [address] [place], [address] WBC (Bld) [#/Vol] 6.5 10*3/uL Normal 4.4-11.0 [facility] Comment on above: Order Comment: 304-2 Performed By: #### L [id number], L100.0500, L500.2500 #### [facility] [address] [place], [address] Carbon dioxide, total [Moles /volume] in Central venous bloodOrdered By: Avani Eduardo on 07-26-2025 CO2 [Moles/Vol] 26.4 mmol/L 21.0-32.0 [facility] Chloride assayOrdered By: Adriel Eduardo on 07-26-2025 Chloride [Moles/Vol] 98 mmol/L 98-108 [facility] Erythrocyte distribution wid th ratioOrdered By: Avani Eduardo on 07-26-2025 Erythrocyte distribution width (RBC) [Ratio] 13.2 % 11.6-14.6 [facility] Erythrocyte distribution wid th standard deviationOrdered By: Avani Eduardo on 07-26-2025 Erythrocyte distribution width (RBC) [Ratio] 45.0 fl High 35.1-43.9 [facility] Glomerular filtration rate ( GFR) estimation/1.73 sq m using serum, plasma, or whole bOrdered By: Avani Eduardo on 07-26-2025 GFR/1.73 sq M.predicted among non-blacks MDRD (S/P/Bld) [Vol rate/Area] 95 mL/min/{1.73_m2} >60 [facility] Comment on above: mL/min/1.73m2 CKD-EP I Creatinine Equation (2020) Hematocrit Auto (Bld) [Volum e fraction]Ordered By: Avani Eduardo on 07-26-2025 Hematocrit (Bld) [Volume fraction] 39.9 % Low 40-54 [facility] Hemoglobin measurementOrdere d By: Avani Eduardo on 07-26-2025 Hemoglobin (Bld) [Mass/Vol] 13.5 g/dL 13.0-16.5 [facility] MCV (mean corpuscular volume ) determinationOrdered By: Avani Eduardo on 07-26-2025 MCV (RBC) [Entitic vol] 92.8 fL 80-94 [facility] Magnesiumon 07-26-2025 Magnesium [Mass/Vol] 2.1 mg/dL Normal 1.5-2.2 [facility] Comment on above: Order Comment: 304-2 Performed By: #### L [id number], L100.0500, L500.2500 #### [facility] [address] [place], [address] Magnesium measurement (mass/ volume)Ordered By: Avani Eduardo on 07-26-2025 Magnesium (Unsp spec) [Mass/Vol] 2.1 mg/dL 1.5-2.2 [facility] Mean corpuscular hemoglobin (MCH) determinationOrdered By: Avani Eduardo on 07-26-2025 MCH (RBC) [Entitic mass] 31.4 pg 27.0-32.0 [facility] Mean corpuscular hemoglobin concentration (MCHC) determinationOrdered By: Avani Eduardo on 07-26-2025 MCHC (RBC) [Mass/Vol] 33.8 g/dL 32-36 [facility] Mean platelet volume determi nationOrdered By: Avani Eduardo on 07-26-2025 Platelet mean volume (Bld) [Entitic vol] 9.2 fL 6.2-12.0 [facility] Platelet countOrdered By: Adriel Eduardo on 07-26-2025 Platelets (Bld) [#/Vol] 206 10*3/uL 150-450 [facility] Potassium measurement (mass/ volume)Ordered By: Avani Eduardo on 07-26-2025 Potassium (Unsp spec) [Mass/Vol] 3.8 mmol/L 3.3-5.1 [facility] Comment on above: Hemolysis present, R esults could be affected. RBC Auto (Bld) [#/Vol]Ordere d By: Avani Eduardo on 07-26-2025 RBC (Bld) [#/Vol] 4.30 10*6/uL Low 4.6-6.2 [facility] Serum creatinine measurement (mass/volume)Ordered By: Avani Eduardo on 07-26-2025 Creatinine [Mass/Vol] 0.72 mg/dL 0.70-1.20 [facility] Serum glucose measurement (m ass/volume)Ordered By: Avani Eduardo on 07-26-2025 Glucose [Mass/Vol] 154 mg/dL High 70-99 [facility] Serum or plasma calcium minda urement (mass/volume)Ordered By: Avani Eduardo on 07-26-2025 Calcium [Mass/Vol] 8.7 mg/dL 7.6-11.0 [facility] Serum or plasma urea nitroge n measurement (mass/volume)Ordered By: Avani Eduardo on 07-26-2025 Urea nitrogen [Mass/Vol] 7 mg/dL 4-19 [facility] Sodium levelOrdered By: Emmanuel Eduardo on 07-26-2025 Sodium [Moles/Vol] 138 mmol/L 133-145 [facility] TSH DL <= 0.005 mIU/L QnOrde red By: Avani Eduardo on 07-26-2025 TSH Qn 2.850 uIU/mL 0.300-4.20 0 [facility] Thyroid Stim Hormone (TSH)on 07-26-2025 TSH 2.850 uIU/mL Normal 0.300-4.20 0 [facility] Comment on above: Order Comment: 304-2 Performed By: #### L 501.5200, L100.0500, L500.2500 #### [facility] [address] [place], [address] White blood cell (WBC) count Ordered By: Avani Eduardo on 07-26-2025 WBC (Bld) [#/Vol] 6.5 10*3/uL 4.4-11.0 [facility] KEPPRA (LEVETIRACETAM)on KEPPRA 36.6 ug/mL Normal 10.0-40.0 [facility] Comment on above: Order Comment: 304-2 Result Comment: Perf ormed at: [facility] - [facility] [address] [id number] Accredited Legal Secretary: Jess Bess MD, Phone: [phone] Performed By: #### L 501.5200, L100.0500, L500.2500 #### [facility] [address] [place], [address] LevetiracetamOrdered By: Ethan Eduardo on 06-26-2025 levETIRAcetam [Mass/Vol] 36.6 ug/mL 10.0-40.0 [facility] Comment on above: Performed at: [facility] - [facility] [address] [id number] Director: Jess Bess MD, Phone: [phone] TSH DL <= 0.005 mIU/L QnOrde red By: Avani Eduardo on 06-12-2025 TSH Qn 4.840 uIU/mL High 0.300-4.20 0 [facility] Thyroid Stim Hormone (TSH)on 06-12-2025 TSH 4.840 uIU/mL High 0.300-4.20 0 [facility] Comment on above: Order Comment: 304-2 Performed By: #### L 501.5200, L100.0500, L500.2500 #### [facility] [address] [place], [address] KEPPRA (LEVETIRACETAM)on KEPPRA 46.4 ug/mL Abnormal 10.0-40.0 [facility] Comment on above: Order Comment: 304-2 Result Comment: Perf ormed at: [facility] [address] [id number] Accredited Legal Secretary: Jess Bess MD, Phone: [phone] Performed By: #### L 501.9985 #### [facility] [address] [place], [address] LevetiracetamOrdered By: Ethan Eduardo on 06-05-2025 levETIRAcetam [Mass/Vol] 46.4 ug/mL High 10.0-40.0 [facility] Comment on above: Performed at: [address] [id number] Director: Jess Bess MD, Phone: [phone] KEPPRA (LEVETIRACETAM)on KEPPRA 51.2 ug/mL Abnormal 10.0-40.0 [facility] Comment on above: Order Comment: 304-2 Result Comment: Perf ormed at: [facility] [id number] Accredited Legal Secretary: Jess Bess MD, Phone: [phone] Performed By: #### L 501.5200, L100.0500, L500.2500 #### [facility] [address] [place], [place], [id number] Hemoglobin A1con 05-29-2025 HbA1c (Bld) [Mass fraction] 7.8 % High <=5.6 [facility] Comment on above: Order Comment: 304-2 Result Comment: Norm al < 5.7 % Prediabetic 5.7 - 6.4 % Diabetic >or= 6.5 % Please note range changes. Performed By: #### L 501.5200, L100.0500, L500.2500 #### [facility] [address] [place], [place], [id number] Hemoglobin A1c percentageOrd ered By: Avani Eduardo on 05-29-2025 HbA1c (Bld) [Mass fraction] 7.8 % High <5.7 [facility] Comment on above: Normal < 5.7 % Predi abetic 5.7 - 6.4 % Diabetic >or= 6.5 % Please note range changes. LevetiracetamOrdered By: Ethan Eduardo on 05-29-2025 levETIRAcetam [Mass/Vol] 51.2 ug/mL High 10.0-40.0 [facility] Comment on above: Performed at: [address] [id number] Director: Jess Bess MD, Phone: [phone] TSH DL <= 0.005 mIU/L QnOrde red By: Avani Eduardo on 05-29-2025 TSH Qn 6.000 uIU/mL High 0.300-4.20 0 [facility] Thyroid Stim Hormone (TSH)on 05-29-2025 TSH 6.000 uIU/mL High 0.300-4.20 0 [facility] Comment on above: Order Comment: 304-2 Performed By: #### L 501.5200, L100.0500, L500.2500 #### [facility] [address] [place], [place], [id number] Anion gap in Serum or Plasma Ordered By: Avani Eduardo on 05-08-2025 Anion gap [Moles/Vol] 13 mmol/L 5-15 [facility] Automated blood erythrocyte countOrdered By: Avani Eduardo on 05-08-2025 RBC (Bld) [#/Vol] 4.10 10*6/uL Low 4.6-6.2 [facility] Comment on above: Order Comment: 304-2 Performed By: #### L 501.5200, L100.0500, L500.2500 #### [facility] [address] [place], [address] Automated blood hematocrit ( percentage)Ordered By: Avani Eduardo on 05-08-2025 Hematocrit (Bld) [Volume fraction] 39.1 % Low 40-54 [facility] Comment on above: Order Comment: 304-2 Performed By: #### L 501.5200, L100.0500, L500.2500 #### [facility] [address] [place], [address] BUN/creatinine ratioOrdered By: Avani Eduardo on 05-08-2025 Urea nitrogen/Creatinine [Mass ratio] 16.3 mg/mg 10- [facility] Basic Metabolic Profile (BMP )on 05-08-2025 BUN/CRE 16.3 RATIO Normal - [facility] Comment on above: Order Comment: 304-2 Performed By: #### L 501.5200, L100.0500, L500.2500 #### [facility] [address] [place], [address] Calcium [Mass/Vol] 9.0 mg/dL Normal 7.6-11.0 [facility] Comment on above: Order Comment: 304-2 Performed By: #### L 501.5200, L100.0500, L500.2500 #### [facility] [address] [place], [address] Chloride [Moles/Vol] 100 mmol/L Normal 98-108 [facility] Comment on above: Order Comment: 304-2 Performed By: #### L 501.5200, L100.0500, L500.2500 #### [facility] [address] [place], [address] CO2 [Moles/Vol] 26.3 mmol/L Normal 21.0-32.0 [facility] Comment on above: Order Comment: 304-2 Performed By: #### L 501.5200, L100.0500, L500.2500 #### [facility] [address] [place], [address] Creatinine [Mass/Vol] 0.57 mg/dL Low 0.70-1.20 [facility] Comment on above: Order Comment: 304-2 Performed By: #### L 501.5200, L100.0500, L500.2500 #### [facility] [address] [place], [address] GAP 13 Normal 5-15 [facility] Comment on above: Order Comment: 304-2 Performed By: #### L 501.5200, L100.0500, L500.2500 #### [facility] [address] [place], [address] GFR/1.73 sq M.predicted among non-blacks MDRD (S/P/Bld) [Vol rate/Area] 102 mL/min/{1.73_m2} Normal >60 [facility] Comment on above: Order Comment: 304-2 Result Comment: mL/m in/1.73m2 CKD-EPI Creatinine Equation (2020) Performed By: #### L 501.5200, L100.0500, L500.2500 #### [facility] [address] [place], [address] Glucose [Mass/Vol] 140 mg/dL High 70-99 [facility] Comment on above: Order Comment: 304-2 Performed By: #### L 501.5200, L100.0500, L500.2500 #### [facility] [address] [place], [address] Potassium [Moles/Vol] 3.5 mmol/L Normal 3.3-5.1 [facility] Comment on above: Order Comment: 304-2 Performed By: #### L 501.5200, L100.0500, L500.2500 #### [facility] [address] [place], [address] Sodium [Moles/Vol] 139 mmol/L Normal 133-145 [facility] Comment on above: Order Comment: 304-2 Performed By: #### L 501.5200, L100.0500, L500.2500 #### [facility] [address] [place], [address] Urea nitrogen [Mass/Vol] 9 mg/dL Normal 4-19 [facility] Comment on above: Order Comment: 304-2 Performed By: #### L 501.5200, L100.0500, L500.2500 #### [facility] [address] [place], [address] CBC-Complete Blood Cnt No Di ffon 05-08-2025 RDW SD 47.3 fl High 35.1-43.9 [facility] Comment on above: Order Comment: 304-2 Performed By: #### L 501.5200, L100.0500, L500.2500 #### [facility] [address] [place], [address] Carbon dioxide, total [Moles /volume] in Central venous bloodOrdered By: Avani Eduardo on 05-08-2025 CO2 [Moles/Vol] 26.3 mmol/L 21.0-32.0 [facility] Chloride assayOrdered By: Adriel Eduardo on 05-08-2025 Chloride [Moles/Vol] 100 mmol/L 98-108 [facility] Erythrocyte distribution wid th ratioOrdered By: Avani Eduardo on 05-08-2025 Erythrocyte distribution width (RBC) [Ratio] 13.4 % Normal 11.6-14.6 [facility] Comment on above: Order Comment: 304-2 Performed By: #### L 501.5200, L100.0500, L500.2500 #### [facility] [address] [place], [address] Erythrocyte distribution wid th standard deviationOrdered By: Avani Eduardo on 05-08-2025 Erythrocyte distribution width (RBC) [Ratio] 47.3 fl High 35.1-43.9 [facility] Glomerular filtration rate ( GFR) estimation/1.73 sq m using serum, plasma, or whole bOrdered By: Avani Eduardo on 05-08-2025 GFR/1.73 sq M.predicted among non-blacks MDRD (S/P/Bld) [Vol rate/Area] 102 mL/min/{1.73_m2} >60 [facility] Comment on above: mL/min/1.73m2 CKD-EP I Creatinine Equation (2020) Hemoglobin measurementOrdere d By: Avani Eduardo on 05-08-2025 Hemoglobin (Bld) [Mass/Vol] 13.3 g/dL Normal 13.0-16.5 [facility] Comment on above: Order Comment: 304-2 Performed By: #### L 501.5200, L100.0500, L500.2500 #### [facility] [address] [place], [address] MCV (mean corpuscular volume ) determinationOrdered By: Avani Eduardo on 05-08-2025 MCV (RBC) [Entitic vol] 95.4 fL High 80-94 [facility] Comment on above: Order Comment: 304-2 Performed By: #### L 501.5200, L100.0500, L500.2500 #### [facility] [address] [place], [address] Magnesiumon 05-08-2025 Magnesium [Mass/Vol] 2.1 mg/dL Normal 1.5-2.2 [facility] Comment on above: Order Comment: 304-2 Performed By: #### L 501.5200, L100.0500, L500.2500 #### [facility] [address] [place], [address] Magnesium measurement (mass/ volume)Ordered By: Avani Eduardo on 05-08-2025 Magnesium (Unsp spec) [Mass/Vol] 2.1 mg/dL 1.5-2.2 [facility] Mean corpuscular hemoglobin (MCH) determinationOrdered By: Avani Eduardo on 05-08-2025 MCH (RBC) [Entitic mass] 32.4 pg High 27.0-32.0 [facility] Comment on above: Order Comment: 304-2 Performed By: #### L 501.5200, L100.0500, L500.2500 #### [facility] [address] [place], [place], [id number] Mean corpuscular hemoglobin concentration (MCHC) determinationOrdered By: Avani Eduardo on 05-08-2025 MCHC (RBC) [Mass/Vol] 34.0 g/dL Normal 32-36 [facility] Comment on above: Order Comment: 304-2 Performed By: #### L 501.5200, L100.0500, L500.2500 #### [facility] [address] [place], [place], [id number] Mean platelet volume determi nationOrdered By: Avani Eduardo on 05-08-2025 Platelet mean volume (Bld) [Entitic vol] 9.3 fL Normal 6.2-12.0 [facility] Comment on above: Order Comment: 304-2 Performed By: #### L 501.5200, L100.0500, L500.2500 #### [facility] [address] [place], [address] Platelet countOrdered By: Adriel Eduardo on 05-08-2025 Platelets (Bld) [#/Vol] 197 10*3/uL Normal 150-450 [facility] Comment on above: Order Comment: 304-2 Performed By: #### L 501.5200, L100.0500, L500.2500 #### [facility] [address] [place], [address] Potassium measurement (mass/ volume)Ordered By: Avani Eduardo on 05-08-2025 Potassium (Unsp spec) [Mass/Vol] 3.5 mmol/L 3.3-5.1 [facility] Serum creatinine measurement (mass/volume)Ordered By: Avani Eduardo on 05-08-2025 Creatinine [Mass/Vol] 0.57 mg/dL Low 0.70-1.20 [facility] Serum glucose measurement (m ass/volume)Ordered By: Avani Eduardo on 05-08-2025 Glucose [Mass/Vol] 140 mg/dL High 70-99 [facility] Serum or plasma calcium minda urement (mass/volume)Ordered By: Avani Eduardo on 05-08-2025 Calcium [Mass/Vol] 9.0 mg/dL 7.6-11.0 [facility] Serum or plasma urea nitroge n measurement (mass/volume)Ordered By: Avani Eduardo on 05-08-2025 Urea nitrogen [Mass/Vol] 9 mg/dL 4-19 [facility] Sodium levelOrdered By: Emmanuel Eduardo on 05-08-2025 Sodium [Moles/Vol] 139 mmol/L 133-145 [facility] White blood cell (WBC) count Ordered By: Avani Eduardo on 05-08-2025 WBC (Bld) [#/Vol] 6.9 10*3/uL Normal 4.4-11.0 [facility] Comment on above: Order Comment: 304-2 Performed By: #### L 501.5200, L100.0500, L500.2500 #### [facility] [address] [place], [address] TSH DL <= 0.005 mIU/L QnOrde red By: Avani Eduardo on 05-01-2025 TSH Qn 5.000 uIU/mL High 0.300-4.20 0 [facility] Thyroid Stim Hormone (TSH)on 05-01-2025 TSH 5.000 uIU/mL High 0.300-4.20 0 [facility] Comment on above: Performed By: #### L 501.9985 #### [facility] [address] [place], [address] Anion gap in Serum or Plasma Ordered By: Avani Eduardo on 04-24-2025 Anion gap [Moles/Vol] 12 mmol/L - [facility] BUN/creatinine ratioOrdered By: Avani Eduardo on 04-24-2025 Urea nitrogen/Creatinine [Mass ratio] 20.2 mg/mg High 10- [facility] Basic Metabolic Profile (BMP )on 04-24-2025 BUN/CRE 20.2 RATIO High 07-23 [facility] Comment on above: Order Comment: 304-2 Performed By: #### L 501.5200, L100.0500, L500.2500 #### [facility] [address] [place], [address] Calcium [Mass/Vol] 9.1 mg/dL Normal 7.6-11.0 [facility] Comment on above: Order Comment: 304-2 Performed By: #### L 501.5200, L100.0500, L500.2500 #### [facility] [address] [place], [address] Chloride [Moles/Vol] 96 mmol/L Low 98-108 [facility] Comment on above: Order Comment: 304-2 Performed By: #### L 501.5200, L100.0500, L500.2500 #### [facility] [address] [place], [address] CO2 [Moles/Vol] 29.3 mmol/L Normal 21.0-32.0 [facility] Comment on above: Order Comment: 304-2 Performed By: #### L 501.5200, L100.0500, L500.2500 #### [facility] [address] [place], [address] Creatinine [Mass/Vol] 0.76 mg/dL Normal 0.70-1.20 [facility] Comment on above: Order Comment: 304-2 Performed By: #### L 501.5200, L100.0500, L500.2500 #### [facility] [address] [place], [address] GAP 12 Normal 5-15 [facility] Comment on above: Order Comment: 304-2 Performed By: #### L 501.5200, L100.0500, L500.2500 #### [facility] [address] [place], [address] GFR/1.73 sq M.predicted among non-blacks MDRD (S/P/Bld) [Vol rate/Area] 94 mL/min/{1.73_m2} Normal >60 [facility] Comment on above: Order Comment: 304-2 Result Comment: mL/m in/1.73m2 CKD-EPI Creatinine Equation (2020) Performed By: #### L 501.5200, L100.0500, L500.2500 #### [facility] [address] [place], [address] Glucose [Mass/Vol] 147 mg/dL High 70-99 [facility] Comment on above: Order Comment: 304-2 Performed By: #### L 501.5200, L100.0500, L500.2500 #### [facility] [address] [place], [address] Potassium [Moles/Vol] 3.8 mmol/L Normal 3.3-5.1 [facility] Comment on above: Order Comment: 304-2 Performed By: #### L 501.5200, L100.0500, L500.2500 #### [facility] [address] [place], [address] Sodium [Moles/Vol] 138 mmol/L Normal 133-145 [facility] Comment on above: Order Comment: 304-2 Performed By: #### L 501.5200, L100.0500, L500.2500 #### [facility] [address] [place], [address] Urea nitrogen [Mass/Vol] 15 mg/dL Normal 4-19 [facility] Comment on above: Order Comment: 304-2 Performed By: #### L 501.5200, L100.0500, L500.2500 #### [facility] [address] [place], [address] Carbon dioxide, total [Moles /volume] in Central venous bloodOrdered By: Avani Eduardo on 04-24-2025 CO2 [Moles/Vol] 29.3 mmol/L 21.0-32.0 [facility] Chloride assayOrdered By: Adriel Eduardo on 04-24-2025 Chloride [Moles/Vol] 96 mmol/L Low 98-108 [facility] Glomerular filtration rate ( GFR) estimation/1.73 sq m using serum, plasma, or whole bOrdered By: Avani Eduardo on 04-24-2025 GFR/1.73 sq M.predicted among non-blacks MDRD (S/P/Bld) [Vol rate/Area] 94 mL/min/{1.73_m2} >60 [facility] Comment on above: mL/min/1.73m2 CKD-EP I Creatinine Equation (2020) Magnesiumon 04-24-2025 Magnesium [Mass/Vol] 2.3 mg/dL High 1.5-2.2 [facility] Comment on above: Order Comment: 304-2 Performed By: #### L 501.5200, L100.0500, L500.2500 #### [facility] [address] [place], [address] Magnesium measurement (mass/ volume)Ordered By: Avani Eduardo on 04-24-2025 Magnesium (Unsp spec) [Mass/Vol] 2.3 mg/dL High 1.5-2.2 [facility] Potassium measurement (mass/ volume)Ordered By: Avani Eduardo on 04-24-2025 Potassium (Unsp spec) [Mass/Vol] 3.8 mmol/L 3.3-5.1 [facility] Serum creatinine measurement (mass/volume)Ordered By: Avani Eduardo on 04-24-2025 Creatinine [Mass/Vol] 0.76 mg/dL 0.70-1.20 [facility] Serum glucose measurement (m ass/volume)Ordered By: Avani Eduardo on 04-24-2025 Glucose [Mass/Vol] 147 mg/dL High 70-99 [facility] Serum or plasma calcium minda urement (mass/volume)Ordered By: Avani Eduardo on 04-24-2025 Calcium [Mass/Vol] 9.1 mg/dL 7.6-11.0 [facility] Serum or plasma urea nitroge n measurement (mass/volume)Ordered By: Avani Eduardo on 04-24-2025 Urea nitrogen [Mass/Vol] 15 mg/dL 4-19 [facility] Sodium levelOrdered By: Emmanuel Eduardo on 04-24-2025 Sodium [Moles/Vol] 138 mmol/L 133-145 [facility] Anion gap in Serum or Plasma Ordered By: Avani Eduardo on 04-03-2025 Anion gap [Moles/Vol] 17 mmol/L High 5-15 [facility] BUN/creatinine ratioOrdered By: Avani Eduardo on 04-03-2025 Urea nitrogen/Creatinine [Mass ratio] 14.2 mg/mg 10- [facility] Basic Metabolic Profile (BMP )on 04-03-2025 BUN/CRE 14.2 RATIO Normal 07-23 [facility] Comment on above: Order Comment: 304-2 Performed By: #### L 501.9985 #### [facility] [address] [place], [place] [address] [place], [address] Calcium [Mass/Vol] 9.8 mg/dL Normal 7.6-11.0 [facility] Comment on above: Order Comment: 304-2 Performed By: #### L 501.9985 #### [facility] [address] [place], [address] Chloride [Moles/Vol] 96 mmol/L Low 98-108 [facility] Comment on above: Order Comment: 304-2 Performed By: #### L 501.9985 #### [facility] [address] [place], [address] CO2 [Moles/Vol] 24.9 mmol/L Normal 21.0-32.0 [facility] Comment on above: Order Comment: 304-2 Performed By: #### L 501.9985 #### [facility] [address] [place], [address] Creatinine [Mass/Vol] 0.84 mg/dL Normal 0.70-1.20 [facility] Comment on above: Order Comment: 304-2 Performed By: #### L 501.9985 #### [facility] [address] [place], [address] GAP 17 High 5-15 [facility] Comment on above: Order Comment: 304-2 Performed By: #### L 501.9985 #### [facility] [address] [place], [address] GFR/1.73 sq M.predicted among non-blacks MDRD (S/P/Bld) [Vol rate/Area] 91 mL/min/{1.73_m2} Normal >60 [facility] Comment on above: Order Comment: 304-2 Result Comment: mL/m in/1.73m2 CKD-EPI Creatinine Equation (2020) Performed By: #### L 501.9985 #### [facility] [address] [place], [address] Glucose [Mass/Vol] 229 mg/dL High 70-99 [facility] Comment on above: Order Comment: 304-2 Performed By: #### L 501.9985 #### [facility] [address] [place], [address] Potassium [Moles/Vol] 4.2 mmol/L Normal 3.3-5.1 [facility] Comment on above: Order Comment: 304-2 Result Comment: Hemo lysis present, Results??could be affected. ?? Performed By: #### L 501.9985 #### [facility] [address] [place], [address] Sodium [Moles/Vol] 137 mmol/L Normal 133-145 [facility] Comment on above: Order Comment: 304-2 Performed By: #### L 501.9985 #### [facility] [address] [place], [address] Urea nitrogen [Mass/Vol] 12 mg/dL Normal 4-19 [facility] Comment on above: Order Comment: 304-2 Performed By: #### L 501.9985 #### [facility] [address] [place], [address] CBC-Complete Blood Cnt No Di ffon 04-03-2025 Erythrocyte distribution width (RBC) [Ratio] 13.8 % Normal 11.6-14.6 [facility] Comment on above: Order Comment: 304-2 Performed By: #### L 501.5200, L100.0500, L500.2500 #### [facility] [address] [place], [address] Hematocrit (Bld) [Volume fraction] 44.7 % Normal 40-54 [facility] Comment on above: Order Comment: 304-2 Performed By: #### L 501.5200, L100.0500, L500.2500 #### [facility] [address] [place], [address] Hemoglobin (Bld) [Mass/Vol] 15.1 g/dL Normal 13.0-16.5 [facility] Comment on above: Order Comment: 304-2 Performed By: #### L 501.5200, L100.0500, L500.2500 #### [facility] [address] [place], [address] MCH (RBC) [Entitic mass] 32.4 pg High 27.0-32.0 [facility] Comment on above: Order Comment: 304-2 Performed By: #### L 501.5200, L100.0500, L500.2500 #### [facility] [address] [place], [address] MCHC (RBC) [Mass/Vol] 33.8 g/dL Normal 32-36 [facility] Comment on above: Order Comment: 304-2 Performed By: #### L 501.5200, L100.0500, L500.2500 #### [facility] [address] [place], [address] MCV (RBC) [Entitic vol] 95.9 fL High 80-94 [facility] Comment on above: Order Comment: 304-2 Performed By: #### L 501.5200, L100.0500, L500.2500 #### [facility] [address] [place], [address] Platelet mean volume (Bld) [Entitic vol] 9.5 fL Normal 6.2-12.0 [facility] Comment on above: Order Comment: 304-2 Performed By: #### L 501.5200, L100.0500, L500.2500 #### [facility] [address] [place], [address] Platelets (Bld) [#/Vol] 252 10*3/uL Normal 150-450 [facility] Comment on above: Order Comment: 304-2 Performed By: #### L 501.5200, L100.0500, L500.2500 #### [facility] [address] [place], [address] RBC (Bld) [#/Vol] 4.66 10*6/uL Normal 4.6-6.2 [facility] Comment on above: Order Comment: 304-2 Performed By: #### L 501.5200, L100.0500, L500.2500 #### [facility] [address] [place], [address] RDW SD 49.1 fl High 35.1-43.9 [facility] Comment on above: Order Comment: 304-2 Performed By: #### L 501.5200, L100.0500, L500.2500 #### [facility] [address] [place], [address] WBC (Bld) [#/Vol] 7.2 10*3/uL Normal 4.4-11.0 [facility] Comment on above: Order Comment: 304-2 Performed By: #### L 501.5200, L100.0500, L500.2500 #### [facility] [address] [place], [address] Carbon dioxide, total [Moles /volume] in Central venous bloodOrdered By: Avani Eduardo on 04-03-2025 CO2 [Moles/Vol] 24.9 mmol/L 21.0-32.0 [facility] Chloride assayOrdered By: Adriel Eduardo on 04-03-2025 Chloride [Moles/Vol] 96 mmol/L Low 98-108 [facility] Erythrocyte distribution wid th ratioOrdered By: Avani Eduardo on 04-03-2025 Erythrocyte distribution width (RBC) [Ratio] 13.8 % 11.6-14.6 [facility] Erythrocyte distribution wid th standard deviationOrdered By: Avani Eduardo on 04-03-2025 Erythrocyte distribution width (RBC) [Ratio] 49.1 fl High 35.1-43.9 [facility] Glomerular filtration rate ( GFR) estimation/1.73 sq m using serum, plasma, or whole bOrdered By: Avani Eduardo on 04-03-2025 GFR/1.73 sq M.predicted among non-blacks MDRD (S/P/Bld) [Vol rate/Area] 91 mL/min/{1.73_m2} >60 [facility] Comment on above: mL/min/1.73m2 CKD-EP I Creatinine Equation (2020) Hematocrit Auto (Bld) [Volum e fraction]Ordered By: Avani Eduardo on 04-03-2025 Hematocrit (Bld) [Volume fraction] 44.7 % 40-54 [facility] Hemoglobin measurementOrdere d By: Avani Eduardo on 04-03-2025 Hemoglobin (Bld) [Mass/Vol] 15.1 g/dL 13.0-16.5 [facility] MCV (mean corpuscular volume ) determinationOrdered By: Avani Eduardo on 04-03-2025 MCV (RBC) [Entitic vol] 95.9 fL High 80-94 [facility] Magnesiumon 04-03-2025 Magnesium [Mass/Vol] 2.3 mg/dL High 1.5-2.2 [facility] Comment on above: Order Comment: 304-2 Performed By: #### L 501.9985 #### [facility] [place], [address] Magnesium measurement (mass/ volume)Ordered By: Avani Eduardo on 04-03-2025 Magnesium (Unsp spec) [Mass/Vol] 2.3 mg/dL High 1.5-2.2 [facility] Mean corpuscular hemoglobin (MCH) determinationOrdered By: Avani Eduardo on 04-03-2025 MCH (RBC) [Entitic mass] 32.4 pg High 27.0-32.0 [facility] Mean corpuscular hemoglobin concentration (MCHC) determinationOrdered By: Avani Eduardo on 04-03-2025 MCHC (RBC) [Mass/Vol] 33.8 g/dL 32-36 [facility] Mean platelet volume determi nationOrdered By: Avani Eduardo on 04-03-2025 Platelet mean volume (Bld) [Entitic vol] 9.5 fL 6.2-12.0 [facility] Platelet countOrdered By: Adriel Eduardo on 04-03-2025 Platelets (Bld) [#/Vol] 252 10*3/uL 150-450 [facility] Potassium measurement (mass/ volume)Ordered By: Avani Eduardo on 04-03-2025 Potassium (Unsp spec) [Mass/Vol] 4.2 mmol/L 3.3-5.1 [facility] Comment on above: Hemolysis present, R esults could be affected. RBC Auto (Bld) [#/Vol]Ordere d By: Avani Eduardo on 04-03-2025 RBC (Bld) [#/Vol] 4.66 10*6/uL 4.6-6.2 [facility] Serum creatinine measurement (mass/volume)Ordered By: Avani Eduardo on 04-03-2025 Creatinine [Mass/Vol] 0.84 mg/dL 0.70-1.20 [facility] Serum glucose measurement (m ass/volume)Ordered By: Avani Eduardo on 04-03-2025 Glucose [Mass/Vol] 229 mg/dL High 70-99 [facility] Serum or plasma calcium minda urement (mass/volume)Ordered By: Avani Eduardo on 04-03-2025 Calcium [Mass/Vol] 9.8 mg/dL 7.6-11.0 [facility] Serum or plasma urea nitroge n measurement (mass/volume)Ordered By: Avani Eduardo on 04-03-2025 Urea nitrogen [Mass/Vol] 12 mg/dL 4-19 [facility] Sodium levelOrdered By: Emmanuel Eduardo on 04-03-2025 Sodium [Moles/Vol] 137 mmol/L 133-145 [facility] White blood cell (WBC) count Ordered By: Avani Eduardo on 04-03-2025 WBC (Bld) [#/Vol] 7.2 10*3/uL 4.4-11.0 [facility] TSH DL <= 0.005 mIU/L QnOrde red By: Avani Eduardo on 02-28-2025 TSH Qn 4.330 uIU/mL High 0.300-4.20 0 [facility] Thyroid Stim Hormone (TSH)on 02-28-2025 TSH 4.330 uIU/mL High 0.300-4.20 0 [facility] Comment on above: Order Comment: 304-2 Performed By: #### L 501.5200, L100.0500, L500.2500 #### [facility] [address] [place], [address] Arterial study reportOrdered By: Eris Capps on 02-13-2025 Noninvasive arteriosclerosis study report [facility] [address] 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 [address] Lower Ext Art Exam w/o Exercis 02/13/25910 MR#: [id number] Acct: [id number] Name: ANJEL ROSS Rep #: [id number] : 1950 74 From: Eris Capps MD [...] MD Date Dictated: 02/13/25910 Date Transcribed: 02/13/251056 Textile Dyer: Signed Normal [facility] Anion gap in Serum or Plasma Ordered By: Avani Eduardo on 02-01-2025 Anion gap [Moles/Vol] 13 mmol/L - [facility] BUN/creatinine ratioOrdered By: Avani Eduardo on 02-01-2025 Urea nitrogen/Creatinine [Mass ratio] 16.2 mg/mg - [facility] Basic Metabolic Profile (BMP )on 02-01-2025 BUN/CRE 16.2 RATIO Normal 07-23 [facility] Comment on above: Order Comment: 304-2 Performed By: #### L 501.5200, L100.0500, L500.2500 #### [facility] [address] [place], [address] Calcium [Mass/Vol] 8.4 mg/dL Normal 7.6-11.0 [facility] Comment on above: Order Comment: 304-2 Performed By: #### L 501.5200, L100.0500, L500.2500 #### [facility] [address] [place], [address] Chloride [Moles/Vol] 98 mmol/L Normal 98-108 [facility] Comment on above: Order Comment: 304-2 Performed By: #### L 501.5200, L100.0500, L500.2500 #### [facility] [address] [place], [address] CO2 [Moles/Vol] 25.5 mmol/L Normal 21.0-32.0 [facility] Comment on above: Order Comment: 304-2 Performed By: #### L 501.5200, L100.0500, L500.2500 #### [facility] [address] [place], [address] Creatinine [Mass/Vol] 0.64 mg/dL Low 0.70-1.20 [facility] Comment on above: Order Comment: 304-2 Performed By: #### L 501.5200, L100.0500, L500.2500 #### [facility] [address] [place], [address] GAP 13 Normal 5-15 [facility] Comment on above: Order Comment: 304-2 Performed By: #### L 501.5200, L100.0500, L500.2500 #### [facility] [address] [place], [address] GFR/1.73 sq M.predicted among non-blacks MDRD (S/P/Bld) [Vol rate/Area] 99 mL/min/{1.73_m2} Normal >60 [facility] Comment on above: Order Comment: 304-2 Result Comment: mL/m in/1.73m2 CKD-EPI Creatinine Equation (2020) Performed By: #### L 501.5200, L100.0500, L500.2500 #### [facility] [address] [place], [address] Glucose [Mass/Vol] 203 mg/dL High 70-99 [facility] Comment on above: Order Comment: 304-2 Performed By: #### L 501.5200, L100.0500, L500.2500 #### [facility] [address] [place], [address] Potassium [Moles/Vol] 3.5 mmol/L Normal 3.3-5.1 [facility] Comment on above: Order Comment: 304-2 Performed By: #### L 501.5200, L100.0500, L500.2500 #### [facility] [address] [place], [address] Sodium [Moles/Vol] 136 mmol/L Normal 133-145 [facility] Comment on above: Order Comment: 304-2 Performed By: #### L 501.5200, L100.0500, L500.2500 #### [facility] [address] [place], [address] Urea nitrogen [Mass/Vol] 10 mg/dL Normal 4-19 [facility] Comment on above: Order Comment: 304-2 Performed By: #### L 501.5200, L100.0500, L500.2500 #### [facility] [address] [place], [address] CBC-Complete Blood Cnt No Di ffon 02-01-2025 Erythrocyte distribution width (RBC) [Ratio] 13.2 % Normal 11.6-14.6 [facility] Comment on above: Order Comment: 304-2 Performed By: #### L 501.5200, L100.0500, L500.2500 #### [facility] [address] [place], [address] Hematocrit (Bld) [Volume fraction] 36.0 % Low 40-54 [facility] Comment on above: Order Comment: 304-2 Performed By: #### L 501.5200, L100.0500, L500.2500 #### [facility] [address] [place], [address] Hemoglobin (Bld) [Mass/Vol] 12.7 g/dL Low 13.0-16.5 [facility] Comment on above: Order Comment: 304-2 Performed By: #### L 501.5200, L100.0500, L500.2500 #### [facility] [address] [place], [address] MCH (RBC) [Entitic mass] 32.6 pg High 27.0-32.0 [facility] Comment on above: Order Comment: 304-2 Performed By: #### L 501.5200, L100.0500, L500.2500 #### [facility] [address] [place], [address] MCHC (RBC) [Mass/Vol] 35.3 g/dL Normal 32-36 [facility] Comment on above: Order Comment: 304-2 Performed By: #### L 501.5200, L100.0500, L500.2500 #### [facility] [address] [place], [address] MCV (RBC) [Entitic vol] 92.3 fL Normal 80-94 [facility] Comment on above: Order Comment: 304-2 Performed By: #### L 501.5200, L100.0500, L500.2500 #### [facility] [address] [place], [address] Platelet mean volume (Bld) [Entitic vol] 8.9 fL Normal 6.2-12.0 [facility] Comment on above: Order Comment: 304-2 Performed By: #### L 501.5200, L100.0500, L500.2500 #### [facility] [address] [place], [address] Platelets (Bld) [#/Vol] 158 10*3/uL Normal 150-450 [facility] Comment on above: Order Comment: 304-2 Performed By: #### L 501.5200, L100.0500, L500.2500 #### [facility] [address] [place], [address] RBC (Bld) [#/Vol] 3.90 10*6/uL Low 4.6-6.2 [facility] Comment on above: Order Comment: 304-2 Performed By: #### L 501.5200, L100.0500, L500.2500 #### [facility] [address] [place], [address] RDW SD 44.3 fl High 35.1-43.9 [facility] Comment on above: Order Comment: 304-2 Performed By: #### L 501.5200, L100.0500, L500.2500 #### [facility] [address] [place], [address] WBC (Bld) [#/Vol] 6.1 10*3/uL Normal 4.4-11.0 [facility] Comment on above: Order Comment: 304-2 Performed By: #### L 501.5200, L100.0500, L500.2500 #### [facility] [address] [place], [address] Carbon dioxide, total [Moles /volume] in Central venous bloodOrdered By: Avani Eduardo on 02-01-2025 CO2 [Moles/Vol] 25.5 mmol/L 21.0-32.0 [facility] Chloride assayOrdered By: Adriel Eduardo on 02-01-2025 Chloride [Moles/Vol] 98 mmol/L 98-108 [facility] Erythrocyte distribution wid th ratioOrdered By: Avani Eduardo on 02-01-2025 Erythrocyte distribution width (RBC) [Ratio] 13.2 % 11.6-14.6 [facility] Erythrocyte distribution wid th standard deviationOrdered By: Avani Eduardo on 02-01-2025 Erythrocyte distribution width (RBC) [Ratio] 44.3 fl High 35.1-43.9 [facility] Glomerular filtration rate ( GFR) estimation/1.73 sq m using serum, plasma, or whole bOrdered By: Avani Eduardo on 02-01-2025 GFR/1.73 sq M.predicted among non-blacks MDRD (S/P/Bld) [Vol rate/Area] 99 mL/min/{1.73_m2} >60 [facility] Comment on above: mL/min/1.73m2 CKD-EP I Creatinine Equation (2020) Hematocrit Auto (Bld) [Volum e fraction]Ordered By: Avani Eduardo on 02-01-2025 Hematocrit (Bld) [Volume fraction] 36.0 % Low 40-54 [facility] Hemoglobin measurementOrdere d By: Avani Eduardo on 02-01-2025 Hemoglobin (Bld) [Mass/Vol] 12.7 g/dL Low 13.0-16.5 [facility] MCV (mean corpuscular volume ) determinationOrdered By: Avani Eduardo on 02-01-2025 MCV (RBC) [Entitic vol] 92.3 fL 80-94 [facility] Magnesiumon 02-01-2025 Magnesium [Mass/Vol] 2.2 mg/dL Normal 1.5-2.2 [facility] Comment on above: Order Comment: 304-2 Performed By: #### L 501.5200, L100.0500, L500.2500 #### [facility] [address] [place], [place], [address] Magnesium measurement (mass/ volume)Ordered By: Avani Eduardo on 02-01-2025 Magnesium (Unsp spec) [Mass/Vol] 2.2 mg/dL 1.5-2.2 [facility] Mean corpuscular hemoglobin (MCH) determinationOrdered By: Avani Eduardo on 02-01-2025 MCH (RBC) [Entitic mass] 32.6 pg High 27.0-32.0 [facility] Mean corpuscular hemoglobin concentration (MCHC) determinationOrdered By: Avani Edurado on 02-01-2025 MCHC (RBC) [Mass/Vol] 35.3 g/dL 32-36 [facility] Mean platelet volume determi nationOrdered By: Avani Eduardo on 02-01-2025 Platelet mean volume (Bld) [Entitic vol] 8.9 fL 6.2-12.0 [facility] Platelet countOrdered By: Adriel Eduardo on 02-01-2025 Platelets (Bld) [#/Vol] 158 10*3/uL 150-450 [facility] Potassium measurement (mass/ volume)Ordered By: Avani Eduardo on 02-01-2025 Potassium (Unsp spec) [Mass/Vol] 3.5 mmol/L 3.3-5.1 [facility] RBC Auto (Bld) [#/Vol]Ordere d By: Avani Eduardo on 02-01-2025 RBC (Bld) [#/Vol] 3.90 10*6/uL Low 4.6-6.2 [facility] Serum creatinine measurement (mass/volume)Ordered By: Avani Eduardo on 02-01-2025 Creatinine [Mass/Vol] 0.64 mg/dL Low 0.70-1.20 [facility] Serum glucose measurement (m ass/volume)Ordered By: Avani Eduardo on 02-01-2025 Glucose [Mass/Vol] 203 mg/dL High 70-99 [facility] Serum or plasma calcium minda urement (mass/volume)Ordered By: Avani Eduardo on 02-01-2025 Calcium [Mass/Vol] 8.4 mg/dL 7.6-11.0 [facility] Serum or plasma urea nitroge n measurement (mass/volume)Ordered By: Avani Eduardo on 02-01-2025 Urea nitrogen [Mass/Vol] 10 mg/dL 4-19 [facility] Sodium levelOrdered By: Emmanuel Eduardo on 02-01-2025 Sodium [Moles/Vol] 136 mmol/L 133-145 [facility] White blood cell (WBC) count Ordered By: Avani Eduardo on 02-01-2025 WBC (Bld) [#/Vol] 6.1 10*3/uL 4.4-11.0 [facility] MR/BMSDontae 01-31-2025 MR/BMS.DENIA [facility] [address] [place] [address] OFFICE VISIT Date of Service: 01/31/25 MR#: [id number] Acct: [id number] Name: ANJEL ROSS Rep #: [id number] : 1950 Provider: PIO House Age/Sex: 74/M Location: [facility] Status: Signed Intake Vital Signs [...] bilateral lower extremity arterial duplex performed at [facility] reporting atherosclerotic (more content not included)... Normal [facility] Hemoglobin A1con 01-05-2025 HbA1c (Bld) [Mass fraction] 8.1 % Normal <=5.6 [facility] Comment on above: Order Comment: 304-2 Performed By: #### L 501.9985 #### [facility] [address] [place], [place], [id number] Hemoglobin A1c percentageOrd ered By: Avani Eduardo on 01-05-2025 HbA1c (Bld) [Mass fraction] 8.1 % >5.7 [facility] Serum or plasma valproate me asurement (mass/volume)Ordered By: Avani Eduardo on 01-03-2025 Valproate [Mass/Vol] 56 ug/mL 50-100 [facility] Comment on above: Valproic Acid concen trations >100 ug/mL are potentially toxic. Valproic Acid (Depakene) Lev chandu 01-03-2025 VALPROIC ACID 56 ug/mL Normal 50-100 [facility] Comment on above: Order Comment: 304.2 Result Comment: Valp roic Acid concentrations >100 ug/mL are potentially toxic. Performed By: #### L 501.8100 #### [facility] [address] [place], [place], [address] Anion gap in Serum or Plasma Ordered By: Avani Eduardo on 01-02-2025 Anion gap [Moles/Vol] 17 mmol/L High 5-15 [facility] Automated blood erythrocyte countOrdered By: Avani Eduardo on 01-02-2025 RBC (Bld) [#/Vol] 4.61 10*6/uL Normal 4.6-6.2 [facility] Comment on above: Order Comment: 304-2 Performed By: #### L 501.9985 #### [facility] [address] [place], [place], [address] Automated blood hematocrit ( percentage)Ordered By: Avani Eduardo on 01-02-2025 Hematocrit (Bld) [Volume fraction] 42.7 % Normal 40-54 [facility] Comment on above: Order Comment: 304-2 Performed By: #### L 501.9985 #### [facility] [address] [place], [address] BUN/creatinine ratioOrdered By: Avani Eduardo on 01-02-2025 Urea nitrogen/Creatinine [Mass ratio] 15.2 mg/mg 10-20 [facility] Basic Metabolic Profile (BMP )on 01-02-2025 BUN/CRE 15.2 RATIO Normal 10-20 [facility] Comment on above: Order Comment: 304-2 Performed By: #### L 501.9985 #### [facility] [address] [place], [address] GAP 17 High 5-15 [facility] Comment on above: Order Comment: 304-2 Performed By: #### L 501.9985 #### [facility] [address] [place], [address] CBC-Complete Blood Cnt No Di ffon 01-02-2025 RDW SD 46.2 fl High 35.1-43.9 [facility] Comment on above: Order Comment: 304-2 Performed By: #### L 501.9985 #### [facility] [address] [place], [place], [address] Carbon dioxide, total [Moles /volume] in Central venous bloodOrdered By: Avani Eduardo on 01-02-2025 CO2 [Moles/Vol] 23.4 mmol/L Normal 21.0-32.0 [facility] Comment on above: Order Comment: 304-2 Performed By: #### L 501.9985 #### [facility] [address] [place], [place], [address] Chloride assayOrdered By: Adriel Eduardo on 01-02-2025 Chloride [Moles/Vol] 97 mmol/L Low 98-108 [facility] Comment on above: Order Comment: 304-2 Performed By: #### L 501.9985 #### [facility] [address] [place], [place], [address] Erythrocyte distribution wid th ratioOrdered By: Avani Eduardo on 01-02-2025 Erythrocyte distribution width (RBC) [Ratio] 13.6 % Normal 11.6-14.6 [facility] Comment on above: Order Comment: 304-2 Performed By: #### L 501.9985 #### [facility] [address] [place], [place], [address] Erythrocyte distribution wid th standard deviationOrdered By: Avani Eduardo on 01-02-2025 Erythrocyte distribution width (RBC) [Entitic vol] 46.2 fL High 35.1-43.9 [facility] Erythrocyte distribution width (RBC) [Ratio] 46.2 fl High 35.1-43.9 [facility] GFR/1.73 sq M.predicted maria elena g non-blacks MDRD (S/P/Bld) [Vol rate/Area]Ordered By: Avani Eduardo on 01-02-2025 Estimated GFR (MDRD) Non-Af Amer 90 >60 [facility] Comment on above: mL/min/1.73m2 CKD-EP I Creatinine Equation (2020) Glomerular filtration rate ( GFR) estimation/1.73 sq m using serum, plasma, or whole bOrdered By: Avani Eduardo on 01-02-2025 GFR/1.73 sq M.predicted among non-blacks MDRD (S/P/Bld) [Vol rate/Area] 90 mL/min/{1.73_m2} Normal >60 [facility] Comment on above: mL/min/1.73m2 CKD-EP I Creatinine Equation (2020) Order Comment: 304-2 Result Comment: mL/m in/1.73m2 CKD-EPI Creatinine Equation (2020) Performed By: #### L 501.9985 #### [facility] [address] [place], [place], [address] Hemoglobin measurementOrdere d By: Avani Eduardo on 01-02-2025 Hemoglobin (Bld) [Mass/Vol] 14.8 g/dL Normal 13.0-16.5 [facility] Comment on above: Order Comment: 304-2 Performed By: #### L 501.9985 #### [facility] [address] [place], [place], [id number] MCV (mean corpuscular volume ) determinationOrdered By: Avani Eduardo on 01-02-2025 MCV (RBC) [Entitic vol] 92.6 fL Normal 80-94 [facility] Comment on above: Order Comment: 304-2 Performed By: #### L 501.9985 #### [facility] [address] [place], [place], [id number] Magnesium measurement (mass/ volume)Ordered By: Avani Eduardo on 01-02-2025 Magnesium [Mass/Vol] 2.3 mg/dL High 1.5-2.2 [facility] Comment on above: Order Comment: 304-2 Performed By: #### L 501.9985 #### [facility] [address] [place], [place], [id number] Magnesium (Unsp spec) [Mass/Vol] 2.3 mg/dL High 1.5-2.2 [facility] Mean corpuscular hemoglobin (MCH) determinationOrdered By: Avani Eduardo on 01-02-2025 MCH (RBC) [Entitic mass] 32.1 pg High 27.0-32.0 [facility] Comment on above: Order Comment: 304-2 Performed By: #### L 501.9985 #### [facility] [address] [place], [place], [id number] Mean corpuscular hemoglobin concentration (MCHC) determinationOrdered By: Avani Eduardo on 01-02-2025 MCHC (RBC) [Mass/Vol] 34.7 g/dL Normal 32-36 [facility] Comment on above: Order Comment: 304-2 Performed By: #### L 501.9985 #### [facility] [address] [place], [address] Mean platelet volume determi nationOrdered By: Avani Eduardo on 01-02-2025 Platelet mean volume (Bld) [Entitic vol] 9.1 fL Normal 6.2-12.0 [facility] Comment on above: Order Comment: 304-2 Performed By: #### L 501.9985 #### [facility] [address] [place], [address] Platelet countOrdered By: Adriel Eduardo on 01-02-2025 Platelets (Bld) [#/Vol] 193 10*3/uL Normal 150-450 [facility] Comment on above: Order Comment: 304-2 Performed By: #### L 501.9985 #### [facility] [address] [place], [address] Potassium measurement (mass/ volume)Ordered By: Avani Eduardo on 01-02-2025 Potassium [Moles/Vol] 4.1 mmol/L Normal 3.3-5.1 [facility] Comment on above: Hemolysis present, R esults could be affected. Order Comment: 304-2 Result Comment: Hemo lysis present, Results??could be affected. ?? Performed By: #### L 501.9985 #### [facility] [address] [place], [address] Potassium (Unsp spec) [Mass/Vol] 4.1 mmol/L 3.3-5.1 [facility] Comment on above: Hemolysis present, R esults could be affected. Serum creatinine measurement (mass/volume)Ordered By: Avani Eduardo on 01-02-2025 Creatinine [Mass/Vol] 0.87 mg/dL Normal 0.70-1.20 [facility] Comment on above: Order Comment: 304-2 Performed By: #### L 501.9985 #### [facility] [address] [place], [address] Serum glucose measurement (m ass/volume)Ordered By: Avani Eduardo on 01-02-2025 Glucose [Mass/Vol] 223 mg/dL High 70-99 [facility] Comment on above: Order Comment: 304-2 Performed By: #### L 501.9985 #### [facility] [address] [place], [address] Serum or plasma calcium minda urement (mass/volume)Ordered By: Avani Eduardo on 01-02-2025 Calcium [Mass/Vol] 9.7 mg/dL Normal 7.6-11.0 [facility] Comment on above: Order Comment: 304-2 Performed By: #### L 501.9985 #### [facility] [address] [place], [address] Serum or plasma urea nitroge n measurement (mass/volume)Ordered By: Avani Eduardo on 01-02-2025 Urea nitrogen [Mass/Vol] 13 mg/dL Normal 4-19 [facility] Comment on above: Order Comment: 304-2 Performed By: #### L 501.9985 #### [facility] [address] [place], [address] Sodium levelOrdered By: Emmanuel Eduardo on 01-02-2025 Sodium [Moles/Vol] 138 mmol/L Normal 133-145 [facility] Comment on above: Order Comment: 304-2 Performed By: #### L 501.9985 #### [facility] [address] [place], [address] White blood cell (WBC) count Ordered By: Avani Eduardo on 01-02-2025 WBC (Bld) [#/Vol] 9.9 10*3/uL Normal 4.4-11.0 [facility] Comment on above: Order Comment: 304-2 Performed By: #### L 501.9985 #### [facility] [address] [place], [place], [id number] Calculated very low density lipoprotein (VLDL) cholesterol measurementOrdered By: Avani Eduardo on 12-06-2024 Calculated very low density lipoprotein (VLDL) cholesterol measurement 49 mg/dL High 5-40 [facility] VLDL Cholesterol 49 mg/dL High 5-40 [facility] LDL calc ser/plasOrdered By: Avani Eduardo on 12-06-2024 Cholesterol in LDL [Mass/Vol] 61 mg/dL [facility] Comment on above: Isaoidmvwq=210-990 m g/dL & Higher Usco=547 mg/dL or greater LDL Cholesterol, Calculated 61 mg/dL [facility] Comment on above: Xjzwzyiysw=799-553 m g/dL & Higher Dpki=371 mg/dL or greater Lipid Profileon 12-06-2024 CHOL:HDL 4.46 Normal [facility] Comment on above: Order Comment: 304-2 Performed By: #### L 501.5200, L100.0500, L500.2500 #### [facility] [address] [place], [place], [id number] Cholesterol [Mass/Vol] 141 mg/dL Normal <=200 [facility] Comment on above: Order Comment: 304-2 Result Comment: Chol esterol level, Desirable <200 mg/dL Borderline high cholesterol 200-239 mg/dL High cholesterol >=240 mg/dL Recommendations of the NCEP Adult Treatment Panel for the following risk-cutoff thresholds for the [place] population. Performed By: #### L 501.5200, L100.0500, L500.2500 #### [facility] [address] [place], [address] Cholesterol in HDL [Mass/Vol] 32 mg/dL Low [facility] Comment on above: Order Comment: 304-2 Result Comment: Luzmaria onal Cholesterol Education Program (NCEP) guidelines: <40 mg/dL: Low HDL-cholesterol (major risk factor for CHD) >= 60 mg/dL: High HDL-cholesterol (negative risk factor for CHD) HDL-cholesterol is affected by a number of factors, e.g. smoking, exercise, hormones, sex and age. Performed By: #### L 501.5200, L100.0500, L500.2500 #### [facility] [address] [place], [address] Cholesterol in LDL [Mass/Vol] 61 mg/dL Normal [facility] Comment on above: Order Comment: 304-2 Result Comment: Bord ziudea=170-181 mg/dL Higher Tajc=477 mg/dL or greater Performed By: #### L 501.5200, L100.0500, L500.2500 #### [facility] [address] [place], [address] Cholesterol in VLDL [Mass/Vol] 49 mg/dL High 5-40 [facility] Comment on above: Order Comment: 304-2 Performed By: #### L 501.5200, L100.0500, L500.2500 #### [facility] [address] [place], [address] Triglyceride [Mass/Vol] 244 mg/dL High [facility] Comment on above: Order Comment: 304-2 Result Comment: The drugs N-Acetylcysteine and Metamizole may falsely depress this assay. Normal range: <150 mg/dL Borderline High: 150-199 mg/dL High: 200-499 mg/dL Very High: >500 mg/dL Performed By: #### L 501.5200, L100.0500, L500.2500 #### [facility] [address] [place], [address] Screening total cholesterol/ high density lipoprotein (HDL) cholesterol ratioOrdered By: Avani Eduardo on 12-06-2024 Cholesterol.total/Chol esterol in HDL [Mass ratio] 4.46 {ratio} [facility] Serum or plasma cholesterol in HDL measurement (mass/volume)Ordered By: Avani Eduardo on 12-06-2024 Cholesterol in HDL [Mass/Vol] 32 mg/dL Low >40 [facility] Comment on above: National Cholesterol Education Program (NCEP) guidelines:<40 mg/dL: Low HDL-cholesterol (major risk factor for CHD)>= 60 mg/dL: High HDL-cholesterol (negative risk factor for CHD)HDL-cholesterol is affected by a number of factors, e.g. smoking, exercise, hormones, sex and age. Serum or plasma cholesterol measurement (mass/volume)Ordered By: Avani Eduardo on 12-06-2024 Cholesterol [Mass/Vol] 141 mg/dL <201 [facility] Comment on above: Cholesterol level, D esirable <200 mg/dLBorderline high cholesterol 200-239 mg/dLHigh cholesterol >=240 mg/dLRecommendations of the NCEP Adult Treatment Panel for the following risk-cutoff thresholds for the [place] population. Triglycerides measurementOrd ered By: Avani Eduardo on 12-06-2024 Triglyceride [Mass/Vol] 244 mg/dL High <199 [facility] Comment on above: The drugs N-Acetylcy steine and Metamizole may falsely depress this assay. Normal range: <150 mg/dLBorderline High: 150-199 mg/dLHigh: 200-499 mg/dLVery High: >500 mg/dL /Bety 11-01-2024 /LINDSAY [facility] [address] [place], [place] [address] OFFICE VISIT Date of Service: 11/01/24 MR#: [id number] Acct: [id number] Name: ANJEL ROSS Rep #: [id number] 2 : 1950 Provider: PIO [facility] Age/Sex: 74/M Location: [facility] Status: Signed Intake Vital Signs [...] of servings: 3 HPI HPI HPI: ANJEL JESSICA, is a 74 M who presents to the office today as referred from [facility]. The only records received from [facility] were [facility] (more content not included)... Normal [facility] Basic Metabolic Profile (BMP )on 10-05-2024 BUN/CRE 18.0 RATIO Normal 10-20 [facility] Comment on above: Order Comment: 304-2 Performed By: #### L 500.2500, L501.5200, L501.9520 #### [facility] [address] [place], [address] CA,Total 8.6 mg/dL Normal 8.5-10.1 [facility] Comment on above: Order Comment: 304-2 Performed By: #### L 500.2500, L501.5200, L501.9520 #### [facility] [address] [place], [address] Chloride [Moles/Vol] 102 mmol/L Normal 98-107 [facility] Comment on above: Order Comment: 304-2 Performed By: #### L 500.2500, L501.5200, L501.9520 #### [facility] [address] [place], [address] CO2 [Moles/Vol] 32.0 mmol/L Normal 21.0-32.0 [facility] Comment on above: Order Comment: 304-2 Performed By: #### L 500.2500, L501.5200, L501.9520 #### [facility] [address] [place], [address] Creatinine [Mass/Vol] 0.61 mg/dL Low 0.70-1.30 [facility] Comment on above: Order Comment: 304-2 Result Comment: The validity of the calculated GFR GFRAA in patients over 70 years has not been determined. Clinical correlation is essential. Performed By: #### L 500.2500, L501.5200, L501.9520 #### [facility] [address] [place], [address] EST GFR - AA 166 mL/min Normal >60 [facility] Comment on above: Order Comment: 304-2 Result Comment: Afri can Russian GFR Calc Performed By: #### L 500.2500, L501.5200, L501.9520 #### [facility] [address] [place], [address] GAP 6 Normal 5-15 [facility] Comment on above: Order Comment: 304-2 Performed By: #### L 500.2500, L501.5200, L501.9520 #### [facility] [address] [place], [address] GFR/1.73 sq M.predicted among non-blacks MDRD (S/P/Bld) [Vol rate/Area] 137 mL/min/{1.73_m2} Normal >60 [facility] Comment on above: Order Comment: 304-2 Result Comment: Non- GFR Calc Performed By: #### L 500.2500, L501.5200, L501.9520 #### [facility] [address] [place], [address] Glucose [Mass/Vol] 176 mg/dL High 74-106 [facility] Comment on above: Order Comment: 304-2 Result Comment: Fast ing Glucose result greater than or equal to 126 mg/dL suggests DIABETES MELLITUS per A.D.A. criteria. Performed By: #### L 500.2500, L501.5200, L501.9520 #### [facility] [address] [place], [address] Potassium [Moles/Vol] 3.4 mmol/L Low 3.5-5.1 [facility] Comment on above: Order Comment: 304-2 Performed By: #### L 500.2500, L501.5200, L501.9520 #### [facility] [address] [place], [address] Sodium [Moles/Vol] 140 mmol/L Normal 136-145 [facility] Comment on above: Order Comment: 304-2 Performed By: #### L 500.2500, L501.5200, L501.9520 #### [facility] [address] [place], [address] Urea nitrogen [Mass/Vol] 11 mg/dL Normal 7-18 [facility] Comment on above: Order Comment: 304-2 Performed By: #### L 500.2500, L501.5200, L501.9520 #### [facility] [address] [place], [address] Blood urea nitrogen (BUN)/cr eatinine ratioOrdered By: Avani Eduardo on 10-05-2024 Urea nitrogen/Creatinine [Mass ratio] 18.0 mg/mg 10-20 [facility] Carbon dioxide measurementOr dered By: Avani Eduardo on 10-05-2024 CO2 [Moles/Vol] 32.0 mmol/L 21.0-32.0 [facility] Chloride measurementOrdered By: Avani Eduardo on 10-05-2024 Chloride [Moles/Vol] 102 mmol/L 98-107 [facility] Estimated glomerular filtrat ion rate (GFR) AmericanOrdered By: Avani Eduardo on 10-05-2024 Estimated GFR (MDRD) Amer 166 mL/min >60 [facility] Comment on above: GFR Calc Glomerular filtration rate ( GFR) estimationOrdered By: Avani Eduardo on 10-05-2024 Estimated GFR (MDRD) Non-Af Amer 137 mL/min >60 [facility] Comment on above: Non- GFR Calc Glucose measurementOrdered B y: Avani Eduardo on 10-05-2024 Glucose [Mass/Vol] 176 mg/dL High 74-106 [facility] Comment on above: Fasting Glucose resu lt greater than or equal to 126 mg/dL suggests DIABETES MELLITUS per A.D.A. criteria. Magnesiumon 10-05-2024 Magnesium [Mass/Vol] 2.3 mg/dL Normal 1.6-2.6 [facility] Comment on above: Order Comment: 304-2 Performed By: #### L 500.2500, L501.5200, L501.9520 #### [facility] [address] [place], [address] Magnesium measurementOrdered By: Avani Eduardo on 10-05-2024 Magnesium [Mass/Vol] 2.3 mg/dL 1.6-2.6 [facility] Potassium measurementOrdered By: Avani Eduardo on 10-05-2024 Potassium [Moles/Vol] 3.4 mmol/L Low 3.5-5.1 [facility] Serum anion gap measurementO rdered By: Avani Eduardo on 10-05-2024 Anion gap [Moles/Vol] 6 mmol/L 5-15 [facility] Serum or plasma calcium minda urement (mass/volume)Ordered By: Avani Eduardo on 10-05-2024 Calcium [Mass/Vol] 8.6 mg/dL 8.5-10.1 [facility] Serum or plasma creatinine m easurement (mass/volume)Ordered By: Avani Eduardo on 10-05-2024 Creatinine [Mass/Vol] 0.61 mg/dL Low 0.70-1.30 [facility] Comment on above: The validity of the calculated GFR & GFRAA in patients over 70 years has not been determined. Clinical correlation is essential. Serum or plasma urea nitroge n measurement (mass/volume)Ordered By: Avani Eduardo on 10-05-2024 Urea nitrogen [Mass/Vol] 11 mg/dL 7-18 [facility] Sodium levelOrdered By: Emmanuel Eduardo on 10-05-2024 Sodium [Moles/Vol] 140 mmol/L 136-145 [facility] TSH QnOrdered By: Avani smith on 10-05-2024 Thyroid Stimulating Hormone (TSH) 1.740 uIU/mL 0.358-3.74 0 [facility] Thyroid Stim Hormone (TSH)on 10-05-2024 TSH 1.740 uIU/mL Normal 0.358-3.74 0 [facility] Comment on above: Order Comment: 304-2 Performed By: #### L 500.2500, L501.5200, L501.9520 #### [facility] [address] [place], [address] Absolute neutrophil countOrd ered By: Avani Eduardo on 09-29-2024 Neutrophils (Bld) [#/Vol] 3.1 10*3/uL 2.0-7.7 [facility] Automated blood erythrocyte countOrdered By: Avani Eduardo on 09-29-2024 RBC (Bld) [#/Vol] 4.23 10*6/uL Low 4.6-6.2 [facility] Comment on above: Performed By: #### L 100.0100, L501.6710 #### [facility] [address] [place], [address] Automated blood hematocrit ( percentage)Ordered By: Avani Eduardo on 09-29-2024 Hematocrit (Bld) [Volume fraction] 39.4 % Low 40-54 [facility] Comment on above: Performed By: #### L 100.0100, L501.6710 #### [facility] [address] [place], [address] Automated lymphocyte count a s percentage of total leukocytesOrdered By: Avani Eduardo on 09-29-2024 Lymphocytes/100 WBC (Bld) 38.9 % Normal 19-41 [facility] Comment on above: Performed By: #### L 100.0100, L501.6710 #### [facility] [address] [place], [address] Basophil percentageOrdered B y: Avani Eduardo on 09-29-2024 Basophils/100 WBC (Bld) 0.8 % Normal 0-1 [facility] Comment on above: Performed By: #### L 100.0100, L501.6710 #### [facility] [address] [place], [address] C-reactive protein measureme nt by high sensitivity methodOrdered By: Avani Eduardo on 09-29-2024 C-Reactive Protein Extended Range 3.29 mg/L High 0.0-3.0 [facility] Comment on above: C-Reactive Protein ( CRP) provides useful information for thediagnosis, therapy and monitoring of inflammatory processesand associated diseases. For the evaluation of Relative Riskfor Cardiovascular Disease, a High Sensitivity CRP (HSCRP)should be ordered. CBC W/Diff, Automatedon 09-04 Absolute Lymph 2.76 X10 3/uL Normal 0.83-4.51 [facility] Comment on above: Performed By: #### L 100.0100, L5.6710 #### [facility] [address] [place], [address] Absolute Neut 3.1 X10 3/uL Normal 2.0-7.7 [facility] Comment on above: Performed By: #### L 100.0100, L5.6710 #### [facility] [address] [place], [address] IG% 0.600 Normal 0.0-0.9 [facility] Comment on above: Result Comment: IG% - Immature Granulocytes (promyelocytes, myelocytes and metamyelocytes) > 1% indicates that a LEFT SHIFT is Present. Performed By: #### L 100.0100, L501.6710 #### [facility] [address] [place], [address] Nucleated RBC (Bld) [#/Vol] 0 10*3/uL Normal 0-5 [facility] Comment on above: Performed By: #### L 100.0100, L5.6710 #### [facility] [address] [place], [address] RDW SD 45.4 fl High 35.1-43.9 [facility] Comment on above: Performed By: #### L 100.0100, L5.6710 #### [facility] [address] [place], [address] CRPon 09-29-2024 C-REACTIVE PROT 3.29 mg/L High 0.0-3.0 [facility] Comment on above: Result Comment: C-Re active Protein (CRP) provides useful information for the diagnosis, therapy and monitoring of inflammatory processes and associated diseases. For the evaluation of Relative Risk for Cardiovascular Disease, a High Sensitivity CRP (HSCRP) should be ordered. Performed By: #### L 100.0100, L501.6710 #### [facility] [address] [place], [address] Eosinophil percentageOrdered By: Avani Eduardo on 09-29-2024 Eosinophils/100 WBC (Bld) 2.4 % Normal 0-5 [facility] Comment on above: Performed By: #### L 100.0100, L5.6710 #### [facility] [address] [place], [address] Erythrocyte distribution wid th ratioOrdered By: Avani Eduardo on 09-29-2024 Erythrocyte distribution width (RBC) [Ratio] 13.4 % Normal 11.6-14.6 [facility] Comment on above: Performed By: #### L 100.0100, L5.6710 #### [facility] [address] [place], [address] Erythrocyte distribution wid th standard deviationOrdered By: Avani Eduardo on 09-29-2024 Erythrocyte distribution width (RBC) [Entitic vol] 45.4 fL High 35.1-43.9 [facility] Hemoglobin measurementOrdere d By: Avani Eduardo on 09-29-2024 Hemoglobin (Bld) [Mass/Vol] 13.1 g/dL Normal 13.0-16.5 [facility] Comment on above: Performed By: #### L 100.0100, L501.6710 #### [facility] [address] [place], [address] Immature granulocytes/100 WB C Auto (Bld)Ordered By: Avani Eduardo on 09-29-2024 Immature granulocytes/100 WBC (Bld) 0.600 % 0.0-0.9 [facility] Comment on above: IG% - Immature Granu locytes (promyelocytes, myelocytes and metamyelocytes) > 1% indicates that a LEFT SHIFT is Present. Lymphocytes Auto (Unsp spec) [#/Vol]Ordered By: Avani Eduardo on 09-29-2024 Lymphocytes (Bld) [#/Vol] 2.76 10*3/uL 0.83-4.51 [facility] MCV (mean corpuscular volume ) determinationOrdered By: Avani Eduardo on 09-29-2024 MCV (RBC) [Entitic vol] 93.1 fL Normal 80-94 [facility] Comment on above: Performed By: #### L 100.0100, L501.6710 #### [facility] [address] [place], [address] Mean corpuscular hemoglobin (MCH) determinationOrdered By: Avani Eduardo on 09-29-2024 MCH (RBC) [Entitic mass] 31.0 pg Normal 27.0-32.0 [facility] Comment on above: Performed By: #### L 100.0100, L501.6710 #### [facility] [address] [place], [address] Mean corpuscular hemoglobin concentration (MCHC) determinationOrdered By: Avani Eduardo on 09-29-2024 MCHC (RBC) [Mass/Vol] 33.2 g/dL Normal 32-36 [facility] Comment on above: Performed By: #### L 100.0100, L501.6710 #### [facility] [address] [place], [address] Mean platelet volume determi nationOrdered By: Avani Eduardo on 09-29-2024 Platelet mean volume (Bld) [Entitic vol] 9.4 fL Normal 6.2-12.0 [facility] Comment on above: Performed By: #### L 100.0100, L501.6710 #### [facility] [address] [place], [address] Monocyte percentageOrdered B y: Avani Eduardo on 09-29-2024 Monocytes/100 WBC (Bld) 14.1 % High 0-10 [facility] Comment on above: Performed By: #### L 100.0100, L501.6710 #### [facility] [address] [place], [address] Neutrophil percentageOrdered By: Avani Eduardo on 09-29-2024 Neutrophils/100 WBC (Bld) 43.2 % Low 47-70 [facility] Comment on above: Performed By: #### L 100.0100, L501.6710 #### [facility] [address] [place], [address] Nucleated red blood cell per centageOrdered By: Avani Eduardo on 09-29-2024 Nucleated RBC/100 WBC (Bld) [Ratio] 0 % 0-5 [facility] Platelet countOrdered By: Adriel Eduardo on 09-29-2024 Platelets (Bld) [#/Vol] 203 10*3/uL Normal 150-450 [facility] Comment on above: Performed By: #### L 100.0100, L501.6710 #### [facility] [address] [place], [address] White blood cell (WBC) count Ordered By: Avani Eduardo on 09-29-2024 WBC (Bld) [#/Vol] 7.1 10*3/uL Normal 4.4-11.0 [facility] Comment on above: Performed By: #### L 100.0100, L501.6710 #### [facility] [address] [place], [address] Basophil percentageOrdered B y: Avani Eduardo on 01-10-2024 Bilirubin [Mass/Vol] 0.50 mg/dL 0.20-1.00 [facility] Comment on above: For patients on eltr ombopag therapy, use of Dimension Mobile TBIL is not recommended. Chloride [Moles/Vol] 101 mmol/L 98-107 [facility] Glucose [Mass/Vol] 110 mg/dL 74-106 [facility] Comment on above: Fasting Glucose resu lt from 100 to 125 mg/dL suggests IMPAIRED HOMEOSTASIS per A.D.A. criteria. Hemoglobin (Bld) [Mass/Vol] 12.4 g/dL 13.0-16.5 [facility] Potassium [Moles/Vol] 3.1 mmol/L 3.5-5.1 [facility] Protein [Mass/Vol] 6.0 g/dL 6.4-8.2 [facility] Sodium [Moles/Vol] 139 mmol/L 136-145 [facility] WBC (Bld) [#/Vol] 5.9 10*3/uL 4.4-11.0 [facility] Determination of erythrocyte mean corpuscular volume (MCV)Ordered By: Avani Eduardo on 01-10-2024 MCV (RBC) [Entitic vol] 92.2 fL 80-94 [facility] Erythrocyte distribution wid th ratioOrdered By: Avani Eduardo on 01-10-2024 Erythrocyte distribution width (RBC) [Ratio] 13.1 % 11.6-14.6 [facility] Erythrocyte distribution wid th standard deviationOrdered By: Avani Eduardo on 01-10-2024 Erythrocyte distribution width (RBC) [Entitic vol] 44.1 fL 35.1-43.9 [facility] Hematocrit Auto (Bld) [Volum e fraction]Ordered By: Avani Eduardo on 01-10-2024 Hematocrit (Bld) [Volume fraction] 37.7 % 40-54 [facility] - Chemistry and C hemistry - challengeOrdered By: Avani Eduardo on 01-10-2024 Albumin/Globulin [Mass ratio] 0.8 {ratio} 0.9-2.4 [facility] ALP [Catalytic activity/Vol] 55 U/L 45-117 [facility] ALT [Catalytic activity/Vol] 20 U/L 16-61 [facility] CO2 [Moles/Vol] 32.0 mmol/L 21.0-32.0 [facility] Globulin (S) [Mass/Vol] 3.4 g/dL 2.2-4.2 [facility] Magnesium [Mass/Vol] 2.4 mg/dL 1.6-2.6 [facility] Urea nitrogen/Creatinine [Mass ratio] 20.2 mg/mg 10-20 [facility] Laboratory - Hematology and Cell countsOrdered By: Avani Eduardo on 01-10-2024 MCH (RBC) [Entitic mass] 30.3 pg 27.0-32.0 [facility] MCHC (RBC) [Mass/Vol] 32.9 g/dL 32-36 [facility] Platelet mean volume (Bld) [Entitic vol] 8.9 fL 6.2-12.0 [facility] Platelets (Bld) [#/Vol] 175 10*3/uL 150-450 [facility] No Panel InformationOrdered By: Avani Eduardo on 01-10-2024 Estimated GFR (MDRD) Amer 156 mL/min >60 [facility] Comment on above: GFR Calc Estimated GFR (MDRD) Non-Af Amer 129 mL/min >60 [facility] Comment on above: Non- GFR Calc RBC Auto (Bld) [#/Vol]Ordere d By: Avani Eduardo on 01-10-2024 RBC (Bld) [#/Vol] 4.09 10*6/uL 4.6-6.2 [facility] Serum or plasma calcium minda urement (mass/volume)Ordered By: Avani Eduardo on 01-10-2024 Calcium [Mass/Vol] 8.6 mg/dL 8.5-10.1 [facility] Serum or plasma creatinine m easurement (mass/volume)Ordered By: Avani Eduardo on 01-10-2024 Creatinine [Mass/Vol] 0.64 mg/dL 0.70-1.30 [facility] [place] Comment on above: The validity of the calculated GFR & GFRAA in patients over 70 years has not been determined. Clinical correlation is essential. Serum or plasma urea nitroge n measurement (mass/volume)Ordered By: Avani Eduardo on 01-10-2024 Urea nitrogen [Mass/Vol] 13 mg/dL 7-18 [facility] Thin prep Papanicolaou smear with manual screeningOrdered By: Avani Eduardo on 01-10-2024 Thin prep Papanicolaou smear with manual screening 2.6 g/dL 3.2-5.0 [facility] Thin prep Papanicolaou smear with manual screening 26 U/L 15-37 [facility] Thin prep Papanicolaou smear with manual screening 6 5-15 [facility] Basophil percentageOrdered B y: Avani Eduardo on 01-03-2024 Bilirubin [Mass/Vol] 0.50 mg/dL 0.20-1.00 [facility] Comment on above: For patients on eltr ombopag therapy, use of [employer] TBIL is not recommended. Chloride [Moles/Vol] 103 mmol/L 98-107 [facility] Glucose [Mass/Vol] 131 mg/dL 74-106 [facility] Comment on above: Fasting Glucose resu lt greater than or equal to 126 mg/dL suggests DIABETES MELLITUS per A.D.A. criteria. Hemoglobin (Bld) [Mass/Vol] 12.1 g/dL 13.0-16.5 [facility] Potassium [Moles/Vol] 3.2 mmol/L 3.5-5.1 [facility] Protein [Mass/Vol] 5.8 g/dL 6.4-8.2 [facility] Sodium [Moles/Vol] 139 mmol/L 136-145 [facility] WBC (Bld) [#/Vol] 5.4 10*3/uL 4.4-11.0 [facility] Determination of erythrocyte mean corpuscular volume (MCV)Ordered By: Avani Eduardo on 01-03-2024 MCV (RBC) [Entitic vol] 92.0 fL 80-94 [facility] Erythrocyte distribution wid th ratioOrdered By: Avani Eduardo on 01-03-2024 Erythrocyte distribution width (RBC) [Ratio] 13.2 % 11.6-14.6 [facility] Erythrocyte distribution wid th standard deviationOrdered By: Avani Eduardo on 01-03-2024 Erythrocyte distribution width (RBC) [Entitic vol] 45.0 fL 35.1-43.9 [facility] Hematocrit Auto (Bld) [Volum e fraction]Ordered By: Avani Eduardo on 01-03-2024 Hematocrit (Bld) [Volume fraction] 35.8 % 40-54 [facility] Laboratory - Chemistry and C hemistry - challengeOrdered By: Avani Eduardo on 01-03-2024 Albumin/Globulin [Mass ratio] 0.8 {ratio} 0.9-2.4 [facility] ALP [Catalytic activity/Vol] 52 U/L 45-117 [facility] ALT [Catalytic activity/Vol] 18 U/L 16-61 [facility] CO2 [Moles/Vol] 31.0 mmol/L 21.0-32.0 [facility] Globulin (S) [Mass/Vol] 3.3 g/dL 2.2-4.2 [facility] Magnesium [Mass/Vol] 2.2 mg/dL 1.6-2.6 [facility] Urea nitrogen/Creatinine [Mass ratio] 20.9 mg/mg 10-20 [facility] Laboratory - Hematology and Cell countsOrdered By: Avani Eduardo on 01-03-2024 MCH (RBC) [Entitic mass] 31.1 pg 27.0-32.0 [facility] MCHC (RBC) [Mass/Vol] 33.8 g/dL 32-36 [facility] Platelet mean volume (Bld) [Entitic vol] 9.3 fL 6.2-12.0 [facility] Platelets (Bld) [#/Vol] 140 10*3/uL 150-450 [facility] No Panel InformationOrdered By: Avani Eduardo on 01-03-2024 Estimated GFR (MDRD) Amer 162 mL/min >60 [facility] Comment on above: GFR Calc Estimated GFR (MDRD) Non-Af Amer 134 mL/min >60 [facility] Comment on above: Non- GFR Calc RBC Auto (Bld) [#/Vol]Ordere d By: Avani Eduardo on 01-03-2024 RBC (Bld) [#/Vol] 3.89 10*6/uL 4.6-6.2 [facility] Serum or plasma calcium minda urement (mass/volume)Ordered By: Avani Eduardo on 01-03-2024 Calcium [Mass/Vol] 8.7 mg/dL 8.5-10.1 [facility] Serum or plasma creatinine m easurement (mass/volume)Ordered By: Avani Eduardo on 01-03-2024 Creatinine [Mass/Vol] 0.62 mg/dL 0.70-1.30 [facility] Comment on above: The validity of the calculated GFR & GFRAA in patients over 70 years has not been determined. Clinical correlation is essential. Serum or plasma urea nitroge n measurement (mass/volume)Ordered By: Avani Eduardo on 01-03-2024 Urea nitrogen [Mass/Vol] 13 mg/dL 7-18 [facility] Thin prep Papanicolaou smear with manual screeningOrdered By: Avanigómez Eduardo on 01-03-2024 Thin prep Papanicolaou smear with manual screening 2.5 g/dL 3.2-5.0 [facility] Thin prep Papanicolaou smear with manual screening 22 U/L 15-37 [facility] Thin prep Papanicolaou smear with manual screening 5 5-15 [facility] Serum or plasma thyroid stim ulating hormone (TSH) measurement (units/volume)Ordered By: Avani Eduardo on 12-15-2023 TSH Qn 8.74 uIU/mL 0.358-3.74 [facility] Basophil percentageOrdered B y: Avani Eduardo on 11-04-2023 Bilirubin [Mass/Vol] 0.40 mg/dL 0.20-1.00 [facility] Comment on above: For patients on eltr ombopag therapy, use of [employer] TBIL is not recommended. Protein [Mass/Vol] 6.9 g/dL 6.4-8.2 [facility] Direct bilirubinOrdered By: Avani Eduardo on 02-01-2024 Bilirubin.direct [Mass/Vol] 0.13 mg/dL 0.00-0.30 [facility] Laboratory - Chemistry and C hemistry - challengeOrdered By: Avani Eduardo on 11-04-2023 ALP [Catalytic activity/Vol] 66 U/L 45-117 [facility] ALT [Catalytic activity/Vol] 28 U/L 16-61 [facility] Globulin (S) [Mass/Vol] 4.0 g/dL 2.2-4.2 [facility] Thin prep Papanicolaou smear with manual screeningOrdered By: Avanigómez Eduardo on 11-04-2023 Thin prep Papanicolaou smear with manual screening 2.9 g/dL 3.2-5.0 [facility] Thin prep Papanicolaou smear with manual screening 22 U/L 15-37 [facility] Absolute lymphocyte countOrd ered By: Avanigómez Eduardo on 10-20-2023 Lymphocytes Auto (Unsp spec) [#/Vol] 2.41 10*3/uL 0.83-4.51 [facility] Automated lymphocyte count a s percentage of total leukocytesOrdered By: Avanigómez Eduardo on 10-20-2023 Lymphocytes/100 WBC Auto (Unsp spec) 34.2 % 19-41 [facility] Basophil percentageOrdered B y: Avani Eduardo on 10-20-2023 Basophils/100 WBC (Bld) 0.6 % 0-1 [facility] Chloride [Moles/Vol] 101 mmol/L 98-107 [facility] Eosinophils/100 WBC (Bld) 2.0 % 0-5 [facility] Glucose [Mass/Vol] 142 mg/dL 74-106 [facility] Comment on above: Fasting Glucose resu lt greater than or equal to 126 mg/dL suggests DIABETES MELLITUS per A.D.A. criteria. Hemoglobin (Bld) [Mass/Vol] 14.2 g/dL 13.0-16.5 [facility] Monocytes/100 WBC (Bld) 12.8 % 0-10 [facility] Neutrophils (Bld) [#/Vol] 3.5 10*3/uL 2.0-7.7 [facility] Neutrophils/100 WBC (Bld) 49.5 % 47-70 [facility] Potassium [Moles/Vol] 3.6 mmol/L 3.5-5.1 [facility] Sodium [Moles/Vol] 139 mmol/L 136-145 [facility] WBC (Bld) [#/Vol] 7.0 10*3/uL 4.4-11.0 [facility] Determination of erythrocyte mean corpuscular volume (MCV)Ordered By: Avani Eduardo on 10-20-2023 MCV (RBC) [Entitic vol] 91.9 fL 80-94 [facility] Erythrocyte distribution wid th ratioOrdered By: Avanigómez Eduardo on 10-20-2023 Erythrocyte distribution width (RBC) [Ratio] 13.2 % 11.6-14.6 [facility] Erythrocyte distribution wid th standard deviationOrdered By: Avanigómez Eduardo on 10-20-2023 Erythrocyte distribution width (RBC) [Entitic vol] 44.6 fL 35.1-43.9 [facility] Hematocrit Auto (Bld) [Volum e fraction]Ordered By: Avani Eduardo on 10-20-2023 Hematocrit (Bld) [Volume fraction] 43.0 % 40-54 [facility] Immature granulocytes/100 WB C Auto (Bld)Ordered By: Avani Eduardo on 10-20-2023 Immature granulocytes/100 WBC (Bld) 0.900 % 0.0-0.9 [facility] Comment on above: IG% - Immature Granu locytes (promyelocytes, myelocytes and metamyelocytes) > 1% indicates that a LEFT SHIFT is Present. Laboratory - Chemistry and C hemistry - challengeOrdered By: Avani Eduardo on 10-20-2023 CO2 [Moles/Vol] 33.0 mmol/L 21.0-32.0 [facility] Urea nitrogen/Creatinine [Mass ratio] 16.5 mg/mg 10-20 [facility] Laboratory - Hematology and Cell countsOrdered By: Avani Eduardo on 10-20-2023 MCH (RBC) [Entitic mass] 30.3 pg 27.0-32.0 [facility] MCHC (RBC) [Mass/Vol] 33.0 g/dL 32-36 [facility] Nucleated RBC/100 WBC (Bld) [Ratio] 0 % 0-5 [facility] Platelets (Bld) [#/Vol] 197 10*3/uL 150-450 [facility] No Panel InformationOrdered By: Avani Eduardo on 10-20-2023 Estimated GFR (MDRD) Amer 114 mL/min >60 [facility] Comment on above: GFR Calc Estimated GFR (MDRD) Non-Af Amer 94 mL/min >60 [facility] Comment on above: Non- GFR Calc Platelet mean volume Riaz-Ec ker (Bld) [Entitic vol]Ordered By: Avani Eduardo on 10-20-2023 Platelet mean volume (Bld) [Entitic vol] 8.6 fL 6.2-12.0 [facility] RBC Auto (Bld) [#/Vol]Ordere d By: Avani Eduardo on 10-20-2023 RBC (Bld) [#/Vol] 4.68 10*6/uL 4.6-6.2 [facility] Serum or plasma calcium minda urement (mass/volume)Ordered By: Avani Eduardo on 10-20-2023 Calcium [Mass/Vol] 9.4 mg/dL 8.5-10.1 [facility] Serum or plasma creatinine m easurement (mass/volume)Ordered By: Avani Eduardo on 10-20-2023 Creatinine [Mass/Vol] 0.85 mg/dL 0.70-1.30 [facility] Comment on above: The validity of the calculated GFR & GFRAA in patients over 70 years has not been determined. Clinical correlation is essential. Serum or plasma urea nitroge n measurement (mass/volume)Ordered By: Avani Eduardo on 10-20-2023 Urea nitrogen [Mass/Vol] 14 mg/dL 7-18 [facility] Thin prep Papanicolaou smear with manual screeningOrdered By: Avani Eduardo on 10-20-2023 Thin prep Papanicolaou smear with manual screening 5 5-15 [facility] Laboratory - Chemistry and C hemistry - challengeOrdered By: Avani Eduardo on 10-11-2023 T4 [Mass/Vol] 10.8 ug/dL 4.5-12.1 [facility] No Panel InformationOrdered By: Avani Eduardo on 10-11-2023 Thyroid Stimulating Hormone (TSH) 5.65 uIU/mL 0.358-3.74 [facility] Basophil percentageOrdered B y: Avani Eduardo on 10-05-2023 Chloride [Moles/Vol] 105 mmol/L 98-107 [facility] Glucose [Mass/Vol] 95 mg/dL 74-106 [facility] Potassium [Moles/Vol] 3.7 mmol/L 3.5-5.1 [facility] Comment on above: Slight Hemolysis, Re sult may be falsely increased. Sodium [Moles/Vol] 139 mmol/L 136-145 [facility] Laboratory - Chemistry and C hemistry - challengeOrdered By: Avani Eduardo on 10-05-2023 CO2 [Moles/Vol] 30.0 mmol/L 21.0-32.0 [facility] Magnesium [Mass/Vol] 2.5 mg/dL 1.6-2.6 [facility] Comment on above: Slight Hemolysis, Re sult may be falsely increased. Urea nitrogen/Creatinine [Mass ratio] 16.3 mg/mg 10-20 [facility] No Panel InformationOrdered By: Avani Eduardo on 10-05-2023 Estimated GFR (MDRD) Amer 134 mL/min >60 [facility] Comment on above: GFR Calc Estimated GFR (MDRD) Non-Af Amer 111 mL/min >60 [facility] Comment on above: Non- GFR Calc Serum or plasma calcium minda urement (mass/volume)Ordered By: Avani Eduardo on 10-05-2023 Calcium [Mass/Vol] 8.0 mg/dL 8.5-10.1 [facility] Serum or plasma creatinine m easurement (mass/volume)Ordered By: Avani Eduardo on 10-05-2023 Creatinine [Mass/Vol] 0.74 mg/dL 0.70-1.30 [facility] [place] Comment on above: The validity of the calculated GFR & GFRAA in patients over 70 years has not been determined. Clinical correlation is essential. Serum or plasma urea nitroge n measurement (mass/volume)Ordered By: Avani Eduardo on 10-05-2023 Urea nitrogen [Mass/Vol] 12 mg/dL 7-18 [facility] Thin prep Papanicolaou smear with manual screeningOrdered By: Avani Eduardo on 10-05-2023 Thin prep Papanicolaou smear with manual screening 4 5-15 [facility] Absolute lymphocyte countOrd ered By: Avani Eduardo on 09-22-2023 Lymphocytes Auto (Unsp spec) [#/Vol] 2.51 10*3/uL 0.83-4.51 [facility] Basophil percentageOrdered B y: Avani Eduardo on 09-22-2023 Basophils/100 WBC (Bld) 0.5 % 0-1 [facility] Chloride [Moles/Vol] 107 mmol/L 98-107 [facility] Eosinophils/100 WBC (Bld) 1.7 % 0-5 [facility] Glucose [Mass/Vol] 123 mg/dL 74-106 [facility] Comment on above: Fasting Glucose resu lt from 100 to 125 mg/dL suggests IMPAIRED HOMEOSTASIS per A.D.A. criteria. Neutrophils (Bld) [#/Vol] 2.3 10*3/uL 2.0-7.7 [facility] Neutrophils/100 WBC (Bld) 38.7 % 47-70 [facility] Potassium [Moles/Vol] 3.7 mmol/L 3.5-5.1 [facility] Sodium [Moles/Vol] 143 mmol/L 136-145 [facility] WBC (Bld) [#/Vol] 5.8 10*3/uL 4.4-11.0 [facility] Blood erythrocytes count (nu mber/volume)Ordered By: Avani Eduardo on 09-22-2023 RBC (Bld) [#/Vol] 4.08 10*6/uL 4.6-6.2 [facility] Blood hemoglobin measurement (mass/volume)Ordered By: Avani Eduardo on 09-22-2023 Hemoglobin (Bld) [Mass/Vol] 12.6 g/dL 13.0-16.5 [facility] Blood lymphocytes/100 leukoc ytesOrdered By: Avani Eduardo on 09-22-2023 Lymphocytes/100 WBC (Bld) 43.1 % 19-41 [facility] Blood monocytes/100 leukocyt esOrdered By: Avani Eduardo on 09-22-2023 Monocytes/100 WBC (Bld) 14.8 % 0-10 [facility] Blood platelet mean volumeOr dered By: Avani Eduardo on 09-22-2023 Platelet mean volume (Bld) [Entitic vol] 8.8 fL 6.2-12.0 [facility] Determination of erythrocyte mean corpuscular volume (MCV)Ordered By: Avani Eduardo on 09-22-2023 MCV (RBC) [Entitic vol] 93.6 fL 80-94 [facility] Hematocrit Auto (Bld) [Volum e fraction]Ordered By: Avani Eduardo on 09-22-2023 Hematocrit (Bld) [Volume fraction] 38.2 % 40-54 [facility] Laboratory - Chemistry and C hemistry - challengeOrdered By: Avani Eduardo on 09-22-2023 CO2 [Moles/Vol] 34.0 mmol/L 21.0-32.0 [facility] Natriuretic peptide B (Bld) [Mass/Vol] 7.4 pg/mL 0-100 [facility] Urea nitrogen/Creatinine [Mass ratio] 24.9 mg/mg 10-20 [facility] Laboratory - Hematology and Cell countsOrdered By: Avani Eduardo on 09-22-2023 Erythrocyte distribution width (RBC) [Entitic vol] 45.8 fL 35.1-43.9 [facility] Erythrocyte distribution width (RBC) [Ratio] 13.3 % 11.6-14.6 [facility] Immature granulocytes/100 WBC (Bld) 1.200 % 0.0-0.9 [facility] Comment on above: IG% - Immature Granu locytes (promyelocytes, myelocytes and metamyelocytes) > 1% indicates that a LEFT SHIFT is Present. MCH (RBC) [Entitic mass] 30.9 pg 27.0-32.0 [facility] Nucleated RBC/100 WBC (Bld) [Ratio] 0 % 0-5 [facility] MCHC Auto (RBC) [Mass/Vol]Or dered By: Avani Eduardo on 09-22-2023 MCHC (RBC) [Mass/Vol] 33.0 g/dL 32-36 [facility] No Panel InformationOrdered By: Avani Eduardo on 09-22-2023 Estimated GFR (MDRD) Amer 146 mL/min >60 [facility] Comment on above: GFR Calc Estimated GFR (MDRD) Non-Af Amer 121 mL/min >60 [facility] Comment on above: Non- GFR Calc Platelets bldOrdered By: Ethan Eduardo on 09-22-2023 Platelets (Bld) [#/Vol] 170 10*3/uL 150-450 [facility] Serum or plasma calcium minda urement (mass/volume)Ordered By: Avani Eduardo on 09-22-2023 Calcium [Mass/Vol] 8.8 mg/dL 8.5-10.1 [facility] Serum or plasma creatinine m easurement (mass/volume)Ordered By: Avani Eduardo on 09-22-2023 Creatinine [Mass/Vol] 0.68 mg/dL 0.70-1.30 [facility] Comment on above: The validity of the calculated GFR & GFRAA in patients over 70 years has not been determined. Clinical correlation is essential. Serum or plasma urea nitroge n measurement (mass/volume)Ordered By: Avani Eduardo on 09-22-2023 Urea nitrogen [Mass/Vol] 17 mg/dL 7-18 [facility] Thin prep Papanicolaou smear with manual screeningOrdered By: Avani Eduardo on 09-22-2023 Thin prep Papanicolaou smear with manual screening 2 5-15 [facility] Basophil percentageOrdered B y: Avani Eduardo on 09-13-2023 Chloride [Moles/Vol] 105 mmol/L 98-107 [facility] Glucose [Mass/Vol] 100 mg/dL 74-106 [facility] Comment on above: Fasting Glucose resu lt from 100 to 125 mg/dL suggests IMPAIRED HOMEOSTASIS per A.D.A. criteria. Potassium [Moles/Vol] 4.3 mmol/L 3.5-5.1 [facility] Sodium [Moles/Vol] 139 mmol/L 136-145 [facility] Laboratory - Chemistry and C hemistry - challengeOrdered By: Avani Eduardo on 09-13-2023 CO2 [Moles/Vol] 28.0 mmol/L 21.0-32.0 [facility] Urea nitrogen/Creatinine [Mass ratio] 21.8 mg/mg 10-20 [facility] No Panel InformationOrdered By: Avani Eduardo on 09-13-2023 Estimated GFR (MDRD) Amer 157 mL/min >60 [facility] Comment on above: GFR Calc Estimated GFR (MDRD) Non-Af Amer 130 mL/min >60 [facility] Comment on above: Non- GFR Calc Serum or plasma calcium minda urement (mass/volume)Ordered By: Avani Eduardo on 09-13-2023 Calcium [Mass/Vol] 8.4 mg/dL 8.5-10.1 [facility] Serum or plasma creatinine m easurement (mass/volume)Ordered By: Avani Eduardo on 09-13-2023 Creatinine [Mass/Vol] 0.64 mg/dL 0.70-1.30 [facility] Comment on above: The validity of the calculated GFR & GFRAA in patients over 70 years has not been determined. Clinical correlation is essential. Serum or plasma urea nitroge n measurement (mass/volume)Ordered By: Avani Eduardo on 09-13-2023 Urea nitrogen [Mass/Vol] 14 mg/dL 7-18 [facility] Thin prep Papanicolaou smear with manual screeningOrdered By: Avani Eduardo on 09-13-2023 Thin prep Papanicolaou smear with manual screening 6 5-15 [facility] No Panel InformationOrdered By: Avani Eduardo on 08-30-2023 Levetiracetam (Keppra) Level 25.0 ug/mL 10.0-40.0 [facility] Comment on above: Performed at: [address] [id number] Director: Jess Bess MD, Phone: [phone] Absolute lymphocyte countOrd ered By: Avani Eduardo on 08-23-2023 Lymphocytes Auto (Unsp spec) [#/Vol] 1.90 10*3/uL 0.83-4.51 [facility] Basophil percentageOrdered B y: Avani Eduardo on 08-23-2023 Basophils/100 WBC (Bld) 0.7 % 0-1 [facility] Chloride [Moles/Vol] 104 mmol/L 98-107 [facility] Eosinophils/100 WBC (Bld) 2.2 % 0-5 [facility] Glucose [Mass/Vol] 122 mg/dL 74-106 [facility] Comment on above: Fasting Glucose resu lt from 100 to 125 mg/dL suggests IMPAIRED HOMEOSTASIS per A.D.A. criteria. Neutrophils (Bld) [#/Vol] 2.5 10*3/uL 2.0-7.7 [facility] Neutrophils/100 WBC (Bld) 45.6 % 47-70 [facility] Potassium [Moles/Vol] 3.7 mmol/L 3.5-5.1 [facility] Sodium [Moles/Vol] 142 mmol/L 136-145 [facility] WBC (Bld) [#/Vol] 5.6 10*3/uL 4.4-11.0 [facility] Blood erythrocytes count (nu mber/volume)Ordered By: Avani Eduardo on 08-23-2023 RBC (Bld) [#/Vol] 4.12 10*6/uL 4.6-6.2 [facility] Blood hemoglobin measurement (mass/volume)Ordered By: Avani Eduardo on 08-23-2023 Hemoglobin (Bld) [Mass/Vol] 12.3 g/dL 13.0-16.5 [facility] Blood lymphocytes/100 leukoc ytesOrdered By: Avani Eduardo on 08-23-2023 Lymphocytes/100 WBC (Bld) 34.2 % 19-41 [facility] Blood monocytes/100 leukocyt esOrdered By: Avani Eduardo on 08-23-2023 Monocytes/100 WBC (Bld) 16.0 % 0-10 [facility] Blood platelet mean volumeOr dered By: Avani Eduardo on 08-23-2023 Platelet mean volume (Bld) [Entitic vol] 9.3 fL 6.2-12.0 [facility] Determination of erythrocyte mean corpuscular volume (MCV)Ordered By: Avani Eduardo on 08-23-2023 MCV (RBC) [Entitic vol] 93.7 fL 80-94 [facility] Hematocrit Auto (Bld) [Volum e fraction]Ordered By: Avani Eduardo on 08-23-2023 Hematocrit (Bld) [Volume fraction] 38.6 % 40-54 [facility] Laboratory - Chemistry and C hemistry - challengeOrdered By: Avani Eduardo on 08-23-2023 CO2 [Moles/Vol] 31.0 mmol/L 21.0-32.0 [facility] Magnesium [Mass/Vol] 2.6 mg/dL 1.6-2.6 [facility] Urea nitrogen/Creatinine [Mass ratio] 26.0 mg/mg 10-20 [facility] Laboratory - Hematology and Cell countsOrdered By: Avani Eduardo on 08-23-2023 Erythrocyte distribution width (RBC) [Entitic vol] 46.4 fL 35.1-43.9 [facility] Erythrocyte distribution width (RBC) [Ratio] 13.4 % 11.6-14.6 [facility] Immature granulocytes/100 WBC (Bld) 1.300 % 0.0-0.9 [facility] Comment on above: IG% - Immature Granu locytes (promyelocytes, myelocytes and metamyelocytes) > 1% indicates that a LEFT SHIFT is Present. MCH (RBC) [Entitic mass] 29.9 pg 27.0-32.0 [facility] Nucleated RBC/100 WBC (Bld) [Ratio] 0 % 0-5 [facility] MCHC Auto (RBC) [Mass/Vol]Or dered By: Avani Eduardo on 08-23-2023 MCHC (RBC) [Mass/Vol] 31.9 g/dL 32-36 [facility] [place] No Panel InformationOrdered By: Avani Eduardo on 08-23-2023 Estimated GFR (MDRD) Amer 144 mL/min >60 [facility] Comment on above: GFR Calc Estimated GFR (MDRD) Non-Af Amer 119 mL/min >60 [facility] Comment on above: Non- GFR Calc Levetiracetam (Keppra) Level 51.4 ug/mL 10.0-40.0 [facility] Comment on above: Performed at: - [address] [id number] Director: Jess Bess MD, Phone: [phone] Valproic Acid (Depakene) Level 60 ug/mL 50-100 [facility] Platelets bldOrdered By: Ethan Eduardo on 08-23-2023 Platelets (Bld) [#/Vol] 174 10*3/uL 150-450 [facility] Serum or plasma calcium minda urement (mass/volume)Ordered By: Avani Eduardo on 08-23-2023 Calcium [Mass/Vol] 8.5 mg/dL 8.5-10.1 [facility] Serum or plasma creatinine m easurement (mass/volume)Ordered By: Avani Eduardo on 08-23-2023 Creatinine [Mass/Vol] 0.69 mg/dL 0.70-1.30 [facility] [place] Comment on above: The validity of the calculated GFR & GFRAA in patients over 70 years has not been determined. Clinical correlation is essential. Serum or plasma urea nitroge n measurement (mass/volume)Ordered By: Avani Eduardo on 08-23-2023 Urea nitrogen [Mass/Vol] 18 mg/dL 7-18 [facility] Serum or plasma uric acid me asurement (mass/volume)Ordered By: Avani Eduardo on 08-23-2023 Urate [Mass/Vol] 5.6 mg/dL 3.5-7.2 [facility] Comment on above: The drugs N-Acetylcy steine and Metamizole may falsely depress this assay. Thin prep Papanicolaou smear with manual screeningOrdered By: Avani Eduardo on 08-23-2023 Thin prep Papanicolaou smear with manual screening 7 5-15 [facility] Basophil percentageOrdered B y: Avani Eduardo on 05-24-2023 Cholesterol [Mass/Vol] 143 mg/dL <200 [facility] Comment on above: <200 mg/dL Desirable 200-240 mg/dL Borderline >240 mg/dL High Risk Triglyceride [Mass/Vol] 102 mg/dL <199 [facility] Comment on above: The drugs N-Acetylcy steine and Metamizole may falsely depress this assay.Serum Triglycerides Reference Interval Normal <150 mg/dL Borderline high 150 - 199 mg/dL High 200 - 499 mg/dL Very High > or = 500 mg/dL Serum or plasma cholesterol in HDL measurement (mass/volume)Ordered By: Avani Eduardo on 05-24-2023 Cholesterol in HDL [Mass/Vol] 54 mg/dL >40 [facility] Comment on above: The drugs N-Acetylcy steine and Metamizole may falsely depress this assay. Reference Range HDL <40 mg/dL Low HDL Cholesterol HDL >or= 60 mg/dL High HDL Cholesterol Serum or plasma cholesterol in VLDL measurement (mass/volume)Ordered By: Avani Eduardo on 05-24-2023 Cholesterol in VLDL [Mass/Vol] 20 mg/dL 5-40 [facility] Serum or plasma low density lipoprotein (LDL) cholesterol measurement (mass/volume)Ordered By: Avani Eduardo on 05-24-2023 Cholesterol in LDL [Mass/Vol] 69 mg/dL 0-130 [facility] Basophil percentageOrdered B y: Avani Eduardo on 02-16-2023 Chloride [Moles/Vol] 106 mmol/L 98-107 [facility] Glucose [Mass/Vol] 61 mg/dL 74-106 [facility] Potassium [Moles/Vol] 4.1 mmol/L 3.5-5.1 [facility] [place] Sodium [Moles/Vol] 142 mmol/L 136-145 [facility] WBC (Bld) [#/Vol] 5.5 10*3/uL 4.4-11.0 [facility] Blood erythrocytes count (nu mber/volume)Ordered By: Avani Eduardo on 02-16-2023 RBC (Bld) [#/Vol] 3.87 10*6/uL 4.6-6.2 [facility] Blood hemoglobin measurement (mass/volume)Ordered By: Avani Eduardo on 02-16-2023 Hemoglobin (Bld) [Mass/Vol] 12.7 g/dL 13.0-16.5 [facility] Blood platelet mean volumeOr dered By: Avani Eduardo on 02-16-2023 Platelet mean volume (Bld) [Entitic vol] 9.0 fL 6.2-12.0 [facility] Determination of erythrocyte mean corpuscular volume (MCV)Ordered By: Avani Eduardo on 02-16-2023 MCV (RBC) [Entitic vol] 104.4 fL 80-94 [facility] Hematocrit Auto (Bld) [Volum e fraction]Ordered By: Avani Eduardo on 02-16-2023 Hematocrit (Bld) [Volume fraction] 40.4 % 40-54 [facility] Laboratory - Chemistry and C hemistry - challengeOrdered By: Avani Eduardo on 02-16-2023 CO2 [Moles/Vol] 27.0 mmol/L 21.0-32.0 [facility] Magnesium [Mass/Vol] 2.6 mg/dL 1.6-2.6 [facility] Urea nitrogen/Creatinine [Mass ratio] 26.0 mg/mg 10-20 [facility] Laboratory - Hematology and Cell countsOrdered By: Avani Eduardo on 02-16-2023 Erythrocyte distribution width (RBC) [Entitic vol] 46.1 fL 35.1-43.9 [facility] Erythrocyte distribution width (RBC) [Ratio] 11.9 % 11.6-14.6 [facility] MCH (RBC) [Entitic mass] 32.8 pg 27.0-32.0 [facility] MCHC Auto (RBC) [Mass/Vol]Or dered By: Avani Eduardo on 02-16-2023 MCHC (RBC) [Mass/Vol] 31.4 g/dL 32-36 [facility] [place] No Panel InformationOrdered By: Avani Eduardo on 02-16-2023 Estimated GFR (MDRD) Amer 178 mL/min >60 [facility] Comment on above: GFR Calc Estimated GFR (MDRD) Non-Af Amer 147 mL/min >60 [facility] Comment on above: Non- GFR Calc Platelets bldOrdered By: Ethan Eduardo on 02-16-2023 Platelets (Bld) [#/Vol] 141 10*3/uL 150-450 [facility] Serum or plasma calcium minda urement (mass/volume)Ordered By: Avani Eduardo on 02-16-2023 Calcium [Mass/Vol] 8.7 mg/dL 8.5-10.1 [facility] Serum or plasma creatinine m easurement (mass/volume)Ordered By: Avani Eduardo on 02-16-2023 Creatinine [Mass/Vol] 0.58 mg/dL 0.70-1.30 [facility] [place] Comment on above: The validity of the calculated GFR & GFRAA in patients over 70 years has not been determined. Clinical correlation is essential. Serum or plasma urea nitroge n measurement (mass/volume)Ordered By: Avani Eduardo on 02-16-2023 Urea nitrogen [Mass/Vol] 15 mg/dL 7-18 [facility] Thin prep Papanicolaou smear with manual screeningOrdered By: Avani Eduardo on 02-16-2023 Thin prep Papanicolaou smear with manual screening 9 5-15 [facility] Basophil percentageOrdered B y: Avani Eduardo on 02-09-2023 Chloride [Moles/Vol] 106 mmol/L 98-107 [facility] Glucose [Mass/Vol] 95 mg/dL 74-106 [facility] Potassium [Moles/Vol] 3.9 mmol/L 3.5-5.1 [facility] [place] Sodium [Moles/Vol] 143 mmol/L 136-145 [facility] WBC (Bld) [#/Vol] 7.2 10*3/uL 4.4-11.0 [facility] Blood erythrocytes count (nu mber/volume)Ordered By: Avani Eduardo on 02-09-2023 RBC (Bld) [#/Vol] 3.98 10*6/uL 4.6-6.2 [facility] Blood hemoglobin measurement (mass/volume)Ordered By: Avani Eduardo on 02-09-2023 Hemoglobin (Bld) [Mass/Vol] 13.1 g/dL 13.0-16.5 [facility] Blood platelet mean volumeOr dered By: Avani Eduardo on 02-09-2023 Platelet mean volume (Bld) [Entitic vol] 9.3 fL 6.2-12.0 [facility] Determination of erythrocyte mean corpuscular volume (MCV)Ordered By: Avani Eduardo on 02-09-2023 MCV (RBC) [Entitic vol] 103.0 fL 80-94 [facility] Hematocrit Auto (Bld) [Volum e fraction]Ordered By: Avani Eduardo on 02-09-2023 Hematocrit (Bld) [Volume fraction] 41.0 % 40-54 [facility] Laboratory - Chemistry and C hemistry - challengeOrdered By: Avani Eduardo on 02-09-2023 CO2 [Moles/Vol] 31.0 mmol/L 21.0-32.0 [facility] Magnesium [Mass/Vol] 2.7 mg/dL 1.6-2.6 [facility] Urea nitrogen/Creatinine [Mass ratio] 21.5 mg/mg 10-20 [facility] Laboratory - Hematology and Cell countsOrdered By: Avani Eduardo on 02-09-2023 Erythrocyte distribution width (RBC) [Entitic vol] 46.2 fL 35.1-43.9 [facility] Erythrocyte distribution width (RBC) [Ratio] 12.2 % 11.6-14.6 [facility] MCH (RBC) [Entitic mass] 32.9 pg 27.0-32.0 [facility] MCHC Auto (RBC) [Mass/Vol]Or dered By: Avani Eduardo on 02-09-2023 MCHC (RBC) [Mass/Vol] 32.0 g/dL 32-36 [facility] [place] No Panel InformationOrdered By: Avani Eduardo on 02-09-2023 Estimated GFR (MDRD) Amer 155 mL/min >60 [facility] Comment on above: GFR Calc Estimated GFR (MDRD) Non-Af Amer 128 mL/min >60 [facility] Comment on above: Non- GFR Calc Platelets bldOrdered By: Ethna Eduardo on 02-09-2023 Platelets (Bld) [#/Vol] 185 10*3/uL 150-450 [facility] Serum or plasma calcium minda urement (mass/volume)Ordered By: Avanigómez Eduardo on 02-09-2023 Calcium [Mass/Vol] 9.2 mg/dL 8.5-10.1 [facility] Serum or plasma creatinine m easurement (mass/volume)Ordered By: Avani Eduardo on 02-09-2023 Creatinine [Mass/Vol] 0.65 mg/dL 0.70-1.30 [facility] [place] Comment on above: The validity of the calculated GFR & GFRAA in patients over 70 years has not been determined. Clinical correlation is essential. Serum or plasma urea nitroge n measurement (mass/volume)Ordered By: Avanigómez Eduardo on 02-09-2023 Urea nitrogen [Mass/Vol] 14 mg/dL 7-18 [facility] Thin prep Papanicolaou smear with manual screeningOrdered By: [facility] Thin prep Papanicolaou smear with manual screening 6 5-15 [facility] Basophil percentageOrdered B y: [facility] on 02-05-2023 Ammonia (P) [Moles/Vol] 31.0 umol/L [facility] No Panel InformationOrdered By: [facility] on 02-05-2023 Levetiracetam (Keppra) Level 33.4 ug/mL 10.0-40.0 [facility] Comment on above: Performed at: [address] [id number] Director: Jess Bess MD, Phone: [phone] Valproic Acid (Depakene) Level 81 ug/mL 50-100 [facility] Absolute lymphocyte countOrd ered By: Dr. Wilder on 01-18-2023 Lymphocytes Auto (Unsp spec) [#/Vol] 2.09 10*3/uL 0.83-4.51 [facility] Basophil percentageOrdered B y: Dr. Wilder on 01-18-2023 Ammonia (P) [Moles/Vol] 73.0 umol/L [facility] Basophils/100 WBC (Bld) 0.7 % 0-1 [facility] Bilirubin [Mass/Vol] 0.20 mg/dL 0.20-1.00 [facility] Comment on above: For patients on eltr ombopag therapy, use of Dimension Mobile TBIL is not recommended. Chloride [Moles/Vol] 110 mmol/L 98-107 [facility] Eosinophils/100 WBC (Bld) 1.7 % 0-5 [facility] Glucose [Mass/Vol] 102 mg/dL 74-106 [facility] Comment on above: Fasting Glucose resu lt from 100 to 125 mg/dL suggests IMPAIRED HOMEOSTASIS per A.D.A. criteria. Neutrophils (Bld) [#/Vol] 2.4 10*3/uL 2.0-7.7 [facility] Neutrophils/100 WBC (Bld) 44.0 % 47-70 [facility] Potassium [Moles/Vol] 4.0 mmol/L 3.5-5.1 [facility] [place] Protein [Mass/Vol] 4.5 g/dL 6.4-8.2 [facility] Sodium [Moles/Vol] 142 mmol/L 136-145 [facility] WBC (Bld) [#/Vol] 5.4 10*3/uL 4.4-11.0 [facility] Blood erythrocytes count (nu mber/volume)Ordered By: Dr. Wilder on 01-18-2023 RBC (Bld) [#/Vol] 2.97 10*6/uL 4.6-6.2 [facility] Blood hemoglobin measurement (mass/volume)Ordered By: Dr. Wilder on 01-18-2023 Hemoglobin (Bld) [Mass/Vol] 9.9 g/dL 13.0-16.5 [facility] Blood lymphocytes/100 leukoc ytesOrdered By: Dr. Wilder on 01-18-2023 Lymphocytes/100 WBC (Bld) 38.8 % 19-41 [facility] Blood monocytes/100 leukocyt esOrdered By: Dr. Wilder on 01-18-2023 Monocytes/100 WBC (Bld) 13.7 % 0-10 [facility] Blood platelet mean volumeOr dered By: Dr. Wilder on 01-18-2023 Platelet mean volume (Bld) [Entitic vol] 8.7 fL 6.2-12.0 [facility] Determination of erythrocyte mean corpuscular volume (MCV)Ordered By: Dr. Wilder on 01-18-2023 MCV (RBC) [Entitic vol] 104.7 fL 80-94 [facility] Hematocrit Auto (Bld) [Volum e fraction]Ordered By: Dr. Wilder on 01-18-2023 Hematocrit (Bld) [Volume fraction] 31.1 % 40-54 [facility] Laboratory - Chemistry and C hemistry - challengeOrdered By: Dr. Wilder on 01-18-2023 ALP [Catalytic activity/Vol] 38 U/L 45-117 [facility] ALT [Catalytic activity/Vol] 10 U/L 16-61 [facility] CO2 [Moles/Vol] 29.0 mmol/L 21.0-32.0 [facility] Globulin (S) [Mass/Vol] 2.4 g/dL 2.2-4.2 [facility] Urea nitrogen/Creatinine [Mass ratio] 30.9 mg/mg 10-20 [facility] Laboratory - Hematology and Cell countsOrdered By: Dr. Wilder on 01-18-2023 Erythrocyte distribution width (RBC) [Entitic vol] 52.2 fL 35.1-43.9 [facility] Erythrocyte distribution width (RBC) [Ratio] 13.4 % 11.6-14.6 [facility] Immature granulocytes/100 WBC (Bld) 1.100 % 0.0-0.9 [facility] Comment on above: IG% - Immature Granu locytes (promyelocytes, myelocytes and metamyelocytes) > 1% indicates that a LEFT SHIFT is Present. MCH (RBC) [Entitic mass] 33.3 pg 27.0-32.0 [facility] Nucleated RBC/100 WBC (Bld) [Ratio] 0 % 0-5 [facility] MCHC Auto (RBC) [Mass/Vol]Or dered By: Dr. Wilder on 01-18-2023 MCHC (RBC) [Mass/Vol] 31.8 g/dL 32-36 [facility] [place] No Panel InformationOrdered By: Dr. Wilder on 01-18-2023 Estimated Creatinine Clearance Calc 52.95 ml/min [facility] Estimated GFR (MDRD) Amer 217 mL/min >60 [facility] Comment on above: GFR Calc Estimated GFR (MDRD) Non-Af Amer 179 mL/min >60 [facility] Comment on above: Non- GFR Calc Platelets bldOrdered By: Dr. Wilder on 01-18-2023 Platelets (Bld) [#/Vol] 137 10*3/uL 150-450 [facility] Serum or plasma albumin minda urement (mass/volume)Ordered By: Dr. Wilder on 01-18-2023 Albumin [Mass/Vol] 2.1 g/dL 3.2-5.0 [facility] Serum or plasma albumin/glob ulin mass ratioOrdered By: Dr. Wilder on 01-18-2023 Albumin/Globulin [Mass ratio] 0.9 {ratio} 0.9-2.4 [facility] Serum or plasma calcium minda urement (mass/volume)Ordered By: Dr. Wilder on 01-18-2023 Calcium [Mass/Vol] 8.5 mg/dL 8.5-10.1 [facility] Serum or plasma creatinine m easurement (mass/volume)Ordered By: Dr. Wilder on 01-18-2023 Creatinine [Mass/Vol] 0.48 mg/dL 0.70-1.30 [facility] [place] Comment on above: The validity of the calculated GFR & GFRAA in patients over 70 years has not been determined. Clinical correlation is essential. Serum or plasma urea nitroge n measurement (mass/volume)Ordered By: Dr. Wilder on 01-18-2023 Urea nitrogen [Mass/Vol] 15 mg/dL 7-18 [facility] Thin prep Papanicolaou smear with manual screeningOrdered By: Dr. Wilder on 01-18-2023 Thin prep Papanicolaou smear with manual screening 14 U/L 15-37 [facility] Thin prep Papanicolaou smear with manual screening 3 5-15 [facility] Assessment of wrist artery p atency prior to arterial punctureOrdered By: Dr. Wilder on 01-16-2023 Arterial patency Wrist artery --pre arterial puncture Positive [facility] Base excessOrdered By: Dr. Brodie arce on 01-16-2023 Base excess Calc (BldV) [Moles/Vol] 7 mmol/L -2-2 [facility] Basophil percentageOrdered B y: Dr. Wilder on 01-16-2023 Basophil percentage 31.9 mmol/L 22-26 [facility] Basophils/100 WBC (Bld) 94 % 95-99 [facility] CO2 (BldA) [Partial pressure ]Ordered By: Dr. Wilder on 01-16-2023 CO2 (Bld) [Partial pressure] 49.8 mm[Hg] 35-45 [facility] Laboratory - Chemistry and C hemistry - challengeOrdered By: Dr. Wilder on 01-16-2023 Natriuretic peptide B (Bld) [Mass/Vol] 15.2 pg/mL 0-100 [facility] No Panel InformationOrdered By: Dr. Wilder on 01-16-2023 Valproic Acid (Depakene) Level 91 ug/mL 50-100 [facility] Blood Gas Oxygen Percent 21 [facility] Blood Gas Sample Site R Radial [facility] Blood Gas Specimen Type ART [facility] Blood Gas Total CO2 33 mmol/L [facility] Oxygen Delivery Device Room Air [facility] Oxygen (BldA) [Partial press ure]Ordered By: Dr. Wilder on 01-16-2023 Oxygen (Bld) [Partial pressure] 70 mmHG 75-100 [facility] pH measurementOrdered By: Dr Shanthi Wilder on 01-16-2023 pH (Unsp spec) 7.42 [pH] 7.35-7.45 [facility] Absolute lymphocyte countOrd ered By: Dr. Malik on 01-10-2023 Lymphocytes Auto (Unsp spec) [#/Vol] 2.65 10*3/uL 0.83-4.51 [facility] Basophil percentageOrdered B y: Dr. Malik on 01-10-2023 Basophil percentage 0 SEEN /hpf 0-5 [facility] Basophils/100 WBC (Bld) 0.8 % 0-1 [facility] Chloride [Moles/Vol] 105 mmol/L 98-107 [facility] Eosinophils/100 WBC (Bld) 1.7 % 0-5 [facility] Glucose [Mass/Vol] 83 mg/dL 74-106 [facility] Neutrophils (Bld) [#/Vol] 5.6 10*3/uL 2.0-7.7 [facility] Neutrophils/100 WBC (Bld) 53.9 % 47-70 [facility] Potassium [Moles/Vol] 4.3 mmol/L 3.5-5.1 [facility] [place] Sodium [Moles/Vol] 139 mmol/L 136-145 [facility] WBC (Bld) [#/Vol] 10.4 10*3/uL 4.4-11.0 [facility] Bilirubin Test strip Ql (U)O rdered By: Dr. Malik on 01-10-2023 Bilirubin Ql (U) Negative Negative [facility] Blood erythrocytes count (nu mber/volume)Ordered By: Dr. Malik on 01-10-2023 RBC (Bld) [#/Vol] 3.68 10*6/uL 4.6-6.2 [facility] Blood hemoglobin measurement (mass/volume)Ordered By: Dr. Malik on 01-10-2023 Hemoglobin (Bld) [Mass/Vol] 12.3 g/dL 13.0-16.5 [facility] Blood lymphocytes/100 leukoc ytesOrdered By: Dr. Malik on 01-10-2023 Lymphocytes/100 WBC (Bld) 25.6 % 19-41 [facility] Blood monocytes/100 leukocyt esOrdered By: Dr. Malik on 01-10-2023 Monocytes/100 WBC (Bld) 16.6 % 0-10 [facility] Blood platelet mean volumeOr dered By: Dr. Malik on 01-10-2023 Platelet mean volume (Bld) [Entitic vol] 8.4 fL 6.2-12.0 [facility] Determination of erythrocyte mean corpuscular volume (MCV)Ordered By: Dr. Malik on 01-10-2023 MCV (RBC) [Entitic vol] 102.2 fL 80-94 [facility] Hematocrit Auto (Bld) [Volum e fraction]Ordered By: Dr. Malik on 01-10-2023 Hematocrit (Bld) [Volume fraction] 37.6 % 40-54 [facility] Hyaline casts LM.LPF (Urine sed) [#/Area]Ordered By: Dr. Malik on 01-10-2023 Hyaline casts (Urine sed) [#/Area] 0 /[LPF] 0-5 [facility] Ketones Test strip Ql (U)Ord ered By: Dr. Malik on 01-10-2023 Ketones Ql (U) 5 mg/dl Negative [facility] Laboratory - Chemistry and C hemistry - challengeOrdered By: Dr. Malik on 01-10-2023 CO2 [Moles/Vol] 29.0 mmol/L 21.0-32.0 [facility] Urea nitrogen/Creatinine [Mass ratio] 15.0 mg/mg 10-20 [facility] Laboratory - Hematology and Cell countsOrdered By: Dr. Malik on 01-10-2023 Erythrocyte distribution width (RBC) [Entitic vol] 49.0 fL 35.1-43.9 [facility] Erythrocyte distribution width (RBC) [Ratio] 13.1 % 11.6-14.6 [facility] Immature granulocytes/100 WBC (Bld) 1.400 % 0.0-0.9 [facility] Comment on above: IG% - Immature Granu locytes (promyelocytes, myelocytes and metamyelocytes) > 1% indicates that a LEFT SHIFT is Present. MCH (RBC) [Entitic mass] 33.4 pg 27.0-32.0 [facility] Nucleated RBC/100 WBC (Bld) [Ratio] 0 % 0-5 [facility] MCHC Auto (RBC) [Mass/Vol]Or dered By: Dr. Malik on 01-10-2023 MCHC (RBC) [Mass/Vol] 32.7 g/dL 32-36 [facility] Macrocytes detectionOrdered By: Dr. Malik on 01-10-2023 Macrocytes Ql (Bld) 2+ [facility] Mucus LM Ql (Urine sed)Order ed By: Dr. Malik on 01-10-2023 Mucus Ql (Urine sed) 0 SEEN /hpf [facility] Nitrite Test strip Ql (U)Ord ered By: Dr. Malik on 01-10-2023 Nitrite Ql (U) Negative Negative [facility] No Panel InformationOrdered By: Dr. Malik on 01-10-2023 Valproic Acid (Depakene) Level 80 ug/mL 50-100 [facility] Estimated Creatinine Clearance Calc 66.19 ml/min [facility] Estimated GFR (MDRD) Amer 122 mL/min >60 [facility] Comment on above: GFR Calc Estimated GFR (MDRD) Non-Af Amer 101 mL/min >60 [facility] Comment on above: Non- GFR Calc Troponin I High Sensitivity 6 pg/mL 3.0-78.0 [facility] Comment on above: Please Note: New Janice t Units and Gender Specific Reference Ranges. For more information see Policy Stat Procedure Mobile High Sensitivity Troponin (TNIH) and attachments. Platelets bldOrdered By: Dr. Malik on 01-10-2023 Platelets (Bld) [#/Vol] 168 10*3/uL 150-450 [facility] Protein Test strip Ql (U)Ord ered By: Dr. Malik on 01-10-2023 Protein Ql (U) 15 mg/dl Negative [facility] Serum or plasma calcium minda urement (mass/volume)Ordered By: Dr. Malik on 01-10-2023 Calcium [Mass/Vol] 9.0 mg/dL 8.5-10.1 [facility] Serum or plasma creatinine m easurement (mass/volume)Ordered By: Dr. Malik on 01-10-2023 Creatinine [Mass/Vol] 0.80 mg/dL 0.70-1.30 [facility] Comment on above: The validity of the calculated GFR & GFRAA in patients over 70 years has not been determined. Clinical correlation is essential. Serum or plasma urea nitroge n measurement (mass/volume)Ordered By: Dr. Malik on 01-10-2023 Urea nitrogen [Mass/Vol] 12 mg/dL 7-18 [facility] Squamous epithelial cells de tection in urine sediment by light microscopyOrdered By: Dr. Malik on 01-10-2023 Epithelial cells.squamous LM Ql (Urine sed) 0 SEEN /hpf 0-5 [facility] Thin prep Papanicolaou smear with manual screeningOrdered By: Dr. Malik on 01-10-2023 Thin prep Papanicolaou smear with manual screening 5 5-15 [facility] Urine blood detectionOrdered By: Dr. Malik on 01-10-2023 RBC Ql (U) 25 /ul Negative [facility] RBC Ql (U) 0 SEEN /hpf 0-5 [facility] Urine clarityOrdered By: Dr. Malik on 01-10-2023 Clarity (U) Clear Clear [facility] Urine color determinationOrd ered By: Dr. Malik on 01-10-2023 Color (U) Yellow Yellow [facility] Urine glucose detectionOrder ed By: Dr. Malik on 01-10-2023 Glucose Ql (U) Normal mg/dl Normal [facility] Urine leukocyte esterase det ection by dipstickOrdered By: Dr. Malik on 01-10-2023 Leukocyte esterase Test strip Ql (U) Negative Negative [facility] Urine pHOrdered By: Dr. Binta smith on 01-10-2023 pH (U) 6.0 [pH] 5.0 - 8.0 [facility] Urine sediment bacteria coun t by microscopy (number/high power field)Ordered By: Dr. Malik on 01-10-2023 Bacteria LM.HPF (Urine sed) [#/Area] 0 /[HPF] None Seen [facility] Urine specific gravity measu rementOrdered By: Dr. Malik on 01-10-2023 Specific gravity (U) [Rel density] 1.015 1.002-1.03 0 [facility] Urobilinogen Auto test strip Ql (U)Ordered By: Dr. Malik on 01-10-2023 Urobilinogen Ql (U) Normal mg/dl Normal [facility] Ammonia Plas-sCncon 01-10-20 23 Ammonia (P) [Moles/Vol] 35 umol/L Normal 16-60 [facility] Comment on above: Order Comment: Speci men Type: BLOOD SPECIMEN Ordering Facility: [facility] Address: [address] [place], [place] [id number] Performed By: #### 1 6362-6 #### [facility] CLIA [id number] [address] OF [facility] CASE MANAGEMon 01-09-2023 CASE MANAGEM HNO ID: [id number] Author: ALYSSA Humphreys Service: ? Author Type: Floor Covering Printer Type: Care Mgt Progress Note Filed: 01/09/2023 2:41 PM Note Text: CARE MANAGEMENT DISCHARGE NOTE SERVICE DATE: 01/09/2023 SERVICE TIME: 2:31 PM LOS: 1 day Patient discharging back to [facility] in [place]. Patient to be picked up at 9pm. [...] 09, 2023 TIME: 2:31 PM PAGER/CONTACT #: [phone] [facility] 01-09-2023 [facility] HNO ID: [id number] Author: Lorene Ortiz MD Service: Hospital Medicine [...] Attending Provider: Lorene Ortiz MD Primary Service: [facility] Attending: Keron Dewey MD Consulting: Micheline Huber [...] HTN, and KYA He was admitted to [facility] 5 days prior due to [...] (more content not included)... Normal [facility] NURSING PROGon 01-09-2023 NURSING PROG HNO ID: [id number] Author: Anitha Burnette RN Service: Nursing Author Type: Registered Nurse Type: Nursing Progress Note Filed: 01/09/2023 12:24 PM Note Text: Patient being discharged back to [facility]. Patient agreeable. Updated and informed facility of patient's return. Normal [facility] Valproate SerPl-mCncon 01-09 Valproate [Mass/Vol] 80.8 ug/mL Normal 50.0-100.0 [facility] Comment on above: Order Comment: Speci men Type: BLOOD SPECIMEN Ordering Facility: [facility] Address: [address] [place] [phone] Result Comment: Refe rence ranges and high/low indicator flags are provided as general guidelines only. The treating physician must determine appropriate target levels/dosing based on the specific clinical situation. Performed By: #### 4 086-5 #### [facility] CLIA [id number] 1 [place] [id number] [facility] ALLIED HEALTHon 01-08-2023 ALLIED HEALTH HNO ID: [id number] Author: RT Vivian(R) Service: Radiology Author Type: [...] 08, 2023 1:16 PM Normal [facility] CASE MGT INIT [facility] 2022 CASE MGT INIT [facility] HNO ID: [id number] Author: LAYNE Lozano Service: Social Work Author Type: Floor Covering Printer Type: Care Mgt Initial Assessment Filed: 01/08/2023 4:14 PM Note Text: CARE MANAGEMENT: ASSESSMENT AND DISCHARGE PLAN SERVICE DATE: January 08, 2023 SERVICE TIME: 3:39 PM PCP: Maddie Cantor DO Primary Contact: Extended Emergency Contact Information Primary Emergency Contact: Cha Cantor Mobile Relation: Sister Secondary Emergency Contact: Pj conti Mobile Relation: Relative Admission Status: Inpatient Insurance Provider: [facility] DUAL COMPLETE HMO POS SNP Discharge Planning requested by: Per Department Practice Potential Transition Plans Advance Directives Current Advance Directive: Health Care Power of Tmh Teacher In Chart: Yes Up To Date and Valid: Yes Current Living Arrangements and Support Lives with: ([facility] Type of Residence: Assisted Living Facility Does [...] Care Goal(s): to return to Assisted living [place] Explained: [place] Choice Given: Yes Level of Care Discussed: Home Care Are you interested in bedside delivery of your medications? No Discharge Planning Participant(s): Patient Patient/Family Comments: Caregiver Assessment: Caregiver is ready, willing and able to meet the patient's needs as recommended by the inter-professional team: Yes Name of Caregiver: in from [facility] Transport at Discharge: Transportation Arrangements: Amb[facility] Type of Service: BLS Non-emergency Is Patient Medicaid Pending?: No Was transportation financial coverage discussed with family?: No Fisher Dip Net Location: [facility] Care Management Responsibility: None Needs Prior to Discharge: Needs Prior to Discharge: Discharge Transportation;Home Care Order Post-Acute Discharge Plan: Met with pt who presents as lethargic. Is in from [facility] in [place]. Plan is to return. 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 PT and OT recommend home PT. Pt with no preference for home health agency. With pt's consent, contacted [facility] for agency they use. Referral sent to [facility]. Will need transport back to [facility] w/c ambulette. Per , pt now with lumbar fx. Await return call from pt's AMADOU - Drea jay [phone] to update. SIGNATURE: LAYNE Lozano PATIENT NAME: Anjel Ross DATE: January 08, 2023 TIME: 3:39 PM CONTACT #: [phone] Normal [facility] CBC W Auto Differential pane l (Bld)on 01-08-2023 Basophils (Bld) [#/Vol] 0.05 10*3/uL Normal <0.11 [facility] Comment on above: Order Comment: Speci men Type: BLOOD SPECIMEN Ordering Facility: [facility] Address: [address] [place] [address] Performed By: #### 5 7021-8 #### [facility] CLIA [id number] [address] [place] Basophils/100 WBC (Bld) 0.6 % Normal [facility] Comment on above: Order Comment: Speci men Type: BLOOD SPECIMEN Ordering Facility: [facility] Address: [address] [place] [address] Performed By: #### 5 7021-8 #### [facility] CLIA [id number] [address] [place] [address] [place] Differential cell count method Nom (Bld) Auto Normal [facility] Comment on above: Order Comment: Speci men Type: BLOOD SPECIMEN Ordering Facility: [facility] Address: [address] [place] [address] Performed By: #### 5 7021-8 #### [facility] CLIA [id number] 1 [place] [address] [place] Eosinophils (Bld) [#/Vol] 0.18 10*3/uL Normal <0.46 [facility] Comment on above: Order Comment: Speci men Type: BLOOD SPECIMEN Ordering Facility: [facility] Address: [address] [place] [address] Performed By: #### 5 7021-8 #### [facility] CLIA [id number] [address] OF [place] Eosinophils/100 WBC (Bld) 2.0 % Normal [facility] Comment on above: Order Comment: Speci men Type: BLOOD SPECIMEN Ordering Facility: [facility] Address: [address] [place] [place] [address] Performed By: #### 5 7021-8 #### [facility] CLIA [id number] [address] Erythrocyte distribution width (RBC) [Ratio] 12.9 % Normal 11.5-15.0 [facility] Comment on above: Order Comment: Speci men Type: BLOOD SPECIMEN Ordering Facility: [facility] Address: [address] [place] [address] Performed By: #### 5 7021-8 #### [facility] CLIA [id number] [address] [place] Hematocrit (Bld) [Volume fraction] 40.2 % Normal 39.0-51.0 [facility] Comment on above: Order Comment: Speci men Type: BLOOD SPECIMEN Ordering Facility: [facility] Address: [address] [place] [address] Performed By: #### 5 7021-8 #### [facility] CLIA [id number] [address] [place] Hemoglobin (Bld) [Mass/Vol] 13.1 g/dL Normal 13.0-17.0 [facility] Comment on above: Order Comment: Speci men Type: BLOOD SPECIMEN Ordering Facility: [facility] Address: [address] [place] [address] Performed By: #### 5 7021-8 #### [facility] CLIA [id number] [address] [place] Immature granulocytes (Bld) [#/Vol] 0.10 10*3/uL High <0.10 [facility] Comment on above: Order Comment: Speci men Type: BLOOD SPECIMEN Ordering Facility: [facility] Address: [address] [place] [address] Performed By: #### 5 7021-8 #### [facility] CLIA [id number] [address] OF [place] Immature granulocytes/100 WBC (Bld) 1.1 % Normal [facility] Comment on above: Order Comment: Speci men Type: BLOOD SPECIMEN Ordering Facility: [facility] Address: [address] [place] [address] Performed By: #### 5 7021-8 #### [facility] CLIA [id number] [address] [place] Lymphocytes (Bld) [#/Vol] 2.81 10*3/uL Normal 1.00-4.00 [facility] Comment on above: Order Comment: Speci men Type: BLOOD SPECIMEN Ordering Facility: [facility] Address: [address] [place] [address] Performed By: #### 5 7021-8 #### [facility] CLIA [id number] [address] STATES OF [facility] Lymphocytes/100 WBC (Bld) 31.6 % Normal [facility] Comment on above: Order Comment: Speci men Type: BLOOD SPECIMEN Ordering Facility: [facility] Address: [address] [place] [address] Performed By: #### 5 7021-8 #### [facility] CLIA [id number] [address] [place] MCH (RBC) [Entitic mass] 32.7 pg Normal 26.0-34.0 [facility] Comment on above: Order Comment: Speci men Type: BLOOD SPECIMEN Ordering Facility: [facility] Address: [address] [place] [address] Performed By: #### 5 7021-8 #### [facility] CLIA [id number] [address] [place] MCHC (RBC) [Mass/Vol] 32.6 g/dL Normal 30.5-36.0 [facility] Comment on above: Order Comment: Speci men Type: BLOOD SPECIMEN Ordering Facility: [facility] Address: [address] [place] [address] Performed By: #### 5 7021-8 #### [facility] CLIA [id number] [address] [place] MCV (RBC) [Entitic vol] 100.2 fL High 80.0-100.0 [facility] Comment on above: Order Comment: Speci men Type: BLOOD SPECIMEN Ordering Facility: [facility] Address: [address] [place] [address] Performed By: #### 5 7021-8 #### [facility] CLIA [id number] [address] [place] Monocytes (Bld) [#/Vol] 1.06 10*3/uL High <0.87 [facility] Comment on above: Order Comment: Speci men Type: BLOOD SPECIMEN Ordering Facility: [facility] Address: [address] [place] [address] Performed By: #### 5 7021-8 #### [facility] CLIA [id number] [address] Monocytes/100 WBC (Bld) 11.9 % Normal [facility] Comment on above: Order Comment: Speci men Type: BLOOD SPECIMEN Ordering Facility: [facility] Address: [address] [place] [address] Performed By: #### 5 7021-8 #### [facility] CLIA [id number] [address] [place] Neutrophils (Bld) [#/Vol] 4.70 10*3/uL Normal 1.45-7.50 [facility] Comment on above: Order Comment: Speci men Type: BLOOD SPECIMEN Ordering Facility: [facility] Address: [address] [place] [address] Performed By: #### 5 7021-8 #### [facility] CLIA [id number] [address] [place] Neutrophils/100 WBC (Bld) 52.8 % Normal [facility] Comment on above: Order Comment: Speci men Type: BLOOD SPECIMEN Ordering Facility: [facility] Address: [address] [place] [address] Performed By: #### 5 7021-8 #### [facility] CLIA [id number] [address] [place] Nucleated RBC (Bld) [#/Vol] 10*3/uL Normal <0.01 [facility] Comment on above: Order Comment: Speci men Type: BLOOD SPECIMEN Ordering Facility: [facility] Address: [address] [place] [address] Performed By: #### 5 7021-8 #### [facility] CLIA [id number] [address] [place] Nucleated RBC/100 WBC (Bld) [Ratio] 0.0 /100 WBC Normal [facility] Comment on above: Order Comment: Speci men Type: BLOOD SPECIMEN Ordering Facility: [facility] Address: [address] [place] [address] Performed By: #### 5 7021-8 #### [facility] CLIA [id number] [address] Platelet mean volume (Bld) [Entitic vol] 8.5 fL Low 9.0-12.7 [facility] Comment on above: Order Comment: Speci men Type: BLOOD SPECIMEN Ordering Facility: [facility] Address: [address] [place] [address] Performed By: #### 5 7021-8 #### [facility] CLIA [id number] [address] [place] Platelets (Bld) [#/Vol] 160 10*3/uL Normal 150-400 [facility] Comment on above: Order Comment: Speci men Type: BLOOD SPECIMEN Ordering Facility: [facility] Address: [address] [place] [address] Performed By: #### 5 7021-8 #### [facility] CLIA [id number] [address] [place] RBC (Bld) [#/Vol] 4.01 10*6/uL Low 4.20-6.00 [facility] Comment on above: Order Comment: Devendra krishnamurthy Type: BLOOD SPECIMEN Ordering Facility: [facility] Address: [address] [place] [address] Performed By: #### 5 7021-8 #### [facility] CLIA [id number] [address] WBC (Bld) [#/Vol] 8.90 10*3/uL Normal 3.70-11.00 [facility] Comment on above: Order Comment: Devendra krishnamurthy Type: BLOOD SPECIMEN Ordering Facility: [facility] Address: [address] Performed By: #### 5 7021-8 #### [facility] CLIA [id number] [address] CONSULTon 01-08-2023 CONSULT HNO ID: [id number] Author: Mann Waggoner APRN.TIME SIGNAL WIRER Service: Neurosurgery Author Type: Nurse Practitioner Type: [...] a 72 year old male transferred from [facility] with concerns for NPH.The patient currently [...] ANGIOPLASTY, ASHD Cancer Father LUNG Heart Father NV X 3 Heart Maternal Aunt NV Diabetes Maternal Aunt other (EPILEPSY) Paternal Grandfather [...] MD 25 mg at 01/08/23 0857 pantoprazole 40 mg tab(s) (PROTONIX) 40 mg ORAL DAILY Keron Dewey MD 40 mg (more content not included)... Normal [facility] CONSULT HNO ID: [id number] Author: Chino Gerber DO Service: Neurology General Author Type: Resident Type: Consults Filed: 01/08/2023 3:17 PM Note Text: Attestation signed by Aádn De MD at 01/11/2023 11:39 AM Staff [...] hypertension, KYA, who was initially admitted to [facility] 5 days ago with generalized weakness, unsteady gait and fall without focal deficits. During that hospital stay CT brain was concerning for possible NPH. Subsequently, telemetry neurologist recommended patient to be transferred for neurology consult and LP and MRI brain/spine with and without contrast. Patient admitted to [facility] on 4/7 with differential diagnosis of unsteady gait secondary [...] ANGIOPLASTY, ASHD Cancer Father LUNG Heart Father NV X 3 Heart Maternal Aunt NV Diabetes Maternal Aunt other (EPILEPSY) Paternal Grandfather [...] (more content not included)... Normal [facility] CT LUMBAR SPINE WO IVCONon 0 01-08-2023 CT LUMBAR SPINE WO IVCON * * *Final Report* * * DATE OF EXAM: Jan 08 2023 4:50PM [facility] 0508 - CT LUMBAR SPINE [...] are 5 lumbar-type vertebrae. Anatomic variant: None. Hearing Care Professional (topogram) images: Right hip arthroplasty. Alignment: S-shaped [...] and assume there are 5 lumbar-type vertebrae. Textile Dyer: ELVIS Transcribe Date/Time: Jan 09 2023 9:56A Dictated by : NGUYỄN GILBERT DO This examination was interpreted and the report reviewed and electronically signed by: NGUYỄN GILBERT DO on Jan 09 2023 10:03AM EST [id number] Normal [facility] Comprehensive metabolic 2000 panelon 01-08-2023 Albumin [Mass/Vol] 3.2 g/dL Low 3.9-4.9 [facility] Comment on above: Order Comment: Speci men Type: BLOOD SPECIMEN Ordering Facility: [facility] Address: [address] [place] [address] Performed By: #### 2 4323-8, , 3015-3 #### [facility] CLIA [id number] [address] [place] ALP [Catalytic activity/Vol] 58 U/L Normal 38-113 [facility] Comment on above: Order Comment: Speci men Type: BLOOD SPECIMEN Ordering Facility: [facility] Address: [address] [place] [address] Performed By: #### 2 4323-8, , 6-3 #### [facility] CLIA [id number] 1 [place] [address] [place] ALT With P-5'-P [Catalytic activity/Vol] 7 U/L Low 10-54 [facility] Comment on above: Order Comment: Speci men Type: BLOOD SPECIMEN Ordering Facility: [facility] Address: [address] [place] [address] Performed By: #### 2 4323-8, 49247-3, 6-3 #### [facility] CLIA [id number] [address] [place] Anion gap [Moles/Vol] 10 mmol/L Normal 9-18 [facility] Comment on above: Order Comment: Speci men Type: BLOOD SPECIMEN Ordering Facility: [facility] Address: [address] [address] Performed By: #### 2 3-8, , 3 #### [facility] CLIA [id number] [address] [place] AST With P-5'-P [Catalytic activity/Vol] 15 U/L Normal 14-40 [facility] Comment on above: Order Comment: Speci men Type: BLOOD SPECIMEN Ordering Facility: [facility] Address: [address] [place] [address] Performed By: #### 2 3-8, , 3 #### [facility] CLIA [id number] 1 [place] [address] [place] Bilirubin [Mass/Vol] 0.3 mg/dL Normal 0.2-1.3 [facility] Comment on above: Order Comment: Speci men Type: BLOOD SPECIMEN Ordering Facility: [facility] Address: [address] [place] [address] Performed By: #### 2 4322-8, , 3 #### [facility] CLIA [id number] [address] [place] Calcium [Mass/Vol] 9.4 mg/dL Normal 8.5-10.2 [facility] Comment on above: Order Comment: Speci men Type: BLOOD SPECIMEN Ordering Facility: [facility] Address: [address] [place] [address] Performed By: #### 2 4323-8, , 3 #### [facility] CLIA [id number] [address] [place] Chloride [Moles/Vol] 104 mmol/L Normal 97-105 [facility] Comment on above: Order Comment: Speci men Type: BLOOD SPECIMEN Ordering Facility: [facility] Address: [address] [address] Performed By: #### 2 4323-8, , 3 #### [facility] CLIA [id number] 1 [place] [address] [place] CO2 [Moles/Vol] 28 mmol/L Normal 22-30 [facility] Comment on above: Order Comment: Speci men Type: BLOOD SPECIMEN Ordering Facility: [facility] Address: [address] [place] [address] Performed By: #### 2 4323-8, , 3015-12 #### [facility] CLIA [id number] 1 [place] [address] [place] Creatinine [Mass/Vol] 0.65 mg/dL Low 0.73-1.22 [facility] Comment on above: Order Comment: Speci men Type: BLOOD SPECIMEN Ordering Facility: [facility] Address: [address] [place] [address] Performed By: #### 2 432-8, , 3015-12 #### [facility] CLIA [id number] [address] [place] ESTIMATED GLOMERULAR FILTRATION RATE 99 mL/min/1.73m??? Normal >=60 [facility] Comment on above: Order Comment: Speci men Type: BLOOD SPECIMEN Ordering Facility: [facility] Address: [address] [place] [address] Result Comment: Narda mated Glomerular Filtration Rate [...] By: #### 2 4323-8, , 3015-12 #### [facility] CLIA [id number] [address] [place] Glucose [Mass/Vol] 90 mg/dL Normal 74-99 [facility] Comment on above: Order Comment: Speci men Type: BLOOD SPECIMEN Ordering Facility: [facility] Address: [place] [address] Result Comment: The [place] Diabetes Association (ADA) provides guidance for cutoff [...] Standards of Medical Care in Diabetes 2016, [place] Diabetes Association. Diabetes Care. 2016.39(Suppl 1). Performed By: #### 2 4323-8, , 3015-3 #### [facility] CLIA [id number] 1 [place] [address] [place] Potassium [Moles/Vol] 3.8 mmol/L Normal 3.7-5.1 [facility] Comment on above: Order Comment: Devendra krishnamurthy Type: BLOOD SPECIMEN Ordering Facility: [facility] Address: [address] [place] [id number] Performed By: #### 2 4323-8, , 3 #### [facility] CLIA [id number] 1 [place] [address] [place] Protein [Mass/Vol] 5.6 g/dL Low 6.3-8.0 [facility] Comment on above: Order Comment: Symonei men Type: BLOOD SPECIMEN Ordering Facility: [facility] Address: [address] [place] [id number] Performed By: #### 2 4323-8, , 3 #### [facility] CLIA [id number] 1 [place] [address] [place] Sodium [Moles/Vol] 142 mmol/L Normal 136-144 [facility] Comment on above: Order Comment: Speci men Type: BLOOD SPECIMEN Ordering Facility: [facility] Address: [address] [id number] Performed By: #### 2 4323-8, 91382-1, 6-3 #### [facility] CLIA [id number] [address] STATES OF [facility] Urea nitrogen [Mass/Vol] 11 mg/dL Normal 9-24 [facility] Comment on above: Order Comment: Speci men Type: BLOOD SPECIMEN Ordering Facility: [facility] Address: [address] [place] [phone] Performed By: #### 2 4323-8, 22215-6, 3015-3 #### [facility] CLIA [id number] [address] [place] ECG COMPLETEon 01-08-2023 ECG COMPLETE Ventricular Rate : 8 7 BPM Atrial Rate : 87 BPM P-R Interval : 144 ms QRS Duration : 84 ms Q-T Interval : 352 ms QTC Calculation(Bazett) : 423 ms Calculated P [place] : 58 degrees Calculated R [place] : -45 degrees Calculated T [place] : 17 degrees NORMAL SINUS RHYTHM LEFT [...] INFERIOR LEADS Confirmed by MD JOAQUIN VINAY ([id number]) on 01/08/2023 3:41:29 PM NAME : ANJEL ROSS PID : [id number] : 1950 Gender : Male Race : ORD : [id number] Procedure Date : Jan 08 2023 03:21:39 [...] INFERIOR LEADS Confirmed by MD JOAQUIN VINAY ([id number]) on 01/08/2023 3:41:29 PM Test Reason : Arrhythmia Location : 91 : 9100 9101 Overread By : MD JOAQUIN VINAY Edited By : MD JOAQUIN VINAY Referred By : HILARIO MALIK Acquired by : LAKSHMI MOREAU [facility] HISTORY PHYSICALon HISTORY PHYSICAL HNO ID: [id number] Author: Keron Dewey MD Service: General Internal Medicine Author Type: Physician Type: HANDP Filed: 01/08/2023 6:34 AM Note Text: DEPARTMENT OF HOSPITAL MEDICINE HISTORY AND PHYSICAL EXAM SERVICE DATE: 01/08/2023 SERVICE TIME: 1:26 AM Primary Care Physician: Maddie Cantor, DO NIGHT AND WEEKEND COVERAGE: From 7am - 7pm, please call Sound After 7pm, please call cross cover pager #[phone] Subjective CHIEF COMPLAINT: Unsteady gait HPI: This is a 72 year old male F resident with hx of anemia, CAD, hypothyroidism, HL, colon cancer, seizures, HTN, and KYA, who was admitted to [facility] 5 days ago with generalized weakness and [...] ANGIOPLASTY, ASHD Cancer Father LUNG Heart Father NV X 3 Heart Maternal Aunt NV Diabetes Maternal Aunt other (EPILEPSY) Paternal Grandfather [...] 1 tablet by mouth daily at bedtime. Idiyx-0-CHK-EPA-Fish Oil 1,000 mg (120 mg-180 mg) cap [...] (more content not included)... Normal [facility] Magnesium SerPl-mCncon 01-08 Magnesium [Mass/Vol] 1.7 mg/dL Normal 1.7-2.3 [facility] Comment on above: Order Comment: Speci men Type: BLOOD SPECIMEN Ordering Facility: [facility] Address: [address] [place], [place] [id number] Performed By: #### 2 4323-8, 48046-7, 3016-3 #### [facility] CLIA [id number] [address] [place] [address] [place] NURSING PROGon 01-08-2023 NURSING PROG HNO ID: [id number] Author: Doug Suárez RN Service: Nursing Author Type: Registered Nurse Type: Nursing Progress Note Filed: 01/08/2023 5:29 PM Note Text: 01/08/2023 Nursing note: Notified Neurology AND attending of multiple attempts of obtaining blood (ammonia level) Multiple RN attempted This note was completed by: Doug Suárez RN Normal [facility] THERAPY NTon 01-08-2023 THERAPY NT HNO ID: [id number] Author: Almaz Falcon PT Service: Physical Therapy Author Type: Physical Therapist Type: Therapy (PT/OT/Speech/Resp) Filed: 01/08/2023 4:10 PM Note Text: Physical Therapy Evaluation SERVICE DATE: 01/08/2023 SERVICE TIME: 1445 to 1502 ROOM: [id number] Recommended Discharge Disposition: Home PT Recommended Discharge [...] Risk Current Hospital Course: Originally admitted at [facility] with general weakness and unsteady gait after [...] Walker Goal: Pt will complete x5 repeated qsi-jb-sjdqo transfers with SBA Rehab Potential: Good Patient [...] (more content not included)... Normal [facility] THERAPY NT HNO ID: [id number] Author: JODIE Mixon/Morgan Service: Occupational Therapy Author Type: Occupational Therapist Type: Therapy (PT/OT/Speech/Resp) Filed: 01/08/2023 11:27 AM Note Text: Occupational Therapy Evaluation SERVICE DATE: 01/08/2023 SERVICE TIME: 839 to 0908 ROOM: [id number] Recommended Discharge Disposition: Home OT Recommended Discharge [...] (more content not included)... Normal [facility] TSH SerPl-aCncon 01-08-2023 TSH Qn 9.720 m[IU]/L High 0.270-4.20 0 [facility] Comment on above: Order Comment: Speci men Type: BLOOD SPECIMEN Ordering Facility: [facility] Address: [address] [place] [address] Performed By: #### 2 4323-8, 26320-7, 3016-3 #### [facility] CLIA [id number] [address] [place] [address] [place] Valproate SerPl-mCncon 01-08 Valproate [Mass/Vol] 72.9 ug/mL Normal 50.0-100.0 [facility] Comment on above: Order Comment: Speci men Type: BLOOD SPECIMEN Ordering Facility: [facility] Address: [address], [place] [address] Result Comment: Refe rence ranges and high/low indicator flags are provided as general guidelines only. The treating physician must determine appropriate target levels/dosing based on the specific clinical situation. Performed By: #### 4 086-5 #### [facility] CLIA [id number] [address] [place] XR LUMBAR 3V [...] Multilevel degenerative disc disease and facet arthropathy. Textile Dyer: PSCB Transcribe Date/Time: Jan 08 2023 2:00P Dictated by : REJI ARNETT MD This examination was interpreted and the report reviewed and electronically signed by: REJI ARNETT MD on Jan 08 2023 2:05PM EST [id number] Normal [facility] XR THORACIC 2V AP/LATon 04-0 XR THORACIC 2V AP/LAT * * *Final Report* * * DATE OF EXAM: Jan 08 2023 1:27PM CORNELIO 5262 - XR THORACIC 2V AP/LAT / [...] report of the accompanying lumbar spine films. Textile Dyer: ELVIS Transcribe Date/Time: Jan 08 2023 2:05P Dictated by : REJI ARNETT MD This examination was interpreted and the report reviewed and electronically signed by: REJI ARNETT MD on Jan 08 2023 2:07PM EST [id number] Normal [facility] Absolute lymphocyte countOrd ered By: Dr. Cannon on 01-07-2023 Lymphocytes Auto (Unsp spec) [#/Vol] 2.20 10*3/uL 0.83-4.51 [facility] Basophil percentageOrdered B y: Dr. Cannon on 01-07-2023 Basophils/100 WBC (Bld) 0.6 % 0-1 [facility] Chloride [Moles/Vol] 110 mmol/L 98-107 [facility] Eosinophils/100 WBC (Bld) 2.6 % 0-5 [facility] Glucose [Mass/Vol] 115 mg/dL 74-106 [facility] Comment on above: Fasting Glucose resu lt from 100 to 125 mg/dL suggests IMPAIRED HOMEOSTASIS per A.D.A. criteria. Neutrophils (Bld) [#/Vol] 3.0 10*3/uL 2.0-7.7 [facility] Neutrophils/100 WBC (Bld) 46.7 % 47-70 [facility] Potassium [Moles/Vol] 3.9 mmol/L 3.5-5.1 [facility] Sodium [Moles/Vol] 140 mmol/L 136-145 [facility] WBC (Bld) [#/Vol] 6.5 10*3/uL 4.4-11.0 [facility] Blood erythrocytes count (nu mber/volume)Ordered By: Dr. Cannon on 01-07-2023 RBC (Bld) [#/Vol] 3.61 10*6/uL 4.6-6.2 [facility] Blood hemoglobin measurement (mass/volume)Ordered By: Dr. Cannon on 01-07-2023 Hemoglobin (Bld) [Mass/Vol] 12.1 g/dL 13.0-16.5 [facility] Blood lymphocytes/100 leukoc ytesOrdered By: Dr. Cannon on 01-07-2023 Lymphocytes/100 WBC (Bld) 33.8 % 19-41 [facility] Blood monocytes/100 leukocyt esOrdered By: Dr. Cannon on 01-07-2023 Monocytes/100 WBC (Bld) 15.2 % 0-10 [facility] Blood platelet mean volumeOr dered By: Dr. Cannon on 01-07-2023 Platelet mean volume (Bld) [Entitic vol] 8.9 fL 6.2-12.0 [facility] Culture, urineOrdered By: Dr Shanthi Malik on 01-07-2023 Bacteria identified Cx Nom (U) Culture exhibits no growth. [facility] Determination of erythrocyte mean corpuscular volume (MCV)Ordered By: Dr. Cannon on 01-07-2023 MCV (RBC) [Entitic vol] 102.5 fL 80-94 [facility] Hematocrit Auto (Bld) [Volum e fraction]Ordered By: Dr. Cannon on 01-07-2023 Hematocrit (Bld) [Volume fraction] 37.0 % 40-54 [facility] Laboratory - Chemistry and C hemistry - challengeOrdered By: Dr. Cannon on 01-07-2023 CO2 [Moles/Vol] 24.0 mmol/L 21.0-32.0 [facility] Urea nitrogen/Creatinine [Mass ratio] 27.1 mg/mg 10-20 [facility] Laboratory - Hematology and Cell countsOrdered By: Dr. Cannon on 01-07-2023 Erythrocyte distribution width (RBC) [Entitic vol] 47.9 fL 35.1-43.9 [facility] Erythrocyte distribution width (RBC) [Ratio] 12.8 % 11.6-14.6 [facility] Immature granulocytes/100 WBC (Bld) 1.100 % 0.0-0.9 [facility] Comment on above: IG% - Immature Granu locytes (promyelocytes, myelocytes and metamyelocytes) > 1% indicates that a LEFT SHIFT is Present. MCH (RBC) [Entitic mass] 33.5 pg 27.0-32.0 [facility] Nucleated RBC/100 WBC (Bld) [Ratio] 0 % 0-5 [facility] MCHC Auto (RBC) [Mass/Vol]Or dered By: Dr. Cannon on 01-07-2023 MCHC (RBC) [Mass/Vol] 32.7 g/dL 32-36 [facility] No Panel InformationOrdered By: Dr. Cannon on 01-07-2023 Estimated Creatinine Clearance Calc 52.95 ml/min [facility] Estimated GFR (MDRD) Amer 242 mL/min >60 [facility] Comment on above: GFR Calc Estimated GFR (MDRD) Non-Af Amer 200 mL/min >60 [facility] Comment on above: Non- GFR Calc Platelets bldOrdered By: Dr. Cannon on 01-07-2023 Platelets (Bld) [#/Vol] 132 10*3/uL 150-450 [facility] Serum or plasma calcium minda urement (mass/volume)Ordered By: Dr. Cannon on 01-07-2023 Calcium [Mass/Vol] 8.8 mg/dL 8.5-10.1 [facility] Serum or plasma creatinine m easurement (mass/volume)Ordered By: Dr. Cannon on 01-07-2023 Creatinine [Mass/Vol] 0.44 mg/dL 0.70-1.30 [facility] Comment on above: The validity of the calculated GFR & GFRAA in patients over 70 years has not been determined. Clinical correlation is essential. Serum or plasma urea nitroge n measurement (mass/volume)Ordered By: Dr. Cannon on 01-07-2023 Urea nitrogen [Mass/Vol] 12 mg/dL 7-18 [facility] Thin prep Papanicolaou smear with manual screeningOrdered By: Dr. Cannon on 01-07-2023 Thin prep Papanicolaou smear with manual screening 6 5-15 [facility] Basophil percentageOrdered B y: Dr. Cannon on 01-06-2023 Basophil percentage 2.2 mg/dL 2.5-4.9 [facility] Laboratory - Chemistry and C hemistry - challengeOrdered By: Dr. Cannon on 01-06-2023 Magnesium [Mass/Vol] 2.0 mg/dL 1.6-2.6 [facility] Basophil percentageOrdered B y: Dr. Hooper on 01-05-2023 Bilirubin [Mass/Vol] 0.30 mg/dL 0.20-1.00 [facility] Comment on above: For patients on eltr ombopag therapy, use of Dimension Mobile TBIL is not recommended. Protein [Mass/Vol] 5.5 g/dL 6.4-8.2 [facility] Laboratory - Chemistry and C hemistry - challengeOrdered By: Dr. Hooper on 01-05-2023 ALP [Catalytic activity/Vol] 48 U/L 45-117 [facility] ALT [Catalytic activity/Vol] 8 U/L 16-61 [facility] Globulin (S) [Mass/Vol] 3.0 g/dL 2.2-4.2 [facility] No Panel InformationOrdered By: Dr. Hooper on 01-05-2023 Valproic Acid (Depakene) Level 57 ug/mL 50-100 [facility] Serum or plasma albumin minda urement (mass/volume)Ordered By: Dr. Hooper on 01-05-2023 Albumin [Mass/Vol] 2.5 g/dL 3.2-5.0 [facility] Serum or plasma albumin/glob ulin mass ratioOrdered By: Dr. Hooper on 01-05-2023 Albumin/Globulin [Mass ratio] 0.8 {ratio} 0.9-2.4 [facility] Thin prep Papanicolaou smear with manual screeningOrdered By: Dr. Hooper on 01-05-2023 Thin prep Papanicolaou smear with manual screening 15 U/L 15-37 [facility] Basophil percentageOrdered B y: Dr. Malik on 01-04-2023 Basophil percentage 0 SEEN /hpf 0-5 [facility] Bilirubin Test strip Ql (U)O rdered By: Dr. Malik on 01-04-2023 Bilirubin Ql (U) Negative Negative [facility] INR in Blood by Coagulation assayOrdered By: Dr. Malik on 01-04-2023 INR Coag (Bld) [Relative time] 1.0 {INR} [facility] Ketones Test strip Ql (U)Ord ered By: Dr. Malik on 01-04-2023 Ketones Ql (U) 5 mg/dl Negative [facility] Laboratory - Chemistry and C hemistry - challengeOrdered By: Dr. Malik on 01-04-2023 Cobalamin (Vitamin B12) [Mass/Vol] 504 pg/mL 211-911 [facility] CK [Catalytic activity/Vol] 50 U/L 39-308 [facility] Laboratory - CoagulationOrde red By: Dr. Malik on 01-04-2023 aPTT Coag (Bld) [Time] 24.4 s 24.1-36.2 [facility] PT Coag (PPP) [Time] 12.9 s 11.7-14.9 [facility] Mucus LM Ql (Urine sed)Order ed By: Dr. Malik on 01-04-2023 Mucus Ql (Urine sed) 0 SEEN /hpf [facility] Nitrite Test strip Ql (U)Ord ered By: Dr. Malik on 01-04-2023 Nitrite Ql (U) Negative Negative [facility] No Panel InformationOrdered By: Dr. Malik on 01-04-2023 Thyroid Stimulating Hormone (TSH) 3.10 uIU/mL 0.358-3.74 [facility] Troponin I High Sensitivity 6 pg/mL 3.0-78.0 [facility] Comment on above: Please Note: New Janice t Units and Gender Specific Reference Ranges. For more information see Policy Stat Procedure Mobile High Sensitivity Troponin (TNIH) and attachments. Protein Test strip Ql (U)Ord ered By: Dr. Malik on 01-04-2023 Protein Ql (U) Negative Negative [facility] Serum or plasma folate measu rement (mass/volume)Ordered By: Dr. Malik on 01-04-2023 Folate [Mass/Vol] 9.80 ng/mL 3.1-55.4 [facility] Squamous epithelial cells de tection in urine sediment by light microscopyOrdered By: Dr. Malik on 01-04-2023 Epithelial cells.squamous LM Ql (Urine sed) 0 SEEN /hpf 0-5 [facility] Urine blood detectionOrdered By: Dr. Malik on 01-04-2023 RBC Ql (U) Negative Negative [facility] RBC Ql (U) 0 SEEN /hpf 0-5 [facility] Urine clarityOrdered By: Dr. Malik on 01-04-2023 Clarity (U) Clear Clear [facility] Urine color determinationOrd ered By: Dr. Malik on 01-04-2023 Color (U) Yellow Yellow [facility] Urine glucose detectionOrder ed By: Dr. Malik on 01-04-2023 Glucose Ql (U) Normal mg/dl Normal [facility] Urine leukocyte esterase det ection by dipstickOrdered By: Dr. Malik on 01-04-2023 Leukocyte esterase Test strip Ql (U) Negative Negative [facility] Urine pHOrdered By: Dr. Binta smith on 01-04-2023 pH (U) 8.0 [pH] 5.0 - 8.0 [facility] Urine sediment bacteria coun t by microscopy (number/high power field)Ordered By: Dr. Malik on 01-04-2023 Bacteria LM.HPF (Urine sed) [#/Area] 0 /[HPF] None Seen [facility] Urine specific gravity measu rementOrdered By: Dr. Malik on 01-04-2023 Specific gravity (U) [Rel density] 1.010 1.002-1.03 0 [facility] Urobilinogen Auto test strip Ql (U)Ordered By: Dr. Malik on 01-04-2023 Urobilinogen Ql (U) Normal mg/dl Normal [facility] Absolute lymphocyte countOrd ered By: Dr. Skaggs on 08-11-2022 Lymphocytes Auto (Unsp spec) [#/Vol] 1.27 10*3/uL 0.83-4.51 [facility] Basophil percentageOrdered B y: Dr. Skaggs on 08-11-2022 Basophils/100 WBC (Bld) 0.3 % 0-1 [facility] Chloride [Moles/Vol] 106 mmol/L 98-107 [facility] Eosinophils/100 WBC (Bld) 0.2 % 0-5 [facility] Glucose [Mass/Vol] 131 mg/dL 74-106 [facility] Comment on above: Fasting Glucose resu lt greater than or equal to 126 mg/dL suggests DIABETES MELLITUS per A.D.A. criteria. Neutrophils (Bld) [#/Vol] 11.5 10*3/uL 2.0-7.7 [facility] Neutrophils/100 WBC (Bld) 80.3 % 47-70 [facility] Potassium [Moles/Vol] 3.6 mmol/L 3.5-5.1 [facility] Sodium [Moles/Vol] 141 mmol/L 136-145 [facility] WBC (Bld) [#/Vol] 14.3 10*3/uL 4.4-11.0 [facility] Blood erythrocytes count (nu mber/volume)Ordered By: Dr. Skaggs on 08-11-2022 RBC (Bld) [#/Vol] 4.87 10*6/uL 4.6-6.2 [facility] Blood hemoglobin measurement (mass/volume)Ordered By: Dr. Skaggs on 08-11-2022 Hemoglobin (Bld) [Mass/Vol] 15.6 g/dL 13.0-16.5 [facility] Blood lymphocytes/100 leukoc ytesOrdered By: Dr. Skaggs on 08-11-2022 Lymphocytes/100 WBC (Bld) 8.9 % 19-41 [facility] Blood monocytes/100 leukocyt esOrdered By: Dr. Skaggs on 08-11-2022 Monocytes/100 WBC (Bld) 9.8 % 0-10 [facility] Blood platelet mean volumeOr dered By: Dr. Skaggs on 08-11-2022 Platelet mean volume (Bld) [Entitic vol] 8.8 fL 6.2-12.0 [facility] COVID-19 virus antigen assay Ordered By: Dr. Skaggs on 08-11-2022 SARS-CoV-2 (COVID-19) Ag IA.rapid Ql (Resp) [facility] Determination of erythrocyte mean corpuscular volume (MCV)Ordered By: Dr. Skaggs on 08-11-2022 MCV (RBC) [Entitic vol] 94.5 fL 80-94 [facility] Hematocrit Auto (Bld) [Volum e fraction]Ordered By: Dr. Skaggs on 08-11-2022 Hematocrit (Bld) [Volume fraction] 46.0 % 40-54 [facility] Laboratory - Chemistry and C hemistry - challengeOrdered By: Dr. Skaggs on 08-11-2022 CO2 [Moles/Vol] 24.0 mmol/L 21.0-32.0 [facility] Urea nitrogen/Creatinine [Mass ratio] 11.9 mg/mg 10-20 [facility] Laboratory - Drug toxicology Ordered By: Dr. Skaggs on 08-11-2022 Amphetamines Ql (U) Negative <1000 ng/mL [facility] Benzodiazepines Ql (U) Negative < 200 ng/mL [facility] Cannabinoids Screen Ql (U) Negative < 50 ng/mL [facility] Cocaine Ql (U) Negative < 300 ng/mL [facility] Opiates Ql (U) Negative < 300 ng/mL [facility] Laboratory - Hematology and Cell countsOrdered By: Dr. Skaggs on 08-11-2022 Erythrocyte distribution width (RBC) [Entitic vol] 43.3 fL 35.1-43.9 [facility] Erythrocyte distribution width (RBC) [Ratio] 12.5 % 11.6-14.6 [facility] Immature granulocytes/100 WBC (Bld) 0.500 % 0.0-0.9 [facility] Comment on above: IG% - Immature Granu locytes (promyelocytes, myelocytes and metamyelocytes) > 1% indicates that a LEFT SHIFT is Present. MCH (RBC) [Entitic mass] 32.0 pg 27.0-32.0 [facility] Nucleated RBC/100 WBC (Bld) [Ratio] 0 % 0-5 [facility] MCHC Auto (RBC) [Mass/Vol]Or dered By: Dr. Skaggs on 08-11-2022 MCHC (RBC) [Mass/Vol] 33.9 g/dL 32-36 [facility] No Panel InformationOrdered By: Dr. Skaggs on 08-11-2022 MDMA (Ecstasy) Screen Negative < 500 ng/mL [facility] Urine Barbiturates Screen Negative < 200 ng/mL [facility] Urine Drug Screen Comment [facility] Comment on above: CONFIRMATORY TESTING FOR ALL [...] Urine Methadone Screen Negative < 300 ng/mL [facility] Estimated Creatinine Clearance Calc 53.21 ml/min [facility] Estimated GFR (MDRD) Amer 93 mL/min >60 [facility] Comment on above: GFR Calc Estimated GFR (MDRD) Non-Af Amer 77 mL/min >60 [facility] Comment on above: Non- GFR Calc Ethyl Alcohol Level < 3.0 mg/dL [facility] Comment on above: The serum:whole bloo d ethanol ratio is approximately 1.14and varies slightly with hematocrit. Medical Alcohol reference interval and critical value innon-tolerant individuals; 50 - 100 Impairment 100 Intoxication 100 - 250 Severe Poisoning 250 - 400 Deep/possible fatal coma Platelets bldOrdered By: Dr. Skaggs on 08-11-2022 Platelets (Bld) [#/Vol] 205 10*3/uL 150-450 [facility] Serum or plasma calcium minda urement (mass/volume)Ordered By: Dr. Skaggs on 08-11-2022 Calcium [Mass/Vol] 9.3 mg/dL 8.5-10.1 [facility] Serum or plasma creatinine m easurement (mass/volume)Ordered By: Dr. Skaggs on 08-11-2022 Creatinine [Mass/Vol] 1.01 mg/dL 0.70-1.30 [facility] Comment on above: The validity of the calculated GFR & GFRAA in patients over 70 years has not been determined. Clinical correlation is essential. Serum or plasma urea nitroge n measurement (mass/volume)Ordered By: Dr. Skaggs on 08-11-2022 Urea nitrogen [Mass/Vol] 12 mg/dL 7-18 [facility] Thin prep Papanicolaou smear with manual screeningOrdered By: Dr. Skaggs on 08-11-2022 Thin prep Papanicolaou smear with manual screening 11 5-15 [facility] Urine phencyclidine (PCP) de tectionOrdered By: Dr. Skaggs on 08-11-2022 Phencyclidine Ql (U) Negative < 25 ng/mL [facility] CNOVon 07-31-2022 CNOV Office Visit (CORNELLS ) ANJEL ROSS ([id number]) 1950 M NFR Date Time Provider Department 07/31/22 9:15 AM MATEO BENTON During your visit today, we recorded the following information about you: Mateo Benton III, MD 07/31/2022 9:27 AM Signed Subjective: Patient is status post a colonoscopy completed at [facility] on 07/06/2022. Patient was noted [...] in 5 years. Referring Provider: MATEO BENTON [[id number]] Allergies As of Date: 07/31/2022 Noted Allergy [...] mg by mouth daily at bedtime. - Vxaog-1-NMO-EPA-Fish Oil 1,000 mg (120 mg-180 mg) cap [...] - wit (more content not included)... Normal [facility] Sophie 07-14-2022 CNPN Telephone (GENS) JESSICAANJEL ([id number]) 1950 M NFR Date Time Provider Department 07/14/22 MATEO BENTON [facility] During your visit today, we recorded the following information about you: Silvialorraine Bustamante [facility] 07/14/2022 1:06 PM Signed Patient called requesting results from colonoscopy. Elizabeth Ruth LPN 07/14/2022 1:27 PM Signed Please call patient to schedule a virtual or office visit to view colonoscopy results. Thank you. Anjel# [phone] [facility] 07/14/2022 2:36 [...] mg by mouth daily at bedtime. - Yzlzq-4-BBH-EPA-Fish Oil (FISH OIL) 1,000 mg (120 mg-180 [...] initial [Z00.0 (more content not included)... Normal [facility] CNOVon 04-14-2022 CNOV Office Visit (GENSWS ) ANJEL ROSS ([id number]) 1950 M NFR Date Time Provider Department [...] colonoscopy 03/26/[address] Anjel Nagy at [facility]. Patient was noted to have [...] mg by mouth daily at bedtime. - Eabcl-5-PWA-EPA-Fish Oil (FISH OIL) 1,000 mg (120 mg-180 [...] 3-4 ti (more content not included)... [facility] (NE50MN) JESSICAANJEL ([id number]) 1950 M NFR Date Time Provider Department 03/13/22 ANNIA CHUNG NE50MN During your visit today, we recorded the following information about you: Imani Mejia 03/13/2022 11:11 AM Signed Medication Concern Person Calling Silvia Rehman from [facility] Name of medication Depakote XR. Concern with medication Nurse advised pt is having difficulty swallowing pill and since XR she can't crush. Nurse is asking if can get non XR or liquid so it's not difficult for pt? Patient of Dr. Sheldon Talley, RN 03/13/2022 11:20 AM Signed Recent visit 03/06/22 with Nils MarieTIME SIGNAL WIRER: ASSESSMENT: Anjel Ross is a 71 year [...] Fully Assessed Reason for Visit: Medication Question [8338] Cmt: Depakote XR Order(s):valproic acid (DEPAKENE) 250 [...] mg by mouth daily at bedtime. - Woqqd-0-DVX-EPA-Fish Oil (FISH OIL) 1,000 mg (120 mg-180 [...] 1 tablet (more content not included)... [facility] ANJEL ROSS ([id number]) 1950 M NFR Date Time Provider Department [...] mg by mouth daily at bedtime. - Xgejm-7-SLW-EPA-Fish Oil (FISH OIL) 1,000 mg (120 mg-180 [...] [E88.81] 01/19/2014 (more content not included)... Normal [facility] Vital Signs Date Time Vital Sign Value Performing Clinician Axel herrera 01-31-2025 11:23-0400 Body temperature 97.8 [degF] Dr. Avani Eduardo MD [facility] 01-31-2025 11:23-0400 Heart rate 87 /min Dr. Avani Eduardo MD [facility] 01-31-2025 11:23-0400 Respiratory rate 16 /min Dr. Avani Eduardo MD [facility] 01-31-2025 11:23-0400 SaO2% (BldA) [Mass fraction] 96 % Dr. Avani Eduardo MD [facility] 11-01-2024 10:46-0500 Body temperature 97.7 [degF] Out [facility] 11-01-2024 10:46-0500 Diastolic blood pressure 73 mm[Hg] [facility] 11-01-2024 10:46-0500 Heart rate 74 /min [facility] 11-01-2024 10:46-0500 Respiratory rate 16 /min [facility] 11-01-2024 10:46-0500 SaO2% (BldA) [Mass fraction] 95 % [facility] 11-01-2024 10:46-0500 Systolic blood pressure 134 mm[Hg] [facility] 01-18-2023 14:37-0400 Body temperature 98.2 [degF] Dr. Maddie Cantor [facility] 01-18-2023 14:37-0400 Diastolic blood pressure 65 mm[Hg] Dr. Maddie Cantor [facility] 01-18-2023 14:37-0400 Heart rate 93 /min Dr. Maddie Cantor [facility] 01-18-2023 14:37-0400 Respiratory rate 18 /min Dr. Maddie Cantor [facility] 01-18-2023 14:37-0400 SaO2% (BldA) [Mass fraction] 94 % Dr. Maddie Cantor [facility] 01-18-2023 14:37-0400 Systolic blood pressure 114 mm[Hg] Dr. Maddie Cantor [facility] 01-18-2023 02:19-0400 Body mass index (BMI) [Ratio] 35.9 kg/m2 Dr. Maddie Cantor [facility] 01-18-2023 02:19-0400 Body weight 91.[address] Maddie Cantor [facility] 01-15-2023 11:23-0400 Body height 160.[address] Maddie Cantor [facility] 01-10-2023 09:36-0400 Body temperature 98 [degF] Dr. Maddie Cantor [facility] 01-10-2023 09:36-0400 Diastolic blood pressure 54 mm[Hg] Dr. Maddie Cantor [facility] 01-10-2023 09:36-0400 Heart rate 76 /min Dr. Maddie Cantor [facility] 01-10-2023 09:36-0400 Respiratory rate 16 /min Dr. Maddie Cantor [facility] 01-10-2023 09:36-0400 SaO2% (BldA) [Mass fraction] 97 % Dr. Maddie Cantor [facility] 01-10-2023 09:36-0400 Systolic blood pressure 107 mm[Hg] Dr. Maddie Cantor [facility] 01-10-2023 01:40-0400 Body height 160.[address] Maddie Cantor [facility] 01-10-2023 01:40-0400 Body mass index (BMI) [Ratio] 35.3 kg/m2 Dr. Maddie Cantor [facility] 01-10-2023 01:40-0400 Body weight 90.[address] Maddie Cantor [facility] 01-07-2023 16:25-0400 Body temperature 99 [degF] Dr. Maddie Cantor [facility] 01-07-2023 16:25-0400 Diastolic blood pressure 79 mm[Hg] Dr. Maddie MACIEL [facility] 01-07-2023 16:25-0400 Heart rate 89 /min Dr. Maddie MACIEL [facility] 01-07-2023 16:25-0400 Respiratory rate 16 /min Dr. Maddie Cantor [facility] 01-07-2023 16:25-0400 SaO2% (BldA) [Mass fraction] 98 % Dr. Madide MACIEL [facility] 01-07-2023 16:25-0400 Systolic blood pressure 114 mm[Hg] Dr. Maddie MACIEL [facility] 01-07-2023 12:51-0400 Body mass index (BMI) [Ratio] 37.8 kg/m2 Dr. Maddie Cantor [facility] 01-06-2023 06:00-0400 Body weight 96.[address] Maddie Cantor [facility] 12-31-2022 07:42-0400 Diastolic blood pressure 72 mm[Hg] [facility] 12-31-2022 07:42-0400 Heart rate 69 /min [facility] 12-31-2022 07:42-0400 Respiratory rate 15 /min [facility] 12-31-2022 07:42-0400 SaO2% (BldA) [Mass fraction] 98 % [facility] 12-31-2022 07:42-0400 Systolic blood pressure 139 mm[Hg] [facility] 12-31-2022 06:02-0400 Body height 160.02 cm [facility] 12-31-2022 06:02-0400 Body mass index (BMI) [Ratio] 34.2 kg/m2 [facility] 12-31-2022 06:02-0400 Body temperature 97.2 [degF] [facility] 12-31-2022 06:02-0400 Body weight 87.7 kg [facility] 11-16-2022 19:04-0500 Diastolic blood pressure 69 mm[Hg] [facility] 11-16-2022 19:04-0500 Heart rate 88 /min [facility] 11-16-2022 19:04-0500 Respiratory rate 16 /min [facility] 11-16-2022 19:04-0500 SaO2% (BldA) [Mass fraction] 97 % [facility] 11-16-2022 19:04-0500 Systolic blood pressure 143 mm[Hg] [facility] 11-16-2022 18:12-0500 Body height 175.26 cm [facility] 11-16-2022 18:12-0500 Body mass index (BMI) [Ratio] 27.6 kg/m2 [facility] 11-16-2022 18:12-0500 Body temperature 98.1 [degF] [facility] 11-16-2022 18:12-0500 Body weight 84.9 kg [facility] 08-12-2022 13:43-0500 Diastolic blood pressure 85 mm[Hg] [facility] 08-12-2022 13:43-0500 Heart rate 75 /min [facility] 08-12-2022 13:43-0500 Respiratory rate 15 /min [facility] 08-12-2022 13:43-0500 SaO2% (BldA) [Mass fraction] 98 % [facility] 08-12-2022 13:43-0500 Systolic blood pressure 132 mm[Hg] [facility] 08-11-2022 14:37-0500 Body height 160.02 cm [facility] Work Phone: 08-11-2022 14:37-0500 Body mass index (BMI) [Ratio] 37.2 kg/m2 [facility] 08-11-2022 14:37-0500 Body temperature 97.6 [degF] [facility] 08-11-2022 14:37-0500 Body weight 95.25 kg [facility] 07-06-2022 17:01-0400 Body temperature 97.6 [degF] [facility] Work Phone: 07-06-2022 17:01-0400 Diastolic blood pressure 69 mm[Hg] [facility] Work Phone: 07-06-2022 17:01-0400 Heart rate 71 /min [facility] Work Phone: 07-06-2022 17:01-0400 Respiratory rate 18 /min [facility] Work Phone: 07-06-2022 17:01-0400 SaO2% (BldA) [Mass fraction] 97 % [facility] Work Phone: 07-06-2022 17:01-0400 Systolic blood pressure 126 mm[Hg] [facility] Work Phone: 07-06-2022 11:41-0400 Body height 160.02 cm [facility] Work Phone: 07-06-2022 11:41-0400 Body mass index (BMI) [Ratio] 35.9 kg/m2 [facility] Work Phone: 07-06-2022 11:41-0400 Body weight 92.07 kg [facility] Work Phone: Encounters Encounter Date Encounter Type Care Provider Facility Start: 07-26-2025 ambulatory Avani Eduardo Facility:[facility] Start: 06-26-[address] Avani Eduardo MD [facility] Start: 06-26-2025 End: 06-26-2025 ambulatory Avani MACIEL Facility:[facility] Start: 06-12-2025 ambulatory Avani MACIEL Facili ty:[facility] Start: 06-12-[address] Avani Eduardo MD [facility] Start: 06-05-2025 ambulatory Avani MACIEL Facili ty:[facility] Start: 06-05-[address] Avani Eduardo MD -[facility] Start: 05-29-2025 End: 05-29-[address] Avani Eduardo MD -[facility] Start: 05-29-2025 End: 05-29-[address] Avani Eduardo MD -[facility] Start: 05-29-2025 End: 05-29-2025 ambulatory Avani MACIEL Facility:[facility] Start: 05-08-2025 End: 05-08-[address] Avani Eduardo MD -[facility] Start: 05-08-2025 End: 05-08-[address] Avani Eduardo MD [facility] Start: 05-08-2025 End: 05-08-20[facility] Facility:[facility] Start: 05-01-2025 ambulatory [facility] Facility:[facility] Start: 05-01-[address] Avani Eduardo MD -[facility] Start: 04-24-[address] Avani Eduardo MD [facility] Start: 04-24-2025 End: 04-24-2025 ambulatory [facility] Facility:[facility] Start: 04-03-[address] Avani Eduardo MD [facility] Start: 04-03-2025 End: 04-03-2025 ambulatory [facility] Facility:[facility] Start: 02-28-2025 ambulatory [facility] Facility:[facility] Start: 02-28-[address] Avani Eduardo MD [facility] Start: 02-13-2025 Non-patient / Non-visit Dr. Eris gracia MD -[facility] Start: 02-13-2025 End: 02-13-[address] Avani Eduardo MD [facility] Work Phone: Start: 02-13-2025 End: 02-13-2025 Patient encounter procedure Kourtney SUERO -[facility] Work Phone: Start: 02-13-2025 End: 02-13-2025 ambulatory [facility] Facility:[facility] Start: 02-01-2025 End: 02-01-[address] Avani Eduardo MD -[facility] Start: 02-01-[address] Avani Eduardo MD -[facility] Start: 01-31-2025 End: 01-31-2025 Patient encounter procedure Kourtney SUERO -[facility] Work Phone: Start: 01-31-2025 End: 02-01-2025 ambulatory [facility] Facility:[facility] Start: 01-05-2025 End: 01-05-[address] Avani Eduardo MD -[facility] Start: 01-05-2025 End: 01-05-2025 ambulatory [facility] Facility:[facility] Start: 01-03-2025 End: 01-03-[address] Avani Eduardo MD -[facility] Start: 01-02-2025 End: 01-03-2025 ambulatory Avani buffy Facility:[facility] Start: 01-02-[address] Avani Eduardo MD -[facility] Start: 12-06-2024 End: 12-06-2024 ambulatory [facility] Town Doctor [facility] Work Phone: Start: 12-06-2024 End: 12-06-[address] Avani Eduardo MD -[facility] Start: 12-06-2024 End: 12-06-2024 ambulatory Avanigómez Eduardo Facility:[facility] Start: 11-01-2024 End: 11-01-2024 Patient encounter procedure Kourtney SUERO -[facility] Work Phone: Start: 11-01-2024 End: 11-01-2024 ambulatory Avani Eduardo Facility:[facility] Start: 10-05-2024 End: 10-05-[address] Avani Eduardo MD -[facility] Start: 10-05-2024 End: 10-05-2024 ambulatory Avani cait Facility:[facility] Start: 09-29-2024 End: 09-29-[address] Avani Eduardo MD -[facility] Start: 09-29-2024 End: 09-29-2024 ambulatory Avani Eduardo [facility] Facility:[facility] Start: 04-24-2024 End: 04-24-2024 ambulatory STANTON ANDREWS Not Available Start: 03-27-2024 End: 03-27-2024 ambulatory STANTON ANDREWS Not Available Start: 03-14-2024 End: 03-14-2024 ambulatory STANTON ANDREWS Not Available Start: 01-10-2024 End: 01-10-2024 ambulatory [facility] Work Phone: Start: 01-10-2024 End: 01-10-2024 Departed Referred [facility] Start: 01-10-2024 Registered Referred [facility] Start: 01-03-2024 End: 01-03-2024 ambulatory [facility] Work Phone: Start: 01-03-2024 End: 01-03-2024 Departed Referred [facility] Start: 12-15-2023 End: 12-15-2023 ambulatory [facility] Work Phone: Start: 12-15-2023 End: 12-15-2023 Departed Referred [facility] Start: 11-04-2023 End: 11-04-2023 ambulatory [facility] Work Phone: Start: 11-04-2023 End: 11-04-2023 Departed Referred [facility] Start: 11-04-2023 Registered Referred [facility] Start: 10-20-2023 End: 10-20-2023 ambulatory [facility] Work Phone: Start: 10-20-2023 End: 10-20-2023 Departed Referred [facility] Start: 10-11-2023 End: 10-11-2023 ambulatory [facility] Work Phone: Start: 10-11-2023 End: 10-11-2023 Departed Referred [facility] Start: 10-11-2023 Registered Referred [facility] Start: 10-05-2023 End: 10-05-2023 ambulatory [facility] Work Phone: Start: 10-05-2023 End: 10-05-2023 Departed Referred [facility] Start: 10-05-2023 Registered Referred [facility] Start: 09-22-2023 End: 09-22-2023 ambulatory [facility] Work Phone: Start: 09-22-2023 End: 09-22-2023 Departed Referred [facility] Start: 09-22-2023 Registered Referred [facility] Start: 09-16-2023 End: 09-16-2023 ambulatory STANTON ANDREWS Not Available Start: 09-13-2023 End: 09-13-2023 ambulatory [facility] Work Phone: Start: 09-13-2023 End: 09-13-2023 Departed Referred [facility] Start: 08-30-2023 End: 08-30-2023 ambulatory [facility] Work Phone: Start: 08-30-2023 End: 08-30-2023 Departed Referred [facility] Start: 08-23-2023 End: 08-23-2023 ambulatory [facility] Work Phone: Start: 08-23-2023 End: 08-23-2023 Departed Referred [facility] Start: 08-23-2023 Registered Referred [facility] Start: 05-24-2023 End: 05-24-2023 ambulatory [facility] Work Phone: Start: 05-24-2023 End: 05-24-2023 Departed Referred [facility] Start: 02-16-2023 Registered Referred [facility] Start: 02-09-2023 End: 02-09-2023 Departed Referred [facility] Start: 02-05-2023 End: 02-05-2023 Departed Referred [facility] Start: 01-18-2023 Non-patient / Non-visit Dr. Nelson MACIEL [facility] Start: 01-17-2023 Non-patient / Non-visit Dr. Nelson MACIEL [facility] Start: 01-16-2023 Non-patient / Non-visit Dr. Nelson MACIEL [facility] Start: 01-15-2023 Non-patient / Non-visit Dr. Nelson MACIEL [facility] Start: 01-14-2023 Non-patient / Non-visit Dr. Nelson MACIEL [facility] Start: 01-13-2023 Non-patient / Non-visit Dr. Nelson MACIEL [facility] Start: 01-12-2023 Non-patient / Non-visit Dr. Nelson MACIEL [facility] Start: 01-11-2023 Non-patient / Non-visit Dr. Nelson MACIEL [facility] Start: 01-10-2023 End: 01-18-2023 Evaluation and management of inpatient Dr. Maddie MACIEL [facility] 3 Start: 01-10-2023 End: 01-18-[address] Maddie Cantor [facility] Work Phone: Start: 01-08-2023 End: 01-09-2023 Evaluation and management of inpatient MADDIE CANTOR Facility:[facility] Start: 01-07-2023 Non-patient / Non-visit Dr. Nelson MACIEL [facility] Start: 01-06-2023 Non-patient / Non-visit Dr. Nelson Cantor [facility] Start: 01-05-2023 Non-patient / Non-visit Dr. Nelson MACIEL [facility] Start: 01-04-2023 Non-patient / Non-visit Dr. Nelson MACIEL [facility] Start: 01-04-2023 End: 01-07-2023 Evaluation and management of inpatient Dr. Maddie MACIEL [facility] Start: 12-31-2022 End: 12-31-2022 Emergency department patient visit [facility] Start: 11-16-2022 End: 11-16-2022 Emergency department patient visit [facility] Start: 09-29-2022 Refill Annia telles MD Work Phone: Neurology Comment on above: Refill Request Start: 08-11-2022 End: 08-12-2022 Emergency department patient visit [facility] Start: 07-31-2022 End: 07-31-2022 ambulatory MATEO BENTON Facility:[facility] Start: 07-31-2022 End: 07-31-2022 Patient encounter procedure Mateo Benton MD Work Phone: General Surgery Comment on above: Personal history of colon cancer (Primary Dx); History of colonic polyps Start: 07-14-2022 Telephone encounter Mateo crowder MD Work Phone: General Surgery Comment on above: Results Start: 07-06-2022 End: 07-06-2022 Admission to same day surgery center [facility] Start: 07-06-2022 End: 07-06-2022 ambulatory [facility] Work Phone: Start: 04-14-2022 End: 04-14-2022 ambulatory MADELIN PHYLLIS Facility:[facility] Start: 03-13-2022 Telephone encounter Annia joe MD Work Phone: Neurology Comment on above: Medication Question (Depakote XR) Start: 03-06-2022 End: 03-10-2022 Telemedicine consultation with patient Nils Marie APRN.TIME SIGNAL WIRER Work Phone: [facility] Start: 03-06-2022 End: 03-10-2022 ambulatory Nils M Merner PASTE M[employer]ER [employer]QUID.TIME SIGNAL WIRER Work Phone: Neurology Comment on above: 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) (Primary Dx) Start: 02-26-2022 Telephone encounter Miquel ruano PASTE M[employer]ER [employer]QU[employer].TIME SIGNAL WIRER Work Phone: Neurology Comment on above: Refill Request Start: 02-06-2022 Refill Miquel bundy PASTE M[employer]ER [employer]QU[employer].TIME SIGNAL WIRER Work Phone: Neurology Comment on above: Refill Request Start: 04-05-2018 Ambulatory [facility] Facility :[facility] Procedures Date Procedure Procedure Detail Performing Clinician [...] 07-06-2022 Colonoscopy Start: 03-26-2017 Colonoscopy Miquel ruano PASTE M[employer]ER [employer].TIME SIGNAL WIRER Work Phone: Bacteria identified in Urine by Culture Dr. Maddie MACIEL Urine culture Dr. Maddie MACIEL Viral antigen assay Viral antigen assay Plan of Treatment Date Care Activity Detail Author Start: 07-26-2025 Registered Referred Registered Refer [facility] Start: 04-14-2023 BP CONTROLLED (<130/80) BP CONTROLLE D (<130/80) [facility] Start: 03-18-2023 DIABETES SCREEN DIABETES SCREEN [facility] Start: 01-18-2023 Patient discharge [facility] Start: 01-17-2023 [facility] Start: 01-16-2023 Speech therapy assessment [facility] Start: 01-15-2023 [facility] Start: 01-12-2023 Following clinical pathway protocol [facility] Start: 01-10-2023 Fall prevention [facility] Start: 01-10-2023 Provision of activit y privileges [facility] Start: 01-10-2023 Assessment of risk o f venous thromboembolism [facility] Start: 01-10-2023 Insertion of cathete r into peripheral vein [facility] Start: 01-10-2023 Providing care accor ding to [facility] Start: 01-10-2023 Referral to [facility] Start: 01-10-2023 [facility] Start: 01-10-2023 Following clinical pathway protocol [facility] Start: 01-10-2023 Referral to occupati onal therapist [facility] Start: 01-10-2023 Referral to [facility] Start: 01-10-2023 Admission procedure [facility] Start: 01-10-2023 Patient referral to dietitian [facility] Start: 01-07-2023 Patient discharge [facility] Start: 01-05-2023 Speech therapy assessment [facility] Start: 01-04-2023 Following clinical pathway protocol [facility] Start: 01-04-2023 Provision of activit y privileges [facility] Start: 01-04-2023 Aspiration precautions [facility] Start: 01-04-2023 Assessment of risk o f venous thromboembolism [facility] Start: 01-04-2023 Fall prevention [facility] Start: 01-04-2023 Insertion of cathete r into peripheral vein [facility] Start: 01-04-2023 Introduction of urin dinora catheter [facility] Start: 01-04-2023 Measuring intake and output [facility] Start: 01-04-2023 Providing care accor ding to [facility] Start: 01-04-2023 Referral to occupati onal therapist [facility] Start: 01-04-2023 Referral to [facility] Start: 01-04-2023 Application of elast ic bandage [facility] Start: 01-04-2023 Continuous positive airway pressure ventilation treatment [facility] Start: 01-04-2023 Elevation of affecte d extremity [facility] Start: 01-04-2023 Neurological assessment [facility] Start: 01-04-2023 Wound care [facility] Start: 01-04-2023 End: 01-04-2023 [facility] Start: 01-04-2023 Admission procedure [facility] Start: 10-04-2022 ADVANCE DIRECTIVE DISCUSSION ADVANCE DIRECTIVE DISCUSSION [facility] Start: 08-11-2022 Referral to service [facility] Start: 08-11-2022 End: 08-11-2022 Suicide precautions [facility] Start: 07-06-2022 Colsc flx w/rmvl of tumor polyp lesion snare tq COLONOSCOPY W/LESION REMOVAL [facility] Work Phone: Start: 07-06-2022 Patient discharge [facility] Work Phone: Start: 06-27-2022 COVID-19 VACCINE (4 - Booster for Moderna series) COVID-19 VACCINE (4 - Booster for Moderna series) [facility] Start: 06-04-2022 Influenza vaccination 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) Expected: 03/10/2022, Expires: 05/10/2022 [facility] Work Phone: Comment on above: Expected: 03/10/2022 , Expires: 05/10/2022 Start: 03-10-2022 End: 05-10-2022 levETIRAcetam [Mass/volume] in Serum or Plasma LEVETIRACETAM Lab Routine 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) Expected: 03/10/2022, Expires: 05/10/2022 [facility] Work Phone: Comment on above: Expected: 03/10/2022 , Expires: 05/10/2022 Start: 03-10-2022 End: 05-10-2022 VALPROIC A/DEPAKENE VALPROIC A/DEPAKENE Lab Routine 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) Expected: 03/10/2022, Expires: 05/10/2022 [facility] Work Phone: Comment on above: Expected: 03/10/2022 , Expires: 05/10/2022 Start: 10-04-2021 ADVANCE DIRECTIVE DISCUSSION ADVANCE DIRECTIVE DISCUSSION [facility] Start: 11-20-2020 COVID-19 VACCINE (2 - Moderna 3-dose series) COVID-19 VACCINE (2 - Moderna 3-dose series) [facility] Start: 10-22-2020 LIPID SCREEN LIPID SCREEN [facility] Start: 03-26-2018 Colonoscopy COLONOSCOPY [facility] Start: 03-26-2018 COLORECTAL CANCER SCREENING COLORECTAL CANCER SCREENING [facility] Start: 09-19-2016 FECAL OCCULT BLOOD FECAL OCCULT BLOO D [facility] Start: 11-02-2015 PNEUMOCOCCAL: 65+ (#3) PNEUMOCOCCAL: 65+ (#3) [facility] Start: 11-02-2015 PNEUMOCOCCAL: 65+ (2 - PPSV23 or PCV20) PNEUMOCOCCAL: 65+ (2 - PPSV23 or PCV20) [facility] Start: 07-30-2015 SHINGRIX VACCINE (2 of 3) PALMA GRIX VACCINE (2 of 3) [facility] Start: 2014 PNEUMOVAX AGE 65 AND OVER WITH 5YR LOOKBACK (#1) PNEUMOVAX AGE 65 AND OVER WITH 5YR LOOKBACK (#1) [facility] Start: 06-06-2006 Urine microalbumin profile DTAP,TDAP,TD (1 - Tdap) [facility] Start: 1994 COLOGUARD (FIT-DNA) COLOGUARD (FIT-D NA) [facility] Start: [address] COLONOGRAPHY [facility] Start: 1994 SIGMOIDOSCOPY SIGMOIDOSCOPY [facility] Start: 1967 ANNUAL PCP TEAM USER EXPERIENCE ARCHITECT RODNEY DISEASE VISIT ANNUAL PCP TEAM CHRONIC DISEASE VISIT [facility] Start: 1967 BP CONTROLLED (<130/80) BP CONTROLLE D (<130/80) [facility] Start: 1967 HEPATITIS C SCREENING HEPATITIS C ANA HYDE [facility] Patient Education [facility] Work Phone: Patient referral [facility] Work Phone: [facility] Immunizations Immunization Date Immunization Notes Care Provider Fa shericeroxana 07-21-2022 influenza, injectabl e, quadrivalent, preservative free [facility] 07-21-2022 influenza, seasonal, injectable Dr. Maddie Cantor [facility] 02-24-2022 Covid (Moderna) Dr. Maddie Cantor [facility] 11-18-2020 Covid (Moderna) Dr. Maddie Cantor [facility] 10-23-2020 Covid (Moderna) Dr. Maddie Cantor [facility] 07-26-2015 influenza, high dose seasonal, preservative-free Miquel Obregon PASTE MIXER LIQUID.TIME SIGNAL WIRER Work Phone: [facility] 06-04-2015 zoster vaccine, live Miquel guthrie PASTE MIXER LIQUID.TIME SIGNAL WIRER Work Phone: [facility] 11-02-2014 pneumococcal conjuga te vaccine, 13 valent Miquel Obregon PASTE MIXER LIQUID.TIME SIGNAL WIRER Work Phone: [facility] 08-04-2014 Influenza virus vaccine [facility] 08-02-2014 influenza, seasonal, injectable Miquel Obregon PASTE MIXER LIQUID.TIME SIGNAL WIRER Work Phone: [facility] 07-14-2013 influenza virus vacc ine, unspecified formulation Miquel Obregon PASTE MIXER LIQUID.TIME SIGNAL WIRER Work Phone: [facility] 06-05-2006 tetanus and diphther ia toxoids, adsorbed, preservative free, for adult use (2 Lf of tetanus toxoid and 2 Lf of diphtheria toxoid) Miquel Obregon PASTE MIXER LIQUID.TIME SIGNAL WIRER Work Phone: [facility] 07-30-2005 influenza virus vacc ine, unspecified formulation Miquel Obregon PASTE MIXER LIQUID.TIME SIGNAL WIRER Work Phone: [facility] Work Phone: 06-13-2005 tetanus and diphther ia toxoids, adsorbed, preservative free, for adult use (2 Lf of tetanus toxoid and 2 Lf of diphtheria toxoid) Miquel Obregon PASTE MIXER LIQUID.TIME SIGNAL WIRER Work Phone: [facility] Work Phone: 09-11-1997 pneumococcal polysaccharide vaccine, 23 valent Miquel Obregon PASTE MIXER LIQUID.TIME SIGNAL WIRER Work Phone: [facility] Work Phone: Payers Date Payer Category Payer Unknown [id number] 2024 Self-pay [id number] 2024 Unknown [id number] 2023 Medicare [id number] 2017 Medicaid UHC MEDICAID MYC ARE UHC MEDICAID [id number] 2017-Present [phone] [address] [place] [address] Medicaid [id number] 2017 Medicaid UHC MEDICAID MYC ARE UHC MEDICAID [id number] 2017-Present [phone] [address] [place] [address] Medicaid [id number] 2017 Medicare [id number] 2017 Unknown [id number] 1950 Unknown [id number] 2.16.840.1.349516.3.579.2.9 1950 Unknown [id number] 2.16.840.1.982374.3.579.2.1259 1950 Unknown [id number] 2.16.840.1.819835.3.579.2.1259 1950 Unknown [id number] 2.16.840.1.843195.3.579.2.1259 Medicare [id number] Medicare MEDICARE PART A B [id number] Unknown [id number] 2.16.840.1.395814.3.579.2.462 Unknown [id number] 2.16840.1.989674.3.579.2.462 Unknown [id number] 2.16.840.1.652981.3.579.2.462 Unknown [id number] 2.16.840.1.873016.3.579.2.462 Unknown [id number] 2.16.840.1.420552.3.579.2.462 Unknown [id number] 2.840.1.066247.3.579.2.462 Unknown [id number] 2.840.1.712085.3.579.2.462 Unknown [id number] 2.16.840.1.690614.3.579.2.462 Unknown [id number] 2.16.840.1.744212.3.579.2.462 Unknown [id number] 2.16.840.1.459178.3.579.2.462 Unknown [id number] 2.840.1.856300.3.579.2.462 Unknown [id number] 2.16.840.1.407144.3.579.2.462 Unknown [id number] 2.16.840.1.475659.3.579.2.462 Unknown [id number] 2.16.840.1.478227.3.579.2.462 Unknown [id number] 2.16840.1.729371.3.579.2.462 Unknown [id number] 2.16.840.1.662100.3.579.2.462 Unknown [id number] 2.16.840.1.531151.3.579.2.462 Unknown [id number] 2.840.1.429112.3.579.2.462 Unknown [id number] 2.840.1.985545.3.579.2.462 Unknown [id number] 2.840.1.764548.3.579.2.462 Unknown [id number] 2.0.1.733396.3.579.2.462 Social History Date Type Detail Facility Start: 07-31-2015 End: 01-10-2023 Tobacco smoking status NHIS Never smoked tobacco [facility] Start: 11-11-2020 End: 07-31-2022 Alcohol intake Current non-drinker of alcohol (finding) [facility] Start: 1950 Sex Assigned At Not on file [facility] Start: 01-17-2022 End: 07-31-2022 Exposure to SARS-CoV-2 (event) Not sure [facility] Start: 07-01-2022 End: 01-10-2023 Tobacco smoking status NHIS Unknown if ever smoked [facility] Start: 04-14-2022 None [facility] Start: 07-11-2019 - [facility] Start: 04-14-2022 Non-smoker [facility] Start: 1950 Sex Assigned At Male [facility] Start: 07-31-2015 Tobacco use and exposure Smokeless tobacco non-user [facility] Start: 01-02-2025 Sex Male (finding) [facility] Sex Male [facility] Hospital Goals Date Patient Goal Desired Activity /State Functional Status Date Assessment Result Facility 01-18-2023 Functional status Chair [facility] Work Phone: 01-07-2023 Functional status Activity Abili ty With Assist of 1 [facility] Work Phone: 01-06-2023 Functional status Ambulates [facility] Work Phone: Mental Status Date Assessment Result Facility 01-18-2023 Cognitive function Voice/Name [facility] Work Phone: 01-10-2023 Cognitive function Level Of Cons ciousness Awake;Alert;Appropriate;Follow s Commands [facility] Work Phone: 01-07-2023 Cognitive function Voice/Name [facility] Work Phone: 07-06-2022 Cognitive function Drowsy [facility] Work Phone: 07-06-2022 Cognitive function Arousable To Voice/Nam e [facility] Work Phone: Clinical Notes 01-28-2016 to 01-31-2025 Note Date & Type Note Facility 01-31-2025 Evaluation note Diagnosis Onset Date Resolution Bilateral lower extremity edema acute January 31, 2025 11:04am PVD (peripheral vascular disease) acute January 31 11:04am [facility] Work Phone: 1([phone]) 480-994301-29-2025 Evaluation note* Diagnosis Onset Date Resolution Status Admit Date Bilateral lower extremity edema acute November 01 10:09am PVD (peripheral vascular disease) acute November 01 10:09am [facility] Work Phone: 1(167) 369-646001-29-2025 Evaluation note* Diagnosis Onset Date Resolution Status Admit Date Bilateral lower extremity edema acute November 01 10:09am PVD (peripheral vascular disease) acute November 01 10:09am Bilateral lower extremity edema acute January 31, 2025 11:04am PVD (peripheral vascular disease) acute January 31, 2025 11:04am [facility] Work Phone: 1(370) 114-965504-17-2023 Discharge summary Author [facility] January 18, 2023 2:44pm Note Date/Time January 18, 2023 2:4 4pm [facility] Medical Records Department [address] [place] [address] Discharge Summary 01/18/23 1438 MR#: [id number] Acct: [id number] Name: ANJEL ROSS Rep #:[id number] : 1950 72 From: Kary Recoi MD PCP: NILS CANTOR Status:ADM PAIGE Location: [place] [facility] Providers Date of Admission: 01/10/23 Date of [...] was confirmed from documentation he brought from [facility]. * Total zwue-br-erxu time 17 minutes. Total time spent on [...] 270 mg PO DAILY supplement 01/10/23 omega 1-ujt-bkt-fish oil 1,000 mg (120 mg-180 mg) capsule [...] but this improved. Patient was called for correction and was discharged to the prison facility on 01/18/2023. He was discharged on p.o. lactulose. He is to follow-up with his primary care doctor and is to have monitoring of his ammonia level in the correction. Was referred to gastroenterology on outpatient basis [...] (Auto) 44.0 L, Lymph % (Auto) 38.8, [place] % (Auto) 13.7 H, Eos % (Auto) [...] mg Capsule 200 mg PO TID omega 9-daz-glp-fish oil 1,000 mg (120 mg-180 mg) Capsule 1 cap PO BID ferrous gluconate 270 mg (27 mg iron) Tablet 270 mg PO DAILY Discontinued acetaminophen 325 mg tablet 1,300 mg PO BID Label Comments: 4 TABLETS (1300MG) [facility] / DX:E Referrals / Follow Up: NILS CANTOR [Other] NILS CANTOR [Other] Doctor,Your [Non-Staff] - 1 Day for another exam Disposition Disposition (needs filled in before D/C Order can be placed): [facility] Facility Charges/Coding Visit Charges Inpatient E&M: 72696 Disch Hosp >30min 01/18/23 1444 <Electronically signed by Kary Recio MD> Cosigner Signature (if applicable): CC: Dr. Kary Recio MD; NILS CANTOR~ Signed [facility] Work Phone: 1(632) 954-601704-17-[address] Recio [facility] January 18, 2023 2:38pm Note Date/Time January 18, 2023 2:3 8pm [facility] Medical Records Department [address] [place] [address] Transfer to [facility] MR#: [id number] Acct: [id number] Name: ANJEL ROSS Rep #:[id number] : [...] SERVICES PRIOR TO HIS/HER TRANSFER TO [facility]. 01/18/23 1438<Electronically signed by Kary Recio MD> [...] confirmed from documentation he brought from [facility]. * Total wgdf-cg-ysjm time 17 minutes. Total time spent on [...] mg Capsule 200 mg PO TID omega 8-tqb-esg-fish oil 1,000 mg (120 mg-180 mg) Capsule 1 cap PO BID ferrous gluconate 270 mg (27 mg iron) Tablet 270 mg PO DAILY Discontinued acetaminophen 325 mg tablet 1,300 mg PO BID Label Comments: 4 TABLETS (1300MG) BYTMOUT TWICE DAILY / DX:E Referrals / Follow Up: NILS CANTOR [Other] NILS CANTOR [Other] Doctor,Your [Non-Staff] - 1 Day for another exam Disposition Disposition (needs filled in before D/C Order can be placed): [facility] Facility 01/18/23 1438 <Electronically signed by Kary Recio MD> Cosigner Signature (if applicable): CC: Dr. Kary Recio MD; Dr. Nina Wilder MD; NILS CANTOR ~ [facility] Work Phone: 1(812) 651-301904-16-[address] Wilder [facility] January 17, 2023 3:08pm Note Date/Time January 17, 2023 7:4 6am [facility] Medical Records Department [address] [place] [address] Progress Note - Hospitalist 01/17/23 0746 MR#: [id number] Acct: [id number] Name: ANJEL ROSS Rep #:[id number] : 1950 72 From: Nina Wilder MD PCP: NILS CANTOR Status:ADM PAIGE Location: [place] [address] Reason for Visit Reason for Visit: Diagnoses [...] 41.2 L, Lymph % (Auto) 41.7 H, [place] % (Auto) 13.0 H, Eos % (Auto) [...] 14:28 EDT Reading Location ID and State: [facility] / [place] , Service support , Rhythm Strip Rhythm [...] for their facility after his d/c from [facility] -PT recommends rehab/snf/tcu -Given mental health [...] 30 mins Charges/Coding Visit Charges Inpatient E&M: 13668 Subs Hosp L2 01/17/23 1728 <Electronically signed by Nina Wilder MD> Cosigner Signature (if applicable): CC: ~ Signed [facility] Work Phone: 1(633) 196-784804-15-[address] Wilder [facility] January 16, 2023 11:52am Note Date/Time January 16, 2023 10: 27am [facility] Medical Records Department [address] [place] [address] Progress Note - Hospitalist 01/16/23 1026 MR#: [id number] Acct: [id number] Name: ANJEL ROSS Rep #:[id number] : 1950 72 From: Nina Wilder MD PCP: NILS CANTOR Status:ADM PAIGE Location: [place] [address] Reason for Visit Reason for Visit: Diagnoses [...] Neut % (Auto) 47.5, Lymph % (Auto)36.4, [place] % (Auto) 12.1 H, Eos % (Auto) [...] 30 mins Charges/Coding Visit Charges Inpatient E&M: 53443 Subs Hosp L2 01/16/23 1152 <Electronically signed by Nina Wilder MD> Cosigner Signature (if applicable): CC: ~ Signed [facility] Work Phone: 1(152) 519-150204-14-[address] Wilder [facility] January 15, 2023 9:43am Note Date/Time January 15, 2023 9:4 3am [facility] Medical Records Department [address] [place] [address] Progress Note - Hospitalist 01/15/23 0941 MR#: [id number] Acct: [id number] Name: ANJEL ROSS Rep #:[id number] : 1950 72 From: Nina Wilder MD PCP: NILS CANTOR Status:ADM PAIGE Location: [place] [address] Reason for Visit Reason for Visit: Diagnoses [...] H, RDW Coeff of Ronna 13.2, Plt Cqsgd194, MPV 8.4, Immature Gran % (Auto) 1.600 H, Neut % (Auto) 49.3, Lymph % (Auto)34.4, [place] % (Auto) 12.8 H, Eos % (Auto) [...] for their facility after his d/c from [facility] -PT recommends rehab/snf/tcu -Given mental health [...] 20 mins Charges/Coding Visit Charges Inpatient E&M: 47745 Subs Hosp L1 01/15/23 0943 <Electronically signed by Nina Wilder MD> Cosigner Signature (if applicable): CC: ~ Signed [facility] Work Phone: 1(866) 784-399804-13-[address] Wilder [facility] January 14, 2023 1:37pm Note Date/Time January 14, 2023 8:3 9am [facility] Medical Records Department [address] [place] [address] Progress Note - Hospitalist 01/14/23 0838 MR#: [id number] Acct: [id number] Name: ANJEL ROSS Rep #:[id number] : 1950 72 From: Nina Wilder MD PCP: NILS CANTOR Status:ADM PAIGE Location: [place] [address] Reason for Visit Reason for Visit: Diagnoses [...] for their facility after his d/c from [facility] -PT recommends rehab/snf/tcu -Given mental health [...] 20 mins Charges/Coding Visit Charges Inpatient E&M: 28389 Subs Hosp L1 01/14/23 6967 <Electronically signed by Nina Wilder MD> Cosigner Signature (if applicable): CC: ~ Signed [facility] Work Phone: 1(594) 216-390104-12-[address] Wilder [facility] January 13, 2023 9:59am Note Date/Time January 13, 2023 9:5 9am [facility] Medical Records Department [address] [place] [address] Progress Note - Hospitalist 01/13/23 0956 MR#: [id number] Acct: [id number] Name: ANJEL ROSS Rep #:[id number] : 1950 72 From: Nina Wilder MD PCP: NILS CANTOR Status:ADM PAIGE Location: [place]-[place] Reason for Visit Reason for Visit: Diagnoses [...] for their facility after his d/c from [facility] -PT recommends rehab/snf/tcu -Given mental health [...] 30 mins Charges/Coding Visit Charges Inpatient E&M: 45511 Subs Hosp L2 01/13/23 0959 <Electronically signed by Nina Wilder MD> Cosigner Signature (if applicable): CC: ~ Signed [facility] Work Phone: 1(697) 468-222704-11-[address] Wilder [facility] January 12, 2023 8:57am Note Date/Time January 12, 2023 8:5 7am [facility] Medical Records Department [address] [place] [address] Progress Note - Hospitalist 01/12/23 0853 MR#: [id number] Acct: [id number] Name: ANJEL ROSS Rep #:[id number] : 1950 72 From: Nina Wilder MD PCP: NILS CANTOR Status:ADM PAIGE Location: [place] [address] Reason for Visit Reason for Visit: Diagnoses [...] % (Auto) 37.3 L, Lymph % (Auto)40.6, [place] % (Auto) 17.9 H, Eos % (Auto) [...] 30 mins Charges/Coding Visit Charges Inpatient E&M: 82548 Subs Hosp L2 01/12/23 0857 <Electronically signed by Nina Wilder MD> Cosigner Signature (if applicable): CC: ~ Signed [facility] Work Phone: 1(907) 754-285704-10-[address] Wilder [facility] January 11, 2023 5:37pm Note Date/Time January 11, 2023 7:2 1am [facility] Medical Records Department [address] [place] [address] Progress Note - Hospitalist 01/11/23 0721 MR#: [id number] Acct: [id number] Name: ANJEL ROSS Rep #:[id number] : 1950 72 From: Nina Wilder MD PCP: NILS CANTOR Status:ADM PAIGE Location: [place] [address] Reason for Visit Reason for Visit: Diagnoses [...] % (Auto) 44.8 L, Lymph % (Auto)35.5, [place] % (Auto) 16.0 H, Eos % (Auto) [...] for their facility after his d/c from [facility] -PT recommends rehab/snf/tcu -Given mental [...] 30 mins Charges/Coding Visit Charges Inpatient E&M: 80232 Subs Hosp L2 01/11/23 1737 <Electronically signed by Nina Wilder MD> Cosigner Signature (if applicable): CC: ~ Signed [facility] Work Phone: 1(879) 913-890204-09-2023 History and physical note Author Dr. Recio [facility] January 10, 2023 3:34pm Note Date/Time January 10, 2023 9:22 am [facility] Medical Records Department [address] [place] [address] H&P Exam - Hospitalist 01/10/23910 MR#: [id number] Acct: [id number] Name: JESSICAANJEL CHAVEZ Rep #:[id number] : 1950 72 From: Kary Recio MD PCP: NILS CANTOR Status:ADM PAIGE Location: [place] [address] HPI - General General Date of Admission: 01/10/23 Date of Service: 01/10/23 Chief Complaint: weakness HPI Narrative ANJEL JESSICA, is a 72 M with a PMH [...] and generalized weakness and is for placement. [facility] Medical History Anxiety Benign essential HTN [...] DAILY supplement 01/10/23[History Last Taken Unknown] omega 2-psc-tuh-fish oil 1,000 mg (120 mg-180 mg) capsule [...] Neut % (Auto) 53.9, Lymph % (Auto)25.6, [place] % (Auto) 16.6 H, Eos % (Auto) [...] Clarity Clear, Urine pH 6.0, Ur Specific [place] 1.015, Urine Protein 15 H, Urine Glucose [...] ID and State: [facility] / [place] , Service support , Assessment & Plan [...] confirmed from documentation he brought from [facility]. * Total owny-hn-lrvx time 17 minutes. Total time spent on evaluation and management of patient, reviewing chart, discussing plan with patient, discussion with nursing and ancillary staff as well as documentation: 60 mins Charges/Coding Visit Charges Inpatient E&M: 39284 Init Hosp L2 Procedures Hospitalists Procedures: 06871 Advncd Care Plan 30 Min 01/10/23 1534 <Electronically signed by Kary Recio MD> Cosigner Signature (if applicable): CC: Dr. Kary Recio MD; NILS CANTOR~ Signed [facility] Work Phone: 1(482) 400-122104-09-2023 Discharge summary Author Breana Avila [facility] January 10, 2023 9:31am Note Date/Time January 10, 2023 3:30 am [facility] Medical Records Department [address] [place] [address] Emergency Department Summary 01/10/23 MR#: [id number] Acct: [id number] Name: ANJEL ROSS Rep #:[id number] : 1950 72 From: Hilario Malik MD PCP: NILS CANTOR Status:REG ER Location: ED ADDENDUM by Dr. Breana Avila DO on 01/10/23 at 0931 [facility] staff called into the ER to say that they cannot accept patient back to their facility as he is high risk for falls and too weak to go back to their facility it was felt he needed admitted and evaluated for prison facility placement. Case discussed with hospitalist to evaluate patientfor admission. 01/10/23 0931<Electronically signed by Remus Ungur DO> Cosigner Signature (if applicable): cc: NILS [...] in person neurology, he was sent to [facility] they excepted him, they did not think he had NPH but rather that his ataxia was related to his high valproate levels. They recommended he be on valproic acid 1000 mg 3 times daily, and Keppra 1500 mg twice daily for his epilepsy. Apparently he just arrived back to assisted [facility] from [facility] past day. There is no other information available at this time. The patient denies having any focal complaints. He initially thought he was at [facility], but he was redirectable and [place] was his second guess. 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 His urinalysis is negative for infection and [...] % (Auto) 53.9 Lymph % (Auto) 25.6 [place] % (Auto) 16.6 H Eos % (Auto) [...] Color Urine Clarity Urine pH Ur Specific [place] Urine Protein Urine Glucose (UA) Urine Ketones [...] (Auto) Neut % (Auto) Lymph % (Auto) [place] % (Auto) Eos % (Auto) Baso % (Auto) Absolute Neuts (auto) Absolute Lymphs (auto) Nucleated RBC % Macrocytosis Sodium Potassium Chloride Carbon Dioxide Anion Gap BUN Creatinine Estim Creat Clear Calc Est GFR (MDRD) Af Amer Est GFR (MDRD) Non-Af BUN/Creatinine Ratio Glucose Calcium Troponin I High Sens Urine Color Yellow Urine Clarity Clear Urine pH 6.0 Ur Specific [place] 1.015 Urine Protein 15 H Urine Glucose [...] ID and State: [facility] / [place] , Service support , Rhythm Strip Rhythm [...] capsule 10 mg PO QHS bismuth subsalicylate [[place] Bismuth] 262 mg/15 mL suspension 524 mg [...] your Primary Care Provider. Call [facility] ([phone]) or report to the closest Emergency Room. Call 911 if necessary. 01/10/23 0711 <Electronically signed by Hilario Malik MD> Cosigner Signature (if applicable): CC: NILS CANTOR ~ Signed [facility] Work Phone: 1(284) 900-920204-09-2023 Discharge summary Author Breana Avila [facility] January 10, 2023 9:31am Note Date/Time January 10, 2023 3:30 am [facility] Medical Records Department [address] [place] [address] [place] [address] Emergency Department Summary 01/10/23 MR#: [id number] Acct: [id number] Name: ANJEL ROSS Rep #:[id number] : 1950 72 From: Hilario Malik MD PCP: NILS CANTOR Status:REG ER Location: ED ADDENDUM by Dr. Breana Avila DO on 01/10/23 at 0931 [facility] staff called into the ER to say that they cannot accept patient back to their facility as he is high risk for falls and too weak to go back to their facility it was felt he needed admitted and evaluated for prison facility placement. Case discussed with hospitalist to evaluate patientfor admission. 01/10/23 09<Electronically signed by Breana Avila DO> Cosigner Signature [...] in person neurology, he was sent to [facility] they excepted him, they did not think he had NPH but rather that his ataxia was related to his high valproate levels. They recommended he be on valproic acid 1000 mg 3 times daily, and Keppra 1500 mg twice daily for his epilepsy. Apparently he just arrived back to [facility] from [facility] past day. There is no other information available at this time. The patient denies having any focal complaints. He initially thought he was at [facility], but he was redirectable and [place] was his second guess. 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 His urinalysis is negative for infection and [...] % (Auto) 53.9 Lymph % (Auto) 25.6 [place] % (Auto) 16.6 H Eos % (Auto) [...] Color Urine Clarity Urine pH Ur Specific [place] Urine Protein Urine Glucose (UA) Urine Ketones [...] (Auto) Neut % (Auto) Lymph % (Auto) [place] % (Auto) Eos % (Auto) Baso % (Auto) Absolute Neuts (auto) Absolute Lymphs (auto) Nucleated RBC % Macrocytosis Sodium Potassium Chloride Carbon Dioxide Anion Gap BUN Creatinine Estim Creat Clear Calc Est GFR (MDRD) Af Amer Est GFR (MDRD) Non-Af BUN/Creatinine Ratio Glucose Calcium Troponin I High Sens Urine Color Yellow Urine Clarity Clear Urine pH 6.0 Ur Specific [place] 1.015 Urine Protein 15 H Urine Glucose [...] ID and State: [facility] / [place] , Service support , Rhythm Strip Rhythm [...] capsule 10 mg PO QHS bismuth subsalicylate [[place] Bismuth] 262 mg/15 mL suspension 524 mg [...] your Primary Care Provider. Call [facility] ([phone]) or report to the closest Emergency Room. Call 911 if necessary. 01/10/23 0711 <Electronically signed by Hilario Malik MD> Cosigner Signature (if applicable): CC: NILS CANTOR ~ Signed [facility] Work Phone: 1(352) 980-625504-08-2023 NoteHNO ID: [id number] Author: Anitha Burnette RN Service: Nursing Author Type: Registered Nurse Type: Nursing Progress Note Filed: 01/09/2023 2:00 PM Note Text: Updated patient's sister, Cha, on status and discharge tonight.[facility]04-07-2023 NoteHNO ID: [id number] Author: Adán De MD Service: Neurology General Author Type: Physician Type: Plan of Care Filed: 01/08/2023 2:40 PM Note Text: Staff Addendum: I have seen the patient, performed a neurological examination and reviewed the records personally with the resident/midlevel above and agree with the documentation. Please see their note for details. 72 year old male with chronic gait difficulties who is presenting to [facility] as a transfer from [facility] d/t concerns of NPH. Patient had [...] on ammonia levels Home regimen in [facility] is incorrect, should not be on redundant therapy with both liquid and tab Depakote (likely 2 separate orders placed at different time frames), per epilepsy notes, he is to be on 1000 mg TID Outpatient follow up with epilepsy service post discharge Adán De MD [facility] NoteHNO ID: [id number] Author: Lorene Ortiz MD Service: Hospital Medicine [...] Date: 01/04/2023 Images were obtained outside of [facility] OT-Chest 1 View IMPORT Result Date: 01/04/2023 Images were obtained outside of [facility] Most recent EKG normal sinus [...] HTN, and KYA He was admitted to [facility] 5 days prior due to [...] NAME: Anjel Ross DATE: 01/08/2023 TIME: 12:14 [facility]02-13-[address] Sherman [facility] November 16, 2022 6:41pm Note Date/Time November 16, 2022 6:41pm [facility] Medical Records Department [address] [place] [address] Emergency Department Summary 11/16/22 MR#: [id number] Acct: [id number] Name: ANJEL ROSS Rep #:[id number] : 1950 72 From: Tate Sherman MD PCP: Becka Hines, PERINATAL BREASTFEEDING ASSISTANTWojciech Status: PRE ER Location: ED HPI History of Present Illness Chief Complaint: Male Pain/Injury Narrative Narrative: Patient presents with scrotal bleeding from the ECF. Patient has no complaints. Seems the bleeding had subsided upon ED presentation. [facility] Medical History Anxiety Benign essential HTN [...] bismuth subsalicylate 262 mg/15 mL oral suspension ([place] Bismuth) 524 mg PO Q30- 60M PRN [...] capsule 10 mg PO QHS bismuth subsalicylate [[place] Bismuth] 262 mg/15 mL suspension 524 mg [...] (Reason: Congestion) Primary Care Provider: Becka Hines PERINATAL BREASTFEEDING ASSISTANT Referrals: Becka Hines PERINATAL BREASTFEEDING ASSISTANT, PERINATAL BREASTFEEDING ASSISTANT-C [Primary Care Provider] - Activity Restrictions/Additional Instructions: [...] your Primary Care Provider. Call [facility] ([phone]) or report to the closest Emergency Room. Call 911 if necessary. 11/16/22 184 <Electronically signed by Tate Sherman MD> Cosigner Signature (if applicable): CC: PERINATAL BREASTFEEDING ASSISTANT-C Becka Hines ~ Signed [facility] Work Phone: [phone]) [phone] Miscellaneous Notes* Telephone Encounter - Yury Gerber [...] Please Fax Caller Contact Number: [facility] Pharmacy Number: [phone] Generic/ brand: 30 or 90 day supply requested: 90 Last appointment: 03/06/22 Next Appointment: none Patient of Dr. Chung documented in [facility] NoteHNO ID: [id number] Author: Mateo Benton MD Service: ? Author Type: Physician Type: Progress Notes Filed: 07/31/2022 9:27 AM Note Text: Subjective: Patient is status post a colonoscopy completed at [facility] on 07/06/2022. Patient was noted [...] need to have another colonoscopy in 5 years.[facility]10-28-2022 History of Present illness Narrative* Mateo Benton MD - 07/31/2022 9:23 AM EDT Subjective: Patient is status post a colonoscopy completed at [facility] on 07/06/2022. Patient was noted [...] colonoscopy in 5 years. documented in this encounterHolzer [facility]10-11-2022 Miscellaneous Notes* Telephone Encounter - Georgie Huitron - 07/14/2022 2:35 PM EDT They will call back to schedule.Georgie Huitron * Telephone Encounter - Elizabeth Ruth LPN - 07/14/2022 1:26 PM EDT Please call patient to schedule a virtual or office visit to view colonoscopy results. Thank you. Anjel# [phone] * Telephone Encounter - Silvia Huitron - 07/14/2022 1:05 PM EDT Patient called requesting results from colonoscopy. documented in this encounterHolzer [facility]07-12-2022 NoteHNO ID: [id number] Author: Madelin Ferguson PA-C Service: ? Author Type: Physician Metal Machinist Type: Progress Notes Filed: 04/27/2022 9:34 AM [...] colonoscopy 03/26/[address] Anjel Nagy at [facility]. Patient was noted to have [...] mg by mouth daily at bedtime. - Edrgj-3-COC-EPA-Fish Oil (FISH OIL) 1,000 mg (120 mg-180 [...] chloride (KLOR-CON) 20 mEq (more content not included)...[facility]06-10-2022 Miscellaneous Notes* Telephone Encounter - Gerri De [...] AM EDT Recent visit 03/06/22 with Nils Maire CNP: ASSESSMENT: Anjel Ross is a 71 [...] Medication Concern Person Calling Silvia Rehman from [facility] Name of medication Depakote XR. Concern with medication Nurse advised pt is having difficulty swallowing pill and since XR she can't crush. Nurse is asking if can get non XR or liquid so it's not difficult for pt? Patient of Dr. Chung documented in this encounterHolzer [facility] Center [facility]06-03-2022 NoteHNO ID: [id number] Author: Nils Marie APRN.TIME SIGNAL WIRER Service: ? Author Type: Nurse Practitioner Type: Progress Notes Filed: 03/10/2022 9:06 AM Note Text:[facility]06-03-2022 NoteHNO ID: [id number] Author: Nils Marie APRN.TIME SIGNAL WIRER Service: ? Author Type: Nurse Practitioner Type: Progress Notes Filed: 03/10/2022 9:01 AM Note Text: [facility] VIRTUAL VISIT HISTORY [...] Retired. Lives in assisted living place in [place], [place] Driving: no Mood: ok Memory: poor [...] mg by mouth daily at bedtime. - Sekor-8-TFF-EPA-Fish Oil (FISH OIL) 1,000 mg (120 mg-180 [...] OR W/O BRSH SPEC 03/25/16 Colonoscopy outpt [facility] W/REM POLYP HT BX 03/26/2017 - EG (more content not included)...[facility]06-03-20[facility] History of Present illness Narrative* Nils Marie, PASTE MIXER LIQUID.TIME SIGNAL WIRER - 03/06/2022 2:10 PM EDT [facility] VIRTUAL VISIT HISTORY OF PRESENT ILLNESS: Anjel Ross is a 71 year old male who is diagnosed with seizures, and presents today for virtual visit. They are an established patient of Dr. Chung's and was last seen on 11/11/2020. Seizures: None that he can remember Last reported GTC around gi08/2020. AED's: LEV 1500mg BID VPA 1000mg TID Pregabalin 200mg TID In other health,stable for what he can tell me and staff around him. Occupation: Retired. Lives in assisted living place in [place], [place] Driving: no Mood: ok Memory: poor [...] 10 mg by mouth daily at bedtime. Zqght-5-YVV-EPA-Fish Oil (FISH OIL) 1,000 mg (120 mg-180 [...] CIRCUMCISION,OTHR AGE 6 COLONOSCOP W/ OR W/O [facility] SPEC 09/11/2005 Colonoscopy COLONOSCOP W/ OR W/O [facility] SPEC 12/06/14 Colonoscopy COLONOSCOP W/ OR W/O [facility] SPEC 03/25/16 Colonoscopy outpt [facility] [...] ANGIOPLASTY, ASHD Cancer Father LUNG Heart Father NV X 3 Heart Maternal Aunt NV Diabetes Maternal Aunt other (EPILEPSY) Paternal Grandfather [...] 03/06/2022 2:10 PM EDT documented in this encounterHolzer Medical Center [facility]05-26-2022 Miscellaneous Notes* Telephone Encounter - Miquel Obregon APRN.CNP - 02/26/2022 1:33 PM EDT The following approved medication requests have been transmitted electronically. Signed Prescriptions Disp Refills levETIRAcetam (KEPPRA) 750 mg tablet 120 tablet 0 Si TABLETS (1,500MG) BY MOUTH 2 TIMES A DAY DX: / NURSE TO REORDER CHERIE: No Authorizing Provider: MIQUEL OBREGON APRN.CNP documented in this encounterHolzer Medical Center – [facility]05-06-2022 Miscellaneous Notes* Telephone Encounter - Miquel Obregon APRN.CNP - 02/06/2022 10:12 AM EDT The following approved medication requests have been transmitted electronically. Signed Prescriptions Disp Refills divalproex ER (DEPAKOTE ER) 500 mg 24 hr tablet 180 tablet 0 Sig: Take 2 tablets by mouth three times daily. CHERIE: No Authorizing Provider: MIQUEL OBREGON documented in this encounterHolzer Medical Center [facility]04-26-2016 History of Past illness Narrative* Problem Noted [...] of this encounter (statuses as of 02/06/2022) [facility] History of Past illness Narrative* Problem Noted [...] of this encounter (statuses as of 03/10/2022) [facility] History of Past illness Narrative* Problem Noted [...] of this encounter (statuses as of 03/13/2022) [facility] History of Past illness Narrative* Problem Noted [...] of this encounter (statuses as of 07/14/2022) [facility] History of Past illness Narrative* Problem Noted [...] of this encounter (statuses as of 07/31/2022) [facility] History of Past illness Narrative* Problem Noted [...] of this encounter (statuses as of 10/05/2022) [facility]* Diagnosis 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)- Primary documented in this encounter [facility] noteNo assessment information availableWooCenterville Work Phone: Evaluation note* Diagnosis Personal history of colon cancer- Primary Personal history of malignant neoplasm of large intestine History of colonic polyps Personal history of colonic polyps documented [facility] this encounter [facility]* Diagnosis Onset Date Resolution Status Ataxia acute Hypokalemia acute Serum sodium valproate above therapeutic range acute Encounter for medical screening examination acute Weakness acute [facility] Work Phone: Evaluation note* Diagnosis Onset Date Resolution Status Ataxia acute Hypokalemia resolved Serum sodium valproate above therapeutic range resolved Encounter for medical screening examination acute Weakness acute [facility] Work Phone: Hospital Discharge instructions Additional Instructions You have a very small area of scrotal bleeding if this happens again put pressure on the scrotum for 15 minutes.[facility] Work Phone: Hospital Discharge instructions Additional Instructions Imaging of brain/head and low back and negative for nothing acute, old L1 compression fracture noted and stable.[facility] Work Phone: Hospital Discharge instructions Additional Instructions Patient again has a normal work-up including a normal valproic acid level. He was offered higher level of care such as prison, and he declined/refuses. Ambulatory in ED with a walker at baseline.[facility] Work Phone: Reason for referral (narrative)No reason for referral information availableWOur Lady of [facility] Work Phone: Summary Purpose Family History No Family History Records Found Relationship Condition Age at Onset Recorded Date/T anh mother Chronic obstructive pulmonary disease Unk nown Coronary artery disease Unknown father Malignant neoplasm Unknown Cardiac disease Unknown Myocardial infarction Unknown aunt Coronary artery disease Unknown Advance Directives No Advanced Directives Records FoundDocuments on File Type Date Recorded Patient Developmental Therapist Expl anation Advance Directive(s) 03/18/2020 12:37 PM Advance Directive(s) 02/21/2020 1:12 PM Advance Directive(s) 12/08/2019 4:35 PM Advance Directive(s) 05/05/2016 10:27 AM Advance Directive(s) 12/27/2015 9:39 AM Advance Directive(s) 12/13/2015 10:23 AM Advance Directive Response Recorded Date/ Time Advance Directives Yes May 27, 2018 9:42am Living Will Yes July 01, 2022 1:39pm Power of Tmh Teacher Yes June 1:39pm Name of Medical Power of Tmh Teacher MARLY DAVIDSONMorgan MARINELLIYDER July 01, 2022 1:39pm Documents on File Type Date Recorded Patient Developmental Therapist Expl anation Advance Directive(s) 05/05/2016 10:27 AM Advance Directive Response Recorded Date/ Time Name of Medical Power of Tmh Teacher MARLY DAVIDSONLEY CONTI July 01, 2022 12:39pm Advance Directives Yes May 27, 2018 8:42am Living Will No August 11 3:00pm Power of Tmh Teacher No August 11, 2022 3:00pm Advance Directive Response Recorded Date/ Time Name of Medical Power of Tmh Teacher SUSHMA DAVIDSONLEY Kiera CARMEN November 16, 2022 6:13pm Advance Directives Yes May 27, 2018 8:42am Living Will Yes November 16 6:13pm Power of Tmh Teacher Yes November 16, 2022 6:13pm Advance Directive Response Recorded Date/ Time Name of Medical Power of Tmh Teacher SUSHMA Qureshi CARMEN November 16, 2022 7:13pm Name of Medical Power of Tmh Teacher unknown December 31, 2022 6:02am Advance Directives Yes May 27, 2018 9:42am Living Will Yes December 31, 2022 6:02am Power of Tmh Teacher Yes December 31 6:02am Advance Directive Response Recorded Date/ Time Name of Medical Power of Tmh Teacher SUSHMA MORALES November 16, 2022 7:13pm Name of Medical Power of Tmh Teacher unknown December 31, 2022 6:02am Name of Medical Power of Tmh Teacher DREA CONTI January 04, 2023 8:30pm Name of Medical Power of Tmh Teacher ? January 10, 2023 1:42am Advance Directives Yes May 27, 2018 9:42am Living Will Yes January 10, 2023 1:42am Power of Tmh Teacher Yes January 10 1:42am Advance Directive Response Recorded Date/ Time Name of Medical Power of Tmh Teacher USSHMA MORALES November 16, 2022 7:13pm Name of Medical Power of Tmh Teacher unknown December 31, 2022 6:02am Name of Medical Power of Tmh Teacher DREA CONTI January 04, 2023 8:30pm Name of Medical Power of Tmh Teacher Drea Conti (sushma) January 10, 2023 10:23am Advance Directives Yes May 27, 2018 9:42am Living Will Yes January 10, 2023 10:23am Power of Tmh Teacher Yes January 10 10:23am Advance Directive Response Recorded Date/ Time Advance Directives Yes July 12, 2020 10:01am Living Will Yes January 10, 2023 10:23am Power of Tmh Teacher Yes January 10 10:23am Advance Directive Response Recorded Date/ Time Advance Directives Yes July 12, 2020 9:01am Living Will Yes January 10, 2023 9:23am Power of Tmh Teacher Yes January 10 9:23am Advance Directive Response [...] 01, 2024 10:09am PVD (peripheral vascular disease) Ramiro villela 2024 10:09am Chief Complaint Admit Date Doppler [...] 31, 2025 11:04am Chief Complaint Admit Date LONGTERM LAB WORK April 03, 2025 5:0 0am LONGTERM LAB WORK April 24, 2025 4: 00am LONGTERM LAB WORK May 01, 2025 6: 05am LONGTERM LAB WORK May 08, 2025 4 :00am LONGTERM LAB WORK May 29, 2025 5:00am LABWORK June 05, 2025 5:00am LONGTERM LAB WORK June 12 5:00am LONGTERM LAB WORK June 26 5:00am Additional Source Comments (unrecognized sect ion and content) No Status Records FoundNo Status Records FoundNo Status Records FoundNo Status Records FoundNo Status Records Found INFORMATION SOURCE (unrecogn ized section and content) DATE CREATED AUTHOR 03/23/2018 [facility] DATE CREATED AUTHOR AUTHOR'S ORGANIZ ATION 08/01/2022 [facility] DATE CREATED AUTHOR AUTHOR'S ORGANIZ ATION 01/16/2023 [facility] DATE CREATED AUTHOR AUTHOR'S ORGANIZ ATION 04/27/2024 [facility] EPIC DATE CREATED AUTHOR AUTHOR'S ORGANIZ ATION [facility]/20[facility] Source Comments (unrecognize d section and content) In the event this informatio n is protected by the Federal Confidentiality of Alcohol and Drug Abuse Patient Records regulations: The Federal rules restrict any use of the information to criminally investigate or prosecute any alcohol or drug abuse patient.[facility] the event this information is protected by the Federal Confidentiality of Alcohol and Drug Abuse Patient Records regulations: The Federal rules restrict any use of the information to criminally investigate or prosecute any alcohol or drug abuse patient.[facility] JacksonIn the event this information is protected by the Federal Confidentiality of Alcohol and Drug Abuse Patient Records regulations: The Federal rules restrict any use of the information to criminally investigate or prosecute any alcohol or drug abuse patient.[facility] JacksonIn the event this information is protected by the Federal Confidentiality of Alcohol and Drug Abuse Patient Records regulations: The Federal rules restrict any use of the information to criminally investigate or prosecute any alcohol or drug abuse patient.[facility] JacksonIn the event this information is protected by the Federal Confidentiality of Alcohol and Drug Abuse Patient Records regulations: The Federal rules restrict any use of the information to criminally investigate or prosecute any alcohol or drug abuse patient.[facility] JacksonIn the event this information is protected by the Federal Confidentiality of Alcohol and Drug Abuse Patient Records regulations: The Federal rules restrict any use of the information to criminally investigate or prosecute any alcohol or drug abuse patient.[facility] JacksonIn the event this information is protected by the Federal Confidentiality of Alcohol and Drug Abuse Patient Records regulations: The Federal rules restrict any use of the information to criminally investigate or prosecute any alcohol or drug abuse patient.[facility] Reason for Visit (unrecogniz ed section and content) Reason Comments Refill Request Reason Comments Follow Up Refill Request Seizures Reason Comments Medication Question Depakote XR Reason Comments Results Reason Comments Follow Up Review colonoscopy r esults Reason Onset Date Comments Refill Request 09/29/2022 Care Teams (unrecognized sec tion and content) Loading And Unloading Supervisor Relationship Specialty Start Date End Date Maddie Cantor [address] [place] [address] PCP - General Internal Medicine 02/21/20 Loading And Unloading Supervisor Relationship Specialty Start Date End Date Maddie Cantor [address] [place] [address] PCP - General Internal Medicine 02/21/20 Loading And Unloading Supervisor Relationship Specialty Start Date End Date Maddie Cantor [address] [place] [address] PCP - General Internal Medicine 02/21/20 Loading And Unloading Supervisor Relationship Specialty Start Date End Date Maddie Cantor [address] [place] [address] PCP - General Internal Medicine 02/21/20 Team Status: Active Member Role Status Dates Becka Hines PERINATAL BREASTFEEDING ASSISTANT, PERINATAL BREASTFEEDING ASSISTANT-C Family Provider Active No Primary Care Physician Primary Care Provider Active Team Status: Inactive Member Role Status Dates Becka Hines PERINATAL BREASTFEEDING ASSISTANT, PERINATAL BREASTFEEDING ASSISTANT-C Primary Care Provider Act ashish Dr. Donovan Skaggs MD Attending Provider, Emergency Provi tsering Active Team Status: Inactive Member Role Status Dates Dr. Tate Sherman MD Emergency Provider Active No Primary Care Physician Primary Care Provider Active Team Status: Active Member Role Status Dates Becka Hines PERINATAL BREASTFEEDING ASSISTANT, PERINATAL BREASTFEEDING ASSISTANT-C Family Provider Active Dr. Maddie MACIEL, DO [...] Active Member Role Status Dates Becka Hines PERINATAL BREASTFEEDING ASSISTANT, PERINATAL BREASTFEEDING ASSISTANT-C Family Provider Active NISL CANTOR Primary Care Provider Active Team Status: [...] MD Admit Provider, Other Provider Active Dr. Chnio Cannon MD Attending Provider, Other Provid er [...] Active Member Role Status Dates Becka Hines PERINATAL BREASTFEEDING ASSISTANT, PERINATAL BREASTFEEDING ASSISTANT-C Family Provider Active [facility] Doctor Primary Care Provider Active Team Status: Inactive Member Role Status Dates [facility] Doctor Primary Care Provider Active [facility] Attending Provider Acti ve Team Status: Inactive Member Role Status Dates [facility] Doctor Primary Care Provider Active Dr. Avani MACIEL MD Attending Provider Active Team Status: Active Member Role Status Dates [facility] Doctor Primary Care Provider Active Dr. Avani MACIEL MD Attending Provider Active Team Status: Inactive Member Role Status Dates [facility] Doctor Primary Care Provider Active Dr. Avani MACIEL MD Attending Provider, Referring Provider Active Team Status: Active Member Role Status Dates Becka Kim Hines PERINATAL BREASTFEEDING ASSISTANT, PERINATAL BREASTFEEDING ASSISTANT-C Family Provider Active Dr. Avani Eduardo MD Primary Care Provider Active Team Status: Inactive Member Role Status Dates [facility] Doctor Primary Care Provider Active Start: [...] 06, 2024 End: December 06, 2024 Dr. Aavni MACIEL MD Attending Provider Active Start: December [...] May 08, 2025 End: May 08, 2025 Team Status: Active Member Role/Relationship Status Dates Dr. Avani Eduardo MD Primary care physician Active Team Status: Active Member Role/Relationship Status Dates Dr. Avani Eduardo MD Primary care physician Active Start: April 03, 2025 Dr. Avani MACIEL MD Attending physician Active Start: April 03, 2025 Team Status: Active Member Role/Relationship Status Dates Dr. Avani Eduardo MD Primary care physician Active Start: April 24, 2025 Dr. Avani MACIEL MD Attending physician Active Start: April 24, 2025 Dr. Avani MACIEL MD Referring Provider Active Start: April 24, 2025 Team Status: Active Member Role/Relationship Status Dates Dr. Avani Eduardo MD Primary care physician Active Start: May 01, 2025 Dr. Avani MACIEL MD Attending physician Active Start: May 01, 2025 Team Status: Inactive Member Role/Relationship Status Dates Dr. Avani Eduardo MD Primary care physician Active Start: May 08, 2025 End: May 08, 2025 Dr. Avani MACIEL MD Attending physician Active Start: May 08, 2025 End: May 08, 2025 Dr. Avani MACIEL MD Referring Provider Active Start: May 08, 2025 End: May 08, 2025 Team Status: Inactive Member Role/Relationship Status Dates Dr. Avani Eduardo MD Primary care physician Active Start: May 29, 2025 End: May 29, 2025 Dr. Avani MACIEL MD Attending physician Active Start: May 29, 2025 End: May 29, 2025 Team Status: Active Member Role/Relationship Status Dates Dr. Avani Eduardo MD Primary care physician Active Start: June 05, 2025 Dr. Avani MACIEL MD Attending physician Active Start: June 05, 2025 Team Status: Active Member Role/Relationship Status Dates Dr. Avani Eduardo MD Primary care physician Active Start: June 12, 2025 Dr. Avani MACIEL MD Attending physician Active Start: June 12, 2025 Team Status: Active Member Role/Relationship Status Dates Dr. Avani Eduardo MD Primary care physician Active Start: June 26, 2025 Dr. Avani MACIEL MD Attending physician Active Start: June 26, 2025 Team Status: Active Member Role/Relationship Status Dates Dr. Avani Eduardo MD Primary care physician Active Start: July 26, 2025 Dr. Avani MACIEL MD Attending physician Active Start: July 26, 2025 Goals (unrecognized section and content) Goals [...] BE BASED ON THE PRIMARY CLINICAL RECORDS. [employer]. provides no warranty or guarantee of the accuracy or completeness of information in this document.
[2025-09-11 10:32] LABS: Cholesterol 146 mg/dL (<=200); Low Density Lipoprotein Calc. 70 mg/dL; Triglycerides 267 mg/dL; Valproic Acid (Depakene) Level 75 ug/mL (50-100); Very Low Density Lipoprotein 53 mg/dL (5-40); cholesterol:hdl ratio screen 4.53
[2025-09-15 08:08] LABS: KEPPRA (LEVETIRACETAM) 47.7 ug/mL (10.0-40.0)
== END ==
LOC: OLS.SW 04:00
PROVIDERS: PCP Internal Medicine; Referring Provider Internal Medicine; Visit Provider Internal Medicine
DX: G40.909 Epilepsy, unspecified, not intractable, without status epilepticus (principal); Z79.899 Other long term (current) drug therapy
CPT/HCPCS: 36415; 80061; 80164; 80177

== ENCOUNTER → 2025-09-20 05:00 | Outpatient (REF) | payer MEDICARE, MEDICAID, SELFPAY ==
--- OUTSIDE RECORDS SUMMARY | 2025-09-20 04:12 | XMS RPT_ITS | CCD ---
Author Organization [facility] Care Team Providers Care Grain Spouter Name Role Phone MEG JOE Unavailable Unavailable MEG JOE Unavailable Unavailable [facility] Unavailable Unavailable Maddie Cantor Primary Care Provider [phone] Maddie Cantor Primary Care Provider NILS MARIE [...] ANDREWS Attending Unavailable STANTON ANDREWS Attending Unavailable [facility] Doctor, Out of Primary Care Provider Papa Eduardo MD, Dr. Varma Attending Provider Unavailelizabeth Eduardo MD, Dr. Varma Primary Care Provider UnaKourtney Rob Attending Provider Jayce MUNOZ, Dr. Varma Referring Provider Unavailelizabeth Eduardo MD, Dr. Varma Primary Care Provider Surjit Eduardo MD, Dr. Varma Attending Provider Unavailelizabeth SUERO, Kourtney Referring Provider [phone] Génesis MUNOZ, Dr. Schulte Attending Provider Jayce MUNOZ, Dr. Varma Primary Care Provider Surjit Eduardo MD, Dr. Varma Referring Provider UnavailKourtney Antonio Attending Provider [phone] Avani Eduardo MD Attending Provider [...] Referring Unavailable Gudla Avani MACIEL Attending Unavailable [facility] Doctor, Out of Primary Care Unavailable [...] Drug Allergy 3 Rash [facility] (20 sources) OXcarbazepine; Translations: [OXCARBAZEPINE] Drug Allergy 5 cant remember rxn [facility] (10 sources) salicylic acid; Translations: [SALICYLATES] Drug Allergy 5 [facility] (20 sources) Aspirin Drug Allergy 2 cant remember rxn [facility] (1 source) Aspirin Drug Allergy 5 [facility] Medications Current Medications Medication [...] by mouth once daily at lunch Vitamins A,C,F-Dzwx-Qpnjkk (Eye Multivitamin) 2,148 mcg-113 mg-45 mg-17.4mg Tablet [...] (5 sources) Bismuth Start: 07-15-2020 Bismuth Subsalicylate ([place] Bismuth) 262 mg/15 mL suspension Active 524 [...] Start: 07-11-2019 take 2000 [IU] by mo [facility] at bedtime Cholecalciferol (Vitamin D3) Active [...] on above: Take 2 tablets by mo [facility] twice daily. 2 TABLETS (1,500MG) BY [...] Start: 07-15-2020 take 1 capsule by mo [facility] at bedtime take 1 tablet by [...] by mouth once daily. polyethylene glycol 3350 [id number] mg powder for oral solution (5 sources) [...] by heather th three times daily. sennosides, shelter 8.6 mg oral capsule (5 sources) Start: [...] 17, 2019 1:16pm omega-3 acid ethyl esters (shelter) 1000 mg oral capsule (17 sources) Start: 01-10-2023 End: 11-01-2024 [place] 6-Bim-Sgg-Fish Oil 1,0 00 mg (120 mg-180 mg) Capsule Discontinued 1 NMA PO TWICE A DAY January 10, 2023 12:00am November 01, 2024 11:35am Start: 01-10-2023 take 1 capsule by [facility] twice daily [place] 5-Vlh-Xwf-Fish Oil Active 1 CAP PO TWICE A DAY January 10, 2023 12:00am [place]-3 Fatty Acids-Fish Oil (18 sources) Start: 07-11-2019 End: 07-15-2020 take 2 capsules by mouth twice daily [place]-3 Fatty Acids-Fish Oil Discontinued 2 CAP PO TWICE A DAY July 10, 2019 11:00pm July 15, 2020 1:09pm Start: 07-11-2019 End: 07-15-2020 take 2 capsules by mouth twice daily [place]-3 Fatty Acids-Fish Oil Discontinued 2 CAP PO TWICE A DAY July 11, 2019 12:00am July 15, 2020 2:09pm [place]-3 Fatty Acids-Fish Oil 1 EACH capsule (4 sources) Start: 07-11-2019 End: 07-15-2020 [place]-3 Fatty Acids-Fish Oil 1 EACH capsule Discontinued 2 NMA PO TWICE A DAY July 11, 2019 12:00am July 15, 2020 2:09pm SUPPLEMENT Start: 07-11-2019 End: 07-15-2020 [place]-3 Fatty Acids-Fish Oil 1 EACH capsule Discontinued 2 NMA PO TWICE A DAY July 11, 2019 12:00am July 15, 2020 2:09pm Rbdtx-9-LCF-EPA-Fish Oil (FISH OIL) 1,000 mg (120 mg-180 mg) cap (5 sources) take 1 capsule by mouth twice daily Gbytk-3-IUT-EPA-Fish Oil (FISH OIL) 1,000 mg (120 mg-180 mg) cap Take one capsule by mouth twice daily. 0 Active Comment on above: Take one capsule by mouth twice daily. Ydsdh-6-LCJ-EPA-Fish Oil 1,000 mg (120 mg-180 mg) cap (2 sources) take 1 capsule by mouth twice daily Geifv-7-LEU-EPA-Fish Oil 1,000 mg (120 mg-180 mg) cap [...] 03-22-2020 Chronic Other aftercare (2 sources) Other ferry terminal agent (current) drug therapy; Translations: [Other fpc (current) drug therapy] Onset: 06-15-2025 Episodic Other [...] 07-26-2025 Anion gap [Moles/Vol] 13 mmol/L 02-15 [facility] BUN/creatinine ratioOrdered By: Avani Eduardo on 07-26-2025 Urea nitrogen/Creatinine [Mass ratio] 9.3 mg/mg Low 07-23 [facility] Basic Metabolic Profile (BMP )on 07-26-2025 BUN/CRE 9.3 RATIO Low 07-23 [facility] Comment on above: Order Comment: 304-2 Performed By: #### L [id number], L100.0500, L500.2500 #### [facility] [address] [place], [address] Calcium [Mass/Vol] 8.7 mg/dL Normal 7.6-11.0 [facility] Comment on above: Order Comment: 304-2 Performed By: #### L [id number], L100.0500, L500.2500 #### [facility] [address] [place], [address] Chloride [Moles/Vol] 98 mmol/L Normal 98-108 [facility] Comment on above: Order Comment: 304-2 Performed By: #### L [id number], L100.0500, L500.2500 #### [facility] [address] [place], [address] CO2 [Moles/Vol] 26.4 mmol/L Normal 21.0-32.0 [facility] Comment on above: Order Comment: 304-2 Performed By: #### L [id number], L100.0500, L500.2500 #### [facility] [address] [place], [address] Creatinine [Mass/Vol] 0.72 mg/dL Normal 0.70-1.20 [facility] Comment on above: Order Comment: 304-2 Performed By: #### L [id number], L100.0500, L500.2500 #### [facility] [address] [place], [address] GAP 13 Normal 5-15 [facility] Comment on above: Order Comment: 304-2 Performed By: #### L [id number], L100.0500, [id number] #### [facility] [address] [place], [address] GFR/1.73 sq M.predicted among non-blacks MDRD (S/P/Bld) [Vol rate/Area] 95 mL/min/{1.73_m2} Normal >60 [facility] Comment on above: Order Comment: 304-2 Result Comment: mL/m in/1.73m2 CKD-EPI Creatinine Equation (2020) Performed By: #### L [id number], L100.0500, L500.2500 #### [facility] [address] [place], [address] Glucose [Mass/Vol] 154 mg/dL High 70-99 [facility] Comment on above: Order Comment: 304-2 Performed By: #### L [id number], L100.0500, L500.2500 #### [facility] [address] [place], [address] Potassium [Moles/Vol] 3.8 mmol/L Normal 3.3-5.1 [facility] Comment on above: Order Comment: 304-2 Result Comment: Hemo lysis present, Results??could be affected. ?? Performed By: #### L [id number], L100.0500, L500.2500 #### [facility] [address] [place], [address] Sodium [Moles/Vol] 138 mmol/L Normal 133-145 [facility] Comment on above: Order Comment: 304-2 Performed By: #### L 501.5200, L100.0500, L500.2500 #### [facility] [address] [place], [address] Urea nitrogen [Mass/Vol] 7 mg/dL Normal 4-19 [facility] Comment on above: Order Comment: 304-2 Performed By: #### L 501.5200, L100.0500, L500.2500 #### [facility] [address] [place], [address] CBC-Complete Blood Cnt No Di ffon 07-26-2025 Erythrocyte distribution width (RBC) [Ratio] 13.2 % Normal 11.6-14.6 [facility] Comment on above: Order Comment: 304-2 Performed By: #### L [id number], L100.0500, L500.2500 #### [facility] [address] [place], [address] Hematocrit (Bld) [Volume fraction] 39.9 % Low 40-54 [facility] Comment on above: Order Comment: 304-2 Performed By: #### L [id number], L100.0500, L500.2500 #### [facility] [address] [place], [address] Hemoglobin (Bld) [Mass/Vol] 13.5 g/dL Normal 13.0-16.5 [facility] Comment on above: Order Comment: 304-2 Performed By: #### L [id number], L100.0500, [id number] #### [facility] [address] [place], [address] MCH (RBC) [Entitic mass] 31.4 pg Normal 27.0-32.0 [facility] Comment on above: Order Comment: 304-2 Performed By: #### L [id number], L100.0500, L500.2500 #### [facility] [address] [place], [address] MCHC (RBC) [Mass/Vol] 33.8 g/dL Normal 32-36 [facility] Comment on above: Order Comment: 304-2 Performed By: #### L 501.5200, L100.0500, L500.2500 #### [facility] [address] [place], [address] MCV (RBC) [Entitic vol] 92.8 fL Normal 80-94 [facility] Comment on above: Order Comment: 304-2 Performed By: #### L [id number], L100.0500, L500.2500 #### [facility] [address] [place], [address] Platelet mean volume (Bld) [Entitic vol] 9.2 fL Normal 6.2-12.0 [facility] Comment on above: Order Comment: 304-2 Performed By: #### L 501.5200, L100.0500, L500.2500 #### [facility] [address] [place], [address] Platelets (Bld) [#/Vol] 206 10*3/uL Normal 150-450 [facility] Comment on above: Order Comment: 304-2 Performed By: #### L [id number], L100.0500, L500.2500 #### [facility] [address] [place], [address] RBC (Bld) [#/Vol] 4.30 10*6/uL Low 4.6-6.2 [facility] Comment on above: Order Comment: 304-2 Performed By: #### L [id number], L100.0500, L500.2500 #### [facility] [address] [place], [address] RDW SD 45.0 fl High 35.1-43.9 [facility] Comment on above: Order Comment: 304-2 Performed By: #### L 501.5200, L100.0500, L500.2500 #### [facility] [address] [place], [address] WBC (Bld) [#/Vol] 6.5 10*3/uL Normal 4.4-11.0 [facility] Comment on above: Order Comment: 304-2 Performed By: #### L 501.5200, L100.0500, L500.2500 #### [facility] [address] [place], [address] Carbon dioxide, total [Moles /volume] in Central venous bloodOrdered By: Avani Eduardo on 07-26-2025 CO2 [Moles/Vol] 26.4 mmol/L 21.0-32.0 [facility] Chloride assayOrdered By: Adriel Eduardo on 07-26-2025 Chloride [Moles/Vol] 98 mmol/L 98-108 [facility] Erythrocyte distribution wid th ratioOrdered By: Avani Eduardo on 07-26-2025 Erythrocyte distribution width (RBC) [Ratio] 13.2 % 11.6-14.6 [facility] Erythrocyte distribution wid th standard deviationOrdered By: Avani Eduardo on 07-26-2025 Erythrocyte distribution width (RBC) [Ratio] 45.0 fl High 35.1-43.9 [facility] Glomerular filtration rate ( GFR) estimation/1.73 sq m using serum, plasma, or whole bOrdered By: Avani Eduardo on 07-26-2025 GFR/1.73 sq M.predicted among non-blacks MDRD (S/P/Bld) [Vol rate/Area] 95 mL/min/{1.73_m2} >60 [facility] Comment on above: mL/min/1.73m2 CKD-EP I Creatinine Equation (2020) Hematocrit Auto (Bld) [Volum e fraction]Ordered By: Avani Eduardo on 07-26-2025 Hematocrit (Bld) [Volume fraction] 39.9 % Low 40-54 [facility] Hemoglobin measurementOrdere d By: Avani Eduardo on 07-26-2025 Hemoglobin (Bld) [Mass/Vol] 13.5 g/dL 13.0-16.5 [facility] MCV (mean corpuscular volume ) determinationOrdered By: Avani Eduardo on 07-26-2025 MCV (RBC) [Entitic vol] 92.8 fL 80-94 [facility] Magnesiumon 07-26-2025 Magnesium [Mass/Vol] 2.1 mg/dL Normal 1.5-2.2 [facility] Comment on above: Order Comment: 304-2 Performed By: #### L 501.1570, L100.0500, L500.2500 #### [facility] [address] [place], [address] Magnesium measurement (mass/ volume)Ordered By: Avani Eduardo on 07-26-2025 Magnesium (Unsp spec) [Mass/Vol] 2.1 mg/dL 1.5-2.2 [facility] Mean corpuscular hemoglobin (MCH) determinationOrdered By: Avani Eduardo on 07-26-2025 MCH (RBC) [Entitic mass] 31.4 pg 27.0-32.0 [facility] Mean corpuscular hemoglobin concentration (MCHC) determinationOrdered By: Avani Eduardo on 07-26-2025 MCHC (RBC) [Mass/Vol] 33.8 g/dL 32-36 [facility] Mean platelet volume determi nationOrdered By: Avani Eduardo on 07-26-2025 Platelet mean volume (Bld) [Entitic vol] 9.2 fL 6.2-12.0 [facility] Platelet countOrdered By: Adriel Eduardo on 07-26-2025 Platelets (Bld) [#/Vol] 206 10*3/uL 150-450 [facility] Potassium measurement (mass/ volume)Ordered By: Avani Eduardo on 07-26-2025 Potassium (Unsp spec) [Mass/Vol] 3.8 mmol/L 3.3-5.1 [facility] Comment on above: Hemolysis present, R esults could be affected. RBC Auto (Bld) [#/Vol]Ordere d By: Avani Eduardo on 07-26-2025 RBC (Bld) [#/Vol] 4.30 10*6/uL Low 4.6-6.2 [facility] Serum creatinine measurement (mass/volume)Ordered By: Avani Eduardo on 07-26-2025 Creatinine [Mass/Vol] 0.72 mg/dL 0.70-1.20 [facility] Serum glucose measurement (m ass/volume)Ordered By: Avani Eduardo on 07-26-2025 Glucose [Mass/Vol] 154 mg/dL High 70-99 [facility] Serum or plasma calcium mnida urement (mass/volume)Ordered By: Avani Eduardo on 07-26-2025 Calcium [Mass/Vol] 8.7 mg/dL 7.6-11.0 [facility] Serum or plasma urea nitroge n measurement (mass/volume)Ordered By: Avani Eduardo on 07-26-2025 Urea nitrogen [Mass/Vol] 7 mg/dL 4-19 [facility] Sodium levelOrdered By: Emmanuel Eduardo on 07-26-2025 Sodium [Moles/Vol] 138 mmol/L 133-145 [facility] TSH DL <= 0.005 mIU/L QnOrde red By: Avani Eduardo on 07-26-2025 TSH Qn 2.850 uIU/mL 0.300-4.20 0 [facility] Thyroid Stim Hormone (TSH)on 07-26-2025 TSH 2.850 uIU/mL Normal 0.300-4.20 0 [facility] Comment on above: Order Comment: 304-2 Performed By: #### L 501.5200, L100.0500, L500.2500 #### [facility] [address] [place], [address] White blood cell (WBC) count Ordered By: Avani Eduardo on 07-26-2025 WBC (Bld) [#/Vol] 6.5 10*3/uL 4.4-11.0 [facility] KEPPRA (LEVETIRACETAM)on KEPPRA 36.6 ug/mL Normal 10.0-40.0 [facility] Comment on above: Order Comment: 304-2 Result Comment: Perf ormed at: [facility] - [facility] [address] [id number] Restaurant Inspector: Jess Bess MD, Phone: [phone] Performed By: #### L 501.5200, L100.0500, L500.2500 #### [facility] [address] [place], [address] LevetiracetamOrdered By: Ethan Eduardo on 06-26-2025 levETIRAcetam [Mass/Vol] 36.6 ug/mL 10.0-40.0 [facility] Comment on above: Performed at: [facility] - [facility] [address] [id number] Director: Jess Bess MD, Phone: [phone] TSH DL <= 0.005 mIU/L QnOrde red By: Avani Eduardo on 06-12-2025 TSH Qn 4.840 uIU/mL High 0.300-4.20 0 [facility] Thyroid Stim Hormone (TSH)on 06-12-2025 TSH 4.840 uIU/mL High 0.300-4.20 0 [facility] Comment on above: Order Comment: 304-2 Performed By: #### L [id number], L100.0500, L500.2500 #### [facility] [address] [place], [address] KEPPRA (LEVETIRACETAM)on KEPPRA 46.4 ug/mL Abnormal 10.0-40.0 [facility] Comment on above: Order Comment: 304-2 Result Comment: Perf ormed at: [facility] [employer] [id number] Restaurant Inspector: Jess Bess MD, Phone: [phone] Performed By: #### L 501.9985 #### [facility] [address] [place], [address] LevetiracetamOrdered By: Ethan Eduardo on 06-05-2025 levETIRAcetam [Mass/Vol] 46.4 ug/mL High 10.0-40.0 [facility] Comment on above: Performed at: [address] [id number] Director: Jess Bess MD, Phone: [phone] KEPPRA (LEVETIRACETAM)on KEPPRA 51.2 ug/mL Abnormal 10.0-40.0 [facility] Comment on above: Order Comment: 304-2 Result Comment: Perf ormed at: [facility] [id number] Restaurant Inspector: Jess Bess MD, Phone: [phone] Performed By: #### L [id number], L100.0500, L500.2500 #### [facility] [address] [place], [place], [address] Hemoglobin A1con 05-29-2025 HbA1c (Bld) [Mass fraction] 7.8 % High <=5.6 [facility] Comment on above: Order Comment: 304-2 Result Comment: Norm al < 5.7 % Prediabetic 5.7 - 6.4 % Diabetic >or= 6.5 % Please note range changes. Performed By: #### L [id number], L100.0500, L500.2500 #### [facility] [address] [place], [place], [id number] Hemoglobin A1c percentageOrd ered By: Avani Eduardo on 05-29-2025 HbA1c (Bld) [Mass fraction] 7.8 % High <5.7 [facility] Comment on above: Normal < 5.7 % Predi abetic 5.7 - 6.4 % Diabetic >or= 6.5 % Please note range changes. LevetiracetamOrdered By: Ethan Eduardo on 05-29-2025 levETIRAcetam [Mass/Vol] 51.2 ug/mL High 10.0-40.0 [facility] Comment on above: Performed at: [address] [id number] Director: Jess Bess MD, Phone: [phone] TSH DL <= 0.005 mIU/L QnOrde red By: Avani Eduardo on 05-29-2025 TSH Qn 6.000 uIU/mL High 0.300-4.20 0 [facility] Thyroid Stim Hormone (TSH)on 05-29-2025 TSH 6.000 uIU/mL High 0.300-4.20 0 [facility] Comment on above: Order Comment: 304-2 Performed By: #### L 501.5200, L100.0500, L500.2500 #### [facility] [address] [place], [place], [id number] Anion gap in Serum or Plasma Ordered By: Avani Eduardo on 05-08-2025 Anion gap [Moles/Vol] 13 mmol/L 5-15 [facility] Automated blood erythrocyte countOrdered By: Avani Eduardo on 05-08-2025 RBC (Bld) [#/Vol] 4.10 10*6/uL Low 4.6-6.2 [facility] Comment on above: Order Comment: 304-2 Performed By: #### L 501.5200, L100.0500, L500.2500 #### [facility] [address] [place], [address] Automated blood hematocrit ( percentage)Ordered By: Avani Eduardo on 05-08-2025 Hematocrit (Bld) [Volume fraction] 39.1 % Low 40-54 [facility] Comment on above: Order Comment: 304-2 Performed By: #### L 501.5200, L100.0500, L500.2500 #### [facility] [address] [place], [address] BUN/creatinine ratioOrdered By: Aavni Eduardo on 05-08-2025 Urea nitrogen/Creatinine [Mass ratio] 16.3 mg/mg 10- [facility] Basic Metabolic Profile (BMP )on 05-08-2025 BUN/CRE 16.3 RATIO Normal - [facility] Comment on above: Order Comment: 304-2 Performed By: #### L [id number], L100.0500, L500.2500 #### [facility] [address] [place], [address] Calcium [Mass/Vol] 9.0 mg/dL Normal 7.6-11.0 [facility] Comment on above: Order Comment: 304-2 Performed By: #### L 501.5200, L100.0500, L500.2500 #### [facility] [address] [place], [address] Chloride [Moles/Vol] 100 mmol/L Normal 98-108 [facility] Comment on above: Order Comment: 304-2 Performed By: #### L 501.5200, L100.0500, L500.2500 #### [facility] [address] [place], [address] CO2 [Moles/Vol] 26.3 mmol/L Normal 21.0-32.0 [facility] Comment on above: Order Comment: 304-2 Performed By: #### L 501.5200, L100.0500, L500.2500 #### [facility] [address] [place], [address] Creatinine [Mass/Vol] 0.57 mg/dL Low 0.70-1.20 [facility] Comment on above: Order Comment: 304-2 Performed By: #### L 501.5200, L100.0500, L500.2500 #### [facility] [address] [place], [address] GAP 13 Normal 5-15 [facility] Comment on above: Order Comment: 304-2 Performed By: #### L [id number], L100.0500, L500.2500 #### [facility] [address] [place], [address] GFR/1.73 sq M.predicted among non-blacks MDRD (S/P/Bld) [Vol rate/Area] 102 mL/min/{1.73_m2} Normal >60 [facility] Comment on above: Order Comment: 304-2 Result Comment: mL/m in/1.73m2 CKD-EPI Creatinine Equation (2020) Performed By: #### L 501.5200, L100.0500, L500.2500 #### [facility] [address] [place], [address] Glucose [Mass/Vol] 140 mg/dL High 70-99 [facility] Comment on above: Order Comment: 304-2 Performed By: #### L 501.5200, L100.0500, L500.2500 #### [facility] [address] [place], [address] Potassium [Moles/Vol] 3.5 mmol/L Normal 3.3-5.1 [facility] Comment on above: Order Comment: 304-2 Performed By: #### L 501.5200, L100.0500, L500.2500 #### [facility] [address] [place], [address] Sodium [Moles/Vol] 139 mmol/L Normal 133-145 [facility] Comment on above: Order Comment: 304-2 Performed By: #### L 501.5200, L100.0500, L500.2500 #### [facility] [address] [place], [address] Urea nitrogen [Mass/Vol] 9 mg/dL Normal 4-19 [facility] Comment on above: Order Comment: 304-2 Performed By: #### L 501.5200, L100.0500, L500.2500 #### [facility] [address] [place], [address] CBC-Complete Blood Cnt No Di ffon 05-08-2025 RDW SD 47.3 fl High 35.1-43.9 [facility] Comment on above: Order Comment: 304-2 Performed By: #### L 501.5200, L100.0500, L500.2500 #### [facility] [address] [place], [address] Carbon dioxide, total [Moles /volume] in Central venous bloodOrdered By: Avani Eduardo on 05-08-2025 CO2 [Moles/Vol] 26.3 mmol/L 21.0-32.0 [facility] Chloride assayOrdered By: Adriel Eduardo on 05-08-2025 Chloride [Moles/Vol] 100 mmol/L 98-108 [facility] Erythrocyte distribution wid th ratioOrdered By: Avani Eduardo on 05-08-2025 Erythrocyte distribution width (RBC) [Ratio] 13.4 % Normal 11.6-14.6 [facility] Comment on above: Order Comment: 304-2 Performed By: #### L [id number], L100.0500, L500.2500 #### [facility] [address] [place], [address] Erythrocyte distribution wid th standard deviationOrdered By: Avani Eduardo on 05-08-2025 Erythrocyte distribution width (RBC) [Ratio] 47.3 fl High 35.1-43.9 [facility] Glomerular filtration rate ( GFR) estimation/1.73 sq m using serum, plasma, or whole bOrdered By: Avani Eduardo on 05-08-2025 GFR/1.73 sq M.predicted among non-blacks MDRD (S/P/Bld) [Vol rate/Area] 102 mL/min/{1.73_m2} >60 [facility] Comment on above: mL/min/1.73m2 CKD-EP I Creatinine Equation (2020) Hemoglobin measurementOrdere d By: Avani Eduardo on 05-08-2025 Hemoglobin (Bld) [Mass/Vol] 13.3 g/dL Normal 13.0-16.5 [facility] Comment on above: Order Comment: 304-2 Performed By: #### L [id number], L100.0500, L500.2500 #### [facility] [address] [place], [address] MCV (mean corpuscular volume ) determinationOrdered By: Avani Eduardo on 05-08-2025 MCV (RBC) [Entitic vol] 95.4 fL High 80-94 [facility] Comment on above: Order Comment: 304-2 Performed By: #### L [id number], L100.0500, L500.2500 #### [facility] [address] [place], [address] Magnesiumon 05-08-2025 Magnesium [Mass/Vol] 2.1 mg/dL Normal 1.5-2.2 [facility] Comment on above: Order Comment: 304-2 Performed By: #### L [id number], L100.0500, L500.2500 #### [facility] [address] [place], [address] Magnesium measurement (mass/ volume)Ordered By: Avani Eduardo on 05-08-2025 Magnesium (Unsp spec) [Mass/Vol] 2.1 mg/dL 1.5-2.2 [facility] Mean corpuscular hemoglobin (MCH) determinationOrdered By: Avani Eduardo on 05-08-2025 MCH (RBC) [Entitic mass] 32.4 pg High 27.0-32.0 [facility] Comment on above: Order Comment: 304-2 Performed By: #### L 501.5200, L100.0500, L500.2500 #### [facility] [address] [place], [place], [id number] (509 Mean corpuscular hemoglobin concentration (MCHC) determinationOrdered By: Avani Eduardo on 05-08-2025 MCHC (RBC) [Mass/Vol] 34.0 g/dL Normal 32-36 [facility] Comment on above: Order Comment: 304-2 Performed By: #### L 501.5200, L100.0500, L500.2500 #### [facility] [address] [place], [place], [id number] (561 Mean platelet volume determi nationOrdered By: Avani Eduardo on 05-08-2025 Platelet mean volume (Bld) [Entitic vol] 9.3 fL Normal 6.2-12.0 [facility] Comment on above: Order Comment: 304-2 Performed By: #### L 501.5200, L100.0500, L500.2500 #### [facility] [address] [place], [address] Platelet countOrdered By: Adriel Eduardo on 05-08-2025 Platelets (Bld) [#/Vol] 197 10*3/uL Normal 150-450 [facility] Comment on above: Order Comment: 304-2 Performed By: #### L 501.5200, L100.0500, L500.2500 #### [facility] [address] [place], [address] Potassium measurement (mass/ volume)Ordered By: Avani Eduardo on 05-08-2025 Potassium (Unsp spec) [Mass/Vol] 3.5 mmol/L 3.3-5.1 [facility] Serum creatinine measurement (mass/volume)Ordered By: Avani Eduardo on 05-08-2025 Creatinine [Mass/Vol] 0.57 mg/dL Low 0.70-1.20 [facility] Serum glucose measurement (m ass/volume)Ordered By: Avani Eduardo on 05-08-2025 Glucose [Mass/Vol] 140 mg/dL High 70-99 [facility] Serum or plasma calcium minda urement (mass/volume)Ordered By: Avani Eduardo on 05-08-2025 Calcium [Mass/Vol] 9.0 mg/dL 7.6-11.0 [facility] Serum or plasma urea nitroge n measurement (mass/volume)Ordered By: Avani Eduardo on 05-08-2025 Urea nitrogen [Mass/Vol] 9 mg/dL 4-19 [facility] Sodium levelOrdered By: Emmanuel Eduardo on 05-08-2025 Sodium [Moles/Vol] 139 mmol/L 133-145 [facility] White blood cell (WBC) count Ordered By: Avani Eduardo on 05-08-2025 WBC (Bld) [#/Vol] 6.9 10*3/uL Normal 4.4-11.0 [facility] Comment on above: Order Comment: 304-2 Performed By: #### L 501.5200, L100.0500, L500.2500 #### [facility] [address] [place], [address] TSH DL <= 0.005 mIU/L QnOrde red By: Avani Eduardo on 05-01-2025 TSH Qn 5.000 uIU/mL High 0.300-4.20 0 [facility] Thyroid Stim Hormone (TSH)on 05-01-2025 TSH 5.000 uIU/mL High 0.300-4.20 0 [facility] Comment on above: Performed By: #### L 501.9985 #### [facility] [address] [place], [address] Anion gap in Serum or Plasma Ordered By: Avani Eduardo on 04-24-2025 Anion gap [Moles/Vol] 12 mmol/L - [facility] BUN/creatinine ratioOrdered By: Avani Eduardo on 04-24-2025 Urea nitrogen/Creatinine [Mass ratio] 20.2 mg/mg High 10- [facility] Basic Metabolic Profile (BMP )on 04-24-2025 BUN/CRE 20.2 RATIO High 07-23 [facility] Comment on above: Order Comment: 304-2 Performed By: #### L 501.5200, L100.0500, L500.2500 #### [facility] [address] [place], [address] Calcium [Mass/Vol] 9.1 mg/dL Normal 7.6-11.0 [facility] Comment on above: Order Comment: 304-2 Performed By: #### L 501.5200, L100.0500, L500.2500 #### [facility] [address] [place], [address] Chloride [Moles/Vol] 96 mmol/L Low 98-108 [facility] Comment on above: Order Comment: 304-2 Performed By: #### L 501.5200, L100.0500, L500.2500 #### [facility] [address] [place], [address] CO2 [Moles/Vol] 29.3 mmol/L Normal 21.0-32.0 [facility] Comment on above: Order Comment: 304-2 Performed By: #### L 501.5200, L100.0500, L500.2500 #### [facility] [address] [place], [address] Creatinine [Mass/Vol] 0.76 mg/dL Normal 0.70-1.20 [facility] Comment on above: Order Comment: 304-2 Performed By: #### L 501.5200, L100.0500, L500.2500 #### [facility] [address] [place], [address] GAP 12 Normal 5-15 [facility] Comment on above: Order Comment: 304-2 Performed By: #### L 501.5200, L100.0500, L500.2500 #### [facility] [address] [place], [address] GFR/1.73 sq M.predicted among non-blacks MDRD (S/P/Bld) [Vol rate/Area] 94 mL/min/{1.73_m2} Normal >60 [facility] Comment on above: Order Comment: 304-2 Result Comment: mL/m in/1.73m2 CKD-EPI Creatinine Equation (2020) Performed By: #### L 501.5200, L100.0500, L500.2500 #### [facility] [address] [place], [address] Glucose [Mass/Vol] 147 mg/dL High 70-99 [facility] Comment on above: Order Comment: 304-2 Performed By: #### L 501.5200, L100.0500, L500.2500 #### [facility] [address] [place], [address] Potassium [Moles/Vol] 3.8 mmol/L Normal 3.3-5.1 [facility] Comment on above: Order Comment: 304-2 Performed By: #### L 501.5200, L100.0500, L500.2500 #### [facility] [address] [place], [address] Sodium [Moles/Vol] 138 mmol/L Normal 133-145 [facility] Comment on above: Order Comment: 304-2 Performed By: #### L 501.5200, L100.0500, L500.2500 #### [facility] [address] [place], [address] Urea nitrogen [Mass/Vol] 15 mg/dL Normal 4-19 [facility] Comment on above: Order Comment: 304-2 Performed By: #### L 501.5200, L100.0500, L500.2500 #### [facility] [address] [place], [address] Carbon dioxide, total [Moles /volume] in Central venous bloodOrdered By: Avani Eduardo on 04-24-2025 CO2 [Moles/Vol] 29.3 mmol/L 21.0-32.0 [facility] Chloride assayOrdered By: Adriel Eduardo on 04-24-2025 Chloride [Moles/Vol] 96 mmol/L Low 98-108 [facility] Glomerular filtration rate ( GFR) estimation/1.73 sq m using serum, plasma, or whole bOrdered By: Avani Eduardo on 04-24-2025 GFR/1.73 sq M.predicted among non-blacks MDRD (S/P/Bld) [Vol rate/Area] 94 mL/min/{1.73_m2} >60 [facility] Comment on above: mL/min/1.73m2 CKD-EP I Creatinine Equation (2020) Magnesiumon 04-24-2025 Magnesium [Mass/Vol] 2.3 mg/dL High 1.5-2.2 [facility] Comment on above: Order Comment: 304-2 Performed By: #### L 501.5200, L100.0500, L500.2500 #### [facility] [address] [place], [address] Magnesium measurement (mass/ volume)Ordered By: Avani Eduardo on 04-24-2025 Magnesium (Unsp spec) [Mass/Vol] 2.3 mg/dL High 1.5-2.2 [facility] Potassium measurement (mass/ volume)Ordered By: Avani Eduardo on 04-24-2025 Potassium (Unsp spec) [Mass/Vol] 3.8 mmol/L 3.3-5.1 [facility] Serum creatinine measurement (mass/volume)Ordered By: Avani Eduardo on 04-24-2025 Creatinine [Mass/Vol] 0.76 mg/dL 0.70-1.20 [facility] Serum glucose measurement (m ass/volume)Ordered By: Avani Eduardo on 04-24-2025 Glucose [Mass/Vol] 147 mg/dL High 70-99 [facility] Serum or plasma calcium minda urement (mass/volume)Ordered By: Avani Eduardo on 04-24-2025 Calcium [Mass/Vol] 9.1 mg/dL 7.6-11.0 [facility] Serum or plasma urea nitroge n measurement (mass/volume)Ordered By: Avani Eduardo on 04-24-2025 Urea nitrogen [Mass/Vol] 15 mg/dL 4-19 [facility] Sodium levelOrdered By: Emmanuel Eduardo on 04-24-2025 Sodium [Moles/Vol] 138 mmol/L 133-145 [facility] Anion gap in Serum or Plasma Ordered By: Avani Eduardo on 04-03-2025 Anion gap [Moles/Vol] 17 mmol/L High 5-15 [facility] BUN/creatinine ratioOrdered By: Avani Eduardo on 04-03-2025 Urea nitrogen/Creatinine [Mass ratio] 14.2 mg/mg 10- [facility] Basic Metabolic Profile (BMP )on 04-03-2025 BUN/CRE 14.2 RATIO Normal 07-23 [facility] Comment on above: Order Comment: 304-2 Performed By: #### L 501.9985 #### [facility] [address] [place], [place] [address] [place], [address] Calcium [Mass/Vol] 9.8 mg/dL Normal 7.6-11.0 [facility] Comment on above: Order Comment: 304-2 Performed By: #### L 501.9985 #### [facility] [address] [place], [address] Chloride [Moles/Vol] 96 mmol/L Low 98-108 [facility] Comment on above: Order Comment: 304-2 Performed By: #### L [id number] #### [facility] [address] [place], [address] CO2 [Moles/Vol] 24.9 mmol/L Normal 21.0-32.0 [facility] Comment on above: Order Comment: 304-2 Performed By: #### L [id number] #### [facility] [address] [place], [address] Creatinine [Mass/Vol] 0.84 mg/dL Normal 0.70-1.20 [facility] Comment on above: Order Comment: 304-2 Performed By: #### L [id number] #### [facility] [address] [place], [address] GAP 17 High 5-15 [facility] Comment on above: Order Comment: 304-2 Performed By: #### L [id number] #### [facility] [address] [place], [address] GFR/1.73 sq M.predicted among non-blacks MDRD (S/P/Bld) [Vol rate/Area] 91 mL/min/{1.73_m2} Normal >60 [facility] Comment on above: Order Comment: 304-2 Result Comment: mL/m in/1.73m2 CKD-EPI Creatinine Equation (2020) Performed By: #### L 501.9985 #### [facility] [address] [place], [address] Glucose [Mass/Vol] 229 mg/dL High 70-99 [facility] Comment on above: Order Comment: 304-2 Performed By: #### L 501.9985 #### [facility] [address] [place], [address] Potassium [Moles/Vol] 4.2 mmol/L Normal 3.3-5.1 [facility] Comment on above: Order Comment: 304-2 Result Comment: Hemo lysis present, Results??could be affected. ?? Performed By: #### L 501.9985 #### [facility] [address] [place], [address] Sodium [Moles/Vol] 137 mmol/L Normal 133-145 [facility] Comment on above: Order Comment: 304-2 Performed By: #### L [id number] #### [facility] [address] [place], [address] Urea nitrogen [Mass/Vol] 12 mg/dL Normal 4-19 [facility] Comment on above: Order Comment: 304-2 Performed By: #### L 501.9985 #### [facility] [address] [place], [address] CBC-Complete Blood Cnt No Di ffon 04-03-2025 Erythrocyte distribution width (RBC) [Ratio] 13.8 % Normal 11.6-14.6 [facility] Comment on above: Order Comment: 304-2 Performed By: #### L 501.5200, L100.0500, L500.2500 #### [facility] [address] [place], [address] Hematocrit (Bld) [Volume fraction] 44.7 % Normal 40-54 [facility] Comment on above: Order Comment: 304-2 Performed By: #### L 501.5200, L100.0500, L500.2500 #### [facility] [address] [place], [address] Hemoglobin (Bld) [Mass/Vol] 15.1 g/dL Normal 13.0-16.5 [facility] Comment on above: Order Comment: 304-2 Performed By: #### L 501.5200, L100.0500, L500.2500 #### [facility] [address] [place], [address] MCH (RBC) [Entitic mass] 32.4 pg High 27.0-32.0 [facility] Comment on above: Order Comment: 304-2 Performed By: #### L 501.5200, L100.0500, L500.2500 #### [facility] [address] [place], [address] MCHC (RBC) [Mass/Vol] 33.8 g/dL Normal 32-36 [facility] Comment on above: Order Comment: 304-2 Performed By: #### L 501.5200, L100.0500, L500.2500 #### [facility] [address] [place], [address] MCV (RBC) [Entitic vol] 95.9 fL High 80-94 [facility] Comment on above: Order Comment: 304-2 Performed By: #### L 501.5200, L100.0500, L500.2500 #### [facility] [address] [place], [address] Platelet mean volume (Bld) [Entitic vol] 9.5 fL Normal 6.2-12.0 [facility] Comment on above: Order Comment: 304-2 Performed By: #### L 501.5200, L100.0500, L500.2500 #### [facility] [address] [place], [address] Platelets (Bld) [#/Vol] 252 10*3/uL Normal 150-450 [facility] Comment on above: Order Comment: 304-2 Performed By: #### L 501.5200, L100.0500, L500.2500 #### [facility] [address] [place], [address] RBC (Bld) [#/Vol] 4.66 10*6/uL Normal 4.6-6.2 [facility] Comment on above: Order Comment: 304-2 Performed By: #### L 501.5200, L100.0500, L500.2500 #### [facility] [address] [place], [address] RDW SD 49.1 fl High 35.1-43.9 [facility] Comment on above: Order Comment: 304-2 Performed By: #### L 501.5200, L100.0500, L500.2500 #### [facility] [address] [place], [address] WBC (Bld) [#/Vol] 7.2 10*3/uL Normal 4.4-11.0 [facility] Comment on above: Order Comment: 304-2 Performed By: #### L 501.5200, L100.0500, L500.2500 #### [facility] [address] [place], [address] Carbon dioxide, total [Moles /volume] in Central venous bloodOrdered By: Avani Eduardo on 04-03-2025 CO2 [Moles/Vol] 24.9 mmol/L 21.0-32.0 [facility] Chloride assayOrdered By: Adrile Eduardo on 04-03-2025 Chloride [Moles/Vol] 96 mmol/L Low 98-108 [facility] Erythrocyte distribution wid th ratioOrdered By: Avani Eduardo on 04-03-2025 Erythrocyte distribution width (RBC) [Ratio] 13.8 % 11.6-14.6 [facility] Erythrocyte distribution wid th standard deviationOrdered By: Avani Eduardo on 04-03-2025 Erythrocyte distribution width (RBC) [Ratio] 49.1 fl High 35.1-43.9 [facility] Glomerular filtration rate ( GFR) estimation/1.73 sq m using serum, plasma, or whole bOrdered By: Avani Eduardo on 04-03-2025 GFR/1.73 sq M.predicted among non-blacks MDRD (S/P/Bld) [Vol rate/Area] 91 mL/min/{1.73_m2} >60 [facility] Comment on above: mL/min/1.73m2 CKD-EP I Creatinine Equation (2020) Hematocrit Auto (Bld) [Volum e fraction]Ordered By: Avani Eduardo on 04-03-2025 Hematocrit (Bld) [Volume fraction] 44.7 % 40-54 [facility] Hemoglobin measurementOrdere d By: Avani Eduardo on 04-03-2025 Hemoglobin (Bld) [Mass/Vol] 15.1 g/dL 13.0-16.5 [facility] MCV (mean corpuscular volume ) determinationOrdered By: Avani Eduardo on 04-03-2025 MCV (RBC) [Entitic vol] 95.9 fL High 80-94 [facility] Magnesiumon 04-03-2025 Magnesium [Mass/Vol] 2.3 mg/dL High 1.5-2.2 [facility] Comment on above: Order Comment: 304-2 Performed By: #### L 501.9985 #### [facility] [place], [address] Magnesium measurement (mass/ volume)Ordered By: Avani Eduardo on 04-03-2025 Magnesium (Unsp spec) [Mass/Vol] 2.3 mg/dL High 1.5-2.2 [facility] Mean corpuscular hemoglobin (MCH) determinationOrdered By: Avani Eduardo on 04-03-2025 MCH (RBC) [Entitic mass] 32.4 pg High 27.0-32.0 [facility] Mean corpuscular hemoglobin concentration (MCHC) determinationOrdered By: Avani Eduardo on 04-03-2025 MCHC (RBC) [Mass/Vol] 33.8 g/dL 32-36 [facility] Mean platelet volume determi nationOrdered By: Avani Eduardo on 04-03-2025 Platelet mean volume (Bld) [Entitic vol] 9.5 fL 6.2-12.0 [facility] Platelet countOrdered By: Adriel Eduardo on 04-03-2025 Platelets (Bld) [#/Vol] 252 10*3/uL 150-450 [facility] Potassium measurement (mass/ volume)Ordered By: Avani Eduardo on 04-03-2025 Potassium (Unsp spec) [Mass/Vol] 4.2 mmol/L 3.3-5.1 [facility] Comment on above: Hemolysis present, R esults could be affected. RBC Auto (Bld) [#/Vol]Ordere d By: Avani Eduardo on 04-03-2025 RBC (Bld) [#/Vol] 4.66 10*6/uL 4.6-6.2 [facility] Serum creatinine measurement (mass/volume)Ordered By: Avani Eduardo on 04-03-2025 Creatinine [Mass/Vol] 0.84 mg/dL 0.70-1.20 [facility] Serum glucose measurement (m ass/volume)Ordered By: Avani Eduardo on 04-03-2025 Glucose [Mass/Vol] 229 mg/dL High 70-99 [facility] Serum or plasma calcium minda urement (mass/volume)Ordered By: Avani Eduardo on 04-03-2025 Calcium [Mass/Vol] 9.8 mg/dL 7.6-11.0 [facility] Serum or plasma urea nitroge n measurement (mass/volume)Ordered By: Avani Eduardo on 04-03-2025 Urea nitrogen [Mass/Vol] 12 mg/dL 4-19 [facility] Sodium levelOrdered By: Emmanuel Eduardo on 04-03-2025 Sodium [Moles/Vol] 137 mmol/L 133-145 [facility] White blood cell (WBC) count Ordered By: Avani Eduardo on 04-03-2025 WBC (Bld) [#/Vol] 7.2 10*3/uL 4.4-11.0 [facility] TSH DL <= 0.005 mIU/L QnOrde red By: Avani Eduardo on 02-28-2025 TSH Qn 4.330 uIU/mL High 0.300-4.20 0 [facility] Thyroid Stim Hormone (TSH)on 02-28-2025 TSH 4.330 uIU/mL High 0.300-4.20 0 [facility] Comment on above: Order Comment: 304-2 Performed By: #### L 501.5200, L100.0500, L500.2500 #### [facility] [address] [place], [address] Arterial study reportOrdered By: Eris Capps on 02-13-2025 Noninvasive arteriosclerosis study report [facility] [address] [place] [address] Lower Ext Art Exam w/o Exercis 02/13/25 0911 MR#: [id number] Acct: [id number] Name: ANJEL ROSS Rep #:[id number] : 1950 74 From: Eris Zepeda Attending Dr: [facility] Stat us: REG CLI Ordering Dr: Kourtney Farrar Date: Location: [facility] Sex: M C Admitted: [...] ~ Date Dictated: 02/13/25910 Date Transcribed: 02/13/251056 Housing Liaison: Signed [facility] Work Phone: Lower Ext Art Exam w/o Exerc jerry 02-13-2025 Lower Ext Art Exam w/o Exercis [facility] [address] [place] [address] Lower Ext Art Exam w/o Exercis 02/13/25910 MR#: [id number] Acct: [id number] Name: ANJEL ROSS Rep #: [id number] : 1950 74 From: Eris Capsp MD Attending Dr: POI [facility] Status: REG CLI Ordering Dr: Kourtney [...] Farrar Referring Physician: Avani Eduardo Performed By: Micheilne Busby RVT 02/13/25 1057 Date Eris Capps MD CC: [facility]; Avani Eduardo MD Date Dictated: 02/13/25910 Date Transcribed: 02/13/251056 Housing Liaison: Signed Normal [facility] Anion gap in Serum or Plasma Ordered By: Avani Eduardo on 02-01-2025 Anion gap [Moles/Vol] 13 mmol/L - [facility] BUN/creatinine ratioOrdered By: Avani Eduardo on 02-01-2025 Urea nitrogen/Creatinine [Mass ratio] 16.2 mg/mg - [facility] Basic Metabolic Profile (BMP )on 02-01-2025 BUN/CRE 16.2 RATIO Normal 07-23 [facility] Comment on above: Order Comment: 304-2 Performed By: #### L 501.5200, L100.0500, L500.2500 #### [facility] [address] [place], [address] Calcium [Mass/Vol] 8.4 mg/dL Normal 7.6-11.0 [facility] Comment on above: Order Comment: 304-2 Performed By: #### L 501.5200, L100.0500, L500.2500 #### [facility] [address] [place], [address] Chloride [Moles/Vol] 98 mmol/L Normal 98-108 [facility] Comment on above: Order Comment: 304-2 Performed By: #### L 501.5200, L100.0500, L500.2500 #### [facility] [address] [place], [address] CO2 [Moles/Vol] 25.5 mmol/L Normal 21.0-32.0 [facility] Comment on above: Order Comment: 304-2 Performed By: #### L 501.5200, L100.0500, L500.2500 #### [facility] [address] [place], [address] Creatinine [Mass/Vol] 0.64 mg/dL Low 0.70-1.20 [facility] Comment on above: Order Comment: 304-2 Performed By: #### L 501.5200, L100.0500, L500.2500 #### [facility] [address] [place], [address] GAP 13 Normal 5-15 [facility] Comment on above: Order Comment: 304-2 Performed By: #### L 501.5200, L100.0500, L500.2500 #### [facility] [address] [place], [address] GFR/1.73 sq M.predicted among non-blacks MDRD (S/P/Bld) [Vol rate/Area] 99 mL/min/{1.73_m2} Normal >60 [facility] Comment on above: Order Comment: 304-2 Result Comment: mL/m in/1.73m2 CKD-EPI Creatinine Equation (2020) Performed By: #### L 501.5200, L100.0500, L500.2500 #### [facility] [address] [place], [address] Glucose [Mass/Vol] 203 mg/dL High 70-99 [facility] Comment on above: Order Comment: 304-2 Performed By: #### L 501.5200, L100.0500, L500.2500 #### [facility] [address] [place], [address] Potassium [Moles/Vol] 3.5 mmol/L Normal 3.3-5.1 [facility] Comment on above: Order Comment: 304-2 Performed By: #### L 501.5200, L100.0500, L500.2500 #### [facility] [address] [place], [address] Sodium [Moles/Vol] 136 mmol/L Normal 133-145 [facility] Comment on above: Order Comment: 304-2 Performed By: #### L 501.5200, L100.0500, L500.2500 #### [facility] [address] [place], [address] Urea nitrogen [Mass/Vol] 10 mg/dL Normal 4-19 [facility] Comment on above: Order Comment: 304-2 Performed By: #### L 501.5200, L100.0500, L500.2500 #### [facility] [address] [place], [address] CBC-Complete Blood Cnt No Di ffon 02-01-2025 Erythrocyte distribution width (RBC) [Ratio] 13.2 % Normal 11.6-14.6 [facility] Comment on above: Order Comment: 304-2 Performed By: #### L 501.5200, L100.0500, L500.2500 #### [facility] [address] [place], [address] Hematocrit (Bld) [Volume fraction] 36.0 % Low 40-54 [facility] Comment on above: Order Comment: 304-2 Performed By: #### L 501.5200, L100.0500, L500.2500 #### [facility] [address] [place], [address] Hemoglobin (Bld) [Mass/Vol] 12.7 g/dL Low 13.0-16.5 [facility] Comment on above: Order Comment: 304-2 Performed By: #### L 501.5200, L100.0500, L500.2500 #### [facility] [address] [place], [address] MCH (RBC) [Entitic mass] 32.6 pg High 27.0-32.0 [facility] Comment on above: Order Comment: 304-2 Performed By: #### L 501.5200, L100.0500, L500.2500 #### [facility] [address] [place], [address] MCHC (RBC) [Mass/Vol] 35.3 g/dL Normal 32-36 [facility] Comment on above: Order Comment: 304-2 Performed By: #### L 501.5200, L100.0500, L500.2500 #### [facility] [address] [place], [address] MCV (RBC) [Entitic vol] 92.3 fL Normal 80-94 [facility] Comment on above: Order Comment: 304-2 Performed By: #### L 501.5200, L100.0500, L500.2500 #### [facility] [address] [place], [address] Platelet mean volume (Bld) [Entitic vol] 8.9 fL Normal 6.2-12.0 [facility] [facility] Comment on above: Order Comment: 304-2 Performed By: #### L 501.5200, L100.0500, L500.2500 #### [facility] [address] [place], [address] Platelets (Bld) [#/Vol] 158 10*3/uL Normal 150-450 [facility] Comment on above: Order Comment: 304-2 Performed By: #### L 501.5200, L100.0500, L500.2500 #### [facility] [address] [place], [address] RBC (Bld) [#/Vol] 3.90 10*6/uL Low 4.6-6.2 [facility] Comment on above: Order Comment: 304-2 Performed By: #### L 501.5200, L100.0500, L500.2500 #### [facility] [address] [place], [address] RDW SD 44.3 fl High 35.1-43.9 [facility] Comment on above: Order Comment: 304-2 Performed By: #### L 501.5200, L100.0500, L500.2500 #### [facility] [address] [place], [address] WBC (Bld) [#/Vol] 6.1 10*3/uL Normal 4.4-11.0 [facility] Comment on above: Order Comment: 304-2 Performed By: #### L 501.5200, L100.0500, L500.2500 #### [facility] [address] [place], [address] Carbon dioxide, total [Moles /volume] in Central venous bloodOrdered By: Avani Eduardo on 02-01-2025 CO2 [Moles/Vol] 25.5 mmol/L 21.0-32.0 [facility] Chloride assayOrdered By: Adriel Eduardo on 02-01-2025 Chloride [Moles/Vol] 98 mmol/L 98-108 [facility] Erythrocyte distribution wid th ratioOrdered By: Avani Eduardo on 02-01-2025 Erythrocyte distribution width (RBC) [Ratio] 13.2 % 11.6-14.6 [facility] Erythrocyte distribution wid th standard deviationOrdered By: Avani Eduardo on 02-01-2025 Erythrocyte distribution width (RBC) [Ratio] 44.3 fl High 35.1-43.9 [facility] Glomerular filtration rate ( GFR) estimation/1.73 sq m using serum, plasma, or whole bOrdered By: Avani Eduardo on 02-01-2025 GFR/1.73 sq M.predicted among non-blacks MDRD (S/P/Bld) [Vol rate/Area] 99 mL/min/{1.73_m2} >60 [facility] Comment on above: mL/min/1.73m2 CKD-EP I Creatinine Equation (2020) Hematocrit Auto (Bld) [Volum e fraction]Ordered By: Avani Eduardo on 02-01-2025 Hematocrit (Bld) [Volume fraction] 36.0 % Low 40-54 [facility] Hemoglobin measurementOrdere d By: Avani Eduardo on 02-01-2025 Hemoglobin (Bld) [Mass/Vol] 12.7 g/dL Low 13.0-16.5 [facility] MCV (mean corpuscular volume ) determinationOrdered By: Avani Eduardo on 02-01-2025 MCV (RBC) [Entitic vol] 92.3 fL 80-94 [facility] Magnesiumon 02-01-2025 Magnesium [Mass/Vol] 2.2 mg/dL Normal 1.5-2.2 [facility] Comment on above: Order Comment: 304-2 Performed By: #### L 501.5200, L100.0500, L500.2500 #### [facility] [address] [place], [place], [id number] Magnesium measurement (mass/ volume)Ordered By: Avani Eduardo on 02-01-2025 Magnesium (Unsp spec) [Mass/Vol] 2.2 mg/dL 1.5-2.2 [facility] Mean corpuscular hemoglobin (MCH) determinationOrdered By: Avani Eduardo on 02-01-2025 MCH (RBC) [Entitic mass] 32.6 pg High 27.0-32.0 [facility] Mean corpuscular hemoglobin concentration (MCHC) determinationOrdered By: Avani Eduardo on 02-01-2025 MCHC (RBC) [Mass/Vol] 35.3 g/dL 32-36 [facility] Mean platelet volume determi nationOrdered By: Avani Eduardo on 02-01-2025 Platelet mean volume (Bld) [Entitic vol] 8.9 fL 6.2-12.0 [facility] Platelet countOrdered By: Adriel Eduardo on 02-01-2025 Platelets (Bld) [#/Vol] 158 10*3/uL 150-450 [facility] Potassium measurement (mass/ volume)Ordered By: Avani Eduardo on 02-01-2025 Potassium (Unsp spec) [Mass/Vol] 3.5 mmol/L 3.3-5.1 [facility] RBC Auto (Bld) [#/Vol]Ordere d By: Avani Eduardo on 02-01-2025 RBC (Bld) [#/Vol] 3.90 10*6/uL Low 4.6-6.2 [facility] Serum creatinine measurement (mass/volume)Ordered By: Avani Eduardo on 02-01-2025 Creatinine [Mass/Vol] 0.64 mg/dL Low 0.70-1.20 [facility] Serum glucose measurement (m ass/volume)Ordered By: Avani Eduardo on 02-01-2025 Glucose [Mass/Vol] 203 mg/dL High 70-99 [facility] Serum or plasma calcium minda urement (mass/volume)Ordered By: Avani Eduardo on 02-01-2025 Calcium [Mass/Vol] 8.4 mg/dL 7.6-11.0 [facility] Serum or plasma urea nitroge n measurement (mass/volume)Ordered By: Avani Eduardo on 02-01-2025 Urea nitrogen [Mass/Vol] 10 mg/dL 4-19 [facility] Sodium levelOrdered By: Emmanuel Eduardo on 02-01-2025 Sodium [Moles/Vol] 136 mmol/L 133-145 [facility] White blood cell (WBC) count Ordered By: Avani Eduardo on 02-01-2025 WBC (Bld) [#/Vol] 6.1 10*3/uL 4.4-11.0 [facility] MR/BMSDontae 01-31-2025 MR/BMS.DENIA [facility] [address] [place] [address] OFFICE VISIT Date of Service: 01/31/25 MR#: [id number] Acct: [id number] Name: ANJEL ROSS Rep #: [id number] 2 : 1950 Provider: [facility] Age/Sex: 74/M Location: [facility] Status: Signed Intake Vital Signs 01/15/23 [...] bilateral lower extremity arterial duplex performed at [facility] reporting atherosclerotic (more content not included)... Normal [facility] Hemoglobin A1con 01-05-2025 HbA1c (Bld) [Mass fraction] 8.1 % Normal <=5.6 [facility] Comment on above: Order Comment: 304-2 Performed By: #### L 501.9985 #### [facility] [address] [place], [place], [address] Hemoglobin A1c percentageOrd ered By: Avani Eduardo on 01-05-2025 HbA1c (Bld) [Mass fraction] 8.1 % >5.7 [facility] Serum or plasma valproate me asurement (mass/volume)Ordered By: Avani Eduardo on 01-03-2025 Valproate [Mass/Vol] 56 ug/mL 50-100 [facility] Comment on above: Valproic Acid concen trations >100 ug/mL are potentially toxic. Valproic Acid (Depakene) Lev chandu 01-03-2025 VALPROIC ACID 56 ug/mL Normal 50-100 [facility] Comment on above: Order Comment: 304.2 Result Comment: Valp roic Acid concentrations >100 ug/mL are potentially toxic. Performed By: #### L 501.8100 #### [facility] [address] [place], [place], [address] Anion gap in Serum or Plasma Ordered By: Avani Eduardo on 01-02-2025 Anion gap [Moles/Vol] 17 mmol/L High 5-15 [facility] Automated blood erythrocyte countOrdered By: Avani Eduardo on 01-02-2025 RBC (Bld) [#/Vol] 4.61 10*6/uL Normal 4.6-6.2 [facility] Comment on above: Order Comment: 304-2 Performed By: #### L 501.9985 #### [facility] [address] [place], [place], [address] Automated blood hematocrit ( percentage)Ordered By: Avani Eduardo on 01-02-2025 Hematocrit (Bld) [Volume fraction] 42.7 % Normal 40-54 [facility] Comment on above: Order Comment: 304-2 Performed By: #### L 501.9985 #### [facility] [address] [place], [address] BUN/creatinine ratioOrdered By: Avani Eduardo on 01-02-2025 Urea nitrogen/Creatinine [Mass ratio] 15.2 mg/mg 10-20 [facility] Basic Metabolic Profile (BMP )on 01-02-2025 BUN/CRE 15.2 RATIO Normal 10-20 [facility] Comment on above: Order Comment: 304-2 Performed By: #### L [id number] #### [facility] [address] [place], [address] GAP 17 High 5-15 [facility] Comment on above: Order Comment: 304-2 Performed By: #### L [id number] #### [facility] [address] [place], [address] CBC-Complete Blood Cnt No Di ffon 01-02-2025 RDW SD 46.2 fl High 35.1-43.9 [facility] Comment on above: Order Comment: 304-2 Performed By: #### L 501.9985 #### [facility] [address] [place], [place], [address] Carbon dioxide, total [Moles /volume] in Central venous bloodOrdered By: Avani Eduardo on 01-02-2025 CO2 [Moles/Vol] 23.4 mmol/L Normal 21.0-32.0 [facility] Comment on above: Order Comment: 304-2 Performed By: #### L 501.9985 #### [facility] [address] [place], [place], [address] Chloride assayOrdered By: Adriel Eduardo on 01-02-2025 Chloride [Moles/Vol] 97 mmol/L Low 98-108 [facility] Comment on above: Order Comment: 304-2 Performed By: #### L 501.9985 #### [facility] [address] [place], [place], [address] Erythrocyte distribution wid th ratioOrdered By: Avani Eduardo on 01-02-2025 Erythrocyte distribution width (RBC) [Ratio] 13.6 % Normal 11.6-14.6 [facility] Comment on above: Order Comment: 304-2 Performed By: #### L [id number] #### [facility] [address] [place], [place], [address] Erythrocyte distribution wid th standard deviationOrdered By: Avani Eduardo on 01-02-2025 Erythrocyte distribution width (RBC) [Entitic vol] 46.2 fL High 35.1-43.9 [facility] Erythrocyte distribution width (RBC) [Ratio] 46.2 fl High 35.1-43.9 [facility] GFR/1.73 sq M.predicted maria elena g non-blacks MDRD (S/P/Bld) [Vol rate/Area]Ordered By: Avani Eduardo on 01-02-2025 Estimated GFR (MDRD) Non-Af Amer 90 >60 [facility] Comment on above: mL/min/1.73m2 CKD-EP I Creatinine Equation (2020) Glomerular filtration rate ( GFR) estimation/1.73 sq m using serum, plasma, or whole bOrdered By: Avani Eduardo on 01-02-2025 GFR/1.73 sq M.predicted among non-blacks MDRD (S/P/Bld) [Vol rate/Area] 90 mL/min/{1.73_m2} Normal >60 [facility] Comment on above: mL/min/1.73m2 CKD-EP I Creatinine Equation (2020) Order Comment: 304-2 Result Comment: mL/m in/1.73m2 CKD-EPI Creatinine Equation (2020) Performed By: #### L 501.9985 #### [facility] [address] [place], [place], [address] Hemoglobin measurementOrdere d By: Avani Eduardo on 01-02-2025 Hemoglobin (Bld) [Mass/Vol] 14.8 g/dL Normal 13.0-16.5 [facility] Comment on above: Order Comment: 304-2 Performed By: #### L [id number] #### [facility] [address] [place], [place], [id number] MCV (mean corpuscular volume ) determinationOrdered By: Avani Eduardo on 01-02-2025 MCV (RBC) [Entitic vol] 92.6 fL Normal 80-94 [facility] Comment on above: Order Comment: 304-2 Performed By: #### L [id number] #### [facility] [address] [place], [place], [address] ([address] Magnesium measurement (mass/ volume)Ordered By: Avani Eduardo on 01-02-2025 Magnesium [Mass/Vol] 2.3 mg/dL High 1.5-2.2 [facility] Comment on above: Order Comment: 304-2 Performed By: #### L [id number] #### [facility] [address] [place], [place], [id number] ([address] Magnesium (Unsp spec) [Mass/Vol] 2.3 mg/dL High 1.5-2.2 [facility] Mean corpuscular hemoglobin (MCH) determinationOrdered By: Avani Eduardo on 01-02-2025 MCH (RBC) [Entitic mass] 32.1 pg High 27.0-32.0 [facility] Comment on above: Order Comment: 304-2 Performed By: #### L [id number] #### [facility] [address] [place], [place], [id number] Mean corpuscular hemoglobin concentration (MCHC) determinationOrdered By: Avani Eduardo on 01-02-2025 MCHC (RBC) [Mass/Vol] 34.7 g/dL Normal 32-36 [facility] Comment on above: Order Comment: 304-2 Performed By: #### L [id number] #### [facility] [address] [place], [address] Mean platelet volume determi nationOrdered By: Avani Eduardo on 01-02-2025 Platelet mean volume (Bld) [Entitic vol] 9.1 fL Normal 6.2-12.0 [facility] Comment on above: Order Comment: 304-2 Performed By: #### L [id number] #### [facility] [address] [place], [address] Platelet countOrdered By: Adriel Eduardo on 01-02-2025 Platelets (Bld) [#/Vol] 193 10*3/uL Normal 150-450 [facility] Comment on above: Order Comment: 304-2 Performed By: #### L [id number] #### [facility] [address] [place], [address] Potassium measurement (mass/ volume)Ordered By: Avani Eduardo on 01-02-2025 Potassium [Moles/Vol] 4.1 mmol/L Normal 3.3-5.1 [facility] Comment on above: Hemolysis present, R esults could be affected. Order Comment: 304-2 Result Comment: Hemo lysis present, Results??could be affected. ?? Performed By: #### L [id number] #### [facility] [address] [place], [address] Potassium (Unsp spec) [Mass/Vol] 4.1 mmol/L 3.3-5.1 [facility] Comment on above: Hemolysis present, R esults could be affected. Serum creatinine measurement (mass/volume)Ordered By: Avani Eduardo on 01-02-2025 Creatinine [Mass/Vol] 0.87 mg/dL Normal 0.70-1.20 [facility] Comment on above: Order Comment: 304-2 Performed By: #### L [id number] #### [facility] [address] [place], [address] Serum glucose measurement (m ass/volume)Ordered By: Avani Eduardo on 01-02-2025 Glucose [Mass/Vol] 223 mg/dL High 70-99 [facility] Comment on above: Order Comment: 304-2 Performed By: #### L [id number] #### [facility] [address] [place], [address] Serum or plasma calcium minda urement (mass/volume)Ordered By: Avani Eduardo on 01-02-2025 Calcium [Mass/Vol] 9.7 mg/dL Normal 7.6-11.0 [facility] Comment on above: Order Comment: 304-2 Performed By: #### L [id number] #### [facility] [address] [place], [address] Serum or plasma urea nitroge n measurement (mass/volume)Ordered By: Avani Eduardo on 01-02-2025 Urea nitrogen [Mass/Vol] 13 mg/dL Normal 4-19 [facility] Comment on above: Order Comment: 304-2 Performed By: #### L [id number] #### [facility] [address] [place], [address] Sodium levelOrdered By: Emmanuel Eduardo on 01-02-2025 Sodium [Moles/Vol] 138 mmol/L Normal 133-145 [facility] Comment on above: Order Comment: 304-2 Performed By: #### L [id number] #### [facility] [address] [place], [address] White blood cell (WBC) count Ordered By: Avani Eduardo on 01-02-2025 WBC (Bld) [#/Vol] 9.9 10*3/uL Normal 4.4-11.0 [facility] Comment on above: Order Comment: 304-2 Performed By: #### L [id number] #### [facility] [address] [place], [place], [address] Calculated very low density lipoprotein (VLDL) cholesterol measurementOrdered By: Avani Eduardo on 12-06-2024 Calculated very low density lipoprotein (VLDL) cholesterol measurement 49 mg/dL High 5-40 [facility] VLDL Cholesterol 49 mg/dL High 5-40 [facility] LDL calc ser/plasOrdered By: Avani Eduardo on 12-06-2024 Cholesterol in LDL [Mass/Vol] 61 mg/dL [facility] Comment on above: Lrqftdzkto=910-824 m g/dL & Higher Umba=368 mg/dL or greater LDL Cholesterol, Calculated 61 mg/dL [facility] Comment on above: Rohagcawhi=093-637 m g/dL & Higher Iofw=268 mg/dL or greater Lipid Profileon 12-06-2024 CHOL:HDL 4.46 Normal [facility] Comment on above: Order Comment: 304-2 Performed By: #### L 501.5200, L100.0500, L500.2500 #### [facility] [address] [place], [place], [address] Cholesterol [Mass/Vol] 141 mg/dL Normal <=200 [facility] Comment on above: Order Comment: 304-2 Result Comment: Chol esterol level, Desirable <200 mg/dL Borderline high cholesterol 200-239 mg/dL High cholesterol >=240 mg/dL Recommendations of the NCEP Adult Treatment Panel for the following risk-cutoff thresholds for the [place] population. Performed By: #### L 501.5200, L100.0500, L500.2500 #### [facility] [address] [place], [address] Cholesterol in HDL [Mass/Vol] 32 mg/dL Low [facility] Comment on above: Order Comment: 304-2 Result Comment: Luzmaria onal Cholesterol Education Program (NCEP) guidelines: <40 mg/dL: Low HDL-cholesterol (major risk factor for CHD) >= 60 mg/dL: High HDL-cholesterol (negative risk factor for CHD) HDL-cholesterol is affected by a number of factors, e.g. smoking, exercise, hormones, sex and age. Performed By: #### L 501.5200, L100.0500, L500.2500 #### [facility] [address] [place], [address] Cholesterol in LDL [Mass/Vol] 61 mg/dL Normal [facility] Comment on above: Order Comment: 304-2 Result Comment: Bord bkeogd=334-229 mg/dL Higher Aeir=802 mg/dL or greater Performed By: #### L 501.5200, L100.0500, L500.2500 #### [facility] [address] [place], [address] Cholesterol in VLDL [Mass/Vol] 49 mg/dL High 5-40 [facility] Comment on above: Order Comment: 304-2 Performed By: #### L 501.5200, L100.0500, L500.2500 #### [facility] [address] [place], [address] Triglyceride [Mass/Vol] 244 mg/dL High [facility] Comment on above: Order Comment: 304-2 Result Comment: The drugs N-Acetylcysteine and Metamizole may falsely depress this assay. Normal range: <150 mg/dL Borderline High: 150-199 mg/dL High: 200-499 mg/dL Very High: >500 mg/dL Performed By: #### L 501.5200, L100.0500, L500.2500 #### [facility] [address] [place], [address] Screening total cholesterol/ high density lipoprotein (HDL) cholesterol ratioOrdered By: Avani Eduardo on 12-06-2024 Cholesterol.total/Chol esterol in HDL [Mass ratio] 4.46 {ratio} [facility] Serum or plasma cholesterol in HDL measurement (mass/volume)Ordered By: Avani Eduardo on 12-06-2024 Cholesterol in HDL [Mass/Vol] 32 mg/dL Low >40 [facility] Comment on above: National Cholesterol Education Program (NCEP) guidelines:<40 mg/dL: Low HDL-cholesterol (major risk factor for CHD)>= 60 mg/dL: High HDL-cholesterol (negative risk factor for CHD)HDL-cholesterol is affected by a number of factors, e.g. smoking, exercise, hormones, sex and age. Serum or plasma cholesterol measurement (mass/volume)Ordered By: Avani Eduardo on 12-06-2024 Cholesterol [Mass/Vol] 141 mg/dL <201 [facility] Comment on above: Cholesterol level, D esirable <200 mg/dLBorderline high cholesterol 200-239 mg/dLHigh cholesterol >=240 mg/dLRecommendations of the NCEP Adult Treatment Panel for the following risk-cutoff thresholds for the [place] population. Triglycerides measurementOrd ered By: Avani Eduardo on 12-06-2024 Triglyceride [Mass/Vol] 244 mg/dL High <199 [facility] Comment on above: The drugs N-Acetylcy steine and Metamizole may falsely depress this assay. Normal range: <150 mg/dLBorderline High: 150-199 mg/dLHigh: 200-499 mg/dLVery High: >500 mg/dL /Bety 11-01-2024 /LINDSAY [facility] Surgery [address] [place], [place] [address] OFFICE VISIT Date of Service: 11/01/24 MR#: [id number] Acct: [id number] Name: ANJEL ROSS Rep #: [id number] 2 : 1950 Provider: [facility] Age/Sex: 74/M Location: [facility] Status: Signed Intake Vital Signs 01/15/23 [...] of servings: 3 HPI HPI HPI: ANJEL CODY, is a 74 M who presents to the office today as referred from [facility]. The only records received from [facility] were a bilateral lower extremity arterial duplex performed at the [facility] (more content not included)... Normal [facility] Basic Metabolic Profile (BMP )on 10-05-2024 BUN/CRE 18.0 RATIO Normal 10-20 [facility] Comment on above: Order Comment: 304-2 Performed By: #### L 500.2500, L501.5200, L501.9520 #### [facility] [address] [place], [address] CA,Total 8.6 mg/dL Normal 8.5-10.1 [facility] Comment on above: Order Comment: 304-2 Performed By: #### L 500.2500, L501.5200, L501.9520 #### [facility] [address] [place], [address] Chloride [Moles/Vol] 102 mmol/L Normal 98-107 [facility] Comment on above: Order Comment: 304-2 Performed By: #### L 500.2500, L501.5200, L501.9520 #### [facility] [address] [place], [address] CO2 [Moles/Vol] 32.0 mmol/L Normal 21.0-32.0 [facility] Comment on above: Order Comment: 304-2 Performed By: #### L 500.2500, L501.5200, L501.9520 #### [facility] [address] [place], [address] Creatinine [Mass/Vol] 0.61 mg/dL Low 0.70-1.30 [facility] Comment on above: Order Comment: 304-2 Result Comment: The validity of the calculated GFR GFRAA in patients over 70 years has not been determined. Clinical correlation is essential. Performed By: #### L 500.2500, L501.5200, L501.9520 #### [facility] [address] [place], [address] EST GFR - AA 166 mL/min Normal >60 [facility] Comment on above: Order Comment: 304-2 Result Comment: Afri can [place] GFR Calc Performed By: #### L 500.2500, L501.5200, L501.9520 #### [facility] [address] [place], [address] GAP 6 Normal 5-15 [facility] Comment on above: Order Comment: 304-2 Performed By: #### L 500.2500, L501.5200, L501.9520 #### [facility] [address] [place], [address] GFR/1.73 sq M.predicted among non-blacks MDRD (S/P/Bld) [Vol rate/Area] 137 mL/min/{1.73_m2} Normal >60 [facility] Comment on above: Order Comment: 304-2 Result Comment: Non- GFR Calc Performed By: #### L 500.2500, L501.5200, L501.9520 #### [facility] [address] [place], [address] Glucose [Mass/Vol] 176 mg/dL High 74-106 [facility] Comment on above: Order Comment: 304-2 Result Comment: Fast ing Glucose result greater than or equal to 126 mg/dL suggests DIABETES MELLITUS per A.D.A. criteria. Performed By: #### L 500.2500, L501.5200, L501.9520 #### [facility] [address] [place], [address] Potassium [Moles/Vol] 3.4 mmol/L Low 3.5-5.1 [facility] Comment on above: Order Comment: 304-2 Performed By: #### L 500.2500, L501.5200, L501.9520 #### [facility] [address] [place], [address] Sodium [Moles/Vol] 140 mmol/L Normal 136-145 [facility] Comment on above: Order Comment: 304-2 Performed By: #### L 500.2500, L501.5200, L501.9520 #### [facility] [address] [place], [address] Urea nitrogen [Mass/Vol] 11 mg/dL Normal 7-18 [facility] Comment on above: Order Comment: 304-2 Performed By: #### L 500.2500, L501.5200, L501.9520 #### [facility] [address] [place], [address] Blood urea nitrogen (BUN)/cr eatinine ratioOrdered By: Avani Eduardo on 10-05-2024 Urea nitrogen/Creatinine [Mass ratio] 18.0 mg/mg 10-20 [facility] Carbon dioxide measurementOr dered By: Avani Eduardo on 10-05-2024 CO2 [Moles/Vol] 32.0 mmol/L 21.0-32.0 [facility] Chloride measurementOrdered By: Avani Eduardo on 10-05-2024 Chloride [Moles/Vol] 102 mmol/L 98-107 [facility] Estimated glomerular filtrat ion rate (GFR) AmericanOrdered By: Avani Eduadro on 10-05-2024 Estimated GFR (MDRD) Amer 166 mL/min >60 [facility] Comment on above: GFR Calc Glomerular filtration rate ( GFR) estimationOrdered By: Avani Eduardo on 10-05-2024 Estimated GFR (MDRD) Non-Af Amer 137 mL/min >60 [facility] Comment on above: Non- GFR Calc Glucose measurementOrdered B y: Avani Eduardo on 10-05-2024 Glucose [Mass/Vol] 176 mg/dL High 74-106 [facility] Comment on above: Fasting Glucose resu lt greater than or equal to 126 mg/dL suggests DIABETES MELLITUS per A.D.A. criteria. Magnesiumon 10-05-2024 Magnesium [Mass/Vol] 2.3 mg/dL Normal 1.6-2.6 [facility] Comment on above: Order Comment: 304-2 Performed By: #### L 500.2500, L501.5200, L501.9520 #### [facility] [address] [place], [address] Magnesium measurementOrdered By: Avani Eduardo on 10-05-2024 Magnesium [Mass/Vol] 2.3 mg/dL 1.6-2.6 [facility] Potassium measurementOrdered By: Avani Eduardo on 10-05-2024 Potassium [Moles/Vol] 3.4 mmol/L Low 3.5-5.1 [facility] Serum anion gap measurementO rdered By: Avani Eduardo on 10-05-2024 Anion gap [Moles/Vol] 6 mmol/L 5-15 [facility] Serum or plasma calcium minda urement (mass/volume)Ordered By: Avani Eduardo on 10-05-2024 Calcium [Mass/Vol] 8.6 mg/dL 8.5-10.1 [facility] Serum or plasma creatinine m easurement (mass/volume)Ordered By: Avani Eduardo on 10-05-2024 Creatinine [Mass/Vol] 0.61 mg/dL Low 0.70-1.30 [facility] Comment on above: The validity of the calculated GFR & GFRAA in patients over 70 years has not been determined. Clinical correlation is essential. Serum or plasma urea nitroge n measurement (mass/volume)Ordered By: Avani Eduardo on 10-05-2024 Urea nitrogen [Mass/Vol] 11 mg/dL 7-18 [facility] Sodium levelOrdered By: Emmanuel Eduardo on 10-05-2024 Sodium [Moles/Vol] 140 mmol/L 136-145 [facility] TSH QnOrdered By: Avani smith on 10-05-2024 Thyroid Stimulating Hormone (TSH) 1.740 uIU/mL 0.358-3.74 0 [facility] Thyroid Stim Hormone (TSH)on 10-05-2024 TSH 1.740 uIU/mL Normal 0.358-3.74 0 [facility] Comment on above: Order Comment: 304-2 Performed By: #### L 500.2500, L501.5200, [id number] #### [facility] [address] [place], [address] Absolute neutrophil countOrd ered By: Avani Eduardo on 09-29-2024 Neutrophils (Bld) [#/Vol] 3.1 10*3/uL 2.0-7.7 [facility] Automated blood erythrocyte countOrdered By: Avani Eduardo on 09-29-2024 RBC (Bld) [#/Vol] 4.23 10*6/uL Low 4.6-6.2 [facility] Comment on above: Performed By: #### L 100.0100, [id number] #### [facility] [address] [place], [address] Automated blood hematocrit ( percentage)Ordered By: Avani Eduardo on 09-29-2024 Hematocrit (Bld) [Volume fraction] 39.4 % Low 40-54 [facility] Comment on above: Performed By: #### L 100.0100, [id number] #### [facility] [address] [place], [address] Automated lymphocyte count a s percentage of total leukocytesOrdered By: Avani Eduardo on 09-29-2024 Lymphocytes/100 WBC (Bld) 38.9 % Normal 19-41 [facility] Comment on above: Performed By: #### L 100.0100, [id number] #### [facility] [address] [place], [address] Basophil percentageOrdered B y: Avani Eduardo on 09-29-2024 Basophils/100 WBC (Bld) 0.8 % Normal 0-1 [facility] Comment on above: Performed By: #### L 100.0100, [id number] #### [facility] [address] [place], [address] C-reactive protein measureme nt by high sensitivity methodOrdered By: Avani Eduardo on 09-29-2024 C-Reactive Protein Extended Range 3.29 mg/L High 0.0-3.0 [facility] Comment on above: C-Reactive Protein ( CRP) provides useful information for thediagnosis, therapy and monitoring of inflammatory processesand associated diseases. For the evaluation of Relative Riskfor Cardiovascular Disease, a High Sensitivity CRP (HSCRP)should be ordered. CBC W/Diff, Automatedon 09-04 Absolute Lymph 2.76 X10 3/uL Normal 0.83-4.51 [facility] Comment on above: Performed By: #### L 100.0100, [id number] #### [facility] [address] [place], [address] Absolute Neut 3.1 X10 3/uL Normal 2.0-7.7 [facility] Comment on above: Performed By: #### L 100.0100, [id number] #### [facility] [address] [place], [address] IG% 0.600 Normal 0.0-0.9 [facility] Comment on above: Result Comment: IG% - Immature Granulocytes (promyelocytes, myelocytes and metamyelocytes) > 1% indicates that a LEFT SHIFT is Present. Performed By: #### L 100.0100, [id number] #### [facility] [address] [place], [address] Nucleated RBC (Bld) [#/Vol] 0 10*3/uL Normal 0-5 [facility] Comment on above: Performed By: #### L 100.0100, [id number] #### [facility] [address] [place], [address] RDW SD 45.4 fl High 35.1-43.9 [facility] Comment on above: Performed By: #### L 100.0100, [id number] #### [facility] [address] [place], [address] CRPon 09-29-2024 C-REACTIVE PROT 3.29 mg/L High 0.0-3.0 [facility] Comment on above: Result Comment: C-Re active Protein (CRP) provides useful information for the diagnosis, therapy and monitoring of inflammatory processes and associated diseases. For the evaluation of Relative Risk for Cardiovascular Disease, a High Sensitivity CRP (HSCRP) should be ordered. Performed By: #### L 100.0100, [id number] #### [facility] [address] [place], [address] Eosinophil percentageOrdered By: Avani Eduardo on 09-29-2024 Eosinophils/100 WBC (Bld) 2.4 % Normal 0-5 [facility] Comment on above: Performed By: #### L 100.0100, [id number] #### [facility] [address] [place], [address] Erythrocyte distribution wid th ratioOrdered By: Avani Eduardo on 09-29-2024 Erythrocyte distribution width (RBC) [Ratio] 13.4 % Normal 11.6-14.6 [facility] Comment on above: Performed By: #### L 100.0100, [id number] #### [facility] [address] [place], [address] Erythrocyte distribution wid th standard deviationOrdered By: Avani Eduardo on 09-29-2024 Erythrocyte distribution width (RBC) [Entitic vol] 45.4 fL High 35.1-43.9 [facility] Hemoglobin measurementOrdere d By: Avani Eduardo on 09-29-2024 Hemoglobin (Bld) [Mass/Vol] 13.1 g/dL Normal 13.0-16.5 [facility] Comment on above: Performed By: #### L 100.0100, [id number] #### [facility] [address] [place], [address] Immature granulocytes/100 WB C Auto (Bld)Ordered By: Avani Eduardo on 09-29-2024 Immature granulocytes/100 WBC (Bld) 0.600 % 0.0-0.9 [facility] Comment on above: IG% - Immature Granu locytes (promyelocytes, myelocytes and metamyelocytes) > 1% indicates that a LEFT SHIFT is Present. Lymphocytes Auto (Unsp spec) [#/Vol]Ordered By: Avani Eduardo on 09-29-2024 Lymphocytes (Bld) [#/Vol] 2.76 10*3/uL 0.83-4.51 [facility] MCV (mean corpuscular volume ) determinationOrdered By: Avani Eduardo on 09-29-2024 MCV (RBC) [Entitic vol] 93.1 fL Normal 80-94 [facility] Comment on above: Performed By: #### L 100.0100, [id number] #### [facility] [address] [place], [address] Mean corpuscular hemoglobin (MCH) determinationOrdered By: Avani Eduardo on 09-29-2024 MCH (RBC) [Entitic mass] 31.0 pg Normal 27.0-32.0 [facility] Comment on above: Performed By: #### L 100.0100, [id number] #### [facility] [address] [place], [address] Mean corpuscular hemoglobin concentration (MCHC) determinationOrdered By: Avani Eduardo on 09-29-2024 MCHC (RBC) [Mass/Vol] 33.2 g/dL Normal 32-36 [facility] Comment on above: Performed By: #### L 100.0100, [id number] #### [facility] [address] [place], [address] Mean platelet volume determi nationOrdered By: Avani Eduardo on 09-29-2024 Platelet mean volume (Bld) [Entitic vol] 9.4 fL Normal 6.2-12.0 [facility] Comment on above: Performed By: #### L 100.0100, [id number] #### [facility] [address] [place], [address] Monocyte percentageOrdered B y: Avani Eduardo on 09-29-2024 Monocytes/100 WBC (Bld) 14.1 % High 0-10 [facility] Comment on above: Performed By: #### L 100.0100, [id number] #### [facility] [address] [place], [address] Neutrophil percentageOrdered By: Avani Eduardo on 09-29-2024 Neutrophils/100 WBC (Bld) 43.2 % Low 47-70 [facility] Comment on above: Performed By: #### L 100.0100, [id number] #### [facility] [address] [place], [address] Nucleated red blood cell per centageOrdered By: Avani Eduardo on 09-29-2024 Nucleated RBC/100 WBC (Bld) [Ratio] 0 % 0-5 [facility] Platelet countOrdered By: Adriel Eduardo on 09-29-2024 Platelets (Bld) [#/Vol] 203 10*3/uL Normal 150-450 [facility] Comment on above: Performed By: #### L 100.0100, [id number] #### [facility] [address] [place], [address] White blood cell (WBC) count Ordered By: Avani Eduardo on 09-29-2024 WBC (Bld) [#/Vol] 7.1 10*3/uL Normal 4.4-11.0 [facility] Comment on above: Performed By: #### L 100.0100, [id number] #### [facility] [address] [place], [address] Basophil percentageOrdered B y: Avani Eduardo on 01-10-2024 Bilirubin [Mass/Vol] 0.50 mg/dL 0.20-1.00 [facility] Comment on above: For patients on eltr ombopag therapy, use of [place] TBIL is not recommended. Chloride [Moles/Vol] 101 mmol/L 98-107 [facility] Glucose [Mass/Vol] 110 mg/dL 74-106 [facility] Comment on above: Fasting Glucose resu lt from 100 to 125 mg/dL suggests IMPAIRED HOMEOSTASIS per A.D.A. criteria. Hemoglobin (Bld) [Mass/Vol] 12.4 g/dL 13.0-16.5 [facility] Potassium [Moles/Vol] 3.1 mmol/L 3.5-5.1 [facility] Protein [Mass/Vol] 6.0 g/dL 6.4-8.2 [facility] Sodium [Moles/Vol] 139 mmol/L 136-145 [facility] WBC (Bld) [#/Vol] 5.9 10*3/uL 4.4-11.0 [facility] Determination of erythrocyte mean corpuscular volume (MCV)Ordered By: Avani Eduardo on 01-10-2024 MCV (RBC) [Entitic vol] 92.2 fL 80-94 [facility] Erythrocyte distribution wid th ratioOrdered By: Avani Eduardo on 01-10-2024 Erythrocyte distribution width (RBC) [Ratio] 13.1 % 11.6-14.6 [facility] Erythrocyte distribution wid th standard deviationOrdered By: Avani Eduardo on 01-10-2024 Erythrocyte distribution width (RBC) [Entitic vol] 44.1 fL 35.1-43.9 [facility] Hematocrit Auto (Bld) [Volum e fraction]Ordered By: Avani Eduardo on 01-10-2024 Hematocrit (Bld) [Volume fraction] 37.7 % 40-54 [facility] - Chemistry and C hemistry - challengeOrdered By: Avani Eduardo on 01-10-2024 Albumin/Globulin [Mass ratio] 0.8 {ratio} 0.9-2.4 [facility] ALP [Catalytic activity/Vol] 55 U/L 45-117 [facility] ALT [Catalytic activity/Vol] 20 U/L 16-61 [facility] CO2 [Moles/Vol] 32.0 mmol/L 21.0-32.0 [facility] Globulin (S) [Mass/Vol] 3.4 g/dL 2.2-4.2 [facility] Magnesium [Mass/Vol] 2.4 mg/dL 1.6-2.6 [facility] Urea nitrogen/Creatinine [Mass ratio] 20.2 mg/mg 10-20 [facility] - Hematology and Cell countsOrdered By: Avani Eduardo on 01-10-2024 MCH (RBC) [Entitic mass] 30.3 pg 27.0-32.0 [facility] MCHC (RBC) [Mass/Vol] 32.9 g/dL 32-36 [facility] Platelet mean volume (Bld) [Entitic vol] 8.9 fL 6.2-12.0 [facility] Platelets (Bld) [#/Vol] 175 10*3/uL 150-450 [facility] No Panel InformationOrdered By: Avani Eduardo on 01-10-2024 Estimated GFR (MDRD) Amer 156 mL/min >60 [facility] Comment on above: GFR Calc Estimated GFR (MDRD) Non-Af Amer 129 mL/min >60 [facility] Comment on above: Non- GFR Calc RBC Auto (Bld) [#/Vol]Ordere d By: Avani Eduardo on 01-10-2024 RBC (Bld) [#/Vol] 4.09 10*6/uL 4.6-6.2 [facility] Serum or plasma calcium minda urement (mass/volume)Ordered By: Avani Eduardo on 01-10-2024 Calcium [Mass/Vol] 8.6 mg/dL 8.5-10.1 [facility] Serum or plasma creatinine m easurement (mass/volume)Ordered By: Avani Eduardo on 01-10-2024 Creatinine [Mass/Vol] 0.64 mg/dL 0.70-1.30 [facility] Comment on above: The validity of the calculated GFR & GFRAA in patients over 70 years has not been determined. Clinical correlation is essential. Serum or plasma urea nitroge n measurement (mass/volume)Ordered By: Avani Eduardo on 01-10-2024 Urea nitrogen [Mass/Vol] 13 mg/dL 7-18 [facility] Thin prep Papanicolaou smear with manual screeningOrdered By: Avani Eduardo on 01-10-2024 Thin prep Papanicolaou smear with manual screening 2.6 g/dL 3.2-5.0 [facility] Thin prep Papanicolaou smear with manual screening 26 U/L 15-37 [facility] Thin prep Papanicolaou smear with manual screening 6 5-15 [facility] Basophil percentageOrdered B y: Avani Eduardo on 01-03-2024 Bilirubin [Mass/Vol] 0.50 mg/dL 0.20-1.00 [facility] Comment on above: For patients on eltr ombopag therapy, use of [place] TBIL is not recommended. Chloride [Moles/Vol] 103 mmol/L 98-107 [facility] Glucose [Mass/Vol] 131 mg/dL 74-106 [facility] Comment on above: Fasting Glucose resu lt greater than or equal to 126 mg/dL suggests DIABETES MELLITUS per A.D.A. criteria. Hemoglobin (Bld) [Mass/Vol] 12.1 g/dL 13.0-16.5 [facility] Potassium [Moles/Vol] 3.2 mmol/L 3.5-5.1 [facility] Protein [Mass/Vol] 5.8 g/dL 6.4-8.2 [facility] Sodium [Moles/Vol] 139 mmol/L 136-145 [facility] WBC (Bld) [#/Vol] 5.4 10*3/uL 4.4-11.0 [facility] Determination of erythrocyte mean corpuscular volume (MCV)Ordered By: Avani Eduardo on 01-03-2024 MCV (RBC) [Entitic vol] 92.0 fL 80-94 [facility] Erythrocyte distribution wid th ratioOrdered By: Avani Eduardo on 01-03-2024 Erythrocyte distribution width (RBC) [Ratio] 13.2 % 11.6-14.6 [facility] Erythrocyte distribution wid th standard deviationOrdered By: Avani Eduardo on 01-03-2024 Erythrocyte distribution width (RBC) [Entitic vol] 45.0 fL 35.1-43.9 [facility] Hematocrit Auto (Bld) [Volum e fraction]Ordered By: Avani Eduardo on 01-03-2024 Hematocrit (Bld) [Volume fraction] 35.8 % 40-54 [facility] - Chemistry and C hemistry - challengeOrdered By: Avani Eduardo on 01-03-2024 Albumin/Globulin [Mass ratio] 0.8 {ratio} 0.9-2.4 [facility] ALP [Catalytic activity/Vol] 52 U/L 45-117 [facility] ALT [Catalytic activity/Vol] 18 U/L 16-61 [facility] CO2 [Moles/Vol] 31.0 mmol/L 21.0-32.0 [facility] Globulin (S) [Mass/Vol] 3.3 g/dL 2.2-4.2 [facility] Magnesium [Mass/Vol] 2.2 mg/dL 1.6-2.6 [facility] Urea nitrogen/Creatinine [Mass ratio] 20.9 mg/mg 10-20 [facility] - Hematology and Cell countsOrdered By: Avani Eduardo on 01-03-2024 MCH (RBC) [Entitic mass] 31.1 pg 27.0-32.0 [facility] MCHC (RBC) [Mass/Vol] 33.8 g/dL 32-36 [facility] Platelet mean volume (Bld) [Entitic vol] 9.3 fL 6.2-12.0 [facility] Platelets (Bld) [#/Vol] 140 10*3/uL 150-450 [facility] No Panel InformationOrdered By: Avani Eduardo on 01-03-2024 Estimated GFR (MDRD) Amer 162 mL/min >60 [facility] Comment on above: GFR Calc Estimated GFR (MDRD) Non-Af Amer 134 mL/min >60 [facility] Comment on above: Non- GFR Calc RBC Auto (Bld) [#/Vol]Ordere d By: Avani Eduardo on 01-03-2024 RBC (Bld) [#/Vol] 3.89 10*6/uL 4.6-6.2 [facility] Serum or plasma calcium minda urement (mass/volume)Ordered By: Avani Eduardo on 01-03-2024 Calcium [Mass/Vol] 8.7 mg/dL 8.5-10.1 [facility] Serum or plasma creatinine m easurement (mass/volume)Ordered By: Avani Eduardo on 01-03-2024 Creatinine [Mass/Vol] 0.62 mg/dL 0.70-1.30 [facility] Comment on above: The validity of the calculated GFR & GFRAA in patients over 70 years has not been determined. Clinical correlation is essential. Serum or plasma urea nitroge n measurement (mass/volume)Ordered By: Avani Eduardo on 01-03-2024 Urea nitrogen [Mass/Vol] 13 mg/dL 7-18 [facility] Thin prep Papanicolaou smear with manual screeningOrdered By: Avanigómez Eduardo on 01-03-2024 Thin prep Papanicolaou smear with manual screening 2.5 g/dL 3.2-5.0 [facility] Thin prep Papanicolaou smear with manual screening 22 U/L 15-37 [facility] Thin prep Papanicolaou smear with manual screening 5 5-15 [facility] Serum or plasma thyroid stim ulating hormone (TSH) measurement (units/volume)Ordered By: Avani Eduardo on 12-15-2023 TSH Qn 8.74 uIU/mL 0.358-3.74 [facility] Basophil percentageOrdered B y: Avani Eduardo on 11-04-2023 Bilirubin [Mass/Vol] 0.40 mg/dL 0.20-1.00 [facility] Comment on above: For patients on eltr ombopag therapy, use of [place] TBIL is not recommended. Protein [Mass/Vol] 6.9 g/dL 6.4-8.2 [facility] Direct bilirubinOrdered By: Avani Eduardo on 02-01-2024 Bilirubin.direct [Mass/Vol] 0.13 mg/dL 0.00-0.30 [facility] - Chemistry and C hemistry - challengeOrdered By: Avani Eduardo on 11-04-2023 ALP [Catalytic activity/Vol] 66 U/L 45-117 [facility] ALT [Catalytic activity/Vol] 28 U/L 16-61 [facility] Globulin (S) [Mass/Vol] 4.0 g/dL 2.2-4.2 [facility] Thin prep Papanicolaou smear with manual screeningOrdered By: Avanigómez Eduardo on 11-04-2023 Thin prep Papanicolaou smear with manual screening 2.9 g/dL 3.2-5.0 [facility] Thin prep Papanicolaou smear with manual screening 22 U/L 15-37 [facility] Absolute lymphocyte countOrd ered By: Avanigómez Eduardo on 10-20-2023 Lymphocytes Auto (Unsp spec) [#/Vol] 2.41 10*3/uL 0.83-4.51 [facility] Automated lymphocyte count a s percentage of total leukocytesOrdered By: Avanigómez Eduardo on 10-20-2023 Lymphocytes/100 WBC Auto (Unsp spec) 34.2 % 19-41 [facility] Basophil percentageOrdered B y: Avani Eduardo on 10-20-2023 Basophils/100 WBC (Bld) 0.6 % 0-1 [facility] Chloride [Moles/Vol] 101 mmol/L 98-107 [facility] Eosinophils/100 WBC (Bld) 2.0 % 0-5 [facility] Glucose [Mass/Vol] 142 mg/dL 74-106 [facility] Comment on above: Fasting Glucose resu lt greater than or equal to 126 mg/dL suggests DIABETES MELLITUS per A.D.A. criteria. Hemoglobin (Bld) [Mass/Vol] 14.2 g/dL 13.0-16.5 [facility] Monocytes/100 WBC (Bld) 12.8 % 0-10 [facility] Neutrophils (Bld) [#/Vol] 3.5 10*3/uL 2.0-7.7 [facility] Neutrophils/100 WBC (Bld) 49.5 % 47-70 [facility] Potassium [Moles/Vol] 3.6 mmol/L 3.5-5.1 [facility] Sodium [Moles/Vol] 139 mmol/L 136-145 [facility] WBC (Bld) [#/Vol] 7.0 10*3/uL 4.4-11.0 [facility] Determination of erythrocyte mean corpuscular volume (MCV)Ordered By: Avani Eduardo on 10-20-2023 MCV (RBC) [Entitic vol] 91.9 fL 80-94 [facility] Erythrocyte distribution wid th ratioOrdered By: Avanigómez Eduardo on 10-20-2023 Erythrocyte distribution width (RBC) [Ratio] 13.2 % 11.6-14.6 [facility] Erythrocyte distribution wid th standard deviationOrdered By: Avanigómez Eduardo on 10-20-2023 Erythrocyte distribution width (RBC) [Entitic vol] 44.6 fL 35.1-43.9 [facility] Hematocrit Auto (Bld) [Volum e fraction]Ordered By: Avani Eduardo on 10-20-2023 Hematocrit (Bld) [Volume fraction] 43.0 % 40-54 [facility] Immature granulocytes/100 WB C Auto (Bld)Ordered By: Avani Eduardo on 10-20-2023 Immature granulocytes/100 WBC (Bld) 0.900 % 0.0-0.9 [facility] Comment on above: IG% - Immature Granu locytes (promyelocytes, myelocytes and metamyelocytes) > 1% indicates that a LEFT SHIFT is Present. Laboratory - Chemistry and C hemistry - challengeOrdered By: Avani Eduardo on 10-20-2023 CO2 [Moles/Vol] 33.0 mmol/L 21.0-32.0 [facility] Urea nitrogen/Creatinine [Mass ratio] 16.5 mg/mg 10-20 [facility] - Hematology and Cell countsOrdered By: Avani Eduardo on 10-20-2023 MCH (RBC) [Entitic mass] 30.3 pg 27.0-32.0 [facility] MCHC (RBC) [Mass/Vol] 33.0 g/dL 32-36 [facility] Nucleated RBC/100 WBC (Bld) [Ratio] 0 % 0-5 [facility] Platelets (Bld) [#/Vol] 197 10*3/uL 150-450 [facility] No Panel InformationOrdered By: Avani Edaurdo on 10-20-2023 Estimated GFR (MDRD) Amer 114 mL/min >60 [facility] Comment on above: GFR Calc Estimated GFR (MDRD) Non-Af Amer 94 mL/min >60 [facility] Comment on above: Non- GFR Calc Platelet mean volume Riaz-Ec ker (Bld) [Entitic vol]Ordered By: Avani Eduardo on 10-20-2023 Platelet mean volume (Bld) [Entitic vol] 8.6 fL 6.2-12.0 [facility] RBC Auto (Bld) [#/Vol]Ordere d By: Avani Eduardo on 10-20-2023 RBC (Bld) [#/Vol] 4.68 10*6/uL 4.6-6.2 [facility] Serum or plasma calcium minda urement (mass/volume)Ordered By: Avani Eduardo on 10-20-2023 Calcium [Mass/Vol] 9.4 mg/dL 8.5-10.1 [facility] Serum or plasma creatinine m easurement (mass/volume)Ordered By: Avani Eduardo on 10-20-2023 Creatinine [Mass/Vol] 0.85 mg/dL 0.70-1.30 [facility] Comment on above: The validity of the calculated GFR & GFRAA in patients over 70 years has not been determined. Clinical correlation is essential. Serum or plasma urea nitroge n measurement (mass/volume)Ordered By: Avani Eduardo on 10-20-2023 Urea nitrogen [Mass/Vol] 14 mg/dL 7-18 [facility] Thin prep Papanicolaou smear with manual screeningOrdered By: Avani Eduardo on 10-20-2023 Thin prep Papanicolaou smear with manual screening 5 5-15 [facility] Laboratory - Chemistry and C hemistry - challengeOrdered By: Avani Eduardo on 10-11-2023 T4 [Mass/Vol] 10.8 ug/dL 4.5-12.1 [facility] No Panel InformationOrdered By: Avani Eduardo on 10-11-2023 Thyroid Stimulating Hormone (TSH) 5.65 uIU/mL 0.358-3.74 [facility] Basophil percentageOrdered B y: Avani Eduardo on 10-05-2023 Chloride [Moles/Vol] 105 mmol/L 98-107 [facility] Glucose [Mass/Vol] 95 mg/dL 74-106 [facility] Potassium [Moles/Vol] 3.7 mmol/L 3.5-5.1 [facility] Comment on above: Slight Hemolysis, Re sult may be falsely increased. Sodium [Moles/Vol] 139 mmol/L 136-145 [facility] Laboratory - Chemistry and C hemistry - challengeOrdered By: Avani Eduardo on 10-05-2023 CO2 [Moles/Vol] 30.0 mmol/L 21.0-32.0 [facility] Magnesium [Mass/Vol] 2.5 mg/dL 1.6-2.6 [facility] Comment on above: Slight Hemolysis, Re sult may be falsely increased. Urea nitrogen/Creatinine [Mass ratio] 16.3 mg/mg 10-20 [facility] No Panel InformationOrdered By: Avani Eduardo on 10-05-2023 Estimated GFR (MDRD) Amer 134 mL/min >60 [facility] Comment on above: GFR Calc Estimated GFR (MDRD) Non-Af Amer 111 mL/min >60 [facility] Comment on above: Non- GFR Calc Serum or plasma calcium minda urement (mass/volume)Ordered By: Avani Eduardo on 10-05-2023 Calcium [Mass/Vol] 8.0 mg/dL 8.5-10.1 [facility] Serum or plasma creatinine m easurement (mass/volume)Ordered By: Avani Eduardo on 10-05-2023 Creatinine [Mass/Vol] 0.74 mg/dL 0.70-1.30 [facility] Comment on above: The validity of the calculated GFR & GFRAA in patients over 70 years has not been determined. Clinical correlation is essential. Serum or plasma urea nitroge n measurement (mass/volume)Ordered By: Avani Eduardo on 10-05-2023 Urea nitrogen [Mass/Vol] 12 mg/dL 7-18 [facility] Thin prep Papanicolaou smear with manual screeningOrdered By: Avani Eduardo on 10-05-2023 Thin prep Papanicolaou smear with manual screening 4 5-15 [facility] Absolute lymphocyte countOrd ered By: Avani Eduardo on 09-22-2023 Lymphocytes Auto (Unsp spec) [#/Vol] 2.51 10*3/uL 0.83-4.51 [facility] Basophil percentageOrdered B y: Avani Eduardo on 09-22-2023 Basophils/100 WBC (Bld) 0.5 % 0-1 [facility] Chloride [Moles/Vol] 107 mmol/L 98-107 [facility] Eosinophils/100 WBC (Bld) 1.7 % 0-5 [facility] Glucose [Mass/Vol] 123 mg/dL 74-106 [facility] Comment on above: Fasting Glucose resu lt from 100 to 125 mg/dL suggests IMPAIRED HOMEOSTASIS per A.D.A. criteria. Neutrophils (Bld) [#/Vol] 2.3 10*3/uL 2.0-7.7 [facility] Neutrophils/100 WBC (Bld) 38.7 % 47-70 [facility] Potassium [Moles/Vol] 3.7 mmol/L 3.5-5.1 [facility] Sodium [Moles/Vol] 143 mmol/L 136-145 [facility] WBC (Bld) [#/Vol] 5.8 10*3/uL 4.4-11.0 [facility] Blood erythrocytes count (nu mber/volume)Ordered By: Avani Eduardo on 09-22-2023 RBC (Bld) [#/Vol] 4.08 10*6/uL 4.6-6.2 [facility] Blood hemoglobin measurement (mass/volume)Ordered By: Avani Eduardo on 09-22-2023 Hemoglobin (Bld) [Mass/Vol] 12.6 g/dL 13.0-16.5 [facility] Blood lymphocytes/100 leukoc ytesOrdered By: Avani Eduardo on 09-22-2023 Lymphocytes/100 WBC (Bld) 43.1 % 19-41 [facility] Blood monocytes/100 leukocyt esOrdered By: Avani Eduardo on 09-22-2023 Monocytes/100 WBC (Bld) 14.8 % 0-10 [facility] Blood platelet mean volumeOr dered By: Avani Eduardo on 09-22-2023 Platelet mean volume (Bld) [Entitic vol] 8.8 fL 6.2-12.0 [facility] Determination of erythrocyte mean corpuscular volume (MCV)Ordered By: Avani Eduardo on 09-22-2023 MCV (RBC) [Entitic vol] 93.6 fL 80-94 [facility] Hematocrit Auto (Bld) [Volum e fraction]Ordered By: Avani Eduardo on 09-22-2023 Hematocrit (Bld) [Volume fraction] 38.2 % 40-54 [facility] Laboratory - Chemistry and C hemistry - challengeOrdered By: Avani Eduardo on 09-22-2023 CO2 [Moles/Vol] 34.0 mmol/L 21.0-32.0 [facility] Natriuretic peptide B (Bld) [Mass/Vol] 7.4 pg/mL 0-100 [facility] Urea nitrogen/Creatinine [Mass ratio] 24.9 mg/mg 10-20 [facility] Laboratory - Hematology and Cell countsOrdered By: Avani Eduardo on 09-22-2023 Erythrocyte distribution width (RBC) [Entitic vol] 45.8 fL 35.1-43.9 [facility] Erythrocyte distribution width (RBC) [Ratio] 13.3 % 11.6-14.6 [facility] Immature granulocytes/100 WBC (Bld) 1.200 % 0.0-0.9 [facility] Comment on above: IG% - Immature Granu locytes (promyelocytes, myelocytes and metamyelocytes) > 1% indicates that a LEFT SHIFT is Present. MCH (RBC) [Entitic mass] 30.9 pg 27.0-32.0 [facility] Nucleated RBC/100 WBC (Bld) [Ratio] 0 % 0-5 [facility] MCHC Auto (RBC) [Mass/Vol]Or dered By: Avani Eduardo on 09-22-2023 MCHC (RBC) [Mass/Vol] 33.0 g/dL 32-36 [facility] No Panel InformationOrdered By: Avani Eduardo on 09-22-2023 Estimated GFR (MDRD) Amer 146 mL/min >60 [facility] Comment on above: GFR Calc Estimated GFR (MDRD) Non-Af Amer 121 mL/min >60 [facility] Comment on above: Non- GFR Calc Platelets bldOrdered By: Ethan Eduardo on 09-22-2023 Platelets (Bld) [#/Vol] 170 10*3/uL 150-450 [facility] Serum or plasma calcium minda urement (mass/volume)Ordered By: Avani Eduardo on 09-22-2023 Calcium [Mass/Vol] 8.8 mg/dL 8.5-10.1 [facility] Serum or plasma creatinine m easurement (mass/volume)Ordered By: Avani Eduardo on 09-22-2023 Creatinine [Mass/Vol] 0.68 mg/dL 0.70-1.30 [facility] Comment on above: The validity of the calculated GFR & GFRAA in patients over 70 years has not been determined. Clinical correlation is essential. Serum or plasma urea nitroge n measurement (mass/volume)Ordered By: Avani Eduardo on 09-22-2023 Urea nitrogen [Mass/Vol] 17 mg/dL 7-18 [facility] Thin prep Papanicolaou smear with manual screeningOrdered By: Avani Eduardo on 09-22-2023 Thin prep Papanicolaou smear with manual screening 2 5-15 [facility] Basophil percentageOrdered B y: Avani Eduardo on 09-13-2023 Chloride [Moles/Vol] 105 mmol/L 98-107 [facility] Glucose [Mass/Vol] 100 mg/dL 74-106 [facility] Comment on above: Fasting Glucose resu lt from 100 to 125 mg/dL suggests IMPAIRED HOMEOSTASIS per A.D.A. criteria. Potassium [Moles/Vol] 4.3 mmol/L 3.5-5.1 [facility] Sodium [Moles/Vol] 139 mmol/L 136-145 [facility] Laboratory - Chemistry and C hemistry - challengeOrdered By: Avani Eduardo on 09-13-2023 CO2 [Moles/Vol] 28.0 mmol/L 21.0-32.0 [facility] Urea nitrogen/Creatinine [Mass ratio] 21.8 mg/mg 10-20 [facility] No Panel InformationOrdered By: Avani Eduardo on 09-13-2023 Estimated GFR (MDRD) Amer 157 mL/min >60 [facility] Comment on above: GFR Calc Estimated GFR (MDRD) Non-Af Amer 130 mL/min >60 [facility] Comment on above: Non- GFR Calc Serum or plasma calcium minda urement (mass/volume)Ordered By: Avani Eduardo on 09-13-2023 Calcium [Mass/Vol] 8.4 mg/dL 8.5-10.1 [facility] Serum or plasma creatinine m easurement (mass/volume)Ordered By: Avani Eduardo on 09-13-2023 Creatinine [Mass/Vol] 0.64 mg/dL 0.70-1.30 [facility] Comment on above: The validity of the calculated GFR & GFRAA in patients over 70 years has not been determined. Clinical correlation is essential. Serum or plasma urea nitroge n measurement (mass/volume)Ordered By: Avani Eduardo on 09-13-2023 Urea nitrogen [Mass/Vol] 14 mg/dL 7-18 [facility] Thin prep Papanicolaou smear with manual screeningOrdered By: Avani Eduardo on 09-13-2023 Thin prep Papanicolaou smear with manual screening 6 5-15 [facility] No Panel InformationOrdered By: Avani Eduardo on 08-30-2023 Levetiracetam (Keppra) Level 25.0 ug/mL 10.0-40.0 [facility] Comment on above: Performed at: [address] [id number] Director: Jess Bess MD, Phone: [phone] Absolute lymphocyte countOrd ered By: Avani Eduardo on 08-23-2023 Lymphocytes Auto (Unsp spec) [#/Vol] 1.90 10*3/uL 0.83-4.51 [facility] Basophil percentageOrdered B y: Avani Eduardo on 08-23-2023 Basophils/100 WBC (Bld) 0.7 % 0-1 [facility] Chloride [Moles/Vol] 104 mmol/L 98-107 [facility] Eosinophils/100 WBC (Bld) 2.2 % 0-5 [facility] Glucose [Mass/Vol] 122 mg/dL 74-106 [facility] Comment on above: Fasting Glucose resu lt from 100 to 125 mg/dL suggests IMPAIRED HOMEOSTASIS per A.D.A. criteria. Neutrophils (Bld) [#/Vol] 2.5 10*3/uL 2.0-7.7 [facility] Neutrophils/100 WBC (Bld) 45.6 % 47-70 [facility] Potassium [Moles/Vol] 3.7 mmol/L 3.5-5.1 [facility] Sodium [Moles/Vol] 142 mmol/L 136-145 [facility] WBC (Bld) [#/Vol] 5.6 10*3/uL 4.4-11.0 [facility] Blood erythrocytes count (nu mber/volume)Ordered By: Avani Eduardo on 08-23-2023 RBC (Bld) [#/Vol] 4.12 10*6/uL 4.6-6.2 [facility] Blood hemoglobin measurement (mass/volume)Ordered By: Avani Eduardo on 08-23-2023 Hemoglobin (Bld) [Mass/Vol] 12.3 g/dL 13.0-16.5 [facility] Blood lymphocytes/100 leukoc ytesOrdered By: Avani Eduardo on 08-23-2023 Lymphocytes/100 WBC (Bld) 34.2 % 19-41 [facility] Blood monocytes/100 leukocyt esOrdered By: Avani Eduardo on 08-23-2023 Monocytes/100 WBC (Bld) 16.0 % 0-10 [facility] Blood platelet mean volumeOr dered By: Avani Eduardo on 08-23-2023 Platelet mean volume (Bld) [Entitic vol] 9.3 fL 6.2-12.0 [facility] Determination of erythrocyte mean corpuscular volume (MCV)Ordered By: Avani Eduardo on 08-23-2023 MCV (RBC) [Entitic vol] 93.7 fL 80-94 [facility] Hematocrit Auto (Bld) [Volum e fraction]Ordered By: Avani Eduardo on 08-23-2023 Hematocrit (Bld) [Volume fraction] 38.6 % 40-54 [facility] Laboratory - Chemistry and C hemistry - challengeOrdered By: Avani Eduardo on 08-23-2023 CO2 [Moles/Vol] 31.0 mmol/L 21.0-32.0 [facility] Magnesium [Mass/Vol] 2.6 mg/dL 1.6-2.6 [facility] Urea nitrogen/Creatinine [Mass ratio] 26.0 mg/mg 10-20 [facility] Laboratory - Hematology and Cell countsOrdered By: Avani Eduardo on 08-23-2023 Erythrocyte distribution width (RBC) [Entitic vol] 46.4 fL 35.1-43.9 [facility] Erythrocyte distribution width (RBC) [Ratio] 13.4 % 11.6-14.6 [facility] Immature granulocytes/100 WBC (Bld) 1.300 % 0.0-0.9 [facility] Comment on above: IG% - Immature Granu locytes (promyelocytes, myelocytes and metamyelocytes) > 1% indicates that a LEFT SHIFT is Present. MCH (RBC) [Entitic mass] 29.9 pg 27.0-32.0 [facility] Nucleated RBC/100 WBC (Bld) [Ratio] 0 % 0-5 [facility] MCHC Auto (RBC) [Mass/Vol]Or dered By: Avani Eduardo on 08-23-2023 MCHC (RBC) [Mass/Vol] 31.9 g/dL 32-36 [facility] No Panel InformationOrdered By: Avani Eduardo on 08-23-2023 Estimated GFR (MDRD) Amer 144 mL/min >60 [facility] Comment on above: GFR Calc Estimated GFR (MDRD) Non-Af Amer 119 mL/min >60 [facility] Comment on above: Non- GFR Calc Levetiracetam (Keppra) Level 51.4 ug/mL 10.0-40.0 [facility] Comment on above: Performed at: - [address] [id number] Director: Jess Bess MD, Phone: [phone] Valproic Acid (Depakene) Level 60 ug/mL 50-100 [facility] Platelets bldOrdered By: Ethan Eduardo on 08-23-2023 Platelets (Bld) [#/Vol] 174 10*3/uL 150-450 [facility] Serum or plasma calcium minda urement (mass/volume)Ordered By: Avani Eduardo on 08-23-2023 Calcium [Mass/Vol] 8.5 mg/dL 8.5-10.1 [facility] Serum or plasma creatinine m easurement (mass/volume)Ordered By: Avani Eduardo on 08-23-2023 Creatinine [Mass/Vol] 0.69 mg/dL 0.70-1.30 [facility] Comment on above: The validity of the calculated GFR & GFRAA in patients over 70 years has not been determined. Clinical correlation is essential. Serum or plasma urea nitroge n measurement (mass/volume)Ordered By: Avani Eduardo on 08-23-2023 Urea nitrogen [Mass/Vol] 18 mg/dL 7-18 [facility] Serum or plasma uric acid me asurement (mass/volume)Ordered By: Avani Eduardo on 08-23-2023 Urate [Mass/Vol] 5.6 mg/dL 3.5-7.2 [facility] Comment on above: The drugs N-Acetylcy steine and Metamizole may falsely depress this assay. Thin prep Papanicolaou smear with manual screeningOrdered By: Avani Eduardo on 08-23-2023 Thin prep Papanicolaou smear with manual screening 7 5-15 [facility] Basophil percentageOrdered B y: Avani Eduardo on 05-24-2023 Cholesterol [Mass/Vol] 143 mg/dL <200 [facility] Comment on above: <200 mg/dL Desirable 200-240 mg/dL Borderline >240 mg/dL High Risk Triglyceride [Mass/Vol] 102 mg/dL <199 [facility] Comment on above: The drugs N-Acetylcy steine and Metamizole may falsely depress this assay.Serum Triglycerides Reference Interval Normal <150 mg/dL Borderline high 150 - 199 mg/dL High 200 - 499 mg/dL Very High > or = 500 mg/dL Serum or plasma cholesterol in HDL measurement (mass/volume)Ordered By: Avani Eduardo on 05-24-2023 Cholesterol in HDL [Mass/Vol] 54 mg/dL >40 [facility] Comment on above: The drugs N-Acetylcy steine and Metamizole may falsely depress this assay. Reference Range HDL <40 mg/dL Low HDL Cholesterol HDL >or= 60 mg/dL High HDL Cholesterol Serum or plasma cholesterol in VLDL measurement (mass/volume)Ordered By: Avani Eduardo on 05-24-2023 Cholesterol in VLDL [Mass/Vol] 20 mg/dL 5-40 [facility] Serum or plasma low density lipoprotein (LDL) cholesterol measurement (mass/volume)Ordered By: Avani Eduardo on 05-24-2023 Cholesterol in LDL [Mass/Vol] 69 mg/dL 0-130 [facility] Basophil percentageOrdered B y: Avani Eduardo on 02-16-2023 Chloride [Moles/Vol] 106 mmol/L 98-107 [facility] Glucose [Mass/Vol] 61 mg/dL 74-106 [facility] Potassium [Moles/Vol] 4.1 mmol/L 3.5-5.1 [facility] Sodium [Moles/Vol] 142 mmol/L 136-145 [facility] WBC (Bld) [#/Vol] 5.5 10*3/uL 4.4-11.0 [facility] Blood erythrocytes count (nu mber/volume)Ordered By: Avani Eduardo on 02-16-2023 RBC (Bld) [#/Vol] 3.87 10*6/uL 4.6-6.2 [facility] Blood hemoglobin measurement (mass/volume)Ordered By: Avani Eduardo on 02-16-2023 Hemoglobin (Bld) [Mass/Vol] 12.7 g/dL 13.0-16.5 [facility] Blood platelet mean volumeOr dered By: Avani Eduardo on 02-16-2023 Platelet mean volume (Bld) [Entitic vol] 9.0 fL 6.2-12.0 [facility] Determination of erythrocyte mean corpuscular volume (MCV)Ordered By: Avani Eduardo on 02-16-2023 MCV (RBC) [Entitic vol] 104.4 fL 80-94 [facility] Hematocrit Auto (Bld) [Volum e fraction]Ordered By: Avani Eduardo on 02-16-2023 Hematocrit (Bld) [Volume fraction] 40.4 % 40-54 [facility] Laboratory - Chemistry and C hemistry - challengeOrdered By: Avani Eduardo on 02-16-2023 CO2 [Moles/Vol] 27.0 mmol/L 21.0-32.0 [facility] Magnesium [Mass/Vol] 2.6 mg/dL 1.6-2.6 [facility] Urea nitrogen/Creatinine [Mass ratio] 26.0 mg/mg 10-20 [facility] Laboratory - Hematology and Cell countsOrdered By: Avani Eduardo on 02-16-2023 Erythrocyte distribution width (RBC) [Entitic vol] 46.1 fL 35.1-43.9 [facility] Erythrocyte distribution width (RBC) [Ratio] 11.9 % 11.6-14.6 [facility] MCH (RBC) [Entitic mass] 32.8 pg 27.0-32.0 [facility] MCHC Auto (RBC) [Mass/Vol]Or dered By: Avani Eduardo on 02-16-2023 MCHC (RBC) [Mass/Vol] 31.4 g/dL 32-36 [facility] No Panel InformationOrdered By: Avani Eduardo on 02-16-2023 Estimated GFR (MDRD) Amer 178 mL/min >60 [facility] Comment on above: GFR Calc Estimated GFR (MDRD) Non-Af Amer 147 mL/min >60 [facility] Comment on above: Non- GFR Calc Platelets bldOrdered By: Ethan Eduardo on 02-16-2023 Platelets (Bld) [#/Vol] 141 10*3/uL 150-450 [facility] Serum or plasma calcium minda urement (mass/volume)Ordered By: Avani Eduardo on 02-16-2023 Calcium [Mass/Vol] 8.7 mg/dL 8.5-10.1 [facility] Serum or plasma creatinine m easurement (mass/volume)Ordered By: Avani Eduardo on 02-16-2023 Creatinine [Mass/Vol] 0.58 mg/dL 0.70-1.30 [facility] Comment on above: The validity of the calculated GFR & GFRAA in patients over 70 years has not been determined. Clinical correlation is essential. Serum or plasma urea nitroge n measurement (mass/volume)Ordered By: Avani Eduardo on 02-16-2023 Urea nitrogen [Mass/Vol] 15 mg/dL 7-18 [facility] Thin prep Papanicolaou smear with manual screeningOrdered By: Avani Eduardo on 02-16-2023 Thin prep Papanicolaou smear with manual screening 9 5-15 [facility] Basophil percentageOrdered B y: Avani Eduardo on 02-09-2023 Chloride [Moles/Vol] 106 mmol/L 98-107 [facility] Glucose [Mass/Vol] 95 mg/dL 74-106 [facility] Potassium [Moles/Vol] 3.9 mmol/L 3.5-5.1 [facility] Sodium [Moles/Vol] 143 mmol/L 136-145 [facility] WBC (Bld) [#/Vol] 7.2 10*3/uL 4.4-11.0 [facility] Blood erythrocytes count (nu mber/volume)Ordered By: Avani Eduardo on 02-09-2023 RBC (Bld) [#/Vol] 3.98 10*6/uL 4.6-6.2 [facility] Blood hemoglobin measurement (mass/volume)Ordered By: Avani Eduardo on 02-09-2023 Hemoglobin (Bld) [Mass/Vol] 13.1 g/dL 13.0-16.5 [facility] Blood platelet mean volumeOr dered By: Avani Eduardo on 02-09-2023 Platelet mean volume (Bld) [Entitic vol] 9.3 fL 6.2-12.0 [facility] Determination of erythrocyte mean corpuscular volume (MCV)Ordered By: Avani Eduardo on 02-09-2023 MCV (RBC) [Entitic vol] 103.0 fL 80-94 [facility] Hematocrit Auto (Bld) [Volum e fraction]Ordered By: Avani Eduardo on 02-09-2023 Hematocrit (Bld) [Volume fraction] 41.0 % 40-54 [facility] Laboratory - Chemistry and C hemistry - challengeOrdered By: Avani Eduardo on 02-09-2023 CO2 [Moles/Vol] 31.0 mmol/L 21.0-32.0 [facility] Magnesium [Mass/Vol] 2.7 mg/dL 1.6-2.6 [facility] Urea nitrogen/Creatinine [Mass ratio] 21.5 mg/mg 10-20 [facility] Laboratory - Hematology and Cell countsOrdered By: Avani Eduardo on 02-09-2023 Erythrocyte distribution width (RBC) [Entitic vol] 46.2 fL 35.1-43.9 [facility] Erythrocyte distribution width (RBC) [Ratio] 12.2 % 11.6-14.6 [facility] MCH (RBC) [Entitic mass] 32.9 pg 27.0-32.0 [facility] MCHC Auto (RBC) [Mass/Vol]Or dered By: Avani Eduardo on 02-09-2023 MCHC (RBC) [Mass/Vol] 32.0 g/dL 32-36 [facility] No Panel InformationOrdered By: Avani Eduardo on 02-09-2023 Estimated GFR (MDRD) Amer 155 mL/min >60 [facility] Comment on above: GFR Calc Estimated GFR (MDRD) Non-Af Amer 128 mL/min >60 [facility] Comment on above: Non- GFR Calc Platelets bldOrdered By: Ethan Eduardo on 02-09-2023 Platelets (Bld) [#/Vol] 185 10*3/uL 150-450 [facility] Serum or plasma calcium minda urement (mass/volume)Ordered By: Avanigómez Eduardo on 02-09-2023 Calcium [Mass/Vol] 9.2 mg/dL 8.5-10.1 [facility] Serum or plasma creatinine m easurement (mass/volume)Ordered By: Avani Eduardo on 02-09-2023 Creatinine [Mass/Vol] 0.65 mg/dL 0.70-1.30 [facility] Comment on above: The validity of the calculated GFR & GFRAA in patients over 70 years has not been determined. Clinical correlation is essential. Serum or plasma urea nitroge n measurement (mass/volume)Ordered By: Avanigómez Eduardo on 02-09-2023 Urea nitrogen [Mass/Vol] 14 mg/dL 7-18 [facility] Thin prep Papanicolaou smear with manual screeningOrdered By: [facility] on 02-[facility]23 Thin prep Papanicolaou smear with manual screening 6 5-15 [facility] Basophil percentageOrdered B y: [facility] on 02-05-2023 Ammonia (P) [Moles/Vol] 31.0 umol/L [facility] No Panel InformationOrdered By: [facility] on 02-05-2023 Levetiracetam (Keppra) Level 33.4 ug/mL 10.0-40.0 [facility] Comment on above: Performed at: [address] [id number] Director: Jess Bess MD, Phone: [phone] Valproic Acid (Depakene) Level 81 ug/mL 50-100 [facility] Absolute lymphocyte countOrd ered By: Dr. Wilder on 01-18-2023 Lymphocytes Auto (Unsp spec) [#/Vol] 2.09 10*3/uL 0.83-4.51 [facility] Basophil percentageOrdered B y: Dr. Wilder on 01-18-2023 Ammonia (P) [Moles/Vol] 73.0 umol/L [facility] Basophils/100 WBC (Bld) 0.7 % 0-1 [facility] Bilirubin [Mass/Vol] 0.20 mg/dL 0.20-1.00 [facility] Comment on above: For patients on eltr ombopag therapy, use of [place] TBIL is not recommended. Chloride [Moles/Vol] 110 mmol/L 98-107 [facility] Eosinophils/100 WBC (Bld) 1.7 % 0-5 [facility] Glucose [Mass/Vol] 102 mg/dL 74-106 [facility] Comment on above: Fasting Glucose resu lt from 100 to 125 mg/dL suggests IMPAIRED HOMEOSTASIS per A.D.A. criteria. Neutrophils (Bld) [#/Vol] 2.4 10*3/uL 2.0-7.7 [facility] Neutrophils/100 WBC (Bld) 44.0 % 47-70 [facility] Potassium [Moles/Vol] 4.0 mmol/L 3.5-5.1 [facility] Protein [Mass/Vol] 4.5 g/dL 6.4-8.2 [facility] Sodium [Moles/Vol] 142 mmol/L 136-145 [facility] WBC (Bld) [#/Vol] 5.4 10*3/uL 4.4-11.0 [facility] Blood erythrocytes count (nu mber/volume)Ordered By: Dr. Wilder on 01-18-2023 RBC (Bld) [#/Vol] 2.97 10*6/uL 4.6-6.2 [facility] Blood hemoglobin measurement (mass/volume)Ordered By: Dr. Wilder on 01-18-2023 Hemoglobin (Bld) [Mass/Vol] 9.9 g/dL 13.0-16.5 [facility] Blood lymphocytes/100 leukoc ytesOrdered By: Dr. Wilder on 01-18-2023 Lymphocytes/100 WBC (Bld) 38.8 % 19-41 [facility] Blood monocytes/100 leukocyt esOrdered By: Dr. Wilder on 01-18-2023 Monocytes/100 WBC (Bld) 13.7 % 0-10 [facility] Blood platelet mean volumeOr dered By: Dr. Wilder on 01-18-2023 Platelet mean volume (Bld) [Entitic vol] 8.7 fL 6.2-12.0 [facility] Determination of erythrocyte mean corpuscular volume (MCV)Ordered By: Dr. Wilder on 01-18-2023 MCV (RBC) [Entitic vol] 104.7 fL 80-94 [facility] Hematocrit Auto (Bld) [Volum e fraction]Ordered By: Dr. Wilder on 01-18-2023 Hematocrit (Bld) [Volume fraction] 31.1 % 40-54 [facility] Laboratory - Chemistry and C hemistry - challengeOrdered By: Dr. Wilder on 01-18-2023 ALP [Catalytic activity/Vol] 38 U/L 45-117 [facility] ALT [Catalytic activity/Vol] 10 U/L 16-61 [facility] CO2 [Moles/Vol] 29.0 mmol/L 21.0-32.0 [facility] Globulin (S) [Mass/Vol] 2.4 g/dL 2.2-4.2 [facility] Urea nitrogen/Creatinine [Mass ratio] 30.9 mg/mg 10-20 [facility] Laboratory - Hematology and Cell countsOrdered By: Dr. Widler on 01-18-2023 Erythrocyte distribution width (RBC) [Entitic vol] 52.2 fL 35.1-43.9 [facility] Erythrocyte distribution width (RBC) [Ratio] 13.4 % 11.6-14.6 [facility] Immature granulocytes/100 WBC (Bld) 1.100 % 0.0-0.9 [facility] Comment on above: IG% - Immature Granu locytes (promyelocytes, myelocytes and metamyelocytes) > 1% indicates that a LEFT SHIFT is Present. MCH (RBC) [Entitic mass] 33.3 pg 27.0-32.0 [facility] Nucleated RBC/100 WBC (Bld) [Ratio] 0 % 0-5 [facility] MCHC Auto (RBC) [Mass/Vol]Or dered By: Dr. Wilder on 01-18-2023 MCHC (RBC) [Mass/Vol] 31.8 g/dL 32-36 [facility] No Panel InformationOrdered By: Dr. Wilder on 01-18-2023 Estimated Creatinine Clearance Calc 52.95 ml/min [facility] Estimated GFR (MDRD) Amer 217 mL/min >60 [facility] Comment on above: GFR Calc Estimated GFR (MDRD) Non-Af Amer 179 mL/min >60 [facility] Comment on above: Non- GFR Calc Platelets bldOrdered By: Dr. Wilder on 01-18-2023 Platelets (Bld) [#/Vol] 137 10*3/uL 150-450 [facility] Serum or plasma albumin minda urement (mass/volume)Ordered By: Dr. Wilder on 01-18-2023 Albumin [Mass/Vol] 2.1 g/dL 3.2-5.0 [facility] Serum or plasma albumin/glob ulin mass ratioOrdered By: Dr. Wilder on 01-18-2023 Albumin/Globulin [Mass ratio] 0.9 {ratio} 0.9-2.4 [facility] Serum or plasma calcium minda urement (mass/volume)Ordered By: Dr. Wilder on 01-18-2023 Calcium [Mass/Vol] 8.5 mg/dL 8.5-10.1 [facility] Serum or plasma creatinine m easurement (mass/volume)Ordered By: Dr. Wilder on 01-18-2023 Creatinine [Mass/Vol] 0.48 mg/dL 0.70-1.30 [facility] Comment on above: The validity of the calculated GFR & GFRAA in patients over 70 years has not been determined. Clinical correlation is essential. Serum or plasma urea nitroge n measurement (mass/volume)Ordered By: Dr. Wilder on 01-18-2023 Urea nitrogen [Mass/Vol] 15 mg/dL 7-18 [facility] Thin prep Papanicolaou smear with manual screeningOrdered By: Dr. Wilder on 01-18-2023 Thin prep Papanicolaou smear with manual screening 14 U/L 15-37 [facility] Thin prep Papanicolaou smear with manual screening 3 5-15 [facility] Assessment of wrist artery p atency prior to arterial punctureOrdered By: Dr. Wilder on 01-16-2023 Arterial patency Wrist artery --pre arterial puncture Positive [facility] Base excessOrdered By: Dr. Brodie arce on 01-16-2023 Base excess Calc (BldV) [Moles/Vol] 7 mmol/L -2-2 [facility] Basophil percentageOrdered B y: Dr. Wilder on 01-16-2023 Basophil percentage 31.9 mmol/L 22-26 [facility] Basophils/100 WBC (Bld) 94 % 95-99 [facility] CO2 (BldA) [Partial pressure ]Ordered By: Dr. Wilder on 01-16-2023 CO2 (Bld) [Partial pressure] 49.8 mm[Hg] 35-45 [facility] Laboratory - Chemistry and C hemistry - challengeOrdered By: Dr. Wilder on 01-16-2023 Natriuretic peptide B (Bld) [Mass/Vol] 15.2 pg/mL 0-100 [facility] No Panel InformationOrdered By: Dr. Wilder on 01-16-2023 Valproic Acid (Depakene) Level 91 ug/mL 50-100 [facility] Blood Gas Oxygen Percent 21 [facility] Blood Gas Sample Site R Radial [facility] Blood Gas Specimen Type ART [facility] Blood Gas Total CO2 33 mmol/L [facility] Oxygen Delivery Device Room Air [facility] Oxygen (BldA) [Partial press ure]Ordered By: Dr. Wilder on 01-16-2023 Oxygen (Bld) [Partial pressure] 70 mmHG 75-100 [facility] pH measurementOrdered By: Dr Shanthi Wilder on 01-16-2023 pH (Unsp spec) 7.42 [pH] 7.35-7.45 [facility] Absolute lymphocyte countOrd ered By: Dr. Malik on 01-10-2023 Lymphocytes Auto (Unsp spec) [#/Vol] 2.65 10*3/uL 0.83-4.51 [facility] Basophil percentageOrdered B y: Dr. Malik on 01-10-2023 Basophil percentage 0 SEEN /hpf 0-5 [facility] Basophils/100 WBC (Bld) 0.8 % 0-1 [facility] Chloride [Moles/Vol] 105 mmol/L 98-107 [facility] Eosinophils/100 WBC (Bld) 1.7 % 0-5 [facility] Glucose [Mass/Vol] 83 mg/dL 74-106 [facility] Neutrophils (Bld) [#/Vol] 5.6 10*3/uL 2.0-7.7 [facility] Neutrophils/100 WBC (Bld) 53.9 % 47-70 [facility] Potassium [Moles/Vol] 4.3 mmol/L 3.5-5.1 [facility] Sodium [Moles/Vol] 139 mmol/L 136-145 [facility] WBC (Bld) [#/Vol] 10.4 10*3/uL 4.4-11.0 [facility] Bilirubin Test strip Ql (U)O rdered By: Dr. Malik on 01-10-2023 Bilirubin Ql (U) Negative Negative [facility] Blood erythrocytes count (nu mber/volume)Ordered By: Dr. Malik on 01-10-2023 RBC (Bld) [#/Vol] 3.68 10*6/uL 4.6-6.2 [facility] Blood hemoglobin measurement (mass/volume)Ordered By: Dr. Malik on 01-10-2023 Hemoglobin (Bld) [Mass/Vol] 12.3 g/dL 13.0-16.5 [facility] Blood lymphocytes/100 leukoc ytesOrdered By: Dr. Malik on 01-10-2023 Lymphocytes/100 WBC (Bld) 25.6 % 19-41 [facility] Blood monocytes/100 leukocyt esOrdered By: Dr. Malik on 01-10-2023 Monocytes/100 WBC (Bld) 16.6 % 0-10 [facility] Blood platelet mean volumeOr dered By: Dr. Malik on 01-10-2023 Platelet mean volume (Bld) [Entitic vol] 8.4 fL 6.2-12.0 [facility] Determination of erythrocyte mean corpuscular volume (MCV)Ordered By: Dr. Malik on 01-10-2023 MCV (RBC) [Entitic vol] 102.2 fL 80-94 [facility] Hematocrit Auto (Bld) [Volum e fraction]Ordered By: Dr. Malik on 01-10-2023 Hematocrit (Bld) [Volume fraction] 37.6 % 40-54 [facility] Hyaline casts LM.LPF (Urine sed) [#/Area]Ordered By: Dr. Malik on 01-10-2023 Hyaline casts (Urine sed) [#/Area] 0 /[LPF] 0-5 [facility] Ketones Test strip Ql (U)Ord ered By: Dr. Malik on 01-10-2023 Ketones Ql (U) 5 mg/dl Negative [facility] Laboratory - Chemistry and C hemistry - challengeOrdered By: Dr. Malik on 01-10-2023 CO2 [Moles/Vol] 29.0 mmol/L 21.0-32.0 [facility] Urea nitrogen/Creatinine [Mass ratio] 15.0 mg/mg 10-20 [facility] Laboratory - Hematology and Cell countsOrdered By: Dr. Malik on 01-10-2023 Erythrocyte distribution width (RBC) [Entitic vol] 49.0 fL 35.1-43.9 [facility] Erythrocyte distribution width (RBC) [Ratio] 13.1 % 11.6-14.6 [facility] Immature granulocytes/100 WBC (Bld) 1.400 % 0.0-0.9 [facility] Comment on above: IG% - Immature Granu locytes (promyelocytes, myelocytes and metamyelocytes) > 1% indicates that a LEFT SHIFT is Present. MCH (RBC) [Entitic mass] 33.4 pg 27.0-32.0 [facility] Nucleated RBC/100 WBC (Bld) [Ratio] 0 % 0-5 [facility] MCHC Auto (RBC) [Mass/Vol]Or dered By: Dr. Malik on 01-10-2023 MCHC (RBC) [Mass/Vol] 32.7 g/dL 32-36 [facility] Macrocytes detectionOrdered By: Dr. Malik on 01-10-2023 Macrocytes Ql (Bld) 2+ [facility] Mucus LM Ql (Urine sed)Order ed By: Dr. Malik on 01-10-2023 Mucus Ql (Urine sed) 0 SEEN /hpf [facility] Nitrite Test strip Ql (U)Ord ered By: Dr. Malik on 01-10-2023 Nitrite Ql (U) Negative Negative [facility] No Panel InformationOrdered By: Dr. Malik on 01-10-2023 Valproic Acid (Depakene) Level 80 ug/mL 50-100 [facility] Estimated Creatinine Clearance Calc 66.19 ml/min [facility] Estimated GFR (MDRD) Amer 122 mL/min >60 [facility] Comment on above: GFR Calc Estimated GFR (MDRD) Non-Af Amer 101 mL/min >60 [facility] Comment on above: Non- GFR Calc Troponin I High Sensitivity 6 pg/mL 3.0-78.0 [facility] Comment on above: Please Note: New Janice t Units and Gender Specific Reference Ranges. For more information see Policy Stat [place] High Sensitivity Troponin (TNIH) and attachments. Platelets bldOrdered By: Dr. Malik on 01-10-2023 Platelets (Bld) [#/Vol] 168 10*3/uL 150-450 [facility] Protein Test strip Ql (U)Ord ered By: Dr. Malik on 01-10-2023 Protein Ql (U) 15 mg/dl Negative [facility] Serum or plasma calcium minda urement (mass/volume)Ordered By: Dr. Malik on 01-10-2023 Calcium [Mass/Vol] 9.0 mg/dL 8.5-10.1 [facility] Serum or plasma creatinine m easurement (mass/volume)Ordered By: Dr. Malik on 01-10-2023 Creatinine [Mass/Vol] 0.80 mg/dL 0.70-1.30 [facility] Comment on above: The validity of the calculated GFR & GFRAA in patients over 70 years has not been determined. Clinical correlation is essential. Serum or plasma urea nitroge n measurement (mass/volume)Ordered By: Dr. Malik on 01-10-2023 Urea nitrogen [Mass/Vol] 12 mg/dL 7-18 [facility] Squamous epithelial cells de tection in urine sediment by light microscopyOrdered By: Dr. Malik on 01-10-2023 Epithelial cells.squamous LM Ql (Urine sed) 0 SEEN /hpf 0-5 [facility] Thin prep Papanicolaou smear with manual screeningOrdered By: Dr. Malik on 01-10-2023 Thin prep Papanicolaou smear with manual screening 5 5-15 [facility] Urine blood detectionOrdered By: Dr. Malik on 01-10-2023 RBC Ql (U) 25 /ul Negative [facility] RBC Ql (U) 0 SEEN /hpf 0-5 [facility] Urine clarityOrdered By: Dr. Malik on 01-10-2023 Clarity (U) Clear Clear [facility] Urine color determinationOrd ered By: Dr. Malik on 01-10-2023 Color (U) Yellow Yellow [facility] Urine glucose detectionOrder ed By: Dr. Malik on 01-10-2023 Glucose Ql (U) Normal mg/dl Normal [facility] Urine leukocyte esterase det ection by dipstickOrdered By: Dr. Malik on 01-10-2023 Leukocyte esterase Test strip Ql (U) Negative Negative [facility] Urine pHOrdered By: Dr. Binta smith on 01-10-2023 pH (U) 6.0 [pH] 5.0 - 8.0 [facility] Urine sediment bacteria coun t by microscopy (number/high power field)Ordered By: Dr. Malik on 01-10-2023 Bacteria LM.HPF (Urine sed) [#/Area] 0 /[HPF] None Seen [facility] Urine specific gravity measu rementOrdered By: Dr. Malik on 01-10-2023 Specific gravity (U) [Rel density] 1.015 1.002-1.03 0 [facility] Urobilinogen Auto test strip Ql (U)Ordered By: Dr. Malik on 01-10-2023 Urobilinogen Ql (U) Normal mg/dl Normal [facility] Ammonia Plas-sCncon 01-10-20 23 Ammonia (P) [Moles/Vol] 35 umol/L Normal 16-60 [facility] Comment on above: Order Comment: Speci men Type: BLOOD SPECIMEN Ordering Facility: [facility] Address: [address] [place], [place] [id number] Performed By: #### 1 6362-6 #### [facility] CLIA [id number] [address] OF [facility] CASE MANAGEMon 01-09-2023 CASE MANAGEM HNO ID: [id number] Author: ALYSSA Humphreys Service: ? Author Type: Percussion Instrument Tuner Type: Care Mgt Progress Note Filed: 01/09/2023 2:41 PM Note Text: CARE MANAGEMENT DISCHARGE NOTE SERVICE DATE: 01/09/2023 SERVICE TIME: 2:31 PM LOS: 1 day Patient discharging back to [facility] in [place]. Patient to be picked up at 9pm. [...] 09, 2023 TIME: 2:31 PM PAGER/CONTACT #: [phone] [facility] 01-09-2023 [facility] HNO ID: [id number] Author: Lorene Ortiz MD Service: Hospital Medicine [...] Attending Provider: Lorene Ortiz MD Primary Service: [facility] Attending: Keron Dewey MD Consulting: Micheline [...] HTN, and KYA He was admitted to [facility] 5 days prior due to [...] 30 tablet (more content not included)... Normal [facility] NURSING PROGon 01-09-2023 NURSING PROG HNO ID: [id number] Author: Anitha Burnette RN Service: Nursing Author Type: Registered Nurse Type: Nursing Progress Note Filed: 01/09/2023 12:24 PM Note Text: Patient being discharged back to [facility]. Patient agreeable. Updated and informed facility of patient's return. Normal [facility] Valproate SerPl-mCncon 01-09 Valproate [Mass/Vol] 80.8 ug/mL Normal 50.0-100.0 [facility] Comment on above: Order Comment: Speci men Type: BLOOD SPECIMEN Ordering Facility: [facility] Address: [address] [place] [address] [place] [address] Result Comment: Refe rence ranges and high/low indicator flags are provided as general guidelines only. The treating physician must determine appropriate target levels/dosing based on the specific clinical situation. Performed By: #### 4 086-5 #### [facility] CLIA [id number] [address] [place] [id number] [facility] ALLIED HEALTHon 01-08-2023 ALLIED HEALTH HNO ID: [id number] Author: RT Vivian(R) Service: Radiology Author Type: [...] Vivian(R) January 08, 2023 1:16 PM Normal [facility] CASE MGT INIT [facility] 2022 CASE MGT INIT [facility] HNO ID: [id number] Author: LAYNE Lozano Service: Social Work Author Type: Percussion Instrument Tuner Type: Care Mgt Initial Assessment Filed: 01/08/2023 4:14 PM Note Text: CARE MANAGEMENT: ASSESSMENT AND DISCHARGE PLAN SERVICE DATE: January 08, 2023 SERVICE TIME: 3:39 PM PCP: Maddie Cantor DO Primary Contact: Extended Emergency Contact Information Primary Emergency Contact: Cha Cantor Mobile Relation: Sister Secondary Emergency Contact: Pj conti Mobile Relation: Relative Admission Status: Inpatient Insurance Provider: [facility] DUAL COMPLETE HMO POS SNP Discharge Planning requested by: Per Department Practice Potential Transition Plans Advance Directives Current Advance Directive: Health Care Power of Finisher Screwdown In Chart: Yes Up To Date and Valid: Yes Current Living Arrangements and Support Lives with: ([facility] Type of Residence: Assisted Living Facility [...] Care Goal(s): to return to Assisted living [place] Explained: [place] Given: Yes Level of Care [...] transportation financial coverage discussed with family?: No 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 Is in from [facility] in [place]. 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 PT and OT recommend home PT. Pt with no preference for home health agency. With pt's consent, contacted [facility] for agency they use. Referral sent to [facility]. Will need transport back to [facility] w/c ambulette. Per , pt now with lumbar fx. Await return call from pt's AMADOU - Drea jay [phone] to update. SIGNATURE: LAYNE Lozano PATIENT NAME: Anjel Ross DATE: January 08, 2023 TIME: 3:39 PM CONTACT #: [phone] Normal [facility] CBC W Auto Differential pane l (Bld)on 01-08-2023 Basophils (Bld) [#/Vol] 0.05 10*3/uL Normal <0.11 [facility] Comment on above: Order Comment: Speci men Type: BLOOD SPECIMEN Ordering Facility: [facility] Address: [address] [place] [address] Performed By: #### 5 7021-8 #### [facility] CLIA [id number] [address] [place] Basophils/100 WBC (Bld) 0.6 % Normal [facility] Comment on above: Order Comment: Speci men Type: BLOOD SPECIMEN Ordering Facility: [facility] Address: [address] [place] [address] Performed By: #### 5 7021-8 #### [facility] CLIA [id number] [address] STATES OF [facility] Differential cell count method Nom (Bld) Auto Normal [facility] Comment on above: Order Comment: Speci men Type: BLOOD SPECIMEN Ordering Facility: [facility] Address: [address] [place] [address] Performed By: #### 5 7021-8 #### [facility] CLIA [id number] 1 [place] [address] [place] Eosinophils (Bld) [#/Vol] 0.18 10*3/uL Normal <0.46 [facility] Comment on above: Order Comment: Speci men Type: BLOOD SPECIMEN Ordering Facility: [facility] Address: [address] [place] [address] Performed By: #### 5 7021-8 #### [facility] CLIA [id number] [address] [place] Eosinophils/100 WBC (Bld) 2.0 % Normal [facility] Comment on above: Order Comment: Speci men Type: BLOOD SPECIMEN Ordering Facility: [facility] Address: [address] [place] [address] Performed By: #### 5 7021-8 #### [facility] CLIA [id number] [address] Erythrocyte distribution width (RBC) [Ratio] 12.9 % Normal 11.5-15.0 [facility] Comment on above: Order Comment: Speci men Type: BLOOD SPECIMEN Ordering Facility: [facility] Address: [address] [place] [address] Performed By: #### 5 7021-8 #### [facility] CLIA [id number] [address] [place] Hematocrit (Bld) [Volume fraction] 40.2 % Normal 39.0-51.0 [facility] Comment on above: Order Comment: Speci men Type: BLOOD SPECIMEN Ordering Facility: [facility] Address: [address] [place] [address] Performed By: #### 5 7021-8 #### [facility] CLIA [id number] [address] [place] Hemoglobin (Bld) [Mass/Vol] 13.1 g/dL Normal 13.0-17.0 [facility] Comment on above: Order Comment: Speci men Type: BLOOD SPECIMEN Ordering Facility: [facility] Address: [address] [place] [address] Performed By: #### 5 7021-8 #### [facility] CLIA [id number] [address] [place] Immature granulocytes (Bld) [#/Vol] 0.10 10*3/uL High <0.10 [facility] Comment on above: Order Comment: Speci men Type: BLOOD SPECIMEN Ordering Facility: [facility] Address: [address] [place] [address] Performed By: #### 5 7021-8 #### [facility] CLIA [id number] [address] [place] Immature granulocytes/100 WBC (Bld) 1.1 % Normal [facility] Comment on above: Order Comment: Speci men Type: BLOOD SPECIMEN Ordering Facility: [facility] Address: [address] [place] [address] Performed By: #### 5 7021-8 #### [facility] CLIA [id number] [address] OF [facility] Lymphocytes (Bld) [#/Vol] 2.81 10*3/uL Normal 1.00-4.00 [facility] Comment on above: Order Comment: Speci men Type: BLOOD SPECIMEN Ordering Facility: [facility] Address: [address] [place] [address] Performed By: #### 5 7021-8 #### [facility] CLIA [id number] [address] Lymphocytes/100 WBC (Bld) 31.6 % Normal [facility] Comment on above: Order Comment: Speci men Type: BLOOD SPECIMEN Ordering Facility: [facility] Address: [address] [place] [address] Performed By: #### 5 7021-8 #### [facility] CLIA [id number] [address] MCH (RBC) [Entitic mass] 32.7 pg Normal 26.0-34.0 [facility] Comment on above: Order Comment: Speci men Type: BLOOD SPECIMEN Ordering Facility: [facility] Address: [address] [place] [address] Performed By: #### 5 7021-8 #### [facility] CLIA [id number] [address] MCHC (RBC) [Mass/Vol] 32.6 g/dL Normal 30.5-36.0 [facility] Comment on above: Order Comment: Speci men Type: BLOOD SPECIMEN Ordering Facility: [facility] Address: [address] [place] [address] Performed By: #### 5 7021-8 #### [facility] CLIA [id number] [address] [place] MCV (RBC) [Entitic vol] 100.2 fL High 80.0-100.0 [facility] Comment on above: Order Comment: Speci men Type: BLOOD SPECIMEN Ordering Facility: [facility] Address: [address] [address] Performed By: #### 5 7021-8 #### [facility] CLIA [id number] [address] [place] Monocytes (Bld) [#/Vol] 1.06 10*3/uL High <0.87 [facility] Comment on above: Order Comment: Speci men Type: BLOOD SPECIMEN Ordering Facility: [facility] Address: [address] [place] [address] Performed By: #### 5 7021-8 #### [facility] CLIA [id number] [address] Monocytes/100 WBC (Bld) 11.9 % Normal [facility] Comment on above: Order Comment: Speci men Type: BLOOD SPECIMEN Ordering Facility: [facility] Address: [address] [place] [address] Performed By: #### 5 7021-8 #### [facility] CLIA [id number] [address] Neutrophils (Bld) [#/Vol] 4.70 10*3/uL Normal 1.45-7.50 [facility] Comment on above: Order Comment: Speci men Type: BLOOD SPECIMEN Ordering Facility: [facility] Address: [address] [place] [address] Performed By: #### 5 7021-8 #### [facility] CLIA [id number] [address] Neutrophils/100 WBC (Bld) 52.8 % Normal [facility] Comment on above: Order Comment: Speci men Type: BLOOD SPECIMEN Ordering Facility: [facility] Address: [address] [place] [address] Performed By: #### 5 7021-8 #### [facility] CLIA [id number] [address] [place] Nucleated RBC (Bld) [#/Vol] 10*3/uL Normal <0.01 [facility] Comment on above: Order Comment: Speci men Type: BLOOD SPECIMEN Ordering Facility: [facility] Address: [address] [place] [address] Performed By: #### 5 7021-8 #### [facility] CLIA [id number] [address] [place] Nucleated RBC/100 WBC (Bld) [Ratio] 0.0 /100 WBC Normal [facility] Comment on above: Order Comment: Speci men Type: BLOOD SPECIMEN Ordering Facility: [facility] Address: [address] [place] [address] Performed By: #### 5 7021-8 #### [facility] CLIA [id number] [address] Platelet mean volume (Bld) [Entitic vol] 8.5 fL Low 9.0-12.7 [facility] Comment on above: Order Comment: Speci men Type: BLOOD SPECIMEN Ordering Facility: [facility] Address: [address] [place] [address] Performed By: #### 5 7021-8 #### [facility] CLIA [id number] [address] [place] Platelets (Bld) [#/Vol] 160 10*3/uL Normal 150-400 [facility] Comment on above: Order Comment: Speci men Type: BLOOD SPECIMEN Ordering Facility: [facility] Address: [address] [place] [address] Performed By: #### 5 7021-8 #### [facility] CLIA [id number] [address] [place] RBC (Bld) [#/Vol] 4.01 10*6/uL Low 4.20-6.00 [facility] Comment on above: Order Comment: Speci men Type: BLOOD SPECIMEN Ordering Facility: [facility] Address: [address] [place] [address] Performed By: #### 5 7021-8 #### [facility] CLIA [id number] [address] WBC (Bld) [#/Vol] 8.90 10*3/uL Normal 3.70-11.00 [facility] Comment on above: Order Comment: Devendra krishnamurthy Type: BLOOD SPECIMEN Ordering Facility: [facility] Address: [address] Performed By: #### 5 7021-8 #### [facility] CLIA [id number] [address] CONSULTon 01-08-2023 CONSULT HNO ID: [id number] Author: Mann Waggoner APRN.ROLL UP HELPER Service: Neurosurgery Author Type: Nurse Practitioner Type: [...] a 72 year old male transferred from [facility] with concerns for NPH.The patient currently [...] W/COLLJ SPEC WHEN PFRMD 03/25/[address] [facility] COLSC FLX W/REMOVAL LESION BY HOT BX [...] 40 mg (more content not included)... Normal [facility] CONSULT HNO ID: [id number] Author: Chino Gerber DO Service: Neurology General [...] hypertension, KYA, who was initially admitted to [facility] 5 days ago with generalized weakness, unsteady gait and fall without focal deficits. During that hospital stay CT brain was concerning for possible NPH. Subsequently, telemetry neurologist recommended patient to be transferred for neurology consult and LP and MRI brain/spine with and without contrast. Patient admitted to [facility] on 01/08 with differential diagnosis [...] W/COLLJ SPEC WHEN PFRMD 03/25/[address] [facility] COLSC FLX W/REMOVAL LESION BY HOT BX [...] mg tablet (more content not included)... Normal [facility] CT LUMBAR SPINE WO IVCONon 0 01-08-2023 CT LUMBAR SPINE WO IVCON * * *Final Report* * * DATE OF EXAM: Jan 08 2023 4:50PM [facility] 0508 - CT LUMBAR SPINE [...] are 5 lumbar-type vertebrae. Anatomic variant: None. Branch Sales Manager (topogram) images: Right hip arthroplasty. Alignment: S-shaped [...] and assume there are 5 lumbar-type vertebrae. Housing Liaison: ELVIS Transcribe Date/Time: Jan 09 2023 9:56A Dictated by : NGUYỄN GILBETR DO This examination was interpreted and the report reviewed and electronically signed by: NGUYỄN GILBERT DO on Jan 09 2023 10:03AM EST [id number] Normal [facility] Comprehensive metabolic 2000 panelon 01-08-2023 Albumin [Mass/Vol] 3.2 g/dL Low 3.9-4.9 [facility] Comment on above: Order Comment: Speci men Type: BLOOD SPECIMEN Ordering Facility: [facility] Address: [address] [place] [address] Performed By: #### 2 4323-8, , 3015-3 #### [facility] CLIA [id number] [address] [place] [facility] ALP [Catalytic activity/Vol] 58 U/L Normal 38-113 [facility] Comment on above: Order Comment: Speci men Type: BLOOD SPECIMEN Ordering Facility: [facility] Address: [address] [place] [address] Performed By: #### 2 4323-8, , 6-3 #### [facility] CLIA [id number] 1 [place] [address] [place] ALT With P-5'-P [Catalytic activity/Vol] 7 U/L Low 10-54 [facility] Comment on above: Order Comment: Speci men Type: BLOOD SPECIMEN Ordering Facility: [facility] Address: [address] [place] [address] Performed By: #### 2 4323-8, 72980-3, 6-3 #### [facility] CLIA [id number] [address] [place] Anion gap [Moles/Vol] 10 mmol/L Normal 9-18 [facility] Comment on above: Order Comment: Speci men Type: BLOOD SPECIMEN Ordering Facility: [facility] Address: [address] [address] Performed By: #### 2 3-8, , 3 #### [facility] CLIA [id number] [address] [place] AST With P-5'-P [Catalytic activity/Vol] 15 U/L Normal 14-40 [facility] Comment on above: Order Comment: Speci men Type: BLOOD SPECIMEN Ordering Facility: [facility] Address: [address] [place] [address] Performed By: #### 2 3-8, , 3 #### [facility] CLIA [id number] [address] [place] Bilirubin [Mass/Vol] 0.3 mg/dL Normal 0.2-1.3 [facility] Comment on above: Order Comment: Speci men Type: BLOOD SPECIMEN Ordering Facility: [facility] Address: [address] [address] Performed By: #### 2 4322-8, , 3 #### [facility] CLIA [id number] [address] [place] Calcium [Mass/Vol] 9.4 mg/dL Normal 8.5-10.2 [facility] Comment on above: Order Comment: Speci men Type: BLOOD SPECIMEN Ordering Facility: [facility] Address: [address] [address] Performed By: #### 2 4323-8, , 3 #### [facility] CLIA [id number] [address] [place] Chloride [Moles/Vol] 104 mmol/L Normal 97-105 [facility] Comment on above: Order Comment: Speci men Type: BLOOD SPECIMEN Ordering Facility: [facility] Address: [address] [address] Performed By: #### 2 4323-8, , 3 #### [facility] CLIA [id number] 1 [place] [address] [place] CO2 [Moles/Vol] 28 mmol/L Normal 22-30 [facility] Comment on above: Order Comment: Speci men Type: BLOOD SPECIMEN Ordering Facility: [facility] Address: [address] [place] [address] Performed By: #### 2 4323-8, , 3015-12 #### [facility] CLIA [id number] 1 [place] [address] [place] Creatinine [Mass/Vol] 0.65 mg/dL Low 0.73-1.22 [facility] Comment on above: Order Comment: Speci men Type: BLOOD SPECIMEN Ordering Facility: [facility] Address: [address] [place] [address] Performed By: #### 2 4323-8, , 3015-12 #### [facility] CLIA [id number] [address] [place] ESTIMATED GLOMERULAR FILTRATION RATE 99 mL/min/1.73m??? Normal >=60 [facility] Comment on above: Order Comment: Speci men Type: BLOOD SPECIMEN Ordering Facility: [facility] Address: [address] [place] [address] Result Comment: Narda mated Glomerular Filtration Rate [...] By: #### 2 4323-8, , 3015-12 #### [facility] CLIA [id number] [address] [place] Glucose [Mass/Vol] 90 mg/dL Normal 74-99 [facility] Comment on above: Order Comment: Speci men Type: BLOOD SPECIMEN Ordering Facility: [facility] Address: [address] [place] [address] Result Comment: [employer] [...] By: #### 2 4323-8, , 3015-3 #### [facility] CLIA [id number] 1 [place] [address] [place] Potassium [Moles/Vol] 3.8 mmol/L Normal 3.7-5.1 [facility] Comment on above: Order Comment: Devendra krishnamurthy Type: BLOOD SPECIMEN Ordering Facility: [facility] Address: [address] Performed By: #### 2 4323-8, , 3 #### [facility] CLIA [id number] 1 [place] [address] [place] Protein [Mass/Vol] 5.6 g/dL Low 6.3-8.0 [facility] Comment on above: Order Comment: Symonei men Type: BLOOD SPECIMEN Ordering Facility: [facility] Address: [address] Performed By: #### 2 4323-8, , 3 #### [facility] CLIA [id number] 1 [place] [address] [place] Sodium [Moles/Vol] 142 mmol/L Normal 136-144 [facility] Comment on above: Order Comment: Speci men Type: BLOOD SPECIMEN Ordering Facility: [facility] Address: [place] [address] Performed By: #### 2 4323-8, 68792-7, 6-3 #### [facility] CLIA [id number] [address] [id number] [place] [facility] Urea nitrogen [Mass/Vol] 11 mg/dL Normal 9-24 [facility] Comment on above: Order Comment: Speci men Type: BLOOD SPECIMEN Ordering Facility: [facility] Address: [address] [id number] Performed By: #### 2 4323-8, 44428-4, 3015-3 #### [facility] CLIA [id number] [address] [place] ECG COMPLETEon 01-08-2023 ECG COMPLETE Ventricular Rate : 8 7 BPM Atrial Rate : 87 BPM P-R Interval : 144 ms QRS Duration : 84 ms Q-T Interval : 352 ms QTC Calculation(Bazett) : 423 ms Calculated P [place] : 58 degrees Calculated R [place] : -45 degrees Calculated T [place] : 17 degrees NORMAL SINUS RHYTHM LEFT [...] INFERIOR LEADS Confirmed by MD JOAQUIN VINAY ([id number]) on 01/08/2023 3:41:29 PM NAME : ANJEL ROSS PID : [id number] : 1950 Gender : Male Race : ORD : [id number] Procedure Date : Jan 08 2023 03:21:39 [...] INFERIOR LEADS Confirmed by MD JOAQUIN VINAY ([id number]) on 01/08/2023 3:41:29 PM Test Reason : Arrhythmia Location : 91 : 9100 9101 Overread By : MD JOAQUIN VINAY Edited By : MD JOAQUIN VINAY Referred By : HILARIO MALIK Acquired by : LAKSHMI MOREAU [facility] HISTORY PHYSICALon HISTORY PHYSICAL HNO ID: [id number] Author: Keron Dewey MD Service: General Internal Medicine Author Type: Physician Type: HANDP Filed: 01/08/2023 6:34 AM Note Text: DEPARTMENT OF HOSPITAL MEDICINE HISTORY AND PHYSICAL EXAM SERVICE DATE: 01/08/2023 SERVICE TIME: 1:26 AM Primary Care Physician: Maddie Cantor, DO NIGHT AND WEEKEND COVERAGE: From 7am - 7pm, please call Sound After 7pm, please call cross cover pager #[phone] Subjective CHIEF COMPLAINT: Unsteady gait HPI: This is a 72 year old male F resident with hx of anemia, CAD, hypothyroidism, HL, colon cancer, seizures, HTN, and KYA, who was admitted to [facility] 5 days ago with generalized [...] W/COLLJ SPEC WHEN PFRMD 03/25/[address] [facility] COLSC FLX W/REMOVAL LESION BY HOT BX [...] 1 tablet by mouth daily at bedtime. Cggnw-4-YIF-EPA-Fish Oil 1,000 mg (120 mg-180 mg) cap [...] No Y (more content not included)... Normal [facility] Magnesium SerPl-mCncon 01-08 Magnesium [Mass/Vol] 1.7 mg/dL Normal 1.7-2.3 [facility] Comment on above: Order Comment: Speci men Type: BLOOD SPECIMEN Ordering Facility: [facility] Address: [address] [place], [place] [address] Performed By: #### 2 4323-8, 67672-0, 3016-3 #### [facility] CLIA [id number] [address] [place] [address] [place] NURSING PROGon 01-08-2023 NURSING PROG HNO ID: [id number] Author: Doug Suárez RN Service: Nursing Author Type: Registered Nurse Type: Nursing Progress Note Filed: 01/08/2023 5:29 PM Note Text: 01/08/2023 Nursing note: Notified Neurology AND attending of multiple attempts of obtaining blood (ammonia level) Multiple RN attempted This note was completed by: Doug Suárez RN Normal [facility] THERAPY NTon 01-08-2023 THERAPY NT HNO ID: [id number] Author: Almaz Falcon PT Service: Physical Therapy Author Type: Physical Therapist Type: Therapy (PT/OT/Speech/Resp) Filed: 01/08/2023 4:10 PM Note Text: Physical Therapy Evaluation SERVICE DATE: 01/08/2023 SERVICE TIME: 1445 to 1502 ROOM: [id number] Recommended Discharge Disposition: Home PT Recommended Discharge [...] Risk Current Hospital Course: Originally admitted at [facility] with general weakness and unsteady [...] of Motion: WFL Strength: WFL General Deviations/Observations: Iply decreased, Flexed trunk posture, Narrow Base of [...] Walker Goal: Pt will complete x5 repeated eqg-sp-otyls transfers with SBA Rehab Potential: Good Patient [...] activity as (more content not included)... Normal [facility] THERAPY NT HNO ID: [id number] Author: JODIE Mixon/Morgan Service: Occupational Therapy Author Type: Occupational Therapist Type: Therapy (PT/OT/Speech/Resp) Filed: 01/08/2023 11:27 AM Note Text: Occupational Therapy Evaluation SERVICE DATE: 01/08/2023 SERVICE TIME: 839 to 0908 ROOM: [id number] Recommended Discharge Disposition: Home OT Recommended Discharge [...] with: Patient (more content not included)... Normal [facility] TSH SerPl-aCncon 01-08-2023 TSH Qn 9.720 m[IU]/L High 0.270-4.20 0 [facility] Comment on above: Order Comment: Speci men Type: BLOOD SPECIMEN Ordering Facility: [facility] Address: [address] [place] [address] Performed By: #### 2 4323-8, 27401-6, 3016-3 #### [facility] CLIA [id number] 1 [place] [address] [place] Valproate SerPl-mCncon 01-08 Valproate [Mass/Vol] 72.9 ug/mL Normal 50.0-100.0 [facility] Comment on above: Order Comment: Speci men Type: BLOOD SPECIMEN Ordering Facility: [facility] Address: [address] [place] [address] Result Comment: Refe rence ranges and high/low indicator flags are provided as general guidelines only. The treating physician must determine appropriate target levels/dosing based on the specific clinical situation. Performed By: #### 4 086-5 #### [facility] CLIA [id number] [address] [place] [facility] XR LUMBAR 3V AP/LAT/L5-S1on 01-08-2023 XR LUMBAR [...] Multilevel degenerative disc disease and facet arthropathy. Housing Liaison: PSCB Transcribe Date/Time: Jan 08 2023 2:00P Dictated by : REJI ARNETT MD This examination was interpreted and the report reviewed and electronically signed by: REJI ARNETT MD on Jan 08 2023 2:05PM EST [id number] Normal [facility] XR THORACIC 2V AP/LATon 04-0 XR THORACIC 2V AP/LAT * * *Final Report* * * DATE OF EXAM: Jan 08 2023 1:27PM DAVIDX [id number] - XR THORACIC 2V AP/LAT / [...] report of the accompanying lumbar spine films. Housing Liaison: ELVIS Transcribe Date/Time: Jan 08 2023 2:05P Dictated by : REJI ARNETT MD This examination was interpreted and the report reviewed and electronically signed by: REJI ARNETT MD on Jan 08 2023 2:07PM EST [id number] Normal [facility] Absolute lymphocyte countOrd ered By: Dr. Cannon on 01-07-2023 Lymphocytes Auto (Unsp spec) [#/Vol] 2.20 10*3/uL 0.83-4.51 [facility] Basophil percentageOrdered B y: Dr. Cannon on 01-07-2023 Basophils/100 WBC (Bld) 0.6 % 0-1 [facility] Chloride [Moles/Vol] 110 mmol/L 98-107 [facility] Eosinophils/100 WBC (Bld) 2.6 % 0-5 [facility] Glucose [Mass/Vol] 115 mg/dL 74-106 [facility] Comment on above: Fasting Glucose resu lt from 100 to 125 mg/dL suggests IMPAIRED HOMEOSTASIS per A.D.A. criteria. Neutrophils (Bld) [#/Vol] 3.0 10*3/uL 2.0-7.7 [facility] Neutrophils/100 WBC (Bld) 46.7 % 47-70 [facility] Potassium [Moles/Vol] 3.9 mmol/L 3.5-5.1 [facility] Sodium [Moles/Vol] 140 mmol/L 136-145 [facility] WBC (Bld) [#/Vol] 6.5 10*3/uL 4.4-11.0 [facility] Blood erythrocytes count (nu mber/volume)Ordered By: Dr. Cannon on 01-07-2023 RBC (Bld) [#/Vol] 3.61 10*6/uL 4.6-6.2 [facility] Blood hemoglobin measurement (mass/volume)Ordered By: Dr. Cannon on 01-07-2023 Hemoglobin (Bld) [Mass/Vol] 12.1 g/dL 13.0-16.5 [facility] Blood lymphocytes/100 leukoc ytesOrdered By: Dr. Cannon on 01-07-2023 Lymphocytes/100 WBC (Bld) 33.8 % 19-41 [facility] Blood monocytes/100 leukocyt esOrdered By: Dr. Cannon on 01-07-2023 Monocytes/100 WBC (Bld) 15.2 % 0-10 [facility] Blood platelet mean volumeOr dered By: Dr. Cannon on 01-07-2023 Platelet mean volume (Bld) [Entitic vol] 8.9 fL 6.2-12.0 [facility] Culture, urineOrdered By: Dr Shanthi Malik on 01-07-2023 Bacteria identified Cx Nom (U) Culture exhibits no growth. [facility] Determination of erythrocyte mean corpuscular volume (MCV)Ordered By: Dr. Cannon on 01-07-2023 MCV (RBC) [Entitic vol] 102.5 fL 80-94 [facility] Hematocrit Auto (Bld) [Volum e fraction]Ordered By: Dr. Cannon on 01-07-2023 Hematocrit (Bld) [Volume fraction] 37.0 % 40-54 [facility] Laboratory - Chemistry and C hemistry - challengeOrdered By: Dr. Cannon on 01-07-2023 CO2 [Moles/Vol] 24.0 mmol/L 21.0-32.0 [facility] Urea nitrogen/Creatinine [Mass ratio] 27.1 mg/mg 10-20 [facility] Laboratory - Hematology and Cell countsOrdered By: Dr. Cannon on 01-07-2023 Erythrocyte distribution width (RBC) [Entitic vol] 47.9 fL 35.1-43.9 [facility] Erythrocyte distribution width (RBC) [Ratio] 12.8 % 11.6-14.6 [facility] Immature granulocytes/100 WBC (Bld) 1.100 % 0.0-0.9 [facility] Comment on above: IG% - Immature Granu locytes (promyelocytes, myelocytes and metamyelocytes) > 1% indicates that a LEFT SHIFT is Present. MCH (RBC) [Entitic mass] 33.5 pg 27.0-32.0 [facility] Nucleated RBC/100 WBC (Bld) [Ratio] 0 % 0-5 [facility] MCHC Auto (RBC) [Mass/Vol]Or dered By: Dr. Cannon on 01-07-2023 MCHC (RBC) [Mass/Vol] 32.7 g/dL 32-36 [facility] No Panel InformationOrdered By: Dr. Cannon on 01-07-2023 Estimated Creatinine Clearance Calc 52.95 ml/min [facility] Estimated GFR (MDRD) Amer 242 mL/min >60 [facility] Comment on above: GFR Calc Estimated GFR (MDRD) Non-Af Amer 200 mL/min >60 [facility] Comment on above: Non- GFR Calc Platelets bldOrdered By: Dr. Cannon on 01-07-2023 Platelets (Bld) [#/Vol] 132 10*3/uL 150-450 [facility] Serum or plasma calcium minda urement (mass/volume)Ordered By: Dr. Cannon on 01-07-2023 Calcium [Mass/Vol] 8.8 mg/dL 8.5-10.1 [facility] Serum or plasma creatinine m easurement (mass/volume)Ordered By: Dr. Cannon on 01-07-2023 Creatinine [Mass/Vol] 0.44 mg/dL 0.70-1.30 [facility] Comment on above: The validity of the calculated GFR & GFRAA in patients over 70 years has not been determined. Clinical correlation is essential. Serum or plasma urea nitroge n measurement (mass/volume)Ordered By: Dr. Cannon on 01-07-2023 Urea nitrogen [Mass/Vol] 12 mg/dL 7-18 [facility] Thin prep Papanicolaou smear with manual screeningOrdered By: Dr. Cannon on 01-07-2023 Thin prep Papanicolaou smear with manual screening 6 5-15 [facility] Basophil percentageOrdered B y: Dr. Cannon on 01-06-2023 Basophil percentage 2.2 mg/dL 2.5-4.9 [facility] - Chemistry and C hemistry - challengeOrdered By: Dr. Cannon on 01-06-2023 Magnesium [Mass/Vol] 2.0 mg/dL 1.6-2.6 [facility] Basophil percentageOrdered B y: Dr. Hooper on 01-05-2023 Bilirubin [Mass/Vol] 0.30 mg/dL 0.20-1.00 [facility] Comment on above: For patients on eltr ombopag therapy, use of [place] TBIL is not recommended. Protein [Mass/Vol] 5.5 g/dL 6.4-8.2 [facility] Laboratory - Chemistry and C hemistry - challengeOrdered By: Dr. Hooper on 01-05-2023 ALP [Catalytic activity/Vol] 48 U/L 45-117 [facility] ALT [Catalytic activity/Vol] 8 U/L 16-61 [facility] Globulin (S) [Mass/Vol] 3.0 g/dL 2.2-4.2 [facility] No Panel InformationOrdered By: Dr. Hooper on 01-05-2023 Valproic Acid (Depakene) Level 57 ug/mL 50-100 [facility] Serum or plasma albumin minda urement (mass/volume)Ordered By: Dr. Hooper on 01-05-2023 Albumin [Mass/Vol] 2.5 g/dL 3.2-5.0 [facility] Serum or plasma albumin/glob ulin mass ratioOrdered By: Dr. Hooper on 01-05-2023 Albumin/Globulin [Mass ratio] 0.8 {ratio} 0.9-2.4 [facility] Thin prep Papanicolaou smear with manual screeningOrdered By: Dr. Hooper on 01-05-2023 Thin prep Papanicolaou smear with manual screening 15 U/L 15-37 [facility] Basophil percentageOrdered B y: Dr. Malik on 01-04-2023 Basophil percentage 0 SEEN /hpf 0-5 [facility] Bilirubin Test strip Ql (U)O rdered By: Dr. Malik on 01-04-2023 Bilirubin Ql (U) Negative Negative [facility] INR in Blood by Coagulation assayOrdered By: Dr. Malik on 01-04-2023 INR Coag (Bld) [Relative time] 1.0 {INR} [facility] Ketones Test strip Ql (U)Ord ered By: Dr. Malik on 01-04-2023 Ketones Ql (U) 5 mg/dl Negative [facility] Laboratory - Chemistry and C hemistry - challengeOrdered By: Dr. Malik on 01-04-2023 Cobalamin (Vitamin B12) [Mass/Vol] 504 pg/mL 211-911 [facility] CK [Catalytic activity/Vol] 50 U/L 39-308 [facility] Laboratory - CoagulationOrde red By: Dr. Malik on 01-04-2023 aPTT Coag (Bld) [Time] 24.4 s 24.1-36.2 [facility] PT Coag (PPP) [Time] 12.9 s 11.7-14.9 [facility] Mucus LM Ql (Urine sed)Order ed By: Dr. Malik on 01-04-2023 Mucus Ql (Urine sed) 0 SEEN /hpf [facility] Nitrite Test strip Ql (U)Ord ered By: Dr. Malik on 01-04-2023 Nitrite Ql (U) Negative Negative [facility] No Panel InformationOrdered By: Dr. Malik on 01-04-2023 Thyroid Stimulating Hormone (TSH) 3.10 uIU/mL 0.358-3.74 [facility] Troponin I High Sensitivity 6 pg/mL 3.0-78.0 [facility] Comment on above: Please Note: New Janice t Units and Gender Specific Reference Ranges. For more information see Policy Stat [place] High Sensitivity Troponin (TNIH) and attachments. Protein Test strip Ql (U)Ord ered By: Dr. Malik on 01-04-2023 Protein Ql (U) Negative Negative [facility] Serum or plasma folate measu rement (mass/volume)Ordered By: Dr. Malik on 01-04-2023 Folate [Mass/Vol] 9.80 ng/mL 3.1-55.4 [facility] Squamous epithelial cells de tection in urine sediment by light microscopyOrdered By: Dr. Malik on 01-04-2023 Epithelial cells.squamous LM Ql (Urine sed) 0 SEEN /hpf 0-5 [facility] Urine blood detectionOrdered By: Dr. Malik on 01-04-2023 RBC Ql (U) Negative Negative [facility] RBC Ql (U) 0 SEEN /hpf 0-5 [facility] Urine clarityOrdered By: Dr. Malik on 01-04-2023 Clarity (U) Clear Clear [facility] Urine color determinationOrd ered By: Dr. Malik on 01-04-2023 Color (U) Yellow Yellow [facility] Urine glucose detectionOrder ed By: Dr. Malik on 01-04-2023 Glucose Ql (U) Normal mg/dl Normal [facility] Urine leukocyte esterase det ection by dipstickOrdered By: Dr. Malik on 01-04-2023 Leukocyte esterase Test strip Ql (U) Negative Negative [facility] Urine pHOrdered By: Dr. Judd ne on 01-04-2023 pH (U) 8.0 [pH] 5.0 - 8.0 [facility] Urine sediment bacteria coun t by microscopy (number/high power field)Ordered By: Dr. Malik on 01-04-2023 Bacteria LM.HPF (Urine sed) [#/Area] 0 /[HPF] None Seen [facility] Urine specific gravity measu rementOrdered By: Dr. Malik on 01-04-2023 Specific gravity (U) [Rel density] 1.010 1.002-1.03 0 [facility] Urobilinogen Auto test strip Ql (U)Ordered By: Dr. Malik on 01-04-2023 Urobilinogen Ql (U) Normal mg/dl Normal [facility] Absolute lymphocyte countOrd ered By: Dr. Skaggs on 08-11-2022 Lymphocytes Auto (Unsp spec) [#/Vol] 1.27 10*3/uL 0.83-4.51 [facility] Basophil percentageOrdered B y: Dr. Skaggs on 08-11-2022 Basophils/100 WBC (Bld) 0.3 % 0-1 [facility] Chloride [Moles/Vol] 106 mmol/L 98-107 [facility] Eosinophils/100 WBC (Bld) 0.2 % 0-5 [facility] Glucose [Mass/Vol] 131 mg/dL 74-106 [facility] Comment on above: Fasting Glucose resu lt greater than or equal to 126 mg/dL suggests DIABETES MELLITUS per A.D.A. criteria. Neutrophils (Bld) [#/Vol] 11.5 10*3/uL 2.0-7.7 [facility] Neutrophils/100 WBC (Bld) 80.3 % 47-70 [facility] Potassium [Moles/Vol] 3.6 mmol/L 3.5-5.1 [facility] Sodium [Moles/Vol] 141 mmol/L 136-145 [facility] WBC (Bld) [#/Vol] 14.3 10*3/uL 4.4-11.0 [facility] Blood erythrocytes count (nu mber/volume)Ordered By: Dr. Skaggs on 08-11-2022 RBC (Bld) [#/Vol] 4.87 10*6/uL 4.6-6.2 [facility] Blood hemoglobin measurement (mass/volume)Ordered By: Dr. Skaggs on 08-11-2022 Hemoglobin (Bld) [Mass/Vol] 15.6 g/dL 13.0-16.5 [facility] Blood lymphocytes/100 leukoc ytesOrdered By: Dr. Skaggs on 08-11-2022 Lymphocytes/100 WBC (Bld) 8.9 % 19-41 [facility] Blood monocytes/100 leukocyt esOrdered By: Dr. Skaggs on 08-11-2022 Monocytes/100 WBC (Bld) 9.8 % 0-10 [facility] Blood platelet mean volumeOr dered By: Dr. Skaggs on 08-11-2022 Platelet mean volume (Bld) [Entitic vol] 8.8 fL 6.2-12.0 [facility] COVID-19 virus antigen assay Ordered By: Dr. Skaggs on 08-11-2022 SARS-CoV-2 (COVID-19) Ag IA.rapid Ql (Resp) [facility] Determination of erythrocyte mean corpuscular volume (MCV)Ordered By: Dr. Skaggs on 08-11-2022 MCV (RBC) [Entitic vol] 94.5 fL 80-94 [facility] Hematocrit Auto (Bld) [Volum e fraction]Ordered By: Dr. Skaggs on 08-11-2022 Hematocrit (Bld) [Volume fraction] 46.0 % 40-54 [facility] Laboratory - Chemistry and C hemistry - challengeOrdered By: Dr. Skaggs on 08-11-2022 CO2 [Moles/Vol] 24.0 mmol/L 21.0-32.0 [facility] Urea nitrogen/Creatinine [Mass ratio] 11.9 mg/mg 10-20 [facility] Laboratory - Drug toxicology Ordered By: Dr. Skaggs on 08-11-2022 Amphetamines Ql (U) Negative <1000 ng/mL [facility] Benzodiazepines Ql (U) Negative < 200 ng/mL [facility] Cannabinoids Screen Ql (U) Negative < 50 ng/mL [facility] Cocaine Ql (U) Negative < 300 ng/mL [facility] Opiates Ql (U) Negative < 300 ng/mL [facility] Laboratory - Hematology and Cell countsOrdered By: Dr. Skaggs on 08-11-2022 Erythrocyte distribution width (RBC) [Entitic vol] 43.3 fL 35.1-43.9 [facility] Erythrocyte distribution width (RBC) [Ratio] 12.5 % 11.6-14.6 [facility] Immature granulocytes/100 WBC (Bld) 0.500 % 0.0-0.9 [facility] Comment on above: IG% - Immature Granu locytes (promyelocytes, myelocytes and metamyelocytes) > 1% indicates that a LEFT SHIFT is Present. MCH (RBC) [Entitic mass] 32.0 pg 27.0-32.0 [facility] Nucleated RBC/100 WBC (Bld) [Ratio] 0 % 0-5 [facility] MCHC Auto (RBC) [Mass/Vol]Or dered By: Dr. Skaggs on 08-11-2022 MCHC (RBC) [Mass/Vol] 33.9 g/dL 32-36 [facility] No Panel InformationOrdered By: Dr. Skaggs on 08-11-2022 MDMA (Ecstasy) Screen Negative < 500 ng/mL [facility] Urine Barbiturates Screen Negative < 200 ng/mL [facility] Urine Drug Screen Comment [facility] Comment on above: CONFIRMATORY TESTING [...] Urine Methadone Screen Negative < 300 ng/mL [facility] Estimated Creatinine Clearance Calc 53.21 ml/min [facility] Estimated GFR (MDRD) Amer 93 mL/min >60 [facility] Comment on above: GFR Calc Estimated GFR (MDRD) Non-Af Amer 77 mL/min >60 [facility] Comment on above: Non- GFR Calc Ethyl Alcohol Level < 3.0 mg/dL [facility] Comment on above: The serum:whole bloo d ethanol ratio is approximately 1.14and varies slightly with hematocrit. Medical Alcohol reference interval and critical value innon-tolerant individuals; 50 - 100 Impairment 100 Intoxication 100 - 250 Severe Poisoning 250 - 400 Deep/possible fatal coma Platelets bldOrdered By: Dr. Skaggs on 08-11-2022 Platelets (Bld) [#/Vol] 205 10*3/uL 150-450 [facility] Serum or plasma calcium minda urement (mass/volume)Ordered By: Dr. Skaggs on 08-11-2022 Calcium [Mass/Vol] 9.3 mg/dL 8.5-10.1 [facility] Serum or plasma creatinine m easurement (mass/volume)Ordered By: Dr. Skaggs on 08-11-2022 Creatinine [Mass/Vol] 1.01 mg/dL 0.70-1.30 [facility] Comment on above: The validity of the calculated GFR & GFRAA in patients over 70 years has not been determined. Clinical correlation is essential. Serum or plasma urea nitroge n measurement (mass/volume)Ordered By: Dr. Skaggs on 08-11-2022 Urea nitrogen [Mass/Vol] 12 mg/dL 7-18 [facility] Thin prep Papanicolaou smear with manual screeningOrdered By: Dr. Skaggs on 08-11-2022 Thin prep Papanicolaou smear with manual screening 11 5-15 [facility] Urine phencyclidine (PCP) de tectionOrdered By: Dr. Skaggs on 08-11-2022 Phencyclidine Ql (U) Negative < 25 ng/mL [facility] CNOVon 07-31-2022 CNOV Office Visit (GENDARLENES ) ANJEL ROSS ([id number]) 1950 M NFR Date Time Provider Department 07/31/22 9:15 AM MATEO BENTON During your visit today, we recorded the following information about you: Mateo Benton III, MD 07/31/2022 9:27 AM Signed Subjective: Patient is status post a colonoscopy completed at [facility] on 07/06/2022. Patient was noted [...] in 5 years. Referring Provider: MATEO BENTON [[id number]] Allergies As of Date: 07/31/2022 Noted Allergy [...] mg by mouth daily at bedtime. - Heine-2-SMF-EPA-Fish Oil 1,000 mg (120 mg-180 mg) cap [...] - wit (more content not included)... Normal [facility] Sophie 07-14-2022 CNPN Telephone (GENS) CODYANJEL FINLEY ([id number]) 1950 M NFR Date Time Provider Department 07/14/22 MATEO BENTON [facility] During your visit today, we recorded the following information about you: Silvia Robby [facility] 07/14/2022 1:06 PM Signed Patient called requesting results from colonoscopy. Elizabeth Ruth LPN 07/14/2022 1:27 PM Signed Please call patient to schedule a virtual or office visit to view colonoscopy results. Thank you. Anjel# [phone] Georgie Alatorre [facility] 07/14/2022 2:36 PM Addendum They will call back to schedule.Georgie Alatorre [facility] Allergies As of Date: 07/14/2022 Noted Allergy Reaction ASA (SALICYLATES) 06/13/2005 NICKEL 01/16/2013 2 - Rash TRILEPTAL (OXCARBAZEPINE) 06/13/2005 Date Reviewed: 04/27/2022 Reviewed by: Madelni Ferguson PA-C - Fully Assessed Reason for [...] mg by mouth daily at bedtime. - Ukbgy-5-CVF-EPA-Fish Oil (FISH OIL) 1,000 mg (120 mg-180 [...] initial [Z00.0 (more content not included)... Normal [facility] CNOVon 04-14-2022 CNOV Office Visit (GENSWS ) ANJEL ROSS ([id number]) 1950 M NFR Date Time Provider Department [...] colonoscopy 03/26/[address] Anjel Nagy at [facility]. Patient was noted to have [...] W/COLLJ SPEC WHEN PFRMD 03/25/[address] [facility] - COLSC FLX W/REMOVAL LESION [...] mg by mouth daily at bedtime. - Jzxup-4-RRP-EPA-Fish Oil (FISH OIL) 1,000 mg (120 mg-180 [...] 3-4 ti (more content not included)... [facility] (NE50MN[facility] CODYANJEL ([id number]) 1950 M NFR Date Time Provider Department 03/13/22 ANNIA CHUNG NE50MN During your visit today, we recorded the following information about you: Imani Mejia 03/13/2022 11:11 AM Signed Medication Concern Person Calling Silvia Rehman from [facility] Name of medication Depakote XR. Concern with medication Nurse advised pt is having difficulty swallowing pill and since XR she can't crush. Nurse is asking if can get non XR or liquid so it's not difficult for pt? Patient of Dr. hSeldon Talley, RN 03/13/2022 11:20 AM Signed Recent visit 03/06/22 with Nils MarieROLL UP HELPER: ASSESSMENT: Anjel Wrenerty is a 71 year old male with [...] Fully Assessed Reason for Visit: Medication Question [4718] Cmt: Depakote XR Order(s):valproic acid (DEPAKENE) 250 [...] mg by mouth daily at bedtime. - Ymlnh-4-CJX-EPA-Fish Oil (FISH OIL) 1,000 mg (120 mg-180 [...] 1 tablet (more content not included)... Normal [facility]20[facility] ANJEL ROSS ([id number]) 1950 M NFR Date Time Provider Department [...] mg by mouth daily at bedtime. - Mrxrm-5-QHS-EPA-Fish Oil (FISH OIL) 1,000 mg (120 mg-180 [...] [E88.81] 01/19/2014 (more content not included)... Normal [facility] Vital Signs Date Time Vital Sign Value Performing Clinician Axel herrera 01-31-2025 11:23-0400 Body temperature 97.8 [degF] Dr. Avani Eduardo MD [facility] 01-31-2025 11:23-0400 Heart rate 87 /min Dr. Avani Eduardo MD [facility] 01-31-2025 11:23-0400 Respiratory rate 16 /min Dr. Avani Eduardo MD [facility] 01-31-2025 11:23-0400 SaO2% (BldA) [Mass fraction] 96 % Dr. Avani Eduardo MD [facility] 11-01-2024 10:46-0500 Body temperature 97.7 [degF] Out [facility] 11-01-2024 10:46-0500 Diastolic blood pressure 73 mm[Hg] [facility] 11-01-2024 10:46-0500 Heart rate 74 /min [facility] 11-01-2024 10:46-0500 Respiratory rate 16 /min [facility] 11-01-2024 10:46-0500 SaO2% (BldA) [Mass fraction] 95 % [facility] 11-01-2024 10:46-0500 Systolic blood pressure 134 mm[Hg] [facility] 01-18-2023 14:37-0400 Body temperature 98.2 [degF] Dr. Maddie Cantor [facility] 01-18-2023 14:37-0400 Diastolic blood pressure 65 mm[Hg] Dr. Maddie Cantor [facility] 01-18-2023 14:37-0400 Heart rate 93 /min Dr. Maddie Cantor [facility] 01-18-2023 14:37-0400 Respiratory rate 18 /min Dr. Maddie Cantor [facility] 01-18-2023 14:37-0400 SaO2% (BldA) [Mass fraction] 94 % Dr. Maddie Cantor [facility] 01-18-2023 14:37-0400 Systolic blood pressure 114 mm[Hg] Dr. Maddie Cantor [facility] 01-18-2023 02:19-0400 Body mass index (BMI) [Ratio] 35.9 kg/m2 Dr. Maddie Cantor [facility] 01-18-2023 02:19-0400 Body weight 91.[address] Maddie Cantor [facility] 01-15-2023 11:23-0400 Body height 160.[address] Maddie Cantor [facility] 01-10-2023 09:36-0400 Body temperature 98 [degF] Dr. Maddie Cantor [facility] 01-10-2023 09:36-0400 Diastolic blood pressure 54 mm[Hg] Dr. Maddie Cantor [facility] 01-10-2023 09:36-0400 Heart rate 76 /min Dr. Maddie Cantor [facility] 01-10-2023 09:36-0400 Respiratory rate 16 /min Dr. Maddie Cantor [facility] 01-10-2023 09:36-0400 SaO2% (BldA) [Mass fraction] 97 % Dr. Maddie Cantor [facility] 01-10-2023 09:36-0400 Systolic blood pressure 107 mm[Hg] Dr. Maddie Cantor [facility] 01-10-2023 01:40-0400 Body height 160.[address] Maddie Cantor [facility] 01-10-2023 01:40-0400 Body mass index (BMI) [Ratio] 35.3 kg/m2 Dr. Maddie Cantor [facility] 01-10-2023 01:40-0400 Body weight 90.[address] Maddie Cantor [facility] 01-07-2023 16:25-0400 Body temperature 99 [degF] Dr. Maddie Cantor [facility] 01-07-2023 16:25-0400 Diastolic blood pressure 79 mm[Hg] Dr. Maddie MACIEL [facility] 01-07-2023 16:25-0400 Heart rate 89 /min Dr. Maddie MACIEL [facility] 01-07-2023 16:25-0400 Respiratory rate 16 /min Dr. Maddie Cantor [facility] 01-07-2023 16:25-0400 SaO2% (BldA) [Mass fraction] 98 % Dr. Maddie MACIEL [facility] 01-07-2023 16:25-0400 Systolic blood pressure 114 mm[Hg] Dr. Maddie Cantor [facility] 01-07-2023 12:51-0400 Body mass index (BMI) [Ratio] 37.8 kg/m2 Dr. Maddie Cantor [facility] 01-06-2023 06:00-0400 Body weight 96.[address] Maddie Cantor [facility] 12-31-2022 07:42-0400 Diastolic blood pressure 72 mm[Hg] [facility] 12-31-2022 07:42-0400 Heart rate 69 /min [facility] 12-31-2022 07:42-0400 Respiratory rate 15 /min [facility] 12-31-2022 07:42-0400 SaO2% (BldA) [Mass fraction] 98 % [facility] 12-31-2022 07:42-0400 Systolic blood pressure 139 mm[Hg] [facility] 12-31-2022 06:02-0400 Body height 160.02 cm [facility] 12-31-2022 06:02-0400 Body mass index (BMI) [Ratio] 34.2 kg/m2 [facility] 12-31-2022 06:02-0400 Body temperature 97.2 [degF] [facility] 12-31-2022 06:02-0400 Body weight 87.7 kg [facility] 11-16-2022 19:04-0500 Diastolic blood pressure 69 mm[Hg] [facility] 11-16-2022 19:04-0500 Heart rate 88 /min [facility] 11-16-2022 19:04-0500 Respiratory rate 16 /min [facility] 11-16-2022 19:04-0500 SaO2% (BldA) [Mass fraction] 97 % [facility] 11-16-2022 19:04-0500 Systolic blood pressure 143 mm[Hg] [facility] 11-16-2022 18:12-0500 Body height 175.26 cm [facility] 11-16-2022 18:12-0500 Body mass index (BMI) [Ratio] 27.6 kg/m2 [facility] 11-16-2022 18:12-0500 Body temperature 98.1 [degF] [facility] 11-16-2022 18:12-0500 Body weight 84.9 kg [facility] 08-12-2022 13:43-0500 Diastolic blood pressure 85 mm[Hg] [facility] 08-12-2022 13:43-0500 Heart rate 75 /min [facility] 08-12-2022 13:43-0500 Respiratory rate 15 /min [facility] 08-12-2022 13:43-0500 SaO2% (BldA) [Mass fraction] 98 % [facility] 08-12-2022 13:43-0500 Systolic blood pressure 132 mm[Hg] [facility] 08-11-2022 14:37-0500 Body height 160.02 cm [facility] Work Phone: 08-11-2022 14:37-0500 Body mass index (BMI) [Ratio] 37.2 kg/m2 [facility] 08-11-2022 14:37-0500 Body temperature 97.6 [degF] [facility] 08-11-2022 14:37-0500 Body weight 95.25 kg [facility] 07-06-2022 17:01-0400 Body temperature 97.6 [degF] [facility] Work Phone: 07-06-2022 17:01-0400 Diastolic blood pressure 69 mm[Hg] [facility] Work Phone: 07-06-2022 17:01-0400 Heart rate 71 /min [facility] Work Phone: 07-06-2022 17:01-0400 Respiratory rate 18 /min [facility] Work Phone: 07-06-2022 17:01-0400 SaO2% (BldA) [Mass fraction] 97 % [facility] Work Phone: 07-06-2022 17:01-0400 Systolic blood pressure 126 mm[Hg] [facility] Work Phone: 07-06-2022 11:41-0400 Body height 160.02 cm [facility] Work Phone: 07-06-2022 11:41-0400 Body mass index (BMI) [Ratio] 35.9 kg/m2 [facility] Work Phone: 07-06-2022 11:41-0400 Body weight 92.07 kg [facility] Work Phone: Encounters Encounter Date Encounter Type Care Provider Facility Start: 07-26-2025 ambulatory Avani Eduardo Facility:[facility] Start: 06-26-[address] Avani Eduardo MD [facility] Start: 06-26-2025 End: 06-26-2025 ambulatory Avani MACIEL Facility:[facility] Start: 06-12-2025 ambulatory Avani MACIEL Facili ty:[facility] Start: 06-12-[address] Avani Eduardo MD [facility] Start: 06-05-2025 ambulatory Avani MACIEL Facili ty:[facility] Start: 06-05-[address] Avani Eduardo MD -[facility] Start: 05-29-2025 End: 05-29-[address] Avani Eduardo MD [facility] Start: 05-29-2025 End: 05-29-[address] Avani Eduardo MD -[facility] Start: 05-29-2025 End: 05-29-2025 ambulatory Avani MACIEL Facility:[facility] Start: 05-08-2025 End: 05-08-[address] Avani Eduardo MD -[facility] Start: 05-08-2025 End: 05-08-[address] Avani Eduardo MD [facility] Start: 05-08-2025 End: 05-08-2025 ambulatory [facility] [place] [facility] Facility:[facility] Start: 05-01-2025 ambulatory [facility] [place] Facility:[facility] Start: 05-01-[address] Avani Eduardo MD -[facility] Start: 04-24-[address] Avani Eduardo MD [facility] Start: 04-24-2025 End: 04-24-2025 ambulatory [facility] [place] Facility:[facility] Start: 04-03-[address] Avani Eduardo MD [facility] Start: 04-03-2025 End: 04-03-2025 ambulatory [facility] [place] Facility:[facility] Start: 02-28-2025 ambulatory [facility] [place] Facility:[facility] Start: 02-28-[address] Avani Eduardo MD [facility] Start: 02-13-2025 Non-patient / Non-visit Dr. Eris gracia MD -[facility] Start: 02-13-2025 End: 02-13-[address] Avani Eduardo MD [facility] Work Phone: Start: 02-13-2025 End: 02-13-2025 Patient encounter procedure Kourtney SUERO -[facility] Work Phone: Start: 02-13-2025 End: 02-13-2025 ambulatory [facility] [place] Facility:[facility] Start: 02-01-2025 End: 02-01-[address] Avani Eduardo MD -[facility] Start: 02-01-[address] Avani Eduardo MD -[facility] Start: 01-31-2025 End: 01-31-2025 Patient encounter procedure Kourtney SUERO -[facility] Work Phone: Start: 01-31-2025 End: 02-01-2025 ambulatory Avanigómez Eduardo Facility:[facility] Start: 01-05-2025 End: 01-05-[address] Avani Eduardo MD -[facility] Start: 01-05-2025 End: 01-05-2025 ambulatory Avani [facility] Facility:[facility] Start: 01-03-2025 End: 01-03-[address] Avani Eduardo MD -[facility] Start: 01-02-2025 End: 01-03-2025 ambulatory Avanigómez Eduardo Facility:[facility] Start: 01-02-[address] Avani Eduardo MD [facility] Start: 12-06-2024 End: 12-06-2024 ambulatory Out of Town Doctor [facility] Work Phone: Start: 12-06-2024 End: 12-06-[address] Avani Eduardo MD -[facility] Start: 12-06-2024 End: 12-06-2024 ambulatory Avanigómez Eduardo Facility:[facility] Start: 11-01-2024 End: 11-01-2024 Patient encounter procedure Kourtney SUERO [facility] Work Phone: Start: 11-01-2024 End: 11-01-2024 ambulatory Avani Eduardo Facility:[facility] Start: 10-05-2024 End: 10-05-[address] Avani Eduardo MD -[facility] Start: 10-05-2024 End: 10-05-2024 ambulatory Avanigómez Eduardo Facility:[facility] Start: 09-29-2024 End: 09-29-[address] Avani Eduardo MD -[facility] Start: 09-29-2024 End: 09-29-2024 ambulatory Avani Eduardo [facility] Facility:[facility] Start: 04-24-2024 End: 04-24-2024 ambulatory STANTON ANDREWS Not Available Start: 03-27-2024 End: 03-27-2024 ambulatory STANTON ANDREWS Not Available Start: 03-14-2024 End: 03-14-2024 ambulatory STANTON ANDREWS Not Available Start: 01-10-2024 End: 01-10-2024 ambulatory [facility] Work Phone: Start: 01-10-2024 End: 01-10-2024 Departed Referred [facility] Start: 01-10-2024 Registered Referred [facility] Start: 01-03-2024 End: 01-03-2024 ambulatory [facility] Work Phone: Start: 01-03-2024 End: 01-03-2024 Departed Referred [facility] Start: 12-15-2023 End: 12-15-2023 ambulatory [facility] Work Phone: Start: 12-15-2023 End: 12-15-2023 Departed Referred [facility] Start: 11-04-2023 End: 11-04-2023 ambulatory [facility] Work Phone: Start: 11-04-2023 End: 11-04-2023 Departed Referred [facility] Start: 11-04-2023 Registered Referred [facility] Start: 10-20-2023 End: 10-20-2023 ambulatory [facility] Work Phone: Start: 10-20-2023 End: 10-20-2023 Departed Referred [facility] Start: 10-11-2023 End: 10-11-2023 ambulatory [facility] Work Phone: Start: 10-11-2023 End: 10-11-2023 Departed Referred [facility] Start: 10-11-2023 Registered Referred [facility] Start: 10-05-2023 End: 10-05-2023 ambulatory [facility] Work Phone: Start: 10-05-2023 End: 10-05-2023 Departed Referred [facility] Start: 10-05-2023 Registered Referred [facility] Start: 09-22-2023 End: 09-22-2023 ambulatory [facility] Work Phone: Start: 09-22-2023 End: 09-22-2023 Departed Referred [facility] Start: 09-22-2023 Registered Referred [facility] Start: 09-16-2023 End: 09-16-2023 ambulatory STANTON ANDREWS Not Available Start: 09-13-2023 End: 09-13-2023 ambulatory [facility] Work Phone: Start: 09-13-2023 End: 09-13-2023 Departed Referred [facility] Start: 08-30-2023 End: 08-30-2023 ambulatory [facility] Work Phone: Start: 08-30-2023 End: 08-30-2023 Departed Referred [facility] Start: 08-23-2023 End: 08-23-2023 ambulatory [facility] Work Phone: Start: 08-23-2023 End: 08-23-2023 Departed Referred [facility] Start: 08-23-2023 Registered Referred [facility] Start: 05-24-2023 End: 05-24-2023 ambulatory [facility] Work Phone: Start: 05-24-2023 End: 05-24-2023 Departed Referred [facility] Start: 02-16-2023 Registered Referred [facility] Start: 02-09-2023 End: 02-09-2023 Departed Referred [facility] Start: 02-05-2023 End: 02-05-2023 Departed Referred [facility] Start: 01-18-2023 Non-patient / Non-visit Dr. Nelson MACIEL [facility] Start: 01-17-2023 Non-patient / Non-visit Dr. Nelson MACIEL [facility] Start: 01-16-2023 Non-patient / Non-visit Dr. Nelson MACIEL [facility] Start: 01-15-2023 Non-patient / Non-visit Dr. Nelson MACIEL [facility] Start: 01-14-2023 Non-patient / Non-visit Dr. Nelson MACIEL [facility] Start: 01-13-2023 Non-patient / Non-visit Dr. Nelson MACIEL [facility] Start: 01-12-2023 Non-patient / Non-visit Dr. Nelson MACIEL [facility] Start: 01-11-2023 Non-patient / Non-visit Dr. Nelson MACIEL [facility] Start: 01-10-2023 End: 01-18-2023 Evaluation and management of inpatient Dr. Maddie MACIEL [facility] 3 Start: 01-10-2023 End: 01-18-[address] Maddie Cantor [facility] Work Phone: Start: 01-08-2023 End: 01-09-2023 Evaluation and management of inpatient MADDIE CANTOR Facility:[facility] Start: 01-07-2023 Non-patient / Non-visit Dr. Nelson MACIEL [facility] Start: 01-06-2023 Non-patient / Non-visit Dr. Nelson MACIEL [facility] Start: 01-05-2023 Non-patient / Non-visit Dr. Nelson MACIEL [facility] Start: 01-04-2023 Non-patient / Non-visit Dr. Nelson MACIEL [facility] [place] Start: 01-04-2023 End: 01-07-2023 Evaluation and management of inpatient Dr. Maddie MACIEL [facility] Start: 12-31-2022 End: 12-31-2022 Emergency department patient visit [facility] Start: 11-16-2022 End: 11-16-2022 Emergency department patient visit [facility] Start: 09-29-2022 Refill Annia telles MD Work Phone: Neurology Comment on above: Refill Request Start: 08-11-2022 End: 08-12-2022 Emergency department patient visit [facility] Start: 07-31-2022 End: 07-31-2022 ambulatory MATEO BENTON Facility:[facility] Start: 07-31-2022 End: 07-31-2022 Patient encounter procedure Mateo Benton MD Work Phone: General Surgery Comment on above: Personal history of colon cancer (Primary Dx); History of colonic polyps Start: 07-14-2022 Telephone encounter Mateo crowder MD Work Phone: General Surgery Comment on above: Results Start: 07-06-2022 End: 07-06-2022 Admission to same day surgery center [facility] Start: 07-06-2022 End: 07-06-2022 ambulatory [facility] Work Phone: Start: 04-14-2022 End: 04-14-2022 ambulatory MADELIN PHYLLIS Facility:[facility] Start: 03-13-2022 Telephone encounter Annia joe MD Work Phone: Neurology Comment on above: Medication Question (Depakote XR) Start: 03-06-2022 End: 03-10-2022 Telemedicine consultation with patient Nils Marie APRN.ROLL UP HELPER Work Phone: [facility] Start: 03-06-2022 End: 03-10-2022 ambulatory Nils Marie APRN.ROLL UP HELPER Work Phone: Neurology Comment on above: 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 Ruiz MACIEL Start: 01-10-2023 Plain chest X-ray Dr. Ruiz MACIEL Start: 01-05-2023 MRI of brain without contrast Dr. Maddie MACIEL Start: 01-05-2023 MRI of cervical spine D leo MACIEL Start: 01-04-2023 CT of head without contrast Dr. Maddie MACIEL Start: 01-04-2023 Plain chest X-ray Dr. Ruiz MACIEL Start: 12-31-2022 CT of head without contrast Start: 12-31-2022 X-ray of lumbar spin e, two or three views Start: 07-06-2022 Colonoscopy Start: 03-26-2017 Colonoscopy Miquel ruano APRN.ROLL UP HELPER Work Phone: Bacteria identified in Urine by Culture Dr. Maddie MACIEL Urine culture Dr. Maddie MACIEL Viral antigen assay Viral antigen assay Plan of Treatment Date Care Activity Detail Author Start: 07-26-2025 Registered Referred Registered Refer [facility] Start: 04-14-2023 BP CONTROLLED (<130/80) BP CONTROLLE D (<130/80) [facility] Start: 03-18-2023 DIABETES SCREEN DIABETES SCREEN [facility] Start: 01-18-2023 Patient discharge [facility] Start: 01-17-2023 [facility] Start: 01-16-2023 Speech therapy assessment [facility] Start: 01-15-2023 [facility] Start: 01-12-2023 Following clinical pathway protocol [facility] Start: 01-10-2023 Fall prevention [facility] Start: 01-10-2023 Provision of activit y privileges [facility] Start: 01-10-2023 Assessment of risk o f venous thromboembolism [facility] Start: 01-10-2023 Insertion of cathete r into peripheral vein [facility] Start: 01-10-2023 Providing care accor ding to [facility] Start: 01-10-2023 Referral to service [facility] Start: 01-10-2023 [facility] Start: 01-10-2023 Following clinical pathway protocol [facility] Start: 01-10-2023 Referral to occupati onal therapist [facility] Start: 01-10-2023 Referral to [facility] Start: 01-10-2023 Admission procedure [facility] Start: 01-10-2023 Patient referral to dietitian [facility] Start: 01-07-2023 Patient discharge [facility] Start: 01-05-2023 Speech therapy assessment [facility] Start: 01-04-2023 Following clinical pathway protocol [facility] Start: 01-04-2023 Provision of activit y privileges [facility] Start: 01-04-2023 Aspiration precautions [facility] Start: 01-04-2023 Assessment of risk o f venous thromboembolism [facility] Start: 01-04-2023 Fall prevention [facility] Start: 01-04-2023 Insertion of cathete r into peripheral vein [facility] Start: 01-04-2023 Introduction of urin dinora catheter [facility] Start: 01-04-2023 Measuring intake and output [facility] Start: 01-04-2023 Providing care accor ding to [facility] Start: 01-04-2023 Referral to occupati onal therapist [facility] Start: 01-04-2023 Referral to [facility] Start: 01-04-2023 Application of elast ic bandage [facility] Start: 01-04-2023 Continuous positive airway pressure ventilation treatment [facility] Start: 01-04-2023 Elevation of affecte d extremity [facility] Start: 01-04-2023 Neurological assessment [facility] Start: 01-04-[address] [facility] Start: 01-04-2023 End: 01-04-2023 [facility] Start: 01-04-2023 Admission procedure [facility] Start: 10-04-2022 ADVANCE DIRECTIVE DISCUSSION ADVANCE DIRECTIVE DISCUSSION [facility] Start: 08-11-2022 Referral to service [facility] Start: 08-11-2022 End: 08-11-2022 Suicide precautions [facility] Start: 07-06-2022 Colsc flx w/rmvl of tumor polyp lesion snare tq COLONOSCOPY W/LESION REMOVAL [facility] Work Phone: Start: 07-06-2022 Patient discharge [facility] Work Phone: Start: 06-27-2022 COVID-19 VACCINE (4 - Booster for Moderna series) COVID-19 VACCINE (4 - Booster for Moderna series) [facility] Start: 06-04-2022 Influenza vaccination C [facility] Start: 04-21-2022 COVID-19 VACCINE (4 - Booster for Moderna series) COVID-19 VACCINE (4 - Booster for Moderna series) [facility] Start: 03-10-2022 End: 05-10-2022 Comprehensive metabolic 2000 panel - Serum or Plasma COMP METABOLIC PANEL Lab Routine 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) Expected: 03/10/2022, Expires: 05/10/2022 [facility] Work Phone: Comment on above: Expected: 03/10/2022 , Expires: 05/10/2022 Start: 03-10-2022 End: 05-10-2022 levETIRAcetam [Mass/volume] in Serum or Plasma LEVETIRACETAM Lab Routine 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) Expected: 03/10/2022, Expires: 05/10/2022 [facility] Work Phone: Comment on above: Expected: 03/10/2022 , Expires: 05/10/2022 Start: 03-10-2022 End: 05-10-2022 VALPROIC A/DEPAKENE VALPROIC A/DEPAKENE Lab Routine 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) Expected: 03/10/2022, Expires: 05/10/2022 [facility] Work Phone: Comment on above: Expected: 03/10/2022 , Expires: 05/10/2022 Start: 10-04-2021 ADVANCE DIRECTIVE DISCUSSION ADVANCE DIRECTIVE DISCUSSION [facility] Start: 11-20-2020 COVID-19 VACCINE (2 - Moderna 3-dose series) COVID-19 VACCINE (2 - Moderna 3-dose series) [facility] Start: 10-22-2020 LIPID SCREEN LIPID SCREEN [facility] Start: 03-26-2018 Colonoscopy COLONOSCOPY [facility] Start: 03-26-2018 COLORECTAL CANCER SCREENING COLORECTAL CANCER SCREENING [facility] Start: 09-19-2016 FECAL OCCULT BLOOD FECAL OCCULT BLOO D [facility] Start: 11-02-2015 PNEUMOCOCCAL: 65+ (#3) PNEUMOCOCCAL: 65+ (#3) [facility] Start: 11-02-2015 PNEUMOCOCCAL: 65+ (2 - PPSV23 or PCV20) PNEUMOCOCCAL: 65+ (2 - PPSV23 or PCV20) [facility] Start: 07-30-2015 SHINGRIX VACCINE (2 of 3) PALMA GRIX VACCINE (2 of 3) [facility] Start: 2014 PNEUMOVAX AGE 65 AND OVER WITH 5YR LOOKBACK (#1) PNEUMOVAX AGE 65 AND OVER WITH 5YR LOOKBACK (#1) [facility] Start: 06-06-2006 Urine microalbumin profile DTAP,TDAP,TD (1 - Tdap) [facility] Start: 1994 COLOGUARD (FIT-DNA) COLOGUARD (FIT-D NA) [facility] Start: [address] COLONOGRAPHY [facility] Start: 1994 SIGMOIDOSCOPY SIGMOIDOSCOPY [facility] Start: 1967 ANNUAL PCP TEAM VICE PRESIDENT OF COMMUNICATIONS RODNEY DISEASE VISIT ANNUAL PCP TEAM CHRONIC DISEASE VISIT [facility] Start: 1967 BP CONTROLLED (<130/80) BP CONTROLLE D (<130/80) [facility] Start: 1967 HEPATITIS C SCREENING HEPATITIS C SC BARRETT [facility] Patient Education [facility] Work Phone: Patient referral [facility] Work Phone: [facility] Immunizations Immunization Date Immunization Notes Care Provider Fa shericeroxana 07-21-2022 influenza, injectabl e, quadrivalent, preservative free [facility] 07-21-2022 influenza, seasonal, injectable Dr. Maddie Cantor [facility] 02-24-2022 Covid (Moderna) Dr. Maddie Cantor [facility] 11-18-2020 Covid (Moderna) Dr. Maddie Cantor [facility] 10-23-2020 Covid (Moderna) Dr. Maddie Cantor [facility] 07-26-2015 influenza, high dose seasonal, preservative-free Miquel Obrgeon EXPLOSIVE ORDNANCE HANDLER.ROLL UP HELPER Work Phone: [facility] 06-04-2015 zoster vaccine, live Miquel guthrie EXPLOSIVE ORDNANCE HANDLER.ROLL UP HELPER Work Phone: [facility] 11-02-2014 pneumococcal conjuga te vaccine, 13 valent Miquel Obregon EXPLOSIVE ORDNANCE HANDLER.ROLL UP HELPER Work Phone: [facility] 08-04-2014 Influenza virus vaccine [facility] 08-02-2014 influenza, seasonal, injectable Miquel Obregon EXPLOSIVE ORDNANCE HANDLER.ROLL UP HELPER Work Phone: [facility] 07-14-2013 influenza virus vacc ine, unspecified formulation Miquel Obregon EXPLOSIVE ORDNANCE HANDLER.ROLL UP HELPER Work Phone: [facility] 06-05-2006 tetanus and diphther ia toxoids, adsorbed, preservative free, for adult use (2 Lf of tetanus toxoid and 2 Lf of diphtheria toxoid) Miquel Obregon EXPLOSIVE ORDNANCE HANDLER.ROLL UP HELPER Work Phone: [facility] 07-30-2005 influenza virus vacc ine, unspecified formulation Miquel Obregon EXPLOSIVE ORDNANCE HANDLER.ROLL UP HELPER Work Phone: [facility] Work Phone: 06-13-2005 tetanus and diphther ia toxoids, adsorbed, preservative free, for adult use (2 Lf of tetanus toxoid and 2 Lf of diphtheria toxoid) Miquel Obregon EXPLOSIVE ORDNANCE HANDLER.ROLL UP HELPER Work Phone: [facility] Work Phone: 09-11-1997 pneumococcal polysaccharide vaccine, 23 valent Miquel Obregon EXPLOSIVE ORDNANCE HANDLER.ROLL UP HELPER Work Phone: [facility] Work Phone: Payers Date Payer Category Payer Unknown [id number] 2024 Self-pay [id number] 2024 Unknown [id number] 2023 Medicare [id number] 2017 Medicaid UHC MEDICAID MYC ARE UHC MEDICAID [id number] 2017-Present [phone] [address] [place] [address] Medicaid [id number] 2017 Medicaid UHC MEDICAID MYC ARE UHC MEDICAID [id number] 2017-Present [phone] [address] [place] [address] Medicaid [id number] 2017 Medicare [id number] 2017 Unknown [id number] 1950 Unknown [id number] 2.16.840.1.247731.3.579.2.1259 1950 Unknown [id number] 2.16.840.1.196925.3.579.2.1259 1950 Unknown [id number] 2.16.840.1.047058.3.579.2.1259 1950 Unknown [id number] 2.16.840.1.256533.3.579.2.1259 Medicare [id number] Medicare MEDICARE PART A B [id number] Unknown [id number] 2.16.840.1.547030.3.579.2.462 Unknown [id number] 2.16.840.1.160863.3.579.2.462 Unknown [id number] 2.16.840.1.798882.3.579.2.462 Unknown [id number] 2.16.840.1.600861.3.579.2.462 Unknown [id number] 2.16.840.1.018202.3.579.2.462 Unknown [id number] 2.16.840.1.016115.3.579.2.462 Unknown [id number] 2.16.840.1.520120.3.579.2.462 Unknown [id number] 2.16.840.1.658591.3.579.2.462 Unknown [id number] 2.16.840.1.406665.3.579.2.462 Unknown [id number] 2.16.840.1.799233.3.579.2.462 Unknown [id number] 2.16.840.1.346692.3.579.2.462 Unknown [id number] 2.16.840.1.303523.3.579.2.462 Unknown [id number] 2.16.840.1.665003.3.579.2.462 Unknown [id number] 2.16.840.1.557112.3.579.2.462 Unknown [id number] 2.16.840.1.825615.3.579.2.462 Unknown [id number] 2.16.840.1.652451.3.579.2.462 Unknown [id number] 2.16.840.1.551539.3.579.2.462 Unknown [id number] 2.840.1.358033.3.579.2.462 Unknown [id number] 2.16.840.1.142458.3.579.2.462 Unknown [id number] 2.840.1.364922.3.579.2.462 Unknown [id number] 2.0.1.355027.3.579.2.462 Social History Date Type Detail Facility Start: 07-31-2015 End: 01-10-2023 Tobacco smoking status NHIS Never smoked tobacco [facility] Start: 11-11-2020 End: 07-31-2022 Alcohol intake Current non-drinker of alcohol (finding) [facility] Start: 1950 Sex Assigned At Not on file C [facility] Start: 01-17-2022 End: 07-31-2022 Exposure to SARS-CoV-2 (event) Not sure [facility] Start: 07-01-2022 End: 01-10-2023 Tobacco smoking status NHIS Unknown if ever smoked [facility] Start: 04-14-[address] [facility] Start: 07-11-2019 - [facility] Start: 04-14-[address] [facility] Start: 1950 Sex Assigned At Male [facility] Start: 07-31-2015 Tobacco use and exposure Smokeless tobacco non-user [facility] Start: 01-02-2025 Sex Male (finding) [facility] Sex Male [facility] Hospital Goals Date Patient Goal Desired Activity /State Functional Status Date Assessment Result Facility 01-18-[address] [facility] Work Phone: 01-07-2023 Functional status Activity Abili ty With Assist of 1 [facility] Work Phone: 01-06-[address] [facility] Work Phone: Mental Status Date Assessment Result Facility 01-18-2023 Cognitive function Voice/Name [facility] Work Phone: 01-10-2023 Cognitive function Level Of Cons ciousness Awake;Alert;Appropriate;Follow s Commands [facility] Work Phone: 01-07-2023 Cognitive function Voice/Name [facility] Work Phone: 07-06-2022 Cognitive function Drowsy [facility] Work Phone: 07-06-2022 Cognitive function Arousable To Voice/Nam e [facility] Work Phone: Clinical Notes 01-28-2016 to 01-31-2025 Note Date & Type Note Facility 01-31-2025 Evaluation note Diagnosis Onset Date Resolution Bilateral lower extremity edema acute January 31, 2025 11:04am PVD (peripheral vascular disease) acute January 31 11:04am [facility] Work Phone: 1(727) 625-531301-29-2025 Evaluation note* Diagnosis Onset Date Resolution Status Admit Date Bilateral lower extremity edema acute November 01 10:09am PVD (peripheral vascular disease) acute November 01 10:09am [facility] Work Phone: 1(808) 965-586201-29-2025 Evaluation note* Diagnosis Onset Date Resolution Status Admit Date Bilateral lower extremity edema acute November 01 10:09am PVD (peripheral vascular disease) acute November 01 10:09am Bilateral lower extremity edema acute January 31, 2025 11:04am PVD (peripheral vascular disease) acute January 31, 2025 11:04am [facility] Work Phone: 1(293) 117-490904-17-2023 Discharge summary Author [facility] January 18, 2023 2:44pm Note Date/Time January 18, 2023 2:4 4pm [facility] Medical Records Department [address] [place] [address] Discharge Summary 01/18/23 1438 MR#: [id number] Acct: [id number] Name: NAJEL ROSS Rep #:[id number] : 1950 72 From: Kary Recio MD PCP: NILS CANTOR Status:ADM PAIGE [id number] Providers Date of Admission: 01/10/23 Date of [...] had NPH and so was transferred [facility] recently. * He was reviewed there [...] was confirmed from documentation he brought from [facility]. * Total aevf-ra-unhm time 17 minutes. Total time spent on [...] 270 mg PO DAILY supplement 01/10/23 omega 4-ayg-lyo-fish oil 1,000 mg (120 mg-180 mg) capsule [...] acid levels. He was transferred to [facility] where his symptoms were thought to [...] but this improved. Patient was called for detention and was discharged to the intermediate facility on 01/18/2023. He was discharged on p.o. lactulose. He is to follow-up with his primary care doctor and is to have monitoring of his ammonia level in the detention. Was referred to gastroenterology on outpatient basis [...] (Auto) 44.0 L, Lymph % (Auto) 38.8, Zavala % (Auto) 13.7 H, Eos % (Auto) [...] mg Capsule 200 mg PO TID omega 0-kbx-whg-fish oil 1,000 mg (120 mg-180 mg) Capsule 1 cap PO BID ferrous gluconate 270 mg (27 mg iron) Tablet 270 mg PO DAILY Discontinued acetaminophen 325 mg tablet 1,300 mg PO BID Label Comments: [facility] / [facility]E Referrals / Follow Up: NILS CANTOR [Other] NILS CANTOR [Other] Doctor,Your [Non-Staff] - 1 Day for another exam Disposition Disposition (needs filled in before D/C Order can be placed): Care Home Facility Charges/Coding Visit Charges Inpatient E&M: 65414 Disch Hosp >30min 01/18/23 1444 <Electronically signed by Kary Recio MD> Cosigner Signature (if applicable): CC: Dr. Kary Recio MD; NILS CANTOR~ Signed [facility] Work Phone: 1(308) 597-879104-17-[address] Recio [facility] January 18, 2023 2:38pm Note Date/Time January 18, 2023 2:3 8pm [facility] Medical Records Department [address] [place] [address] Transfer to [facility] MR#: [id number] Acct: [id number] Name: ANJEL ROSS Rep #:[id number] : [...] SERVICES PRIOR TO HIS/HER TRANSFER TO THE [facility]. 01/18/23 1438<Electronically signed by Kary Recio MD> [...] had NPH and so was transferred [facility] recently. * He was reviewed there [...] confirmed from documentation he brought from [facility]. * Total nqyh-wt-dgnt time 17 minutes. Total time spent on [...] at meals. Discharge Plan Admission Admit Date/Time: 04/09/23 09:22 Primary Reason for Your Visit: altered [...] mg Capsule 200 mg PO TID omega 9-azz-izz-fish oil 1,000 mg (120 mg-180 mg) Capsule 1 cap PO BID ferrous gluconate 270 mg (27 mg iron) Tablet 270 mg PO DAILY Discontinued acetaminophen 325 mg tablet 1,300 mg PO BID Label Comments: 4 TABLETS [facility]1300MG[facility] / DX:E Referrals / Follow Up: NILS CANTOR [Other] NILS CANTOR [Other] Doctor,Your [Non-Staff] - 1 Day for another exam Disposition Disposition (needs filled in before D/C Order can be placed): Care Home Facility 01/18/23 6888 <Electronically signed by Kary Recio MD> Cosigner Signature (if applicable): CC: Dr. Kary Recio MD; Dr. Nina Wilder MD; NILS CANTOR ~ [facility] Work Phone: 1(474) 913-375704-16-[address] Wilder [facility] January 17, 2023 3:08pm Note Date/Time January 17, 2023 7:4 6am [facility] Medical Records Department [address] [place] [address] Progress Note - Hospitalist 01/17/23 0746 MR#: [id number] Acct: [id number] Name: ANJEL ROSS Rep #:[id number] : 1950 72 From: Nina Wilder MD PCP: NILS CANTOR Status:ADM PAIGE Location: [place] [address] Reason for Visit Reason for Visit: Diagnoses [...] 41.2 L, Lymph % (Auto) 41.7 H, Zavala % (Auto) 13.0 H, Eos % (Auto) [...] 14:28 EDT Reading Location ID and State: [facility] / [place] , Service support , [employer] Rhythm [...] for their facility after his d[facility]c [facility] -PT recommends rehab/snf/tcu -Given mental health [...] [facility]. -[facility] was reviewed there and the [...] 30 mins Charges/Coding Visit Charges Inpatient E&M: 31556 Subs Hosp L2 01/17/23 9728 <Electronically signed by Nina Wilder MD> Cosigner Signature (if applicable): CC: ~ Signed [facility] Work Phone: 1(721) 406-891204-15-[address] Wilder [facility] January 16, 2023 11:52am Note Date/Time January 16, 2023 10: 27am [facility] Medical Records Department [address] [place] [address] Progress Note - Hospitalist 01/16/23 1026 MR#: [id number] Acct: [id number] Name: ANJEL ROSS Rep #:[id number] : 1950 72 From: Nina Wilder MD PCP: NILS CANTOR Status:ADM PAIGE Location: [place] [address] Reason for Visit Reason for Visit: Diagnoses [...] Neut % (Auto) 47.5, Lymph % (Auto)36.4, Zavala % (Auto) 12.1 H, Eos % (Auto) [...] [facility]. -He was reviewed there and the [...] 30 mins Charges/Coding Visit Charges Inpatient E&M: 09843 Subs Hosp L2 01/16/23 1150 <Electronically signed by Nina Wilder MD> Cosigner Signature (if applicable): CC: ~ Signed [facility] Work Phone: 1(985) 560-292104-14-[address] Wilder [facility] January 15, 2023 9:43am Note Date/Time January 15, 2023 9:4 3am [facility] Medical Records Department [address] [place] [address] Progress Note - Hospitalist 01/15/23 0941 MR#: [id number] Acct: [id number] Name: ANJEL ROSS Rep #:[id number] : 1950 72 From: Nina Wilder MD PCP: NILS CANTOR Status:ADM PAIGE Location: [place] [address] Reason for Visit Reason for Visit: Diagnoses [...] H, RDW Coeff of Ronna 13.2, Plt Gkoyl841, MPV 8.4, Immature Gran % (Auto) 1.600 H, Neut % (Auto) 49.3, Lymph % (Auto)34.4, Zavala % (Auto) 12.8 H, Eos % (Auto) [...] for their facility after his d/c from [facility] -PT recommends rehab/snf/tcu -Given mental health [...] [facility]. -[facility] was reviewed there and the [...] 20 mins Charges/Coding Visit Charges Inpatient E&M: 46959 Subs Hosp L1 01/15/23 0943 <Electronically signed by Nina Wilder MD> Cosigner Signature (if applicable): CC: ~ Signed [facility] Work Phone: 1(673) 246-401204-13-[address] Wilder [facility] January 14, 2023 1:37pm Note Date/Time January 14, 2023 8:3 9am [facility] Medical Records Department [address] [facility] [place] [address] Progress Note - Hospitalist 01/14/23 0838 MR#: [id number] Acct: [id number] Name: ANJEL ROSS Rep #:[id number] : 1950 72 From: Nina Wilder MD PCP: NILS CANTOR Status:ADM PAIGE Location: [place] [address] Reason for Visit Reason for Visit: Diagnoses [...] for their facility after his d/c from [employer] [facility] -PT recommends rehab/snf/tcu -Given mental health [...] [facility]. -He was reviewed there and the [...] 20 mins Charges/Coding Visit Charges Inpatient E&M: 90428 Subs Hosp L1 01/14/23 3507 <Electronically signed by Nina Wilder MD> Cosigner Signature (if applicable): CC: ~ Signed [facility] Work Phone: 1(298) 335-921004-12-[address] Wilder [facility] January 13, 2023 9:59am Note Date/Time January 13, 2023 9:5 9am [facility] Medical Records Department [address] [place] [address] Progress Note - Hospitalist 01/13/23 0956 MR#: [id number] Acct: [id number] Name: ANJEL ROSS Rep #:[id number] : 1950 72 From: Nina Wilder MD PCP: NILS CANTOR Status:ADM PAIGE Location: [place] [id number] Reason for Visit Reason for Visit: Diagnoses [...] for their facility after his d/c from [facility] -PT recommends rehab/snf/tcu -Given mental health [...] [facility]. -He was reviewed there and the [...] 30 mins Charges/Coding Visit Charges Inpatient E&M: 65646 Subs Hosp L2 01/13/23 0959 <Electronically signed by Nina Wilder MD> Cosigner Signature (if applicable): CC: ~ Signed [facility] Work Phone: 1(324) 725-124004-11-[address] Wilder [facility] January 12, 2023 8:57am Note Date/Time January 12, 2023 8:5 7am [facility] Medical Records Department [address] [place] [address] Progress Note - Hospitalist 01/12/23 0853 MR#: [id number] Acct: [id number] Name: ANJEL ROSS Rep #:[id number] : 1950 72 From: Nina Wilder MD PCP: NILS CANTOR Status:ADM PAIGE Location: [place] [address] Reason for Visit Reason for Visit: Diagnoses [...] % (Auto) 37.3 L, Lymph % (Auto)40.6, Zavala % (Auto) 17.9 H, Eos % (Auto) [...] [facility]. -He was reviewed there and the [...] 30 mins Charges/Coding Visit Charges Inpatient E&M: 34431 Subs Hosp L2 01/12/23 0857 <Electronically signed by Nina Wilder MD> Cosigner Signature (if applicable): CC: ~ Signed [facility] Work Phone: 1(175) 919-796104-10-[address] Wilder [facility] January 11, 2023 5:37pm Note Date/Time January 11, 2023 7:2 1am [facility] Medical Records Department [address] [place] [id number] Progress Note - Hospitalist 01/11/23 0721 MR#: [id number] Acct: [id number] Name: ANJEL ROSS Rep #:[id number] : 1950 72 From: Nina Wilder MD PCP: NILS CANTOR Status:ADM PAIGE Location: [place] [address]1 Reason for Visit Reason for Visit: Diagnoses [...] % (Auto) 44.8 L, Lymph % (Auto)35.5, Zavala % (Auto) 16.0 H, Eos % (Auto) [...] for their facility after his d/c from [facility] -PT recommends rehab/snf/tcu -Given mental health history [...] [facility] -[facility] and the [...] 30 mins Charges/Coding Visit Charges Inpatient E&M: 15128 Subs Hosp L2 01/11/23 1737 <Electronically signed by Nina Wilder MD> Cosigner Signature (if applicable): CC: ~ Signed [facility] Work Phone: 1(530) 307-130104-09-2023 History and physical note Author Dr. Recio [facility] January 10, 2023 3:34pm Note Date/Time January 10, 2023 9:22 am [facility] Medical Records Department [address] [place] [address] H&P Exam - Hospitalist 01/10/23 0911 MR#: [id number] Acct: [id number] Name: CODYANJEL CHAVEZ Rep #:[id number] : 1950 72 From: Kary Recio MD PCP: NILS CANTOR Status:ADM PAIGE Location: [place] [address] HPI - General General Date of Admission: 01/10/23 Date of Service: 01/10/23 Chief Complaint: weakness HPI Narrative ANJEL CODY, is a 72 M with a PMH [...] acid levels. He was transferred to [facility] where his symptoms were thought to [...] and generalized weakness and is for placement. ON LICENSE OF [facility] Medical History Anxiety Benign essential [...] DAILY supplement 01/10/23[History Last Taken Unknown] omega 6-zxt-gvp-fish oil 1,000 mg (120 mg-180 mg) capsule [...] Neut % (Auto) 53.9, Lymph % (Auto)25.6, Zavala % (Auto) 16.6 H, Eos % (Auto) [...] Clarity Clear, Urine pH 6.0, Ur Specific Brightwood 1.015, Urine Protein 15 H, Urine Glucose [...] 4:01 EDT Reading Location ID and State: [facility] / [place] , Service support , [...] had NPH and so was transferred [facility] recently. * He was reviewed there [...] confirmed from documentation he brought from [facility]. * Total xouk-zq-wlqx time 17 minutes. Total time spent on evaluation and management of patient, reviewing chart, discussing plan with patient, discussion with nursing and ancillary staff as well as documentation: 60 mins Charges/Coding Visit Charges Inpatient E&M: 74495 Init Hosp L2 Procedures Hospitalists Procedures: 07259 Advncd Care Plan 30 Min 01/10/23 1534 <Electronically signed by Kary Recio MD> Cosigner Signature (if applicable): CC: Dr. Kary Recio MD; NILS CANTOR~ Signed [facility] Work Phone: 1(886) 627-184604-09-2023 Discharge summary Author Breana Avila [facility] January 10, 2023 9:31am Note Date/Time January 10, 2023 3:30 am [facility] Medical Records Department [address] [place] [address] Emergency Department Summary 01/10/23 MR#: [id number] Acct: [id number] Name: ANJEL ROSS Rep #:[id number] : 1950 72 From: Hilario Malik MD PCP: NILS CANTOR Status:REG ER Location: ED ADDENDUM by Dr. Breana Avila DO on 01/10/23 at 0931 [facility] staff called into the ER to say that they cannot accept patient back to their facility as he is high risk for falls and too weak to go back to their facility it was felt he needed admitted and evaluated for intermediate facility placement. Case discussed with hospitalist to evaluate patientfor admission. 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 They recommended he be on valproic acid 1000 mg 3 times daily, and Keppra 1500 mg twice daily for his epilepsy. Apparently [facility] past day. There is no other information available at this time. The patient denies having any focal complaints. He initially thought he was at [facility], but he was redirectable and [place] was his second guess. 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 His urinalysis is negative for infection and [...] a higher level of care like a intermediate facility and he states no that he [...] % (Auto) 53.9 Lymph % (Auto) 25.6 Zavala % (Auto) 16.6 H Eos % (Auto) [...] Color Urine Clarity Urine pH Ur Specific Brightwood Urine Protein Urine Glucose (UA) Urine Ketones [...] (Auto) Neut % (Auto) Lymph % (Auto) Zavala % (Auto) Eos % (Auto) Baso % (Auto) Absolute Neuts (auto) Absolute Lymphs (auto) Nucleated RBC % Macrocytosis Sodium Potassium Chloride Carbon Dioxide Anion Gap BUN Creatinine Estim Creat Clear Calc Est GFR (MDRD) Af Amer Est GFR (MDRD) Non-Af BUN/Creatinine Ratio Glucose Calcium Troponin I High Sens Urine Color Yellow Urine Clarity Clear Urine pH 6.0 Ur Specific Brightwood 1.015 Urine Protein 15 H Urine Glucose [...] 4:01 EDT Reading Location ID and State: [facility] / [place] , Service support , Rhythm Strip Rhythm [...] capsule 10 mg PO QHS bismuth subsalicylate [[place] Bismuth] 262 mg/15 mL suspension 524 mg [...] offered higher level of care such as intermediate, and he declined/refuses. Ambulatory in ED with a walker at baseline. Disposition Disposition: Home, Self Care What to do if you have Problems For any increased pain, shortness of breath, bleeding, nausea or vomiting, chestpain, or any unexpected problems, contact your Primary Care Provider. Call [facility] ([phone]) or report to the closest Emergency Room. Call 911 if necessary. 01/10/23 0711 <Electronically signed by Hilario Malik MD> Cosigner Signature (if applicable): CC: NILS CANTOR ~ Signed [facility] Work Phone: 1(745) 310-112204-09-2023 Discharge summary Author Breana Avila [facility] January 10, 2023 9:31am Note Date/Time January 10, 2023 3:30 am [facility] Medical Records Department [address] [place] [address] [place] [address] Emergency Department Summary 01/10/23 MR#: [id number] Acct: [id number] Name: ANJEL ROSS Rep #:[id number] : 1950 72 From: Hilario Malik MD PCP: NILS CANTOR Status:REG ER Location: ED ADDENDUM by Dr. Breana Avila DO on 01/10/23 at 0931 [facility] staff called into the ER to say that they cannot accept patient back to their facility as he is high risk for falls and too weak to go back to their facility it was felt he needed admitted and evaluated for intermediate facility placement. Case discussed with hospitalist to [...] in person neurology, he was sent to [facility] they excepted him, they did not think he had NPH but rather that his ataxia was related to his high valproate levels. They recommended he be on valproic acid 1000 mg 3 times daily, and Keppra 1500 mg twice daily for his epilepsy. Apparently he just arrived back to assisted living from [facility] past day. There is no other information available at this time. The patient denies having any focal complaints. He initially thought he was at [facility], but he was redirectable and [place] was his second guess. 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 His urinalysis is negative for infection and [...] a higher level of care like a intermediate facility and he states no that he [...] % (Auto) 53.9 Lymph % (Auto) 25.6 Zavala % (Auto) 16.6 H Eos % (Auto) [...] Color Urine Clarity Urine pH Ur Specific Brightwood Urine Protein Urine Glucose (UA) Urine Ketones [...] (Auto) Neut % (Auto) Lymph % (Auto) Zavala % (Auto) Eos % (Auto) Baso % (Auto) Absolute Neuts (auto) Absolute Lymphs (auto) Nucleated RBC % Macrocytosis Sodium Potassium Chloride Carbon Dioxide Anion Gap BUN Creatinine Estim Creat Clear Calc Est GFR (MDRD) Af Amer Est GFR (MDRD) Non-Af BUN/Creatinine Ratio Glucose Calcium Troponin I High Sens Urine Color Yellow Urine Clarity Clear Urine pH 6.0 Ur Specific Brightwood 1.015 Urine Protein 15 H Urine Glucose [...] 4:01 EDT Reading Location ID and State: [facility] / [place] , Service support , Rhythm Strip Rhythm [...] capsule 10 mg PO QHS bismuth subsalicylate [[place] Bismuth] 262 mg/15 mL suspension 524 mg [...] offered higher level of care such as intermediate, and he declined/refuses. Ambulatory in ED with a walker at baseline. Disposition Disposition: Home, Self Care What to do if you have Problems For any increased pain, shortness of breath, bleeding, nausea or vomiting, chestpain, or any unexpected problems, contact your Primary Care Provider. Call [facility] ([phone]) or report to the closest Emergency Room. Call 911 if necessary. 01/10/23 0711 <Electronically signed by Hilario Malik MD> Cosigner Signature (if applicable): CC: NILS CANTOR ~ Signed [facility] Work Phone: 1([phone]) 888-983604-08-2023 NoteHNO ID: [id number] Author: Anitha Burnette RN Service: Nursing Author Type: Registered Nurse Type: Nursing Progress Note Filed: 01/09/2023 2:00 PM Note Text: Updated patient's sister, Cha, on status and discharge tonight.[facility]04-07-2023 NoteHNO ID: [id number] Author: Adán De MD Service: Neurology General Author Type: Physician Type: Plan of Care Filed: 01/08/2023 2:40 PM Note Text: Staff Addendum: I have seen the patient, performed a neurological examination and reviewed the records personally with the resident/midlevel above and agree with the documentation. Please see their note for details. 72 year old male with chronic gait difficulties who is presenting to [facility] as a transfer from [facility] [...] add on ammonia levels Home regimen in [facility] is incorrect, should not be on redundant therapy with both liquid and tab Depakote (likely 2 separate orders placed at different time frames), per epilepsy notes, he is to be on 1000 mg TID Outpatient follow up with epilepsy service post discharge Adán De MD [facility] NoteHNO ID: [id number] Author: Lorene Ortiz MD Service: Hospital Medicine [...] Date: 01/04/2023 Images were obtained outside of [facility] OT-Chest 1 View IMPORT Result Date: 01/04/2023 Images were obtained outside of [facility] Most recent EKG normal sinus rhythm [...] HTN, and KYA He was admitted to [facility] 5 days prior due to [...] NAME: Anjel Ross DATE: 01/08/2023 TIME: 12:14 [facility]02-13-[address] Sherman [facility] November 16, 2022 6:41pm Note Date/Time November 16, 2022 6:41pm [facility] Medical Records Department [address] [place] [address] Emergency Department Summary 11/16/22 MR#: [id number] Acct: [id number] Name: ANJEL ROSS Rep #:[id number] : 1950 72 From: Tate Sherman MD PCP: Becka Hines, STORE SPECIALISTWojciech Status: PRE ER Location: ED HPI History of Present Illness Chief Complaint: Male Pain/Injury Narrative Narrative: Patient presents with scrotal bleeding from the ECF. Patient has no complaints. Seems the bleeding had subsided upon ED presentation. [facility] Medical History Anxiety Benign essential [...] bismuth subsalicylate 262 mg/15 mL oral suspension ([place] Bismuth) 524 mg PO Q30- 60M PRN [...] capsule 10 mg PO QHS bismuth subsalicylate [[place] Bismuth] 262 mg/15 mL suspension 524 mg [...] (Reason: Congestion) Primary Care Provider: Becka Hines STORE SPECIALIST Referrals: Becka Hines STORE SPECIALIST, STORE SPECIALIST-C [Primary Care Provider] - Activity Restrictions/Additional Instructions: [...] your Primary Care Provider. Call [facility] ([phone]) or report to the closest Emergency Room. Call 911 if necessary. 11/16/22 184 <Electronically signed by Tate Sherman MD> Cosigner Signature (if applicable): CC: STORE SPECIALIST-C Becka Hines ~ Signed [facility] Work Phone: [phone]) 481-130712-27-2022 Miscellaneous Notes* Telephone Encounter - Yury Gerber [...] Please Fax Caller Contact Number: Pharmacy Name: [facility] Pharmacy Number: [phone] Generic/ brand: 30 or 90 day supply requested: 90 Last appointment: 03/06/22 Next Appointment: none Patient of Dr. Chung documented in [facility]22 NoteHNO ID: [id number] Author: Mateo Benton MD Service: ? Author Type: Physician Type: Progress Notes Filed: 07/31/2022 9:27 AM Note Text: Subjective: Patient is status post a colonoscopy completed at [facility] on 07/06/2022. Patient was noted [...] need to have another colonoscopy in 5 years.[facility] History of Present illness Narrative* Mateo Benton MD - 07/31/2022 9:23 AM EDT Subjective: Patient is status post a colonoscopy completed at [facility] on 07/06/2022. Patient was noted [...] colonoscopy in 5 years. documented in this encounterChildren[facility]10-[facility]-2022 Miscellaneous Notes* Telephone Encounter - Georgie Huitron - 07/14/2022 2:35 PM EDT They will call back to schedule.Georgie Alatorre Pss * Telephone Encounter - Elizabeth Ruth LPN - 07/14/2022 1:26 PM EDT Please call patient to schedule a virtual or office visit to view colonoscopy results. Thank you. Anjel# [phone] * Telephone Encounter - Silvia Huitron - 07/14/2022 1:05 PM EDT Patient called requesting results from colonoscopy. documented in this encounterChildren[facility]07-12-2022 NoteHNO ID: [id number] Author: Madelin Ferguson PA-C Service: ? Author Type: Physician Complaint Evaluation Supervisor Type: Progress Notes Filed: 04/27/2022 9:34 AM [...] colonoscopy 03/26/[address] Anjel Nagy at [facility]. Patient was noted to have [...] W/COLLJ SPEC WHEN PFRMD 03/25/[address] [facility] - COLSC FLX W/REMOVAL LESION [...] mg by mouth daily at bedtime. - Uhdwc-3-OPY-EPA-Fish Oil (FISH OIL) 1,000 mg (120 mg-180 [...] chloride (KLOR-CON) 20 mEq (more content not included)...[facility]06-10-[facility] Miscellaneous Notes* Telephone Encounter - Gerri De La Cruz RN - 03/13/2022 1:58 PM EDT Notified Silvia rx has been sent and a PA will be completed if needed. Dorothy Talley RN * Telephone Encounter - Miquel Obregon APRN.KRISTEN - 03/13/2022 1:36 PM EDT The following [...] Medication Concern Person Calling Silvia Rehman from [facility] Name of medication Depakote XR. Concern with medication Nurse advised pt is having difficulty swallowing pill and since XR she can't crush. Nurse is asking if can get non XR or liquid so it's not difficult for pt? Patient of Dr. Chung documented in this encounterChildren'[facility]06-03-2022 NoteHNO ID: [id number] Author: Nils Marie APRN.ROLL UP HELPER Service: ? Author Type: Nurse Practitioner Type: Progress Notes Filed: 03/10/2022 9:06 AM Note Text:[facility]06-03-2022 NoteHNO ID: [id number] Author: Nils Marie APRN.ROLL UP HELPER Service: ? Author Type: Nurse Practitioner Type: Progress Notes Filed: 03/10/2022 9:01 AM Note Text: [facility] VIRTUAL VISIT HISTORY OF [...] Retired. Lives in assisted living place in [place], [place] Driving: no Mood: ok Memory: poor [...] mg by mouth daily at bedtime. - Shuqp-7-HDN-EPA-Fish Oil (FISH OIL) 1,000 mg (120 mg-180 [...] OR W/O BRS SPEC 03/25/[address] [facility] - COLONS W/REM POLYP HT BX 03/26/2017 - EG (more content not included)...[facility]06-03-20[facility] History of Present illness Narrative* Nils Marie, EXPLOSIVE ORDNANCE HANDLER.ROLL UP HELPER - 03/06/2022 2:10 PM EDT [facility] VIRTUAL VISIT HISTORY OF [...] Retired. Lives in assisted living place in [place], [place] Driving: no Mood: ok Memory: poor [...] 10 mg by mouth daily at bedtime. Umjew-1-EWT-EPA-Fish Oil (FISH OIL) 1,000 mg (120 mg-180 [...] CIRCUMCISION,OTHR AGE 6 COLONOSCOP W/ OR W/O [facility] SPEC 09/11/2005 Colonoscopy COLONOSCOP W/ OR W/O [facility] SPEC 12/06/14 Colonoscopy COLONOSCOP W/ OR W/O [facility] SPEC 03/25/[address] [facility] COLONS W/REM POLYP HT BX [...] 03/06/2022 2:10 PM EDT documented in this encounterChildren'[facility]05-26-2022 Miscellaneous Notes* Telephone Encounter - Miquel Obregon APRN.CNP - 02/26/2022 1:33 PM EDT The following approved medication requests have been transmitted electronically. Signed Prescriptions Disp Refills levETIRAcetam (KEPPRA) 750 mg tablet 120 tablet 0 Si TABLETS (1,500MG) BY MOUTH 2 TIMES A DAY DX: / NURSE TO REORDER CHERIE: No Authorizing Provider: MIQUEL OBREGON APRN.CNP documented in this encounterChildren'[facility]05-06-2022 Miscellaneous Notes* Telephone Encounter - Miquel Obregon APRN.CNP - 02/06/2022 10:12 AM EDT The following approved medication requests have been transmitted electronically. Signed Prescriptions Disp Refills divalproex ER (DEPAKOTE ER) 500 mg 24 hr tablet 180 tablet 0 Sig: Take 2 tablets by mouth three times daily. CHERIE: No Authorizing Provider: MIQUEL OBREGON documented in this encounterChildren'S [facility]04-26-2016 History of Past illness Narrative* Problem Noted Date Resolved Date Obesity due to excess calories 01/28/2016 0 02/04/2017 Family history of ischemic heart disease 016 10/02/2020 Colon cancer 12/31/2014 02/07/2015 Overview: Laparoscopic cholecystectomy, laparoscopic right hemicolectomy. Dr. Anjel Nagy [facility] 01/21/15 Special screening for malignant [...] cholecystectomy, laparoscopic right hemicolectomy. Dr. Anjel Nagy [facility] 01/21/15 Special screening for malignant [...] cholecystectomy, laparoscopic right hemicolectomy. Dr. Anjel Nagy [facility] 01/21/15 Special screening for malignant [...] cholecystectomy, laparoscopic right hemicolectomy. Dr. Anjel Nagy [facility] 01/21/15 Special screening for malignant [...] cholecystectomy, laparoscopic right hemicolectomy. Dr. Anjel Nagy [facility] 01/21/15 Special screening for malignant neoplasms, colon 12/06/2014 12/06/2014 Occult blood in stools 11/22/2014 5 Gout 08/10/2014 08/24/2015 Medicare annual wellness visit, initial 11/09/19 14 11/20/2019 Convulsions 11/06/2005 10/02/2020 documented as of this encounter (statuses as of 07/31/2022) [facility] History of Past illness Narrative* Problem Noted Date Resolved Date Obesity due to excess calories 01/28/2016 0 02/04/2017 Family history of ischemic heart disease 016 10/02/2020 Colon cancer 12/31/2014 02/07/2015 Overview: Laparoscopic cholecystectomy, laparoscopic right hemicolectomy. Dr. Anjel Nagy 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)- Primary documented in [facility] encounter [facility] noteNo assessment information availableWooProtestant Hospital Work Phone: Evaluation note* Diagnosis Personal history of colon cancer- Primary Personal history of malignant neoplasm of large intestine History of colonic polyps Personal history of colonic polyps documented in this encounter [facility]* Diagnosis Onset Date Resolution Status Ataxia acute Hypokalemia acute Serum sodium valproate above therapeutic range acute Encounter for medical screening examination acute Weakness acute [facility] Work Phone: Evaluation note* Diagnosis Onset Date Resolution Status Ataxia acute Hypokalemia resolved Serum sodium valproate above therapeutic range resolved Encounter for medical screening examination acute Weakness acute [facility] Work Phone: Hospital Discharge instructions Additional Instructions You have a very small area of scrotal bleeding if this happens again put pressure on the scrotum for 15 minutes.[facility] Work Phone: Hospital Discharge instructions Additional Instructions Imaging of brain/head and low back and negative for nothing acute, old L1 compression fracture noted and stable.[facility] Work Phone: Hospital Discharge instructions Additional Instructions Patient again has a normal work-up including a normal valproic acid level. He was offered higher level of care such as intermediate, and he declined/refuses. Ambulatory in ED with a walker at baseline.[facility] Work Phone: Reason for referral (narrative)No reason for referral information availableWWilson Memorial Hospital Work Phone: Summary Purpose Family History No Family History Records Found Relationship Condition Age at Onset Recorded Date/T anh mother Chronic obstructive pulmonary disease Unk nown Coronary artery disease Unknown father Malignant neoplasm Unknown Cardiac disease Unknown Myocardial infarction Unknown aunt Coronary artery disease Unknown Advance Directives No Advanced Directives Records FoundDocuments on File Type Date Recorded 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 Advance Directive(s) 03/18/2020 12:37 PM Advance Directive(s) 02/21/2020 1:12 PM Advance Directive(s) 12/08/2019 4:35 PM Advance Directive(s) 05/05/2016 10:27 AM Advance Directive(s) 12/27/2015 9:39 AM Advance Directive(s) 12/13/2015 10:23 AM Advance Directive Response Recorded Date/ Time Advance Directives Yes May 27, 2018 9:42am Living Will Yes July 01, 2022 1:39pm Power of Finisher Screwdown Yes June 1:39pm Name of Medical Power of Finisher Screwdown MARLY DAVIDSONMorgan CONTI July 01, 2022 1:39pm Documents on File Type Date Recorded 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 Advance Directive(s) 05/05/2016 10:27 AM Advance Directive Response Recorded Date/ Time Name of Medical Power of Finisher Screwdown MARLY DAVIDSONLEY CONTI July 01, 2022 12:39pm Advance Directives Yes May 27, 2018 8:42am Living Will No August 11 3:00pm Power of Finisher Screwdown No August 11, 2022 3:00pm Advance Directive Response Recorded Date/ Time Name of Medical Power of Finisher Screwdown SUSHMA [place] Kristine CARMEN November 16, 2022 6:13pm Advance Directives Yes May 27, 2018 8:42am Living Will Yes November 16 6:13pm Power of Finisher Screwdown Yes November 16, 2022 6:13pm Advance Directive Response Recorded Date/ Time Name of Medical Power of Finisher Screwdown SUSHMA Qureshi CARMEN November 16, 2022 7:13pm Name of Medical Power of Finisher Screwdown unknown December 31, 2022 6:02am Advance Directives Yes May 27, 2018 9:42am Living Will Yes December 31, 2022 6:02am Power of Finisher Screwdown Yes December 31 6:02am Advance Directive Response Recorded Date/ Time Name of Medical Power of Finisher Screwdown SUSHMA MORALES November 16, 2022 7:13pm Name of Medical Power of Finisher Screwdown unknown December 31, 2022 6:02am Name of Medical Power of Finisher Screwdown DREA TOLBERTER January 04, 2023 8:30pm Name of Medical Power of Finisher Screwdown ? January 10, 2023 1:42am Advance Directives Yes May 27, 2018 9:42am Living Will Yes January 10, 2023 1:42am Power of Finisher Screwdown Yes January 10 1:42am Advance Directive Response Recorded Date/ Time Name of Medical Power of Finisher Screwdown SUSHMA MORALES November 16, 2022 7:13pm Name of Medical Power of Finisher Screwdown unknown December 31, 2022 6:02am Name of Medical Power of Finisher Screwdown DREA CONTI January 04, 2023 8:30pm Name of Medical Power of Finisher Screwdown Drea Conti (sushma) January 10, 2023 10:23am Advance Directives Yes May 27, 2018 9:42am Living Will Yes January 10, 2023 10:23am Power of Finisher Screwdown Yes January 10 10:23am Advance Directive Response Recorded Date/ Time Advance Directives Yes July 12, 2020 10:01am Living Will Yes January 10, 2023 10:23am Power of Finisher Screwdown Yes January 10 10:23am Advance Directive Response Recorded Date/ Time Advance Directives Yes July 12, 2020 9:01am Living Will Yes January 10, 2023 9:23am Power of Finisher Screwdown Yes January 10 9:23am Advance Directive Response [...] 5:00am PVD February 13, 2025 9:06a m [facility] February 28, 2025 5:0 0am [facility] LAB WORK April 03, 2025 5:0 0am SN[facility] LAB WORK April 24, 2025 4: 00am SN[facility] LAB WORK May 01, 2025 6: 05am SN[facility] LAB WORK May 08, 2025 4 :00am Reason for Visit Admit Date Bilateral lower extremity edema January 312024 11:04am PVD (peripheral vascular disease) January 31, 2025 11:04am Chief Complaint Admit Date SNF LAB WORK April 03, 2025 5:0 0am SN[facility] LAB WORK April 24, 2025 4: 00am SNF LAB WORK May 01, 2025 6: 05am SNF LAB WORK May 08, 2025 4 :00am SNF LAB WORK May 29, 2025 5:00am LABWORK June 05, 2025 5:00am SNF LAB WORK June 12 5:00am SNF LAB WORK June 26 5:00am Additional Source Comments (unrecognized sect ion and content) No Status Records FoundNo Status Records FoundNo Status Records FoundNo Status Records FoundNo Status Records Found INFORMATION SOURCE (unrecogn ized section and content) DATE CREATED AUTHOR 03/23/2018 [facility] DATE CREATED AUTHOR AUTHOR'S ORGANIZ ATION 08/01/2022 [facility] DATE CREATED AUTHOR AUTHOR'S ORGANIZ ATION 01/16/2023 [facility] DATE CREATED AUTHOR AUTHOR'S ORGANIZ ATION 04/27/2024 [facility] EPIC DATE CREATED AUTHOR AUTHOR'S ORGANIZ ATION 08/15/2025 [facility] Source Comments (unrecognize d section and [...] Care Teams (unrecognized sec tion and content) 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 Start Date End Date Maddie Cantor [address] [place] [address] PCP - General Internal Medicine 02/21/20 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 Specialty Start Date End Date Maddie Cantor [address] [place] [address] PCP - General Internal Medicine 02/21/20 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 Donovan Skaggs MD Attending Provider, Emergency Provi tsering Active Team Status: Inactive Member Role Status Dates Dr. Tate Sherman MD Emergency Provider Active No Primary Care Physician Primary Care Provider Active Team Status: Active Member Role Status Dates Becka Hines STORE SPECIALIST, STORE SPECIALIST-C Family Provider Active Dr. Maddie MACIEL, DO [...] Active Member Role Status Dates Becka Hines STORE SPECIALIST, STORE SPECIALIST-C Family Provider Active NILS CANTOR Primary Care [...] Active Member Role Status Dates Becka Hines STORE SPECIALIST, STORE SPECIALIST-C Family Provider Active [facility] Doctor Primary Care Provider Active Team Status: Inactive Member Role Status Dates Out of [facility] Doctor Primary Care Provider Active [facility] Attending Provider Acti ve Team Status: Inactive Member Role Status Dates Out of [facility] Doctor Primary Care Provider Active Dr. Avani MACIEL MD Attending Provider Active Team Status: Active Member Role Status Dates Out of [facility] Doctor Primary Care Provider Active Dr. Avani MACIEL MD Attending Provider Active Team Status: Inactive Member Role Status Dates Out of [facility] Doctor Primary Care Provider Active Dr. Avani MACIEL MD Attending Provider, Referring Provider Active Team Status: Active Member Role Status Dates Becka Kim Hines STORE SPECIALIST, STORE SPECIALIST-C Family Provider Active Dr. Avani Eduardo MD Primary Care Provider Active Team Status: Inactive Member Role Status Dates Out of [facility] Doctor Primary Care Provider Active Start: [...] BE BASED ON THE PRIMARY CLINICAL RECORDS. [employer] provides no warranty or guarantee of the accuracy or completeness of information in this document.
[2025-09-20 08:56] LABS: Hematocrit 41.1 % (40-54); Hemoglobin 13.4 g/dL (13.0-16.5); Mean Corp Hgb Conc 32.6 g/dL (32-36); Mean Corpuscular Volume 96.3 fL (80-94); Mean Platelet Vol. 9.3 fl (6.2-12.0); Platelet Count 199 K/mm3 (150-450); RBC Distribution Width CV 13.7 % (11.6-14.6); RBC Distribution Width SD 48.0 fl (35.1-43.9); Red Blood Count 4.27 M/mm3 (4.6-6.2); White Blood Count 6.3 K/mm3 (4.4-11.0)
[2025-09-20 09:30] LABS: Anion Gap 11 (5-15); BUN 10 mg/dL (4-19); BUN/Creat Ratio 12.5 RATIO (10-20); Calcium,Total 8.9 mg/dL (7.6-11.0); Carbon Dioxide 29.5 mmol/L (21.0-32.0); Chloride 97 mmol/L (98-108); Glucose 124 mg/dL (70-99); Magnesium 2.7 mg/dL (1.5-2.2); Potassium 3.8 mmol/L (3.3-5.1)
[2025-09-22 10:08] LABS: KEPPRA (LEVETIRACETAM) 44.7 ug/mL (10.0-40.0)
== END ==
LOC: OLS.SW 05:00
PROVIDERS: PCP Internal Medicine; Visit Provider Internal Medicine
DX: E11.9 Type 2 diabetes mellitus without complications (principal); G40.909 Epilepsy, unspecified, not intractable, without status epilepticus
CPT/HCPCS: 36415; 80048; 80177; 83735; 85027